=== PATIENT | female | born 1945 | race Caucasian/White ===

== ENCOUNTER 2017-06-17 10:07 | Observation (INO) | payer OTHER ==
--- OUTSIDE RECORDS SUMMARY | 2017-06-17 10:11 | XMS REPORT ---
:1945 [facility] [address] [place] [address] Care Team Providers Name Role Phone HIPOLITO ORR Unavailable Unavailable MITZI UGALDE Unavailable Unavailable DOROTHY MAGALLANES Unavailable Unavailable WILL TINAJERO Unavailable Unavailable Problems This patient has no known problems. Allergies, Adverse Reactions, Alerts This patient has no known allergies or adverse reactions. Medications This patient has no known medications. Results Test Description Test Time Test Comments Text Results Atomic Results Result Comments POCT-GLUCOSE METER 2016-12-16 08:26:00 Test Item Value Reference Range Comments POC-GLUCOSE METER (BEAKER) (test 175 mg/dL 70-110 TESTED AT [facility] [address] [facility] xkwr=1174) [facility] [address] [id number] 07:30:00 Test Item Value Reference Range Comments MAGNESIUM (BEAKER) (test 1.8 mg/dL 1.6-2.6 Specimen slightly hemolyzed aums=657) [id number] 07:30:00 Test Item Value Reference Range Comments PHOSPHORUS (BEAKER) (test 3.2 mg/dL 2.3-4.7 Specimen slightly hemolyzed fagm=240) BASIC METABOLIC [id number] 07:30:00 Test Item Value Reference Range Comments SODIUM (BEAKER) (test 138 meq/L 136-145 vjrh=829) POTASSIUM (BEAKER) (test 4.2 meq/L 3.5-5.1 Specimen slightly enoh=161) hemolyzed CHLORIDE (BEAKER) (test 108 meq/L 98-107 bqiu=415) CO2 (BEAKER) (test 23 meq/L 22-29 eeur=485) BLOOD UREA NITROGEN 6 mg/dL 7-21 (BEAKER) (test slfw=442) CREATININE (BEAKER) (test 0.83 mg/dL 0.57-1.25 Specimen slightly iqmq=845) hemolyzed GLUCOSE RANDOM (BEAKER) 145 mg/dL 70-105 (test lltc=746) CALCIUM (BEAKER) (test 9.4 mg/dL 8.4-10.2 wefy=024) EGFR (BEAKER) (test 68 mL/min/1.73 sq m ESTIMATED GFR IS NOT vlxy=6548) ACCURATE CREATININE CLEARANCE IN PREDICTING GLOMERULAR FILTRATION RATE. ESTIMATED GFR IS NOT APPLICABLE FOR DIALYSIS PATIENTS. CBC W/PLT COUNT & AUTO [id number] 06:50:00 Test Item Value Reference Range Comments WHITE BLOOD CELL COUNT (BEAKER) (test oncu=928) 5.5 K/ L 3.5-10.5 RED BLOOD CELL COUNT (BEAKER) (test ootl=120) 3.98 M/ L 3.93-5.22 HEMOGLOBIN (BEAKER) (test wpva=227) 10.3 GM/DL 11.2-15.7 HEMATOCRIT (BEAKER) (test pehy=168) 36.3 % 34.1-44.9 MEAN CORPUSCULAR VOLUME (BEAKER) (test kswy=105) 91.2 fL 79.4-94.8 MEAN CORPUSCULAR HEMOGLOBIN (BEAKER) (test 25.9 pg 25.6-32.2 umyt=789) MEAN CORPUSCULAR HEMOGLOBIN CONC (BEAKER) (test 28.4 GM/DL 32.2-35.5 dyfy=900) RED CELL DISTRIBUTION WIDTH (BEAKER) (test 16.4 % 11.7-14.4 cjxe=511) PLATELET COUNT (BEAKER) (test pojr=195) 354 K/CU MM 150-450 MEAN PLATELET VOLUME (BEAKER) (test bqoj=229) 9.9 fL 9.4-12.3 NUCLEATED RED BLOOD CELLS (BEAKER) (test 0 /100 WBC 0-0 cter=463) NEUTROPHILS RELATIVE PERCENT (BEAKER) (test 68 % mfvi=081) LYMPHOCYTES RELATIVE PERCENT (BEAKER) (test 14 % hgmg=433) MONOCYTES RELATIVE PERCENT (BEAKER) (test 11 % zlvq=267) EOSINOPHILS RELATIVE PERCENT (BEAKER) (test 6 % nhux=544) BASOPHILS RELATIVE PERCENT (BEAKER) (test 1 % gpff=558) NEUTROPHILS ABSOLUTE COUNT (BEAKER) (test 3.75 K/ L 1.56-6.13 ddwy=389) LYMPHOCYTES ABSOLUTE COUNT (BEAKER) (test 0.80 K/ L 1.18-3.74 yiqx=796) MONOCYTES ABSOLUTE COUNT (BEAKER) (test 0.60 K/ L 0.24-0.36 vwxg=887) EOSINOPHILS ABSOLUTE COUNT (BEAKER) (test 0.33 K/ L 0.04-0.36 mvou=383) BASOPHILS ABSOLUTE COUNT (BEAKER) (test 0.05 K/ L 0.01-0.08 vfcb=170) IMMATURE GRANULOCYTES-RELATIVE PERCENT (BEAKER) 0 % 0-1 (test jqcg=1740) POCT-GLUCOSE [id number] 21:15:00 Test Item Value Reference Range Comments POC-GLUCOSE METER (BEAKER) 246 mg/dL 70-110 TESTED AT [address] (test fece=2733) [place] [address] POCT-GLUCOSE [id number] 17:16:00 Test Item Value Reference Range Comments POC-GLUCOSE METER (BEAKER) 323 mg/dL 70-110 TESTED AT [address] (test ocud=1843) [place] [address] POCT-GLUCOSE [id number] 13:13:00 Test Item Value Reference Range Comments POC-GLUCOSE METER (BEAKER) 250 mg/dL 70-110 TESTED AT [address] (test pyyu=7830) [place] [address] POCT-GLUCOSE [id number] 08:26:00 Test Item Value Reference Range Comments POC-GLUCOSE METER (BEAKER) 261 mg/dL 70-110 TESTED AT [address] (test otgw=7812) [place] [id number] CALCIUM, [id number] 06:39:00 Test Item Value Reference Range Comments CALCIUM IONIZED (BEAKER) (test myar=791) 1.08 mmol/L 1.12-1.27 PH, BLOOD (BEAKER) (test ysiu=7150) 7.47 [id number] 05:53:00 Test Item Value Reference Range Comments PHOSPHORUS (BEAKER) (test isnp=888) 4.1 mg/dL 2.3-4.7 [id number] 05:53:00 Test Item Value Reference Range Comments MAGNESIUM (BEAKER) (test eyif=949) 1.7 mg/dL 1.6-2.6 BASIC METABOLIC [id number] 05:53:00 Test Item Value Reference Range Comments SODIUM (BEAKER) (test 138 meq/L 136-145 tuiu=403) POTASSIUM (BEAKER) (test 4.0 meq/L 3.5-5.1 udlv=327) CHLORIDE (BEAKER) (test 106 meq/L 98-107 snwh=263) CO2 (BEAKER) (test 25 meq/L 22-29 kknu=415) BLOOD UREA NITROGEN 7 mg/dL 7-21 (BEAKER) (test ogih=897) CREATININE (BEAKER) (test 0.92 mg/dL 0.57-1.25 xpga=670) GLUCOSE RANDOM (BEAKER) 213 mg/dL 70-105 (test fpyl=628) CALCIUM (BEAKER) (test 9.4 mg/dL 8.4-10.2 eojb=925) EGFR (BEAKER) (test 60 mL/min/1.73 sq m ESTIMATED GFR IS NOT owxs=6515) ACCURATE CREATININE CLEARANCE IN PREDICTING GLOMERULAR FILTRATION RATE. ESTIMATED GFR IS NOT APPLICABLE FOR DIALYSIS PATIENTS. CBC W/PLT COUNT & AUTO [id number] 05:32:00 Test Item Value Reference Range Comments WHITE BLOOD CELL COUNT (BEAKER) (test klzc=498) 6.9 K/ L 3.5-10.5 RED BLOOD CELL COUNT (BEAKER) (test vrxr=337) 3.90 M/ L 3.93-5.22 HEMOGLOBIN (BEAKER) (test zfgr=298) 10.2 GM/DL 11.2-15.7 HEMATOCRIT (BEAKER) (test hizh=987) 32.9 % 34.1-44.9 MEAN CORPUSCULAR VOLUME (BEAKER) (test ycfm=590) 84.4 fL 79.4-94.8 MEAN CORPUSCULAR HEMOGLOBIN (BEAKER) (test 26.2 pg 25.6-32.2 apmf=386) MEAN CORPUSCULAR HEMOGLOBIN CONC (BEAKER) (test 31.0 GM/DL 32.2-35.5 zqsd=226) RED CELL DISTRIBUTION WIDTH (BEAKER) (test 16.2 % 11.7-14.4 fgyi=806) PLATELET COUNT (BEAKER) (test iokr=561) 415 K/CU MM 150-450 MEAN PLATELET VOLUME (BEAKER) (test pvgc=160) 9.5 fL 9.4-12.3 NUCLEATED RED BLOOD CELLS (BEAKER) (test 0 /100 WBC 0-0 uoad=678) NEUTROPHILS RELATIVE PERCENT (BEAKER) (test 69 % xgnq=548) LYMPHOCYTES RELATIVE PERCENT (BEAKER) (test 14 % enwg=155) MONOCYTES RELATIVE PERCENT (BEAKER) (test 11 % rkph=000) EOSINOPHILS RELATIVE PERCENT (BEAKER) (test 5 % ukmj=929) BASOPHILS RELATIVE PERCENT (BEAKER) (test 1 % scre=510) NEUTROPHILS ABSOLUTE COUNT (BEAKER) (test 4.71 K/ L 1.56-6.13 qdka=507) LYMPHOCYTES ABSOLUTE COUNT (BEAKER) (test 0.98 K/ L 1.18-3.74 whnp=621) MONOCYTES ABSOLUTE COUNT (BEAKER) (test 0.74 K/ L 0.24-0.36 zfsv=605) EOSINOPHILS ABSOLUTE COUNT (BEAKER) (test 0.35 K/ L 0.04-0.36 cjrt=653) BASOPHILS ABSOLUTE COUNT (BEAKER) (test 0.07 K/ L 0.01-0.08 qppu=495) IMMATURE GRANULOCYTES-RELATIVE PERCENT (BEAKER) 0 % 0-1 (test xsvi=9317) POCT-GLUCOSE [id number] 22:58:00 Test Item Value Reference Range Comments POC-GLUCOSE METER (BEAKER) 390 mg/dL 70-110 Notified RN or MD Patient (test sqjc=9558) refused repeat test/TESTED AT [address] [address] POCT-GLUCOSE [id number] 21:18:00 Test Item Value Reference Range Comments POC-GLUCOSE METER (BEAKER) 404 mg/dL 70-110 Notified PITER FELIX/TESTED AT [facility] (test uxpi=9676) [address] [place] [address] POCT-GLUCOSE [id number] 17:45:00 Test Item Value Reference Range Comments POC-GLUCOSE METER (BEAKER) 217 mg/dL 70-110 TESTED AT [address] (test cfnu=1792) [facility] [address] POCT-GLUCOSE [id number] 12:07:00 Test Item Value Reference Range Comments POC-GLUCOSE METER (BEAKER) 209 mg/dL 70-110 TESTED AT [facility] [address] (test lgkz=4950) [facility] [address] HEMOGLOBIN [id number] 07:58:00 Test Item Value Reference Range Comments HEMOGLOBIN A1C (BEAKER) (test pjwb=679) 5.8 % 4.3-6.1 TSH/FREE T4 IF [id number] 05:30:00 Test Item Value Reference Range Comments THYROID STIMULATING HORMONE (BEAKER) (test 1.75 uIU/mL 0.35-4.94 yzbj=163) POCT-GLUCOSE [id number] 05:21:00 Test Item Value Reference Range Comments POC-GLUCOSE METER (BEAKER) 213 mg/dL 70-110 TESTED AT [facility] [address] (test fbpu=0866) [place] [id number] 05:11:00 Test Item Value Reference Range Comments PHOSPHORUS (BEAKER) (test kunf=198) 4.0 mg/dL 2.3-4.7 [id number] 05:11:00 Test Item Value Reference Range Comments MAGNESIUM (BEAKER) (test qdaw=720) 1.7 mg/dL 1.6-2.6 BASIC METABOLIC [id number] 05:11:00 Test Item Value Reference Range Comments SODIUM (BEAKER) (test 138 meq/L 136-145 hcso=127) POTASSIUM (BEAKER) (test 4.3 meq/L 3.5-5.1 vnuo=723) CHLORIDE (BEAKER) (test 104 meq/L 98-107 wdaq=903) CO2 (BEAKER) (test 26 meq/L 22-29 aiub=140) BLOOD UREA NITROGEN 7 mg/dL 7-21 (BEAKER) (test czlb=069) CREATININE (BEAKER) (test 0.93 mg/dL 0.57-1.25 kzny=790) GLUCOSE RANDOM (BEAKER) 173 mg/dL 70-105 (test kibp=535) CALCIUM (BEAKER) (test 9.6 mg/dL 8.4-10.2 xlbr=279) EGFR (BEAKER) (test 60 mL/min/1.73 sq m ESTIMATED GFR IS NOT fxwv=3885) ACCURATE CREATININE CLEARANCE IN PREDICTING GLOMERULAR FILTRATION RATE. ESTIMATED GFR IS NOT APPLICABLE FOR DIALYSIS PATIENTS. LIPID [id number] 05:11:00 Test Item Value Reference Range Comments TRIGLYCERIDES (BEAKER) (test ruzu=429) 197 mg/dL CHOLESTEROL (BEAKER) (test outg=737) 158 mg/dL HDL CHOLESTEROL (BEAKER) (test yshz=997) 29 mg/dL LDL CHOLESTEROL CALCULATED (BEAKER) (test 90 mg/dL iibz=628) Triglyceride Reference Range: Low Risk <150 Borderline 150- 199 High Risk 200-499 Very High Risk >=500Cholesterol Reference Range: Low Risk <200 Borderline 200-239 High Risk > 240HDL Cholesterol Reference Range: Low Risk >=60 High Risk <40LDL Cholesterol Reference Range: Optimal <100 Near Optimal 100-129 Borderline 130-159 High 160-189 Very High >=190CBC W/PLT COUNT & AUTO [id number] 04:48:00 Test Item Value Reference Range Comments WHITE BLOOD CELL COUNT (BEAKER) (test liej=995) 7.0 K/ L 3.5-10.5 RED BLOOD CELL COUNT (BEAKER) (test jbfz=493) 3.91 M/ L 3.93-5.22 HEMOGLOBIN (BEAKER) (test yrnh=343) 10.3 GM/DL 11.2-15.7 HEMATOCRIT (BEAKER) (test cuxu=009) 33.3 % 34.1-44.9 MEAN CORPUSCULAR VOLUME (BEAKER) (test iiag=372) 85.2 fL 79.4-94.8 MEAN CORPUSCULAR HEMOGLOBIN (BEAKER) (test 26.3 pg 25.6-32.2 gedd=963) MEAN CORPUSCULAR HEMOGLOBIN CONC (BEAKER) (test 30.9 GM/DL 32.2-35.5 vihp=642) RED CELL DISTRIBUTION WIDTH (BEAKER) (test 16.1 % 11.7-14.4 ujjj=165) PLATELET COUNT (BEAKER) (test nlrt=152) 473 K/CU MM 150-450 MEAN PLATELET VOLUME (BEAKER) (test efah=600) 9.7 fL 9.4-12.3 NUCLEATED RED BLOOD CELLS (BEAKER) (test 0 /100 WBC 0-0 wapq=222) NEUTROPHILS RELATIVE PERCENT (BEAKER) (test 64 % pczg=493) LYMPHOCYTES RELATIVE PERCENT (BEAKER) (test 18 % fqwp=469) MONOCYTES RELATIVE PERCENT (BEAKER) (test 11 % yjrh=119) EOSINOPHILS RELATIVE PERCENT (BEAKER) (test 5 % nafa=811) BASOPHILS RELATIVE PERCENT (BEAKER) (test 1 % fcdc=037) NEUTROPHILS ABSOLUTE COUNT (BEAKER) (test 4.50 K/ L 1.56-6.13 iodc=852) LYMPHOCYTES ABSOLUTE COUNT (BEAKER) (test 1.29 K/ L 1.18-3.74 zwdg=818) MONOCYTES ABSOLUTE COUNT (BEAKER) (test 0.77 K/ L 0.24-0.36 nbqi=244) EOSINOPHILS ABSOLUTE COUNT (BEAKER) (test 0.38 K/ L 0.04-0.36 sycl=242) BASOPHILS ABSOLUTE COUNT (BEAKER) (test 0.08 K/ L 0.01-0.08 cazz=730) IMMATURE GRANULOCYTES-RELATIVE PERCENT (BEAKER) 0 % 0-1 (test afmv=0239) CALCIUM, [id number] 04:13:00 Test Item Value Reference Range Comments CALCIUM IONIZED (BEAKER) (test bwol=832) 1.15 mmol/L 1.12-1.27 PH, BLOOD (BEAKER) (test ugwq=2110) 7.47 POCT-GLUCOSE [id number] 21:03:00 Test Item Value Reference Range Comments POC-GLUCOSE METER (BEAKER) 220 mg/dL 70-110 TESTED AT [address] (test uvuk=8952) [facility] [address] IRON, TIBC, % SAT. (WITHOUT FERRITIN)2016-12-13 19:01:00 Test Item Value Reference Range Comments IRON (BEAKER) (test epsh=835) 23 ug/dL 40-160 TOTAL IRON BINDING CAPACITY (BEAKER) (test 404 ug/dL 250-450 erih=872) IRON % SATURATION (2) (BEAKER) (test bbrx=0949) 6 % 20-55 POCT-GLUCOSE [id number] 17:23:00 Test Item Value Reference Range Comments POC-GLUCOSE METER (BEAKER) 371 mg/dL 70-110 TESTED AT [address] (test molp=3029) [facility] [address] POCT-GLUCOSE [id number] 05:33:00 Test Item Value Reference Range Comments POC-GLUCOSE METER (BEAKER) 227 mg/dL 70-110 TESTED AT [address] (test rwcg=8689) [facility] [address] POCT-GLUCOSE [id number] 20:59:00 Test Item Value Reference Range Comments POC-GLUCOSE METER (BEAKER) 266 mg/dL 70-110 TESTED AT [address] (test jrld=3907) [facility] [address] POCT-GLUCOSE [id number] 20:58:00 Test Item Value Reference Range Comments POC-GLUCOSE METER (BEAKER) 300 mg/dL 70-110 TESTED AT [address] (test ehka=0271) [facility] [address] POCT-GLUCOSE [id number] 20:58:00 Test Item Value Reference Range Comments POC-GLUCOSE METER (BEAKER) 177 mg/dL 70-110 TESTED AT [address] (test yujz=3085) [facility] [address] HEMORRHAGE IMAGING, [id number] 13:30:00FINAL REPORT PROCEDURE: HEMORRHAGE STUDY with RBCs CPT CODE: 20147 INDICATION: Gastrointestinal Bleeding PROTOCOL: 21.5 mCi of Tc-99m was injected intravenously as labeled autologous red blood cells. Flow images of the abdomen were obtained, followed by serial images for approximately 60 minutes. Additional images were obtained 6 hours after tracer injection. Additional images were obtained 24 hours after injection. FINDINGS: Early images showphysiological tracer distribution in the blood pool. Late images show mild tracer uptake in the right lower abdomen. IMPRESSION: Mild, interval hemorrhage. No specific bleeding site is identified, but the pattern suggests a source in the mid or distal small bowel. Signed: Sean Gayle MDReport Verified Date/Time: 12/12/2016 13:30:53 Reading Location: [address] Reading Room Electronically signed by: SEAN GAYLE MD on 01:30 PMPOCT-GLUCOSE [id number] 11:21:00 Test Item Value Reference Range Comments POC-GLUCOSE METER (BEAKER) 168 mg/dL 70-110 TESTED AT [address] (test ulle=7175) [facility] [address] POCT-GLUCOSE [id number] 11:21:00 Test Item Value Reference Range Comments POC-GLUCOSE METER (BEAKER) 184 mg/dL 70-110 TESTED AT [facility] [address] (test ydre=6424) [address] [facility] [address] BASIC METABOLIC [id number] 05:16:00 Test Item Value Reference Range Comments SODIUM (BEAKER) (test 141 meq/L 135-148 ofyd=571) POTASSIUM (BEAKER) (test 4.3 meq/L 3.6-5.5 kgsa=033) CHLORIDE (BEAKER) (test 105 meq/L 98-106 zbpk=551) CO2 (BEAKER) (test 25 meq/L 20-29 psww=283) BLOOD UREA NITROGEN 13 mg/dL 10-26 (BEAKER) (test scye=294) CREATININE (BEAKER) (test 0.90 mg/dL 0.50-1.20 ckrl=021) GLUCOSE RANDOM (BEAKER) 151 mg/dL 70-110 (test nwgc=513) CALCIUM (BEAKER) (test 9.4 mg/dL 8.5-10.5 zhot=586) EGFR (BEAKER) (test 62 mL/min/1.73 sq m ESTIMATED GFR IS NOT jofi=9167) ACCURATE CREATININE CLEARANCE IN PREDICTING GLOMERULAR FILTRATION RATE. ESTIMATED GFR IS NOT APPLICABLE FOR DIALYSIS PATIENTS. [id number] 05:10:00 Test Item Value Reference Range Comments MAGNESIUM (BEAKER) (test qdfb=841) 2.0 mg/dL 1.5-3.0 CBC W/PLT COUNT & AUTO [id number] 04:57:00 Test Item Value Reference Range Comments WHITE BLOOD CELL COUNT (BEAKER) (test hdlk=691) 8.4 K/ L 4.0-10.0 RED BLOOD CELL COUNT (BEAKER) (test oewf=575) 3.88 M/ L 4.00-5.00 HEMOGLOBIN (BEAKER) (test ejic=698) 10.5 GM/DL 12.0-15.0 HEMATOCRIT (BEAKER) (test yhvs=351) 32.1 % 36.0-45.0 MEAN CORPUSCULAR VOLUME (BEAKER) (test hgku=323) 82.7 fL 82.0-99.0 MEAN CORPUSCULAR HEMOGLOBIN (BEAKER) (test 27.1 pg 27.0-33.0 xbzt=121) MEAN CORPUSCULAR HEMOGLOBIN CONC (BEAKER) (test 32.7 GM/DL 32.0-36.0 uxgp=760) RED CELL DISTRIBUTION WIDTH (BEAKER) (test 18.1 % 10.3-14.2 olfa=343) PLATELET COUNT (BEAKER) (test uzea=850) 527 K/CU MM 150-430 MEAN PLATELET VOLUME (BEAKER) (test nwdj=916) 7.5 fL 6.5-10.5 NUCLEATED RED BLOOD CELLS (BEAKER) (test 0 /100 WBC 0-0 fkse=249) NEUTROPHILS RELATIVE PERCENT (BEAKER) (test 74 % bxhi=167) LYMPHOCYTES RELATIVE PERCENT (BEAKER) (test 13 % nivt=328) MONOCYTES RELATIVE PERCENT (BEAKER) (test 8 % zymc=740) EOSINOPHILS RELATIVE PERCENT (BEAKER) (test 5 % lish=699) BASOPHILS RELATIVE PERCENT (BEAKER) (test 1 % soxh=174) NEUTROPHILS ABSOLUTE COUNT (BEAKER) (test 6.20 K/ L 1.80-8.00 pevo=702) LYMPHOCYTES ABSOLUTE COUNT (BEAKER) (test 1.10 K/ L 1.48-4.50 civm=009) MONOCYTES ABSOLUTE COUNT (BEAKER) (test 0.60 K/ L 0.00-1.30 apbq=229) EOSINOPHILS ABSOLUTE COUNT (BEAKER) (test 0.40 K/ L 0.00-0.50 rljq=673) BASOPHILS ABSOLUTE COUNT (BEAKER) (test 0.10 K/ L 0.00-0.20 lrjj=553) POCT-GLUCOSE [id number] 17:02:00 Test Item Value Reference Range Comments POC-GLUCOSE METER (BEAKER) 177 mg/dL 70-110 TESTED AT [address] (test npmb=4559) [facility] [address] POCT-GLUCOSE [id number] 11:34:00 Test Item Value Reference Range Comments POC-GLUCOSE METER (BEAKER) 207 mg/dL 70-110 TESTED AT [address] (test vlpy=9658) [facility] [address] CBC W/PLT COUNT & AUTO [id number] 10:45:00 Test Item Value Reference Range Comments WHITE BLOOD CELL COUNT (BEAKER) (test nmhx=834) 7.3 K/ L 4.0-10.0 RED BLOOD CELL COUNT (BEAKER) (test djzi=457) 3.03 M/ L 4.00-5.00 HEMOGLOBIN (BEAKER) (test yyee=926) 7.8 GM/DL 12.0-15.0 HEMATOCRIT (BEAKER) (test xldz=832) 24.1 % 36.0-45.0 MEAN CORPUSCULAR VOLUME (BEAKER) (test rrdv=517) 79.6 fL 82.0-99.0 MEAN CORPUSCULAR HEMOGLOBIN (BEAKER) (test 25.7 pg 27.0-33.0 uvja=835) MEAN CORPUSCULAR HEMOGLOBIN CONC (BEAKER) (test 32.3 GM/DL 32.0-36.0 rack=423) RED CELL DISTRIBUTION WIDTH (BEAKER) (test 17.3 % 10.3-14.2 nbdi=367) PLATELET COUNT (BEAKER) (test lgxt=371) 581 K/CU MM 150-430 MEAN PLATELET VOLUME (BEAKER) (test gklx=925) 7.0 fL 6.5-10.5 NUCLEATED RED BLOOD CELLS (BEAKER) (test 0 /100 WBC 0-0 rixo=336) NEUTROPHILS RELATIVE PERCENT (BEAKER) (test 70 % qqjo=213) LYMPHOCYTES RELATIVE PERCENT (BEAKER) (test 17 % ofhc=886) MONOCYTES RELATIVE PERCENT (BEAKER) (test 8 % hhdj=809) EOSINOPHILS RELATIVE PERCENT (BEAKER) (test 5 % bpjs=197) BASOPHILS RELATIVE PERCENT (BEAKER) (test 1 % bwig=766) NEUTROPHILS ABSOLUTE COUNT (BEAKER) (test 5.10 K/ L 1.80-8.00 xaur=315) LYMPHOCYTES ABSOLUTE COUNT (BEAKER) (test 1.20 K/ L 1.48-4.50 rrrj=927) MONOCYTES ABSOLUTE COUNT (BEAKER) (test 0.60 K/ L 0.00-1.30 couc=857) EOSINOPHILS ABSOLUTE COUNT (BEAKER) (test 0.30 K/ L 0.00-0.50 dnyg=229) BASOPHILS ABSOLUTE COUNT (BEAKER) (test 0.10 K/ L 0.00-0.20 hvzo=702) (MANUAL DIFFERENTIAL)2016-12-11 10:45:00 Test Item Value Reference Range Comments TOTAL COUNTED (BEAKER) (test yufk=8183) WBC MORPHOLOGY (BEAKER) (test irxo=931) Normal PLT MORPHOLOGY (BEAKER) (test dacd=825) Normal ANISOCYTOSIS (BEAKER) (test gijs=076) 1+ few HYPOCHROMIA (BEAKER) (test vkow=919) 2+ moderate BASIC METABOLIC [id number] 09:40:00 Test Item Value Reference Range Comments SODIUM (BEAKER) (test 138 meq/L 135-148 uscw=092) POTASSIUM (BEAKER) (test 4.5 meq/L 3.6-5.5 vkxo=767) CHLORIDE (BEAKER) (test 105 meq/L 98-106 dxzn=512) CO2 (BEAKER) (test 25 meq/L 20-29 fepu=374) BLOOD UREA NITROGEN 16 mg/dL 10-26 (BEAKER) (test jiuk=498) CREATININE (BEAKER) (test 1.00 mg/dL 0.50-1.20 ywlw=888) GLUCOSE RANDOM (BEAKER) 168 mg/dL 70-110 (test uczx=951) CALCIUM (BEAKER) (test 9.1 mg/dL 8.5-10.5 imfk=243) EGFR (BEAKER) (test 55 mL/min/1.73 sq m ESTIMATED GFR IS NOT hgbi=8974) ACCURATE CREATININE CLEARANCE IN PREDICTING GLOMERULAR FILTRATION RATE. ESTIMATED GFR IS NOT APPLICABLE FOR DIALYSIS PATIENTS. [id number] 09:39:00 Test Item Value Reference Range Comments PHOSPHORUS (BEAKER) (test viym=994) 3.3 mg/dL 2.5-4.5 [id number] 09:34:00 Test Item Value Reference Range Comments MAGNESIUM (BEAKER) (test yxpt=070) 2.1 mg/dL 1.5-3.0 POCT-GLUCOSE [id number] 06:01:00 Test Item Value Reference Range Comments POC-GLUCOSE METER (BEAKER) 171 mg/dL 70-110 TESTED AT [address] (test rmtv=5445) [address] [facility] [id number] POCT-GLUCOSE [id number] 06:00:00 Test Item Value Reference Range Comments POC-GLUCOSE METER (BEAKER) 148 mg/dL 70-110 TESTED AT [address] (test fzbi=7933) [address] [facility] [id number] URINALYSIS W/ [id number] 05:01:00 Test Item Value Reference Range Comments COLOR (BEAKER) (test kcvy=436) Yellow CLARITY (BEAKER) (test ircv=454) Clear SPECIFIC GRAVITY UA (BEAKER) (test nexb=081) 1.020 1.001-1.035 PH UA (BEAKER) (test eksh=661) 5.5 5.0-8.0 PROTEIN UA (BEAKER) (test znjr=699) Negative Negative GLUCOSE UA (BEAKER) (test wccx=228) Negative Negative KETONES UA (BEAKER) (test caqz=646) Negative Negative BILIRUBIN UA (BEAKER) (test iuha=601) Negative Negative BLOOD UA (BEAKER) (test scuh=671) Negative Negative NITRITE UA (BEAKER) (test yfss=827) Negative Negative LEUKOCYTE ESTERASE UA (BEAKER) (test Negative Negative iddq=709) UROBILINOGEN UA (BEAKER) (test qluu=276) 0.2 mg/dL 0.2-1.0 BACTERIA (BEAKER) (test qlmu=537) Occasional RBC UA-MANUAL (BEAKER) (test ihek=3552) None Seen /HPF WBC UA-MANUAL (BEAKER) (test hblr=5080) <5 /HPF SQUAMOUS EPITHELIAL MANUAL (BEAKER) (test <5 /HPF jbjx=1405) SOURCE(BEAKER) (test ahbn=0097) RAD, CHEST, 1 VIEW, NON [id number] 21:04:00Reason for exam:->coughShould this be performed at the bedside?->YesFINAL REPORT AP view of the chest dated 12/10/2016 COMPARISON: November 25, 2016 CLINICAL INFORMATION: cough Comment: Heart is normal in size. Pulmonary vasculature is unremarkable. Lungs are clear. No pulmonary infiltrate or pleural effusion is present. Spinal stimulating deviceis seen overlying the mid thoracic spine. Impression: No active cardiopulmonary disease or intervalchange. Signed: Sam Sanchez Verified Date/Time: 12/10/2016 21:04:27 Reading Location: [address] Consult Reading Room OCCULT BLOOD, [id number] 20:24:00 Test Item Value Reference Range Comments FECAL OCCULT BLOOD (BEAKER) (test xdtm=960) Positive Negative CBC W/PLT COUNT & AUTO [id number] 20:10:00 Test Item Value Reference Range Comments WHITE BLOOD CELL COUNT (BEAKER) (test vqom=744) 14.8 K/ L 4.0-10.0 RED BLOOD CELL COUNT (BEAKER) (test xefk=843) 3.09 M/ L 4.00-5.00 HEMOGLOBIN (BEAKER) (test bxfs=316) 7.8 GM/DL 12.0-15.0 HEMATOCRIT (BEAKER) (test vaxd=120) 24.3 % 36.0-45.0 MEAN CORPUSCULAR VOLUME (BEAKER) (test jiit=441) 78.7 fL 82.0-99.0 MEAN CORPUSCULAR HEMOGLOBIN (BEAKER) (test 25.2 pg 27.0-33.0 rgql=914) MEAN CORPUSCULAR HEMOGLOBIN CONC (BEAKER) (test 32.1 GM/DL 32.0-36.0 sfno=110) RED CELL DISTRIBUTION WIDTH (BEAKER) (test 17.7 % 10.3-14.2 mfty=443) PLATELET COUNT (BEAKER) (test emvl=641) 784 K/CU MM 150-430 MEAN PLATELET VOLUME (BEAKER) (test lqkr=686) 7.7 fL 6.5-10.5 NUCLEATED RED BLOOD CELLS (BEAKER) (test 0 /100 WBC 0-0 abse=017) NEUTROPHILS RELATIVE PERCENT (BEAKER) (test 80 % vopk=139) LYMPHOCYTES RELATIVE PERCENT (BEAKER) (test 12 % ctlc=855) MONOCYTES RELATIVE PERCENT (BEAKER) (test 6 % xsjo=475) EOSINOPHILS RELATIVE PERCENT (BEAKER) (test 2 % himn=018) BASOPHILS RELATIVE PERCENT (BEAKER) (test 1 % bqxt=743) NEUTROPHILS ABSOLUTE COUNT (BEAKER) (test 11.80 K/ L 1.80-8.00 fext=927) LYMPHOCYTES ABSOLUTE COUNT (BEAKER) (test 1.70 K/ L 1.48-4.50 vjlf=992) MONOCYTES ABSOLUTE COUNT (BEAKER) (test 0.80 K/ L 0.00-1.30 qeml=482) EOSINOPHILS ABSOLUTE COUNT (BEAKER) (test 0.30 K/ L 0.00-0.50 zwux=158) BASOPHILS ABSOLUTE COUNT (BEAKER) (test 0.10 K/ L 0.00-0.20 aeiq=430) (MANUAL DIFFERENTIAL)2016-12-10 20:10:00 Test Item Value Reference Range Comments TOTAL COUNTED (BEAKER) (test ywef=1004) WBC MORPHOLOGY (BEAKER) (test dkvz=975) Normal LARGE PLT(BEAKER) (test vfmv=3344) Present GIANT PLATELETS (BEAKER) (test hcnr=346) Present ANISOCYTOSIS (BEAKER) (test fwak=122) 1+ few HYPOCHROMIA (BEAKER) (test huwy=700) 2+ moderate POLYCHROMATOPHILLIC RBCS(BEAKER) (test kcui=059) 1+ few [id number] 20:07:00 Test Item Value Reference Range Comments PROTIME (BEAKER) (test etkg=572) 9.8 seconds 9.3-12.0 INR (BEAKER) (test kzkj=365) 0.9 <=5.9 PARTIAL THROMBOPLASTIN TIME (BEAKER) (test 20.2 seconds 23.0-35.0 dopq=858) RECOMMENDED COUMADIN/WARFARIN INR THERAPY RANGESSTANDARD DOSE: 2.0 - 3.0 Includes: PROPHYLAXIS forvenous thrombosis, systemic embolization; TREATMENT for venous thrombosis and/or pulmonary embolus.HIGH RISK: Target INR is 2.5-3.5 for patients with mechanical heart valves.[id number] 20:07:00 Test Item Value Reference Range Comments LIPASE (BEAKER) (test mzqn=646) 37 U/L 6-51 COMPREHENSIVE METABOLIC [id number] 20:06:00 Test Item Value Reference Range Comments TOTAL PROTEIN (BEAKER) 7.2 gm/dL 6.0-8.5 (test tsds=347) ALBUMIN (BEAKER) (test 4.1 g/dL 3.5-5.0 tgnx=1039) ALKALINE PHOSPHATASE 78 U/L 30-115 (BEAKER) (test gyva=397) BILIRUBIN TOTAL (BEAKER) 0.4 mg/dL 0.1-1.2 (test xzvm=711) SODIUM (BEAKER) (test 136 meq/L 135-148 txcu=690) POTASSIUM (BEAKER) (test 4.5 meq/L 3.6-5.5 mnwa=132) CHLORIDE (BEAKER) (test 102 meq/L 98-106 zkvd=103) CO2 (BEAKER) (test 21 meq/L 20-29 zlkd=468) BLOOD UREA NITROGEN 20 mg/dL 10-26 (BEAKER) (test jsff=370) CREATININE (BEAKER) (test 1.20 mg/dL 0.50-1.20 gzbk=155) GLUCOSE RANDOM (BEAKER) 215 mg/dL 70-110 (test eqfv=177) CALCIUM (BEAKER) (test 9.7 mg/dL 8.5-10.5 jvnn=089) AST (SGOT) (BEAKER) (test 19 U/L 5-40 raia=339) ALT (SGPT) (BEAKER) (test 13 U/L 5-50 cmvg=275) EGFR (BEAKER) (test 44 mL/min/1.73 sq m ESTIMATED GFR IS NOT xaxb=3974) ACCURATE CREATININE CLEARANCE IN PREDICTING GLOMERULAR FILTRATION RATE. ESTIMATED GFR IS NOT APPLICABLE FOR DIALYSIS PATIENTS. BLOOD [id number] 06:00:00 Test Item Value Reference Range Comments CULTURE (BEAKER) (test cqea=7415) No growth in 5 days BLOOD [id number] 06:00:00 Test Item Value Reference Range Comments CULTURE (BEAKER) (test cbfo=0085) No growth in 5 days POCT-GLUCOSE [id number] 12:19:00 Test Item Value Reference Range Comments POC-GLUCOSE METER (BEAKER) 132 mg/dL 70-110 TESTED AT [address] (test mmij=3699) [place] [id number] POCT-GLUCOSE [id number] 11:19:00 Test Item Value Reference Range Comments POC-GLUCOSE METER (BEAKER) 222 mg/dL 70-110 TESTED AT [address] (test vhas=1127) [place] [id number] POCT-GLUCOSE [id number] 07:21:00 Test Item Value Reference Range Comments POC-GLUCOSE METER (BEAKER) 309 mg/dL 70-110 Notified PITER FELIX/TESTED AT [facility] (test coib=2463) [address] [place], [place] [id number] CBC W/PLT COUNT & AUTO [id number] 05:52:00 Test Item Value Reference Range Comments WHITE BLOOD CELL COUNT (BEAKER) (test csgf=013) 6.8 K/ L 3.5-10.5 RED BLOOD CELL COUNT (BEAKER) (test ltbx=973) 3.35 M/ L 3.93-5.22 HEMOGLOBIN (BEAKER) (test etwd=178) 8.8 GM/DL 11.2-15.7 HEMATOCRIT (BEAKER) (test wpwf=231) 29.2 % 34.1-44.9 MEAN CORPUSCULAR VOLUME (BEAKER) (test tfhr=507) 87.2 fL 79.4-94.8 MEAN CORPUSCULAR HEMOGLOBIN (BEAKER) (test 26.3 pg 25.6-32.2 eyny=586) MEAN CORPUSCULAR HEMOGLOBIN CONC (BEAKER) (test 30.1 GM/DL 32.2-35.5 jzbl=071) RED CELL DISTRIBUTION WIDTH (BEAKER) (test 14.8 % 11.7-14.4 zqlc=145) PLATELET COUNT (BEAKER) (test mueq=985) 285 K/CU MM 150-450 MEAN PLATELET VOLUME (BEAKER) (test iywa=440) 10.4 fL 9.4-12.3 NUCLEATED RED BLOOD CELLS (BEAKER) (test 0 /100 WBC 0-0 xesc=684) NEUTROPHILS RELATIVE PERCENT (BEAKER) (test 69 % xzsa=363) LYMPHOCYTES RELATIVE PERCENT (BEAKER) (test 15 % ztaj=061) MONOCYTES RELATIVE PERCENT (BEAKER) (test 9 % rnlz=651) EOSINOPHILS RELATIVE PERCENT (BEAKER) (test 6 % fgzc=856) BASOPHILS RELATIVE PERCENT (BEAKER) (test 1 % edbj=721) NEUTROPHILS ABSOLUTE COUNT (BEAKER) (test 4.66 K/ L 1.56-6.13 njnx=538) LYMPHOCYTES ABSOLUTE COUNT (BEAKER) (test 1.02 K/ L 1.18-3.74 rgqy=519) MONOCYTES ABSOLUTE COUNT (BEAKER) (test 0.61 K/ L 0.24-0.36 uglx=252) EOSINOPHILS ABSOLUTE COUNT (BEAKER) (test 0.39 K/ L 0.04-0.36 tzpe=189) BASOPHILS ABSOLUTE COUNT (BEAKER) (test 0.04 K/ L 0.01-0.08 mfjw=289) IMMATURE GRANULOCYTES-RELATIVE PERCENT (BEAKER) 0 % 0-1 (test oyor=6848) POCT-GLUCOSE [id number] 21:36:00 Test Item Value Reference Range Comments POC-GLUCOSE METER (BEAKER) 284 mg/dL 70-110 TESTED AT [address] (test isid=5910) [facility] [address] POCT-GLUCOSE [id number] 17:03:00 Test Item Value Reference Range Comments POC-GLUCOSE METER (BEAKER) 394 mg/dL 70-110 Notified PITER FELIX/TESTED AT [facility] (test faqu=4923) [address] [place] [address] POCT-GLUCOSE [id number] 11:47:00 Test Item Value Reference Range Comments POC-GLUCOSE METER (BEAKER) 332 mg/dL 70-110 Notified PITER FELIX/TESTED AT [facility] (test zpla=5792) [address] [place] [address] POCT-GLUCOSE [id number] 07:19:00 Test Item Value Reference Range Comments POC-GLUCOSE METER (BEAKER) 350 mg/dL 70-110 Notified PITER FELIX/TESTED AT [facility] (test onde=9794) [address] [place] [address] BASIC METABOLIC [id number] 05:27:00 Test Item Value Reference Range Comments SODIUM (BEAKER) (test 137 meq/L 136-145 feib=974) POTASSIUM (BEAKER) (test 4.1 meq/L 3.5-5.1 nzma=616) CHLORIDE (BEAKER) (test 106 meq/L 98-107 viva=721) CO2 (BEAKER) (test 23 meq/L 22-29 qaac=694) BLOOD UREA NITROGEN 9 mg/dL 7-21 (BEAKER) (test xeqx=565) CREATININE (BEAKER) (test 0.85 mg/dL 0.57-1.25 vkfu=510) GLUCOSE RANDOM (BEAKER) 284 mg/dL 70-105 (test tbuo=892) CALCIUM (BEAKER) (test 8.9 mg/dL 8.4-10.2 vykx=918) EGFR (BEAKER) (test 66 mL/min/1.73 sq m ESTIMATED GFR IS NOT vtmg=4019) ACCURATE CREATININE CLEARANCE IN PREDICTING GLOMERULAR FILTRATION RATE. ESTIMATED GFR IS NOT APPLICABLE FOR DIALYSIS PATIENTS. CBC W/PLT COUNT & AUTO [id number] 05:05:00 Test Item Value Reference Range Comments WHITE BLOOD CELL COUNT (BEAKER) (test dvsj=641) 5.7 K/ L 3.5-10.5 RED BLOOD CELL COUNT (BEAKER) (test chlw=711) 3.10 M/ L 3.93-5.22 HEMOGLOBIN (BEAKER) (test cbrh=550) 8.3 GM/DL 11.2-15.7 HEMATOCRIT (BEAKER) (test lpta=175) 26.9 % 34.1-44.9 MEAN CORPUSCULAR VOLUME (BEAKER) (test wamt=494) 86.8 fL 79.4-94.8 MEAN CORPUSCULAR HEMOGLOBIN (BEAKER) (test 26.8 pg 25.6-32.2 vmno=851) MEAN CORPUSCULAR HEMOGLOBIN CONC (BEAKER) (test 30.9 GM/DL 32.2-35.5 xufm=709) RED CELL DISTRIBUTION WIDTH (BEAKER) (test 14.8 % 11.7-14.4 afll=401) PLATELET COUNT (BEAKER) (test rmpp=902) 254 K/CU MM 150-450 MEAN PLATELET VOLUME (BEAKER) (test lcqg=649) 10.6 fL 9.4-12.3 NUCLEATED RED BLOOD CELLS (BEAKER) (test 0 /100 WBC 0-0 iioh=662) NEUTROPHILS RELATIVE PERCENT (BEAKER) (test 69 % wlfq=947) LYMPHOCYTES RELATIVE PERCENT (BEAKER) (test 16 % nzzu=041) MONOCYTES RELATIVE PERCENT (BEAKER) (test 8 % enew=330) EOSINOPHILS RELATIVE PERCENT (BEAKER) (test 5 % jpkz=843) BASOPHILS RELATIVE PERCENT (BEAKER) (test 1 % gfyt=726) NEUTROPHILS ABSOLUTE COUNT (BEAKER) (test 3.92 K/ L 1.56-6.13 nygf=623) LYMPHOCYTES ABSOLUTE COUNT (BEAKER) (test 0.92 K/ L 1.18-3.74 vjgk=003) MONOCYTES ABSOLUTE COUNT (BEAKER) (test 0.46 K/ L 0.24-0.36 pgua=675) EOSINOPHILS ABSOLUTE COUNT (BEAKER) (test 0.30 K/ L 0.04-0.36 qffj=763) BASOPHILS ABSOLUTE COUNT (BEAKER) (test 0.05 K/ L 0.01-0.08 frji=243) IMMATURE GRANULOCYTES-RELATIVE PERCENT (BEAKER) 0 % 0-1 (test hgzo=0442) POCT-GLUCOSE [id number] 22:29:00 Test Item Value Reference Range Comments POC-GLUCOSE METER (BEAKER) 256 mg/dL 70-110 TESTED AT [address] (test vztn=5791) [place] [address] POCT-GLUCOSE [id number] 18:52:00 Test Item Value Reference Range Comments POC-GLUCOSE METER (BEAKER) 366 mg/dL 70-110 Notified PITER FELIX/TESTED AT [facility] (test vjoj=3527) [address] [place] [address] POCT-GLUCOSE [id number] 12:02:00 Test Item Value Reference Range Comments POC-GLUCOSE METER (BEAKER) 399 mg/dL 70-110 Notified PITER FELIX/TESTED AT [facility] (test acym=6123) [address] [place] [address] POCT-GLUCOSE [id number] 09:06:00 Test Item Value Reference Range Comments POC-GLUCOSE METER (BEAKER) 236 mg/dL 70-110 TESTED AT [address] (test xssn=4370) [place] [id number] POCT-GLUCOSE [id number] 08:28:00 Test Item Value Reference Range Comments POC-GLUCOSE METER (BEAKER) 271 mg/dL 70-110 TESTED AT [address] (test zpch=3537) [place] [address] POCT-GLUCOSE [id number] 06:31:00 Test Item Value Reference Range Comments POC-GLUCOSE METER (BEAKER) 236 mg/dL 70-110 TESTED AT [address] (test zvco=0424) [place] [address] BASIC METABOLIC [id number] 05:14:00 Test Item Value Reference Range Comments SODIUM (BEAKER) (test 139 meq/L 136-145 bomc=436) POTASSIUM (BEAKER) (test 4.2 meq/L 3.5-5.1 ctcl=962) CHLORIDE (BEAKER) (test 106 meq/L 98-107 vxkc=654) CO2 (BEAKER) (test 27 meq/L 22-29 piyy=538) BLOOD UREA NITROGEN 9 mg/dL 7-21 (BEAKER) (test knjm=157) CREATININE (BEAKER) (test 0.93 mg/dL 0.57-1.25 fwmv=911) GLUCOSE RANDOM (BEAKER) 257 mg/dL 70-105 (test hgel=140) CALCIUM (BEAKER) (test 8.9 mg/dL 8.4-10.2 qhhf=386) EGFR (BEAKER) (test 60 mL/min/1.73 sq m ESTIMATED GFR IS NOT bkzz=2910) ACCURATE CREATININE CLEARANCE IN PREDICTING GLOMERULAR FILTRATION RATE. ESTIMATED GFR IS NOT APPLICABLE FOR DIALYSIS PATIENTS. HEMOGLOBIN AND [id number] 05:02:00 Test Item Value Reference Range Comments HEMOGLOBIN (BEAKER) (test mfzv=024) 7.9 GM/DL 11.2-15.7 HEMATOCRIT (BEAKER) (test ppsk=949) 25.5 % 34.1-44.9 POCT-GLUCOSE [id number] 22:05:00 Test Item Value Reference Range Comments POC-GLUCOSE METER (BEAKER) 235 mg/dL 70-110 TESTED AT [address] (test khes=6717) [place] [address] POCT-GLUCOSE [id number] 21:56:00 Test Item Value Reference Range Comments POC-GLUCOSE METER (BEAKER) 274 mg/dL 70-110 TESTED AT [address] (test ysdo=0984) [place] [address] HEMOGLOBIN AND [id number] 21:00:00 Test Item Value Reference Range Comments HEMOGLOBIN (BEAKER) (test rxov=712) 7.9 GM/DL 11.2-15.7 HEMATOCRIT (BEAKER) (test mcwv=009) 26.1 % 34.1-44.9 POCT-GLUCOSE [id number] 17:28:00 Test Item Value Reference Range Comments POC-GLUCOSE METER (BEAKER) 291 mg/dL 70-110 TESTED AT [address] (test uccn=4147) [place] [address] VANCOMYCIN LEVEL, [id number] 14:15:00 Test Item Value Reference Range Comments VANCOMYCIN TROUGH (BEAKER) (test vufi=448) 18.1 ug/mL 10.0-20.0 HEMOGLOBIN AND [id number] 13:53:00 Test Item Value Reference Range Comments HEMOGLOBIN (BEAKER) (test qgzc=757) 8.6 GM/DL 11.2-15.7 HEMATOCRIT (BEAKER) (test kpin=644) 28.0 % 34.1-44.9 POCT-GLUCOSE [id number] 06:09:00 Test Item Value Reference Range Comments POC-GLUCOSE METER (BEAKER) 205 mg/dL 70-110 TESTED AT [facility] [address] [facility] (test eihi=1525) [facility] [address] BASIC METABOLIC [id number] 03:51:00 Test Item Value Reference Range Comments SODIUM (BEAKER) (test 134 meq/L 136-145 uccd=366) POTASSIUM (BEAKER) (test 4.4 meq/L 3.5-5.1 Specimen slightly rvbl=144) hemolyzed CHLORIDE (BEAKER) (test 105 meq/L 98-107 tduh=075) CO2 (BEAKER) (test 22 meq/L 22-29 aiwu=814) BLOOD UREA NITROGEN 8 mg/dL 7-21 (BEAKER) (test sxcz=209) CREATININE (BEAKER) (test 0.96 mg/dL 0.57-1.25 Specimen slightly xfeu=228) hemolyzed GLUCOSE RANDOM (BEAKER) 196 mg/dL 70-105 (test ruty=258) CALCIUM (BEAKER) (test 8.4 mg/dL 8.4-10.2 wkyy=754) EGFR (BEAKER) (test 58 mL/min/1.73 sq m ESTIMATED GFR IS NOT escs=2995) ACCURATE CREATININE CLEARANCE IN PREDICTING GLOMERULAR FILTRATION RATE. ESTIMATED GFR IS NOT APPLICABLE FOR DIALYSIS PATIENTS. CBC W/PLT COUNT & AUTO [id number] 03:28:00 Test Item Value Reference Range Comments WHITE BLOOD CELL COUNT (BEAKER) (test spuh=229) 6.2 K/ L 3.5-10.5 RED BLOOD CELL COUNT (BEAKER) (test eitx=356) 2.95 M/ L 3.93-5.22 HEMOGLOBIN (BEAKER) (test liul=427) 7.9 GM/DL 11.2-15.7 HEMATOCRIT (BEAKER) (test ytsu=985) 25.4 % 34.1-44.9 MEAN CORPUSCULAR VOLUME (BEAKER) (test fhcl=969) 86.1 fL 79.4-94.8 MEAN CORPUSCULAR HEMOGLOBIN (BEAKER) (test 26.8 pg 25.6-32.2 yypc=079) MEAN CORPUSCULAR HEMOGLOBIN CONC (BEAKER) (test 31.1 GM/DL 32.2-35.5 hybd=952) RED CELL DISTRIBUTION WIDTH (BEAKER) (test 15.2 % 11.7-14.4 tbpe=340) PLATELET COUNT (BEAKER) (test tndl=914) 256 K/CU MM 150-450 MEAN PLATELET VOLUME (BEAKER) (test uxxq=128) 9.7 fL 9.4-12.3 NUCLEATED RED BLOOD CELLS (BEAKER) (test 0 /100 WBC 0-0 losq=002) NEUTROPHILS RELATIVE PERCENT (BEAKER) (test 71 % rvux=564) LYMPHOCYTES RELATIVE PERCENT (BEAKER) (test 12 % fjya=243) MONOCYTES RELATIVE PERCENT (BEAKER) (test 11 % ojyo=883) EOSINOPHILS RELATIVE PERCENT (BEAKER) (test 6 % hahw=172) BASOPHILS RELATIVE PERCENT (BEAKER) (test 1 % wykk=386) NEUTROPHILS ABSOLUTE COUNT (BEAKER) (test 4.40 K/ L 1.56-6.13 ghfm=461) LYMPHOCYTES ABSOLUTE COUNT (BEAKER) (test 0.72 K/ L 1.18-3.74 nlxb=265) MONOCYTES ABSOLUTE COUNT (BEAKER) (test 0.68 K/ L 0.24-0.36 jjgh=087) EOSINOPHILS ABSOLUTE COUNT (BEAKER) (test 0.38 K/ L 0.04-0.36 eihd=628) BASOPHILS ABSOLUTE COUNT (BEAKER) (test 0.04 K/ L 0.01-0.08 faiy=406) IMMATURE GRANULOCYTES-RELATIVE PERCENT (BEAKER) 0 % 0-1 (test aktz=5691) POCT-GLUCOSE [id number] 00:46:00 Test Item Value Reference Range Comments POC-GLUCOSE METER (BEAKER) 331 mg/dL 70-110 TESTED AT [facility] [address] [facility] (test vzhm=2365) [facility] [address] HEMOGLOBIN AND [id number] 23:35:00 Test Item Value Reference Range Comments HEMOGLOBIN (BEAKER) (test qlbj=255) 8.0 GM/DL 11.2-15.7 HEMATOCRIT (BEAKER) (test zgxr=528) 24.9 % 34.1-44.9 POCT-GLUCOSE [id number] 18:09:00 Test Item Value Reference Range Comments POC-GLUCOSE METER (BEAKER) 391 mg/dL 70-110 Notified PITER FELIX/TESTED AT [facility] (test bjel=2941) [facility] [address] HEMOGLOBIN AND [id number] 16:39:00 Test Item Value Reference Range Comments HEMOGLOBIN (BEAKER) (test bmkb=862) 6.7 GM/DL 11.2-15.7 HEMATOCRIT (BEAKER) (test pplr=010) 22.4 % 34.1-44.9 POCT-GLUCOSE [id number] 12:39:00 Test Item Value Reference Range Comments POC-GLUCOSE METER (BEAKER) 238 mg/dL 70-110 TESTED AT [place] [address] [facility] (test lccb=5003) [facility] [address] HEMOGLOBIN AND [id number] 11:15:00 Test Item Value Reference Range Comments HEMOGLOBIN (BEAKER) (test xqdg=940) 7.5 GM/DL 11.2-15.7 HEMATOCRIT (BEAKER) (test bdtm=383) 24.9 % 34.1-44.9 CBC W/PLT COUNT & AUTO [id number] 07:49:00 Test Item Value Reference Range Comments WHITE BLOOD CELL COUNT (BEAKER) (test elwi=555) 12.0 K/ L 3.5-10.5 RED BLOOD CELL COUNT (BEAKER) (test sgzg=420) 2.12 M/ L 3.93-5.22 HEMOGLOBIN (BEAKER) (test upwz=841) 5.5 GM/DL 11.2-15.7 HEMATOCRIT (BEAKER) (test xfku=360) 18.8 % 34.1-44.9 MEAN CORPUSCULAR VOLUME (BEAKER) (test hwqf=510) 88.7 fL 79.4-94.8 MEAN CORPUSCULAR HEMOGLOBIN (BEAKER) (test 25.9 pg 25.6-32.2 omlc=012) MEAN CORPUSCULAR HEMOGLOBIN CONC (BEAKER) (test 29.3 GM/DL 32.2-35.5 amzt=781) RED CELL DISTRIBUTION WIDTH (BEAKER) (test 16.0 % 11.7-14.4 hyzn=565) PLATELET COUNT (BEAKER) (test pkbe=146) 301 K/CU MM 150-450 MEAN PLATELET VOLUME (BEAKER) (test arkn=467) 10.3 fL 9.4-12.3 NUCLEATED RED BLOOD CELLS (BEAKER) (test 0 /100 WBC 0-0 wgqp=309) NEUTROPHILS RELATIVE PERCENT (BEAKER) (test 89 % bzzs=867) LYMPHOCYTES RELATIVE PERCENT (BEAKER) (test 4 % xvgd=585) MONOCYTES RELATIVE PERCENT (BEAKER) (test 5 % roin=686) EOSINOPHILS RELATIVE PERCENT (BEAKER) (test 1 % updt=827) BASOPHILS RELATIVE PERCENT (BEAKER) (test 0 % fuhm=137) NEUTROPHILS ABSOLUTE COUNT (BEAKER) (test 10.60 K/ L 1.56-6.13 zoed=600) LYMPHOCYTES ABSOLUTE COUNT (BEAKER) (test 0.50 K/ L 1.18-3.74 qodo=476) MONOCYTES ABSOLUTE COUNT (BEAKER) (test 0.64 K/ L 0.24-0.36 ptcl=256) EOSINOPHILS ABSOLUTE COUNT (BEAKER) (test 0.14 K/ L 0.04-0.36 ofck=872) BASOPHILS ABSOLUTE COUNT (BEAKER) (test 0.02 K/ L 0.01-0.08 dzqb=443) IMMATURE GRANULOCYTES-RELATIVE PERCENT (BEAKER) 0 % 0-1 (test vxay=5529) POCT-GLUCOSE [id number] 06:45:00 Test Item Value Reference Range Comments POC-GLUCOSE METER (BEAKER) 205 mg/dL 70-110 TESTED AT [facility] [address] [facility] (test iwef=1148) [facility] [address] LACTIC ACID, VENOUS, WHOLE [id number] 01:37:00 Test Item Value Reference Range Comments LACTATE BLOOD VENOUS (2) (BEAKER) (test 1.9 mmol/L 0.5-2.2 jhcz=5223) Effective 07/31/2015: Units/Reference Range ChangeNew: 0.5-2.2 mmol/L Previous: 5 -20 mg/dLCOMPREHENSIVE METABOLIC [id number] 00:19:00 Test Item Value Reference Range Comments TOTAL PROTEIN (BEAKER) 6.8 gm/dL 6.0-8.3 (test ccxi=353) ALBUMIN (BEAKER) (test 3.9 g/dL 3.5-5.0 zhij=0879) ALKALINE PHOSPHATASE 78 U/L 40-150 (BEAKER) (test koxb=522) BILIRUBIN TOTAL (BEAKER) 0.5 mg/dL 0.2-1.2 (test iesh=514) SODIUM (BEAKER) (test 140 meq/L 136-145 ichy=751) POTASSIUM (BEAKER) (test 4.3 meq/L 3.5-5.1 civa=220) CHLORIDE (BEAKER) (test 107 meq/L 98-107 jonv=194) CO2 (BEAKER) (test 21 meq/L 22-29 nruq=942) BLOOD UREA NITROGEN 12 mg/dL 7-21 (BEAKER) (test khzf=856) CREATININE (BEAKER) (test 1.18 mg/dL 0.57-1.25 mkos=663) GLUCOSE RANDOM (BEAKER) 178 mg/dL 70-105 (test ojbe=972) CALCIUM (BEAKER) (test 9.2 mg/dL 8.4-10.2 kjbm=051) AST (SGOT) (BEAKER) (test 15 U/L 5-34 pont=469) ALT (SGPT) (BEAKER) (test 14 U/L 6-55 djcj=676) EGFR (BEAKER) (test 45 mL/min/1.73 sq m ESTIMATED GFR IS NOT hyrs=6795) ACCURATE CREATININE CLEARANCE IN PREDICTING GLOMERULAR FILTRATION RATE. ESTIMATED GFR IS NOT APPLICABLE FOR DIALYSIS PATIENTS. [id number] 00:17:00 Test Item Value Reference Range Comments PHOSPHORUS (BEAKER) (test qqqb=674) 3.2 mg/dL 2.3-4.7 [id number] 00:17:00 Test Item Value Reference Range Comments MAGNESIUM (BEAKER) (test mddn=858) 2.1 mg/dL 1.6-2.6 POCT-GLUCOSE [id number] 00:17:00 Test Item Value Reference Range Comments POC-GLUCOSE METER (BEAKER) 200 mg/dL 70-110 TESTED AT [facility] [address] [facility] (test lexp=9708) [facility] [address] PROTHROMBIN [id number] 00:07:00 Test Item Value Reference Range Comments PROTIME (BEAKER) (test kavd=975) 16.1 seconds 11.7-14.7 INR (BEAKER) (test epeu=617) 1.3 <=5.9 RECOMMENDED COUMADIN/WARFARIN INR THERAPY RANGESSTANDARD DOSE: 2.0 - 3.0 Includes: PROPHYLAXIS forvenous thrombosis, systemic embolization; TREATMENT for venous thrombosis and/or pulmonary embolus.HIGH RISK: Target INR is 2.5-3.5 for patients with mechanical heart valves.CBC W/PLT COUNT & AUTO [id number] 00:03:00 Test Item Value Reference Range Comments WHITE BLOOD CELL COUNT (BEAKER) (test szwb=748) 14.3 K/ L 3.5-10.5 RED BLOOD CELL COUNT (BEAKER) (test zvnu=447) 2.61 M/ L 3.93-5.22 HEMOGLOBIN (BEAKER) (test zslf=788) 6.9 GM/DL 11.2-15.7 HEMATOCRIT (BEAKER) (test rmuo=582) 23.6 % 34.1-44.9 MEAN CORPUSCULAR VOLUME (BEAKER) (test pkvf=887) 90.4 fL 79.4-94.8 MEAN CORPUSCULAR HEMOGLOBIN (BEAKER) (test 26.4 pg 25.6-32.2 mdxm=586) MEAN CORPUSCULAR HEMOGLOBIN CONC (BEAKER) (test 29.2 GM/DL 32.2-35.5 grdg=206) RED CELL DISTRIBUTION WIDTH (BEAKER) (test 15.9 % 11.7-14.4 ivra=240) PLATELET COUNT (BEAKER) (test jiew=477) 392 K/CU MM 150-450 MEAN PLATELET VOLUME (BEAKER) (test qnyt=845) 10.0 fL 9.4-12.3 NUCLEATED RED BLOOD CELLS (BEAKER) (test 0 /100 WBC 0-0 bibg=779) NEUTROPHILS RELATIVE PERCENT (BEAKER) (test 87 % rbtw=295) LYMPHOCYTES RELATIVE PERCENT (BEAKER) (test 9 % jahv=334) MONOCYTES RELATIVE PERCENT (BEAKER) (test 2 % skzx=344) EOSINOPHILS RELATIVE PERCENT (BEAKER) (test 1 % puwu=089) BASOPHILS RELATIVE PERCENT (BEAKER) (test 0 % lmid=363) NEUTROPHILS ABSOLUTE COUNT (BEAKER) (test 12.44 K/ L 1.56-6.13 bvcz=354) LYMPHOCYTES ABSOLUTE COUNT (BEAKER) (test 1.24 K/ L 1.18-3.74 dtpr=423) MONOCYTES ABSOLUTE COUNT (BEAKER) (test 0.30 K/ L 0.24-0.36 rhdg=583) EOSINOPHILS ABSOLUTE COUNT (BEAKER) (test 0.18 K/ L 0.04-0.36 lntn=801) BASOPHILS ABSOLUTE COUNT (BEAKER) (test 0.05 K/ L 0.01-0.08 dydv=701) IMMATURE GRANULOCYTES-RELATIVE PERCENT (BEAKER) 1 % 0-1 (test cqeo=5067) POCT-GLUCOSE [id number] 11:41:00 Test Item Value Reference Range Comments POC-GLUCOSE METER (BEAKER) 259 mg/dL 70-110 TESTED AT [facility] [address] [facility] (test vfig=0642) [facility] [address] [id number] 07:35:00 Test Item Value Reference Range Comments PHOSPHORUS (BEAKER) (test plta=536) 3.5 mg/dL 2.3-4.7 [id number] 07:35:00 Test Item Value Reference Range Comments MAGNESIUM (BEAKER) (test fets=369) 1.6 mg/dL 1.6-2.6 BASIC METABOLIC [id number] 07:35:00 Test Item Value Reference Range Comments SODIUM (BEAKER) (test 134 meq/L 136-145 yuvv=324) POTASSIUM (BEAKER) (test 4.0 meq/L 3.5-5.1 sjqd=224) CHLORIDE (BEAKER) (test 103 meq/L 98-107 usam=952) CO2 (BEAKER) (test 23 meq/L 22-29 bjvz=091) BLOOD UREA NITROGEN 12 mg/dL 7-21 (BEAKER) (test ysle=804) CREATININE (BEAKER) (test 1.10 mg/dL 0.57-1.25 elvi=987) GLUCOSE RANDOM (BEAKER) 231 mg/dL 70-105 (test hgdc=904) CALCIUM (BEAKER) (test 8.5 mg/dL 8.4-10.2 tkcz=172) EGFR (BEAKER) (test 49 mL/min/1.73 sq m ESTIMATED GFR IS NOT txsp=1246) ACCURATE CREATININE CLEARANCE IN PREDICTING GLOMERULAR FILTRATION RATE. ESTIMATED GFR IS NOT APPLICABLE FOR DIALYSIS PATIENTS. POCT-GLUCOSE [id number] 07:33:00 Test Item Value Reference Range Comments POC-GLUCOSE METER (BEAKER) 247 mg/dL 70-110 TESTED AT [facility] [address] (test pxdx=0517) [place] [address] CBC W/PLT COUNT & AUTO [id number] 06:53:00 Test Item Value Reference Range Comments WHITE BLOOD CELL COUNT (BEAKER) (test juaw=182) 6.5 K/ L 3.5-10.5 RED BLOOD CELL COUNT (BEAKER) (test hehw=638) 3.46 M/ L 3.93-5.22 HEMOGLOBIN (BEAKER) (test kflr=136) 9.5 GM/DL 11.2-15.7 HEMATOCRIT (BEAKER) (test yntz=868) 30.5 % 34.1-44.9 MEAN CORPUSCULAR VOLUME (BEAKER) (test huvu=341) 88.2 fL 79.4-94.8 MEAN CORPUSCULAR HEMOGLOBIN (BEAKER) (test 27.5 pg 25.6-32.2 gfzm=242) MEAN CORPUSCULAR HEMOGLOBIN CONC (BEAKER) (test 31.1 GM/DL 32.2-35.5 itnw=839) RED CELL DISTRIBUTION WIDTH (BEAKER) (test 14.7 % 11.7-14.4 iwzy=022) PLATELET COUNT (BEAKER) (test pdfm=582) 268 K/CU MM 150-450 MEAN PLATELET VOLUME (BEAKER) (test skjp=915) 10.4 fL 9.4-12.3 NUCLEATED RED BLOOD CELLS (BEAKER) (test 0 /100 WBC 0-0 oqag=841) NEUTROPHILS RELATIVE PERCENT (BEAKER) (test 67 % iwdg=777) LYMPHOCYTES RELATIVE PERCENT (BEAKER) (test 17 % rxst=764) MONOCYTES RELATIVE PERCENT (BEAKER) (test 11 % zzzv=826) EOSINOPHILS RELATIVE PERCENT (BEAKER) (test 5 % xglz=484) BASOPHILS RELATIVE PERCENT (BEAKER) (test 1 % mlqr=035) NEUTROPHILS ABSOLUTE COUNT (BEAKER) (test 4.33 K/ L 1.56-6.13 aujg=692) LYMPHOCYTES ABSOLUTE COUNT (BEAKER) (test 1.12 K/ L 1.18-3.74 gtke=109) MONOCYTES ABSOLUTE COUNT (BEAKER) (test 0.68 K/ L 0.24-0.36 qryw=188) EOSINOPHILS ABSOLUTE COUNT (BEAKER) (test 0.29 K/ L 0.04-0.36 zipb=748) BASOPHILS ABSOLUTE COUNT (BEAKER) (test 0.06 K/ L 0.01-0.08 jpqt=361) IMMATURE GRANULOCYTES-RELATIVE PERCENT (BEAKER) 0 % 0-1 (test vqhp=5354) POCT-GLUCOSE [id number] 21:09:00 Test Item Value Reference Range Comments POC-GLUCOSE METER (BEAKER) 398 mg/dL 70-110 Patient on insulin Drip/TESTED (test xozp=1295) AT [place] [id number] POCT-GLUCOSE [id number] 17:42:00 Test Item Value Reference Range Comments POC-GLUCOSE METER (BEAKER) 341 mg/dL 70-110 TESTED AT [address] (test xmzn=9412) [place] [id number] POCT-GLUCOSE [id number] 12:03:00 Test Item Value Reference Range Comments POC-GLUCOSE METER (BEAKER) 285 mg/dL 70-110 TESTED AT [address] (test vqbc=3313) [place] [id number] POCT-GLUCOSE [id number] 06:11:00 Test Item Value Reference Range Comments POC-GLUCOSE METER (BEAKER) 335 mg/dL 70-110 TESTED AT [address] (test gefr=1353) [place] [address] [id number] 05:12:00 Test Item Value Reference Range Comments PHOSPHORUS (BEAKER) (test cuzp=724) 4.0 mg/dL 2.3-4.7 [id number] 05:12:00 Test Item Value Reference Range Comments MAGNESIUM (BEAKER) (test arnn=286) 1.5 mg/dL 1.6-2.6 BASIC METABOLIC [id number] 05:12:00 Test Item Value Reference Range Comments SODIUM (BEAKER) (test 135 meq/L 136-145 seiv=078) POTASSIUM (BEAKER) (test 4.0 meq/L 3.5-5.1 fois=749) CHLORIDE (BEAKER) (test 103 meq/L 98-107 nekg=198) CO2 (BEAKER) (test 24 meq/L 22-29 juex=907) BLOOD UREA NITROGEN 11 mg/dL 7-21 (BEAKER) (test qayb=982) CREATININE (BEAKER) (test 1.02 mg/dL 0.57-1.25 egji=348) GLUCOSE RANDOM (BEAKER) 253 mg/dL 70-105 (test uevw=962) CALCIUM (BEAKER) (test 9.1 mg/dL 8.4-10.2 fyiw=828) EGFR (BEAKER) (test 54 mL/min/1.73 sq m ESTIMATED GFR IS NOT bghd=0323) ACCURATE CREATININE CLEARANCE IN PREDICTING GLOMERULAR FILTRATION RATE. ESTIMATED GFR IS NOT APPLICABLE FOR DIALYSIS PATIENTS. CBC W/PLT COUNT & AUTO [id number] 04:40:00 Test Item Value Reference Range Comments WHITE BLOOD CELL COUNT (BEAKER) (test xqer=322) 6.2 K/ L 3.5-10.5 RED BLOOD CELL COUNT (BEAKER) (test evya=830) 3.64 M/ L 3.93-5.22 HEMOGLOBIN (BEAKER) (test mxqy=661) 9.9 GM/DL 11.2-15.7 HEMATOCRIT (BEAKER) (test heyz=726) 32.0 % 34.1-44.9 MEAN CORPUSCULAR VOLUME (BEAKER) (test fbjq=452) 87.9 fL 79.4-94.8 MEAN CORPUSCULAR HEMOGLOBIN (BEAKER) (test 27.2 pg 25.6-32.2 bqrd=030) MEAN CORPUSCULAR HEMOGLOBIN CONC (BEAKER) (test 30.9 GM/DL 32.2-35.5 kelb=717) RED CELL DISTRIBUTION WIDTH (BEAKER) (test 14.7 % 11.7-14.4 hoea=850) PLATELET COUNT (BEAKER) (test nhob=181) 286 K/CU MM 150-450 MEAN PLATELET VOLUME (BEAKER) (test fdaw=311) 10.0 fL 9.4-12.3 NUCLEATED RED BLOOD CELLS (BEAKER) (test 0 /100 WBC 0-0 pfif=298) NEUTROPHILS RELATIVE PERCENT (BEAKER) (test 67 % kokd=500) LYMPHOCYTES RELATIVE PERCENT (BEAKER) (test 17 % wlpr=579) MONOCYTES RELATIVE PERCENT (BEAKER) (test 10 % autn=396) EOSINOPHILS RELATIVE PERCENT (BEAKER) (test 5 % sqww=134) BASOPHILS RELATIVE PERCENT (BEAKER) (test 1 % dbts=424) NEUTROPHILS ABSOLUTE COUNT (BEAKER) (test 4.18 K/ L 1.56-6.13 vakc=296) LYMPHOCYTES ABSOLUTE COUNT (BEAKER) (test 1.06 K/ L 1.18-3.74 mutg=436) MONOCYTES ABSOLUTE COUNT (BEAKER) (test 0.61 K/ L 0.24-0.36 bcaz=643) EOSINOPHILS ABSOLUTE COUNT (BEAKER) (test 0.33 K/ L 0.04-0.36 nqpl=386) BASOPHILS ABSOLUTE COUNT (BEAKER) (test 0.04 K/ L 0.01-0.08 duew=054) IMMATURE GRANULOCYTES-RELATIVE PERCENT (BEAKER) 0 % 0-1 (test teft=3263) POCT-GLUCOSE [id number] 21:37:00 Test Item Value Reference Range Comments POC-GLUCOSE METER (BEAKER) 271 mg/dL 70-110 TESTED AT [address] (test oqxo=0109) [place] [address] POCT-GLUCOSE [id number] 17:40:00 Test Item Value Reference Range Comments POC-GLUCOSE METER (BEAKER) 273 mg/dL 70-110 TESTED AT [address] (test bedl=5575) [place] [address] POCT-GLUCOSE [id number] 12:52:00 Test Item Value Reference Range Comments POC-GLUCOSE METER (BEAKER) 303 mg/dL 70-110 TESTED AT [address] (test lyqa=7939) [place] [address] POCT-GLUCOSE [id number] 08:44:00 Test Item Value Reference Range Comments POC-GLUCOSE METER (BEAKER) 306 mg/dL 70-110 Notified PITER FELIX/TESTED AT [facility] (test jfll=9297) [address] [place] [address] [id number] 04:53:00 Test Item Value Reference Range Comments PHOSPHORUS (BEAKER) (test ylpx=191) 4.0 mg/dL 2.3-4.7 [id number] 04:53:00 Test Item Value Reference Range Comments MAGNESIUM (BEAKER) (test mfmz=210) 1.7 mg/dL 1.6-2.6 BASIC METABOLIC [id number] 04:53:00 Test Item Value Reference Range Comments SODIUM (BEAKER) (test 135 meq/L 136-145 oalt=383) POTASSIUM (BEAKER) (test 3.7 meq/L 3.5-5.1 vunf=448) CHLORIDE (BEAKER) (test 101 meq/L 98-107 hlmp=796) CO2 (BEAKER) (test 27 meq/L 22-29 wkzu=705) BLOOD UREA NITROGEN 10 mg/dL 7-21 (BEAKER) (test smdd=370) CREATININE (BEAKER) (test 1.02 mg/dL 0.57-1.25 wlov=099) GLUCOSE RANDOM (BEAKER) 239 mg/dL 70-105 (test csza=446) CALCIUM (BEAKER) (test 8.9 mg/dL 8.4-10.2 wzxt=450) EGFR (BEAKER) (test 54 mL/min/1.73 sq m ESTIMATED GFR IS NOT jbrf=0725) ACCURATE CREATININE CLEARANCE IN PREDICTING GLOMERULAR FILTRATION RATE. ESTIMATED GFR IS NOT APPLICABLE FOR DIALYSIS PATIENTS. CBC W/PLT COUNT & AUTO [id number] 04:38:00 Test Item Value Reference Range Comments WHITE BLOOD CELL COUNT (BEAKER) (test arik=717) 6.2 K/ L 3.5-10.5 RED BLOOD CELL COUNT (BEAKER) (test gzmk=325) 3.57 M/ L 3.93-5.22 HEMOGLOBIN (BEAKER) (test qhfx=985) 9.8 GM/DL 11.2-15.7 HEMATOCRIT (BEAKER) (test mrrw=719) 31.4 % 34.1-44.9 MEAN CORPUSCULAR VOLUME (BEAKER) (test qsdg=489) 88.0 fL 79.4-94.8 MEAN CORPUSCULAR HEMOGLOBIN (BEAKER) (test 27.5 pg 25.6-32.2 ksvp=829) MEAN CORPUSCULAR HEMOGLOBIN CONC (BEAKER) (test 31.2 GM/DL 32.2-35.5 ajsf=224) RED CELL DISTRIBUTION WIDTH (BEAKER) (test 15.0 % 11.7-14.4 nzkq=204) PLATELET COUNT (BEAKER) (test dlcm=659) 284 K/CU MM 150-450 MEAN PLATELET VOLUME (BEAKER) (test qgce=175) 10.1 fL 9.4-12.3 NUCLEATED RED BLOOD CELLS (BEAKER) (test 0 /100 WBC 0-0 frdm=585) NEUTROPHILS RELATIVE PERCENT (BEAKER) (test 69 % gijp=242) LYMPHOCYTES RELATIVE PERCENT (BEAKER) (test 15 % taui=522) MONOCYTES RELATIVE PERCENT (BEAKER) (test 9 % tqmf=154) EOSINOPHILS RELATIVE PERCENT (BEAKER) (test 6 % vhgq=601) BASOPHILS RELATIVE PERCENT (BEAKER) (test 1 % qchh=403) NEUTROPHILS ABSOLUTE COUNT (BEAKER) (test 4.29 K/ L 1.56-6.13 njvp=916) LYMPHOCYTES ABSOLUTE COUNT (BEAKER) (test 0.93 K/ L 1.18-3.74 lcei=486) MONOCYTES ABSOLUTE COUNT (BEAKER) (test 0.57 K/ L 0.24-0.36 khdj=413) EOSINOPHILS ABSOLUTE COUNT (BEAKER) (test 0.34 K/ L 0.04-0.36 sddd=682) BASOPHILS ABSOLUTE COUNT (BEAKER) (test 0.04 K/ L 0.01-0.08 mkmi=494) IMMATURE GRANULOCYTES-RELATIVE PERCENT (BEAKER) 0 % 0-1 (test hwod=6383) POCT-GLUCOSE [id number] 21:24:00 Test Item Value Reference Range Comments POC-GLUCOSE METER (BEAKER) 307 mg/dL 70-110 Notified PITER FELIX/TESTED AT [facility] (test ajcv=6130) [address] [place] [address] POCT-GLUCOSE [id number] 17:52:00 Test Item Value Reference Range Comments POC-GLUCOSE METER (BEAKER) 224 mg/dL 70-110 TESTED AT [address] (test wldw=8773) [place] [address] POCT-GLUCOSE [id number] 12:46:00 Test Item Value Reference Range Comments POC-GLUCOSE METER (BEAKER) 250 mg/dL 70-110 TESTED AT [address] (test sosv=6568) [place] [address] POCT-GLUCOSE [id number] 08:44:00 Test Item Value Reference Range Comments POC-GLUCOSE METER (BEAKER) 319 mg/dL 70-110 Notified PITER FELIX/TESTED AT [facility] (test qkck=2828) [address] [place] [address] [id number] 05:35:00 Test Item Value Reference Range Comments PHOSPHORUS (BEAKER) (test qhpj=038) 3.8 mg/dL 2.3-4.7 [id number] 05:35:00 Test Item Value Reference Range Comments MAGNESIUM (BEAKER) (test vwql=337) 1.8 mg/dL 1.6-2.6 BASIC METABOLIC [id number] 05:35:00 Test Item Value Reference Range Comments SODIUM (BEAKER) (test 137 meq/L 136-145 nhmr=407) POTASSIUM (BEAKER) (test 4.0 meq/L 3.5-5.1 zbjd=362) CHLORIDE (BEAKER) (test 103 meq/L 98-107 yedw=716) CO2 (BEAKER) (test 27 meq/L 22-29 ixut=903) BLOOD UREA NITROGEN 9 mg/dL 7-21 (BEAKER) (test coqb=622) CREATININE (BEAKER) (test 1.06 mg/dL 0.57-1.25 kgas=455) GLUCOSE RANDOM (BEAKER) 272 mg/dL 70-105 (test utkd=229) CALCIUM (BEAKER) (test 8.9 mg/dL 8.4-10.2 uwgw=943) EGFR (BEAKER) (test 51 mL/min/1.73 sq m ESTIMATED GFR IS NOT lxlx=6111) ACCURATE CREATININE CLEARANCE IN PREDICTING GLOMERULAR FILTRATION RATE. ESTIMATED GFR IS NOT APPLICABLE FOR DIALYSIS PATIENTS. CBC W/PLT COUNT & AUTO [id number] 04:52:00 Test Item Value Reference Range Comments WHITE BLOOD CELL COUNT (BEAKER) (test lndx=576) 5.8 K/ L 3.5-10.5 RED BLOOD CELL COUNT (BEAKER) (test gpwk=958) 3.53 M/ L 3.93-5.22 HEMOGLOBIN (BEAKER) (test ezub=748) 9.6 GM/DL 11.2-15.7 HEMATOCRIT (BEAKER) (test vmqq=698) 31.3 % 34.1-44.9 MEAN CORPUSCULAR VOLUME (BEAKER) (test szpi=390) 88.7 fL 79.4-94.8 MEAN CORPUSCULAR HEMOGLOBIN (BEAKER) (test 27.2 pg 25.6-32.2 dmpp=196) MEAN CORPUSCULAR HEMOGLOBIN CONC (BEAKER) (test 30.7 GM/DL 32.2-35.5 rtnf=666) RED CELL DISTRIBUTION WIDTH (BEAKER) (test 15.4 % 11.7-14.4 lprl=379) PLATELET COUNT (BEAKER) (test uhmr=588) 281 K/CU MM 150-450 MEAN PLATELET VOLUME (BEAKER) (test hatr=465) 9.8 fL 9.4-12.3 NUCLEATED RED BLOOD CELLS (BEAKER) (test 0 /100 WBC 0-0 jqbe=178) NEUTROPHILS RELATIVE PERCENT (BEAKER) (test 66 % mcoq=985) LYMPHOCYTES RELATIVE PERCENT (BEAKER) (test 16 % iree=551) MONOCYTES RELATIVE PERCENT (BEAKER) (test 11 % uqsy=137) EOSINOPHILS RELATIVE PERCENT (BEAKER) (test 5 % vegr=614) BASOPHILS RELATIVE PERCENT (BEAKER) (test 1 % ykwd=673) NEUTROPHILS ABSOLUTE COUNT (BEAKER) (test 3.82 K/ L 1.56-6.13 rqqy=455) LYMPHOCYTES ABSOLUTE COUNT (BEAKER) (test 0.95 K/ L 1.18-3.74 daod=935) MONOCYTES ABSOLUTE COUNT (BEAKER) (test 0.64 K/ L 0.24-0.36 jerc=328) EOSINOPHILS ABSOLUTE COUNT (BEAKER) (test 0.31 K/ L 0.04-0.36 yyel=836) BASOPHILS ABSOLUTE COUNT (BEAKER) (test 0.06 K/ L 0.01-0.08 ggte=612) IMMATURE GRANULOCYTES-RELATIVE PERCENT (BEAKER) 0 % 0-1 (test plkt=5959) POCT-GLUCOSE [id number] 21:33:00 Test Item Value Reference Range Comments POC-GLUCOSE METER (BEAKER) 195 mg/dL 70-110 TESTED AT [address] (test qtft=8377) [facility] [address] POCT-GLUCOSE [id number] 20:09:00 Test Item Value Reference Range Comments POC-GLUCOSE METER (BEAKER) 268 mg/dL 70-110 TESTED AT [address] (test ejnd=3153) [facility] [address] POCT-GLUCOSE [id number] 17:13:00 Test Item Value Reference Range Comments POC-GLUCOSE METER (BEAKER) 400 mg/dL 70-110 TESTED AT [address] (test tylc=5863) [facility] [address] POCT-GLUCOSE [id number] 10:55:00 Test Item Value Reference Range Comments POC-GLUCOSE METER (BEAKER) 216 mg/dL 70-110 TESTED AT [address] (test qzaq=7486) [facility] [address] POCT-GLUCOSE [id number] 07:07:00 Test Item Value Reference Range Comments POC-GLUCOSE METER (BEAKER) 240 mg/dL 70-110 TESTED AT [address] (test bdgv=0161) [facility] [address] POCT-GLUCOSE [id number] 06:13:00 Test Item Value Reference Range Comments POC-GLUCOSE METER (BEAKER) 249 mg/dL 70-110 TESTED AT [address] (test mwcr=8350) [facility] [address] [id number] 05:36:00 Test Item Value Reference Range Comments PHOSPHORUS (BEAKER) (test jejl=772) 3.5 mg/dL 2.3-4.7 [id number] 05:36:00 Test Item Value Reference Range Comments MAGNESIUM (BEAKER) (test rmec=203) 1.7 mg/dL 1.6-2.6 BASIC METABOLIC [id number] 05:36:00 Test Item Value Reference Range Comments SODIUM (BEAKER) (test 138 meq/L 136-145 sqmv=976) POTASSIUM (BEAKER) (test 3.8 meq/L 3.5-5.1 rwwe=010) CHLORIDE (BEAKER) (test 103 meq/L 98-107 moah=596) CO2 (BEAKER) (test 25 meq/L 22-29 xflh=847) BLOOD UREA NITROGEN 8 mg/dL 7-21 (BEAKER) (test phzn=993) CREATININE (BEAKER) (test 0.98 mg/dL 0.57-1.25 vgpl=384) GLUCOSE RANDOM (BEAKER) 218 mg/dL 70-105 (test abws=975) CALCIUM (BEAKER) (test 8.9 mg/dL 8.4-10.2 ahmy=460) EGFR (BEAKER) (test 56 mL/min/1.73 sq m ESTIMATED GFR IS NOT zfod=1693) ACCURATE CREATININE CLEARANCE IN PREDICTING GLOMERULAR FILTRATION RATE. ESTIMATED GFR IS NOT APPLICABLE FOR DIALYSIS PATIENTS. CBC W/PLT COUNT & AUTO [id number] 05:19:00 Test Item Value Reference Range Comments WHITE BLOOD CELL COUNT (BEAKER) (test vnuv=166) 6.7 K/ L 3.5-10.5 RED BLOOD CELL COUNT (BEAKER) (test lmxh=199) 3.66 M/ L 3.93-5.22 HEMOGLOBIN (BEAKER) (test zimu=137) 10.0 GM/DL 11.2-15.7 HEMATOCRIT (BEAKER) (test ashx=199) 32.3 % 34.1-44.9 MEAN CORPUSCULAR VOLUME (BEAKER) (test pxui=697) 88.3 fL 79.4-94.8 MEAN CORPUSCULAR HEMOGLOBIN (BEAKER) (test 27.3 pg 25.6-32.2 gjaw=158) MEAN CORPUSCULAR HEMOGLOBIN CONC (BEAKER) (test 31.0 GM/DL 32.2-35.5 yfgw=025) RED CELL DISTRIBUTION WIDTH (BEAKER) (test 15.9 % 11.7-14.4 soib=998) PLATELET COUNT (BEAKER) (test spkp=233) 329 K/CU MM 150-450 MEAN PLATELET VOLUME (BEAKER) (test zbac=418) 10.1 fL 9.4-12.3 NUCLEATED RED BLOOD CELLS (BEAKER) (test 0 /100 WBC 0-0 qvcz=916) NEUTROPHILS RELATIVE PERCENT (BEAKER) (test 68 % otxn=916) LYMPHOCYTES RELATIVE PERCENT (BEAKER) (test 17 % dqjg=191) MONOCYTES RELATIVE PERCENT (BEAKER) (test 10 % yacl=461) EOSINOPHILS RELATIVE PERCENT (BEAKER) (test 4 % clhl=256) BASOPHILS RELATIVE PERCENT (BEAKER) (test 1 % nrsw=166) NEUTROPHILS ABSOLUTE COUNT (BEAKER) (test 4.55 K/ L 1.56-6.13 kfyf=004) LYMPHOCYTES ABSOLUTE COUNT (BEAKER) (test 1.12 K/ L 1.18-3.74 mgwb=037) MONOCYTES ABSOLUTE COUNT (BEAKER) (test 0.67 K/ L 0.24-0.36 qhou=172) EOSINOPHILS ABSOLUTE COUNT (BEAKER) (test 0.29 K/ L 0.04-0.36 tlkx=468) BASOPHILS ABSOLUTE COUNT (BEAKER) (test 0.06 K/ L 0.01-0.08 pdpy=537) IMMATURE GRANULOCYTES-RELATIVE PERCENT (BEAKER) 0 % 0-1 (test kjii=1580) COMPREHENSIVE METABOLIC [id number] 23:04:00 Test Item Value Reference Range Comments TOTAL PROTEIN (BEAKER) 5.7 gm/dL 6.0-8.3 (test alsx=731) ALBUMIN (BEAKER) (test 3.4 g/dL 3.5-5.0 dnte=3438) ALKALINE PHOSPHATASE 76 U/L 40-150 (BEAKER) (test aypp=402) BILIRUBIN TOTAL (BEAKER) 0.7 mg/dL 0.2-1.2 (test djae=053) SODIUM (BEAKER) (test 136 meq/L 136-145 uxvv=271) POTASSIUM (BEAKER) (test 3.9 meq/L 3.5-5.1 kpco=260) CHLORIDE (BEAKER) (test 103 meq/L 98-107 jhok=533) CO2 (BEAKER) (test 25 meq/L 22-29 xeds=911) BLOOD UREA NITROGEN 9 mg/dL 7-21 (BEAKER) (test iuup=338) CREATININE (BEAKER) (test 0.91 mg/dL 0.57-1.25 hfhi=697) GLUCOSE RANDOM (BEAKER) 147 mg/dL 70-105 (test fzqo=875) CALCIUM (BEAKER) (test 8.8 mg/dL 8.4-10.2 uryh=632) AST (SGOT) (BEAKER) (test 24 U/L 5-34 upbl=413) ALT (SGPT) (BEAKER) (test 23 U/L 6-55 korq=260) EGFR (BEAKER) (test 61 mL/min/1.73 sq m ESTIMATED GFR IS NOT zxmh=3759) ACCURATE CREATININE CLEARANCE IN PREDICTING GLOMERULAR FILTRATION RATE. ESTIMATED GFR IS NOT APPLICABLE FOR DIALYSIS PATIENTS. PROTHROMBIN [id number] 22:57:00 Test Item Value Reference Range Comments PROTIME (BEAKER) (test wdai=631) 14.1 seconds 11.7-14.7 INR (BEAKER) (test esot=201) 1.1 <=5.9 RECOMMENDED COUMADIN/WARFARIN INR THERAPY RANGESSTANDARD DOSE: 2.0 - 3.0 Includes: PROPHYLAXIS forvenous thrombosis, systemic embolization; TREATMENT for venous thrombosis and/or pulmonary embolus.HIGH RISK: Target INR is 2.5-3.5 for patients with mechanical heart valves.CBC W/PLT COUNT & AUTO [id number] 22:51:00 Test Item Value Reference Range Comments WHITE BLOOD CELL COUNT (BEAKER) (test ndrl=164) 6.0 K/ L 3.5-10.5 RED BLOOD CELL COUNT (BEAKER) (test hjca=011) 3.42 M/ L 3.93-5.22 HEMOGLOBIN (BEAKER) (test irgk=978) 9.4 GM/DL 11.2-15.7 HEMATOCRIT (BEAKER) (test vkli=577) 30.0 % 34.1-44.9 MEAN CORPUSCULAR VOLUME (BEAKER) (test drkc=310) 87.7 fL 79.4-94.8 MEAN CORPUSCULAR HEMOGLOBIN (BEAKER) (test 27.5 pg 25.6-32.2 fdsc=167) MEAN CORPUSCULAR HEMOGLOBIN CONC (BEAKER) (test 31.3 GM/DL 32.2-35.5 hfcf=300) RED CELL DISTRIBUTION WIDTH (BEAKER) (test 15.9 % 11.7-14.4 qhor=584) PLATELET COUNT (BEAKER) (test iyzc=470) 297 K/CU MM 150-450 MEAN PLATELET VOLUME (BEAKER) (test hamh=146) 9.5 fL 9.4-12.3 NUCLEATED RED BLOOD CELLS (BEAKER) (test 0 /100 WBC 0-0 elya=756) NEUTROPHILS RELATIVE PERCENT (BEAKER) (test 65 % eanr=231) LYMPHOCYTES RELATIVE PERCENT (BEAKER) (test 19 % okfa=575) MONOCYTES RELATIVE PERCENT (BEAKER) (test 12 % xoxx=916) EOSINOPHILS RELATIVE PERCENT (BEAKER) (test 4 % exgh=847) BASOPHILS RELATIVE PERCENT (BEAKER) (test 1 % ijtp=156) NEUTROPHILS ABSOLUTE COUNT (BEAKER) (test 3.90 K/ L 1.56-6.13 jnsu=167) LYMPHOCYTES ABSOLUTE COUNT (BEAKER) (test 1.12 K/ L 1.18-3.74 ojly=564) MONOCYTES ABSOLUTE COUNT (BEAKER) (test 0.71 K/ L 0.24-0.36 vzps=211) EOSINOPHILS ABSOLUTE COUNT (BEAKER) (test 0.25 K/ L 0.04-0.36 fwky=741) BASOPHILS ABSOLUTE COUNT (BEAKER) (test 0.04 K/ L 0.01-0.08 wsdc=321) IMMATURE GRANULOCYTES-RELATIVE PERCENT (BEAKER) 0 % 0-1 (test mojr=6746)
--- NOTE | 2017-06-17 10:51 | RAD REPORT ---
EXAM DESCRIPTION: CT - [id number] - 06/17/2017 10:26 am CLINICAL HISTORY: Syncope, fall, head and neck injury, headache COMPARISON: None. TECHNIQUE: Axial 5 mm thick images of the head were obtained. Axial 2 mm thick images of the cervic al spine were obtained with sagittal and coronal reconstruction images generated and reviewed. All CT scans are performed using dose optimization technique as appropriate and may include automated exposure control or mA/KV adjustment according to patient size. FINDINGS: No intracranial hemorrhage, mass, edema or acute intracranial finding. No acute cortical based infarc tion. Ventricles are normal. No significant atrophy or chronic ischemic change. Prominent calcificati ons are present along the falx. No extra-axial fluid collections. Mastoid air cells are clear. There is mild mucosal thickening changes in the right side sphenoid sinus and right posterior ethmoid air c ells. No globe or orbit abnormality seen. No acute bone findings seen. There is a small metallic evgeny ce implanted along the right retroauricular skull. This is apparently part of a hearing aid device. Cervical bodies are normal in height. There is a very slight retrolisthesis of C3 on C4 were there is also significant C3-4 disc space narrowing. Advanced disc space narrowing at C5-6, C6-7 and C7-T1. A nterior and posterior endplate spurs are present at these levels. No fracture or acute bone process s een. Central canal detail is inherently limited. There is bilateral bony foraminal encroachment at C3 -4. Severe right-sided facet degenerative change at C4-5 with significant right foraminal encroachmen t. There is very pronounced C5-6 bony foraminal encroachment and borderline central spinal stenosis. Very slight anterior subluxation of C6 on C7 with moderate foraminal encroachment. No pathologic bone process. No paraspinal mass or hematoma. IMPRESSION: No hemorrhage, edema or acute intracranial finding. Prominent cervical spine degenerative change as detailed. No acute findings seen.
--- NOTE | 2017-06-17 11:18 | RAD REPORT ---
EXAM DESCRIPTION: RAD - Chest Single View - 06/17/2017 11:13 am CLINICAL HISTORY: Chest pain. COMPARISON: 06/01/2017 FINDINGS: Portable technique limits examination quality. The lungs are grossly clear. The heart is normal in size. No displaced fractures. IMPRESSION: No acute intrathoracic process suspected.
[2017-06-17 11:36] LABS: Absolute Lymphocytes (CBC) 0.9 K/uL (0.7-4.9); Absolute Neutrophil 10.4 K/uL (1.8-8.0); Basophils % 0.4 % (0-1.3); Eosinophils % 2.1 % (0-4.4); Hematocrit 29.8 % (36.0-45.0); Lymphocytes % 7.5 % (15.3-44.8); MCH 25.2 pg (27.0-35.0); MCV 77.9 fL (80-100); Monocytes % 7.6 % (3.3-12.3); RBC Red Blood Cell Count 3.82 M/uL (3.86-4.86)
[2017-06-17 11:50] LABS: Protime INR 1.03
[2017-06-17 11:56] LABS: Potassium 3.9 mEq/L (3.6-5.0)
[2017-06-17 12:02] LABS: Albumin 3.8 g/dL (3.2-5.5); Bilirubin Direct 0.1 mg/dL (0-0.2); Bilirubin Total 0.5 mg/dL (0.3-1.2); Protein, Total 6.8 g/dL (6.0-8.3)
--- NOTE | 2017-06-17 12:33 | ER ---
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 Care prior to arrival: None. Mechanism of Injury: Fall from standing position. Trauma event details: Injury occurred in the [facility], Injury occurred: at home. Injury occurred: June 17, 2017. 10:12 Acuity: GREGG 2 iw 10:12 Method Of Arrival: Wheelchair iw 10:23 Transition of care: patient was not received from another setting of care. Onset of iw symptoms was June 17, 2017. Trauma Activation: Alert Physician: ED Physician; Name: ; Notified At: ; Arrived At: Physician: General Surgeon; Name: ; Notified At: ; Arrived At: Physician: Radiology; Name: ; Notified At: ; Arrived At: Physician: Respiratory; Name: ; Notified At: ; Arrived At: Physician: Lab; Name: ; Notified At: ; Arrived At: Historical: - Allergies: 10:37 Actos; iw 10:37 Bactrim; iw 10:37 Clindamycin; iw 10:37 Codeine; iw 10:37 Crestor; iw 10:37 Darvocet-N 100; iw 10:37 Erythromycin; iw 10:37 Glimepiride; iw 10:37 Glipizide; iw 10:37 Iodinated Contrast Media - IV Dye; iw 10:37 Januvia; iw 10:37 Lipitor; iw 10:37 metformin; iw 10:37 Morphine; iw 10:37 PENICILLINS; iw 10:37 Sulfa (Sulfonamide Antibiotics); iw 10:37 Wellbutrin; iw - Home Meds: 14:38 Amitriptyline Oral [Active]; aspirin 81 mg Oral TbEC 1 tab once daily [Active]; ch Buspirone Oral [Active]; citalopram oral [Active]; clopidogrel Oral [Active]; Cyclobenzaprine Oral [Active]; octreotide acetate injection [Active]; Simvastatin Oral [Active]; - PMHx: 10:37 angiodysplasia; bronchospastic airway disease; celiac artery stenosis; Cerebrovascular iw disease; chronic mesenteric ischemia; chronic pulmonary embolism; COPD; Depression; Diabetes - IDDM; GERD; ischemic bowel disease; peripheral artery disease; ibs; SBO; - PSHx: 10:37 abdominal surgeries; Tonsillectomy; Cholecystectomy; iw - Immunization history:: Adult Immunizations up to date. - Immunization history: Last tetanus immunization: - up to date. - Social history:: Smoking status: Patient/guardian denies using tobacco. Screenin:39 Abuse screen: Denies threats or abuse. Denies injuries from another. Tuberculosis iw screening: No symptoms or risk factors identified. 10:54 Nutritional screening: No deficits noted. Fall Risk None identified. ch Primary Survey: 10:57 A: Airway: patent. Breathing/Chest: Respiratory pattern: regular, Respiratory effort: ch spontaneous, unlabored. Circulation: Cardiac rhythm: sinus rhythm. Disability Alert. 11:55 Reassessment Breathing/Chest Respiratory pattern Regular Respiratory effort Spontaneous.iw Secondary Survey: 10:57 Gastrointestinal: No deficits noted. : No signs and/or symptoms were reported ch regarding the genitourinary system. Musculoskeletal: Circulation, motion, and sensation intact. Capillary refill < 3 seconds, in bilateral fingers. toes. Range of motion: intact in all extremities, pt states her back hurts, it always hurts but more than usual. Assessment: 10:15 General: Appears uncomfortable, well developed, Behavior is cooperative, anxious. Pain: iw Complains of pain in head and neck. Neuro: Level of Consciousness is awake, alert, obeys commands, Oriented to person, place, time, Moves all extremities. Full function Reports dizziness, headache a syncopal episode. Respiratory: Respiratory effort is even, unlabored, Respiratory pattern is regular, symmetrical. Derm: Skin is pale. Musculoskeletal: Range of motion: intact in all extremities. 10:20 Reassessment: pt transported to CT via stretcher, C-collar in place, VSS. iw 10:54 Reassessment: Patient appears in no apparent distress at this time. Patient and/or ch family updated on plan of care and expected duration. Pain level reassessed. Patient is alert, oriented x 3, equal unlabored respirations, skin warm/dry/pink. 11:24 Reassessment: Patient appears in no apparent distress at this time. No changes from previously documented assessment. 14:01 Reassessment: Patient appears in no apparent distress at this time. attempting to call report now. 14:15 Reassessment: Patient appears in no apparent distress at this time. No changes from previously documented assessment. Patient and/or family updated on plan of care and expected duration. Pain level reassessed. pt eating lunch now. awaiting return call from floor RN. 14:27 Reassessment: Patient appears in no apparent distress at this time. Patient and/or family updated on plan of care and expected duration. Pain level reassessed. Patient is alert, oriented x 3, equal unlabored respirations, skin warm/dry/pink. attempting to call report now. 14:35 Reassessment: unable to get ahold of the nurse. I ask to give report to the charge nurse, on hold now. 14:40 Reassessment: Patient appears in no apparent distress at this time. report given to Rebekah, Rebekah will try to contact the floor. Vital Signs: 10:18 BP 153 / 60; Pulse 92; Resp 16; Temp 98.2; Pulse Ox 98% on R/A; iw 10:54 BP 125 / 54; Pulse 89; Resp 16; Pulse Ox 98% on R/A; Weight 74.84 kg; Height 5 ft. 3 in. (160.02 cm); Pain 6/10; 12:00 BP 130 / 62; Pulse 85; Resp 16; Pulse Ox 97% on R/A; Pain 6/10; ch 13:02 BP 125 / 56; Pulse 85; Resp 16; Temp 98.5; Pulse Ox 99% on R/A; Pain 6/10; ch 13:41 BP 125 / 60; Pulse 82; Resp 17; Pulse Ox 96% ; ag 14:38 BP 116 / 55; Pulse 88; Resp 16; Temp 98.2; Pulse Ox 99% on R/A; Pain 4/10; ch 10:54 Body Mass Index 29.23 (74.84 kg, 160.02 cm) [place] Coma Score: 10:18 Eye Response: spontaneous(4). Verbal Response: oriented(5). Motor Response: obeys iw commands(6). Total: 15. Trauma Score (Adult): 10:18 Eye Response: spontaneous(1); Verbal Response: oriented(1); Motor Response: obeys iw commands(2); Systolic BP: > 89 mm Hg(4); Respiratory Rate: 10 to 29 per min(4); [place] Score: 15; Trauma Score: 12 ED Course: 10:07 Patient arrived in ED. rg4 10:15 Patient maintains SpO2 saturation greater than 95% on room air. Thermoregulation: warm iw blanket given to patient. 10:17 Andrez Drew MD is Attending Physician. kdr 10:21 Rebekah Ramos, RN is Primary Nurse. iw 10:23 Triage completed. iw 10:30 CT completed. Patient tolerated procedure well. Patient moved to CT via stretcher. sj Patient moved to radiology Patient moved back from CT. 10:34 X-ray completed. Patient tolerated procedure well. Patient moved back from radiology. mh1 10:39 Arm band placed on. iw 10:45 Primary Nurse role handed off by Rebekah Ramos, RN ch 10:45 Pura Loving, PITER is Primary Nurse. ch 10:54 No provider procedures requiring assistance completed. ch 10:54 Placed in gown. Bed in low position. Call light in reach. Side rails up X2. Cardiac ch monitor on. Pulse ox on. NIBP on. Warm blanket given. 11:24 Inserted saline lock: 22 gauge in left hand, using aseptic technique. Blood collected. ch 11:57 EKG done, by automobile glass technician. reviewed by Andrez Drew MD. tc 12:31 Clyde Brower MD is Hospitalizing Provider. kdr 12:40 Straight cath inserted, using sterile technique, 16 Fr. Specimen obtained. per Dr. eboni Ruiz orders Returned urine is very bright, almost neon colored yellow. Patient tolerated well. 12:40 Patient admitted, IV remains in place. Administered Medications: No medications were administered Point of Care Testing: Blood Glucose: 14:02 Blood Glucose: 82 mg/dL; ch Ranges: Intake: 10:57 PO: 0ml; Total: 0ml. ch Outcome: 12:32 Decision to Hospitalize by Provider. kdr 14:46 Admitted to Med/surg accompanied by tech, room 202, Report called to [facility] iw 14:46 Condition: good 14:46 Discharge instructions given to patient, Instructed on the need for admit, Demonstrated understanding of instructions. 14:46 Patient's length of stay in the Emergency Department was greater than 2 hours. 15:17 Patient left the ED. Signatures: Pura Loving, RN RN Andrez Drew MD MD [facility] Yulia Walton 1 Kathia Bean Irene, RN RN Julissa Gonzales, operations manager station EKG Ttc Trisha Hilario, Hoda rg4 Corrections: (The following items were deleted from the chart) 10:39 10:39 Patient maintains SpO2 saturation greater than 95% on room air. iw iw 10:39 10:39 Thermoregulation: warm blanket given to patient. iw iw
--- NOTE | 2017-06-17 12:33 | EDPHYS ---
Physician Documentation [facility] Name: Sia Salazar Age: 71 yrs Sex: Female : 1945 Arrival Date: 06/17/2017 Time: 10:07 Bed 3 Private MD: ED Physician Andrez Drew HPI: 06/17 21:24 This 71 yrs old Female presents to ER via Wheelchair with complaints of kdr Passed Out Prior To Arrival, Fall Injury. 21:24 The patient has experienced syncope, collapsed, lost consciousness. Onset: The kdr symptoms/episode began/occurred acutely, suddenly, just prior to arrival. Duration: The patient has had multiple episodes, that last an unknown period of time. Context: the episode(s) was witnessed, by no one, occurred at home, occurred while the patient was In shower. Associated injury: The patient did not suffer any apparent associated injury. Associated signs and symptoms: The patient has no apparent associated signs or symptoms. Current symptoms: Generally weak. The patient has not experienced similar symptoms in the past. The patient has not recently seen a physician. Historical: - Allergies: 10:37 Actos; iw 10:37 Bactrim; iw 10:37 Clindamycin; iw 10:37 Codeine; iw 10:37 Crestor; iw 10:37 Darvocet-N 100; iw 10:37 Erythromycin; iw 10:37 Glimepiride; iw 10:37 Glipizide; iw 10:37 Iodinated Contrast Media - IV Dye; iw 10:37 Januvia; iw 10:37 Lipitor; iw 10:37 metformin; iw 10:37 Morphine; iw 10:37 PENICILLINS; iw 10:37 Sulfa (Sulfonamide Antibiotics); iw 10:37 Wellbutrin; iw - Home Meds: 14:38 Amitriptyline Oral [Active]; aspirin 81 mg Oral TbEC 1 tab once daily [Active]; ch Buspirone Oral [Active]; citalopram oral [Active]; clopidogrel Oral [Active]; Cyclobenzaprine Oral [Active]; octreotide acetate injection [Active]; Simvastatin Oral [Active]; - PMHx: 10:37 angiodysplasia; bronchospastic airway disease; celiac artery stenosis; Cerebrovascular iw disease; chronic mesenteric ischemia; chronic pulmonary embolism; COPD; Depression; Diabetes - IDDM; GERD; ischemic bowel disease; peripheral artery disease; ibs; SBO; - PSHx: 10:37 abdominal surgeries; Tonsillectomy; Cholecystectomy; iw - Immunization history:: Adult Immunizations up to date. - Immunization history: Last tetanus immunization: - up to date. - Social history:: Smoking status: Patient/guardian denies using tobacco. ROS: 21:24 Constitutional: Negative for fever, chills, and weight loss, Eyes: Negative for injury, kdr pain, redness, and discharge, Neck: Negative for injury, pain, and swelling, Cardiovascular: Negative for chest pain, palpitations, and edema, Respiratory: Negative for shortness of breath, cough, wheezing, and pleuritic chest pain, Abdomen/GI: Negative for abdominal pain, nausea, vomiting, diarrhea, and constipation, Back: Negative for injury and pain, : Negative for injury, bleeding, discharge, and swelling, MS/Extremity: Negative for injury and deformity, Skin: Negative for injury, rash, and discoloration, Psych: Negative for depression, anxiety, suicide ideation, homicidal ideation, and hallucinations, Allergy/Immunology: Negative for hives, rash, and allergies, Endocrine: Negative for neck swelling, polydipsia, polyuria, polyphagia, and marked weight changes, Hematologic/Lymphatic: Negative for swollen nodes, abnormal bleeding, and unusual bruising. 21:24 Neuro: Positive for altered mental status, dizziness, syncope, weakness. Exam: 21:24 Constitutional: This is a well developed, well nourished patient who is awake, alert, kdr and in no acute distress. Head/Face: Normocephalic, atraumatic. Eyes: Pupils equal round and reactive to light, extra-ocular motions intact. Lids and lashes normal. Conjunctiva and sclera are non-icteric and not injected. Cornea within normal limits. Periorbital areas with no swelling, redness, or edema. Neck: Trachea midline, no thyromegaly or masses palpated, and no cervical lymphadenopathy. Supple, full range of motion without nuchal rigidity, or vertebral point tenderness. No Meningismus. Chest/axilla: Normal chest wall appearance and motion. Nontender with no deformity. No lesions are appreciated. Cardiovascular: Regular rate and rhythm with a normal S1 and S2. No gallops, murmurs, or rubs. Normal PMI, no JVD. No pulse deficits. Respiratory: Lungs have equal breath sounds bilaterally, clear to auscultation and percussion. No rales, rhonchi or wheezes noted. No increased work of breathing, no retractions or nasal flaring. Abdomen/GI: Soft, non-tender, with normal bowel sounds. No distension or tympany. No guarding or rebound. No evidence of tenderness throughout. Back: No spinal tenderness. No costovertebral tenderness. Full range of motion. Skin: Warm, dry with normal turgor. Normal color with no rashes, no lesions, and no evidence of cellulitis. MS/ Extremity: Pulses equal, no cyanosis. Neurovascular intact. Full, normal range of motion. Neuro: Awake and alert, GCS 15, oriented to person, place, time, and situation. Cranial nerves II-XII grossly intact. Motor strength 5/5 in all extremities. Sensory grossly intact. Cerebellar exam normal. Normal gait. Psych: Awake, alert, with orientation to person, place and time. Behavior, mood, and affect are within normal limits. Vital Signs: 10:18 BP 153 / 60; Pulse 92; Resp 16; Temp 98.2; Pulse Ox 98% on R/A; iw 10:54 BP 125 / 54; Pulse 89; Resp 16; Pulse Ox 98% on R/A; Weight 74.84 kg; Height 5 ft. 3 ch in. (160.02 cm); Pain 6/10; 12:00 BP 130 / 62; Pulse 85; Resp 16; Pulse Ox 97% on R/A; Pain 6/10; ch 13:02 BP 125 / 56; Pulse 85; Resp 16; Temp 98.5; Pulse Ox 99% on R/A; Pain 6/10; ch 13:41 BP 125 / 60; Pulse 82; Resp 17; Pulse Ox 96% ; ag 14:38 BP 116 / 55; Pulse 88; Resp 16; Temp 98.2; Pulse Ox 99% on R/A; Pain 4/10; ch 10:54 Body Mass Index 29.23 (74.84 kg, 160.02 cm) [place] Coma Score: 10:18 Eye Response: spontaneous(4). Verbal Response: oriented(5). Motor Response: obeys iw commands(6). Total: 15. Trauma Score (Adult): 10:18 Eye Response: spontaneous(1); Verbal Response: oriented(1); Motor Response: obeys iw commands(2); Systolic BP: > 89 mm Hg(4); Respiratory Rate: 10 to 29 per min(4); [place] Score: 15; Trauma Score: 12 MDM: 12:32 Patient medically screened. [facility] 21:24 Data reviewed: vital signs, lab test result(s), EKG, radiologic studies. Counseling: I kdr had a detailed discussion with the patient and/or guardian regarding: the historical points, exam findings, and any diagnostic results supporting the discharge/admit diagnosis, lab results, radiology results, the need for further work-up and treatment in the hospital. Physician consultation: Clyde Brower MD. Admission orders: after a detailed discussion of the patient's condition and case, the admit orders are written by me. 06/17 10:18 Order name: Basic Metabolic Panel [facility] 06/17 10:18 Order name: BNP [facility] 06/17 10:18 Order name: CBC with Diff [facility] 06/17 10:18 Order name: LFT's [facility] 06/17 10:18 Order name: Magnesium [facility] 06/17 10:18 Order name: PT-INR [facility] 06/17 10:18 Order name: Ptt, Activated [facility] 06/17 10:18 Order name: Troponin (emerg Dept Use Only) [facility] 06/17 11:42 Order name: CBC with Automated Diff; Complete Time: 11:52 EDMS 06/17 11:53 Order name: Protime (+INR); Complete Time: 12:30 EDMS 06/17 11:53 Order name: PTT, Activated Partial Thromb; Complete Time: 12:30 EDMS 06/17 11:56 Order name: Basic Metabolic Panel; Complete Time: 12:30 EDMS 06/17 12:01 Order name: Troponin (Emerg Dept Use Only); Complete Time: 12:30 EDMS 06/17 12:03 Order name: Liver (Hepatic) Function; Complete Time: 12:30 EDMS 06/17 10:18 Order name: XRAY Chest (1 view) [facility] 06/17 10:18 Order name: EKG; Complete Time: 10:19 [facility] 06/17 10:18 Order name: Cardiac monitoring; Complete Time: 13:03 [facility] 06/17 10:18 Order name: EKG - Nurse/Tech; Complete Time: 13:03 kdr 06/17 10:18 Order name: IV Saline Lock; Complete Time: 13: kdr 06/17 10:18 Order name: Labs collected and sent; Complete Time: 13: kdr 06/17 10:18 Order name: O2 Per Protocol; Complete Time: 13: kdr 06/17 10:18 Order name: O2 Sat Monitoring; Complete Time: 13: kdr 06/17 10:18 Order name: Urine Dipstick-Ancillary (obtain specimen); Complete Time: 13: kdr 06/17 10:18 Order name: CT Head C Spine kdr 06/17 10:52 Order name: CT; Complete Time: 11:52 EDMS 06/17 11:19 Order name: RAD; Complete Time: 11:52 EDMS 06/17 12:03 Order name: Magnesium; Complete Time: 12:30 EDMS 06/17 12:04 Order name: BNP B-Type Natriuretic Peptide; Complete Time: 12:30 EDMS 06/17 13:04 Order name: Urine Dipstick--Ancillary (enter results) ms 06/17 14:10 Order name: Urine Dipstick-Ancillary EDMS Administered Medications: No medications were administered Point of Care Testing: Blood Glucose: 14:02 Blood Glucose: 82 mg/dL; Ranges: Critical Glucose Levels:Adult <50 mg/dl or >400 mg/dl <40 mg/dl or >180 mg/dl Disposition: 06/17/17 12:32 Hospitalization ordered by Clyde Brower for Observation. Preliminary diagnosis are Weakness, Syncope and collapse, Superficial injury of head. - Bed requested for Telemetry/MedSurg (observation). - Status is Observation. - Condition is Fair. - Problem is new. - Symptoms have improved. UTI on Admission? No Signatures: Dispatcher [employer] EDMS Pura Loving RN RN Andrez Drew MD MD kdr Rebekah Ramos RN RN Danielle Nowak ms
[2017-06-17] MEDS ORDERED: ACETAMINOPHEN 500 MG TAB PO PRN (13:06)
[2017-06-17] MEDS ORDERED: ONDANSETRON 4 MG/2 ML VIAL IV PRN (13:06)
[2017-06-17] MEDS: NA CHLORIDE 0.9% 1,000 ML IV SCH (14:00)
[2017-06-17 14:09] LABS: Urine Blood NEGATIVE (NEG); Urine Glucose 1+ (NEG); Urine Protein NEGATIVE (NEG); Urine pH 7.5 (5.0-7.0)
[2017-06-17 15:19] VITALS: BMI 29.1
--- NOTE | 2017-06-17 16:50 | EKG ---
Test Date: 2017-05-29 Test Time: 10:52:11 Scrub Technician: ALEXANDRA/T MEASUREMENT RESULTS: Intervals: Rate: 89 WI: 166 QRSD: 74 QT: 358 QTc: 435 [employer]: P: 16 WI: 166 QRS: 3 T: 58 INTERPRETIVE STATEMENTS: Normal sinus rhythm with sinus arrhythmia Low voltage QRS Cannot rule out Anteroseptal infarct, age undetermined Abnormal ECG Compared to ECG 11/24/2016 15:54:48 Low QRS voltage now present Myocardial infarct finding still present Electronically Signed On 06-17-17 16:50:02 CDT by Denton Isaacs
[2017-06-18] MEDS ORDERED: PANTOPRAZOLE 40MG TABLET PO SCH
[2017-06-18] MEDS: SIMVASTATIN 20 MG PO SCH (00:01)
[2017-06-18] MEDS ORDERED: GABAPENTIN 300 MG CAP PO SCH (00:03)
[2017-06-18 00:58] VITALS: O2SAT 93
[2017-06-18] MEDS ORDERED: METFORMIN HCL 500 MG TAB PO SCH (01:00)
[2017-06-18] MEDS ORDERED: AMITRIPTYLINE 10 MG TAB PO SCH (01:00)
[2017-06-18] MEDS: NA CHLORIDE 0.9% 1,000 ML IV SCH (04:28)
[2017-06-18 05:27] LABS: Absolute Lymphocytes (CBC) 1.2 K/uL (0.7-4.9); Absolute Monocytes 0.9 K/uL (0.1-1.3); Absolute Neutrophil 6.4 K/uL (1.8-8.0); Basophils % 1.4 % (0-1.3); Hematocrit 27.6 % (36.0-45.0); Lymphocytes % 13.4 % (15.3-44.8); MCH 25.5 pg (27.0-35.0); MCV 77.4 fL (80-100); MPV 7.7 fL (7.6-11.3); Monocytes % 10.2 % (3.3-12.3); RBC Red Blood Cell Count 3.56 M/uL (3.86-4.86)
[2017-06-18 05:53] LABS: Potassium 4.4 mEq/L (3.6-5.0)
--- NOTE | 2017-06-18 07:38 | HP ---
Date of Admission: 06/17/2017 Chief Complaint: Dizziness, syncope. History Of Present Illness: This patient was brought to the emergency room because of possible synco pe at home. The patient also complains of having had dizziness, however, there is no history of docu mented seizures. She complains of pain in the left knee. There is no history of chest pain or other systemic symptoms. The patient was evaluated in the emergency room and admitted for observation. Past Medical History: Positive for angiodysplasia with recurrent GI bleeding, needing iron replaceme nt, history of pulmonary embolism, COPD, depression, type 2 diabetes, ischemic bowel, peripheral vasc ular disease, small bowel obstruction. Past Surgical History: Positive for abdominal surgery, gallbladder surgery, and tonsillectomy. Allergies: MULTIPLE. PLEASE REFER TO THE CHART. Review of Systems: No chest pain or shortness of breath. Physical Examination: General: Revealed fully alert and oriented female. HEENT: No evidence of head injury. Neck: Supple. JVD negative. Chest: Clear. Heart: Regular. Abdomen: Soft. Extremities: There is mild tenderness of the left knee. Otherwise negative. Laboratory Data: White count normal, hemoglobin 9.5. Assessment: 1.Syncope. 2.Type 2 diabetes. 3.History of recurrent GI bleeding from angiodysplasia. 4.History of small bowel obstruction. 5.History of hyperlipidemia. Plan: The patient this morning is fully alert and oriented. She wants to go home. I would do an x- ray of the knee before she is discharged. The patient has no symptoms today. She will be followed u p in the office if she continues to have any further episodes of dizziness or syncope. She will be r e-evaluated. DIVYA/THERESA Voice ID: [id number]
--- NOTE | 2017-06-18 08:59 | RAD REPORT ---
EXAM DESCRIPTION: RAD - Knee Left 2 View - 06/18/2017 8:44 am CLINICAL HISTORY: Knee pain, possible fracture COMPARISON: None. FINDINGS: No fracture, dislocation or periosteal reaction.No joint effusion seen. Medial compartment narrowing is present with moderate marginal spurring. There are spurs along the intercondylar notch. Small intra-articular loose body may be present posteriorly. Spurring is present at the quadriceps a ttachment to the patella. Edema is seen in the soft tissues anterior and superior to the patella. IMPRESSION: Knee degenerative changes are present primarily in the medial compartment. No fracture o r acute bone or joint finding seen. Follow-up MR imaging could be performed if there is concern for occult bone process or internal deran gement.
[2017-06-18 10:49] VITALS: BP 117/57; TEMP 97.8
== END 2017-06-18 09:35 | disposition home or self-care (01) ==
LOC: ER 10:07 → ERHOLD 13:12 → 2ND 14:47
PROVIDERS: ADMIT Internal Medicine; ATTEND Internal Medicine
DX: R55 Syncope and collapse (principal); E11.9 Type 2 diabetes mellitus without complications; J44.9 Chronic obstructive pulmonary disease, unspecified; F32.9 Major depressive disorder, single episode, unspecified
CPT/HCPCS: 36415; 51702; 70450; 71045; 72125; 73560; 80048 ×2; 80076; 81003; 82962 ×3; 83735; 83880; 84484; 85025 ×2; 85610; 85730; 93005; 99285; G0378 ×2; J7030 ×2

== ENCOUNTER 2018-11-12 12:51 | Emergency (ER) | payer OTHER ==
--- OUTSIDE RECORDS SUMMARY | 2018-11-12 12:53 | XMS REPORT | Clinical Summary ---
:1945 Author Organization [facility] Address [address] [place] [address] Care Team Providers Name Role Phone [facility] Primary Care Provider Allergies Active Allergy Reactions Severity Noted Date Comments Atorvastatin Hives 10/22/2016 Clindamycin 10/22/2016 Codeine Itching 10/22/2016 Propoxyphene N-Acetaminophen Anaphylaxis High 10/22/2016 Erythromycin Hives 10/22/2016 Glimepiride Hives 10/22/2016 Glipizide 10/22/2016 Peg 3350-Electrolytes Anaphylaxis High 10/22/2016 Iodine And Iodide Containing Products Anaphylaxis High 10/22/2016 Morphine Itching 10/22/2016 Penicillins Hives 10/22/2016 Pioglitazone 10/22/2016 Rosuvastatin 10/22/2016 Sitagliptin 10/22/2016 Sulfa (Sulfonamide Antibiotics) Hives 10/22/2016 Sulfamethoxazole 10/22/2016 Trimethoprim 10/22/2016 Bupropion Hcl 10/22/2016 Medications Medication Sig Dispensed Refills Start Date End Date Status amitriptyline Take 5 mg by mouth 0 Active (ELAVIL) 10 MG tablet every night as needed . busPIRone (BUSPAR) 15 Take 15 mg by mouth 0 Active MG tablet 2 (two) times daily. citalopram (CELEXA) Take 40 mg by mouth 0 Active 40 MG tablet daily. cyclobenzaprine Take 5 mg by mouth 0 Active (FLEXERIL) 5 MG 3 (three) times tablet daily as needed for Muscle spasms. gabapentin Take 300 mg by 0 Active (NEURONTIN) 600 MG mouth 2 (two) times tablet daily . simvastatin (ZOCOR) Take 20 mg by mouth 0 Active 20 MG tablet nightly. insulin aspart Inject 35 Units 0 Active protamine-insulin subcutaneously 2 aspart (NOVOLOG MIX (two) times daily 70/30) 100 unit/mL with breakfast and (70-30) Soln dinner. injection metFORMIN Resume if you were 0 10/27/2016 Active (GLUCOPHAGE) 1000 MG taking prior to tablet admission. clopidogrel (PLAVIX) Take 1 tablet (75 0 11/28/2016 Active 75 mg tablet mg total) by mouth daily. pantoprazole Take 1 tablet (40 60 tablet 3 11/28/2016 Active (PROTONIX) 40 MG mg total) by mouth tablet 2 (two) times daily. insulin aspart Inject 0 Active (NOVOLOG) 100 unit/mL subcutaneously 3 InPn (three) times daily with meals. guaiFENesin Take 200 mg by 0 Active (ROBITUSSIN) 100 mg/5 mouth 3 (three) mL syrup times daily as needed for Cough. LORazepam (ATIVAN) Take 0.5 mg by 0 Active 0.5 MG mouth every 12 tabletIndications: (twelve) hours as anxiety needed for Anxiety. ferrous sulfate 325 Take 1 tablet (325 90 tablet 0 12/16/2016 (65 FE) MG tablet mg total) by mouth 8 3 (three) times daily with meals. albuterol HFA Inhale 1 puff by 1 Inhaler 0 12/16/2016 (VENTOLIN HFA) 90 mouth via inhaler 8 mcg/actuation inhaler every 6 (six) hours as needed for Wheezing or Shortness of Breath. ipratropium-albuterol Take 3 mLs by 90 vial 3 12/16/2016 (DUO-NEB) 0.5 mg-3 nebulization every 8 mg(2.5 mg base)/3 mL 6 (six) hours as nebulizer solution needed for Wheezing for up to 360 days. Active Problems Problem Noted Date Acute GI bleeding 12/13/2016 Arteriovenous malformation (AVM) 12/13/2016 Diabetes mellitus 12/13/2016 Overview: Type II Coronary artery disease involving [place] coronary artery 12/13/2016 Essential hypertension 12/13/2016 Microcytic anemia 12/13/2016 Gastrointestinal hemorrhage, unspecified gastrointestinal hemorrhage type Severe sepsis 11/25/2016 Anemia due to acute blood loss 11/24/2016 Upper GI bleed 10/27/2016 Angiodysplasia of intestine with hemorrhage 10/27/2016 Acute blood loss anemia 10/27/2016 GI bleed 10/23/2016 Immunizations Name Dates Previously Given Next Due Pneumococcal Polysaccharide (Pneumovax) 12/11/2016 Family History Medical History Relation Name Comments Depression Brother Depression Daughter Early Father No Known Problem Mother Depression Sister No Known Problem Son Relation Name Status Comments Brother Daughter Father Mother Sister Son Social History Tobacco Use Types Packs/Day Years Used Date Never Smoker Smokeless Tobacco: Never Used Tobacco Cessation: Counseling Given: No Alcohol Use Drinks/Week oz/Week Comments No Sex Assigned at Date Recorded Not on file Job Start Date Occupation Industry Not on file Not on file Not on file Travel History Travel Start Travel End No recent travel history available. Last Filed Vital Signs Not on file Plan of Treatment Not on file Results Not on fileafter 11/11/2017 Insurance Payer Benefit Plan / Group Subscriber ID Type Phone Address MEDICARE MEDICARE A B xxxxxxxxxx Medicare [facility] GENERIC MEDICARE xxxxxxxxxxx Medigap SUPPLEMENT/INDIVIDUAL SUPPLEMENT Advance Directives For more information, please contact:[address] [phone] Code Status Date Activated Date Inactivated Comments Full Code 12/13/2016 2:10 PM 12/16/2016 5:27 PM This code status was determined by: Patient Full Code 12/10/2016 10:30 PM 12/13/2016 1:21 PM This code status was determined by: Patient Full Code 11/24/2016 11:04 PM 11/29/2016 4:02 PM This code status was determined by: Patient Full Code 10/22/2016 7:53 PM 10/27/2016 7:52 PM This code status was determined by: Patient
--- OUTSIDE RECORDS SUMMARY | 2018-11-12 12:54 | XMS REPORT | Continuity of Care Document ---
:1945 Author Organization [employer] Information [employer] Care Team Providers Name Role Phone [facility] Information [employer] Unavailable Unavailable Problems Problem Status Onset Classification Date Comments Source Date Reported DSU- HEMATOCHEZIA Active 10/02/19 [facility] R19.5, FATIGUE Medical R53.83, Center F/U Active 07/03/[address] CONSULT Active 05/06/[address] Anemia Resolved Problem 10/04/2016 [facility] Anxiety Resolved Problem 10/04/2016 [facility] Arteriovenous Resolved Problem 10/04/2016 [facility] (Confirmed) [facility] Gallstones Resolved Problem 10/04/2016 [facility] Diabetes Resolved Problem 10/04/2016 [facility] GI bleeding Resolved Problem 10/04/2016 [facility] Acute gout Resolved Problem 10/04/2016 [facility] Hx-TIA Resolved Problem 10/04/2016 [facility] (Confirmed) [facility] Asthma Resolved Problem 10/04/2016 [facility] Arthritis Resolved Problem 10/04/2016 [facility] Depression Resolved Problem 10/04/2016 [facility] Peripheral Resolved Problem 10/04/2016 [facility] vascular disease [facility] Colon polyps Resolved Problem 10/04/2016 [facility] ENCNTR FOR Active [facility] GENERAL ADULT Medical MEDICAL EXAM W/ Center OTHER FECAL Active [facility] Medications Medication Details Route Status Patient Ordering Order Source Instructions Provider Date GoLYTELY oral 240 mL, PO, Active [facility] powder for Q10Min, Give 017 Medical reconstitution jug for [facility] Colonoscopy, # 1 ea, 0 Refill(s), Pharmacy: [id number] Octreotide 0.2 See Active [place] MG/ML Injectable Instructions 017 Medical Solution , 200 [place] [Sandostatin] microgram IM left gluteal muscle, # 1 box, 0 Refill(s), given to patient, Pt brought her own supply 200 ACTUAT 2 puff, Active [facility] Albuterol 0.09 INHALATION, 017 Medical MG/ACTUAT Dry Q4H, 0 [facility] Powder Inhaler Refill(s) ascorbic acid 500 500 mg=1 Active [facility] mg oral tablet tab, PO, 017 Medical Daily, 0 Center Refill(s) Lorazepam 0.5 MG 0.5 mg=1 Active [facility] Oral Tablet tab, PO, 017 Medical [Ativan] TID, 0 Center Refill(s) SandoSTATIN LAR IM, q4wk, 0 Active [facility] [place] Refill(s) 017 [facility] Docusate Sodium 100 mg=1 Active [facility] 100 MG Oral cap, PO, 017 Medical Capsule [Colace] BID, 0 [facility] Refill(s) NovoLIN 70/30 SUB-Q, 0 Active [facility] Refill(s) [address] [place] [address] Metformin 1,000 mg=1 Active [facility] hydrochloride 1000 tab, PO, 017 Medical MG Oral Tablet BID, 0 [place] Refill(s) gabapentin 300 MG 300 mg=1 Active [facility] Oral Capsule cap, PO, 017 Medical BID, # 90 Center cap, 1 Refill(s) Famotidine 20 MG 20 mg=1 tab, Active [facility] Oral Tablet PO, BID, # 6 017 Medical tab, 0 Center Refill(s) Ondansetron 4 MG 4 mg=1 tab, Active [facility] Oral Tablet PO, Q8H, 0 017 Medical [Zofran] Refill(s) [facility] clopidogrel 75 MG 75 mg=1 tab, Active [facility] Oral Tablet PO, Daily, 0 017 Medical [Plavix] Refill(s) [place] amitriptyline 10 10 mg=1 tab, Active [facility] mg oral tablet PO, Bedtime, 017 [facility] # [facility] tab, 1 Center Refill(s) Omeprazole 40 MG 40 mg=1 cap, Active [facility] Enteric Coated PO, Daily, 0 017 Medical Capsule [Prilosec] Refill(s) [place] Cyclobenzaprine 5 mg=1 tab, Active [facility] hydrochloride 5 MG PO, TID, 0 017 Medical Oral Tablet Refill(s) [facility] [Flexeril] Simvastatin 20 MG 20 mg=1 tab, Active [facility] Oral Tablet PO, Bedtime, 017 Medical [Zocor] 0 Refill(s) [place] cholecalciferol 1,000 Active [facility] 1000 intl units IntlUnit=1 017 Medical oral capsule cap, PO, Center Daily, 0 Refill(s) Furosemide 20 MG 20 mg=1 tab, Active [facility] Oral Tablet PO, Daily, 0 017 Medical [Lasix] Refill(s) [place] Insulin, Aspart, SUB-Q, Active [facility] Human 100 UNT/ML TID-Before 017 [facility] Injectable Meals, 0 [place] Solution [NovoLog] Refill(s) Buspar 15 mg, PO, Active [facility] BID, 0 017 Medical Refill(s) [place] Citalopram 40 MG 40 mg=1 tab, Active [facility] Oral Tablet PO, Daily, 0 017 Medical [Celexa] Refill(s) [place] aspirin 81 mg 81 mg=1 tab, Active [facility] tablet, enteric PO, Daily, # 017 Medical coated 90 tab, 3 Center Refill(s) Vitamin B Complex 1 tab, PO, Active [facility] oral tablet Daily, 0 017 Medical Refill(s) [place] Fluticasone INHALATION, Active [facility] propionate 0.05 BID, 0 017 Medical MG/ACTUAT Dry Refill(s) [place] Powder Inhaler Miralax 17 gm, PO, Active [facility] Daily, 0 017 Medical Refill(s) [place] magnesium oxide 500 mg=1 Active [facility] 500 mg oral tablet tab, PO, 017 Medical Daily, 0 [place] Refill(s) Tylenol 500 mg, PO, Active [facility] 0 Refill(s) [address] [place] [address] Allergies, Adverse Reactions, Alerts Substance Category Reaction Severity Reaction Status Date Comments Source type Reported Bactrim Assertion Drug Active [facility] Bandaids Assertion Drug Active [facility] clindamycin Assertion Drug Active [facility] codeine Assertion Drug Active [facility] Crestor Assertion Drug Active [facility] Darvocet-N 50 Assertion Drug Active [facility] erythromycin Assertion Drug Active [facility] glimepiride Assertion Drug Active [facility] glipiZIDE Assertion Drug Active [facility] iodine Assertion Drug Active [facility] Januvia Assertion Drug Active [facility] Lipitor Assertion Drug Active [facility] metFORMIN Assertion Drug Active [facility] morphine Assertion Drug Active [facility] penicillins Assertion Drug Active [facility] sulfa drugs Assertion Drug Active [facility] Wellbutrin Assertion Drug Active [facility] Immunizations No Data Provided for This Section Results No Data Provided for This Section Pathology Reports No Data Provided for This Section Diagnostic Reports No Data Provided for This Section Consultation Notes No Data Provided for This Section Discharge Summaries No Data Provided for This Section History and Physicals No Data Provided for This Section Vital Signs Vital Sign Value Date Comments Source Weight 75.909 10/01/2016 [facility] BMI Calculated 29.64 10/01/2016 [facility] Height 160.02 cm 10/01/2016 [facility] Respitory Rate 16 10/01/2016 [facility] Heart Rate 86 10/01/2016 [facility] Systolic (mm Hg) 120 10/01/2016 [facility] Diastolic (mm Hg) 62 10/01/2016 [facility] Height 160.02 cm 07/02/2016 [facility] Respitory Rate 18 07/02/2016 [facility] Heart Rate 90 07/02/2016 [facility] BMI Calculated 30.89 07/02/2016 [facility] Weight 79.091 07/02/2016 [facility] Systolic (mm Hg) 114 07/02/2016 [facility] Diastolic (mm Hg) 65 07/02/2016 [facility] Encounters Location Location Encounter Encounter Reason Attending ADM DC Status Source Details Type Number For Provider Date Date Visit [facility] Outpatient [id number] [place] 07/02 07/03 [facility] Outpatient [id number] [place] 10/01 10/02 [facility] Procedures Procedure Code Date Perfomer Comments Source Colonoscopy [id number] [facility] Endoscopy of GI [id number] [facility] Assessment and Plan No Data Provided for This Section Plan of Care No Data Provided for This Section Social History Social History Date Source Social History TypeResponse 07/02/2016 [facility] Alcohol Past Smoking Status Former smoker; Ready to change: No; Concerns about tobacco use in household: No ; Exposure to Tobacco Smoke None; Cigarette Smoking Last 365 Days No; Reg Smoking Cessation Counseling No Family History No Data Provided for This Section Advance Directives No Data Provided for This Section Functional Status No Data Provided for This Section
--- OUTSIDE RECORDS SUMMARY | 2018-11-12 12:56 | XMS REPORT ---
:1945 [facility] [address] [place] [address] Care Team Providers Name Role Phone MARIELAJose SHENA MCMILLAN Unavailable Unavailable ANGELES UGALDE Unavailable Unavailable ADRIANA MAGALLANES Unavailable Unavailable WILL TINAJERO Unavailable Unavailable [...] (BEAKER) (test 175 mg/dL 70-[address] [facility] [address] [facility] gzam=4902) [facility] [address] [id number] 07:30:00 Test Item Value Reference Range Comments MAGNESIUM (BEAKER) (test 1.8 mg/dL 1.6-2.6 Specimen slightly hemolyzed bmlf=709) [id number] 07:30:00 Test Item Value Reference Range Comments PHOSPHORUS (BEAKER) (test 3.2 mg/dL 2.3-4.7 Specimen slightly hemolyzed wqrh=339) BASIC METABOLIC [id number] 07:30:00 Test Item Value Reference Range Comments SODIUM (BEAKER) (test 138 meq/L 136-145 vlyi=323) POTASSIUM (BEAKER) (test 4.2 meq/L 3.5-5.1 Specimen slightly eluh=501) hemolyzed CHLORIDE (BEAKER) (test 108 meq/L 98-107 yikf=342) CO2 (BEAKER) (test 23 meq/L 22-29 hjfx=736) BLOOD UREA NITROGEN 6 mg/dL 7-21 (BEAKER) (test frof=546) CREATININE (BEAKER) (test 0.83 mg/dL 0.57-1.25 Specimen slightly epkw=976) hemolyzed GLUCOSE RANDOM (BEAKER) 145 mg/dL 70-105 (test rmte=622) CALCIUM (BEAKER) (test 9.4 mg/dL 8.4-10.2 uxqf=678) EGFR (BEAKER) (test 68 mL/min/1.73 sq m ESTIMATED GFR IS NOT fooy=8796) ACCURATE CREATININE CLEARANCE IN PREDICTING GLOMERULAR FILTRATION RATE. ESTIMATED GFR IS NOT APPLICABLE FOR DIALYSIS PATIENTS. CBC W/PLT COUNT & AUTO [id number] 06:50:00 Test Item Value Reference Range Comments WHITE BLOOD CELL COUNT (BEAKER) (test zdyc=514) 5.5 K/ L 3.5-10.5 RED BLOOD CELL COUNT (BEAKER) (test orex=958) 3.98 M/ L 3.93-5.22 HEMOGLOBIN (BEAKER) (test rupb=424) 10.3 GM/DL 11.2-15.7 HEMATOCRIT (BEAKER) (test zblq=730) 36.3 % 34.1-44.9 MEAN CORPUSCULAR VOLUME (BEAKER) (test siqe=973) 91.2 fL 79.4-94.8 MEAN CORPUSCULAR HEMOGLOBIN (BEAKER) (test 25.9 pg 25.6-32.2 swdz=485) MEAN CORPUSCULAR HEMOGLOBIN CONC (BEAKER) (test 28.4 GM/DL 32.2-35.5 ontm=743) RED CELL DISTRIBUTION WIDTH (BEAKER) (test 16.4 % 11.7-14.4 aidh=404) PLATELET COUNT (BEAKER) (test lprk=142) 354 K/CU MM 150-450 MEAN PLATELET VOLUME (BEAKER) (test wfya=195) 9.9 fL 9.4-12.3 NUCLEATED RED BLOOD CELLS (BEAKER) (test 0 /100 WBC 0-0 ukuz=191) NEUTROPHILS RELATIVE PERCENT (BEAKER) (test 68 % huth=762) LYMPHOCYTES RELATIVE PERCENT (BEAKER) (test 14 % oyyq=204) MONOCYTES RELATIVE PERCENT (BEAKER) (test 11 % jemt=276) EOSINOPHILS RELATIVE PERCENT (BEAKER) (test 6 % ktkj=570) BASOPHILS RELATIVE PERCENT (BEAKER) (test 1 % hrsy=604) NEUTROPHILS ABSOLUTE COUNT (BEAKER) (test 3.75 K/ L 1.56-6.13 qxgd=607) LYMPHOCYTES ABSOLUTE COUNT (BEAKER) (test 0.80 K/ L 1.18-3.74 sswx=247) MONOCYTES ABSOLUTE COUNT (BEAKER) (test 0.60 K/ L 0.24-0.36 hhox=944) EOSINOPHILS ABSOLUTE COUNT (BEAKER) (test 0.33 K/ L 0.04-0.36 mcix=993) BASOPHILS ABSOLUTE COUNT (BEAKER) (test 0.05 K/ L 0.01-0.08 nyku=197) IMMATURE GRANULOCYTES-RELATIVE PERCENT (BEAKER) 0 % 0-1 (test ilzo=0590) POCT-GLUCOSE [id number] 21:15:00 Test Item Value Reference Range Comments POC-GLUCOSE METER (BEAKER) 246 mg/dL 70-110 TESTED AT [address] (test wnze=4220) [place] [address] POCT-GLUCOSE [id number] 17:16:00 Test Item Value Reference Range Comments POC-GLUCOSE METER (BEAKER) 323 mg/dL 70-110 TESTED AT [address] (test oisr=5643) [place] [address] POCT-GLUCOSE [id number] 13:13:00 Test Item Value Reference Range Comments POC-GLUCOSE METER (BEAKER) 250 mg/dL 70-110 TESTED AT [address] (test ipgy=9713) [place] [address] POCT-GLUCOSE [id number] 08:26:00 Test Item Value Reference Range Comments POC-GLUCOSE METER (BEAKER) 261 mg/dL 70-110 TESTED AT [address] (test xasu=9908) [place] [id number] CALCIUM, [id number] 06:39:00 Test Item Value Reference Range Comments CALCIUM IONIZED (BEAKER) (test ghkp=399) 1.08 mmol/L 1.12-1.27 PH, BLOOD (BEAKER) (test xxuw=2863) 7.47 [id number] 05:53:00 Test Item Value Reference Range Comments PHOSPHORUS (BEAKER) (test csbp=084) 4.1 mg/dL 2.3-4.7 [id number] 05:53:00 Test Item Value Reference Range Comments MAGNESIUM (BEAKER) (test ymib=309) 1.7 mg/dL 1.6-2.6 BASIC METABOLIC [id number] 05:53:00 Test Item Value Reference Range Comments SODIUM (BEAKER) (test 138 meq/L 136-145 yndh=344) POTASSIUM (BEAKER) (test 4.0 meq/L 3.5-5.1 tbmf=301) CHLORIDE (BEAKER) (test 106 meq/L 98-107 fyzo=295) CO2 (BEAKER) (test 25 meq/L 22-29 fxzr=132) BLOOD UREA NITROGEN 7 mg/dL 7-21 (BEAKER) (test avtz=062) CREATININE (BEAKER) (test 0.92 mg/dL 0.57-1.25 cyxf=787) GLUCOSE RANDOM (BEAKER) 213 mg/dL 70-105 (test zkrb=261) CALCIUM (BEAKER) (test 9.4 mg/dL 8.4-10.2 hhsh=923) EGFR (BEAKER) (test 60 mL/min/1.73 sq m ESTIMATED GFR IS NOT zyti=5946) ACCURATE CREATININE CLEARANCE IN PREDICTING GLOMERULAR FILTRATION RATE. ESTIMATED GFR IS NOT APPLICABLE FOR DIALYSIS PATIENTS. CBC W/PLT COUNT & AUTO [id number] 05:32:00 Test Item Value Reference Range Comments WHITE BLOOD CELL COUNT (BEAKER) (test xfzq=331) 6.9 K/ L 3.5-10.5 RED BLOOD CELL COUNT (BEAKER) (test cewc=411) 3.90 M/ L 3.93-5.22 HEMOGLOBIN (BEAKER) (test xkpz=566) 10.2 GM/DL 11.2-15.7 HEMATOCRIT (BEAKER) (test edmq=889) 32.9 % 34.1-44.9 MEAN CORPUSCULAR VOLUME (BEAKER) (test gcvm=816) 84.4 fL 79.4-94.8 MEAN CORPUSCULAR HEMOGLOBIN (BEAKER) (test 26.2 pg 25.6-32.2 mkqz=230) MEAN CORPUSCULAR HEMOGLOBIN CONC (BEAKER) (test 31.0 GM/DL 32.2-35.5 ympd=419) RED CELL DISTRIBUTION WIDTH (BEAKER) (test 16.2 % 11.7-14.4 akaq=596) PLATELET COUNT (BEAKER) (test acmi=596) 415 K/CU MM 150-450 MEAN PLATELET VOLUME (BEAKER) (test qady=808) 9.5 fL 9.4-12.3 NUCLEATED RED BLOOD CELLS (BEAKER) (test 0 /100 WBC 0-0 iqds=589) NEUTROPHILS RELATIVE PERCENT (BEAKER) (test 69 % ydxy=361) LYMPHOCYTES RELATIVE PERCENT (BEAKER) (test 14 % ldux=030) MONOCYTES RELATIVE PERCENT (BEAKER) (test 11 % burz=763) EOSINOPHILS RELATIVE PERCENT (BEAKER) (test 5 % htgk=537) BASOPHILS RELATIVE PERCENT (BEAKER) (test 1 % pndx=573) NEUTROPHILS ABSOLUTE COUNT (BEAKER) (test 4.71 K/ L 1.56-6.13 gqni=769) LYMPHOCYTES ABSOLUTE COUNT (BEAKER) (test 0.98 K/ L 1.18-3.74 myuo=970) MONOCYTES ABSOLUTE COUNT (BEAKER) (test 0.74 K/ L 0.24-0.36 zcyb=333) EOSINOPHILS ABSOLUTE COUNT (BEAKER) (test 0.35 K/ L 0.04-0.36 hjzf=096) BASOPHILS ABSOLUTE COUNT (BEAKER) (test 0.07 K/ L 0.01-0.08 whvp=114) IMMATURE GRANULOCYTES-RELATIVE PERCENT (BEAKER) 0 % 0-1 (test vdct=6797) POCT-GLUCOSE [id number] 22:58:00 Test Item Value Reference Range Comments POC-GLUCOSE METER (BEAKER) 390 mg/dL 70-110 Notified RN or MD Patient (test vyia=5490) refused repeat test/TESTED AT [address] [address] POCT-GLUCOSE [id number] 21:18:00 Test Item Value Reference Range Comments POC-GLUCOSE METER (BEAKER) 404 mg/dL 70-110 Notified PITER FELIX/TESTED AT [facility] (test slxr=4650) [address] [place] [address] POCT-GLUCOSE [id number] 17:45:00 Test Item Value Reference Range Comments POC-GLUCOSE METER (BEAKER) 217 mg/dL 70-110 TESTED AT [address] (test bndl=9228) [facility] [address] POCT-GLUCOSE [id number] 12:07:00 Test Item Value Reference Range Comments POC-GLUCOSE METER (BEAKER) 209 mg/dL 70-[address] [facility] [address] [facility] (test gnzh=9401) [facility] [address] HEMOGLOBIN [id number] 07:58:00 Test Item Value Reference Range Comments HEMOGLOBIN A1C (BEAKER) (test frdt=490) 5.8 % 4.3-6.1 TSH/FREE T4 IF [id number] 05:30:00 Test Item Value Reference Range Comments THYROID STIMULATING HORMONE (BEAKER) (test 1.75 uIU/mL 0.35-4.94 mqsd=600) POCT-GLUCOSE [id number] 05:21:00 Test Item Value Reference Range Comments POC-GLUCOSE METER (BEAKER) 213 mg/dL 70-110 TESTED AT [place] [id number] [facility] (test fuvs=6367) [place] [address] [id number] 05:11:00 Test Item Value Reference Range Comments PHOSPHORUS (BEAKER) (test yuuw=355) 4.0 mg/dL 2.3-4.7 [id number] 05:11:00 Test Item Value Reference Range Comments MAGNESIUM (BEAKER) (test uisb=008) 1.7 mg/dL 1.6-2.6 BASIC METABOLIC [id number] 05:11:00 Test Item Value Reference Range Comments SODIUM (BEAKER) (test 138 meq/L 136-145 hkos=889) POTASSIUM (BEAKER) (test 4.3 meq/L 3.5-5.1 hpge=324) CHLORIDE (BEAKER) (test 104 meq/L 98-107 jodc=388) CO2 (BEAKER) (test 26 meq/L 22-29 kskx=296) BLOOD UREA NITROGEN 7 mg/dL 7-21 (BEAKER) (test mlgq=123) CREATININE (BEAKER) (test 0.93 mg/dL 0.57-1.25 wooc=483) GLUCOSE RANDOM (BEAKER) 173 mg/dL 70-105 (test hquv=739) CALCIUM (BEAKER) (test 9.6 mg/dL 8.4-10.2 tynw=193) EGFR (BEAKER) (test 60 mL/min/1.73 sq m ESTIMATED GFR IS NOT cxvz=5170) ACCURATE CREATININE CLEARANCE IN PREDICTING GLOMERULAR FILTRATION RATE. ESTIMATED GFR IS NOT APPLICABLE FOR DIALYSIS PATIENTS. LIPID [id number] 05:11:00 Test Item Value Reference Range Comments TRIGLYCERIDES (BEAKER) (test qosx=820) 197 mg/dL CHOLESTEROL (BEAKER) (test xsqh=027) 158 mg/dL HDL CHOLESTEROL (BEAKER) (test knzm=353) 29 mg/dL LDL CHOLESTEROL CALCULATED (BEAKER) (test 90 mg/dL bsac=394) Triglyceride Reference Range: Low Risk <150 Borderline 150- 199 High Risk 200-499 Very High Risk >=500Cholesterol Reference Range: Low Risk <200 Borderline 200-239 High Risk > 240HDL Cholesterol Reference Range: Low Risk >=60 High Risk <40LDL Cholesterol Reference Range: Optimal <100 Near Optimal 100-129 Borderline 130-159 High 160-189 Very High >=190CBC W/PLT COUNT & AUTO [id number] 04:48:00 Test Item Value Reference Range Comments WHITE BLOOD CELL COUNT (BEAKER) (test tvqa=315) 7.0 K/ L 3.5-10.5 RED BLOOD CELL COUNT (BEAKER) (test nrex=337) 3.91 M/ L 3.93-5.22 HEMOGLOBIN (BEAKER) (test xnoi=577) 10.3 GM/DL 11.2-15.7 HEMATOCRIT (BEAKER) (test vllo=338) 33.3 % 34.1-44.9 MEAN CORPUSCULAR VOLUME (BEAKER) (test lbif=560) 85.2 fL 79.4-94.8 MEAN CORPUSCULAR HEMOGLOBIN (BEAKER) (test 26.3 pg 25.6-32.2 dryb=941) MEAN CORPUSCULAR HEMOGLOBIN CONC (BEAKER) (test 30.9 GM/DL 32.2-35.5 vcrd=185) RED CELL DISTRIBUTION WIDTH (BEAKER) (test 16.1 % 11.7-14.4 bxdm=419) PLATELET COUNT (BEAKER) (test gkok=840) 473 K/CU MM 150-450 MEAN PLATELET VOLUME (BEAKER) (test sxmf=251) 9.7 fL 9.4-12.3 NUCLEATED RED BLOOD CELLS (BEAKER) (test 0 /100 WBC 0-0 dace=482) NEUTROPHILS RELATIVE PERCENT (BEAKER) (test 64 % iffx=411) LYMPHOCYTES RELATIVE PERCENT (BEAKER) (test 18 % nzjp=526) MONOCYTES RELATIVE PERCENT (BEAKER) (test 11 % byfu=247) EOSINOPHILS RELATIVE PERCENT (BEAKER) (test 5 % pjmu=275) BASOPHILS RELATIVE PERCENT (BEAKER) (test 1 % hyzh=510) NEUTROPHILS ABSOLUTE COUNT (BEAKER) (test 4.50 K/ L 1.56-6.13 ejly=191) LYMPHOCYTES ABSOLUTE COUNT (BEAKER) (test 1.29 K/ L 1.18-3.74 uobu=585) MONOCYTES ABSOLUTE COUNT (BEAKER) (test 0.77 K/ L 0.24-0.36 puml=723) EOSINOPHILS ABSOLUTE COUNT (BEAKER) (test 0.38 K/ L 0.04-0.36 vclf=540) BASOPHILS ABSOLUTE COUNT (BEAKER) (test 0.08 K/ L 0.01-0.08 ffeu=330) IMMATURE GRANULOCYTES-RELATIVE PERCENT (BEAKER) 0 % 0-1 (test qrrw=3730) CALCIUM, [id number] 04:13:00 Test Item Value Reference Range Comments CALCIUM IONIZED (BEAKER) (test dwvk=233) 1.15 mmol/L 1.12-1.27 PH, BLOOD (BEAKER) (test pcni=7736) 7.47 POCT-GLUCOSE [id number] 21:03:00 Test Item Value Reference Range Comments POC-GLUCOSE METER (BEAKER) 220 mg/dL 70-110 TESTED AT [address] (test giyg=5298) [facility] [address] IRON, TIBC, % SAT. (WITHOUT FERRITIN)2016-12-13 19:01:00 Test Item Value Reference Range Comments IRON (BEAKER) (test buxf=980) 23 ug/dL 40-160 TOTAL IRON BINDING CAPACITY (BEAKER) (test 404 ug/dL 250-450 zfpf=121) IRON % SATURATION (2) (BEAKER) (test elvq=8941) 6 % 20-55 POCT-GLUCOSE [id number] 17:23:00 Test Item Value Reference Range Comments POC-GLUCOSE METER (BEAKER) 371 mg/dL 70-110 TESTED AT [address] (test uaym=2094) [facility] [address] POCT-GLUCOSE [id number] 05:33:00 Test Item Value Reference Range Comments POC-GLUCOSE METER (BEAKER) 227 mg/dL 70-110 TESTED AT [address] (test hpho=2373) [facility] [address] POCT-GLUCOSE [id number] 20:59:00 Test Item Value Reference Range Comments POC-GLUCOSE METER (BEAKER) 266 mg/dL 70-110 TESTED AT [address] (test wepb=0793) [facility] [address] POCT-GLUCOSE [id number] 20:58:00 Test Item Value Reference Range Comments POC-GLUCOSE METER (BEAKER) 300 mg/dL 70-110 TESTED AT [address] (test ntxw=9426) [facility] [address] POCT-GLUCOSE [id number] 20:58:00 Test Item Value Reference Range Comments POC-GLUCOSE METER (BEAKER) 177 mg/dL 70-110 TESTED AT [address] (test qxyp=5956) [facility] [address] HEMORRHAGE IMAGING, [id number] 13:30:00FINAL REPORT PROCEDURE: HEMORRHAGE STUDY with RBCs CPT CODE: [id number] INDICATION: Gastrointestinal Bleeding PROTOCOL: 21.5 mCi of [...] MDReport Verified Date/Time: 12/12/2016 13:30:53 Reading Location: [address] Reading Room Electronically signed by: SEAN GAYLE MD on 01:30 PMPOCT-GLUCOSE [id number] 11:21:00 Test Item Value Reference Range Comments POC-GLUCOSE METER (BEAKER) 168 mg/dL 70-110 TESTED AT [address] (test wwvs=4110) [facility] [address] POCT-GLUCOSE [id number] 11:21:00 Test Item Value Reference Range Comments POC-GLUCOSE METER (BEAKER) 184 mg/dL 70-110 TESTED AT [facility] [address] (test ntni=7036) [address] [facility] [address] BASIC METABOLIC [id number] 05:16:00 Test Item Value Reference Range Comments SODIUM (BEAKER) (test 141 meq/L 135-148 cphj=606) POTASSIUM (BEAKER) (test 4.3 meq/L 3.6-5.5 edzk=934) CHLORIDE (BEAKER) (test 105 meq/L 98-106 yxba=456) CO2 (BEAKER) (test 25 meq/L 20-29 blpu=862) BLOOD UREA NITROGEN 13 mg/dL 10-26 (BEAKER) (test tdrr=363) CREATININE (BEAKER) (test 0.90 mg/dL 0.50-1.20 xjqk=867) GLUCOSE RANDOM (BEAKER) 151 mg/dL 70-110 (test fmgi=009) CALCIUM (BEAKER) (test 9.4 mg/dL 8.5-10.5 ijej=455) EGFR (BEAKER) (test 62 mL/min/1.73 sq m ESTIMATED GFR IS NOT cfwi=3773) ACCURATE CREATININE CLEARANCE IN PREDICTING GLOMERULAR FILTRATION RATE. ESTIMATED GFR IS NOT APPLICABLE FOR DIALYSIS PATIENTS. [id number] 05:10:00 Test Item Value Reference Range Comments MAGNESIUM (BEAKER) (test odnh=939) 2.0 mg/dL 1.5-3.0 CBC W/PLT COUNT & AUTO [id number] 04:57:00 Test Item Value Reference Range Comments WHITE BLOOD CELL COUNT (BEAKER) (test mxhx=373) 8.4 K/ L 4.0-10.0 RED BLOOD CELL COUNT (BEAKER) (test mwdd=998) 3.88 M/ L 4.00-5.00 HEMOGLOBIN (BEAKER) (test ndfi=014) 10.5 GM/DL 12.0-15.0 HEMATOCRIT (BEAKER) (test lzvc=759) 32.1 % 36.0-45.0 MEAN CORPUSCULAR VOLUME (BEAKER) (test glzh=235) 82.7 fL 82.0-99.0 MEAN CORPUSCULAR HEMOGLOBIN (BEAKER) (test 27.1 pg 27.0-33.0 yelh=653) MEAN CORPUSCULAR HEMOGLOBIN CONC (BEAKER) (test 32.7 GM/DL 32.0-36.0 hllp=925) RED CELL DISTRIBUTION WIDTH (BEAKER) (test 18.1 % 10.3-14.2 jdth=328) PLATELET COUNT (BEAKER) (test lyed=546) 527 K/CU MM 150-430 MEAN PLATELET VOLUME (BEAKER) (test wzqr=018) 7.5 fL 6.5-10.5 NUCLEATED RED BLOOD CELLS (BEAKER) (test 0 /100 WBC 0-0 txuz=022) NEUTROPHILS RELATIVE PERCENT (BEAKER) (test 74 % iewm=752) LYMPHOCYTES RELATIVE PERCENT (BEAKER) (test 13 % dnqt=598) MONOCYTES RELATIVE PERCENT (BEAKER) (test 8 % wyxp=876) EOSINOPHILS RELATIVE PERCENT (BEAKER) (test 5 % ljpg=294) BASOPHILS RELATIVE PERCENT (BEAKER) (test 1 % smnm=635) NEUTROPHILS ABSOLUTE COUNT (BEAKER) (test 6.20 K/ L 1.80-8.00 zjbv=117) LYMPHOCYTES ABSOLUTE COUNT (BEAKER) (test 1.10 K/ L 1.48-4.50 lait=788) MONOCYTES ABSOLUTE COUNT (BEAKER) (test 0.60 K/ L 0.00-1.30 syms=555) EOSINOPHILS ABSOLUTE COUNT (BEAKER) (test 0.40 K/ L 0.00-0.50 vmcn=938) BASOPHILS ABSOLUTE COUNT (BEAKER) (test 0.10 K/ L 0.00-0.20 qeci=407) POCT-GLUCOSE [id number] 17:02:00 Test Item Value Reference Range Comments POC-GLUCOSE METER (BEAKER) 177 mg/dL 70-110 TESTED AT [address] (test uixd=6665) [facility] [address] POCT-GLUCOSE [id number] 11:34:00 Test Item Value Reference Range Comments POC-GLUCOSE METER (BEAKER) 207 mg/dL 70-110 TESTED AT [address] (test orqa=3179) [facility] [address] CBC W/PLT COUNT & AUTO [id number] 10:45:00 Test Item Value Reference Range Comments WHITE BLOOD CELL COUNT (BEAKER) (test lsod=181) 7.3 K/ L 4.0-10.0 RED BLOOD CELL COUNT (BEAKER) (test ynkq=406) 3.03 M/ L 4.00-5.00 HEMOGLOBIN (BEAKER) (test lmaj=925) 7.8 GM/DL 12.0-15.0 HEMATOCRIT (BEAKER) (test xldg=800) 24.1 % 36.0-45.0 MEAN CORPUSCULAR VOLUME (BEAKER) (test mmxz=378) 79.6 fL 82.0-99.0 MEAN CORPUSCULAR HEMOGLOBIN (BEAKER) (test 25.7 pg 27.0-33.0 oivq=930) MEAN CORPUSCULAR HEMOGLOBIN CONC (BEAKER) (test 32.3 GM/DL 32.0-36.0 cwhm=431) RED CELL DISTRIBUTION WIDTH (BEAKER) (test 17.3 % 10.3-14.2 dsgh=175) PLATELET COUNT (BEAKER) (test uwik=324) 581 K/CU MM 150-430 MEAN PLATELET VOLUME (BEAKER) (test ljub=658) 7.0 fL 6.5-10.5 NUCLEATED RED BLOOD CELLS (BEAKER) (test 0 /100 WBC 0-0 rzhm=682) NEUTROPHILS RELATIVE PERCENT (BEAKER) (test 70 % yaom=586) LYMPHOCYTES RELATIVE PERCENT (BEAKER) (test 17 % dkwm=643) MONOCYTES RELATIVE PERCENT (BEAKER) (test 8 % wpjv=899) EOSINOPHILS RELATIVE PERCENT (BEAKER) (test 5 % kwey=554) BASOPHILS RELATIVE PERCENT (BEAKER) (test 1 % lxan=191) NEUTROPHILS ABSOLUTE COUNT (BEAKER) (test 5.10 K/ L 1.80-8.00 bfmy=460) LYMPHOCYTES ABSOLUTE COUNT (BEAKER) (test 1.20 K/ L 1.48-4.50 phlq=087) MONOCYTES ABSOLUTE COUNT (BEAKER) (test 0.60 K/ L 0.00-1.30 ukaz=437) EOSINOPHILS ABSOLUTE COUNT (BEAKER) (test 0.30 K/ L 0.00-0.50 mpvs=811) BASOPHILS ABSOLUTE COUNT (BEAKER) (test 0.10 K/ L 0.00-0.20 zqyh=252) (MANUAL DIFFERENTIAL)2016-12-11 10:45:00 Test Item Value Reference Range Comments TOTAL COUNTED (BEAKER) (test izwg=9538) WBC MORPHOLOGY (BEAKER) (test hppi=949) Normal PLT MORPHOLOGY (BEAKER) (test ruwl=912) Normal ANISOCYTOSIS (BEAKER) (test kvng=499) 1+ few HYPOCHROMIA (BEAKER) (test srlk=313) 2+ moderate BASIC METABOLIC [id number] 09:40:00 Test Item Value Reference Range Comments SODIUM (BEAKER) (test 138 meq/L 135-148 mfgj=550) POTASSIUM (BEAKER) (test 4.5 meq/L 3.6-5.5 lqbn=493) CHLORIDE (BEAKER) (test 105 meq/L 98-106 hkif=994) CO2 (BEAKER) (test 25 meq/L 20-29 wnld=649) BLOOD UREA NITROGEN 16 mg/dL 10-26 (BEAKER) (test tpwt=967) CREATININE (BEAKER) (test 1.00 mg/dL 0.50-1.20 disv=954) GLUCOSE RANDOM (BEAKER) 168 mg/dL 70-110 (test gzhc=920) CALCIUM (BEAKER) (test 9.1 mg/dL 8.5-10.5 fhvf=689) EGFR (BEAKER) (test 55 mL/min/1.73 sq m ESTIMATED GFR IS NOT aguc=3984) ACCURATE CREATININE CLEARANCE IN PREDICTING GLOMERULAR FILTRATION RATE. ESTIMATED GFR IS NOT APPLICABLE FOR DIALYSIS PATIENTS. [id number] 09:39:00 Test Item Value Reference Range Comments PHOSPHORUS (BEAKER) (test tywa=583) 3.3 mg/dL 2.5-4.5 [id number] 09:34:00 Test Item Value Reference Range Comments MAGNESIUM (BEAKER) (test iiwq=604) 2.1 mg/dL 1.5-3.0 POCT-GLUCOSE [id number] 06:01:00 Test Item Value Reference Range Comments POC-GLUCOSE METER (BEAKER) 171 mg/dL 70-110 TESTED AT [address] (test xgpq=9906) [address] [facility] [address] POCT-GLUCOSE [id number] 06:00:00 Test Item Value Reference Range Comments POC-GLUCOSE METER (BEAKER) 148 mg/dL 70-110 TESTED AT [address] (test tnpn=7021) [address] [facility] [id number] URINALYSIS W/ [id number] 05:01:00 Test Item Value Reference Range Comments COLOR (BEAKER) (test vveo=776) Yellow CLARITY (BEAKER) (test bugv=170) Clear SPECIFIC GRAVITY UA (BEAKER) (test eqfh=992) 1.020 1.001-1.035 PH UA (BEAKER) (test kbxh=255) 5.5 5.0-8.0 PROTEIN UA (BEAKER) (test gohe=780) Negative Negative GLUCOSE UA (BEAKER) (test twct=840) Negative Negative KETONES UA (BEAKER) (test wnox=965) Negative Negative BILIRUBIN UA (BEAKER) (test igyw=764) Negative Negative BLOOD UA (BEAKER) (test eehw=792) Negative Negative NITRITE UA (BEAKER) (test ucor=995) Negative Negative LEUKOCYTE ESTERASE UA (BEAKER) (test Negative Negative ldxl=224) UROBILINOGEN UA (BEAKER) (test uuts=845) 0.2 mg/dL 0.2-1.0 BACTERIA (BEAKER) (test xxqv=512) Occasional RBC UA-MANUAL (BEAKER) (test kond=0690) None Seen /HPF WBC UA-MANUAL (BEAKER) (test durj=1178) <5 /HPF SQUAMOUS EPITHELIAL MANUAL (BEAKER) (test <5 /HPF ydsh=7252) SOURCE(BEAKER) (test vxkn=0802) RAD, CHEST, 1 VIEW, NON [id number] 21:04:00Reason for exam:->coughShould this be performed at the bedside?->YesFINAL REPORT AP view of the chest dated 12/10/2016 COMPARISON: November 25, 2016 CLINICAL INFORMATION: cough Comment: Heart is normal in size. Pulmonary vasculature is unremarkable. Lungs are clear. No pulmonary infiltrate or pleural effusion is present. Spinal stimulating deviceis seen overlying the mid thoracic spine. Impression: No active cardiopulmonary disease or intervalchange. Signed: Sam Sanchezort Verified Date/Time: 12/10/2016 21:04:27 Reading Location: [address] Consult Reading Room OCCULT BLOOD, [id number] 20:24:00 Test Item Value Reference Range Comments FECAL OCCULT BLOOD (BEAKER) (test lrin=641) Positive Negative CBC W/PLT COUNT & AUTO [id number] 20:10:00 Test Item Value Reference Range Comments WHITE BLOOD CELL COUNT (BEAKER) (test ssvm=108) 14.8 K/ L 4.0-10.0 RED BLOOD CELL COUNT (BEAKER) (test hfig=902) 3.09 M/ L 4.00-5.00 HEMOGLOBIN (BEAKER) (test qyas=006) 7.8 GM/DL 12.0-15.0 HEMATOCRIT (BEAKER) (test mzka=188) 24.3 % 36.0-45.0 MEAN CORPUSCULAR VOLUME (BEAKER) (test ugdf=066) 78.7 fL 82.0-99.0 MEAN CORPUSCULAR HEMOGLOBIN (BEAKER) (test 25.2 pg 27.0-33.0 qfmm=306) MEAN CORPUSCULAR HEMOGLOBIN CONC (BEAKER) (test 32.1 GM/DL 32.0-36.0 tvtf=535) RED CELL DISTRIBUTION WIDTH (BEAKER) (test 17.7 % 10.3-14.2 slxo=574) PLATELET COUNT (BEAKER) (test pcwy=368) 784 K/CU MM 150-430 MEAN PLATELET VOLUME (BEAKER) (test tsqo=589) 7.7 fL 6.5-10.5 NUCLEATED RED BLOOD CELLS (BEAKER) (test 0 /100 WBC 0-0 vyid=630) NEUTROPHILS RELATIVE PERCENT (BEAKER) (test 80 % zsup=024) LYMPHOCYTES RELATIVE PERCENT (BEAKER) (test 12 % ofyw=483) MONOCYTES RELATIVE PERCENT (BEAKER) (test 6 % wztx=380) EOSINOPHILS RELATIVE PERCENT (BEAKER) (test 2 % hfvv=532) BASOPHILS RELATIVE PERCENT (BEAKER) (test 1 % xnhk=223) NEUTROPHILS ABSOLUTE COUNT (BEAKER) (test 11.80 K/ L 1.80-8.00 kydl=339) LYMPHOCYTES ABSOLUTE COUNT (BEAKER) (test 1.70 K/ L 1.48-4.50 zgbx=284) MONOCYTES ABSOLUTE COUNT (BEAKER) (test 0.80 K/ L 0.00-1.30 kkan=705) EOSINOPHILS ABSOLUTE COUNT (BEAKER) (test 0.30 K/ L 0.00-0.50 zwqg=843) BASOPHILS ABSOLUTE COUNT (BEAKER) (test 0.10 K/ L 0.00-0.20 hppw=850) (MANUAL DIFFERENTIAL)2016-12-10 20:10:00 Test Item Value Reference Range Comments TOTAL COUNTED (BEAKER) (test nffq=3727) WBC MORPHOLOGY (BEAKER) (test piwf=413) Normal LARGE PLT(BEAKER) (test hgcy=6133) Present GIANT PLATELETS (BEAKER) (test axhb=099) Present ANISOCYTOSIS (BEAKER) (test aptl=790) 1+ few HYPOCHROMIA (BEAKER) (test fqgh=222) 2+ moderate POLYCHROMATOPHILLIC RBCS(BEAKER) (test vnub=192) 1+ few [id number] 20:07:00 Test Item Value Reference Range Comments PROTIME (BEAKER) (test thaf=451) 9.8 seconds 9.3-12.0 INR (BEAKER) (test kanp=881) 0.9 <=5.9 PARTIAL THROMBOPLASTIN TIME (BEAKER) (test 20.2 seconds 23.0-35.0 jujr=152) RECOMMENDED COUMADIN/WARFARIN INR THERAPY RANGESSTANDARD DOSE: 2.0 - 3.0 Includes: PROPHYLAXIS forvenous thrombosis, systemic embolization; TREATMENT for venous thrombosis and/or pulmonary embolus.HIGH RISK: Target INR is 2.5-3.5 for patients with mechanical heart valves.[id number] 20:07:00 Test Item Value Reference Range Comments LIPASE (BEAKER) (test ehgg=481) 37 U/L 6-51 COMPREHENSIVE METABOLIC [id number] 20:06:00 Test Item Value Reference Range Comments TOTAL PROTEIN (BEAKER) 7.2 gm/dL 6.0-8.5 (test ecth=547) ALBUMIN (BEAKER) (test 4.1 g/dL 3.5-5.0 tzau=9603) ALKALINE PHOSPHATASE 78 U/L 30-115 (BEAKER) (test rphe=613) BILIRUBIN TOTAL (BEAKER) 0.4 mg/dL 0.1-1.2 (test glov=740) SODIUM (BEAKER) (test 136 meq/L 135-148 rlfm=680) POTASSIUM (BEAKER) (test 4.5 meq/L 3.6-5.5 kklp=635) CHLORIDE (BEAKER) (test 102 meq/L 98-106 szfo=090) CO2 (BEAKER) (test 21 meq/L 20-29 gjgr=530) BLOOD UREA NITROGEN 20 mg/dL 10-26 (BEAKER) (test uogs=140) CREATININE (BEAKER) (test 1.20 mg/dL 0.50-1.20 lnjh=932) GLUCOSE RANDOM (BEAKER) 215 mg/dL 70-110 (test bhyi=031) CALCIUM (BEAKER) (test 9.7 mg/dL 8.5-10.5 lbct=063) AST (SGOT) (BEAKER) (test 19 U/L 5-40 bzac=077) ALT (SGPT) (BEAKER) (test 13 U/L 5-50 wnke=949) EGFR (BEAKER) (test 44 mL/min/1.73 sq m ESTIMATED GFR IS NOT wsla=9234) ACCURATE CREATININE CLEARANCE IN PREDICTING GLOMERULAR FILTRATION RATE. ESTIMATED GFR IS NOT APPLICABLE FOR DIALYSIS PATIENTS. BLOOD [id number] 06:00:00 Test Item Value Reference Range Comments CULTURE (BEAKER) (test mdtu=7390) No growth in 5 days BLOOD [id number] 06:00:00 Test Item Value Reference Range Comments CULTURE (BEAKER) (test dedo=5240) No growth in 5 days POCT-GLUCOSE [id number] 12:19:00 Test Item Value Reference Range Comments POC-GLUCOSE METER (BEAKER) 132 mg/dL 70-110 TESTED AT [address] (test kkhg=4579) [place] [id number] POCT-GLUCOSE [id number] 11:19:00 Test Item Value Reference Range Comments POC-GLUCOSE METER (BEAKER) 222 mg/dL 70-110 TESTED AT [address] (test mxvf=0997) [place] [id number] POCT-GLUCOSE [id number] 07:21:00 Test Item Value Reference Range Comments POC-GLUCOSE METER (BEAKER) 309 mg/dL 70-110 Notified PITER FELIX/TESTED AT [facility] (test azet=2286) [address] [place] [address] CBC W/PLT COUNT & AUTO [id number] 05:52:00 Test Item Value Reference Range Comments WHITE BLOOD CELL COUNT (BEAKER) (test uzqw=225) 6.8 K/ L 3.5-10.5 RED BLOOD CELL COUNT (BEAKER) (test iutx=591) 3.35 M/ L 3.93-5.22 HEMOGLOBIN (BEAKER) (test vfjc=117) 8.8 GM/DL 11.2-15.7 HEMATOCRIT (BEAKER) (test wypr=256) 29.2 % 34.1-44.9 MEAN CORPUSCULAR VOLUME (BEAKER) (test qxqt=453) 87.2 fL 79.4-94.8 MEAN CORPUSCULAR HEMOGLOBIN (BEAKER) (test 26.3 pg 25.6-32.2 qyhu=712) MEAN CORPUSCULAR HEMOGLOBIN CONC (BEAKER) (test 30.1 GM/DL 32.2-35.5 yqbp=408) RED CELL DISTRIBUTION WIDTH (BEAKER) (test 14.8 % 11.7-14.4 rhve=013) PLATELET COUNT (BEAKER) (test rfrx=101) 285 K/CU MM 150-450 MEAN PLATELET VOLUME (BEAKER) (test apxe=538) 10.4 fL 9.4-12.3 NUCLEATED RED BLOOD CELLS (BEAKER) (test 0 /100 WBC 0-0 rvva=333) NEUTROPHILS RELATIVE PERCENT (BEAKER) (test 69 % usne=125) LYMPHOCYTES RELATIVE PERCENT (BEAKER) (test 15 % pxdv=422) MONOCYTES RELATIVE PERCENT (BEAKER) (test 9 % ktci=669) EOSINOPHILS RELATIVE PERCENT (BEAKER) (test 6 % ydjd=865) BASOPHILS RELATIVE PERCENT (BEAKER) (test 1 % ksqt=023) NEUTROPHILS ABSOLUTE COUNT (BEAKER) (test 4.66 K/ L 1.56-6.13 akav=523) LYMPHOCYTES ABSOLUTE COUNT (BEAKER) (test 1.02 K/ L 1.18-3.74 hqqt=822) MONOCYTES ABSOLUTE COUNT (BEAKER) (test 0.61 K/ L 0.24-0.36 mong=165) EOSINOPHILS ABSOLUTE COUNT (BEAKER) (test 0.39 K/ L 0.04-0.36 yxyw=243) BASOPHILS ABSOLUTE COUNT (BEAKER) (test 0.04 K/ L 0.01-0.08 aqjw=565) IMMATURE GRANULOCYTES-RELATIVE PERCENT (BEAKER) 0 % 0-1 (test klqc=7412) POCT-GLUCOSE [id number] 21:36:00 Test Item Value Reference Range Comments POC-GLUCOSE METER (BEAKER) 284 mg/dL 70-110 TESTED AT [address] (test ttqt=7642) [facility] [address] POCT-GLUCOSE [id number] 17:03:00 Test Item Value Reference Range Comments POC-GLUCOSE METER (BEAKER) 394 mg/dL 70-110 Notified PITER FELIX/TESTED AT [facility] (test izaf=8985) [address] [place] [address] POCT-GLUCOSE [id number] 11:47:00 Test Item Value Reference Range Comments POC-GLUCOSE METER (BEAKER) 332 mg/dL 70-110 Notified PITER FELIX/TESTED AT [facility] (test ardl=2804) [address] [place] [address] POCT-GLUCOSE [id number] 07:19:00 Test Item Value Reference Range Comments POC-GLUCOSE METER (BEAKER) 350 mg/dL 70-110 Notified PITER FELIX/TESTED AT [facility] (test ohwn=8708) [address] [place] [address] BASIC METABOLIC [id number] 05:27:00 Test Item Value Reference Range Comments SODIUM (BEAKER) (test 137 meq/L 136-145 bogb=281) POTASSIUM (BEAKER) (test 4.1 meq/L 3.5-5.1 orun=111) CHLORIDE (BEAKER) (test 106 meq/L 98-107 lumc=767) CO2 (BEAKER) (test 23 meq/L 22-29 fxjl=682) BLOOD UREA NITROGEN 9 mg/dL 7-21 (BEAKER) (test jpmd=770) CREATININE (BEAKER) (test 0.85 mg/dL 0.57-1.25 gsik=742) GLUCOSE RANDOM (BEAKER) 284 mg/dL 70-105 (test jqxq=572) CALCIUM (BEAKER) (test 8.9 mg/dL 8.4-10.2 uroe=285) EGFR (BEAKER) (test 66 mL/min/1.73 sq m ESTIMATED GFR IS NOT ngul=7174) ACCURATE CREATININE CLEARANCE IN PREDICTING GLOMERULAR FILTRATION RATE. ESTIMATED GFR IS NOT APPLICABLE FOR DIALYSIS PATIENTS. CBC W/PLT COUNT & AUTO [id number] 05:05:00 Test Item Value Reference Range Comments WHITE BLOOD CELL COUNT (BEAKER) (test shpb=143) 5.7 K/ L 3.5-10.5 RED BLOOD CELL COUNT (BEAKER) (test turv=223) 3.10 M/ L 3.93-5.22 HEMOGLOBIN (BEAKER) (test kppa=881) 8.3 GM/DL 11.2-15.7 HEMATOCRIT (BEAKER) (test juyf=967) 26.9 % 34.1-44.9 MEAN CORPUSCULAR VOLUME (BEAKER) (test pntq=087) 86.8 fL 79.4-94.8 MEAN CORPUSCULAR HEMOGLOBIN (BEAKER) (test 26.8 pg 25.6-32.2 tuvs=843) MEAN CORPUSCULAR HEMOGLOBIN CONC (BEAKER) (test 30.9 GM/DL 32.2-35.5 lkek=656) RED CELL DISTRIBUTION WIDTH (BEAKER) (test 14.8 % 11.7-14.4 rlzx=135) PLATELET COUNT (BEAKER) (test xtaa=246) 254 K/CU MM 150-450 MEAN PLATELET VOLUME (BEAKER) (test vsev=472) 10.6 fL 9.4-12.3 NUCLEATED RED BLOOD CELLS (BEAKER) (test 0 /100 WBC 0-0 grib=475) NEUTROPHILS RELATIVE PERCENT (BEAKER) (test 69 % rwlz=649) LYMPHOCYTES RELATIVE PERCENT (BEAKER) (test 16 % mxvg=146) MONOCYTES RELATIVE PERCENT (BEAKER) (test 8 % bios=346) EOSINOPHILS RELATIVE PERCENT (BEAKER) (test 5 % ajvf=106) BASOPHILS RELATIVE PERCENT (BEAKER) (test 1 % mlqh=920) NEUTROPHILS ABSOLUTE COUNT (BEAKER) (test 3.92 K/ L 1.56-6.13 iptl=524) LYMPHOCYTES ABSOLUTE COUNT (BEAKER) (test 0.92 K/ L 1.18-3.74 bnsy=183) MONOCYTES ABSOLUTE COUNT (BEAKER) (test 0.46 K/ L 0.24-0.36 thgj=364) EOSINOPHILS ABSOLUTE COUNT (BEAKER) (test 0.30 K/ L 0.04-0.36 yeve=546) BASOPHILS ABSOLUTE COUNT (BEAKER) (test 0.05 K/ L 0.01-0.08 eubx=306) IMMATURE GRANULOCYTES-RELATIVE PERCENT (BEAKER) 0 % 0-1 (test edwf=5643) POCT-GLUCOSE [id number] 22:29:00 Test Item Value Reference Range Comments POC-GLUCOSE METER (BEAKER) 256 mg/dL 70-110 TESTED AT [address] (test nuep=0823) [place] [id number] POCT-GLUCOSE [id number] 18:52:00 Test Item Value Reference Range Comments POC-GLUCOSE METER (BEAKER) 366 mg/dL 70-110 Notified PITER FELIX/TESTED AT [facility] (test ijdg=4391) [address] [place] [address] POCT-GLUCOSE [id number] 12:02:00 Test Item Value Reference Range Comments POC-GLUCOSE METER (BEAKER) 399 mg/dL 70-110 Notified PITER FELIX/TESTED AT [facility] (test xtst=2409) [address] [place] [address] POCT-GLUCOSE [id number] 09:06:00 Test Item Value Reference Range Comments POC-GLUCOSE METER (BEAKER) 236 mg/dL 70-110 TESTED AT [address] (test ukna=7789) [facility] [address] POCT-GLUCOSE [id number] 08:28:00 Test Item Value Reference Range Comments POC-GLUCOSE METER (BEAKER) 271 mg/dL 70-110 TESTED AT [address] (test rppa=5398) [facility] [address] POCT-GLUCOSE [id number] 06:31:00 Test Item Value Reference Range Comments POC-GLUCOSE METER (BEAKER) 236 mg/dL 70-110 TESTED AT [address] (test xxte=9165) [facility] [address] BASIC METABOLIC [id number] 05:14:00 Test Item Value Reference Range Comments SODIUM (BEAKER) (test 139 meq/L 136-145 kszk=557) POTASSIUM (BEAKER) (test 4.2 meq/L 3.5-5.1 zdkd=031) CHLORIDE (BEAKER) (test 106 meq/L 98-107 teue=471) CO2 (BEAKER) (test 27 meq/L 22-29 stqv=895) BLOOD UREA NITROGEN 9 mg/dL 7-21 (BEAKER) (test cwyw=510) CREATININE (BEAKER) (test 0.93 mg/dL 0.57-1.25 szhu=916) GLUCOSE RANDOM (BEAKER) 257 mg/dL 70-105 (test sgts=135) CALCIUM (BEAKER) (test 8.9 mg/dL 8.4-10.2 dumm=951) EGFR (BEAKER) (test 60 mL/min/1.73 sq m ESTIMATED GFR IS NOT gzxb=0518) ACCURATE CREATININE CLEARANCE IN PREDICTING GLOMERULAR FILTRATION RATE. ESTIMATED GFR IS NOT APPLICABLE FOR DIALYSIS PATIENTS. HEMOGLOBIN AND [id number] 05:02:00 Test Item Value Reference Range Comments HEMOGLOBIN (BEAKER) (test vuso=873) 7.9 GM/DL 11.2-15.7 HEMATOCRIT (BEAKER) (test uqby=866) 25.5 % 34.1-44.9 POCT-GLUCOSE [id number] 22:05:00 Test Item Value Reference Range Comments POC-GLUCOSE METER (BEAKER) 235 mg/dL 70-110 TESTED AT [address] (test aygx=1733) [place] [address] POCT-GLUCOSE [id number] 21:56:00 Test Item Value Reference Range Comments POC-GLUCOSE METER (BEAKER) 274 mg/dL 70-110 TESTED AT [address] (test ipwf=4031) [place] [address] HEMOGLOBIN AND [id number] 21:00:00 Test Item Value Reference Range Comments HEMOGLOBIN (BEAKER) (test ttcp=097) 7.9 GM/DL 11.2-15.7 HEMATOCRIT (BEAKER) (test uboh=804) 26.1 % 34.1-44.9 POCT-GLUCOSE [id number] 17:28:00 Test Item Value Reference Range Comments POC-GLUCOSE METER (BEAKER) 291 mg/dL 70-110 TESTED AT [address] (test ruhx=5839) [place] [address] VANCOMYCIN LEVEL, [id number] 14:15:00 Test Item Value Reference Range Comments VANCOMYCIN TROUGH (BEAKER) (test mlre=241) 18.1 ug/mL 10.0-20.0 HEMOGLOBIN AND [id number] 13:53:00 Test Item Value Reference Range Comments HEMOGLOBIN (BEAKER) (test rpho=266) 8.6 GM/DL 11.2-15.7 HEMATOCRIT (BEAKER) (test ditd=098) 28.0 % 34.1-44.9 POCT-GLUCOSE [id number] 06:09:00 Test Item Value Reference Range Comments POC-GLUCOSE METER (BEAKER) 205 mg/dL 70-[address] [facility] [address] [facility] (test rzlb=6885) [facility] [address] BASIC METABOLIC [id number] 03:51:00 Test Item Value Reference Range Comments SODIUM (BEAKER) (test 134 meq/L 136-145 dntc=202) POTASSIUM (BEAKER) (test 4.4 meq/L 3.5-5.1 Specimen slightly lutr=787) hemolyzed CHLORIDE (BEAKER) (test 105 meq/L 98-107 eybi=759) CO2 (BEAKER) (test 22 meq/L 22-29 rgcc=731) BLOOD UREA NITROGEN 8 mg/dL 7-21 (BEAKER) (test crrd=281) CREATININE (BEAKER) (test 0.96 mg/dL 0.57-1.25 Specimen slightly aknu=609) hemolyzed GLUCOSE RANDOM (BEAKER) 196 mg/dL 70-105 (test aspy=168) CALCIUM (BEAKER) (test 8.4 mg/dL 8.4-10.2 brvs=445) EGFR (BEAKER) (test 58 mL/min/1.73 sq m ESTIMATED GFR IS NOT fxmt=0179) ACCURATE CREATININE CLEARANCE IN PREDICTING GLOMERULAR FILTRATION RATE. ESTIMATED GFR IS NOT APPLICABLE FOR DIALYSIS PATIENTS. CBC W/PLT COUNT & AUTO [id number] 03:28:00 Test Item Value Reference Range Comments WHITE BLOOD CELL COUNT (BEAKER) (test mgyu=032) 6.2 K/ L 3.5-10.5 RED BLOOD CELL COUNT (BEAKER) (test pmnb=073) 2.95 M/ L 3.93-5.22 HEMOGLOBIN (BEAKER) (test efzk=939) 7.9 GM/DL 11.2-15.7 HEMATOCRIT (BEAKER) (test hirg=888) 25.4 % 34.1-44.9 MEAN CORPUSCULAR VOLUME (BEAKER) (test ykqo=709) 86.1 fL 79.4-94.8 MEAN CORPUSCULAR HEMOGLOBIN (BEAKER) (test 26.8 pg 25.6-32.2 nbpa=573) MEAN CORPUSCULAR HEMOGLOBIN CONC (BEAKER) (test 31.1 GM/DL 32.2-35.5 toal=471) RED CELL DISTRIBUTION WIDTH (BEAKER) (test 15.2 % 11.7-14.4 uyqa=168) PLATELET COUNT (BEAKER) (test jrof=407) 256 K/CU MM 150-450 MEAN PLATELET VOLUME (BEAKER) (test cflx=145) 9.7 fL 9.4-12.3 NUCLEATED RED BLOOD CELLS (BEAKER) (test 0 /100 WBC 0-0 ymkc=133) NEUTROPHILS RELATIVE PERCENT (BEAKER) (test 71 % andi=981) LYMPHOCYTES RELATIVE PERCENT (BEAKER) (test 12 % datl=234) MONOCYTES RELATIVE PERCENT (BEAKER) (test 11 % vymj=421) EOSINOPHILS RELATIVE PERCENT (BEAKER) (test 6 % xpfm=058) BASOPHILS RELATIVE PERCENT (BEAKER) (test 1 % dgux=001) NEUTROPHILS ABSOLUTE COUNT (BEAKER) (test 4.40 K/ L 1.56-6.13 rbzn=334) LYMPHOCYTES ABSOLUTE COUNT (BEAKER) (test 0.72 K/ L 1.18-3.74 uebu=577) MONOCYTES ABSOLUTE COUNT (BEAKER) (test 0.68 K/ L 0.24-0.36 zfot=636) EOSINOPHILS ABSOLUTE COUNT (BEAKER) (test 0.38 K/ L 0.04-0.36 gfir=767) BASOPHILS ABSOLUTE COUNT (BEAKER) (test 0.04 K/ L 0.01-0.08 ptbn=390) IMMATURE GRANULOCYTES-RELATIVE PERCENT (BEAKER) 0 % 0-1 (test wevq=1185) POCT-GLUCOSE [id number] 00:46:00 Test Item Value Reference Range Comments POC-GLUCOSE METER (BEAKER) 331 mg/dL 70-[address] [facility] [address] [facility] (test dxrb=5173) [facility] [address] HEMOGLOBIN AND [id number] 23:35:00 Test Item Value Reference Range Comments HEMOGLOBIN (BEAKER) (test iihb=515) 8.0 GM/DL 11.2-15.7 HEMATOCRIT (BEAKER) (test oxsv=156) 24.9 % 34.1-44.9 POCT-GLUCOSE [id number] 18:09:00 Test Item Value Reference Range Comments POC-GLUCOSE METER (BEAKER) 391 mg/dL 70-110 Notified PITER FELIX/TESTED AT [facility] (test vyox=0154) [facility] [address] HEMOGLOBIN AND [id number] 16:39:00 Test Item Value Reference Range Comments HEMOGLOBIN (BEAKER) (test tczc=164) 6.7 GM/DL 11.2-15.7 HEMATOCRIT (BEAKER) (test oubj=971) 22.4 % 34.1-44.9 POCT-GLUCOSE [id number] 12:39:00 Test Item Value Reference Range Comments POC-GLUCOSE METER (BEAKER) 238 mg/dL 70-110 TESTED AT [address] (test evmk=1784) [facility] [address] HEMOGLOBIN AND [id number] 11:15:00 Test Item Value Reference Range Comments HEMOGLOBIN (BEAKER) (test enzy=877) 7.5 GM/DL 11.2-15.7 HEMATOCRIT (BEAKER) (test krmd=109) 24.9 % 34.1-44.9 CBC W/PLT COUNT & AUTO [id number] 07:49:00 Test Item Value Reference Range Comments WHITE BLOOD CELL COUNT (BEAKER) (test dfze=493) 12.0 K/ L 3.5-10.5 RED BLOOD CELL COUNT (BEAKER) (test qgsf=833) 2.12 M/ L 3.93-5.22 HEMOGLOBIN (BEAKER) (test lyhi=428) 5.5 GM/DL 11.2-15.7 HEMATOCRIT (BEAKER) (test kzue=697) 18.8 % 34.1-44.9 MEAN CORPUSCULAR VOLUME (BEAKER) (test jbyy=089) 88.7 fL 79.4-94.8 MEAN CORPUSCULAR HEMOGLOBIN (BEAKER) (test 25.9 pg 25.6-32.2 suel=429) MEAN CORPUSCULAR HEMOGLOBIN CONC (BEAKER) (test 29.3 GM/DL 32.2-35.5 iktz=625) RED CELL DISTRIBUTION WIDTH (BEAKER) (test 16.0 % 11.7-14.4 ujcj=085) PLATELET COUNT (BEAKER) (test diwb=841) 301 K/CU MM 150-450 MEAN PLATELET VOLUME (BEAKER) (test ufnl=541) 10.3 fL 9.4-12.3 NUCLEATED RED BLOOD CELLS (BEAKER) (test 0 /100 WBC 0-0 wntp=022) NEUTROPHILS RELATIVE PERCENT (BEAKER) (test 89 % hjwi=284) LYMPHOCYTES RELATIVE PERCENT (BEAKER) (test 4 % sxzk=999) MONOCYTES RELATIVE PERCENT (BEAKER) (test 5 % vjyu=276) EOSINOPHILS RELATIVE PERCENT (BEAKER) (test 1 % wbkc=734) BASOPHILS RELATIVE PERCENT (BEAKER) (test 0 % acvw=302) NEUTROPHILS ABSOLUTE COUNT (BEAKER) (test 10.60 K/ L 1.56-6.13 ruex=309) LYMPHOCYTES ABSOLUTE COUNT (BEAKER) (test 0.50 K/ L 1.18-3.74 bdtr=946) MONOCYTES ABSOLUTE COUNT (BEAKER) (test 0.64 K/ L 0.24-0.36 fnzx=112) EOSINOPHILS ABSOLUTE COUNT (BEAKER) (test 0.14 K/ L 0.04-0.36 aljj=795) BASOPHILS ABSOLUTE COUNT (BEAKER) (test 0.02 K/ L 0.01-0.08 asus=069) IMMATURE GRANULOCYTES-RELATIVE PERCENT (BEAKER) 0 % 0-1 (test bztw=3315) POCT-GLUCOSE [id number] 06:45:00 Test Item Value Reference Range Comments POC-GLUCOSE METER (BEAKER) 205 mg/dL 70-[address] [facility] [address] [facility] (test ebtq=8846) [facility] [address] LACTIC ACID, VENOUS, WHOLE [id number] 01:37:00 Test Item Value Reference Range Comments LACTATE BLOOD VENOUS (2) (BEAKER) (test 1.9 mmol/L 0.5-2.2 cjyj=7861) Effective 07/31/2015: Units/Reference Range ChangeNew: 0.5-2.2 mmol/L Previous: 5 -20 mg/dLCOMPREHENSIVE METABOLIC [id number] 00:19:00 Test Item Value Reference Range Comments TOTAL PROTEIN (BEAKER) 6.8 gm/dL 6.0-8.3 (test saxf=332) ALBUMIN (BEAKER) (test 3.9 g/dL 3.5-5.0 atti=8355) ALKALINE PHOSPHATASE 78 U/L 40-150 (BEAKER) (test cazr=204) BILIRUBIN TOTAL (BEAKER) 0.5 mg/dL 0.2-1.2 (test efls=252) SODIUM (BEAKER) (test 140 meq/L 136-145 yahe=584) POTASSIUM (BEAKER) (test 4.3 meq/L 3.5-5.1 zlot=923) CHLORIDE (BEAKER) (test 107 meq/L 98-107 vhbl=549) CO2 (BEAKER) (test 21 meq/L 22-29 pnnl=218) BLOOD UREA NITROGEN 12 mg/dL 7-21 (BEAKER) (test ikjb=482) CREATININE (BEAKER) (test 1.18 mg/dL 0.57-1.25 qqte=874) GLUCOSE RANDOM (BEAKER) 178 mg/dL 70-105 (test iylt=126) CALCIUM (BEAKER) (test 9.2 mg/dL 8.4-10.2 rbzv=604) AST (SGOT) (BEAKER) (test 15 U/L 5-34 wpuo=341) ALT (SGPT) (BEAKER) (test 14 U/L 6-55 uutw=589) EGFR (BEAKER) (test 45 mL/min/1.73 sq m ESTIMATED GFR IS NOT esaq=4210) ACCURATE CREATININE CLEARANCE IN PREDICTING GLOMERULAR FILTRATION RATE. ESTIMATED GFR IS NOT APPLICABLE FOR DIALYSIS PATIENTS. [id number] 00:17:00 Test Item Value Reference Range Comments PHOSPHORUS (BEAKER) (test yedx=799) 3.2 mg/dL 2.3-4.7 [id number] 00:17:00 Test Item Value Reference Range Comments MAGNESIUM (BEAKER) (test fxsd=994) 2.1 mg/dL 1.6-2.6 POCT-GLUCOSE [id number] 00:17:00 Test Item Value Reference Range Comments POC-GLUCOSE METER (BEAKER) 200 mg/dL 70-[address] [facility] [address] [facility] (test blbr=7225) [facility] [address] PROTHROMBIN [id number] 00:07:00 Test Item Value Reference Range Comments PROTIME (BEAKER) (test fghl=770) 16.1 seconds 11.7-14.7 INR (BEAKER) (test ajwm=619) 1.3 <=5.9 RECOMMENDED COUMADIN/WARFARIN INR THERAPY RANGESSTANDARD DOSE: 2.0 - 3.0 Includes: PROPHYLAXIS forvenous thrombosis, systemic embolization; TREATMENT for venous thrombosis and/or pulmonary embolus.HIGH RISK: Target INR is 2.5-3.5 for patients with mechanical heart valves.CBC W/PLT COUNT & AUTO [id number] 00:03:00 Test Item Value Reference Range Comments WHITE BLOOD CELL COUNT (BEAKER) (test kfth=514) 14.3 K/ L 3.5-10.5 RED BLOOD CELL COUNT (BEAKER) (test ydmo=141) 2.61 M/ L 3.93-5.22 HEMOGLOBIN (BEAKER) (test ohul=420) 6.9 GM/DL 11.2-15.7 HEMATOCRIT (BEAKER) (test kjjm=004) 23.6 % 34.1-44.9 MEAN CORPUSCULAR VOLUME (BEAKER) (test areb=305) 90.4 fL 79.4-94.8 MEAN CORPUSCULAR HEMOGLOBIN (BEAKER) (test 26.4 pg 25.6-32.2 zpce=934) MEAN CORPUSCULAR HEMOGLOBIN CONC (BEAKER) (test 29.2 GM/DL 32.2-35.5 hmey=373) RED CELL DISTRIBUTION WIDTH (BEAKER) (test 15.9 % 11.7-14.4 pwsn=330) PLATELET COUNT (BEAKER) (test rmoa=294) 392 K/CU MM 150-450 MEAN PLATELET VOLUME (BEAKER) (test quco=062) 10.0 fL 9.4-12.3 NUCLEATED RED BLOOD CELLS (BEAKER) (test 0 /100 WBC 0-0 zrav=056) NEUTROPHILS RELATIVE PERCENT (BEAKER) (test 87 % rbqf=523) LYMPHOCYTES RELATIVE PERCENT (BEAKER) (test 9 % ritb=239) MONOCYTES RELATIVE PERCENT (BEAKER) (test 2 % nsgn=497) EOSINOPHILS RELATIVE PERCENT (BEAKER) (test 1 % mzji=382) BASOPHILS RELATIVE PERCENT (BEAKER) (test 0 % nhvy=650) NEUTROPHILS ABSOLUTE COUNT (BEAKER) (test 12.44 K/ L 1.56-6.13 oyzv=943) LYMPHOCYTES ABSOLUTE COUNT (BEAKER) (test 1.24 K/ L 1.18-3.74 asxt=788) MONOCYTES ABSOLUTE COUNT (BEAKER) (test 0.30 K/ L 0.24-0.36 vuar=017) EOSINOPHILS ABSOLUTE COUNT (BEAKER) (test 0.18 K/ L 0.04-0.36 cxoc=464) BASOPHILS ABSOLUTE COUNT (BEAKER) (test 0.05 K/ L 0.01-0.08 acag=436) IMMATURE GRANULOCYTES-RELATIVE PERCENT (BEAKER) 1 % 0-1 (test xxls=5104) POCT-GLUCOSE [id number] 11:41:00 Test Item Value Reference Range Comments POC-GLUCOSE METER (BEAKER) 259 mg/dL 70-[address] [facility] [address] [facility] (test qtml=7497) [facility] [address] [id number] 07:35:00 Test Item Value Reference Range Comments PHOSPHORUS (BEAKER) (test xncg=851) 3.5 mg/dL 2.3-4.7 [id number] 07:35:00 Test Item Value Reference Range Comments MAGNESIUM (BEAKER) (test ejjt=470) 1.6 mg/dL 1.6-2.6 BASIC METABOLIC [id number] 07:35:00 Test Item Value Reference Range Comments SODIUM (BEAKER) (test 134 meq/L 136-145 oekc=092) POTASSIUM (BEAKER) (test 4.0 meq/L 3.5-5.1 bzof=281) CHLORIDE (BEAKER) (test 103 meq/L 98-107 bnlx=605) CO2 (BEAKER) (test 23 meq/L 22-29 cbvs=092) BLOOD UREA NITROGEN 12 mg/dL 7-21 (BEAKER) (test ibrr=009) CREATININE (BEAKER) (test 1.10 mg/dL 0.57-1.25 rtzo=242) GLUCOSE RANDOM (BEAKER) 231 mg/dL 70-105 (test tsah=882) CALCIUM (BEAKER) (test 8.5 mg/dL 8.4-10.2 utmy=420) EGFR (BEAKER) (test 49 mL/min/1.73 sq m ESTIMATED GFR IS NOT axqc=0789) ACCURATE CREATININE CLEARANCE IN PREDICTING GLOMERULAR FILTRATION RATE. ESTIMATED GFR IS NOT APPLICABLE FOR DIALYSIS PATIENTS. POCT-GLUCOSE [id number] 07:33:00 Test Item Value Reference Range Comments POC-GLUCOSE METER (BEAKER) 247 mg/dL 70-[address] [facility] [address] (test lbuy=1158) [place] [address] CBC W/PLT COUNT & AUTO [id number] 06:53:00 Test Item Value Reference Range Comments WHITE BLOOD CELL COUNT (BEAKER) (test tctm=172) 6.5 K/ L 3.5-10.5 RED BLOOD CELL COUNT (BEAKER) (test ioww=255) 3.46 M/ L 3.93-5.22 HEMOGLOBIN (BEAKER) (test stgq=086) 9.5 GM/DL 11.2-15.7 HEMATOCRIT (BEAKER) (test ybof=642) 30.5 % 34.1-44.9 MEAN CORPUSCULAR VOLUME (BEAKER) (test wowm=487) 88.2 fL 79.4-94.8 MEAN CORPUSCULAR HEMOGLOBIN (BEAKER) (test 27.5 pg 25.6-32.2 cqqm=583) MEAN CORPUSCULAR HEMOGLOBIN CONC (BEAKER) (test 31.1 GM/DL 32.2-35.5 mqwi=486) RED CELL DISTRIBUTION WIDTH (BEAKER) (test 14.7 % 11.7-14.4 vmqs=550) PLATELET COUNT (BEAKER) (test bdjm=167) 268 K/CU MM 150-450 MEAN PLATELET VOLUME (BEAKER) (test vkas=008) 10.4 fL 9.4-12.3 NUCLEATED RED BLOOD CELLS (BEAKER) (test 0 /100 WBC 0-0 jbzg=478) NEUTROPHILS RELATIVE PERCENT (BEAKER) (test 67 % mmfj=980) LYMPHOCYTES RELATIVE PERCENT (BEAKER) (test 17 % kdnj=900) MONOCYTES RELATIVE PERCENT (BEAKER) (test 11 % xpyg=417) EOSINOPHILS RELATIVE PERCENT (BEAKER) (test 5 % vjtm=485) BASOPHILS RELATIVE PERCENT (BEAKER) (test 1 % egnu=928) NEUTROPHILS ABSOLUTE COUNT (BEAKER) (test 4.33 K/ L 1.56-6.13 pkqt=715) LYMPHOCYTES ABSOLUTE COUNT (BEAKER) (test 1.12 K/ L 1.18-3.74 itqg=010) MONOCYTES ABSOLUTE COUNT (BEAKER) (test 0.68 K/ L 0.24-0.36 wihm=306) EOSINOPHILS ABSOLUTE COUNT (BEAKER) (test 0.29 K/ L 0.04-0.36 cyhw=709) BASOPHILS ABSOLUTE COUNT (BEAKER) (test 0.06 K/ L 0.01-0.08 asrr=581) IMMATURE GRANULOCYTES-RELATIVE PERCENT (BEAKER) 0 % 0-1 (test jrys=1040) POCT-GLUCOSE [id number] 21:09:00 Test Item Value Reference Range Comments POC-GLUCOSE METER (BEAKER) 398 mg/dL 70-110 Patient on insulin Drip/TESTED (test chkb=7445) AT [place] [address] POCT-GLUCOSE [id number] 17:42:00 Test Item Value Reference Range Comments POC-GLUCOSE METER (BEAKER) 341 mg/dL 70-110 TESTED AT [address] (test bjhn=3209) [place] [address] POCT-GLUCOSE [id number] 12:03:00 Test Item Value Reference Range Comments POC-GLUCOSE METER (BEAKER) 285 mg/dL 70-110 TESTED AT [address] (test akid=6150) [place] [address] POCT-GLUCOSE [id number] 06:11:00 Test Item Value Reference Range Comments POC-GLUCOSE METER (BEAKER) 335 mg/dL 70-110 TESTED AT [address] (test bzrr=4815) [place] [address] [id number] 05:12:00 Test Item Value Reference Range Comments PHOSPHORUS (BEAKER) (test qdgf=054) 4.0 mg/dL 2.3-4.7 [id number] 05:12:00 Test Item Value Reference Range Comments MAGNESIUM (BEAKER) (test syso=653) 1.5 mg/dL 1.6-2.6 BASIC METABOLIC [id number] 05:12:00 Test Item Value Reference Range Comments SODIUM (BEAKER) (test 135 meq/L 136-145 axii=056) POTASSIUM (BEAKER) (test 4.0 meq/L 3.5-5.1 ozdc=485) CHLORIDE (BEAKER) (test 103 meq/L 98-107 kesg=471) CO2 (BEAKER) (test 24 meq/L 22-29 vbyt=476) BLOOD UREA NITROGEN 11 mg/dL 7-21 (BEAKER) (test rzuj=259) CREATININE (BEAKER) (test 1.02 mg/dL 0.57-1.25 egri=854) GLUCOSE RANDOM (BEAKER) 253 mg/dL 70-105 (test ukpd=207) CALCIUM (BEAKER) (test 9.1 mg/dL 8.4-10.2 rxqb=827) EGFR (BEAKER) (test 54 mL/min/1.73 sq m ESTIMATED GFR IS NOT dxbf=7455) ACCURATE CREATININE CLEARANCE IN PREDICTING GLOMERULAR FILTRATION RATE. ESTIMATED GFR IS NOT APPLICABLE FOR DIALYSIS PATIENTS. CBC W/PLT COUNT & AUTO [id number] 04:40:00 Test Item Value Reference Range Comments WHITE BLOOD CELL COUNT (BEAKER) (test yzwi=406) 6.2 K/ L 3.5-10.5 RED BLOOD CELL COUNT (BEAKER) (test tunn=666) 3.64 M/ L 3.93-5.22 HEMOGLOBIN (BEAKER) (test prxs=944) 9.9 GM/DL 11.2-15.7 HEMATOCRIT (BEAKER) (test hhtb=602) 32.0 % 34.1-44.9 MEAN CORPUSCULAR VOLUME (BEAKER) (test zsjj=638) 87.9 fL 79.4-94.8 MEAN CORPUSCULAR HEMOGLOBIN (BEAKER) (test 27.2 pg 25.6-32.2 jskf=231) MEAN CORPUSCULAR HEMOGLOBIN CONC (BEAKER) (test 30.9 GM/DL 32.2-35.5 hrjr=467) RED CELL DISTRIBUTION WIDTH (BEAKER) (test 14.7 % 11.7-14.4 gddb=329) PLATELET COUNT (BEAKER) (test ehmg=094) 286 K/CU MM 150-450 MEAN PLATELET VOLUME (BEAKER) (test zsqn=117) 10.0 fL 9.4-12.3 NUCLEATED RED BLOOD CELLS (BEAKER) (test 0 /100 WBC 0-0 vric=082) NEUTROPHILS RELATIVE PERCENT (BEAKER) (test 67 % kktu=791) LYMPHOCYTES RELATIVE PERCENT (BEAKER) (test 17 % sukw=801) MONOCYTES RELATIVE PERCENT (BEAKER) (test 10 % qeqg=336) EOSINOPHILS RELATIVE PERCENT (BEAKER) (test 5 % ibid=915) BASOPHILS RELATIVE PERCENT (BEAKER) (test 1 % frli=157) NEUTROPHILS ABSOLUTE COUNT (BEAKER) (test 4.18 K/ L 1.56-6.13 enql=082) LYMPHOCYTES ABSOLUTE COUNT (BEAKER) (test 1.06 K/ L 1.18-3.74 canv=588) MONOCYTES ABSOLUTE COUNT (BEAKER) (test 0.61 K/ L 0.24-0.36 nwuk=834) EOSINOPHILS ABSOLUTE COUNT (BEAKER) (test 0.33 K/ L 0.04-0.36 tmll=492) BASOPHILS ABSOLUTE COUNT (BEAKER) (test 0.04 K/ L 0.01-0.08 aywb=718) IMMATURE GRANULOCYTES-RELATIVE PERCENT (BEAKER) 0 % 0-1 (test zjhc=9907) POCT-GLUCOSE [id number] 21:37:00 Test Item Value Reference Range Comments POC-GLUCOSE METER (BEAKER) 271 mg/dL 70-110 TESTED AT [address] (test qmgu=3721) [place] [id number] POCT-GLUCOSE [id number] 17:40:00 Test Item Value Reference Range Comments POC-GLUCOSE METER (BEAKER) 273 mg/dL 70-110 TESTED AT [address] (test dsnq=3113) [facility] [address] POCT-GLUCOSE [id number] 12:52:00 Test Item Value Reference Range Comments POC-GLUCOSE METER (BEAKER) 303 mg/dL 70-110 TESTED AT [address] (test tneq=4073) [place] [id number] POCT-GLUCOSE [id number] 08:44:00 Test Item Value Reference Range Comments POC-GLUCOSE METER (BEAKER) 306 mg/dL 70-110 Notified PITER FELIX/TESTED AT [facility] (test hujp=6452) [address] [place] [address] [id number] 04:53:00 Test Item Value Reference Range Comments PHOSPHORUS (BEAKER) (test rjzm=202) 4.0 mg/dL 2.3-4.7 [id number] 04:53:00 Test Item Value Reference Range Comments MAGNESIUM (BEAKER) (test kfwh=677) 1.7 mg/dL 1.6-2.6 BASIC METABOLIC [id number] 04:53:00 Test Item Value Reference Range Comments SODIUM (BEAKER) (test 135 meq/L 136-145 ykkb=810) POTASSIUM (BEAKER) (test 3.7 meq/L 3.5-5.1 xgcx=449) CHLORIDE (BEAKER) (test 101 meq/L 98-107 msqm=593) CO2 (BEAKER) (test 27 meq/L 22-29 pgpa=395) BLOOD UREA NITROGEN 10 mg/dL 7-21 (BEAKER) (test ajww=605) CREATININE (BEAKER) (test 1.02 mg/dL 0.57-1.25 xeye=535) GLUCOSE RANDOM (BEAKER) 239 mg/dL 70-105 (test mdmx=183) CALCIUM (BEAKER) (test 8.9 mg/dL 8.4-10.2 thjh=849) EGFR (BEAKER) (test 54 mL/min/1.73 sq m ESTIMATED GFR IS NOT hcir=2385) ACCURATE CREATININE CLEARANCE IN PREDICTING GLOMERULAR FILTRATION RATE. ESTIMATED GFR IS NOT APPLICABLE FOR DIALYSIS PATIENTS. CBC W/PLT COUNT & AUTO [id number] 04:38:00 Test Item Value Reference Range Comments WHITE BLOOD CELL COUNT (BEAKER) (test gjtm=328) 6.2 K/ L 3.5-10.5 RED BLOOD CELL COUNT (BEAKER) (test ukda=687) 3.57 M/ L 3.93-5.22 HEMOGLOBIN (BEAKER) (test fwtr=455) 9.8 GM/DL 11.2-15.7 HEMATOCRIT (BEAKER) (test cjyi=898) 31.4 % 34.1-44.9 MEAN CORPUSCULAR VOLUME (BEAKER) (test oqzt=903) 88.0 fL 79.4-94.8 MEAN CORPUSCULAR HEMOGLOBIN (BEAKER) (test 27.5 pg 25.6-32.2 ljuz=819) MEAN CORPUSCULAR HEMOGLOBIN CONC (BEAKER) (test 31.2 GM/DL 32.2-35.5 ejeh=306) RED CELL DISTRIBUTION WIDTH (BEAKER) (test 15.0 % 11.7-14.4 zadf=254) PLATELET COUNT (BEAKER) (test rwql=893) 284 K/CU MM 150-450 MEAN PLATELET VOLUME (BEAKER) (test klzd=890) 10.1 fL 9.4-12.3 NUCLEATED RED BLOOD CELLS (BEAKER) (test 0 /100 WBC 0-0 hgkx=936) NEUTROPHILS RELATIVE PERCENT (BEAKER) (test 69 % igvq=819) LYMPHOCYTES RELATIVE PERCENT (BEAKER) (test 15 % pupj=326) MONOCYTES RELATIVE PERCENT (BEAKER) (test 9 % dllm=387) EOSINOPHILS RELATIVE PERCENT (BEAKER) (test 6 % favr=608) BASOPHILS RELATIVE PERCENT (BEAKER) (test 1 % expp=367) NEUTROPHILS ABSOLUTE COUNT (BEAKER) (test 4.29 K/ L 1.56-6.13 bkmq=305) LYMPHOCYTES ABSOLUTE COUNT (BEAKER) (test 0.93 K/ L 1.18-3.74 hrzl=369) MONOCYTES ABSOLUTE COUNT (BEAKER) (test 0.57 K/ L 0.24-0.36 wjmf=285) EOSINOPHILS ABSOLUTE COUNT (BEAKER) (test 0.34 K/ L 0.04-0.36 cajs=048) BASOPHILS ABSOLUTE COUNT (BEAKER) (test 0.04 K/ L 0.01-0.08 aonq=435) IMMATURE GRANULOCYTES-RELATIVE PERCENT (BEAKER) 0 % 0-1 (test lfha=9807) POCT-GLUCOSE [id number] 21:24:00 Test Item Value Reference Range Comments POC-GLUCOSE METER (BEAKER) 307 mg/dL 70-110 Notified PITER FELIX/TESTED AT [facility] (test lfsv=4652) [address] [place], [place] [id number] POCT-GLUCOSE [id number] 17:52:00 Test Item Value Reference Range Comments POC-GLUCOSE METER (BEAKER) 224 mg/dL 70-110 TESTED AT [address] (test nmnb=2723) [place] [id number] POCT-GLUCOSE [id number] 12:46:00 Test Item Value Reference Range Comments POC-GLUCOSE METER (BEAKER) 250 mg/dL 70-110 TESTED AT [address] (test hsxh=3566) [place] [id number] POCT-GLUCOSE [id number] 08:44:00 Test Item Value Reference Range Comments POC-GLUCOSE METER (BEAKER) 319 mg/dL 70-110 Notified PITER FELIX/TESTED AT [facility] (test mhuy=2587) [address] [place] [address] [id number] 05:35:00 Test Item Value Reference Range Comments PHOSPHORUS (BEAKER) (test uyyn=828) 3.8 mg/dL 2.3-4.7 [id number] 05:35:00 Test Item Value Reference Range Comments MAGNESIUM (BEAKER) (test nars=918) 1.8 mg/dL 1.6-2.6 BASIC METABOLIC [id number] 05:35:00 Test Item Value Reference Range Comments SODIUM (BEAKER) (test 137 meq/L 136-145 xpbd=389) POTASSIUM (BEAKER) (test 4.0 meq/L 3.5-5.1 djlo=253) CHLORIDE (BEAKER) (test 103 meq/L 98-107 rzcb=046) CO2 (BEAKER) (test 27 meq/L 22-29 xejd=219) BLOOD UREA NITROGEN 9 mg/dL 7-21 (BEAKER) (test yhjt=820) CREATININE (BEAKER) (test 1.06 mg/dL 0.57-1.25 nvuv=372) GLUCOSE RANDOM (BEAKER) 272 mg/dL 70-105 (test fztj=560) CALCIUM (BEAKER) (test 8.9 mg/dL 8.4-10.2 wbhr=588) EGFR (BEAKER) (test 51 mL/min/1.73 sq m ESTIMATED GFR IS NOT vbud=6654) ACCURATE CREATININE CLEARANCE IN PREDICTING GLOMERULAR FILTRATION RATE. ESTIMATED GFR IS NOT APPLICABLE FOR DIALYSIS PATIENTS. CBC W/PLT COUNT & AUTO [id number] 04:52:00 Test Item Value Reference Range Comments WHITE BLOOD CELL COUNT (BEAKER) (test szqm=229) 5.8 K/ L 3.5-10.5 RED BLOOD CELL COUNT (BEAKER) (test mlll=193) 3.53 M/ L 3.93-5.22 HEMOGLOBIN (BEAKER) (test zeof=539) 9.6 GM/DL 11.2-15.7 HEMATOCRIT (BEAKER) (test osdi=311) 31.3 % 34.1-44.9 MEAN CORPUSCULAR VOLUME (BEAKER) (test qkuh=214) 88.7 fL 79.4-94.8 MEAN CORPUSCULAR HEMOGLOBIN (BEAKER) (test 27.2 pg 25.6-32.2 bnli=368) MEAN CORPUSCULAR HEMOGLOBIN CONC (BEAKER) (test 30.7 GM/DL 32.2-35.5 rpqr=105) RED CELL DISTRIBUTION WIDTH (BEAKER) (test 15.4 % 11.7-14.4 tlei=527) PLATELET COUNT (BEAKER) (test qqip=029) 281 K/CU MM 150-450 MEAN PLATELET VOLUME (BEAKER) (test xltj=890) 9.8 fL 9.4-12.3 NUCLEATED RED BLOOD CELLS (BEAKER) (test 0 /100 WBC 0-0 wegn=659) NEUTROPHILS RELATIVE PERCENT (BEAKER) (test 66 % riad=639) LYMPHOCYTES RELATIVE PERCENT (BEAKER) (test 16 % fwiy=449) MONOCYTES RELATIVE PERCENT (BEAKER) (test 11 % nohc=738) EOSINOPHILS RELATIVE PERCENT (BEAKER) (test 5 % wndi=396) BASOPHILS RELATIVE PERCENT (BEAKER) (test 1 % ogpz=855) NEUTROPHILS ABSOLUTE COUNT (BEAKER) (test 3.82 K/ L 1.56-6.13 bxif=645) LYMPHOCYTES ABSOLUTE COUNT (BEAKER) (test 0.95 K/ L 1.18-3.74 ftgl=389) MONOCYTES ABSOLUTE COUNT (BEAKER) (test 0.64 K/ L 0.24-0.36 tsdc=077) EOSINOPHILS ABSOLUTE COUNT (BEAKER) (test 0.31 K/ L 0.04-0.36 ebxp=122) BASOPHILS ABSOLUTE COUNT (BEAKER) (test 0.06 K/ L 0.01-0.08 zhuz=350) IMMATURE GRANULOCYTES-RELATIVE PERCENT (BEAKER) 0 % 0-1 (test iggx=2077) POCT-GLUCOSE [id number] 21:33:00 Test Item Value Reference Range Comments POC-GLUCOSE METER (BEAKER) 195 mg/dL 70-110 TESTED AT [address] (test ivml=3808) [facility] [address] POCT-GLUCOSE [id number] 20:09:00 Test Item Value Reference Range Comments POC-GLUCOSE METER (BEAKER) 268 mg/dL 70-110 TESTED AT [address] (test fujg=2520) [facility] [address] POCT-GLUCOSE [id number] 17:13:00 Test Item Value Reference Range Comments POC-GLUCOSE METER (BEAKER) 400 mg/dL 70-110 TESTED AT [address] (test hkca=1385) [facility] [address] POCT-GLUCOSE [id number] 10:55:00 Test Item Value Reference Range Comments POC-GLUCOSE METER (BEAKER) 216 mg/dL 70-110 TESTED AT [place] [id number] [facility] (test trom=6728) [facility] [address] POCT-GLUCOSE [id number] 07:07:00 Test Item Value Reference Range Comments POC-GLUCOSE METER (BEAKER) 240 mg/dL 70-110 TESTED AT [address] (test vgzz=1426) [place] [id number] POCT-GLUCOSE [id number] 06:13:00 Test Item Value Reference Range Comments POC-GLUCOSE METER (BEAKER) 249 mg/dL 70-110 TESTED AT [address] (test ayfj=7965) [place] [id number] 05:36:00 Test Item Value Reference Range Comments PHOSPHORUS (BEAKER) (test lpvm=616) 3.5 mg/dL 2.3-4.7 [id number] 05:36:00 Test Item Value Reference Range Comments MAGNESIUM (BEAKER) (test wjqc=757) 1.7 mg/dL 1.6-2.6 BASIC METABOLIC [id number] 05:36:00 Test Item Value Reference Range Comments SODIUM (BEAKER) (test 138 meq/L 136-145 dswf=892) POTASSIUM (BEAKER) (test 3.8 meq/L 3.5-5.1 yprc=910) CHLORIDE (BEAKER) (test 103 meq/L 98-107 zlip=393) CO2 (BEAKER) (test 25 meq/L 22-29 gubx=304) BLOOD UREA NITROGEN 8 mg/dL 7-21 (BEAKER) (test piuy=933) CREATININE (BEAKER) (test 0.98 mg/dL 0.57-1.25 ekil=610) GLUCOSE RANDOM (BEAKER) 218 mg/dL 70-105 (test opcv=081) CALCIUM (BEAKER) (test 8.9 mg/dL 8.4-10.2 gicg=100) EGFR (BEAKER) (test 56 mL/min/1.73 sq m ESTIMATED GFR IS NOT kaoe=1813) ACCURATE CREATININE CLEARANCE IN PREDICTING GLOMERULAR FILTRATION RATE. ESTIMATED GFR IS NOT APPLICABLE FOR DIALYSIS PATIENTS. CBC W/PLT COUNT & AUTO [id number] 05:19:00 Test Item Value Reference Range Comments WHITE BLOOD CELL COUNT (BEAKER) (test cqso=420) 6.7 K/ L 3.5-10.5 RED BLOOD CELL COUNT (BEAKER) (test jmzq=237) 3.66 M/ L 3.93-5.22 HEMOGLOBIN (BEAKER) (test mwwq=778) 10.0 GM/DL 11.2-15.7 HEMATOCRIT (BEAKER) (test xtvy=190) 32.3 % 34.1-44.9 MEAN CORPUSCULAR VOLUME (BEAKER) (test usid=567) 88.3 fL 79.4-94.8 MEAN CORPUSCULAR HEMOGLOBIN (BEAKER) (test 27.3 pg 25.6-32.2 johe=556) MEAN CORPUSCULAR HEMOGLOBIN CONC (BEAKER) (test 31.0 GM/DL 32.2-35.5 gklj=491) RED CELL DISTRIBUTION WIDTH (BEAKER) (test 15.9 % 11.7-14.4 ocdc=905) PLATELET COUNT (BEAKER) (test onjr=609) 329 K/CU MM 150-450 MEAN PLATELET VOLUME (BEAKER) (test ddtc=364) 10.1 fL 9.4-12.3 NUCLEATED RED BLOOD CELLS (BEAKER) (test 0 /100 WBC 0-0 rllp=206) NEUTROPHILS RELATIVE PERCENT (BEAKER) (test 68 % kpzz=947) LYMPHOCYTES RELATIVE PERCENT (BEAKER) (test 17 % iswa=481) MONOCYTES RELATIVE PERCENT (BEAKER) (test 10 % zvlp=163) EOSINOPHILS RELATIVE PERCENT (BEAKER) (test 4 % guyd=912) BASOPHILS RELATIVE PERCENT (BEAKER) (test 1 % krpx=065) NEUTROPHILS ABSOLUTE COUNT (BEAKER) (test 4.55 K/ L 1.56-6.13 mxjj=717) LYMPHOCYTES ABSOLUTE COUNT (BEAKER) (test 1.12 K/ L 1.18-3.74 omic=828) MONOCYTES ABSOLUTE COUNT (BEAKER) (test 0.67 K/ L 0.24-0.36 iriz=912) EOSINOPHILS ABSOLUTE COUNT (BEAKER) (test 0.29 K/ L 0.04-0.36 nwso=424) BASOPHILS ABSOLUTE COUNT (BEAKER) (test 0.06 K/ L 0.01-0.08 cwum=719) IMMATURE GRANULOCYTES-RELATIVE PERCENT (BEAKER) 0 % 0-1 (test yqit=5599) COMPREHENSIVE METABOLIC [id number] 23:04:00 Test Item Value Reference Range Comments TOTAL PROTEIN (BEAKER) 5.7 gm/dL 6.0-8.3 (test fivi=290) ALBUMIN (BEAKER) (test 3.4 g/dL 3.5-5.0 wkrp=5036) ALKALINE PHOSPHATASE 76 U/L 40-150 (BEAKER) (test pger=728) BILIRUBIN TOTAL (BEAKER) 0.7 mg/dL 0.2-1.2 (test zpvq=017) SODIUM (BEAKER) (test 136 meq/L 136-145 mcmk=981) POTASSIUM (BEAKER) (test 3.9 meq/L 3.5-5.1 qpdr=152) CHLORIDE (BEAKER) (test 103 meq/L 98-107 hbsl=757) CO2 (BEAKER) (test 25 meq/L 22-29 wspg=395) BLOOD UREA NITROGEN 9 mg/dL 7-21 (BEAKER) (test jcio=201) CREATININE (BEAKER) (test 0.91 mg/dL 0.57-1.25 gwxr=625) GLUCOSE RANDOM (BEAKER) 147 mg/dL 70-105 (test ohto=324) CALCIUM (BEAKER) (test 8.8 mg/dL 8.4-10.2 cbtv=945) AST (SGOT) (BEAKER) (test 24 U/L 5-34 wjtb=859) ALT (SGPT) (BEAKER) (test 23 U/L 6-55 cfov=868) EGFR (BEAKER) (test 61 mL/min/1.73 sq m ESTIMATED GFR IS NOT lldu=1146) ACCURATE CREATININE CLEARANCE IN PREDICTING GLOMERULAR FILTRATION RATE. ESTIMATED GFR IS NOT APPLICABLE FOR DIALYSIS PATIENTS. PROTHROMBIN [id number] 22:57:00 Test Item Value Reference Range Comments PROTIME (BEAKER) (test ohmy=272) 14.1 seconds 11.7-14.7 INR (BEAKER) (test lsav=155) 1.1 <=5.9 RECOMMENDED COUMADIN/WARFARIN INR THERAPY RANGESSTANDARD DOSE: 2.0 - 3.0 Includes: PROPHYLAXIS forvenous thrombosis, systemic embolization; TREATMENT for venous thrombosis and/or pulmonary embolus.HIGH RISK: Target INR is 2.5-3.5 for patients with mechanical heart valves.CBC W/PLT COUNT & AUTO [id number] 22:51:00 Test Item Value Reference Range Comments WHITE BLOOD CELL COUNT (BEAKER) (test ifym=945) 6.0 K/ L 3.5-10.5 RED BLOOD CELL COUNT (BEAKER) (test acpz=099) 3.42 M/ L 3.93-5.22 HEMOGLOBIN (BEAKER) (test ucld=707) 9.4 GM/DL 11.2-15.7 HEMATOCRIT (BEAKER) (test mgme=748) 30.0 % 34.1-44.9 MEAN CORPUSCULAR VOLUME (BEAKER) (test eggi=677) 87.7 fL 79.4-94.8 MEAN CORPUSCULAR HEMOGLOBIN (BEAKER) (test 27.5 pg 25.6-32.2 zndy=000) MEAN CORPUSCULAR HEMOGLOBIN CONC (BEAKER) (test 31.3 GM/DL 32.2-35.5 xdcw=751) RED CELL DISTRIBUTION WIDTH (BEAKER) (test 15.9 % 11.7-14.4 dqao=186) PLATELET COUNT (BEAKER) (test rjap=907) 297 K/CU MM 150-450 MEAN PLATELET VOLUME (BEAKER) (test frid=990) 9.5 fL 9.4-12.3 NUCLEATED RED BLOOD CELLS (BEAKER) (test 0 /100 WBC 0-0 jfsk=746) NEUTROPHILS RELATIVE PERCENT (BEAKER) (test 65 % zvfp=279) LYMPHOCYTES RELATIVE PERCENT (BEAKER) (test 19 % tvtr=221) MONOCYTES RELATIVE PERCENT (BEAKER) (test 12 % cfgq=533) EOSINOPHILS RELATIVE PERCENT (BEAKER) (test 4 % mity=974) BASOPHILS RELATIVE PERCENT (BEAKER) (test 1 % pqyd=879) NEUTROPHILS ABSOLUTE COUNT (BEAKER) (test 3.90 K/ L 1.56-6.13 khfo=788) LYMPHOCYTES ABSOLUTE COUNT (BEAKER) (test 1.12 K/ L 1.18-3.74 inaz=406) MONOCYTES ABSOLUTE COUNT (BEAKER) (test 0.71 K/ L 0.24-0.36 eara=580) EOSINOPHILS ABSOLUTE COUNT (BEAKER) (test 0.25 K/ L 0.04-0.36 dcuv=966) BASOPHILS ABSOLUTE COUNT (BEAKER) (test 0.04 K/ L 0.01-0.08 gcex=510) IMMATURE GRANULOCYTES-RELATIVE PERCENT (BEAKER) 0 % 0-1 (test htbd=6967)
--- OUTSIDE RECORDS SUMMARY | 2018-11-12 12:57 | XMS REPORT ---
:1945 Author Organization [employer] Care Team Providers Name Role Phone Pricila Watson Provider Role Unavailable Allergies No Known Allergies Problems Problem Type Condition Code Onset Dates Condition Status Problem Circulation problem I99.9 Active Problem Tobacco use Z72.0 Active Problem Seasonal allergic reaction J30.2 Active Problem Anxiety F41.9 Active Problem Osteoporosis M81.0 Active Problem COPD (chronic obstructive pulmonary J44.9 Active disease) Problem Wheezing R06.2 Active Problem Ventral hernia without obstruction K43.9 Active or gangrene Problem Stroke I63.9 Active Problem Depression F32.9 Active Assessment COPD (chronic obstructive pulmonary J44.9 Active disease) Problem Decreased diastolic blood pressure R09.89 Active Problem Right-sided back pain, unspecified M54.9 Active back location, unspecified chronicity Problem Abdominal pain, unspecified R10.9 Active abdominal location Problem 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 Problem Encounter for tobacco use cessation Z71.6 Active counseling Medications Medication Code Code Instructions Start End Status Dosage System Date Date Ventolin HFA [facility] [place] 2[place] 43897939273 108 (90 Base) May Active 2 puffs as MCG/ACT 2018 needed for Inhalation SOB/wheezi every 4-6 hrs ng ProAir HFA [facility] [place] 2] 74435483575 108 (90 Base) May Inactive 2 puffs as MCG/ACT 2018 needed for Inhalation wheezing every 4-6 hrs Vitamin B [facility] [place]NOTE 2] [id number] - Orally Active as Complex directed Citalopram ND 43723150498 20 MG Orally Active 1 tablet Hydrobromide Once a day Vitamin D ND 26516067750 1000 UNIT Active 1 tablet Orally Once a day Vitamin C ND 13317932303 500 MG Orally Active as directed Chantix ND 80467977962 0.5 MG X & May Active as Starting Month MG X 42 Orally 2018 11, directed Rashawn as directed 2019 Aspirin Adult ND 30751836783 81 MG Orally Active 1 tablet Low Strength Once a day Results No Known Results Summary Purpose eClinicalWorks Submission
--- OUTSIDE RECORDS SUMMARY | 2018-11-12 12:57 | XMS REPORT ---
:1945 Author Organization [employer] Care Team Providers Name Role Phone Pricila Watson Provider Role Unavailable Allergies, Adverse Reactions, Alerts Substance Reaction Event Type N.K.D.A. Info Not Available Non Drug Allergy Problems Problem Type Condition Code Onset Dates Condition Status Problem Ventral hernia without obstruction K43.9 Active or gangrene Problem Abdominal pain, unspecified R10.9 Active abdominal location Problem Right-sided back pain, unspecified M54.9 Active back location, unspecified chronicity Problem Primary osteoarthritis involving M15.0 Active multiple joints Problem Circulation problem I99.9 Active Problem Hammer toe of right foot M20.41 Active Problem Encounter for tobacco use cessation Z71.6 Active counseling Problem Pneumonia due to infectious J18.9 Active organism, unspecified laterality, unspecified part of lung Problem Tremor R25.1 Active Problem Insomnia, unspecified type G47.00 Active Problem Uncontrolled type 2 diabetes E11.65 Active mellitus with hyperglycemia Problem Peripheral neuropathy G62.9 Active Problem Decreased diastolic blood pressure R09.89 Active Problem Wheezing R06.2 Active Problem Seasonal allergic reaction J30.2 Active Problem 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 Problem Osteoporosis M81.0 Active Problem Anxiety F41.9 Active Assessment Follow-up exam Z09 Active Problem Depression F32.9 Active Problem COPD (chronic obstructive pulmonary J44.9 Active disease) Assessment Pneumonia due to infectious J18.9 Active organism, unspecified laterality, unspecified part of lung Problem Stroke I63.9 Active Problem Tobacco use Z72.0 Active Medications Medication Code Code Instructions Start End Status Dosage System Date Date Vitamin C ND 62017068802 500 MG Orally Active as directed Vitamin D ND 49365880353 1000 UNIT Active 1 tablet Orally Once a day Belsomra ND 49685232263 10 MG Orally October 19, Active 1 tablet at Once a day 2019 bedtime as needed Citalopram ND 39730048354 20 MG Orally Active 1 tablet Hydrobromide Once a day Trazodone HCl ND 42222838470 50 MG Orally September 05, Active 1/2 to 1 Once a day 2018 tablet at bedtime as needed for sleep Gabapentin ND 30522891060 100 mg Orally September 05, Active 1 capsule Once a day for 2019 numbness Ventolin HFA [facility] [id number] 108 (90 Base) May Active 2 puffs as MCG/ACT 2018 needed for Inhalation SOB/wheezin every 4-6 hrs g Vitamin B [facility] 80975573070 - Orally Active as directed Complex Aspirin Adult [facility] 48359821097 81 MG Orally Active 1 tablet Low Strength Once a day Metformin HCl ND 46110520774 500 MG Orally September 05, Active 1 tablet Once a day 2018 with a meal BusPIRone HCl [facility] 12804029799 7.5 MG Orally September 05, Active 1 tablet as Twice a day 2018 needed for anxiety Results No Known Results Summary Purpose eClinicalWorks Submission
--- OUTSIDE RECORDS SUMMARY | 2018-11-12 12:57 | XMS REPORT ---
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 Problem COPD (chronic obstructive pulmonary J44.9 Active disease) Problem Wheezing R06.2 Active Problem Ventral hernia without obstruction K43.9 Active or gangrene Problem Stroke I63.9 Active Problem Depression F32.9 Active Assessment Tobacco use Z72.0 Active Assessment Decreased diastolic blood pressure R09.89 Active Assessment Wheezing R06.2 Active Assessment Encounter for tobacco use cessation Z71.6 Active counseling Problem Decreased diastolic blood pressure R09.89 Active Problem Right-sided back pain, unspecified M54.9 Active back location, unspecified chronicity Problem Abdominal pain, unspecified R10.9 Active abdominal location Assessment Right-sided back pain, unspecified M54.9 Active back location, unspecified chronicity Problem 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 Problem Encounter for tobacco use cessation Z71.6 Active counseling Medications Medication Code Code Instructions Start End Date Status Dosage System Date Vitamin B [facility] 79817054997 - Orally Active as directed Complex Citalopram [facility] 24378012226 20 MG Orally Active 1 tablet Hydrobromide Once a day ProAir HFA [facility] 78548686172 108 (90 Base) May Active 2 puffs as MCG/ACT 2018 needed for Inhalation wheezing every 4-6 hrs Vitamin D ND 22040320213 1000 UNIT Active 1 tablet Orally Once a day Vitamin C [facility] 97446315662 500 MG Orally Active as directed Aspirin Adult ND 75846009348 81 MG Orally Active 1 tablet Low Strength Once a day Chantix [facility] 09717399906 0.5 MG X & May Active as directed Starting Month MG X 42 Orally 2018 Rashawn as directed Results No Known Results Summary Purpose eClinicalWorks Submission
--- OUTSIDE RECORDS SUMMARY | 2018-11-12 12:57 | XMS REPORT ---
:1945 Author Organization eClinical[employer] Care Team Providers Name Role Phone Rell Osorio Provider Role Unavailable Allergies, Adverse Reactions, Alerts Substance Reaction Event Type N.K.D.A. Info Not Available Non Drug Allergy Problems Problem Type Condition Code Onset Dates Condition Status Assessment Primary osteoarthritis involving M15.0 Active multiple joints Problem Anxiety F41.9 Active Assessment Insomnia, unspecified type G47.00 Active Problem COPD (chronic obstructive pulmonary J44.9 Active disease) Assessment History of gout Z87.39 Active Problem Tobacco use Z72.0 Active Problem Right-sided back pain, unspecified M54.9 Active back location, unspecified chronicity Problem Ventral hernia without obstruction K43.9 Active or gangrene Problem Hammer toe of right foot M20.41 Active Problem Uncontrolled type 2 diabetes E11.65 Active mellitus with hyperglycemia Problem Encounter for tobacco use cessation Z71.6 Active counseling Problem Primary osteoarthritis involving M15.0 Active multiple joints Assessment Hammer toe of right foot M20.41 Active Problem Insomnia, unspecified type G47.00 Active Problem Abdominal pain, unspecified R10.9 Active abdominal location Problem Peripheral neuropathy G62.9 Active Problem Tremor R25.1 Active Problem 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 Problem Decreased diastolic blood pressure R09.89 Active Problem Circulation problem I99.9 Active Problem Seasonal allergic reaction J30.2 Active Problem Stroke I63.9 Active Problem Osteoporosis M81.0 Active Problem Wheezing R06.2 Active Problem Depression F32.9 Active Medications Medication Code Code Instructions Start End Status Dosage System Date Date Vitamin D [facility] 89640642092 1000 UNIT Active 1 tablet Orally Once a day Vitamin B [facility] 10233031347 - Orally Active as directed Complex Gabapentin ND 48336944951 100 mg Orally September 05, Active 1 capsule Once a day for 2019 numbness Metformin HCl ND 34595357268 500 MG Orally September 05, Active 1 tablet Once a day 2018 with a meal Citalopram ND 19051275645 20 MG Orally Active 1 tablet Hydrobromide Once a day Vitamin C [facility] 61966825641 500 MG Orally Active as directed Trazodone HCl [facility] 23424362585 50 MG Orally September 05, Active 1/2 to 1 Once a day 2018 tablet at bedtime as needed for sleep Belsomra [facility] 49401434618 10 MG Orally October 19, Active 1 tablet at Once a day 2018 bedtime as needed Ventolin HFA [facility] 66451414894 108 (90 Base) May Active 2 puffs as MCG/ACT 2018 needed for Inhalation SOB/wheezin every 4-6 hrs g BusPIRone HCl [facility] 10782890826 7.5 MG Orally September 05, Active 1 tablet as Twice a day 2018 needed for anxiety Aspirin Adult [facility] 46960813934 81 MG Orally Active 1 tablet Low Strength Once a day Results No Known Results Summary Purpose eClinicalWorks Submission
[2018-11-12] MEDS ORDERED: NA CHLORIDE 0.9% 1,000 ML ONE (14:17)
[2018-11-12 14:28] LABS: Basophils % 0.9 % (0-1.3); Hematocrit 34.5 % (36.0-45.0); Lymphocytes % 7.5 % (15.3-44.8); MPV 7.8 fL (7.6-11.3); RBC Red Blood Cell Count 3.97 M/uL (3.86-4.86)
[2018-11-12 14:29] LABS: Protime INR 1.04
[2018-11-12 14:44] LABS: Potassium 4.3 mmol/L (3.5-5.1)
--- NOTE | 2018-11-12 15:05 | EDPHYS ---
Physician Documentation [facility] Name: Sia Salazar Age: 72 yrs Sex: Female : 1945 Arrival Date: 11/12/2018 Time: 12:53 Bed 2 Private MD: Pricila Watson ED Physician Aramis Becker HPI: 11/12 15:02 This 72 yrs old Female presents to ER via Ambulatory with complaints of gs Bloody Stools. 15:02 The patient presents to the emergency department with rectal bleeding, melena. Onset: gs The symptoms/episode began/occurred 1 week(s) ago. Abdominal pain: none is appreciated. Modifying factors: The symptoms are alleviated by nothing, the symptoms are aggravated by nothing. Associated signs and symptoms: Pertinent negatives: chest pain. Severity of symptoms: At their worst the symptoms were moderate in the emergency department the symptoms are unchanged. The patient has experienced similar episodes in the past, multiple times. The patient has not recently seen a physician. Historical: - Allergies: 13:11 Actos; ss 13:11 Bactrim; ss 13:11 Clindamycin; ss 13:11 Codeine; ss 13:11 Crestor; ss 13:11 Darvocet-N 100; ss 13:11 Erythromycin; ss 13:11 Glimepiride; ss 13:11 Glipizide; ss 13:11 Iodinated Contrast Media - IV Dye; ss 13:11 Januvia; ss 13:11 Lipitor; ss 13:11 metformin; ss 13:11 Morphine; ss 13:11 PENICILLINS; ss 13:11 Sulfa (Sulfonamide Antibiotics); ss 13:11 Wellbutrin; ss - PMHx: 13:11 angiodysplasia; SBO; peripheral artery disease; ischemic bowel disease; ibs; GERD; ss Diabetes - IDDM; Depression; COPD; chronic pulmonary embolism; chronic mesenteric ischemia; bronchospastic airway disease; celiac artery stenosis; Cerebrovascular disease; bowel AVMs; - PSHx: 13:11 abdominal surgeries; Tonsillectomy; Cholecystectomy; ss - Immunization history:: Adult Immunizations up to date. - Social history:: Smoking status: Patient uses tobacco products, denies chronic smoking, but will smoke occasionally. - Ebola Screening: : Patient denies exposure to infectious person Patient denies travel to an Ebola-affected area in the 21 days before illness onset. ROS: 15:02 All other systems are negative. gs Exam: 15:02 Head/Face: Normocephalic, atraumatic. Eyes: Pupils equal round and reactive to light, gs extra-ocular motions intact. Lids and lashes normal. Conjunctiva and sclera are non-icteric and not injected. Cornea within normal limits. Periorbital areas with no swelling, redness, or edema. ENT: Nares patent. No nasal discharge, no septal abnormalities noted. Tympanic membranes are normal and external auditory canals are clear. Oropharynx with no redness, swelling, or masses, exudates, or evidence of obstruction, uvula midline. Mucous membranes moist. Neck: Trachea midline, no thyromegaly or masses palpated, and no cervical lymphadenopathy. Supple, full range of motion without nuchal rigidity, or vertebral point tenderness. No Meningismus. Chest/axilla: Normal chest wall appearance and motion. Nontender with no deformity. No lesions are appreciated. Cardiovascular: Regular rate and rhythm with a normal S1 and S2. No gallops, murmurs, or rubs. Normal PMI, no JVD. No pulse deficits. Respiratory: Lungs have equal breath sounds bilaterally, clear to auscultation and percussion. No rales, rhonchi or wheezes noted. No increased work of breathing, no retractions or nasal flaring. Abdomen/GI: Soft, non-tender, with normal bowel sounds. No distension or tympany. No guarding or rebound. No evidence of tenderness throughout. Back: No spinal tenderness. No costovertebral tenderness. Full range of motion. Skin: Warm, dry with normal turgor. Normal color with no rashes, no lesions, and no evidence of cellulitis. MS/ Extremity: Pulses equal, no cyanosis. Neurovascular intact. Full, normal range of motion. Neuro: Awake and alert, GCS 15, oriented to person, place, time, and situation. Cranial nerves II-XII grossly intact. Motor strength 5/5 in all extremities. Sensory grossly intact. Cerebellar exam normal. Normal gait. 15:02 Constitutional: The patient appears alert, awake. Vital Signs: 13:09 BP 119 / 40; Pulse 82; Resp 17; Temp 99.1(TE); Pulse Ox 94% on R/A; Weight 53.98 kg; ss Height 5 ft. 2 in. (157.48 cm); Pain 3/10; 14:35 BP 127 / 54; Pulse 73; Resp 16; Pulse Ox 95% on R/A; rv 15:24 BP 117 / 54; Pulse 72; Resp 15; Temp 98.5; Pulse Ox 96% on R/A; rv 13:09 Body Mass Index 21.77 (53.98 kg, 157.48 cm) MDM: 14:22 Patient medically screened. 15:02 Data reviewed: vital signs, nurses notes, lab test result(s). Counseling: I had a detailed discussion with the patient and/or guardian regarding: the historical points, exam findings, and any diagnostic results supporting the discharge/admit diagnosis, the need for outpatient follow up. Response to treatment: There is no appreciated change of the patient's symptoms at this time. 11/12 13:58 Order name: CBC with Diff 11/12 13:58 Order name: Basic Metabolic Panel; Complete Time: 15:01 11/12 13:58 Order name: Protime (+inr); Complete Time: 15:01 11/12 13:59 Order name: CBC with Automated Diff; Complete Time: 15:01 EDMS Administered Medications: 14:23 Drug: NS 0.9% 1000 ml Route: IV; Rate: 125 ml/hr; Site: left antecubital; rv 15:26 Follow up: IV Status: Order to discontinue infusion rv Disposition: 11/12/18 15:04 Discharged to Home. Impression: Gastrointestinal hemorrhage, unspecified. - Condition is Stable. - Discharge Instructions: Gastrointestinal Bleeding. - Medication Reconciliation Form, Thank You Letter, Antibiotic Education, Prescription Opioid Use form. - Follow up: Klever Yun MD; When: 2 - 3 days; Reason: Re-evaluation by your physician. Signatures: Dispatcher [employer] EDMS Marion Triana RN RN Aramis Becker MD MD Neto Wood RN RN rv Corrections: (The following items were deleted from the chart) 15:25 15:04 11/12/2018 15:04 Discharged to Home. Impression: Gastrointestinal hemorrhage, rv unspecified. Condition is Stable. Forms are Medication Reconciliation Form, Thank You Letter, Antibiotic Education, Prescription Opioid Use. Follow up: Klever Yun; When: 2 - 3 days; Reason: Re-evaluation by your physician. gs
--- NOTE | 2018-11-12 15:05 | ER ---
Nurse's Notes [facility] Name: Sia Salazar Age: 72 yrs Sex: Female : 1945 Arrival Date: 11/12/2018 Time: 12:53 Bed 2 Private MD: Pricila Watson Diagnosis: Gastrointestinal hemorrhage, unspecified Presentation: 11/12 13:11 Presenting complaint: Patient states: black stools x 3 days. Patient reports she has ss AVMs in her bowel that bleed sporadically and has had to have frequent blood transfusions. C/o fatigue x "a few days.". Transition of care: patient was not received from another setting of care. Onset of symptoms was November 06, 2018. Risk Assessment: Do you want to hurt yourself or someone else? Patient reports no desire to harm self or others. Initial Sepsis Screen: Does the patient meet any 2 criteria? No. Patient's initial sepsis screen is negative. Does the patient have a suspected source of infection? No. Patient's initial sepsis screen is negative. Care prior to arrival: None. 13:11 Method Of Arrival: Ambulatory ss 13:11 Acuity: GREGG 3 ss Historical: - Allergies: 13:11 Actos; ss 13:11 Bactrim; ss 13:11 Clindamycin; ss 13:11 Codeine; ss 13:11 Crestor; ss 13:11 Darvocet-N 100; ss 13:11 Erythromycin; ss 13:11 Glimepiride; ss 13:11 Glipizide; ss 13:11 Iodinated Contrast Media - IV Dye; ss 13:11 Januvia; ss 13:11 Lipitor; ss 13:11 metformin; ss 13:11 Morphine; ss 13:11 PENICILLINS; ss 13:11 Sulfa (Sulfonamide Antibiotics); ss 13:11 Wellbutrin; ss - PMHx: 13:11 angiodysplasia; SBO; peripheral artery disease; ischemic bowel disease; ibs; GERD; ss Diabetes - IDDM; Depression; COPD; chronic pulmonary embolism; chronic mesenteric ischemia; bronchospastic airway disease; celiac artery stenosis; Cerebrovascular disease; bowel AVMs; - PSHx: 13:11 abdominal surgeries; Tonsillectomy; Cholecystectomy; ss - Immunization history:: Adult Immunizations up to date. - Social history:: Smoking status: Patient uses tobacco products, denies chronic smoking, but will smoke occasionally. - Ebola Screening: : Patient denies exposure to infectious person Patient denies travel to an Ebola-affected area in the 21 days before illness onset. Screenin:24 Abuse screen: Denies threats or abuse. Denies injuries from another. Nutritional rv screening: No deficits noted. Tuberculosis screening: No symptoms or risk factors identified. Fall Risk None identified. Assessment: 14:23 General: Appears in no apparent distress. comfortable, Behavior is calm, cooperative. rv Pain: Denies pain. Neuro: Level of Consciousness is awake, alert, obeys commands, Oriented to person, place, time, situation. Cardiovascular: Patient's skin is warm and dry. Respiratory: Airway is patent. GI: Reports bloody stool. : No signs and/or symptoms were reported regarding the genitourinary system. EENT: No signs and/or symptoms were reported regarding the EENT system. Derm: Skin is intact. Musculoskeletal: No signs and/or symptoms reported regarding the musculoskeletal system. Vital Signs: 13:09 BP 119 / 40; Pulse 82; Resp 17; Temp 99.1(TE); Pulse Ox 94% on R/A; Weight 53.98 kg; ss Height 5 ft. 2 in. (157.48 cm); Pain 3/10; 14:35 BP 127 / 54; Pulse 73; Resp 16; Pulse Ox 95% on R/A; rv 15:24 BP 117 / 54; Pulse 72; Resp 15; Temp 98.5; Pulse Ox 96% on R/A; rv 13:09 Body Mass Index 21.77 (53.98 kg, 157.48 cm) ED Course: 12:53 Patient arrived in ED. mr 12:54 Pricila Watson MD is Private Physician. mr 13:09 Arm band placed on right wrist. ss 13:12 Triage completed. ss 13:53 Arely Figueroa, PITER is Primary Nurse. ph 13:56 Aramis Becker MD is Attending Physician. gs 14:05 Inserted saline lock: 20 gauge in left antecubital area, using aseptic technique. Blood rv collected. 14:15 Gricel Rueda RN is Primary Nurse. hb 14:24 Patient has correct armband on for positive identification. Placed in gown. Bed in low rv position. Call light in reach. Side rails up X2. Adult w/ patient. Pulse ox on. NIBP on. 15:04 Klever Yun MD is Referral Physician. gs 15:25 No provider procedures requiring assistance completed. IV discontinued, intact, rv bleeding controlled, No redness/swelling at site. Pressure dressing applied. Administered Medications: 14:23 Drug: NS 0.9% 1000 ml Route: IV; Rate: 125 ml/hr; Site: left antecubital; rv 15:26 Follow up: IV Status: Order to discontinue infusion rv Outcome: 15:04 Discharge ordered by . gs 15:25 Discharged to home ambulatory, with family. rv 15:25 Condition: good 15:25 Discharge instructions given to patient, family, Instructed on discharge instructions, follow up and referral plans. Demonstrated understanding of instructions, follow-up care. 15:25 Patient left the ED. rv Signatures: Reyna Leiva mr TrianaMarion, Arely Dougherty RN, RN RN ph Baxter, Heather, RN RN hb Starr, Gregory, MD MD gs Vicente, Ronaldo, RN RN rv
[2018-11-12 16:00] VITALS: BP 117/54; TEMP 98.5; O2SAT 96
== END 2018-11-12 15:25 | disposition home or self-care (01) ==
LOC: ER 12:51
DX: K92.2 Gastrointestinal hemorrhage, unspecified (principal); Z88.3 Allergy status to other anti-infective agents; Z88.0 Allergy status to penicillin; Z88.1 Allergy status to other antibiotic agents; Z91.09 Other allergy status, other than to drugs and biological substances; Z88.6 Allergy status to analgesic agent; Z88.2 Allergy status to sulfonamides; Z88.8 Allergy status to other drugs, medicaments and biological substances
CPT/HCPCS: 85025; 80048; 36415; 85610; 96360; 99284; J7030

== ENCOUNTER 2021-04-09 10:07 | Emergency (ER) | payer OTHER ==
--- OUTSIDE RECORDS SUMMARY | 2021-04-09 10:14 | XMS REPORT | Continuity of Care Document ---
:1945 Author Organization [facility] t Address [address] [place] [address] Care Team Providers Name Role Phone ANEKWAME Primary Care Physician Unavailable Aravind FELIX Attending Clinician JIMENEZ Attending Clinician Unavailable SD Attending Clinician Unavailable Sd GREGORY Attending Clinician Mliton Daniels MD Attending Clinician Doctor Unassigned, Name Attending Clinician Unavailable Provider, Urgent Care Attending Clinician Unavailable HIPOLITO ORR Attending Clinician Unavailable MITZI UGALDE Attending Clinician Unavailable DOROTHY MAGALLANES Attending Clinician Unavailable TANVI Attending Clinician Unavailable HIPOLITO ORR Admitting Clinician Unavailable LEVI LEGER Admitting Clinician Unavailable DOROTHY MAGALLANES Admitting Clinician Unavailable TANVI Admitting Clinician Unavailable Payers Payer Name Policy Type Policy Number Effective Date Expiration Date S ivy SNSplusCARLOS ARANGO PLUS [id number] 2020 2021 CLASSIC/VALUE 00:00:00 00:00:00 FOR[facility]LY [facility] [id number] 2021 (MEDICARE 00:00:00 REPLACEMENT HMO) Problems Condition Condition Condition Status Onset Resolution Last Treating Co mments Source Name Details Category Date Date Treatment Clinician Date Calcium Calcium Disease Active Univers oxalate oxalate 08 ity of crystals crystals 00:00: [place] in urine in urine 00 Medica l Branch Abdominal Abdominal Disease Active Uni vers wall wall 3-14 ity of hernia hernia 00:00: [place] [facility] Anxiety Anxiety Disease Active Univers disorder, disorder, 1-14 ity of unspecifie [place]specifie [place] d type 00 [facility] PAD PAD Disease Active Univers (periphera (periphera 7-21 it y of l artery l artery 00:00: [place] disease) disease) 00 Medica l Branch Stress-ind Stress-ind Disease Active U nivers uced uced 7-21 ity of cardiomyop cardiomyop [place] at[place]hy [facility] Venous Venous Disease Active Univers insufficie insufficie 7-21 it y of ncy ncy 00:00: [place] [facility] Chronic Chronic Disease Active 2018-03 Univers systolic 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 00:00: [place] failure failure 00 Medical Branch Chronic Chronic Disease Active 2018-03 Univers obstructiv obstructiv 2-12 it y of e e 00:00: [place] pulmonary pulmonary 00 Medi jorge l disease, disease, Branch unspecifie unspecifie d COPD d COPD type type Arterioven Arterioven Disease Active U nivers ous ous 917 ity of malformati malformati [place] (AVM) on (AVM) 00 Medica l Branch Coronary Coronary Disease Active Unive rs artery artery 917 ity of disease disease 00:00: [place] involving involving 00 Medi jorge l [place] Branch coronary coronary artery artery Diabetes Diabetes Disease Active Overview: Un soni mellitus mellitus 917 Formattin ity of 00:00: g of this 00 note Medical might be Branch different from the original. Overview: Type II Essential Essential Disease Active Uni vers hypertensi hypertensi 9-17 it y of on on 00:00: [place] [facility] Microcytic Microcytic Disease Active U nivers anemia anemia 9-17 ity of 00:00: [place] 00 Medical Branch Severe Severe Disease Active Univers sepsis sepsis 8-30 ity of 00:00: [place] [facility] Anemia due Anemia due Disease Active U nivers to acute to acute 8- ity of blood loss blood loss 00:[place] Upper GI Upper GI Disease Active Unive rs bleed bleed 10-23 ity of 00:00: [place] 00 Medical Branch DSU- Diagnosis Active 2017-02-10 Mem oria HEMATOCHEZ 10-01 16:16:00 l IA R19.5, DSU- 00:00: [place] FATIGUE HEMATOCHEZ 00 R53.83, [place] R19.5, FATIGUE R53.83, Active 10/01/2016 [facility] Obesity Obesity Disease Active Univers (BMI (BMI 09-02 ity of 30-39.9) 30-39.9) 00:00: [place] 00 Medical Branch SBO (small SBO (small Disease Active U nivers bowel bowel 09-01 ity of obstructio obstructio [place]) n) 00 Medical [place] F/U Diagnosis Active 2016-10-01 Mem oria 07-02 10:31:00 l F/U 00:00: [place] 00 Active 07/02/2016 [facility] CONSULT Diagnosis Active 2016-07-02 Me moria 2-08 11:37:00 l CONSULT 00:00: [place] 00 Active 05/06/2016 [facility] Depression Depression Disease Active U nivers ity of [facility] Anemia Problem Resolve 2016-10-04 Jim maya (disorder) d 00:05:00 l Anemia [place] (disorder) Resolved Problem 10/04/2016 [facility] Anxiety Problem Resolve 2016-10-04 Mem oria (finding) d 00:05:00 l Anxiety [place] (finding) Resolved Problem 10/04/2016 [facility] Congenital Problem Resolve 2016-10-04 Memoria arterioven d 00:05:00 l ous Nader malformati Congenital on arterioven (disorder) ous malformati on (disorder) Resolved Problem 10/04/2016 [facility] Gallbladde Problem Resolve 2016-10-04 Memoria r calculus d 00:05:00 l (disorder) [place] adams Galldennise r calculus (disorder) Resolved Problem 10/04/2016 [facility] Gastrointe Problem Resolve 2016-10-04 Memoria stinal d 00:05:00 l hemorrhage Gilbert n (disorder) Gastrointe stinal hemorrhage (disorder) Resolved Problem 10/04/2016 [facility] Gout Problem Resolve 2016-10-04 Jim maya (disorder) d 00:05:00 l Gout Nader (disorder) Resolved Problem 10/04/2016 [facility] History of Problem Resolve 2016-10-04 Memoria - TIA d 00:05:00 l (context-d History Her [place] ependent of - TIA category) (context-d ependent category) Resolved Problem 10/04/2016 [facility] Asthma Problem Resolve 2016-10-04 Jim maya (disorder) d 00:05:00 l Asthma [place] (disorder) Resolved Problem 10/04/2016 [facility] Arthritis Problem Resolve 2016-10-04 M emoria (disorder) d 00:05:00 l [place] Arthritis (disorder) Resolved Problem 10/04/2016 [facility] Peripheral Problem Resolve 2016-10-04 Memoria vascular d 00:05:00 l disease [place] (disorder) Peripheral vascular disease (disorder) Resolved Problem 10/04/2016 [facility] Polyp of Problem Resolve 2016-10-04 Me moria colon d 00:05:00 l (disorder) Polyp of He rmann colon (disorder) Resolved Problem 10/04/2016 [facility] ENCNTR FOR Diagnosis Active 2016-10-01 Memoria GENERAL 10:31:00 l ADULT ENCNTR [place] MEDICAL FOR EXAM W/ GENERAL ADULT MEDICAL EXAM W/ Active [facility] OTHER Diagnosis Active 2017-02-10 Mem oria FECAL 16:16:00 l ABNORMALIT OTHER Elisa nn IES FECAL ABNORMALIT IES Active [facility] Allergies, Adverse Reactions, Alerts Allergy Allergy Status Severity Reaction(s) Onset Inactive Treating Comm ents Source Name Type Date Date Clinician HYDROXYZ DRUG Active Hives 2019-03 Univers INE INGREDI 0-12 ity of 00:00: [place] 00 Medical Branch Hydroxyz Propensi Active Hives 2019-03 Univer s ine ty to 0-12 ity of adverse 00:00: [place] reaction 00 Medical s Branch METRONID DRUG Active High Hives 2018-03 Univers AZOLE INGREDI 0-15 ity of 00:00: [place] 00 Medical Branch Metronid Drug Active Hives 2018-03 Univers azole Allergy 0-15 ity of 00:00: [place] 00 Medical Branch PROPOXYP DRUG Active High Anaphylaxis 2017-0 Uni vers HENE 10-22 ity of N-ACETAM 00:00: [place] INOPHEN 00 Medical Branch BUPROPIO DRUG Active Other-Cmnt 2017- Univ ers N HCL INGREDI 10-22 ity of 00:00: [place] 00 Medical Branch PIOGLITA DRUG Active Unknown-Cmnt Un soni ZONE INGREDI 10-22 ity of 00:00: [place] 00 Medical Branch TRIMETHO DRUG Active Unknown-Cmnt 2017 Un soni PRIM INGREDI 10-22 ity of 00:00: [place] 00 Medical Branch Bupropio Propensi Active Other - See 2017 U nivers n Hcl ty to comments 10-22 ity of adverse 00:00: [place] reaction 00 Medical s Branch Pioglita Propensi Active Unknown - 2017 Uni vers zone ty to See comments 10-22 ity of adverse 00:00: [place] reaction 00 Medical s Branch Propoxyp Propensi Active Anaphylaxis 2017- U nivers hene ty to 10-22 ity of N-Acetam adverse 00:00: [place] inophen reaction 00 Medical s Branch Trimetho Propensi Active Unknown - 2017 Uni vers prim ty to See comments 10-22 ity of adverse 00:00: [place] reaction 00 Medical s Branch PIOGLITA DRUG Active Hives 2017- Univers ZONE HCL INGREDI 09-01 ity of 00:00: [place] 00 Medical Branch CLINDAMY DRUG Active ITCHING 2017 Univers FABIÁN INGREDI 09-01 ity of 00:00: [place] 00 Medical Branch ROSUVAST DRUG Active ITCHING 2017-0 Univers ATIN INGREDI 09-01 ity of CALCIUM 00:00: [place] 00 Medical Branch ERYTHROM DRUG Active Other-Cmnt 2017-0 Univ ers YCIN 09-01 ity of 00:00: [place] 00 Medical Branch GLIMEPIR DRUG Active Hives 2017-0 Univers ADRIAN INGREDI 09-01 ity of 00:00: [place] 00 Medical Branch IODINE DRUG Active Hives 2017-0 Univers INGREDI 09-01 ity of 00:00: [place] 00 Medical Branch SITAGLIP DRUG Active Other-Cmnt 2017-0 Univ ers TIN INGREDI 09-01 ity of 00:00: [place] 00 Medical Branch ATORVAST DRUG Active Other-Cmnt [id number] Univ ers ATIN INGREDI 09-01 ity of 00:00: [place] 00 Medical Branch PENICILL DRUG Active Swelling Univer s IN INGREDI 09-01 ity of 00:00: [place] 00 Medical Branch SULFA Drug Active Hives Univers (SULFONA Class 09-01 ity of MIDE 00:00: [place] ANTIBIOT 00 Medical ICS) Branch SULFAMET DRUG Active Hives Univers HOXAZOLE INGREDI 09-01 ity of 00:00: [place] 00 Medical Branch BUPROPIO DRUG Active Hives Univers N INGREDI 09-01 ity of 00:00: [place] 00 Medical Branch CODEINE DRUG Active Low ITCHING Univers INGREDI 09-01 ity of 00:00: [place] 00 Medical Branch MORPHINE DRUG Active Low ITCHING Univers INGREDI 09-01 ity of 00:00: [place] 00 Medical Branch Pioglita Propensi Active Hives Univer s zone Hcl ty to 09-01 ity of adverse 00:00: [place] reaction 00 Medical s Branch Clindamy Propensi Active Itching Unive rs fabián ty to 09-01 ity of adverse 00:00: [place] reaction 00 Medical s Branch Codeine Propensi Active Itching Univer s ty to 09-01 ity of adverse 00:00: [place] reaction 00 Medical s to Branch drug Rosuvast Propensi Active Itching Unive rs atin ty to 09-01 ity of Calcium adverse 00:00: [place] reaction 00 Medical s Branch Erythrom Propensi Active Other - See 2017 U nivers ycin ty to comments 09-01 ity of adverse 00:00: [place] reaction 00 Medical s Branch Glimepir Propensi Active Hives Univer s adrian ty to 09-01 ity of adverse 00:00: [place] reaction 00 Medical s Branch Iodine Propensi Active Hives IV Univers ty to 09-01 contrast ity of adverse 00:00: only. As [place] reaction 00 of Medical s 09/01/16, Branch has not previousl y used oral contrast. Sitaglip Propensi Active Other - See 2017 U nivers tin ty to comments 09-01 ity of adverse 00:00: [place] reaction 00 Medical s Branch Atorvast Propensi Active Other - See U nivers atin ty to comments 09-01 ity of adverse 00:00: [place] reaction 00 Medical s Branch Morphine Propensi Active Itching Unive rs ty to 09-01 ity of adverse 00:00: [place] reaction 00 Medical s to Branch drug Penicill Propensi Active Swelling Univ ers in ty to 09-01 ity of adverse 00:00: [place] reaction Medical s Branch Sulfa Propensi Active Hives Univers (Sulfona ty to 09-01 ity of mide adverse 00:00: [place] Antibiot reaction 00 Medica l ics) s Branch Sulfamet Propensi Active Hives Univer s hoxazole ty to 09-01 ity of adverse 00:00: [place] reaction 00 Medical s Branch Bupropio Propensi Active Hives Univer s n ty to 09-01 ity of adverse 00:00: [place] reaction 00 Medical s Branch morphine morphine Active Memori a l [place] penicill penicill Active Memori a ins ins l [place] sulfa sulfa Active Memoria drugs drugs l [place] Wellbutr Wellbutr Active Memori a in in l [place] Bactrim Bactrim Active Memoria l [place] Bandaids Bandaids Active Memori a l [place] clindamy clindamy Active Memori a fabián fabián l [place] codeine codeine Active Memoria l [place] Crestor Crestor Active Memoria l [place] Darvocet Darvocet Active Memori a -N 50 -N 50 l [place] erythrom erythrom Active Memori a ycin ycin l [place] glimepir glimepir Active Memori a adrian adrian l [place] glipiZID glipiZID Active Memori a E E l [place] iodine iodine Active Memoria l [place] Januvia Januvia Active Memoria l [place] Lipitor Lipitor Active Memoria l [place] penicill Adverse Active Info Not [facility] codeine Adverse Active Info Not [facility] Reaction Available [facility] Sulfa Adverse Active Info Not [facility] Reaction Available [facility] metFORMI metFORMI Active Memori a N N l [place] MORPHINE Adverse Active Info Not [facility] Reaction [facility] Social History Social Habit Start Date Stop Date Quantity Comments Source Exposure to Not sure University of SARS-CoV-2 (event) [place] [facility] [place] History SDWA University o f [facility] University o f Alcohol Std Drinks [place] [facility] [place] History [facility] University o f Alcohol Binge [facility] al [place] History of tobacco Cigarette Smoker University of use [facility] Alcohol intake 2021-02-07 2021-02-07 .14 /d University of 00:00:00 00:00:00 [facility] Alcohol Comment 2019-01-06 2019-01-06 1 glass of wine Univ ersity of 00:00:00 00:00:00 every few months [facility] dical [place] Cigarettes smoked 2019-01-06 2019-01-06 Univers ity of current (pack per 00:00:00 00:00:00 [facility] ) - Reported Branch Cigarette 2019-01-06 2019-01-06 University of pack-years 00:00:00 00:00:00 [facility] Tobacco use and 2019-01-06 2019-01-06 Never used Universit y of exposure 00:00:00 00:00:00 [facility] Tobacco Comment 2016-09-02 2016-09-02 quit in 2014 Univers ity of 00:00:00 00:00:00 [facility] Social History 2016-07-02 2016-07-02 [facility] ayaka 15:44:33 15:44:33 [birth year] Universit y of 00:00:00 00:00:00 [facility] Smoking Status Start Date Stop Date Source Current every day smoker 2019-01-06 00:00:00 Uni versity of [facility] Medications Ordered Filled Start Stop Current Ordering Indication Dosage Frequency Signature Comments Components Source Medication Medication Date Date Medication? Clinician (SIG) Name Name ascorbic 2020-03 Yes 500mg Take 500 Univ ers acid, 2-14 mg by ity of vitamin C, 16:37: mouth [place] 500 mg 13 daily. Medical tablet Branch aspirin 81 2020-03 Yes 81mg Take 81 mg U nivers mg EC 2-14 by mouth ity of tablet 16:37: daily. [place] [id number] Medical Branch Cholecalcif 2020-03 Yes Take by Un soni mechelle, 2-14 mouth ity of Vitamin D3, 16:37: [place]. [place] 1,000 unit 13 Medical capsule Branch Magnesium 2020-03 Yes Take by Univ ers Oxide 500 2-14 mouth ity of mg Tab 16:37: daily. [place] 13 Medical Branch insulin 2020-03 Yes Inject as Univ ers regular, 2-14 directed ity of human 16:37: as needed. [place] (NOVOLIN R 13 Medical INJECTION) Branch zinc 2020-03 Yes Take by Univers sulfate 2-14 mouth. ity of (ZINC-15 16:37: [place] ORAL) 13 Medical Branch citalopram 2020-03 Yes 20mg Take 20 mg U nivers 20 mg 2-14 by mouth ity of tablet 16:37: daily. [place] 13 Medical Branch metoprolol 2020-03 Yes [id number] 25mg Take 1 Univers succinate 1-12 tablet by ity o f XL 25 mg 24 00:00: mouth [place] hr tablet 00 daily. Medical Branch Ferrous Yes [id number] 1{tbl} Take 1 U nivers Fumarate 9-10 tablet by ity of 324 mg (106 00:00: mouth 2 Manuel as mg iron) 00 (two) Medical Tab times Branch daily. insulin NPH Yes [id number] 8U inject 8 Univers and regular 9-08 Units ity of human 70-30 00:00: [place] the [place] (NOVOLIN 00 skin 2 Medical 70/30 U-100 (two) Branch INSULIN) times 100 unit/mL daily (70-30) before injection breakfast and dinner. SERTraline Yes [id number] 100mg Take 1 Univers 100 mg 9-06 tablet by ity of tablet 00:00: mouth [place] 00 daily. Medical Branch albuterol Yes [id number] 2{puff} Inhale 2 Univers 90 9-02 Puffs ity of mcg/actuati 00:00: every 6 Manuel as on inhaler 00 (six) Medical hours as Branch needed for Wheezing or Shortness of Breath. gabapentin Yes [id number] 200mg Take 2 Univers 100 mg 7-20 capsules ity of capsule 00:00: by mouth [place] 00 every Medical evening. Branch Methylcellu Yes [id number] 17g Take 17 g Univers lose, with 1-27 by mouth ity o f Sugar, 00:00: daily. [place] (CITRUCEL, 00 Medical SUCROSE,) Branch powder Belsomra Belsomra Yes Pricila [address] [facility] 7-24 [place] at bedtime Luke s - 00:00: as needed Memoria 00 l Outpati ent Clinics BusPIRone BusPIRone Yes Pricila [address] [facility] HCl HCl 6-10 [place] as needed [facility] - 00:00: for Memoria 00 anxiety l Outpati ent Clinics Trazodone Trazodone Yes Pricila 1/[address] [facility] HCl HCl 6-10 [place] tablet at [facility] - 00:00: bedtime as Memoria 00 needed for l sleep Outpati ent Clinics Ventolin Ventolin Yes Pricila [address] [facility] HFA HFA 3-19 [place] needed for Luke s - 00:00: sob/wheezi Memoria 00 ng l Outpati ent Clinics GoLYTELY Yes 240 mL, Memori a oral powder -06 PO, l for 16:28: Q10Min, [place] reconstitut 00 Give jug ion for Colonoscop y, # 1 ea, 0 Refill(s), Pharmacy: [facility] 527 Octreotide Yes See Memoria 0.2 MG/ML 07-02 Instructio l Injectable 20:01: ns, 200 Herm kun Solution 00 microgram [Sandostati IM left n] gluteal muscle, # 1 box, 0 Refill(s), given to patient, Pt brought her own supply 200 ACTUAT Yes 2 puff, Jim maya Albuterol -06 INHALATION l 0.09 15:52: , Q4H, 0 Nader MG/ACTUAT 00 Refill(s) Dry Powder Inhaler ascorbic Yes 500 mg = 1 Mem oria acid 500 mg 4-06 tab, PO, l oral tablet 15:52: Daily, 0 He rmann 00 Refill(s) Lorazepam Yes 0.5 mg = 1 Me moria 0.5 MG Oral 4-06 tab, PO, l Tablet 15:52: TID, 0 Nader [Ativan] 00 Refill(s) SandoSTATIN Yes IM, q4wk, M emoria [place] 406 0 l 15:52: Refill(s) [place] 00 Docusate 2017 Yes 100 mg = 1 Mem oria Sodium 100 4-06 cap, PO, l MG Oral 15:52: BID, 0 [place] Capsule 00 Refill(s) [Colace] NovoLIN 2017 Yes SUB-Q, 0 Memori a 70/30 4-06 Refill(s) l 15:52: [place] 00 Metformin 2017 Yes 1,000 mg = Me moria hydrochlori 4-06 1 tab, PO, l de 1000 MG 15:52: BID, 0 Elisa nn Oral Tablet 00 Refill(s) gabapentin 2017 Yes 300 mg = 1 M emoria 300 MG Oral 4-06 cap, PO, l Capsule 15:52: BID, # 90 Elisa nn 00 cap, 1 Refill(s) Famotidine Yes 20 mg = 1 Me moria 20 MG Oral 4-06 tab, PO, l Tablet 15:52: BID, # 6 [place] 00 tab, 0 Refill(s) Ondansetron 2017 Yes 4 mg = 1 Me moria 4 MG Oral 4-06 tab, PO, l Tablet 15:52: Q8H, 0 [place] [Zofran] 00 Refill(s) clopidogrel 2017 Yes 75 mg = 1 M emoria 75 MG Oral 4-06 tab, PO, l Tablet 15:52: Daily, 0 [place] [Plavix] 00 Refill(s) amitriptyli 2017 Yes 10 mg = 1 M emoria ne 10 mg 4-06 tab, PO, l oral tablet 15:52: Bedtime, # Nader 00 30 tab, 1 Refill(s) Omeprazole 2017 Yes 40 mg = 1 Me moria 40 MG 4-06 cap, PO, l Enteric 15:52: Daily, 0 [place] n Coated 00 Refill(s) Capsule [Prilosec] Cyclobenzap 2017 Yes 5 mg = 1 Me moria rine 4-06 tab, PO, l hydrochlori 15:52: TID, 0 Herm kun de 5 MG 00 Refill(s) Oral Tablet [Flexeril] Simvastatin 2017 Yes 20 mg = 1 M emoria 20 MG Oral 4-06 tab, PO, l Tablet 15:52: Bedtime, 0 Elisa nn [Zocor] 00 Refill(s) cholecalcif Yes 1,000 Memor ia mechelle 1000 07-02 IntlUnit = l intl units 15:52: 1 cap, PO, H ermann oral 00 Daily, 0 capsule Refill(s) Furosemide Yes 20 mg = 1 Me moria 20 MG Oral -06 tab, PO, l Tablet 15:52: Daily, 0 [place] [Lasix] 00 Refill(s) Insulin, Yes SUB-Q, Memoria Aspart, 07-02 TID-Before l Human 100 15:52: Meals, 0 Herm kun UNT/ML 00 Refill(s) Injectable Solution [NovoLog] Buspar Yes 15 mg, PO, Memor ia 4 BID, 0 l 15:52: Refill(s) Nader 00 Citalopram Yes 40 mg = 1 Me moria 40 MG Oral -06 tab, PO, l Tablet 15:52: Daily, 0 Nader [Celexa] 00 Refill(s) aspirin 81 Yes 81 mg = 1 Me moria mg tablet, 4-06 tab, PO, l enteric 15:52: Daily, # Gilbert n coated 00 90 tab, 3 Refill(s) Vitamin B Yes 1 tab, PO, Me moria Complex - Daily, 0 l oral tablet 15:52: Refill(s) H ermann 00 Fluticasone Yes INHALATION Memoria propionate 07-02 , BID, 0 l 0.05 15:52: Refill(s) Nader MG/ACTUAT 00 Dry Powder Inhaler Miralax Yes 17 gm, PO, Jim maya - Daily, 0 l 15:52: Refill(s) [place] 00 magnesium Yes 500 mg = 1 Me moria oxide 500 -06 tab, PO, l mg oral 15:52: Daily, 0 Gilbert n tablet 00 Refill(s) Tylenol Yes 500 mg, Memoria 4-06 PO, 0 l 15:52: Refill(s) [place]ader 00 Citalopram Citalopram Yes Pricila [address] [facility] Hydrobromid Hydrobromid Millender [facility] Vitamin D Vitamin D Yes Pricila [address] [facility] Millender [facility] Metformin Metformin Yes Pricila [address] [facility] HCl HCl Mill[place] with a [facility] Vitamin C Vitamin C Yes Pricila as [facility] Millender directed [facility] Aspirin Aspirin Yes Pricila [address] [facility] Adult Low Adult Low Millender [facility] Gabapentin Gabapentin Yes Pricila [address] [facility] Millender [facility] Vitamin B Vitamin B Yes Pricila as [facility] Complex Complex [facility] directed [facility] Immunizations Ordered Filled Immunization Date Status Comments [facility] Immunization Name Name SARS-COV-2 COVID-19 2020-11-15 Completed Unive rsity of MODERNA VACCINE 00:00:00 [facility] [place] SARS-COV-2 COVID-19 2020-06-03 Completed Unive rsity of MODERNA VACCINE 00:00:00 [facility] [place] SARS-COV-2 COVID-19 2020-05-06 Completed Unive rsity of MODERNA VACCINE 00:00:00 [facility] [place] Influenza High Dose 2020-01-11 Completed Unive rsity of [place] 00:00:00 [facility] Influenza High Dose 2019-01-20 Completed Unive rsity of 00:00:00 [facility] Pneumococcal 2019-01-20 Completed University o f Polysaccharide, 00:00:00 [facility] PPSV23 (PNEUMOVAX) Branch Pneumococcal 2016-12-11 Completed University o f Polysaccharide, 00:00:00 [facility] PPSV23 (PNEUMOVAX) Branch Vital Signs Vital Name Observation Time Observation Value Comments Source Systolic blood 2021-03-11 22:37:00 113 mm[Hg] Univer sity of [facility] Diastolic blood 2021-03-11 22:37:00 47 mm[Hg] Unive rsity of [facility] Heart rate 2021-03-11 22:37:00 82 /min [facility] Body height 2021-03-11 22:37:00 160 cm [facility] Body weight 2021-03-11 22:37:00 65.772 kg [facility] BMI 2021-03-11 22:37:00 25.69 kg/m2 [facility] Weight 2016-10-01 15:38:00 [facility] [place] BMI Calculated 2016-10-01 15:38:00 Memori al Nader Height 2016-10-01 15:38:00 160.02 cm [facility] [place] Respitory Rate 2016-10-01 15:38:00 Memori al Nader Heart Rate 2016-10-01 15:38:00 [facility] [place] Systolic (mm Hg) 2016-10-01 15:38:00 Jim rial Nader Diastolic (mm Hg) 2016-10-01 15:38:00 Mem orial [place] Height 2016-07-02 15:24:00 160.02 cm Memorial Nader Respitory Rate 2016-07-02 15:24:00 Memori al [place] Heart Rate 2016-07-02 15:24:00 [facility] [place] BMI Calculated 2016-07-02 15:24:00 Memori al [place] Weight 2016-07-02 15:24:00 [facility] [place] Systolic (mm Hg) 2016-07-02 15:24:00 Jim rial Nader Diastolic (mm Hg) 2016-07-02 15:24:00 Mem orial Nader Procedures Procedure Date / Time Performed Performing Clinician [facility] Endoscopy of GI tract [facility] H ermann Colonoscopy [facility] [place] Encounters Start End Encounter Admission Attending Care Care Encounter Source Date/Time Date/Time Type Type Clinicians Facility Department ID 2021-04-07 2021-04-07 ambulatory [facility] [id number] [facility] 2021-03-14 2021-03-14 ambulatory [facility] [id number] [facility] 2021-03-14 2021-03-14 ambulatory [facility] [id number] [facility] 2021-03-11 2021-03-11 Office [facility] [id number] [facility] 15:15:00 17:38:47 Visit [facility] [id number] ity of CLINICS [id number] Zayda lopez [phone] [address] 2021-02-07 2021-02-07 [facility] [id number] Univers 09:20:00 09:31:58 HAMLET to o f [facility] 2021-02-01 2021-02-01 Outpatient DMG DMG [id number] [facility] 11:01:00 11:01:00 1106 [facility] l [facility] 2020-12-11 2020-12-11 Outpatient STLMLC STLMLC [id number] [facility] 2020-04-11 2020-04-11 Outpatient R SD [facility] [id number] Univers 13:30:00 16:02:08 [place] to [facility] 2020-03-27 2020-03-27 [facility] [id number] 00:00:00 00:00:00 [facility] [id number] [place] [id number] Professio [phone] [place] [address] Office [address] One 2020-03-26 2020-03-26 [facility]phone [facility] [id number] 00:00:00 00:00:00 [facility] [id number] [place] [id number] Professio [phone] [place] [address] Office Building One 2020-03-25 2020-03-25 Telephone [facility] [id number] 00:00:00 00:00:00 [facility] [id number] Edward [place] [id number] Professio [phone] [place] [address] Office Building One 2020-03-01 2020-03-01 Orders Doctor GUZMAN [id number] 00:00:00 00:00:00 Only Unassigned, JULIUS [id number] [place] [facility] [id number] [id number] [id number] 2020-02-29 2020-02-29 Patient Doctor [facility] [id number] 00:00:00 00:00:00 Secure Msg Unassigned, Health [id number] [place] [id number] Professio [phone] nal [facility] Office Building One 2020-02-26 2020-02-26 Telephone [facility] [id number] 00:00:00 00:00:00 [facility] [id number] [place] [id number] Professio [phone] nal [facility] Office Building One 2020-02-01 2020-02-01 [facility] 1.2.840.114 [id number] 00:00:00 00:00:00 [facility] [id number] Edward [place] [id number] Professio [phone] nal [facility] Office Building One 2020-01-31 2020-01-31 Orders Doctor THOMAS 1.2.840.114 [id number] 00:00:00 00:00:00 Only Unassigned, JULIUS [id number] [place] [facility] 4.2.7.2.686 [phone] [id number] 2020-01-23 2020-01-23 Orders Doctor THOMAS 1.2.840.114 [id number] 00:00:00 00:00:00 Only Unassigned, JULIUS [id number] [place] [facility] 4.2.7.2.686 [id number] [id number] 2020-01-09 2020-01-09 [facility]phone [facility] 1.2.840.114 [id number] 00:00:00 00:00:00 [facility] [id number] [place] [id number] Professio [phone] nal 044 Office Building One 2020-01-08 2020-01-08 Urgent Provider, [facility] [id number] 16:10:58 16:30:58 [facility] [id number] Care [place] [id number] Professio [phone] nal [facility] Office Building One 2019-11-29 2019-11-29 Orders Doctor THOMAS 1.2.840.114 [id number] 00:00:00 00:00:00 Only Unassigned, JULIUS [id number] [place] [facility] 4.2.7.2.686 [id number] 009 2019-11-17 2019-11-18 Office PEDRO Nazario 1.2.840.114 [id number] 08:28:10 17:49:23 Visit Lidia Juarez [id number] [place] 4.2.7.2.686 [place] [phone] [place] [address] Building 2018-12-07 2018-12-07 [facility] [id number] [address] 08:19:00 08:19:00 [facility] Medicine Outpati ent Clinics 2018-12-06 2018-12-06 [facility] [id number] 10:40:00 10:40:00 [facility] Medicine Outpati ent Clinics 2018-11-22 2018-11-22 [facility] [id number] 09:02:00 09:02:00 t [facility] Medicine Outpati ent Clinics 2018-11-18 2018-11-18 [facility] [id number] 09:05:00 09:05:00 t [facility] Medicine Medicine Outpati ent Clinics 2018-11-10 2018-11-10 [facility] [id number] 16:00:00 16:00:00 [facility] Medicine Medicine Outpati ent Clinics 2018-10-19 2018-10-19 [facility] [id number] 14:30:00 14:30:00 [facility] Medicine Outpati ent Clinics 2018-06-14 2018-06-14 [facility] [id number] 08:32:00 08:32:00 [facility] Medicine Outpati ent Clinics 2018-06-07 2018-06-07 [facility] [id number] 13:45:00 13:45:00 [facility] 2016-10-01 2016-10-02 Outpatient [facility] [id number] [facility] 15:22:00 04:59:00 r [place] 01 l EDDC [place] 2016-07-02 2016-07-03 Outpatient [place] [id number] [facility] 15:08:00 04:59:00 r [place] 00 l EDDC [place] Results Test Description Test Time Test Comments Results Result Comments Source POCT-GLUCOSE METER 2016-12-16 08:26:00 Test Item Value Reference Range Interpretation Comme nts POC-GLUCOSE METER (BEAKER) (test 175 mg/dL 70-110 H TESTED AT [facility] [address] code = 1538) [facility] 7[address] 0 [id number] 07:30:00 Test Item Value Reference Range Interpretation Comments MAGNESIUM (BEAKER) 1.8 mg/dL 1.6-2.6 Specimen slightly (test code = 627) hemolyzed [id number] 07:30:00 Test Item Value Reference Range Interpretation Comments PHOSPHORUS (BEAKER) 3.2 mg/dL 2.3-4.7 Specimen slightly (test code = 604) hemolyzed BASIC METABOLIC [id number] 07:30:00 Test Item Value Reference Range Interpretation Comments SODIUM (BEAKER) 138 meq/L 136-145 (test code = 381) POTASSIUM (BEAKER) 4.2 meq/L 3.5-5.1 Specimen slightly (test code = 379) hemolyzed CHLORIDE (BEAKER) 108 meq/L 98-107 H (test code = 382) CO2 (BEAKER) (test 23 meq/L 22-29 code = 355) BLOOD UREA NITROGEN 6 mg/dL 7-21 L (BEAKER) (test code = 354) CREATININE (BEAKER) 0.83 mg/dL 0.57-1.25 Specimen slightly (test code = 358) hemolyzed GLUCOSE RANDOM 145 mg/dL 70-105 H (BEAKER) (test code = 652) CALCIUM (BEAKER) 9.4 mg/dL 8.4-10.2 (test code = 697) EGFR (BEAKER) (test 68 mL/min/1.73 ESTIMA OLIVER GFR IS code = 1092) sq m NOT ACCURATE CREATININE CLEARANCE IN PREDICTING GLOMERULAR FILTRATION RATE . ESTIMATED GFR I S NOT APPLICABLE FOR DIALYSIS PATIEN TS. CBC W/PLT COUNT & AUTO [id number] 06:50:00 Test Item Value Reference Range Interpretation Comments WHITE BLOOD CELL COUNT (BEAKER) 5.5 K/ L 3.5-10.5 (test code = 775) RED BLOOD CELL COUNT (BEAKER) 3.98 M/ L 3.93-5.22 (test code = 761) HEMOGLOBIN (BEAKER) (test code = 10.3 GM/DL 11.2-15.7 L 410) HEMATOCRIT (BEAKER) (test code = 36.3 % 34.1-44.9 411) MEAN CORPUSCULAR VOLUME (BEAKER) 91.2 fL 79.4-94.8 (test code = 753) MEAN CORPUSCULAR HEMOGLOBIN 25.9 pg 25.6-32.2 (BEAKER) (test code = 751) MEAN CORPUSCULAR HEMOGLOBIN CONC 28.4 GM/DL 32.2-35.5 L (BEAKER) (test code = 752) RED CELL DISTRIBUTION WIDTH 16.4 % 11.7-14.4 H (BEAKER) (test code = 412) PLATELET COUNT (BEAKER) (test 354 K/CU MM 150-450 code = 756) MEAN PLATELET VOLUME (BEAKER) 9.9 fL 9.4-12.3 (test code = 754) NUCLEATED RED BLOOD CELLS 0 /100 WBC 0-0 (BEAKER) (test code = 413) NEUTROPHILS RELATIVE PERCENT 68 % (BEAKER) (test code = 429) LYMPHOCYTES RELATIVE PERCENT 14 % (BEAKER) (test code = 430) MONOCYTES RELATIVE PERCENT 11 % (BEAKER) (test code = 431) EOSINOPHILS RELATIVE PERCENT 6 % (BEAKER) (test code = 432) BASOPHILS RELATIVE PERCENT 1 % (BEAKER) (test code = 437) NEUTROPHILS ABSOLUTE COUNT 3.75 K/ L 1.56-6.13 (BEAKER) (test code = 670) LYMPHOCYTES ABSOLUTE COUNT 0.80 K/ L 1.18-3.74 L (BEAKER) (test code = 414) MONOCYTES ABSOLUTE COUNT (BEAKER) 0.60 K/ L 0.24-0.36 H (test code = 415) EOSINOPHILS ABSOLUTE COUNT 0.33 K/ L 0.04-0.36 (BEAKER) (test code = 416) BASOPHILS ABSOLUTE COUNT (BEAKER) 0.05 K/ L 0.01-0.08 (test code = 417) IMMATURE GRANULOCYTES-RELATIVE 0 % 0-1 PERCENT (BEAKER) (test code = 2801) POCT-GLUCOSE [id number] 21:15:00 Test Item Value Reference Range Interpretation Comments POC-GLUCOSE METER 246 mg/dL 70-110 H TESTED AT [facility] 67 [facility] (test [facility] = [facility] Celaya [facility] 1538) [address] POCT-GLUCOSE [id number] 17:16:00 Test Item Value Reference Range Interpretation Comments POC-GLUCOSE METER 323 mg/dL 70-110 H TESTED AT [place] [address] ([facility] (test code = [facility] Belia [facility] 1538) [address] POCT-GLUCOSE [id number] 13:13:00 Test Item Value Reference Range Interpretation Comments POC-GLUCOSE METER 250 mg/dL 70-110 H TESTED AT [facility] 67 [facility] (test code = [facility] 1538) [address] POCT-GLUCOSE [id number] 08:26:00 Test Item Value Reference Range Interpretation Comments POC-GLUCOSE METER 261 mg/dL 70-110 H TESTED AT [facility] 67 [facility] (test code = [facility] 1538) [address] CALCIUM, [id number] 06:39:00 Test Item Value Reference Range Interpretation Comments CALCIUM IONIZED (BEAKER) (test 1.08 mmol/L 1.12-1.27 L code = 698) PH, BLOOD (BEAKER) (test code = 7.47 1810) [id number] 05:53:00 Test Item Value Reference Range Interpretation Comments PHOSPHORUS (BEAKER) (test code = 4.1 mg/dL 2.3-4.7 604) [id number] 05:53:00 Test Item Value Reference Range Interpretation Comments MAGNESIUM (BEAKER) (test code = 1.7 mg/dL 1.6-2.6 627) BASIC METABOLIC [id number] 05:53:00 Test Item Value Reference Range Interpretation Comments SODIUM (BEAKER) 138 meq/L 136-145 (test code = 381) POTASSIUM (BEAKER) 4.0 meq/L 3.5-5.1 (test code = 379) CHLORIDE (BEAKER) 106 meq/L 98-107 (test code = 382) CO2 (BEAKER) (test 25 meq/L 22-29 code = 355) BLOOD UREA NITROGEN 7 mg/dL 7-21 (BEAKER) (test code = 354) CREATININE (BEAKER) 0.92 mg/dL 0.57-1.25 (test code = 358) GLUCOSE RANDOM 213 mg/dL 70-105 H (BEAKER) (test code = 652) CALCIUM (BEAKER) 9.4 mg/dL 8.4-10.2 (test code = 697) EGFR (BEAKER) (test 60 mL/min/1.73 ESTIMA OLIVER GFR IS code = 1092) sq m NOT ACCURATE CREATININE CLEARANCE IN PREDICTING GLOMERULAR FILTRATION RATE . ESTIMATED GFR I S NOT APPLICABLE FOR DIALYSIS PATIEN TS. CBC W/PLT COUNT & AUTO [id number] 05:32:00 Test Item Value Reference Range Interpretation Comments WHITE BLOOD CELL COUNT (BEAKER) 6.9 K/ L 3.5-10.5 (test code = 775) RED BLOOD CELL COUNT (BEAKER) 3.90 M/ L 3.93-5.22 L (test code = 761) HEMOGLOBIN (BEAKER) (test code = 10.2 GM/DL 11.2-15.7 L 410) HEMATOCRIT (BEAKER) (test code = 32.9 % 34.1-44.9 L 411) MEAN CORPUSCULAR VOLUME (BEAKER) 84.4 fL 79.4-94.8 (test code = 753) MEAN CORPUSCULAR HEMOGLOBIN 26.2 pg 25.6-32.2 (BEAKER) (test code = 751) MEAN CORPUSCULAR HEMOGLOBIN CONC 31.0 GM/DL 32.2-35.5 L (BEAKER) (test code = 752) RED CELL DISTRIBUTION WIDTH 16.2 % 11.7-14.4 H (BEAKER) (test code = 412) PLATELET COUNT (BEAKER) (test 415 K/CU MM 150-450 code = 756) MEAN PLATELET VOLUME (BEAKER) 9.5 fL 9.4-12.3 (test code = 754) NUCLEATED RED BLOOD CELLS 0 /100 WBC 0-0 (BEAKER) (test code = 413) NEUTROPHILS RELATIVE PERCENT 69 % (BEAKER) (test code = 429) LYMPHOCYTES RELATIVE PERCENT 14 % (BEAKER) (test code = 430) MONOCYTES RELATIVE PERCENT 11 % (BEAKER) (test code = 431) EOSINOPHILS RELATIVE PERCENT 5 % (BEAKER) (test code = 432) BASOPHILS RELATIVE PERCENT 1 % (BEAKER) (test code = 437) NEUTROPHILS ABSOLUTE COUNT 4.71 K/ L 1.56-6.13 (BEAKER) (test code = 670) LYMPHOCYTES ABSOLUTE COUNT 0.98 K/ L 1.18-3.74 L (BEAKER) (test code = 414) MONOCYTES ABSOLUTE COUNT (BEAKER) 0.74 K/ L 0.24-0.36 H (test code = 415) EOSINOPHILS ABSOLUTE COUNT 0.35 K/ L 0.04-0.36 (BEAKER) (test code = 416) BASOPHILS ABSOLUTE COUNT (BEAKER) 0.07 K/ L 0.01-0.08 (test code = 417) IMMATURE GRANULOCYTES-RELATIVE 0 % 0-1 PERCENT (BEAKER) (test code = 2801) POCT-GLUCOSE [id number] 22:58:00 Test Item Value Reference Range Interpretation Comments POC-GLUCOSE METER 390 mg/dL 70-110 H Notified R N or ([facility]) (test code = Chapo valenzuela refused repeat 1538) test/TESTED AT [address] [address] POCT-GLUCOSE [id number] 21:18:00 Test Item Value Reference Range Interpretation Comments POC-GLUCOSE METER 404 mg/dL 70-110 HH Notified R N MD/TESTED ([facility]) (test code = AT [facility] [address] [place] [address] 1538) [place] [address] POCT-GLUCOSE [id number] 17:45:00 Test Item Value Reference Range Interpretation Comments POC-GLUCOSE METER 217 mg/dL 70-110 H TESTED AT [place] [address] ([facility]) (test code = GIRISH Celaya [facility] 1538) [address] POCT-GLUCOSE [id number] 12:07:00 Test Item Value Reference Range Interpretation Comments POC-GLUCOSE METER 209 mg/dL 70-110 H TESTED AT [facility] 6720 ([facility] (test code = GIRISH Celaya [place] 1538) [address] HEMOGLOBIN [id number] 07:58:00 Test Item Value Reference Range Interpretation Comments HEMOGLOBIN A1C (BEAKER) (test code = 5.8 % 4.3-6.1 368) TSH/FREE T4 IF [id number] 05:30:00 Test Item Value Reference Range Interpretation Comments THYROID STIMULATING HORMONE 1.75 uIU/mL 0.35-4.94 (BEAKER) (test code = 772) POCT-GLUCOSE [id number] 05:21:00 Test Item Value Reference Range Interpretation Comments POC-GLUCOSE METER 213 mg/dL 70-110 H TESTED AT [facility] 6720 ([facility]) (test code = GIRISH Celaya [facility] 1538) [address] [id number] 05:11:00 Test Item Value Reference Range Interpretation Comments PHOSPHORUS (BEAKER) (test code = 4.0 mg/dL 2.3-4.7 604) [id number] 05:11:00 Test Item Value Reference Range Interpretation Comments MAGNESIUM (BEAKER) (test code = 1.7 mg/dL 1.6-2.6 627) BASIC METABOLIC [id number] 05:11:00 Test Item Value Reference Range Interpretation Comments SODIUM (BEAKER) 138 meq/L 136-145 (test code = 381) POTASSIUM (BEAKER) 4.3 meq/L 3.5-5.1 (test code = 379) CHLORIDE (BEAKER) 104 meq/L 98-107 (test code = 382) CO2 (BEAKER) (test 26 meq/L 22-29 code = 355) BLOOD UREA NITROGEN 7 mg/dL 7-21 (BEAKER) (test code = 354) CREATININE (BEAKER) 0.93 mg/dL 0.57-1.25 (test code = 358) GLUCOSE RANDOM 173 mg/dL 70-105 H (BEAKER) (test code = 652) CALCIUM (BEAKER) 9.6 mg/dL 8.4-10.2 (test code = 697) EGFR (BEAKER) (test 60 mL/min/1.73 ESTIMA OLIVER GFR IS code = 1092) sq m NOT ACCURATE CREATININE CLEARANCE IN PREDICTING GLOMERULAR FILTRATION RATE . ESTIMATED GFR I S NOT APPLICABLE FOR DIALYSIS PATIEN TS. LIPID [id number] 05:11:00 Test Item Value Reference Range Interpretation Comments TRIGLYCERIDES (BEAKER) (test code = 197 mg/dL 540) CHOLESTEROL (BEAKER) (test code = 158 mg/dL 631) HDL CHOLESTEROL (BEAKER) (test code 29 mg/dL = 976) LDL CHOLESTEROL CALCULATED (BEAKER) 90 mg/dL (test code = 633) Triglyceride Reference Range: Low Risk <150 Borderline 150-199 High Risk 200-499 Very High Risk >=500Cholesterol Reference Range: Low Risk <200 Borderline 200-239 High Risk >240HDL Cholesterol Reference Range: Low Risk >=60 High Risk <40LDL Cholesterol Reference Range: Optimal <100 Near Optimal 100-129 Borderline 130-159 High 160-189 Very High >=190CBC W/PLT COUNT & AUTO [id number] 04:48:00 Test Item Value Reference Range Interpretation Comments WHITE BLOOD CELL COUNT (BEAKER) 7.0 K/ L 3.5-10.5 (test code = 775) RED BLOOD CELL COUNT (BEAKER) 3.91 M/ L 3.93-5.22 L (test code = 761) HEMOGLOBIN (BEAKER) (test code = 10.3 GM/DL 11.2-15.7 L 410) HEMATOCRIT (BEAKER) (test code = 33.3 % 34.1-44.9 L 411) MEAN CORPUSCULAR VOLUME (BEAKER) 85.2 fL 79.4-94.8 (test code = 753) MEAN CORPUSCULAR HEMOGLOBIN 26.3 pg 25.6-32.2 (BEAKER) (test code = 751) MEAN CORPUSCULAR HEMOGLOBIN CONC 30.9 GM/DL 32.2-35.5 L (BEAKER) (test code = 752) RED CELL DISTRIBUTION WIDTH 16.1 % 11.7-14.4 H (BEAKER) (test code = 412) PLATELET COUNT (BEAKER) (test 473 K/CU MM 150-450 H code = 756) MEAN PLATELET VOLUME (BEAKER) 9.7 fL 9.4-12.3 (test code = 754) NUCLEATED RED BLOOD CELLS 0 /100 WBC 0-0 (BEAKER) (test code = 413) NEUTROPHILS RELATIVE PERCENT 64 % (BEAKER) (test code = 429) LYMPHOCYTES RELATIVE PERCENT 18 % (BEAKER) (test code = 430) MONOCYTES RELATIVE PERCENT 11 % (BEAKER) (test code = 431) EOSINOPHILS RELATIVE PERCENT 5 % (BEAKER) (test code = 432) BASOPHILS RELATIVE PERCENT 1 % (BEAKER) (test code = 437) NEUTROPHILS ABSOLUTE COUNT 4.50 K/ L 1.56-6.13 (BEAKER) (test code = 670) LYMPHOCYTES ABSOLUTE COUNT 1.29 K/ L 1.18-3.74 (BEAKER) (test code = 414) MONOCYTES ABSOLUTE COUNT (BEAKER) 0.77 K/ L 0.24-0.36 H (test code = 415) EOSINOPHILS ABSOLUTE COUNT 0.38 K/ L 0.04-0.36 H (BEAKER) (test code = 416) BASOPHILS ABSOLUTE COUNT (BEAKER) 0.08 K/ L 0.01-0.08 (test code = 417) IMMATURE GRANULOCYTES-RELATIVE 0 % 0-1 PERCENT (BEAKER) (test code = 2801) CALCIUM, [id number] 04:13:00 Test Item Value Reference Range Interpretation Comments CALCIUM IONIZED (BEAKER) (test 1.15 mmol/L 1.12-1.27 code = 698) PH, BLOOD (BEAKER) (test code = 7.47 1810) POCT-GLUCOSE [id number] 21:03:00 Test Item Value Reference Range Interpretation Comments POC-GLUCOSE METER 220 mg/dL 70-110 H TESTED AT [facility] 6720 (BEAKER) (test code = [place] 1538) [address] IRON, TIBC, % SAT. (WITHOUT FERRITIN)[id number] 19:01:00 Test Item Value Reference Range Interpretation Comments IRON (BEAKER) (test code = 547) 23 ug/dL 40-160 L TOTAL IRON BINDING CAPACITY 404 ug/dL 250-450 (BEAKER) (test code = 769) IRON % SATURATION (2) (BEAKER) 6 % 20-55 L (test code = 2590) POCT-GLUCOSE [id number] 17:23:00 Test Item Value Reference Range Interpretation Comments POC-GLUCOSE METER 371 mg/dL 70-110 H TESTED AT [facility] 6720 ([facility]) (test code = GIRISH Celaya [place] 1538) [address] POCT-GLUCOSE [id number] 05:33:00 Test Item Value Reference Range Interpretation Comments POC-GLUCOSE METER 227 mg/dL 70-110 H TESTED AT [address] ([facility]) (test code [address] [facility] [place] = 1538) [address] POCT-GLUCOSE [id number] 20:59:00 Test Item Value Reference Range Interpretation Comments POC-GLUCOSE METER 266 mg/dL 70-110 H TESTED AT [address] ([facility]) (test code [address] [facility] [place] = 1538) [address] POCT-GLUCOSE [id number] 20:58:00 Test Item Value Reference Range Interpretation Comments POC-GLUCOSE METER 300 mg/dL 70-110 H TESTED AT [address] ([facility]) (test code [address] [facility] [place] = 1538) [address] POCT-GLUCOSE [id number] 20:58:00 Test Item Value Reference Range Interpretation Comments POC-GLUCOSE METER 177 mg/dL 70-110 H TESTED AT [address] ([facility]) (test code [address] [facility] [place] = 1538) [address] HEMORRHAGE IMAGING, [id number] 13:30:00FINAL REPORT PROCEDURE: HEMORRHAGE STUDY with RBCs CPT CODE: 92171 INDICATION: Gastrointestinal Bleeding PROTOCOL: 21.5 mCi of [...] MDReport Verified Date/Time: 12/12/2016 13:30:53 Reading Location: [address] Reading Room POCT-GLUCOSE [id number] 11:21:00 Test Item Value Reference Range Interpretation Comments POC-GLUCOSE METER 168 mg/dL 70-110 H TESTED AT [facility] [address] [place] (BEAKER) (test code [address] [facility] [place] = 1538) [address] POCT-GLUCOSE [id number] 11:21:00 Test Item Value Reference Range Interpretation Comments POC-GLUCOSE METER 184 mg/dL 70-110 H TESTED AT [facility] [address] [place] (BEAKER) (test code [address] [facility] [place] = 1538) [address] BASIC METABOLIC [id number] 05:16:00 Test Item Value Reference Range Interpretation Comments SODIUM (BEAKER) 141 meq/L 135-148 (test code = 381) POTASSIUM (BEAKER) 4.3 meq/L 3.6-5.5 (test code = 379) CHLORIDE (BEAKER) 105 meq/L 98-106 (test code = 382) CO2 (BEAKER) (test 25 meq/L 20-29 code = 355) BLOOD UREA NITROGEN 13 mg/dL 10-26 (BEAKER) (test code = 354) CREATININE (BEAKER) 0.90 mg/dL 0.50-1.20 (test code = 358) GLUCOSE RANDOM 151 mg/dL 70-110 H (BEAKER) (test code = 652) CALCIUM (BEAKER) 9.4 mg/dL 8.5-10.5 (test code = 697) EGFR (BEAKER) (test 62 mL/min/1.73 ESTIMA OLIVER GFR IS code = 1092) sq m NOT ACCURATE CREATININE CLEARANCE IN PREDICTING GLOMERULAR FILTRATION RATE . ESTIMATED GFR I S NOT APPLICABLE FOR DIALYSIS PATIEN TS. [id number] 05:10:00 Test Item Value Reference Range Interpretation Comments MAGNESIUM (BEAKER) (test code = 2.0 mg/dL 1.5-3.0 627) CBC W/PLT COUNT & AUTO [id number] 04:57:00 Test Item Value Reference Range Interpretation Comments WHITE BLOOD CELL COUNT (BEAKER) 8.4 K/ L 4.0-10.0 (test code = 775) RED BLOOD CELL COUNT (BEAKER) 3.88 M/ L 4.00-5.00 L (test code = 761) HEMOGLOBIN (BEAKER) (test code = 10.5 GM/DL 12.0-15.0 L 410) HEMATOCRIT (BEAKER) (test code = 32.1 % 36.0-45.0 L 411) MEAN CORPUSCULAR VOLUME (BEAKER) 82.7 fL 82.0-99.0 (test code = 753) MEAN CORPUSCULAR HEMOGLOBIN 27.1 pg 27.0-33.0 (BEAKER) (test code = 751) MEAN CORPUSCULAR HEMOGLOBIN CONC 32.7 GM/DL 32.0-36.0 (BEAKER) (test code = 752) RED CELL DISTRIBUTION WIDTH 18.1 % 10.3-14.2 H (BEAKER) (test code = 412) PLATELET COUNT (BEAKER) (test 527 K/CU MM 150-430 H code = 756) MEAN PLATELET VOLUME (BEAKER) 7.5 fL 6.5-10.5 (test code = 754) NUCLEATED RED BLOOD CELLS 0 /100 WBC 0-0 (BEAKER) (test code = 413) NEUTROPHILS RELATIVE PERCENT 74 % (BEAKER) (test code = 429) LYMPHOCYTES RELATIVE PERCENT 13 % (BEAKER) (test code = 430) MONOCYTES RELATIVE PERCENT 8 % (BEAKER) (test code = 431) EOSINOPHILS RELATIVE PERCENT 5 % (BEAKER) (test code = 432) BASOPHILS RELATIVE PERCENT 1 % (BEAKER) (test code = 437) NEUTROPHILS ABSOLUTE COUNT 6.20 K/ L 1.80-8.00 (BEAKER) (test code = 670) LYMPHOCYTES ABSOLUTE COUNT 1.10 K/ L 1.48-4.50 L (BEAKER) (test code = 414) MONOCYTES ABSOLUTE COUNT (BEAKER) 0.60 K/ L 0.00-1.30 (test code = 415) EOSINOPHILS ABSOLUTE COUNT 0.40 K/ L 0.00-0.50 (BEAKER) (test code = 416) BASOPHILS ABSOLUTE COUNT (BEAKER) 0.10 K/ L 0.00-0.20 (test code = 417) POCT-GLUCOSE [id number] 17:02:00 Test Item Value Reference Range Interpretation Comments POC-GLUCOSE METER 177 mg/dL 70-110 H TESTED AT [address] (BEAKER) (test code [facility] [place] = 1538) [id number] POCT-GLUCOSE [id number] 11:34:00 Test Item Value Reference Range Interpretation Comments POC-GLUCOSE METER 207 mg/dL 70-110 H TESTED AT [facility] [address] (BEAKER) (test code [address] [facility] [place] = 1534) [address] CBC W/PLT COUNT & AUTO [id number] 10:45:00 Test Item Value Reference Range Interpretation Comments WHITE BLOOD CELL COUNT (BEAKER) 7.3 K/ L 4.0-10.0 (test code = 775) RED BLOOD CELL COUNT (BEAKER) 3.03 M/ L 4.00-5.00 L (test code = 761) HEMOGLOBIN (BEAKER) (test code = 7.8 GM/DL 12.0-15.0 L 410) HEMATOCRIT (BEAKER) (test code = 24.1 % 36.0-45.0 L 411) MEAN CORPUSCULAR VOLUME (BEAKER) 79.6 fL 82.0-99.0 L (test code = 753) MEAN CORPUSCULAR HEMOGLOBIN 25.7 pg 27.0-33.0 L (BEAKER) (test code = 751) MEAN CORPUSCULAR HEMOGLOBIN CONC 32.3 GM/DL 32.0-36.0 (BEAKER) (test code = 752) RED CELL DISTRIBUTION WIDTH 17.3 % 10.3-14.2 H (BEAKER) (test code = 412) PLATELET COUNT (BEAKER) (test 581 K/CU MM 150-430 H code = 756) MEAN PLATELET VOLUME (BEAKER) 7.0 fL 6.5-10.5 (test code = 754) NUCLEATED RED BLOOD CELLS 0 /100 WBC 0-0 (BEAKER) (test code = 413) NEUTROPHILS RELATIVE PERCENT 70 % (BEAKER) (test code = 429) LYMPHOCYTES RELATIVE PERCENT 17 % (BEAKER) (test code = 430) MONOCYTES RELATIVE PERCENT 8 % (BEAKER) (test code = 431) EOSINOPHILS RELATIVE PERCENT 5 % (BEAKER) (test code = 432) BASOPHILS RELATIVE PERCENT 1 % (BEAKER) (test code = 437) NEUTROPHILS ABSOLUTE COUNT 5.10 K/ L 1.80-8.00 (BEAKER) (test code = 670) LYMPHOCYTES ABSOLUTE COUNT 1.20 K/ L 1.48-4.50 L (BEAKER) (test code = 414) MONOCYTES ABSOLUTE COUNT (BEAKER) 0.60 K/ L 0.00-1.30 (test code = 415) EOSINOPHILS ABSOLUTE COUNT 0.30 K/ L 0.00-0.50 (BEAKER) (test code = 416) BASOPHILS ABSOLUTE COUNT (BEAKER) 0.10 K/ L 0.00-0.20 (test code = 417) (MANUAL DIFFERENTIAL)2016-12-11 10:45:00 Test Item Value Reference Range Interpretation Comments TOTAL COUNTED (BEAKER) (test code = 1351) WBC MORPHOLOGY (BEAKER) (test Normal code = 487) PLT MORPHOLOGY (BEAKER) (test Normal code = 486) ANISOCYTOSIS (BEAKER) (test code 1+ few = 961) HYPOCHROMIA (BEAKER) (test code = 2+ moderate 963) BASIC METABOLIC [id number] 09:40:00 Test Item Value Reference Range Interpretation Comments SODIUM (BEAKER) 138 meq/L 135-148 (test code = 381) POTASSIUM (BEAKER) 4.5 meq/L 3.6-5.5 (test code = 379) CHLORIDE (BEAKER) 105 meq/L 98-106 (test code = 382) CO2 (BEAKER) (test 25 meq/L 20-29 code = 355) BLOOD UREA NITROGEN 16 mg/dL 10-26 (BEAKER) (test code = 354) CREATININE (BEAKER) 1.00 mg/dL 0.50-1.20 (test code = 358) GLUCOSE RANDOM 168 mg/dL 70-110 H (BEAKER) (test code = 652) CALCIUM (BEAKER) 9.1 mg/dL 8.5-10.5 (test code = 697) EGFR (BEAKER) (test 55 mL/min/1.73 ESTIMA OLIVER GFR IS code = 1092) sq m NOT ACCURATE CREATININE CLEARANCE IN PREDICTING GLOMERULAR FILTRATION RATE . ESTIMATED GFR I S NOT APPLICABLE FOR DIALYSIS PATIEN TS. [id number] 09:39:00 Test Item Value Reference Range Interpretation Comments PHOSPHORUS (BEAKER) (test code = 3.3 mg/dL 2.5-4.5 604) [id number] 09:34:00 Test Item Value Reference Range Interpretation Comments MAGNESIUM (BEAKER) (test code = 2.1 mg/dL 1.5-3.0 627) POCT-GLUCOSE [id number] 06:01:00 Test Item Value Reference Range Interpretation Comments POC-GLUCOSE METER 171 mg/dL 70-110 H TESTED AT [facility] [address] (BEAKER) (test code [address] [facility] [place] = 1538) [address] POCT-GLUCOSE [id number] 06:00:00 Test Item Value Reference Range Interpretation Comments POC-GLUCOSE METER 148 mg/dL 70-110 H TESTED AT [facility] [address] (BEAKER) (test code [address] [facility] [place] = 1538) [address] URINALYSIS W/ [id number] 05:01:00 Test Item Value Reference Range Interpretation Comments COLOR (BEAKER) (test code = Yellow 470) CLARITY (BEAKER) (test code = Clear 469) SPECIFIC GRAVITY UA (BEAKER) 1.020 1.001-1.035 (test code = 468) PH UA (BEAKER) (test code = 5.5 5.0-8.0 467) PROTEIN UA (BEAKER) (test code Negative Negative = 464) GLUCOSE UA (BEAKER) (test code Negative Negative = 365) KETONES UA (BEAKER) (test code Negative Negative = 371) BILIRUBIN UA (BEAKER) (test Negative Negative code = 462) BLOOD UA (BEAKER) (test code = Negative Negative 461) NITRITE UA (BEAKER) (test code Negative Negative = 465) LEUKOCYTE ESTERASE UA (BEAKER) Negative Negative (test code = 466) UROBILINOGEN UA (BEAKER) (test 0.2 mg/dL 0.2-1.0 code = 463) BACTERIA (BEAKER) (test code = Occasional 517) RBC UA-MANUAL (BEAKER) (test None Seen /HPF code = 1659) WBC UA-MANUAL (BEAKER) (test <5 /HPF code = 1661) SQUAMOUS EPITHELIAL MANUAL <5 /HPF (BEAKER) (test code = 1663) SOURCE(BEAKER) (test code = 2795) RAD, CHEST, 1 VIEW, NON [id number] 21:04:00Reason for exam:->coughShould this be performed at [...] cardiopulmonary disease or intervalchange. Signed: Sam Sanchez MDReport Verified Date/Time: 12/10/2016 21:04:27 Reading Location: [facility] [id number] Consult Reading Room OCCULT BLOOD, [id number] 20:24:00 Test Item Value Reference Range Interpretation Comments FECAL OCCULT BLOOD (BEAKER) (test Positive Negative A code = 618) CBC W/PLT COUNT & AUTO [id number] 20:10:00 Test Item Value Reference Range Interpretation Comments WHITE BLOOD CELL COUNT (BEAKER) 14.8 K/ L 4.0-10.0 H (test code = 775) RED BLOOD CELL COUNT (BEAKER) 3.09 M/ L 4.00-5.00 L (test code = 761) HEMOGLOBIN (BEAKER) (test code = 7.8 GM/DL 12.0-15.0 L 410) HEMATOCRIT (BEAKER) (test code = 24.3 % 36.0-45.0 L 411) MEAN CORPUSCULAR VOLUME (BEAKER) 78.7 fL 82.0-99.0 L (test code = 753) MEAN CORPUSCULAR HEMOGLOBIN 25.2 pg 27.0-33.0 L (BEAKER) (test code = 751) MEAN CORPUSCULAR HEMOGLOBIN CONC 32.1 GM/DL 32.0-36.0 (BEAKER) (test code = 752) RED CELL DISTRIBUTION WIDTH 17.7 % 10.3-14.2 H (BEAKER) (test code = 412) PLATELET COUNT (BEAKER) (test 784 K/CU MM 150-430 H code = 756) MEAN PLATELET VOLUME (BEAKER) 7.7 fL 6.5-10.5 (test code = 754) NUCLEATED RED BLOOD CELLS 0 /100 WBC 0-0 (BEAKER) (test code = 413) NEUTROPHILS RELATIVE PERCENT 80 % (BEAKER) (test code = 429) LYMPHOCYTES RELATIVE PERCENT 12 % (BEAKER) (test code = 430) MONOCYTES RELATIVE PERCENT 6 % (BEAKER) (test code = 431) EOSINOPHILS RELATIVE PERCENT 2 % (BEAKER) (test code = 432) BASOPHILS RELATIVE PERCENT 1 % (BEAKER) (test code = 437) NEUTROPHILS ABSOLUTE COUNT 11.80 K/ L 1.80-8.00 H (BEAKER) (test code = 670) LYMPHOCYTES ABSOLUTE COUNT 1.70 K/ L 1.48-4.50 (BEAKER) (test code = 414) MONOCYTES ABSOLUTE COUNT (BEAKER) 0.80 K/ L 0.00-1.30 (test code = 415) EOSINOPHILS ABSOLUTE COUNT 0.30 K/ L 0.00-0.50 (BEAKER) (test code = 416) BASOPHILS ABSOLUTE COUNT (BEAKER) 0.10 K/ L 0.00-0.20 (test code = 417) (MANUAL DIFFERENTIAL)2016-12-10 20:10:00 Test Item Value Reference Range Interpretation Comments TOTAL COUNTED (BEAKER) (test code = 1351) WBC MORPHOLOGY (BEAKER) (test Normal code = 487) LARGE PLT(BEAKER) (test code = Present 2156) GIANT PLATELETS (BEAKER) (test Present code = 313) ANISOCYTOSIS (BEAKER) (test code 1+ few = 961) HYPOCHROMIA (BEAKER) (test code = 2+ moderate 963) POLYCHROMATOPHILLIC RBCS(BEAKER) 1+ few (test code = 478) [id number] 20:07:00 Test Item Value Reference Range Interpretation Comments PROTIME (BEAKER) (test code = 9.8 seconds 9.3-12.0 759) INR (BEAKER) (test code = 370) 0.9 <=5.9 PARTIAL THROMBOPLASTIN TIME 20.2 seconds 23.0-35.0 L (BEAKER) (test code = 760) RECOMMENDED COUMADIN/WARFARIN INR THERAPY RANGESSTANDARD DOSE: 2.0 - 3.0 Includes: PROPHYLAXIS forvenous thrombosis, systemic embolization; TREATMENT for venous thrombosis and/or pulmonary embolus.HIGH RISK: Target INR is 2.5-3.5 for patients with mechanical heart valves.[id number] 20:07:00 Test Item Value Reference Range Interpretation Comments LIPASE (BEAKER) (test code = 749) 37 U/L 6-51 COMPREHENSIVE METABOLIC [id number] 20:06:00 Test Item Value Reference Range Interpretation Comments TOTAL PROTEIN 7.2 gm/dL 6.0-8.5 (BEAKER) (test code = 770) ALBUMIN (BEAKER) 4.1 g/dL 3.5-5.0 (test code = 1145) ALKALINE PHOSPHATASE 78 U/L 30-115 (BEAKER) (test code = 346) BILIRUBIN TOTAL 0.4 mg/dL 0.1-1.2 (BEAKER) (test code = 377) SODIUM (BEAKER) (test 136 meq/L 135-148 code = 381) POTASSIUM (BEAKER) 4.5 meq/L 3.6-5.5 (test code = 379) CHLORIDE (BEAKER) 102 meq/L 98-106 (test code = 382) CO2 (BEAKER) (test 21 meq/L 20-29 code = 355) BLOOD UREA NITROGEN 20 mg/dL 10-26 (BEAKER) (test code = 354) CREATININE (BEAKER) 1.20 mg/dL 0.50-1.20 (test code = 358) GLUCOSE RANDOM 215 mg/dL 70-110 H (BEAKER) (test code = 652) CALCIUM (BEAKER) 9.7 mg/dL 8.5-10.5 (test code = 697) AST (SGOT) (BEAKER) 19 U/L 5-40 (test code = 353) ALT (SGPT) (BEAKER) 13 U/L 5-50 (test code = 347) EGFR (BEAKER) (test 44 mL/min/1.73 ESTIMA OLIVER GFR IS code = 1092) sq m NOT ACCURATE CREATININE CLEARANCE IN PREDICTING GLOMERULAR FILTRATION RATE . ESTIMATED GFR I S NOT APPLICABLE FOR DIALYSIS PATIEN TS. BLOOD [id number] 06:00:00 Test Item Value Reference Range Interpretation Comments CULTURE (BEAKER) (test No growth in 5 days code = 1095) BLOOD [id number] 06:00:00 Test Item Value Reference Range Interpretation Comments CULTURE (BEAKER) (test No growth in 5 days code = 1095) POCT-GLUCOSE [id number] 12:19:00 Test Item Value Reference Range Interpretation Comments POC-GLUCOSE METER 132 mg/dL 70-110 H TESTED AT [facility] [address] (BEAKER) (test code = [place] 1538) [address] POCT-GLUCOSE [id number] 11:19:00 Test Item Value Reference Range Interpretation Comments POC-GLUCOSE METER 222 mg/dL 70-110 H TESTED AT [facility] [address] (BEAKER) (test code = [place] [facility] 1538) [address] POCT-GLUCOSE [id number] 07:21:00 Test Item Value Reference Range Interpretation Comments POC-GLUCOSE METER 309 mg/dL 70-110 H Notified R Jose MD/TESTED (BEAKER) (test code = AT [facility] [address] [facility] 1538) [facility] 7[address] 0 CBC W/PLT COUNT & AUTO [id number] 05:52:00 Test Item Value Reference Range Interpretation Comments WHITE BLOOD CELL COUNT (BEAKER) 6.8 K/ L 3.5-10.5 (test code = 775) RED BLOOD CELL COUNT (BEAKER) 3.35 M/ L 3.93-5.22 L (test code = 761) HEMOGLOBIN (BEAKER) (test code = 8.8 GM/DL 11.2-15.7 L 410) HEMATOCRIT (BEAKER) (test code = 29.2 % 34.1-44.9 L 411) MEAN CORPUSCULAR VOLUME (BEAKER) 87.2 fL 79.4-94.8 (test code = 753) MEAN CORPUSCULAR HEMOGLOBIN 26.3 pg 25.6-32.2 (BEAKER) (test code = 751) MEAN CORPUSCULAR HEMOGLOBIN CONC 30.1 GM/DL 32.2-35.5 L (BEAKER) (test code = 752) RED CELL DISTRIBUTION WIDTH 14.8 % 11.7-14.4 H (BEAKER) (test code = 412) PLATELET COUNT (BEAKER) (test 285 K/CU MM 150-450 code = 756) MEAN PLATELET VOLUME (BEAKER) 10.4 fL 9.4-12.3 (test code = 754) NUCLEATED RED BLOOD CELLS 0 /100 WBC 0-0 (BEAKER) (test code = 413) NEUTROPHILS RELATIVE PERCENT 69 % (BEAKER) (test code = 429) LYMPHOCYTES RELATIVE PERCENT 15 % (BEAKER) (test code = 430) MONOCYTES RELATIVE PERCENT 9 % (BEAKER) (test code = 431) EOSINOPHILS RELATIVE PERCENT 6 % (BEAKER) (test code = 432) BASOPHILS RELATIVE PERCENT 1 % (BEAKER) (test code = 437) NEUTROPHILS ABSOLUTE COUNT 4.66 K/ L 1.56-6.13 (BEAKER) (test code = 670) LYMPHOCYTES ABSOLUTE COUNT 1.02 K/ L 1.18-3.74 L (BEAKER) (test code = 414) MONOCYTES ABSOLUTE COUNT (BEAKER) 0.61 K/ L 0.24-0.36 H (test code = 415) EOSINOPHILS ABSOLUTE COUNT 0.39 K/ L 0.04-0.36 H (BEAKER) (test code = 416) BASOPHILS ABSOLUTE COUNT (BEAKER) 0.04 K/ L 0.01-0.08 (test code = 417) IMMATURE GRANULOCYTES-RELATIVE 0 % 0-1 PERCENT (BEAKER) (test code = 2801) POCT-GLUCOSE [id number] 21:36:00 Test Item Value Reference Range Interpretation Comments POC-GLUCOSE METER 284 mg/dL 70-110 H TESTED AT [place] [address] ([facility]) (test code = [place] [address]) [address] POCT-GLUCOSE [id number] 17:03:00 Test Item Value Reference Range Interpretation Comments POC-GLUCOSE METER 394 mg/dL 70-110 H Notified R Jose FELIX/TESTED ([facility]) (test code = AT [place] [address]) [place] [address] 0 POCT-GLUCOSE [id number] 11:47:00 Test Item Value Reference Range Interpretation Comments POC-GLUCOSE METER 332 mg/dL 70-110 H Notified R Jose FELIX/TESTED ([facility]) (test code = AT [place] [address]) [place] [id number] 0 POCT-GLUCOSE [id number] 07:19:00 Test Item Value Reference Range Interpretation Comments POC-GLUCOSE METER 350 mg/dL 70-110 H Notified R Jose FELIX/TESTED (BEAKER) (test code = AT [place] [address]) [place] [address] 0 BASIC METABOLIC [id number] 05:27:00 Test Item Value Reference Range Interpretation Comments SODIUM (BEAKER) 137 meq/L 136-145 (test code = 381) POTASSIUM (BEAKER) 4.1 meq/L 3.5-5.1 (test code = 379) CHLORIDE (BEAKER) 106 meq/L 98-107 (test code = 382) CO2 (BEAKER) (test 23 meq/L 22-29 code = 355) BLOOD UREA NITROGEN 9 mg/dL 7-21 (BEAKER) (test code = 354) CREATININE (BEAKER) 0.85 mg/dL 0.57-1.25 (test code = 358) GLUCOSE RANDOM 284 mg/dL 70-105 H (BEAKER) (test code = 652) CALCIUM (BEAKER) 8.9 mg/dL 8.4-10.2 (test code = 697) EGFR (BEAKER) (test 66 mL/min/1.73 ESTIMA OLIVER GFR IS code = 1092) sq m NOT ACCURATE CREATININE CLEARANCE IN PREDICTING GLOMERULAR FILTRATION RATE . ESTIMATED GFR I S NOT APPLICABLE FOR DIALYSIS PATIEN TS. CBC W/PLT COUNT & AUTO [id number] 05:05:00 Test Item Value Reference Range Interpretation Comments WHITE BLOOD CELL COUNT (BEAKER) 5.7 K/ L 3.5-10.5 (test code = 775) RED BLOOD CELL COUNT (BEAKER) 3.10 M/ L 3.93-5.22 L (test code = 761) HEMOGLOBIN (BEAKER) (test code = 8.3 GM/DL 11.2-15.7 L 410) HEMATOCRIT (BEAKER) (test code = 26.9 % 34.1-44.9 L 411) MEAN CORPUSCULAR VOLUME (BEAKER) 86.8 fL 79.4-94.8 (test code = 753) MEAN CORPUSCULAR HEMOGLOBIN 26.8 pg 25.6-32.2 (BEAKER) (test code = 751) MEAN CORPUSCULAR HEMOGLOBIN CONC 30.9 GM/DL 32.2-35.5 L (BEAKER) (test code = 752) RED CELL DISTRIBUTION WIDTH 14.8 % 11.7-14.4 H (BEAKER) (test code = 412) PLATELET COUNT (BEAKER) (test 254 K/CU MM 150-450 code = 756) MEAN PLATELET VOLUME (BEAKER) 10.6 fL 9.4-12.3 (test code = 754) NUCLEATED RED BLOOD CELLS 0 /100 WBC 0-0 (BEAKER) (test code = 413) NEUTROPHILS RELATIVE PERCENT 69 % (BEAKER) (test code = 429) LYMPHOCYTES RELATIVE PERCENT 16 % (BEAKER) (test code = 430) MONOCYTES RELATIVE PERCENT 8 % (BEAKER) (test code = 431) EOSINOPHILS RELATIVE PERCENT 5 % (BEAKER) (test code = 432) BASOPHILS RELATIVE PERCENT 1 % (BEAKER) (test code = 437) NEUTROPHILS ABSOLUTE COUNT 3.92 K/ L 1.56-6.13 (BEAKER) (test code = 670) LYMPHOCYTES ABSOLUTE COUNT 0.92 K/ L 1.18-3.74 L (BEAKER) (test code = 414) MONOCYTES ABSOLUTE COUNT (BEAKER) 0.46 K/ L 0.24-0.36 H (test code = 415) EOSINOPHILS ABSOLUTE COUNT 0.30 K/ L 0.04-0.36 (BEAKER) (test code = 416) BASOPHILS ABSOLUTE COUNT (BEAKER) 0.05 K/ L 0.01-0.08 (test code = 417) IMMATURE GRANULOCYTES-RELATIVE 0 % 0-1 PERCENT (BEAKER) (test code = 2801) POCT-GLUCOSE [id number] 22:29:00 Test Item Value Reference Range Interpretation Comments POC-GLUCOSE METER 256 mg/dL 70-110 H TESTED AT [place] [address] ([facility]) (test code = [place] [address]) [address] POCT-GLUCOSE [id number] 18:52:00 Test Item Value Reference Range Interpretation Comments POC-GLUCOSE METER 366 mg/dL 70-110 H Notified Belia Adams MD/TESTED ([facility]) (test code = AT [place] [address]) [facility] [address] 0 POCT-GLUCOSE [id number] 12:02:00 Test Item Value Reference Range Interpretation Comments POC-GLUCOSE METER 399 mg/dL 70-110 H Notified Belia Adams MD/TESTED ([facility]) (test code = AT [place] [address]) [facility] 7[address] 0 POCT-GLUCOSE [id number] 09:06:00 Test Item Value Reference Range Interpretation Comments POC-GLUCOSE METER 236 mg/dL 70-110 H TESTED AT [place] [address] ([facility]) (test code = [place] [id number]) [address] POCT-GLUCOSE [id number] 08:28:00 Test Item Value Reference Range Interpretation Comments POC-GLUCOSE METER 271 mg/dL 70-110 H TESTED AT [place] [address] ([facility]) (test code = [facility] 1538) [address] POCT-GLUCOSE [id number] 06:31:00 Test Item Value Reference Range Interpretation Comments POC-GLUCOSE METER 236 mg/dL 70-110 H TEST[facility] AT [place] [address] ([facility] (test code = [facility] 1538) [address] BASIC METABOLIC [id number] 05:14:00 Test Item Value Reference Range Interpretation Comments SODIUM (BEAKER) 139 meq/L 136-145 (test code = 381) POTASSIUM (BEAKER) 4.2 meq/L 3.5-5.1 (test code = 379) CHLORIDE (BEAKER) 106 meq/L 98-107 (test code = 382) CO2 (BEAKER) (test 27 meq/L 22-29 code = 355) BLOOD UREA NITROGEN 9 mg/dL 7-21 (BEAKER) (test code = 354) CREATININE (BEAKER) 0.93 mg/dL 0.57-1.25 (test code = 358) GLUCOSE RANDOM 257 mg/dL 70-105 H (BEAKER) (test code = 652) CALCIUM (BEAKER) 8.9 mg/dL 8.4-10.2 (test code = 697) EGFR (BEAKER) (test 60 mL/min/1.73 ESTIMA OLIVER GFR IS code = 1092) sq m NOT ACCURATE CREATININE CLEARANCE IN PREDICTING GLOMERULAR FILTRATION RATE . ESTIMATED GFR I S NOT APPLICABLE FOR DIALYSIS PATIEN TS. HEMOGLOBIN AND [id number] 05:02:00 Test Item Value Reference Range Interpretation Comments HEMOGLOBIN (BEAKER) (test code = 7.9 GM/DL 11.2-15.7 L 410) HEMATOCRIT (BEAKER) (test code = 25.5 % 34.1-44.9 L 411) POCT-GLUCOSE [id number] 22:05:00 Test Item Value Reference Range Interpretation Comments POC-GLUCOSE METER 235 mg/dL 70-110 H TESTED AT [place] [address] ([facility] (test code = [facility] 1538) [address] POCT-GLUCOSE [id number] 21:56:00 Test Item Value Reference Range Interpretation Comments POC-GLUCOSE METER 274 mg/dL 70-110 H TESTED AT [place] [address] ([facility] (test code = [facility] 1538) [address] HEMOGLOBIN AND [id number] 21:00:00 Test Item Value Reference Range Interpretation Comments HEMOGLOBIN (BEAKER) (test code = 7.9 GM/DL 11.2-15.7 L 410) HEMATOCRIT (BEAKER) (test code = 26.1 % 34.1-44.9 L 411) POCT-GLUCOSE [id number] 17:28:00 Test Item Value Reference Range Interpretation Comments POC-GLUCOSE METER 291 mg/dL 70-110 H TESTED AT [place] [address] ([facility]) (test code = [facility] 1538) [address] VANCOMYCIN LEVEL, [id number] 14:15:00 Test Item Value Reference Range Interpretation Comments VANCOMYCIN TROUGH ([facility]) (test 18.1 ug/mL 10.0-20.0 code = 522) HEMOGLOBIN AND [id number] 13:53:00 Test Item Value Reference Range Interpretation Comments HEMOGLOBIN (BEAKER) (test code = 8.6 GM/DL 11.2-15.7 L 410) HEMATOCRIT (BEAKER) (test code = 28.0 % 34.1-44.9 L 411) POCT-GLUCOSE [id number] 06:09:00 Test Item Value Reference Range Interpretation Comments POC-GLUCOSE METER 205 mg/dL 70-110 H TESTED AT [place] [address] ([facility]) (test code = [facility] 1538) [address] BASIC METABOLIC [id number] 03:51:00 Test Item Value Reference Range Interpretation Comments SODIUM (BEAKER) 134 meq/L 136-145 L (test code = 381) POTASSIUM (BEAKER) 4.4 meq/L 3.5-5.1 Specimen slightly (test code = 379) hemolyzed CHLORIDE (BEAKER) 105 meq/L 98-107 (test code = 382) CO2 (BEAKER) (test 22 meq/L 22-29 code = 355) BLOOD UREA NITROGEN 8 mg/dL 7-21 (BEAKER) (test code = 354) CREATININE (BEAKER) 0.96 mg/dL 0.57-1.25 Specimen slightly (test code = 358) hemolyzed GLUCOSE RANDOM 196 mg/dL 70-105 H (BEAKER) (test code = 652) CALCIUM (BEAKER) 8.4 mg/dL 8.4-10.2 (test code = 697) EGFR (BEAKER) (test 58 mL/min/1.73 ESTIMA OLIVER GFR IS code = 1092) sq m NOT ACCURATE CREATININE CLEARANCE IN PREDICTING GLOMERULAR FILTRATION RATE . ESTIMATED GFR I S NOT APPLICABLE FOR DIALYSIS PATIEN TS. CBC W/PLT COUNT & AUTO [id number] 03:28:00 Test Item Value Reference Range Interpretation Comments WHITE BLOOD CELL COUNT (BEAKER) 6.2 K/ L 3.5-10.5 (test code = 775) RED BLOOD CELL COUNT (BEAKER) 2.95 M/ L 3.93-5.22 L (test code = 761) HEMOGLOBIN (BEAKER) (test code = 7.9 GM/DL 11.2-15.7 L 410) HEMATOCRIT (BEAKER) (test code = 25.4 % 34.1-44.9 L 411) MEAN CORPUSCULAR VOLUME (BEAKER) 86.1 fL 79.4-94.8 (test code = 753) MEAN CORPUSCULAR HEMOGLOBIN 26.8 pg 25.6-32.2 (BEAKER) (test code = 751) MEAN CORPUSCULAR HEMOGLOBIN CONC 31.1 GM/DL 32.2-35.5 L (BEAKER) (test code = 752) RED CELL DISTRIBUTION WIDTH 15.2 % 11.7-14.4 H (BEAKER) (test code = 412) PLATELET COUNT (BEAKER) (test 256 K/CU MM 150-450 code = 756) MEAN PLATELET VOLUME (BEAKER) 9.7 fL 9.4-12.3 (test code = 754) NUCLEATED RED BLOOD CELLS 0 /100 WBC 0-0 (BEAKER) (test code = 413) NEUTROPHILS RELATIVE PERCENT 71 % (BEAKER) (test code = 429) LYMPHOCYTES RELATIVE PERCENT 12 % (BEAKER) (test code = 430) MONOCYTES RELATIVE PERCENT 11 % (BEAKER) (test code = 431) EOSINOPHILS RELATIVE PERCENT 6 % (BEAKER) (test code = 432) BASOPHILS RELATIVE PERCENT 1 % (BEAKER) (test code = 437) NEUTROPHILS ABSOLUTE COUNT 4.40 K/ L 1.56-6.13 (BEAKER) (test code = 670) LYMPHOCYTES ABSOLUTE COUNT 0.72 K/ L 1.18-3.74 L (BEAKER) (test code = 414) MONOCYTES ABSOLUTE COUNT (BEAKER) 0.68 K/ L 0.24-0.36 H (test code = 415) EOSINOPHILS ABSOLUTE COUNT 0.38 K/ L 0.04-0.36 H (BEAKER) (test code = 416) BASOPHILS ABSOLUTE COUNT (BEAKER) 0.04 K/ L 0.01-0.08 (test code = 417) IMMATURE GRANULOCYTES-RELATIVE 0 % 0-1 PERCENT (BEAKER) (test code = 2801) POCT-GLUCOSE [id number] 00:46:00 Test Item Value Reference Range Interpretation Comments POC-GLUCOSE METER 331 mg/dL 70-110 H TESTED AT [place] [address] (BEAKER) (test code = [place] [facility] 1538) [address] HEMOGLOBIN AND [id number] 23:35:00 Test Item Value Reference Range Interpretation Comments HEMOGLOBIN (BEAKER) (test code = 8.0 GM/DL 11.2-15.7 L 410) HEMATOCRIT (BEAKER) (test code = 24.9 % 34.1-44.9 L 411) POCT-GLUCOSE [id number] 18:09:00 Test Item Value Reference Range Interpretation Comments POC-GLUCOSE METER 391 mg/dL 70-110 H Notified R Jose FELIX/TESTED (BEAKER) (test code = AT [facility] [address] [place] [address]) [facility] [id number] HEMOGLOBIN AND [id number] 16:39:00 Test Item Value Reference Range Interpretation Comments HEMOGLOBIN (BEAKER) (test code = 6.7 GM/DL 11.2-15.7 L 410) HEMATOCRIT (BEAKER) (test code = 22.4 % 34.1-44.9 L 411) POCT-GLUCOSE [id number] 12:39:00 Test Item Value Reference Range Interpretation Comments POC-GLUCOSE METER 238 mg/dL 70-110 H TESTED AT [place] [address] (BEAKER) (test code = [place] [facility] 1538) [address] HEMOGLOBIN AND [id number] 11:15:00 Test Item Value Reference Range Interpretation Comments HEMOGLOBIN (BEAKER) (test code = 7.5 GM/DL 11.2-15.7 L 410) HEMATOCRIT (BEAKER) (test code = 24.9 % 34.1-44.9 L 411) CBC W/PLT COUNT & AUTO [id number] 07:49:00 Test Item Value Reference Range Interpretation Comments WHITE BLOOD CELL COUNT (BEAKER) 12.0 K/ L 3.5-10.5 H (test code = 775) RED BLOOD CELL COUNT (BEAKER) 2.12 M/ L 3.93-5.22 L (test code = 761) HEMOGLOBIN (BEAKER) (test code = 5.5 GM/DL 11.2-15.7 LL 410) HEMATOCRIT (BEAKER) (test code = 18.8 % 34.1-44.9 L 411) MEAN CORPUSCULAR VOLUME (BEAKER) 88.7 fL 79.4-94.8 (test code = 753) MEAN CORPUSCULAR HEMOGLOBIN 25.9 pg 25.6-32.2 (BEAKER) (test code = 751) MEAN CORPUSCULAR HEMOGLOBIN CONC 29.3 GM/DL 32.2-35.5 L (BEAKER) (test code = 752) RED CELL DISTRIBUTION WIDTH 16.0 % 11.7-14.4 H (BEAKER) (test code = 412) PLATELET COUNT (BEAKER) (test 301 K/CU MM 150-450 code = 756) MEAN PLATELET VOLUME (BEAKER) 10.3 fL 9.4-12.3 (test code = 754) NUCLEATED RED BLOOD CELLS 0 /100 WBC 0-0 (BEAKER) (test code = 413) NEUTROPHILS RELATIVE PERCENT 89 % (BEAKER) (test code = 429) LYMPHOCYTES RELATIVE PERCENT 4 % (BEAKER) (test code = 430) MONOCYTES RELATIVE PERCENT 5 % (BEAKER) (test code = 431) EOSINOPHILS RELATIVE PERCENT 1 % (BEAKER) (test code = 432) BASOPHILS RELATIVE PERCENT 0 % (BEAKER) (test code = 437) NEUTROPHILS ABSOLUTE COUNT 10.60 K/ L 1.56-6.13 H (BEAKER) (test code = 670) LYMPHOCYTES ABSOLUTE COUNT 0.50 K/ L 1.18-3.74 L (BEAKER) (test code = 414) MONOCYTES ABSOLUTE COUNT (BEAKER) 0.64 K/ L 0.24-0.36 H (test code = 415) EOSINOPHILS ABSOLUTE COUNT 0.14 K/ L 0.04-0.36 (BEAKER) (test code = 416) BASOPHILS ABSOLUTE COUNT (BEAKER) 0.02 K/ L 0.01-0.08 (test code = 417) IMMATURE GRANULOCYTES-RELATIVE 0 % 0-1 PERCENT (BEAKER) (test code = 2801) POCT-GLUCOSE [id number] 06:45:00 Test Item Value Reference Range Interpretation Comments POC-GLUCOSE METER 205 mg/dL 70-110 H TESTED AT [facility] 6720 (BEAKER) (test code = [place] 1538) [address] LACTIC ACID, VENOUS, WHOLE [id number] 01:37:00 Test Item Value Reference Range Interpretation Comments LACTATE BLOOD VENOUS (2) (BEAKER) 1.9 mmol/L 0.5-2.2 (test code = 2872) Effective 07/31/2015: Units/Reference Range ChangeNew: 0.5-2.2 mmol/L Previous: 5-20 mg/dLCOMPREHENSIVE METABOLIC [id number] 00:19:00 Test Item Value Reference Range Interpretation Comments TOTAL PROTEIN 6.8 gm/dL 6.0-8.3 (BEAKER) (test code = 770) ALBUMIN (BEAKER) 3.9 g/dL 3.5-5.0 (test code = 1145) ALKALINE PHOSPHATASE 78 U/L 40-150 (BEAKER) (test code = 346) BILIRUBIN TOTAL 0.5 mg/dL 0.2-1.2 (BEAKER) (test code = 377) SODIUM (BEAKER) (test 140 meq/L 136-145 code = 381) POTASSIUM (BEAKER) 4.3 meq/L 3.5-5.1 (test code = 379) CHLORIDE (BEAKER) 107 meq/L 98-107 (test code = 382) CO2 (BEAKER) (test 21 meq/L 22-29 L code = 355) BLOOD UREA NITROGEN 12 mg/dL 7-21 (BEAKER) (test code = 354) CREATININE (BEAKER) 1.18 mg/dL 0.57-1.25 (test code = 358) GLUCOSE RANDOM 178 mg/dL 70-105 H (BEAKER) (test code = 652) CALCIUM (BEAKER) 9.2 mg/dL 8.4-10.2 (test code = 697) AST (SGOT) (BEAKER) 15 U/L 5-34 (test code = 353) ALT (SGPT) (BEAKER) 14 U/L 6-55 (test code = 347) EGFR (BEAKER) (test 45 mL/min/1.73 ESTIMA OLIVER GFR IS code = 1092) sq m NOT ACCURATE CREATININE CLEARANCE IN PREDICTING GLOMERULAR FILTRATION RATE . ESTIMATED GFR I S NOT APPLICABLE FOR DIALYSIS PATIEN TS. [id number] 00:17:00 Test Item Value Reference Range Interpretation Comments PHOSPHORUS (BEAKER) (test code = 3.2 mg/dL 2.3-4.7 604) [id number] 00:17:00 Test Item Value Reference Range Interpretation Comments MAGNESIUM (BEAKER) (test code = 2.1 mg/dL 1.6-2.6 627) POCT-GLUCOSE [id number] 00:17:00 Test Item Value Reference Range Interpretation Comments POC-GLUCOSE METER 200 mg/dL 70-110 H TESTED AT [facility] 6720 (BEAKER) (test code = [place] 1538) [address] PROTHROMBIN [id number] 00:07:00 Test Item Value Reference Range Interpretation Comments PROTIME (BEAKER) (test code = 16.1 seconds 11.7-14.7 H 759) INR (BEAKER) (test code = 370) 1.3 <=5.9 RECOMMENDED COUMADIN/WARFARIN INR THERAPY RANGESSTANDARD DOSE: 2.0 - 3.0 Includes: PROPHYLAXIS forvenous thrombosis, systemic embolization; TREATMENT for venous thrombosis and/or pulmonary embolus.HIGH RISK: Target INR is 2.5-3.5 for patients with mechanical heart valves.CBC W/PLT COUNT & AUTO DIFFERENTIAL 2016-11-25 00:03:00 Test Item Value Reference Range Interpretation Comments WHITE BLOOD CELL COUNT (BEAKER) 14.3 K/ L 3.5-10.5 H (test code = 775) RED BLOOD CELL COUNT (BEAKER) 2.61 M/ L 3.93-5.22 L (test code = 761) HEMOGLOBIN (BEAKER) (test code = 6.9 GM/DL 11.2-15.7 L 410) HEMATOCRIT (BEAKER) (test code = 23.6 % 34.1-44.9 L 411) MEAN CORPUSCULAR VOLUME (BEAKER) 90.4 fL 79.4-94.8 (test code = 753) MEAN CORPUSCULAR HEMOGLOBIN 26.4 pg 25.6-32.2 (BEAKER) (test code = 751) MEAN CORPUSCULAR HEMOGLOBIN CONC 29.2 GM/DL 32.2-35.5 L (BEAKER) (test code = 752) RED CELL DISTRIBUTION WIDTH 15.9 % 11.7-14.4 H (BEAKER) (test code = 412) PLATELET COUNT (BEAKER) (test 392 K/CU MM 150-450 code = 756) MEAN PLATELET VOLUME (BEAKER) 10.0 fL 9.4-12.3 (test code = 754) NUCLEATED RED BLOOD CELLS 0 /100 WBC 0-0 (BEAKER) (test code = 413) NEUTROPHILS RELATIVE PERCENT 87 % (BEAKER) (test code = 429) LYMPHOCYTES RELATIVE PERCENT 9 % (BEAKER) (test code = 430) MONOCYTES RELATIVE PERCENT 2 % (BEAKER) (test code = 431) EOSINOPHILS RELATIVE PERCENT 1 % (BEAKER) (test code = 432) BASOPHILS RELATIVE PERCENT 0 % (BEAKER) (test code = 437) NEUTROPHILS ABSOLUTE COUNT 12.44 K/ L 1.56-6.13 H (BEAKER) (test code = 670) LYMPHOCYTES ABSOLUTE COUNT 1.24 K/ L 1.18-3.74 (BEAKER) (test code = 414) MONOCYTES ABSOLUTE COUNT (BEAKER) 0.30 K/ L 0.24-0.36 (test code = 415) EOSINOPHILS ABSOLUTE COUNT 0.18 K/ L 0.04-0.36 (BEAKER) (test code = 416) BASOPHILS ABSOLUTE COUNT (BEAKER) 0.05 K/ L 0.01-0.08 (test code = 417) IMMATURE GRANULOCYTES-RELATIVE 1 % 0-1 PERCENT (BEAKER) (test code = 2801) POCT-GLUCOSE [id number] 11:41:00 Test Item Value Reference Range Interpretation Comments POC-GLUCOSE METER 259 mg/dL 70-110 H TESTED AT [facility] 6720 (BEAKER) (test code = [place] 1538) [id number] 07:35:00 Test Item Value Reference Range Interpretation Comments PHOSPHORUS (BEAKER) (test code = 3.5 mg/dL 2.3-4.7 604) [id number] 07:35:00 Test Item Value Reference Range Interpretation Comments MAGNESIUM (BEAKER) (test code = 1.6 mg/dL 1.6-2.6 627) BASIC METABOLIC [id number] 07:35:00 Test Item Value Reference Range Interpretation Comments SODIUM (BEAKER) 134 meq/L 136-145 L (test code = 381) POTASSIUM (BEAKER) 4.0 meq/L 3.5-5.1 (test code = 379) CHLORIDE (BEAKER) 103 meq/L 98-107 (test code = 382) CO2 (BEAKER) (test 23 meq/L 22-29 code = 355) BLOOD UREA NITROGEN 12 mg/dL 7-21 (BEAKER) (test code = 354) CREATININE (BEAKER) 1.10 mg/dL 0.57-1.25 (test code = 358) GLUCOSE RANDOM 231 mg/dL 70-105 H (BEAKER) (test code = 652) CALCIUM (BEAKER) 8.5 mg/dL 8.4-10.2 (test code = 697) EGFR (BEAKER) (test 49 mL/min/1.73 ESTIMA OLIVER GFR IS code = 1092) sq m NOT ACCURATE CREATININE CLEARANCE IN PREDICTING GLOMERULAR FILTRATION RATE . ESTIMATED GFR I S NOT APPLICABLE FOR DIALYSIS PATIEN TS. POCT-GLUCOSE [id number] 07:33:00 Test Item Value Reference Range Interpretation Comments POC-GLUCOSE METER 247 mg/dL 70-110 H TESTED AT [facility] 6720 (BEAKER) (test code = [place] 1538) [address] CBC W/PLT COUNT & AUTO [id number] 06:53:00 Test Item Value Reference Range Interpretation Comments WHITE BLOOD CELL COUNT (BEAKER) 6.5 K/ L 3.5-10.5 (test code = 775) RED BLOOD CELL COUNT (BEAKER) 3.46 M/ L 3.93-5.22 L (test code = 761) HEMOGLOBIN (BEAKER) (test code = 9.5 GM/DL 11.2-15.7 L 410) HEMATOCRIT (BEAKER) (test code = 30.5 % 34.1-44.9 L 411) MEAN CORPUSCULAR VOLUME (BEAKER) 88.2 fL 79.4-94.8 (test code = 753) MEAN CORPUSCULAR HEMOGLOBIN 27.5 pg 25.6-32.2 (BEAKER) (test code = 751) MEAN CORPUSCULAR HEMOGLOBIN CONC 31.1 GM/DL 32.2-35.5 L (BEAKER) (test code = 752) RED CELL DISTRIBUTION WIDTH 14.7 % 11.7-14.4 H (BEAKER) (test code = 412) PLATELET COUNT (BEAKER) (test 268 K/CU MM 150-450 code = 756) MEAN PLATELET VOLUME (BEAKER) 10.4 fL 9.4-12.3 (test code = 754) NUCLEATED RED BLOOD CELLS 0 /100 WBC 0-0 (BEAKER) (test code = 413) NEUTROPHILS RELATIVE PERCENT 67 % (BEAKER) (test code = 429) LYMPHOCYTES RELATIVE PERCENT 17 % (BEAKER) (test code = 430) MONOCYTES RELATIVE PERCENT 11 % (BEAKER) (test code = 431) EOSINOPHILS RELATIVE PERCENT 5 % (BEAKER) (test code = 432) BASOPHILS RELATIVE PERCENT 1 % (BEAKER) (test code = 437) NEUTROPHILS ABSOLUTE COUNT 4.33 K/ L 1.56-6.13 (BEAKER) (test code = 670) LYMPHOCYTES ABSOLUTE COUNT 1.12 K/ L 1.18-3.74 L (BEAKER) (test code = 414) MONOCYTES ABSOLUTE COUNT (BEAKER) 0.68 K/ L 0.24-0.36 H (test code = 415) EOSINOPHILS ABSOLUTE COUNT 0.29 K/ L 0.04-0.36 (BEAKER) (test code = 416) BASOPHILS ABSOLUTE COUNT (BEAKER) 0.06 K/ L 0.01-0.08 (test code = 417) IMMATURE GRANULOCYTES-RELATIVE 0 % 0-1 PERCENT (BEAKER) (test code = 2801) POCT-GLUCOSE [id number] 21:09:00 Test Item Value Reference Range Interpretation Comments POC-GLUCOSE METER 398 mg/dL 70-110 H Patient on insulin (BEAKER) (test code = Drip/T ESTED AT [facility] 1536) [address] [facility] [address] POCT-GLUCOSE [id number] 17:42:00 Test Item Value Reference Range Interpretation Comments POC-GLUCOSE METER 341 mg/dL 70-110 H TESTED AT [facility] 6720 [facility] (test code = [place] 1538) [address] POCT-GLUCOSE [id number] 12:03:00 Test Item Value Reference Range Interpretation Comments POC-GLUCOSE METER 285 mg/dL 70-110 H TESTED AT [facility] 6720 (BEAKER) (test code = [facility] Belia [facility] 1538) [address] POCT-GLUCOSE [id number] 06:11:00 Test Item Value Reference Range Interpretation Comments POC-GLUCOSE METER 335 mg/dL 70-110 H TESTED AT [facility] 6720 (BEAKER) (test code = [facility] Belia [facility] 1538) [address] [id number] 05:12:00 Test Item Value Reference Range Interpretation Comments PHOSPHORUS (BEAKER) (test code = 4.0 mg/dL 2.3-4.7 604) [id number] 05:12:00 Test Item Value Reference Range Interpretation Comments MAGNESIUM (BEAKER) (test code = 1.5 mg/dL 1.6-2.6 L 627) BASIC METABOLIC [id number] 05:12:00 Test Item Value Reference Range Interpretation Comments SODIUM (BEAKER) 135 meq/L 136-145 L (test code = 381) POTASSIUM (BEAKER) 4.0 meq/L 3.5-5.1 (test code = 379) CHLORIDE (BEAKER) 103 meq/L 98-107 (test code = 382) CO2 (BEAKER) (test 24 meq/L 22-29 code = 355) BLOOD UREA NITROGEN 11 mg/dL 7-21 (BEAKER) (test code = 354) CREATININE (BEAKER) 1.02 mg/dL 0.57-1.25 (test code = 358) GLUCOSE RANDOM 253 mg/dL 70-105 H (BEAKER) (test code = 652) CALCIUM (BEAKER) 9.1 mg/dL 8.4-10.2 (test code = 697) EGFR (BEAKER) (test 54 mL/min/1.73 ESTIMA OLIVER GFR IS code = 1092) sq m NOT ACCURATE CREATININE CLEARANCE IN PREDICTING GLOMERULAR FILTRATION RATE . ESTIMATED GFR I S NOT APPLICABLE FOR DIALYSIS PATIEN TS. CBC W/PLT COUNT & AUTO [id number] 04:40:00 Test Item Value Reference Range Interpretation Comments WHITE BLOOD CELL COUNT (BEAKER) 6.2 K/ L 3.5-10.5 (test code = 775) RED BLOOD CELL COUNT (BEAKER) 3.64 M/ L 3.93-5.22 L (test code = 761) HEMOGLOBIN (BEAKER) (test code = 9.9 GM/DL 11.2-15.7 L 410) HEMATOCRIT (BEAKER) (test code = 32.0 % 34.1-44.9 L 411) MEAN CORPUSCULAR VOLUME (BEAKER) 87.9 fL 79.4-94.8 (test code = 753) MEAN CORPUSCULAR HEMOGLOBIN 27.2 pg 25.6-32.2 (BEAKER) (test code = 751) MEAN CORPUSCULAR HEMOGLOBIN CONC 30.9 GM/DL 32.2-35.5 L (BEAKER) (test code = 752) RED CELL DISTRIBUTION WIDTH 14.7 % 11.7-14.4 H (BEAKER) (test code = 412) PLATELET COUNT (BEAKER) (test 286 K/CU MM 150-450 code = 756) MEAN PLATELET VOLUME (BEAKER) 10.0 fL 9.4-12.3 (test code = 754) NUCLEATED RED BLOOD CELLS 0 /100 WBC 0-0 (BEAKER) (test code = 413) NEUTROPHILS RELATIVE PERCENT 67 % (BEAKER) (test code = 429) LYMPHOCYTES RELATIVE PERCENT 17 % (BEAKER) (test code = 430) MONOCYTES RELATIVE PERCENT 10 % (BEAKER) (test code = 431) EOSINOPHILS RELATIVE PERCENT 5 % (BEAKER) (test code = 432) BASOPHILS RELATIVE PERCENT 1 % (BEAKER) (test code = 437) NEUTROPHILS ABSOLUTE COUNT 4.18 K/ L 1.56-6.13 (BEAKER) (test code = 670) LYMPHOCYTES ABSOLUTE COUNT 1.06 K/ L 1.18-3.74 L (BEAKER) (test code = 414) MONOCYTES ABSOLUTE COUNT (BEAKER) 0.61 K/ L 0.24-0.36 H (test code = 415) EOSINOPHILS ABSOLUTE COUNT 0.33 K/ L 0.04-0.36 (BEAKER) (test code = 416) BASOPHILS ABSOLUTE COUNT (BEAKER) 0.04 K/ L 0.01-0.08 (test code = 417) IMMATURE GRANULOCYTES-RELATIVE 0 % 0-1 PERCENT (BEAKER) (test code = 3191) POCT-GLUCOSE [id number] 21:37:00 Test Item Value Reference Range Interpretation Comments POC-GLUCOSE METER 271 mg/dL 70-110 H TESTED AT [facility] 67 [facility] (test code = [place] [facility] 1538) [address] POCT-GLUCOSE [id number] 17:40:00 Test Item Value Reference Range Interpretation Comments POC-GLUCOSE METER 273 mg/dL 70-110 H TESTED AT [place] [address] ([facility]) (test code = [place] [facility] 1538) [address] POCT-GLUCOSE [id number] 12:52:00 Test Item Value Reference Range Interpretation Comments POC-GLUCOSE METER 303 mg/dL 70-110 H TESTED AT [place] [address] ([facility]) (test code = [place] [facility] 1538) [address] POCT-GLUCOSE [id number] 08:44:00 Test Item Value Reference Range Interpretation Comments POC-GLUCOSE METER 306 mg/dL 70-110 H Notified R Jose FELIX[facility]TESTED [facility] (test code = AT [address] 1538) [facility] [address] [id number] 04:53:00 Test Item Value Reference Range Interpretation Comments PHOSPHORUS (BEAKER) (test code = 4.0 mg/dL 2.3-4.7 604) [id number] 04:53:00 Test Item Value Reference Range Interpretation Comments MAGNESIUM (BEAKER) (test code = 1.7 mg/dL 1.6-2.6 627) BASIC METABOLIC [id number] 04:53:00 Test Item Value Reference Range Interpretation Comments SODIUM (BEAKER) 135 meq/L 136-145 L (test code = 381) POTASSIUM (BEAKER) 3.7 meq/L 3.5-5.1 (test code = 379) CHLORIDE (BEAKER) 101 meq/L 98-107 (test code = 382) CO2 (BEAKER) (test 27 meq/L 22-29 code = 355) BLOOD UREA NITROGEN 10 mg/dL 7-21 (BEAKER) (test code = 354) CREATININE (BEAKER) 1.02 mg/dL 0.57-1.25 (test code = 358) GLUCOSE RANDOM 239 mg/dL 70-105 H (BEAKER) (test code = 652) CALCIUM (BEAKER) 8.9 mg/dL 8.4-10.2 (test code = 697) EGFR (BEAKER) (test 54 mL/min/1.73 ESTIMA OLIVER GFR IS code = 1092) sq m NOT ACCURATE CREATININE CLEARANCE IN PREDICTING GLOMERULAR FILTRATION RATE . ESTIMATED GFR I S NOT APPLICABLE FOR DIALYSIS PATIEN TS. CBC W/PLT COUNT & AUTO [id number] 04:38:00 Test Item Value Reference Range Interpretation Comments WHITE BLOOD CELL COUNT (BEAKER) 6.2 K/ L 3.5-10.5 (test code = 775) RED BLOOD CELL COUNT (BEAKER) 3.57 M/ L 3.93-5.22 L (test code = 761) HEMOGLOBIN (BEAKER) (test code = 9.8 GM/DL 11.2-15.7 L 410) HEMATOCRIT (BEAKER) (test code = 31.4 % 34.1-44.9 L 411) MEAN CORPUSCULAR VOLUME (BEAKER) 88.0 fL 79.4-94.8 (test code = 753) MEAN CORPUSCULAR HEMOGLOBIN 27.5 pg 25.6-32.2 (BEAKER) (test code = 751) MEAN CORPUSCULAR HEMOGLOBIN CONC 31.2 GM/DL 32.2-35.5 L (BEAKER) (test code = 752) RED CELL DISTRIBUTION WIDTH 15.0 % 11.7-14.4 H (BEAKER) (test code = 412) PLATELET COUNT (BEAKER) (test 284 K/CU MM 150-450 code = 756) MEAN PLATELET VOLUME (BEAKER) 10.1 fL 9.4-12.3 (test code = 754) NUCLEATED RED BLOOD CELLS 0 /100 WBC 0-0 (BEAKER) (test code = 413) NEUTROPHILS RELATIVE PERCENT 69 % (BEAKER) (test code = 429) LYMPHOCYTES RELATIVE PERCENT 15 % (BEAKER) (test code = 430) MONOCYTES RELATIVE PERCENT 9 % (BEAKER) (test code = 431) EOSINOPHILS RELATIVE PERCENT 6 % (BEAKER) (test code = 432) BASOPHILS RELATIVE PERCENT 1 % (BEAKER) (test code = 437) NEUTROPHILS ABSOLUTE COUNT 4.29 K/ L 1.56-6.13 (BEAKER) (test code = 670) LYMPHOCYTES ABSOLUTE COUNT 0.93 K/ L 1.18-3.74 L (BEAKER) (test code = 414) MONOCYTES ABSOLUTE COUNT (BEAKER) 0.57 K/ L 0.24-0.36 H (test code = 415) EOSINOPHILS ABSOLUTE COUNT 0.34 K/ L 0.04-0.36 (BEAKER) (test code = 416) BASOPHILS ABSOLUTE COUNT (BEAKER) 0.04 K/ L 0.01-0.08 (test code = 417) IMMATURE GRANULOCYTES-RELATIVE 0 % 0-1 PERCENT (BEAKER) (test code = 2801) POCT-GLUCOSE [id number] 21:24:00 Test Item Value Reference Range Interpretation Comments POC-GLUCOSE METER 307 mg/dL 70-110 H Notified Belia Adams MD/TESTED ([facility]) (test code = AT [place] [address]) [place] [address] POCT-GLUCOSE [id number] 17:52:00 Test Item Value Reference Range Interpretation Comments POC-GLUCOSE METER 224 mg/dL 70-110 H TESTED AT [place] [address] ([facility]) (test code = [place] [id number]) [address] POCT-GLUCOSE [id number] 12:46:00 Test Item Value Reference Range Interpretation Comments POC-GLUCOSE METER 250 mg/dL 70-110 H TESTED AT [place] [address] ([facility]) (test code = [place] [id number]) [address] POCT-GLUCOSE [id number] 08:44:00 Test Item Value Reference Range Interpretation Comments POC-GLUCOSE METER 319 mg/dL 70-110 H Notified Belia Adams MD/TESTED ([facility]) (test code = [place] [address]) [place] [address] [id number] 05:35:00 Test Item Value Reference Range Interpretation Comments PHOSPHORUS (BEAKER) (test code = 3.8 mg/dL 2.3-4.7 604) [id number] 05:35:00 Test Item Value Reference Range Interpretation Comments MAGNESIUM (BEAKER) (test code = 1.8 mg/dL 1.6-2.6 627) BASIC METABOLIC [id number] 05:35:00 Test Item Value Reference Range Interpretation Comments SODIUM (BEAKER) 137 meq/L 136-145 (test code = 381) POTASSIUM (BEAKER) 4.0 meq/L 3.5-5.1 (test code = 379) CHLORIDE (BEAKER) 103 meq/L 98-107 (test code = 382) CO2 (BEAKER) (test 27 meq/L 22-29 code = 355) BLOOD UREA NITROGEN 9 mg/dL 7-21 (BEAKER) (test code = 354) CREATININE (BEAKER) 1.06 mg/dL 0.57-1.25 (test code = 358) GLUCOSE RANDOM 272 mg/dL 70-105 H (BEAKER) (test code = 652) CALCIUM (BEAKER) 8.9 mg/dL 8.4-10.2 (test code = 697) EGFR (BEAKER) (test 51 mL/min/1.73 ESTIMA OLIVER GFR IS code = 1092) sq m NOT ACCURATE CREATININE CLEARANCE IN PREDICTING GLOMERULAR FILTRATION RATE . ESTIMATED GFR I S NOT APPLICABLE FOR DIALYSIS PATIEN TS. CBC W/PLT COUNT & AUTO [id number] 04:52:00 Test Item Value Reference Range Interpretation Comments WHITE BLOOD CELL COUNT (BEAKER) 5.8 K/ L 3.5-10.5 (test code = 775) RED BLOOD CELL COUNT (BEAKER) 3.53 M/ L 3.93-5.22 L (test code = 761) HEMOGLOBIN (BEAKER) (test code = 9.6 GM/DL 11.2-15.7 L 410) HEMATOCRIT (BEAKER) (test code = 31.3 % 34.1-44.9 L 411) MEAN CORPUSCULAR VOLUME (BEAKER) 88.7 fL 79.4-94.8 (test code = 753) MEAN CORPUSCULAR HEMOGLOBIN 27.2 pg 25.6-32.2 (BEAKER) (test code = 751) MEAN CORPUSCULAR HEMOGLOBIN CONC 30.7 GM/DL 32.2-35.5 L (BEAKER) (test code = 752) RED CELL DISTRIBUTION WIDTH 15.4 % 11.7-14.4 H (BEAKER) (test code = 412) PLATELET COUNT (BEAKER) (test 281 K/CU MM 150-450 code = 756) MEAN PLATELET VOLUME (BEAKER) 9.8 fL 9.4-12.3 (test code = 754) NUCLEATED RED BLOOD CELLS 0 /100 WBC 0-0 (BEAKER) (test code = 413) NEUTROPHILS RELATIVE PERCENT 66 % (BEAKER) (test code = 429) LYMPHOCYTES RELATIVE PERCENT 16 % (BEAKER) (test code = 430) MONOCYTES RELATIVE PERCENT 11 % (BEAKER) (test code = 431) EOSINOPHILS RELATIVE PERCENT 5 % (BEAKER) (test code = 432) BASOPHILS RELATIVE PERCENT 1 % (BEAKER) (test code = 437) NEUTROPHILS ABSOLUTE COUNT 3.82 K/ L 1.56-6.13 (BEAKER) (test code = 670) LYMPHOCYTES ABSOLUTE COUNT 0.95 K/ L 1.18-3.74 L (BEAKER) (test code = 414) MONOCYTES ABSOLUTE COUNT (BEAKER) 0.64 K/ L 0.24-0.36 H (test code = 415) EOSINOPHILS ABSOLUTE COUNT 0.31 K/ L 0.04-0.36 (BEAKER) (test code = 416) BASOPHILS ABSOLUTE COUNT (BEAKER) 0.06 K/ L 0.01-0.08 (test code = 417) IMMATURE GRANULOCYTES-RELATIVE 0 % 0-1 PERCENT (BEAKER) (test code = 2801) POCT-GLUCOSE [id number] 21:33:00 Test Item Value Reference Range Interpretation Comments POC-GLUCOSE METER 195 mg/dL 70-110 H TESTED AT [facility] 6720 [facility] (test code = [place] [facility] 1538) [address] POCT-GLUCOSE [id number] 20:09:00 Test Item Value Reference Range Interpretation Comments POC-GLUCOSE METER 268 mg/dL 70-110 H TESTED AT [place] [address] ([facility] (test code = [place] [facility] 1538) [address] POCT-GLUCOSE [id number] 17:13:00 Test Item Value Reference Range Interpretation Comments POC-GLUCOSE METER 400 mg/dL 70-110 HH TESTED AT [facility] 6720 ([facility] (test code = [place] [facility] 1538) [address] POCT-GLUCOSE [id number] 10:55:00 Test Item Value Reference Range Interpretation Comments POC-GLUCOSE METER 216 mg/dL 70-110 H TESTED AT [facility] 6720 ([facility] (test code = [place] [facility] 1538) [address] POCT-GLUCOSE [id number] 07:07:00 Test Item Value Reference Range Interpretation Comments POC-GLUCOSE METER 240 mg/dL 70-110 H TESTED AT [facility] 6720 (BEAKER) (test code = [place] 1538) [address] POCT-GLUCOSE [id number] 06:13:00 Test Item Value Reference Range Interpretation Comments POC-GLUCOSE METER 249 mg/dL 70-110 H TESTED AT [facility] 6720 (BEAKER) (test code = [place] 1538) [address] [id number] 05:36:00 Test Item Value Reference Range Interpretation Comments PHOSPHORUS (BEAKER) (test code = 3.5 mg/dL 2.3-4.7 604) [id number] 05:36:00 Test Item Value Reference Range Interpretation Comments MAGNESIUM (BEAKER) (test code = 1.7 mg/dL 1.6-2.6 627) BASIC METABOLIC [id number] 05:36:00 Test Item Value Reference Range Interpretation Comments SODIUM (BEAKER) 138 meq/L 136-145 (test code = 381) POTASSIUM (BEAKER) 3.8 meq/L 3.5-5.1 (test code = 379) CHLORIDE (BEAKER) 103 meq/L 98-107 (test code = 382) CO2 (BEAKER) (test 25 meq/L 22-29 code = 355) BLOOD UREA NITROGEN 8 mg/dL 7-21 (BEAKER) (test code = 354) CREATININE (BEAKER) 0.98 mg/dL 0.57-1.25 (test code = 358) GLUCOSE RANDOM 218 mg/dL 70-105 H (BEAKER) (test code = 652) CALCIUM (BEAKER) 8.9 mg/dL 8.4-10.2 (test code = 697) EGFR (BEAKER) (test 56 mL/min/1.73 ESTIMA OLIVER GFR IS code = 1092) sq m NOT ACCURATE CREATININE CLEARANCE IN PREDICTING GLOMERULAR FILTRATION RATE . ESTIMATED GFR I S NOT APPLICABLE FOR DIALYSIS PATIEN TS. CBC W/PLT COUNT & AUTO [id number] 05:19:00 Test Item Value Reference Range Interpretation Comments WHITE BLOOD CELL COUNT (BEAKER) 6.7 K/ L 3.5-10.5 (test code = 775) RED BLOOD CELL COUNT (BEAKER) 3.66 M/ L 3.93-5.22 L (test code = 761) HEMOGLOBIN (BEAKER) (test code = 10.0 GM/DL 11.2-15.7 L 410) HEMATOCRIT (BEAKER) (test code = 32.3 % 34.1-44.9 L 411) MEAN CORPUSCULAR VOLUME (BEAKER) 88.3 fL 79.4-94.8 (test code = 753) MEAN CORPUSCULAR HEMOGLOBIN 27.3 pg 25.6-32.2 (BEAKER) (test code = 751) MEAN CORPUSCULAR HEMOGLOBIN CONC 31.0 GM/DL 32.2-35.5 L (BEAKER) (test code = 752) RED CELL DISTRIBUTION WIDTH 15.9 % 11.7-14.4 H (BEAKER) (test code = 412) PLATELET COUNT (BEAKER) (test 329 K/CU MM 150-450 code = 756) MEAN PLATELET VOLUME (BEAKER) 10.1 fL 9.4-12.3 (test code = 754) NUCLEATED RED BLOOD CELLS 0 /100 WBC 0-0 (BEAKER) (test code = 413) NEUTROPHILS RELATIVE PERCENT 68 % (BEAKER) (test code = 429) LYMPHOCYTES RELATIVE PERCENT 17 % (BEAKER) (test code = 430) MONOCYTES RELATIVE PERCENT 10 % (BEAKER) (test code = 431) EOSINOPHILS RELATIVE PERCENT 4 % (BEAKER) (test code = 432) BASOPHILS RELATIVE PERCENT 1 % (BEAKER) (test code = 437) NEUTROPHILS ABSOLUTE COUNT 4.55 K/ L 1.56-6.13 (BEAKER) (test code = 670) LYMPHOCYTES ABSOLUTE COUNT 1.12 K/ L 1.18-3.74 L (BEAKER) (test code = 414) MONOCYTES ABSOLUTE COUNT (BEAKER) 0.67 K/ L 0.24-0.36 H (test code = 415) EOSINOPHILS ABSOLUTE COUNT 0.29 K/ L 0.04-0.36 (BEAKER) (test code = 416) BASOPHILS ABSOLUTE COUNT (BEAKER) 0.06 K/ L 0.01-0.08 (test code = 417) IMMATURE GRANULOCYTES-RELATIVE 0 % 0-1 PERCENT (BEAKER) (test code = 2801) COMPREHENSIVE METABOLIC [id number] 23:04:00 Test Item Value Reference Range Interpretation Comments TOTAL PROTEIN 5.7 gm/dL 6.0-8.3 L (BEAKER) (test code = 770) ALBUMIN (BEAKER) 3.4 g/dL 3.5-5.0 L (test code = 1145) ALKALINE PHOSPHATASE 76 U/L 40-150 (BEAKER) (test code = 346) BILIRUBIN TOTAL 0.7 mg/dL 0.2-1.2 (BEAKER) (test code = 377) SODIUM (BEAKER) (test 136 meq/L 136-145 code = 381) POTASSIUM (BEAKER) 3.9 meq/L 3.5-5.1 (test code = 379) CHLORIDE (BEAKER) 103 meq/L 98-107 (test code = 382) CO2 (BEAKER) (test 25 meq/L 22-29 code = 355) BLOOD UREA NITROGEN 9 mg/dL 7-21 (BEAKER) (test code = 354) CREATININE (BEAKER) 0.91 mg/dL 0.57-1.25 (test code = 358) GLUCOSE RANDOM 147 mg/dL 70-105 H (BEAKER) (test code = 652) CALCIUM (BEAKER) 8.8 mg/dL 8.4-10.2 (test code = 697) AST (SGOT) (BEAKER) 24 U/L 5-34 (test code = 353) ALT (SGPT) (BEAKER) 23 U/L 6-55 (test code = 347) EGFR (BEAKER) (test 61 mL/min/1.73 ESTIMA OLIVER GFR IS code = 1092) sq m NOT ACCURATE CREATININE CLEARANCE IN PREDICTING GLOMERULAR FILTRATION RATE . ESTIMATED GFR I S NOT APPLICABLE FOR DIALYSIS PATIEN TS. PROTHROMBIN [id number] 22:57:00 Test Item Value Reference Range Interpretation Comments PROTIME (BEAKER) (test code = 14.1 seconds 11.7-14.7 759) INR (BEAKER) (test code = 370) 1.1 <=5.9 RECOMMENDED COUMADIN/WARFARIN INR THERAPY RANGESSTANDARD DOSE: 2.0 - 3.0 Includes: PROPHYLAXIS forvenous thrombosis, systemic embolization; TREATMENT for venous thrombosis and/or pulmonary embolus.HIGH RISK: Target INR is 2.5-3.5 for patients with mechanical heart valves.CBC W/PLT COUNT & AUTO DIFFERENTIAL 2016-10-22 22:51:00 Test Item Value Reference Range Interpretation Comments WHITE BLOOD CELL COUNT (BEAKER) 6.0 K/ L 3.5-10.5 (test code = 775) RED BLOOD CELL COUNT (BEAKER) 3.42 M/ L 3.93-5.22 L (test code = 761) HEMOGLOBIN (BEAKER) (test code = 9.4 GM/DL 11.2-15.7 L 410) HEMATOCRIT (BEAKER) (test code = 30.0 % 34.1-44.9 L 411) MEAN CORPUSCULAR VOLUME (BEAKER) 87.7 fL 79.4-94.8 (test code = 753) MEAN CORPUSCULAR HEMOGLOBIN 27.5 pg 25.6-32.2 (BEAKER) (test code = 751) MEAN CORPUSCULAR HEMOGLOBIN CONC 31.3 GM/DL 32.2-35.5 L (BEAKER) (test code = 752) RED CELL DISTRIBUTION WIDTH 15.9 % 11.7-14.4 H (BEAKER) (test code = 412) PLATELET COUNT (BEAKER) (test 297 K/CU MM 150-450 code = 756) MEAN PLATELET VOLUME (BEAKER) 9.5 fL 9.4-12.3 (test code = 754) NUCLEATED RED BLOOD CELLS 0 /100 WBC 0-0 (BEAKER) (test code = 413) NEUTROPHILS RELATIVE PERCENT 65 % (BEAKER) (test code = 429) LYMPHOCYTES RELATIVE PERCENT 19 % (BEAKER) (test code = 430) MONOCYTES RELATIVE PERCENT 12 % (BEAKER) (test code = 431) EOSINOPHILS RELATIVE PERCENT 4 % (BEAKER) (test code = 432) BASOPHILS RELATIVE PERCENT 1 % (BEAKER) (test code = 437) NEUTROPHILS ABSOLUTE COUNT 3.90 K/ L 1.56-6.13 (BEAKER) (test code = 670) LYMPHOCYTES ABSOLUTE COUNT 1.12 K/ L 1.18-3.74 L (BEAKER) (test code = 414) MONOCYTES ABSOLUTE COUNT (BEAKER) 0.71 K/ L 0.24-0.36 H (test code = 415) EOSINOPHILS ABSOLUTE COUNT 0.25 K/ L 0.04-0.36 (BEAKER) (test code = 416) BASOPHILS ABSOLUTE COUNT (BEAKER) 0.04 K/ L 0.01-0.08 (test code = 417) IMMATURE GRANULOCYTES-RELATIVE 0 % 0-1 PERCENT (BIN) (test code = 2801)
--- NOTE | 2021-04-09 11:54 | RAD REPORT ---
EXAM DESCRIPTION: RAD - Chest Single View - 04/09/2021 11:26 am CLINICAL HISTORY: COUGH COMPARISON: Portable 06/17/2017 TECHNIQUE: AP portable chest image was obtained 04/09/2021 11:26 am . FINDINGS: Lungs are clear. Interstitial pattern matches comparison. Neurostimulator wires are seen i n the midthoracic spine level. Heart and vasculature are normal. No measurable pleural effusion and n o pneumothorax. No acute bony abnormality seen. No acute aortic findings suspected. IMPRESSION: No acute cardiopulmonary process. No significant change from comparison study.
[2021-04-09 12:34] LABS: SARS-COV-2 RT PCR POSITIVE (NEGATIVE)
--- NOTE | 2021-04-09 12:52 | EDPHYS ---
Physician Documentation [facility] Name: Sia Salazar Age: 75 yrs Sex: Female : 1945 Arrival Date: 04/09/2021 Time: 10:08 Bed 5 Private MD: Isra Rondon ED Physician Lai Dumont HPI: 04/09 11:00 This 75 yrs old Female presents to ER via Wheelchair with complaints of joint pain. rn 11:00 Patient reports feeling ill for 2 weeks. Reports started with cough and congestion but rn those symptoms have improved. States now feeling generalized weakness and fatigue with lightheadedness and myalgia and joint pain. Overall feels like is getting better just the joint and muscle aches are getting to her. Patient has continued to work this entire time and is not requiring any oxygen. Family member is also experiencing similar symptoms and they live together. Has not been able to get tested for COVID during this illness.. Onset: The symptoms/episode began/occurred 2 week(s) ago. Severity of symptoms: At their worst the symptoms were moderate in the emergency department the symptoms have improved. The patient has not experienced similar symptoms in the past. The patient has not recently seen a physician. Historical: - Allergies: 10:37 Actos; jl7 10:37 Bactrim; jl7 10:37 Clindamycin; jl7 10:37 Codeine; jl7 10:37 Crestor; jl7 10:37 Darvocet-N 100; jl7 10:37 Erythromycin; jl7 10:37 Glimepiride; jl7 10:37 Glipizide; jl7 10:37 Iodinated Contrast Media - IV Dye; jl7 10:37 Januvia; jl7 10:37 Lipitor; jl7 10:37 metformin; jl7 10:37 Morphine; jl7 10:37 PENICILLINS; jl7 10:37 Sulfa (Sulfonamide Antibiotics); jl7 10:37 Wellbutrin; jl7 - PMHx: 10:37 angiodysplasia; bowel AVMs; bronchospastic airway disease; celiac artery stenosis; jl7 Cerebrovascular disease; chronic mesenteric ischemia; chronic pulmonary embolism; COPD; Depression; Diabetes - IDDM; GERD; ibs; ischemic bowel disease; peripheral artery disease; SBO; - PSHx: 10:37 Cholecystectomy; Tonsillectomy; Coronary artery bypass graft; jl7 - Immunization history:: Client reports receiving the 2nd dose of the Covid vaccine, Moderna and the booster. - Social history:: Smoking status: Patient reports the use of cigarette tobacco products, smokes one-half pack cigarettes per day. - Family history:: not pertinent. - Hospitalizations: : No recent hospitalization is reported. ROS: 11:00 Constitutional: Negative for fever, chills, and weight loss, Eyes: Negative for injury, rn pain, redness, and discharge, Neck: Negative for injury, pain, and swelling, Cardiovascular: Negative for chest pain, palpitations, and edema, Respiratory: Positive for cough, negative for shortness of breath Abdomen/GI: Negative for abdominal pain, nausea, vomiting, diarrhea, and constipation, Back: Negative for injury and pain, : Negative for injury, bleeding, discharge, and swelling, MS/Extremity: Negative for injury and deformity, Skin: Negative for injury, rash, and discoloration, Neuro: Positive for headache and generalized weakness Exam: 11:00 Constitutional: This is a well developed, well nourished patient who is awake, alert, rn and in no acute distress. Head/Face: Normocephalic, atraumatic. Eyes: Periorbital areas with no swelling, redness, or edema. ENT: No stridor, moist mucous membranes Neck: Trachea midline, no masses palpated, and no cervical lymphadenopathy. Supple, full range of motion without nuchal rigidity, or vertebral point tenderness. No Meningismus. Cardiovascular: Regular rate and rhythm. No pulse deficits. Respiratory: No increased work of breathing, no retractions or nasal flaring. Abdomen/GI: Soft, non-tender Skin: Warm, dry with normal turgor. Normal color with no rashes, no lesions, and no evidence of cellulitis. MS/ Extremity: Pulses equal, no cyanosis. Neurovascular intact. Full, normal range of motion. Equal circumference. Neuro: Awake and alert, GCS 15, oriented to person, place, time, and situation. Cranial nerves II-XII grossly intact. Motor strength 5/5 in all extremities. Sensory grossly intact. Cerebellar exam normal. Vital Signs: 10:34 BP 136 / 62; Pulse 98; Resp 17; Temp 97.9; Pulse Ox 99% on R/A; Weight 64.41 kg; Height jl7 5 ft. 2 in. (157.48 cm); Pain 7/10; 13:05 BP 137 / 71; Pulse 85; Resp 17; Temp 97.9; Pulse Ox 99% ; bp 10:34 Body Mass Index 25.97 (64.41 kg, 157.48 cm) jl7 MDM: 10:46 Patient medically screened. rn 12:51 Differential Diagnosis COVID. Data reviewed: vital signs, nurses notes, lab test rn result(s), radiologic studies, plain films, and as a result, I will discharge patient. Data interpreted: Pulse oximetry: on room air is 99 %. Interpretation: normal. Counseling: I had a detailed discussion with the patient and/or guardian regarding: the historical points, exam findings, and any diagnostic results supporting the discharge/admit diagnosis, lab results, radiology results, the need for outpatient follow up, to return to the emergency department if symptoms worsen or persist or if there are any questions or concerns that arise at home. Special discussion: I discussed with the patient/guardian in detail that at this point there is no indication for admission to the hospital. It is understood, however, that if the symptoms persist or worsen the patient needs to return immediately for re-evaluation. 04/09 10:58 Order name: COVID-19/FLU A+B (Document "Date of Onset" if Symptomatic) rn 04/09 10:59 Order name: COVID-19/FLU A+B EDCT 04/09 10:58 Order name: XRAY Chest (1 view); Complete Time: 11:55 rn Administered Medications: No medications were administered Disposition Summary: 04/09/21 12:51 Discharge Ordered Location: Home rn Problem: an ongoing problem rn Symptoms: have improved rn Condition: Stable rn Diagnosis - SARS-associated coronavirus as the cause of diseases classified elsewhere rn - Myalgia rn Followup: rn - With: Private Physician - When: As needed - Reason: Recheck today's complaints, Re-evaluation by your physician Discharge Instructions: - Discharge Summary Sheet rn - COVID-19 rn - 10 Things You Can Do to Manage Your COVID-19 Symptoms at Home - [facility] rn - Viral Illness, Adult rn - Prevent the Spread of COVID-19 if You Are Sick - [facility] rn Forms: - Medication Reconciliation Form rn - Thank You Letter rn - Antibiotic cross tie turner - Prescription Opioid Use rn Signatures: Dispatcher [employer] Lai Barber MD MD rn Leal, Jahala, RN RN jl7
--- NOTE | 2021-04-09 12:52 | ER ---
Nurse's Notes [facility] Name: Sia Salazar Age: 75 yrs Sex: Female : 1945 Arrival Date: 04/09/2021 Time: 10:08 Bed 5 Private MD: Isra Rondon Diagnosis: SARS-associated coronavirus as the cause of diseases classified elsewhere;Myalgia Presentation: 04/09 10:34 Chief complaint: Patient states: Joint and muscle pain x 1 week, felt light headed in jl7 the shower this morning, unable to get a Covid test in the last 2 weeks. Intermittent generalized weakness all over. Coronavirus screen: muscle pain. Ebola Screen: No symptoms or risks identified at this time. Initial Sepsis Screen: Does the patient meet any 2 criteria? No. Patient's initial sepsis screen is negative. Does the patient have a suspected source of infection? No. Patient's initial sepsis screen is negative. Risk Assessment: Do you want to hurt yourself or someone else? Patient reports no desire to harm self or others. Onset of symptoms is unknown. 10:34 Method Of Arrival: Wheelchair jl7 10:34 Acuity: GREGG 3 jl7 Triage Assessment: 10:37 General: Appears in no apparent distress. uncomfortable, Behavior is calm, cooperative, jl7 appropriate for age. Pain: Complains of pain in all over Pain currently is 7 out of 10 on a pain scale. Historical: - Allergies: 10:37 Actos; jl7 10:37 Bactrim; jl7 10:37 Clindamycin; jl7 10:37 Codeine; jl7 10:37 Crestor; jl7 10:37 Darvocet-N 100; jl7 10:37 Erythromycin; jl7 10:37 Glimepiride; jl7 10:37 Glipizide; jl7 10:37 Iodinated Contrast Media - IV Dye; jl7 10:37 Januvia; jl7 10:37 Lipitor; jl7 10:37 metformin; jl7 10:37 Morphine; jl7 10:37 PENICILLINS; jl7 10:37 Sulfa (Sulfonamide Antibiotics); jl7 10:37 Wellbutrin; jl7 - PMHx: 10:37 angiodysplasia; bowel AVMs; bronchospastic airway disease; celiac artery stenosis; jl7 Cerebrovascular disease; chronic mesenteric ischemia; chronic pulmonary embolism; COPD; Depression; Diabetes - IDDM; GERD; ibs; ischemic bowel disease; peripheral artery disease; SBO; - PSHx: 10:37 Cholecystectomy; Tonsillectomy; Coronary artery bypass graft; jl7 - Immunization history:: Client reports receiving the 2nd dose of the Covid vaccine, Moderna and the booster. - Social history:: Smoking status: Patient reports the use of cigarette tobacco products, smokes one-half pack cigarettes per day. - Family history:: not pertinent. - Hospitalizations: : No recent hospitalization is reported. Screenin:45 Abuse screen: Denies threats or abuse. Denies injuries from another. Nutritional bp screening: No deficits noted. Tuberculosis screening: No symptoms or risk factors identified. Fall Risk None identified. Assessment: 10:45 General: SEE TRIAGE NOTE. bp 13:05 Reassessment: PT D/C HOME VIA W/C WITH FAMILY, DX WITH SARS-COVID. bp Vital Signs: 10:34 BP 136 / 62; Pulse 98; Resp 17; Temp 97.9; Pulse Ox 99% on R/A; Weight 64.41 kg; Height jl7 5 ft. 2 in. (157.48 cm); Pain 7/10; 13:05 BP 137 / 71; Pulse 85; Resp 17; Temp 97.9; Pulse Ox 99% ; bp 10:34 Body Mass Index 25.97 (64.41 kg, 157.48 cm) jl7 ED Course: 10:08 Patient arrived in ED. am2 10:08 Isra Rondon DO is Private Physician. am2 10:37 Triage completed. jl7 10:37 Arm band placed on right wrist. jl7 10:45 Patient has correct armband on for positive identification. Bed in low position. Call bp light in reach. Side rails up X2. Adult w/ patient. 10:46 Lai Dumont MD is Attending Physician. rn 11:01 Jean-Claude Red, PITER is Primary Nurse. bp 11:26 XRAY Chest (1 view) In Process Unspecified. EDMS 11:32 COVID-19/FLU A+B (Document "Date of Onset" if Symptomatic) Sent. bp 13:05 No provider procedures requiring assistance completed. Patient did not have IV access bp during this emergency room visit. Administered Medications: No medications were administered Outcome: 12:51 Discharge ordered by . rn 13:05 Discharged to home via wheelchair, with family. bp 13:05 Condition: stable 13:05 Discharge instructions given to patient, family, Instructed on discharge instructions, follow up and referral plans. Demonstrated understanding of instructions, follow-up care. 13:06 Patient left the ED. bp Signatures: Dispatcher [employer] EDMS Lai Dumont MD MD rn Leal, Jahala RN RN jl7 Morena Taylor Brian, RN RN bp
[2021-04-09 13:17] VITALS: TEMP 97.9; O2SAT 99
[2021-04-09 13:18] VITALS: BP 137/71
== END 2021-04-09 13:06 | disposition home or self-care (01) ==
LOC: ER 10:07
DX: U07.1 COVID-19 (principal); J44.9 Chronic obstructive pulmonary disease, unspecified; E11.9 Type 2 diabetes mellitus without complications; F17.210 Nicotine dependence, cigarettes, uncomplicated; Z95.1 Presence of aortocoronary bypass graft; Z88.0 Allergy status to penicillin; Z88.2 Allergy status to sulfonamides; Z88.5 Allergy status to narcotic agent; Z88.8 Allergy status to other drugs, medicaments and biological substances
CPT/HCPCS: 0240U; 71045; 99283

== ENCOUNTER 2021-08-03 19:59 | Emergency (ER) | payer MEDICARE ==
--- OUTSIDE RECORDS SUMMARY | 2021-08-03 20:05 | XMS REPORT | Continuity of Care Document ---
:1945 Author Organization [facility] t Address [address] [place] [address] [place] [address] Care Team Providers Name Role Phone ANENE Primary Care Physician Unavailable Gerald Rondon Attending Clinician Unavailable Aravind FELIX Attending Clinician JIMENEZ Attending Clinician Unavailable SD Attending Clinician Unavailable Sd GREGORY Attending Clinician Milton Daniels MD Attending Clinician Doctor Unassigned, Name [...] Type Policy Number Effective Date Expiration Date Figueroa MALCOLM [id number] 2020 2021 CLASSIC/VALUE 00:00:00 00:00:00 [facility] [employer] [id number] 2021 (MEDICARE 00:00:00 REPLACEMENT HMO) Problems Condition Condition Condition Status Onset Resolution Last Treating Co mments Source Name Details Category Date Date Treatment Clinician Date Calcium Calcium Disease Active NPI:183 oxalate oxalate 12-04 5271525 crystals crystals 00:00: in urine in urine 00 Abdominal Abdominal Disease Active NPI :183 wall wall 3-14 8835194 hernia hernia 00:00: 00 Anxiety Anxiety Disease Active NPI:183 disorder, disorder, 1-14 1318 781 unspecifie unspecifie 00:00: d type d type 00 PAD PAD Disease Active NPI:183 (periphera (periphera 10-16 13 62126 l artery l artery 00:00: disease) disease) 00 Stress-ind Stress-ind Disease Active N PI:183 uced uced 10-16 4886325 cardiomyop cardiomyop 00:00: athy athy 00 Venous Venous Disease Active NPI:183 insufficie insufficie 10-16 13 91615 ncy ncy 00:00: 00 Chronic Chronic Disease Active 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 NPI:183 systolic systolic 2 705653 1 heart heart 00:00: failure failure 00 Chronic Chronic Disease Active 2018-03 NPI:183 obstructiv obstructiv 2 13 79117 e e 00:00: pulmonary pulmonary 00 disease, disease, unspecifie unspecifie d COPD d COPD type type Arterioven Arterioven Disease Active N PI:183 ous ous 12-13 2322486 malformati malformati 00:00: on (AVM) on (AVM) 00 Coronary Coronary Disease Active NPI:1 83 artery artery 12-13 0348588 disease disease 00:00: involving involving [place] coronary coronary artery artery Diabetes Diabetes Disease Active Overview: TRANSPORTATION DEPARTMENT HEAD I:183 mellitus mellitus 12-13 Formattin 131 8781 00:00: g of this 00 note might be different from the original. Overview: Type II Essential Essential Disease Active NPI :183 hypertensi hypertensi 12-13 13 89468 on on 00:00: 00 Microcytic Microcytic Disease Active N PI:183 anemia anemia 12-13 7708583 00:00: 00 Severe Severe Disease Active NPI:183 sepsis sepsis 8-30 0878624 00:00: 00 Anemia due Anemia due Disease Active N PI:183 to acute to acute 10-27 729374 1 blood loss blood loss 00:00: 00 Upper GI Upper GI Disease Active NPI:1 83 bleed bleed 10-23 5854943 00:00: 00 DSU- Diagnosis Active 2017-02-10 Mem oria HEMATOCHEZ 10-01 16:16:00 l [place] R19.5, DSU- 00:00: [place] FATIGUE HEMATOCHEZ 00 R53.83, [place] R19.5, FATIGUE R53.83, Active 10/01/2016 [facility] Obesity Obesity Disease Active NPI:183 (BMI (BMI 09-02 6694777 30-39.9) 30-39.9) 00:00: 00 SBO (small SBO (small Disease Active N PI:183 bowel bowel 09-01 3241026 obstructio obstructio 00:00: n) n) 00 F/U Diagnosis Active 2016-10-01 Mem oria 07-02 10:31:00 l F/U 00:00: Nader 00 Active 07/02/2016 [facility] CONSULT Diagnosis Active 2016-07-02 Me moria 208 11:37:00 l CONSULT 00:00: [place] 00 Active 05/06/2016 [facility] Depression Depression Disease Active N PI:241 8496366 Anemia Problem Resolve 2016-10-04 Jim maya (disorder) d 00:05:00 l Anemia [place] (disorder) Resolved Problem 10/04/2016 [facility] Anxiety Problem Resolve 2016-10-04 Mem oria (finding) d 00:05:00 l Anxiety [place] (finding) Resolved Problem 10/04/2016 [facility] Congenital Problem Resolve 2016-10-04 Memoria arterioven d 00:05:00 l ous Nader malformati Congenital on arterioven (disorder) ous malformati on (disorder) Resolved Problem 10/04/2016 [facility] Gallbladde Problem Resolve 2016-10-04 Memoria r calculus d 00:05:00 l (disorder) Gilbert n Gallbladde r calculus (disorder) Resolved Problem 10/04/2016 [facility] Gastrointe Problem Resolve 2016-10-04 Memoria stinal d 00:05:00 l hemorrhage Gilbert n (disorder) Gastrointe stinal hemorrhage (disorder) Resolved Problem 10/04/2016 [facility] Gout Problem Resolve 2016-10-04 Jim maya (disorder) d 00:05:00 l Gout Nader (disorder) Resolved Problem 10/04/2016 [facility] History of Problem Resolve 2016-10-04 Memoria - TIA d 00:05:00 l (context-d History Her [place] ependent of - TIA category) (context-d ependent category) Resolved Problem 10/04/2016 [facility] Asthma Problem Resolve 2016-10-04 Jim maya (disorder) d 00:05:00 l Asthma [place] (disorder) Resolved Problem 10/04/2016 [facility] Arthritis Problem Resolve 2016-10-04 M emoria (disorder) d 00:05:00 l Nader Arthritis (disorder) Resolved Problem 10/04/2016 [facility] Peripheral Problem Resolve 2016-10-04 Memoria vascular d 00:05:00 l disease [place] (disorder) Peripheral vascular disease (disorder) Resolved Problem 10/04/2016 [facility] Polyp of Problem Resolve 2016-10-04 Me moria colon d 00:05:00 l (disorder) Polyp of He rmann colon (disorder) Resolved Problem 10/04/2016 [facility] ENCNTR FOR Diagnosis Active 2016-10-01 Memoria GENERAL 10:31:00 l ADULT ENCNTR [place] MEDICAL FOR EXAM W/ GENERAL ADULT MEDICAL EXAM W/ Active [facility] OTHER Diagnosis Active 2017-02-10 Mem oria FECAL 16:16:00 l ABNORMALIT OTHER Elisa nn IES FECAL ABNORMALIT IES Active [facility] Allergies, Adverse Reactions, Alerts Allergy Allergy Status Severity Reaction(s) Onset Inactive Treating Comm ents Source Name Type Date Date Clinician HYDROXYZ DRUG Active Hives 2019-03 NPI:183 INE INGREDI 0-12 4349180 00:00: 00 Hydroxyz Propensi Active Hives 2019-03 NPI:18 3 ine ty to 0-12 5767543 adverse 00:00: reaction 00 s METRONID DRUG Active High Hives 2018-03 NPI:183 AZOLE INGREDI 0-15 1304081 00:00: 00 Metronid Drug Active Hives 2018-03 NPI:183 azole Allergy 0-15 0122376 00:00: 00 PROPOXYP DRUG Active High Anaphylaxis NPI :183 HENE 10-22 8243086 N-ACETAM 00:00: INOPHEN 00 BUPROPIO DRUG Active Other-Cmnt NPI: 183 N HCL INGREDI 10-22 4765423 00:00: 00 PIOGLITA DRUG Active Unknown-Cmnt TRANSPORTATION DEPARTMENT HEAD I:183 ZONE INGREDI 10-22 6004931 00:00: 00 TRIMETHO DRUG Active Unknown-Cmnt TRANSPORTATION DEPARTMENT HEAD I:183 PRIM INGREDI 10-22 2623505 00:00: 00 Bupropio Propensi Active Other - See N PI:183 n Hcl ty to comments 10-22 1924844 adverse 00:00: reaction 00 s Pioglita Propensi Active Unknown - NPI :183 zone ty to See comments 10-22 4648 781 adverse 00:00: reaction 00 s Propoxyp Propensi Active Anaphylaxis N PI:183 hene ty to 10-22 6582530 N-Acetam adverse 00:00: inophen reaction 00 s Trimetho Propensi Active Unknown - NPI :183 prim ty to See comments 10-22 4913 781 adverse 00:00: reaction 00 s PIOGLITA DRUG Active Hives NPI:183 ZONE HCL INGREDI 09-01 1084585 00:00: 00 CLINDAMY DRUG Active ITCHING NPI:183 FABIÁN INGREDI - 9956776 00:00: 00 ROSUVAST DRUG Active ITCHING NPI:183 ATIN INGREDI - 0001455 CALCIUM 00:00: 00 ERYTHROM DRUG Active Other-Cmnt NPI: 183 YCIN 06 6299819 00:00: 00 GLIMEPIR DRUG Active Hives NPI:183 ADRIAN INGREDI 09-01 4426022 00:00: 00 IODINE DRUG Active Hives NPI:183 INGREDI 09-01 2335905 00:00: 00 SITAGLIP DRUG Active Other-Cmnt NPI: 183 TIN INGREDI 09-01 4424149 00:00: 00 ATORVAST DRUG Active Other-Cmnt NPI: 183 ATIN INGREDI 06 1297776 00:00: 00 PENICILL DRUG Active Swelling NPI:18 3 IN INGREDI 09-01 4043835 00:00: 00 SULFA Drug Active Hives NPI:183 (SULFONA Class 09-018781 MIDE 00:00: ANTIBIOT 00 ICS) SULFAMET DRUG Active Hives NPI:183 HOXAZOLE INGREDI 09-01 8857234 00:00: 00 BUPROPIO DRUG Active Hives NPI:183 N INGREDI 09-018781 00:00: 00 CODEINE DRUG Active Low ITCHING NPI:183 INGREDI 09-01 1382558 00:00: 00 MORPHINE DRUG Active Low ITCHING NPI:183 INGREDI 09-01 0996977 00:00: 00 Pioglita Propensi Active Hives NPI:18 3 zone Hcl ty to 09-01 0952288 adverse 00:00: reaction 00 s Clindamy Propensi Active Itching NPI:1 83 fabián ty to 09-018781 adverse 00:00: reaction 00 s Codeine Propensi Active Itching NPI:18 3 ty to 09-01 9113252 adverse 00:00: reaction 00 s to drug Rosuvast Propensi Active Itching NPI:1 83 atin ty to 09-018781 Calcium adverse 00:00: reaction 00 s Erythrom Propensi Active Other - See N PI:183 ycin ty to comments 09-018781 adverse 00:00: reaction 00 s Glimepir Propensi Active Hives NPI:18 3 adrian ty to 09-018781 adverse 00:00: reaction 00 s Iodine Propensi Active Hives IV NPI:183 ty to 09-01 contrast [id number] adverse 00:00: only. As reaction 00 of s 09/01/16, has not previousl y used oral contrast. Sitaglip Propensi Active Other - See N PI:183 tin ty to comments 09-018781 adverse 00:00: reaction 00 s Atorvast Propensi Active Other - See N PI:183 atin ty to comments 09-018781 adverse 00:00: reaction 00 s Morphine Propensi Active Itching NPI:1 83 ty to 09-018781 adverse 00:00: reaction 00 s to drug Penicill Propensi Active Swelling NPI: 183 in ty to 09-01 adverse 00:00: reaction 00 s Sulfa Propensi Active Hives NPI:183 (Sulfona ty to 09-01 mide adverse 00:00: Antibiot reaction 00 ics) s Sulfamet Propensi Active Hives NPI:18 3 hoxazole ty to 09-01 adverse 00:00: reaction 00 s Bupropio Propensi Active Hives NPI:18 3 n ty to 09-01 adverse 00:00: reaction 00 s Lipitor Lipitor Active Memoria l Nader metFORMI metFORMI Active Memori a N N l Nader morphine morphine Active Memori a l [place] penicill Adverse Active Info Not NPI:1 74 in Reaction Available 21609 79 codeine Adverse Active Info Not NPI:17 4 Reaction Available 53407 79 Sulfa Adverse Active Info Not NPI:174 Reaction Available 76872 79 MORPHINE Adverse Active Info Not NPI:1 74 Reaction Available 40818 79 penicill penicill Active Memori a ins ins l [place] sulfa sulfa Active Memoria drugs drugs l [place] Wellbutr Wellbutr Active Memori a in in l Nader Bactrim Bactrim Active Memoria l [place] Bandaids Bandaids Active Memori a l [place] clindamy clindamy Active Memori a fabián fabián l [place] codeine codeine Active Memoria l [place] Crestor Crestor Active Memoria l [place] Darvocet Darvocet Active Memori a -N 50 -N 50 l Nader erythrom erythrom Active Memori a ycin ycin l [place] glimepir glimepir Active Memori a adrian adrian l [place] glipiZID glipiZID Active Memori a E E l [place] iodine iodine Active Memoria l [place] Januvia Januvia Active Memoria l Nader Social History Social Habit Start Date Stop Date Quantity Comments Source Exposure to Not sure NPI:[id number] 1 SARS-CoV-2 (event) History SDOH NPI:[id number] 81 Alcohol Frequency History SDOH NPI:[id number] 81 Alcohol Std Drinks History SDOH NPI:[id number] 81 Alcohol Binge History of tobacco Cigarette Smoker use Alcohol intake 2021-02-07 2021-02-07 .14 /d NPI:[id number] 00:00:00 00:00:00 Alcohol Comment 2019-01-06 2019-01-06 1 glass of wine 00:00:00 00:00:00 every few months Cigarettes smoked 2019-01-06 2019-01-06 NPI:811 [id number] current (pack per 00:00:00 00:00:00 day) - Reported Cigarette 2019-01-06 2019-01-06 pack-years 00:00:00 00:00:00 Tobacco use and 2019-01-06 2019-01-06 Never used NPI:56871 04224 exposure 00:00:00 00:00:00 Tobacco Comment 2016-09-02 2016-09-02 quit in 2014 NPI:476 [id number] 00:00:00 00:00:00 Social History 2016-07-02 2016-07-02 [facility] 15:44:33 15:44:33 Sex [birth year] NPI:[id number] 00:00:00 00:00:00 Smoking Status Start Date Stop Date Source Current every day smoker 2019-01-06 00:00:00 NPI :[id number] Medications Ordered Filled Start Stop Current Ordering Indication Dosage Frequency Signature Comments Components Source Medication Medication Date Date Medication? Clinician (SIG) Name Name ascorbic 2020-03 Yes 500mg Take 500 NPI: 183 acid, 2-14 mg by [id number] vitamin C, 16:37: mouth 500 mg 13 daily. tablet aspirin 81 2020-03 Yes 81mg Take 81 mg N PI:183 mg EC 2-14 by mouth [id number] tablet 16:37: daily. 13 Cholecalcif 2020-03 Yes Take by TRANSPORTATION DEPARTMENT HEAD I:183 mechelle, 2-14 mouth [id number] Vitamin D3, 16:37: daily. 1,000 unit 13 capsule Magnesium 2020-03 Yes Take by NPI: 183 Oxide 500 2-14 mouth [id number] mg Tab 16:37: daily. 13 insulin 2020-03 Yes Inject as NPI: 183 regular, 2-14 directed [id number] human 16:37: as needed. (NOVOLIN R 13 INJECTION) zinc 2020-03 Yes Take by NPI:183 sulfate 2-14 mouth. [id number] (ZINC-15 16:37: ORAL) 13 citalopram 2020-03 Yes 20mg Take 20 mg N PI:183 20 mg 2-14 by mouth [id number] tablet 16:37: daily. 13 metoprolol 2020-03 Yes [id number] 25mg Take 1 NPI:183 succinate 1-[place] [id number] 81 XL 25 mg 24 00:00: mouth hr tablet 00 daily. Ferrous Yes [id number] 1{tbl} Take 1 N PI:183 Fumarate 9-10 tablet by [id number] 1 324 mg (106 00:00: mouth 2 mg iron) 00 (two) Tab times daily. insulin NPH Yes [id number] 8U inject 8 NPI:183 and regular 9-08 Units [id number] human 70-30 00:00: under the (NOVOLIN 00 skin 2 70/30 U-100 (two) INSULIN) times 100 unit/mL daily (70-30) before injection breakfast and dinner. SERTraline Yes [id number] 100mg Take 1 NPI:183 100 mg 9-06 tablet by [id number] tablet 00:00: mouth 00 daily. albuterol Yes [id number] 2{puff} Inhale 2 NPI:183 90 9-02 Puffs [id number] mcg/actuati 00:00: every 6 on inhaler 00 (six) hours as needed for Wheezing or Shortness of Breath. gabapentin Yes [id number] 200mg Take 2 NPI:183 100 mg 7-20 capsules [id number] capsule 00:00: by mouth 00 every evening. Methylcellu Yes [id number] 17g Take 17 g NPI:183 lose, with 1-27 by mouth 79399 81 Sugar, 00:00: daily. (CITRUCEL, 00 SUCROSE,) powder Belsomra Belsomra Yes Pricila 1 tablet NPI:174 7-24 Millender at bedtime 0485 879 00:00: as needed 00 BusPIRone BusPIRone Yes Pricila 1 tablet NPI:174 HCl HCl 6-10 Mill[place] as needed 81190 79 00:00: for 00 anxiety Trazodone Trazodone Yes Pricila 1/2 to 1 NPI:174 HCl HCl 6-10 [place] [address] 79 00:00: bedtime as 00 needed for sleep Ventolin Ventolin Yes Pricila 2 puffs as NPI:174 HFA HFA 3-19 Mill[place] needed for 0485 879 00:00: sob/wheezi 00 ng GoLYTELY Yes 240 mL, Memori a oral powder 7-06 PO, l for 16:28: Q10Min, [place] reconstitut 00 Give jug ion for Colonoscop y, # 1 ea, 0 Refill(s), Pharmacy: [facility] 527 Octreotide Yes See Memoria 0.2 MG/ML 07-02 Instructio l Injectable 20:01: ns, 200 Herm kun Solution 00 microgram [Sandostati IM left n] gluteal muscle, # 1 box, 0 Refill(s), given to patient, Pt brought her own supply 200 ACTUAT Yes 2 puff, Jim maya Albuterol 4-06 INHALATION l 0.09 15:52: , Q4H, 0 Nader MG/ACTUAT 00 Refill(s) Dry Powder Inhaler ascorbic Yes 500 mg = 1 Mem oria acid 500 mg 4-06 tab, PO, l oral tablet 15:52: Daily, 0 He rmann 00 Refill(s) Lorazepam Yes 0.5 mg = 1 Me moria 0.5 MG Oral 4-06 tab, PO, l Tablet 15:52: TID, 0 [place] [Ativan] 00 Refill(s) SandoSTATIN Yes IM, q4wk, M emoria [place] 406 0 l 15:52: Refill(s) [place] 00 Docusate Yes 100 mg = 1 Mem oria Sodium 100 4-06 cap, PO, l MG Oral 15:52: BID, 0 [place] Capsule 00 Refill(s) [Colace] NovoLIN Yes SUB-Q, 0 Memori a 70/30 4-06 Refill(s) l 15:52: [place] 00 Metformin 0 Yes 1,000 mg = Me moria hydrochlori 4-06 1 tab, PO, l de 1000 MG 15:52: BID, 0 Elisa nn Oral Tablet 00 Refill(s) gabapentin 2017 Yes 300 mg = 1 M emoria 300 MG Oral 4-06 cap, PO, l Capsule 15:52: BID, # 90 Elisa nn 00 cap, 1 Refill(s) Famotidine 2017 Yes 20 mg = 1 Me moria 20 MG Oral 4-06 tab, PO, l Tablet 15:52: BID, # 6 Nader 00 tab, 0 Refill(s) Ondansetron 2017 Yes 4 mg = 1 Me moria 4 MG Oral 4-06 tab, PO, l Tablet 15:52: Q8H, 0 [place] [Zofran] 00 Refill(s) clopidogrel 2017 Yes 75 mg = 1 M emoria 75 MG Oral 4-06 tab, PO, l Tablet 15:52: Daily, 0 Nader [Plavix] 00 Refill(s) amitriptyli 2017 Yes 10 [...] 0 Elisa nn [Zocor] 00 Refill(s) cholecalcif 2017 Yes 1,000 Memor ia mechelle 1000 4-06 IntlUnit = l intl units 15:52: 1 cap, PO, H ermann oral 00 Daily, 0 capsule Refill(s) Furosemide 2017 Yes 20 mg = 1 Me moria 20 MG Oral 4-06 tab, PO, l Tablet 15:52: Daily, 0 Nader [Lasix] 00 Refill(s) Insulin, 2017 Yes SUB-Q, Memoria Aspart, 4-06 TID-Before l Human 100 15:52: Meals, 0 Herm kun UNT/ML 00 Refill(s) Injectable Solution [NovoLog] Buspar Yes 15 mg, PO, Memor ia 4- BID, 0 l 15:52: Refill(s) Nader Citalopram Yes 40 mg = 1 Me moria 40 MG Oral 4-06 tab, PO, l Tablet 15:52: Daily, 0 [place] [Celexa] 00 Refill(s) aspirin 81 Yes 81 mg = 1 Me moria mg tablet, - tab, PO, l enteric 15:52: Daily, # Gilbert n coated 00 90 tab, 3 Refill(s) Vitamin B Yes 1 tab, PO, Me moria Complex 4- Daily, 0 l oral tablet 15:52: Refill(s) H ermann Fluticasone Yes INHALATION Memoria propionate 07-02 , BID, 0 l 0.05 15:52: Refill(s) Nader MG/ACTUAT 00 Dry Powder Inhaler Miralax Yes 17 gm, PO, Jim maya 07-02 Daily, 0 l 15:52: Refill(s) Nader 00 magnesium Yes 500 mg = 1 Me moria oxide 500 - tab, PO, l mg oral 15:52: Daily, 0 Gilbert n tablet 00 Refill(s) Tylenol Yes 500 mg, Memoria -06 PO, 0 l 15:52: Refill(s) [place] 00 Citalopram Citalopram Yes Pricila 1 tablet NPI:174 Hydrobromid Hydrobromid Millender 2735158 e e Vitamin D Vitamin D Yes Pricila 1 tablet NPI:174 Millender 4169929 Metformin Metformin Yes Pricila 1 tablet NPI:174 HCl HCl Millender with a 9443695 meal Vitamin C Vitamin C Yes Pricila as NPI: 174 [place] directed 787415 9 Aspirin Aspirin Yes Pricila 1 tablet NPI: 174 Adult Low Adult Low Millender [id number] Strength Strength Gabapentin Gabapentin Yes Pricila 2 capsules NPI:174 [place] 8040652 Vitamin B Vitamin B Yes Pricila as NPI: 174 Complex Complex Millender directed 0436351 Immunizations Ordered Immunization Filled Immunization Date Status Commen ts Source Name Name SARS-COV-2 COVID-19 2020-11-15 Completed NPI:1 [id number] MODERNA VACCINE 00:00:00 SARS-COV-2 COVID-19 2020-06-03 Completed NPI:1 [id number] MODERNA VACCINE 00:00:00 SARS-COV-2 COVID-19 2020-05-06 Completed NPI:1 [id number] MODERNA VACCINE 00:00:00 Influenza High Dose 2020-01-11 Completed NPI:1 [id number] Quad 00:00:00 Influenza High Dose 2019-01-20 Completed NPI:1 [id number] 00:00:00 Pneumococcal 2019-01-20 Completed NPI:[id number] Polysaccharide, 00:00:00 PPSV23 (PNEUMOVAX) Pneumococcal 2016-12-11 Completed NPI:[id number] 81 Polysaccharide, 00:00:00 PPSV23 (PNEUMOVAX) Vital Signs Vital Name Observation Time Observation Value Comments Source Systolic blood 2021-03-11 22:37:00 113 mm[Hg] NPI:18 [id number] pressure Diastolic blood 2021-03-11 22:37:00 47 mm[Hg] NPI:1 [id number] pressure Heart rate 2021-03-11 22:37:00 82 /min NPI:1831 [id number] Body height 2021-03-11 22:37:00 160 cm NPI:1831 [id number] Body weight 2021-03-11 22:37:00 65.772 kg NPI:183 [id number] BMI 2021-03-11 22:37:00 25.69 kg/m2 NPI:1831 [id number] Weight 2016-10-01 15:38:[address] [facility] Nader BMI Calculated 2016-10-01 15:38:00 Penny Garcia Height 2016-10-01 15:38:00 160.02 cm Liliya Doe Respitory Rate 2016-10-01 15:38:00 Penny Garcia Heart Rate 2016-10-01 15:38:00 Liliya Doe Systolic (mm Hg) 2016-10-01 15:38:00 Jim rial Nader Diastolic (mm Hg) 2016-10-01 15:38:00 Mem galilea [place] Height 2016-07-02 15:24:00 160.02 cm [facility] [place] Respitory Rate 2016-07-02 15:24:00 Penny Steeleann Heart Rate 2016-07-02 15:24:00 Liliya Doe BMI Calculated 2016-07-02 15:24:00 Penny peguero Nader Weight 2016-07-02 15:24:00 [facility] Nader Systolic (mm Hg) 2016-07-02 15:24:00 Jim sanchez [place] Diastolic (mm Hg) 2016-07-02 15:24:00 Rosa orial [place] Procedures Procedure Date / Time Performed Performing Clinician Sourc e Colonoscopy [facility] Endoscopy of GI tract [facility] Encounters Start End Encounter Admission Attending Care Care Encounter Source Date/Time Date/Time Type Type Clinicians Facility Department ID 2021-06-09 Outpatient Rondon, STLMLC STLC [id number] NPI:174 10:56:01 Isra [id number] 2021-05-28 Outpatient Rondon, STLMLC STLC [id number] NPI:174 08:20:00 Isra [id number] 2021-05-22 Outpatient Rondon, STLMLC STLC [id number] NPI:174 15:37:00 Isra [id number] 2021-04-23 Outpatient Rondon, STLMLC STLC [id number] NPI:174 14:32:51 Isra [id number] 2021-04-23 Outpatient Rondon, STLMLC STLC [id number] NPI:174 14:27:21 Isra [id number] 2021-04-23 Outpatient Rondon, STLMLC STLC [id number] NPI:174 14:26:14 Isra [id number] 2021-04-23 Outpatient Rondon, STLMLC STLC [id number] NPI:174 14:26:02 Isra [id number] 2021-04-23 Outpatient Rondon, STLMLC STLC [id number] NPI:174 14:25:31 Isra [id number] 2021-04-23 Outpatient Rondon, STLMLC STLMLC [id number] NPI:174 14:24:42 [facility] [id number] 2021-04-23 Outpatient Rondon, STLMLC STLMLC [id number] NPI:174 14:24:14 [facility] 74063 [id number] 2021-04-23 Outpatient Rondon, STLMLC STLMLC [id number] NPI:174 14:22:04 [facility] [id number] 2021-04-23 Outpatient STLMLC STLMLC [id number] NPI:174 14:04:07 [id number] 2021-04-23 Outpatient STLMLC STLMLC [id number] NPI:174 13:57:01 [id number] 2021-04-23 Outpatient STLMLC STLMLC [id number] NPI:174 13:54:56 [id number] 2021-04-23 Outpatient STLMLC STLMLC [id number] NPI:174 13:49:08 [id number] 2021-04-23 Outpatient STLMLC STLMLC [id number] NPI:174 12:36:47 [id number] 2021-04-23 Outpatient STLMLC STLMLC [id number] NPI:174 12:20:24 [id number] 2021-07-30 2021-07-30 ambulatory STLMLC STLMLC [id number] NPI:174 00:00:00 00:00:00 [id number] 2021-07-30 2021-07-30 ambulatory STLMLC STLMLC [id number] NPI:174 00:00:00 00:00:00 [id number] 2021-07-30 2021-07-30 ambulatory STLMLC STLMLC [id number] NPI:174 00:00:00 00:00:00 [id number] 2021-05-27 2021-05-27 ambulatory STLMLC STLMLC [id number] NPI:174 00:00:00 00:00:00 [id number] 2021-05-09 2021-05-09 ambulatory STLMLC STLMLC [id number] NPI:174 00:00:00 00:00:00 [id number] 2021-05-08 2021-05-08 ambulatory STLMLC STLMLC [id number] NPI:174 00:00:00 00:00:00 [id number] 2021-04-23 2021-04-23 ambulatory STLMLC STLMLC [id number] NPI:174 00:00:00 00:00:00 [id number] 2021-04-11 2021-04-11 ambulatory STLMLC STLMLC [id number] NPI:174 00:00:00 00:00:00 [id number] 2021-04-11 2021-04-11 ambulatory STLMLC STLMLC [id number] NPI:174 00:00:00 00:00:00 [id number] 2021-04-09 2021-04-09 ambulatory STLMLC STLMLC [id number] NPI:174 00:00:00 00:00:00 [id number] 2021-04-07 2021-04-07 ambulatory STLMLC STLMLC [id number] NPI:174 00:00:00 00:00:00 [id number] 2021-03-14 2021-03-14 ambulatory STLMLC STLMLC [id number] NPI:174 00:00:00 00:00:00 [id number] 2021-03-14 2021-03-14 ambulatory STLMLC STLMLC [id number] NPI:174 00:00:00 00:00:00 [id number] 2021-03-11 2021-03-11 [facility] [id number] NPI:183 15:15:00 17:38:47 Visit [facility] [id number] [facility] [id number] 2021-02-07 2021-02-07 Outpatient Belia GAONA [facility] [id number] NPI:183 09:20:00 09:31:58 HAMLET [id number] 2021-02-01 2021-02-01 Outpatient DMG DMG [id number] [facility] 11:01:00 11:01:00 1106 [facility] 2020-12-11 2020-12-11 Outpatient STLMLC STLMLC [id number] NPI:174 00:00:00 00:00:00 [id number] 2020-04-11 2020-04-11 [id number] NPI:183 13:30:00 16:02:08 [place] [id number] 2020-03-27 2020[facility]03-[id number] 00:00:00 00:00:00 [facility] [id number] [place] [id number] Professio [id number] nal [address] 2020-03-26 2020-03-26 [place] [facility] [id number] 00:00:00 00:00:00 [facility] [id number] [facility] [id number] Professio [phone] nal [facility] 2020-03-25 2020-03-25 [place] [facility] [id number] 00:00:00 00:00:00 [facility] [id number] [facility] [id number] Professio [phone] nal 044 Office [facility] 2020-03-01 2020-03-01 Orders Doctor THOMAS [id number] 00:00:00 00:00:00 Only Unassigned, JULIUS 350.1.13.10 [place] [facility] 4.2.7.2.686 [id number] [id number] 2020-02-29 2020-02-29 Patient Doctor [facility] [id number] 00:00:00 00:00:00 Secure Msg Unassigned, Health 350.1.13.10 [place] [facility] 4.2.7.2.686 Professio [phone] n[facility] Office Building One 2020-02-26 2020-02-26 [place] [facility] [id number] 00:00:00 00:00:00 [facility] 350.1.13.10 [place] 4.2.7.2.686 Professio [phone] nal 044 Office Building One 2020-02-01 2020-02-01 Telephone [facility] 1.2.840.114 [id number] 00:00:00 00:00:00 [facility] [id number] [facility] [place] 4.2.7.2.686 Professio [phone] [place] [address] Office [facility] One 2020-01-31 2020-01-31 Orders Doctor THOMAS 1.2.840.114 [id number] 00:00:00 00:00:00 Only Unassigned, JULIUS 350.1.13.10 [facility] 4.2.7.2.686 [id number] [id number] 2020-01-23 2020-01-23 Orders Doctor THOMAS 1.2.840.114 [id number] 00:00:00 00:00:00 Only Unassigned, JULIUS 350.1.13.10 [facility] [phone] 009 2020-01-09 2020-01-09 [facility] 1.2.840.114 [id number] 00:00:00 00:00:00 [facility] [id number] [place] [facility] [place] 4.2.7.2.686 Professio [phone] [address] One 2020-01-08 2020-01-08 Urgent [facility] [id number] 16:10:58 16:30:58 Care [facility] 350.1.13.10 [facility] [place] 4.2.7.2.686 Professio [phone] [place] [address] Office [facility] One 2019-11-29 2019-11-29 Orders Doctor GUZMAN 1.2.840.114 [id number] 00:00:00 00:00:00 Only Unassigned, JULIUS 350.1.13.10 [facility] 4.2.7.2.686 [phone] [id number] 2019-11-17 2019-11-18 Office [facility] 1.2.840.114 [id number] 08:28:10 17:49:23 Visit Lidia Juarez 350.1.13.10 [place] 4.2.7.2.686 Professio [phone] [address] 2018-12-07 2018-12-07 [facility] [id number] NPI:174 08:19:00 08:19:[address] Medicine 2018-12-06 2018-12-06 [facility] [id number] NPI:174 10:40:00 10:40:[address] Medicine 2018-11-22 2018-11-22 [facility] 27 [id number] NPI:174 09:02:00 09:02:[address] Medicine 2018-11-18 2018-11-18 [facility] 27 [id number] NPI:174 09:05:00 09:05:[address] 2018-11-10 2018-11-10 [facility]patient [facility] 26 [id number] NPI:174 16:00:00 16:00:[address] Medicine 2018-10-19 2018-10-19 [facility] 26 [id number] NPI:174 14:30:00 14:30:[address] 2018-06-14 2018-06-14 [facility] 24 [id number] NPI:174 08:32:00 08:32:[address] Medicine 2018-06-07 2018-06-07 Outpatient Madhavi [facility] [id number] NPI:174 13:45:00 13:45:[address] Medicine 2016-10-01 2016-10-02 [facility]patient [facility] [id number] Mem[place] 15:22:00 04:59:00 r Nader 01 l [place] [facility] 2016-07-02 2016-07-03 [facility] 4626 [id number] [facility] 15:08:00 04:59:00 r Nader 00 l [place] Results Test Description Test Time Test Comments Results Result Comments Source POCT-GLUCOSE METER 2016-12-16 08:26:00 Test Item Value Reference Range Interpretation Comme nts POC-GLUCOSE METER (BEAKER) (test 175 mg/dL 70-110 H TESTED AT [facility] [address] code = 1538) [place] [address] [id number] 07:30:00 Test Item Value Reference Range Interpretation Comments MAGNESIUM (BEAKER) 1.8 mg/dL 1.6-2.6 Specimen slightly (test code = 627) hemolyzed [id number] 07:30:00 Test Item Value Reference Range Interpretation Comments PHOSPHORUS (BEAKER) 3.2 mg/dL 2.3-4.7 Specimen slightly (test code = 604) hemolyzed BASIC METABOLIC [id number] 07:30:00 Test Item Value Reference Range Interpretation [...] PATIEN TS. CBC W/PLT COUNT & AUTO [id number] 06:50:00 Test Item Value Reference Range Interpretation [...] PERCENT (BEAKER) (test code = 2801) POCT-GLUCOSE [id number] 21:15:00 Test Item Value Reference Range Interpretation Comments POC-GLUCOSE METER 246 mg/dL 70-110 H TESTED AT [facility] 6720 (BEAKER) (test code = [place] 1538) [address] POCT-GLUCOSE [id number] 17:16:00 Test Item Value Reference Range Interpretation Comments POC-GLUCOSE METER 323 mg/dL 70-110 H TESTED AT [facility] 6720 (BEAKER) (test code = [place] 1538) [address] POCT-GLUCOSE [id number] 13:13:00 Test Item Value Reference Range Interpretation Comments POC-GLUCOSE METER 250 mg/dL 70-110 H TESTED AT [facility] 6720 (BEAKER) (test code = [place] 1538) [address] POCT-GLUCOSE [id number] 08:26:00 Test Item Value Reference Range Interpretation Comments POC-GLUCOSE METER 261 mg/dL 70-110 H TESTED AT [facility] 6720 (BEAKER) (test code = [facility] 1538) [address] CALCIUM, [id number] 06:39:00 Test Item Value Reference Range Interpretation Comments CALCIUM IONIZED (BEAKER) (test 1.08 mmol/L 1.12-1.27 L code = 698) PH, BLOOD (BEAKER) (test code = 7.47 1810) [id number] 05:53:00 Test Item Value Reference Range Interpretation Comments PHOSPHORUS (BEAKER) (test code = 4.1 mg/dL 2.3-4.7 604) [id number] 05:53:00 Test Item Value Reference Range Interpretation Comments MAGNESIUM (BEAKER) (test code = 1.7 mg/dL 1.6-2.6 627) BASIC METABOLIC [id number] 05:53:00 Test Item Value Reference Range Interpretation [...] PATIEN TS. CBC W/PLT COUNT & AUTO [id number] 05:32:00 Test Item Value Reference Range Interpretation [...] EOSINOPHILS ABSOLUTE COUNT 0.35 K/ L 0.04-0.36 ([facility]) (test code = 416) BASOPHILS ABSOLUTE COUNT ([facility]) 0.07 K/ L 0.01-0.08 (test code = 417) IMMATURE GRANULOCYTES-RELATIVE 0 % 0-1 PERCENT ([facility]) (test code = 2801) POCT-GLUCOSE [id number] 22:58:00 Test Item Value Reference Range Interpretation Comments POC-GLUCOSE METER 390 mg/dL 70-110 H Notified R N or MD ([facility]) (test code = [place]o val[place]uela [facility] 1538) test/TESTED AT [address] [address] POCT-GLUCOSE [id number] 21:18:00 Test Item Value Reference Range Interpretation Comments POC-GLUCOSE METER 404 mg/dL 70-110 HH Notified R N MD/TESTED ([facility]) (test code = AT [address] 1538) [facility] 7703 0 POCT-GLUCOSE [id number] 17:45:00 Test Item Value Reference Range Interpretation Comments POC-GLUCOSE METER 217 mg/dL 70-110 H TESTED AT [place] [address] ([facility]) (test code = GIRISH Celaya [facility] 1538) [address] POCT-GLUCOSE [id number] 12:07:00 Test Item Value Reference Range Interpretation Comments POC-GLUCOSE METER 209 mg/dL 70-110 H TESTED AT [place] [address] ([facility]) (test code = GIR[place]aya [facility] 1538) [address] HEMOGLOBIN [id number] 07:58:00 Test Item Value Reference Range Interpretation Comments HEMOGLOBIN A1C ([facility]) (test code = 5.8 % 4.3-6.1 368) TSH/FREE T4 IF [id number] 05:30:00 Test Item Value Reference Range Interpretation Comments THYROID STIMULATING HORMONE 1.75 uIU/mL 0.35-4.94 ([facility]) (test code = 772) POCT-GLUCOSE [id number] 05:21:00 Test Item Value Reference Range Interpretation Comments POC-GLUCOSE METER 213 mg/dL 70-110 H TESTED AT [place] [address] ([facility]) (test code = [place] 1538) [address] [id number] 05:11:00 Test Item Value Reference Range Interpretation Comments PHOSPHORUS (BEAKER) (test code = 4.0 mg/dL 2.3-4.7 604) [id number] 05:11:00 Test Item Value Reference Range Interpretation Comments MAGNESIUM (BEAKER) (test code = 1.7 mg/dL 1.6-2.6 627) BASIC METABOLIC [id number] 05:11:00 Test Item Value Reference Range Interpretation [...] NOT APPLICABLE FOR DIALYSIS PATIEN TS. LIPID [id number] 05:11:00 Test Item Value Reference Range Interpretation [...] Very High >=190CBC W/PLT COUNT & AUTO [id number] 04:48:00 Test Item Value Reference Range Interpretation [...] (test code = 416) BASOPHILS ABSOLUTE COUNT (AKER) 0.08 K/ L 0.01-0.08 (test code = 417) IMMATURE GRANULOCYTES-RELATIVE 0 % 0-1 PERCENT (BEAKER) (test code = 2801) CALCIUM, [id number] 04:13:00 Test Item Value Reference Range Interpretation Comments [facility] (test 1.15 mmol/L 1.12-1.27 code = 698) PH, BLOOD ([facility]) (test code = 7.47 1810) POCT-GLUCOSE [id number] 21:03:00 Test Item Value Reference Range Interpretation Comments POC-GLUCOSE METER 220 mg/dL 70-110 H TESTED AT [place] [address] ([facility]) (test code = [facility] 1538) [address] IRON, TIBC, % SAT. (WITHOUT FERRITIN)2016-12-13 19:01:00 Test Item Value Reference Range Interpretation Comments [facility]ON [facility] (test code = 547) 23 ug/dL 40-160 L TOTAL IRON BINDING CAPACITY 404 ug/dL 250-450 (BEAKER) (test code = 769) IRON % SATURATION (2) ([facility]) 6 % 20-55 L (test code = 2590) POCT-GLUCOSE [id number] 17:23:00 Test Item Value Reference Range Interpretation Comments POC-GLUCOSE METER 371 mg/dL 70-110 H TESTED AT [place] [address] ([facility]) (test code = [facility] 1538) [address] POCT-GLUCOSE [id number] 05:33:00 Test Item Value Reference Range Interpretation Comments POC-GLUCOSE METER 227 mg/dL 70-110 H TESTED AT [address] ([facility]) (test code [address] [facility] [place] = 1538) [address] POCT-GLUCOSE [id number] 20:59:00 Test Item Value Reference Range Interpretation Comments POC-GLUCOSE METER 266 mg/dL 70-110 H TESTED AT [address] ([facility]) (test code [address] [facility] [place] = 1538) [address] POCT-GLUCOSE [id number] 20:58:00 Test Item Value Reference Range Interpretation Comments POC-GLUCOSE METER 300 mg/dL 70-110 H TESTED AT [address] ([facility]) (test code [address] [facility] [place] = 1538) [address] POCT-GLUCOSE [id number] 20:58:00 Test Item Value Reference Range Interpretation Comments POC-GLUCOSE METER 177 mg/dL 70-110 H TESTED AT [address] ([facility]) (test code [address] [facility] [place] = 1538) [address] HEMORRHAGE IMAGING, [id number] 13:30:00FINAL REPORT PROCEDURE: HEMORRHAGE STUDY with RBCs CPT CODE: 63647 INDICATION: Gastrointestinal Bleeding PROTOCOL: 21.5 mCi of [...] MDReport Verified Date/Time: 12/12/2016 13:30:53 Reading Location: [address] Reading Room POCT-GLUCOSE [id number] 11:21:00 Test Item Value Reference Range Interpretation Comments POC-GLUCOSE METER 168 mg/dL 70-110 H TESTED AT [address] ([facility]) (test code [address] [facility] [place] = 1538) [address] POCT-GLUCOSE [id number] 11:21:00 Test Item Value Reference Range Interpretation Comments POC-GLUCOSE METER 184 mg/dL 70-110 H TESTED AT [address] ([facility]) (test code [address] [facility] [place] = 1538) [address] BASIC METABOLIC [id number] 05:16:00 Test Item Value Reference Range Interpretation [...] S NOT APPLICABLE FOR DIALYSIS PATIEN TS. [id number] 05:10:00 Test Item Value Reference Range Interpretation Comments MAGNESIUM (BEAKER) (test code = 2.0 mg/dL 1.5-3.0 627) CBC W/PLT COUNT & AUTO [id number] 04:57:00 Test Item Value Reference Range Interpretation [...] L 0.00-0.20 (test code = 417) POCT-GLUCOSE [id number] 17:02:00 Test Item Value Reference Range Interpretation Comments POC-GLUCOSE METER 177 mg/dL 70-110 H TESTED AT [address] ([facility]) (test code [address] [facility] [place] = 1538) [address] POCT-GLUCOSE [id number] 11:34:00 Test Item Value Reference Range Interpretation Comments POC-GLUCOSE METER 207 mg/dL 70-110 H TESTED AT [address] ([facility]) (test code [facility] [place] = 1538) [address] CBC W/PLT COUNT & AUTO [id number] 10:45:00 Test Item Value Reference Range Interpretation [...] code = 2+ moderate 963) BASIC METABOLIC [id number] 09:40:00 Test Item Value Reference Range Interpretation [...] S NOT APPLICABLE FOR DIALYSIS PATIEN TS. [id number] 09:39:00 Test Item Value Reference Range Interpretation Comments PHOSPHORUS (BEAKER) (test code = 3.3 mg/dL 2.5-4.5 604) [id number] 09:34:00 Test Item Value Reference Range Interpretation Comments MAGNESIUM (BEAKER) (test code = 2.1 mg/dL 1.5-3.0 627) POCT-GLUCOSE [id number] 06:01:00 Test Item Value Reference Range Interpretation Comments POC-GLUCOSE METER 171 mg/dL 70-110 H TESTED AT [address] (BEAKER) (test code [facility] [place] = 1538) [address] POCT-GLUCOSE [id number] 06:00:00 Test Item Value Reference Range Interpretation Comments POC-GLUCOSE METER 148 mg/dL 70-110 H TESTED AT [address] (BEAKER) (test code [address] [facility] [place] = 1538) [address] URINALYSIS W/ [id number] 05:01:00 Test Item Value Reference Range Interpretation [...] = 2795) RAD, CHEST, 1 VIEW, NON [id number] 21:04:00Reason for exam:->coughShould this be performed at [...] MDReport Verified Date/Time: 12/10/2016 21:04:27 Reading Location: [address] Consult Reading Room OCCULT BLOOD, [id number] 20:24:00 Test Item Value Reference Range Interpretation Comments FECAL OCCULT BLOOD (BEAKER) (test Positive Negative A code = 618) CBC W/PLT COUNT & AUTO [id number] 20:10:00 Test Item Value Reference Range Interpretation [...] RBCS(BEAKER) 1+ few (test code = 478) [id number] 20:07:00 Test Item Value Reference Range Interpretation [...] is 2.5-3.5 for patients with mechanical heart valves.[id number] 20:07:00 Test Item Value Reference Range Interpretation Comments LIPASE (BEAKER) (test code = 749) 37 U/L 6-51 COMPREHENSIVE METABOLIC [id number] 20:06:00 Test Item Value Reference Range Interpretation [...] NOT APPLICABLE FOR DIALYSIS PATIEN TS. BLOOD [id number] 06:00:00 Test Item Value Reference Range Interpretation Comments CULTURE (BEAKER) (test No growth in 5 days code = 1095) BLOOD [id number] 06:00:00 Test Item Value Reference Range Interpretation Comments CULTURE (BEAKER) (test No growth in 5 days code = 1095) POCT-GLUCOSE [id number] 12:19:00 Test Item Value Reference Range Interpretation Comments POC-GLUCOSE METER 132 mg/dL 70-110 H TESTED AT [place] [address] ([facility]) (test code = [place] [facility] 1538) [address] POCT-GLUCOSE [id number] 11:19:00 Test Item Value Reference Range Interpretation Comments POC-GLUCOSE METER 222 mg/dL 70-110 H TESTED AT [place] [address] ([facility]) (test code = [place] [facility] 1538) [address] POCT-GLUCOSE [id number] 07:21:00 Test Item Value Reference Range Interpretation Comments POC-GLUCOSE METER 309 mg/dL 70-110 H Notified R Jose FELIX/TESTED ([facility]) (test code = AT [place] [address]) [facility] 7703 0 CBC W/PLT COUNT & AUTO [id number] 05:52:00 Test Item Value Reference Range Interpretation [...] PERCENT (BEAKER) (test code = 2801) POCT-GLUCOSE [id number] 21:36:00 Test Item Value Reference Range Interpretation Comments POC-GLUCOSE METER 284 mg/dL 70-110 H TESTED AT [facility] 6720 (BEAKER) (test code = GIR[place] [facility] 1538) [address] POCT-GLUCOSE [id number] 17:03:00 Test Item Value Reference Range Interpretation Comments POC-GLUCOSE METER 394 mg/dL 70-110 H Notified R N MD/TESTED (BEAKER) (test code = AT [place] [address]8948) [facility] 770 0 POCT-GLUCOSE [id number] 11:47:00 Test Item Value Reference Range Interpretation Comments POC-GLUCOSE METER 332 mg/dL 70-110 H Notified R N MD/TESTED (BEAKER) (test code = AT [place] 808948) [facility] 770 0 POCT-GLUCOSE [id number] 07:19:00 Test Item Value Reference Range Interpretation Comments POC-GLUCOSE METER 350 mg/dL 70-110 H Notified R N MD/TESTED (BEAKER) (test code = AT [place] [address]) [facility] 770 0 BASIC METABOLIC [id number] 05:27:00 Test Item Value Reference Range Interpretation [...] PATIEN TS. CBC W/PLT COUNT & AUTO [id number] 05:05:00 Test Item Value Reference Range Interpretation [...] 417) IMMATURE GRANULOCYTES-RELATIVE 0 % 0-1 PERCENT ([facility]) (test code = 2801) POCT-GLUCOSE [id number] 22:29:00 Test Item Value Reference Range Interpretation Comments POC-GLUCOSE METER 256 mg/dL 70-110 H TESTED AT [place] [address] ([facility]) (test code = GIR[place]aya [facility] 1538) [address] POCT-GLUCOSE [id number] 18:52:00 Test Item Value Reference Range Interpretation Comments POC-GLUCOSE METER 366 mg/dL 70-110 H Notified R Jose FELIX/TESTED ([facility]) (test code = AT [place] [address]) [facility] 7703 0 POCT-GLUCOSE [id number] 12:02:00 Test Item Value Reference Range Interpretation Comments POC-GLUCOSE METER 399 mg/dL 70-110 H Notified Belia Garcia MD/TESTED ([facility]) (test code = AT [place] [address]) [facility] 7703 0 POCT-GLUCOSE [id number] 09:06:00 Test Item Value Reference Range Interpretation Comments POC-GLUCOSE METER 236 mg/dL 70-110 H TESTED AT [place] [address] ([facility]) (test code = [place] [address]) [address] POCT-GLUCOSE [id number] 08:28:00 Test Item Value Reference Range Interpretation Comments POC-GLUCOSE METER 271 mg/dL 70-110 H TESTED AT [place] [address] ([facility]) (test code = [place] [address]) [address] POCT-GLUCOSE [id number] 06:31:00 Test Item Value Reference Range Interpretation Comments POC-GLUCOSE METER 236 mg/dL 70-110 H TESTED AT [place] [address] ([facility]) (test code = [place]IR[place] [address]) [address] BASIC METABOLIC [id number] 05:14:00 Test Item Value Reference Range Interpretation Comments SODIUM (BEAKER) 139 meq/L 136-145 (test code = 381) POTASSIUM (BEAKER) 4.2 meq/L 3.5-5.1 (test code = 379) CHLORIDE (BEAKER) 106 meq/L 98-107 (test code = 382) CO2 (BEAKER) (test 27 meq/L 22-29 code = 355) BLOOD UREA NITROGEN 9 mg/dL 7-21 (BEAKER) (test code = 354) CREATININE ([facility]) 0.93 mg/dL 0.57-1.25 (test code = 358) GLUCOSE RANDOM 257 mg/dL 70-105 H ([facility]) (test code = 652) CALCIUM (AKER) 8.9 mg/dL 8.4-10.2 (test code = 697) EGFR ([facility]) (test 60 mL/min/1.73 ESTIMA OLIVER GFR IS code = 1092) sq m NOT ACCURATE CREATININE CLEARANCE IN PREDICTING GLOMERULAR FILTRATION RATE . ESTIMATED GFR I S NOT APPLICABLE FOR DIALYSIS PATIEN TS. HEMOGLOBIN AND [id number] 05:02:00 Test Item Value Reference Range Interpretation Comments HEMOGLOBIN (BEAKER) (test code = 7.9 GM/DL 11.2-15.7 L 410) HEMATOCRIT ([facility]) (test code = 25.5 % 34.1-44.9 L 411) POCT-GLUCOSE [id number] 22:05:00 Test Item Value Reference Range Interpretation Comments POC-GLUCOSE METER 235 mg/dL 70-110 H TESTED AT [place] [address] ([facility]) (test code = [facility] 1538) [address] POCT-GLUCOSE [id number] 21:56:00 Test Item Value Reference Range Interpretation Comments POC-GLUCOSE METER 274 mg/dL 70-110 H TESTED AT [place] [address] ([facility]) (test code = [facility] 1538) [address] HEMOGLOBIN AND [id number] 21:00:00 Test Item Value Reference Range Interpretation Comments HEMOGLOBIN (BEAKER) (test code = 7.9 GM/DL 11.2-15.7 L 410) HEMATOCRIT ([facility]) (test code = 26.1 % 34.1-44.9 L 411) POCT-GLUCOSE [id number] 17:28:00 Test Item Value Reference Range Interpretation Comments POC-GLUCOSE METER 291 mg/dL 70-110 H TESTED AT [place] [address] ([facility]) (test code = [facility] 1538) [address] VANCOMYCIN LEVEL, [id number] 14:15:00 Test Item Value Reference Range Interpretation Comments VANCOMYCIN TROUGH ([facility]) (test 18.1 ug/mL 10.0-20.0 code = 522) HEMOGLOBIN AND [id number] 13:53:00 Test Item Value Reference Range Interpretation Comments HEMOGLOBIN (BEAKER) (test code = 8.6 GM/DL 11.2-15.7 L 410) HEMATOCRIT (BEAKER) (test code = 28.0 % 34.1-44.9 L 411) POCT-GLUCOSE [id number] 06:09:00 Test Item Value Reference Range Interpretation Comments POC-GLUCOSE METER 205 mg/dL 70-110 H TESTED AT [facility] 6720 (BEAKER) (test code = [place] 1538) [address] BASIC METABOLIC [id number] 03:51:00 Test Item Value Reference Range Interpretation [...] PATIEN TS. CBC W/PLT COUNT & AUTO [id number] 03:28:00 Test Item Value Reference Range Interpretation [...] PERCENT (BEAKER) (test code = 2801) POCT-GLUCOSE [id number] 00:46:00 Test Item Value Reference Range Interpretation Comments POC-GLUCOSE METER 331 mg/dL 70-110 H TESTED AT [facility] 6720 (BEAKER) (test code = [place] 1538) [address] HEMOGLOBIN AND [id number] 23:35:00 Test Item Value Reference Range Interpretation Comments HEMOGLOBIN (BEAKER) (test code = 8.0 GM/DL 11.2-15.7 L 410) HEMATOCRIT (BEAKER) (test code = 24.9 % 34.1-44.9 L 411) POCT-GLUCOSE [id number] 18:09:00 Test Item Value Reference Range Interpretation Comments POC-GLUCOSE METER 391 mg/dL 70-110 H Notified R Jose MD/TESTED (BEAKER) (test code = AT [facility] [address] [place] [id number]) [facility] 7703 0 HEMOGLOBIN AND [id number] 16:39:00 Test Item Value Reference Range Interpretation Comments HEMOGLOBIN (BEAKER) (test code = 6.7 GM/DL 11.2-15.7 L 410) HEMATOCRIT (BEAKER) (test code = 22.4 % 34.1-44.9 L 411) POCT-GLUCOSE [id number] 12:39:00 Test Item Value Reference Range Interpretation Comments POC-GLUCOSE METER 238 mg/dL 70-110 H TESTED AT [facility] 6720 (BEAKER) (test code = [place] [facility] 1538) [address] HEMOGLOBIN AND [id number] 11:15:00 Test Item Value Reference Range Interpretation Comments HEMOGLOBIN (BEAKER) (test code = 7.5 GM/DL 11.2-15.7 L 410) HEMATOCRIT (BEAKER) (test code = 24.9 % 34.1-44.9 L 411) CBC W/PLT COUNT & AUTO [id number] 07:49:00 Test Item Value Reference Range Interpretation [...] PERCENT (BEAKER) (test code = 2801) POCT-GLUCOSE [id number] 06:45:00 Test Item Value Reference Range Interpretation Comments POC-GLUCOSE METER 205 mg/dL 70-110 H TESTED AT [facility] 6720 (BEAKER) (test code = [place] 1538) [address] LACTIC ACID, VENOUS, WHOLE [id number] 01:37:00 Test Item Value Reference Range Interpretation Comments LACTATE BLOOD VENOUS (2) (BEAKER) 1.9 mmol/L 0.5-2.2 (test code = 2872) Effective 07/31/2015: Units/Reference Range ChangeNew: 0.5-2.2 mmol/L Previous: 5-20 mg/dLCOMPREHENSIVE METABOLIC [id number] 00:19:00 Test Item Value Reference Range Interpretation [...] S NOT APPLICABLE FOR DIALYSIS PATIEN TS. [id number] 00:17:00 Test Item Value Reference Range Interpretation Comments PHOSPHORUS (BEAKER) (test code = 3.2 mg/dL 2.3-4.7 604) [id number] 00:17:00 Test Item Value Reference Range Interpretation Comments MAGNESIUM (BEAKER) (test code = 2.1 mg/dL 1.6-2.6 627) POCT-GLUCOSE [id number] 00:17:00 Test Item Value Reference Range Interpretation Comments POC-GLUCOSE METER 200 mg/dL 70-110 H TESTED AT [facility] 6720 (BEAKER) (test code = [place] 1538) [address] PROTHROMBIN [id number] 00:07:00 Test Item Value Reference Range Interpretation [...] PERCENT (BEAKER) (test code = 2801) POCT-GLUCOSE [id number] 11:41:00 Test Item Value Reference Range Interpretation Comments POC-GLUCOSE METER 259 mg/dL 70-110 H TESTED AT [facility] 6720 (BEAKER) (test code = [place] 1538) [address] [id number] 07:35:00 Test Item Value Reference Range Interpretation Comments PHOSPHORUS (BEAKER) (test code = 3.5 mg/dL 2.3-4.7 604) [id number] 07:35:00 Test Item Value Reference Range Interpretation Comments MAGNESIUM (BEAKER) (test code = 1.6 mg/dL 1.6-2.6 627) BASIC METABOLIC [id number] 07:35:00 Test Item Value Reference Range Interpretation [...] NOT APPLICABLE FOR DIALYSIS PATIEN TS. POCT-GLUCOSE [id number] 07:33:00 Test Item Value Reference Range Interpretation Comments POC-GLUCOSE METER 247 mg/dL 70-110 H TESTED AT [facility] 6720 (BEAKER) (test code = [place] 1538) [address] CBC W/PLT COUNT & AUTO [id number] 06:53:00 Test Item Value Reference Range Interpretation [...] PERCENT (BEAKER) (test code = 2801) POCT-GLUCOSE [id number] 21:09:00 Test Item Value Reference Range Interpretation Comments POC-GLUCOSE METER 398 mg/dL 70-110 H Patient on insulin ([facility]) (test code = Drip/T ESTED AT [place] [address]) [address] [facility] [address] POCT-GLUCOSE [id number] 17:42:00 Test Item Value Reference Range Interpretation Comments POC-GLUCOSE METER 341 mg/dL 70-110 H TESTED AT [place] [address] ([facility]) (test code = [place] [address]) [address] POCT-GLUCOSE [id number] 12:03:00 Test Item Value Reference Range Interpretation Comments POC-GLUCOSE METER 285 mg/dL 70-110 H TESTED AT [place] [address] ([facility]) (test code = [place] [address]) [address] POCT-GLUCOSE [id number] 06:11:00 Test Item Value Reference Range Interpretation Comments POC-GLUCOSE METER 335 mg/dL 70-110 H TESTED AT [place] [address] ([facility]) (test code = [place] [address]) [address] [id number] 05:12:00 Test Item Value Reference Range Interpretation Comments PHOSPHORUS ([facility]) (test code = 4.0 mg/dL 2.3-4.7 604) [id number] 05:12:00 Test Item Value Reference Range Interpretation Comments MAGNESIUM (BEAKER) (test code = 1.5 mg/dL 1.6-2.6 L 627) BASIC METABOLIC [id number] 05:12:00 Test Item Value Reference Range Interpretation [...] PATIEN TS. CBC W/PLT COUNT & AUTO [id number] 04:40:00 Test Item Value Reference Range Interpretation [...] PERCENT (BEAKER) (test code = 2801) POCT-GLUCOSE [id number] 21:37:00 Test Item Value Reference Range Interpretation Comments POC-GLUCOSE METER 271 mg/dL 70-110 H TESTED AT [place] [address] ([facility]) ([facility] = [facility] 1538) [address] POCT-GLUCOSE [id number] 17:40:00 Test Item Value Reference Range Interpretation Comments POC-GLUCOSE METER 273 mg/dL 70-110 H TESTED AT [place] [address] ([facility]) (test code = [facility] 1538) [address] POCT-GLUCOSE [id number] 12:52:00 Test Item Value Reference Range Interpretation Comments POC-GLUCOSE METER 303 mg/dL 70-110 H TESTED AT [place] [address] ([facility]) (test code = [facility] [facility] 1538) [address] POCT-GLUCOSE [id number] 08:44:00 Test Item Value Reference Range Interpretation Comments POC-GLUCOSE METER 306 mg/dL 70-110 H Notified R Jose FELIX/TESTED (BEAKER) (test code = AT [facility] 67[address] [facility] [place] [address] [id number] 04:53:00 Test Item Value Reference Range Interpretation Comments PHOSPHORUS (BEAKER) (test code = 4.0 mg/dL 2.3-4.7 604) [id number] 04:53:00 Test Item Value Reference Range Interpretation Comments MAGNESIUM (BEAKER) (test code = 1.7 mg/dL 1.6-2.6 627) BASIC METABOLIC [id number] 04:53:00 Test Item Value Reference Range Interpretation [...] PATIEN TS. CBC W/PLT COUNT & AUTO [id number] 04:38:00 Test Item Value Reference Range Interpretation [...] PERCENT (BEAKER) (test code = 2801) POCT-GLUCOSE [id number] 21:24:00 Test Item Value Reference Range Interpretation Comments POC-GLUCOSE METER 307 mg/dL 70-110 H Notified R N MD/TESTED (BEAKER) (test code = AT [facility] [address] [facility] 3109) [facility] [address] POCT-GLUCOSE [id number] 17:52:00 Test Item Value Reference Range Interpretation Comments POC-GLUCOSE METER 224 mg/dL 70-110 H TESTED AT [facility] 6720 (BEAKER) (test code = [place] [facility] 1538) [address] POCT-GLUCOSE [id number] 12:46:00 Test Item Value Reference Range Interpretation Comments POC-GLUCOSE METER 250 mg/dL 70-110 H TESTED AT [facility] 6720 (BEAKER) (test code = [place] [facility] 1538) [address] POCT-GLUCOSE [id number] 08:44:00 Test Item Value Reference Range Interpretation Comments POC-GLUCOSE METER 319 mg/dL 70-110 H Notified R Jose FELIX/TESTED (BEAKER) (test code = AT [facility] [address] [facility] 1538) [facility] [address] [id number] 05:35:00 Test Item Value Reference Range Interpretation Comments PHOSPHORUS (BEAKER) (test code = 3.8 mg/dL 2.3-4.7 604) [id number] 05:35:00 Test Item Value Reference Range Interpretation Comments MAGNESIUM (BEAKER) (test code = 1.8 mg/dL 1.6-2.6 627) BASIC METABOLIC [id number] 05:35:00 Test Item Value Reference Range Interpretation [...] PATIEN TS. CBC W/PLT COUNT & AUTO [id number] 04:52:00 Test Item Value Reference Range Interpretation [...] (test code = 416) BASOPHILS ABSOLUTE COUNT ([facility]) 0.06 K/ L 0.01-0.08 (test code = 417) IMMATURE GRANULOCYTES-RELATIVE 0 % 0-1 PERCENT ([facility]) (test code = 2801) POCT-GLUCOSE [id number] 21:33:00 Test Item Value Reference Range Interpretation Comments POC-GLUCOSE METER 195 mg/dL 70-110 H TESTED AT [place] [address] ([facility]) (test code = [place] 15[address]) [address] POCT-GLUCOSE [id number] 20:09:00 Test Item Value Reference Range Interpretation Comments POC-GLUCOSE METER 268 mg/dL 70-110 H TESTED AT [place] [address] ([facility]) (test code = [place] [employer] [facility] 1538) [address] POCT-GLUCOSE [id number] 17:13:00 Test Item Value Reference Range Interpretation Comments POC-GLUCOSE METER 400 mg/dL 70-110 HH TESTED AT [place] [address] ([facility]) (test code = [place] [employer] [facility] 1538) [address] POCT-GLUCOSE [id number] 10:55:00 Test Item Value Reference Range Interpretation Comments POC-GLUCOSE METER 216 mg/dL 70-110 H TESTED AT [place] [address] ([facility]) (test code = [place] [address]) [address] POCT-GLUCOSE [id number] 07:07:00 Test Item Value Reference Range Interpretation Comments POC-GLUCOSE METER 240 mg/dL 70-110 H TESTED AT [place] [address] ([facility]) (test code = [place] 1538) [address] POCT-GLUCOSE [id number] 06:13:00 Test Item Value Reference Range Interpretation Comments POC-GLUCOSE METER 249 mg/dL 70-110 H TESTED AT [place] [address] ([facility]) (test code = [place] 1538) [address] [id number] 05:36:00 Test Item Value Reference Range Interpretation Comments PHOSPHORUS (BEAKER) (test code = 3.5 mg/dL 2.3-4.7 604) [id number] 05:36:00 Test Item Value Reference Range Interpretation Comments [facility] (test code = 1.7 mg/dL 1.6-2.6 627) BASIC METABOLIC [id number] 05:36:00 Test Item Value Reference Range Interpretation [...] PATIEN TS. CBC W/PLT COUNT & AUTO [id number] 05:19:00 Test Item Value Reference Range Interpretation [...] (BEAKER) (test code = 2801) COMPREHENSIVE METABOLIC [id number] 23:04:00 Test Item Value Reference Range Interpretation [...] NOT APPLICABLE FOR DIALYSIS PATIEN TS. PROTHROMBIN [id number] 22:57:00 Test Item Value Reference Range Interpretation [...] % 0-1 PERCENT (BEAKER) (test code = 7766)
--- NOTE | 2021-08-03 20:53 | ER ---
Nurse's Notes [facility] Name: Sia Salazar Age: 75 yrs Sex: Female : 1945 Arrival Date: 08/03/2021 Time: 20:26 Bed Waiting Private MD: Diagnosis: ED Course: 08/03 20:26 Patient arrived in ED. kandrez 20:52 Patient's name was called from ER lobby. No response. Unable to locate patient. Will bb disposition as left without being seen by a provider. Administered Medications: No medications were administered Outcome: 20:52 Patient left the ED. bb Signatures: Greta Luu RN RN bb Tyra Cifuentes kz
== END 2021-08-03 20:52 | disposition left against medical advice (07) ==
LOC: ER 19:59
DX: Z02.9 Encounter for administrative examinations, unspecified (principal)

== ENCOUNTER 2021-12-12 07:28 | Day surgery (SDC) | payer MEDICARE ==
[2021-12-12] MEDS ORDERED: NA CHLORIDE 0.9% 250 ML ONE ×2 (08:32→12:23)
[2021-12-12 09:21] VITALS: BMI 24.5
[2021-12-12 15:52] VITALS: BP 132/40; TEMP 98.4; O2SAT 93
[2021-12-12 17:36] LABS: Hematocrit 31.7 % (36.0-45.0)
== END 2021-12-12 17:12 | disposition home or self-care (01) ==
LOC: DS 07:28
PROVIDERS: ATTEND Internal Medicine Hematology & Oncology
DX: D50.9 Iron deficiency anemia, unspecified (principal); K92.2 Gastrointestinal hemorrhage, unspecified; Q27.30 Arteriovenous malformation, site unspecified; R53.83 Other fatigue; E11.9 Type 2 diabetes mellitus without complications; E78.5 Hyperlipidemia, unspecified
CPT/HCPCS: 36415; 86900; 86850; 86870; 86901; 85018; 85014; 86922 ×2; 36430; P9016 ×2; J7050 ×2

== ENCOUNTER 2022-01-11 13:58 | Emergency (ER) | payer MEDICARE ==
--- OUTSIDE RECORDS SUMMARY | 2022-01-11 14:11 | XMS REPORT | Continuity of Care Document ---
:[address] [facility] t Address [address] [place] [address] Care Team Providers Name Role Phone Sharpless Primary Care Physician Isra Rondon Attending Clinician Unavailable LIDIA NAZARIO Attending Clinician Unavailable Iyanoye_S Attending Clinician Unavailable MORALES FITCH Attending Clinician Unavailable Morales Nicole Attending Clinician Lidia Nazario MD Attending Clinician Pob, [facility] Lab Main Attending Clinician Unavailable Chance Paul MD Attending Clinician CHANCE PAUL Attending Clinician Unavailable Doctor Unassigned, [place] Attending Clinician Unavailable LIBRADO ABRAMS Attending Clinician Unavailable Librado Abrams MD Attending Clinician Chela Knowles MD Attending Clinician Lab, Ang - Db Attending Clinician Unavailable CHELA KNOWLES Attending Clinician Unavailable ERNESTO CHURCHILL Attending Clinician Unavailable Sam Redding MD Attending Clinician JEN TALBERT Attending Clinician Unavailable Provider, [facility] Attending Clinician Unavailable Jen Talbert MD Attending Clinician Jose Nguyen MD Attending Clinician TANA VELEZ Attending Clinician Unavailable Dora FELIX, Tana Attending Clinician KEISHA APARICIO Attending Clinician Unavailable Keisha Aparicio MD Attending Clinician INDIGO JIMÉNEZ Attending Clinician Unavailable [facility], [facility] Pob I Attending Clinician Unavailable Sd ROLL COVERER, Simi Attending Clinician [facility] Attending Clinician Unavailable JOSE NGUYEN Attending Clinician Unavailable Isaac GREGORY, Morena Attending Clinician MORENA GRAY Attending Clinician Unavailable SIMI BEAVER Attending Clinician Unavailable OLI JEFFREY K.HTrina Attending Clinician Unavailable Rachele FELIX [facility] Attending Clinician SAM REDDING Attending Clinician Unavailable , [facility] Room 1 - Attending Clinician Unavailable JOSE DUNLAP Attending Clinician Unavailable Jose Dunlap DO Attending Clinician SHENA ORR Attending Clinician Unavailable ANGELES UGALDE Attending Clinician Unavailable ADRIANA MAGALLANES Attending Clinician Unavailable WILL TINAJERO Attending Clinician Unavailable Darwin Adrian Attending Clinician [phone] Iyanflavio_S Admitting Clinician Unavailable MORALES FITCH Admitting Clinician Unavailable JOSE DUNLAP Admitting Clinician Unavailable SIMI BEAVER Admitting Clinician Unavailable SHENA ORR Admitting Clinician Unavailable EDUARDO LEGER Admitting Clinician Unavailable ADRIANA MAGALLANES Admitting Clinician Unavailable WILL TINAJERO Admitting Clinician Unavailable Payers Payer Name Policy Type Policy Number Effective Date Expiration Date S ivy [facility] [id number] 2021 MEDICARE 00:00:00 ADVANTAGE PLAN [facility] [id number] 2021 (MEDICARE 00:00:00 REPLACEMENT HMO) WELLC[employer] VALUE [id number] 2020 00:00:00 Well[employer] C1 [id number] [facility] MEDICARE PART A [id number] 2011 2020 \\T\\ B 00:00:00 00:00:00 Problems Condition Condition Condition Status Onset Resolution Last Treating Co mments Source Name Details Category Date Date Treatment Clinician Date Calcium Calcium Disease Active Univers oxalate oxalate 9-08 ity of crystals crystals 00:00: [place] in [...] 00:[place]: [place] failure failure 00 Medical Branch Acute GI Acute GI Disease Active [facility] bleeding [facility] Arterioven Arterioven Disease Active [facility] ous ous 17 [facility] malformati malformati 00:00: Me dical on (AVM) on (AVM) 00 Center Diabetes Diabetes Disease Active Overview: CH I St mellitus mellitus 12-13 Formattin Luis es 00:00: g of this Medical 00 note Center might be different from the original. Type II Microcytic Microcytic Disease Active [facility] anemia anemia 17 [facility] Center Gastrointe Gastrointe Disease Active [facility] stinal stinal 9-14 [facility] hemorrhage hemorrhage 00:00: Me dical , , 00 Center unspecifie unspecifie d d gastrointe gastrointe stinal stinal hemorrhage hemorrhage type type Severe Severe Disease Active [facility] sepsis sepsis 8 [facility] 00:[facility] 00 Center Anemia due Anemia due Disease Active C [facility] to acute to acute 11-24 [facility] blood loss blood loss 00:00: Me dical 00 Center Upper GI Upper GI Disease Active [facility] t bleed bleed 10-27 [facility] 00:[facility]: Medical 00 Center Angiodyspl Angiodyspl Disease Active C [facility] darío of darío of 10-27 [facility] intestine intestine 00:00: Medi jorge l with with 00 Center hemorrhage hemorrhage Acute Acute Disease Active [facility] blood loss blood loss 10-27 Dora kes anemia anemia 00:00: Medical 00 Center Upper GI Upper GI Disease Active Unive rs bleed bleed 10-23 ity of 00:00: [address] Branch GI bleed GI bleed Disease Active [facility] t 10[facility]23 [facility] 00:00: Medical 00 Delmita DSU- DSU- Diagnosis Active 2017-02-10 [facility] oritesfaye HEMATOCHEZ HEMATOCHEZ 10-01 16:16:00 l IA R19.5, IA R19.5, 00:00: Herm kun FATIGUE FATIGUE 00 R53.83, R53.83, Active 10/01/2016 [facility] Obesity Obesity Disease Active Univers (BMI (BMI -07 ity of 30-39.9) 30-39.9) 00:00: [address] SBO (small SBO (small Disease Active U nivers bowel bowel 09-01 ity of obstructio [place] Branch F/U F/U Diagnosis Active 2016-10-01 Mem oria Active 07-02 10:31:00 l 07/02/2016 00:00: Gilbert adams [address] CONSULT CONSULT Diagnosis Active 2016-07-02 Memoria Active 05-06 11:37:00 l 05/06/2016 00:00: Gilbert adams [address] Depression Depression Disease Active U nivers ity of [facility] [id number] Right-side Problem Co mmon d back Spirit pain, - [facility]I unspecifie St d back [facility], Medical unspecifie Center d chronicity Anxiety Anxiety Problem [facility] Osteoporos Osteoporos Problem C ommon is is Spirit - [facility] Depression Depression Problem C ommon Spirit - [facility] COPD - COPD Problem Common Chronic (chronic Spirit obstructiv obstructiv - [facility] e e pulmonary pulmonary [place] s disease disease) Medical Center [id number] Ventral Problem Commo n hernia Spirit without - CHI obstructio [facility] gangrene [facility] Stroke Stroke Problem [facility] - [facility] White Other Problem Common blood cell specified Spi rit disorder disease of - CH I white blood [facility] Seasonal Seasonal Problem Commo n allergic allergic Spirit rhinitis reaction - [facility] [id number] Coronary Problem Comm on artery Spirit disease - CHI involving [facility] coronary Medical artery of Center ho-chunk heart with other form of angina pectoris Disorder Circulatio Problem Com mon of n problem Spirit cardiovasc - CHI ular [facility] [id number] Abdominal Problem Comm on pain, Spirit unspecifie - CHI d abdominal [facility] [id number] Depression Problem Co mmon screening Spirit [facility] [id number] Uncontroll Problem Co mmon ed type 2 Spirit diabetes - CH[facility] mellitus [facility] hyperglyce [facility] Peripheral Peripheral Problem C ommon neuropathy neuropathy Sp tarun - [facility] [id number] Insomnia, Problem Com mon unspecifie Spirit d type - [facility] [id number] Hammer toe Problem Co mmon of right Spirit foot - [facility] Iron Iron Problem Common deficiency deficiency Sp tarun anemia anemia - [facility] [id number] Primary Problem Commo n osteoarthr Spirit itis - CHI involving [facility] [id number] Cardiomyop Problem Com mon athy, Spirit unspecifie - CHI d [facility] [id number] Decreased Problem Comm on diastolic Spirit blood - CHI pressure [facility] [id number] Pneumonia Problem Com mon due to Spirit infectious - [facility] organism[facility] laterality [facility] , unspecifie d part of lung [id number] Arterioven Problem Co mmon ous Spirit malformati - CHI on small [facility] [id number] Tobacco Problem Commo n use Spirit - [facility] [id number] Essential Problem Comm on hypertensi Spirit on - [facility] [id number] Wheezing Problem Commo n Spirit - [facility] [id number] Tremor Problem [facility] Arterioven Arterioven Problem C ommon ous ous Spirit malformati malformati - CHI on on, other [facility] [id number] Depression Problem Com mon , major, Spirit single - CHI episode, [facility] [id number] Chronic Problem Commo n kidney Spirit disease, - [facility] stage [address] [facility] [id number] Type 2 Problem Commo n 05 diabetes Spirit mellitus - CHI with [facility] Center disease Anemia due Anemia due Problem C ommon to blood to blood Spirit loss loss - [facility] [id number] History of Problem C ommon 28642 allergic Spirit reaction - [facility] [id number] Chronic Problem Commo n pain Spirit syndrome - [facility] Hyperlipid Hyperlipem Problem C ommon aemia ia Spirit - [facility] Type 2 Type 2 Problem Common diabetes diabetes Spirit mellitus mellitus - CHI without without St complicati complicati Dora kes on on Medical Center Anemia Anemia Problem Resolve 2016-10-04 Mem oria (disorder) (disorder) d 00:05:00 l Resolved Nader Problem 10/04/2016 [facility] Congenital Congenita Problem Resolve 2016-10-04 Memoria arterioven l d 00:05:00 l ous arterioven Gilbert n malformati ous on malformati (disorder) on (disorder) Resolved Problem 10/04/2016 [facility] Gallbladde Gallbladd Problem Resolve 2016-10-04 Memoria r calculus er d 00:05:00 l (disorder) calculus Herm kun (disorder) Resolved Problem 10/04/2016 [facility] Gout Gout Problem Resolve 2016-10-04 Jim maya (disorder) (disorder) d 00:05:00 l Resolved [place] Problem 10/04/2016 [facility] History of History Problem Resolve 2016-10-04 Memoria - TIA of - TIA d 00:05:00 l (context-d (context-d He rmann ependent ependent category) category) Resolved Problem 10/04/2016 [facility] Asthma Asthma Problem Resolve 2016-10-04 Mem oria (disorder) (disorder) d 00:05:00 l Resolved [place] Problem 10/04/2016 [facility] Arthritis Arthritis Problem Resolve 2016-10-04 Memoria (disorder) (disorder) d 00:05:00 l Resolved [place]ader Problem 10/04/2016 [facility] Peripheral Periphera Problem Resolve 2016-10-04 Memoria vascular l vascular d 00:05:00 l disease disease Nader (disorder) (disorder) Resolved Problem 10/04/2016 [facility] Polyp of Polyp of Problem Resolve 2016-10-04 Memoria colon colon d 00:05:00 l (disorder) (disorder) He rmann Resolved Problem 10/04/2016 [facility] ENCNTR FOR ENCNTR Diagnosis Active 2016-10-01 Memoria GENERAL FOR 10:31:00 l ADULT GENERAL [place] MEDICAL ADULT EXAM W/ MEDICAL EXAM W/ Active [facility] OTHER OTHER Diagnosis Active 2017-02-10 Mem oria FECAL FECAL 16:16:00 l ABNORMALIT ABNORMALIT He rmann IES IES Active [facility] Allergies, Adverse Reactions, Alerts Allergy Allergy Status Severity Reaction(s) Onset Inactive Treating Comm ents Source Name Type Date Date Clinician HYDROXYZ DRUG Active Hives 2019- Univers INE INGREDI 0-12 ity of 00:00: [place] 00 Medical Branch Hydroxyz Propensi Active Hives 2019-03 Univer s ine ty to 0-12 ity of adverse 00:00: [place] reaction 00 Medical s Branch METRONID DRUG Active High Hives 2018- Univers AZOLE INGREDI 0-15 ity of 00:00: [place] 00 Medical Branch Atorvast Propensi Active Hives [facility] atin ty to 7-27 [facility] adverse 00:00: Medical reaction 00 Center s Penicill Propensi Active Hives [facility] ins ty to 7-27 [facility] adverse 00:00: Medical reaction 00 Center s Pioglita Propensi Active [facility] zone ty to 7-27 [facility] adverse 00:00: Medical reaction 00 Center s Rosuvast Propensi Active [facility] atin ty to 7-27 [facility] adverse 00:00: Medical reaction 00 Center s Sitaglip Propensi Active [facility] tin ty to 10-22 Lu adverse 00:00: Medical reaction 00 Center s Sulfa Propensi Active Hives [facility] (Sulfona ty to 10-22 [facility] mide adverse 00:00: Medical Antibiot reaction 00 Center ics) s Sulfamet Propensi Active [facility] hoxazole ty to 10-22 Lu adverse 00:00: Medical reaction 00 Center s Trimetho Propensi Active [facility] prim ty to 10-22 Lu adverse 00:00: Medical reaction 00 Center s Bupropio Propensi Active [facility] n Hcl ty to 10-22 Lu adverse 00:00: Medical reaction 00 Center s Clindamy Propensi Active [facility] fabián ty to 10-22 Lu adverse 00:00: Medical reaction 00 Center s Propoxyp Propensi Active Anaphylaxis C HI St hene ty to 10-22 Lu N-Acetam adverse 00:00: Medical inophen reaction 00 Center s Erythrom Propensi Active Hives [facility] ycin ty to 10-22 Lu adverse 00:00: Medical reaction 00 Center s Glimepir Propensi Active Hives [facility] diane ty to 10-22 Lu adverse 00:00: Medical reaction 00 Center s Glipizid Propensi Active [facility] e ty to 10-22 Lu adverse 00:00: Medical reaction 00 Center s Peg Propensi Active Anaphylaxis [facility] 3350-Carline ty to 10-22 Lu ctrolyte adverse 00:00: Medical s reaction 00 Center s Iodine Propensi Active Anaphylaxis [facility] And ty to 10-22 Lu Iodide adverse 00:00: Medical Containi reaction 00 Center ng s Products PROPOXYP DRUG Active High Anaphylaxis Uni vers HENE 10-22 ity of N-ACETAM 00:00: [place] INOPHEN 00 Medical Branch BUPROPIO DRUG Active Other-Cmnt Univ ers N HCL INGREDI 10-22 ity of 00:00: 00 Medical Branch PIOGLITA DRUG Active Unknown-Cmnt Un soni ZONE INGREDI 10-22 ity of 00:00: [place] 00 Medical Branch TRIMETHO DRUG Active Unknown-Cmnt 2017-0 Un soni PRIM INGREDI 7 ity of 00:00: [place] 00 Medical Branch PIOGLITA DRUG Active Hives 2017-0 Univers ZONE HCL INGREDI 09-01 ity of 00:00: [place] 00 Medical Branch CLINDAMY DRUG Active ITCHING 2017-0 Univers FABIÁN INGREDI 09-01 ity of 00:00: [place] 00 Medical Branch ROSUVAST DRUG Active ITCHING 2017-0 Univers ATIN INGREDI 09-01 ity of CALCIUM 00:00: [place] 00 Medical Branch ERYTHROM DRUG Active Other-Cmnt 2017-0 Univ ers YCIN 09-01 ity of 00:00: [place] 00 Medical Branch GLIMEPIR DRUG Active Hives 2017- Univers DIANE INGREDI 09-01 ity of 00:00: [place] 00 Medical Branch IODINE DRUG Active Hives 2017- Univers INGREDI 09-01 ity of 00:00: [place] 00 Medical Branch SITAGLIP DRUG Active Other-Cmnt 2017-0 Univ ers TIN INGREDI 09-01 ity of 00:00: [place] 00 Medical Branch ATORVAST DRUG Active Other-Cmnt 2017-0 Univ ers ATIN INGREDI 09-01 ity of 00:00: [place] 00 Medical Branch PENICILL DRUG Active Swelling 2017-0 Univer s IN INGREDI 09-01 ity of 00:00: [place] 00 Medical Branch SULFA Drug Active Hives 2017-0 Univers (SULFONA Class 09-01 ity of MIDE 00:00: [place] ANTIBIOT 00 Medical ICS) Branch SULFAMET DRUG Active Hives 2017 Univers HOXAZOLE INGREDI 09-01 ity of 00:00: [place] 00 Medical Branch BUPROPIO DRUG Active Hives 2017-0 Univers N INGREDI 09-01 ity of 00:00: [place] 00 Medical Branch CODEINE DRUG Active Low ITCHING 2017-0 Univers INGREDI 06 ity of 00:00: [place] 00 Medical Branch MORPHINE DRUG Active Low ITCHING 2017-0 Univers INGREDI 06 ity of 00:00: [place] 00 Medical Branch Sulfa Propensi Active Hives 2017-0 Univers (Sulfona ty to 6-06 ity of mide adverse 00:00: [place] Antibiot reaction 00 Medica l ics) s Branch Pioglita Propensi Active Hives 2017 Univer s zone Hcl ty to 6- ity of adverse 00:00: [place] reaction 00 Medical s Branch Clindamy Propensi Active Itching Unive rs fabián ty to 6- ity of adverse 00:00: [place] reaction Medical s Branch Codeine Propensi Active Itching Univer s ty to - ity of adverse 00:00: [place] reaction Medical s to Branch drug Rosuvast Propensi Active Itching Unive rs atin ty to 09-01 ity of Calcium adverse 00:00: [place] reaction Medical s Branch Erythrom Propensi Active Other - See U nivers ycin ty to comments 09-01 ity of adverse 00:00: [place] reaction Medical s Branch Glimepir Propensi Active Hives Univer s diane ty to 09-01 ity of adverse 00:00: [place] reaction Medical s Branch Iodine Propensi Active Hives IV Univers ty to 09-01 contrast ity of adverse 00:00: only. As [place] reaction 00 of Medical s 09/01/16, Branch has not previousl y used oral contrast. Sitaglip Propensi Active Other - See U nivers tin ty to comments 09-01 ity of adverse 00:00: [place] reaction Medical s Branch Atorvast Propensi Active Other - See U nivers atin ty to comments 09-01 ity of adverse 00:00: [place] reaction Medical s Branch Morphine Propensi Active Itching Unive rs ty to 6- ity of adverse 00:00: [place] reaction 00 Medical s to Branch drug Penicill Propensi Active Swelling Univ ers in ty to 09-01 ity of adverse 00:00: [place] reaction 00 Medical s Branch Sulfa Propensi Active Hives Univers (Sulfona ty to 09-01 ity of mide adverse 00:00: [place] Antibiot reaction 00 Medica l ics) s Branch Sulfamet Propensi Active Hives Univer s hoxazole ty to - ity of adverse 00:00: [place] reaction Medical s Branch Bupropio Propensi Active Hives Univer s n ty to 09-01 ity of adverse 00:00: [place] reaction 00 Medical s Branch erythrom erythrom Active Memori a ycin ycin l [place] glimepir glimepir Active Memori a diane diane l [place] glipiZID glipiZID Active Memori a E E l [place] iodine iodine Active Memoria l [place] Januvia Januvia Active Memoria l [place] Lipitor Lipitor Active Memoria l [place] metFORMI metFORMI Active Memori a N N l [place] morphine morphine Active Memori a l [place] penicill penicill Active Memori a ins ins l [place] sulfa sulfa Active Memoria drugs drugs l [place] Wellbutr Wellbutr Active Memori a in in l [place] Bactrim Bactrim Active Memoria l [place] Bandaids Bandaids Active Memori a l [place] clindamy clindamy Active Memori a fabián fabián l [place] codeine codeine Active Memoria l [place] Crestor Crestor Active Memoria l [place] Darvocet Darvocet Active Memori a -N 50 -N 50 l [place] clindamy clindamy Active Unknown Commo n fabián fabián [facility] hydroxyz hydroxyz Active Unknown Commo n ine ine [facility] atorvast atorvast Active Unknown Commo n atin atin [facility] metronid metronid Active Unknown Commo n azole azole [facility] erythrom erythrom Active Unknown Commo n ycin ycin [facility] propoxyp propoxyp Active Unknown Commo n hene hene [facility] [id number] Drug Active Unknown Common allergy [facility] glimepir glimepir Active Unknown Commo n diane diane [facility] trimetho trimetho Active Unknown Commo n prim prim [facility] 463 Drug Active Unknown Common allergy [facility] Codeine Codeine Active Unknown Common [facility] Morphine Morphine Active Unknown Commo n [facility] Penicill Penicill Active Unknown Commo n in in [facility] pioglita pioglita Active Unknown Commo n zone zone [facility] bupropio bupropio Active Unknown Commo n n n [facility] rosuvast rosuvast Active Unknown Commo n atin atin [facility] [id number] Drug Active Unknown Common 44 allergy [facility] Family History Family Member Diagnosis Comments Start Date Stop Date Source Natural brother Depression [facility] Natural daughter Depression [facility] St L ukes [facility] Natural father Early [facility] Natural mother No Known Problem [facility] Natural sister Depression [facility] Natural son No Known Problem [facility] Social History Social Habit Start Date Stop Date Quantity Comments Source History SDOH University o f Alcohol Frequency [facility] edical Branch History SDOH University o f Alcohol Std Drinks [facility] Branch History SDMA University o f Alcohol Binge [facility] al Branch History of Tobacco Current Smoker Co mmon Spirit - Use [facility] Sex Assigned At Common Sp tarun - [facility] Exposure to 2021-07-24 2021-08-03 Not sure University of SARS-CoV-2 (event) 00:00:00 22:08:00 [facility] Alcohol Comment 2019-01-06 2019-01-06 1 glass of wine Univ ersity of 00:00:00 00:00:00 every few months [facility] dical Branch Cigarettes smoked 2019-01-06 2019-01-06 Univers ity of current (pack per 00:00:00 00:00:00 [facility] ) - Reported Branch Cigarette 2019-01-06 2019-01-06 University of pack-years 00:00:00 00:00:00 [facility] Alcohol intake 2016-12-15 2016-12-15 Current [facility] St Luis es 00:00:00 00:00:00 non-drinker of Medical Ce nter alcohol (finding) Tobacco use and 2016-12-11 2016-12-11 Never used [facility] exposure 00:00:00 00:00:00 [facility] Tobacco Comment 2016-09-02 2016-09-02 quit in 2014 Univers ity of 00:00:00 00:00:00 [facility] Social History 2016-07-02 2016-07-02 [facility] Michaela marley 15:44:33 15:44:33 Smoking Status Start Date Stop Date Source Current Smoker 2021-12-30 00:00:00 Common Spiri t - [facility] Never smoker [facility] Medications Ordered Filled Start Stop Current Ordering Indication Dosage Frequency Signature Comments Components Source Medication Medication Date Date Medication? Clinician (SIG) Name Name Benzonatate Benzonatate 2021- No 1{capsu Benzonatat 200 MG 200 MG 12-17 le_as_n e 200 MG 00:00: 00:00 eeded} 00 :00 Benzonatate Benzonatate 0 2- No 1{capsu Benzonatat 200 MG 200 MG 12-17 le_as_n e 200 MG 00:00: 00:00 eeded} 00 :00 Benzonatate Benzonatate 0 2- No 1{capsu Benzonatat 200 MG 200 MG 12-17 le_as_n e 200 MG 00:00: 00:00 eeded} 00 :00 Benzonatate Benzonatate 2021-0 2- No 1{capsu Benzonatat 200 MG 200 MG 12-17 le_as_n e 200 MG 00:00: 00:00 eeded} 00 :00 Benzonatate Benzonatate 2021-0 2- No 1{capsu Benzonatat 200 MG 200 MG 12-17 le_as_n e 200 MG 00:00: 00:00 eeded} 00 :00 Benzonatate Benzonatate 2021-0 2- No 1{capsu Benzonatat 200 MG 200 MG 12-17 le_as_n e 200 MG 00:00: 00:00 eeded} 00 :00 Benzonatate Benzonatate 2021-0 2- No 1{capsu Benzonatat 200 MG 200 MG 11-10 le_as_n e 200 MG 00:00: 00:00 eeded} 00 :00 Benzonatate Benzonatate 2021-0 2- No 1{capsu Benzonatat 200 MG 200 MG 11-10 le_as_n e 200 MG 00:00: 00:00 eeded} 00 :00 Benzonatate Benzonatate 2021-0 2- No 1{capsu Benzonatat 200 MG 200 MG 11-10 le_as_n e 200 MG 00:00: 00:00 eeded} 00 :00 Benzonatate Benzonatate 2021-2021- No 1{capsu Benzonatat 200 MG 200 MG 11-10 le_as_n e 200 MG 00:00: 00:00 eeded} 00 :00 Cefdinir Cefdinir 2021-0 2021- No Cefdinir 300 MG 300 MG 11-10 300 MG 00:00: 00:00 00 :00 Cefdinir Cefdinir 2021-0 2021- No Cefdinir 300 MG 300 MG 11-10 300 MG 00:00: 00:00 00 :00 Cefdinir Cefdinir 2021-0 2021- No Cefdinir 300 MG 300 MG 11-10 300 MG 00:00: 00:00 00 :00 Cefdinir Cefdinir 2021-0 2021- No Cefdinir 300 MG 300 MG 10-08 300 MG 00:00: 00:00 00 :00 Cefdinir Cefdinir 2021-0 2021- No Cefdinir 300 MG 300 MG 10-08 300 MG 00:00: 00:00 00 :00 Cefdinir Cefdinir 2021-0 2021- No Cefdinir 300 MG 300 MG 10-08 300 MG 00:00: 00:00 00 :00 Cefdinir Cefdinir 2021-0 2021- No Cefdinir 300 MG 300 MG 10-08 300 MG 00:00: 00:00 00 :00 predniSONE predniSONE 2021-0 2021- No QD predniSONE 20 MG 20 MG 10-08 20 MG 00:00: 00:00 00 :00 predniSONE predniSONE 2021-0 2021- No QD predniSONE 20 MG 20 MG 10-08 20 MG 00:00: 00:00 00 :00 predniSONE predniSONE 2021-0 2021- No QD predniSONE 20 MG 20 MG 10-08 20 MG 00:00: 00:00 00 :00 predniSONE predniSONE 2021-0 2- No QD predniSONE 20 MG 20 MG 10-08 20 MG 00:00: 00:00 00 :00 Octreotide Octreotide 2021-0 2021- No 1{ml} Octreotide Acetate 20 Acetate 20 08-28 Acetate 20 MG MG 00:00: 00:00 MG 00 :00 Octreotide Octreotide 2021-0 2- No 1{ml} Octreotide Acetate 20 Acetate 20 08-28 Acetate 20 MG MG 00:00: 00:00 MG 00 :00 Octreotide Octreotide 2021-0 2- No 1{ml} Octreotide Acetate 20 Acetate 20 08-28 Acetate 20 MG MG 00:00: 00:00 MG 00 :00 Octreotide Octreotide 2021-0 2- No 1{ml} Octreotide Acetate 20 Acetate 20 08-28 Acetate 20 MG MG 00:00: 00:00 MG 00 :00 Octreotide Octreotide 2021-0 2021- No 1{ml} Octreotide Acetate 20 Acetate 20 08-28 Acetate 20 MG MG 00:00: 00:00 MG 00 :00 DULoxetine DULoxetine 2021-0 No 1{capsu QD DULoxetine HCl 60 MG HCl 60 MG 6- le} HCl 60 MG 00:00: 00 DULoxetine DULoxetine 2021-0 No 1{capsu QD DULoxetine HCl 60 MG HCl 60 MG 6- le} HCl 60 MG 00:00: 00 DULoxetine DULoxetine 2021-0 No 1{capsu QD DULoxetine HCl 60 MG HCl 60 MG 6- le} HCl 60 MG 00:00: 00 DULoxetine DULoxetine 2021-0 No 1{capsu QD DULoxetine HCl 60 MG HCl 60 MG 6- le} HCl 60 MG 00:00: 00 DULoxetine DULoxetine 2021-0 No 1{capsu QD DULoxetine HCl 60 MG HCl 60 MG 6- le} HCl 60 MG 00:00: 00 DULoxetine DULoxetine 2021-0 No 1{capsu QD DULoxetine HCl 60 MG HCl 60 MG 6- le} HCl 60 MG 00:00: 00 DULoxetine DULoxetine 2021-0 No 1{capsu QD DULoxetine HCl 60 MG HCl 60 MG 6- le} HCl 60 MG 00:00: 00 DULoxetine DULoxetine 2021-0 No 1{capsu QD DULoxetine HCl 60 MG HCl 60 MG 6- le} HCl 60 MG 00:00: 00 DULoxetine DULoxetine 2021-0 No 1{capsu QD DULoxetine HCl 60 MG HCl 60 MG 6-01 le} HCl 60 MG 00:00: 00 DULoxetine DULoxetine 2-0 No 1{capsu QD DULoxetine HCl 60 MG HCl 60 MG 6- le} HCl 60 MG 00:00: 00 DULoxetine DULoxetine 2-0 No 1{capsu QD DULoxetine HCl 60 MG HCl 60 MG 6- le} HCl 60 MG 00:00: 00 DULoxetine DULoxetine 2-0 No 1{capsu QD DULoxetine HCl 60 MG HCl 60 MG 6- le} HCl 60 MG 00:00: 00 DULoxetine DULoxetine 2-0 No 1{capsu QD DULoxetine HCl 60 MG HCl 60 MG 6- le} HCl 60 MG 00:00: 00 DULoxetine DULoxetine 2-0 No 1{capsu QD DULoxetine HCl 60 MG HCl 60 MG 6- le} HCl 60 MG 00:00: 00 DULoxetine DULoxetine 2-0 No 1{capsu QD DULoxetine HCl 60 MG HCl 60 MG 6- le} HCl 60 MG 00:00: 00 DULoxetine DULoxetine 2-0 No 1{capsu QD DULoxetine HCl 60 MG HCl 60 MG 6- le} HCl 60 MG 00:00: 00 DULoxetine DULoxetine 2-0 No 1{capsu QD DULoxetine HCl 60 MG HCl 60 MG 6- le} HCl 60 MG 00:00: 00 DULoxetine DULoxetine 2-0 No 1{capsu QD DULoxetine HCl 60 MG HCl 60 MG 6- le} HCl 60 MG 00:00: 00 DULoxetine DULoxetine 2-0 No 1{capsu QD DULoxetine HCl 60 MG HCl 60 MG 6- le} HCl 60 MG 00:00: 00 DULoxetine DULoxetine 2-0 No 1{capsu QD DULoxetine HCl 60 MG HCl 60 MG 6- le} HCl 60 MG 00:00: 00 DULoxetine DULoxetine 2-0 No 1{capsu QD DULoxetine HCl 60 MG HCl 60 MG 6- le} HCl 60 MG 00:00: 00 DULoxetine DULoxetine 2-0 No 1{capsu QD DULoxetine HCl 30 MG HCl 30 MG 5-25 le} HCl 30 MG 00:00: 00 DULoxetine DULoxetine 2-0 No 1{capsu QD DULoxetine HCl 30 MG HCl 30 MG 5-25 le} HCl 30 MG 00:00: 00 DULoxetine DULoxetine 0 No 1{capsu QD DULoxetine HCl 30 MG HCl 30 MG 5-25 le} HCl 30 MG 00:00: 00 DULoxetine DULoxetine 2021-0 No 1{capsu QD DULoxetine HCl 30 MG HCl 30 MG 5-25 le} HCl 30 MG 00:00: 00 DULoxetine DULoxetine 2021-0 No 1{capsu QD DULoxetine HCl 30 MG HCl 30 MG 5-25 le} HCl 30 MG 00:00: 00 traMADoL 50 2021-0 Yes 4647 50mg Take 1 Univ ers mg tablet 5-09 tablet by ity o f 00:00: mouth [place] 00 every 6 Medical (six) Branch hours as needed for Pain (scale 7-10). Indication s: acute pain methylPREDN methylPREDN 2021-2021- No QD methylPRED ISolone 4 ISolone 4 -05 03-10 NISolone 4 MG MG 00:00: 00:00 MG 00 :00 methylPREDN methylPREDN 2021-0 2021- No QD methylPRED ISolone 4 ISolone 4 -05 03- NISolone 4 MG MG 00:00: 00:00 MG 00 :00 methylPREDN methylPREDN 2021-0 2021- No QD methylPRED ISolone 4 ISolone 4 -05 03-10 NISolone 4 MG MG 00:00: 00:00 MG 00 :00 Benzonatate Benzonatate 2021-0 2021- No 1{capsu Benzonatat 100 MG 100 MG 05-28 le_as_n e 100 MG 00:00: 00:00 eeded} 00 :00 Cefdinir Cefdinir 2021-0 2021- No Cefdinir 300 MG 300 MG 05-28 300 MG 00:00: 00:00 00 :00 methylPREDN methylPREDN 2021-0 2021- No QD methylPRED ISolone 4 ISolone 4 05-28 NISolone 4 MG MG 00:00: 00:00 MG 00 :00 EPINEPHrine EPINEPHrine 2021-0 No EPINEPHrin 0.3 0.3 1-14 e 0.3 MG/0.3ML MG/0.3ML 00:00: MG/0.3ML 00 Ipratropium Ipratropium 2021-0 No 3{ml_as QID Ipratropiu -Albuterol -Albuterol 1-14 _needed m-Albutero 0.5-2.5 (3) 0.5-2.5 (3) 00:00: } l 0.5-2.5 MG/3ML MG/3ML 00 (3) MG/3ML EPINEPHrine EPINEPHrine 2022-0 No EPINEPHrin 0.3 0.3 1-14 e 0.3 MG/0.3ML MG/0.3ML 00:00: MG/0.3ML 00 Ipratropium Ipratropium 2022-0 No 3{ml_as QID Ipratropiu -Albuterol -Albuterol 1-14 _needed m-Albutero 0.5-2.5 (3) 0.5-2.5 (3) 00:00: } l 0.5-2.5 MG/3ML MG/3ML 00 (3) MG/3ML EPINEPHrine EPINEPHrine 2021-0 No EPINEPHrin 0.3 0.3 1-14 e 0.3 MG/0.3ML MG/0.3ML 00:00: MG/0.3ML 00 Ipratropium Ipratropium 2022-0 No 3{ml_as QID Ipratropiu -Albuterol -Albuterol 1-14 _needed m-Albutero 0.5-2.5 (3) 0.5-2.5 (3) 00:00: } l 0.5-2.5 MG/3ML MG/3ML 00 (3) MG/3ML Ipratropium Ipratropium 2022-0 No 3{ml_as QID Ipratropiu -Albuterol -Albuterol 1-14 _needed m-Albutero 0.5-2.5 (3) 0.5-2.5 (3) 00:00: } l 0.5-2.5 MG/3ML MG/3ML 00 (3) MG/3ML EPINEPHrine EPINEPHrine 2022-0 No EPINEPHrin 0.3 0.3 1-14 e 0.3 MG/0.3ML MG/0.3ML 00:00: MG/0.3ML 00 Ipratropium Ipratropium 2022-0 No 3{ml_as QID Ipratropiu -Albuterol -Albuterol 1-14 _needed m-Albutero 0.5-2.5 (3) 0.5-2.5 (3) 00:00: } l 0.5-2.5 MG/3ML MG/3ML 00 (3) MG/3ML EPINEPHrine EPINEPHrine 2021-0 No EPINEPHrin 0.3 0.3 1-14 e 0.3 MG/0.3ML MG/0.3ML 00:00: MG/0.3ML 00 Ipratropium Ipratropium 2021-0 No 3{ml_as QID Ipratropiu -Albuterol -Albuterol 1-14 _needed m-Albutero 0.5-2.5 (3) 0.5-2.5 (3) 00:00: } l 0.5-2.5 MG/3ML MG/3ML 00 (3) MG/3ML EPINEPHrine EPINEPHrine 0 No EPINEPHrin 0.3 0.3 1-14 e 0.3 MG/0.3ML MG/0.3ML 00:00: MG/0.3ML 00 Ipratropium Ipratropium 2021-0 No 3{ml_as QID Ipratropiu -Albuterol -Albuterol 1-14 _needed m-Albutero 0.5-2.5 (3) 0.5-2.5 (3) 00:00: } l 0.5-2.5 MG/3ML MG/3ML 00 (3) MG/3ML EPINEPHrine EPINEPHrine 2021-0 No EPINEPHrin 0.3 0.3 1-14 e 0.3 MG/0.3ML MG/0.3ML 00:00: MG/0.3ML 00 Ipratropium Ipratropium 2021-0 No 3{ml_as QID Ipratropiu -Albuterol -Albuterol 1-14 _needed m-Albutero 0.5-2.5 (3) 0.5-2.5 (3) 00:00: } l 0.5-2.5 MG/3ML MG/3ML 00 (3) MG/3ML EPINEPHrine EPINEPHrine 2022-0 No EPINEPHrin 0.3 0.3 1-14 e 0.3 MG/0.3ML MG/0.3ML 00:00: MG/0.3ML 00 Ipratropium Ipratropium 2021-0 No 3{ml_as QID Ipratropiu -Albuterol -Albuterol 1-14 _needed m-Albutero 0.5-2.5 (3) 0.5-2.5 (3) 00:00: } l 0.5-2.5 MG/3ML MG/3ML 00 (3) MG/3ML EPINEPHrine EPINEPHrine 0 No EPINEPHrin 0.3 0.3 1-14 e 0.3 MG/0.3ML MG/0.3ML 00:00: MG/0.3ML 00 Ipratropium Ipratropium 2021-0 No 3{ml_as QID Ipratropiu -Albuterol -Albuterol 1-14 _needed m-Albutero 0.5-2.5 (3) 0.5-2.5 (3) 00:00: } l 0.5-2.5 MG/3ML MG/3ML 00 (3) MG/3ML EPINEPHrine EPINEPHrine 0 No EPINEPHrin 0.3 0.3 1-14 e 0.3 MG/0.3ML MG/0.3ML 00:00: MG/0.3ML 00 Ipratropium Ipratropium 2021-0 No 3{ml_as QID Ipratropiu -Albuterol -Albuterol 1-14 _needed m-Albutero 0.5-2.5 (3) 0.5-2.5 (3) 00:00: } l 0.5-2.5 MG/3ML MG/3ML 00 (3) MG/3ML EPINEPHrine EPINEPHrine 0 No EPINEPHrin 0.3 0.3 1-14 e 0.3 MG/0.3ML MG/0.3ML 00:00: MG/0.3ML 00 Ipratropium Ipratropium 2021-0 No 3{ml_as QID Ipratropiu -Albuterol -Albuterol 1-14 _needed m-Albutero 0.5-2.5 (3) 0.5-2.5 (3) 00:00: } l 0.5-2.5 MG/3ML MG/3ML 00 (3) MG/3ML EPINEPHrine EPINEPHrine 2021-0 No EPINEPHrin 0.3 0.3 1-14 e 0.3 MG/0.3ML MG/0.3ML 00:00: MG/0.3ML 00 Ipratropium Ipratropium 2021-0 No 3{ml_as QID Ipratropiu -Albuterol -Albuterol 1-14 _needed m-[place]butero 0.5-2.5 (3) 0.5-2.5 (3) 00:00: } l 0.5-2.5 MG/3ML MG/3ML 00 (3) MG/3ML EPINEPHrine EPINEPHrine 2021-0 No EPINEPHrin 0.3 0.3 1-14 e 0.3 MG/0.3ML MG/0.3ML 00:00: MG/0.3ML 00 Ipratropium Ipratropium 2021-0 No 3{ml_as QID Ipratropiu -Albuterol -Albuterol 1-14 _needed m-Albutero 0.5-2.5 (3) 0.5-2.5 (3) 00:00: } l 0.5-2.5 MG/3ML MG/3ML 00 (3) MG/3ML EPINEPHrine EPINEPHrine 2021-0 No EPINEPHrin 0.3 0.3 1-14 e 0.3 MG/0.3ML MG/0.3ML 00:00: MG/0.3ML 00 Ipratropium Ipratropium 2021-0 No 3{ml_as QID Ipratropiu -Albuterol -Albuterol 1-14 _needed m-Albutero 0.5-2.5 (3) 0.5-2.5 (3) 00:00: } l 0.5-2.5 MG/3ML MG/3ML 00 (3) MG/3ML EPINEPHrine EPINEPHrine 2021-0 No EPINEPHrin 0.3 0.3 1-14 e 0.3 MG/0.3ML MG/0.3ML 00:00: MG/0.3ML 00 EPINEPHrine EPINEPHrine 2021-0 No EPINEPHrin 0.3 0.3 1-14 e 0.3 MG/0.3ML MG/0.3ML 00:00: MG/0.3ML 00 Ipratropium Ipratropium 2021-0 No 3{ml_as QID Ipratropiu -Albuterol -Albuterol 1-14 _needed m-Albutero 0.5-2.5 (3) 0.5-2.5 (3) 00:00: } l 0.5-2.5 MG/3ML MG/3ML 00 (3) MG/3ML EPINEPHrine EPINEPHrine 2021-0 No EPINEPHrin 0.3 0.3 1-14 e 0.3 MG/0.3ML MG/0.3ML 00:00: MG/0.3ML 00 Ipratropium Ipratropium 2021-0 No 3{ml_as QID Ipratropiu -Albuterol -Albuterol 1-14 _needed m-Albutero 0.5-2.5 (3) 0.5-2.5 (3) 00:00: } l 0.5-2.5 MG/3ML MG/3ML 00 (3) MG/3ML EPINEPHrine EPINEPHrine 2021-0 No EPINEPHrin 0.3 0.3 1-14 e 0.3 MG/0.3ML MG/0.3ML 00:00: MG/0.3ML 00 Ipratropium Ipratropium 2021-0 No 3{ml_as QID Ipratropiu -Albuterol -Albuterol 1-14 _needed m-Albutero 0.5-2.5 (3) 0.5-2.5 (3) 00:00: } l 0.5-2.5 MG/3ML MG/3ML 00 (3) MG/3ML EPINEPHrine EPINEPHrine 2021-0 No EPINEPHrin 0.3 0.3 1-14 e 0.3 MG/0.3ML MG/0.3ML 00:00: MG/0.3ML 00 Ipratropium Ipratropium 2021-0 No 3{ml_as QID Ipratropiu -Albuterol -Albuterol 1-14 _needed m-Albutero 0.5-2.5 (3) 0.5-2.5 (3) 00:00: } l 0.5-2.5 MG/3ML MG/3ML 00 (3) MG/3ML EPINEPHrine EPINEPHrine 2021-0 No EPINEPHrin 0.3 0.3 1-14 e 0.3 MG/0.3ML MG/0.3ML 00:00: MG/0.3ML 00 Ipratropium Ipratropium 2-0 No 3{ml_as QID Ipratropiu -Albuterol -Albuterol 1-14 _needed m-Albutero 0.5-2.5 (3) 0.5-2.5 (3) 00:00: } l 0.5-2.5 MG/3ML MG/3ML 00 (3) MG/3ML Ipratropium Ipratropium 2-0 No 3{ml_as QID Ipratropiu -Albuterol -Albuterol 1-14 _needed m-Albutero 0.5-2.5 (3) 0.5-2.5 (3) 00:00: } l 0.5-2.5 MG/3ML MG/3ML 00 (3) MG/3ML EPINEPHrine EPINEPHrine 2021-0 No EPINEPHrin 0.3 0.3 1-14 e 0.3 MG/0.3ML MG/0.3ML 00:00: MG/0.3ML 00 Ipratropium Ipratropium 2-0 No 3{ml_as QID Ipratropiu -Albuterol -Albuterol 1-14 _needed m-Albutero 0.5-2.5 (3) 0.5-2.5 (3) 00:00: } l 0.5-2.5 MG/3ML MG/3ML 00 (3) MG/3ML EPINEPHrine EPINEPHrine 2021-0 No EPINEPHrin 0.3 0.3 1-14 e 0.3 MG/0.3ML MG/0.3ML 00:00: MG/0.3ML 00 Ipratropium Ipratropium 2-0 No 3{ml_as QID Ipratropiu -Albuterol -Albuterol 1-14 _needed m-Albutero 0.5-2.5 (3) 0.5-2.5 (3) 00:00: } l 0.5-2.5 MG/3ML MG/3ML 00 (3) MG/3ML EPINEPHrine EPINEPHrine 2021-0 No EPINEPHrin 0.3 0.3 1-14 e 0.3 MG/0.3ML MG/0.3ML 00:00: MG/0.3ML 00 Ipratropium Ipratropium 2-0 No 3{ml_as QID Ipratropiu -Albuterol -Albuterol 1-14 _needed m-Albutero 0.5-2.5 (3) 0.5-2.5 (3) 00:00: } l 0.5-2.5 MG/3ML MG/3ML 00 (3) MG/3ML EPINEPHrine EPINEPHrine 2021-0 No EPINEPHrin 0.3 0.3 1-14 e 0.3 MG/0.3ML MG/0.3ML 00:00: MG/0.3ML 00 EPINEPHrine EPINEPHrine 2021-0 No EPINEPHrin 0.3 0.3 1-14 e 0.3 MG/0.3ML MG/0.3ML 00:00: MG/0.3ML 00 Ipratropium Ipratropium 2-0 No 3{ml_as QID Ipratropiu -Albuterol -Albuterol 1-14 _needed m-Albutero 0.5-2.5 (3) 0.5-2.5 (3) 00:00: } l 0.5-2.5 MG/3ML MG/3ML 00 (3) MG/3ML EPINEPHrine EPINEPHrine 2-0 No EPINEPHrin 0.3 0.3 1-14 e 0.3 MG/0.3ML MG/0.3ML 00:00: MG/0.3ML 00 Ipratropium Ipratropium 2022-0 No 3{ml_as QID Ipratropiu -Albuterol -Albuterol 1-14 _needed m-Albutero 0.5-2.5 (3) 0.5-2.5 (3) 00:00: } l 0.5-2.5 MG/3ML MG/3ML 00 (3) MG/3ML Ipratropium Ipratropium 2022-0 No 3{ml_as QID Ipratropiu -Albuterol -Albuterol 1-14 _needed m-Albutero 0.5-2.5 (3) 0.5-2.5 (3) 00:00: } l 0.5-2.5 MG/3ML MG/3ML 00 (3) MG/3ML EPINEPHrine EPINEPHrine 2-0 No EPINEPHrin 0.3 0.3 1-14 e 0.3 MG/0.3ML MG/0.3ML 00:00: MG/0.3ML 00 Ipratropium Ipratropium 2-0 No 3{ml_as QID Ipratropiu -Albuterol -Albuterol 1-14 _needed m-Albutero 0.5-2.5 (3) 0.5-2.5 (3) 00:00: } l 0.5-2.5 MG/3ML MG/3ML 00 (3) MG/3ML EPINEPHrine EPINEPHrine 2-0 No EPINEPHrin 0.3 0.3 1-14 e 0.3 MG/0.3ML MG/0.3ML 00:00: MG/0.3ML 00 Ipratropium Ipratropium 2022-0 No 3{ml_as QID Ipratropiu -Albuterol -Albuterol 1-14 _needed m-Albutero 0.5-2.5 (3) 0.5-2.5 (3) 00:00: } l 0.5-2.5 MG/3ML MG/3ML 00 (3) MG/3ML EPINEPHrine EPINEPHrine 2-0 No EPINEPHrin 0.3 0.3 1-14 e 0.3 MG/0.3ML MG/0.3ML 00:00: MG/0.3ML 00 Ipratropium Ipratropium 2022-0 No 3{ml_as QID Ipratropiu -Albuterol -Albuterol 1-14 _needed m-Albutero 0.5-2.5 (3) 0.5-2.5 (3) 00:00: } l 0.5-2.5 MG/3ML MG/3ML 00 (3) MG/3ML EPINEPHrine EPINEPHrine 0 No EPINEPHrin 0.3 0.3 1-14 e 0.3 MG/0.3ML MG/0.3ML 00:00: MG/0.3ML 00 EPINEPHrine EPINEPHrine 2021-0 No EPINEPHrin 0.3 0.3 1-14 e 0.3 MG/0.3ML MG/0.3ML 00:00: MG/0.3ML 00 Ipratropium Ipratropium 2021-0 No 3{ml_as QID Ipratropiu -Albuterol -Albuterol 1-14 _needed m-Albutero 0.5-2.5 (3) 0.5-2.5 (3) 00:00: } l 0.5-2.5 MG/3ML MG/3ML 00 (3) MG/3ML EPINEPHrine EPINEPHrine 0 No EPINEPHrin 0.3 0.3 1-14 e 0.3 MG/0.3ML MG/0.3ML 00:00: MG/0.3ML 00 Ipratropium Ipratropium 2021-0 No 3{ml_as QID Ipratropiu -Albuterol -Albuterol 1-14 _needed m-Albutero 0.5-2.5 (3) 0.5-2.5 (3) 00:00: } l 0.5-2.5 MG/3ML MG/3ML 00 (3) MG/3ML EPINEPHrine EPINEPHrine 0 No EPINEPHrin 0.3 0.3 1-14 e 0.3 MG/0.3ML MG/0.3ML 00:00: MG/0.3ML 00 Ipratropium Ipratropium 2021-0 No 3{ml_as QID Ipratropiu -Albuterol -Albuterol 1-14 _needed m-Albutero 0.5-2.5 (3) 0.5-2.5 (3) 00:00: } l 0.5-2.5 MG/3ML MG/3ML 00 (3) MG/3ML EPINEPHrine EPINEPHrine 2022-0 No EPINEPHrin 0.3 0.3 1-14 e 0.3 MG/0.3ML MG/0.3ML 00:00: MG/0.3ML 00 Ipratropium Ipratropium 2021-0 No 3{ml_as QID Ipratropiu -Albuterol -Albuterol 1-14 _needed m-Albutero 0.5-2.5 (3) 0.5-2.5 (3) 00:00: } l 0.5-2.5 MG/3ML MG/3ML 00 (3) MG/3ML EPINEPHrine EPINEPHrine 2021-0 No EPINEPHrin 0.3 0.3 1-14 e 0.3 MG/0.3ML MG/0.3ML 00:00: MG/0.3ML 00 Ipratropium Ipratropium 2021-0 No 3{ml_as QID Ipratropiu -Albuterol -Albuterol 1-14 _needed m-Albutero 0.5-2.5 (3) 0.5-2.5 (3) 00:00: } l 0.5-2.5 MG/3ML MG/3ML 00 (3) MG/3ML EPINEPHrine EPINEPHrine 2021-0 No EPINEPHrin 0.3 0.3 1-14 e 0.3 MG/0.3ML MG/0.3ML 00:00: MG/0.3ML 00 Ipratropium Ipratropium 2-0 No 3{ml_as QID Ipratropiu -Albuterol -Albuterol 1-14 _needed m-Albutero 0.5-2.5 (3) 0.5-2.5 (3) 00:00: } l 0.5-2.5 MG/3ML MG/3ML 00 (3) MG/3ML Ipratropium Ipratropium 2-0 No 3{ml_as QID Ipratropiu -Albuterol -Albuterol 1-14 _needed m-Albutero 0.5-2.5 (3) 0.5-2.5 (3) 00:00: } l 0.5-2.5 MG/3ML MG/3ML 00 (3) MG/3ML EPINEPHrine EPINEPHrine 2022-0 No EPINEPHrin 0.3 0.3 1-14 e 0.3 MG/0.3ML MG/0.3ML 00:00: MG/0.3ML 00 Ipratropium Ipratropium 2021-0 No 3{ml_as QID Ipratropiu -Albuterol -Albuterol 1-14 _needed m-Albutero 0.5-2.5 (3) 0.5-2.5 (3) 00:00: } l 0.5-2.5 MG/3ML MG/3ML 00 (3) MG/3ML EPINEPHrine EPINEPHrine 2021-0 No EPINEPHrin 0.3 0.3 1-14 e 0.3 MG/0.3ML MG/0.3ML 00:00: MG/0.3ML 00 Ipratropium Ipratropium 2021-0 No 3{ml_as QID Ipratropiu -Albuterol -Albuterol 1-14 _needed m-Albutero 0.5-2.5 (3) 0.5-2.5 (3) 00:00: } l 0.5-2.5 MG/3ML MG/3ML 00 (3) MG/3ML EPINEPHrine EPINEPHrine 2021-0 No EPINEPHrin 0.3 0.3 1-14 e 0.3 MG/0.3ML MG/0.3ML 00:00: MG/0.3ML 00 Ipratropium Ipratropium 2021-0 No 3{ml_as QID Ipratropiu -Albuterol -Albuterol 1-14 _needed m-Albutero 0.5-2.5 (3) 0.5-2.5 (3) 00:00: } l 0.5-2.5 MG/3ML MG/3ML 00 (3) MG/3ML EPINEPHrine EPINEPHrine 2021-0 No EPINEPHrin 0.3 0.3 1-14 e 0.3 MG/0.3ML MG/0.3ML 00:00: MG/0.3ML 00 EPINEPHrine EPINEPHrine 2021-0 No EPINEPHrin 0.3 0.3 1-14 e 0.3 MG/0.3ML MG/0.3ML 00:00: MG/0.3ML 00 Ipratropium Ipratropium No 3{ml_as QID Ipratropiu -Albuterol -Albuterol 1-14 _needed m-Albutero 0.5-2.5 (3) 0.5-2.5 (3) 00:00: } l 0.5-2.5 MG/3ML MG/3ML 00 (3) MG/3ML EPINEPHrine EPINEPHrine No EPINEPHrin 0.3 0.3 1-14 e 0.3 MG/0.3ML MG/0.3ML 00:00: MG/0.3ML 00 Ipratropium Ipratropium No 3{ml_as QID Ipratropiu -Albuterol -Albuterol 1-14 _needed m-Albutero 0.5-2.5 (3) 0.5-2.5 (3) 00:00: } l 0.5-2.5 MG/3ML MG/3ML 00 (3) MG/3ML ascorbic 2020-03 Yes 500mg Take 500 Univ ers acid, 2-14 mg by ity of vitamin C, 16:37: mouth [place] 500 mg 13 daily. Medical tablet Branch aspirin 81 2020-03 Yes 81mg Take 81 mg U nivers mg EC 2-14 by mouth ity of tablet 16:37: daily. [place] [id number] Medical Branch Cholecalcif 2020-03 Yes Take by Uni vers mechelle, 2-14 mouth ity of Vitamin D3, 16:37: daily. [place] s 1,000 unit Medical capsule Branch Magnesium 2020-03 Yes Take by Unive rs Oxide 500 2-14 mouth ity of mg Tab 16:37: daily. [place] [id number] Medical Branch insulin 2020-03 Yes Inject as Unive rs regular, 2-14 directed ity of human 16:37: as needed. [place] (NOVOLIN R 13 Medical INJECTION) Branch zinc 2020-03 Yes Take by Univers sulfate 2-14 mouth. ity of (ZINC-15 16:37: [place] ORAL) Medical Branch citalopram 2020-03 Yes 20mg Take 20 mg U nivers 20 mg 2-14 by mouth ity of tablet 16:37: daily. [place] [address] Medical Branch ascorbic 2020-03 Yes 500mg Take 500 Univ ers acid, 2-14 mg by ity of vitamin C, 16:37: mouth [place] 500 mg 13 daily. Medical tablet Branch aspirin 81 2020-03 Yes 81mg Take 81 mg U nivers mg EC 2-14 by mouth ity of tablet 16:37: daily. [place] [address] Medical Branch Cholecalcif 2020-03 Yes Take by Uni vers mechelle, 2-14 mouth ity of Vitamin D3, 16:37: [place]. [place] 1[place]000 [place] 13 Medical capsule Branch Magnesium 2020-03 Yes Take by Unive rs Oxide 500 2-14 mouth ity of mg Tab 16:37: daily. [place] [address] Medical Branch insulin 2020-03 Yes Inject as Unive rs regular, 2-14 directed ity of human 16:37: as needed. [place] (NOVOLIN R 13 Medical INJECTION) Branch zinc 2020-03 Yes Take by Univers sulfate 2-14 mouth. ity of (ZINC-15 16:37: [place] ORAL) Medical Branch citalopram 2020-03 Yes 20mg Take 20 mg U nivers 20 mg 2-14 by mouth ity of tablet 16:37: daily. [place] [address] Medical Branch metoprolol 2020-03 Yes [id number] 25mg Take 1 Univers succinate 1-12 tablet by ity o f XL 25 mg 24 00:00: mouth [place] hr tablet 00 daily. Medical Branch metoprolol 2020-03 Yes [id number] 25mg Take 1 Univers succinate 1-12 tablet by ity o f XL 25 mg 24 00:00: mouth [place] hr tablet 00 daily. Medical Branch Citalopram Citalopram No 1{table QD Citalopram Hydrobromid Hydrobromid 9-15 t} Hydrobromi e 20 MG e 20 MG 00:00: de 20 MG 00 Metoprolol Metoprolol No 1{capsu QD Metoprolol Succinate Succinate 9-15 le} Succinate 25 MG 25 MG 00:00: 25 MG 00 Ferrous Yes [id number] 1{tbl} Take 1 U nivers Fumarate 9-10 tablet by ity of 324 mg (106 00:00: mouth 2 Manuel as mg iron) 00 (two) Medical Tab times Branch daily. Ferrous Yes [id number] 1{tbl} Take 1 U nivers Fumarate 9-10 tablet by ity of 324 mg (106 00:00: mouth 2 [place] as mg iron) 00 (two) Medical Tab times Branch daily. insulin NPH Yes [id number] 8U inject 8 Univers and regular 9-08 Units ity of human 70-30 00:00: under the [place] (NOVOLIN 00 skin 2 Medical 70/30 U-100 (two) Branch INSULIN) times 100 unit/mL daily (70-30) before injection breakfast and dinner. insulin NPH Yes [id number] 8U inject 8 Univers and regular 9-08 Units ity of human 70-30 00:00: [place] the [place] (NOVOLIN 00 skin 2 Medical 70/30 U-100 (two) Branch INSULIN) times 100 unit/mL daily (70-30) before injection breakfast and dinner. SERTraline Yes [id number] 100mg Take 1 [facility] 100 mg 9-06 tablet by ity of tablet 00:00: mouth daily. Medical Branch SERTraline Yes [id number] 100mg Take 1 [facility] 100 mg 9-06 tablet by ity of tablet 00:00: mouth daily. Medical Branch albuterol Yes [id number] 2{puff} Inhale 2 Univers 90 9-02 Puffs ity of mcg/actuati 00:00: every 6 [place] as on inhaler 00 (six) Medical hours as Branch needed for Wheezing or Shortness of Breath. albuterol Yes [id number] 2{puff} Inhale 2 Univers 90 9-02 Puffs ity of mcg/actuati 00:00: every 6 [place] as on inhaler 00 (six) Medical hours as Branch needed for Wheezing or Shortness of Breath. gabapentin Yes [id number] 200mg Take 2 Univers 100 mg 7-20 capsules ity of capsule 00:00: by mouth [place] 00 every Medical evening. Branch gabapentin Yes [id number] 200mg Take 2 Univers 100 mg 7-20 capsules ity of capsule 00:00: by mouth 00 every Medical evening. Branch Methylcellu Yes [id number] 17g Take 17 g Univers lose, with 1-27 by mouth ity o f Sugar, 00:00: daily. [place] (CITRUCEL, 00 Medical SUCROSE,) Branch powder Methylcellu Yes [id number] 17g Take 17 g Univers lose, with 1-27 by mouth ity o f Sugar, 00:00: daily. [place] (CITRUCEL, 00 Medical SUCROSE,) Branch powder Belsomra Belsomra Yes Pricila 1 tablet Common 7-24 [place] at bedtime Spir it 00:00: as needed - [facility] 00 [facility] BusPIRone BusPIRone Yes Pricila 1 tablet Common HCl HCl 6-10 [place] as needed Spiri t 00:00: for - [facility] 00 anxiety [facility] Trazodone Trazodone Yes Pricila 1/2 to 1 Common HCl HCl 6-10 [place] tablet at Spiri t 00:00: bedtime as - [facility] 00 needed for [facility] Ventolin Ventolin Yes Pricila 2 puffs as Common HFA HFA 3-19 [place] needed for Spir it 00:00: sob/wheezi - [facility] 00 ng [facility] amitriptyli 2016- Yes 5mg Take [address] [facility] (ELAVIL) 9-20 by mouth Luke s 10 MG 15:27: every Medical tablet 03 night as Center needed . busPIRone 0 Yes 15mg Q.5D Take [address] [facility] [address] [facility] (BUSPAR) 15 9-20 by mouth 2 Dora kes MG tablet 15:27: (two) Medical 03 times Center daily. citalopram 2017 Yes 40mg QD Take [address] (CELEXA) 40 9-20 by mouth Luke s MG tablet 15:27: daily. Medica l 03 Center cyclobenzap 2017 Yes 5mg Take [address] rine 9-20 by mouth 3 [facility] (FLEXERIL) 15:27: (three) Medi jorge l 5 MG tablet 03 times Center daily as needed for Muscle spasms. gabapentin 2017-0 Yes 300mg Q.5D Take [address] (NEURONTIN) 9-20 mg by [facility] 600 MG 15:27: mouth 2 Medical tablet 03 (two) Center times daily . simvastatin 2017-0 Yes 20mg QD Take [address] [facility] (ZOCOR) 20 9-20 by mouth [facility] MG tablet 15:27: nightly. Medi jorge l 03 Center insulin Yes 35U Inject 35 [facility] aspart 9-20 Units [facility] protamine-i 15:27: subcutaneo Medical nsulin 03 usly 2 Center aspart (two) (NOVOLOG times MIX 70/30) daily with 100 unit/mL breakfast (70-30) and Soln dinner. injection insulin Yes Inject [facility] aspart 9-20 subcutaneo [facility] (NOVOLOG) 15:27: usly 3 Medica l 100 unit/mL 03 (three) Cente r InPn times daily with meals. guaiFENesin Yes 200mg Take [address] (ROBITUSSIN 9-20 mg by [facility] ) 100 mg/5 15:27: mouth 3 Medi jorge l mL syrup 03 (three) Center times daily as needed for Cough. LORazepam Yes anxiety .5mg Take 0.[address] (ATIVAN) 9-20 mg by [facility] 0.5 MG 15:27: mouth Medical tablet 03 every 12 Center (twelve) hours as needed for Anxiety. clopidogrel Yes 75mg QD Take [address] [facility] (PLAVIX) 75 9-02 tablet (75 Dora kes mg tablet 00:00: mg total) Med ical 00 by mouth Center daily. pantoprazol Yes 40mg Q.5D Take [address] [facility] [facility] e 9-02 tablet (40 [facility] (PROTONIX) 00:00: mg total) Me dical 40 MG 00 by mouth 2 Center tablet (two) times daily. metFORMIN Yes Resume if [facility] (GLUCOPHAGE 801 you were Luke s ) 1000 MG 00:00: taking Medica l tablet 00 prior to Center admission. GoLYTELY Yes 240 mL, Memori a oral powder 7-06 PO, l for 16:28: Q10Min, [place] [facility] 00 Give jug ion for Colonoscop y, # 1 ea, 0 Refill(s), Pharmacy: [id number] GoLYTELY Yes 240 mL, Memori a oral powder 7-06 PO, l for 16:28: Q10Min, [place] [facility] 00 Give jug ion for Colonoscop y, # 1 ea, 0 Refill(s), Pharmacy: [facility] [id number] Octreotide Yes See Memoria 0.2 MG/ML 07-02 Instructio l Injectable 20:01: ns, 200 Herm kun Solution 00 microgram [Sandostati IM left n] gluteal muscle, # 1 box, 0 Refill(s), given to patient, Pt brought her own supply Octreotide Yes See Memoria 0.2 MG/ML 07-02 [...] Yes IM, q4wk, M emoria [place] 06 0 l 15:52: Refill(s) [place] 00 Docusate Yes 100 mg = 1 Mem oria Sodium 100 4-06 cap, PO, l MG Oral 15:52: BID, 0 [place] Capsule 00 Refill(s) [Colace] NovoLIN Yes SUB-Q, 0 Memori a 70/30 -06 Refill(s) l 15:52: [place] 00 Metformin Yes 1,000 mg = Me moria hydrochlori -06 1 tab, PO, l de 1000 MG 15:52: BID, 0 Elisa nn Oral Tablet 00 Refill(s) gabapentin Yes 300 mg = 1 M emoria 300 MG Oral 4-06 cap, PO, l Capsule 15:52: BID, # 90 Elisa nn 00 cap, 1 Refill(s) Famotidine Yes 20 mg = 1 Me moria 20 MG Oral 4-06 tab, PO, l Tablet 15:52: BID, # 6 [place] 00 tab, 0 Refill(s) Ondansetron 2017 Yes 4 mg = 1 Me moria 4 MG Oral 4-06 tab, PO, l Tablet 15:52: Q8H, 0 [place] [Zofran] 00 Refill(s) clopidogrel 2017 Yes 75 mg = 1 M emoria 75 MG Oral 4-06 tab, PO, l Tablet 15:52: Daily, 0 [place] [Plavix] 00 Refill(s) amitriptyli 2017 Yes 10 mg = 1 M emoria ne 10 mg 4-06 tab, PO, l oral tablet 15:52: Bedtime, # [place] 00 30 tab, 1 Refill(s) Omeprazole Yes 40 mg = 1 Me moria 40 MG 4-06 cap, PO, l Enteric 15:52: Daily, 0 [place] n Coated 00 Refill(s) Capsule [Prilosec] Cyclobenzap 2017 Yes 5 mg = 1 Me moria rine 4-06 tab, PO, l hydrochlori 15:52: TID, 0 Herm kun de 5 MG 00 Refill(s) Oral Tablet [Flexeril] Simvastatin Yes 20 mg = 1 M emoria 20 MG Oral 4-06 tab, PO, l Tablet 15:52: Bedtime, 0 Elisa nn [Zocor] 00 Refill(s) cholecalcif Yes 1,000 Memor ia mechelle 1000 4-06 IntlUnit = l intl units 15:52: 1 cap, PO, H ermann oral 00 Daily, 0 capsule Refill(s) Furosemide Yes 20 mg = 1 Me moria 20 MG Oral 4-06 tab, PO, l Tablet 15:52: Daily, 0 [place] [Lasix] 00 Refill(s) Insulin, 2017 Yes SUB-Q, Memoria Aspart, 4-06 TID-Before l Human 100 15:52: Meals, 0 Herm kun UNT/ML 00 Refill(s) Injectable Solution [NovoLog] Buspar Yes 15 mg, PO, Memor ia 4-06 BID, 0 l 15:52: Refill(s) [place] 00 Citalopram Yes 40 mg = 1 Me moria 40 MG Oral 4-06 tab, PO, l Tablet 15:52: Daily, 0 [place] [Celexa] 00 Refill(s) aspirin 81 Yes 81 mg = 1 Me moria mg tablet, 4-06 tab, PO, l enteric 15:52: Daily, # [place] n coated 00 90 tab, 3 Refill(s) Vitamin B Yes 1 tab, PO, Me moria Complex 4-06 Daily, 0 l oral tablet 15:52: Refill(s) H ermann 00 Fluticasone Yes INHALATION Memoria propionate 07-02 , BID, 0 l 0.05 15:52: Refill(s) [place] MG/ACTUAT 00 Dry Powder Inhaler Miralax Yes 17 gm, PO, Jim maya 07-02 Daily, 0 l 15:52: Refill(s) [place] 00 magnesium Yes 500 mg = 1 Me moria oxide 500 - tab, PO, l mg oral 15:52: Daily, 0 [place] n tablet 00 Refill(s) Tylenol Yes 500 mg, Memoria -06 PO, 0 l 15:52: Refill(s) [place] 00 200 ACTUAT Yes 2 puff, Jim maya Albuterol 07-02 INHALATION l 0.09 15:52: , Q4H, 0 [place] MG/ACTUAT 00 Refill(s) Dry Powder Inhaler ascorbic Yes 500 mg = 1 Mem oria acid 500 mg -06 tab, PO, l oral tablet 15:52: Daily, 0 [place] r[place] 00 Refill(s) Lorazepam Yes 0.5 mg = 1 Me moria 0.5 MG Oral -06 tab, PO, l Tablet 15:52: TID, 0 [place] [Ativan] 00 Refill(s) SandoSTATIN Yes IM, q4wk, M emoria LAR [place] 07-02 0 l 15:52: Refill(s) [place] 00 Docusate Yes 100 mg = 1 Mem oria Sodium 100 -06 cap, PO, l MG Oral 15:52: BID, 0 [place] Capsule 00 Refill(s) [Colace] NovoLIN Yes SUB-Q, 0 Memori a 70/30 4-06 Refill(s) l 15:52: [place] 00 Metformin 2017- Yes 1,000 mg = Me moria hydrochlori [...] tab, PO, l Tablet 15:52: Q8H, 0 [place] [Zofran] 00 Refill(s) clopidogrel Yes 75 mg = 1 M emoria 75 MG Oral 4-06 tab, PO, l Tablet 15:52: Daily, 0 [place] [Plavix] 00 Refill(s) amitriptyli 2017 Yes 10 [...] oral 00 Daily, 0 capsule Refill(s) Furosemide 2017-0 Yes 20 mg = 1 Me moria 20 MG Oral 4-06 tab, PO, l Tablet 15:52: Daily, 0 [place] [Lasix] 00 Refill(s) Insulin, Yes SUB-Q, Memoria Aspart, 4-06 TID-Before l Human 100 15:52: Meals, 0 Herm kun UNT/ML 00 Refill(s) Injectable Solution [NovoLog] Buspar Yes 15 mg, PO, Memor ia 4-06 BID, 0 l 15:52: Refill(s) [place] 00 Citalopram Yes 40 mg = 1 Me moria 40 MG Oral 4-06 tab, PO, l Tablet 15:52: Daily, 0 [place] [Celexa] 00 Refill(s) aspirin 81 Yes 81 mg = 1 Me moria mg tablet, 4-06 tab, PO, l enteric 15:52: Daily, # [place] n coated 00 90 tab, 3 Refill(s) Vitamin B Yes 1 tab, PO, Me moria Complex 4-06 Daily, 0 l oral tablet 15:52: Refill(s) H [place] 00 Fluticasone Yes INHALATION Memoria propionate 4-06 , BID, 0 l 0.05 15:52: Refill(s) [place] MG/ACTUAT 00 Dry Powder Inhaler Miralax Yes 17 gm, PO, Jim maya 4-06 Daily, 0 l 15:52: Refill(s) [place] magnesium Yes 500 mg = 1 Me moria oxide 500 -06 tab, PO, l mg oral 15:52: Daily, 0 [place] n tablet 00 Refill(s) Tylenol Yes 500 mg, Memoria 4-06 PO, 0 l 15:52: Refill(s) [place] 00 Vitamin B Vitamin B No Vitamin B Complex - Complex - Complex - Citalopram Citalopram No Citalopram Hydrobromid Hydrobromid Hydrobromi e 20 MG e 20 MG de 20 MG NovoLIN NovoLIN No NovoLIN 70/30 70/30 70/30 FlexPen FlexPen FlexPen (70-30) 100 (70-30) 100 (70-30) UNIT/ML UNIT/ML 100 UNIT/ML Citalopram Citalopram No Citalopram Hydrobromid Hydrobromid Hydrobromi e 40 MG e 40 MG de 40 MG Metoprolol Metoprolol No 1{capsu QD Metoprolol Succinate Succinate le} Succinate 25 MG 25 MG 25 MG Gabapentin Gabapentin No TID Gabapentin 300 MG 300 MG 300 MG Aspirin Aspirin No 1{table QD Aspirin Adult Low Adult Low t} Adult Low Strength 81 Strength 81 Strength MG MG 81 MG Gabapentin Gabapentin No Gabapentin 100 MG 100 MG 100 MG DULoxetine DULoxetine No 1{capsu QD DULoxetine HCl 60 MG HCl 60 MG le} HCl 60 MG Magnesium Magnesium No 1{table QD Magnesium 500 MG 500 MG t_with_ 500 MG a_meal} Ventolin Ventolin No Ventolin HFA 108 (90 HFA 108 (90 HFA 108 Base) Base) (90 Base) MCG/ACT MCG/ACT MCG/ACT Vitamin C Vitamin C No Vitamin C 500 MG 500 MG 500 MG Vitamin B Vitamin B No Vitamin B Complex - Complex - Complex - Citalopram Citalopram No Citalopram Hydrobromid Hydrobromid Hydrobromi e 20 MG e 20 MG de 20 MG NovoLIN NovoLIN No NovoLIN 70/30 70/30 70/30 FlexPen FlexPen FlexPen (70-30) 100 (70-30) 100 (70-30) UNIT/ML UNIT/ML 100 UNIT/ML Citalopram Citalopram No Citalopram Hydrobromid Hydrobromid Hydrobromi e 40 MG e 40 MG de 40 MG Metoprolol Metoprolol No 1{capsu QD Metoprolol Succinate Succinate le} Succinate 25 MG 25 MG 25 MG Gabapentin Gabapentin No TID Gabapentin 300 MG 300 MG 300 MG Aspirin Aspirin No 1{table QD Aspirin Adult Low Adult Low t} Adult Low Strength 81 Strength 81 Strength MG MG 81 MG Gabapentin Gabapentin No Gabapentin 100 MG 100 MG 100 MG DULoxetine DULoxetine No 1{capsu QD DULoxetine HCl 60 MG HCl 60 MG le} HCl 60 MG Citalopram Citalopram No Citalopram Hydrobromid Hydrobromid Hydrobromi e 20 MG e 20 MG de 20 MG Vitamin B Vitamin B No Vitamin B Complex - Complex - Complex - Gabapentin Gabapentin No TID Gabapentin 300 MG 300 MG 300 MG DULoxetine DULoxetine No 1{capsu QD DULoxetine HCl 60 MG HCl 60 MG le} HCl 60 MG Magnesium Magnesium No 1{table QD Magnesium 500 MG 500 MG t_with_ 500 MG a_meal} Ventolin Ventolin No Ventolin HFA 108 (90 HFA 108 (90 HFA 108 Base) Base) (90 Base) MCG/ACT MCG/ACT MCG/ACT Metoprolol Metoprolol No 1{capsu QD Metoprolol Succinate Succinate le} Succinate 25 MG 25 MG 25 MG Vitamin C Vitamin C No Vitamin C 500 MG 500 MG 500 MG Citalopram Citalopram No Citalopram Hydrobromid Hydrobromid Hydrobromi e 40 MG e 40 MG de 40 MG NovoLIN NovoLIN No NovoLIN 70/30 70/30 70/30 FlexPen FlexPen FlexPen (70-30) 100 (70-30) 100 (70-30) UNIT/ML UNIT/ML 100 UNIT/ML Aspirin Aspirin No 1{table QD Aspirin Adult Low Adult Low t} Adult Low Strength 81 Strength 81 Strength MG MG 81 MG Gabapentin Gabapentin No Gabapentin 100 MG 100 MG 100 MG Citalopram Citalopram No Citalopram Hydrobromid Hydrobromid Hydrobromi e 20 MG e 20 MG de 20 MG Vitamin B Vitamin B No Vitamin B Complex - Complex - Complex - Gabapentin Gabapentin No TID Gabapentin 300 MG 300 MG 300 MG DULoxetine DULoxetine No 1{capsu QD DULoxetine HCl 60 MG HCl 60 MG le} HCl 60 MG Magnesium Magnesium No 1{table QD Magnesium 500 MG 500 MG t_with_ 500 MG a_meal} Ventolin Ventolin No Ventolin HFA 108 (90 HFA 108 (90 HFA 108 Base) Base) (90 Base) MCG/ACT MCG/ACT MCG/ACT Metoprolol Metoprolol No 1{capsu QD Metoprolol Succinate Succinate le} Succinate 25 MG 25 MG 25 MG Vitamin C Vitamin C No Vitamin C 500 MG 500 MG 500 MG Citalopram Citalopram No Citalopram Hydrobromid Hydrobromid Hydrobromi e 40 MG e 40 MG de 40 MG NovoLIN NovoLIN No NovoLIN 70/30 70/30 70/30 FlexPen FlexPen FlexPen (70-30) 100 (70-30) 100 (70-30) UNIT/ML UNIT/ML 100 UNIT/ML Aspirin Aspirin No 1{table QD Aspirin Adult Low Adult Low t} Adult Low Strength 81 Strength 81 Strength MG MG 81 MG Gabapentin Gabapentin No Gabapentin 100 MG 100 MG 100 MG Vitamin C Vitamin C No Vitamin C 500 MG 500 MG 500 MG Vitamin B Vitamin B No Vitamin B Complex - Complex - Complex - Pregabalin Pregabalin No 1{capsu Pregabalin 75 MG 75 MG le} 75 MG Buprenorphi Buprenorphi No 1{patch Buprenorph ne 5 MCG/HR ne 5 MCG/HR _to_ski ine 5 n} MCG/HR DULoxetine DULoxetine No 1{capsu QD DULoxetine HCl 60 MG HCl 60 MG le} HCl 60 MG Gabapentin Gabapentin No TID Gabapentin 300 MG 300 MG 300 MG Metoprolol Metoprolol No 1{capsu QD Metoprolol Succinate Succinate le} Succinate 25 MG 25 MG 25 MG Ventolin Ventolin No Ventolin HFA 108 (90 HFA 108 (90 HFA 108 Base) Base) (90 Base) MCG/ACT MCG/ACT MCG/ACT Zinc 50 MG Zinc 50 MG No 1{table QD Zinc 50 MG t} Fish Oil Fish Oil No Fish Oil Citalopram Citalopram No Citalopram Hydrobromid Hydrobromid Hydrobromi e 40 MG e 40 MG de 40 MG Aspirin Aspirin No 1{table QD Aspirin Adult Low Adult Low t} Adult Low Strength 81 Strength 81 Strength MG MG 81 MG Magnesium Magnesium No 1{table QD Magnesium 500 MG 500 MG t_with_ 500 MG a_meal} DULoxetine DULoxetine No 1{capsu QD DULoxetine HCl 60 MG HCl 60 MG le} HCl 60 MG NovoLIN NovoLIN No BID NovoLIN 70/30 70/30 70/30 FlexPen FlexPen FlexPen (70-30) 100 (70-30) 100 (70-30) UNIT/ML UNIT/ML 100 UNIT/ML Citalopram Citalopram No Citalopram Hydrobromid Hydrobromid Hydrobromi e 20 MG e 20 MG de 20 MG Gabapentin Gabapentin No Gabapentin 100 MG 100 MG 100 MG Vitamin C Vitamin C No Vitamin C 500 MG 500 MG 500 MG Vitamin B Vitamin B No Vitamin B Complex - Complex - Complex - Pregabalin Pregabalin No 1{capsu Pregabalin 75 MG 75 MG le} 75 MG Buprenorphi Buprenorphi No 1{patch Buprenorph ne 5 MCG/HR ne 5 MCG/HR _to_ski ine 5 n} MCG/HR DULoxetine DULoxetine No 1{capsu QD DULoxetine HCl 60 MG HCl 60 MG le} HCl 60 MG DULoxetine DULoxetine No 1{capsu QD DULoxetine HCl 60 MG HCl 60 MG le} HCl 60 MG Gabapentin Gabapentin No TID Gabapentin 300 MG 300 MG 300 MG Metoprolol Metoprolol No 1{capsu QD Metoprolol Succinate Succinate le} Succinate 25 MG 25 MG 25 MG Ventolin Ventolin No Ventolin HFA 108 (90 HFA 108 (90 HFA 108 Base) Base) (90 Base) MCG/ACT MCG/ACT MCG/ACT Zinc 50 MG Zinc 50 MG No 1{table QD Zinc 50 MG t} Fish Oil Fish Oil No Fish Oil Citalopram Citalopram No Citalopram Hydrobromid Hydrobromid Hydrobromi e 40 MG e 40 MG de 40 MG Aspirin Aspirin No 1{table QD Aspirin Adult Low Adult Low t} Adult Low Strength 81 Strength 81 Strength MG MG 81 MG Magnesium Magnesium No 1{table QD Magnesium 500 MG 500 MG t_with_ 500 MG a_meal} NovoLIN NovoLIN No BID NovoLIN 70/30 70/30 70/30 FlexPen FlexPen FlexPen (70-30) 100 (70-30) 100 (70-30) UNIT/ML UNIT/ML 100 UNIT/ML Citalopram Citalopram No Citalopram Hydrobromid Hydrobromid Hydrobromi e 20 MG e 20 MG de 20 MG Gabapentin Gabapentin No Gabapentin 100 MG 100 MG 100 MG Vitamin C Vitamin C No Vitamin C 500 MG 500 MG 500 MG Vitamin B Vitamin B No Vitamin B Complex - Complex - Complex - Pregabalin Pregabalin No 1{capsu Pregabalin 75 MG 75 MG le} 75 MG Buprenorphi Buprenorphi No 1{patch Buprenorph ne 5 MCG/HR ne 5 MCG/HR _to_ski ine 5 n} MCG/HR DULoxetine DULoxetine No 1{capsu QD DULoxetine HCl 60 MG HCl 60 MG le} HCl 60 MG DULoxetine DULoxetine No 1{capsu QD DULoxetine HCl 60 MG HCl 60 MG le} HCl 60 MG Gabapentin Gabapentin No TID Gabapentin 300 MG 300 MG 300 MG Metoprolol Metoprolol No 1{capsu QD Metoprolol Succinate Succinate le} Succinate 25 MG 25 MG 25 MG Ventolin Ventolin No Ventolin HFA 108 (90 HFA 108 (90 HFA 108 Base) Base) (90 Base) MCG/ACT MCG/ACT MCG/ACT Zinc 50 MG Zinc 50 MG No 1{table QD Zinc 50 MG t} Fish Oil Fish Oil No Fish Oil Citalopram Citalopram No Citalopram Hydrobromid Hydrobromid Hydrobromi e 40 MG e 40 MG de 40 MG Aspirin Aspirin No 1{table QD Aspirin Adult Low Adult Low t} Adult Low Strength 81 Strength 81 Strength MG MG 81 MG Magnesium Magnesium No 1{table QD Magnesium 500 MG 500 MG t_with_ 500 MG a_meal} NovoLIN NovoLIN No BID NovoLIN 70/30 70/30 70/30 FlexPen FlexPen FlexPen (70-30) 100 (70-30) 100 (70-30) UNIT/ML UNIT/ML 100 UNIT/ML Citalopram Citalopram No Citalopram Hydrobromid Hydrobromid Hydrobromi e 20 MG e 20 MG de 20 MG Gabapentin Gabapentin No Gabapentin 100 MG 100 MG 100 MG Citalopram Citalopram No Citalopram Hydrobromid Hydrobromid Hydrobromi e 20 MG e 20 MG de 20 MG Vitamin B Vitamin B No Vitamin B Complex - Complex - Complex - Gabapentin Gabapentin No TID Gabapentin 300 MG 300 MG 300 MG DULoxetine DULoxetine No 1{capsu QD DULoxetine HCl 60 MG HCl 60 MG le} HCl 60 MG Magnesium Magnesium No 1{table QD Magnesium 500 MG 500 MG t_with_ 500 MG a_meal} Ventolin Ventolin No Ventolin HFA 108 (90 HFA 108 (90 HFA 108 Base) Base) (90 Base) MCG/ACT MCG/ACT MCG/ACT Metoprolol Metoprolol No 1{capsu QD Metoprolol Succinate Succinate le} Succinate 25 MG 25 MG 25 MG Vitamin C Vitamin C No Vitamin C 500 MG 500 MG 500 MG Citalopram Citalopram No Citalopram Hydrobromid Hydrobromid Hydrobromi e 40 MG e 40 MG de 40 MG NovoLIN NovoLIN No NovoLIN 70/30 70/30 70/30 FlexPen FlexPen FlexPen (70-30) 100 (70-30) 100 (70-30) UNIT/ML UNIT/ML 100 UNIT/ML Aspirin Aspirin No 1{table QD Aspirin Adult Low Adult Low t} Adult Low Strength 81 Strength 81 Strength MG MG 81 MG Gabapentin Gabapentin No Gabapentin 100 MG 100 MG 100 MG Citalopram Citalopram No Citalopram Hydrobromid Hydrobromid Hydrobromi e 20 MG e 20 MG de 20 MG Vitamin B Vitamin B No Vitamin B Complex - Complex - Complex - Gabapentin Gabapentin No TID Gabapentin 300 MG 300 MG 300 MG DULoxetine DULoxetine No 1{capsu QD DULoxetine HCl 60 MG HCl 60 MG le} HCl 60 MG Magnesium Magnesium No 1{table QD Magnesium 500 MG 500 MG t_with_ 500 MG a_meal} Ventolin Ventolin No Ventolin HFA 108 (90 HFA 108 (90 HFA 108 Base) Base) (90 Base) MCG/ACT MCG/ACT MCG/ACT Metoprolol Metoprolol No 1{capsu QD Metoprolol Succinate Succinate le} Succinate 25 MG 25 MG 25 MG Vitamin C Vitamin C No Vitamin C 500 MG 500 MG 500 MG Citalopram Citalopram No Citalopram Hydrobromid Hydrobromid Hydrobromi e 40 MG e 40 MG de 40 MG NovoLIN NovoLIN No NovoLIN 70/30 70/30 70/30 FlexPen FlexPen FlexPen (70-30) 100 (70-30) 100 (70-30) UNIT/ML UNIT/ML 100 UNIT/ML Aspirin Aspirin No 1{table QD Aspirin Adult Low Adult Low t} Adult Low Strength 81 Strength 81 Strength MG MG 81 MG Gabapentin Gabapentin No Gabapentin 100 MG 100 MG 100 MG Vitamin C Vitamin C No Vitamin C 500 MG 500 MG 500 MG Vitamin B Vitamin B No Vitamin B Complex - Complex - Complex - Pregabalin Pregabalin No 1{capsu Pregabalin 75 MG 75 MG le} 75 MG Buprenorphi Buprenorphi No 1{patch Buprenorph ne 5 MCG/HR ne 5 MCG/HR _to_ski ine 5 n} MCG/HR DULoxetine DULoxetine No 1{capsu QD DULoxetine HCl 60 MG HCl 60 MG le} HCl 60 MG Gabapentin Gabapentin No TID Gabapentin 300 MG 300 MG 300 MG Metoprolol Metoprolol No 1{capsu QD Metoprolol Succinate Succinate le} Succinate 25 MG 25 MG 25 MG Ventolin Ventolin No Ventolin HFA 108 (90 HFA 108 (90 HFA 108 Base) Base) (90 Base) MCG/ACT MCG/ACT MCG/ACT Zinc 50 MG Zinc 50 MG No 1{table QD Zinc 50 MG t} Fish Oil Fish Oil No Fish Oil Citalopram Citalopram No Citalopram Hydrobromid Hydrobromid Hydrobromi e 40 MG e 40 MG de 40 MG Aspirin Aspirin No 1{table QD Aspirin Adult Low Adult Low t} Adult Low Strength 81 Strength 81 Strength MG MG 81 MG Magnesium Magnesium No 1{table QD Magnesium 500 MG 500 MG t_with_ 500 MG a_meal} DULoxetine DULoxetine No 1{capsu QD DULoxetine HCl 60 MG HCl 60 MG le} HCl 60 MG NovoLIN NovoLIN No BID NovoLIN 70/30 70/30 70/30 FlexPen FlexPen FlexPen (70-30) 100 (70-30) 100 (70-30) UNIT/ML UNIT/ML 100 UNIT/ML Citalopram Citalopram No Citalopram Hydrobromid Hydrobromid Hydrobromi e 20 MG e 20 MG de 20 MG Gabapentin Gabapentin No Gabapentin 100 MG 100 MG 100 MG Vitamin C Vitamin C No Vitamin C 500 MG 500 MG 500 MG Vitamin B Vitamin B No Vitamin B Complex - Complex - Complex - Pregabalin Pregabalin No 1{capsu Pregabalin 75 MG 75 MG le} 75 MG Buprenorphi Buprenorphi No 1{patch Buprenorph ne 5 MCG/HR ne 5 MCG/HR _to_ski ine 5 n} MCG/HR DULoxetine DULoxetine No 1{capsu QD DULoxetine HCl 60 MG HCl 60 MG le} HCl 60 MG DULoxetine DULoxetine No 1{capsu QD DULoxetine HCl 60 MG HCl 60 MG le} HCl 60 MG Gabapentin Gabapentin No TID Gabapentin 300 MG 300 MG 300 MG Metoprolol Metoprolol No 1{capsu QD Metoprolol Succinate Succinate le} Succinate 25 MG 25 MG 25 MG Ventolin Ventolin No Ventolin HFA 108 (90 HFA 108 (90 HFA 108 Base) Base) (90 Base) MCG/ACT MCG/ACT MCG/ACT Zinc 50 MG Zinc 50 MG No 1{table QD Zinc 50 MG t} Fish Oil Fish Oil No Fish Oil Citalopram Citalopram No Citalopram Hydrobromid Hydrobromid Hydrobromi e 40 MG e 40 MG de 40 MG Aspirin Aspirin No 1{table QD Aspirin Adult Low Adult Low t} Adult Low Strength 81 Strength 81 Strength MG MG 81 MG Magnesium Magnesium No 1{table QD Magnesium 500 MG 500 MG t_with_ 500 MG a_meal} NovoLIN NovoLIN No BID NovoLIN 70/30 70/30 70/30 FlexPen FlexPen FlexPen (70-30) 100 (70-30) 100 (70-30) UNIT/ML UNIT/ML 100 UNIT/ML Citalopram Citalopram No Citalopram Hydrobromid Hydrobromid Hydrobromi e 20 MG e 20 MG de 20 MG Gabapentin Gabapentin No Gabapentin 100 MG 100 MG 100 MG Vitamin C Vitamin C No Vitamin C 500 MG 500 MG 500 MG Vitamin B Vitamin B No Vitamin B Complex - Complex - Complex - Pregabalin Pregabalin No 1{capsu Pregabalin 75 MG 75 MG le} 75 MG Buprenorphi Buprenorphi No 1{patch Buprenorph ne 5 MCG/HR ne 5 MCG/HR _to_ski ine 5 n} MCG/HR DULoxetine DULoxetine No 1{capsu QD DULoxetine HCl 60 MG HCl 60 MG le} HCl 60 MG DULoxetine DULoxetine No 1{capsu QD DULoxetine HCl 60 MG HCl 60 MG le} HCl 60 MG Gabapentin Gabapentin No TID Gabapentin 300 MG 300 MG 300 MG Metoprolol Metoprolol No 1{capsu QD Metoprolol Succinate Succinate le} Succinate 25 MG 25 MG 25 MG Ventolin Ventolin No Ventolin HFA 108 (90 HFA 108 (90 HFA 108 Base) Base) (90 Base) MCG/ACT MCG/ACT MCG/ACT Zinc 50 MG Zinc 50 MG No 1{table QD Zinc 50 MG t} Fish Oil Fish Oil No Fish Oil Citalopram Citalopram No Citalopram Hydrobromid Hydrobromid Hydrobromi e 40 MG e 40 MG de 40 MG Aspirin Aspirin No 1{table QD Aspirin Adult Low Adult Low t} Adult Low Strength 81 Strength 81 Strength MG MG 81 MG Magnesium Magnesium No 1{table QD Magnesium 500 MG 500 MG t_with_ 500 MG a_meal} NovoLIN NovoLIN No BID NovoLIN 70/30 70/30 70/30 FlexPen FlexPen FlexPen (70-30) 100 (70-30) 100 (70-30) UNIT/ML UNIT/ML 100 UNIT/ML Citalopram Citalopram No Citalopram Hydrobromid Hydrobromid Hydrobromi e 20 MG e 20 MG de 20 MG Gabapentin Gabapentin No Gabapentin 100 MG 100 MG 100 MG NovoLIN NovoLIN No NovoLIN 70/30 70/30 70/30 FlexPen FlexPen FlexPen (70-30) 100 (70-30) 100 (70-30) UNIT/ML UNIT/ML 100 UNIT/ML Magnesium Magnesium No 1{table QD Magnesium 500 MG 500 MG t_with_ 500 MG a_meal} Vitamin B Vitamin B No Vitamin B Complex - Complex - Complex - Aspirin Aspirin No 1{table QD Aspirin Adult Low Adult Low t} Adult Low Strength 81 Strength 81 Strength MG MG 81 MG Ventolin Ventolin No Ventolin HFA 108 (90 HFA 108 (90 HFA 108 Base) Base) (90 Base) MCG/ACT MCG/ACT MCG/ACT Vitamin C Vitamin C No Vitamin C 500 MG 500 MG 500 MG Gabapentin Gabapentin No 2{capsu Gabapentin 100 mg 100 mg les} 100 mg Magnesium Magnesium No 1{table QD Magnesium 500 MG 500 MG t_with_ 500 MG a_meal} Citalopram Citalopram No Citalopram Hydrobromid Hydrobromid Hydrobromi e 20 MG e 20 MG de 20 MG Vitamin C Vitamin C No Vitamin C 500 MG 500 MG 500 MG Metoprolol Metoprolol No 1{capsu QD Metoprolol Succinate Succinate le} Succinate 25 MG 25 MG 25 MG NovoLIN NovoLIN No NovoLIN 70/30 70/30 70/30 FlexPen FlexPen FlexPen (70-30) 100 (70-30) 100 (70-30) UNIT/ML UNIT/ML 100 UNIT/ML Vitamin B Vitamin B No Vitamin B Complex - Complex - Complex - Citalopram Citalopram No 1{table QD Citalopram Hydrobromid Hydrobromid t} Hydrobromi e 40 MG e 40 MG de 40 MG Ventolin Ventolin No Ventolin HFA 108 (90 HFA 108 (90 HFA 108 Base) Base) (90 Base) MCG/ACT MCG/ACT MCG/ACT Aspirin Aspirin No 1{table QD Aspirin Adult Low Adult Low t} Adult Low Strength 81 Strength 81 Strength MG MG 81 MG Gabapentin Gabapentin No 2{capsu Gabapentin 100 mg 100 mg les} 100 mg Magnesium Magnesium No 1{table QD Magnesium 500 MG 500 MG t_with_ 500 MG a_meal} Citalopram Citalopram No Citalopram Hydrobromid Hydrobromid Hydrobromi e 20 MG e 20 MG de 20 MG Vitamin C Vitamin C No Vitamin C 500 MG 500 MG 500 MG Metoprolol Metoprolol No 1{capsu QD Metoprolol Succinate Succinate le} Succinate 25 MG 25 MG 25 MG NovoLIN NovoLIN No NovoLIN 70/30 70/30 70/30 FlexPen FlexPen FlexPen (70-30) 100 (70-30) 100 (70-30) UNIT/ML UNIT/ML 100 UNIT/ML Vitamin B Vitamin B No Vitamin B Complex - Complex - Complex - Citalopram Citalopram No 1{table QD Citalopram Hydrobromid Hydrobromid t} Hydrobromi e 40 MG e 40 MG de 40 MG Ventolin Ventolin No Ventolin HFA 108 (90 HFA 108 (90 HFA 108 Base) Base) (90 Base) MCG/ACT MCG/ACT MCG/ACT Aspirin Aspirin No 1{table QD Aspirin Adult Low Adult Low t} Adult Low Strength 81 Strength 81 Strength MG MG 81 MG Gabapentin Gabapentin No 2{capsu Gabapentin 100 mg 100 mg les} 100 mg Magnesium Magnesium No 1{table QD Magnesium 500 MG 500 MG t_with_ 500 MG a_meal} Citalopram Citalopram No Citalopram Hydrobromid Hydrobromid Hydrobromi e 20 MG e 20 MG de 20 MG Vitamin C Vitamin C No Vitamin C 500 MG 500 MG 500 MG Metoprolol Metoprolol No 1{capsu QD Metoprolol Succinate Succinate le} Succinate 25 MG 25 MG 25 MG NovoLIN NovoLIN No NovoLIN 70/30 70/30 70/30 FlexPen FlexPen FlexPen (70-30) 100 (70-30) 100 (70-30) UNIT/ML UNIT/ML 100 UNIT/ML Vitamin B Vitamin B No Vitamin B Complex - Complex - Complex - Citalopram Citalopram No 1{table QD Citalopram Hydrobromid Hydrobromid t} Hydrobromi e 40 MG e 40 MG de 40 MG Ventolin Ventolin No Ventolin HFA 108 (90 HFA 108 (90 HFA 108 Base) Base) (90 Base) MCG/ACT MCG/ACT MCG/ACT Aspirin Aspirin No 1{table QD Aspirin Adult Low Adult Low t} Adult Low Strength 81 Strength 81 Strength MG MG 81 MG Gabapentin Gabapentin No 2{capsu Gabapentin 100 mg 100 mg les} 100 mg Magnesium Magnesium No 1{table QD Magnesium 500 MG 500 MG t_with_ 500 MG a_meal} Citalopram Citalopram No Citalopram Hydrobromid Hydrobromid Hydrobromi e 20 MG e 20 MG de 20 MG Vitamin C Vitamin C No Vitamin C 500 MG 500 MG 500 MG Metoprolol Metoprolol No 1{capsu QD Metoprolol Succinate Succinate le} Succinate 25 MG 25 MG 25 MG NovoLIN NovoLIN No NovoLIN 70/30 70/30 70/30 FlexPen FlexPen FlexPen (70-30) 100 (70-30) 100 (70-30) UNIT/ML UNIT/ML 100 UNIT/ML Vitamin B Vitamin B No Vitamin B Complex - Complex - Complex - Citalopram Citalopram No 1{table QD Citalopram Hydrobromid Hydrobromid t} Hydrobromi e 40 MG e 40 MG de 40 MG Ventolin Ventolin No Ventolin HFA 108 (90 HFA 108 (90 HFA 108 Base) Base) (90 Base) MCG/ACT MCG/ACT MCG/ACT Aspirin Aspirin No 1{table QD Aspirin Adult Low Adult Low t} Adult Low Strength 81 Strength 81 Strength MG MG 81 MG Gabapentin Gabapentin No 2{capsu Gabapentin 100 mg 100 mg les} 100 mg Citalopram Citalopram No Citalopram Hydrobromid Hydrobromid Hydrobromi e 20 MG e 20 MG de 20 MG Vitamin B Vitamin B No Vitamin B Complex - Complex - Complex - NovoLIN NovoLIN No NovoLIN 70/30 70/30 70/30 FlexPen FlexPen FlexPen (70-30) 100 (70-30) 100 (70-30) UNIT/ML UNIT/ML 100 UNIT/ML Gabapentin Gabapentin No 2{capsu Gabapentin 100 mg 100 mg les} 100 mg Ventolin Ventolin No Ventolin HFA 108 (90 HFA 108 (90 HFA 108 Base) Base) (90 Base) MCG/ACT MCG/ACT MCG/ACT Aspirin Aspirin No 1{table QD Aspirin Adult Low Adult Low t} Adult Low Strength 81 Strength 81 Strength MG MG 81 MG Magnesium Magnesium No 1{table QD Magnesium 500 MG 500 MG t_with_ 500 MG a_meal} Citalopram Citalopram No 1{table QD Citalopram Hydrobromid Hydrobromid t} Hydrobromi e 40 MG e 40 MG de 40 MG Metoprolol Metoprolol No 1{capsu QD Metoprolol Succinate Succinate le} Succinate 25 MG 25 MG 25 MG Vitamin C Vitamin C No Vitamin C 500 MG 500 MG 500 MG Citalopram Citalopram No Citalopram Hydrobromid Hydrobromid Hydrobromi e 20 MG e 20 MG de 20 MG Vitamin B Vitamin B No Vitamin B Complex - Complex - Complex - NovoLIN NovoLIN No NovoLIN 70/30 70/30 70/30 FlexPen FlexPen FlexPen (70-30) 100 (70-30) 100 (70-30) UNIT/ML UNIT/ML 100 UNIT/ML Gabapentin Gabapentin No 2{capsu Gabapentin 100 mg 100 mg les} 100 mg Ventolin Ventolin No Ventolin HFA 108 (90 HFA 108 (90 HFA 108 Base) Base) (90 Base) MCG/ACT MCG/ACT MCG/ACT Aspirin Aspirin No 1{table QD Aspirin Adult Low Adult Low t} Adult Low Strength 81 Strength 81 Strength MG MG 81 MG Magnesium Magnesium No 1{table QD Magnesium 500 MG 500 MG t_with_ 500 MG a_meal} Citalopram Citalopram No 1{table QD Citalopram Hydrobromid Hydrobromid t} Hydrobromi e 40 MG e 40 MG de 40 MG Metoprolol Metoprolol No 1{capsu QD Metoprolol Succinate Succinate le} Succinate 25 MG 25 MG 25 MG Vitamin C Vitamin C No Vitamin C 500 MG 500 MG 500 MG Citalopram Citalopram No Citalopram Hydrobromid Hydrobromid Hydrobromi e 20 MG e 20 MG de 20 MG Vitamin B Vitamin B No Vitamin B Complex - Complex - Complex - NovoLIN NovoLIN No NovoLIN 70/30 70/30 70/30 FlexPen FlexPen FlexPen (70-30) 100 (70-30) 100 (70-30) UNIT/ML UNIT/ML 100 UNIT/ML Gabapentin Gabapentin No 2{capsu Gabapentin 100 mg 100 mg les} 100 mg Ventolin Ventolin No Ventolin HFA 108 (90 HFA 108 (90 HFA 108 Base) Base) (90 Base) MCG/ACT MCG/ACT MCG/ACT Aspirin Aspirin No 1{table QD Aspirin Adult Low Adult Low t} Adult Low Strength 81 Strength 81 Strength MG MG 81 MG Magnesium Magnesium No 1{table QD Magnesium 500 MG 500 MG t_with_ 500 MG a_meal} Citalopram Citalopram No 1{table QD Citalopram Hydrobromid Hydrobromid t} Hydrobromi e 40 MG e 40 MG de 40 MG Metoprolol Metoprolol No 1{capsu QD Metoprolol Succinate Succinate le} Succinate 25 MG 25 MG 25 MG Vitamin C Vitamin C No Vitamin C 500 MG 500 MG 500 MG Citalopram Citalopram No Citalopram Hydrobromid Hydrobromid Hydrobromi e 20 MG e 20 MG de 20 MG Vitamin B Vitamin B No Vitamin B Complex - Complex - Complex - NovoLIN NovoLIN No NovoLIN 70/30 70/30 70/30 FlexPen FlexPen FlexPen (70-30) 100 (70-30) 100 (70-30) UNIT/ML UNIT/ML 100 UNIT/ML Gabapentin Gabapentin No 2{capsu Gabapentin 100 mg 100 mg les} 100 mg Ventolin Ventolin No Ventolin HFA 108 (90 HFA 108 (90 HFA 108 Base) Base) (90 Base) MCG/ACT MCG/ACT MCG/ACT Aspirin Aspirin No 1{table QD Aspirin Adult Low Adult Low t} Adult Low Strength 81 Strength 81 Strength MG MG 81 MG Magnesium Magnesium No 1{table QD Magnesium 500 MG 500 MG t_with_ 500 MG a_meal} Citalopram Citalopram No 1{table QD Citalopram Hydrobromid Hydrobromid t} Hydrobromi e 40 MG e 40 MG de 40 MG Metoprolol Metoprolol No 1{capsu QD Metoprolol Succinate Succinate le} Succinate 25 MG 25 MG 25 MG Vitamin C Vitamin C No Vitamin C 500 MG 500 MG 500 MG Citalopram Citalopram No Citalopram Hydrobromid Hydrobromid Hydrobromi e 20 MG e 20 MG de 20 MG Vitamin B Vitamin B No Vitamin B Complex - Complex - Complex - NovoLIN NovoLIN No NovoLIN 70/30 70/30 70/30 FlexPen FlexPen FlexPen (70-30) 100 (70-30) 100 (70-30) UNIT/ML UNIT/ML 100 UNIT/ML Gabapentin Gabapentin No 2{capsu Gabapentin 100 mg 100 mg les} 100 mg Ventolin Ventolin No Ventolin HFA 108 (90 HFA 108 (90 HFA 108 Base) Base) (90 Base) MCG/ACT MCG/ACT MCG/ACT Aspirin Aspirin No 1{table QD Aspirin Adult Low Adult Low t} Adult Low Strength 81 Strength 81 Strength MG MG 81 MG Magnesium Magnesium No 1{table QD Magnesium 500 MG 500 MG t_with_ 500 MG a_meal} Citalopram Citalopram No 1{table QD Citalopram Hydrobromid Hydrobromid t} Hydrobromi e 40 MG e 40 MG de 40 MG Metoprolol Metoprolol No 1{capsu QD Metoprolol Succinate Succinate le} Succinate 25 MG 25 MG 25 MG Vitamin C Vitamin C No Vitamin C 500 MG 500 MG 500 MG Aspirin Aspirin No 1{table QD Aspirin Adult Low Adult Low t} Adult Low Strength 81 Strength 81 Strength MG MG 81 MG Metoprolol Metoprolol No 1{capsu QD Metoprolol Succinate Succinate le} Succinate 25 MG 25 MG 25 MG Magnesium Magnesium No 1{table QD Magnesium 500 MG 500 MG t_with_ 500 MG a_meal} Vitamin C Vitamin C No Vitamin C 500 MG 500 MG 500 MG Gabapentin Gabapentin No 2{capsu Gabapentin 100 mg 100 mg les} 100 mg NovoLIN NovoLIN No NovoLIN 70/30 70/30 70/30 FlexPen FlexPen FlexPen (70-30) 100 (70-30) 100 (70-30) UNIT/ML UNIT/ML 100 UNIT/ML Citalopram Citalopram No Citalopram Hydrobromid Hydrobromid Hydrobromi e 20 MG e 20 MG de 20 MG Ventolin Ventolin No Ventolin HFA 108 (90 HFA 108 (90 HFA 108 Base) Base) (90 Base) MCG/ACT MCG/ACT MCG/ACT Vitamin B Vitamin B No Vitamin B Complex - Complex - Complex - Citalopram Citalopram No 1{table QD Citalopram Hydrobromid Hydrobromid t} Hydrobromi e 40 MG e 40 MG de 40 MG NovoLIN NovoLIN No NovoLIN 70/30 70/30 70/30 FlexPen FlexPen FlexPen (70-30) 100 (70-30) 100 (70-30) UNIT/ML UNIT/ML 100 UNIT/ML Gabapentin Gabapentin No Gabapentin 100 MG 100 MG 100 MG Citalopram Citalopram No Citalopram Hydrobromid Hydrobromid Hydrobromi e 40 MG e 40 MG de 40 MG Magnesium Magnesium No 1{table QD Magnesium 500 MG 500 MG t_with_ 500 MG a_meal} Vitamin B Vitamin B No Vitamin B Complex - Complex - Complex - Metoprolol Metoprolol No 1{capsu QD Metoprolol Succinate Succinate le} Succinate 25 MG 25 MG 25 MG Citalopram Citalopram No Citalopram Hydrobromid Hydrobromid Hydrobromi e 20 MG e 20 MG de 20 MG Aspirin Aspirin No 1{table QD Aspirin Adult Low Adult Low t} Adult Low Strength 81 Strength 81 Strength MG MG 81 MG Vitamin C Vitamin C No Vitamin C 500 MG 500 MG 500 MG Ventolin Ventolin No Ventolin HFA 108 (90 HFA 108 (90 HFA 108 Base) Base) (90 Base) MCG/ACT MCG/ACT MCG/ACT NovoLIN NovoLIN No NovoLIN 70/30 70/30 70/30 FlexPen FlexPen FlexPen (70-30) 100 (70-30) 100 (70-30) UNIT/ML UNIT/ML 100 UNIT/ML Gabapentin Gabapentin No Gabapentin 100 MG 100 MG 100 MG Citalopram Citalopram No Citalopram Hydrobromid Hydrobromid Hydrobromi e 40 MG e 40 MG de 40 MG Magnesium Magnesium No 1{table QD Magnesium 500 MG 500 MG t_with_ 500 MG a_meal} Vitamin B Vitamin B No Vitamin B Complex - Complex - Complex - Metoprolol Metoprolol No 1{capsu QD Metoprolol Succinate Succinate le} Succinate 25 MG 25 MG 25 MG Citalopram Citalopram No Citalopram Hydrobromid Hydrobromid Hydrobromi e 20 MG e 20 MG de 20 MG Aspirin Aspirin No 1{table QD Aspirin Adult Low Adult Low t} Adult Low Strength 81 Strength 81 Strength MG MG 81 MG Vitamin C Vitamin C No Vitamin C 500 MG 500 MG 500 MG Ventolin Ventolin No Ventolin HFA 108 (90 HFA 108 (90 HFA 108 Base) Base) (90 Base) MCG/ACT MCG/ACT MCG/ACT NovoLIN NovoLIN No NovoLIN 70/30 70/30 70/30 FlexPen FlexPen FlexPen (70-30) 100 (70-30) 100 (70-30) UNIT/ML UNIT/ML 100 UNIT/ML Gabapentin Gabapentin No Gabapentin 100 MG 100 MG 100 MG Citalopram Citalopram No Citalopram Hydrobromid Hydrobromid Hydrobromi e 40 MG e 40 MG de 40 MG Magnesium Magnesium No 1{table QD Magnesium 500 MG 500 MG t_with_ 500 MG a_meal} Vitamin B Vitamin B No Vitamin B Complex - Complex - Complex - Metoprolol Metoprolol No 1{capsu QD Metoprolol Succinate Succinate le} Succinate 25 MG 25 MG 25 MG Citalopram Citalopram No Citalopram Hydrobromid Hydrobromid Hydrobromi e 20 MG e 20 MG de 20 MG Aspirin Aspirin No 1{table QD Aspirin Adult Low Adult Low t} Adult Low Strength 81 Strength 81 Strength MG MG 81 MG Vitamin C Vitamin C No Vitamin C 500 MG 500 MG 500 MG Ventolin Ventolin No Ventolin HFA 108 (90 HFA 108 (90 HFA 108 Base) Base) (90 Base) MCG/ACT MCG/ACT MCG/ACT Vitamin B Vitamin B No Vitamin B Complex - Complex - Complex - Aspirin Aspirin No 1{table QD Aspirin Adult Low Adult Low t} Adult Low Strength 81 Strength 81 Strength MG MG 81 MG Gabapentin Gabapentin No Gabapentin 100 MG 100 MG 100 MG Metoprolol Metoprolol No 1{capsu QD Metoprolol Succinate Succinate le} Succinate 25 MG 25 MG 25 MG NovoLIN NovoLIN No NovoLIN 70/30 70/30 70/30 FlexPen FlexPen FlexPen (70-30) 100 (70-30) 100 (70-30) UNIT/ML UNIT/ML 100 UNIT/ML Citalopram Citalopram No Citalopram Hydrobromid Hydrobromid Hydrobromi e 40 MG e 40 MG de 40 MG Citalopram Citalopram No Citalopram Hydrobromid Hydrobromid Hydrobromi e 20 MG e 20 MG de 20 MG Vitamin C Vitamin C No Vitamin C 500 MG 500 MG 500 MG Magnesium Magnesium No 1{table QD Magnesium 500 MG 500 MG t_with_ 500 MG a_meal} Ventolin Ventolin No Ventolin HFA 108 (90 HFA 108 (90 HFA 108 Base) Base) (90 Base) MCG/ACT MCG/ACT MCG/ACT Gabapentin Gabapentin No Gabapentin 100 MG 100 MG 100 MG Vitamin C Vitamin C No Vitamin C 500 MG 500 MG 500 MG Ventolin Ventolin No Ventolin HFA 108 (90 HFA 108 (90 HFA 108 Base) Base) (90 Base) MCG/ACT MCG/ACT MCG/ACT Citalopram Citalopram No Citalopram Hydrobromid Hydrobromid Hydrobromi e 40 MG e 40 MG de 40 MG Gabapentin Gabapentin No 2{capsu Gabapentin 100 mg 100 mg les} 100 mg Magnesium Magnesium No 1{table QD Magnesium 500 MG 500 MG t_with_ 500 MG a_meal} Citalopram Citalopram No Citalopram Hydrobromid Hydrobromid Hydrobromi e 20 MG e 20 MG de 20 MG Vitamin B Vitamin B No Vitamin B Complex - Complex - Complex - Metoprolol Metoprolol No 1{capsu QD Metoprolol Succinate Succinate le} Succinate 25 MG 25 MG 25 MG Citalopram Citalopram No 1{table QD Citalopram Hydrobromid Hydrobromid t} Hydrobromi e 40 MG e 40 MG de 40 MG Aspirin Aspirin No 1{table QD Aspirin Adult Low Adult Low t} Adult Low Strength 81 Strength 81 Strength MG MG 81 MG NovoLIN NovoLIN No NovoLIN 70/30 70/30 70/30 FlexPen FlexPen FlexPen (70-30) 100 (70-30) 100 (70-30) UNIT/ML UNIT/ML 100 UNIT/ML Gabapentin Gabapentin No Gabapentin 100 MG 100 MG 100 MG Metoprolol Metoprolol No 1{capsu QD Metoprolol Succinate Succinate le} Succinate 25 MG 25 MG 25 MG Vitamin C Vitamin C No Vitamin C 500 MG 500 MG 500 MG Ventolin Ventolin No Ventolin HFA 108 (90 HFA 108 (90 HFA 108 Base) Base) (90 Base) MCG/ACT MCG/ACT MCG/ACT Citalopram Citalopram No Citalopram Hydrobromid Hydrobromid Hydrobromi e 20 MG e 20 MG de 20 MG Citalopram Citalopram No 1{table QD Citalopram Hydrobromid Hydrobromid t} Hydrobromi e 40 MG e 40 MG de 40 MG Vitamin B Vitamin B No Vitamin B Complex - Complex - Complex - Gabapentin Gabapentin No 2{capsu Gabapentin 100 mg 100 mg les} 100 mg NovoLIN NovoLIN No NovoLIN 70/30 70/30 70/30 FlexPen FlexPen FlexPen (70-30) 100 (70-30) 100 (70-30) UNIT/ML UNIT/ML 100 UNIT/ML Citalopram Citalopram No Citalopram Hydrobromid Hydrobromid Hydrobromi e 40 MG e 40 MG de 40 MG Aspirin Aspirin No 1{table QD Aspirin Adult Low Adult Low t} Adult Low Strength 81 Strength 81 Strength MG MG 81 MG Magnesium Magnesium No 1{table QD Magnesium 500 MG 500 MG t_with_ 500 MG a_meal} Metoprolol Metoprolol No 1{capsu QD Metoprolol Succinate Succinate le} Succinate 25 MG 25 MG 25 MG Gabapentin Gabapentin No Gabapentin 100 MG 100 MG 100 MG Ventolin Ventolin No Ventolin HFA 108 (90 HFA 108 (90 HFA 108 Base) Base) (90 Base) MCG/ACT MCG/ACT MCG/ACT Citalopram Citalopram No Citalopram Hydrobromid Hydrobromid Hydrobromi e 20 MG e 20 MG de 20 MG Vitamin B Vitamin B No Vitamin B Complex - Complex - Complex - Vitamin C Vitamin C No Vitamin C 500 MG 500 MG 500 MG Gabapentin Gabapentin No 2{capsu Gabapentin 100 mg 100 mg les} 100 mg Citalopram Citalopram No Citalopram Hydrobromid Hydrobromid Hydrobromi e 40 MG e 40 MG de 40 MG Citalopram Citalopram No 1{table QD Citalopram Hydrobromid Hydrobromid t} Hydrobromi e 40 MG e 40 MG de 40 MG Aspirin Aspirin No 1{table QD Aspirin Adult Low Adult Low t} Adult Low Strength 81 Strength 81 Strength MG MG 81 MG Magnesium Magnesium No 1{table QD Magnesium 500 MG 500 MG t_with_ 500 MG a_meal} NovoLIN NovoLIN No NovoLIN 70/30 70/30 70/30 FlexPen FlexPen FlexPen (70-30) 100 (70-30) 100 (70-30) UNIT/ML UNIT/ML 100 UNIT/ML Metoprolol Metoprolol No 1{capsu QD Metoprolol Succinate Succinate le} Succinate 25 MG 25 MG 25 MG Gabapentin Gabapentin No Gabapentin 100 MG 100 MG 100 MG Ventolin Ventolin No Ventolin HFA 108 (90 HFA 108 (90 HFA 108 Base) Base) (90 Base) MCG/ACT MCG/ACT MCG/ACT Citalopram Citalopram No Citalopram Hydrobromid Hydrobromid Hydrobromi e 20 MG e 20 MG de 20 MG Vitamin B Vitamin B No Vitamin B Complex - Complex - Complex - Vitamin C Vitamin C No Vitamin C 500 MG 500 MG 500 MG Gabapentin Gabapentin No 2{capsu Gabapentin 100 mg 100 mg les} 100 mg Citalopram Citalopram No Citalopram Hydrobromid Hydrobromid Hydrobromi e 40 MG e 40 MG de 40 MG Citalopram Citalopram No 1{table QD Citalopram Hydrobromid Hydrobromid t} Hydrobromi e 40 MG e 40 MG de 40 MG Aspirin Aspirin No 1{table QD Aspirin Adult Low Adult Low t} Adult Low Strength 81 Strength 81 Strength MG MG 81 MG Magnesium Magnesium No 1{table QD Magnesium 500 MG 500 MG t_with_ 500 MG a_meal} NovoLIN NovoLIN No NovoLIN 70/30 70/30 70/30 FlexPen FlexPen FlexPen (70-30) 100 (70-30) 100 (70-30) UNIT/ML UNIT/ML 100 UNIT/ML Gabapentin Gabapentin No Gabapentin 100 MG 100 MG 100 MG Metoprolol Metoprolol No 1{capsu QD Metoprolol Succinate Succinate le} Succinate 25 MG 25 MG 25 MG Vitamin C Vitamin C No Vitamin C 500 MG 500 MG 500 MG Gabapentin Gabapentin No 2{capsu Gabapentin 100 mg 100 mg les} 100 mg Ventolin Ventolin No Ventolin HFA 108 (90 HFA 108 (90 HFA 108 Base) Base) (90 Base) MCG/ACT MCG/ACT MCG/ACT Citalopram Citalopram No Citalopram Hydrobromid Hydrobromid Hydrobromi e 20 MG e 20 MG de 20 MG Citalopram Citalopram No 1{table QD Citalopram Hydrobromid Hydrobromid t} Hydrobromi e 40 MG e 40 MG de 40 MG Vitamin B Vitamin B No Vitamin B Complex - Complex - Complex - Magnesium Magnesium No 1{table QD Magnesium 500 MG 500 MG t_with_ 500 MG a_meal} NovoLIN NovoLIN No NovoLIN 70/30 70/30 70/30 FlexPen FlexPen FlexPen (70-30) 100 (70-30) 100 (70-30) UNIT/ML UNIT/ML 100 UNIT/ML Citalopram Citalopram No Citalopram Hydrobromid Hydrobromid Hydrobromi e 40 MG e 40 MG de 40 MG Aspirin Aspirin No 1{table QD Aspirin Adult Low Adult Low t} Adult Low Strength 81 Strength 81 Strength MG MG 81 MG Citalopram Citalopram No Citalopram Hydrobromid Hydrobromid Hydrobromi e 40 MG e 40 MG de 40 MG NovoLIN NovoLIN No NovoLIN 70/30 70/30 70/30 FlexPen FlexPen FlexPen (70-30) 100 (70-30) 100 (70-30) UNIT/ML UNIT/ML 100 UNIT/ML Aspirin Aspirin No 1{table QD Aspirin Adult Low Adult Low t} Adult Low Strength 81 Strength 81 Strength MG MG 81 MG Citalopram Citalopram No Citalopram Hydrobromid Hydrobromid Hydrobromi e 20 MG e 20 MG de 20 MG Magnesium Magnesium No 1{table QD Magnesium 500 MG 500 MG t_with_ 500 MG a_meal} Gabapentin Gabapentin No Gabapentin 100 MG 100 MG 100 MG Metoprolol Metoprolol No 1{capsu QD Metoprolol Succinate Succinate le} Succinate 25 MG 25 MG 25 MG Vitamin B Vitamin B No Vitamin B Complex - Complex - Complex - Gabapentin Gabapentin No TID Gabapentin 300 MG 300 MG 300 MG Vitamin C Vitamin C No Vitamin C 500 MG 500 MG 500 MG Ventolin Ventolin No Ventolin HFA 108 (90 HFA 108 (90 HFA 108 Base) Base) (90 Base) MCG/ACT MCG/ACT MCG/ACT DULoxetine DULoxetine No 1{capsu QD DULoxetine HCl 60 MG HCl 60 MG le} HCl 60 MG Citalopram Citalopram No Citalopram Hydrobromid Hydrobromid Hydrobromi e 40 MG e 40 MG de 40 MG NovoLIN NovoLIN No NovoLIN 70/30 70/30 70/30 FlexPen FlexPen FlexPen (70-30) 100 (70-30) 100 (70-30) UNIT/ML UNIT/ML 100 UNIT/ML Aspirin Aspirin No 1{table QD Aspirin Adult Low Adult Low t} Adult Low Strength 81 Strength 81 Strength MG MG 81 MG Citalopram Citalopram No Citalopram Hydrobromid Hydrobromid Hydrobromi e 20 MG e 20 MG de 20 MG Magnesium Magnesium No 1{table QD Magnesium 500 MG 500 MG t_with_ 500 MG a_meal} Gabapentin Gabapentin No Gabapentin 100 MG 100 MG 100 MG Metoprolol Metoprolol No 1{capsu QD Metoprolol Succinate Succinate le} Succinate 25 MG 25 MG 25 MG Vitamin B Vitamin B No Vitamin B Complex - Complex - Complex - Gabapentin Gabapentin No TID Gabapentin 300 MG 300 MG 300 MG Vitamin C Vitamin C No Vitamin C 500 MG 500 MG 500 MG Ventolin Ventolin No Ventolin HFA 108 (90 HFA 108 (90 HFA 108 Base) Base) (90 Base) MCG/ACT MCG/ACT MCG/ACT DULoxetine DULoxetine No 1{capsu QD DULoxetine HCl 60 MG HCl 60 MG le} HCl 60 MG Citalopram Citalopram No Citalopram Hydrobromid Hydrobromid Hydrobromi e 40 MG e 40 MG de 40 MG NovoLIN NovoLIN No NovoLIN 70/30 70/30 70/30 FlexPen FlexPen FlexPen (70-30) 100 (70-30) 100 (70-30) UNIT/ML UNIT/ML 100 UNIT/ML Aspirin Aspirin No 1{table QD Aspirin Adult Low Adult Low t} Adult Low Strength 81 Strength 81 Strength MG MG 81 MG Citalopram Citalopram No Citalopram Hydrobromid Hydrobromid Hydrobromi e 20 MG e 20 MG de 20 MG Magnesium Magnesium No 1{table QD Magnesium 500 MG 500 MG t_with_ 500 MG a_meal} Gabapentin Gabapentin No Gabapentin 100 MG 100 MG 100 MG Metoprolol Metoprolol No 1{capsu QD Metoprolol Succinate Succinate le} Succinate 25 MG 25 MG 25 MG Vitamin B Vitamin B No Vitamin B Complex - Complex - Complex - Gabapentin Gabapentin No TID Gabapentin 300 MG 300 MG 300 MG Vitamin C Vitamin C No Vitamin C 500 MG 500 MG 500 MG Ventolin Ventolin No Ventolin HFA 108 (90 HFA 108 (90 HFA 108 Base) Base) (90 Base) MCG/ACT MCG/ACT MCG/ACT DULoxetine DULoxetine No 1{capsu QD DULoxetine HCl 60 MG HCl 60 MG le} HCl 60 MG Citalopram Citalopram No Citalopram Hydrobromid Hydrobromid Hydrobromi e 40 MG e 40 MG de 40 MG NovoLIN NovoLIN No NovoLIN 70/30 70/30 70/30 FlexPen FlexPen FlexPen (70-30) 100 (70-30) 100 (70-30) UNIT/ML UNIT/ML 100 UNIT/ML Aspirin Aspirin No 1{table QD Aspirin Adult Low Adult Low t} Adult Low Strength 81 Strength 81 Strength MG MG 81 MG Citalopram Citalopram No Citalopram Hydrobromid Hydrobromid Hydrobromi e 20 MG e 20 MG de 20 MG Magnesium Magnesium No 1{table QD Magnesium 500 MG 500 MG t_with_ 500 MG a_meal} Gabapentin Gabapentin No Gabapentin 100 MG 100 MG 100 MG Metoprolol Metoprolol No 1{capsu QD Metoprolol Succinate Succinate le} Succinate 25 MG 25 MG 25 MG Vitamin B Vitamin B No Vitamin B Complex - Complex - Complex - Gabapentin Gabapentin No TID Gabapentin 300 MG 300 MG 300 MG Vitamin C Vitamin C No Vitamin C 500 MG 500 MG 500 MG Ventolin Ventolin No Ventolin HFA 108 (90 HFA 108 (90 HFA 108 Base) Base) (90 Base) MCG/ACT MCG/ACT MCG/ACT DULoxetine DULoxetine No 1{capsu QD DULoxetine HCl 60 MG HCl 60 MG le} HCl 60 MG Citalopram Citalopram No Citalopram Hydrobromid Hydrobromid Hydrobromi e 40 MG e 40 MG de 40 MG NovoLIN NovoLIN No NovoLIN 70/30 70/30 70/30 FlexPen FlexPen FlexPen (70-30) 100 (70-30) 100 (70-30) UNIT/ML UNIT/ML 100 UNIT/ML Aspirin Aspirin No 1{table QD Aspirin Adult Low Adult Low t} Adult Low Strength 81 Strength 81 Strength MG MG 81 MG Citalopram Citalopram No Citalopram Hydrobromid Hydrobromid Hydrobromi e 20 MG e 20 MG de 20 MG Magnesium Magnesium No 1{table QD Magnesium 500 MG 500 MG t_with_ 500 MG a_meal} Gabapentin Gabapentin No Gabapentin 100 MG 100 MG 100 MG Metoprolol Metoprolol No 1{capsu QD Metoprolol Succinate Succinate le} Succinate 25 MG 25 MG 25 MG Vitamin B Vitamin B No Vitamin B Complex - Complex - Complex - Gabapentin Gabapentin No TID Gabapentin 300 MG 300 MG 300 MG Vitamin C Vitamin C No Vitamin C 500 MG 500 MG 500 MG Ventolin Ventolin No Ventolin HFA 108 (90 HFA 108 (90 HFA 108 Base) Base) (90 Base) MCG/ACT MCG/ACT MCG/ACT DULoxetine DULoxetine No 1{capsu QD DULoxetine HCl 60 MG HCl 60 MG le} HCl 60 MG Citalopram Citalopram No Citalopram Hydrobromid Hydrobromid Hydrobromi e 40 MG e 40 MG de 40 MG NovoLIN NovoLIN No NovoLIN 70/30 70/30 70/30 FlexPen FlexPen FlexPen (70-30) 100 (70-30) 100 (70-30) UNIT/ML UNIT/ML 100 UNIT/ML Aspirin Aspirin No 1{table QD Aspirin Adult Low Adult Low t} Adult Low Strength 81 Strength 81 Strength MG MG 81 MG Citalopram Citalopram No Citalopram Hydrobromid Hydrobromid Hydrobromi e 20 MG e 20 MG de 20 MG Magnesium Magnesium No 1{table QD Magnesium 500 MG 500 MG t_with_ 500 MG a_meal} Gabapentin Gabapentin No Gabapentin 100 MG 100 MG 100 MG Metoprolol Metoprolol No 1{capsu QD Metoprolol Succinate Succinate le} Succinate 25 MG 25 MG 25 MG Vitamin B Vitamin B No Vitamin B Complex - Complex - Complex - Gabapentin Gabapentin No TID Gabapentin 300 MG 300 MG 300 MG Vitamin C Vitamin C No Vitamin C 500 MG 500 MG 500 MG Ventolin Ventolin No Ventolin HFA 108 (90 HFA 108 (90 HFA 108 Base) Base) (90 Base) MCG/ACT MCG/ACT MCG/ACT DULoxetine DULoxetine No 1{capsu QD DULoxetine HCl 60 MG HCl 60 MG le} HCl 60 MG Ventolin Ventolin No Ventolin HFA 108 (90 HFA 108 (90 HFA 108 Base) Base) (90 Base) MCG/ACT MCG/ACT MCG/ACT Metoprolol Metoprolol No 1{capsu QD Metoprolol Succinate Succinate le} Succinate 25 MG 25 MG 25 MG Magnesium Magnesium No 1{table QD Magnesium 500 MG 500 MG t_with_ 500 MG a_meal} Citalopram Citalopram No Citalopram Hydrobromid Hydrobromid Hydrobromi e 40 MG e 40 MG de 40 MG Vitamin C Vitamin C No Vitamin C 500 MG 500 MG 500 MG Gabapentin Gabapentin No TID Gabapentin 300 MG 300 MG 300 MG Citalopram Citalopram No Citalopram Hydrobromid Hydrobromid Hydrobromi e 20 MG e 20 MG de 20 MG Aspirin Aspirin No 1{table QD Aspirin Adult Low Adult Low t} Adult Low Strength 81 Strength 81 Strength MG MG 81 MG NovoLIN NovoLIN No NovoLIN 70/30 70/30 70/30 FlexPen FlexPen FlexPen (70-30) 100 (70-30) 100 (70-30) UNIT/ML UNIT/ML 100 UNIT/ML DULoxetine DULoxetine No 1{capsu QD DULoxetine HCl 60 MG HCl 60 MG le} HCl 60 MG Vitamin B Vitamin B No Vitamin B Complex - Complex - Complex - Gabapentin Gabapentin No Gabapentin 100 MG 100 MG 100 MG Ventolin Ventolin No Ventolin HFA 108 (90 HFA 108 (90 HFA 108 Base) Base) (90 Base) MCG/ACT MCG/ACT MCG/ACT Metoprolol Metoprolol No 1{capsu QD Metoprolol Succinate Succinate le} Succinate 25 MG 25 MG 25 MG Magnesium Magnesium No 1{table QD Magnesium 500 MG 500 MG t_with_ 500 MG a_meal} Citalopram Citalopram No Citalopram Hydrobromid Hydrobromid Hydrobromi e 40 MG e 40 MG de 40 MG Vitamin C Vitamin C No Vitamin C 500 MG 500 MG 500 MG Gabapentin Gabapentin No TID Gabapentin 300 MG 300 MG 300 MG Citalopram Citalopram No Citalopram Hydrobromid Hydrobromid Hydrobromi e 20 MG e 20 MG de 20 MG Aspirin Aspirin No 1{table QD Aspirin Adult Low Adult Low t} Adult Low Strength 81 Strength 81 Strength MG MG 81 MG NovoLIN NovoLIN No NovoLIN 70/30 70/30 70/30 FlexPen FlexPen FlexPen (70-30) 100 (70-30) 100 (70-30) UNIT/ML UNIT/ML 100 UNIT/ML DULoxetine DULoxetine No 1{capsu QD DULoxetine HCl 60 MG HCl 60 MG le} HCl 60 MG Vitamin B Vitamin B No Vitamin B Complex - Complex - Complex - Gabapentin Gabapentin No Gabapentin 100 MG 100 MG 100 MG Ventolin Ventolin No Ventolin HFA 108 (90 HFA 108 (90 HFA 108 Base) Base) (90 Base) MCG/ACT MCG/ACT MCG/ACT Metoprolol Metoprolol No 1{capsu QD Metoprolol Succinate Succinate le} Succinate 25 MG 25 MG 25 MG Magnesium Magnesium No 1{table QD Magnesium 500 MG 500 MG t_with_ 500 MG a_meal} Citalopram Citalopram No Citalopram Hydrobromid Hydrobromid Hydrobromi e 40 MG e 40 MG de 40 MG Vitamin C Vitamin C No Vitamin C 500 MG 500 MG 500 MG Gabapentin Gabapentin No TID Gabapentin 300 MG 300 MG 300 MG Citalopram Citalopram No Citalopram Hydrobromid Hydrobromid Hydrobromi e 20 MG e 20 MG de 20 MG Aspirin Aspirin No 1{table QD Aspirin Adult Low Adult Low t} Adult Low Strength 81 Strength 81 Strength MG MG 81 MG NovoLIN NovoLIN No NovoLIN 70/30 70/30 70/30 FlexPen FlexPen FlexPen (70-30) 100 (70-30) 100 (70-30) UNIT/ML UNIT/ML 100 UNIT/ML DULoxetine DULoxetine No 1{capsu QD DULoxetine HCl 60 MG HCl 60 MG le} HCl 60 MG Vitamin B Vitamin B No Vitamin B Complex - Complex - Complex - Gabapentin Gabapentin No Gabapentin 100 MG 100 MG 100 MG Ventolin Ventolin No Ventolin HFA 108 (90 HFA 108 (90 HFA 108 Base) Base) (90 Base) MCG/ACT MCG/ACT MCG/ACT Metoprolol Metoprolol No 1{capsu QD Metoprolol Succinate Succinate le} Succinate 25 MG 25 MG 25 MG Magnesium Magnesium No 1{table QD Magnesium 500 MG 500 MG t_with_ 500 MG a_meal} Citalopram Citalopram No Citalopram Hydrobromid Hydrobromid Hydrobromi e 40 MG e 40 MG de 40 MG Vitamin C Vitamin C No Vitamin C 500 MG 500 MG 500 MG Gabapentin Gabapentin No TID Gabapentin 300 MG 300 MG 300 MG Citalopram Citalopram No Citalopram Hydrobromid Hydrobromid Hydrobromi e 20 MG e 20 MG de 20 MG Aspirin Aspirin No 1{table QD Aspirin Adult Low Adult Low t} Adult Low Strength 81 Strength 81 Strength MG MG 81 MG NovoLIN NovoLIN No NovoLIN 70/30 70/30 70/30 FlexPen FlexPen FlexPen (70-30) 100 (70-30) 100 (70-30) UNIT/ML UNIT/ML 100 UNIT/ML DULoxetine DULoxetine No 1{capsu QD DULoxetine HCl 60 MG HCl 60 MG le} HCl 60 MG Vitamin B Vitamin B No Vitamin B Complex - Complex - Complex - Gabapentin Gabapentin No Gabapentin 100 MG 100 MG 100 MG Metoprolol Metoprolol No 1{capsu QD Metoprolol Succinate Succinate le} Succinate 25 MG 25 MG 25 MG Citalopram Citalopram No Citalopram Hydrobromid Hydrobromid Hydrobromi e 20 MG e 20 MG de 20 MG Magnesium Magnesium No 1{table QD Magnesium 500 MG 500 MG t_with_ 500 MG a_meal} Citalopram Citalopram No Citalopram Hydrobromid Hydrobromid Hydrobromi e 40 MG e 40 MG de 40 MG Vitamin C Vitamin C No Vitamin C 500 MG 500 MG 500 MG Gabapentin Gabapentin No TID Gabapentin 300 MG 300 MG 300 MG NovoLIN NovoLIN No NovoLIN 70/30 70/30 70/30 FlexPen FlexPen FlexPen (70-30) 100 (70-30) 100 (70-30) UNIT/ML UNIT/ML 100 UNIT/ML Aspirin Aspirin No 1{table QD Aspirin Adult Low Adult Low t} Adult Low Strength 81 Strength 81 Strength MG MG 81 MG Ventolin Ventolin No Ventolin HFA 108 (90 HFA 108 (90 HFA 108 Base) Base) (90 Base) MCG/ACT MCG/ACT MCG/ACT Gabapentin Gabapentin No Gabapentin 100 MG 100 MG 100 MG DULoxetine DULoxetine No 1{capsu QD DULoxetine HCl 60 MG HCl 60 MG le} HCl 60 MG Vitamin B Vitamin B No Vitamin B Complex - Complex - Complex - DULoxetine DULoxetine No 1{capsu QD DULoxetine HCl 60 MG HCl 60 MG le} HCl 60 MG Magnesium Magnesium No 1{table QD Magnesium 500 MG 500 MG t_with_ 500 MG a_meal} Vitamin B Vitamin B No Vitamin B Complex - Complex - Complex - Citalopram Citalopram No Citalopram Hydrobromid Hydrobromid Hydrobromi e 20 MG e 20 MG de 20 MG Vitamin C Vitamin C No Vitamin C 500 MG 500 MG 500 MG Ventolin Ventolin No Ventolin HFA 108 (90 HFA 108 (90 HFA 108 Base) Base) (90 Base) MCG/ACT MCG/ACT MCG/ACT NovoLIN NovoLIN No NovoLIN 70/30 70/30 70/30 FlexPen FlexPen FlexPen (70-30) 100 (70-30) 100 (70-30) UNIT/ML UNIT/ML 100 UNIT/ML Gabapentin Gabapentin No TID Gabapentin 300 MG 300 MG 300 MG Metoprolol Metoprolol No 1{capsu QD Metoprolol Succinate Succinate le} Succinate 25 MG 25 MG 25 MG Citalopram Citalopram Yes Pricila 1 tablet Common Hydrobromid Hydrobromid [facility] - [facility] Vitamin D Vitamin D Yes Pricila 1 tablet Common [facility] Metformin Metformin Yes Pricila 1 tablet Common HCl HCl [facility] with a Spirit meal [facility] Vitamin C Vitamin C Yes Pricila as Comm on [facility] directed Spirit [facility] Aspirin Aspirin Yes Pricila 1 tablet Comm on Adult Low Adult Low [facility] Strength Strength - [facility] Gabapentin Gabapentin Yes Pricila 2 capsules Common [facility] Vitamin B Vitamin B Yes Pricila as Comm on Complex Complex [facility] directed Spirit [facility] Aspirin Aspirin No 1{table QD Aspirin Adult Low Adult Low t} Adult Low Strength 81 Strength 81 Strength MG MG 81 MG Gabapentin Gabapentin No Gabapentin 100 MG 100 MG 100 MG Citalopram Citalopram No Citalopram Hydrobromid Hydrobromid Hydrobromi e 40 MG e 40 MG de 40 MG DULoxetine DULoxetine No 1{capsu QD DULoxetine HCl 60 MG HCl 60 MG le} HCl 60 MG Magnesium Magnesium No 1{table QD Magnesium 500 MG 500 MG t_with_ 500 MG a_meal} Vitamin B Vitamin B No Vitamin B Complex - Complex - Complex - Citalopram Citalopram No Citalopram Hydrobromid Hydrobromid Hydrobromi e 20 MG e 20 MG de 20 MG Vitamin C Vitamin C No Vitamin C 500 MG 500 MG 500 MG Ventolin Ventolin No Ventolin HFA 108 (90 HFA 108 (90 HFA 108 Base) Base) (90 Base) MCG/ACT MCG/ACT MCG/ACT NovoLIN NovoLIN No NovoLIN 70/30 70/30 70/30 FlexPen FlexPen FlexPen (70-30) 100 (70-30) 100 (70-30) UNIT/ML UNIT/ML 100 UNIT/ML Gabapentin Gabapentin No TID Gabapentin 300 MG 300 MG 300 MG Metoprolol Metoprolol No 1{capsu QD Metoprolol Succinate Succinate le} Succinate 25 MG 25 MG 25 MG Aspirin Aspirin No 1{table QD Aspirin Adult Low Adult Low t} Adult Low Strength 81 Strength 81 Strength MG MG 81 MG Gabapentin Gabapentin No Gabapentin 100 MG 100 MG 100 MG Citalopram Citalopram No Citalopram Hydrobromid Hydrobromid Hydrobromi e 40 MG e 40 MG de 40 MG DULoxetine DULoxetine No 1{capsu QD DULoxetine HCl 60 MG HCl 60 MG le} HCl 60 MG Magnesium Magnesium No 1{table QD Magnesium 500 MG 500 MG t_with_ 500 MG a_meal} Vitamin B Vitamin B No Vitamin B Complex - Complex - Complex - Citalopram Citalopram No Citalopram Hydrobromid Hydrobromid Hydrobromi e 20 MG e 20 MG de 20 MG Vitamin C Vitamin C No Vitamin C 500 MG 500 MG 500 MG Ventolin Ventolin No Ventolin HFA 108 (90 HFA 108 (90 HFA 108 Base) Base) (90 Base) MCG/ACT MCG/ACT MCG/ACT NovoLIN NovoLIN No NovoLIN 70/30 70/30 70/30 FlexPen FlexPen FlexPen (70-30) 100 (70-30) 100 (70-30) UNIT/ML UNIT/ML 100 UNIT/ML Gabapentin Gabapentin No TID Gabapentin 300 MG 300 MG 300 MG Metoprolol Metoprolol No 1{capsu QD Metoprolol Succinate Succinate le} Succinate 25 MG 25 MG 25 MG Aspirin Aspirin No 1{table QD Aspirin Adult Low Adult Low t} Adult Low Strength 81 Strength 81 Strength MG MG 81 MG Gabapentin Gabapentin No Gabapentin 100 MG 100 MG 100 MG Citalopram Citalopram No Citalopram Hydrobromid Hydrobromid Hydrobromi e 40 MG e 40 MG de 40 MG Magnesium Magnesium No 1{table QD Magnesium 500 MG 500 MG t_with_ 500 MG a_meal} DULoxetine DULoxetine No 1{capsu QD DULoxetine HCl 60 MG HCl 60 MG le} HCl 60 MG Vitamin B Vitamin B No Vitamin B Complex - Complex - Complex - Citalopram Citalopram No Citalopram Hydrobromid Hydrobromid Hydrobromi e 20 MG e 20 MG de 20 MG Vitamin C Vitamin C No Vitamin C 500 MG 500 MG 500 MG Ventolin Ventolin No Ventolin HFA 108 (90 HFA 108 (90 HFA 108 Base) Base) (90 Base) MCG/ACT MCG/ACT MCG/ACT NovoLIN NovoLIN No NovoLIN 70/30 70/30 70/30 FlexPen FlexPen FlexPen (70-30) 100 (70-30) 100 (70-30) UNIT/ML UNIT/ML 100 UNIT/ML Gabapentin Gabapentin No TID Gabapentin 300 MG 300 MG 300 MG Metoprolol Metoprolol No 1{capsu QD Metoprolol Succinate Succinate le} Succinate 25 MG 25 MG 25 MG Aspirin Aspirin No 1{table QD Aspirin Adult Low Adult Low t} Adult Low Strength 81 Strength 81 Strength MG MG 81 MG Gabapentin Gabapentin No Gabapentin 100 MG 100 MG 100 MG Citalopram Citalopram No Citalopram Hydrobromid Hydrobromid Hydrobromi e 40 MG e 40 MG de 40 MG Magnesium Magnesium No 1{table QD Magnesium 500 MG 500 MG t_with_ 500 MG a_meal} Ventolin Ventolin No Ventolin HFA 108 (90 HFA 108 (90 HFA 108 Base) Base) (90 Base) MCG/ACT MCG/ACT MCG/ACT Vitamin C Vitamin C No Vitamin C 500 MG 500 MG 500 MG Immunizations Ordered Immunization Filled Immunization Date Status Commen ts Source Name Name FLUZONE HIGH DOSE FLUZONE HIGH DOSE 2021-12-30 [facility] OVER [facility] 14:13:00 [facility] FLUZONE HIGH DOSE FLUZONE HIGH DOSE 2021-12-30 [facility] OVER [facility] OVER 65 14:13:00 [facility] FLUZONE HIGH DOSE FLUZONE HIGH DOSE 2021-12-30 [facility] - OVER 65 OVER 65 14:13:00 [facility] FLUZONE HIGH DOSE FLUZONE HIGH DOSE 2021-12-30 [facility] - OVER 65 OVER 65 14:13:00 [facility] FLUZONE HIGH DOSE FLUZONE HIGH DOSE 2021-12-30 [facility]pleted [facility] - OVER 65 OVER 65 14:13:00 [facility] FLUZONE HIGH DOSE FLUZONE HIGH DOSE 2021-12-30 [facility]pleted [facility] - OVER 65 OVER 65 14:13:00 [facility] Shingrix Shingrix 2021-01-26 Completed [facility] - 09:39:00 [facility] Shingrix Shingrix 2021-01-26 [facility] 09:39:00 [facility] Shingrix Shingrix 2021-01-26 [facility] 09:39:00 [facility] Shingrix Shingrix 2021-01-26 [facility] 09:39:00 [facility] Shingrix Shingrix 2021-01-26 [facility] 09:39:00 [facility] Shingrix Shingrix 2021-01-26 [facility] 09:39:00 [facility] Shingrix Shingrix 2021-01-26 [facility] 09:39:00 [facility] Shingrix Shingrix 2021-01-26 [facility] 09:39:00 [facility] Shingrix Shingrix 2021-01-26 [facility] 09:39:00 [facility] Shingrix Shingrix 2021-01-26 [facility] 09:39:00 [facility] Shingrix Shingrix 2021-01-26 [facility] 09:39:00 [facility] Shingrix Shingrix 2021-01-26 [facility] 09:39:00 [facility] Shingrix Shingrix 2021-01-26 [facility] 09:39:00 [facility] Shingrix Shingrix 2021-01-26 [facility] 09:39:00 [facility] Shingrix Shingrix 2021-01-26 [facility] 09:39:00 [facility] Shingrix Shingrix 2021-01-26 [facility] 09:39:00 [facility] Shingrix Shingrix 2021-01-26 [facility] 09:39:00 [facility] Shingrix Shingrix 2021-01-26 [facility] 09:39:00 [facility] Shingrix Shingrix 2021-01-26 [facility] 09:39:00 [facility] Shingrix Shingrix 2021-01-26 [facility] 09:39:00 [facility] Shingrix Shingrix 2021-01-26 [facility] 09:39:00 [facility] Shingrix Shingrix 2021-01-26 [facility] 09:39:00 [facility] Shingrix Shingrix 2021-01-26 [facility] 09:39:00 [facility] Shingrix Shingrix 2021-01-26 [facility] 09:39:00 [facility] Shingrix Shingrix 2021-01-26 [facility] 09:39:00 [facility] Shingrix Shingrix 2021-01-26 [facility] 09:39:00 [facility] Shingrix Shingrix 2021-01-26 [facility] 09:39:00 [facility] Shingrix Shingrix 2021-01-26 [facility] 09:39:00 [facility] Shingrix Shingrix 2021-01-26 [facility] 09:39:00 [facility] Shingrix Shingrix 2021-01-26 [facility]pleted [facility] 09:39:00 [facility] Shingrix Shingrix 2021-01-26 Completed [facility] 09:39:00 [facility] Shingrix Shingrix 2021-01-26 [facility] 09:39:00 [facility] Shingrix Shingrix 2021-01-26 [facility] 09:39:00 [facility] Shingrix Shingrix 2021-01-26 [facility] 09:39:00 [facility] Shingrix Shingrix 2021-01-26 [facility] 09:39:00 [facility] Shingrix Shingrix 2021-01-26 [facility] 09:39:00 [facility] Shingrix Shingrix 2021-01-26 [facility] 09:39:00 [facility] Shingrix Shingrix 2021-01-26 [facility] 09:39:00 [facility] Shingrix Shingrix 2021-01-26 [facility] 09:39:00 [facility] Shingrix Shingrix 2021-01-26 [facility] 09:39:00 [facility] Shingrix Shingrix 2021-01-26 [facility] 09:39:00 [facility] Shingrix Shingrix 2021-01-26 [facility] 09:39:00 [facility] Shingrix Shingrix 2021-01-26 [facility] 09:39:00 [facility] Shingrix Shingrix 2021-01-26 Completed [facility] 09:39:00 [facility] Shingrix Shingrix 2021-01-26 Completed [facility] 09:39:00 [facility] Shingrix Shingrix 2021-01-26 [facility] 09:39:00 [facility] Fluzone Fluzone 2020-12-26 Completed [facility] 09:38:00 [facility] Fluzone Fluzone 2020-12-26 [facility]pleted [facility] 09:38:00 [facility] Fluzone Fluzone 2020-12-26 [facility] 09:38:00 [facility] Fluzone Fluzone 2020-12-26 [facility]pleted [facility] 09:38:00 [facility] Fluzone Fluzone 2020-12-26 [facility] 09:38:00 [facility] Fluzone Fluzone 2020-12-26 [facility] 09:38:00 [facility] Fluzone Fluzone 2020-12-26 [facility] 09:38:00 [facility] Fluzone Fluzone 2020-12-26 [facility]pleted [facility] 09:38:00 [facility] Fluzone Fluzone 2020-12-26 [facility] 09:38:00 [facility] Fluzone Fluzone 2020-12-26 [facility] 09:38:00 [facility] Fluzone Fluzone 2020-12-26 [facility]pleted [facility] 09:38:00 [facility] Fluzone Fluzone 2020-12-26 Completed [facility] 09:38:00 [facility] Fluzone Fluzone 2020-12-26 Completed [facility] 09:38:00 [facility] Fluzone Fluzone 2020-12-26 Completed [facility] 09:38:00 [facility] Fluzone Fluzone 2020-12-26 Completed [facility] 09:38:00 [facility] Fluzone Fluzone 2020-12-26 Completed [facility] 09:38:00 [facility] Fluzone Fluzone 2020-12-26 Completed [facility] 09:38:00 [facility] Fluzone Fluzone 2020-12-26 Completed [facility] - 09:38:00 [facility] Fluzone Fluzone 2020-12-26 Completed [facility] - 09:38:00 [facility] Fluzone Fluzone 2020-12-26 Completed [facility] - 09:38:00 [facility] Fluzone Fluzone 2020-12-26 Completed [facility] 09:38:00 [facility] Fluzone Fluzone 2020-12-26 Completed [facility] 09:38:00 [facility] Fluzone Fluzone 2020-12-26 Completed [facility] 09:38:00 [facility] Fluzone Fluzone 2020-12-26 Completed [facility] - 09:38:00 [facility] Fluzone Fluzone 2020-12-26 Completed [facility] - 09:38:00 [facility] Fluzone Fluzone 2020-12-26 Completed [facility] 09:38:00 [facility] Fluzone Fluzone 2020-12-26 Completed [facility] - 09:38:00 [facility] Fluzone Fluzone 2020-12-26 Completed [facility] - 09:38:00 [facility] Fluzone Fluzone 2020-12-26 Completed [facility] - 09:38:00 [facility] Fluzone Fluzone 2020-12-26 Completed [facility] - 09:38:00 [facility] Fluzone Fluzone 2020-12-26 Com[facility] 09:38:00 [facility] Fluzone Fluzone 2020-12-26 Completed [facility] - 09:38:00 [facility] Fluzone Fluzone 2020-12-26 Completed [facility] - 09:38:00 [facility] Fluzone Fluzone 2020-12-26 Completed [facility] 09:38:00 [facility] Fluzone Fluzone 2020-12-26 Completed [facility] 09:38:00 [facility] Fluzone Fluzone 2020-12-26 Completed [facility] 09:38:00 [facility] Fluzone Fluzone 2020-12-26 Completed [facility] 09:38:00 [facility] Fluzone Fluzone 2020-12-26 Completed [facility] 09:38:00 [facility] Fluzone Fluzone 2020-12-26 Completed [facility] 09:38:00 [facility] Fluzone Fluzone 2020-12-26 Completed [facility] 09:38:00 [facility] Fluzone Fluzone 2020-12-26 Completed [facility] 09:38:00 [facility] Fluzone Fluzone 2020-12-26 Completed [facility] 09:38:00 [facility] Fluzone Fluzone 2020-12-26 Completed [facility] 09:38:00 [facility] Fluzone Fluzone 2020-12-26 Completed [facility] - 09:38:00 [facility] Fluzone Fluzone 2020-12-26 Completed [facility] 09:38:00 [facility] Fluzone Fluzone 2020-12-26 Completed [facility] - 09:38:00 [facility] SARS-COV-2 COVID-19 2020-11-15 Completed [facility] of MODERNA VACCINE 00:00:00 [facility] SARS-COV-2 COVID-19 2020-11-15 Completed [facility] of MODERNA VACCINE 00:00:00 [facility] SARS-COV-2 COVID-19 2020-06-03 Completed [facility] of MODERNA VACCINE 00:00:00 [facility] SARS-COV-2 COVID-19 2020-06-03 Completed [facility] of MODERNA VACCINE 00:00:00 [facility] SARS-COV-2 COVID-19 2020-05-06 Completed [facility] MODERNA VACCINE 00:00:00 [facility] SARS-COV-2 COVID-19 2020-05-06 Completed [facility] of MODERNA VACCINE 00:00:00 [facility] Prevnar 13 (PCV13) Prevnar 13 (PCV13) 2020-03-28 [facility]pleted [facility] 15:01:00 [facility] Prevnar 13 (PCV13) Prevnar 13 (PCV13) 2020-03-28 [facility]pleted [facility] - 15:01:00 [facility] Prevnar 13 (PCV13) Prevnar 13 (PCV13) 2020-03-28 [facility]pleted [facility] - 15:01:00 [facility] Prevnar 13 (PCV13) Prevnar 13 (PCV13) 2020-03-28 [facility]pleted [facility] 15:01:00 [facility] Prevnar 13 (PCV13) Prevnar 13 (PCV13) 2020-03-28 [facility]pleted [facility] 15:01:00 [facility] Prevnar 13 (PCV13) Prevnar 13 (PCV13) 2020-03-28 [facility]pleted [facility] 15:01:00 [facility] Prevnar 13 (PCV13) Prevnar 13 (PCV13) 2020-03-28 [facility]pleted [facility] 15:01:00 [facility] Prevnar 13 (PCV13) Prevnar 13 (PCV13) 2020-03-28 [facility]pleted [facility] 15:01:00 [facility] Prevnar 13 (PCV13) Prevnar 13 (PCV13) 2020-03-28 [facility]pleted [facility] 15:01:00 [facility] Prevnar 13 (PCV13) Prevnar 13 (PCV13) 2020-03-28 [facility]pleted [facility] 15:01:00 [facility] Prevnar 13 (PCV13) Prevnar 13 (PCV13) 2020-03-28 [facility]pleted [facility] 15:01:00 [facility] Prevnar 13 (PCV13) Prevnar 13 (PCV13) 2020-03-28 [facility]pleted [facility] 15:01:00 [facility] Prevnar 13 (PCV13) Prevnar 13 (PCV13) 2020-03-28 [facility]pleted [facility] 15:01:00 [facility] Prevnar 13 (PCV13) Prevnar 13 (PCV13) 2020-03-28 [facility]pleted [facility] 15:01:00 [facility] Prevnar 13 (PCV13) Prevnar 13 (PCV13) 2020-03-28 [facility]pleted [facility] 15:01:00 [facility] Prevnar 13 (PCV13) Prevnar 13 (PCV13) 2020-03-28 [facility]pleted [facility] - 15:01:00 [facility] Prevnar 13 (PCV13) Prevnar 13 (PCV13) 2020-03-28 Completed [facility] - 15:01:00 [facility] Prevnar 13 (PCV13) Prevnar 13 (PCV13) 2020-03-28 Completed [facility] 15:01:00 [facility] Prevnar 13 (PCV13) Prevnar 13 (PCV13) 2020-03-28 Completed [facility] - 15:01:00 [facility] Prevnar 13 (PCV13) Prevnar 13 (PCV13) 2020-03-28 Completed [facility] - 15:01:00 [facility] Prevnar 13 (PCV13) Prevnar 13 (PCV13) 2020-03-28 Completed [facility] - 15:01:00 [facility] Prevnar 13 (PCV13) Prevnar 13 (PCV13) 2020-03-28 Completed [facility] - 15:01:00 [facility] Prevnar 13 (PCV13) Prevnar 13 (PCV13) 2020-03-28 Completed [facility] - 15:01:00 [facility] Prevnar 13 (PCV13) Prevnar 13 (PCV13) 2020-03-28 Completed [facility] - 15:01:00 [facility] Prevnar 13 (PCV13) Prevnar 13 (PCV13) 2020-03-28 Completed [facility] - 15:01:00 [facility] Prevnar 13 (PCV13) Prevnar 13 (PCV13) 2020-03-28 Completed [facility] 15:01:00 [facility] Prevnar 13 (PCV13) Prevnar 13 (PCV13) 2020-03-28 Completed [facility] 15:01:00 [facility] Prevnar 13 (PCV13) Prevnar 13 (PCV13) 2020-03-28 Completed [facility] 15:01:00 [facility] Prevnar 13 (PCV13) Prevnar 13 (PCV13) 2020-03-28 Completed [facility] 15:01:00 [facility] Prevnar 13 (PCV13) Prevnar 13 (PCV13) 2020-03-28 Completed [facility] 15:01:00 [facility] Prevnar 13 (PCV13) Prevnar 13 (PCV13) 2020-03-28 Completed [facility] 15:01:00 [facility] Prevnar 13 (PCV13) Prevnar 13 (PCV13) 2020-03-28 Completed [facility] 15:01:00 [facility] Prevnar 13 (PCV13) Prevnar 13 (PCV13) 2020-03-28 Completed [facility] 15:01:00 [facility] Prevnar 13 (PCV13) Prevnar 13 (PCV13) 2020-03-28 Completed [facility] - 15:01:00 [facility] Prevnar 13 (PCV13) Prevnar 13 (PCV13) 2020-03-28 Completed [facility] - 15:01:00 [facility] Prevnar 13 (PCV13) Prevnar 13 (PCV13) 2020-03-28 Completed [facility] - 15:01:00 [facility] Prevnar 13 (PCV13) Prevnar 13 (PCV13) 2020-03-28 Completed [facility] 15:01:00 [facility] Prevnar 13 (PCV13) Prevnar 13 (PCV13) 2020-03-28 Completed [facility] 15:01:00 [facility] Prevnar 13 (PCV13) Prevnar 13 (PCV13) 2020-03-28 Completed [facility] 15:01:00 [facility] Prevnar 13 (PCV13) Prevnar 13 (PCV13) 2020-03-28 Completed [facility] 15:01:00 [facility] Prevnar 13 (PCV13) Prevnar 13 (PCV13) 2020-03-28 Completed [facility] 15:01:00 [facility] Prevnar 13 (PCV13) Prevnar 13 (PCV13) 2020-03-28 Completed [facility] 15:01:00 [facility] Prevnar 13 (PCV13) Prevnar 13 (PCV13) 2020-03-28 Completed [facility] 15:01:00 [facility] Prevnar 13 (PCV13) Prevnar 13 (PCV13) 2020-03-28 Completed [facility] 15:01:00 [facility] Prevnar 13 (PCV13) Prevnar 13 (PCV13) 2020-03-28 Completed [facility] 15:01:00 [facility] Prevnar 13 (PCV13) Prevnar 13 (PCV13) 2020-03-28 Completed [facility] 15:01:00 [facility] Prevnar 13 (PCV13) Prevnar 13 (PCV13) 2020-03-28 Completed [facility] 15:01:00 [facility] Influenza High Dose 2020-01-11 Completed [facility] [place] 00:00:00 [facility] Influenza High Dose 2020-01-11 Completed [facility] [place] 00:00:00 [facility] Influenza High Dose 2019-01-20 Completed [facility] 00:00:00 [facility] Pneumococcal 2019-01-20 Completed [facility] Polysaccharide, 00:[facility]00 [place] [facility] PPSV[facility] (PNEUMOVAX[facility] Influenza High Dose 2019-01-20 Completed [facility] 00:00:00 [facility] Pneumococcal 2019-01-20 Completed [facility] Polysaccharide, 00:00:00 [place] [facility] PPSV23 (PNEUMOVAX) [facility] Pneumococcal 2016-12-11 Completed [facility] Polysaccharide, 00:00:00 [place] [facility] PPSV23 (PNEUMOVAX) [facility] Pneumococcal 2016-12-11 Completed [facility] Polysaccharide, 00:00:00 [place] [facility] PPSV23 (PNEUMOVAX) [facility] Pneumococcal 2016-12-[address] [facility] Polysaccharide 00:00:00 [facility] (Pneumovax) Vital Signs Vital Name Observation Time Observation Value Comments Source height 2021-12-30 13:50:00 63.00 [in_i] [facility] weight 2021-12-30 13:50:00 135 [lb_av] [facility] temperature 2021-12-30 13:50:00 98.4 [degF] [facility] bmi 2021-12-30 13:50:00 23.91 kg/m2 [facility] oximetry 2021-12-30 13:50:00 93 % [facility] respiratory rate 2021-12-30 13:50:00 16 /min Comm on [facility] blood pressure 2021-12-30 13:50:00 136 mm[Hg] [facility] - systolic [facility] blood pressure 2021-12-30 13:50:00 60 mm[Hg] [facility] - diastolic [facility] height 2021-12-17 15:20:00 63.00 [in_i] [facility] weight 2021-12-17 15:20:00 137.6 [lb_av] [facility] bmi 2021-12-17 15:20:00 24.37 kg/m2 [facility] height 2021-11-10 16:20:00 63.00 [in_i] [facility] weight 2021-11-10 16:20:00 137.6 [lb_av] [facility] bmi 2021-11-10 16:20:00 24.37 kg/m2 [facility] height 2021-10-08 09:30:00 63.00 [in_i] [facility] weight 2021-10-08 09:30:00 137.6 [lb_av] [facility] bmi 2021-10-08 09:30:00 24.37 kg/m2 [facility] height 2021-09-24 10:20:00 63.00 [in_i] [facility] weight 2021-09-24 10:20:00 137.6 [lb_av] [facility] temperature 2021-09-24 10:20:00 97.4 [degF] [facility] bmi 2021-09-24 10:20:00 24.37 kg/m2 [facility] oximetry 2021-09-24 10:20:00 97 % [facility] respiratory rate 2021-09-24 10:20:00 17 /min Comm on [facility] blood pressure 2021-09-24 10:20:00 132 mm[Hg] [facility] systolic [facility] blood pressure 2021-09-24 10:20:00 70 mm[Hg] [facility] - diastolic [facility] height 2021-08-20 13:50:00 63.00 [in_i] Common [facility] weight 2021-08-20 13:50:00 143.3 [lb_av] Common [facility] temperature 2021-08-20 13:50:00 98.1 [degF] Common [facility] bmi 2021-08-20 13:50:00 25.38 kg/m2 Common [facility] oximetry 2021-08-20 13:50:00 97 % Common [facility] respiratory rate 2021-08-20 13:50:00 17 /min Comm on [facility] blood pressure 2021-08-20 13:50:00 138 mm[Hg] Common [facility] - systolic [facility] blood pressure 2021-08-20 13:50:00 61 mm[Hg] Common [facility] - diastolic [facility] height 2021-08-20 14:00:00 63.00 [in_i] Common [facility] weight 2021-08-20 14:00:00 143.3 [lb_av] [facility] temperature 2021-08-20 14:00:00 98.1 [degF] Common [facility] bmi 2021-08-20 14:00:00 25.38 kg/m2 Common [facility] oximetry 2021-08-20 14:00:00 97 % Common [facility] respiratory rate 2021-08-20 14:00:00 17 /min Comm on [facility] blood pressure 2021-08-20 14:00:00 138 mm[Hg] Common [facility] - systolic [facility] blood pressure 2021-08-20 14:00:00 61 mm[Hg] Common [facility] - diastolic [facility] Systolic blood 2021-08-04 05:00:00 140 mm[Hg] Univer sity of pressure [facility] Diastolic blood 2021-08-04 05:00:00 47 mm[Hg] Unive rsity of [facility] Heart rate 2021-08-04 05:00:00 72 /min [facility] Respiratory rate 2021-08-04 05:00:00 15 /min [facility] Oxygen saturation in 2021-08-04 05:00:00 97 /min [facility] Arterial blood by [facility] Pulse oximetry [place] Body temperature 2021-08-04 03:12:00 37 Tamara [facility] Body height 2021-08-04 03:12:[address] [facility] Body weight 2021-08-04 03:12:00 64.411 kg [facility] BMI 2021-08-04 03:12:00 25.97 kg/m2 [facility] height 2021-07-30 08:40:00 63.00 [in_i] [facility] weight 2021-07-30 08:40:00 145 [lb_av] [facility] temperature 2021-07-30 08:40:00 97.5 [degF] [facility] bmi 2021-07-30 08:40:00 25.68 kg/m2 [facility] blood pressure 2021-07-30 08:40:00 132 mm[Hg] [facility] - systolic [facility] blood pressure 2021-07-30 08:40:00 76 mm[Hg] [facility] - diastolic [facility] height 2021-04-11 11:00:00 63.00 [in_i] [facility] weight 2021-04-11 11:00:00 148 [lb_av] [facility] temperature 2021-04-11 11:00:00 98 [degF] [facility] bmi 2021-04-11 11:00:00 26.21 kg/m2 [facility] height 2021-03-14 10:00:00 63.00 [in_i] [facility] weight 2021-03-14 10:00:00 148.1 [lb_av] Common [facility] temperature 2021-03-14 10:00:00 97.3 [degF] [facility] bmi 2021-03-14 10:00:00 26.23 kg/m2 [facility] oximetry 2021-03-14 10:00:00 97 % [facility] respiratory rate 2021-03-14 10:00:00 16 /min Comm on [facility] blood pressure 2021-03-14 10:00:00 135 mm[Hg] [facility] systolic [facility] blood pressure 2021-03-14 10:00:00 62 mm[Hg] [facility] diastolic [facility] Systolic blood 2021-03-11 22:37:00 113 mm[Hg] Univer sity of pressure [facility] Diastolic blood 2021-03-11 22:37:00 47 mm[Hg] Unive rsity of pressure [facility] Heart rate 2021-03-11 22:37:00 82 /min [facility] Body height 2021-03-11 22:37:00 160 cm [facility] Body weight 2021-03-11 22:37:00 65.772 kg [facility] BMI 2021-03-11 22:37:00 25.69 kg/m2 [facility] height 2020-12-11 14:40:00 63.00 [in_i] [facility] weight 2020-12-11 14:40:00 141.2 [lb_av] [facility] temperature 2020-12-11 14:40:00 97.4 [degF] [facility] bmi 2020-12-11 14:40:00 25.01 kg/m2 [facility] oximetry 2020-12-11 14:40:00 96 % [facility] respiratory rate 2020-12-11 14:40:00 16 /min Comm on [facility] blood pressure 2020-12-11 14:40:00 132 mm[Hg] [facility] - systolic [facility] blood pressure 2020-12-11 14:40:00 61 mm[Hg] [facility] - diastolic [facility] Weight 2016-10-01 15:38:00 [facility] BMI Calculated 2016-10-01 15:38:00 [facility] Height 2016-10-01 15:38:00 160.02 cm [facility] Respitory Rate 2016-10-01 15:38:00 [facility] Heart Rate 2016-10-01 15:38:00 [facility] Systolic (mm Hg) 2016-10-01 15:38:00 [facility] [place] Diastolic (mm Hg) 2016-10-01 15:38:00 [facility] Height 2016-07-02 15:24:00 160.02 cm [facility] Respitory Rate 2016-07-02 15:24:00 [facility] Heart Rate 2016-07-02 15:24:00 [facility] BMI Calculated 2016-07-02 15:24:00 [facility] Weight 2016-07-02 15:24:00 [facility] Systolic (mm Hg) 2016-07-02 15:24:00 [facility] Diastolic (mm Hg) 2016-07-02 15:24:00 [facility] [place] Procedures Procedure Date / Time Performing Clinician Source Performed CT ABDOMEN PELVIS WO 2021-08-04 03:59:53 [facility] LIPASE 2021-08-04 03:39:00 Morales Fitch [facility] COMP. METABOLIC PANEL 2021-08-04 03:39:00 [id number] CBC WITH DIFF 2021-08-04 03:39:00 Morales Fitch [facility] URINALYSIS 2021-08-04 03:39:00 Morales Fitch [facility] NOTICE OF PRIVACY 2021-08-04 02:24:14 Doctor Unassigned, No Univ [facility] PRACTICES Name Medical Branch CONSENT/REFUSAL FOR 2021-08-04 02:22:02 Doctor Unassigned, No Un iversity [facility] DIAGNOSIS AND TREATMENT Name Medical Branch Colonoscopy [facility] Endoscopy of GI tract [facility] Encounters Start End Encounter Admission Attending Care Care Encounter Source Date/Time Date/Time Type Type Clinicians Facility Department ID 2021-10-06 Outpatient Rondon, STLMLC STLC [id number] Common 16:18:00 Isra [facility] 2021-08-18 Outpatient Rondon, STLMLC STLMLC [id number] Common 09:23:08 Isra [facility] 2021-06-09 Outpatient Rondon, STLMLC STLMLC [id number] Common 10:56:01 Isra [facility] 2021-05-28 Outpatient Rondon, STLMLC STLMLC [id number] Common 08:20:00 Isra [facility] 2021-05-22 Outpatient Rondon, STLMLC STLMLC [id number] Common 15:37:00 Isra [facility] 2021-04-23 Outpatient Rondon, STLMLC STLMLC [id number] Common 14:32:51 Isra [facility] 2021-04-23 Outpatient Rondon, STLMLC STLMLC [id number] Common 14:27:21 Isra [facility] 2021-04-23 Outpatient Rondon, STLMLC STLMLC [id number] Common 14:26:14 Isra [facility] 2021-04-23 Outpatient Rondon, STLMLC STLMLC [id number] Common 14:26:02 Isra [facility] 2021-04-23 Outpatient Rondon, STLMLC STLMLC [id number] Common 14:25:31 Isra 47328 [facility] 2021-04-23 Outpatient Rondon, STLMLC STLMLC [id number] Common 14:24:42 Isra 71405 [facility] 2021-04-23 Outpatient Rondon, STLMLC STLMLC [id number] Common 14:24:14 Isra [id number] [facility] 2021-04-23 Outpatient Rondon, STLMLC STLMLC [id number] Common 14:22:04 Isra 54747 [facility] 2021-04-23 Outpatient STLMLC STLMLC [id number] Common 14:04:07 [id number] [facility] 2021-04-23 Outpatient STLMLC STLMLC [id number] Common 13:57:01 [id number] [facility] 2021-04-23 Outpatient STLMLC STLMLC [id number] Common 13:54:56 23811 [facility] 2021-04-23 Outpatient STLMLC STLMLC [id number] Common 13:49:08 [id number] [facility] 2021-04-23 Outpatient STLMLC STLMLC [id number] Common 12:36:47 [id number] [facility] 2021-04-23 Outpatient STLMLC STLMLC [id number] Common 12:20:24 [id number] [facility] 2022-03-10 2022-03-10 Outpatient Belia NAZARIO [facility] [id number] Univers 11:00:00 11:00:00 LIDIA alegria [facility] 2022-01-06 2022-01-06 (TEL) STLMLC STLMLC [id number] Co mmon 00:00:00 00:00:00 [facility] 2021-12-30 2021-12-30 OFFICE STLMLC STLMLC [id number] Co mmon 00:00:00 00:00:00 VISIT [facility] ESTAB PT - [facility] LEVEL 4 [facility] 2021-12-17 2021-12-17 OFFICE STLMLC STLMLC [id number] Co mmon 00:00:00 00:00:00 VISIT EST Spir it PT LEVEL 3 - [facility] 2021-12-17 2021-12-17 (TEL) STLMLC STLMLC [id number] Co mmon 00:00:00 00:00:00 [facility] 2021-12-12 2021-12-12 (TEL) STLMLC STLMLC [id number] Co mmon 00:00:00 00:00:00 [facility] 2021 2021 Outpatient Iyanoye_S [facility] [id number] Devoted 00:00:00 00:00:00 0901 [facility] 2021 2021 (TEL) STLMLC STLMLC [id number] Co mmon 00:00:00 00:00:00 [facility] 2021-11-25 2021-11-25 (TEL) STLMLC STLMLC [id number] Co mmon 00:00:00 00:00:00 [facility] 2021-11-18 2021-11-18 (TEL) STLMLC STLMLC [id number] Co mmon 00:00:00 00:00:00 [facility] 2021-11-12 2021-11-12 (TEL) STLMLC STLMLC [id number] Co mmon 00:00:00 00:00:00 [facility] 2021-11-10 2021-11-10 OFFICE STLMLC STLMLC [id number] Co mmon 00:00:00 00:00:00 VISIT EST Spir it PT LEVEL 3 [facility] 2021-11-10 2021-11-10 (TEL) STLMLC STLMLC [id number] Co mmon 00:00:00 00:00:00 [facility] 2021-10-28 2021-10-28 (TEL) STLMLC STLMLC [id number] Co mmon 00:00:00 00:00:00 [facility] 2021-10-10 2021-10-10 Outpatient [facility] [id number] Devoted 03:13:00 03:13:00 0715 Medica l Group 2021-10-09 2021-10-09 (WEB) STLMLC STLMLC [id number] Co mmon 00:00:00 00:00:00 [facility] 2021-10-08 2021-10-08 OL DIG E/M STLMLC STLMLC [id number] Common 00:00:00 00:00:00 [facility] 11-20 Spir it [facility] 2021-10-08 2021-10-08 (TEL) STLMLC STLMLC [id number] Co mmon 00:00:00 00:00:00 [facility] 2021-10-08 2021-10-08 (WEB) STLMLC STLMLC [id number] Co mmon 00:00:00 00:00:00 [facility] 2021-10-07 2021-10-07 (TEL) STLMLC STLMLC [id number] Co mmon 00:00:00 00:00:00 [facility] 2021-10-02 2021-10-02 (WEB) STLMLC STLMLC [id number] Co mmon 00:00:00 00:00:00 [facility] 2021-10-02 2021-10-02 (WEB) STLMLC STLMLC [id number] Co mmon 00:00:00 00:00:00 [facility] 2021-09-30 2021-09-30 (WEB) STLMLC STLMLC [id number] Co mmon 00:00:00 00:00:00 [facility] 2021-09-26 2021-09-26 (WEB) STLMLC STLMLC [id number] Co mmon 00:00:00 00:00:00 [facility] 2021-09-24 2021-09-24 OFFICE STLMLC STLMLC [id number] Co mmon 00:00:00 00:00:00 VISIT [facility] 4 [facility] 2021-09-17 2021-09-17 (TEL) STLMLC STLMLC [id number] Co mmon 00:00:00 00:00:00 [facility] 2021-08-27 2021-08-27 (TEL) STLMLC STLMLC [id number] Co mmon 00:00:00 00:00:00 [facility] 2021-08-21 2021-08-21 (TEL) STLMLC STLMLC [id number] Co mmon 00:00:00 00:00:00 [facility] 2021-08-20 2021-08-20 OFFICE STLMLC STLMLC [id number] Co mmon 00:00:00 00:00:00 VISIT [facility] ESTAB PT - CH[facility] LEVEL 4 [facility] 2021-08-20 2021-08-20 SUB ANNUAL STLMLC STLMLC [id number] Common 00:00:00 00:00:00 MCR [facility] WELLNESS - CHI VISIT [facility] 2021-08-11 2021-08-11 (TEL) STLMLC STLMLC [id number] Co mmon 00:00:00 00:00:00 [facility] 2021-08-03 2021-08-04 Emergency X [facility] ERT [id number] Univers 21:58:00 01:05:00 MORALES to [facility] 2021-08-03 2021-08-04 Emergency [facility] 1.2.840.114 [id number] Univers 21:58:00 01:05:00 Morales Alegria LEHIGH [id number] ity [facility] [id number] [facility] [phone] [address] 2021-07-30 2021-07-30 (TEL) STLMLC STLMLC [id number] Co mmon 00:00:00 00:00:00 [facility] 2021-07-30 2021-07-30 OFFICE STLMLC STLMLC [id number] Co mmon 00:00:00 00:00:00 VISIT EST Spir it PT LEVEL 3 - [facility] 2021-07-30 2021-07-30 (TEL) STLMLC STLMLC [id number] Co mmon 00:00:00 00:00:00 [facility] 2021-05-27 2021-05-27 (TEL) STLMLC STLMLC [id number] Co mmon 00:00:00 00:00:00 [facility] 2021-05-09 2021-05-09 (TEL) STLMLC STLMLC [id number] Co mmon 00:00:00 00:00:00 [facility] 2021-05-08 2021-05-08 (TEL) STLMLC STLMLC [id number] Co mmon 00:00:00 00:00:00 [facility] 2021-04-23 2021-04-23 (TEL) STLMLC STLMLC [id number] Co mmon 00:00:00 00:00:00 [facility] 2021-04-11 2021-04-11 OFFICE STLMLC STLMLC [id number] Co mmon 00:00:00 00:00:00 VISIT EST Spir it PT LEVEL 3 - [facility] 2021-04-11 2021-04-11 (TEL) STLMLC STLMLC [id number] Co mmon 00:00:00 00:00:00 [facility] 2021-04-09 2021-04-09 (TEL) STLMLC STLMLC [id number] Co mmon 00:00:00 00:00:00 [facility] 2021-04-07 2021-04-07 (TEL) STLMLC STLMLC [id number] Co mmon 00:00:00 00:00:00 [facility] 2021-03-14 2021-03-14 OFFICE STLMLC STLMLC [id number] Co mmon 00:00:00 00:00:00 VISIT [facility] ESTAB PT - [facility] LEVEL 4 [facility] 2021-03-14 2021-03-14 (TEL) STLMLC STLMLC [id number] Co mmon 00:00:00 00:00:00 [facility] 2021-03-11 2021-03-11 Outpatient Belia NAZARIO [facility] [id number] Univers 15:15:00 17:38:47 LIDIA alegria [facility] 2021-03-11 2021-03-11 Office GOLDIE Nazario 1.2.840.114 [id number] Univers 15:15:00 17:38:47 Visit Lidia Zhu KANDI [id number] ity of [facility] [id number] [phone] [facility] [address] 2021-03-11 2021-03-11 [facility] [id number] Univers 15:15:00 17:38:47 LIDIAMICKEY chacon f [facility] 2021-03-08 2021-03-08 [place] Department Worker Leola, Adc Lab Main [facility] 1.2.8 40.114 [id number] Univers 07:57:26 08:12:26 Visit Chance Paul [id number] ity of [id number] [place] [address] [facility] [phone] [address] 2021-03-08 2021-03-08 Outpatient R [facility] [id number] Univers 08:00:00 08:00:00 CHANCE to [facility] 2021-03-08 2021-03-08 Outpatient R [facility] [id number] Univers 08:00:00 08:00:00 CHANCE to [facility] 2021-03-08 2021-03-08 Orders Doctor THOMAS 1.2.840.114 [id number] Univers 00:00:00 00:00:00 Only Unassigned, JULIUS [id number] ity of [place] [facility] [id number] Manuel as [phone] [facility] [address] 2021-02-28 2021-02-28 Outpatient R JOSE [facility] [id number] Univers 07:55:14 23:59:00 LIBRADO chacon f [facility] 2021-02-28 2021-02-28 [facility] 1.2.840.114 [id number] Univers 07:55:14 23:59:00 Encounter Librado MILLER [id number] it[id number] [facility] [id number] [facility] [address] 2021-02-28 2021-02-28 Outpatient R JOSE ALBERTO, [facility] [id number] Univers 07:55:14 23:59:00 LIBRADO revelesy o f [facility] 2021-02-28 2021-02-28 [facility] 1.2.840.114 [id number] Univers 07:54:41 07:54:41 Encounter Librado MILLER [id number] ity of [place] [id number] [facility] [id number] [address] 2021-02-28 2021-02-28 [facility] 1.2.840.114 [id number] Univers 07:54:07 07:54:07 Encounter Librado [place] [id number] ity of [place] [id number] [facility] [id number] [address] 2021-02-07 2021-02-07 Outpatient R JOSE ALBERTO, [facility] [id number] Univers 09:20:00 09:31:58 LIBRADO revelesy o [facility] 2021-02-07 2021-02-07 Outpatient R JOSE ALBERTO, [facility] [id number] Univers 09:20:00 09:31:58 LIBRADO revelesy o [facility] 2021-02-07 2021-02-07 Outpatient R JOSE ALBERTO, [facility] [id number] Univers 09:20:00 09:31:58 LIBRADO revelesy o [facility] 2021-02-07 2021-02-07 Outpatient R JOSE ALBERTO, [facility] [id number] Univers 09:20:00 09:31:58 LIBRADO revelesy o [facility] 2021-02-07 2021-02-07 Office Jose Alberto, [facility] 1.2.840.114 [id number] Univers 09:01:02 09:31:58 Visit Librado MILLER [id number] ity of [place] [id number] [facility] [phone] Pa dical NAL 059 [facility] 2021-02-01 2021-02-01 [facility] [id number] Devoted 11:01:00 11:01:00 1106 Medica l Group 2021-01-16 2021-01-16 Outpatient R [facility] [id number] Univers 14:30:00 14:30:00 ity of [facility] 2020-12-12 2020-12-12 Orders Doctor THOMAS 1.2.840.114 [id number] Univers 00:00:00 00:00:00 Only Unassigned, JULIUS [id number] ity of [place] [facility] [id number] Manuel as [id number] [address] 2020-12-11 2020-12-11 [facility] [id number] Co mmon 00:00:00 00:00:00 VISIT Isidoro BUSTILLOS PT - [facility] LEVEL 4 [facility] 2020-12-06 2020-12-[address] [facility] 1.2.840.114 [id number] Univers 00:00:00 00:00:00 Secure Msg Wondiful [facility] [id number] ity of [employer] [id number] Manuel as Luis Enrique?Blea [phone] [address] Medical Office [facility] 2020-12-06 2020-12-[address] [facility] 1.2.840.114 [id number] Univers 00:00:00 00:00:00 Wondiful [facility] [id number] ity of [employer] [id number] Manuel as Luis Enrique?Blea [phone] [address] Office [facility] 2020-12-04 2020-12-[address] [facility] 1.2.840.114 [id number] Univers 00:00:00 00:00:00 Management Wondiful [facility] [id number] ity of [employer] [id number] Manuel as Luis Enrique?Blea [phone] [address] Office [facility] 2020-11-28 2020-11-28 [place] Department Worker Lab, Ang - Db [facility] 1.2.840.1 [id number] Univers 16:02:35 16:17:35 Visit Chela Knowles [facility] [id number] 0 ity of [employer] [id number] Manuel as Lius Enrique?Blea [phone] Pa haliemarielena rahman [address] [place] [facility] 2020-11-28 2020-11-28 Outpatient R ELENI [facility] [id number] Univers 15:15:00 16:02:20 WONDIFUL ity o f [facility] 2020-11-28 2020-11-28 Outpatient R ELENI [facility] [id number] Univers 15:15:00 16:02:20 WONDIFUL ity o f [facility] 2020-11-28 2020-11-28 [facility] 1.2.840.114 [id number] Univers 14:51:53 16:02:20 [facility] [id number] ity of [employer] [id number] Manuel as Luis Enrique?Blea [phone] Pa haliemarielena miguelcata [address] [place] [facility] 2020-11-28 2020-11-28 Outpatient R ELENI [facility] [id number] Univers 15:15:00 15:15:00 WONDIFUL ity o [facility] 2020-11-15 2020-11-15 Outpatient Belia CHURCHILL [facility] [id number] Univers 14:00:00 14:00:00 [facility] 2020-11-15 2020-11-15 Outpatient Belia CHURCHILL [facility] [id number] Univers 14:00:00 13:37:47 [facility] 2020-11-15 2020-11-15 Outpatient Belia CHURCHILL [facility] [id number] Univers 14:00:00 13:37:47 [facility] 2020-10-14 2020-10-[address] [facility] 1.2.840.114 [id number] Univers 00:00:00 00:00:00 Sam Duroline [id number] it y of [employer] [id number] Manuel as Professio [phone] Pa haliemarielena champ [address] [place] [address] Office Building One 2020-10-08 2020-10-08 Outpatient R KAVON [facility] [id number] Univers 14:20:00 15:23:11 JEN to [facility] 2020-10-08 2020-10-08 Outpatient R KAVON [facility] [id number] Univers 14:20:00 15:23:11 JEN to [facility] 2020-10-08 2020-10-08 Outpatient R KAVON, [facility] [id number] Univers 14:20:00 14:20:00 JEN lorraine [facility] 2020-10-08 2020-10-08 Urgent Provider, [facility] 1.2.840.114 [id number] Univers 13:57:06 14:17:06 Care Jen Talbert [facility] [id number] ity of [employer] [id number] Manuel as Professio [phone] [address] Office [facility] 2020-09-12 2020-09-12 Orders Doctor THOMAS 1.2.840.114 [id number] Univers 00:00:00 00:00:00 Only Unassigned, JULIUS [id number] ity of [place] [facility] [id number] Manuel as [phone] [address] 2020-09-04 2020-09-[address] [facility] 1.2.840.114 [id number] Univers 00:00:00 00:00:00 Wondiful [facility] [id number] ity of [employer] [id number] Manuel as Professio [phone] [address] Office [facility] 2020-08-05 2020-08-05 Outpatient R JOSE ALBERTO [facility] [id number] Univers 09:40:00 09:40:00 LIBRADO to o f [facility] 2020-08-05 2020-08-05 Office [facility] 1.2.840.114 [id number] Univers 09:15:43 09:35:40 Visit Librado Miller [id number] it[place] of [id number] Profess[place] [phone] [facility] 059 [facility] 2020-07-25 2020-07-25 Outpatient R JOSE ALBERTO, [facility] [facility] [id number] Univers 08:31:20 23:59:00 LIBRADO revelesy o f [facility] 2020-07-25 2020-07-25 Outpatient R JOSE ALBERTO, [facility] [id number] Univers 08:31:20 23:59:00 LIBRADO ity o f [facility] 2020-07-25 2020-07-25 Outpatient R JOSE ALBERTO, [facility] [id number] Univers 09:00:00 09:00:00 LIBRADO revelesy o [facility] 2020-07-10 2020-07-10 Telephone GOLDIE Nguyen 1.2.840.114 [id number] Univers 00:00:00 00:00:00 Y HEALTH 350.1.13.10 i ty of [place] [phone] [facility] 0[address] Branch 2020-06-28 2020-06-28 Orders Doctor THOMAS 1.2.840.114 [id number] Univers 00:00:00 00:00:00 Only Unassigned, JULIUS 350.1.13.10 ity of [place] [facility] 4.2.7.2.686 Manuel as [phone] [facility] 009 Branch 2020-06-25 2020-06-25 Outpatient R TANA VELEZ [facility] [id number] Univers 09:45:00 09:45:00 ity [facility] 2020-06-25 2020-06-25 Outpatient R TANA VELEZ [facility] [id number] Univers 09:45:00 09:45:00 ity [facility] 2020-06-25 2020-06-25 Outpatient R TANA VELEZ [facility] [id number] Univers 09:45:00 09:45:00 ity [facility] 2020-06-25 2020-06-25 Office Tana Velez [facility] 1.2.840.114 [id number] Univers 09:18:55 09:33:55 Visit Health 350.1.13.10 it [place] [phone] [place] [address] Branch Office Building 2020-06-11 2020-06-11 Outpatient R MARKUS [facility] [id number] Univers 13:30:00 14:34:44 KEISHA to [facility] 2020-06-11 2020-06-11 Outpatient Belia APARICIO [facility] [id number] Univers 13:30:00 14:34:44 KEISHA to [facility] 2020-06-11 2020-06-11 [facility] 1.2.225.251 [id number] Univers 12:55:34 14:34:44 Visit Keisha Miller 350.1.13.10 i [facility] [place] 4.2.7.2.686 Zayda Saleh [phone] [place] [address] Branch Building 2020-06-11 2020-06-11 Outpatient R MARKUS [facility] [id number] Univers 13:30:00 13:30:00 KEISHA to [facility] 2020-06-03 2020-06-03 Outpatient R JESSY [facility] [id number] Univers 08:50:00 08:50:00 INDIGO [facility] 2020-06-03 2020-06-03 Outpatient R JESSY, [facility] [id number] Univers 08:50:00 08:31:51 INDIGO lorraine [facility] 2020-06-03 2020-06-03 Outpatient R JESSY, [facility] [id number] Univers 08:50:00 08:31:51 INDIGO [facility] 2020-05-31 2020-05-31 Outpatient R JAN [facility] [id number] Univers 09:00:00 09:00:00 LIDIA alegria [facility] 2020-05-31 2020-05-31 Outpatient Belia NAZARIO [facility] [id number] Univers 09:00:00 09:00:00 LIDIA alegria [facility] 2020-05-31 2020-05-31 Outpatient Belia NAZARIO [facility] [id number] Univers 09:00:00 09:00:00 LIDIA alegria [facility] 2020-05-30 2020-05-30 [place] Department Worker Lab, Adc Fam Pob I [facility] 1.2. 840.114 [id number] Univers 10:38:21 10:58:21 Visit Chela Knowles [facility] 350.1.13.1 0 ity of [employer] 4.2.7.2.686 Manuel as Professio [phone] [address] One 2020-05-30 2020-05-30 [facility] [id number] Univers 10:00:00 10:36:57 WONDIFUL ity o f [facility] 2020-05-30 2020-05-30 Outpatient R ELENI [facility] [id number] Univers 10:00:00 10:36:57 WONDIFUL ity o f [facility] 2020-05-30 2020-05-30 Office [facility] 1.2.840.114 [id number] Univers 09:28:48 10:36:57 Visit Wonjosé luisful A Health 350.1.13.10 ity of [employer] 4.2.7.2.686 Manuel as Professio [phone] [address] One 2020-05-30 2020-05-30 Outpatient R ELENI [facility] [id number] Univers 10:00:00 10:00:00 WONDIFUL ity o f [facility] 2020-05-06 2020-05-06 Outpatient R JOSE ALBERTO [facility] [id number] Univers 09:00:00 09:00:00 QIAVIVIANJUN ity o f [facility] 2020-05-01 2020-05-[address] [facility] 1.2.955.682 [id number] Univers 00:00:00 00:00:00 Simi Health 350.1.13.10 it y of [employer] 4.2.7.2.686 Manuel as Professio [phone] [facility] nal [address] [place] [address] One 2020-04-24 2020-04-24 Viscose Department Worker [facility] UNIVERSIT 1..840.114 [id number] Univers 11:05:23 11:20:23 Visit Nguyen, Y HEALTH 350.1.13.10 ity of [place] [phone] [facility] [address] 2020-04-24 2020-04-24 Outpatient R WENDY [facility] [id number] Univers 09:30:00 10:57:46 JOSE to [facility] 2020-04-24 2020-04-24 Outpatient R WENDY [facility] [id number] Univers 09:30:00 10:57:46 JOSE to [facility] 2020-04-24 2020-04-24 Office HILTON Nguyen 1.2.840.114 [id number] Univers 09:17:48 10:57:46 Visit Jose MALONE 350.1.13.10 i ty of CL[place] [phone] [facility] [address] [place] 2020-04-24 2020-04-24 Outpatient R WENDY [facility] [id number] Univers 09:30:00 09:30:00 lorraine [facility] 2020-04-24 2020-04-24 Telephone Sd [facility] 1.2.399.596 [id number] Univers 00:00:00 00:00:00 Simi Health 350.1.13.10 it y of [employer] 4.2.7.2.686 Manuel as Professio [phone] [address] One 2020-04-24 2020-04-24 Telephone Sd [facility] 1.2.017.732 [id number] Univers 00:00:00 00:00:00 Simi Health 350.1.13.10 it y of [employer] 4.2.7.2.686 Manuel as Professio [phone] [address] One 2020-04-22 2020-04-22 Orders Doctor THOMAS 1.2.840.114 [id number] Univers 00:00:00 00:00:00 Only Unassigned, JULIUS 350.1.13.10 ity of [place] [facility] 4.2.7.2.686 Manuel as [phone] [facility] [address] 2020-04-18 2020-04-18 Viscose Department Worker [facility] UNIVERSIT 1.2.840.114 [id number] Univers 09:49:19 09:58:35 Visit Morena Gray HEALTH 350.1.13.10 ity of [place] [phone] [facility] [address] 2020-04-18 2020-04-18 Outpatient R ISAAC [facility] [id number] Univers 09:45:00 09:58:35 MORENA itlorraine [facility] 2020-04-18 2020-04-18 Outpatient R ISAAC [facility] [id number] Univers 09:45:00 09:58:35 MORENA to [facility] 2020-04-18 2020-04-[address] [facility] 1.2.813.134 [id number] Univers 08:45:47 09:38:59 Visit Morena HEALTH 350.1.13.10 i ty of [place] [phone] [facility] [address] 2020-04-18 2020-04-18 Outpatient R ISAAC [facility] [id number] Univers 09:00:00 09:00:00 MORENA itlorraine [facility] 2020-04-11 2020-04-11 Outpatient R SD [facility] [id number] Univers 13:30:00 16:02:08 SIMI yousuf [facility] 2020-04-11 2020-04-11 Outpatient R SD [facility] [id number] Univers 13:30:00 16:02:08 SIMI itlorraine [facility] 2020-04-11 2020-04-11 Outpatient R SD [facility] [id number] Univers 13:30:00 16:02:08 SIMIMOIZ to [facility] 2020-04-11 2020-04-11 [facility] 1.2.840.114 [id number] Univers 12:57:38 16:02:08 Visit [facility] Health 350.1.13.10 it y of [employer] 4.2.7.2.686 Manuel as Professio [phone] [facility] [address] [place] [address] Office Building One 2020-04-11 2020-04-11 Outpatient R SD [facility] [id number] Univers 13:30:00 13:30:00 SIMI ity of [facility] 2020-04-03 2020-04-03 Telephone [facility] 1.2.141.182 [id number] Univers 00:00:00 00:00:00 Simi Health 350.1.13.10 it y of [employer] 4.2.7.2.686 Manuel as Professio [phone] Pa dicky nal [address] [place] [address] Office Building One 2020-03-27 2020-03-27 Edwards [facility] 1.2.562.118 [id number] Univers 00:00:00 00:00:00 Simi Health 350.1.13.10 it y of [employer] 4.2.7.2.686 Manuel as Professio [phone] [facility] nal [address] [place] [address] Office Building One 2020-03-27 2020-03-27 Edwards [facility] 1.2.614.061 [id number] 00:00:00 00:00:00 Simi Health 350.1.13.10 [employer] 4.2.7.2.686 Professio [phone] [place] [address] Office Building One 2020-03-26 2020-03-26 Edwards [facility] 1.2.915.927 [id number] Univers 00:00:00 00:00:00 Simi Health 350.1.13.10 it y of [employer] 4.2.7.2.686 Manuel as Professio [phone] [facility] nal [address] [place] [address] Office Building One 2020-03-26 2020-03-26 Edwards [facility] 1.2.064.429 [id number] 00:00:00 00:00:00 Simi Health 350.1.13.10 [employer] 4.2.7.2.686 Professio [phone] [place] [address] Office Building One 2020-03-25 2020-03-[address] [facility] 1.2.840.114 [id number] Univers 00:00:00 00:00:00 Sam Health 350.1.13.10 it y of [employer] 4.2.7.2.686 Manuel as Professio [phone] [address] Office [facility] 2020-03-25 2020-03-[address] [facility] 1.2.840.114 [id number] 00:00:00 00:00:00 Sam Health 350.1.13.10 [employer] 4.2.7.2.686 Professio [phone] [place] [address] Office Building [facility] 2020-03-01 2020-03-01 Orders Doctor THOMAS 1.2.840.114 [id number] Univers 00:00:00 00:00:00 Only Unassigned, JULIUS 350.1.13.10 ity of [place] [facility] 4.2.7.2.686 Manuel as [phone] [address] 2020-03-01 2020-03-01 Orders Doctor THOMAS 1.2.840.114 [id number] 00:00:00 00:00:00 Only Unassigned, JULIUS 350.1.13.10 [place] [facility] 4.2.7.2.[phone] [facility] 2020-02-29 2020-02-[address] [facility] 1.2.840.114 [id number] Univers 00:00:00 00:00:00 Secure Msg Unassigned, Health 350.1.13.10 ity of [place] [employer] 4.2.7.2.686 Manuel as Professio [phone] [address] Office [facility] 2020-02-29 2020-02-[address] [facility] 1.2.840.114 [id number] 00:00:00 00:00:00 Secure Msg Unassigned, Health 350.1.13.10 [place] [employer] 4.2.7.2.686 Professio [phone] [place] [address] Office Building [facility] 2020-02-26 2020-02-[address] [facility] 1.2.127.710 [id number] Univers 00:00:00 00:00:00 Simi Health 350.1.13.10 it y of [employer] 4.2.7.2.686 Manuel as Professio [phone] [address] Office [facility] One 2020-02-26 2020-02-26 [facility]phone [facility] 1.2.782.458 [id number] 00:00:00 00:00:00 Simi Health 350.1.13.10 [employer] 4.2.7.2.686 Professio [phone] [place] [address] Office [facility] One 2020-02-01 2020-02-01 [facility] 1.2.840.114 [id number] [facility] 00:00:00 00:00:00 Sam Health 350.1.13.10 it y of [employer] 4.2.7.2.686 Manuel as Professio [phone] [address] Office [facility] 2020-02-01 2020-02-01 [facility] 1.2.840.114 [id number] 00:00:00 00:00:00 Sam Health 350.1.13.10 [employer] 4.2.7.2.686 Professio [phone] [place] [address] Office [facility] 2020-01-31 2020-01-31 Orders Doctor GUZMAN 1.2.840.114 [id number] [facility] 00:00:00 00:00:00 Only Unassigned, JULIUS 350.1.13.10 ity of [place] [facility] 4.2.7.2.686 Manuel as [phone] [address] 2020-01-31 2020-01-31 Orders Doctor GUZMAN 1.2.840.114 [id number] 00:00:00 00:00:00 Only Unassigned, JULIUS 350.1.13.10 [place] [facility] 4.2.7.2.686 [phone] 009 2020-01-23 2020-01-23 Orders Doctor THOMAS Contreras.2.840.114 [id number] Univers 00:00:00 00:00:00 Only Unassigned, JULIUS 350.1.13.10 ity of [place] [facility]OSPITAL 4.2.7.2.686 Manuel as [phone] [address] 2020-01-23 2020-01-23 Orders Doctor GUZMAN 1.2.840.114 [id number] 00:00:00 00:00:00 Only Unassigned, JULIUS 350.1.13.10 [place] [facility] 4.2.7.2.686 [id number] 009 2020-01-09 2020-01-09 Telephone [facility] 1.2.840.114 [id number] [facility] 00:00:00 00:00:00 Sam Health 350.1.13.10 it y of [employer] 4.2.7.2.686 Manuel as Professio [phone] [address] Office Building One 2020-01-09 2020-01-09 Telephone [facility] 1.2.840.114 [id number] 00:00:00 00:00:00 Sam Health 350.1.13.10 [employer] 4.2.7.2.686 Professio [phone] [place] [address] Office Building One 2020-01-08 2020-01-08 Outpatient R [facility] [id number] Univers 16:40:00 16:40:00 ity of [facility] 2020-01-08 2020-01-08 Urgent Provider, [facility] 1.2.339.739 [id number] 16:10:58 16:30:58 Care [facility] 350.1.13.10 Care [employer] 4.2.7.2.686 Professio [phone] [place] [address] Office Building One 2020-01-08 2020-01-08 Urgent Provider, [facility] 1.2.840.114 [id number] [facility] 16:10:58 16:30:58 Care Anene, Simi Health 350.1.13.10 ity of [employer] 4.2.7.2.686 Manuel as Professio [phone] [address] Office Building One 2019-11-29 2019-11-29 Orders Doctor GUZMAN 1.2.840.114 [id number] 00:00:00 00:00:00 Only Unassigned, JULIUS 350.1.13.10 [place] [facility] 4.2.7.2.686 [id number] 009 2019-11-29 2019-11-29 Orders Doctor GUZMAN 1.2.840.114 [id number] Univers 00:00:00 00:00:00 Only Unassigned, JULIUS 350.1.13.10 ity of [place] [facility]OS[facility] 4.2.7.2.686 Manuel as [phone] [address] 2019-11-17 2019-11-18 Office [facility] 1.2.840.114 [id number] 08:28:10 17:49:23 Visit Lidia Miller 350.1.13.10 [place] 4.2.7.2.686 Professio [phone] [address] 2019-11-17 2019-11-18 Office [facility] 1.2.840.114 [id number] Univers 08:28:10 17:49:23 Visit Lidia Miller 350.1.13.10 ity of [place] Profess[place] [phone] Pa dical [address] 2019-11-17 2019-11-17 Outpatient R [facility] [id number] Univers 08:45:00 08:45:00 LIDIA to o f [facility] 2019-11-13 2019-11-13 Outpatient R [facility] [id number] Univers 09:00:00 09:00:00 SENDIL itlorraine of [facility] 2019-11-13 2019-11-13 Orders Doctor THOMAS 1.2.840.114 [id number] Univers 00:00:00 00:00:00 Only Unassigned, JULIUS 350.1.13.10 ity of [place] [facility] 4.2.7.2.686 Manuel as [phone] [address] 2019-11-01 2019-11-01 Telephone [facility] 1.2.840.114 [id number] Univers 00:00:00 00:00:00 Sam Miller 350.1.13.10 i ty of [place]2.[place].2.[place] Profess[place] [phone] Pa dical [address] 2019-10-27 2019-10-27 Office [facility] 1.2.840.114 [id number] Univers 09:30:53 10:29:54 Visit Lidia Miller 350.1.13.10 ity of [place].7.2.[place] Profess[place] [phone] Pa dical nal 205 [facility] 2019-10-27 2019-10-27 Out[facility] [id number] [facility] 10:00:00 10:00:00 LIDIA to o f [facility] 2019-10-27 2019-10-27 Telephone [facility] 1.2.830.035 [id number] [facility] 00:00:00 00:00:00 Librado Miller 350.1.13.10 ity of [place].2.[place] [phone] Pa dical nal 059 [facility] 2019-10-27 2019-10-27 Telephone [facility] 1.2.126.257 [id number] [facility] 00:00:00 00:00:00 Librado Miller 350.1.13.10 ity of [place].2.[place] [phone] Pa dical nal 059 [facility] 2019-10-21 2019-10-21 Case [facility] 1.2.840.114 [id number] Univers 00:00:00 00:00:00 Management Chela Miller 350.1.13.10 ity of [place].7.2.[place] [phone] Pa dical nal 044 [facility] 2019-10-20 2019-10-20 [facility] 1.2.840.114 [id number] [facility] 00:00:00 00:00:00 Sam Miller 350.1.13.10 i ty of [place] 4[place]2.7.2.[place] Profess[place] [phone] Pa dical nal 044 [facility] 2019-10-17 2019-10-17 Office [facility] 1.2.840.114 [id number] Univers 11:20:37 12:12:34 Visit Librado Miller 350.1.13.10 ity of [place]2.7.2.[place] Profess[place] [phone] [facility] nal 9 [facility] 2019-10-17 2019-10-17 Outpatient R JOSE ALBERTO [facility] [id number] Univers 11:40:00 11:40:00 CHIQUISGUMARO yousuf o f [facility] 2019-10-16 2019-10-16 Telephone [facility] 1.2.574.979 [id number] Univers 00:00:00 00:00:00 Simi [employer] 350.1.13.10 i ty of [place].2.[place] Profess[place] [phone] [facility] nal [address] [place] [address] 2019-10-10 2019-10-10 Refill [facility] 1.2.840.114 [id number] Univers 00:00:00 00:00:00 Simi Health 350.1.13.10 it y of [employer] 4.2.7.2.686 Manuel as Professio [phone] [facility] [address] [place] Office [facility] One 2019-09-07 2019-09-07 Telephone [facility] 1.2.152.977 [id number] Univers 00:00:00 00:00:00 Sendil [facility] 350.1.13.10 ity of [place] [phone] [address] Office [facility] 2019-09-01 2019-09-01 Office [facility] 1.2.840.114 [id number] Univers 11:04:23 11:45:55 Visit Sendday Beth.HTrina Miller 350.1.13.10 ity of [place].2.[place] [phone] [address] 2019-09-01 2019-09-01 Outpatient R RACHELE [facility] [id number] Univers 11:00:00 11:00:00 OLI to [facility] 2019-07-21 2019-07-21 Outpatient R VAHID [facility] [id number] Univers 10:30:00 10:30:00 SAM to [facility] 2019-07-21 2019-07-21 Outpatient R ELENI, [facility] [id number] [facility] 09:15:00 09:15:00 WONDIFUL ity o f [facility] 2019-07-21 2019-07-21 Telemedici [facility] 1.2.840.114 [id number] Univers 07:53:52 08:08:52 ne Visit Sam Miller 350.1.13.10 ity of [place].2.[place] Profess[place] [phone] Pa dical nal 044 [facility] 2019-07-10 2019-07-10 [facility] 1.2.840.114 [id number] Univers 00:00:00 00:00:00 Simi Health 350.1.13.10 it y of [employer] 4.2.7.2.686 [place] as Professio [phone] Pa dical nal [address] [place] Office [facility] 2019-06-09 2019-06-09 [facility] 1.2.840.114 [id number] Univers 00:00:00 00:00:00 Simi Health 350.1.13.10 it y of [employer] 4.2.7.2.686 Manuel as Professio [phone] Pa dicky nal 044 [facility] 2019-05-12 2019-05-12 [place] Department Worker Pc, [facility] Vascular Room 1 [facility] 1.2.840.114 [id number] [facility] 08:03:52 12:08:17 Visit Oli Jeffrey 350.1.13. 10 ity of [place] [phone] Pa dical nal 059 [facility] 2019-05-12 2019-05-12 [place] Department Worker Pc, [facility] Vascular Room 1 - [facility] 1.2.840.114 [id number] [facility] 08:03:22 12:07:58 Visit Oli Jeffrey 350.1.13. 10 ity of [place] [phone] Pa dical nal 059 [facility] 2019-05-01 2019-05-02 Office [facility] 1.2.840.114 [id number] Univers 16:37:44 13:25:33 Visit Simi Malone 350.1.13.10 it y of [employer] 4.2.7.2.686 Manuel as Professio [phone] [address] 2019-05-02 2019-05-02 Office [facility] 1.2.840.114 [id number] Univers 09:14:48 10:02:07 Visit Librado Miller 350.1.13.10 ity of [place].2.[place] [phone] [facility] 059 [facility] 2019-05-02 2019-05-02 Telephone [facility] 1.2.923.420 [id number] Univers 00:00:00 00:00:00 Simi Health 350.1.13.10 it y of [employer] 4.2.7.2.686 [place] as Professio [phone] [address] 2019-04-30 2019-05-01 Emergency X SINGER [facility] ERT [id number] Univers 23:28:52 01:43:00 JOSE to [facility] 2019-04-30 2019-05-01 Emergency [facility] 1.2.821.098 [id number] Univers 23:28:52 01:43:00 Jose Miller 350.1.13.10 i ty [place].2.[place] [phone] [facility] [address] [place] 2019-04-18 2019-04-18 Telephone [facility] 1.2.546.602 [id number] Univers 00:00:00 00:00:00 Simi Health 350.1.13.10 it y of [employer] 4.2.7.2.686 Manuel as Professio [phone] [address] 2019-03-09 2019-03-09 Out[facility] [id number] Univers 17:12:34 23:59:00 SIMI to [facility] 2018-12-07 2018-12-07 Outpatient [facility] [id number] Common 08:19:00 08:19:[address] [facility] 2018-12-06 2018-12-06 Outpatient [facility] [id number] Common 10:40:00 10:40:[address] [facility] 2018-11-22 2018-11-22 Outpatient [facility] [id number] Common 09:02:00 09:02:[address] [facility] 2018-11-18 2018-11-18 Outpatient [facility] [id number] Common 09:05:00 09:05:[address] [facility] 2018-11-10 2018-11-10 Outpatient [facility] [id number] Common 16:00:00 16:00:[address] [facility] 2018-10-19 2018-10-19 Outpatient [facility] [id number] Common 14:30:00 14:30:[address] [facility] 2018-06-14 2018-06-14 [facility] [id number] Common 08:32:00 08:32:[address] [facility] 2018-06-07 2018-06-07 [facility] [id number] Common 13:45:00 13:45:[address] [facility] 2016-10-01 2016-10-02 [facility]26 [id number] Memoria 15:22:00 04:59:00 belia Doe 2016-10-01 2016-10-02 [facility] [id number] Memoria 15:22:00 04:59:00 belia Doe 2016-10-01 2016-10-01 Outpatient Nguyễn [facility] [id number] 10:22:00 23:59:00 [facility] 2016-07-02 2016-07-03 Outpatient [facility] [id number] [id number] Memoria 15:08:00 04:59:00 [place] 00 [place] [facility] [place] 2016-07-02 2016-07-03 [id number] Memoria 15:08:00 04:59:00 r [place] 00 [place] [facility] [place] 2016-07-02 2016-07-02 Outpatient Nguyễn, [facility] [id number] 10:08:00 23:59:00 Darwin 00 Darrell [facility] 2010-10-24 2010-10-24 Orders Doctor THOMAS [id number] 00:00:00 00:00:00 Only Unassigned, JULIUS [id number] ity of [place] [facility] [id number] Manuel as [phone] Medi jorge l 009 Branch Results Test Description Test Time Test Comments Results Result Comments Source Zoila 2021-10-29 result [facility] - 00:00:00 [facility] COMP. METABOLIC PANEL (44792) 2021-08-04 04:03:33 Test Item Value Reference Range Interpretation Comme nts NA (test code = 7480911799) 131 mmol/L 135-145 L K (test code = 1222788056) 5.3 mmol/L 3.5-5.0 H CL (test code = 1758339246) 97 mmol/L 98-108 L CO2 TOTAL (test code = 0273879735) 23 mmol/L 23-31 AGAP (test code = 7704169196) 2-16 BUN (test code = 9029094542) 23 mg/dL 7-23 GLUCOSE (test code = 3254128592) 418 mg/dL 70-110 H CREATININE (test code = 1.05 mg/dL 0.50-1.04 H 0414642515) TOTAL BILI (test code = 0.4 mg/dL 0.1-1.5 1742983726) CALCIUM (test code = 5591215797) 9.8 mg/dL 8.6-10.6 T PROTEIN (test code = 3207813907) 6.5 g/dL 6.3-8.2 ALBUMIN (test code = 8938969670) 4.1 g/dL 3.5-5.0 ALK PHOS (test code = 6650250897) 82 U/L 34-122 ALTv (test code = 1742-6) 14 U/L 5-35 AST(SGOT) (test code = 4745610081) 17 U/L 13-40 eGFR (test code = 5282718558) mL/min/1.73m2 ELLIOT (test code = ELLIOT) Association of Glomerular Filtration Rate (GFR) and Staging of Kidney Disease* + +-------- + ------+| GFR (mL/min/1.73 m2) ?| With Kidney Damage ?| ?Without Kidney Damage+ +-- + +| ?>90 ?| ?Stage one ?| ? Normal ?+ +------- + -------+| ?60-89 ?| ?Stage two ?| ? Decreased GFR ? + +-------- + ------+| ?30-59 ?| ?Stage three ?| ? Stage three ? + +-------- + ------+| ?15-29 ?| ?Stage four ? | ? Stage four ?+ +------- + -------+| ?<15 (or dialysis) ? ?| ?Stage five ? | ? Stage five ?+ +------- + -------+ *Each stage assumes the associated GFR level has been in effect for at least three months. ?Stages 1 to 5, with or without kidney disease, indicate chronic kidney disease. Notes: Determination of stages one and two (with eGFR >59mL/min/1.73 m2) requires estimation of kidney damage for at least three months as defined by structural or functional abnormalities of the kidney, manifested by either:Pathological abnormalities or Markers of kidney damage (including abnormalities in the composition of the blood or urine or abnormalities in imaging tests). Lab Interpretation (test code = Abnormal 59589-1) [facility]53 Test Item Value Reference Range Interpretation Comments LIPASE (test code = 8379408853) 396 U/L 0-220 H Lab Interpretation (test code = Abnormal 91062-7) [facility] WITH [id number] 03:45:51 Test Item Value Reference Range Interpretation Comments WBC (test code = See_Comment H [Automated 6690-2) message] The system which generated this result transmit bruna reference range : 4.30 - 11.10 10*3/?L. The reference range was not used to interpret this result as normal/abnormal . RBC (test code = See_Comment L [Automated 789-8) message] The system which generated this result transmit bruna reference range : 3.93 - 5.25 10*6/?L. The reference range was not used to interpret this result as normal/abnormal . HGB (test code = 8.2 g/dL 11.6-15.0 L 718-7) HCT (test code = 26.4 % 35.7-45.2 L 4544-3) MCV (test code = 88.0 fL 80.6-95.5 787-2) MCH (test code = 27.3 pg 25.9-32.8 785-6) MCHC (test code = 31.1 g/dL 31.6-35.1 L 786-4) RDW-SD (test code = 50.9 fL 39.0-49.9 H 87115-3) RDW-CV (test code = 15.7 % 12.0-15.5 H 788-0) PLT (test code = See_Comment H [Automated 777-3) message] The system which generated this result transmit bruna reference range : 166 - 358 10*3/ ?L. The reference range was not u sed to interpret th is result as normal/abnormal . MPV (test code = 10.4 fL 9.5-12.9 06336-7) NRBC/100 WBC (test See_Comment [Automat ed code = 1124199266) message] The system which generated this result transmit bruna reference range : 0.0 - 10.0 /100 WBCs. The reference range was not used to interpret this result as normal/abnormal . NRBC x10^3 (test code See_Comment [Auto mated = 4155307434) message] The system which generated this result transmit bruna reference range : 10*3/?L. The reference range was not used to interpret this result as normal/abnormal . GRAN MAT (NEUT) % 80.7 % (test code = 770-8) IMM GRAN % (test code 0.60 % = 9709739087) LYMPH % (test code = 9.4 % 736-9) MONO % (test code = 6.6 % 5905-5) EOS % (test code = 1.8 % 713-8) BASO % (test code = 0.9 % 706-2) GRAN MAT x10^3(ANC) 13.34 10*3/uL 1.88-7.09 H (test code = 6723932186) IMM GRAN x10^3 (test 0.10 10*3/uL 0.00-0.06 H code = 0358198335) LYMPH x10^3 (test code 1.55 10*3/uL 1.32-3.29 = 731-0) MONO x10^3 (test code 1.09 10*3/uL 0.33-0.92 H = 742-7) EOS x10^3 (test code = 0.29 10*3/uL 0.03-0.39 711-2) BASO x10^3 (test code 0.15 10*3/uL 0.01-0.07 H = 704-7) Lab Interpretation Abnormal (test code = 10184-3) [facility] [id number] 08:26:00 Test Item Value Reference Range Interpretation Comments POC-GLUCOSE METER 175 mg/dL 70-110 H TESTED AT [facility] 6720 (BEAKER) (test code = [place] 1538) [address] [id number] 07:30:00 Test Item Value Reference Range Interpretation Comments MAGNESIUM (BEAKER) 1.8 mg/dL 1.6-2.6 Specimen slightly (test code = 627) hemolyzed [id number] 07:30:00 Test Item Value Reference Range Interpretation Comments PHOSPHORUS (BEAKER) 3.2 mg/dL 2.3-4.7 Specimen slightly (test code = 604) hemolyzed BASIC METABOLIC [id number] 07:30:00 Test Item Value Reference Range Interpretation [...] 697) EGFR (BEAKER) (test 68 mL/min/1.73 ESTIMA BRUNA GFR IS code = 1092) sq m NOT ACCURATE CREATININE CLEARANCE IN PREDICTING GLOMERULAR FILTRATION RATE . ESTIMATED GFR I S NOT APPLICABLE FOR DIALYSIS PATIEN TS. CBC W/PLT COUNT & AUTO [id number] 06:50:00 Test Item Value Reference Range Interpretation [...] PERCENT (BEAKER) (test code = 2801) POCT-GLUCOSE [id number] 21:15:00 Test Item Value Reference Range Interpretation Comments POC-GLUCOSE METER 246 mg/dL 70-110 H TESTED AT [place] [address] ([facility]) (test code = [facility] 1538) [address] POCT-GLUCOSE [id number] 17:16:00 Test Item Value Reference Range Interpretation Comments POC-GLUCOSE METER 323 mg/dL 70-110 H TESTED AT [place] [address] ([facility]) (test code = [facility] 1538) [address] POCT-GLUCOSE [id number] 13:13:00 Test Item Value Reference Range Interpretation Comments POC-GLUCOSE METER 250 mg/dL 70-110 H TESTED AT [place] [address] (BEAKER) (test code = [facility] 1538) [address] POCT-GLUCOSE [id number] 08:26:00 Test Item Value Reference Range Interpretation Comments POC-GLUCOSE METER 261 mg/dL 70-110 H TESTED AT [place] [id number] ([facility]) (test code = [facility] 1538) [address] CALCIUM, [id number] 06:39:00 Test Item Value Reference Range Interpretation Comments CALCIUM IONIZED (BEAKER) (test 1.08 mmol/L 1.12-1.27 L code = 698) PH, BLOOD (BEAKER) (test code = 7.47 1810) [id number] 05:53:00 Test Item Value Reference Range Interpretation Comments PHOSPHORUS (BEAKER) (test code = 4.1 mg/dL 2.3-4.7 604) [id number] 05:53:00 Test Item Value Reference Range Interpretation Comments MAGNESIUM (BEAKER) (test code = 1.7 mg/dL 1.6-2.6 627) BASIC METABOLIC [id number] 05:53:00 Test Item Value Reference Range Interpretation [...] 697) EGFR (BEAKER) (test 60 mL/min/1.73 ESTIMA BRUNA GFR IS code = 1092) sq m NOT ACCURATE CREATININE CLEARANCE IN PREDICTING GLOMERULAR FILTRATION RATE . ESTIMATED GFR I S NOT APPLICABLE FOR DIALYSIS PATIEN TS. CBC W/PLT COUNT & AUTO [id number] 05:32:00 Test Item Value Reference Range Interpretation [...] PERCENT (BEAKER) (test code = 2801) POCT-GLUCOSE [id number] 22:58:00 Test Item Value Reference Range Interpretation Comments POC-GLUCOSE METER 390 mg/dL 70-110 H Notified R Jose or ([facility]) (test code = Chapo t refused repeat 1536) test/TESTED AT [facility] [address] [place] [address] POCT-GLUCOSE [id number] 21:18:00 Test Item Value Reference Range Interpretation Comments POC-GLUCOSE METER 404 mg/dL 70-110 HH Notified R Jose FELIX/TESTED (BEAKER) (test code = AT [facility] [address] 1538) [place] [address] POCT-GLUCOSE [id number] 17:45:00 Test Item Value Reference Range Interpretation Comments POC-GLUCOSE METER 217 mg/dL 70-110 H TESTED AT [place] [address] ([facility]) (test code = [place] [facility] 1538) [address] POCT-GLUCOSE [id number] 12:07:00 Test Item Value Reference Range Interpretation Comments POC-GLUCOSE METER 209 mg/dL 70-110 H TESTED AT [place] [address] ([facility]) (test code = [place] [facility] 1538) [address] HEMOGLOBIN [id number] 07:58:00 Test Item Value Reference Range Interpretation Comments HEMOGLOBIN A1C (BEAKER) (test code = 5.8 % 4.3-6.1 368) TSH/FREE T4 IF [id number] 05:30:00 Test Item Value Reference Range Interpretation Comments THYROID STIMULATING HORMONE 1.75 uIU/mL 0.35-4.94 (BEAKER) (test code = 772) POCT-GLUCOSE [id number] 05:21:00 Test Item Value Reference Range Interpretation Comments POC-GLUCOSE METER 213 mg/dL 70-110 H TESTED AT [place] [address] ([facility]) (test code = [place] [facility] 1538) [address] [id number] 05:11:00 Test Item Value Reference Range Interpretation Comments PHOSPHORUS (BEAKER) (test code = 4.0 mg/dL 2.3-4.7 604) [id number] 05:11:00 Test Item Value Reference Range Interpretation Comments MAGNESIUM (BEAKER) (test code = 1.7 mg/dL 1.6-2.6 627) BASIC METABOLIC [id number] 05:11:00 Test Item Value Reference Range Interpretation [...] 697) EGFR (BEAKER) (test 60 mL/min/1.73 ESTIMA BRUNA GFR IS code = 1092) sq m NOT ACCURATE CREATININE CLEARANCE IN PREDICTING GLOMERULAR FILTRATION RATE . ESTIMATED GFR I S NOT APPLICABLE FOR DIALYSIS PATIEN TS. LIPID [id number] 05:11:00 Test Item Value Reference Range Interpretation Comments TRIGLYCERIDES (BEAKER) (test code = 197 mg/dL 540) CHOLESTEROL (BEAKER) (test code = 158 mg/dL 631) HDL CHOLESTEROL (BEAKER) (test code 29 mg/dL = 976) LDL CHOLESTEROL CALCULATED (BEAKER) 90 mg/dL (test code = 633) Triglyceride Reference Range: Low Risk <150 Borderline 150-199 High Risk 200- 499 Very High Risk >=500Cholesterol Reference Range: Low Risk <200 Borderline 200-239 High Risk >240HDL Cholesterol Reference Range: Low Risk >=60 High Risk <40LDL Cholesterol Reference Range: Optimal <100 Near Optimal 100-129 Borderline 130-159 High 160-189 Very High >=190CBC W/PLT COUNT & AUTO [id number] 04:48:00 Test Item Value Reference Range Interpretation [...] PERCENT (BEAKER) (test code = 2801) CALCIUM, [id number] 04:13:00 Test Item Value Reference Range Interpretation Comments CALCIUM IONIZED (BEAKER) (test 1.15 mmol/L 1.12-1.27 code = 698) PH, BLOOD (BEAKER) (test code = 7.47 1810) POCT-GLUCOSE [id number] 21:03:00 Test Item Value Reference Range Interpretation Comments POC-GLUCOSE METER 220 mg/dL 70-110 H TESTED AT [facility] 6720 (BEAKER) (test code = [place] 1538) [address] IRON, TIBC, % SAT. (WITHOUT FERRITIN)2016-12-13 19:01:00 Test Item Value Reference Range Interpretation Comments IRON (BEAKER) (test code = 547) 23 ug/dL 40-160 L TOTAL IRON BINDING CAPACITY 404 ug/dL 250-450 (AKER) (test code = 769) IRON % SATURATION (2) ([facility]) 6 % 20-55 L (test code = 2590) POCT-GLUCOSE [id number] 17:23:00 Test Item Value Reference Range Interpretation Comments POC-GLUCOSE METER 371 mg/dL 70-110 H TESTED AT [facility] 6720 ([facility]) (test code = [place] 1538) [address] POCT-GLUCOSE [id number] 05:33:00 Test Item Value Reference Range Interpretation Comments POC-GLUCOSE METER 227 mg/dL 70-110 H TESTED AT [address] ([facility]) (test code [facility] [place] = 1538) [address] POCT-GLUCOSE [id number] 20:59:00 Test Item Value Reference Range Interpretation Comments POC-GLUCOSE METER 266 mg/dL 70-110 H TESTED AT [address] ([facility]) (test code [facility] [place] = 1538) [address] POCT-GLUCOSE [id number] 20:58:00 Test Item Value Reference Range Interpretation Comments POC-GLUCOSE METER 300 mg/dL 70-110 H TESTED AT [address] ([facility]) (test code [facility] [place] = 1538) [address] POCT-GLUCOSE [id number] 20:58:00 Test Item Value Reference Range Interpretation Comments POC-GLUCOSE METER 177 mg/dL 70-110 H TESTED AT [address] ([facility]) (test code [facility] [place] = 1538) [address] HEMORRHAGE IMAGING, [id number] 13:30:00FINAL REPORT PROCEDURE: HEMORRHAGE STUDY with RBCs CPT CODE: 07934 INDICATION: G astrointestinal Bleeding PROTOCOL: 21.5 mCi of Tc-99m was injected intravenously as labeled autologous red blood cells. Flow images of the abdomen were obtained, followed by serial images for approximately 60 minutes. Additional images were obtained 6 hours after tracer injection. Additional images were obtained 24 hours after injection. FINDINGS: Early images show physiological tracer distribution in the blood pool. Late images show mild tracer uptake in the right lower abdomen. IMPRESSION: Mild, interval hemorrhage. No specific bleeding site is identified, but the pattern suggests a source in themid or distal small bowel. Signed: Yoni Ly MDReport Verified Date/Time: 12/12/2016 13:30:53 Reading Location: [address] Reading Room POCT-GLUCOSE [id number] 11:21:00 Test Item Value Reference Range Interpretation Comments POC-GLUCOSE METER 168 mg/dL 70-110 H TESTED AT [facility] 131[facility] (BEAKER) (test code [facility] [place] = 1538) [address] POCT-GLUCOSE [id number] 11:21:00 Test Item Value Reference Range Interpretation Comments POC-GLUCOSE METER 184 mg/dL 70-110 H TESTED AT [facility] 131[facility] ([facility]) (test code [facility] [place] = 1538) [address] BASIC METABOLIC [id number] 05:16:00 Test Item Value Reference Range Interpretation [...] 697) EGFR (BEAKER) (test 62 mL/min/1.73 ESTIMA BRUNA GFR IS code = 1092) sq m NOT ACCURATE CREATININE CLEARANCE IN PREDICTING GLOMERULAR FILTRATION RATE . ESTIMATED GFR I S NOT APPLICABLE FOR DIALYSIS PATIPAULA TS. [id number] 05:10:00 Test Item Value Reference Range Interpretation Comments MAGNESIUM (BEAKER) (test code = 2.0 mg/dL 1.5-3.0 627) CBC W/PLT COUNT & AUTO [id number] 04:57:00 Test Item Value Reference Range Interpretation [...] L 0.00-0.20 (test code = 417) POCT-GLUCOSE [id number] 17:02:00 Test Item Value Reference Range Interpretation Comments POC-GLUCOSE METER 177 mg/dL 70-110 H TESTED AT [address] ([facility]) (test code [facility] [place] = 1538) [address] POCT-GLUCOSE [id number] 11:34:00 Test Item Value Reference Range Interpretation Comments POC-GLUCOSE METER 207 mg/dL 70-110 H TESTED AT [facility] 131[facility] (BEAKER) (test code [facility] [place] = 1538) [address] CBC W/PLT COUNT & AUTO [id number] 10:45:00 Test Item Value Reference Range Interpretation [...] code = 2+ moderate 963) BASIC METABOLIC [id number] 09:40:00 Test Item Value Reference Range Interpretation [...] 697) EGFR (BEAKER) (test 55 mL/min/1.73 ESTIMA BRUNA GFR IS code = 1092) sq m NOT ACCURATE CREATININE CLEARANCE IN PREDICTING GLOMERULAR FILTRATION RATE . ESTIMATED GFR I S NOT APPLICABLE FOR DIALYSIS PATIEN TS. [id number] 09:39:00 Test Item Value Reference Range Interpretation Comments PHOSPHORUS (BEAKER) (test code = 3.3 mg/dL 2.5-4.5 604) [id number] 09:34:00 Test Item Value Reference Range Interpretation Comments MAGNESIUM (BEAKER) (test code = 2.1 mg/dL 1.5-3.0 627) POCT-GLUCOSE [id number] 06:01:00 Test Item Value Reference Range Interpretation Comments POC-GLUCOSE METER 171 mg/dL 70-110 H TESTED AT [facility] [address] (BEAKER) (test code [facility] [place] = 1538) [address] POCT-GLUCOSE [id number] 06:00:00 Test Item Value Reference Range Interpretation Comments POC-GLUCOSE METER 148 mg/dL 70-110 H TESTED AT [facility] [address] (BEAKER) (test code [facility] [address] [facility] [place] = 1538) [address] URINALYSIS W/ [id number] 05:01:00 Test Item Value Reference Range Interpretation [...] = 2795) RAD, CHEST, 1 VIEW, NON [id number] 21:04:00Reason for exam:->coughShould this be performed at the bedside?->YesFINAL REPORT AP view of the chest dated 12/10/2016 COMPARISON: November 25, 2016 CLINICAL INFORMATION: cough Comment: Heart is normal in size. Pulmonary vasculature is unremarkable. Lungs are clear. No pulmonary infiltrate or pleural effusion is present. Spinal stimulating device is seen overlying the mid thoracic spine. Impression: No active cardiopulmonary disease or interval change. Signed: Sam Sanchezeport Verified Date/Time: 12/10/2016 21:04:27 Reading Location: [address] Consult Reading Room OCCULT BLOOD, [id number] 20:24:00 Test Item Value Reference Range Interpretation Comments FECAL OCCULT BLOOD (BEAKER) (test Positive Negative A code = 618) CBC W/PLT COUNT & AUTO [id number] 20:10:00 Test Item Value Reference Range Interpretation [...] RBCS(BEAKER) 1+ few (test code = 478) [id number] 20:07:00 Test Item Value Reference Range Interpretation Comments PROTIME (BEAKER) (test code = 9.8 seconds 9.3-12.0 759) INR (BEAKER) (test code = 370) 0.9 <=5.9 PARTIAL THROMBOPLASTIN TIME 20.2 seconds 23.0-35.0 L (BEAKER) (test code = 760) RECOMMENDED COUMADIN/WARFARIN INR THERAPY RANGESSTANDARD DOSE: 2.0 - 3.0 Includes: PROPHYLAXIS for venous thrombosis, systemic embolization; TREATMENT for venous thrombosis and/or pulmonary embolus.HIGH RISK: Target INR is 2.5-3.5 for patients with mechanical heart valves.[id number] 20:07:00 Test Item Value Reference Range Interpretation Comments LIPASE (BEAKER) (test code = 749) 37 U/L 6-51 COMPREHENSIVE METABOLIC [id number] 20:06:00 Test Item Value Reference Range Interpretation [...] 347) EGFR (BEAKER) (test 44 mL/min/1.73 ESTIMA BRUNA GFR IS code = 1092) sq m NOT ACCURATE CREATININE CLEARANCE IN PREDICTING GLOMERULAR FILTRATION RATE . ESTIMATED GFR I S NOT APPLICABLE FOR DIALYSIS PATIEN TS. BLOOD [id number] 06:00:00 Test Item Value Reference Range Interpretation Comments CULTURE (BEAKER) (test No growth in 5 days code = 1095) BLOOD [id number] 06:00:00 Test Item Value Reference Range Interpretation Comments CULTURE (BEAKER) (test No growth in 5 days code = 1095) POCT-GLUCOSE [id number] 12:19:00 Test Item Value Reference Range Interpretation Comments POC-GLUCOSE METER 132 mg/dL 70-110 H TESTED AT [place] [address] ([facility]) (test code = [place] [facility] 1538) [address] POCT-GLUCOSE [id number] 11:19:00 Test Item Value Reference Range Interpretation Comments POC-GLUCOSE METER 222 mg/dL 70-110 H TESTED AT [place] [address] ([facility]) (test code = [place] [facility] 1538) [address] POCT-GLUCOSE [id number] 07:21:00 Test Item Value Reference Range Interpretation Comments POC-GLUCOSE METER 309 mg/dL 70-110 H Notified R Jose FELIX/TESTED ([facility]) (test code = AT [place] [address]) [facility] 7703 0 CBC W/PLT COUNT & AUTO [id number] 05:52:00 Test Item Value Reference Range Interpretation [...] PERCENT (BEAKER) (test code = 2801) POCT-GLUCOSE [id number] 21:36:00 Test Item Value Reference Range Interpretation Comments POC-GLUCOSE METER 284 mg/dL 70-110 H TESTED AT [facility] 6720 ([facility]) (test code = [place] [address]) [address] POCT-GLUCOSE [id number] 17:03:00 Test Item Value Reference Range Interpretation Comments POC-GLUCOSE METER 394 mg/dL 70-110 H Notified R Jose FELIX/TESTED ([facility]) (test code = AT [place] [id number] [facility]8) [facility] 7703 0 POCT-GLUCOSE [id number] 11:47:00 Test Item Value Reference Range Interpretation Comments POC-GLUCOSE METER 332 mg/dL 70-110 H Notified R Jose FELIX/TESTED ([facility]) (test code = AT [place] [id number] [place] [address]) [facility] 7703 0 POCT-GLUCOSE [id number] 07:19:00 Test Item Value Reference Range Interpretation Comments POC-GLUCOSE METER 350 mg/dL 70-110 H Notified R N MD/TESTED (BEAKER) (test code = AT [facility] [address] [address]) [facility] 7[address] 0 BASIC METABOLIC [id number] 05:27:00 Test Item Value Reference Range Interpretation [...] 697) EGFR (BEAKER) (test 66 mL/min/1.73 ESTIMA BRUNA GFR IS code = 1092) sq m NOT ACCURATE CREATININE CLEARANCE IN PREDICTING GLOMERULAR FILTRATION RATE . ESTIMATED GFR I S NOT APPLICABLE FOR DIALYSIS PATIEN TS. CBC W/PLT COUNT & AUTO [id number] 05:05:00 Test Item Value Reference Range Interpretation [...] PERCENT (BEAKER) (test code = 2801) POCT-GLUCOSE [id number] 22:29:00 Test Item Value Reference Range Interpretation Comments POC-GLUCOSE METER 256 mg/dL 70-110 H TESTED AT [place] [address] ([facility]) (test code = [place] [address]) [address] POCT-GLUCOSE [id number] 18:52:00 Test Item Value Reference Range Interpretation Comments POC-GLUCOSE METER 366 mg/dL 70-110 H Notified Belia Adams MD/TESTED ([facility]) (test code = AT [place] [address] [address] [facility]) [facility] 7703 0 POCT-GLUCOSE [id number] 12:02:00 Test Item Value Reference Range Interpretation Comments POC-GLUCOSE METER 399 mg/dL 70-110 H Notified Belia Adams MD/TESTED ([facility]) (test code = AT [place] [address] [facility] 1538) [place] [address] POCT-GLUCOSE [id number] 09:06:00 Test Item Value Reference Range Interpretation Comments POC-GLUCOSE METER 236 mg/dL 70-110 H TESTED AT [place] [address] (BEAKER) (test code = LIL[place] Belia [facility] 1538) [address] POCT-GLUCOSE [id number] 08:28:00 Test Item Value Reference Range Interpretation Comments POC-GLUCOSE METER 271 mg/dL 70-110 H TESTED AT [place] [address] (BEAKER) (test code = [facility] 1538) [address] POCT-GLUCOSE [id number] 06:31:00 Test Item Value Reference Range Interpretation Comments POC-GLUCOSE METER 236 mg/dL 70-110 H TESTED AT [place] [address] (BEAKER) (test code = [facility] 1538) [address] BASIC METABOLIC [id number] 05:14:00 Test Item Value Reference Range Interpretation [...] 697) EGFR (BEAKER) (test 60 mL/min/1.73 ESTIMA BRUNA GFR IS code = 1092) sq m NOT ACCURATE CREATININE CLEARANCE IN PREDICTING GLOMERULAR FILTRATION RATE . ESTIMATED GFR I S NOT APPLICABLE FOR DIALYSIS PATIEN TS. HEMOGLOBIN AND [id number] 05:02:00 Test Item Value Reference Range Interpretation Comments HEMOGLOBIN (BEAKER) (test code = 7.9 GM/DL 11.2-15.7 L 410) HEMATOCRIT (BEAKER) (test code = 25.5 % 34.1-44.9 L 411) POCT-GLUCOSE [id number] 22:05:00 Test Item Value Reference Range Interpretation Comments POC-GLUCOSE METER 235 mg/dL 70-110 H TESTED AT [place] [address] ([facility]) (test code = [facility] 1538) [address] POCT-GLUCOSE [id number] 21:56:00 Test Item Value Reference Range Interpretation Comments POC-GLUCOSE METER 274 mg/dL 70-110 H TESTED AT [place] [address] ([facility]) (test code = [facility] 1538) [address] HEMOGLOBIN AND [id number] 21:00:00 Test Item Value Reference Range Interpretation Comments HEMOGLOBIN (BEAKER) (test code = 7.9 GM/DL 11.2-15.7 L 410) HEMATOCRIT (BEAKER) (test code = 26.1 % 34.1-44.9 L 411) POCT-GLUCOSE [id number] 17:28:00 Test Item Value Reference Range Interpretation Comments POC-GLUCOSE METER 291 mg/dL 70-110 H TESTED AT [place] [address] ([facility]) (test code = [facility] 1538) [address] VANCOMYCIN LEVEL, [id number] 14:15:00 Test Item Value Reference Range Interpretation Comments VANCOMYCIN TROUGH (AKER) (test 18.1 ug/mL 10.0-20.0 code = 522) HEMOGLOBIN AND [id number] 13:53:00 Test Item Value Reference Range Interpretation Comments HEMOGLOBIN (BEAKER) (test code = 8.6 GM/DL 11.2-15.7 L 410) HEMATOCRIT (BEAKER) (test code = 28.0 % 34.1-44.9 L 411) POCT-GLUCOSE [id number] 06:09:00 Test Item Value Reference Range Interpretation Comments POC-GLUCOSE METER 205 mg/dL 70-110 H TESTED AT [place] [address] ([facility]) (test code = [facility] 1538) [address] BASIC METABOLIC [id number] 03:51:00 Test Item Value Reference Range Interpretation [...] 697) EGFR (BEAKER) (test 58 mL/min/1.73 ESTIMA BRUNA GFR IS code = 1092) sq m NOT ACCURATE CREATININE CLEARANCE IN PREDICTING GLOMERULAR FILTRATION RATE . ESTIMATED GFR I S NOT APPLICABLE FOR DIALYSIS PATIEN TS. CBC W/PLT COUNT & AUTO [id number] 03:28:00 Test Item Value Reference Range Interpretation [...] PERCENT (BEAKER) (test code = 2801) POCT-GLUCOSE [id number] 00:46:00 Test Item Value Reference Range Interpretation Comments POC-GLUCOSE METER 331 mg/dL 70-110 H TESTED AT [facility] 67 (BEAKER) (test code = [place] 1538) [address] HEMOGLOBIN AND [id number] 23:35:00 Test Item Value Reference Range Interpretation Comments HEMOGLOBIN (BEAKER) (test code = 8.0 GM/DL 11.2-15.7 L 410) HEMATOCRIT (BEAKER) (test code = 24.9 % 34.1-44.9 L 411) POCT-GLUCOSE [id number] 18:09:00 Test Item Value Reference Range Interpretation Comments POC-GLUCOSE METER 391 mg/dL 70-110 H Notified R Jose FELIX/TESTED (BEAKER) (test code = AT [facility] [address]) [place] [address] HEMOGLOBIN AND [id number] 16:39:00 Test Item Value Reference Range Interpretation Comments HEMOGLOBIN (BEAKER) (test code = 6.7 GM/DL 11.2-15.7 L 410) HEMATOCRIT (BEAKER) (test code = 22.4 % 34.1-44.9 L 411) POCT-GLUCOSE [id number] 12:39:00 Test Item Value Reference Range Interpretation Comments POC-GLUCOSE METER 238 mg/dL 70-110 H TESTED AT [facility] 6720 (BEAKER) (test code = [place] 1538) [address] HEMOGLOBIN AND [id number] 11:15:00 Test Item Value Reference Range Interpretation Comments HEMOGLOBIN (BEAKER) (test code = 7.5 GM/DL 11.2-15.7 L 410) HEMATOCRIT (BEAKER) (test code = 24.9 % 34.1-44.9 L 411) CBC W/PLT COUNT & AUTO [id number] 07:49:00 Test Item Value Reference Range Interpretation [...] PERCENT (BEAKER) (test code = 2801) POCT-GLUCOSE [id number] 06:45:00 Test Item Value Reference Range Interpretation Comments POC-GLUCOSE METER 205 mg/dL 70-110 H TESTED AT [facility] 6720 (BEAKER) (test code = [place] 1538) [address] LACTIC ACID, VENOUS, WHOLE [id number] 01:37:00 Test Item Value Reference Range Interpretation Comments LACTATE BLOOD VENOUS (2) (BEAKER) 1.9 mmol/L 0.5-2.2 (test code = 2872) Effective 07/31/2015: Units/Reference Range ChangeNew: 0.5-2.2 mmol/L Previous: 5- 20 mg/dLCOMPREHENSIVE METABOLIC [id number] 00:19:00 Test Item Value Reference Range Interpretation [...] 347) EGFR (BEAKER) (test 45 mL/min/1.73 ESTIMA BRUNA GFR IS code = 1092) sq m NOT ACCURATE CREATININE CLEARANCE IN PREDICTING GLOMERULAR FILTRATION RATE . ESTIMATED GFR I S NOT APPLICABLE FOR DIALYSIS PATIEN TS. [id number] 00:17:00 Test Item Value Reference Range Interpretation Comments PHOSPHORUS (BEAKER) (test code = 3.2 mg/dL 2.3-4.7 604) [id number] 00:17:00 Test Item Value Reference Range Interpretation Comments MAGNESIUM (BEAKER) (test code = 2.1 mg/dL 1.6-2.6 627) POCT-GLUCOSE [id number] 00:17:00 Test Item Value Reference Range Interpretation Comments POC-GLUCOSE METER 200 mg/dL 70-110 H TESTED AT [facility] 6720 (BEAKER) (test code = [place] 1538) [address] PROTHROMBIN [id number] 00:07:00 Test Item Value Reference Range Interpretation Comments PROTIME (BEAKER) (test code = 16.1 seconds 11.7-14.7 H 759) INR (BEAKER) (test code = 370) 1.3 <=5.9 RECOMMENDED COUMADIN/WARFARIN INR THERAPY RANGESSTANDARD DOSE: 2.0 - 3.0 Includes: PROPHYLAXIS for venous thrombosis, systemic embolization; TREATMENT for venous thrombosis and/or pulmonary embolus.HIGH RISK: Target INR is 2.5-3.5 for patients with mechanical heart valves.CBC W/PLT COUNT & AUTO [id number] 00:03:00 Test Item Value Reference Range Interpretation [...] PERCENT (BEAKER) (test code = 2801) POCT-GLUCOSE [id number] 11:41:00 Test Item Value Reference Range Interpretation Comments POC-GLUCOSE METER 259 mg/dL 70-110 H TESTED AT [facility] 6720 (BEAKER) (test code = [place] 1538) [address] [id number] 07:35:00 Test Item Value Reference Range Interpretation Comments PHOSPHORUS (BEAKER) (test code = 3.5 mg/dL 2.3-4.7 604) [id number] 07:35:00 Test Item Value Reference Range Interpretation Comments MAGNESIUM (BEAKER) (test code = 1.6 mg/dL 1.6-2.6 627) BASIC METABOLIC [id number] 07:35:00 Test Item Value Reference Range Interpretation [...] 697) EGFR (BEAKER) (test 49 mL/min/1.73 ESTIMA BRUNA GFR IS code = 1092) sq m NOT ACCURATE CREATININE CLEARANCE IN PREDICTING GLOMERULAR FILTRATION RATE . ESTIMATED GFR I S NOT APPLICABLE FOR DIALYSIS PATIEN TS. POCT-GLUCOSE [id number] 07:33:00 Test Item Value Reference Range Interpretation Comments POC-GLUCOSE METER 247 mg/dL 70-110 H TESTED AT [facility] 6720 (BEAKER) (test code = [place] [facility] 1538) [address] CBC W/PLT COUNT & AUTO [id number] 06:53:00 Test Item Value Reference Range Interpretation [...] PERCENT (BEAKER) (test code = 2801) POCT-GLUCOSE [id number] 21:09:00 Test Item Value Reference Range Interpretation Comments POC-GLUCOSE METER 398 mg/dL 70-110 H Patient on insulin (BEAKER) (test code = Drip/T ESTED AT [facility] 1538) [address] [place] [address] POCT-GLUCOSE [id number] 17:42:00 Test Item Value Reference Range Interpretation Comments POC-GLUCOSE METER 341 mg/dL 70-110 H TESTED AT [place] [address] ([facility]) (test code = [facility] 1538) [address] POCT-GLUCOSE [id number] 12:03:00 Test Item Value Reference Range Interpretation Comments POC-GLUCOSE METER 285 mg/dL 70-110 H TESTED AT [place] [address] ([facility]) (test code = [facility] 1538) [address] POCT-GLUCOSE [id number] 06:11:00 Test Item Value Reference Range Interpretation Comments POC-GLUCOSE METER 335 mg/dL 70-110 H TESTED AT [place] [address] ([facility]) (test code = [facility] 1538) [address] [id number] 05:12:00 Test Item Value Reference Range Interpretation Comments PHOSPHORUS (BEAKER) (test code = 4.0 mg/dL 2.3-4.7 604) [id number] 05:12:00 Test Item Value Reference Range Interpretation Comments MAGNESIUM (BEAKER) (test code = 1.5 mg/dL 1.6-2.6 L 627) BASIC METABOLIC [id number] 05:12:00 Test Item Value Reference Range Interpretation [...] 697) EGFR (BEAKER) (test 54 mL/min/1.73 ESTIMA BRUNA GFR IS code = 1092) sq m NOT ACCURATE CREATININE CLEARANCE IN PREDICTING GLOMERULAR FILTRATION RATE . ESTIMATED GFR I S NOT APPLICABLE FOR DIALYSIS PATIEN TS. CBC W/PLT COUNT & AUTO [id number] 04:40:00 Test Item Value Reference Range Interpretation [...] PERCENT (BEAKER) (test code = 2801) POCT-GLUCOSE [id number] 21:37:00 Test Item Value Reference Range Interpretation Comments POC-GLUCOSE METER 271 mg/dL 70-110 H TESTED AT [place] [address] ([facility]) (test code = [place] [facility] 1538) [address] POCT-GLUCOSE [id number] 17:40:00 Test Item Value Reference Range Interpretation Comments POC-GLUCOSE METER 273 mg/dL 70-110 H TESTED AT [place] [address] ([facility]) (test code = [place] [facility] 1538) [address] POCT-GLUCOSE [id number] 12:52:00 Test Item Value Reference Range Interpretation Comments POC-GLUCOSE METER 303 mg/dL 70-110 H TESTED AT [place] [address] ([facility]) (test code = [place] [facility] 1538) [address] POCT-GLUCOSE [id number] 08:44:00 Test Item Value Reference Range Interpretation Comments POC-GLUCOSE METER 306 mg/dL 70-110 H Notified R Jose FELIX/TESTED ([facility]) (test code = AT [place] [address]) [facility] [address] [id number] 04:53:00 Test Item Value Reference Range Interpretation Comments PHOSPHORUS (BEAKER) (test code = 4.0 mg/dL 2.3-4.7 604) [id number] 04:53:00 Test Item Value Reference Range Interpretation Comments MAGNESIUM (BEAKER) (test code = 1.7 mg/dL 1.6-2.6 627) BASIC METABOLIC [id number] 04:53:00 Test Item Value Reference Range Interpretation [...] 697) EGFR (BEAKER) (test 54 mL/min/1.73 ESTIMA BRUNA GFR IS code = 1092) sq m NOT ACCURATE CREATININE CLEARANCE IN PREDICTING GLOMERULAR FILTRATION RATE . ESTIMATED GFR I S NOT APPLICABLE FOR DIALYSIS PATIEN TS. CBC W/PLT COUNT & AUTO [id number] 04:38:00 Test Item Value Reference Range Interpretation [...] PERCENT (BEAKER) (test code = 2801) POCT-GLUCOSE [id number] 21:24:00 Test Item Value Reference Range Interpretation Comments POC-GLUCOSE METER 307 mg/dL 70-110 H Notified R Jose FELIX/TESTED ([facility]) (test code = AT [place] [address]) [place] [address] POCT-GLUCOSE [id number] 17:52:00 Test Item Value Reference Range Interpretation Comments POC-GLUCOSE METER 224 mg/dL 70-110 H TESTED AT [place] [address] ([facility]) (test code = [place] [address]) [address] POCT-GLUCOSE [id number] 12:46:00 Test Item Value Reference Range Interpretation Comments POC-GLUCOSE METER 250 mg/dL 70-110 H TESTED AT [place] [address] ([facility]) (test code = [place] [address]) [address] POCT-GLUCOSE [id number] 08:44:00 Test Item Value Reference Range Interpretation Comments POC-GLUCOSE METER 319 mg/dL 70-110 H Notified R Jose FELIX/TESTED ([facility]) (test code = AT [place] [address]) [place] [address] 0 [id number] 05:35:00 Test Item Value Reference Range Interpretation Comments PHOSPHORUS (BEAKER) (test code = 3.8 mg/dL 2.3-4.7 604) [id number] 05:35:00 Test Item Value Reference Range Interpretation Comments MAGNESIUM (BEAKER) (test code = 1.8 mg/dL 1.6-2.6 627) BASIC METABOLIC [id number] 05:35:00 Test Item Value Reference Range Interpretation [...] 697) EGFR (BEAKER) (test 51 mL/min/1.73 ESTIMA BRUNA GFR IS code = 1092) sq m NOT ACCURATE CREATININE CLEARANCE IN PREDICTING GLOMERULAR FILTRATION RATE . ESTIMATED GFR I S NOT APPLICABLE FOR DIALYSIS PATIEN TS. CBC W/PLT COUNT & AUTO [id number] 04:52:00 Test Item Value Reference Range Interpretation [...] PERCENT (BEAKER) (test code = 2801) POCT-GLUCOSE [id number] 21:33:00 Test Item Value Reference Range Interpretation Comments POC-GLUCOSE METER 195 mg/dL 70-110 H TESTED AT [facility] 6720 ([facility]) (test code = [place] 1538) [address] POCT-GLUCOSE [id number] 20:09:00 Test Item Value Reference Range Interpretation Comments POC-GLUCOSE METER 268 mg/dL 70-110 H TESTED AT [facility] 6720 (BEAKER) (test code = [place] 1538) [address] POCT-GLUCOSE [id number] 17:13:00 Test Item Value Reference Range Interpretation Comments POC-GLUCOSE METER 400 mg/dL 70-110 HH TESTED AT [facility] 6720 (BEAKER) (test code = [place] 1538) [address] POCT-GLUCOSE [id number] 10:55:00 Test Item Value Reference Range Interpretation Comments POC-GLUCOSE METER 216 mg/dL 70-110 H TESTED AT [facility] 6720 (BEAKER) (test code = [place] 1538) [address] POCT-GLUCOSE [id number] 07:07:00 Test Item Value Reference Range Interpretation Comments POC-GLUCOSE METER 240 mg/dL 70-110 H TESTED AT [facility] 6720 (BEAKER) (test code = [place] 1538) [address] POCT-GLUCOSE [id number] 06:13:00 Test Item Value Reference Range Interpretation Comments POC-GLUCOSE METER 249 mg/dL 70-110 H TESTED AT [place] [id number] (BEAKER) (test code = [place] [facility] 1538) [address] [id number] 05:36:00 Test Item Value Reference Range Interpretation Comments PHOSPHORUS (BEAKER) (test code = 3.5 mg/dL 2.3-4.7 604) [id number] 05:36:00 Test Item Value Reference Range Interpretation Comments MAGNESIUM (BEAKER) (test code = 1.7 mg/dL 1.6-2.6 627) BASIC METABOLIC [id number] 05:36:00 Test Item Value Reference Range Interpretation [...] 697) EGFR (BEAKER) (test 56 mL/min/1.73 ESTIMA BRUNA GFR IS code = 1092) sq m NOT ACCURATE CREATININE CLEARANCE IN PREDICTING GLOMERULAR FILTRATION RATE . ESTIMATED GFR I S NOT APPLICABLE FOR DIALYSIS PATIEN TS. CBC W/PLT COUNT & AUTO [id number] 05:19:00 Test Item Value Reference Range Interpretation [...] (BEAKER) (test code = 2801) COMPREHENSIVE METABOLIC [id number] 23:04:00 Test Item Value Reference Range Interpretation [...] 347) EGFR (BEAKER) (test 61 mL/min/1.73 ESTIMA BRUNA GFR IS code = 1092) sq m NOT ACCURATE CREATININE CLEARANCE IN PREDICTING GLOMERULAR FILTRATION RATE . ESTIMATED GFR I S NOT APPLICABLE FOR DIALYSIS PATIEN TS. PROTHROMBIN [id number] 22:57:00 Test Item Value Reference Range Interpretation Comments PROTIME (BEAKER) (test code = 14.1 seconds 11.7-14.7 759) INR (BEAKER) (test code = 370) 1.1 <=5.9 RECOMMENDED COUMADIN/WARFARIN INR THERAPY RANGESSTANDARD DOSE: 2.0 - 3.0 Includes: PROPHYLAXIS for venous thrombosis, systemic embolization; TREATMENT for venous thrombosis and/or pulmonary embolus.HIGH RISK: Target INR is 2.5-3.5 for patients with mechanical heart valves.CBC W/PLT COUNT & AUTO [id number] 22:51:00 Test Item Value Reference Range Interpretation [...] 0-1 PERCENT (BEAKER) (test code = 2801) POC, COVID 19 Antigen + Flu by [facility], [facility]"
[2022-01-11] MEDS ORDERED: NA CHLORIDE 0.9% 1,000 ML ONE ×2 (15:22→20:41)
[2022-01-11] MEDS ORDERED: PANTOPRAZOLE 40 MG INJ ONE ×2 (15:22→17:42)
--- NOTE | 2022-01-11 15:28 | RAD REPORT ---
EXAM DESCRIPTION: RAD - Chest Single View - 01/11/2022 3:17 pm CLINICAL HISTORY: COUGH COMPARISON: Chest Single View dated 04/09/2021; Chest Single View dated 06/17/2017; Chest Single View dated 06/01/2017; Chest Single View dated 11/24/2016 FINDINGS: Lines: None. Lungs: No evidence of edema or pneumonia. Pleural: No significant pleural effusions or pneumothorax. Cardiac: The heart size is within normal limits. Mediastinum: Within normal limits. Bones: No acute fractures. Spinal stimulator. Other: None IMPRESSION: No acute cardiopulmonary disease.
[2022-01-11 15:31] LABS: Absolute Lymphocytes (CBC) 1.1 K/uL (0.7-4.9); Hematocrit 27.3 % (36.0-45.0); Lymphocytes % 9.4 % (15.3-44.8); MCV 84.3 fL (80-100); MPV 8.7 fL (7.6-11.3); RBC Red Blood Cell Count 3.24 M/uL (3.86-4.86)
[2022-01-11 15:44] LABS: Protime INR 1.03
[2022-01-11 15:50] LABS: SARS-CoV-2 Antigen Rapid Res Negative (Negative)
[2022-01-11 16:03] LABS: ALT/SGPT 17 U/L (12-78); AST/SGOT 11 U/L (15-37); Albumin 2.8 g/dL (3.4-5.0); Alkaline Phosphatase 77 U/L (45-117); BUN Blood Urea Nitrogen 25 mg/dL (7-18); Bicarbonate 29 mmol/L (21-32); Bilirubin Total 0.2 mg/dL (0.2-1.0); Glomerular Filtration Rate 59 ml/min (=/>90); Glucose Level 172 mg/dL (74-106); Magnesium 2.4 mg/dL (1.8-2.4); NT PRO-BNP 932 pg/mL (<450); Potassium 3.8 mmol/L (3.5-5.1); Protein, Total 6.3 g/dL (6.4-8.2); Sodium Level 137 mmol/L (136-145); Troponin High Sensitivity 10.5 pg/mL (<58.9)
[2022-01-11 16:04] LABS: Bilirubin Direct < 0.1 mg/dL (0-0.2)
--- NOTE | 2022-01-11 17:35 | ER ---
Nurse's Notes [facility] Name: Sia Salazar Age: 76 yrs Sex: Female : 1945 Arrival Date: 01/11/2022 Time: 14:01 Bed 20 Private MD: Diagnosis: Weakness;Anemia, unspecified;GI Bleed/ Gastrointestinal hemorrhage, unspecified-UPPER Presentation: 01/11 14:03 Chief complaint: Seen in ED last week for GI bleed, received blood transfusion, reports hb black tarry stools continue, worse over this weekend. Coronavirus screen: At this time, the client does not indicate any symptoms associated with coronavirus-19. Ebola Screen: No symptoms or risks identified at this time. Initial Sepsis Screen: Does the patient meet any 2 criteria? No. Patient's initial sepsis screen is negative. Does the patient have a suspected source of infection? No. Patient's initial sepsis screen is negative. Risk Assessment: Do you want to hurt yourself or someone else? Patient reports no desire to harm self or others. Onset of symptoms was January 11, 2022. 14:03 Method Of Arrival: Wheelchair hb 14:03 Acuity: GREGG 3 hb Triage Assessment: 14:59 General: Appears in no apparent distress. obese, Behavior is cooperative, appropriate bp for age, anxious. Pain: Denies pain. EENT: No deficits noted. Neuro: No deficits noted. Cardiovascular: Rhythm is sinus tachycardia. Respiratory: No deficits noted. GI: Reports bloody stool. : No signs and/or symptoms were reported regarding the genitourinary system. Derm: No deficits noted. Musculoskeletal: No deficits noted. Historical: - Allergies: 14:04 Actos; hb 14:04 Bactrim; hb 14:04 Clindamycin; hb 14:04 Codeine; hb 14:04 Crestor; hb 14:04 Darvocet-N 100; hb 14:04 Erythromycin; hb 14:04 Glimepiride; hb 14:04 Glipizide; hb 14:04 Iodinated Contrast Media - IV Dye; hb 14:04 Januvia; hb 14:04 Lipitor; hb 14:04 metformin; hb 14:04 Morphine; hb 14:04 PENICILLINS; hb 14:04 Sulfa (Sulfonamide Antibiotics); hb 14:04 Wellbutrin; hb - Home Meds: 14:10 Amitriptyline Oral [Active]; aspirin 81 mg Oral TbEC 1 tab once daily [Active]; bp Buspirone Oral [Active]; citalopram oral [Active]; clopidogrel Oral [Active]; Simvastatin Oral [Active]; Cyclobenzaprine Oral [Active]; duloxetine oral [Active]; - PMHx: 14:10 angiodysplasia; bowel AVMs; bronchospastic airway disease; celiac artery stenosis; bp Cerebrovascular disease; chronic mesenteric ischemia; chronic pulmonary embolism; COPD; Depression; Diabetes - IDDM; GERD; ibs; ischemic bowel disease; peripheral artery disease; SBO; - PSHx: 14:10 Coronary artery bypass graft; Tonsillectomy; Cholecystectomy; bp - Immunization history:: Adult Immunizations up to date. - Social history:: Smoking status: unknown. - Family history:: not pertinent. Screenin:59 Abuse screen: Denies threats or abuse. Denies injuries from another. Nutritional bp screening: No deficits noted. Tuberculosis screening: No symptoms or risk factors identified. Fall Risk None identified. Assessment: 14:59 General: SEE TRIAGE NOTE. bp 17:06 Reassessment: No changes from previously documented assessment. Patient and/or family bp updated on plan of care and expected duration. Pain level reassessed. 18:34 Reassessment: REPORT TO JILL DUMAS FOR [facility]. bp Vital Signs: 14:03 BP 140 / 49; Pulse 103; Resp 16; Temp 98.2; Pulse Ox 100% on R/A; Weight 58.51 kg; hb Height 5 ft. 2 in. (157.48 cm); Pain 6/10; 17:05 BP 135 / 52; Pulse 100; Resp 16; Pulse Ox 95% ; bp 18:00 BP 126 / 41; Pulse 98; Resp 16; Pulse Ox 97% ; bp 19:10 BP 134 / 52; Pulse 103; Resp 16; Pulse Ox 94% ; ll3 21:04 BP 132 / 50; Pulse 102; Resp 18; Pulse Ox 96% on R/A; ll3 14:03 Body Mass Index 23.59 (58.51 kg, 157.48 cm) hb ED Course: 14:01 Patient arrived in ED. ja2 14:04 Triage completed. hb 14:05 Arm band placed on. hb 14:38 Roderick Luna MD is Attending Physician. nelly 14:58 Jean-Claude Red, PITER is Primary Nurse. bp 14:59 Patient has correct armband on for positive identification. Bed in low position. Call bp light in reach. Side rails up X2. Adult w/ patient. 15:15 Inserted saline lock: 22 gauge in right forearm, using aseptic technique. Blood bp collected. 15:19 XRAY Chest (1 view) In Process Unspecified. EDVA 17:[address] Luna with Catherine Reece Rn from the [facility]. 17:56 administrative approval given by Catherine Reece/ patient has been accepted to [facility] eb roon 1623/ Dr. Maryuri Garay has accepted the patient in transport/ report to be called to [phone]. 18:35 No provider procedures requiring assistance completed. Patient transferred, IV remains bp in place. Administered Medications: 15:20 Drug: ProTONIX (pantoprazole) 40 mg Route: IVP; Site: right forearm; bp 19:02 Follow up: Response: No adverse reaction bp 15:20 Drug: NS 0.9% 1000 ml Route: IV; Rate: 125 ml/hr; Site: right forearm; bp 19:02 Follow up: IV Status: Infusion continued upon transfer bp 17:30 Drug: ProTONIX (pantoprazole) 40 mg Route: IVP; Site: right forearm; bp 19:02 Follow up: Response: No adverse reaction bp 17:30 Drug: ProTONIX (pantoprazole) 8 mg/hr Route: IV; Rate: 25 ml/hr; Site: right forearm; bp 19:03 Follow up: IV Status: Infusion continued upon transfer bp 19:02 Drug: Nicoderm CQ Patch 21 mg/24 hr 1 patches Route: Transdermal; Site: affected area; bp Medication: 14:59 VIS not applicable for this client. bp Outcome: 17:35 ER care complete, transfer ordered by . nelly 18:34 Transferred by ground EMS to [facility], Transfer form completed. bp 18:34 Condition: stable 18:34 Instructed on the need for transfer. 21:04 Patient left the ED. ll3 Signatures: Dispatcher [employer] EDVA Rodercik Luna MD MD cha Baxter, Heather, RN RN hb Jean-Claude Red, RN RN bp Elsa Guerrero Jessica ja2 Loubet, Lynsea RN RN ll3
--- NOTE | 2022-01-11 17:35 | EDPHYS ---
Physician Documentation [facility] Name: Sia Salazar Age: 76 yrs Sex: Female : 1945 Arrival Date: 01/11/2022 Time: 14:01 Bed 20 Private MD: ARVIN Physician Roderick Luna HPI: 01/11 17:25 This 76 yrs old Female presents to ER via Wheelchair with complaints of nelly INTERNAL BLEEDING. 17:25 This 76 yrs old Female presents to ER via Wheelchair with complaints of nelly INTERNAL BLEEDING. 17:25 The patient presents with abdominal pain in the epigastric area, in the upper abdomen. nelly Onset: The symptoms/episode began/occurred 3 day(s) ago. The patient presents to the emergency department BLACK STOOLS. Onset: The symptoms/episode began/occurred 6 day(s) ago. Abdominal pain: described as crampy. Modifying factors: The symptoms are alleviated by nothing, the symptoms are aggravated by nothing. WEAK, INCREASING BLACK TARRY STOOLS. Associated signs and symptoms: Pertinent positives: dizziness when standing. Associated signs and symptoms: none. Historical: - Allergies: 14:04 Actos; hb 14:04 Bactrim; hb 14:04 Clindamycin; hb 14:04 Codeine; hb 14:04 Crestor; hb 14:04 Darvocet-N 100; hb 14:04 Erythromycin; hb 14:04 Glimepiride; hb 14:04 Glipizide; hb 14:04 Iodinated Contrast Media - IV Dye; hb 14:04 Januvia; hb 14:04 Lipitor; hb 14:04 metformin; hb 14:04 Morphine; hb 14:04 PENICILLINS; hb 14:04 Sulfa (Sulfonamide Antibiotics); hb 14:04 Wellbutrin; hb - Home Meds: 14:10 Amitriptyline Oral [Active]; aspirin 81 mg Oral TbEC 1 tab once daily [Active]; bp Buspirone Oral [Active]; citalopram oral [Active]; clopidogrel Oral [Active]; Simvastatin Oral [Active]; Cyclobenzaprine Oral [Active]; duloxetine oral [Active]; - PMHx: 14:10 angiodysplasia; bowel AVMs; bronchospastic airway disease; celiac artery stenosis; bp Cerebrovascular disease; chronic mesenteric ischemia; chronic pulmonary embolism; COPD; Depression; Diabetes - IDDM; GERD; ibs; ischemic bowel disease; peripheral artery disease; SBO; - PSHx: 14:10 Coronary artery bypass graft; Tonsillectomy; Cholecystectomy; bp - Immunization history:: Adult Immunizations up to date. - Social history:: Smoking status: unknown. - Family history:: not pertinent. ROS: 17:25 Constitutional: Negative for fever, chills, and weight loss, Eyes: Negative for injury, nelly pain, redness, and discharge, ENT: Negative for injury, pain, and discharge, Neck: Negative for injury, pain, and swelling, Cardiovascular: Negative for chest pain, palpitations, and edema, Respiratory: Negative for shortness of breath, cough, wheezing, and pleuritic chest pain, Back: Negative for injury and pain, : Negative for injury, bleeding, discharge, and swelling, MS/Extremity: Negative for injury and deformity, Neuro: Negative for headache, weakness, numbness, tingling, and seizure, Psych: Negative for depression, anxiety, suicide ideation, homicidal ideation, and hallucinations, Allergy/Immunology: Negative for hives, rash, and allergies, Endocrine: Negative for neck swelling, polydipsia, polyuria, polyphagia, and marked weight changes, Hematologic/Lymphatic: Negative for swollen nodes, abnormal bleeding, and unusual bruising. 17:25 Abdomen/GI: Positive for black/tarry stool. 17:25 Neuro: Positive for dizziness, weakness. Exam: 17:25 Constitutional: This is a well developed, well nourished patient who is awake, alert, nelly and in no acute distress. Head/Face: Normocephalic, atraumatic. Eyes: Pupils equal round and reactive to light, extra-ocular motions intact. Lids and lashes normal. Conjunctiva and sclera are non-icteric and not injected. Cornea within normal limits. Periorbital areas with no swelling, redness, or edema. ENT: Nares patent. No nasal discharge, no septal abnormalities noted. Tympanic membranes are normal and external auditory canals are clear. Oropharynx with no redness, swelling, or masses, exudates, or evidence of obstruction, uvula midline. Mucous membranes moist. Neck: Trachea midline, no thyromegaly or masses palpated, and no cervical lymphadenopathy. Supple, full range of motion without nuchal rigidity, or vertebral point tenderness. No Meningismus. Chest/axilla: Normal chest wall appearance and motion. Nontender with no deformity. No lesions are appreciated. Cardiovascular: Regular rate and rhythm with a normal S1 and S2. No gallops, murmurs, or rubs. Normal PMI, no JVD. No pulse deficits. Respiratory: Lungs have equal breath sounds bilaterally, clear to auscultation and percussion. No rales, rhonchi or wheezes noted. No increased work of breathing, no retractions or nasal flaring. Back: No spinal tenderness. No costovertebral tenderness. Full range of motion. Female : Normal external genitalia. MS/ Extremity: Pulses equal, no cyanosis. Neurovascular intact. Full, normal range of motion. Psych: Awake, alert, with orientation to person, place and time. Behavior, mood, and affect are within normal limits. 17:25 ECG was reviewed by the Attending Physician. 17:25 Abdomen/GI: Inspection: abdomen appears normal, Bowel sounds: normal, Palpation: abdomen is soft and non-tender, Rectal exam: Stool: guaiac positive, black, hemorrhoid(s), are not appreciated, mass, is not appreciated, swelling, is not appreciated, tenderness, is not appreciated, Liver: no appreciated palpable abnormalities, Hernia: not appreciated. Vital Signs: 14:03 BP 140 / 49; Pulse 103; Resp 16; Temp 98.2; Pulse Ox 100% on R/A; Weight 58.51 kg; hb Height 5 ft. 2 in. (157.48 cm); Pain 6/10; 17:05 BP 135 / 52; Pulse 100; Resp 16; Pulse Ox 95% ; bp 18:00 BP 126 / 41; Pulse 98; Resp 16; Pulse Ox 97% ; bp 19:10 BP 134 / 52; Pulse 103; Resp 16; Pulse Ox 94% ; ll3 21:04 BP 132 / 50; Pulse 102; Resp 18; Pulse Ox 96% on R/A; ll3 14:03 Body Mass Index 23.59 (58.51 kg, 157.48 cm) hb MDM: 14:38 Patient medically screened. nelly 17:37 Differential diagnosis: diverticulitis, gastritis, non-specific abd pain, pancreatitis, nelly Peptic Ulcer Disease, Pyelonephritis, urinary tract infection. Data reviewed: vital signs, nurses notes, lab test result(s), EKG, radiologic studies, CT scan, plain films. Data interpreted: phototypesetting equipment monitor: rate is 100 beats/min, rhythm is normal sinus rhythm, regular, Pulse oximetry: on room air is 98 %. Test interpretation: by ED physician or midlevel provider: ECG, plain radiologic studies. Counseling: I had a detailed discussion with the patient and/or guardian regarding: the historical points, exam findings, and any diagnostic results supporting the discharge/admit diagnosis, lab results, radiology results, the need to transfer to another facility, for higher level of care, [facility] does not immediately have the required specialist. 01/11 14:41 Order name: Basic Metabolic Panel; Complete Time: 17:21 [facility] 01/11 14:41 Order name: CBC with Diff; Complete Time: 17:21 [facility] 01/11 14:41 Order name: LFT's; Complete Time: 17:21 nelly 01/11 14:41 Order name: Magnesium; Complete Time: 17:21 01/11 14:41 Order name: NT PRO-BNP; Complete Time: 17:21 [facility] 01/11 14:41 Order name: PT-INR; Complete Time: 17:21 [facility] 01/11 14:41 Order name: Troponin HS; Complete Time: 17:21 [facility] 01/11 14:41 Order name: XRAY Chest (1 view); Complete Time: 17:21 [facility] 01/11 14:41 Order name: Type And Screen [facility] 01/11 14:41 Order name: SARS RAPID; Complete Time: 17:21 01/11 16:52 Order name: Antibody Identification [facility] 01/11 14:41 Order name: EKG; Complete Time: 14:42 01/11 14:41 Order name: Cardiac monitoring; Complete Time: 15:40 [facility] 01/11 14:41 Order name: EKG - Nurse/Tech; Complete Time: 15:40 nelly 01/11 14:41 Order name: IV Saline Lock; Complete Time: 15:18 [facility] 01/11 14:41 Order name: Labs collected and sent; Complete Time: 15:18 01/11 14:41 Order name: O2 Per Protocol; Complete Time: 15:18 01/11 14:41 Order name: O2 Sat Monitoring; Complete Time: 15:18 01/11 14:41 Order name: IV Saline Lock - Large Bore; Complete Time: 15:18 nelly EC:25 Rate is 94 beats/min. Rhythm is regular. QRS [place] is Normal. MS interval is normal. QRS nelly interval is normal. QT interval is normal. No Q waves. T waves are Normal. No ST changes noted. Clinical impression: NSR w/ Non-specific ST/T Changes and No evidence of ischemia. Interpreted by me. Reviewed by me. Administered Medications: 15:20 Drug: ProTONIX (pantoprazole) 40 mg Route: IVP; Site: right forearm; bp 19:02 Follow up: Response: No adverse reaction bp 15:20 Drug: NS 0.9% 1000 ml Route: IV; Rate: 125 ml/hr; Site: right forearm; bp 19:02 Follow up: IV Status: Infusion continued upon transfer bp 17:30 Drug: ProTONIX (pantoprazole) 40 mg Route: IVP; Site: right forearm; bp 19:02 Follow up: Response: No adverse reaction bp 17:30 Drug: ProTONIX (pantoprazole) 8 mg/hr Route: IV; Rate: 25 ml/hr; Site: right forearm; bp 19:03 Follow up: IV Status: Infusion continued upon transfer bp 19:02 Drug: Nicoderm CQ Patch 21 mg/24 hr 1 patches Route: Transdermal; Site: affected area; bp Disposition Summary: 01/11/22 17:35 Transfer Ordered Transfer Location: [facility] nelly Reason: Higher level of care nelly Condition: Fair nelly Problem: new nelly Symptoms: are unchanged nelly Accepting Physician: TO TELE(01/11/22 21:04) ll3 Diagnosis - Weakness nelly - Anemia, unspecified nelly - GI Bleed/ Gastrointestinal hemorrhage, unspecified - UPPER nelly Forms: - Medication Reconciliation Form nelly - SBAR form nelly Signatures: Dispatcher [employer] Roderick Ferreira MD MD cha Baxter, Heather, RN RN hb Peltier, Brian, RN RN Kwesi Joy RN RN ll3 Corrections: (The following items were deleted from the chart) 21:04 17:35 TO TELE nelly ll3
[2022-01-11] MEDS ORDERED: NA CHLORIDE 0.9% 250 ML ONE (17:42)
[2022-01-11] MEDS ORDERED: LORazepam 2 MG/ML VIAL ONE (18:49)
[2022-01-11] MEDS ORDERED: NICOTINE 21 MG/PAT TD ONE (18:57)
[2022-01-11 21:45] VITALS: TEMP 98.2
[2022-01-11 21:50] VITALS: BP 132/50; O2SAT 96
--- NOTE | 2022-01-12 16:10 | EKG ---
Test Date: 2022-01-11 Test Time: 15:34:01 Open Cut Examiner: KV MEASUREMENT RESULTS: Intervals: Rate: 94 [place]: 182 QRSD: 74 QT: 352 QTc: 440 [place]: P: -12 [place]: 182 QRS: -18 T: 58 INTERPRETIVE STATEMENTS: Sinus rhythm with marked sinus arrhythmia Anteroseptal infarct, age undetermined Abnormal ECG Compared to ECG 06/01/2017 09:07:36 No significant changes Electronically Signed On 01-12-22 16:07:56 CDT by Beltran Patel
== END 2022-01-11 21:04 | disposition short-term general hospital (02) ==
LOC: ER 13:58
DX: R53.1 Weakness (principal); D64.9 Anemia, unspecified; K92.2 Gastrointestinal hemorrhage, unspecified; Z20.822 Contact with and (suspected) exposure to COVID-19; Z95.1 Presence of aortocoronary bypass graft; E11.9 Type 2 diabetes mellitus without complications; J44.9 Chronic obstructive pulmonary disease, unspecified; Z88.0 Allergy status to penicillin; Z88.1 Allergy status to other antibiotic agents; Z88.2 Allergy status to sulfonamides; Z88.5 Allergy status to narcotic agent; Z88.8 Allergy status to other drugs, medicaments and biological substances; Z88.3 Allergy status to other anti-infective agents; Z91.041 Radiographic dye allergy status
CPT/HCPCS: 96365; 96361; 93005; 85025; 80048; 36415; 86900 ×2; 83735; 86880; 86850; 85610; 86870 ×2; 86901; 80076; 84484; 83880; 71045; 99285; 96366; 87811; 86860; C9113 ×2; J7050; J7030 ×2

== ENCOUNTER 2022-01-24 19:41 | Emergency (ER) | payer MEDICARE ==
--- OUTSIDE RECORDS SUMMARY | 2022-01-24 19:59 | XMS REPORT | Continuity of Care Document ---
:[address] [facility] t Address [address] [place] [address] Care Team Providers Name Role Phone SHARPLESS Primary Care Physician Unavailable PEARL BROOKS Attending Clinician Unavailable Isra Rondon Attending Clinician Unavailable LIDIA NAZARIO Attending Clinician Unavailable Pearl Brooks MD Attending Clinician Unavailable Iyanoye_S Attending Clinician Unavailable MORALES FITCH Attending Clinician Unavailable Morales Nicole Attending Clinician Lidia Nazario MD Attending Clinician Pob, [facility] Main Attending Clinician Unavailable Chance Paul MD Attending Clinician CHANCE PAUL Attending Clinician Unavailable Doctor Unassigned, [place] Attending Clinician Unavailable LIBRADO ABRAMS Attending Clinician Unavailable Librado Abrams MD Attending Clinician Chela Knowles MD Attending Clinician Lab, Ang - Db Attending Clinician Unavailable CHELA KNOWLES Attending Clinician Unavailable ERNESTO CHURCHILL Attending Clinician Unavailable Sam Redding MD Attending Clinician JEN TALBERT Attending Clinician Unavailable Provider, [facility] Attending Clinician Unavailable Jen Talbert MD Attending Clinician Jose Nguyen MD Attending Clinician TANA VELEZ Attending Clinician Unavailable Tana Velez MD Attending Clinician KEISHA APARICIO Attending Clinician Unavailable Keisha Aparicio MD Attending Clinician INDIGO JIMÉNEZ Attending Clinician Unavailable [facility] Pob I Attending Clinician Unavailable Simi Lopez Attending Clinician [facility] Attending Clinician Unavailable JOSE NGUYEN Attending Clinician Unavailable Morena Jules Attending Clinician MORENA GRAY Attending Clinician Unavailable SIMI BEAVER Attending Clinician Unavailable RACHELE, SENDIL K.HTrina Attending Clinician Unavailable Rachele FELIX [facility] Attending Clinician SAM REDDING Attending Clinician Unavailable , [facility] Room 1 - Attending Clinician Unavailable JOSE DUNLAP Attending Clinician Unavailable Jose Dunlap DO Attending Clinician SHENA ORR Attending Clinician Unavailable ANGELES UGALDE Attending Clinician Unavailable ADRIANA MAGALLANES Attending Clinician Unavailable WILL TINAJERO Attending Clinician Unavailable Darwin Adrian Attending Clinician [phone] PEARL BROOKS Admitting Clinician Unavailable Iyanoye_S Admitting Clinician Unavailable MORALES FITCH Admitting Clinician Unavailable JOSE DUNLAP Admitting Clinician Unavailable SIMI BEAVER Admitting Clinician Unavailable SHENA ORR Admitting Clinician Unavailable EDUARDO LEGER Admitting Clinician Unavailable ADRIANA MAGALLANES Admitting Clinician Unavailable WILL TINAJERO Admitting Clinician Unavailable Payers Payer Name Policy Type Policy Number Effective Date Expiration Date S [facility] 2021 MGD MCR 00:00:00 DEVOTED HEALTH [id number] 2021 MEDICARE 00:00:00 ADVANTAGE PLAN DEVOTED HEALTH [id number] 2021 (MEDICARE 00:00:00 REPLACEMENT HMO) WELLCARE VALUE [id number] 2020 00:00:00 Wellcare C1 [id number] [facility] MEDICARE PART A [id number] 2011 2020 \\T\\ B 00:00:00 00:00:00 Problems Condition Condition Condition Status Onset Resolution Last Treating Co mments Source Name Details Category Date Date Treatment Clinician Date Calcium Calcium Disease Active Univers oxalate oxalate 9-08 ity of crystals crystals 00:00: [place] in urine in urine 00 Medica l Branch Abdominal Abdominal Disease Active Uni vers wall wall 3-14 ity of hernia hernia 00:00: [place] 00 Medical Branch Anxiety Anxiety Disease Active Univers [...] cardiomyop cardiomyop [place] Venous Venous Disease Active Univers insufficie insufficie 7-21 it y of ncy ncy 00:00: [place] 00 Medical Branch Chronic Chronic Disease Active 2018-03 Univers 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 Type II Coronary Coronary Disease Active [facility] t artery artery 9-17 [facility] disease disease 00:00: Medical involving involving 00 Cent er [place] coronary coronary artery artery Essential Essential Disease Active [facility] hypertensi hypertensi 9-17 Dora kes on on 00:00: Medical 00 Center Microcytic Microcytic Disease Active [facility] anemia anemia 9-17 [facility] 00:[facility]: Medical 00 Center Gastrointe Gastrointe Disease Active [facility] stinal stinal 9-14 [facility] hemorrhage hemorrhage 00:00: Sd dical , , 00 Center unspecifie unspecifie d d gastrointe gastrointe stinal stinal hemorrhage hemorrhage type type Severe Severe Disease Active [facility] sepsis sepsis 8-30 [facility] 00:[facility]: Medical 00 Center Anemia due Anemia due Disease Active [facility] to acute to acute 829 [facility] blood loss blood loss 00:00: Me dical 00 Center Upper GI Upper GI Disease Active [facility] S t bleed bleed 8 [facility] 00:00: Medical 00 Center Angiodyspl Angiodyspl Disease Active [facility] darío of darío of 8- [facility] intestine intestine 00:00: [facility] jorge l with with 00 Center hemorrhage hemorrhage Acute Acute Disease Active [facility] blood loss blood loss 8- Dora kes anemia anemia 00:00: Medical 00 Center Upper GI Upper GI Disease Active Unive rs bleed bleed 10-23 ity of 00:00: [address] Branch GI bleed GI bleed Disease Active [facility] t 7 [facility] 00:[facility]: Medical 00 Center DSU- DSU- Diagnosis Active 2017-02-10 Mem oria HEMATOCHEZ HEMATOCHEZ 10-01 16:16:00 l [place] R19.5, IA R19.5, 00:00: Herm kun FATIGUE FATIGUE 00 R53.83, R53.83, Active 10/01/2016 [facility] Obesity Obesity Disease Active Univers (BMI (BMI 6-07 ity of 30-39.9) 30-39.9) 00:00: [address] Branch SBO (small SBO (small Disease Active U nivers bowel bowel 6-06 ity of obstructio obstructio 00:00: [place]) n) Medical Branch F/U F/U Diagnosis Active 2016-10-01 Mem oria Active 07-02 10:31:00 l 07/02/2016 00:00: Gilbert BOSTON [address] CONSULT CONSULT Diagnosis Active 2016-07-02 Memoria Active 05-06 11:37:00 l 05/06/2016 00:00: Gilbert adams [address] Depression Depression Disease Active U nivers ity of [facility] [id number] Right-side Problem Co mmon d back Spirit pain, - CHI unspecifie d back [facility], Medical unspecifie Center d chronicity Anxiety Anxiety Problem Common [facility] Osteoporos Osteoporos Problem C ommon is is Spirit [facility] Depression Depression Problem C ommon Spirit [facility] COPD - COPD Problem Common Chronic (chronic Spirit obstructiv obstructiv - [facility] e e pulmonary pulmonary [place] s disease disease) [facility] [id number] Ventral Problem Commo n hernia Spirit without - CHI obstructio [facility] Stroke Stroke Problem Common [facility] [id number] Chronic Problem Commo n blood loss Spirit anemia [facility] White Other Problem Common blood cell specified Spi rit disorder disease of - CH I white [facility] Seasonal Seasonal Problem Commo n allergic allergic [facility] rhinitis reaction - [facility] Disorder Circulatio Problem Com mon of n problem Spirit cardiovasc - [facility] ular [facility] [id number] Abdominal Problem Comm on pain, Spirit unspecifie - CHI d abdominal [facility] [id number] Depression Problem Co mmon screening [facility] [id number] Uncontroll Problem Co mmon ed type 2 Spirit diabetes - CHI mellitus with [facility] hyperglyce [facility] Peripheral Peripheral Problem C ommon neuropathy neuropathy Sp tarun - [facility] [id number] Insomnia, Problem Com mon unspecifie Spirit d type [facility] [id number] Hammer toe Problem Co mmon of right [facility] foot [facility] Iron Iron Problem Common deficiency deficiency Sp tarun anemia anemia - [facility] [id number] Primary Problem Commo n osteoarthr Spirit itis - CHI involving [facility] [id number] Cardiomyop Problem Com mon athy, Spirit unspecifie - CHI d type [facility] [id number] Decreased Problem Comm on diastolic Spirit blood - CHI pressure [facility] [id number] Pneumonia Problem Com mon due to Spirit infectious - CHI organism, [facility] Medical laterality Center , unspecifie d part of lung [id number] Arterioven Problem Co mmon ous Spirit malformati - CHI on small [facility] [id number] Tobacco Problem Commo n use Spirit disorder - [facility] [id number] Wheezing Problem Commo n Spirit - [facility] [id number] Tremor Problem [facility] Arterioven Arterioven Problem C ommon ous ous Spirit malformati malformati - CHI on on, other [facility] [id number] Depression Problem Com mon , major, Spirit single - CHI episode, [facility] [id number] Chronic Problem Commo n kidney Spirit disease, - CHI stage 3 [facility] [id number] Type 2 Problem Commo n 05 diabetes Spirit mellitus - CHI with [facility] kidney Center disease [id number] History of Problem C ommon [address] allergic Spirit reaction - [facility] [id number] Chronic Problem Commo n pain Spirit syndrome - [facility] Hyperlipid Hyperlipem Problem C ommon aemia ia Spirit - [facility] Type 2 Type 2 Problem Common diabetes diabetes Spirit mellitus mellitus - CHI without without St complicati complicati [facility]ora kes on on Medical Center Anemia Anemia Problem Resolve 2016-10-04 Mem oria (disorder) (disorder) d 00:05:00 l Resolved [place] Problem 10/04/2016 [facility] Congenital Congenita Problem Resolve 2016-10-04 Memoria arterioven l d 00:05:00 l ous arterioven Gilbert n malformati ous on malformati (disorder) on (disorder) Resolved Problem 10/04/2016 [facility] Gallbladde Gallbladd Problem Resolve 2016-10-04 Memoria r calculus er d 00:05:00 l (disorder) calculus Herm kun (disorder) Resolved Problem 10/04/2016 [facility] Gout Gout Problem Resolve 2016-10-04 Jim maya (disorder) (disorder) d 00:05:00 l Resolved [place] Problem 10/04/2016 [facility] History of History Problem Resolve 2016-10-04 Memoria - TIA of - TIA d 00:05:00 l (context-d (context-d He rmann ependent ependent category) category) Resolved Problem 10/04/2016 [facility] Asthma Asthma Problem Resolve 2016-10-04 Mem oria (disorder) (disorder) d 00:05:00 l Resolved [place] Problem 10/04/2016 [facility] Arthritis Arthritis Problem Resolve 2016-10-04 Memoria (disorder) (disorder) d 00:05:00 l Resolved [place] Problem 10/04/2016 [facility] Peripheral Periphera Problem Resolve 2016-10-04 Memoria vascular l vascular d 00:05:00 l disease disease Nader (disorder) (disorder) Resolved Problem 10/04/2016 [facility] Polyp of Polyp of Problem Resolve 2016-10-04 Memoria colon colon d 00:05:00 l (disorder) (disorder) He rmann Resolved Problem 10/04/2016 [facility] ENCNTR FOR ENCNTR Diagnosis Active 2016-10-01 Memoria GENERAL FOR 10:31:00 l ADULT GENERAL [place] MEDICAL ADULT EXAM W/ MEDICAL EXAM W/ Active [facility] OTHER OTHER Diagnosis Active 2017-02-10 Mem oria FECAL FECAL 16:16:00 l ABNORMALIT ABNORMALIT He chani IES IES Active [facility] Allergies, Adverse Reactions, Alerts Allergy Allergy Status Severity Reaction(s) Onset Inactive Treating Comm ents Source Name Type Date Date Clinician Codeine Propensi Active 2021-03 [facility] ty to 0-27 College adverse 00:00: of reaction 00 Medicin s to e drug Glimepir Propensi Active 2021-03 [facility] diane ty to 0-27 College adverse 00:00: of reaction 00 Medicin s to e drug Iodine Propensi Active 2021-03 Jeremías ty to 0-27 College adverse 00:00: of reaction 00 Medicin s to e drug Opioid Propensi Active 2021-03 [facility] Analgesi ty to 0-27 College cs adverse 00:00: of reaction 00 Medicin s to e drug Sulfa Propensi Active 2021-03 [facility] Antibiot ty to 0-27 College ics adverse 00:00: of reaction 00 Medicin s to e drug Atorvast Propensi Active 2021-03 [facility] atin ty to 0-27 College adverse 00:00: of reaction 00 Medicin s to e drug Clindamy Propensi Active 2021-03 [facility] fabián ty to 0-27 College adverse 00:00: of reaction 00 Medicin s to e drug HYDROXYZ DRUG Active Hives 2019-03 Univers INE INGREDI 0-12 ity of 00:00: [place] 00 Medical Branch Hydroxyz Propensi Active Hives 2019-03 Univer s ine ty to 0-12 ity of adverse 00:00: [place] reaction Medical s Branch METRONID DRUG Active High Hives 2018-03 Univers AZOLE INGREDI 0-15 ity of 00:00: [place] 00 Medical Branch SITAGLIP Allergy Active [facility] TIN 10-22 00:00: 00 SULFA Allergy Active Hives [facility] (SULFONA 10-22 MIDE 00:00: ANTIBIOT 00 ICS) SULFAMET Allergy Active [facility] HOXAZOLE 10-22 00:00: 00 TRIMETHO Allergy Active [facility] PRIM 10-22 00:00: 00 BUPROPIO Allergy Active [facility] N HCL 10-22 00:00: 00 PROPOXYP Allergy Active High Anaphylaxis SL EH HENE 10-22 N-ACETAM 00:00: INOPHEN 00 PEG Allergy Active High Anaphylaxis [facility] 3350-RADHA 10-22 CTROLYTE 00:00: S 00 IODINE Allergy Active High Anaphylaxis [facility] AND 10-22 IODIDE 00:00: CONTAINI 00 NG PRODUCTS ATORVAST Allergy Active Hives [facility] ATIN 10-22 00:00: 00 CLINDAMY Allergy Active [facility] FABIÁN 10-22 00:00: 00 CODEINE Allergy Active Itching [facility] 10-22 00:00: 00 ERYTHROM Allergy Active Hives [facility] YCIN 10-22 00:00: 00 Peg Propensi Active Anaphylaxis [facility] 3350-Radha ty to 10-22 [facility] ctrolyte adverse 00:00: Medical s reaction 00 Center s Iodine Propensi Active Anaphylaxis [facility] And ty to 10-22 [facility] Iodide adverse 00:00: Medical Containi reaction 00 Center ng s Products Morphine Propensi Active Itching CHI S t ty to 10-22 [facility] adverse 00:00: Medical reaction 00 Center s Penicill Propensi Active Hives [facility] ins ty to 10-22 [facility] adverse 00:00: Medical reaction 00 Center s Pioglita Propensi Active [facility] zone ty to 10-22 [facility] adverse 00:00: Medical reaction 00 Center s Rosuvast Propensi Active [facility] atin ty to 10-22 [facility] adverse 00:00: Medical reaction 00 Center s Sitaglip Propensi Active [facility] tin ty to 10-22 [facility] adverse 00:00: Medical reaction 00 Center s Sulfa Propensi Active Hives [facility] (Sulfona ty to 10-22 [facility] mide adverse 00:00: Medical Antibiot reaction 00 Center ics) s Sulfamet Propensi Active [facility] hoxazole ty to 10-22 [facility] adverse 00:00: Medical reaction 00 Center s Trimetho Propensi Active [facility] prim ty to 10-22 [facility] adverse 00:00: Medical reaction 00 Center s Bupropio Propensi Active [facility] n Hcl ty to 10-22 [facility] adverse 00:00: Medical reaction 00 Center s Atorvast Propensi Active Hives [facility] atin ty to 10-22 [facility] adverse 00:00: Medical reaction 00 Center s Clindamy Propensi Active [facility] fabián ty to 10-22 [facility] adverse 00:00: Medical reaction 00 Center s Codeine Propensi Active Itching [facility] ty to 10-22 [facility] adverse 00:00: Medical reaction 00 Center s Propoxyp Propensi Active Anaphylaxis [facility] hene ty to 10-22 [facility] N-Acetam adverse 00:00: Medical inophen reaction 00 Center s Erythrom Propensi Active Hives [facility] ycin ty to 10-22 [facility] adverse 00:00: Medical reaction 00 Center s Glimepir Propensi Active Hives [facility] diane ty to 10-22 [facility] adverse 00:00: Medical reaction 00 Center s Glipizid Propensi Active [facility] e ty to 10-22 [facility] adverse 00:00: Medical reaction 00 Center s GLIMEPIR Allergy Active Hives [facility] DIANE 10-22 00:00: 00 GLIPIZID Allergy Active [facility] E 10-22 00:00: 00 MORPHINE Allergy Active Itching [facility] 10-22 00:00: 00 PENICILL Allergy Active Hives [facility] INS 10-22 00:00: 00 PIOGLITA Allergy Active [facility] ZONE 10-22 00:00: 00 ROSUVAST Allergy Active [facility] ATIN 10-22 00:00: 00 PROPOXYP DRUG Active High Anaphylaxis Uni vers HENE 10-22 ity of N-ACETAM 00:00: [place] INOPHEN 00 Medical Branch BUPROPIO DRUG Active Other-Cmnt Univ ers N HCL INGREDI 10-22 ity of 00:00: [place] 00 Medical Branch PIOGLITA DRUG Active Unknown-Cmnt Un soni ZONE INGREDI 10-22 ity of 00:00: [place] 00 Medical Branch TRIMETHO DRUG Active Unknown-Cmnt Un soni PRIM INGREDI 10-22 ity of 00:00: [place] 00 Medical Branch ATORVAST DRUG Active Other-Cmnt Univ ers ATIN INGREDI 09-01 ity of 00:00: [place] 00 Medical Branch PENICILL DRUG Active Swelling Univer s IN INGREDI 09-01 ity of 00:00: [place] 00 Medical Branch SULFA Drug Active Hives 2017 Univers (SULFONA Class 09-01 ity of MIDE 00:00: [place] ANTIBIOT 00 Medical ICS) Branch SULFAMET DRUG Active Hives Univers HOXAZOLE INGREDI 09-01 ity of 00:00: [place] 00 Medical Branch BUPROPIO DRUG Active Hives 2017- Univers N INGREDI 09-01 ity of 00:00: [place] 00 Medical Branch CODEINE DRUG Active Low ITCHING 2017- Univers INGREDI 09-01 ity of 00:00: [place] 00 Medical Branch MORPHINE DRUG Active Low ITCHING 2017 Univers INGREDI 09-01 ity of 00:00: [place] 00 Medical Branch Sulfa Propensi Active Hives Univers (Sulfona ty to 09-01 ity of mide adverse 00:00: [place] Antibiot reaction 00 Medica l ics) s Branch Pioglita Propensi Active Hives Univer s [...] of adverse 00:00: only. As [place] reaction of Medical s 09/01/16, Branch has not [...] [place] reaction Medical s to Branch drug Penicill Propensi [...] Medical s Branch PIOGLITA DRUG Active Hives Univers ZONE HCL INGREDI 09-01 ity of 00:00: [place] 00 Medical Branch CLINDAMY DRUG Active ITCHING Univers FABIÁN INGREDI 09-01 ity of 00:00: [place] 00 Medical Branch ROSUVAST DRUG Active ITCHING Univers ATIN INGREDI 09-01 ity of CALCIUM 00:00: [place] 00 Medical Branch ERYTHROM DRUG Active Other-Cmnt Univ ers YCIN 09-01 ity of 00:00: [place] 00 Medical Branch GLIMEPIR DRUG Active Hives Univers DIANE INGREDI 09-01 ity of 00:00: [place] 00 Medical Branch IODINE DRUG Active Hives Univers INGREDI 09-01 ity of 00:00: [place] 00 Medical Branch SITAGLIP DRUG Active Other-Cmnt Univ ers TIN INGREDI 09-01 ity of 00:00: [place] 00 Medical Branch erythrom erythrom Active Memori a ycin ycin l [place] glimepir glimepir Active Memori a diane diane l Warriormine glipiZID glipiZID Active Memori a E E l [place] iodine iodine Active Memoria l [place]riorm[place] Januvia Januvia Active Memoria l [place] Lipitor Lipitor Active Memoria l [place] metFORMI metFORMI Active Memori a N N l [place] morphine morphine Active Memori a l [place] penicill penicill Active Memori a ins ins l [place] sulfa sulfa Active Memoria drugs drugs l [place] Wellbutr Wellbutr Active Memori a in in l [place] Bactrim Bactrim Active Memoria l [place] Bandaids Bandaids Active Memori a l [place] clindamy clindamy Active Memori a fabián fabián l Warriorm[place] codeine codeine Active Memoria l [place] Crestor Crestor Active Memoria l [place] Darvocet Darvocet Active Memori a -N 50 -N 50 l [place]riormine clindamy clindamy Active Unknown Commo n fabián fabián [facility] hydroxyz hydroxyz Active Unknown Commo n ine ine [facility] atorvast atorvast Active Unknown Commo n atin atin [facility] metronid metronid Active Unknown Commo n azole azole [facility] erythrom erythrom Active Unknown Commo n ycin ycin [facility] propoxyp propoxyp Active Unknown Commo n hene hene [facility] [id number] Drug Active Unknown Common allergy [facility] glimepir glimepir Active Unknown Commo n diane diane [facility] trimetho trimetho Active Unknown Commo n prim prim [facility] 463 Drug Active Unknown Common allergy [facility] Penicill Penicill Active Unknown Commo n in in [facility] pioglita pioglita Active Unknown Commo n zone zone [facility] bupropio bupropio Active Unknown Commo n n n [facility] rosuvast rosuvast Active Unknown Commo n atin atin [facility] [id number] Drug Active Unknown Common 43 allergy [facility] Family History Family Member Diagnosis Comments Start Date Stop Date Source Natural brother Depression [facility] Natural daughter Depression [facility] Natural father Early [facility] Natural mother No Known Problem [facility] Natural sister Depression [facility] Natural son No Known Problem [facility] Social History Social Habit Start Date Stop Date Quantity Comments Source History [facility] University o f Alcohol Frequency [place] M edical Branch History [facility] o f Alcohol Std Drinks [place] [facility] History [facility] o f Alcohol Binge [place] Medic al Branch History of tobacco Cigarette Smoker [facility] of use Medicine Cigarettes smoked 2022-01-22 2022-01-22 [facility] of current (pack per 00:00:00 00:00:00 Medicin e day) - Reported Cigarette 2022-01-22 2022-01-22 [facility] of pack-years 00:00:00 00:00:00 Medicine Exposure to 2021-07-24 2021-08-03 Not sure University of SARS-CoV-2 (event) 00:00:00 22:08:00 [facility] Alcohol Comment 2019-01-06 2019-01-06 1 glass of wine Univ ersity of 00:00:00 00:00:00 every few months [facility] Alcohol intake 2016-12-15 2016-12-[address] [facility] es 00:00:00 00:00:00 non-drinker of Medical Ce nter alcohol (finding) Tobacco use and 2016-12-11 2016-12-[address] Dora kes exposure 00:00:00 00:00:00 [facility] Tobacco Comment 2016-09-02 2016-09-02 quit in 2014 Univers ity of 00:00:00 00:00:00 [facility] Social History 2016-07-02 2016-07-02 [facility] karinkun 15:44:33 15:44:33 Sex [birth year] VANITA Sandhu kes 00:00:00 00:00:00 [facility] Smoking Status Start Date Stop Date Source Smokes tobacco daily 2022-01-22 00:00:00 [facility] Never smoker [facility] Center Medications Ordered Filled Start Stop Current Ordering Indication Dosage Frequency Signature Comments Components Source Medication Medication Date Date Medication? Clinician (SIG) Name Name INSULIN ASP 2021-03 Yes 35U Inject 35 B aylor PROT & ASP, 0-27 Units into Co llege HUM, 11:18: the skin. of (70-30) 100 30 Medicin UNIT/ML e SUSP metoprolol 2021-03 Yes TAKE 1 [facility] (TOPROL-XL) 0-27 TABLET BY Col lege 25 MG XL 11:18: MOUTH ONCE of tablet 30 DAILY Medicin e duloxetine 2021-03 Yes 1{capsu 1 capsule. [facility] (CYMBALTA) 0-27 le} College 60 MG 11:18: of capsule 30 Medicin e octreotide 2021-03- No [id number] 10mg Inject 10 Jeremías ACETATE 0-27 10-27 mg into College (SANDOSTATI 00:00: 00:00 the muscle of N LAR) 10 00 :00 every 30 Medici n MG days for e injection 12 doses. amitriptyli 2021-03 Yes 5mg Take [address] (ELAVIL) 0-21 by mouth Luke s 10 MG 13:08: every Medical tablet 52 night as Center needed . busPIRone 2021-03 Yes 15mg Q.5D Take [address] (BUSPAR) 15 0-21 by mouth 2 Dora kes MG tablet 13:08: (two) Medical 52 times Center daily. citalopram 2021-03 Yes 40mg QD Take [address] [facility] (CELEXA) 40 0-21 by mouth [facility] MG tablet 13:08: daily. Medica l 52 Center cyclobenzap 2021-03 Yes 5mg Take [address] [facility] rine 0-21 by mouth 3 [facility] (FLEXERIL) 13:08: (three) Medi jorge l 5 MG tablet 52 times Center daily as needed for Muscle spasms. gabapentin 2021-03 Yes 300mg Q.5D Take [address] [facility] (NEURONTIN) 0-21 mg by [facility] 600 MG 13:08: mouth 2 Medical tablet 52 (two) Center times daily . simvastatin 2021-03 Yes 20mg QD Take [address] [facility] (ZOCOR) 20 0-21 by mouth [facility] MG tablet 13:08: nightly. Medi jorge l 52 Center insulin 2021-03 Yes 35U Inject 35 [facility] protamine-i 13:08: subcutaneo Medical nsulin 52 usly 2 Center aspart (two) (NOVOLOG times MIX 70/30) daily with 100 unit/mL breakfast (70-30) and Soln dinner. injection insulin 2021-[address] [facility] aspart 0-21 [facility]cutaneo [facility] (NOVOLOG) 13:08: usly 3 Medica l 100 unit/mL 52 (three) Cente r InPn times daily with meals. guaiFENesin 2021-03 Yes 200mg Take [address] (ROBITUSSIN 0-21 mg by [facility] ) 100 mg/5 13:08: mouth 3 Medi jorge l mL syrup 52 (three) Center times daily as needed for Cough. LORazepam 2021-03 Yes anxiety .5mg Take 0.[address] [facility] (ATIVAN) 0-21 mg by [facility] 0.5 MG 13:08: mouth Medical tablet 52 every 12 Center (twelve) hours as needed for Anxiety. amitriptyli 2021-03 Yes 5mg Take [address] [facility] ne (ELAVIL) 0-21 by mouth [facility] 10 MG 13:08: every Medical tablet 52 night as Center needed . busPIRone 2021-03 Yes 15mg Q.5D Take [address] [facility] [address] [facility] (BUSPAR) 15 0-21 by mouth 2 [facility]ora kes MG tablet 13:08: (two) Medical 52 times Center daily. citalopram 2021-03 Yes 40mg QD Take [address] (CELEXA) 40 0-21 by mouth [facility] MG tablet 13:08: daily. Medica l 52 Center cyclobenzap 2021-03 Yes 5mg Take [address] [facility] rine 0-21 by mouth 3 [facility] (FLEXERIL) 13:08: (three) Medi jorge l 5 MG tablet 52 times Center daily as needed for Muscle spasms. gabapentin 2021-03 Yes 300mg Q.5D Take [address] (NEURONTIN) 0-21 mg by [facility] 600 MG 13:08: mouth 2 Medical tablet 52 (two) Center times daily . simvastatin 2021-03 Yes 20mg QD Take [address] [facility] (ZOCOR) 20 0-21 by mouth [facility] MG tablet 13:08: nightly. Medi jorge l 52 Center insulin 2021-03 Yes 35U Inject 35 [facility] protamine-i 13:08: subcutaneo Medical nsulin 52 usly 2 Center aspart (two) (NOVOLOG times MIX 70/30) daily with 100 unit/mL breakfast (70-30) and Soln dinner. injection insulin 2021-[address] [facility] aspart 0-21 [facility]cutaneo [facility] (NOVOLOG) 13:08: usly 3 Medica l 100 unit/mL 52 (three) Cente r InPn times daily with meals. guaiFENesin 2021-03 Yes 200mg Take [address] (ROBITUSSIN 0-21 mg by [facility] ) 100 mg/5 13:08: mouth 3 Medi jorge l mL syrup 52 (three) Center times daily as needed for Cough. LORazepam 2021-03 Yes anxiety .5mg Take 0.[address] (ATIVAN) 0-21 mg by [facility] 0.5 MG 13:08: mouth Medical tablet 52 every 12 Center (twelve) hours as needed for Anxiety. amitriptyli 2021-03 Yes 5mg Take [address] [facility] ne (ELAVIL) 0-21 by mouth [facility] 10 MG 13:08: every Medical tablet 52 night as Center needed . busPIRone 2021-03 Yes 15mg Q.5D Take [address] [facility] [address] [facility] (BUSPAR) 15 0-21 by mouth 2 Dora kes MG tablet 13:08: (two) Medical 52 times Center daily. citalopram 2021-03 Yes 40mg QD Take [address] (CELEXA) 40 0-21 by mouth [facility] MG tablet 13:08: daily. Medica l 52 Center cyclobenzap 2021-03 Yes 5mg Take [address] [facility] [address] [facility] rine 0-21 by mouth 3 [facility] (FLEXERIL) 13:08: (three) Medi jorge l 5 MG tablet 52 times Center daily as needed for Muscle spasms. gabapentin 2021-03 Yes 300mg Q.5D Take [address] (NEURONTIN) 0-21 mg by [facility] 600 MG 13:08: mouth 2 Medical tablet 52 (two) Center times daily . simvastatin 2021-03 Yes 20mg QD Take [address] [facility] (ZOCOR) 20 0-21 by mouth [facility] MG tablet 13:08: nightly. Medi jorge l 52 Center insulin 2021-03 Yes 35U Inject 35 [facility] 0-[facility] Units [facility] protamine-i 13:08: subcutaneo Medical nsulin 52 usly 2 Center aspart (two) (NOVOLOG times MIX 70/30) daily with 100 unit/mL breakfast (70-30) and Soln dinner. injection insulin 2021-[address] [facility] aspart 0-21 [facility]cutaneo [facility] (NOVOLOG) 13:08: usly 3 Medica l 100 unit/mL 52 (three) Cente r InPn times daily with meals. guaiFENesin 2021-03 Yes 200mg Take [address] (ROBITUSSIN 0-21 mg by [facility] ) 100 mg/5 13:08: mouth 3 Medi jorge l mL syrup 52 (three) Center times daily as needed for Cough. LORazepam 2021-03 Yes anxiety .5mg Take 0.[address] (ATIVAN) 0-21 mg by [facility] 0.5 MG 13:08: mouth Medical tablet 52 every 12 Center (twelve) hours as needed for Anxiety. amitriptyli 2021-03 Yes 5mg Take [address] [facility] ne (ELAVIL) 0-21 by mouth [facility] 10 MG 13:08: every Medical tablet 52 night as Center needed . busPIRone 2021-03 Yes 15mg Q.5D Take [address] [facility] [address] [facility] (BUSPAR) 15 0-21 by mouth 2 Dora kes MG tablet 13:08: (two) Medical 52 times Center daily. citalopram 2021-03 Yes 40mg QD Take [address] (CELEXA) 40 0-21 by mouth [facility] MG tablet 13:08: daily. Medica l 52 Center cyclobenzap 2021-03 Yes 5mg Take [address] [facility] rine 0-21 by mouth 3 [facility] (FLEXERIL) 13:08: (three) Medi jorge l 5 MG tablet 52 times Center daily as needed for Muscle spasms. gabapentin 2021-03 Yes 300mg Q.5D Take [address] (NEURONTIN) 0-21 mg by [facility] 600 MG 13:08: mouth 2 Medical tablet 52 (two) Center times daily . simvastatin 2021-03 Yes 20mg QD Take [address] [facility] (ZOCOR) 20 0-21 by mouth [facility] MG tablet 13:08: nightly. Medi jorge l 52 Center insulin 2021-03 Yes 35U Inject 35 [facility] 0-21 Units [facility] protamine-i 13:08: subcutaneo Medical nsulin 52 usly 2 Center aspart (two) (NOVOLOG times MIX 70/30) daily with 100 unit/mL breakfast (70-30) and Soln dinner. injection insulin 2021-[address] [facility] aspart 0-21 subcutaneo [facility] (NOVOLOG) 13:08: usly 3 Medica l 100 unit/mL 52 (three) Cente r InPn times daily with meals. guaiFENesin 2021-03 Yes 200mg Take [address] (ROBITUSSIN 0-21 mg by [facility] ) 100 mg/5 13:08: mouth 3 Medi jorge l mL syrup 52 (three) Center times daily as needed for Cough. LORazepam 2021-03 Yes anxiety .5mg Take 0.[address] (ATIVAN) 0-21 mg by [facility] 0.5 MG 13:08: mouth Medical tablet 52 every 12 Center (twelve) hours as needed for Anxiety. pregabalin 2021-03 Yes TAKE 1 [facility] (LYRICA) 50 0-14 CAPSULE BY [facility] MG capsule 00:00: MOUTH of 00 EVERY 8 Medicin HOURS e Benzonatate Benzonatate 2021- No 1{capsu Benzonatat 200 [...] 00:00 eeded} 00 :00 Cefdinir Cefdinir 2021-0 2- No Cefdinir 300 MG 300 MG 11-10 300 MG 00:00: 00:00 00 :00 Cefdinir Cefdinir 2021-0 2- No Cefdinir 300 MG 300 MG 11-10 300 MG 00:00: 00:00 00 :00 Cefdinir Cefdinir 2021-0 2- No Cefdinir 300 MG 300 MG 11-10 300 MG 00:00: 00:00 00 :00 Cefdinir Cefdinir 2021-0 2- No Cefdinir 300 MG 300 MG 10-08 300 MG 00:00: 00:00 00 :00 Cefdinir Cefdinir 2021-0 2- No Cefdinir 300 MG 300 MG 10-08 300 MG 00:00: 00:00 00 :00 Cefdinir Cefdinir 2-0 2- No Cefdinir 300 MG 300 MG 10-08 300 MG 00:00: 00:00 00 :00 Cefdinir Cefdinir 2-0 2- No Cefdinir 300 MG 300 MG 10-08 300 MG 00:00: 00:00 00 :00 predniSONE predniSONE 2-0 2- No QD predniSONE 20 MG 20 MG 10-08 20 MG 00:00: 00:00 00 :00 predniSONE predniSONE 2-0 2- No QD predniSONE 20 MG 20 MG 10-08 20 MG 00:00: 00:00 00 :00 predniSONE predniSONE 2-0 2- No QD predniSONE 20 MG 20 MG 10-08 20 MG 00:00: 00:00 00 :00 predniSONE predniSONE 2-0 2- No QD predniSONE 20 MG 20 [...] HCl 60 MG 00:00: 00 DULoxetine DULoxetine 2022-0 No 1{capsu QD DULoxetine HCl 60 MG [...] 7-10). Indication s: acute pain methylPREDN methylPREDN 2021-0 2021- No QD methylPRED ISolone 4 ISolone 4 -08-05 NISolone 4 MG MG 00:00: 00:00 MG 00 :00 methylPREDN methylPREDN 2021-0 2021- No QD methylPRED ISolone 4 ISolone 4 -08-05 NISolone 4 MG MG 00:00: 00:00 MG [...] 2021-0 No 3{ml_as QID Ipratropiu -Albuterol -Albuterol -14 _needed m-Albutero 0.5-2.5 (3) 0.5-2.5 (3) 00:00: } l 0.5-2.5 MG/3ML MG/3ML 00 (3) MG/3ML EPINEPHrine EPINEPHrine 0 No EPINEPHrin 0.3 0.3 1-14 e 0.3 MG/0.3ML MG/0.3ML 00:00: MG/0.3ML 00 Ipratropium Ipratropium 2021-0 No 3{ml_as QID Ipratropiu -Albuterol -Albuterol 14 _needed m-Albutero 0.5-2.5 (3) 0.5-2.5 (3) 00:00: [...] MG/3ML MG/3ML 00 (3) MG/3ML Ipratropium Ipratropium 2021-0 No 3{ml_as QID Ipratropiu [...] by ity of vitamin C, 16:37: mouth [place] 500 mg 13 daily. Medical tablet Branch aspirin 81 2020-03 Yes 81mg Take 81 mg U nivers mg EC 2-14 by mouth ity of tablet 16:37: daily. [place] [address] Medical Branch Cholecalcif 2020-03 Yes Take by Uni vers mechelle, 2-14 mouth ity of Vitamin D3, 16:37: [place]. [place]000 unit 13 Medical capsule Branch Magnesium 2020-03 Yes Take by Unive rs Oxide 500 2-14 mouth ity of mg Tab 16:37: daily. [place] [address] Medical Branch insulin 2020-03 Yes Inject as Unive rs regular, 2-14 directed ity of human 16:37: as needed. [place] (NOVOLIN R 13 Medical INJECTION) Branch zinc 2020-03 Yes Take by [facility] sulfate 2-14 mouth. ity of (ZINC-15 16:37: [place] ORAL) 13 Medical Branch citalopram 2020-03 Yes 20mg Take 20 mg U nivers 20 mg 2-14 by mouth ity of tablet 16:37: daily. [place] [address] Medical Branch ascorbic 2020-03 Yes 500mg Take 500 Univ ers acid, 2-14 mg by ity of vitamin C, 16:37: mouth [place] 500 mg 13 daily. Medical tablet Branch aspirin 81 2020-03 Yes 81mg Take 81 mg U nivers mg EC 2-14 by mouth ity of tablet 16:37: daily. [place] [address] Medical Branch Cholecalcif 2020-03 Yes Take by Uni vers mechelle, 2-14 mouth ity of Vitamin D3, 16:37: [facility]. [facility] Medical capsule Branch Magnesium 2020-03 Yes Take by Unive rs Oxide 500 2-14 mouth ity of mg Tab 16:37: daily. [place] [address] Medical Branch insulin 2020-03 Yes Inject as Unive rs regular, 2-14 directed ity of human 16:37: as needed. [place] (NOVOLIN R 13 Medical INJECTION) Branch zinc 2020-03 Yes Take by [facility] sulfate 2-14 mouth. ity of (ZINC-15 16:37: [place] ORAL) Medical Branch citalopram 2020-03 Yes 20mg Take 20 mg U nivers 20 mg 2-14 by mouth ity of tablet 16:37: daily. [place] [address] Medical Branch Magnesium 2020-03 Yes Take by [facility] Oxide 500 2-14 mouth [facility] MG TABS 00:00: daily. of 00 Medicin e metoprolol 2020-03 Yes [id number] 25mg Take 1 Univers succinate 1-12 tablet by ity o f XL 25 mg 24 00:00: mouth [place] hr tablet 00 daily. Medical Branch metoprolol 2020-03 Yes [id number] 25mg Take 1 [facility] succinate 1-12 tablet [...] MG 00:00: 25 MG 00 Ferrous Yes [id number] 1{tbl} Take 1 U nivers Fumarate 9-10 tablet by ity of 324 mg (106 00:00: mouth 2 [place] as mg iron) 00 (two) Medical Tab times Branch daily. Ferrous Yes [id number] 1{tbl} Take 1 U nivers Fumarate 9-10 tablet by ity of 324 mg (106 00:00: mouth 2 [place] as mg iron) 00 (two) Medical Tab times Branch daily. insulin NPH Yes [id number] 8U inject 8 [facility] and regular 9-08 Units ity of human 70-30 00:00: [place] the [place] (NOVOLIN 00 skin 2 Medical 70/30 U-100 (two) Branch INSULIN) times 100 unit/mL daily (70-30) before injection breakfast and dinner. insulin NPH Yes [id number] 8U inject 8 [facility] and regular 9-08 Units ity of human 70-30 00:00: [place] (NOVOLIN 00 skin 2 Medical 70/30 U-100 (two) Branch INSULIN) times 100 unit/mL daily (70-30) before injection breakfast and dinner. SERTraline Yes [id number] 100mg Take 1 [facility] 100 mg 9-06 tablet by ity of tablet 00:00: mouth [place] 00 daily. Medical Branch SERTraline Yes [id number] 100mg Take 1 [facility] 100 mg 9-06 tablet by ity of tablet 00:00: mouth [place] 00 daily. Medical Branch albuterol Yes [id number] 2{puff} Inhale 2 Univers 90 9-02 Puffs ity of mcg/actuati 00:00: every 6 [place] as on inhaler 00 (six) Medical hours as Branch needed for Wheezing or Shortness of Breath. albuterol Yes [id number] 2{puff} Inhale 2 Univers 90 9-02 Puffs ity of mcg/actuati 00:00: every 6 [place] as on inhaler 00 (six) Medical hours as Branch needed for Wheezing or Shortness of Breath. gabapentin Yes [id number] 200mg Take 2 [facility] 100 mg 7-20 capsules ity of capsule 00:00: by mouth every Medical evening. Branch gabapentin Yes [id number] 200mg Take 2 [facility] 100 mg 7-20 capsules ity of capsule 00:00: by mouth every Medical evening. Branch Methylcellu 0 Yes [id number] 17g Take 17 g Univers lose, with 1-27 by mouth ity o f Sugar, 00:00: daily. [place] (CITRUCEL, 00 Medical SUCROSE,) Branch powder Methylcellu Yes [id number] 17g Take 17 g Univers lose, with 1-27 by mouth ity o f Sugar, 00:00: daily. [place] (CITRUCEL, 00 Medical SUCROSE,) Branch powder Belsomra Belsomra Yes Pricila 1 tablet Common 7-24 [place] at bedtime Spir it 00:00: as needed - [facility] 00 [facility] BusPIRone BusPIRone Yes Pricila 1 tablet Common HCl HCl 6-10 [place] as needed Spiri t 00:00: for - [facility] 00 anxiety [facility] Trazodone Trazodone Yes Pricila 1/2 to 1 Common HCl HCl 6-10 [place] tablet at Spiri t 00:00: bedtime as - [facility] 00 needed for [facility] Ventolin Ventolin Yes Pricila 2 puffs as Common HFA HFA 3-19 [place] needed for Spir it 00:00: sob/wheezi - [facility]I 00 ng [facility] amitriptyli 2016- Yes 5mg Take [address] ne (ELAVIL) 9-20 by mouth Luke s 10 MG 15:27: every Medical tablet 03 night as Center needed . busPIRone Yes 15mg Q.5D Take [address] [facility] (BUSPAR) 15 9-20 by mouth 2 Dora kes MG tablet 15:27: (two) Medical 03 times Center daily. citalopram 2017-0 Yes 40mg QD Take [address] (CELEXA) 40 9-20 by mouth Luke [facility] MG tablet 15:27: daily. Medica l 03 Center cyclobenzap Yes 5mg Take 5 mg [facility] [...] nightly. Medi jorge l 03 Center insulin 2017-0 Yes 35U Inject 35 [facility] aspart 9-20 Units [facility] protamine-i 15:27: subcutaneo Medical nsulin 03 usly 2 Center aspart (two) (NOVOLOG times MIX 70/30) daily with 100 unit/mL breakfast (70-30) and Soln dinner. injection insulin 2017-[address] [facility] aspart 9-20 [facility]cut[facility]o [facility] (NOVOLOG) 15:27: usly 3 Medica l 100 unit/mL 03 (three) Cente r InPn times daily with meals. guaiFENesin 2017-0 Yes 200mg Take [address] (ROBITUSSIN 9-20 mg by [facility] ) 100 mg/5 15:27: mouth 3 Medi jorge l mL syrup 03 (three) Center times daily as needed for Cough. LORazepam 2017-0 Yes anxiety .5mg Take 0.[address] (ATIVAN) 9-20 mg by [facility] 0.5 MG 15:27: mouth Medical tablet 03 every 12 Center (twelve) hours as needed for Anxiety. amitriptyli 2017-0 Yes 5mg Take [address] ne (ELAVIL) 9-20 by mouth Luke s 10 MG 15:27: every Medical tablet 03 night as Center needed . busPIRone 2017-0 Yes 15mg Q.5D Take [address] [facility] [address] [facility] (BUSPAR) 15 9-20 by mouth 2 Dora kes MG tablet 15:27: (two) Medical 03 times Center daily. citalopram 2017-0 Yes 40mg QD Take [address] (CELEXA) 40 9-20 by mouth Luke s MG tablet 15:27: daily. Medica l 03 Center cyclobenzap 2017-0 Yes 5mg Take 5 mg [facility] [...] nightly. Medi jorge l 03 Center insulin 2017-0 Yes 35U Inject 35 [facility] aspart 9-20 Units [facility] protamine-i 15:27: subcutaneo Medical nsulin 03 usly 2 Center aspart (two) (NOVOLOG times MIX 70/30) daily with 100 unit/mL breakfast (70-30) and Soln dinner. injection insulin 2017-[address] [facility] aspart 9-20 [facility]cut[facility]o [facility] (NOVOLOG) 15:27: usly 3 Medica l 100 unit/mL 03 (three) Cente r InPn times daily with meals. guaiFENesin 2017-0 Yes 200mg Take [address] (ROBITUSSIN 9-20 mg by [facility] ) 100 mg/5 15:27: mouth 3 Medi jorge l mL syrup 03 (three) Center times daily as needed for Cough. LORazepam 2017-0 Yes anxiety .5mg Take 0.[address] (ATIVAN) 9-20 mg by [facility] 0.5 MG 15:27: mouth Medical tablet 03 every 12 Center (twelve) hours as needed for Anxiety. clopidogrel 2017-0 Yes 75mg QD Take [address] [facility] (PLAVIX) 75 9-02 tablet (75 Dora kes mg tablet 00:00: mg total) Med ical 00 by mouth Center daily. pantoprazol 2017-0 Yes 40mg Q.5D Take [address] [facility] e 9-02 tablet (40 [facility] (PROTONIX) 00:00: mg total) Me dical 40 MG 00 by mouth 2 Center tablet (two) times daily. clopidogrel 2017-0 Yes 75mg QD Take [address] [facility] (PLAVIX) 75 9-02 tablet (75 Dora kes mg tablet 00:00: mg total) Med ical 00 by mouth Center daily. pantoprazol 2017-0 Yes 40mg Q.5D Take [address] [facility] e 9-02 tablet (40 [facility] (PROTONIX) 00:00: mg total) Me dical 40 MG 00 by mouth 2 Center tablet (two) times daily. clopidogrel 2017-0 Yes 75mg QD Take [address] [facility] (PLAVIX) 75 9-02 tablet (75 Dora kes mg tablet 00:00: mg total) Med ical 00 by mouth Center daily. pantoprazol 2017-0 Yes 40mg Q.5D Take [address] [facility] e 9-02 tablet (40 [facility] (PROTONIX) 00:00: mg total) Me dical 40 MG 00 by mouth 2 Center tablet (two) times daily. clopidogrel 2017-0 Yes 75mg QD Take [address] [facility] (PLAVIX) 75 9-02 tablet (75 Dora kes mg tablet 00:00: mg total) Med ical 00 by mouth Center daily. pantoprazol 2017-0 Yes 40mg Q.5D Take [address] [facility] e 9-02 tablet (40 [facility] (PROTONIX) 00:00: mg total) Me dical 40 MG 00 by mouth 2 Center tablet (two) times daily. clopidogrel 2017-0 Yes 75mg QD Take [address] [facility] (PLAVIX) 75 9-02 tablet (75 Dora kes mg tablet 00:00: mg total) Med ical 00 by mouth Center daily. pantoprazol 2017-0 Yes 40mg Q.5D Take [address] [facility] e 9-02 tablet (40 [facility] (PROTONIX) 00:00: mg total) Me dical 40 MG 00 by mouth 2 Center tablet (two) times daily. clopidogrel 2017-0 Yes 75mg QD Take [address] [facility] (PLAVIX) 75 9-02 tablet (75 Dora kes mg tablet 00:00: mg total) Med ical 00 by mouth Center daily. pantoprazol 2017-0 Yes 40mg Q.5D Take [address] [facility] e 9-02 tablet (40 [facility] (PROTONIX) 00:00: mg total) Me dical 40 MG 00 by mouth 2 Center tablet (two) times daily. metFORMIN 2017-0 Yes Resume if [facility] (GLUCOPHAGE 8-01 you were Luke s ) 1000 MG 00:00: taking Medica l tablet 00 prior to Center admission. metFORMIN 2017-0 Yes Resume if [facility] (GLUCOPHAGE 8-01 you were Luke s ) 1000 MG 00:00: taking Medica l tablet 00 prior to Center admission. metFORMIN 2017-0 Yes Resume if [facility] (GLUCOPHAGE 8-01 you were Luke s ) 1000 MG 00:00: taking Medica l tablet 00 prior to Center admission. metFORMIN Yes Resume if [facility] (GLUCOPHAGE 8-01 you were Luke s ) 1000 MG 00:00: taking Medica l tablet 00 prior to Center admission. metFORMIN 2016- Yes Resume if [facility] (GLUCOPHAGE 8-01 you were Luke s ) 1000 MG 00:00: taking Medica l tablet 00 prior to Center admission. metFORMIN 2016- Yes Resume if [facility] (GLUCOPHAGE 8-01 you were Luke s ) 1000 MG 00:00: taking Medica l tablet 00 [facility], Memori a oral powder 7-06 PO, l for 16:28: Q10Min, Nader reconstitut 00 Give jug ion for Colonoscop y, # 1 ea, 0 Refill(s), Pharmacy: [facility] [address] [place] [address] Yes 240 mL, Memori a oral powder 7-06 PO, l for 16:28: Q10Min, Nader reconstitut 00 Give jug ion for Colonoscop y, # 1 ea, 0 Refill(s), Pharmacy: [facility] [address] [place] [address] Yes 240 mL, Memori a oral powder 7-06 PO, l for 16:28: Q10Min, Warriormine reconstitut 00 Give jug ion for Colonoscop y, # 1 ea, 0 Refill(s), Pharmacy: [facility] [address] [place] [address] Yes 240 mL, Memori a oral powder 7-06 PO, l for 16:28: Q10Min, Nader reconstitut 00 Give jug ion for Colonoscop y, # 1 ea, 0 Refill(s), Pharmacy: [facility] [address] [place] [address] Yes 240 mL, Memori a oral powder 7-06 PO, l for 16:28: Q10Min, Nader reconstitut 00 Give jug ion for Colonoscop y, # 1 ea, 0 Refill(s), Pharmacy: [facility] Octreotide Yes See Memoria 0.2 MG/ML 4-06 Instructio l Injectable 20:01: ns, 200 Herm [...] = 1 Mem oria acid 500 mg 07-02 tab, PO, l oral tablet 15:52: Daily, 0 He rmann 00 Refill(s) Lorazepam Yes 0.5 mg = 1 Me moria 0.5 MG Oral 07-02 tab, PO, l Tablet 15:52: TID, 0 [place] [Ativan] 00 Refill(s) SandoSTATIN Yes IM, q4wk, M emoria [place] 07-02 0 l 15:52: Refill(s) Nader 00 Docusate Yes 100 mg = 1 Mem oria Sodium 100 07-02 cap, PO, l MG Oral 15:52: BID, 0 Nader Capsule 00 Refill(s) [Colace] NovoLIN 2017 Yes SUB-Q, 0 Memori a 70/30 4-06 Refill(s) l 15:52: Warri[place]ine 00 Metformin Yes 1,000 mg = Me [...] PO, l Tablet 15:52: BID, # 6 [place] 00 tab, 0 Refill(s) Ondansetron Yes 4 mg = 1 Me moria 4 MG Oral 4-06 tab, PO, l Tablet 15:52: Q8H, 0 Nader [Zofran] 00 Refill(s) clopidogrel Yes 75 mg = 1 M emoria 75 MG Oral 4-06 tab, PO, l Tablet 15:52: Daily, 0 Nader [Plavix] 00 Refill(s) amitriptyli Yes 10 mg = 1 M emoria [...] tab, PO, l Tablet 15:52: Daily, 0 [place] [Lasix] 00 Refill(s) Insulin, 2017 Yes SUB-Q, Memoria Aspart, 07-02 TID-Before l Human 100 15:52: Meals, 0 Herm kun UNT/ML 00 Refill(s) Injectable Solution [NovoLog] Buspar Yes 15 mg, PO, Memor ia 4- BID, 0 l 15:52: Refill(s) Nader 00 Citalopram Yes 40 mg = 1 Me moria 40 MG Oral 4- tab, PO, l Tablet 15:52: Daily, 0 [...] , BID, 0 l 0.05 15:52: Refill(s) [place]ine MG/ACTUAT 00 Dry Powder Inhaler Miralax Yes 17 gm, PO, Jim maya 07-02 Daily, 0 l 15:52: Refill(s) Nader 00 magnesium Yes 500 mg = 1 Me moria oxide 500 - tab, PO, l mg oral 15:52: Daily, 0 Gilbert n tablet 00 Refill(s) Tylenol Yes 500 mg, Memoria -06 PO, 0 l 15:52: Refill(s) Warriormine 00 200 ACTUAT Yes 2 puff, Jim maya Albuterol 06 INHALATION l 0.09 15:52: , Q4H, 0 [place] MG/ACTUAT 00 Refill(s) Dry Powder Inhaler ascorbic Yes 500 mg = 1 Mem oria acid 500 mg 4-06 tab, PO, l oral tablet 15:52: Daily, 0 He rmann 00 Refill(s) Lorazepam 2017 Yes 0.5 mg = 1 Me moria 0.5 MG Oral 4-06 tab, PO, l Tablet 15:52: TID, 0 [place] [Ativan] 00 Refill(s) SandoSTATIN 2017 Yes IM, q4wk, M emoria [place] 4-06 0 l 15:52: Refill(s) Nader 00 Docusate Yes 100 mg = 1 Mem oria Sodium 100 4-06 cap, PO, l MG Oral 15:52: BID, 0 Nader Capsule 00 Refill(s) [Colace] NovoLIN Yes SUB-Q, 0 Memori a 70/30 4-06 Refill(s) l 15:52: Warriormine 00 Metformin Yes 1,000 mg = Me [...] PO, l Tablet 15:52: BID, # 6 [place] 00 tab, 0 Refill(s) Ondansetron Yes 4 mg = 1 Me moria 4 MG Oral 4-06 tab, PO, l Tablet 15:52: Q8H, 0 [place] [Zofran] 00 Refill(s) clopidogrel 2017 Yes 75 mg = 1 M emoria 75 MG Oral 4-06 tab, PO, l Tablet 15:52: Daily, 0 [place] [Plavix] 00 Refill(s) amitriptyli Yes 10 mg = 1 M emoria ne 10 mg 4-06 tab, PO, l oral tablet 15:52: Bedtime, # Nader 00 30 tab, 1 Refill(s) Omeprazole 2017 Yes 40 mg = 1 Me moria 40 MG 4-06 cap, PO, l Enteric 15:52: Daily, 0 Gilbert n Coated 00 Refill(s) Capsule [Prilosec] Cyclobenzap Yes 5 mg = 1 Me moria rine 4-06 tab, PO, l hydrochlori 15:52: TID, 0 Herm kun de 5 MG 00 Refill(s) Oral Tablet [Flexeril] Simvastatin Yes 20 mg = 1 M emoria 20 MG Oral 4-06 tab, PO, l Tablet 15:52: Bedtime, 0 Elisa nn [Zocor] 00 Refill(s) cholecalcif Yes 1,000 Memor ia mechelle 1000 - IntlUnit = l intl units 15:52: 1 cap, PO, H ermann oral 00 Daily, 0 capsule Refill(s) Furosemide Yes 20 mg = 1 Me moria 20 MG Oral 4-06 tab, PO, l Tablet 15:52: Daily, 0 Nader [Lasix] 00 Refill(s) Insulin, Yes SUB-Q, Memoria Aspart, 06 TID-Before l Human 100 15:52: Meals, 0 Herm kun UNT/ML 00 Refill(s) Injectable Solution [NovoLog] Buspar Yes 15 mg, PO, Memor ia 4-06 BID, 0 l 15:52: Refill(s) Warriormine 00 Citalopram Yes 40 mg = 1 Me moria 40 MG Oral 4-06 tab, PO, l Tablet 15:52: Daily, 0 [place] [Celexa] 00 Refill(s) aspirin 81 Yes 81 [...] maya 4-06 Daily, 0 l 15:52: Refill(s) Warriormine 00 magnesium Yes 500 mg = 1 Me moria oxide 500 4-06 tab, PO, l mg oral 15:52: Daily, 0 Gilbert n tablet 00 Refill(s) Tylenol 2017 Yes 500 mg, Memoria 4-06 PO, 0 l 15:52: Refill(s) Warriormine 00 200 ACTUAT 2017 Yes 2 puff, Jim maya Albuterol 4-06 INHALATION l 0.09 15:52: , Q4H, 0 Warriormine MG/ACTUAT 00 Refill(s) Dry Powder Inhaler ascorbic Yes 500 mg = 1 Mem oria acid 500 mg 4-06 tab, PO, l oral tablet 15:52: Daily, 0 He rmann 00 Refill(s) Lorazepam Yes 0.5 mg = 1 Me moria 0.5 MG Oral 4-06 tab, PO, l Tablet 15:52: TID, 0 Warriormine [Ativan] 00 Refill(s) SandoSTATIN Yes IM, q4wk, M emoria LAR [place] 06 0 l 15:52: Refill(s) Warriormine 00 Docusate Yes 100 mg = 1 Mem oria Sodium 100 4-06 cap, PO, l MG Oral 15:52: BID, 0 Warriormine Capsule 00 Refill(s) [Colace] NovoLIN Yes SUB-Q, 0 Memori a 70/30 4-06 Refill(s) l 15:52: Nader 00 Metformin Yes [...] 6 Nader 00 tab, 0 Refill(s) Ondansetron Yes 4 mg = 1 Me moria 4 MG Oral 4-06 tab, PO, l Tablet 15:52: Q8H, 0 Nader [Zofran] 00 Refill(s) clopidogrel 2017-0 Yes 75 mg = 1 M emoria 75 MG Oral 4-06 tab, PO, l Tablet 15:52: Daily, 0 Warriormine [Plavix] 00 Refill(s) amitriptyli 2017 Yes 10 mg = 1 M emoria ne 10 mg 4-06 tab, PO, l oral tablet 15:52: Bedtime, # Nader 00 30 tab, 1 Refill(s) Omeprazole 2017 Yes 40 mg = 1 Me moria 40 MG 4-06 cap, PO, l Enteric 15:52: Daily, 0 Gilbert n Coated 00 Refill(s) Capsule [Prilosec] Cyclobenzap Yes 5 mg = 1 Me moria [...] ia 4-06 BID, 0 l 15:52: Refill(s) Warriormine 00 Citalopram Yes 40 mg = 1 Me moria 40 MG Oral 4-06 tab, PO, l Tablet 15:52: Daily, 0 Nader [Celexa] 00 Refill(s) aspirin 81 2017 Yes 81 mg = 1 Me moria mg tablet, 4-06 tab, PO, l enteric 15:52: Daily, # Gilbert n coated 00 90 tab, 3 Refill(s) Vitamin B Yes 1 tab, PO, Me moria Complex 4-06 Daily, 0 l oral tablet 15:52: Refill(s) H ermann 00 Fluticasone Yes INHALATION Memoria propionate 06 , BID, 0 l 0.05 15:52: Refill(s) Nader MG/ACTUAT 00 Dry Powder Inhaler Miralax Yes 17 gm, PO, Jim maya 4 Daily, 0 l 15:52: Refill(s) Warriormine 00 magnesium Yes 500 mg = 1 Me moria oxide 500 07-02 tab, PO, l mg oral 15:52: Daily, 0 Gilbert n tablet 00 Refill(s) Tylenol Yes 500 mg, Memoria 07-02 PO, 0 l 15:52: Refill(s) Warriormine 00 200 ACTUAT Yes 2 puff, Jim maya Albuterol 07-02 INHALATION l 0.09 15:52: , Q4H, 0 Warriormine MG/ACTUAT 00 Refill(s) Dry Powder Inhaler ascorbic Yes 500 mg = 1 Mem oria acid 500 mg 07-02 tab, PO, l oral tablet 15:52: Daily, 0 He rmann 00 Refill(s) Lorazepam Yes 0.5 mg = 1 Me moria 0.5 MG Oral 07-02 tab, PO, l Tablet 15:52: TID, 0 Warriormine [Ativan] 00 Refill(s) SandoSTATIN Yes IM, q4wk, M emoria LAR [place] 07-02 0 l 15:52: Refill(s) Nader 00 Docusate Yes 100 mg = 1 Mem oria Sodium 100 07-02 cap, PO, l MG Oral 15:52: BID, 0 Warriormine Capsule 00 Refill(s) [Colace] NovoLIN Yes SUB-Q, 0 Memori a 70/30 06 Refill(s) l 15:52: Nader 00 Metformin Yes 1,000 mg = Me moria hydrochlori 06 1 tab, PO, l de 1000 MG [...] PO, l oral tablet 15:52: Bedtime, # Warriormine 00 30 tab, 1 Refill(s) Omeprazole 2017 Yes 40 mg = 1 Me moria 40 MG 4-06 cap, PO, l Enteric 15:52: Daily, 0 Gilbert n Coated 00 Refill(s) Capsule [Prilosec] Cyclobenzap Yes 5 mg = 1 Me moria [...] Daily, 0 Nader [Lasix] 00 Refill(s) Insulin, [address]70 Yes SUB-Q, Memoria Aspart, 4-06 TID-Before l Human 100 15:52: Meals, 0 Herm kun UNT/ML 00 Refill(s) Injectable Solution [NovoLog] Buspar Yes 15 mg, PO, Memor ia 4-06 BID, 0 l 15:52: Refill(s) Warriormine 00 Citalopram Yes 40 mg = 1 Me moria 40 MG Oral 4-06 tab, PO, l Tablet 15:52: Daily, 0 Warriormine [Celexa] 00 Refill(s) aspirin 81 Yes 81 mg = 1 Me moria mg tablet, 4-06 tab, PO, l enteric 15:52: Daily, # Gilbert n coated 00 90 tab, 3 Refill(s) Vitamin B Yes 1 tab, PO, Me moria Complex 4-06 Daily, 0 l oral tablet 15:52: Refill(s) H erm Fluticasone Yes INHALATION Memoria propionate 07-02 , BID, 0 l 0.05 15:52: Refill(s) Warriormine MG/ACTUAT Dry Powder Inhaler Miralax Yes 17 gm, PO, Jim maya - Daily, 0 l 15:52: Refill(s) magnesium Yes 500 mg = 1 Me moria oxide 500 - tab, PO, l mg oral 15:52: Daily, 0 Gilbert n tablet 00 Refill(s) Tylenol Yes 500 mg, Memoria 4-06 PO, 0 l 15:52: Refill(s) 200 ACTUAT Yes 2 puff, Jim maya Albuterol - INHALATION l 0.09 15:52: , Q4H, 0 Nader MG/ACTUAT 00 Refill(s) Dry Powder Inhaler ascorbic Yes 500 mg = 1 Mem oria acid 500 mg 4-06 tab, PO, l oral tablet 15:52: Daily, 0 He rmann 00 Refill(s) Lorazepam Yes 0.5 mg = 1 Me moria 0.5 MG Oral 4-06 tab, PO, l Tablet 15:52: TID, 0 Warriormine [Ativan] 00 Refill(s) SandoSTATIN Yes IM, q4wk, M emoria LAR [place] 07-02 0 l 15:52: Refill(s) Warriormine 00 Docusate 2017 Yes 100 mg = 1 Mem oria Sodium 100 4-06 cap, PO, l MG Oral 15:52: BID, 0 Nader Capsule 00 Refill(s) [Colace] NovoLIN 2017 Yes SUB-Q, 0 Memori a 70/30 4-06 Refill(s) l 15:52: Nader 00 Metformin 2017 Yes 1,000 mg = [...] PO, l Tablet 15:52: BID, # 6 Warriormine 00 tab, 0 Refill(s) Ondansetron 2017 Yes 4 mg = 1 Me moria 4 MG Oral 4-06 tab, PO, l Tablet 15:52: Q8H, 0 Warriormine [Zofran] 00 Refill(s) clopidogrel 2017 Yes 75 [...] Daily, 0 Nader [Lasix] 00 Refill(s) Insulin, Yes SUB-Q, Memoria Aspart, 07-02 TID-Before l Human 100 15:52: Meals, 0 Herm kun UNT/ML 00 Refill(s) Injectable Solution [NovoLog] Buspar Yes 15 mg, PO, Memor ia 4- BID, 0 l 15:52: Refill(s) Naedr 00 Citalopram Yes 40 mg = 1 Me moria 40 MG Oral -06 tab, PO, l Tablet 15:52: Daily, 0 Warriormine [Celexa] 00 Refill(s) aspirin 81 Yes 81 mg = 1 Me moria mg tablet, - tab, PO, l enteric 15:52: Daily, # Gilbert n coated 00 90 tab, 3 Refill(s) Vitamin B Yes 1 tab, PO, Me moria Complex 4-06 Daily, 0 l oral tablet 15:52: Refill(s) H ermann 00 Fluticasone Yes INHALATION Memoria propionate 07-02 , BID, 0 l 0.05 15:52: Refill(s) Warriormine MG/ACTUAT 00 Dry Powder Inhaler Miralax Yes 17 gm, PO, Jim maya 07-02 Daily, 0 l 15:52: Refill(s) Nader 00 magnesium Yes 500 mg = 1 Me moria oxide 500 -06 tab, PO, l mg oral 15:52: Daily, 0 Gilbert n tablet 00 Refill(s) Tylenol Yes 500 mg, Memoria 4-06 PO, 0 l 15:52: Refill(s) Warriormine 00 Citalopram Citalopram Yes Pricila 1 tablet [facility] Hydrobromid Hydrobromid [facility] Vitamin D Vitamin D Yes Pricila 1 tablet [facility] Metformin Metformin Yes Pricila 1 tablet [facility] HCl HCl [facility] with a [facility] meal [facility] Vitamin C Vitamin C Yes Pricila as Comm on [facility] Aspirin Aspirin Yes Pricila 1 tablet Comm on Adult Low Adult Low [facility] Strength Strength - [facility] Gabapentin Gabapentin Yes Pricila 2 capsules [facility] Vitamin B Vitamin B Yes Pricila as Comm on Complex Complex [facility] directed [facility] Aspirin Aspirin No 1{table QD Aspirin Adult [...] MG e 40 MG de 40 MG Zinc 50 MG Zinc 50 MG No 1{table QD Zinc 50 MG t} Buprenorphi Buprenorphi No 1{patch Buprenorph ne 5 MCG/HR ne 5 MCG/HR _to_ski ine 5 n} MCG/HR Metoprolol Metoprolol No 1{capsu QD Metoprolol Succinate Succinate le} Succinate 25 MG 25 MG 25 MG Pregabalin Pregabalin No 1{capsu Pregabalin 75 MG 75 MG le} 75 MG Citalopram Citalopram No Citalopram Hydrobromid Hydrobromid Hydrobromi e 20 MG e 20 MG de 20 MG Fish Oil Fish Oil No Fish Oil NovoLIN NovoLIN No BID NovoLIN 70/30 70/30 70/30 FlexPen FlexPen FlexPen (70-30) 100 (70-30) 100 (70-30) UNIT/ML UNIT/ML 100 UNIT/ML Magnesium Magnesium No 1{table QD Magnesium 500 MG 500 MG t_with_ 500 MG a_meal} Vitamin C Vitamin C No Vitamin C 500 MG 500 MG 500 MG Gabapentin Gabapentin No TID Gabapentin 300 MG 300 MG 300 MG Ventolin Ventolin No Ventolin HFA 108 (90 HFA 108 (90 HFA 108 Base) Base) (90 Base) MCG/ACT MCG/ACT MCG/ACT DULoxetine DULoxetine No 1{capsu QD DULoxetine HCl 60 MG HCl 60 MG le} HCl 60 MG Aspirin Aspirin No 1{table QD Aspirin Adult Low Adult Low t} Adult Low Strength 81 Strength 81 Strength MG MG 81 MG Vitamin B Vitamin B No Vitamin B Complex - Complex - Complex - Gabapentin Gabapentin No Gabapentin 100 MG 100 MG 100 MG Citalopram Citalopram No Citalopram Hydrobromid Hydrobromid Hydrobromi e 40 MG e 40 MG de 40 MG Zinc 50 MG Zinc 50 MG No 1{table QD Zinc 50 MG t} Buprenorphi Buprenorphi No 1{patch Buprenorph ne 5 MCG/HR ne 5 MCG/HR _to_ski ine 5 n} MCG/HR Metoprolol Metoprolol No 1{capsu QD Metoprolol Succinate Succinate le} Succinate 25 MG 25 MG 25 MG Pregabalin Pregabalin No 1{capsu Pregabalin 75 MG 75 MG le} 75 MG Citalopram Citalopram No Citalopram Hydrobromid Hydrobromid Hydrobromi e 20 MG e 20 MG de 20 MG Fish Oil Fish Oil No Fish Oil NovoLIN NovoLIN No BID NovoLIN 70/30 70/30 70/30 FlexPen FlexPen FlexPen (70-30) 100 (70-30) 100 (70-30) UNIT/ML UNIT/ML 100 UNIT/ML Magnesium Magnesium No 1{table QD Magnesium 500 MG 500 MG t_with_ 500 MG a_meal} Vitamin C Vitamin C No Vitamin C 500 MG 500 MG 500 MG Gabapentin Gabapentin No TID Gabapentin 300 MG 300 MG 300 MG Ventolin Ventolin No Ventolin HFA 108 (90 HFA 108 (90 HFA 108 Base) Base) (90 Base) MCG/ACT MCG/ACT MCG/ACT DULoxetine DULoxetine No 1{capsu QD DULoxetine HCl 60 MG HCl 60 MG le} HCl 60 MG Aspirin Aspirin No 1{table QD Aspirin Adult Low Adult Low t} Adult Low Strength 81 Strength 81 Strength MG MG 81 MG Vitamin B Vitamin B No Vitamin B Complex - Complex - Complex - Gabapentin Gabapentin No Gabapentin 100 MG 100 MG 100 MG Citalopram Citalopram No Citalopram Hydrobromid Hydrobromid Hydrobromi e 40 MG e 40 MG de 40 MG Zinc 50 MG Zinc 50 MG No 1{table QD Zinc 50 MG t} Buprenorphi Buprenorphi No 1{patch Buprenorph ne 5 MCG/HR ne 5 MCG/HR _to_ski ine 5 n} MCG/HR Metoprolol Metoprolol No 1{capsu QD Metoprolol Succinate Succinate le} Succinate 25 MG 25 MG 25 MG Pregabalin Pregabalin No 1{capsu Pregabalin 75 MG 75 MG le} 75 MG Citalopram Citalopram No Citalopram Hydrobromid Hydrobromid Hydrobromi e 20 MG e 20 MG de 20 MG Fish Oil Fish Oil No Fish Oil NovoLIN NovoLIN No BID NovoLIN 70/30 70/30 70/30 FlexPen FlexPen FlexPen (70-30) 100 (70-30) 100 (70-30) UNIT/ML UNIT/ML 100 UNIT/ML Magnesium Magnesium No 1{table QD Magnesium 500 MG 500 MG t_with_ 500 MG a_meal} Vitamin C Vitamin C No Vitamin C 500 MG 500 MG 500 MG Gabapentin Gabapentin No TID Gabapentin 300 MG 300 MG 300 MG Ventolin Ventolin No Ventolin HFA 108 (90 HFA 108 (90 HFA 108 Base) Base) (90 Base) MCG/ACT MCG/ACT MCG/ACT DULoxetine DULoxetine No 1{capsu QD DULoxetine HCl 60 MG HCl 60 MG le} HCl 60 MG Aspirin Aspirin No 1{table QD Aspirin Adult Low Adult Low t} Adult Low Strength 81 Strength 81 Strength MG MG 81 MG Vitamin B Vitamin B No Vitamin B Complex - Complex - Complex - Gabapentin Gabapentin No Gabapentin 100 MG 100 MG 100 MG Citalopram Citalopram No Citalopram Hydrobromid Hydrobromid Hydrobromi e 40 MG e 40 MG de 40 MG Zinc 50 MG Zinc 50 MG No 1{table QD Zinc 50 MG t} Buprenorphi Buprenorphi No 1{patch Buprenorph ne 5 MCG/HR ne 5 MCG/HR _to_ski ine 5 n} MCG/HR Metoprolol Metoprolol No 1{capsu QD Metoprolol Succinate Succinate le} Succinate 25 MG 25 MG 25 MG Pregabalin Pregabalin No 1{capsu Pregabalin 75 MG 75 MG le} 75 MG Citalopram Citalopram No Citalopram Hydrobromid Hydrobromid Hydrobromi e 20 MG e 20 MG de 20 MG Fish Oil Fish Oil No Fish Oil NovoLIN NovoLIN No BID NovoLIN 70/30 70/30 70/30 FlexPen FlexPen FlexPen (70-30) 100 (70-30) 100 (70-30) UNIT/ML UNIT/ML 100 UNIT/ML Magnesium Magnesium No 1{table QD Magnesium 500 MG 500 MG t_with_ 500 MG a_meal} Vitamin C Vitamin C No Vitamin C 500 MG 500 MG 500 MG Gabapentin Gabapentin No TID Gabapentin 300 MG 300 MG 300 MG Ventolin Ventolin No Ventolin HFA 108 (90 HFA 108 (90 HFA 108 Base) Base) (90 Base) MCG/ACT MCG/ACT MCG/ACT DULoxetine DULoxetine No 1{capsu QD DULoxetine HCl 60 MG HCl 60 MG le} HCl 60 MG Aspirin Aspirin No 1{table QD Aspirin Adult Low Adult Low t} Adult Low Strength 81 Strength 81 Strength MG MG 81 MG Vitamin B Vitamin B No Vitamin [...] Succinate 25 MG 25 MG 25 MG Immunizations Ordered Immunization Filled Immunization Date Status Commen ts Source Name Name FLUZONE HIGH DOSE FLUZONE HIGH DOSE 2021-12-30 Completed [facility] - OVER 65 OVER 65 14:13:00 [facility] FLUZONE HIGH DOSE FLUZONE HIGH DOSE 2021-12-30 Completed [facility] - OVER 65 OVER 65 14:13:00 [facility] FLUZONE HIGH DOSE FLUZONE HIGH DOSE 2021-12-30 Completed [facility] - OVER 65 OVER 65 14:13:00 [facility] FLUZONE HIGH DOSE FLUZONE HIGH DOSE 2021-12-30 Completed [facility] - OVER 65 OVER 65 14:13:00 [facility] FLUZONE HIGH DOSE FLUZONE HIGH DOSE 2021-12-30 Completed [facility] - OVER 65 OVER 65 14:13:00 [facility] FLUZONE HIGH DOSE FLUZONE HIGH DOSE 2021-12-30 Completed [facility] - OVER 65 OVER 65 14:13:00 [facility] FLUZONE HIGH DOSE FLUZONE HIGH DOSE 2021-12-30 Completed [facility] - OVER 65 OVER 65 14:13:00 [facility] FLUZONE HIGH DOSE FLUZONE HIGH DOSE 2021-12-30 Completed [facility] - OVER 65 OVER 65 14:13:00 [facility] FLUZONE HIGH DOSE FLUZONE HIGH DOSE 2021-12-30 Completed [facility] - OVER 65 OVER 65 14:13:00 [facility] FLUZONE HIGH DOSE FLUZONE HIGH DOSE 2021-12-30 Completed [facility] - OVER 65 OVER 65 14:13:00 [facility] Shingrix Shingrix 2021-01-26 Completed [facility] - 09:39:00 [facility] Shingrix Shingrix 2021-01-26 Completed [facility] - 09:39:00 [facility] Shingrix Shingrix 2021-01-26 Completed [facility] - 09:39:00 [facility] Shingrix Shingrix 2021-01-26 Completed [facility] - 09:39:00 [facility] Shingrix Shingrix 2021-01-26 [facility]pleted [facility] - 09:39:00 [facility] Shingrix Shingrix 2021-01-26 Completed [facility] - 09:39:00 [facility] Shingrix Shingrix 2021-01-26 Completed [facility] - 09:39:00 [facility] Shingrix Shingrix 2021-01-26 Completed [facility] - 09:39:00 [facility] Shingrix Shingrix 2021-01-26 [facility]pleted [facility] - 09:39:00 [facility] Shingrix Shingrix 2021-01-26 Completed [facility] - 09:39:00 [facility] Shingrix Shingrix 2021-01-26 Completed [facility] - 09:39:00 [facility] Shingrix Shingrix 2021-01-26 [facility]pleted [facility] - 09:39:00 [facility] Shingrix Shingrix 2021-01-26 Completed [facility] - 09:39:00 [facility] Shingrix Shingrix 2021-01-26 Completed [facility] - 09:39:00 [facility] Shingrix Shingrix 2021-01-26 Completed [facility] - 09:39:00 [facility] Shingrix Shingrix 2021-01-26 Completed [facility] - 09:39:00 [facility] Shingrix Shingrix 2021-01-26 Completed [facility] - 09:39:00 [facility] Shingrix Shingrix 2021-01-26 Completed [facility] - 09:39:00 [facility] Shingrix Shingrix 2021-01-26 Completed [facility] - 09:39:00 [facility] Shingrix Shingrix 2021-01-26 Completed [facility] - 09:39:00 [facility] Shingrix Shingrix 2021-01-26 Completed [facility] - 09:39:00 [facility] Shingrix Shingrix 2021-01-26 Completed [facility] - 09:39:00 [facility] Shingrix Shingrix 2021-01-26 Completed [facility] - 09:39:00 [facility] Shingrix Shingrix 2021-01-26 Completed [facility] - 09:39:00 [facility] Shingrix Shingrix 2021-01-26 Completed [facility] - 09:39:00 [facility] Shingrix Shingrix 2021-01-26 Completed [facility] - 09:39:00 [facility] Shingrix Shingrix 2021-01-26 Completed [facility] - 09:39:00 [facility] Shingrix Shingrix 2021-01-26 Completed [facility] - 09:39:00 [facility] Shingrix Shingrix 2021-01-26 Completed [facility] - 09:39:00 [facility] Shingrix Shingrix 2021-01-26 Completed [facility] - 09:39:00 [facility] Shingrix Shingrix 2021-01-26 Completed [facility] - 09:39:00 [facility] Shingrix Shingrix 2021-01-26 Completed [facility] - 09:39:00 [facility] Shingrix Shingrix 2021-01-26 Completed [facility] - 09:39:00 [facility] Shingrix Shingrix 2021-01-26 Completed [facility] - 09:39:00 [facility] Shingrix Shingrix 2021-01-26 Completed [facility] - 09:39:00 [facility] Shingrix Shingrix 2021-01-26 Completed [facility] - 09:39:00 [facility] Shingrix Shingrix 2021-01-26 Completed [facility] - 09:39:00 [facility] Shingrix Shingrix 2021-01-26 Completed [facility] - 09:39:00 [facility] Shingrix Shingrix 2021-01-26 Completed [facility] - 09:39:00 [facility] Shingrix Shingrix 2021-01-26 Completed [facility] - 09:39:00 [facility] Shingrix Shingrix 2021-01-26 Completed [facility] - 09:39:00 [facility] Shingrix Shingrix 2021-01-26 Completed [facility] - 09:39:00 [facility] Shingrix Shingrix 2021-01-26 Completed [facility] - 09:39:00 [facility] Shingrix Shingrix 2021-01-26 Completed [facility] - 09:39:00 [facility] Shingrix Shingrix 2021-01-26 Completed [facility] - 09:39:00 [facility] Shingrix Shingrix 2021-01-26 Completed [facility] - 09:39:00 [facility] Shingrix Shingrix 2021-01-26 Completed [facility] - 09:39:00 [facility] Shingrix Shingrix 2021-01-26 Completed [facility] - 09:39:00 [facility] Shingrix Shingrix 2021-01-26 Completed [facility] - 09:39:00 [facility] Shingrix Shingrix 2021-01-26 Completed [facility] - 09:39:00 [facility] Fluzone Fluzone 2020-12-26 Completed [facility] - 09:38:00 [facility] Fluzone Fluzone 2020-12-26 Completed [facility] - 09:38:00 [facility] Fluzone Fluzone 2020-12-26 Completed [facility] - 09:38:00 [facility] Fluzone Fluzone 2020-12-26 Completed [facility] - 09:38:00 [facility] Fluzone Fluzone 2020-12-26 Completed [facility] - 09:38:00 [facility] Fluzone Fluzone 2020-12-26 Completed [facility] - 09:38:00 [facility] Fluzone Fluzone 2020-12-26 Completed [facility] - 09:38:00 [facility] Fluzone Fluzone 2020-12-26 Completed [facility] - 09:38:00 [facility] Fluzone Fluzone 2020-12-26 Completed [facility] - 09:38:00 [facility] Fluzone Fluzone 2020-12-26 Completed [facility] - 09:38:00 [facility] Fluzone Fluzone 2020-12-26 Completed [facility] - 09:38:00 [facility] Fluzone Fluzone 2020-12-26 Completed [facility] - 09:38:00 [facility] Fluzone Fluzone 2020-12-26 Completed [facility] - 09:38:00 [facility] Fluzone Fluzone 2020-12-26 Completed [facility] - 09:38:00 [facility] Fluzone Fluzone 2020-12-26 Completed [facility] - 09:38:00 [facility] Fluzone Fluzone 2020-12-26 Completed [facility] - 09:38:00 [facility] Fluzone Fluzone 2020-12-26 Completed [facility] - 09:38:00 [facility] Fluzone Fluzone 2020-12-26 Completed [facility] - 09:38:00 [facility] Fluzone Fluzone 2020-12-26 Completed [facility] - 09:38:00 [facility] Fluzone Fluzone 2020-12-26 Completed [facility] - 09:38:00 [facility] Fluzone Fluzone 2020-12-26 Completed [facility] - 09:38:00 [facility] Fluzone Fluzone 2020-12-26 Completed [facility] - 09:38:00 [facility] Fluzone Fluzone 2020-12-26 Completed [facility] - 09:38:00 [facility] Fluzone Fluzone 2020-12-26 Completed [facility] - 09:38:00 [facility] Fluzone Fluzone 2020-12-26 Completed [facility] - 09:38:00 [facility] Fluzone Fluzone 2020-12-26 Completed [facility] - 09:38:00 [facility] Fluzone Fluzone 2020-12-26 Completed [facility] - 09:38:00 [facility] Fluzone Fluzone 2020-12-26 Completed [facility] - 09:38:00 [facility] Fluzone Fluzone 2020-12-26 Completed [facility] - 09:38:00 [facility] Fluzone Fluzone 2020-12-26 Completed [facility] - 09:38:00 [facility] Fluzone Fluzone 2020-12-26 Completed [facility] - 09:38:00 [facility] Fluzone Fluzone 2020-12-26 Completed [facility] - 09:38:00 [facility] Fluzone Fluzone 2020-12-26 Completed [facility] - 09:38:00 [facility] Fluzone Fluzone 2020-12-26 Completed [facility] - 09:38:00 [facility] Fluzone Fluzone 2020-12-26 Completed [facility] - 09:38:00 [facility] Fluzone Fluzone 2020-12-26 Completed [facility] - 09:38:00 [facility] Fluzone Fluzone 2020-12-26 Completed [facility] - 09:38:00 [facility] Fluzone Fluzone 2020-12-26 Completed [facility] - 09:38:00 [facility] Fluzone Fluzone 2020-12-26 Completed [facility] - 09:38:00 [facility] Fluzone Fluzone 2020-12-26 Completed [facility] - 09:38:00 [facility] Fluzone Fluzone 2020-12-26 Completed [facility] - 09:38:00 [facility] Fluzone Fluzone 2020-12-26 Completed [facility] - 09:38:00 [facility] Fluzone Fluzone 2020-12-26 Completed [facility] - 09:38:00 [facility] Fluzone Fluzone 2020-12-26 Completed [facility] - 09:38:00 [facility] Fluzone Fluzone 2020-12-26 Completed [facility] - 09:38:00 [facility] Fluzone Fluzone 2020-12-26 Completed [facility] - 09:38:00 [facility] Fluzone Fluzone 2020-12-26 Completed [facility] - 09:38:00 [facility] Fluzone Fluzone 2020-12-26 Completed [facility] - 09:38:00 [facility] Fluzone Fluzone 2020-12-26 Completed [facility] - 09:38:00 [facility] Fluzone Fluzone 2020-12-26 Completed [facility] - 09:38:00 [facility] SARS-COV-2 COVID-19 2020-11-15 Completed [facility] MODERNA VACCINE 00:00:00 [facility] SARS-COV-2 COVID-19 2020-11-15 Completed [facility] of MODERNA VACCINE 00:00:00 [facility] SARS-COV-2 COVID-19 2020-06-03 Completed [facility] of MODERNA VACCINE 00:00:00 [facility] SARS-COV-2 COVID-19 2020-06-03 Completed [facility] of MODERNA VACCINE 00:00:00 [facility] SARS-COV-2 COVID-19 2020-05-06 Completed [facility] rs[facility] of MODERNA VACCINE 00:00:00 [facility] SARS-COV-2 COVID-19 2020-05-06 Completed [facility] rs[facility] of MODERNA VACCINE 00:00:00 [facility] Prevnar 13 (PCV13) Prevnar 13 (PCV13) 2020-03-28 Completed [facility] - 15:01:00 [facility] Prevnar 13 (PCV13) Prevnar 13 (PCV13) 2020-03-28 Completed [facility] - 15:01:00 [facility] Prevnar 13 (PCV13) Prevnar 13 (PCV13) 2020-03-28 [facility]pleted [facility] - 15:01:00 [facility] Prevnar 13 (PCV13) Prevnar 13 (PCV13) 2020-03-28 [facility]pleted [facility] 15:01:00 [facility] Prevnar 13 (PCV13) Prevnar 13 (PCV13) 2020-03-28 Completed [facility] - 15:01:00 [facility] Prevnar 13 (PCV13) Prevnar 13 (PCV13) 2020-03-28 Completed [facility] - 15:01:00 [facility] Prevnar 13 (PCV13) Prevnar 13 (PCV13) 2020-03-28 Completed [facility] - 15:01:00 [facility] Prevnar 13 (PCV13) Prevnar 13 (PCV13) 2020-03-28 Completed [facility] - 15:01:00 [facility] Prevnar 13 (PCV13) Prevnar 13 (PCV13) 2020-03-28 Completed [facility] - 15:01:00 [facility] Prevnar 13 (PCV13) Prevnar 13 (PCV13) 2020-03-28 Completed [facility] - 15:01:00 [facility] Prevnar 13 (PCV13) Prevnar 13 (PCV13) 2020-03-28 Completed [facility] - 15:01:00 [facility] Prevnar 13 (PCV13) Prevnar 13 (PCV13) 2020-03-28 Completed [facility] - 15:01:00 [facility] Prevnar 13 (PCV13) Prevnar 13 (PCV13) 2020-03-28 Completed [facility] - 15:01:00 [facility] Prevnar 13 (PCV13) Prevnar 13 (PCV13) 2020-03-28 Completed [facility] - 15:01:00 [facility] Prevnar 13 (PCV13) Prevnar 13 (PCV13) 2020-03-28 Completed [facility] - 15:01:00 [facility] Prevnar 13 (PCV13) Prevnar 13 (PCV13) 2020-03-28 [facility]pleted [facility]:00 [facility] Prevnar 13 (PCV13) Prevnar 13 (PCV13) 2020-03-28 Completed [facility]:01:00 [facility] Prevnar 13 (PCV13) Prevnar 13 (PCV13) 2020-03-28 Completed [facility] 15:01:00 [facility] Prevnar 13 (PCV13) Prevnar 13 (PCV13) 2020-03-28 Completed [facility] 15:01:00 [facility] Prevnar 13 (PCV13) Prevnar 13 (PCV13) 2020-03-28 Completed [facility] 15:01:00 [facility] Prevnar 13 (PCV13) Prevnar 13 (PCV13) 2020-03-28 Completed [facility] 15:01:00 [facility] Prevnar 13 (PCV13) Prevnar 13 (PCV13) 2020-03-28 Completed [facility] 15:01:00 [facility] Prevnar 13 (PCV13) Prevnar 13 (PCV13) 2020-03-28 Completed [facility] 15:01:00 [facility] Prevnar 13 (PCV13) Prevnar 13 (PCV13) 2020-03-28 Completed [facility] 15:01:00 [facility] Prevnar 13 (PCV13) Prevnar 13 (PCV13) 2020-03-28 Completed [facility] 15:01:00 [facility] Prevnar 13 (PCV13) Prevnar 13 (PCV13) 2020-03-28 Completed [facility] 15:01:00 [facility] Prevnar 13 (PCV13) Prevnar 13 (PCV13) 2020-03-28 Completed [facility] 15:01:00 [facility] Prevnar 13 (PCV13) Prevnar 13 (PCV13) 2020-03-28 Completed [facility] 15:01:00 [facility] Prevnar 13 (PCV13) Prevnar 13 (PCV13) 2020-03-28 Completed [facility] 15:01:00 [facility] Prevnar 13 (PCV13) Prevnar 13 (PCV13) 2020-03-28 Completed [facility] 15:01:00 [facility] Prevnar 13 (PCV13) Prevnar 13 (PCV13) 2020-03-28 Completed [facility] 15:01:00 [facility] Prevnar 13 (PCV13) Prevnar 13 (PCV13) 2020-03-28 Completed [facility] 15:01:00 [facility] Prevnar 13 (PCV13) Prevnar 13 (PCV13) 2020-03-28 Completed [facility] 15:01:00 [facility] Prevnar 13 (PCV13) Prevnar 13 (PCV13) 2020-03-28 [facility]pleted [facility] 15:01:00 [facility] Prevnar 13 (PCV13) Prevnar 13 (PCV13) 2020-03-28 Completed [facility] 15:01:00 [facility] Prevnar 13 (PCV13) Prevnar 13 (PCV13) 2020-03-28 Completed [facility] 15:01:00 [facility] Prevnar 13 (PCV13) Prevnar 13 (PCV13) 2020-03-28 Completed [facility] 15:01:00 [facility] Prevnar 13 (PCV13) Prevnar 13 (PCV13) 2020-03-28 Completed [facility] 15:01:00 [facility] Prevnar 13 (PCV13) Prevnar 13 (PCV13) 2020-03-28 Completed [facility] 15:01:00 [facility] Prevnar 13 (PCV13) Prevnar 13 (PCV13) 2020-03-28 Completed [facility] 15:01:00 [facility] Prevnar 13 (PCV13) Prevnar 13 (PCV13) 2020-03-28 Completed [facility] 15:01:00 [facility] Prevnar 13 (PCV13) Prevnar 13 (PCV13) 2020-03-28 Completed [facility] 15:01:00 [facility] Prevnar 13 (PCV13) Prevnar 13 (PCV13) 2020-03-28 Completed [facility] 15:01:00 [facility] Prevnar 13 (PCV13) Prevnar 13 (PCV13) 2020-03-28 Completed [facility] 15:01:00 [facility] Prevnar 13 (PCV13) Prevnar 13 (PCV13) 2020-03-28 Completed [facility] 15:01:00 [facility] Prevnar 13 (PCV13) Prevnar 13 (PCV13) 2020-03-28 Completed [facility] 15:01:00 [facility] Prevnar 13 (PCV13) Prevnar 13 (PCV13) 2020-03-28 Completed [facility] 15:01:00 [facility] Prevnar 13 (PCV13) Prevnar 13 (PCV13) 2020-03-28 Completed [facility] 15:01:00 [facility] Prevnar 13 (PCV13) Prevnar 13 (PCV13) 2020-03-28 Completed [facility] 15:01:00 [facility] Prevnar 13 (PCV13) Prevnar 13 (PCV13) 2020-03-28 Completed [facility] 15:01:00 [facility] Prevnar 13 (PCV13) Prevnar 13 (PCV13) 2020-03-28 Completed [facility] 15:01:00 [facility] Influenza High Dose 2020-01-11 Completed [facility] 00:00:00 [facility] Influenza High Dose 2020-01-11 Completed [facility] 00:00:00 [facility] Influenza High Dose 2019-01-20 Completed Unive rsity of 00:00:00 [facility] Pneumococcal 2019-01-20 Completed University o f Polysaccharide, 00:00:00 [place] [facility] PPSV23 (PNEUMOVAX) Branch Influenza High Dose 2019-01-20 Completed Unive rsity of 00:00:00 [facility] Pneumococcal 2019-01-20 Completed University o f Polysaccharide, 00:00:00 [place] [facility] PPSV23 (PNEUMOVAX) Branch Pneumococcal 2016-12-[address] [facility] Polysaccharide 00:00:00 Medical Ce [facility]ter (Pneumovax) Pneumococcal 2016-12-[address] [facility] Polysaccharide 00:00:00 Medical Ce [facility]ter (Pneumovax) Pneumococcal 2016-12-[address] [facility] Polysaccharide 00:00:00 Medical Ce [facility]ter (Pneumovax) Pneumococcal 2016-12-[address] [facility] Polysaccharide 00:00:00 Medical Ce nter (Pneumovax) Pneumococcal 2016-12-[address] [facility] Polysaccharide 00:00:00 [facility] Ce [facility]ter (Pneumovax) Pneumococcal 2016-12-11 Completed [facility] Polysaccharide, 00:00:00 [place] [facility] PPSV23 (PNEUMOVAX) Branch Pneumococcal 2016-12-11 Completed [facility] Polysaccharide, 00:00:00 [place] [facility] PPSV23 (PNEUMOVAX) Branch Pneumococcal 2016-12-[address] [facility] Polysaccharide 00:00:00 Medical Ce nter (Pneumovax) Vital Signs Vital Name Observation Time Observation Value Comments Source Systolic blood 2022-01-22 16:12:00 140 mm[Hg] [facility] pressure Medicine Diastolic blood 2022-01-22 16:12:00 60 mm[Hg] [facility] pressure Medicine Heart rate 2022-01-22 16:12:00 80 /min [facility] Body temperature 2022-01-22 16:12:00 37 Tamara [facility] Body height 2022-01-22 16:12:00 157.5 cm [facility] Body weight 2022-01-22 16:12:00 63.413 kg [facility] BMI 2022-01-22 16:12:00 25.57 kg/m2 [facility] height 2022-01-16 11:30:00 63.00 [in_i] [facility] weight 2022-01-16 11:30:00 134 [lb_av] [facility] bmi 2022-01-16 11:30:00 23.73 kg/m2 [facility] blood pressure 2022-01-16 11:30:00 115 mm[Hg] [facility] systolic [facility] blood pressure 2022-01-16 11:30:00 65 mm[Hg] [facility] - diastolic [facility] height 2021-12-30 13:50:00 63.00 [in_i] [facility] weight 2021-12-30 13:50:00 135 [lb_av] [facility] temperature 2021-12-30 13:50:00 98.4 [degF] [facility] bmi 2021-12-30 13:50:00 23.91 kg/m2 [facility] oximetry 2021-12-30 13:50:00 93 % [facility] respiratory rate 2021-12-30 13:50:00 16 /min Comm on [facility] blood pressure 2021-12-30 13:50:00 136 mm[Hg] [facility] - systolic [facility] blood pressure 2021-12-30 13:50:00 60 mm[Hg] [facility] - diastolic [facility] height 2021-12-17 15:20:00 63.00 [in_i] [facility] weight 2021-12-17 15:20:00 137.6 [lb_av] [facility] bmi 2021-12-17 15:20:00 24.37 kg/m2 [facility] height 2021-11-10 16:20:00 63.00 [in_i] [facility] weight 2021-11-10 16:20:00 137.6 [lb_av] [facility] bmi 2021-11-10 16:20:00 24.37 kg/m2 [facility] height 2021-10-08 09:30:00 63.00 [in_i] [facility] weight 2021-10-08 09:30:00 137.6 [lb_av] [facility] bmi 2021-10-08 09:30:00 24.37 kg/m2 [facility] height 2021-09-24 10:20:00 63.00 [in_i] [facility] weight 2021-09-24 10:20:00 137.6 [lb_av] [facility] temperature 2021-09-24 10:20:00 97.4 [degF] [facility] bmi 2021-09-24 10:20:00 24.37 kg/m2 [facility] oximetry 2021-09-24 10:20:00 97 % [facility] respiratory rate 2021-09-24 10:20:00 17 /min Comm on [facility] blood pressure 2021-09-24 10:20:00 132 mm[Hg] [facility] systolic [facility] blood pressure 2021-09-24 10:20:00 70 mm[Hg] [facility] diastolic [facility] height 2021-08-20 13:50:00 63.00 [in_i] [facility] weight 2021-08-20 13:50:00 143.3 [lb_av] [facility] temperature 2021-08-20 13:50:00 98.1 [degF] [facility] bmi 2021-08-20 13:50:00 25.38 kg/m2 [facility] oximetry 2021-08-20 13:50:00 97 % [facility] respiratory rate 2021-08-20 13:50:00 17 /min Comm on [facility] blood pressure 2021-08-20 13:50:00 138 mm[Hg] Common [facility] - systolic [facility] blood pressure 2021-08-20 13:50:00 61 mm[Hg] Common [facility] - diastolic [facility] height 2021-08-20 14:00:00 63.00 [in_i] [facility] weight 2021-08-20 14:00:00 143.3 [lb_av] Common [facility] temperature 2021-08-20 14:00:00 98.1 [degF] [facility] bmi 2021-08-20 14:00:00 25.38 kg/m2 [facility] oximetry 2021-08-20 14:00:00 97 % [facility] respiratory rate 2021-08-20 14:00:00 17 /min Comm on [facility] blood pressure 2021-08-20 14:00:00 138 mm[Hg] Common [facility] - systolic [facility] blood pressure 2021-08-20 14:00:00 61 mm[Hg] Common [facility] - diastolic [facility] Systolic blood 2021-08-04 05:00:00 140 mm[Hg] [facility] of [facility] Diastolic blood 2021-08-04 05:00:00 47 mm[Hg] Unive rsity of pressure [facility] Heart rate 2021-08-04 05:00:00 72 /min [facility] Respiratory rate 2021-08-04 05:00:00 15 /min [facility] Oxygen saturation in 2021-08-04 05:00:00 97 /min [facility] Arterial blood by [facility] Pulse oximetry Branch Body temperature 2021-08-04 03:12:00 37 Tamara [facility] Body height 2021-08-04 03:12:00 157.5 cm [facility] Body weight 2021-08-04 03:12:00 64.411 kg [facility] BMI 2021-08-04 03:12:00 25.97 kg/m2 [facility] height 2021-07-30 08:40:00 63.00 [in_i] [facility] weight 2021-07-30 08:40:00 145 [lb_av] [facility] temperature 2021-07-30 08:40:00 97.5 [degF] [facility] bmi 2021-07-30 08:40:00 25.68 kg/m2 [facility] blood pressure 2021-07-30 08:40:00 132 mm[Hg] [facility] - systolic [facility] blood pressure 2021-07-30 08:40:00 76 mm[Hg] [facility] - diastolic [facility] height 2021-04-11 11:00:00 63.00 [in_i] [facility] weight 2021-04-11 11:00:00 148 [lb_av] [facility] temperature 2021-04-11 11:00:00 98 [degF] [facility] bmi 2021-04-11 11:00:00 26.21 kg/m2 [facility] height 2021-03-14 10:00:00 63.00 [in_i] [facility] weight 2021-03-14 10:00:00 148.1 [lb_av] Common [facility] temperature 2021-03-14 10:00:00 97.3 [degF] [facility] bmi 2021-03-14 10:00:00 26.23 kg/m2 [facility] oximetry 2021-03-14 10:00:00 97 % [facility] respiratory rate 2021-03-14 10:00:00 16 /min Comm on [facility] blood pressure 2021-03-14 10:00:00 135 mm[Hg] Common [facility] systolic [facility] blood pressure 2021-03-14 10:00:00 62 mm[Hg] [facility] diastolic [facility] Systolic blood 2021-03-11 22:37:00 113 mm[Hg] Univer sity of pressure [facility] Diastolic blood 2021-03-11 22:37:00 47 mm[Hg] Unive rsity of [facility] Heart rate 2021-03-11 22:37:00 82 /min [facility] Body height 2021-03-11 22:37:00 160 cm [facility] Body weight 2021-03-11 22:37:00 65.772 kg [facility] BMI 2021-03-11 22:37:00 25.69 kg/m2 [facility] height 2020-12-11 14:40:00 63.00 [in_i] [facility] weight 2020-12-11 14:40:00 141.2 [lb_av] Common [facility] temperature 2020-12-11 14:40:00 97.4 [degF] [facility] bmi 2020-12-11 14:40:00 25.01 kg/m2 [facility] oximetry 2020-12-11 14:40:00 96 % [facility] respiratory rate 2020-12-11 14:40:00 16 /min Comm on [facility] blood pressure 2020-12-11 14:40:00 132 mm[Hg] [facility] systolic [facility] blood pressure 2020-12-11 14:40:00 61 mm[Hg] [facility] - diastolic [facility] Weight 2016-10-01 15:38:00 [facility] BMI Calculated 2016-10-01 15:38:00 [facility] Height 2016-10-01 15:38:00 160.02 cm [facility] Respitory Rate 2016-10-01 15:38:00 [facility] Heart Rate 2016-10-01 15:38:00 [facility] Systolic (mm Hg) 2016-10-01 15:38:00 [facility] Diastolic (mm Hg) 2016-10-01 15:38:00 [facility] Height 2016-07-02 15:24:00 160.02 cm [facility] Respitory Rate 2016-07-02 15:24:00 [facility] Heart Rate 2016-07-02 15:24:00 [facility] BMI Calculated 2016-07-02 15:24:00 [facility] Weight 2016-07-02 15:24:00 [facility] Systolic (mm Hg) 2016-07-02 15:24:00 [facility] Diastolic (mm Hg) 2016-07-02 15:24:00 [facility] Procedures Procedure Date / Time Performing Clinician Source Performed AMB REF TO HEMATOLOGY 2022-01-22 12:00:06 [facility] CBC W/AUTO DIFF WITH 2022-01-22 12:00:05 [facility] IRON+TIBC+%SAT 2022-01-22 12:00:05 [facility] FERRITIN 2022-01-22 12:00:05 [facility] VITAMIN B12 \\T\\ FOLIC 2022-01-22 12:00:05 [facility] POCT-GLUCOSE METER 2022-01-13 09:58:00 [facility] POCT-GLUCOSE METER 2022-01-13 06:34:00 [facility] POCT-GLUCOSE METER 2022-01-12 21:20:00 [facility] POCT-GLUCOSE METER 2022-01-12 15:24:00 [facility] POCT-GLUCOSE METER 2022-01-12 11:28:00 [facility] POCT-GLUCOSE METER 2022-01-12 06:34:00 [facility] CT ABDOMEN PELVIS WO 2021-08-04 03:59:53 [facility] LIPASE 2021-08-04 03:39:00 Morales Fitch [facility] COMP. METABOLIC PANEL 2021-08-04 03:39:00 [id number] CBC WITH DIFF 2021-08-04 03:39:00 [facility] 2021-08-04 03:39:00 Morales Fitch [facility] NOTICE OF PRIVACY 2021-08-04 02:24:14 [facility] Unassigned, [facility] Name [facility] CONSENT/REFUSAL FOR 2021-08-04 02:22:02 [facility] Colonoscopy [facility] Endoscopy of GI tract [facility] Plan of Care Planned Activity Planned Date Details Comments Source Future Scheduled 2022-01-22 Screening for [facility] [employer]ge Test 20:43:40 malignant neoplasm of Medici ne of colon (procedure) [code = 862902186] Future Scheduled 2022-01-22 Pneumococcal 65+ (1 [employer] Test 20:43:40 - PCV) [code = of Medicine Pneumococcal 65+ (1 - PCV)] Future Scheduled 2022-01-22 BMI FOLLOW UP PLAN [employer] Test 20:43:40 [code = BMI FOLLOW of Medici ne UP PLAN] Future Scheduled 2022-01-22 Hepatitis C [facility] Seb ege Test 20:43:40 screening of Medicine (procedure) [code = 722895377] Future Scheduled 2022-01-22 Screening for [facility] Test 20:43:40 malignant neoplasm of Medici ne of lung (procedure) [code = 885970000] Future Scheduled 2022-01-22 ZOSTER VACCINE (1 of [place] [employer] Test 20:43:40 2) [code = ZOSTER of Medicin e VACCINE (1 of 2)] Future Scheduled 2022-01-22 FALL SCREEN [code = [employer] Test 20:43:40 FALL SCREEN] of Medicine Future Scheduled 2022-01-22 Screening for [facility] Col [facility]ge Test 20:43:40 osteoporosis of Medicine (procedure) [code = 046605827] Future Scheduled 2022-01-22 Screening for [facility] [employer] [facility] Test 20:43:40 malignant neoplasm of Medici ne of breast (procedure) [code = 453357526] Future Scheduled 2022-01-22 MEDICARE AWV [facility] [employer] Test 20:43:40 (Initial) [code = of Medicin e MEDICARE AWV (Initial)] Future Scheduled 2022-01-22 COVID-19 Vaccine (4 [employer] Test 20:43:40 - Booster for of Medicine Moderna series) [code = COVID-19 Vaccine (4 - Booster for Moderna series)] Future Scheduled 2022-01-22 TETANUS SHOT (ADULT) [employer] Test 20:43:40 [code = TETANUS SHOT of Medi cine (ADULT)] Future Scheduled 2022-01-22 FLU VACCINE > 6 [facility] C [employer]lege Test 20:43:40 MONTHS [code = FLU of Medici ne VACCINE > 6 MONTHS] Future Scheduled 2022-01-22 COLONOSCOPY W MAC GI 1 Occurrences [employer] Test 12:00:06 DEPT [code = starting of Medicine [id number]] 01/22/2022 until 07/23/2022 Future Scheduled 2022-01-22 CBC W/AUTO DIFF WITH Ordered: [place] [employer] Test 12:00:05 PLATELETS [code = 01/22/2022 of Medicin e 92247-8] Future Scheduled 2022-01-22 IRON+TIBC+%SAT [code Ordered: [facility] College Test 12:00:05 = NOCPT] 01/22/2022 of Medicine Future Scheduled 2022-01-22 FERRITIN [code = Ordered: [facility] College Test 12:00:05 66552-8] 01/22/2022 of Medicine Future Scheduled 2022-01-22 VITAMIN B12 & FOLIC Ordered: [employer] Test 12:00:05 ACID [code = NOCPT] 01/22/2022 of Medic ine Future Scheduled [address] [facility] Test 00:00:00 (#1) [code = Medical Center INFLUENZA VACCINE (#1)] Future Scheduled [address] [facility] Test 00:00:00 (#1) [code = Medical Center INFLUENZA VACCINE (#1)] Future Scheduled [address] [facility] Test 00:00:00 (#1) [code = Medical Center INFLUENZA VACCINE (#1)] Future Scheduled [address] [facility] Test 00:00:00 (#1) [code = Medical Center INFLUENZA VACCINE (#1)] Future Scheduled 2021-03-29 FALLS RISK SCREENING [facility] Test 00:00:00 [code = FALLS RISK Medical C enter SCREENING] Future Scheduled 2021-03-29 FALLS RISK SCREENING [facility] Test 00:00:00 [code = FALLS RISK Medical C enter SCREENING] Future Scheduled 2021-03-29 FALLS RISK SCREENING [facility] Test 00:00:00 [code = FALLS RISK Medical C enter SCREENING] Future Scheduled 2021-03-29 FALLS RISK SCREENING [facility] Test 00:00:00 [code = FALLS RISK Medical C enter SCREENING] Future Scheduled 2021-03-17 COVID-19 VACCINE ([address] [facility] Test 00:00:00 - Booster for Medical Center Moderna series) [code = COVID-19 VACCINE (4 - Booster for Moderna series)] Future Scheduled 2021-03-17 COVID-19 VACCINE ([address] [facility] Test 00:00:00 - Booster for Medical Center Moderna series) [code = COVID-19 VACCINE (4 - Booster for Moderna series)] Future Scheduled 2021-03-17 COVID-19 VACCINE ([address] [facility] Test 00:00:00 - Booster for Medical Center Moderna series) [code = COVID-19 VACCINE (4 - Booster for Moderna series)] Future Scheduled 2021-03-17 COVID-19 VACCINE ([address] [facility] Test 00:00:00 - Booster for Medical Center Moderna series) [code = COVID-19 VACCINE (4 - Booster for Moderna series)] Future Scheduled 2020-01-21 PNEUMOCOCCAL 65+ YRS [facility] Test 00:00:00 (2 - PCV) [code = Medical Ce nter PNEUMOCOCCAL 65+ YRS (2 - PCV)] Future Scheduled 2020-01-21 PNEUMOCOCCAL 65+ YRS [facility] Test 00:00:00 (2 - PCV) [code = Medical Ce nter PNEUMOCOCCAL 65+ YRS (2 - PCV)] Future Scheduled 2020-01-21 PNEUMOCOCCAL 65+ YRS [facility] Test 00:00:00 (2 - PCV) [code = Medical Ce nter PNEUMOCOCCAL 65+ YRS (2 - PCV)] Future Scheduled 2020-01-21 PNEUMOCOCCAL 65+ YRS [facility] Test 00:00:00 (2 - PCV) [code = Medical Ce nter PNEUMOCOCCAL 65+ YRS (2 - PCV)] Future Scheduled 2017-12-[address] [facility] Test 00:[facility]:00 malignant neoplasm Medical C enter of colon (procedure) [code = 786871450] Future Scheduled 2017-12-[address] [facility] Test 00:00:00 malignant neoplasm Medical C enter of colon (procedure) [code = 040463248] Future Scheduled 2017-12-[address] [facility] Test 00:00:00 malignant neoplasm Medical C enter of colon (procedure) [code = 005037022] Future Scheduled 2017-12-[address] [facility] Test 00:00:00 malignant neoplasm Medical C enter of colon (procedure) [code = 042151891] Future Scheduled 2017-12-[address] [facility] Test 00:00:00 malignant neoplasm Medical C enter of colon (procedure) [code = 288979959] Future Scheduled 2017-12-[address] [facility] Test 00:00:00 malignant neoplasm Medical C enter of colon (procedure) [code = 501228366] Future Scheduled 2017-12-[address] [facility] Test 00:00:00 malignant neoplasm Medical C enter of colon (procedure) [code = 348844581] Future Scheduled 2017-12-[address] [facility] Test 00:00:00 malignant neoplasm Medical C enter of colon (procedure) [code = 873541371] Future Scheduled 2017-06-[address] [facility] Test 00:[facility]00 [facility] (procedure) [code = 27650438] Future Scheduled 2017-06-[address] [facility] Test 00:[facility]:00 measurement [facility] (procedure) [code = 74102551] Future Scheduled 2017-06-[address] [facility] 00[facility]00 [facility] (procedure) [code = 26008241] Future Scheduled 2017-06-[address] [facility] Test 00:[facility]:00 measurement [facility] Center (procedure) [code = 63446829] Future Scheduled 1996 SHINGLES VACCINES ([address] [facility] Test 00:00:00 of 2) [code = Medical Center SHINGLES VACCINES (1 of 2)] Future Scheduled 1996 SHINGLES VACCINES ([address] [facility] Test 00:00:00 of 2) [code = Medical Center SHINGLES VACCINES (1 of 2)] Future Scheduled 1996 SHINGLES VACCINES ([address] [facility] Test 00:00:00 of 2) [code = Medical Center SHINGLES VACCINES (1 of 2)] Future Scheduled 1996 SHINGLES VACCINES ([address] [facility] Test 00:00:00 of 2) [code = Medical Center SHINGLES VACCINES (1 of 2)] Future Scheduled 1965 DTAP/TDAP/TD [facility] Test 00:[facility]:00 VACCINES (1 - Tdap) Medical Center [code = DTAP/TDAP/TD VACCINES (1 - Tdap)] Future Scheduled 1965 DTAP/TDAP/TD [facility] Test 00:00:00 VACCINES (1 - Tdap) Medical Center [code = DTAP/TDAP/TD VACCINES (1 - Tdap)] Future Scheduled 1965 DTAP/TDAP/TD [facility] Test 00:[facility]:00 VACCINES (1 - Tdap) Medical Center [code = DTAP/TDAP/TD VACCINES (1 - Tdap)] Future Scheduled 1965 DTAP/TDAP/TD [facility] Test 00:00:00 VACCINES (1 - Tdap) Medical Center [code = DTAP/TDAP/TD VACCINES (1 - Tdap)] Future Scheduled [address] [facility] Test 00:00:00 SCREENING [code = Medical nt HEPATITIS C SCREENING] Future Scheduled [address] [facility] Test 00:00:00 SCREENING [code = Medical Ce nter HEPATITIS C SCREENING] Future Scheduled [address] [facility] 00:[facility]00 SCREENING [code = Medical Ce nter HEPATITIS C SCREENING] Future Scheduled [address] [facility] 00:00:00 SCREENING [code = Medical Ce nter HEPATITIS C SCREENING] Future Scheduled [address] EXAM [facility] 00:00:00 [code = DIABETIC EYE Medical Center EXAM] Future Scheduled [address] [facility] examination Medical Center (regime/therapy) [code = 691107766] Future Scheduled 1956 Urine screening for [facility] 00:00:00 protein (procedure) Medical Center [code = 593523861] Future Scheduled [address] EXAM [facility] 00:00:00 [code = DIABETIC EYE Medical Center EXAM] Future Scheduled [address] [facility] 00[facility]00 examination Medical Center (regime/therapy) [code = 766853584] Future Scheduled 1956 Urine screening for [facility] 00:00:00 protein (procedure) Medical Center [code = 239092761] Future Scheduled [address]YE EXAM [facility] 00:00:00 [code = DIABETIC EYE Medical Center EXAM] Future Scheduled [address] [facility] 00:[facility]00 examination Medical Center (regime/therapy) [code = 056153314] Future Scheduled 1956 Urine screening for [facility] 00:00:00 protein (procedure) Medical Center [code = 428366827] Future Scheduled [address]YE EXAM [facility] 00:00:00 [code = DIABETIC EYE Medical Center EXAM] Future Scheduled [address] [facility] 00:[facility]:00 examination Medical Center (regime/therapy) [code = 071125034] Future Scheduled 1956 Urine screening [facility] 00:00:00 protein (procedure) Medical Center [code = 285203955] Future Scheduled [address] [facility] 00:00:00 (combo) [code = CT Medical C enter Colonography (combo)] Future Scheduled [address] [facility] 00:00:00 malignant neoplasm Medical C enter of colon (procedure) [code = 151610167] Future Scheduled 1946 DXA SCAN [code = DXA [facility] 00:00:00 SCAN] [facility] Future Scheduled [address] [facility] 00:00:00 malignant neoplasm Medical C enter of colon (procedure) [code = 866968306] Future Scheduled 1946 Sigmoidoscopy [code [facility] 00:00:00 = Sigmoidoscopy] [facility] Future Scheduled [address] [facility] 00:00:00 (combo) [code = CT Medical C enter Colonography (combo)] Future Scheduled [address] [facility] 00:00:00 malignant neoplasm Medical C enter of colon (procedure) [code = 482066205] Future Scheduled 1946 DXA SCAN [code = DXA [facility] 00:00:00 SCAN] [facility] Future Scheduled [address] [facility] 00:00:00 malignant neoplasm Medical C enter of colon (procedure) [code = 241814008] Future Scheduled 1946 Sigmoidoscopy [code [facility] 00:00:00 = Sigmoidoscopy] [facility] Future Scheduled [address] [facility] 00:00:00 (combo) [code = CT Medical C enter Colonography (combo)] Future Scheduled [address] [facility] 00:00:00 malignant neoplasm Medical C enter of colon (procedure) [code = 049692688] Future Scheduled 1946 DXA SCAN [code = DXA [facility] 00:00:00 SCAN] [facility] Future Scheduled [address] [facility] 00:00:00 malignant neoplasm Medical C enter of colon (procedure) [code = 473715761] Future Scheduled 1946 Sigmoidoscopy [code [facility] 00:00:00 = Sigmoidoscopy] Medical [facility] ter Future Scheduled [address] [facility] 00:00:00 (combo) [code = CT Medical C enter Colonography (combo)] Future Scheduled [address] [facility] 00:00:00 malignant neoplasm Medical C enter of colon (procedure) [code = 697730202] Future Scheduled 1946 DXA SCAN [code = DXA [facility] 00:00:00 SCAN] [facility] Future Scheduled [address] [facility] 00:00:00 malignant neoplasm Medical C enter of colon (procedure) [code = 204540182] Future Scheduled 1946 Sigmoidoscopy [code [facility] 00:00:00 = Sigmoidoscopy] [facility] Future Appointment 2022-02-16 Pearl Brooks, [address] [facility] 09:30:00 [place]; Harsha 8B, [place] [address] Future Appointment 2022-02-16 Pearl Brooks, [address] [facility] 09:30:00 [place]; Harsha 8B, [place] [address] Procedure 2022-02-[address] [facility] 09:30:00 [facility] Encounters Start End Encounter Admission Attending Care Care Encounter Source Date/Time Date/Time Type Type Clinicians Facility Department ID 2022-01-22 [facility]patient [facility] [id number] 12:55:06 PEARL 2022-01-16 [facility] [id number] Common 13:25:00 [facility] 2022-01-16 [facility] [id number] 13:08:[address] [place] [address] 2022-01-16 [facility] [id number] SLE 13:08:00 5 2021-10-06 Outpatient RondonNIKKI hernandez [facility] [id number] Common 16:18:00 [facility] 2021-08-18 Outpatient RondonNIKKI hernandez [facility] [id number] Common 09:23:08 [facility] 2021-06-09 Outpatient Rondon, STLMLC STLMLC [id number] Common 10:56:01 Isra [facility] 2021-05-28 Outpatient Rondon, STLMLC STLMLC [id number] Common 08:20:00 Isra [facility] 2021-05-22 Outpatient Rondon, STLMLC STLMLC [id number] Common 15:37:00 Isra [facility] 2021-04-23 Outpatient Rondon, STLMLC STLMLC [id number] Common 14:32:51 Isra [facility] 2021-04-23 Outpatient Rondon, STLMLC STLMLC [id number] Common 14:27:21 Isra [facility] 2021-04-23 Outpatient Rondon, STLMLC STLMLC [id number] Common 14:26:14 Isra 90977 [facility] 2021-04-23 Outpatient Rondon, STLMLC STLMLC [id number] Common 14:26:02 Isra 51480 [facility] 2021-04-23 Outpatient Rondon, STLMLC STLMLC [id number] Common 14:25:31 Isra 01253 [facility] 2021-04-23 Outpatient Rondon, STLMLC STLMLC [id number] Common 14:24:42 Isra 97053 [facility] 2021-04-23 Outpatient Rondon, STLMLC STLMLC [id number] Common 14:24:14 Isra 39066 [facility] 2021-04-23 Outpatient Rondon, STLMLC STLMLC [id number] Common 14:22:04 Isra 86205 [facility] 2021-04-23 Outpatient STLMLC STLMLC [id number] Common 14:04:07 [facility] 2021-04-23 Outpatient STLMLC STLMLC [id number] Common 13:57:01 [facility] 2021-04-23 Outpatient STLMLC STLMLC [id number] Common 13:54:56 79598 [facility] 2021-04-23 Outpatient STLMLC STLMLC [id number] Common 13:49:08 96016 [facility] 2021-04-23 Outpatient STLMLC STLMLC [id number] Common 12:36:47 86506 [facility] 2021-04-23 Outpatient STLMLC STLMLC [id number] Common 12:20:24 27812 [facility] 2022-03-10 2022-03-10 Outpatient Belia NAZARIO [facility] [id number] [facility] 11:00:00 11:00:00 LIDIA farley [facility] 2022-01-22 2022-01-22 Office TAMAR Brooks 1.2.840.114 [id number] [facility] 11:00:00 14:32:59 Visit Eparl AMBULATOR 350.1.13.21 College Y 0.2.7.2.686 of [id number] Medi fabián 325 e 2022-01-20 2022-01-20 (TEL) STLMLC STLMLC [id number] Co mmon 00:00:00 00:00:00 [facility] 2022-01-19 2022-01-19 (TEL) STLMLC STLMLC [id number] Co mmon 00:00:00 00:00:00 [facility] 2022-01-16 2022-01-16 [facility] [id number] 13:08:00 13:08:[address] 2022-01-16 2022-01-16 (EST. STLMLC STLMLC [id number] Co mmon 00:00:00 00:00:00 VIDEO) EST Spi rit [facility] - [facility] VIDEO [facility] 2022-01-14 2022-01-14 (WEB) STLMLC STLMLC [id number] Co mmon 00:00:00 00:00:00 [facility] 2022-01-06 2022-01-06 (TEL) STLMLC STLMLC [id number] Co mmon 00:00:00 00:00:00 [facility] 2021-12-30 2021-12-30 OFFICE STLMLC STLMLC [id number] Co mmon 00:00:00 00:00:00 VISIT Spirit ESTAB PT - [facility] LEVEL 4 [facility] 2021-12-17 2021-12-17 OFFICE STLMLC STLMLC [id number] Co mmon 00:00:00 00:00:00 VISIT EST Spir it PT LEVEL 3 [facility] 2021-12-17 2021-12-17 (TEL) STLMLC STLMLC [id number] Co mmon 00:00:00 00:00:00 [facility] 2021-12-12 2021-12-12 (TEL) STLMLC STLMLC [id number] Co mmon 00:00:00 00:00:00 [facility] 2021 2021 Outpatient Iyanoye_S DMG DMG [id number] [facility] 00:00:00 00:00:00 0901 [facility]ica l Group 2021 2021 (TEL) STLMLC STLMLC [id number] Co mmon 00:00:00 00:00:00 [facility] 2021-11-25 2021-11-25 (TEL) STLMLC STLMLC [id number] Co mmon 00:00:00 00:00:00 [facility] 2021-11-18 2021-11-18 (TEL) STLMLC STLMLC [id number] Co mmon 00:00:00 00:00:00 [facility] 2021-11-12 2021-11-12 (TEL) STLMLC STLMLC [id number] Co mmon 00:00:00 00:00:00 [facility] 2021-11-10 2021-11-10 OFFICE STLMLC STLMLC [id number] Co mmon 00:00:00 00:00:00 VISIT EST Spir it PT LEVEL 3 - [facility] 2021-11-10 2021-11-10 (TEL) STLMLC STLMLC [id number] Co mmon 00:00:00 00:00:00 [facility] 2021-10-28 2021-10-28 (TEL) STLMLC STLMLC [id number] Co mmon 00:00:00 00:00:00 [facility] 2021-10-10 2021-10-10 [place] DM [id number] [facility] 03:13:00 03:13:00 0715 Medica l Group 2021-10-09 2021-10-09 (WEB) STLMLC STLMLC [id number] Co mmon 00:00:00 00:00:00 [facility] 2021-10-08 2021-10-08 OL DIG E/M STLMLC STLMLC [id number] Common 00:00:00 00:00:00 [facility] 11-20 Spir it MIN [facility] 2021-10-08 2021-10-08 (TEL) STLMLC STLMLC [id number] Co mmon 00:00:00 00:00:00 [facility] 2021-10-08 2021-10-08 (WEB) STLMLC STLMLC [id number] Co mmon 00:00:00 00:00:00 [facility] 2021-10-07 2021-10-07 (TEL) STLMLC STLMLC [id number] Co mmon 00:00:00 00:00:00 [facility] 2021-10-02 2021-10-02 (WEB) STLMLC STLMLC [id number] Co mmon 00:00:00 00:00:00 [facility] 2021-10-02 2021-10-02 (WEB) STLMLC STLMLC [id number] Co mmon 00:00:00 00:00:00 [facility] 2021-09-30 2021-09-30 (WEB) STLMLC STLMLC [id number] Co mmon 00:00:00 00:00:00 [facility] 2021-09-26 2021-09-26 (WEB) STLMLC STLMLC [id number] Co mmon 00:00:00 00:00:00 [facility] 2021-09-24 2021-09-24 OFFICE STLMLC STLMLC [id number] Co mmon 00:00:00 00:00:00 VISIT [facility] ESTAB PT - CHI LEVEL 4 [facility] 2021-09-17 2021-09-17 (TEL) STLMLC STLMLC [id number] Co mmon 00:00:00 00:00:00 [facility] 2021-08-27 2021-08-27 (TEL) STLMLC STLMLC [id number] Co mmon 00:00:00 00:00:00 [facility] 2021-08-21 2021-08-21 (TEL) STLMLC STLMLC [id number] Co mmon 00:00:00 00:00:00 [facility] 2021-08-20 2021-08-20 OFFICE STLMLC STLMLC [id number] Co mmon 00:00:00 00:00:00 VISIT [facility] PT - CHI LEVEL 4 [facility] 2021-08-20 2021-08-20 SUB ANNUAL STLMLC STLMLC [id number] Common 00:00:00 00:00:00 MCR [facility] WELLNESS - CHI VISIT [facility] 2021-08-11 2021-08-11 (TEL) STLMLC STLMLC [id number] Co mmon 00:00:00 00:00:00 [facility] 2021-08-03 2021-08-04 Emergency [facility] [id number] Univers 21:58:00 01:05:00 MORALES to [facility] 2021-08-03 2021-08-04 Emergency [facility] 1.2.840.114 [id number] Univers 21:58:00 01:05:00 [facility] 350.1.13.10 yousuf [facility] 4.2.7.2.686 [facility] [id number] [address] 2021-07-30 2021-07-30 (TEL) STLMLC STLMLC [id number] Co mmon 00:00:00 00:00:00 [facility] 2021-07-30 2021-07-30 OFFICE STLMLC STLMLC [id number] Co mmon 00:00:00 00:00:00 VISIT EST Spir it PT LEVEL 3 - [facility] 2021-07-30 2021-07-30 (TEL) STLMLC STLMLC [id number] Co mmon 00:00:00 00:00:00 [facility] 2021-05-27 2021-05-27 (TEL) STLMLC STLMLC [id number] Co mmon 00:00:00 00:00:00 [facility] 2021-05-09 2021-05-09 (TEL) STLMLC STLMLC [id number] Co mmon 00:00:00 00:00:00 [facility] 2021-05-08 2021-05-08 (TEL) STLMLC STLMLC [id number] Co mmon 00:00:00 00:00:00 [facility] 2021-04-23 2021-04-23 (TEL) STLMLC STLMLC [id number] Co mmon 00:00:00 00:00:00 [facility] 2021-04-11 2021-04-11 OFFICE STLMLC STLMLC [id number] Co mmon 00:00:00 00:00:00 VISIT EST Spir it PT LEVEL 3 - [facility] 2021-04-11 2021-04-11 (TEL) STLMLC STLMLC [id number] Co mmon 00:00:00 00:00:00 [facility] 2021-04-09 2021-04-09 (TEL) STLMLC STLMLC [id number] Co mmon 00:00:00 00:00:00 [facility] 2021-04-07 2021-04-07 (TEL) STLMLC STLMLC [id number] Co mmon 00:00:00 00:00:00 [facility] 2021-03-14 2021-03-14 OFFICE STLMLC STLMLC [id number] Co mmon 00:00:00 00:00:00 VISIT Spirit ESTAB PT - CHI LEVEL 4 [facility] 2021-03-14 2021-03-14 (TEL) STLMLC STLMLC [id number] Co mmon 00:00:00 00:00:00 Spirit - [facility]I [facility] 2021-03-11 2021-03-11 [address] 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 [facility] 1.2.8 40.114 [id number] Univers 07:57:26 08:12:26 Visit Chance Paul 350.1.13.10 ity [facility] [place] [id number] [address] 2021-03-08 2021-03-08 Outpatient R ROSSI [facility] [id number] Univers 08:00:00 08:00:00 CHANCE to [facility] 2021-03-08 2021-03-08 Outpatient R ROSSI [facility] [id number] Univers 08:00:00 08:00:00 CHANCE to [facility] 2021-03-08 2021-03-08 Orders Doctor GUZMAN 1.2.840.114 [id number] Univers 00:00:00 00:00:00 Only Unassigned, JULIUS 350.1.13.10 [facility] 4.2.7.2.686 Manuel as [id number] [facility] [address] 2021-02-28 2021-02-28 Outpatient R [facility] [id number] Univers 07:55:14 23:59:00 QIAAMELIA ity o f [facility] 2021-02-28 2021-02-28 [facility] 1.2.840.114 [id number] Univers 07:55:14 23:59:00 Encounter Librado [place] 350.1.13.10 ity of [place] [facility] [place] [id number] [address] 2021-02-28 2021-02-28 Outpatient R [facility] [id number] Univers 07:55:14 23:59:00 LIBRADO ity o [facility] 2021-02-28 2021-02-28 [facility] 1.2.840.114 [id number] Univers 07:54:41 07:54:41 Encounter Librado [place] 350.1.13.10 ity of [place] [facility] [place] [id number] [facility] 850 Call 2021-02-28 2021-02-28 [facility] 1.2.840.114 [id number] Univers 07:54:07 07:54:07 Encounter Librado [place] 350.1.13.10 ity of [place] [facility] [place] [id number] [address] 2021-02-07 2021-02-07 Outpatient R [facility] [id number] Univers 09:20:00 09:31:58 QIANGJUN ity o f [facility] 2021-02-07 2021-02-07 Outpatient R [facility] [id number] Univers 09:20:00 09:31:58 QIANGJUN ity o f [facility] 2021-02-07 2021-02-07 Outpatient R [facility] [id number] Univers 09:20:00 09:31:58 QIANGJUN ity o f [facility] 2021-02-07 2021-02-07 Outpatient R [facility] [id number] Univers 09:20:00 09:31:58 LIBRADO to o f [facility] 2021-02-07 2021-02-07 Office [facility] 1.2.840.114 [id number] Univers 09:01:02 09:31:58 Visit Geovanydian ANGELA 350.1.13.10 ity of [place] PROFESS[place] [id number] Sd dical NAL 059 [facility] 2021-02-01 2021-02-01 Outpatient DMG DMG [id number] [facility] 11:01:00 11:01:00 1106 Medica l Group 2021-01-16 2021-01-16 Outpatient R [facility] [id number] Univers 14:30:00 14:30:00 ity of [facility] 2020-12-12 2020-12-12 Orders Doctor THOMAS 1.2.840.114 [id number] Univers 00:00:00 00:00:00 Only Unassigned, JULIUS 350.1.13.10 ity of [place] [facility] 4.2.7.2.686 Manuel as [id number] [address] 2020-12-11 2020-12-11 OFFICE [facility] [id number] Co mmon 00:00:00 00:00:00 VISIT Spirit ESTAB PT - CHI LEVEL 4 [facility] 2020-12-06 2020-12-06 Patient [facility] 1.2.840.114 [id number] Univers 00:00:00 00:00:00 Secure Msg W[facility]iful [facility] 350.1.13.10 ity of [place] 4.2.7.2.686 Manuel as Luis Enrique?Blea [id number] Sd dical kney 044 Call Medical Office Building 2020-12-06 2020-12-06 Telephone Eleni [facility] 1.2.840.114 [id number] Univers 00:00:00 00:00:00 [facility] 350.1.13.10 ity of [place] 4.2.7.2.686 Manuel as Luis Enrique?Blea [id number] Sd nat rivera 044 Call Medical Office [facility] 2020-12-04 2020-12-04 Case [facility] 1.2.840.114 [id number] Univers 00:00:00 00:00:00 Management Wonjosé luisful [facility] 350.1.13.10 ity of [place] 4.2.7.2.686 Manuel as Luis Enrique?Blea [id number] [facility] Medical Office [facility] 2020-11-28 2020-11-28 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 Lab, [facility] 1.2.840.1 14 [id number] Univers 16:02:35 16:17:35 Visit Chela [facility] 350.1.13.1 0 ity of [place] 4.2.7.2.686 Manuel as Luis Enrique?Blea [id number] Sd nat rivera [facility] 2020-11-28 2020-11-28 Outpatient R ELENI [facility] [id number] Univers 15:15:00 16:02:20 WONDIFUL ity o martine [facility] 2020-11-28 2020-11-28 Outpatient Belia KNOWLES [facility] [id number] Univers 15:15:00 16:02:20 WONDIFUL ity o martine [facility] 2020-11-28 2020-11-28 Office [facility] 1.2.840.114 [id number] Univers 14:51:53 16:02:20 Visit Brittful [facility] 350.1.13.10 ity of [place] 4.2.7.2.686 Manuel as Luis Enrique?Blea [id number] Sd nat [address] Office [facility] 2020-11-28 2020-11-28 Outpatient Belia KNOWLES [facility] [id number] Univers 15:15:00 15:15:00 WONDIFUL ity o f [facility] 2020-11-15 2020-11-15 Outpatient Belia CHURCHILL [facility] [id number] Univers 14:00:00 14:00:00 ERNESTO to of [facility] 2020-11-15 2020-11-15 Outpatient R ZHAO [facility] [id number] Univers 14:00:00 13:37:47 ERNESTO lorraine [facility] 2020-11-15 2020-11-15 Outpatient R ZHAO [facility] [id number] Univers 14:00:00 13:37:47 ERNESTO [facility] 2020-10-14 2020-10-14 Damion Redding [facility] 1.2.840.114 [id number] Univers 00:00:00 00:00:00 [facility] 350.1.13.10 it y of [place] 4.2.7.2.686 Manuel as Professio [id number] [address] One 2020-10-08 2020-10-08 Outpatient R KAVON [facility] [id number] Univers 14:20:00 15:23:11 JEN [facility] 2020-10-08 2020-10-08 Outpatient R KAVON [facility] [id number] Univers 14:20:00 15:23:11 [facility] 2020-10-08 2020-10-08 Outpatient R KAVON [facility] [id number] Univers 14:20:00 14:20:00 [facility] 2020-10-08 2020-10-08 Urgent Provider, [facility] 1.2.840.114 [id number] Univers 13:57:06 14:17:06 Care Jen Talbert 350.1.13.10 ity of [place] 4.2.7.2.686 Manuel as Professio [id number] [address] Office [facility] One 2020-09-12 2020-09-12 Orders Doctor THOMAS 1.2.840.114 [id number] Univers 00:00:00 00:00:00 Only Unassigned, JULIUS 350.1.13.10 ity of [place] [facility] 4.2.7.2.686 Manuel as [id number] [address] 2020-09-04 2020-09-04 Telephone Eleni [facility] 1.2.840.114 [id number] Univers 00:00:00 00:00:00 Wonjuanita [facility] 350.1.13.10 ity of [place] 4.2.7.2.686 Manuel as Professio [id number] Sd dical nal [address] Office Building One 2020-08-05 2020-08-05 Outpatient R JOSE ALBERTO, [facility] [id number] Univers 09:40:00 09:40:00 LIBRADO to o [facility] 2020-08-05 2020-08-05 Office [facility] 1.2.840.114 [id number] Univers 09:15:43 09:35:40 [facility] [place] 350.1.13.10 it[place] of [place]2.[place] essio [id number] Sd nat nal 059 [facility] 2020-07-25 2020-07-25 Outpatient R JOSE ALBERTO, [facility] [id number] Univers 08:31:20 23:59:00 [facility] 2020-07-25 2020-07-25 Outpatient R JOSE ALBERTO, [facility] [id number] Univers 08:31:20 23:59:00 [facility] revelesy o [facility] 2020-07-25 2020-07-25 Outpatient R JOSE ALBERTO, [facility] [id number] Univers 09:00:00 09:00:00 LIBRADO to o [facility] 2020-07-10 2020-07-10 Telephone GOLDIE Nguyen 1.2.840.114 [id number] Univers 00:00:00 00:00:00 Y HEALTH 350.1.13.10 i ty of [place] [phone] [facility] [address] 2020-06-28 2020-06-28 Orders Doctor THOMAS [id number] Univers 00:00:00 00:00:00 Only Unassigned, JULIUS 350.1.13.10 ity of [place] [facility] 4.2.7.2.686 Manuel as [phone] [facility] [address] 2020-06-25 2020-06-25 Outpatient R TANA VELEZ [facility] [id number] Univers 09:45:00 09:45:00 ity of [facility] 2020-06-25 2020-06-25 Outpatient TANA ISAACS [facility] [id number] Univers 09:45:00 09:45:00 ity of [facility] 2020-06-25 2020-06-25 Outpatient TANA ISAACS [facility] [id number] Univers 09:45:00 09:45:00 ity Formerly [facility] 2020-06-25 2020-06-25 Office Tana Velez [facility] 1.2.840.114 [id number] Univers 09:18:55 09:33:55 Visit [facility] 350.1.13.10 it y of [place] [phone] [address] Office Building 2020-06-11 2020-06-11 Outpatient R MARKUS [facility] [id number] Univers 13:30:00 14:34:44 KEISHA to Formerly [facility] 2020-06-11 2020-06-11 Outpatient Belia APARICIO [facility] [id number] Univers 13:30:00 14:34:44 KEISHA to Formerly [facility] 2020-06-11 2020-06-11 Office [facility] 1.2.545.744 [id number] Univers 12:55:34 14:34:44 Visit Keisha Juarez 350.1.13.10 i ty of [place].2.7.2.686 [place] [facility] [phone] [place] [address] Branch Building 2020-06-11 2020-06-11 Outpatient R APARICIO [facility] [id number] Univers 13:30:00 13:30:00 KEISHA to Formerly [facility] 2020-06-03 2020-06-03 Outpatient Belia JIMÉNEZ [facility] [id number] Univers 08:50:00 08:50:00 INDIGO to Formerly [facility] 2020-06-03 2020-06-03 Outpatient Belia JIMÉNEZ [facility] [id number] Univers 08:50:00 08:31:51 INDIGO itlorraine Formerly [facility] 2020-06-03 2020-06-03 Outpatient R JESSY [facility] [id number] Univers 08:50:00 08:31:51 INDIGO yousuf dodd [facility] 2020-05-31 2020-05-31 Outpatient Belia NAZARIO [facility] [id number] Univers 09:00:00 09:00:00 LIDIA farley [facility] 2020-05-31 2020-05-31 Outpatient Belia NAZARIO [facility] [id number] Univers 09:00:00 09:00:00 LIDIA farley [facility] 2020-05-31 2020-05-31 Outpatient R JAN [facility] [id number] Univers 09:00:00 09:00:00 LIDIA farley [facility] 2020-05-30 2020-05-30 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 840.114 [id number] Univers 10:38:21 10:58:21 Visit Chela [facility] 350.1.13.1 0 ity of [place] 4.2.7.2.686 Manuel as Professio [phone] Sd dical nal 044 Call Office [facility] One 2020-05-30 2020-05-30 Outpatient R ELENI, [facility] [id number] Univers 10:00:00 10:36:57 WONDIFUL ity o [facility] 2020-05-30 2020-05-30 Outpatient R ELENI, [facility] [id number] Univers 10:00:00 10:36:57 WONDIFUL ity o [facility] 2020-05-30 2020-05-30 Office [facility] 1.2.840.114 [id number] Univers 09:28:48 10:36:57 Visit Wondiful A Health 350.1.13.10 ity of [place] 4.2.7.2.686 Manuel as Professio [phone] Sd dical nal 044 [facility] One 2020-05-30 2020-05-30 Outpatient R ELENI, [facility] [id number] Univers 10:00:00 10:00:00 WONDIFUL ity o [facility] 2020-05-06 2020-05-06 Outpatient R JOSE ALBERTO [facility] [id number] Univers 09:00:00 09:00:00 LIBRADO farley [facility] 2020-05-01 2020-05-01 Telephone [facility] 1.2.435.803 [id number] Univers 00:00:00 00:00:00 Simi Health 350.1.13.10 it y of [place] 4.2.7.2.686 Manuel as Professio [phone] [address] Office Building One 2020-04-24 2020-04-24 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 [facility] UNIVERSIT 1.2.840.114 [id number] Univers 11:05:23 11:20:23 Visit NguyenJose ingram HEALTH 350.1.13.10 ity of CLIN[place] 4[place].2.[place] [phone] [facility] 316 Call 2020-04-24 2020-04-24 Outpatient R WENDY [facility] [id number] Univers 09:30:00 10:57:46 JOSE to Formerly [facility] 2020-04-24 2020-04-24 Outpatient R NGUYEN, [facility] [id number] Univers 09:30:00 10:57:46 JOSE to Formerly [facility] 2020-04-24 2020-04-24 Office Wendy HILTON 1.2.840.114 [id number] Univers 09:17:48 10:57:46 Visit Jose CHAU 350.1.13.10 i ty of [place].2.[place] [phone] [facility] 071 Call 2020-04-24 2020-04-24 Outpatient R WENDY [facility] [id number] Univers 09:30:00 09:30:00 JOSE to Formerly [facility] 2020-04-24 2020-04-24 Telephone [facility] 1.2.778.134 [id number] Univers 00:00:00 00:00:00 Simi Health 350.1.13.10 it y of [place] 4.2.7.2.686 Manuel as Professio [phone] Sd dical nal 044 Call Office Building One 2020-04-24 2020-04-24 Telephone Sd [facility] 1.2.429.465 [id number] Univers 00:00:00 00:00:00 Simi Health 350.1.13.10 it y of [place] 4.2.7.2.686 Manuel as Professio [phone] [facility] 044 Call Office Building One 2020-04-22 2020-04-22 Orders Doctor THOMAS 1.2.840.114 [id number] Univers 00:00:00 00:00:00 Only Unassigned, JULIUS 350.1.13.10 ity of [facility] 4.2.7.2.686 Manuel as [phone] [facility] 009 Call 2020-04-18 2020-04-18 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 [facility] 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 1.2.840.114 [id number] Univers 09:49:19 09:58:35 Visit Isaac Morena Y HEALTH 350.1.13.10 ity of [place] 4[place].2.[place] [phone] [facility] 316 Call 2020-04-18 2020-04-18 Outpatient Belia GRAY [facility] [id number] Univers 09:45:00 09:58:35 [facility] 2020-04-18 2020-04-18 Outpatient Belia GRAY [facility] [id number] Univers 09:45:00 09:58:35 [facility] 2020-04-18 2020-04-18 Office HILTON Gray 1.2.031.979 [id number] Univers 08:45:47 09:38:59 Visit Morena Y HEALTH 350.1.13.10 i ty of [place] 4[place]2.[place].2.[place] [phone] [facility] 071 Call 2020-04-18 2020-04-18 Outpatient Belia GRAY [facility] [id number] Univers 09:00:00 09:00:00 [facility] 2020-04-11 2020-04-11 Outpatient Belia BEAVER [facility] [id number] Univers 13:30:00 16:02:08 SIMI itlorraine Formerly [facility] 2020-04-11 2020-04-11 Outpatient R SD [facility] [id number] Univers 13:30:00 16:02:08 SIMIMOIZ to Formerly [facility] 2020-04-11 2020-04-11 [address] [facility] [address] [id number] Univers 13:30:00 16:02:08 SIMI to Formerly [facility] 2020-04-11 2020-04-11 Office [facility] 1.2.840.114 [id number] Univers 12:57:38 16:02:08 Visit Simi [facility] 350.1.13.10 it y of [place] 4.2.7.2.686 Manuel as Professio [phone] [address] Office [facility] One 2020-04-11 2020-04-11 Outpatient [facility] [id number] Univers 13:30:00 13:30:00 SIMI to Formerly [facility] 2020-04-03 2020-04-03 Telephone [facility] 1.2.778.832 [id number] [facility] 00:00:00 00:00:00 Simi [facility] 350.1.13.10 it y of [place] 4.2.7.2.686 Manuel as Professio [phone] [address] Office [facility] One 2020-03-27 2020-03-27 Coward [facility] 1.2.468.262 [id number] 00:00:00 00:00:00 [facility]i [facility] 350.1.13.10 [place] 4.2.7.2.686 Professio [phone] [place] [address] Office Building One 2020-03-27 2020-03-27 Coward [facility] 1.2.839.315 [id number] Univers 00:00:00 00:00:00 Simi [facility] 350.1.13.10 it y of [place] 4.2.7.2.686 Manuel as Professio [phone] [address] Office Building One 2020-03-26 2020-03-26 Telephone [facility] 1.2.845.700 [id number] 00:00:00 00:00:00 [facility]i [facility] 350.1.13.10 [place] 4.2.7.2.686 Professio [phone] [place] [address] Office [facility] 2020-03-26 2020-03-26 Telephone Sd [facility] 1.2.207.866 [id number] Univers 00:00:00 00:00:00 [facility]i [facility] 350.1.13.10 it y of [place] 4.2.7.2.686 Manuel as Professio [phone] [address] Office [facility] 2020-03-25 2020-03-25 Telephone [facility] 1.2.840.114 [id number] 00:00:00 00:00:00 Sam [facility] 350.1.13.10 [place] 4.2.7.2.686 Professio [phone] [place] [address] Office [facility] 2020-03-25 2020-03-25 Coward [facility] 1.2.840.114 [id number] [facility] 00:00:00 00:00:00 Sam Health 350.1.13.10 it y of [place] 4.2.7.2.686 Manuel as Professio [phone] [address] 2020-03-01 2020-03-01 Orders Doctor THOMAS 1.2.840.114 [id number] 00:00:00 00:00:00 Only Unassigned, JULIUS 350.1.13.10 [place] [facility] 4.2.7.2.686 [id number] 009 2020-03-01 2020-03-01 Orders Doctor THOMAS 1.2.840.114 [id number] Univers 00:00:00 00:00:00 Only Unassigned, JULIUS 350.1.13.10 ity of [place] [facility] 4.2.7.2.686 Manuel as [phone] [address] 2020-02-29 2020-02-29 Patient Doctor [facility] 1.2.840.114 [id number] 00:00:00 00:00:00 Secure Msg Unassigned, Health 350.1.13.10 [place] 4.2.7.2.686 Professio [phone] [place] [address] Office Building One 2020-02-29 2020-02-29 Patient Doctor [facility] 1.2.840.114 [id number] Univers 00:00:00 00:00:00 Secure Msg Unassigned, Health 350.1.13.10 ity of [place] 4.2.7.2.686 Manuel as Professio [phone] [address] Office Building One 2020-02-26 2020-02-26 Telephone [facility] 1.2.575.822 [id number] 00:00:00 00:00:00 Simi [facility] 350.1.13.10 [place] 4.2.7.2.686 Professio [phone] [place] [address] Office Building One 2020-02-26 2020-02-26 Telephone [facility] 1.2.856.757 [id number] Univers 00:00:00 00:00:00 [facility] Health 350.1.13.10 it y of [place] 4.2.7.2.686 Manuel as Professio [phone] [address] Office Building One 2020-02-01 2020-02-01 [facility] 1.2.840.114 [id number] 00:00:00 00:00:00 [facility] 350.1.13.10 [place] 4.2.7.2.686 Professio [phone] [place] [address] Office Building One 2020-02-01 2020-02-01 [facility] 1.2.840.114 [id number] [facility] 00:00:00 00:00:00 [facility] 350.1.13.10 it y of [place] 4.2.7.2.686 Manuel as Professio [phone] [address] Office Building One 2020-01-31 2020-01-31 Orders Doctor THOMAS 1.2.840.114 [id number] 00:00:00 00:00:00 Only Unassigned, JULIUS 350.1.13.10 [facility] 4.2.7.2.686 [phone] 2020-01-31 2020-01-31 Orders Doctor THOMAS 1.2.840.114 [id number] Univers 00:00:00 00:00:00 Only Unassigned, JULIUS 350.1.13.10 ity of [place] [facility] 4.2.7.2.686 Manuel as [phone] [address] 2020-01-23 2020-01-23 Orders Doctor THOMAS 1.2.840.114 [id number] 00:00:00 00:00:00 Only Unassigned, JULIUS 350.1.13.10 [place] [facility] 4.2.7.2.686 [id number] 2020-01-23 2020-01-23 Orders Doctor THOMAS 1.2.840.114 [id number] Univers 00:00:00 00:00:00 Only Unassigned, JULIUS 350.1.13.10 ity of [place] [facility] 4.2.7.2.686 Manuel as [phone] [address] 2020-01-09 2020-01-09 Telephone [facility] 1.2.840.114 [id number] 00:00:00 00:00:00 [facility] 350.1.13.10 [place] 4.2.7.2.686 Professio [phone] [place] [address] Office [facility] 2020-01-09 2020-01-09 Telephone [facility] 1.2.840.114 [id number] [facility] 00:00:00 00:00:00 Sam Health 350.1.13.10 it y of [place] 4.2.7.2.686 Manuel as Professio [phone] Sd dical [address] Office Building [facility] 2020-01-08 2020-01-08 Outpatient R [facility] [id number] Univers 16:40:00 16:40:00 ity of [facility] 2020-01-08 2020-01-08 Urgent Provider, [facility] 1.2.398.465 [id number] 16:10:58 16:30:58 Care [facility] 350.1.13.10 Care [place] 4.2.7.2.686 Professio [phone] [address] 2020-01-08 2020-01-08 Urgent Provider, [facility] 1.2.840.114 [id number] Univers 16:10:58 16:30:58 Care Simi Beaver [facility] 350.1.13.10 ity of [place] 4.2.7.2.686 Manuel as Professio [phone] [address] 2019-11-29 2019-11-29 Orders Doctor GUZMAN 1.2.840.114 [id number] 00:00:00 00:00:00 Only Unassigned, JULIUS 350.1.13.10 [place] [facility] 4.2.7.2.686 [phone] [facility] 2019-11-29 2019-11-29 Orders Doctor GUZMAN 1.2.840.114 [id number] Univers 00:00:00 00:00:00 Only Unassigned, JULIUS 350.1.13.10 ity of [place] [facility] 4.2.7.2.686 Manuel as [phone] [address] 2019-11-17 2019-11-18 Office [facility] 1.2.840.114 [id number] 08:28:10 17:49:23 Visit Lidia Juarez 350.1.13.10 [place] 4.2.7.2.686 Professio [phone] [address] 2019-11-17 2019-11-18 Office [facility] 1.2.840.114 [id number] [facility] 08:28:10 17:49:23 Visit Lidia Juarez 350.1.13.10 ity of [place] 4.2.7.2.[place] Profess[place] [phone] [address] 2019-11-17 2019-11-17 Outpatient R JAN [facility] [id number] [facility] 08:45:00 08:45:00 LIDIA farley [facility] 2019-11-13 2019-11-13 Outpatient R RACHELE [facility] [id number] Univers 09:00:00 09:00:00 SENDIL yousuf of [facility] 2019-11-13 2019-11-13 Orders Doctor GUZMAN 1.2.840.114 [id number] Univers 00:00:00 00:00:00 Only Unassigned, JULIUS 350.1.13.10 ity of [place] [facility] 4.2.7.2.686 Manuel as [phone] [address] 2019-11-01 2019-11-01 Telephone [facility] 1.2.840.114 [id number] Univers 00:00:00 00:00:00 Sam Juarez 350.1.13.10 i ty of [place].2.7.2.686 [place] Profess[place] [phone] Sd dical nal 044 [facility] 2019-10-27 2019-10-27 Office [facility] 1.2.840.114 [id number] Univers 09:30:53 10:29:54 Visit Lidia Juarez 350.1.13.10 ity of [place] 4.2.7.2.[place] Profess[place] [phone] Sd dical nal 205 [facility] 2019-10-27 2019-10-27 Outpatient R [facility] [id number] [facility] 10:00:00 10:00:00 LIDIA to o f [facility] 2019-10-27 2019-10-27 [facility] 1.2.023.324 [id number] Univers 00:00:00 00:00:00 Librado Juarez 350.1.13.10 ity of [place] 4.2.7.2.686 [place] Profess[place] [phone] Sd dical nal 059 [facility] 2019-10-27 2019-10-27 [facility] 1.2.465.848 [id number] Univers 00:00:00 00:00:00 Librado Juarez 350.1.13.10 ity of [place] 4.2.7.2.686 [place] Profess[place] [phone] Sd dical nal 059 [facility] 2019-10-21 2019-10-21 [facility] 1.2.840.114 [id number] Univers 00:00:00 00:00:00 Management Chela Juarez 350.1.13.10 ity of [place] 4.2.7.2.686 [place] Profess[place] [phone] Sd dicak nal 044 [facility] 2019-10-20 2019-10-20 Telephone [facility] 1.2.840.114 [id number] Univers 00:00:00 00:00:00 Sam Angela 350.1.13.10 i ty of [place] 4.2.7.2.686 [place] Profess[place] [phone] Sd dicak nal [address] [place] [address] 2019-10-17 2019-10-17 Office [employer] 1.2.840.114 [id number] Univers 11:20:37 12:12:34 Visit Librado Juarez 350.1.13.10 ity of [place] 4.2.7.2.686 [place] Profess[place] [phone] [address] 2019-10-17 2019-10-17 Outpatient R [facility] [id number] Univers 11:40:00 11:40:00 LIBRADO revelesy o f [facility] 2019-10-16 2019-10-16 Telephone [facility] 1.2.698.720 [id number] Univers 00:00:00 00:00:00 Simi Juarez 350.1.13.10 i ty of [place] 4.2.7.2.[place] Profess[place] [phone] Sd dic[address] 2019-10-10 2019-10-10 Refill [facility] 1.2.840.114 [id number] Univers 00:00:00 00:00:00 [facility] 350.1.13.10 it y of [place] 4.2.7.2.686 Manuel as Professio [phone] Sd dic[address] Office Building One 2019-09-07 2019-09-07 Telephone [facility] 1.2.743.177 [id number] Univers 00:00:00 00:00:00 [facility] 350.1.13.10 ity of [place]2.7.2.686 [place] [phone] [place] [address] Branch Office Building 2019-09-01 2019-09-01 Office [facility] 1.2.840.114 [id number] Univers 11:04:23 11:45:55 Visit Oli [place] 350.1.13.10 ity of [place] 4.2.7.2.686 [place] Profess[place] [phone] Sd dical nal 059 [facility] 2019-09-01 2019-09-01 Outpatient R [facility] [id number] Univers 11:00:00 11:00:00 SENDDAY ity Formerly [facility] 2019-07-21 2019-07-21 Outpatient R VAHID [facility] [id number] Univers 10:30:00 10:30:00 SAM to [facility]ly [facility] 2019-07-21 2019-07-21 Out[address] [facility] [id number] Univers 09:15:00 09:15:00 WONDIFUL ity o f [facility] 2019-07-21 2019-07-21 Telemedici [facility] 1.2.840.114 [id number] Univers 07:53:52 08:08:52 ne Visit Sam Angela 350.1.13.10 ity of [place] 4.2.7.2.[place] Profess[place] [phone] Sd dical nal 044 [facility] 2019-07-10 2019-07-10 [facility] 1.2.840.114 [id number] Univers 00:00:00 00:00:00 Simi Health 350.1.13.10 it y of [place] 4.2.7.2.686 Manuel as Professio [phone] Sd dical nal 044 [facility] 2019-06-09 2019-06-09 [facility] 1.2.840.114 [id number] Univers 00:00:00 00:00:00 Simi Health 350.1.13.10 it y of [place] 4.2.7.2.686 Manuel as Professio [phone] Sd dical nal 044 [facility] 2019-05-12 2019-05-12 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 Vascular Room 1 - [facility] 1.2.840.114 [id number] Univers 08:03:52 12:08:17 Visit Andrey Spencerday KiritTrinaMichaelaTrina Angela 350.1.13. 10 ity of [place].2.[place].2.[place] Profess[place] [phone] [address] 2019-05-12 2019-05-12 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 [facility], [facility] Vascular Room 1 - [facility] 1.2.840.114 [id number] [facility] 08:03:22 12:07:58 Visit Oli Spencer 350.1.13. 10 ity of [place] 4.2.7.2.[place] [phone] [address] 2019-05-01 2019-05-02 Office [facility] 1.2.840.114 [id number] Univers 16:37:44 13:25:33 Visit BBE 350.1.13.10 it y of [place] 4.2.7.2.686 Manuel as Professio [phone] [address] 2019-05-02 2019-05-02 Office [employer] 1.2.840.114 [id number] Univers 09:14:48 10:02:07 Visit Librado Angela 350.1.13.10 ity of [place] 4.2.7.2.[place] [phone] [address] 2019-05-02 2019-05-02 Telephone [facility] 1.2.874.154 [id number] Univers 00:00:00 00:00:00 Simi Health 350.1.13.10 it y of [place] 4.2.7.2.686 Manuel as Professio [phone] [address] 2019-04-30 2019-05-01 Emergency X SINGER [facility] ERT [id number] Univers 23:28:52 01:43:00 JOSE to of [facility] 2019-04-30 2019-05-01 Emergency Singer [facility] 1.2.215.039 [id number] Univers 23:28:52 01:43:00 Jose Juarez 350.1.13.10 i ty of [place] 4.2.7.2.686 [place] [phone] [place] 572514 Call 2019-04-18 2019-04-18 Telephone Sd [facility] 1.2.299.805 [id number] Univers 00:00:00 00:00:00 Simi [facility] 350.1.13.10 it y of [place] 4.2.7.2.686 Manuel as [place] [phone] [facility] [address] Office Building One 2019-03-09 2019-03-09 Outpatient R SD [facility] [id number] Univers 17:12:34 23:59:00 SIMI to Formerly [facility] 2018-12-07 2018-12-07 Outpatient Madhavi [place] [id number] Common 08:19:00 08:19:[address] [facility] [address] [facility] ED 2018-12-06 2018-12-06 Outpatient [facility] [id number] Common 10:40:00 10:40:[address] [place] [address] [facility] ED 2018-11-22 2018-11-22 Outpatient [facility] [id number] Common 09:02:00 09:02:[address] [place] [address] [facility] ED 2018-11-18 2018-11-18 Outpatient [facility] [id number] Common 09:05:00 09:05:[address] [facility] ED 2018-11-10 2018-11-10 Outpatient [facility] [id number] Common 16:00:00 16:00:[address] [facility] ED 2018-10-19 2018-10-19 Outpatient [facility] [id number] Common 14:30:00 14:30:[address] [facility] ED 2018-06-14 2018-06-14 Outpatient [facility] [id number] Common 08:32:00 08:32:[address] [facility] ED 2018-06-07 2018-06-07 Outpatient [facility] [id number] Common 13:45:00 13:45:00 t [facility] [address] [facility] ED 2016-10-01 2016-10-02 Outpatient Formerly [facility] [id number] Memoria 15:22:00 04:59:00 r Warriormine 01 l EDDC Nader 2016-10-01 2016-10-02 Outpatient [place] [id number] Memoria 15:22:00 04:59:00 r Warriormine 01 l EDDC Nader 2016-10-01 2016-10-01 Outpatient [facility], [facility] [id number] 10:22:00 23:59:00 Darwin 01 Darrell [facility] 2016-07-02 2016-07-03 Outpatient Formerly [facility] [id number] Memoria 15:08:00 04:59:00 r Nader 00 l EDDC Nader 2016-07-02 2016-07-03 Outpatient [facility] [id number] Memoria 15:08:00 04:59:00 r Nader 00 l EDDC Nader 2016-07-02 2016-07-02 Outpatient claudiai, [facility] [id number] 10:08:00 23:59:00 Darwin 00 Darrell [employer] 2010-10-24 2010-10-24 Orders Doctor THOMAS [id number] 00:00:00 00:00:00 Only Unassigned, JULIUS [id number] ity of [facility] [id number] Manuel as [phone] [place] [id number] Branch Results Test Description Test Time Test Comments Results Result Comments Source POC-Glucose meter 2022-01-22 08:45:21 Test Item Value Reference Range Interpretation Comme [facility] POC-Glucose Meter (test code = 193 mg/dL 70-110 H : TESTED AT [facility] [address] [facility] 1538) [facility], [facility] 30: [employer]Techni lyndsay ID = [id number] for SONU QUICK Lab Interpretation (test code = Abnormal 23082-7) [facility] [id number] 08:45:21 Test Item Value Reference Range Interpretation Comments POC-Glucose Meter (test 193 mg/dL 70-110 H : TE STED AT [facility] code = 1538) [address] [place] [address], 770 30: Automotive Window Tinter/Techni lyndsay ID = [id number] for DEOCOS, SONU NE SATNAM Lab Interpretation (test Abnormal code = 93347-4) [facility] [id number] 08:45:21 Test Item Value Reference Range Interpretation Comments POC-Glucose Meter (test 193 mg/dL 70-110 H : TE STED AT [facility] code = 1538) [address] [place] [address], 770 30: Automotive Window Tinter/Techni lyndsay ID = [id number] for DEOCOS, SONU NE SATNAM Lab Interpretation (test Abnormal code = 55767-8) [facility] [id number] 08:45:21 Test Item Value Reference Range Interpretation Comments POC-Glucose Meter (test 193 mg/dL 70-110 H : TE STED AT [facility] code = 1538) [address] [place] [address], 770 30: Automotive Window Tinter/Techni lyndsay ID = [id number] for DEOCOS, SONU NE SATNAM Lab Interpretation (test Abnormal code = 70668-5) [facility] [id number] 08:45:21 Test Item Value Reference Range Interpretation Comments POC-GLUCOSE METER 193 mg/dL 70-110 H : TESTED A T [facility] 6720 (BEAKER) (test code [facility], = 1538) 28885: Automotive Window Tinter/Techni lyndsay ID = [id number] for DEOC OS, NICOLA SATNAM POCT-GLUCOSE [id number] 08:45:15 Test Item Value Reference Range Interpretation Comments POC-GLUCOSE METER 165 mg/dL 70-110 H : TESTED A T [facility] 6720 (BEAKER) (test [facility] = [facility] 1538[facility] [address]26: Automotive Window Tinter/Techni lyndsay ID = [id number] for PE PATRICIA, WALTER POCT-GLUCOSE [id number] 08:45:15 Test Item Value Reference Range Interpretation Comments POC-GLUCOSE METER 142 mg/dL 70-110 H : TESTED A T [facility] 6720 (BEAKER) (test code = [facility], 153) 63561: Automotive Window Tinter/Techni lyndsay ID = [id number] for WALTER PETERSEN POCT-GLUCOSE [id number] 08:45:15 Test Item Value Reference Range Interpretation Comments POC-GLUCOSE METER 136 mg/dL 70-110 H : TESTED A T [facility] 6720 ([facility]) (test code = [facility], 153) 66208: Automotive Window Tinter/Techni lyndsay ID = [id number] for TH OMPSON, FLORENCE POCT-GLUCOSE [id number] 08:45:14 Test Item Value Reference Range Interpretation Comments POC-GLUCOSE METER 250 mg/dL 70-110 H : TESTED A T [facility] 6720 ([facility]) (test code = [facility], 153) 44571: Automotive Window Tinter/Techni lyndsay ID = [id number] for TH OMPSON, FLORENCE POCT-GLUCOSE [id number] 08:45:14 Test Item Value Reference Range Interpretation Comments POC-GLUCOSE METER 139 mg/dL 70-110 H : TESTED A T [facility] 6720 ([facility]) (test code = [facility], 153) 45559: Automotive Window Tinter/Techni lyndsay ID = [id number] for Zully Spear2022-08-03 00:00:00resultCOMP. METABOLIC PANEL (67274)2021-08-04 04:03:33 Test Item Value Reference Range Interpretation Comments NA (test code = 131 mmol/L 135-145 L 8688379782) K (test code = 5.3 mmol/L 3.5-5.0 H 7796917614) CL (test code = 97 mmol/L 98-108 L 0486193456) CO2 TOTAL (test code = 23 mmol/L 23-31 3107184813) AGAP (test code = 2-16 4167831438) BUN (test code = 23 mg/dL 7-23 9479846180) GLUCOSE (test code = 418 mg/dL 70-110 H 6603049120) CREATININE (test code = 1.05 mg/dL 0.50-1.04 H 0528827026) TOTAL BILI (test code = 0.4 mg/dL 0.1-1.1 3206430833) CALCIUM (test code = 9.8 mg/dL 8.6-10.6 7723324651) T PROTEIN (test code = 6.5 g/dL 6.3-8.2 3725281242) ALBUMIN (test code = 4.1 g/dL 3.5-5.0 0569385081) ALK PHOS (test code = 82 U/L 34-122 9659610478) ALTv (test code = 14 U/L 5-35 1742-6) AST(SGOT) (test code = 17 U/L 13-40 6649272530) eGFR (test code = mL/min/1.73m2 3634449492) ELLIOT (test code = ELLIOT) Association of Glomerular Filtration Rate (GFR) and Staging of Kidney Disease* + --+ --+ ------+| GFR (mL/min/1.73 m2) ?| With Kidney Damage ?| ?Without Kidney Damage+ --------+ --------+ +| ?>90 ?| ?Stage one ?| ? Normal ?+ ---+ ---+ -------+| ?60-89 ?| ?Stage two ?| ? Decreased GFR ? + --+ --+ ------+| ?30-59 ?| ?Stage three ?| ? Stage three ? + --+ --+ ------+| ?15-29 ?| ?Stage four ? | ? Stage four ?+ ---+ ---+ -------+| ?<15 (or dialysis) ? ?| ?Stage five ? | ? Stage five ?+ ---+ ---+ -------+ *Each stage assumes the associated GFR [...] or abnormalities in imaging tests). Lab Interpretation Abnormal (test code = 98485-3) [facility]IP[facility]2022-05-09 04:02:53 Test Item Value Reference Range Interpretation Comments LIPASE (test code = 5565646535) 396 U/L 0-220 H Lab Interpretation (test code = Abnormal 34444-8) [facility] WITH [id number] 03:45:51 Test Item Value Reference Range Interpretation [...] (test code = 50.9 fL 39.0-49.9 H 08371-2) RDW-CV (test code = 15.7 % 12.0-15.5 H 788-0) PLT (test code = See_Comment H [Automated 777-3) message] The system which generated this result transmit bruna reference range : 166 - 358 10*3/ ?L. The reference range was not u sed to interpret th is result as normal/abnormal . MPV (test code = 10.4 fL 9.5-12.9 47059-0) NRBC/100 WBC (test See_Comment [Automat ed code = 6738643691) message] The system which generated this result transmit bruna reference range : 0.0 - 10.0 /100 WBCs. The reference range was not used to interpret this result as normal/abnormal . NRBC x10^3 (test code See_Comment [Auto mated = 2376152287) message] The system which generated this result transmit bruna reference range : 10*3/?L. The reference range was not used to interpret this result as normal/abnormal . GRAN MAT (NEUT) % 80.7 % (test code = 770-8) IMM GRAN % (test code 0.60 % = 9396978899) LYMPH % (test code = 9.4 % 736-9) MONO % (test code = 6.6 % 5905-5) EOS % (test code = 1.8 % 713-8) BASO % (test code = 0.9 % 706-2) GRAN MAT x10^3(ANC) 13.34 10*3/uL 1.88-7.09 H (test code = 8389471081) IMM GRAN x10^3 (test 0.10 10*3/uL 0.00-0.06 H code = 4157115212) LYMPH x10^3 (test code 1.55 10*3/uL 1.32-3.29 = 731-0) MONO x10^3 (test code 1.09 10*3/uL 0.33-0.92 H = 742-7) EOS x10^3 (test code = 0.29 10*3/uL 0.03-0.39 711-2) BASO x10^3 (test code 0.15 10*3/uL 0.01-0.07 H = 704-7) Lab Interpretation Abnormal (test code = 47708-7) [facility] [id number] 08:26:00 Test Item Value Reference Range Interpretation Comments POC-GLUCOSE METER 175 mg/dL 70-110 H TESTED AT [facility] 6720 (BEAKER) (test code = GIRISH Celaya [place] 1538) [address] [id number] 07:30:00 Test Item Value Reference Range Interpretation Comments MAGNESIUM (BEAKER) 1.8 mg/dL 1.6-2.6 Specimen slightly (test code = 627) hemolyzed [id number] 07:30:00 Test Item Value Reference Range Interpretation Comments PHOSPHORUS (BEAKER) 3.2 mg/dL 2.3-4.7 Specimen slightly (test code = 604) hemolyzed BASIC METABOLIC [id number] 07:30:00 Test Item Value Reference Range Interpretation [...] PATIEN TS. CBC W/PLT COUNT & AUTO [id number] 06:50:00 Test Item Value Reference Range Interpretation [...] PERCENT (BEAKER) (test code = 2801) POCT-GLUCOSE [id number] 21:15:00 Test Item Value Reference Range Interpretation Comments POC-GLUCOSE METER 246 mg/dL 70-110 H TESTED AT [place] [address] ([facility]) (test code = [facility] 1538) [address] POCT-GLUCOSE [id number] 17:16:00 Test Item Value Reference Range Interpretation Comments POC-GLUCOSE METER 323 mg/dL 70-110 H TESTED AT [place] [address] ([facility]) (test code = [facility] 1538) [address] POCT-GLUCOSE [id number] 13:13:00 Test Item Value Reference Range Interpretation Comments POC-GLUCOSE METER 250 mg/dL 70-110 H TESTED AT [place] [address] ([facility]) (test code = [facility] 1538) [address] POCT-GLUCOSE [id number] 08:26:00 Test Item Value Reference Range Interpretation Comments POC-GLUCOSE METER 261 mg/dL 70-110 H TESTED AT [place] [address] ([facility]) (test code = [facility] 1538) [address] CALCIUM, [id number] 06:39:00 Test Item Value Reference Range Interpretation Comments CALCIUM IONIZED (BEAKER) (test 1.08 mmol/L 1.12-1.27 L code = 698) PH, BLOOD (BEAKER) (test code = 7.47 1810) [id number] 05:53:00 Test Item Value Reference Range Interpretation Comments PHOSPHORUS (BEAKER) (test code = 4.1 mg/dL 2.3-4.7 604) [id number] 05:53:00 Test Item Value Reference Range Interpretation Comments MAGNESIUM (BEAKER) (test code = 1.7 mg/dL 1.6-2.6 627) BASIC METABOLIC [id number] 05:53:00 Test Item Value Reference Range Interpretation [...] PATIEN TS. CBC W/PLT COUNT & AUTO [id number] 05:32:00 Test Item Value Reference Range Interpretation [...] PERCENT (BEAKER) (test code = 2801) POCT-GLUCOSE [id number] 22:58:00 Test Item Value Reference Range Interpretation Comments POC-GLUCOSE METER 390 mg/dL 70-110 H Notified R N or ([facility]) (test code = Patien t refused repeat 3680) test/TESTED AT [place] [address] [place] [address] POCT-GLUCOSE [id number] 21:18:00 Test Item Value Reference Range Interpretation Comments POC-GLUCOSE METER 404 mg/dL 70-110 HH Notified Belia Adams MD/TESTED ([facility]) (test code = AT [address] 1538) [facility] 7703 0 POCT-GLUCOSE [id number] 17:45:00 Test Item Value Reference Range Interpretation Comments POC-GLUCOSE METER 217 mg/dL 70-110 H TESTED AT [place] [address] ([facility]) (test code = GIRISH Celaya [facility] 1538) [address] POCT-GLUCOSE [id number] 12:07:00 Test Item Value Reference Range Interpretation Comments POC-GLUCOSE METER 209 mg/dL 70-110 H TESTED AT [place] [address] ([facility]) (test code = GIRISH Celaya [facility] 1538) [address] HEMOGLOBIN [id number] 07:58:00 Test Item Value Reference Range Interpretation Comments HEMOGLOBIN A1C ([facility]) (test code = 5.8 % 4.3-6.1 368) TSH/FREE T4 IF [id number] 05:30:00 Test Item Value Reference Range Interpretation Comments THYROID STIMULATING HORMONE 1.75 uIU/mL 0.35-4.94 ([facility]) (test code = 772) POCT-GLUCOSE [id number] 05:21:00 Test Item Value Reference Range Interpretation Comments POC-GLUCOSE METER 213 mg/dL 70-110 H TESTED AT [place] [address] ([facility]) (test code = GIRISH Celaya [facility] 1538) [address] [id number] 05:11:00 Test Item Value Reference Range Interpretation Comments PHOSPHORUS (BEAKER) (test code = 4.0 mg/dL 2.3-4.7 604) [id number] 05:11:00 Test Item Value Reference Range Interpretation Comments MAGNESIUM (BEAKER) (test code = 1.7 mg/dL 1.6-2.6 627) BASIC METABOLIC [id number] 05:11:00 Test Item Value Reference Range Interpretation [...] NOT APPLICABLE FOR DIALYSIS PATIEN TS. LIPID [id number] 05:11:00 Test Item Value Reference Range Interpretation [...] Very High >=190CBC W/PLT COUNT & AUTO [id number] 04:48:00 Test Item Value Reference Range Interpretation [...] PERCENT (BEAKER) (test code = 2801) CALCIUM, [id number] 04:13:00 Test Item Value Reference Range Interpretation Comments CALCIUM IONIZED (BEAKER) (test 1.15 mmol/L 1.12-1.27 code = 698) PH, BLOOD (BEAKER) (test code = 7.47 1810) POCT-GLUCOSE [id number] 21:03:00 Test Item Value Reference Range Interpretation Comments POC-GLUCOSE METER 220 mg/dL 70-110 H TESTED AT [place] [address] ([facility]) (test code = [facility] 1538) [address] IRON, TIBC, % SAT. (WITHOUT FERRITIN)2016-12-13 19:01:00 Test Item Value Reference Range Interpretation Comments IRON ([facility]) (test code = 547) 23 ug/dL 40-160 L TOTAL IRON BINDING CAPACITY 404 ug/dL 250-450 ([facility]) (test code = 769) IRON % SATURATION (2) ([facility]) 6 % 20-55 L (test code = 2590) POCT-GLUCOSE [id number] 17:23:00 Test Item Value Reference Range Interpretation Comments POC-GLUCOSE METER 371 mg/dL 70-110 H TESTED AT [place] [address] ([facility]) (test code = [facility] 1538) [address] POCT-GLUCOSE [id number] 05:33:00 Test Item Value Reference Range Interpretation Comments POC-GLUCOSE METER 227 mg/dL 70-110 H TESTED AT [address] ([facility]) (test code [facility] [place] = 1538) [address] POCT-GLUCOSE [id number] 20:59:00 Test Item Value Reference Range Interpretation Comments POC-GLUCOSE METER 266 mg/dL 70-110 H TESTED AT [address] ([facility]) (test code [facility] [place] = 1538) [address] POCT-GLUCOSE [id number] 20:58:00 Test Item Value Reference Range Interpretation Comments POC-GLUCOSE METER 300 mg/dL 70-110 H TESTED AT [address] ([facility]) (test code [facility] [place] = 1538) [address] POCT-GLUCOSE [id number] 20:58:00 Test Item Value Reference Range Interpretation Comments POC-GLUCOSE METER 177 mg/dL 70-110 H TESTED AT [address] ([facility]) (test code [facility] [place] = 1538) [address] HEMORRHAGE IMAGING, [id number] 13:30:00FINAL REPORT PROCEDURE: HEMORRHAGE STUDY with RBCs CPT CODE: 72773 INDICATION: Gastrointestinal Bleeding PROTOCOL: 21.5 mCi of [...] uptake in the right lower abdomen. IMPRESSION: Mild,interval hemorrhage. No specific bleeding site is identified, but the pattern suggests a source in th e mid or distal small bowel. Signed: Yoni Ly MDReport Verified Date/Time: 12/12/2016 13:30:53 Reading Location: [address] [address] Reading Room POCT- GLUCOSE [id number] 11:21:00 Test Item Value Reference Range Interpretation Comments POC-GLUCOSE METER 168 mg/dL 70-110 H TESTED AT [address] [facility] (test code [facility] [place] = 1538) [address] POCT-GLUCOSE [id number] 11:21:00 Test Item Value Reference Range Interpretation Comments POC-GLUCOSE METER 184 mg/dL 70-110 H TESTED AT [address] [facility] (test code [facility] [place] = 1538) [address] BASIC METABOLIC [id number] 05:16:00 Test Item Value Reference Range Interpretation [...] S NOT APPLICABLE FOR DIALYSIS PATIEN TS. [id number] 05:10:00 Test Item Value Reference Range Interpretation Comments MAGNESIUM (BEAKER) (test code = 2.0 mg/dL 1.5-3.0 627) CBC W/PLT COUNT & AUTO [id number] 04:57:00 Test Item Value Reference Range Interpretation [...] L 0.00-0.20 (test code = 417) POCT-GLUCOSE [id number] 17:02:00 Test Item Value Reference Range Interpretation Comments POC-GLUCOSE METER 177 mg/dL 70-110 H TESTED AT [address] ([facility]) (test code [facility] [place] = 1538) [address] POCT-GLUCOSE [id number] 11:34:00 Test Item Value Reference Range Interpretation Comments POC-GLUCOSE METER 207 mg/dL 70-110 H TESTED AT [address] ([facility]) (test code [facility] [place] = 1538) [address] CBC W/PLT COUNT & AUTO [id number] 10:45:00 Test Item Value Reference Range Interpretation [...] code = 2+ moderate 963) BASIC METABOLIC [id number] 09:40:00 Test Item Value Reference Range Interpretation [...] S NOT APPLICABLE FOR DIALYSIS PATIEN TS. [id number] 09:39:00 Test Item Value Reference Range Interpretation Comments PHOSPHORUS (BEAKER) (test code = 3.3 mg/dL 2.5-4.5 604) [id number] 09:34:00 Test Item Value Reference Range Interpretation Comments MAGNESIUM (BEAKER) (test code = 2.1 mg/dL 1.5-3.0 627) POCT-GLUCOSE [id number] 06:01:00 Test Item Value Reference Range Interpretation Comments POC-GLUCOSE METER 171 mg/dL 70-110 H TESTED AT [address] ([facility]) (test code [facility] [place] = 1538) [address] POCT-GLUCOSE [id number] 06:00:00 Test Item Value Reference Range Interpretation Comments POC-GLUCOSE METER 148 mg/dL 70-110 H TESTED AT [address] ([facility]) (test code [facility] [place] = 1538) [address] URINALYSIS W/ [id number] 05:01:00 Test Item Value Reference Range Interpretation [...] = 2795) RAD, CHEST, 1 VIEW, NON [id number] 21:04:00Reason for exam:->coughShould this be performed at [...] [place] Verified Date/Time: 12/10/2016 21:04:27 Reading Location: [address] Consult Reading Room OCCULT BLOOD, [id number] 20:24:00 Test Item Value Reference Range Interpretation Comments FECAL OCCULT BLOOD (BEAKER) (test Positive Negative A code = 618) CBC W/PLT COUNT & AUTO [id number] 20:10:00 Test Item Value Reference Range Interpretation [...] RBCS(BEAKER) 1+ few (test code = 478) [id number] 20:07:00 Test Item Value Reference Range Interpretation [...] is 2.5-3.5 for patients with mechanical heart valves.[id number] 20:07:00 Test Item Value Reference Range Interpretation Comments LIPASE (BEAKER) (test code = 749) 37 U/L 6-51 COMPREHENSIVE METABOLIC [id number] 20:06:00 Test Item Value Reference Range Interpretation [...] NOT APPLICABLE FOR DIALYSIS PATIEN TS. BLOOD [id number] 06:00:00 Test Item Value Reference Range Interpretation Comments CULTURE (BEAKER) (test No growth in 5 days code = 1095) BLOOD [id number] 06:00:00 Test Item Value Reference Range Interpretation Comments CULTURE (BEAKER) (test No growth in 5 days code = 1095) POCT-GLUCOSE [id number] 12:19:00 Test Item Value Reference Range Interpretation Comments POC-GLUCOSE METER 132 mg/dL 70-110 H TESTED AT [facility] 6720 (BEAKER) (test code = LILAKWAME Celaya [facility] 1538) [address] POCT-GLUCOSE [id number] 11:19:00 Test Item Value Reference Range Interpretation Comments POC-GLUCOSE METER 222 mg/dL 70-110 H TESTED AT [place] [address] [facility] (test code = GIRISH Belia [facility] 1538) [address] POCT-GLUCOSE [id number] 07:21:00 Test Item Value Reference Range Interpretation Comments POC-GLUCOSE METER 309 mg/dL 70-110 H Notified R Jose FELIX/TESTED (BEAKER) (test code = AT [facility] 6720 [facility] 1538) [facility] 7703 0 CBC W/PLT COUNT & AUTO [id number] 05:52:00 Test Item Value Reference Range Interpretation [...] PERCENT (BEAKER) (test code = 2801) POCT-GLUCOSE [id number] 21:36:00 Test Item Value Reference Range Interpretation Comments POC-GLUCOSE METER 284 mg/dL 70-110 H TESTED AT [facility] 6720 ([facility]) (test code = GIRISH Celaya [facility] 1538) [address] POCT-GLUCOSE [id number] 17:03:00 Test Item Value Reference Range Interpretation Comments POC-GLUCOSE METER 394 mg/dL 70-110 H Notified Belia Adams MD/TESTED ([facility]) (test code = AT [facility] [address] [place] [address] 1538) [facility] 7703 0 POCT-GLUCOSE [id number] 11:47:00 Test Item Value Reference Range Interpretation Comments POC-GLUCOSE METER 332 mg/dL 70-110 H Notified Belia Adams MD/TESTED (BEAKER) (test code = AT [facility] [address] 1538) [facility] 7703 0 POCT-GLUCOSE [id number] 07:19:00 Test Item Value Reference Range Interpretation Comments POC-GLUCOSE METER 350 mg/dL 70-110 H Notified Belia Adams MD/TESTED (BEAKER) (test code = AT [facility] [address] 1538) [facility] 7703 0 BASIC METABOLIC [id number] 05:27:00 Test Item Value Reference Range Interpretation [...] PATIEN TS. CBC W/PLT COUNT & AUTO [id number] 05:05:00 Test Item Value Reference Range Interpretation [...] PERCENT (BEAKER) (test code = 2801) POCT-GLUCOSE [id number] 22:29:00 Test Item Value Reference Range Interpretation Comments POC-GLUCOSE METER 256 mg/dL 70-110 H TESTED AT [facility] 6720 ([facility]) (test code = GIRISH Celaya [facility] 1538) [address] POCT-GLUCOSE [id number] 18:52:00 Test Item Value Reference Range Interpretation Comments POC-GLUCOSE METER 366 mg/dL 70-110 H Notified R Jose FELIX/TESTED ([facility]) (test code = AT [facility] [address] [facility]8) [facility] 7703 0 POCT-GLUCOSE [id number] 12:02:00 Test Item Value Reference Range Interpretation Comments POC-GLUCOSE METER 399 mg/dL 70-110 H Notified Belia Adams MD/TESTED (BEAKER) (test code = AT [facility] [address] [place] [address] 1538) [facility] 7703 0 POCT-GLUCOSE [id number] 09:06:00 Test Item Value Reference Range Interpretation Comments POC-GLUCOSE METER 236 mg/dL 70-110 H TESTED AT [place] [address] ([facility]) (test code = [facility] 1538) [address] POCT-GLUCOSE [id number] 08:28:00 Test Item Value Reference Range Interpretation Comments POC-GLUCOSE METER 271 mg/dL 70-110 H TESTED AT [place] [address] ([facility]) (test code = [facility] 1538) [address] POCT-GLUCOSE [id number] 06:31:00 Test Item Value Reference Range Interpretation Comments POC-GLUCOSE METER 236 mg/dL 70-110 H TESTED AT [place] [address] ([facility]) (test code = [facility] 1538) [address] BASIC METABOLIC [id number] 05:14:00 Test Item Value Reference Range Interpretation [...] APPLICABLE FOR DIALYSIS PATIEN TS. HEMOGLOBIN AND [id number] 05:02:00 Test Item Value Reference Range Interpretation Comments HEMOGLOBIN (BEAKER) (test code = 7.9 GM/DL 11.2-15.7 L 410) HEMATOCRIT (BEAKER) (test code = 25.5 % 34.1-44.9 L 411) POCT-GLUCOSE [id number] 22:05:00 Test Item Value Reference Range Interpretation Comments POC-GLUCOSE METER 235 mg/dL 70-110 H TESTED AT [place] [address] ([facility]) (test code = GIRISH Celaya [place] 1538) [address] POCT-GLUCOSE [id number] 21:56:00 Test Item Value Reference Range Interpretation Comments POC-GLUCOSE METER 274 mg/dL 70-110 H TESTED AT [place] [address] ([facility]) (test code = [facility] [place] [address]) [id number] HEMOGLOBIN AND [id number] 21:00:00 Test Item Value Reference Range Interpretation Comments HEMOGLOBIN (BEAKER) (test code = 7.9 GM/DL 11.2-15.7 L 410) HEMATOCRIT (BEAKER) (test code = 26.1 % 34.1-44.9 L 411) POCT-GLUCOSE [id number] 17:28:00 Test Item Value Reference Range Interpretation Comments POC-GLUCOSE METER 291 mg/dL 70-110 H TESTED AT [place] [id number] ([facility]) (test code = [facility] [place] [address]) [address] VANCOMYCIN LEVEL, [id number] 14:15:00 Test Item Value Reference Range Interpretation Comments VANCOMYCIN TROUGH (BEAKER) (test 18.1 ug/mL 10.0-20.0 code = 522) HEMOGLOBIN AND [id number] 13:53:00 Test Item Value Reference Range Interpretation Comments HEMOGLOBIN (BEAKER) (test code = 8.6 GM/DL 11.2-15.7 L 410) HEMATOCRIT (BEAKER) (test code = 28.0 % 34.1-44.9 L 411) POCT-GLUCOSE [id number] 06:09:00 Test Item Value Reference Range Interpretation Comments POC-GLUCOSE METER 205 mg/dL 70-110 H TESTED AT [place] [address] ([facility] (test code = GIRISH Celaya [place] [address]) [address] BASIC METABOLIC [id number] 03:51:00 Test Item Value Reference Range Interpretation [...] PATIEN TS. CBC W/PLT COUNT & AUTO [id number] 03:28:00 Test Item Value Reference Range Interpretation [...] PERCENT (BEAKER) (test code = 2801) POCT-GLUCOSE [id number] 00:46:00 Test Item Value Reference Range Interpretation Comments POC-GLUCOSE METER 331 mg/dL 70-110 H TESTED AT [facility] 6720 (BEAKER) (test code = GIR[place] Celaya [facility] 1538) [address] HEMOGLOBIN AND [id number] 23:35:00 Test Item Value Reference Range Interpretation Comments HEMOGLOBIN (BEAKER) (test code = 8.0 GM/DL 11.2-15.7 L 410) HEMATOCRIT (BEAKER) (test code = 24.9 % 34.1-44.9 L 411) POCT-GLUCOSE [id number] 18:09:00 Test Item Value Reference Range Interpretation Comments POC-GLUCOSE METER 391 mg/dL 70-110 H Notified Belia Adams MD/TESTED (BEAKER) (test code = AT [facility] 6720 [facility] 1538) [facility] 7703 0 HEMOGLOBIN AND [id number] 16:39:00 Test Item Value Reference Range Interpretation Comments HEMOGLOBIN (BEAKER) (test code = 6.7 GM/DL 11.2-15.7 L 410) HEMATOCRIT (BEAKER) (test code = 22.4 % 34.1-44.9 L 411) POCT-GLUCOSE [id number] 12:39:00 Test Item Value Reference Range Interpretation Comments POC-GLUCOSE METER 238 mg/dL 70-110 H TESTED AT [facility] 6720 (BEAKER) (test code = [place] 1538) [address] HEMOGLOBIN AND [id number] 11:15:00 Test Item Value Reference Range Interpretation Comments HEMOGLOBIN (BEAKER) (test code = 7.5 GM/DL 11.2-15.7 L 410) HEMATOCRIT (BEAKER) (test code = 24.9 % 34.1-44.9 L 411) CBC W/PLT COUNT & AUTO [id number] 07:49:00 Test Item Value Reference Range Interpretation [...] PERCENT (BEAKER) (test code = 2801) POCT-GLUCOSE [id number] 06:45:00 Test Item Value Reference Range Interpretation Comments POC-GLUCOSE METER 205 mg/dL 70-110 H TESTED AT [facility] 6720 (BEAKER) (test code = [place] 1538) [address] LACTIC ACID, VENOUS, WHOLE [id number] 01:37:00 Test Item Value Reference Range Interpretation Comments LACTATE BLOOD VENOUS (2) (BEAKER) 1.9 mmol/L 0.5-2.2 (test code = 2872) Effective 07/31/2015: Units/Reference Range ChangeNew: 0.5-2.2 mmol/L Previous: 5- 20 mg/dLCOMPREHENSIVE METABOLIC [id number] 00:19:00 Test Item Value Reference Range Interpretation [...] S NOT APPLICABLE FOR DIALYSIS PATIEN TS. [id number] 00:17:00 Test Item Value Reference Range Interpretation Comments PHOSPHORUS (BEAKER) (test code = 3.2 mg/dL 2.3-4.7 604) [id number] 00:17:00 Test Item Value Reference Range Interpretation Comments MAGNESIUM (BEAKER) (test code = 2.1 mg/dL 1.6-2.6 627) POCT-GLUCOSE [id number] 00:17:00 Test Item Value Reference Range Interpretation Comments POC-GLUCOSE METER 200 mg/dL 70-110 H TESTED AT [facility] 6720 (BEAKER) (test code = [place] 1538) [address] PROTHROMBIN [id number] 00:07:00 Test Item Value Reference Range Interpretation [...] mechanical heart valves.CBC W/PLT COUNT & AUTO [id number] 00:03:00 Test Item Value Reference Range Interpretation [...] PERCENT (BEAKER) (test code = 2801) POCT-GLUCOSE [id number] 11:41:00 Test Item Value Reference Range Interpretation Comments POC-GLUCOSE METER 259 mg/dL 70-110 H TESTED AT [facility] 6720 [facility] ([facility] = [facility]38[facility] [address] [id number] 07:35:00 Test Item Value Reference Range Interpretation Comments PHOSPHORUS (BEAKER) (test code = 3.5 mg/dL 2.3-4.7 604) [id number] 07:35:00 Test Item Value Reference Range Interpretation Comments MAGNESIUM (BEAKER) (test code = 1.6 mg/dL 1.6-2.6 627) BASIC METABOLIC [id number] 07:35:00 Test Item Value Reference Range Interpretation [...] NOT APPLICABLE FOR DIALYSIS PATIEN TS. POCT-GLUCOSE [id number] 07:33:00 Test Item Value Reference Range Interpretation Comments POC-GLUCOSE METER 247 mg/dL 70-110 H TESTED AT [facility] 6720 [facility] (test code = [facility] 1538) [address] CBC W/PLT COUNT & AUTO [id number] 06:53:00 Test Item Value Reference Range Interpretation [...] PERCENT (BEAKER) (test code = 2801) POCT-GLUCOSE [id number] 21:09:00 Test Item Value Reference Range Interpretation Comments POC-GLUCOSE METER 398 mg/dL 70-110 H Patient on insulin (BEAKER) (test code = Drip/T ESTED AT [facility] 1538) 6720 [facility] [address] POCT-GLUCOSE [id number] 17:42:00 Test Item Value Reference Range Interpretation Comments POC-GLUCOSE METER 341 mg/dL 70-110 H TESTED AT [facility] 67 ([facility]) (test code = [facility] 1538) [address] POCT-GLUCOSE [id number] 12:03:00 Test Item Value Reference Range Interpretation Comments POC-GLUCOSE METER 285 mg/dL 70-110 H TESTED AT [place] [address] ([facility]) (test code = [facility] 1538) [address] POCT-GLUCOSE [id number] 06:11:00 Test Item Value Reference Range Interpretation Comments POC-GLUCOSE METER 335 mg/dL 70-110 H TESTED AT [facility] 67 ([facility]) (test code = [facility] 1538) [address] [id number] 05:12:00 Test Item Value Reference Range Interpretation Comments PHOSPHORUS (BEAKER) (test code = 4.0 mg/dL 2.3-4.7 604) [id number] 05:12:00 Test Item Value Reference Range Interpretation Comments MAGNESIUM (BEAKER) (test code = 1.5 mg/dL 1.6-2.6 L 627) BASIC METABOLIC [id number] 05:12:00 Test Item Value Reference Range Interpretation [...] PATIEN TS. CBC W/PLT COUNT & AUTO [id number] 04:40:00 Test Item Value Reference Range Interpretation [...] PERCENT (BEAKER) (test code = 2801) POCT-GLUCOSE [id number] 21:37:00 Test Item Value Reference Range Interpretation Comments POC-GLUCOSE METER 271 mg/dL 70-110 H TESTED AT [place] [address] ([facility]) (test code = [place] [facility] 1538) [address] POCT-GLUCOSE [id number] 17:40:00 Test Item Value Reference Range Interpretation Comments POC-GLUCOSE METER 273 mg/dL 70-110 H TESTED AT [place] [address] ([facility]) (test code = [place] [facility] 1538) [address] POCT-GLUCOSE [id number] 12:52:00 Test Item Value Reference Range Interpretation Comments POC-GLUCOSE METER 303 mg/dL 70-110 H TESTED AT [place] [address] ([facility]) (test code = [place] [facility] 1538) [address] POCT-GLUCOSE [id number] 08:44:00 Test Item Value Reference Range Interpretation Comments POC-GLUCOSE METER 306 mg/dL 70-110 H Notified R Jose FELIX/TESTED ([facility]) (test code = AT [address] 1538) [facility] 7703 0 [id number] 04:53:00 Test Item Value Reference Range Interpretation Comments PHOSPHORUS (BEAKER) (test code = 4.0 mg/dL 2.3-4.7 604) [id number] 04:53:00 Test Item Value Reference Range Interpretation Comments MAGNESIUM (BEAKER) (test code = 1.7 mg/dL 1.6-2.6 627) BASIC METABOLIC [id number] 04:53:00 Test Item Value Reference Range Interpretation [...] PATIEN TS. CBC W/PLT COUNT & AUTO [id number] 04:38:00 Test Item Value Reference Range Interpretation [...] PERCENT (BEAKER) (test code = 2801) POCT-GLUCOSE [id number] 21:24:00 Test Item Value Reference Range Interpretation Comments POC-GLUCOSE METER 307 mg/dL 70-110 H Notified R Jose MD/TESTED ([facility]) (test code = AT [place] [address] [address] [facility]8) [facility] 7703 0 POCT-GLUCOSE [id number] 17:52:00 Test Item Value Reference Range Interpretation Comments POC-GLUCOSE METER 224 mg/dL 70-110 H TESTED AT [place] [address] ([facility]) (test code = GIR[place] Celaya [facility] 1538) [address] POCT-GLUCOSE [id number] 12:46:00 Test Item Value Reference Range Interpretation Comments POC-GLUCOSE METER 250 mg/dL 70-110 H TESTED AT [place] [address] ([facility]) (test code = [place]aya [facility] 1538) [address] POCT-GLUCOSE [id number] 08:44:00 Test Item Value Reference Range Interpretation Comments POC-GLUCOSE METER 319 mg/dL 70-110 H Notified R N MD/TESTED (BEAKER) (test code = AT [facility] [address] [place] 1538) [place] [address] [id number] 05:35:00 Test Item Value Reference Range Interpretation Comments PHOSPHORUS (BEAKER) (test code = 3.8 mg/dL 2.3-4.7 604) [id number] 05:35:00 Test Item Value Reference Range Interpretation Comments MAGNESIUM (BEAKER) (test code = 1.8 mg/dL 1.6-2.6 627) BASIC METABOLIC [id number] 05:35:00 Test Item Value Reference Range Interpretation [...] PATIEN TS. CBC W/PLT COUNT & AUTO [id number] 04:52:00 Test Item Value Reference Range Interpretation [...] PERCENT (BEAKER) (test code = 2801) POCT-GLUCOSE [id number] 21:33:00 Test Item Value Reference Range Interpretation Comments POC-GLUCOSE METER 195 mg/dL 70-110 H TESTED AT [facility] 67 (BEAKER) (test code = [place] 1538) [address] POCT-GLUCOSE [id number] 20:09:00 Test Item Value Reference Range Interpretation Comments POC-GLUCOSE METER 268 mg/dL 70-110 H TESTED AT [place] [address] (BEAKER) (test code = [place] 1538) [address] POCT-GLUCOSE [id number] 17:13:00 Test Item Value Reference Range Interpretation Comments POC-GLUCOSE METER 400 mg/dL 70-110 HH TESTED AT [place] [address] (BEAKER) (test code = [place] 1538) [address] POCT-GLUCOSE [id number] 10:55:00 Test Item Value Reference Range Interpretation Comments POC-GLUCOSE METER 216 mg/dL 70-110 H TESTED AT [place] [address] (BEAKER) (test code = [place] [facility] 1538) [address] POCT-GLUCOSE [id number] 07:07:00 Test Item Value Reference Range Interpretation Comments POC-GLUCOSE METER 240 mg/dL 70-110 H [facility] [place] [address] [facility] (test code = [place] [facility] 1538) [address] POCT-GLUCOSE [id number] 06:13:00 Test Item Value Reference Range Interpretation Comments POC-GLUCOSE METER 249 mg/dL 70-110 H TESTED AT [place] [address] [facility] (test code = [place]IR[place] Celaya [facility] 1538) [address] [id number] 05:36:00 Test Item Value Reference Range Interpretation Comments PHOSPHORUS (BEAKER) (test code = 3.5 mg/dL 2.3-4.7 604) [id number] 05:36:00 Test Item Value Reference Range Interpretation Comments MAGNESIUM (BEAKER) (test code = 1.7 mg/dL 1.6-2.6 627) BASIC METABOLIC [id number] 05:36:00 Test Item Value Reference Range Interpretation [...] PATIEN TS. CBC W/PLT COUNT & AUTO [id number] 05:19:00 Test Item Value Reference Range Interpretation [...] (BEAKER) (test code = 2801) COMPREHENSIVE METABOLIC [id number] 23:04:00 Test Item Value Reference Range Interpretation [...] NOT APPLICABLE FOR DIALYSIS PATIEN TS. PROTHROMBIN [id number] 22:57:00 Test Item Value Reference Range Interpretation Comments PROTIME (BEAKER) (test code = 14.1 seconds 11.7-14.7 759) INR (BEAKER) (test code = 370) 1.1 <=5.9 RECOMMENDED COUMADIN/WARFARIN INR THERAPY RANGESSTANDARD DOSE: 2.0 - 3.0 Includes: PROPHYLAXIS for venous thrombosis, systemic embolization; TREATMENT for venous thrombosis and/or pulmonary embolus.HIGH RISK: Target INR is 2.5-3.5 for patients with mechanical heart valves.CBC W/PLT COUNT & AUTO [id number] 22:51:00 Test Item Value Reference Range Interpretation [...] POC, COVID 19 Antigen + Flu by SofiaPOC, COVID 19 Antigen + Flu by Pam"
[2022-01-24 21:11] LABS: Hematocrit 22.1 % (36.0-45.0); Lymphocytes % 12.4 % (15.3-44.8); MPV 8.2 fL (7.6-11.3)
--- NOTE | 2022-01-24 21:12 | RAD REPORT ---
EXAM DESCRIPTION: RAD - Chest Single View - 01/24/2022 8:33 pm CLINICAL HISTORY: blood in stool, abdominal pain COMPARISON: Portable 01/11/2022 TECHNIQUE: AP portable chest image was obtained 01/24/2022 8:33 pm . FINDINGS: Lungs are clear. Lung markings are similar to comparison. Heart and vasculature are normal . No measurable pleural effusion and no pneumothorax. No acute bony abnormality seen. No acute aortic findings suspected. IMPRESSION: No acute cardiopulmonary process.
[2022-01-24 21:24] LABS: Protime INR 0.93
[2022-01-24 21:31] LABS: ALT/SGPT 21 U/L (12-78); Albumin 2.9 g/dL (3.4-5.0); Alkaline Phosphatase 80 U/L (45-117); BUN Blood Urea Nitrogen 19 mg/dL (7-18); Bicarbonate 27 mmol/L (21-32); Bilirubin Total 0.3 mg/dL (0.2-1.0); Glomerular Filtration Rate 46 ml/min (=/>90); Glucose Level 347 mg/dL (74-106); NT PRO-BNP 666 pg/mL (<450); Protein, Total 6.2 g/dL (6.4-8.2); Sodium Level 134 mmol/L (136-145); Troponin High Sensitivity 11.7 pg/mL (<58.9)
[2022-01-24 21:32] LABS: AST/SGOT 29 U/L (15-37); Bilirubin Direct < 0.1 mg/dL (0-0.2); Magnesium 1.9 mg/dL (1.8-2.4); Potassium 4.4 mmol/L (3.5-5.1)
--- NOTE | 2022-01-24 22:38 | EDPHYS ---
Physician Documentation [facility] Name: Sia Salazar Age: 76 yrs Sex: Female : 1945 Arrival Date: 01/24/2022 Time: 19:55 Bed 16 Private MD: ED Physician Celsa Gamble HPI: 01/24 20:25 This 76 yrs old Female presents to ER via Wheelchair with complaints of Black/Tarry cp Stools. 20:25 The patient presents to the emergency department with rectal bleeding, melena, in a cp single episode. Onset: The symptoms/episode began/occurred today. Abdominal pain: none is appreciated. 20:25 Associated signs and symptoms: Pertinent negatives: chest pain, diarrhea, dizziness cp when standing, fever, shortness of breath, syncope, near-syncope, vomiting. Severity of symptoms: in the emergency department the symptoms are unchanged. The patient has experienced similar episodes in the past, a few times. Patient reports recent hospitalization for GI bleed in which she received 3 units of blood. Historical: - Allergies: 19:57 Actos; hb 19:57 Bactrim; hb 19:57 Clindamycin; hb 19:57 Codeine; hb 19:57 Crestor; hb 19:57 Darvocet-N 100; hb 19:57 Erythromycin; hb 19:57 Glimepiride; hb 19:57 Glipizide; hb 19:57 Iodinated Contrast Media - IV Dye; hb 19:57 Januvia; hb 19:57 Lipitor; hb 19:57 metformin; hb 19:57 Morphine; hb 19:57 PENICILLINS; hb 19:57 Sulfa (Sulfonamide Antibiotics); hb 19:57 Wellbutrin; hb - Immunization history:: Adult Immunizations up to date. - Social history:: Smoking status: Patient reports the use of cigarette tobacco products, smokes one-half pack cigarettes per day. ROS: 20:30 Constitutional: Negative for body aches, chills, fever, poor PO intake. cp 20:30 Eyes: Negative for injury, pain, redness, and discharge. cp 20:30 ENT: Negative for drainage from ear(s), ear pain, sore throat, difficulty swallowing, difficulty handling secretions. 20:30 Cardiovascular: Negative for chest pain. 20:30 Respiratory: Negative for cough, shortness of breath, wheezing. 20:30 Abdomen/GI: Positive for black/tarry stool, Negative for abdominal pain, vomiting, diarrhea, constipation. 20:30 Back: Negative for pain at rest, pain with movement. 20:30 : Negative for urinary symptoms. 20:30 Neuro: Negative for altered mental status, dizziness, headache, syncope, near syncope, weakness. 20:30 All other systems are negative. Exam: 20:35 Constitutional: The patient appears in no acute distress, alert, awake, cp non-diaphoretic, non-toxic, well developed, well nourished. 20:35 Head/Face: Normocephalic, atraumatic. cp 20:35 Eyes: Periorbital structures: appear normal, Conjunctiva: normal, no exudate, no injection, Sclera: no appreciated abnormality, Lids and lashes: appear normal, bilaterally. 20:35 ENT: External ear(s): are unremarkable, Nose: is normal, Mouth: Lips: moist, Oral mucosa: pink and intact, moist, Posterior pharynx: Airway: no evidence of obstruction, patent. 20:35 Chest/axilla: Inspection: normal. 20:35 Cardiovascular: Rate: normal, Rhythm: regular, Edema: is not appreciated, JVD: is not appreciated. 20:35 Respiratory: the patient does not display signs of respiratory distress, Respirations: normal, no use of accessory muscles, no retractions, labored breathing, is not present, Breath sounds: are clear throughout, no decreased breath sounds, no stridor, no wheezing. 20:35 Abdomen/GI: Inspection: obese Bowel sounds: active, all quadrants, Palpation: soft, in all quadrants, nontender, in all quadrants. 20:35 Back: pain, is absent, ROM is normal. 20:35 Neuro: Orientation: to person, place \T\ time. Mentation: is normal, Motor: moves all fours, strength is normal, Gait: is steady. 22:15 : Rectal exam: Stool: black, Guaiac testing: results were positive for occult blood. cp 22:55 ECG was reviewed by the Attending Physician. cp Vital Signs: 19:56 BP 143 / 57; Pulse 88; Resp 16; Temp 97.4; Pulse Ox 99% on R/A; Weight 61.23 kg; Height hb 5 ft. 2 in. (157.48 cm); Pain 5/10; 21:30 BP 142 / 45; Pulse 84; Resp 15; Pulse Ox 98% on R/A; hb 22:00 BP 144 / 49; Pulse 88; Resp 17; Pulse Ox 99% ; hb 22:00 BP 156 / 51; Pulse 82; Resp 18; Pulse Ox 99% on R/A; hb 19:56 Body Mass Index 24.69 (61.23 kg, 157.48 cm) hb MDM: 20:00 Patient medically screened. cp 01/24 20:20 Order name: Basic Metabolic Panel; Complete Time: 21:42 cp 01/24 20:20 Order name: CBC with Diff; Complete Time: 21:42 cp 01/24 21:42 Interpretation: Normal except: RBC 2.80; HGB 7.3; HCT 22.1; MCV 79.0; MCH 26.0; RDW cp 20.0; LYM% 12.4. 01/24 20:20 Order name: LFT's; Complete Time: 21:42 cp 01/24 20:20 Order name: Magnesium; Complete Time: 21:42 cp 01/24 20:20 Order name: NT PRO-BNP; Complete Time: 21:42 cp 01/24 20:20 Order name: PT-INR; Complete Time: 21:42 cp 01/24 20:20 Order name: Troponin HS; Complete Time: 21:42 cp 01/24 20:20 Order name: Ptt, Activated; Complete Time: 21:42 cp 01/24 21:43 Order name: Type And Screen cp 01/24 21:43 Order name: Lactate; Complete Time: 23:24 cp 01/24 21:43 Order name: Procalcitonin cp 01/24 21:43 Order name: Blood Culture Adult (2) cp 01/24 21:44 Order name: Urine Microscopic Only cp 01/24 22:18 Order name: SARS RAPID; Complete Time: 23:24 mw2 01/24 20:20 Order name: XRAY Chest (1 view); Complete Time: 21:42 cp 01/24 20:20 Order name: EKG; Complete Time: 20:21 cp 01/24 20:20 Order name: Cardiac monitoring; Complete Time: 22:54 cp 01/24 20:20 Order name: EKG - Nurse/Tech; Complete Time: 22:54 cp 01/24 22:39 Order name: Abdomen ; Complete Time: 23:24 EDMS 01/24 23:13 Order name: Urine Dipstick-Ancillary; Complete Time: 23:24 EDMS 01/24 20:20 Order name: IV Saline Lock; Complete Time: 21:05 cp 01/24 20:20 Order name: Labs collected and sent; Complete Time: 21:05 cp 01/24 20:20 Order name: O2 Per Protocol; Complete Time: 23:35 cp 01/24 20:20 Order name: O2 Sat Monitoring; Complete Time: 23:35 cp 01/24 21:44 Order name: Urine Dipstick-Ancillary (obtain specimen); Complete Time: 23:15 cp EC:55 Rate is 81 beats/min. Rhythm is regular. AR interval is prolonged at 226 msec. QRS cp interval is normal. QT interval is normal. T waves are Inverted in lead aVR. Interpreted by me. Reviewed by me. Administered Medications: 22:00 Drug: Insulin Regular Human 10 units {Co-Signature: hb (Gricel Rueda RN).} Route: ke1 IVP; Site: right upper arm; 23:00 Drug: Ativan (LORazepam) 0.5 mg Route: IVP; Site: right hand; ke1 23:24 Drug: NS 0.9% 500 ml Route: IV; Rate: 75 ml/hr; Site: right hand; hb 23:25 Drug: ProTONIX (pantoprazole) 40 mg Route: IVP; Site: right hand; hb 23:25 Drug: ProTONIX (pantoprazole) 8 mg/hr Route: IV; Rate: 25 ml/hr; Site: right hand; hb 23:25 Drug: NS 0.9% 250 ml Route: IV; Rate: bolus; Site: right hand; hb 23:30 Drug: Nicoderm CQ Patch 21 mg/24 hr 21 mg Route: Transdermal; Site: anterior chest wall;ke1 Disposition Summary: 01/24/22 22:37 Transfer Ordered Transfer Location: [facility] cp Reason: Higher level of care cp Condition: Stable cp Problem: new cp Symptoms: have improved cp Accepting Physician: Doctor(01/25/22 01:21) mw2 Diagnosis - GI Bleed/ Gastrointestinal hemorrhage, unspecified cp - Iron deficiency anemia secondary to blood loss (chronic) cp Forms: - Medication Reconciliation Form cp - SBAR form cp Signatures: Dispatcher [employer] EDMS Roderick Boswell PA PA cp Baxter, Heather, PITER DUMAS Marito Rivas 2 Alyssa Esposito RN RN ke1 Gricel Rueda RN Corrections: (The following items were deleted from the chart) 22:39 22:00 Abdomen Pelvis W Con+CT.RAD.BRZ ordered. EDNC EDMS 01/25 01:21 01/24 22:37 Doctor lori knight2
--- NOTE | 2022-01-24 22:38 | ER ---
Nurse's Notes [facility] Name: Sai Salazar Age: 76 yrs Sex: Female : 1945 Arrival Date: 01/24/2022 Time: 19:55 Bed 16 Private MD: Diagnosis: GI Bleed/ Gastrointestinal hemorrhage, unspecified;Iron deficiency anemia secondary to blood loss (chronic) Presentation: 01/24 19:56 Chief complaint: LLQ pain and dark stool since this morning. Coronavirus screen: At this time, the client does not indicate any symptoms associated with coronavirus-19. Ebola Screen: No symptoms or risks identified at this time. Onset of symptoms was January 24, 2022. 19:56 Method Of Arrival: Wheelchair hb 19:56 Acuity: GREGG 3 hb 20:18 Risk Assessment: Do you want to hurt yourself or someone else? Patient reports no ke1 desire to harm self or others. 20:18 Initial Sepsis Screen: Does the patient meet any 2 criteria? No. Patient's initial ke1 sepsis screen is negative. Does the patient have a suspected source of infection? No. Patient's initial sepsis screen is negative. Triage Assessment: 20:17 General: Appears in no apparent distress. Behavior is appropriate for age. ke1 Historical: - Allergies: 19:57 Actos; hb 19:57 Bactrim; hb 19:57 Clindamycin; hb 19:57 Codeine; hb 19:57 Crestor; hb 19:57 Darvocet-N 100; hb 19:57 Erythromycin; hb 19:57 Glimepiride; hb 19:57 Glipizide; hb 19:57 Iodinated Contrast Media - IV Dye; hb 19:57 Januvia; hb 19:57 Lipitor; hb 19:57 metformin; hb 19:57 Morphine; hb 19:57 PENICILLINS; hb 19:57 Sulfa (Sulfonamide Antibiotics); hb 19:57 Wellbutrin; hb - Immunization history:: Adult Immunizations up to date. - Social history:: Smoking status: Patient reports the use of cigarette tobacco products, smokes one-half pack cigarettes per day. Screenin:17 Abuse screen: Denies threats or abuse. Nutritional screening: No deficits noted. ke1 Tuberculosis screening: No symptoms or risk factors identified. Fall Risk None identified. Assessment: 23:35 Reassessment: Patient appears in no apparent distress at this time. Patient and/or hb family updated on plan of care and expected duration. Pain level reassessed. Patient is alert, oriented x 3, equal unlabored respirations, skin warm/dry/pink. 01/25 00:20 Reassessment: report called to [facility] DAQUAN DUMAS. ke1 Vital Signs: 01/24 19:56 BP 143 / 57; Pulse 88; Resp 16; Temp 97.4; Pulse Ox 99% on R/A; Weight 61.23 kg; Height hb 5 ft. 2 in. (157.48 cm); Pain 5/10; 21:30 BP 142 / 45; Pulse 84; Resp 15; Pulse Ox 98% on R/A; hb 22:00 BP 144 / 49; Pulse 88; Resp 17; Pulse Ox 99% ; hb 22:00 BP 156 / 51; Pulse 82; Resp 18; Pulse Ox 99% on R/A; hb 19:56 Body Mass Index 24.69 (61.23 kg, 157.48 cm) hb ED Course: 19:55 Patient arrived in ED. am2 19:57 Triage completed. hb 19:58 Roderick Boswell PA is PHCP. cp 19:58 Celsa Gamble MD is Attending Physician. cp 19:58 Arm band placed on. hb 20:17 Alyssa Esposito, RN is Primary Nurse. ke1 20:35 XRAY Chest (1 view) In Process Unspecified. EDMS 21:04 Inserted saline lock: 22 gauge in right hand, using aseptic technique. ke1 21:05 Ptt, Activated Sent. ke1 21:05 Basic Metabolic Panel Sent. ke1 21:05 CBC with Diff Sent. ke1 21:05 LFT's Sent. ke1 21:05 Magnesium Sent. ke1 21:05 NT PRO-BNP Sent. ke1 21:05 PT-INR Sent. ke1 21:05 Troponin HS Sent. ke1 22:24 intiated a transfer with Kirk from [facility]. mw2 22:41 connected Roderick KU with the Doctor from [facility]. mw2 22:45 Abdomen In Process Unspecified. EDMS 22:54 SARS RAPID Sent. zm 23:15 Urine Microscopic Only Sent. ke1 23:32 adminstrative approval given by Too Mukherjee/ patient has been accepted to [address] to [address]/ Dr. Heredia accepted the patient in transfer/ report to be called to [phone]. 23:36 Patient has correct armband on for positive identification. hb Administered Medications: 22:00 Drug: Insulin Regular Human 10 units {Co-Signature: hb (Gricel Rueda RN).} Route: ke1 IVP; Site: right upper arm; 23:00 Drug: Ativan (LORazepam) 0.5 mg Route: IVP; Site: right hand; ke1 23:24 Drug: NS 0.9% 500 ml Route: IV; Rate: 75 ml/hr; Site: right hand; hb 23:25 Drug: ProTONIX (pantoprazole) 40 mg Route: IVP; Site: right hand; hb 23:25 Drug: ProTONIX (pantoprazole) 8 mg/hr Route: IV; Rate: 25 ml/hr; Site: right hand; hb 23:25 Drug: NS 0.9% 250 ml Route: IV; Rate: bolus; Site: right hand; hb 23:30 Drug: Nicoderm CQ Patch 21 mg/24 hr 21 mg Route: Transdermal; Site: anterior chest wall;ke1 Medication: 23:36 VIS not applicable for this client. Outcome: 22:37 ER care complete, transfer ordered by MD. sandoval 01/25 01:21 Patient left the ED. mw2 Signatures: Dispatcher [employer] EDMS Roderick Boswell PA PA cp Baxter, Heather, PITER DUMAS Morena Taylor am2 Marito Rivas mw2 Alyssa Esposito RN RN ke1 Zelda Moya RN
[2022-01-24] MEDS ORDERED: PANTOPRAZOLE 40 MG INJ ONE (22:46)
[2022-01-24] MEDS ORDERED: NA CHLORIDE 0.9% 250 ML ONE (22:46)
[2022-01-24] MEDS ORDERED: NA CHLORIDE 0.9% 500 ML ONE (22:47)
[2022-01-24] MEDS ORDERED: NICOTINE 21 MG/PAT TD ONE (22:48)
[2022-01-24] MEDS ORDERED: LORazepam 2 MG/ML VIAL ONE (22:49)
[2022-01-24] MEDS ORDERED: INSULIN -REGULAR HUMAN 50 UNIT/0.5 ML ML ONE (22:50)
--- NOTE | 2022-01-24 22:57 | RAD REPORT ---
EXAM DESCRIPTION: CT - Abdomen Pelvis Wo Contrast - 01/24/2022 10:43 pm CLINICAL HISTORY: upper GI bleed COMPARISON: Abdomen Pelvis Wo Contrast dated 03/15/2020; Abdomen Pelvis Wo Contrast dated 020 TECHNIQUE: Axial [address] imaging of the abdomen and pelvis was performed without IV contrast. No IV contrast was given because of allergy, abnormal renal function, patient refusal or physician re quest. No oral contrast given. All CT scans are performed using dose optimization technique as appropriate and may include automated exposure control or mA/KV adjustment according to patient size. FINDINGS: No suspicious findings in the lung bases. Liver size is normal. Approximately 2 centimeter rounded low-density area in the inferior right lobe of the liver is nonspecific. This is not clearly different from the prior examinations. No new liver finding. No pancreatic or peripancreatic abnormality. Spleen is unremarkable. Gallbladder is absent. No biliary tree dilatation. No hydronephrosis or suspicious renal finding. Left kidney is atrophic relative to the left. Left alma delia al fullness is present similar to prior imaging. No obstructing calculi on the left. No significant adrenal finding. Isodense renal masses and pyelonephritis cannot be excluded in the absence of IV con trast. The urinary bladder is without significant finding. Uterus and ovaries show no suspicious find ings. No dilated bowel loops or bowel wall thickening. Distal colon anastomotic site shows no acute finding . No free air, free fluid or inflammatory stranding. No mass or bulky lymphadenopathy. Patient has a pronounced laxity and thinning of the anterior abdominal wall with a low lying bowel filled pannus. T hin fascia linear surrounds the bowel. Appearance is similar to the prior imaging. Advanced disc and bone degenerative changes are present. No pathologic bone process. Prominent athero sclerotic calcifications are present. 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 Full assessment is montano ited in and there is no IV contrast administered. IMPRESSION: Non-contrast enhanced CT abdomen and pelvis imaging show no acute or emergent finding. Above detailed findings are not significantly different from February 2020 imaging. Full assessment is limited is the absence of IV contrast.
[2022-01-24 23:13] LABS: Urine Blood Negative (Negative); Urine Glucose 3+ (Negative); Urine Protein Negative (Negative); Urine Specific Gravity >=1.030 (1.005-1.030); Urine pH 6.5 (5.0-7.0)
[2022-01-24 23:17] LABS: SARS-CoV-2 Antigen Rapid Res Negative (Negative)
[2022-01-24 23:26] LABS: Urine Bacteria <20 /HPF (<20); Urine RBC <5 /HPF (None Seen)
[2022-01-25 01:42] VITALS: TEMP 97.4
[2022-01-25 01:50] VITALS: BP 156/51; O2SAT 99
--- NOTE | 2022-01-26 16:00 | EKG ---
Test Date: 2022-01-24 Test Time: 22:51:00 Drapery Sewer Hand: HARRISON MEASUREMENT RESULTS: Intervals: Rate: 81 LA: 226 QRSD: 80 QT: 372 QTc: 432 [place]: P: 70 LA: 226 QRS: 26 T: 65 INTERPRETIVE STATEMENTS: Sinus rhythm with 1st degree AV block Anteroseptal infarct, age undetermined Abnormal ECG Compared to ECG 01/11/2022 15:34:01 First degree AV block now present Sinus arrhythmia no longer present Myocardial infarct finding still present Electronically Signed On 01-26-22 15:57:56 CDT by Beltran Patel
== END 2022-01-25 01:21 | disposition short-term general hospital (02) ==
LOC: ER 19:41
DX: D50.0 Iron deficiency anemia secondary to blood loss (chronic) (principal); Z20.822 Contact with and (suspected) exposure to COVID-19; F17.210 Nicotine dependence, cigarettes, uncomplicated
CPT/HCPCS: 93005; 87040 ×2; 85025; 80048; 36415; 86900; 83735; 86850; 85610; 86901; 80076; 83605; 85730; 84484; 84145; 83880; 74176; 71045; 99284; 87811; J1815; C9113; J7050; J7040; 81003; 81015; 86870

== ENCOUNTER 2022-06-03 11:48 | Observation (INO) | payer MEDICARE ==
--- OUTSIDE RECORDS SUMMARY | 2022-06-03 12:10 | XMS REPORT | Continuity of Care Document ---
:1945 Author Organization [facility] t Address [address] [place] [address] Care Team Providers Name Role Phone SUSANA THOMSON Primary Care Physician Unavailable Susana Thomson Attending Clinician Unavailable PEARL GOEL Attending Clinician Unavailable Chinmay Cohn MD Attending Clinician LIDIA NAZARIO Attending Clinician Unavailable Darling Moran MD Attending Clinician DARLING MORAN Attending Clinician Unavailable Gricel Little MD Attending Clinician Suki FELIX, Chinmay Betancourt Attending Clinician Carol Heredia Attending Clinician Ayaan Christian MD Attending Clinician Ariel Roland MD Attending Clinician ARIEL ROLAND Attending Clinician Unavailable PEARL GOEL Attending Clinician Unavailable Litzy Gerardo MD Attending Clinician Lisa Attending Clinician Unavailable MORALES FITCH Attending Clinician Unavailable Morales Nicole Attending Clinician Lidia Nazario MD Attending Clinician Pob, [facility] Lab Main Attending Clinician Unavailable Chance Paul MD Attending Clinician CHANCE PAUL Attending Clinician Unavailable Doctor Unassigned, [place] Attending Clinician Unavailable LIBRADO ABRAMS Attending Clinician Unavailable Librado Abrams MD Attending Clinician Chela Knowles MD Attending Clinician Lab, Ang - Db Attending Clinician Unavailable CHELA KNOWLES Attending Clinician Unavailable ERNESTO CHURCHILL Attending Clinician Unavailable Sam Redding MD Attending Clinician JEN TALBERT Attending Clinician Unavailable Provider, [facility] Attending Clinician Unavailable Jen Talbert MD Attending Clinician Jose Nguyen MD Attending Clinician TANA VELEZ Attending Clinician Unavailable Tana Velez MD Attending Clinician KEISHA APARICIO Attending Clinician Unavailable Keisha Aparicio MD Attending Clinician INDIGO JIMÉNZE Attending Clinician Unavailable Lab, Adc Fam Pob I Attending Clinician Unavailable Simi Lopez Attending Clinician [facility] Attending Clinician Unavailable JOSE NGUYEN Attending Clinician Unavailable Morena Jules Attending Clinician MORENA GRAY Attending Clinician Unavailable SIMI BEAVER Attending Clinician Unavailable OLI JEFFREY K.HTirna Attending Clinician Unavailable Oli Jeffrey MD KTrinaHTrina Attending Clinician SAM REDDING Attending Clinician Unavailable , [facility] Room 1 - Attending Clinician Unavailable JOSE DUNLAP Attending Clinician Unavailable Jose Dunlap DO Attending Clinician SHENA ORR Attending Clinician Unavailable ANGELES UGALDE Attending Clinician Unavailable ADRIANA MAGALLANES Attending Clinician Unavailable WILL TINAJERO Attending Clinician Unavailable Darwin Adrian Attending Clinician PEARL GOEL Admitting Clinician Unavailable DARLING MORAN Admitting Clinician Unavailable AYAAN CHRISTIAN Admitting Clinician Unavailable Lisa Admitting Clinician Unavailable MORALES FITCH Admitting Clinician Unavailable JOSE DUNLAP Admitting Clinician Unavailable SIMI BEAVER Admitting Clinician Unavailable SHENA ORR Admitting Clinician Unavailable EDUARDO LEGER Admitting Clinician Unavailable ADRIANA MAGALLANES Admitting Clinician Unavailable WILL TINAJERO Admitting Clinician Unavailable Payers Payer Name Policy Type Policy Number Effective Date Expiration Date S ivy [facility] 2021 MGD MCR 00:00:00 [facility] 2021 MEDICARE 00:00:00 ADVANTAGE PLAN MEDICARE PART A [id number] \\T\\ B - MEDICARE MEDIGAP-GENERIC - [id number] 2016 GENERIC PAYOR 00:00:00 [facility] 2021 (MEDICARE 00:00:00 REPLACEMENT HMO) WELLCARE VALUE [id number] 2020 00:00:00 Wellcare C1 [id number] [facility] MEDICARE PART A [id number] 2011 2020 \\T\\ B 00:00:00 00:00:00 Problems [...] PAD PAD Disease Active Univers (periphera (periphera 10-16 it y of l artery l artery 00:00: [place] disease) disease) 00 Medica l Branch Stress-ind Stress-ind Disease Active U nivers uced uced 7- [place] of cardiomyop cardiomyop [place] Venous Venous Disease Active Univers insufficie insufficie 10-16 it y of ncy ncy 00:00: [place] [...] Disease Active [facility] artery artery 12[facility] disease disease 00:[facility]: Medical involving involving [facility] [place] coronary coronary artery artery Essential Essential Disease Active [facility] hypertensi hypertensi 17 Dora kes on on 00:00: Medical 00 Center Microcytic Microcytic Disease Active [facility] anemia anemia 17 [facility] 00[facility] Medical [facility] Center Gastrointe Gastrointe Disease Active [facility] stinal stinal 9-14 [facility] hemorrhage hemorrhage 00:00: Me dical , , 00 Center unspecifie unspecifie d d gastrointe gastrointe stinal stinal hemorrhage hemorrhage type type Severe Severe Disease Active [facility] sepsis sepsis 11-25 [facility] 00:00: Medical 00 Center Anemia due Anemia due Disease Active C [facility] to acute to acute 829 [facility] blood loss blood loss 00:00: Me dical 00 Center Upper GI Upper GI Disease Active [facility] t bleed bleed 8 [facility] 00:00: Medical 00 Center Angiodyspl Angiodyspl Disease Active [facility] darío of darío of 10-27 [facility] intestine intestine 00:00: [facility] jorge l with with 00 Center hemorrhage hemorrhage Acute Acute Disease Active [facility] blood loss blood loss 10-27 Dora kes anemia anemia 00:00: Medical [address] [place] [address] Upper GI Upper GI Disease Active Unive rs bleed bleed 10-23 ity of 00:00: [address] GI bleed GI bleed Disease Active [facility] t 10-23 [facility] 00:00: Medical [address] [place] [address] DSU- DSU- Diagnosis Active 2017-02-[address] [facility] oriwendy HEMATOCHEZ HEMATOCHEZ 10-01 16:16:00 l [place] R19.5, [place] R19.5, 00:00: Blaire tristan FATIGUE FATIGUE 00 R53.83, R53.83, Active 10/01/[address] [facility] Obesity Obesity Disease Active Univers (BMI (BMI 09-02 ity of 30-39.9) 30-39.9) 00:00: [address] SBO (small SBO (small Disease Active U nivers bowel bowel 09-01 ity of obstructio obstructio 00:00: Evan adams) n) [address] [place] [address] F/U F/U Diagnosis Active 2016-10-01 Mem oria Active 07-02 10:31:00 l 07/02/2016 00:00: Gilbert adams [address] CONSULT CONSULT Diagnosis Active 2016-07-02 Memoria Active 05-06 11:37:00 l 05/06/2016 00:00: Gilbert adams [address] Depression Depression Disease Active U nivers ity of [facility] [id number] Right-side Problem Co mmon d back Spirit pain, - CHI unspecifie St d back [facility] location, Medical unspecifie Center d chronicity Anxiety Anxiety Problem [facility] Osteoporos Osteoporos Problem C ommon is is [facility] Depression Depression Problem C ommon Spirit [facility] COPD - COPD Problem Common Chronic (chronic Spirit obstructiv obstructiv - CHI e e St pulmonary pulmonary Luke s disease disease) [facility] [id number] Ventral Problem Commo n hernia Spirit without - [facility] Stroke Stroke Problem [facility] [id number] Chronic Problem Commo n blood loss Spirit anemia - [facility] White Other Problem Common blood cell specified Spi rit disorder disease of - CH I white [facility] Seasonal Seasonal Problem Commo n allergic allergic Spirit rhinitis reaction - [facility] Disorder Circulatio Problem Com mon of n problem Spirit cardiovasc - CHI ular [facility] [id number] Abdominal Problem Comm on pain, Spirit unspecifie - CHI d [facility] [id number] Encounter Problem Com mon for Spirit tobacco - CHI use [facility] [id number] Uncontroll Problem Co mmon ed type 2 Spirit diabetes - CHI mellitus [facility] hyperglyce Medica [facility] Peripheral Peripheral Problem C ommon neuropathy neuropathy Sp tarun - [facility] [id number] Insomnia, Problem Com mon unspecifie Spirit d type - [facility] [id number] Hammer toe Problem Co mmon of right Spirit foot - [facility] Iron Fe Problem Common deficiency deficiency Sp tarun anemia anemia - [facility] [id number] Primary Problem Commo n osteoarthr Spirit itis - CHI involving [facility] [id number] Cardiomyop Problem Com mon athy, Spirit unspecifie - CHI d type [facility] [id number] Decreased Problem Comm on diastolic Spirit blood - [facility] pressure [facility] [id number] Pneumonia Problem Com mon due to Spirit infectious - [facility] organism[facility] , unspecifie d part of lung [id number] Arterioven Problem Co mmon ous Spirit malformati - CHI on small bowel [facility] [id number] Tobacco Problem Commo n use Spirit disorder - [facility] [id number] Wheezing Problem Commo n [facility] [id number] Tremor Problem [facility] Anemia due Anemia due Problem C ommon to blood to blood Spirit loss loss - [facility] Arterioven Arterioven Problem C ommon ous ous Spirit malformati malformati - CHI on on, other [facility] [id number] Depression Problem Com mon , major, Spirit single - CHI episode, [facility] [id number] Constipati Problem Com mon on, Spirit unspecifie - [facility] [id number] Mixed Problem Common hyperlipid Spirit emia - [facility] [id number] Chronic Problem Commo n kidney Spirit disease, - CHI stage 3 [facility] [id number] Type 2 Problem Commo n 05 diabetes Spirit mellitus - CHI with [facility] kidney Center disease [id number] History of Problem C ommon [address] allergic Spirit reaction - [facility] [id number] Chronic Problem Commo n pain Spirit syndrome - [facility] Hyperlipid Hyperlipid Problem C ommon emia emia [facility] Type 2 Type 2 Problem Common diabetes diabetes Spirit mellitus mellitus - CHI without without St complicati complicati Dora kes on [facility] Anemia Anemia Problem Resolve 2016-10-04 Mem oria (disorder) (disorder) d 00:05:00 l Resolved Nader Problem 10/04/[address] [facility] Congenital Congenita Problem Resolve 2016-10-04 Memoria arterioven l d 00:05:00 l ous arterioven Gilbert n malformati ous on malformati (disorder) on (disorder) Resolved Problem 10/04/[address] [facility] Gallbladde Gallbladd Problem Resolve 2016-10-04 Memoria r calculus er d 00:05:00 l (disorder) calculus Herm kun (disorder) Resolved Problem 10/04/[address] [facility] Gout Gout Problem Resolve 2016-10-04 Jim maya (disorder) (disorder) d 00:05:00 l Resolved [place]aton Problem 10/04/[address] [facility] History of History Problem Resolve 2016-10-04 Memoria - TIA of - TIA d 00:05:00 l (context-d (context-d Bill wilde ependent ependent category) category) Resolved Problem 10/04/[address] [facility] Asthma Asthma Problem Resolve 2016-10-04 Mem oria (disorder) (disorder) d 00:05:00 l Resolved [place] Problem 10/04/[address] [facility] Arthritis Arthritis Problem Resolve 2016-10-04 Memoria (disorder) (disorder) d 00:05:00 l Resolved [place] Problem 10/04/[address] [facility] Peripheral Periphera Problem Resolve 2016-10-04 Memoria vascular l vascular d 00:05:00 l disease disease [place] (disorder) (disorder) Resolved Problem 10/04/[address] [facility] Polyp of Polyp of Problem Resolve 2016-10-04 Memoria colon colon d 00:05:00 l (disorder) (disorder) He rmann Resolved Problem 10/04/[address] [facility] ENCNTR FOR ENCNTR Diagnosis Active 2016-10-01 Memoria GENERAL FOR 10:31:00 l ADULT GENERAL [place] MEDICAL ADULT EXAM W/ MEDICAL EXAM W/ Active [facility] OTHER OTHER Diagnosis Active 2017-02-10 Mem oria FECAL FECAL 16:16:00 l ABNORMALIT ABNORMALIT He rmann IES IES Active [facility] Allergies, Adverse Reactions, Alerts Allergy Allergy Status Severity Reaction(s) Onset Inactive Treating Comm ents Source Name Type Date Date Clinician Codeine Propensi Active 2021-03 [facility] ty to 0-27 College adverse 00:00: of reaction 00 Medicin s to e drug Glimepir Propensi Active 2021-03 [facility] diane ty to 0-27 College adverse 00:00: of reaction 00 Medicin s to e drug Iodine Propensi Active 2021-03 [facility] ty to 0-27 College adverse 00:00: of reaction 00 Medicin s to e drug Opioid Propensi Active 2021-03 [facility] Analgesi ty to 0-27 College cs adverse 00:00: of reaction 00 Medicin s to e drug Sulfa Propensi Active 2021-03 [facility] Antibiot ty to 0-27 College ics adverse 00:00: of reaction 00 Medicin s to e drug Opioid Propensi Active 2021-03 [facility] Analgesi ty to 0-27 College cs adverse 00:00: of reaction 00 Medicin s to e drug Atorvast Propensi Active 2021-03 [facility] atin ty to 0-27 College adverse 00:00: of reaction 00 Medicin s to e drug Clindamy Propensi Active 2021-03 [facility] fabián ty to 0-27 College adverse 00:00: of reaction 00 Medicin s to e drug HYDROXYZ DRUG Active Hives 2019-03 Univers INE INGREDI 0-12 ity of 00:00: [place] 00 Medical Branch Hydroxyz Propensi Active Hives 2019- Univer s ine ty to 0-12 ity of adverse 00:00: [place] reaction 00 Medical s Branch METRONID DRUG Active High Hives 2018- Univers AZOLE INGREDI 0-15 ity of 00:00: [place] 00 Medical Branch Atorvast Propensi Active Hives [facility] at[facility] ty to 27 [facility] adverse 00:00: Medical reaction 00 Center s Clindamy Propensi Active [facility] fabián ty to 10-22 [facility] adverse 00:00: Medical reaction 00 Center s Codeine Propensi Active Itching [facility] ty to 727 [facility] adverse 00:00: Medical reaction 00 Center [...] s Peg Propensi Active Anaphylaxis [facility] 3350-[id number] ty to 10-22 [facility] ctrolyte adverse 00:00: Medical s reaction 00 Center s Iodine Propensi Active Anaphylaxis [facility] And ty to 10-22 [facility] Iodide adverse 00:00: Medical Containi reaction 00 Center ng s Products Morphine Propensi Active Itching [facility] t ty to 7 [facility] adverse 00:00: Medical reaction 00 Center s Penicill Propensi Active Hives [facility] ins ty to 7 [facility] adverse 00:00: Medical reaction 00 Center s Pioglita Propensi Active [facility] zone ty to 727 [facility] adverse 00:00: Medical reaction 00 Center s Rosuvast Propensi Active [facility] atin ty to 727 [facility] adverse 00:00: Medical reaction 00 Center s Sitaglip Propensi Active [facility] tin ty to 7 [facility] adverse 00:00: Medical reaction 00 Center [...] Allergy Active [facility] ATIN 10-22 00:00: 00 SITAGLIP Allergy Active [facility] TIN 10-22 00:00: [...] 10-22 00:00: 00 CODEINE Allergy Active Itching 2017-0 [facility] 10-22 00:00: 00 ERYTHROM Allergy Active Hives 2017-0 [facility] YCIN 10-22 00:00: 00 Penicill Propensi Active Hives 2017-[address] ins ty to 10-22 [facility] adverse 00:00: Medical reaction 00 Center s Sulfa Propensi Active Hives 2017-[address] (Sulfona ty to 10-22 [facility] mide adverse 00:00: Medical Antibiot reaction 00 Center ics) s PROPOXYP DRUG Active High Anaphylaxis 2017- Uni vers HENE 10-22 ity of N-ACETAM 00:00: [place] INOPHEN 00 Medical Branch BUPROPIO DRUG Active Other-Cmnt 2017-0 Univ ers N HCL INGREDI 10-22 ity of 00:00: [place] 00 Medical Branch PIOGLITA DRUG Active Unknown-Cmnt 2017-0 Un soni ZONE INGREDI 10-22 ity of 00:00: [place] 00 Medical Branch TRIMETHO DRUG Active Unknown-Cmnt 2017-0 Un soni PRIM INGREDI 10-22 ity of 00:00: [place] 00 Medical Branch PIOGLITA DRUG Active Hives 20170 Univers ZONE HCL INGREDI 09-01 ity of [...] Branch GLIMEPIR DRUG Active Hives 2017-0 Univers DIANE INGREDI 09-01 ity of 00:00: [...] 00 Medical Branch PENICILL DRUG Active Swelling 2017- Univer s IN INGREDI 09-01 ity of 00:00: [place] 00 Medical Branch SULFA Drug Active Hives 2017-0 Univers (SULFONA Class 09-01 ity of MIDE 00:00: [place] ANTIBIOT 00 Medical ICS) Branch SULFAMET DRUG Active Hives 20170 Univers HOXAZOLE INGREDI 09-01 ity of 00:00: [place] 00 Medical Branch BUPROPIO DRUG Active Hives 2017-0 Univers N INGREDI 09-01 ity of 00:00: [place] 00 Medical Branch CODEINE DRUG Active Low ITCHING 2017-0 Univers INGREDI 09-01 ity of 00:00: [place] 00 Medical Branch MORPHINE DRUG Active Low ITCHING 2017-0 Univers INGREDI 09-01 ity of 00:00: [place] 00 Medical Branch Sulfa Propensi Active Hives 20170 Univers (Sulfona ty to 09-01 ity of mide adverse 00:00: [place] Antibiot reaction 00 Medica l ics) s Branch Pioglita Propensi Active Hives 2017 Univer s zone Hcl ty to 09-01 ity of adverse 00:00: [place] reaction 00 Medical s Branch Clindamy Propensi Active Itching 20170 Unive rs fabián ty to 09-01 ity of adverse 00:00: [place] reaction 00 Medical s Branch Codeine Propensi Active Itching 20170 Univer s ty to 09-01 ity of adverse 00:00: [place] reaction 00 Medical s to Branch drug Rosuvast Propensi Active Itching 2017-0 Unive rs atin ty to 09-01 ity of Calcium adverse 00:00: [place] reaction 00 Medical s Branch Erythrom Propensi Active Other - See 2017 U nivers ycin ty to comments 09-01 ity of adverse 00:00: [place] reaction 00 Medical s Branch Glimepir Propensi Active Hives 20170 Univer s diane ty to 09-01 ity of adverse 00:00: [place] reaction 00 Medical s Branch Iodine Propensi Active Hives 2017-0 IV Univers ty to 09-01 contrast ity of adverse 00:00: only. As [place] reaction 00 of Medical s 09/01/16, Branch has not previousl y used oral contrast. Sitaglip Propensi Active Other - See 2017-0 U nivers tin ty to comments 09-01 ity of adverse 00:00: [place] reaction 00 Medical s Branch Atorvast Propensi Active Other - See [address] U nivers atin ty to comments 09-01 [...] glipiZID Active Memori a E E l [place] iodine iodine Active Memoria l [place] Januvia Januvia Active Memoria l [place] Lipitor Lipitor Active Memoria l [place] metFORMI metFORMI Active Memori a N N l [place] morphine morphine Active Memori a l [place] penicill penicill Active Memori a ins ins l [place] sulfa sulfa Active Memoria drugs drugs l [place] Wellbutr Wellbutr Active Memori a in in l [place] Bactrim Bactrim Active Memoria l [place] Bandaids Bandaids Active Memori a l [place] clindamy clindamy Active Memori a fabián fabián l [place] codeine codeine Active Memoria l [place] Crestor Crestor Active Memoria l [place] Darvocet Darvocet Active Memori a -N 50 -N 50 l [place] clindamy clindamy Active Unknown Commo n fabián fabián [facility] hydroxyz hydroxyz Active Unknown Commo n ine ine [facility] atorvast atorvast Active Unknown Commo n atin atin [facility] metronid metronid Active Unknown Commo n azole azole [facility] erythrom erythrom Active Unknown Commo n ycin ycin [facility] propoxyp propoxyp Active Unknown Commo n gillian henblair [facility] 5337 Drug Active Unknown Common allergy [facility] glimepir glimepir Active Unknown Commo n diane diane [facility] trimetho trimetho Active Unknown Commo n prim prim [facility] 463 Drug Active Unknown Common allergy [facility] sitaglip sitaglip Active Unknown Commo n tin tin [facility] Penicill Penicill Active Unknown Commo n in in [facility] pioglita pioglita Active Unknown Commo n zone zone [facility] bupropio bupropio Active Unknown Commo n n n [facility] rosuvast rosuvast Active Unknown Commo n atin atin [facility] Family History Family Member Diagnosis Comments Start Date Stop Date Source Natural brother Depression [facility] Natural daughter Depression [facility] Natural father Early [facility] Natural sister Depression [facility] Natural mother No Known Problem [facility] Natural son No Known Problem [facility] Social History Social Habit Start Date Stop Date Quantity Comments Source History of tobacco Cigarette Smoker [facility] Medicine History [facility] University o f Alcohol Frequency [place] M edical Branch History [facility] o f Alcohol Std Drinks [place] [facility] History [facility] o f Alcohol Binge [place] Medic al Branch History [facility] Alcohol intake 2022-02-21 2022-02-21 Current [facility] 00:00:00 00:00:00 non-drinker of Medical Ce nter alcohol (finding) History [facility] 2022-01-25 2022-01-25 2 [facility] Med 00:00:00 00:00:[address] History [facility] 2022-01-25 2022-01-25 2 [facility] Housing Unable to 00:00:00 00:00:00 Medical Center Pay History [facility] 2022-01-25 2022-01-[address] [facility] Housing Places 00:00:00 00:00:00 Medical Ce nter Lived History SDOH 2022-01-25 2022-01-25 2 [facility] Homeless 00:00:00 00:00:00 [facility] Last Year Cigarettes smoked 2022-01-22 2022-01-22 [facility] (pack per 00:00:00 00:00:00 Medicin e day) - Reported Cigarette 2022-01-22 2022-01-22 [facility] of pack-years 00:00:00 00:00:00 Medicine Exposure to 2021-07-24 2021-08-03 Not sure University SARS-CoV-2 (event) 00:00:00 22:08:00 [facility] Alcohol Comment 2019-01-06 2019-01-06 1 glass of wine Univ ersity of 00:00:00 00:00:00 every few months [facility] Tobacco use and 2016-12-11 2016-12-11 Never used [facility] exposure 00:00:00 00:00:00 [facility] Tobacco Comment 2016-09-02 2016-09-02 quit in 2014 Univers ity of 00:00:00 00:00:00 [facility] Social History 2016-07-02 2016-07-02 [facility] ayaka 15:44:33 15:44:33 Sex Ass[birth year] F [facility] 00:00:00 00:00:00 [facility] Smoking Status Start Date Stop Date Source Smokes tobacco daily 2022-01-22 00:00:00 [facility] Never smoker [facility] Medications Ordered Filled Start Stop Current Ordering Indication Dosage Frequency Signature Comments Components Source Medication Medication Date Date Medication? Clinician (SIG) Name Name B Complex 2021-03 Yes as [facility] Vitamins 2-20 directed College (VITAMIN B 14:55: Orally of COMPLEX) 58 Medicin TABS e Probiotic 2021-03 Yes 1{capsu Take 1 [place] atul Product 2-20 le} capsule by Kristyn pinto (ACIDOPHILU 14:55: mouth. of S/GOAT 58 Medicin MILK) CAPS e Zinc 2021-03 Yes 1 tablet Jeremías Gluconate 2-20 Orally College 50 MG TABS 14:55: Once a day o f 58 Medicin e INSULIN ASP 2021-03 Yes 35U Inject 35 B aylor PROT & ASP, 2-20 Units into Co llege HUM, 14:51: the skin. of (70-30) 100 06 Medicin UNIT/ML e SUSP metoprolol 2021-03 Yes TAKE 1 [facility] (TOPROL-XL) 2-20 TABLET BY Col lege 25 MG XL 14:51: MOUTH ONCE of tablet 06 DAILY Medicin e duloxetine 2021-03 Yes 1{capsu 1 capsule. Jeremías (CYMBALTA) 2-20 le} [place] 60 MG 14:51: of capsule 06 Medicin e polyethylen 2021-03 Yes 1{packe Take 1 B aylor e glycol 2-20 t} Packet by Kristyn pinto (MIRALAX) 14:51: mouth of 17 g packet 06 daily. Medici n e linaCLOtide 2021-03 Yes [id number] 145ug Take 145 [facility] (LINZESS) 2-20 mcg by [place] 145 MCG 00:00: mouth of CAPS 00 daily. Medicin e magnesium 2021-03 Yes [id number] 400mg Take 1 [facility] oxide 2-20 Tablet by [place] (MAG-OX) 00:00: mouth two of 400 MG 00 times Medicin tablet daily. e omeprazole 2021-03 Yes 40mg Take 1 [facility] (PRILOSEC) 2-20 capsule by Col lege 40 MG 00:00: mouth of capsule 00 daily. Medicin e ferrous 2021-03- Yes 325mg Take 1 Jeremías sulfate 325 2-20 12-21 Tablet by Co llege (65 Fe) MG 00:00: 05:59 mouth of tablet 00 :00 daily. Medicin e Metoprolol Metoprolol 2021-03 No 1{table QD Metoprolol Succinate Succinate 2-19 t} Succinate ER 25 MG ER 25 MG 00:00: ER 25 MG 00 Metoprolol Metoprolol 2021-03 No 1{table QD Metoprolol Succinate Succinate 2-19 t} Succinate ER 25 MG ER 25 MG 00:00: ER 25 MG 00 Metoprolol Metoprolol 2021-03 No 1{table QD Metoprolol Succinate Succinate 2-19 t} Succinate ER 25 MG ER 25 MG 00:00: ER 25 MG 00 simvastatin 2021-03 Yes 20mg QD Take [address] [facility] (ZOCOR) 20 2-08 by mouth [facility] tablet 18:09: nightly. [address] insulin 2021-03 Yes 35U Inject 35 [facility] aspart [facility]-08 Units [facility] protamine-i 18:09: [facility] Medical nsulin 49 us 2 Center aspart (two) (NOVOLOG times MIX 70/30) daily with 100 unit/mL breakfast (70-30) and Soln dinner. injection insulin 2021-[address] [facility] aspart 2-08 subcutaneo [facility] (NOVOLOG) 18:09: usly 3 Medica l 100 unit/mL 49 (three) Cente r InPn times daily with meals. LORazepam 2021-03 Yes anxiety .5mg Take 0.[address] (ATIVAN) 2-08 mg by [facility] 0.5 MG 18:09: mouth Medical tablet 49 every 12 Center (twelve) hours as needed for Anxiety. simvastatin 2021-03 Yes 20mg QD Take [address] [facility] (ZOCOR) 20 2-08 by mouth [facility] MG tablet 18:09: nightly. [address] insulin 2021-03 Yes 35U Inject [facility] 2 [place] aspart (two) (NOVOLOG times MIX 70/30) daily with 100 unit/mL breakfast (70-30) and Soln dinner. injection insulin 2021-[address] [facility] aspart 2-08 subcutaneo [facility] (NOVOLOG) 18:09: usly 3 Medica l 100 unit/mL 49 (three) Cente r InPn times daily with meals. LORazepam 2021-03 Yes anxiety .5mg Take 0.[address] (ATIVAN) 2-08 mg by [facility] 0.5 MG 18:09: mouth Medical tablet 49 every 12 Center (twelve) hours as needed for Anxiety. One Touch One Touch 2021-03- No QD One Touch Ultra Mini Ultra Mini 05-05 Ultra Mini test strips test strips 00:00: 00:00 test 00 :00 strips One Touch One Touch 2021-03- No QD One Touch Ultra Mini Ultra Mini 05-05 Ultra Mini test strips test strips 00:00: 00:00 test 00 :00 strips One Touch One Touch 2021-03- No QD One Touch Ultra Mini Ultra Mini 05-05 Ultra Mini test strips test strips 00:00: 00:00 test 00 :00 strips One Touch One Touch 2021-03- No QD One Touch Ultra Mini Ultra Mini 05-05 Ultra Mini test strips test strips 00:00: 00:00 test 00 :00 strips One Touch One Touch 2021-03- No QD One Touch Ultra Mini Ultra Mini 05-05 Ultra Mini test strips test strips 00:00: 00:00 test 00 :00 strips One Touch One Touch 2021-03- No QD One Touch Ultra Mini Ultra Mini 05-05 Ultra Mini test strips test strips 00:00: 00:00 test 00 :00 strips alprazolam 2021-03 Yes nightly as [facility] (XANAX) 0.5 1-20 needed. Colle ge MG tablet 00:00: of 00 Medicin e pantoprazol 2021-03 Yes 40mg Q.5D Take [address] [facility] e 0-31 tablet (40 [facility] (PROTONIX) 00:00: mg total) Me dical 40 MG 00 by mouth 2 Center tablet (two) times daily. pantoprazol 2021-03 Yes 40mg Q.5D Take [address] [facility] e 0-31 tablet (40 [facility] (PROTONIX) 00:00: mg total) Me dical 40 MG 00 by mouth 2 Center tablet (two) times daily. ferrous 2021-03- No 325mg Take [address] [facility] sulfate 325 0-31 10-31 tablet [facility] (65 FE) MG 00:00: 23:59 (325 mg Med ical tablet 00 :00 total) by Center mouth daily with breakfast. ferrous 2021-03- No 325mg Take [address] [facility] sulfate 325 0-31 10-31 tablet [facility] (65 FE) MG 00:00: 23:59 (325 mg Med ical tablet 00 :00 total) by Center mouth daily with breakfast. ferrous 2021-03- No 325mg Take 325 [facility] sulfate 325 0-31 12-20 mg by Colleg e (65 Fe) MG 00:00: 00:00 mouth of tablet 00 :00 daily. Medicin e pantoprazol 2021-03 No 1{tbl} 1 Tablet Jeremías e 0-31 12-20 daily. College (PROTONIX) 00:00: 00:00 of 40 MG 00 :00 Medicin tablet e amitriptyli 2021-03- No 5mg Take [address] [facility] ne (ELAVIL) 0-30 10-30 by mouth Luis es 10 MG 03:29: 00:00 every Medical tablet 33 :00 night as Center needed . busPIRone 2021-03 No 15mg Q.5D Take [address] (BUSPAR) 15 0-30 10-30 by mouth 2 L ukes MG tablet 03:29: 00:00 (two) Medica l 33 :00 times Center daily. citalopram 2021-03 No 40mg QD Take [address] [facility] (CELEXA) 40 0-30 10-30 by mouth Luis es MG tablet 03:29: 00:00 daily. Medic al 33 :00 Center cyclobenzap 2021-03 No 5mg Take [address] [facility] rine 0-30 10-30 by mouth 3 [facility] (FLEXERIL) 03:29: 00:00 (three) Med ical 5 MG tablet 33 :00 times Center daily as needed for Muscle spasms. gabapentin 2021-03 No 300mg Q.5D Take [address] (NEURONTIN) 0-30 10-30 mg by [facility] 600 MG 03:29: 00:00 mouth 2 Medical tablet 33 :00 (two) Center times daily . guaiFENesin 2021-03 No 200mg Take [address] [facility] (ROBITUSSIN 0-30 10-30 mg by [facility] ) 100 mg/5 03:29: 00:00 mouth 3 Med ical mL syrup 33 :00 (three) Center times daily as needed for Cough. amitriptyli 2021-03- No 5mg Take [address] [facility] ne (ELAVIL) 0-30 10-30 by mouth Luis es 10 MG 03:29: 00:00 every Medical tablet 33 :00 night as Center needed . busPIRone 2021-03 No 15mg Q.5D Take [address] (BUSPAR) 15 0-30 10-30 by mouth 2 L ukes MG tablet 03:29: 00:00 (two) Medica l 33 :00 times Center daily. citalopram 2021-03 No 40mg QD Take [address] [facility] (CELEXA) 40 0-30 10-30 by mouth Luis es MG tablet 03:29: 00:00 daily. Medic al 33 :00 Center cyclobenzap 2021-03 No 5mg Take [address] [facility] rine 0-30 10-30 by mouth 3 [facility] (FLEXERIL) 03:29: 00:00 (three) Med ical 5 MG tablet 33 :00 times Center daily as needed for Muscle spasms. gabapentin 2021-03 No 300mg Q.5D Take [address] (NEURONTIN) 0-30 10-30 mg by [facility] 600 MG 03:29: 00:00 mouth 2 Medical tablet 33 :00 (two) Center times daily . guaiFENesin 2021-03 No 200mg Take [address] [facility] [facility] (ROBITUSSIN 0-30 10-30 mg by [facility] ) 100 mg/5 03:29: 00:00 mouth 3 Med ical mL syrup 33 :00 (three) Center times daily as needed for Cough. INSULIN ASP 2021-03 Yes 35U Inject 35 [facility] PROT & ASP, 0-27 Units into [facility] HUM, 11:18: the skin. of (70-30) 100 30 Medicin UNIT/ML e SUSP metoprolol 2021-03 Yes TAKE 1 [facility] (TOPROL-XL) 0-27 TABLET BY Col lege 25 MG XL 11:18: MOUTH ONCE of tablet 30 DAILY Medicin e duloxetine 2021-03 Yes 1{capsu 1 capsule. Jeremías (CYMBALTA) 0-27 le} College 60 MG 11:18: of capsule 30 Medicin e octreotide 2021-03- No [id number] 10mg Inject 10 [facility] ACETATE 0-27 10-27 mg into College (SANDOSTATI [...] of 00 EVERY 8 Medicin HOURS e pregabalin 2021-03 Yes TAKE 1 [facility] (LYRICA) 50 0-14 CAPSULE BY Co llege MG capsule 00:00: MOUTH of 00 EVERY 8 Medicin HOURS e Benzonatate Benzonatate 2021- No 1{capsu Benzonatat 200 MG 200 MG 12-17-05 le_as_n e 200 MG 00:00: 00:00 eeded} 00 :00 Benzonatate Benzonatate 0 2021- No 1{capsu Benzonatat 200 MG 200 MG 12-17-05 le_as_n e 200 MG 00:00: 00:00 eeded} 00 :00 Benzonatate Benzonatate 2021-0 2- No 1{capsu Benzonatat 200 MG 200 MG 12-17-05 le_as_n e 200 MG 00:00: 00:00 eeded} 00 :00 Benzonatate Benzonatate 0 2- No 1{capsu Benzonatat 200 MG 200 MG 12-17-05 le_as_n e 200 MG 00:00: 00:00 eeded} 00 :00 Benzonatate Benzonatate 2021-0 2- No 1{capsu Benzonatat 200 MG 200 MG 12-17-05 le_as_n e 200 MG 00:00: 00:00 eeded} 00 :00 Benzonatate Benzonatate 0 2- No 1{capsu Benzonatat 200 MG 200 MG 12-17-05 le_as_n e 200 MG 00:00: 00:00 eeded} 00 :00 Benzonatate Benzonatate 0 2- No 1{capsu Benzonatat 200 MG 200 MG 11-10 le_as_n e 200 MG 00:00: 00:00 eeded} 00 :00 Benzonatate Benzonatate 2021-0 2022- No 1{capsu Benzonatat 200 MG 200 MG [...] 00:00: 00:00 00 :00 predniSONE predniSONE 2-0 2022- No QD predniSONE 20 MG 20 MG 10-08 20 MG 00:00: 00:00 00 :00 predniSONE predniSONE 2-0 2- No QD predniSONE 20 MG 20 MG 7 07-18 20 MG 00:00: 00:00 00 :00 Octreotide Octreotide 2021-0 2- No 1{ml} Octreotide Acetate 20 Acetate 20 08-28 Acetate 20 MG MG 00:00: 00:00 MG 00 :00 Octreotide Octreotide 2021-0 2- No 1{ml} Octreotide Acetate 20 Acetate 20 08-28- Acetate 20 MG MG 00:00: 00:00 MG [...] 7-10). Indication s: acute pain methylPREDN methylPREDN 2021- No QD methylPRED ISolone 4 ISolone [...] 00:00: 00:00 MG 00 :00 Benzonatate Benzonatate 2021-2021- No 1{capsu Benzonatat 100 MG 100 MG 05-28 le_as_n e 100 MG 00:00: 00:00 eeded} 00 :00 Cefdinir Cefdinir 2021-0 2021- No Cefdinir 300 MG 300 MG 05-28 300 MG 00:00: 00:00 00 :00 methylPREDN methylPREDN 2021-0 2021- No QD methylPRED ISolone 4 ISolone 4 05-28 NISolone 4 MG MG 00:00: 00:00 MG 00 :00 EPINEPHrine EPINEPHrine No EPINEPHrin 0.3 0.3 1-14 [...] MG/0.3ML MG/0.3ML 00:00: MG/0.3ML 00 EPINEPHrine EPINEPHrine 0 No EPINEPHrin 0.3 0.3 [...] 2-0 No 3{ml_as QID Ipratropiu -Albuterol -Albuterol 14 [...] MG/0.3ML MG/0.3ML 00:00: MG/0.3ML 00 EPINEPHrine EPINEPHrine No EPINEPHrin 0.3 0.3 1-14 e 0.3 MG/0.3ML MG/0.3ML 00:00: MG/0.3ML 00 Ipratropium Ipratropium No 3{ml_as QID Ipratropiu -Albuterol -Albuterol 1-14 _needed m-Albutero 0.5-2.5 (3) 0.5-2.5 (3) 00:00: } l 0.5-2.5 MG/3ML MG/3ML 00 (3) MG/3ML EPINEPHrine EPINEPHrine No EPINEPHrin 0.3 0.3 1-14 e 0.3 MG/0.3ML MG/0.3ML 00:00: MG/0.3ML 00 Ipratropium Ipratropium No 3{ml_as QID Ipratropiu -Albuterol -Albuterol -14 _needed m-Albutero 0.5-2.5 (3) 0.5-2.5 (3) 00:00: } l 0.5-2.5 MG/3ML MG/3ML 00 (3) MG/3ML EPINEPHrine Yes as [facility] 0.3 1-14 directed College MG/0.3ML 00:00: Injection of injection 00 Medicin e ascorbic 2020-03 Yes 500mg Take 500 Univ ers acid, 2-14 mg by ity of vitamin C, 16:37: mouth [place] 500 mg 13 daily. Medical tablet Branch aspirin 81 2020-03 Yes 81mg Take 81 mg U nivers mg EC 2-14 by mouth ity of tablet 16:37: daily. [place] 13 Medical Branch Cholecalcif 2020-03 Yes Take by Uni vers mechelle, 2-14 mouth ity of Vitamin D3, 16:37[place]. [place] 1[place]000 [place] 13 Medical capsule Branch Magnesium 2020-03 Yes Take by Unive rs Oxide 500 2-14 mouth ity of mg Tab 16:37: daily. [place] [address] Medical Branch insulin 2020-03 Yes Inject as Unive rs regular, 2-14 directed ity of human 16:37: as needed. [place] (NOVOLIN R 13 Medical INJECTION) Branch zinc 2020-03 Yes Take by Univers sulfate 2-14 mouth. ity of (ZINC-15 16:37: [place] ORAL) Medical Branch citalopram 2020-03 Yes 20mg Take 20 mg U nivers 20 mg 2-14 by mouth ity of tablet 16:37: daily. [place] [address] Medical Branch ascorbic 2020-03 Yes 500mg Take 500 Univ ers acid, 2-14 mg by ity of vitamin C, 16:37: mouth [place] 500 mg 13 daily. Medical tablet Branch aspirin 81 2020-03 Yes 81mg Take 81 mg U nivers mg EC 2-14 by mouth ity of tablet 16:37: daily. [place] [address] Medical Branch Cholecalcif 2020-03 Yes Take by Uni vers mechelle, 2-14 mouth ity of Vitamin D3, 16:37: [place]. [place] 1[place]000 unit 13 Medical capsule Branch Magnesium 2020-03 Yes Take by Unive rs Oxide 500 2-14 mouth ity of mg Tab 16:37: daily. [place] [address] Medical Branch insulin 2020-03 Yes Inject as Unive rs regular, 2-14 directed ity of human 16:37: as needed. [place] (NOVOLIN R 13 Medical INJECTION) Branch zinc 2020-03 Yes Take by Univers sulfate 2-14 mouth. ity of (ZINC-15 16:37: [place] ORAL) Medical Branch citalopram 2020-03 Yes 20mg Take 20 mg U nivers 20 mg 2-14 by mouth ity of tablet 16:37: daily. [place] [address] Medical Branch Magnesium 2020-03 Yes Take by [facility] Oxide 500 2-14 mouth College MG TABS 00:00: daily. of Medicin e Magnesium 2020-03 Yes Take by [facility] Oxide 500 2-14 mouth College MG TABS 00:00: daily. of 00 Medicin e ascorbic 2020-03 Yes 500mg Take 500 [facility] acid 500 MG 2-14 mg by College tablet 00:00: mouth of 00 daily. Medicin e Cholecalcif 2020-03 Yes Take by [place] atul mechelle 25 MCG 2-14 mouth College (1000 UT) 00:00: daily. of CAPS Medicin e metoprolol 2020-03 Yes [id number] 25mg Take 1 Univers succinate 1-12 tablet by ity o f XL 25 mg 24 00:00: mouth [place] hr tablet 00 daily. Medical Branch metoprolol 2020-03 Yes [id number] 25mg Take 1 Univers succinate 1-12 tablet [...] MG 00:00: 25 MG 00 Ferrous Yes [id number] 1{tbl} Take 1 U nivers Fumarate 9-10 tablet by ity of 324 mg (106 00:00: mouth 2 Manuel as mg iron) 00 (two) Medical Tab times Branch daily. Ferrous Yes [id number] 1{tbl} Take 1 U nivers Fumarate 9-10 tablet by ity of 324 mg (106 00:00: mouth 2 Manuel as mg iron) 00 (two) Medical Tab times Branch daily. insulin NPH Yes [id number] 8U inject 8 Univers and regular 9-08 Units ity of human 70-30 00:00: under the [place] (NOVOLIN 00 skin 2 Medical 70/30 U-100 (two) Branch INSULIN) times 100 unit/mL daily (70-30) before injection breakfast and dinner. insulin NPH Yes [id number] 8U inject 8 Univers and regular 9-08 Units ity of human 70-30 00:00: [place] (NOVOLIN 00 skin 2 Medical 70/30 U-100 (two) Branch INSULIN) times 100 unit/mL daily (70-30) before injection breakfast and dinner. insulin Yes 12U Inject 12 [facility] 70-30 9-08 Units into [place] (NOVOLIN 00:00: the skin of 70/30) 00 two times Medicin (70-30) 100 daily. e UNIT/ML injection SERTraline Yes [id number] 100mg Take 1 Univers 100 mg 9-06 tablet by ity of tablet 00:00: mouth 00 daily. Medical Branch SERTraline Yes [id number] 100mg Take 1 Univers 100 mg 9-06 tablet by ity of tablet 00:00: mouth 00 daily. Medical Branch albuterol Yes [id number] 2{puff} Inhale 2 Univers 90 9-02 Puffs ity of mcg/actuati 00:00: every 6 Manuel as on inhaler 00 (six) Medical hours as Branch needed for Wheezing or Shortness of Breath. albuterol Yes [id number] 2{puff} Inhale 2 Univers 90 9-02 Puffs ity of mcg/actuati 00:00: every 6 Manuel as on inhaler 00 (six) Medical hours as Branch needed for Wheezing or Shortness of Breath. Albuterol Yes Every 4 [facility] Sulfate 9-02 hours. [place] (VENTOLIN 00:00: of HFA) 108 00 Medicin (90 Base) e MCG/ACT AERS gabapentin Yes [id number] 200mg Take 2 Univers 100 mg 7-20 capsules ity of capsule 00:00: by mouth 00 every Medical evening. Branch gabapentin Yes [id number] 200mg Take 2 Univers 100 mg 7-20 capsules ity of capsule 00:00: by mouth 00 every Medical evening. Branch Methylcellu Yes [id number] 17g Take 17 g Univers lose, with 1-27 by mouth ity o f Sugar, 00:00: daily. [place] (CITRUCEL, 00 Medical SUCROSE,) Branch powder Methylcellu Yes [id number] 17g Take 17 g Univers lose, with 1-27 by mouth ity o f Sugar, 00:00: daily. [place] (CITRUCEL, 00 Medical SUCROSE,) Branch powder Belsomra Belsomra 2019-0 Yes Pricila 1 tablet Common 7-24 [place] at bedtime Spir it 00:00: as needed - [facility] BusPIRone BusPIRone Yes Pricila 1 tablet Common HCl HCl 6-10 [place] as needed Spiri t 00:00: for - [facility] 00 anxiety [facility] Trazodone Trazodone Yes Priclia 1/2 to 1 Common HCl HCl 6-10 [place] tablet at Spiri t 00:00: bedtime as - [facility] 00 needed for [facility] Ventolin Ventolin Yes Pricila 2 puffs as Common HFA HFA 3-19 [place] needed for Spir it 00:00: sob/wheezi - [facility] 00 ng [facility] amitriptyli Yes 5mg Take [address] [facility] ne (ELAVIL) 9-20 by mouth Luke s 10 MG 15:27: every Medical tablet 03 night as Center needed . busPIRone Yes 15mg Q.5D Take [address] (BUSPAR) 15 9-20 by mouth 2 Dora kes MG tablet 15:27: (two) Medical 03 times Center daily. citalopram Yes 40mg QD Take [address] (CELEXA) 40 9-20 by mouth Luke s MG tablet 15:27: daily. Medica l 03 Center cyclobenzap Yes 5mg Take [address] rine 9-20 by mouth 3 [facility] (FLEXERIL) 15:27: (three) Medi jorge l 5 MG tablet 03 times Center daily as needed for Muscle spasms. gabapentin 2017 Yes 300mg Q.5D Take [address] (NEURONTIN) 9-20 mg by [facility] 600 MG 15:27: mouth 2 Medical tablet 03 (two) Center times daily . simvastatin 2017- Yes 20mg QD Take [address] [facility] (ZOCOR) 20 9-20 by mouth [facility] MG tablet 15:27: nightly. Medi jorge l 03 Center insulin 0 Yes 35U Inject 35 [facility] [...] mouth 2 Center tablet (two) times daily. pantoprazol 2017-0 2021- No 40mg Q.5D Take [address] [facility] e 9-02 10-31 tablet (40 [facility] (PROTONIX) 00:00: 00:00 mg total) M edical 40 MG 00 :00 by mouth 2 Center tablet (two) times daily. pantoprazol 2017-0 2021- No 40mg Q.5D Take [address] [facility] e 9-02 10-31 tablet (40 [facility] (PROTONIX) 00:00: 00:00 mg total) M edical 40 MG 00 :00 by mouth 2 Center tablet (two) times daily. clopidogrel 2017-0 2- No 75mg QD Take [address] [facility] (PLAVIX) 75 9-02 10-30 tablet (75 L ukes mg tablet 00:00: 00:00 mg total) Me dical 00 :00 by mouth Center daily. clopidogrel 2017-0 2022- No 75mg QD Take [address] [facility] (PLAVIX) 75 9-02 10-30 tablet (75 L ukes mg tablet 00:00: 00:00 mg total) Me dical 00 :00 by mouth Center daily. metFORMIN 2017-0 Yes Resume if [facility] [...] 2017-0 Yes Resume if [facility] (GLUCOPHAGE 8- you were Luke s ) 1000 MG 00:00: taking Medica l tablet 00 prior to Center admission. metFORMIN 2017-0 Yes Resume if [facility] (GLUCOPHAGE 8- you were Luke s ) 1000 MG 00:00: taking Medica l tablet 00 prior to Center admission. metFORMIN 2017-0 Yes Resume if [facility] (GLUCOPHAGE 8- you were Luke s ) 1000 MG 00:00: taking Medica l tablet 00 prior to Center admission. metFORMIN 2017-0 Yes Resume if [facility] (GLUCOPHAGE 8- you were Luke s ) 1000 MG 00:00: taking Medica l tablet 00 prior to Center admission. [facility] Yes 240 mL, Memori a oral powder 7-06 PO, l for 16:28: Q10Min, [place] [facility] 00 Give jug ion for Colonoscop y, # 1 ea, 0 Refill(s), Pharmacy: [facility] [address] [place] [address] Yes 240 mL, Memori a oral powder 7-06 PO, l for 16:28: Q10Min, [place] [facility]ut 00 Give jug ion for Colonoscop y, # 1 ea, 0 Refill(s), Pharmacy: [facility] [address] [place] [address] Yes 240 mL, Memori a oral powder 7-06 PO, l for 16:28: Q10Min, [place] [facility] 00 Give jug ion for Colonoscop y, # 1 ea, 0 Refill(s), Pharmacy: [facility] [address] [place] [address] Yes 240 mL, Memori a oral powder 7-06 PO, l for 16:28: Q10Min, [place] [facility] 00 Give jug ion for Colonoscop y, # 1 ea, 0 Refill(s), Pharmacy: [facility] [address] [place] [address] Yes 240 mL, Memori a oral powder 7-06 PO, l for 16:28: Q10Min, [place] [facility] 00 Give jug ion for Colonoscop y, # 1 ea, 0 Refill(s), Pharmacy: [facility] [address] [place] [address] Yes 240 mL, Memori a oral powder 7-06 PO, l for 16:28: Q10Min, [place] [facility] 00 Give jug ion for Colonoscop y, # 1 ea, 0 Refill(s), Pharmacy: [facility] [address] [place] [address] Yes 240 mL, Memori a oral powder 7-06 PO, l for 16:28: Q10Min, [place] [facility] 00 Give jug ion for Colonoscop y, # 1 ea, 0 Refill(s), Pharmacy: [address] Yes 240 mL, Memori a oral powder 7-06 PO, l for 16:28: Q10Min, [place] [facility] 00 Give jug ion for Colonoscop y, # 1 ea, 0 Refill(s), Pharmacy: [address] Yes 240 mL, Memori a oral powder 7-06 PO, l for 16:28: Q10Min, [place] [facility] 00 Give jug ion for Colonoscop y, # 1 ea, 0 Refill(s), Pharmacy: [facility] [address] [place] [address] Yes 240 mL, Memori a oral powder 7-06 PO, l for 16:28: Q10Min, [place] [facility] 00 Give jug ion for Colonoscop y, # 1 ea, 0 Refill(s), Pharmacy: [facility] Octreotide Yes See Memoria 0.2 MG/ML 4-06 Instructio l Injectable 20:01: ns, 200 Herm kun Solution 00 microgram [Sandostati IM left n] gluteal muscle, # 1 box, 0 Refill(s), given to patient, Pt brought her own supply Octreotide Yes See Memoria 0.2 MG/ML 4-06 Instructio l Injectable 20:01: ns, 200 Herm kun Solution 00 microgram [Sandostati IM left n] gluteal muscle, # 1 box, 0 Refill(s), given to patient, Pt brought her own supply Octreotide 2016- Yes See Memoria 0.2 MG/ML 07-02 Instructio [...] patient, Pt brought her own supply Octreotide 2016- Yes See Memoria 0.2 MG/ML 07-02 Instructio [...] patient, Pt brought her own supply Octreotide 2016- Yes See Memoria 0.2 MG/ML 07-02 Instructio [...] tab, PO, l Tablet 15:52: TID, 0 [place] [Ativan] 00 Refill(s) SandoSTATIN Yes IM, q4wk, M emoria [place] 07-02 0 l 15:52: Refill(s) [place] 00 Docusate Yes 100 mg = 1 Mem oria Sodium 100 4-06 cap, PO, l MG Oral 15:52: BID, 0 [place] Capsule 00 Refill(s) [Colace] NovoLIN Yes SUB-Q, 0 Memori a 70/30 -06 Refill(s) l 15:52: [place] 00 Metformin Yes 1,000 mg = Me [...] PO, l Tablet 15:52: BID, # 6 [place] 00 tab, 0 Refill(s) Ondansetron Yes 4 mg = 1 Me moria 4 MG Oral 4-06 tab, PO, l Tablet 15:52: Q8H, 0 [place] [Zofran] 00 Refill(s) clopidogrel Yes 75 mg = 1 M emoria 75 MG Oral 4-06 tab, PO, l Tablet 15:52: Daily, 0 Nader [Plavix] 00 Refill(s) amitriptyli Yes 10 mg = 1 M emoria ne 10 mg 4-06 tab, PO, l oral tablet 15:52: Bedtime, # Nader 00 30 tab, 1 Refill(s) Omeprazole Yes [...] cholecalcif Yes 1,000 Memor ia mechelle 1000 06 IntlUnit = l intl units 15:52: 1 [...] ia 4-06 BID, 0 l 15:52: Refill(s) [place] 00 Citalopram Yes 40 mg = 1 [...] H ermann Fluticasone Yes INHALATION Memoria propionate 06 , BID, 0 l 0.05 15:52: Refill(s) [place] MG/ACTUAT 00 Dry Powder Inhaler Miralax Yes 17 gm, PO, Jim maya 07-02 Daily, 0 l 15:52: Refill(s) Nader 00 magnesium Yes 500 mg = 1 Me moria oxide 500 07-02 tab, PO, l mg oral 15:52: Daily, 0 Gilbert n tablet 00 Refill(s) Tylenol Yes 500 mg, Memoria 06 PO, 0 l 15:52: Refill(s) Nader 00 200 ACTUAT Yes 2 puff, Jim maya Albuterol 07-02 INHALATION l 0.09 15:52: , Q4H, 0 [place] MG/ACTUAT 00 Refill(s) Dry Powder Inhaler ascorbic [...] Yes 1,000 mg = Me moria hydrochlori 07-02 1 tab, PO, l de 1000 MG 15:52: BID, 0 Elisa nn Oral Tablet 00 Refill(s) gabapentin 2016 Yes 300 mg = 1 M emoria [...] tab, PO, l Tablet 15:52: Q8H, 0 [place] [Zofran] 00 Refill(s) clopidogrel 2017 Yes 75 mg = 1 M emoria 75 MG Oral 4-06 tab, PO, l Tablet 15:52: Daily, 0 [place] [Plavix] 00 Refill(s) amitriptyli Yes 10 mg = 1 M emoria ne 10 mg 4-06 tab, PO, l oral tablet 15:52: Bedtime, # [place] 00 30 tab, 1 Refill(s) Omeprazole 2017 [...] ia 4-06 BID, 0 l 15:52: Refill(s) Nader 00 [...] , BID, 0 l 0.05 15:52: Refill(s) [place] MG/ACTUAT 00 Dry Powder Inhaler Miralax Yes 17 gm, PO, Jim maya 4-06 Daily, 0 l 15:52: Refill(s) Nader 00 magnesium Yes 500 mg = 1 Me moria oxide 500 - tab, PO, l mg oral 15:52: Daily, 0 Gilbert n tablet 00 Refill(s) Tylenol Yes 500 mg, Memoria 4-06 PO, 0 l 15:52: Refill(s) Nader 00 200 ACTUAT Yes 2 puff, Jim [...] [place] 4-06 0 l 15:52: Refill(s) [place] 00 Docusate 2017 Yes 100 mg = [...] 00 Refill(s) Insulin, Yes SUB-Q, Memoria Aspart, 4 TID-Before l Human 100 15:52: Meals, 0 Herm kun UNT/ML 00 Refill(s) Injectable Solution [NovoLog] Buspar Yes 15 mg, PO, Memor ia 4-06 BID, 0 l 15:52: Refill(s) [place] 00 Citalopram Yes 40 mg = 1 Me moria 40 MG Oral 4-06 tab, PO, l Tablet 15:52: Daily, 0 [place] [Celexa] 00 Refill(s) aspirin 81 Yes 81 mg = 1 Me moria mg tablet, 4-06 tab, PO, l enteric 15:52: Daily, # Gilbert n coated 00 90 tab, 3 Refill(s) Vitamin B Yes 1 tab, PO, Me moria Complex 4-06 Daily, 0 l oral tablet 15:52: Refill(s) H ermann 00 Fluticasone Yes INHALATION Memoria propionate 4-06 , BID, 0 l 0.05 15:52: Refill(s) [place] MG/ACTUAT 00 Dry Powder Inhaler Miralax Yes 17 gm, PO, Jim maya 4-06 Daily, 0 l 15:52: Refill(s) Nader 00 magnesium Yes 500 mg = 1 Me moria oxide 500 4-06 tab, PO, l mg oral 15:52: Daily, 0 Gilbert n tablet 00 Refill(s) Tylenol Yes 500 mg, Memoria 4-06 PO, 0 l 15:52: Refill(s) [place] 00 200 ACTUAT Yes 2 puff, Jim [...] [place] 4-06 0 l 15:52: Refill(s) [place] 00 Docusate Yes 100 mg = 1 Mem oria Sodium 100 4-06 cap, PO, l MG Oral 15:52: BID, 0 [place] Capsule 00 Refill(s) [Colace] NovoLIN Yes SUB-Q, 0 Memori a 70/30 4-06 Refill(s) l 15:52: [place] 00 Metformin Yes 1,000 mg = Me [...] tab, PO, l Tablet 15:52: Q8H, 0 [place] [Zofran] 00 Refill(s) clopidogrel Yes 75 mg = 1 M emoria 75 MG Oral 4-06 tab, PO, l Tablet 15:52: Daily, 0 [place] [Plavix] 00 Refill(s) amitriptyli Yes 10 mg [...] tab, PO, l Tablet 15:52: Daily, 0 [place] [Lasix] 00 Refill(s) Insulin, Yes SUB-Q, Memoria Aspart, 406 TID-Before l Human 100 15:52: Meals, 0 Herm kun UNT/ML 00 Refill(s) Injectable Solution [NovoLog] Buspar Yes 15 mg, PO, Memor ia 4-06 BID, 0 l 15:52: Refill(s) [place] 00 Citalopram Yes 40 mg = 1 Me moria 40 MG Oral 4-06 tab, PO, l Tablet 15:52: Daily, 0 [place] [Celexa] 00 Refill(s) aspirin 81 Yes 81 [...] maya 4-06 Daily, 0 l 15:52: Refill(s) [place] 00 magnesium Yes 500 mg = 1 Me moria oxide 500 4-06 tab, PO, l mg oral 15:52: Daily, 0 Gilbert n tablet 00 Refill(s) Tylenol Yes 500 mg, Memoria 4-06 PO, 0 l 15:52: Refill(s) [place] 00 200 ACTUAT Yes 2 puff, Jim maya Albuterol 4-06 INHALATION l 0.09 15:52: , Q4H, 0 [place] MG/ACTUAT 00 Refill(s) Dry Powder Inhaler ascorbic Yes 500 mg = 1 Mem oria acid 500 mg 4-06 tab, PO, l oral tablet 15:52: Daily, 0 He rmann 00 Refill(s) Lorazepam Yes 0.5 mg = 1 Me moria 0.5 MG Oral 4-06 tab, PO, l Tablet 15:52: TID, 0 Eaton [Ativan] 00 Refill(s) SandoSTATIN Yes IM, q4wk, M emoria [place] 406 0 l 15:52: Refill(s) Eaton 00 Docusate Yes 100 mg = 1 Mem oria Sodium 100 4-06 cap, PO, l MG Oral 15:52: BID, 0 Nader Capsule 00 Refill(s) [Colace] NovoLIN Yes SUB-Q, 0 Memori a 70/30 4-06 Refill(s) l 15:52: Eaton 00 Metformin Yes 1,000 mg = Me [...] tab, PO, l Tablet 15:52: Daily, 0 Eaton [Lasix] 00 Refill(s) Insulin, 2017 Yes SUB-Q, Memoria Aspart, 4-06 TID-Before l Human 100 15:52: Meals, 0 Herm kun UNT/ML 00 Refill(s) Injectable Solution [NovoLog] Buspar Yes 15 mg, PO, Memor ia 4-06 BID, 0 l 15:52: Refill(s) Nader 00 Citalopram Yes 40 mg = 1 Me moria 40 MG Oral 4-06 tab, PO, l Tablet 15:52: Daily, 0 Eaton [Celexa] 00 Refill(s) aspirin 81 Yes 81 [...] Miralax Yes 17 gm, PO, Jim maya 4- Daily, 0 l 15:52: Refill(s) Nader magnesium Yes 500 mg = 1 Me moria oxide 500 - tab, PO, l mg oral 15:52: Daily, 0 Gilbert n tablet 00 Refill(s) Tylenol Yes 500 mg, Memoria -06 PO, 0 l 15:52: Refill(s) Eaton 00 200 ACTUAT Yes 2 puff, Jim maya Albuterol - INHALATION l 0.09 15:52: , Q4H, 0 Eaton MG/ACTUAT 00 Refill(s) Dry Powder Inhaler ascorbic Yes 500 mg = 1 Mem oria acid 500 mg -06 tab, PO, l oral tablet 15:52: Daily, 0 He rmann 00 Refill(s) Lorazepam Yes 0.5 mg = 1 Me moria 0.5 MG Oral -06 tab, PO, l Tablet 15:52: TID, 0 Eaton [Ativan] 00 Refill(s) SandoSTATIN Yes IM, q4wk, M emoria [place] 06 0 l 15:52: Refill(s) Eaton 00 Docusate Yes 100 mg = 1 Mem oria Sodium 100 - cap, PO, l MG Oral 15:52: BID, 0 Nader Capsule 00 Refill(s) [Colace] NovoLIN Yes SUB-Q, 0 Memori a 70/30 -06 Refill(s) l 15:52: Eaton 00 Metformin Yes 1,000 mg = Me [...] PO, l Tablet 15:52: BID, # 6 Eaton 00 tab, 0 Refill(s) Ondansetron 2017 Yes 4 mg = 1 Me moria 4 MG Oral 4-06 tab, PO, l Tablet 15:52: Q8H, 0 Eaton [Zofran] 00 Refill(s) clopidogrel Yes 75 mg = 1 M emoria 75 MG Oral 4-06 tab, PO, l Tablet 15:52: Daily, 0 Nader [Plavix] 00 Refill(s) amitriptyli Yes 10 mg = 1 M emoria ne 10 mg 4-06 tab, PO, l oral tablet 15:52: Bedtime, # Eaton 00 30 tab, 1 Refill(s) Omeprazole Yes 40 mg = 1 Me moria 40 MG 4-06 cap, PO, l Enteric 15:52: Daily, 0 Gilbert n Coated 00 Refill(s) Capsule [Prilosec] 200 ACTUAT Yes 2 puff, Jim maya Albuterol 4-06 INHALATION l 0.09 15:52: , Q4H, 0 Eaton MG/ACTUAT 00 Refill(s) Dry Powder Inhaler ascorbic Yes 500 mg = 1 Mem oria acid 500 mg 4-06 tab, PO, l oral tablet 15:52: Daily, 0 He rmann 00 Refill(s) Lorazepam 2017 Yes 0.5 mg = 1 Me moria 0.5 MG Oral 4-06 tab, PO, l Tablet 15:52: TID, 0 Eaton [Ativan] 00 Refill(s) SandoSTATIN 2017 Yes IM, q4wk, M emoria [place] 4-06 0 l 15:52: Refill(s) Nader 00 Docusate Yes 100 mg = 1 Mem oria Sodium 100 4-06 cap, PO, l MG Oral 15:52: BID, 0 Eaton Capsule 00 Refill(s) [Colace] NovoLIN 2017 Yes [...] tab, PO, l Tablet 15:52: Daily, 0 Eaton [Plavix] 00 Refill(s) amitriptyli 2017 Yes 10 mg = 1 M emoria ne 10 mg 4-06 tab, PO, l oral tablet 15:52: Bedtime, # Eaton 00 30 tab, 1 Refill(s) Omeprazole 2017 [...] tab, PO, l Tablet 15:52: Daily, 0 Eaton [Lasix] 00 Refill(s) Insulin, Yes SUB-Q, Memoria Aspart, 07-02 TID-Before l Human 100 15:52: Meals, 0 Herm kun UNT/ML 00 Refill(s) Injectable Solution [NovoLog] Buspar Yes 15 mg, PO, Memor ia 4 BID, 0 l 15:52: Refill(s) Eaton 00 Cyclobenzap Yes 5 mg = 1 Me moria rine -06 tab, PO, l hydrochlori 15:52: TID, 0 Herm kun de 5 MG 00 Refill(s) Oral Tablet [Flexeril] Citalopram Yes 40 mg = 1 Me moria 40 MG Oral -06 tab, PO, l Tablet 15:52: Daily, 0 Eaton [Celexa] 00 Refill(s) aspirin 81 Yes 81 mg = 1 Me moria mg tablet, - tab, PO, l enteric 15:52: Daily, # Gilbert n coated 00 90 tab, 3 Refill(s) Vitamin B Yes 1 tab, PO, Me moria Complex - Daily, 0 l oral tablet 15:52: Refill(s) H ermann 00 Fluticasone Yes INHALATION Memoria propionate 07-02 , BID, 0 l 0.05 15:52: Refill(s) Eaton MG/ACTUAT 00 Dry Powder Inhaler Miralax Yes 17 gm, PO, Jim maya -06 Daily, 0 l 15:52: Refill(s) Eaton 00 magnesium Yes 500 mg = 1 Me moria oxide 500 -06 tab, PO, l mg oral 15:52: Daily, 0 Gilbert n tablet 00 Refill(s) Tylenol Yes 500 mg, Memoria 4-06 PO, 0 l 15:52: Refill(s) Nader 00 Simvastatin Yes 20 mg = 1 M [...] tab, PO, l Tablet 15:52: Daily, 0 Eaton [Lasix] 00 Refill(s) Insulin, 2017 Yes SUB-Q, Memoria Aspart, 07-02 TID-Before l Human 100 15:52: Meals, 0 Herm kun UNT/ML 00 Refill(s) Injectable Solution [NovoLog] Buspar Yes 15 mg, PO, Memor ia 4-06 BID, 0 l 15:52: Refill(s) Nader Citalopram [...] ermann 00 Fluticasone Yes INHALATION Memoria propionate -06 , BID, 0 l 0.05 15:52: Refill(s) [...] PO, 0 l 15:52: Refill(s) Nader 00 200 ACTUAT Yes 2 puff, Jim [...] [place] 406 0 l 15:52: Refill(s) Eaton 00 Docusate Yes 100 mg = 1 Mem oria Sodium 100 4-06 cap, PO, l MG Oral 15:52: BID, 0 Eaton Capsule 00 Refill(s) [Colace] NovoLIN Yes SUB-Q, [...] tab, PO, l Tablet 15:52: Q8H, 0 Eaton [Zofran] 00 Refill(s) clopidogrel Yes 75 mg = 1 M emoria 75 MG Oral 4-06 tab, PO, l Tablet 15:52: Daily, 0 Eaton [Plavix] 00 Refill(s) amitriptyli Yes 10 mg = 1 M emoria ne 10 mg 4-06 tab, PO, l oral tablet 15:52: Bedtime, # Eaton 00 30 tab, 1 Refill(s) Omeprazole 2017 [...] tab, PO, l Tablet 15:52: Daily, 0 Eaton [Lasix] 00 Refill(s) Insulin, Yes SUB-Q, Memoria Aspart, 4-06 TID-Before l Human 100 15:52: Meals, 0 Herm kun UNT/ML 00 Refill(s) Injectable Solution [NovoLog] Buspar Yes 15 mg, PO, Memor ia 4-06 BID, 0 l 15:52: Refill(s) Eaton 00 Citalopram Yes 40 mg = 1 Me moria 40 MG Oral 4-06 tab, PO, l Tablet 15:52: Daily, 0 Eaton [Celexa] 00 Refill(s) aspirin 81 2017 Yes 81 mg = 1 Me moria mg tablet, 4-06 tab, PO, l enteric 15:52: Daily, # Gilbert n coated 00 90 tab, 3 Refill(s) Vitamin B 2017 Yes 1 tab, PO, Me moria Complex 4-06 Daily, 0 l oral tablet 15:52: Refill(s) H ermann 00 Fluticasone Yes INHALATION Memoria propionate 4-06 , BID, 0 l 0.05 15:52: Refill(s) Nader MG/ACTUAT 00 Dry Powder Inhaler Miralax Yes 17 gm, PO, Jim maya 4-06 Daily, 0 l 15:52: Refill(s) Nader 00 magnesium Yes 500 mg = 1 Me moria oxide 500 4-06 tab, PO, l mg oral 15:52: Daily, 0 Gilbert n tablet 00 Refill(s) Tylenol Yes 500 mg, Memoria 4-06 PO, 0 l 15:52: Refill(s) Eaton 00 200 ACTUAT Yes 2 puff, Jim maya Albuterol 06 INHALATION l 0.09 15:52: , Q4H, 0 Eaton MG/ACTUAT 00 Refill(s) Dry Powder Inhaler ascorbic Yes 500 mg = 1 Mem oria acid 500 mg 4-06 tab, PO, l oral tablet 15:52: Daily, 0 He rmann 00 Refill(s) Lorazepam Yes 0.5 mg = 1 Me moria 0.5 MG Oral 4-06 tab, PO, l Tablet 15:52: TID, 0 Nadre [Ativan] 00 Refill(s) SandoSTATIN Yes IM, q4wk, M emoria [place] 06 0 l 15:52: Refill(s) Eaton 00 Docusate Yes 100 mg = 1 Mem oria Sodium 100 4-06 cap, PO, l MG Oral 15:52: BID, 0 Eaton Capsule 00 Refill(s) [Colace] NovoLIN Yes SUB-Q, 0 Memori a 70/30 06 Refill(s) l 15:52: Eaton 00 Metformin Yes 1,000 mg = Me moria hydrochlori -06 1 tab, PO, l de 1000 MG 15:52: BID, 0 Elisa nn Oral Tablet 00 Refill(s) gabapentin Yes 300 mg = 1 M emoria 300 MG Oral 4-06 cap, PO, l Capsule 15:52: BID, # 90 Leisa nn 00 cap, 1 Refill(s) Famotidine Yes 20 mg = 1 Me moria 20 MG Oral 4-06 tab, PO, l Tablet 15:52: BID, # 6 Eaton 00 tab, 0 Refill(s) Ondansetron 2017 Yes 4 mg = 1 Me moria 4 MG Oral 4-06 tab, PO, l Tablet 15:52: Q8H, 0 Nader [Zofran] 00 Refill(s) clopidogrel 2017 Yes 75 mg = 1 M emoria 75 MG Oral 4-06 tab, PO, l Tablet 15:52: Daily, 0 Eaton [Plavix] 00 Refill(s) amitriptyli 2017 Yes 10 [...] cholecalcif Yes 1,000 Memor ia mechelle 1000 406 IntlUnit = l intl units 15:52: 1 cap, PO, H ermann oral 00 Daily, 0 capsule Refill(s) Furosemide Yes 20 mg = 1 Me moria 20 MG Oral 4-06 tab, PO, l Tablet 15:52: Daily, 0 Nader [Lasix] 00 Refill(s) Insulin, 2017 Yes SUB-Q, Memoria Aspart, 4-06 TID-Before l Human 100 15:52: Meals, 0 Herm kun UNT/ML 00 Refill(s) Injectable Solution [NovoLog] Buspar 2017 Yes 15 mg, PO, Memor ia 4-06 BID, 0 l 15:52: Refill(s) Eaton 00 Citalopram Yes 40 mg = 1 [...] , BID, 0 l 0.05 15:52: Refill(s) Eaton MG/ACTUAT 00 Dry Powder Inhaler Miralax Yes 17 gm, PO, Jim maya 4-06 Daily, 0 l 15:52: Refill(s) Eaton 00 magnesium Yes 500 mg = 1 Me moria oxide 500 - tab, PO, l mg oral 15:52: Daily, 0 Gilbert n tablet 00 Refill(s) Tylenol Yes 500 mg, Memoria 4-06 PO, 0 l 15:52: Refill(s) Nader 00 200 ACTUAT Yes 2 puff, Jim maya Albuterol - INHALATION l 0.09 15:52: , Q4H, 0 Eaton MG/ACTUAT 00 Refill(s) Dry Powder Inhaler ascorbic [...] [place] 06 0 l 15:52: Refill(s) Nader 00 Docusate Yes 100 mg = 1 Mem oria Sodium 100 -06 cap, PO, l MG Oral 15:52: BID, 0 Eaton Capsule 00 Refill(s) [Colace] NovoLIN Yes SUB-Q, 0 Memori a 70/30 4-06 Refill(s) l 15:52: Eaton 00 Metformin 2017 Yes 1,000 mg = [...] tab, PO, l Tablet 15:52: Q8H, 0 Eaton [Zofran] 00 Refill(s) clopidogrel 2017 Yes 75 mg = 1 M emoria 75 MG Oral 4-06 tab, PO, l Tablet 15:52: Daily, 0 Nader [Plavix] 00 Refill(s) amitriptyli 2017 Yes 10 mg = 1 M emoria ne 10 mg 4-06 tab, PO, l oral tablet 15:52: Bedtime, # Eaton 00 30 tab, 1 Refill(s) Omeprazole 2017 [...] tab, PO, l Tablet 15:52: Daily, 0 Eaton [Lasix] 00 Refill(s) Insulin, Yes SUB-Q, Memoria Aspart, 07-02 TID-Before l Human 100 15:52: Meals, 0 Herm kun UNT/ML 00 Refill(s) Injectable Solution [NovoLog] Buspar Yes 15 mg, PO, Memor ia 07-02 BID, 0 l 15:52: Refill(s) Nader Citalopram Yes 40 mg = 1 Me moria 40 MG Oral -06 tab, PO, l Tablet 15:52: Daily, 0 Eaton [Celexa] 00 Refill(s) aspirin 81 Yes 81 mg = 1 Me moria mg tablet, -06 tab, PO, l enteric 15:52: Daily, # Gilbert n coated 00 90 tab, 3 Refill(s) Vitamin B Yes 1 tab, PO, Me moria Complex - Daily, 0 l oral tablet 15:52: Refill(s) H ermann 00 Fluticasone Yes INHALATION Memoria propionate 07-02 , BID, 0 l 0.05 15:52: Refill(s) Eaton MG/ACTUAT 00 Dry Powder Inhaler Miralax Yes 17 gm, PO, Jim maya 07-02 Daily, 0 l 15:52: Refill(s) Eaton 00 magnesium Yes 500 mg = 1 Me moria oxide 500 -06 tab, PO, l mg oral 15:52: Daily, 0 Gilbert n tablet 00 Refill(s) Tylenol Yes 500 mg, Memoria -06 PO, 0 l 15:52: Refill(s) Nader 00 Citalopram Citalopram Yes Pricila 1 tablet Common Hydrobromid Hydrobromid [facility] Vitamin D Vitamin D Yes Pricila 1 tablet Common [facility] Metformin Metformin Yes Pricila 1 tablet Common HCl HCl [facility] meal [facility] Vitamin C Vitamin C Yes Pricila as Comm on [facility] directed [facility] Aspirin Aspirin Yes Pricila 1 tablet Comm on Adult Low Adult Low [facility] Strength Strength [facility] Gabapentin Gabapentin Yes Pricila 2 capsules Common [facility] Vitamin B Vitamin B Yes P[facility] Aspirin Aspirin No 1{table QD Aspirin [...] MG de 20 MG Citalopram Citalopram No Citalopram Hydrobromid Hydrobromid [...] Complex - Complex - Complex - Vitamin B Vitamin B No Vitamin B [...] 5 MCG/HR _to_ski ine 5 n} MCG/HR Gabapentin Gabapentin No TID Gabapentin 300 MG [...] Gabapentin 100 MG 100 MG 100 MG Magnesium Magnesium No 1{table QD Magnesium 500 MG 500 MG t_with_ 500 MG a_meal} Zinc 50 MG Zinc 50 MG No 1{table QD Zinc 50 MG t} Fish Oil Fish Oil No Fish Oil Buprenorphi Buprenorphi No 1{patch Buprenorph ne 5 MCG/HR ne 5 MCG/HR _to_ski ine 5 n} MCG/HR Vitamin C Vitamin C No Vitamin C 500 MG 500 MG 500 MG Pregabalin Pregabalin No 1{capsu Pregabalin 75 MG 75 MG le} 75 MG DULoxetine DULoxetine No 1{capsu QD DULoxetine [...] MG de 20 MG NovoLIN NovoLIN No BID NovoLIN 70/30 [...] MG de 40 MG Gabapentin Gabapentin No Gabapentin 100 MG 100 MG 100 MG Aspirin Aspirin No 1{table QD Aspirin Adult Low Adult Low t} Adult Low Strength 81 Strength 81 Strength MG MG 81 MG Metoprolol Metoprolol No 1{capsu QD Metoprolol Succinate Succinate le} Succinate 25 MG 25 MG 25 MG Zinc 50 MG Zinc 50 MG No 1{table QD Zinc 50 MG t} Fish Oil Fish Oil No Fish Oil Buprenorphi Buprenorphi No 1{patch Buprenorph ne 5 MCG/HR ne 5 MCG/HR _to_ski ine 5 n} MCG/HR Vitamin C Vitamin C No Vitamin C 500 MG 500 MG 500 MG Vitamin C Vitamin C No Vitamin C 500 MG 500 MG 500 MG Pregabalin Pregabalin No 1{capsu Pregabalin 75 MG 75 MG le} 75 MG DULoxetine DULoxetine No 1{capsu QD DULoxetine [...] MG de 20 MG NovoLIN NovoLIN No BID NovoLIN 70/30 [...] MG de 40 MG Gabapentin Gabapentin No Gabapentin 100 MG 100 MG 100 MG Aspirin Aspirin No 1{table QD Aspirin Adult Low Adult Low t} Adult Low Strength 81 Strength 81 Strength MG MG 81 MG Zinc 50 MG Zinc 50 MG No 1{table QD Zinc 50 MG t} Fish Oil Fish Oil No Fish Oil Pregabalin Pregabalin No 1{capsu Pregabalin 75 MG 75 MG le} 75 MG Vitamin C Vitamin C No Vitamin C 500 MG 500 MG 500 MG DULoxetine DULoxetine No 1{capsu QD DULoxetine HCl 60 MG HCl 60 MG le} HCl 60 MG Buprenorphi Buprenorphi No 1{patch Buprenorph ne 5 MCG/HR ne 5 MCG/HR _to_ski ine 5 n} MCG/HR NovoLIN NovoLIN No NovoLIN 70/30 70/30 70/30 [...] MG de 20 MG NovoLIN NovoLIN No BID NovoLIN 70/30 [...] MG de 40 MG Gabapentin Gabapentin No Gabapentin 100 MG 100 MG 100 MG Aspirin Aspirin No 1{table QD Aspirin Adult Low Adult Low t} Adult Low Strength 81 Strength 81 Strength MG MG 81 MG Aspirin Aspirin No 1{table QD Aspirin Adult Low Adult Low t} Adult Low Strength 81 Strength 81 Strength MG MG 81 MG Fish Oil Fish Oil No Fish Oil Aspirin Aspirin No 1{table QD Aspirin Adult Low Adult Low t} Adult Low Strength 81 Strength 81 Strength MG MG 81 MG DULoxetine DULoxetine No 1{capsu QD DULoxetine HCl 60 MG HCl 60 MG le} HCl 60 MG Gabapentin Gabapentin No Gabapentin 100 MG 100 MG 100 MG Magnesium Magnesium No 1{table QD Magnesium 500 MG 500 MG t_with_ 500 MG a_meal} Zinc 50 MG Zinc 50 MG No 1{table QD Zinc 50 MG t} Gabapentin Gabapentin No TID Gabapentin 300 MG 300 MG 300 MG Pregabalin Pregabalin No 1{capsu Pregabalin 75 MG 75 MG le} 75 MG Metoprolol Metoprolol No 1{capsu QD Metoprolol [...] Base) Base) (90 Base) MCG/ACT MCG/ACT MCG/ACT Buprenorphi Buprenorphi No 1{patch Buprenorph ne 5 MCG/HR ne 5 MCG/HR _to_ski ine 5 n} MCG/HR Citalopram Citalopram No Citalopram Hydrobromid Hydrobromid Hydrobromi e 40 MG e 40 MG de 40 MG Citalopram Citalopram No Citalopram Hydrobromid Hydrobromid Hydrobromi e 20 MG e 20 MG de 20 MG NovoLIN NovoLIN No BID NovoLIN 70/30 70/30 70/30 FlexPen FlexPen FlexPen (70-30) 100 (70-30) 100 (70-30) UNIT/ML UNIT/ML 100 UNIT/ML Aspirin Aspirin No 1{table QD Aspirin Adult Low Adult Low t} Adult Low Strength 81 Strength 81 Strength MG MG 81 MG NovoLIN NovoLIN No BID NovoLIN 70/30 70/30 70/30 FlexPen FlexPen FlexPen (70-30) 100 (70-30) 100 (70-30) UNIT/ML UNIT/ML 100 UNIT/ML Zinc 50 MG Zinc 50 MG No 1{table QD Zinc 50 MG t} Gabapentin Gabapentin No Gabapentin 100 MG 100 MG 100 MG Fish Oil Fish Oil No Fish Oil DULoxetine DULoxetine No 1{capsu QD DULoxetine HCl 60 MG HCl 60 MG le} HCl 60 MG Pregabalin Pregabalin No 1{capsu Pregabalin 75 MG 75 MG le} 75 MG Metoprolol Metoprolol No 1{capsu QD Metoprolol Succinate Succinate le} Succinate 25 MG 25 MG 25 MG Vitamin C Vitamin C No Vitamin C 500 MG 500 MG 500 MG Magnesium Magnesium No 1{table QD Magnesium 500 MG 500 MG t_with_ 500 MG a_meal} Gabapentin Gabapentin No TID Gabapentin 300 MG 300 MG 300 MG Ventolin Ventolin No Ventolin HFA 108 (90 HFA 108 (90 HFA 108 Base) Base) (90 Base) MCG/ACT MCG/ACT MCG/ACT Citalopram Citalopram No Citalopram Hydrobromid Hydrobromid Hydrobromi e 20 MG e 20 MG de 20 MG Buprenorphi Buprenorphi No 1{patch Buprenorph ne 5 MCG/HR ne 5 MCG/HR _to_ski ine 5 n} MCG/HR Citalopram Citalopram No Citalopram Hydrobromid Hydrobromid Hydrobromi e 40 MG e 40 MG de 40 MG Vitamin B Vitamin B No Vitamin B Complex - Complex - Complex - Citalopram Citalopram No Citalopram Hydrobromid Hydrobromid Hydrobromi e 20 MG e 20 MG de 20 MG Zinc 50 MG Zinc 50 MG No 1{table QD Zinc 50 MG t} Pregabalin Pregabalin No 1{capsu Pregabalin 50 MG 50 MG le} 50 MG Fish Oil Fish Oil No Fish Oil NovoLIN NovoLIN No NovoLIN 70/30 70/30 70/30 FlexPen FlexPen FlexPen (70-30) 100 (70-30) 100 (70-30) UNIT/ML UNIT/ML 100 UNIT/ML DULoxetine DULoxetine No 1{capsu QD DULoxetine HCl 60 MG HCl 60 MG le} HCl 60 MG Vitamin C Vitamin C No Vitamin C 500 MG 500 MG 500 MG Omeprazole Omeprazole No QD Omeprazole 40 MG 40 MG 40 MG Ferrous Ferrous No 1{table QD Ferrous Sulfate 325 Sulfate 325 t} Sulfate (65 Fe) MG (65 Fe) MG 325 (65 Fe) MG Ventolin Ventolin No Ventolin HFA 108 (90 HFA 108 (90 HFA 108 Base) Base) (90 Base) MCG/ACT MCG/ACT MCG/ACT Linzess 145 Linzess 145 No QD Linzess mcg mcg 145 mcg Buprenorphi Buprenorphi No 1{patch Buprenorph ne 5 MCG/HR ne 5 MCG/HR _to_ski ine 5 n} MCG/HR Citalopram Citalopram No Citalopram Hydrobromid Hydrobromid Hydrobromi e 20 MG e 20 MG de 20 MG NovoLIN NovoLIN No BID NovoLIN 70/30 70/30 70/30 FlexPen FlexPen FlexPen (70-30) 100 (70-30) 100 (70-30) UNIT/ML UNIT/ML 100 UNIT/ML Gabapentin Gabapentin No Gabapentin 100 MG 100 MG 100 MG Vitamin B Vitamin B No Vitamin B Complex - Complex - Complex - Magnesium Magnesium No 1{table QD Magnesium 500 MG 500 MG t_with_ 500 MG a_meal} Aspirin Aspirin No 1{table QD Aspirin Adult Low Adult Low t} Adult Low Strength 81 Strength 81 Strength MG MG 81 MG Citalopram Citalopram No Citalopram Hydrobromid Hydrobromid Hydrobromi e 40 MG e 40 MG de 40 MG Magnesium Magnesium No 1{table BID Magnesium Oxide 400 Oxide 400 t_as_ne Oxide 400 MG MG eded} MG Gabapentin Gabapentin No TID Gabapentin 300 [...] Date Status Commen ts Source Name Name Pneumovax (PPSV23) Pneumovax (PPSV23) 2022-04-30 Completed [facility] - 14:13:00 [facility] FLUZONE HIGH DOSE FLUZONE HIGH DOSE 2021-12-30 Completed [facility] - OVER 65 OVER 65 14:13:00 [facility] FLUZONE HIGH DOSE FLUZONE HIGH DOSE 2021-12-30 Completed [facility] - OVER 65 OVER 65 14:13:00 [facility] FLUZONE HIGH DOSE FLUZONE HIGH DOSE 2021-12-30 Completed [facility] - OVER 65 OVER 65 14:13:00 [facility] FLUZONE HIGH DOSE FLUZONE HIGH DOSE 2021-12-30 Completed [facility] - OVER 65 OVER 65 14:13:00 [facility] FLUZONE HIGH DOSE FLUZONE HIGH DOSE 2021-12-30 Completed [facility] - OVER 65 OVER 65 14:13:00 [facility] FLUZONE HIGH DOSE FLUZONE HIGH DOSE 2021-12-30 Completed [facility] - OVER 65 OVER 65 14:13:00 [facility] FLUZONE HIGH DOSE FLUZONE HIGH DOSE 2021-12-30 Completed [facility] - OVER 65 OVER 65 14:13:00 [facility] FLUZONE HIGH DOSE FLUZONE HIGH DOSE 2021-12-30 Completed [facility] - OVER 65 OVER 65 14:13:00 [facility] FLUZONE HIGH DOSE FLUZONE HIGH DOSE 2021-12-30 Completed [facility] - OVER 65 OVER 65 14:13:00 [facility] FLUZONE HIGH DOSE FLUZONE HIGH DOSE 2021-12-30 Completed [facility] - OVER 65 OVER 65 14:13:00 [facility] FLUZONE HIGH DOSE FLUZONE HIGH DOSE 2021-12-30 Completed [facility] - OVER 65 OVER 65 14:13:00 [facility] FLUZONE HIGH DOSE FLUZONE HIGH DOSE 2021-12-30 Completed [facility] - OVER 65 OVER 65 14:13:00 [facility] FLUZONE HIGH DOSE FLUZONE HIGH DOSE 2021-12-30 Completed [facility] - OVER 65 OVER 65 14:13:00 [facility] FLUZONE HIGH DOSE FLUZONE HIGH DOSE 2021-12-30 Completed [facility] - OVER 65 OVER 65 14:13:00 [facility] FLUZONE HIGH DOSE FLUZONE HIGH DOSE 2021-12-30 Completed [facility] - OVER 65 OVER 65 14:13:00 [facility] FLUZONE HIGH DOSE FLUZONE HIGH DOSE 2021-12-30 Completed [facility] - OVER 65 OVER 65 14:13:00 [facility] FLUZONE HIGH DOSE FLUZONE HIGH DOSE 2021-12-30 Completed [facility] - OVER 65 OVER 65 14:13:00 [facility] FLUZONE HIGH DOSE FLUZONE HIGH DOSE 2021-12-30 Completed [facility] - OVER 65 OVER 65 14:13:00 [facility] FLUZONE HIGH DOSE FLUZONE HIGH DOSE 2021-12-30 Completed [facility] - OVER 65 OVER 65 14:13:00 [facility] FLUZONE HIGH DOSE FLUZONE HIGH DOSE 2021-12-30 Completed [facility] - OVER 65 OVER 65 14:13:00 [facility] FLUZONE HIGH DOSE FLUZONE HIGH DOSE 2021-12-30 Completed [facility] - OVER 65 OVER 65 14:13:00 [facility] FLUZONE HIGH DOSE FLUZONE HIGH DOSE 2021-12-30 Completed [facility] - OVER 65 OVER 65 14:13:00 [facility] FLUZONE HIGH DOSE FLUZONE HIGH DOSE 2021-12-30 Completed [facility] - OVER 65 OVER 65 14:13:00 [facility] FLUZONE HIGH DOSE FLUZONE HIGH DOSE 2021-12-30 Completed [facility] - OVER 65 OVER 65 14:13:00 [facility] FLUZONE HIGH DOSE FLUZONE HIGH DOSE 2021-12-30 Completed [facility] - OVER 65 OVER 65 14:13:00 [facility] Shingrix Shingrix 2021-01-26 Completed [facility] - 09:39:00 [facility] Shingrix Shingrix 2021-01-26 Completed [facility] - 09:39:00 [facility] Shingrix Shingrix 2021-01-26 Completed [facility] - 09:39:00 [facility] Shingrix Shingrix 2021-01-26 Completed [facility] - 09:39:00 [facility] Shingrix Shingrix 2021-01-26 Completed [facility] - 09:39:00 [facility] Shingrix Shingrix 2021-01-26 Completed [facility] - 09:39:00 [facility] Shingrix Shingrix 2021-01-26 Completed [facility] - 09:39:00 [facility] Shingrix Shingrix 2021-01-26 Completed [facility] - 09:39:00 [facility] Shingrix Shingrix 2021-01-26 Completed [facility] - 09:39:00 [facility] Shingrix Shingrix 2021-01-26 Completed [facility] - 09:39:00 [facility] Shingrix Shingrix 2021-01-26 Completed [facility] - 09:39:00 [facility] Shingrix Shingrix 2021-01-26 Completed [facility] - 09:39:00 [facility] Shingrix Shingrix 2021-01-26 Completed [facility] - 09:39:00 [facility] Shingrix Shingrix 2021-01-26 Completed [facility] - 09:39:00 [facility] Shingrix Shingrix 2021-01-26 Completed [facility] - 09:39:00 [facility] Shingrix Shingrix 2021-01-26 Completed [facility] - 09:39:00 [facility] Shingrix Shingrix 2021-01-26 Completed [facility] - 09:39:00 [facility] Shingrix Shingrix 2021-01-26 Completed [facility] - 09:39:00 [facility] Shingrix Shingrix 2021-01-26 Completed [facility] - 09:39:00 [facility] Shingrix Shingrix 2021-01-26 Completed [facility] - 09:39:00 [facility] Shingrix Shingrix 2021-01-26 Completed [facility] - 09:39:00 [facility] Shingrix Shingrix 2021-01-26 Completed [facility] - 09:39:00 [facility] Shingrix Shingrix 2021-01-26 Completed [facility] - 09:39:00 [facility] Shingrix Shingrix 2021-01-26 Completed [facility] - 09:39:00 [facility] Shingrix Shingrix 2021-01-26 Completed [facility] - 09:39:00 [facility] Shingrix Shingrix 2021-01-26 Completed [facility] - 09:39:00 [facility] Shingrix Shingrix 2021-01-26 Completed [facility] - 09:39:00 [facility] Sh[facility] 2021-01-26 Completed [facility] - 09[facility]39:00 [facility] Sh[facility] 2021-01-26 Completed [facility] - 09:39:00 [facility] Sh[facility] 2021-01-26 Completed [facility] - 09[facility]39:00 [facility] Sh[facility] 2021-01-26 Completed [facility] - 09[facility]39:00 [facility] Sh[facility] 2021-01-26 Completed [facility] - 09:39:00 [facility] Sh[facility] 2021-01-26 Completed [facility] - 09[facility]39:00 [facility] Sh[facility] 2021-01-26 Completed [facility] - 09[facility]39:00 [facility] Sh[facility] 2021-01-26 Completed [facility] - 09:39:00 [facility] Sh[facility] 2021-01-26 Completed [facility] - 09[facility]39:00 [facility] 2021-01-26 Completed [facility] - 09:39:00 [facility] 2021-01-26 Completed [facility] - 09[facility]39:00 [facility] 2021-01-26 Completed [facility] - 09:39:00 [facility] 2021-01-26 Completed [facility] - 09:39:00 [facility] 2021-01-26 Completed [facility] - 09[facility]39:00 [facility] Shingrix Shingrix 2021-01-26 [facility] 09:39:00 [facility] Shingrix Shingrix 2021-01-26 Com[facility] - 09:39:00 [facility] Shingrix Shingrix 2021-01-26 Completed [facility] - 09:39:00 [facility] Shingrix Shingrix 2021-01-26 Completed [facility] - 09:39:00 [facility] Shingrix Shingrix 2021-01-26 Completed [facility] - 09:39:00 [facility] Shingrix Shingrix 2021-01-26 Completed [facility] - 09:39:00 [facility] Shingrix Shingrix 2021-01-26 Completed [facility] - 09:39:00 [facility] Shingrix Shingrix 2021-01-26 Completed [facility] - 09:39:00 [facility] Shingrix Shingrix 2021-01-26 Completed [facility] - 09:39:00 [facility] Shingrix Shingrix 2021-01-26 Completed [facility] - 09:39:00 [facility] Shingrix Shingrix 2021-01-26 Completed [facility] - 09:39:00 [facility] Shingrix Shingrix 2021-01-26 Completed [facility] 09:39:00 [facility] Shingrix Shingrix 2021-01-26 Completed [facility] 09:39:00 [facility] Shingrix Shingrix 2021-01-26 Completed [facility] - 09:39:00 [facility] Shingrix Shingrix 2021-01-26 Completed [facility] - 09:39:00 [facility] Shingrix Shingrix 2021-01-26 Completed [facility] - 09:39:00 [facility] Shingrix Shingrix 2021-01-26 Completed [facility] - 09:39:00 [facility] Shingrix Shingrix 2021-01-26 Completed [facility] - 09:39:00 [facility] Shingrix Shingrix 2021-01-26 Completed [facility] - 09:39:00 [facility] Shingrix Shingrix 2021-01-26 Completed [facility] - 09:39:00 [facility] Shingrix Shingrix 2021-01-26 Completed [facility] - 09:39:00 [facility] Shingrix Shingrix 2021-01-26 Completed [facility] - 09:39:00 [facility] Shingrix Shingrix 2021-01-26 Completed [facility] - 09:39:00 [facility] Shingrix Shingrix 2021-01-26 Completed [facility] - 09:39:00 [facility] Fluzone Fluzone 2020-12-26 Completed [facility] - 09:38:00 [facility] Fluzone Fluzone 2020-12-26 Completed [facility] - 09:38:00 [facility] Fluzone Fluzone 2020-12-26 Completed [facility] 09:38:00 [facility] Fluzone Fluzone 2020-12-26 Completed [facility] 09:38:00 [facility] Fluzone Fluzone 2020-12-26 Completed [facility] 09:38:00 [facility] Fluzone Fluzone 2020-12-26 Completed [facility] 09:38:00 [facility] Fluzone Fluzone 2020-12-26 Completed [facility] 09:38:00 [facility] Fluzone Fluzone 2020-12-26 Completed [facility] 09:38:00 [facility] Fluzone Fluzone 2020-12-26 Completed [facility] 09:38:00 [facility] Fluzone Fluzone 2020-12-26 Completed [facility] 09:38:00 [facility] Fluzone Fluzone 2020-12-26 Completed [facility] 09:38:00 [facility] Fluzone Fluzone 2020-12-26 Completed [facility] 09:38:00 [facility] Fluzone Fluzone 2020-12-26 Completed [facility] 09:38:00 [facility] Fluzone Fluzone 2020-12-26 Completed [facility] 09:38:00 [facility] Fluzone Fluzone 2020-12-26 Completed [facility] 09:38:00 [facility] Fluzone Fluzone 2020-12-26 Completed [facility] 09:38:00 [facility] Fluzone Fluzone 2020-12-26 Completed [facility] 09:38:00 [facility] Fluzone Fluzone 2020-12-26 Completed [facility] 09:38:00 [facility] Fluzone Fluzone 2020-12-26 Completed [facility] 09:38:00 [facility] Fluzone Fluzone 2020-12-26 Completed [facility] 09:38:00 [facility] Fluzone Fluzone 2020-12-26 Completed [facility] 09:38:00 [facility] Fluzone Fluzone 2020-12-26 Completed [facility] 09:38:00 [facility] Fluzone Fluzone 2020-12-26 Completed [facility] 09:38:00 [facility] Fluzone Fluzone 2020-12-26 Completed [facility] 09:38:00 [facility] Fluzone Fluzone 2020-12-26 Completed [facility] 09:38:00 [facility] Fluzone Fluzone 2020-12-26 Completed [facility] 09:38:00 [facility] Fluzone Fluzone 2020-12-26 Completed [facility] 09:38:00 [facility] Fluzone Fluzone 2020-12-26 Completed [facility] 09:38:00 [facility] Fluzone Fluzone 2020-12-26 Completed [facility] - 09:38:00 [facility] Fluzone Fluzone 2020-12-26 Completed [facility] - 09:38:00 [facility] Fluzone Fluzone 2020-12-26 Completed [facility] 09:38:00 [facility] Fluzone Fluzone 2020-12-26 Completed [facility] - 09:38:00 [facility] Fluzone Fluzone 2020-12-26 Completed [facility] - 09:38:00 [facility] Fluzone Fluzone 2020-12-26 Completed [facility] - 09:38:00 [facility] Fluzone Fluzone 2020-12-26 Completed [facility] - 09:38:00 [facility] Fluzone Fluzone 2020-12-26 Completed [facility] - 09:38:00 [facility] Fluzone Fluzone 2020-12-26 Completed [facility] - 09:38:00 [facility] Fluzone Fluzone 2020-12-26 Completed [facility] - 09:38:00 [facility] Fluzone Fluzone 2020-12-26 Completed [facility] - 09:38:00 [facility] Fluzone Fluzone 2020-12-26 Completed [facility] - 09:38:00 [facility] Fluzone Fluzone 2020-12-26 Completed [facility] - 09:38:00 [facility] Fluzone Fluzone 2020-12-26 Completed [facility] - 09:38:00 [facility] Fluzone Fluzone 2020-12-26 Completed [facility] - 09:38:00 [facility] Fluzone Fluzone 2020-12-26 Completed [facility] - 09:38:00 [facility] Fluzone Fluzone 2020-12-26 Completed [facility] - 09:38:00 [facility] Fluzone Fluzone 2020-12-26 Completed [facility] - 09:38:00 [facility] Fluzone Fluzone 2020-12-26 Completed [facility] - 09:38:00 [facility] Fluzone Fluzone 2020-12-26 Completed [facility] - 09:38:00 [facility] Fluzone Fluzone 2020-12-26 Completed [facility] - 09:38:00 [facility] Fluzone Fluzone 2020-12-26 Completed [facility] - 09:38:00 [facility] Fluzone Fluzone 2020-12-26 Completed [facility] - 09:38:00 [facility] Fluzone Fluzone 2020-12-26 Completed [facility] - 09:38:00 [facility] Fluzone Fluzone 2020-12-26 Completed [facility] - 09:38:00 [facility] Fluzone Fluzone 2020-12-26 Completed [facility] - 09:38:00 [facility] Fluzone Fluzone 2020-12-26 Completed [facility] - 09:38:00 [facility] Fluzone Fluzone 2020-12-26 Completed [facility] - 09:38:00 [facility] Fluzone Fluzone 2020-12-26 Completed [facility] - 09:38:00 [facility] Fluzone Fluzone 2020-12-26 Completed [facility] - 09:38:00 [facility] Fluzone Fluzone 2020-12-26 Completed [facility] - 09:38:00 [facility] Fluzone Fluzone 2020-12-26 Completed [facility] - 09:38:00 [facility] Fluzone Fluzone 2020-12-26 Completed [facility] - 09:38:00 [facility] Fluzone Fluzone 2020-12-26 Completed [facility] - 09:38:00 [facility] Fluzone Fluzone 2020-12-26 Completed [facility] - 09:38:00 [facility] Fluzone Fluzone 2020-12-26 Completed [facility] - 09:38:00 [facility] Fluzone Fluzone 2020-12-26 Completed [facility] - 09:38:00 [facility] SARS-COV-2 COVID-19 2020-11-15 Completed [facility]ERNA VACCINE 00:00:00 [facility] SARS-COV-2 COVID-19 2020-11-15 Completed [facility] MODERNA VACCINE 00:00:00 [facility] SARS-COV-2 COVID-19 2020-06-03 Completed [facility] MODERNA VACCINE 00:00:00 [facility] SARS-COV-2 COVID-19 2020-06-03 Completed [facility] MODERNA VACCINE 00:00:00 [facility] SARS-COV-2 COVID-19 2020-05-06 Completed [facility] MODERNA VACCINE 00:00:00 [facility] SARS-COV-2 COVID-19 2020-05-06 Completed [facility] MODERNA VACCINE 00:00:00 [facility] Prevnar 13 (PCV13) Prevnar 13 (PCV13) 2020-03-28 Completed [facility] - 15:01:00 [facility] Prevnar 13 (PCV13) Prevnar 13 (PCV13) 2020-03-28 Completed [facility] - 15:01:00 [facility] Prevnar 13 (PCV13) Prevnar 13 (PCV13) 2020-03-28 Completed [facility] - 15:01:00 [facility] Prevnar 13 (PCV13) Prevnar 13 (PCV13) 2020-03-28 Completed [facility] - 15:01:00 [facility] Prevnar 13 (PCV13) Prevnar 13 (PCV13) 2020-03-28 Completed [facility] - 15:01:00 [facility] Prevnar 13 (PCV13) Prevnar 13 (PCV13) 2020-03-28 Completed [facility] - 15:01:00 [facility] Prevnar 13 (PCV13) Prevnar 13 (PCV13) 2020-03-28 Completed [facility] - 15:01:00 [facility] Prevnar 13 (PCV13) Prevnar 13 (PCV13) 2020-03-28 Completed [facility] - 15:01:00 [facility] Prevnar 13 (PCV13) Prevnar 13 (PCV13) 2020-03-28 Completed [facility] - 15:01:00 [facility] Prevnar 13 (PCV13) Prevnar 13 (PCV13) 2020-03-28 Completed [facility] - 15:01:00 [facility] Prevnar 13 (PCV13) Prevnar 13 (PCV13) 2020-03-28 Completed [facility] - 15:01:00 [facility] Prevnar 13 (PCV13) Prevnar 13 (PCV13) 2020-03-28 Completed [facility] - 15:01:00 [facility] Prevnar 13 (PCV13) Prevnar 13 (PCV13) 2020-03-28 Completed [facility] - 15:01:00 [facility] Prevnar 13 (PCV13) Prevnar 13 (PCV13) 2020-03-28 Completed [facility] - 15:01:00 [facility] Prevnar 13 (PCV13) Prevnar 13 (PCV13) 2020-03-28 Completed [facility] - 15:01:00 [facility] Prevnar 13 (PCV13) Prevnar 13 (PCV13) 2020-03-28 Completed [facility] - 15:01:00 [facility] Prevnar 13 (PCV13) Prevnar 13 (PCV13) 2020-03-28 Completed [facility] - 15:01:00 [facility] Prevnar 13 (PCV13) Prevnar 13 (PCV13) 2020-03-28 Completed [facility] - 15:01:00 [facility] Prevnar 13 (PCV13) Prevnar 13 (PCV13) 2020-03-28 Completed [facility] - 15:01:00 [facility] Prevnar 13 (PCV13) Prevnar 13 (PCV13) 2020-03-28 Completed [facility] - 15:01:00 [facility] Prevnar 13 (PCV13) Prevnar 13 (PCV13) 2020-03-28 Completed [facility] - 15:01:00 [facility] Prevnar 13 (PCV13) Prevnar 13 (PCV13) 2020-03-28 Completed [facility] - 15:01:00 [facility] Prevnar 13 (PCV13) Prevnar 13 (PCV13) 2020-03-28 Completed [facility] - 15:01:00 [facility] Prevnar 13 (PCV13) Prevnar 13 (PCV13) 2020-03-28 Completed [facility] - 15:01:00 [facility] Prevnar 13 (PCV13) Prevnar 13 (PCV13) 2020-03-28 Completed [facility] - 15:01:00 [facility] Prevnar 13 (PCV13) Prevnar 13 (PCV13) 2020-03-28 Completed [facility] - 15:01:00 [facility] Prevnar 13 (PCV13) Prevnar 13 (PCV13) 2020-03-28 Completed [facility] - 15:01:00 [facility] Prevnar 13 (PCV13) Prevnar 13 (PCV13) 2020-03-28 Completed [facility] - 15:01:00 [facility] Prevnar 13 (PCV13) Prevnar 13 (PCV13) 2020-03-28 Completed [facility] - 15:01:00 [facility] Prevnar 13 (PCV13) Prevnar 13 (PCV13) 2020-03-28 Completed [facility] - 15:01:00 [facility] Prevnar 13 (PCV13) Prevnar 13 (PCV13) 2020-03-28 Completed [facility] - 15:01:00 [facility] Prevnar 13 (PCV13) Prevnar 13 (PCV13) 2020-03-28 Completed [facility] - 15:01:00 [facility] Prevnar 13 (PCV13) Prevnar 13 (PCV13) 2020-03-28 Completed [facility] - 15:01:00 [facility] Prevnar 13 (PCV13) Prevnar 13 (PCV13) 2020-03-28 Completed [facility] - 15:01:00 [facility] Prevnar 13 (PCV13) Prevnar 13 (PCV13) 2020-03-28 Completed [facility] - 15:01:00 [facility] Prevnar 13 (PCV13) Prevnar 13 (PCV13) 2020-03-28 Completed [facility] - 15:01:00 [facility] Prevnar 13 (PCV13) Prevnar 13 (PCV13) 2020-03-28 Completed [facility] - 15:01:00 [facility] Prevnar 13 (PCV13) Prevnar 13 (PCV13) 2020-03-28 Completed [facility] - 15:01:00 [facility] Prevnar 13 (PCV13) Prevnar 13 (PCV13) 2020-03-28 Completed [facility] - 15:01:00 [facility] Prevnar 13 (PCV13) Prevnar 13 (PCV13) 2020-03-28 Completed [facility] - 15:01:00 [facility] Prevnar 13 (PCV13) Prevnar 13 (PCV13) 2020-03-28 Completed [facility] - 15:01:00 [facility] Prevnar 13 (PCV13) Prevnar 13 (PCV13) 2020-03-28 Completed [facility] - 15:01:00 [facility] Prevnar 13 (PCV13) Prevnar 13 (PCV13) 2020-03-28 Completed [facility] - 15:01:00 [facility] Prevnar 13 (PCV13) Prevnar 13 (PCV13) 2020-03-28 Completed [facility] - 15:01:00 [facility] Prevnar 13 (PCV13) Prevnar 13 (PCV13) 2020-03-28 Completed [facility] - 15:01:00 [facility] Prevnar 13 (PCV13) Prevnar 13 (PCV13) 2020-03-28 Completed [facility] - 15:01:00 [facility] Prevnar 13 (PCV13) Prevnar 13 (PCV13) 2020-03-28 Completed [facility] - 15:01:00 [facility] Prevnar 13 (PCV13) Prevnar 13 (PCV13) 2020-03-28 Completed [facility] - 15:01:00 [facility] Prevnar 13 (PCV13) Prevnar 13 (PCV13) 2020-03-28 Completed [facility] - 15:01:00 [facility] Prevnar 13 (PCV13) Prevnar 13 (PCV13) 2020-03-28 Completed [facility] - 15:01:00 [facility] Prevnar 13 (PCV13) Prevnar 13 (PCV13) 2020-03-28 Completed [facility] - 15:01:00 [facility] Prevnar 13 (PCV13) Prevnar 13 (PCV13) 2020-03-28 Completed [facility] - 15:01:00 [facility] Prevnar 13 (PCV13) Prevnar 13 (PCV13) 2020-03-28 Completed [facility] - 15:01:00 [facility] Prevnar 13 (PCV13) Prevnar 13 (PCV13) 2020-03-28 Completed [facility] - 15:01:00 [facility] Prevnar 13 (PCV13) Prevnar 13 (PCV13) 2020-03-28 Completed [facility] - 15:01:00 [facility] Prevnar 13 (PCV13) Prevnar 13 (PCV13) 2020-03-28 Completed [facility] - 15:01:00 [facility] Prevnar 13 (PCV13) Prevnar 13 (PCV13) 2020-03-28 Completed [facility] - 15:01:00 [facility] Prevnar 13 (PCV13) Prevnar 13 (PCV13) 2020-03-28 Completed [facility] - 15:01:00 [facility] Prevnar 13 (PCV13) Prevnar 13 (PCV13) 2020-03-28 Completed [facility] - 15:01:00 [facility] Prevnar 13 (PCV13) Prevnar 13 (PCV13) 2020-03-28 Completed [facility] - 15:01:00 [facility] Prevnar 13 (PCV13) Prevnar 13 (PCV13) 2020-03-28 Completed [facility] - 15:01:00 [facility] Prevnar 13 (PCV13) Prevnar 13 (PCV13) 2020-03-28 Completed [facility] - 15:01:00 [facility] Prevnar 13 (PCV13) Prevnar 13 (PCV13) 2020-03-28 Completed [facility] - 15:01:00 [facility] Prevnar 13 (PCV13) Prevnar 13 (PCV13) 2020-03-28 Completed [facility] - 15:01:00 [facility] Prevnar 13 (PCV13) Prevnar 13 (PCV13) 2020-03-28 Completed [facility] - 15:01:00 [facility] Prevnar 13 (PCV13) Prevnar 13 (PCV13) 2020-03-28 Completed [facility] 15:01:00 [facility] Influenza High Dose 2020-01-11 Completed [facility] 00:00:00 [facility] Influenza High Dose 2020-01-11 Completed [facility] 00:00:00 [facility] Influenza High Dose 2019-01-20 Completed [facility] 00:00:00 [facility] Pneumococcal 2019-01-20 Completed [facility] Polysaccharide, 00:[facility]:00 [place] [facility]PNEUMOVAX[facility] Influenza High Dose 2019-01-20 Completed [facility] 00:00:00 [facility] Pneumococcal 2019-01-20 Completed [facility] Polysaccharide, 00:00:00 [place] [facility] PPSV23 (PNEUMOVAX) [facility] Pneumococcal 2016-12-11 Completed [facility] Polysaccharide, 00:00:00 [place] [facility] PPSV23 (PNEUMOVAX) [facility] Pneumococcal 2016-12-11 Completed [facility] Polysaccharide, 00:00:00 [place] [facility] PPSV23 (PNEUMOVAX) [facility] Pneumococcal 2016-12-11 [...] [facility]ter (Pneumovax) Pneumococcal 2016-12-[address] [facility] Polysaccharide 00:00:00 [facility] (Pneumovax) Pneumococcal 2016-12-11 Completed [facility] Polysaccharide 00:00:00 [facility] (Pneumovax) Vital Signs Vital Name Observation Time Observation Value Comments Source height 2022-04-30 14:00:00 63.00 [in_i] [facility] weight 2022-04-30 14:00:00 139 [lb_av] [facility] temperature 2022-04-30 14:00:00 97.3 [degF] [facility] bmi 2022-04-30 14:00:00 24.62 kg/m2 [facility] oximetry 2022-04-30 14:00:00 95 % [facility] respiratory rate 2022-04-30 14:00:00 16 /min Comm on [facility] blood pressure 2022-04-30 14:00:00 132 mm[Hg] [facility] systolic [facility] blood pressure 2022-04-30 14:00:00 76 mm[Hg] [facility] diastolic [facility] Systolic blood 2022-03-17 20:44:00 143 mm[Hg] [facility] pressure Medicine Diastolic blood 2022-03-17 20:44:00 73 mm[Hg] [facility] Medicine Heart rate 2022-03-17 20:44:00 92 /min [facility] Body height 2022-03-17 20:44:00 157.5 cm [facility] Body weight 2022-03-17 20:44:00 62.596 kg [facility] BMI 2022-03-17 20:44:00 25.24 kg/m2 [facility] Systolic blood 2022-01-22 16:12:00 140 mm[Hg] [facility] pressure Medicine Diastolic blood 2022-01-22 16:12:00 60 mm[Hg] [facility] Medicine Heart rate 2022-01-22 16:12:00 80 /min [facility] Body temperature 2022-01-22 16:12:00 37 [facility] Body height 2022-01-22 16:12:00 157.5 cm [facility] Body weight 2022-01-22 16:12:00 63.413 kg [facility] BMI 2022-01-22 16:12:00 25.57 kg/m2 [facility] height 2022-01-16 11:30:00 63.00 [in_i] [facility] weight 2022-01-16 11:30:00 134 [lb_av] [facility] bmi 2022-01-16 11:30:00 23.73 kg/m2 [facility] blood pressure 2022-01-16 11:30:00 115 mm[Hg] [facility] - systolic [facility] blood pressure 2022-01-16 11:30:00 65 mm[Hg] [facility] height 2021-12-30 13:50:00 63.00 [in_i] [facility] weight 2021-12-30 13:50:00 135 [lb_av] [facility] temperature 2021-12-30 13:50:00 98.4 [degF] [facility] bmi 2021-12-30 13:50:00 23.91 kg/m2 [facility] oximetry 2021-12-30 13:50:00 93 % [facility] respiratory rate 2021-12-30 13:50:00 16 /min [facility] on [facility] blood pressure 2021-12-30 13:50:00 136 mm[Hg] [facility] - systolic [facility] blood pressure 2021-12-30 13:50:00 60 mm[Hg] [facility] height 2021-12-17 15:20:00 63.00 [in_i] [facility] weight 2021-12-17 15:20:00 137.6 [lb_av] [facility] bmi 2021-12-17 15:20:00 24.37 kg/m2 [facility] height 2021-11-10 16:20:00 63.00 [in_i] [facility] weight 2021-11-10 16:20:00 137.6 [lb_av] [facility] bmi 2021-11-10 16:20:00 24.37 kg/m2 [facility] height 2021-10-08 09:30:00 63.00 [in_i] [facility] weight 2021-10-08 09:30:00 137.6 [lb_av] [facility] bmi 2021-10-08 09:30:00 24.37 kg/m2 [facility] height 2021-09-24 10:20:00 63.00 [in_i] [facility] weight 2021-09-24 10:20:00 137.6 [lb_av] [facility] temperature 2021-09-24 10:20:00 97.4 [degF] [facility] bmi 2021-09-24 10:20:00 24.37 kg/m2 [facility] oximetry 2021-09-24 10:20:00 97 % [facility] respiratory rate 2021-09-24 10:20:00 17 /min Comm on [facility] blood pressure 2021-09-24 10:20:00 132 mm[Hg] [facility] - systolic [facility] blood pressure 2021-09-24 10:20:00 70 mm[Hg] [facility] - diastolic [facility] height 2021-08-20 13:50:00 63.00 [in_i] [facility] weight 2021-08-20 13:50:00 143.3 [lb_av] [facility] temperature 2021-08-20 13:50:00 98.1 [degF] [facility] bmi 2021-08-20 13:50:00 25.38 kg/m2 [facility] oximetry 2021-08-20 13:50:00 97 % [facility] respiratory rate 2021-08-20 13:50:00 17 /min [facility] on [facility] blood pressure 2021-08-20 13:50:00 138 mm[Hg] [facility] - systolic [facility] blood pressure 2021-08-20 13:50:00 61 mm[Hg] [facility] - diastolic [facility] height 2021-08-20 14:00:00 63.00 [in_i] [facility] weight 2021-08-20 14:00:00 143.3 [lb_av] [facility] temperature 2021-08-20 14:00:00 98.1 [degF] [facility] bmi 2021-08-20 14:00:00 25.38 kg/m2 [facility] oximetry 2021-08-20 14:00:00 97 % [facility] respiratory rate 2021-08-20 14:00:00 17 /min [facility] blood pressure 2021-08-20 14:00:00 138 mm[Hg] [facility] - systolic [facility] blood pressure 2021-08-20 14:00:00 61 mm[Hg] [facility] diastolic [facility] Systolic blood 2021-08-04 05:00:00 140 mm[Hg] [facility] pressure [facility] Diastolic blood 2021-08-04 05:00:00 47 mm[Hg] Unive [facility]ity of pressure [facility] Heart rate 2021-08-04 05:00:00 72 /min [facility] Respiratory rate 2021-08-04 05:00:00 15 /min [facility] Oxygen saturation in 2021-08-04 05:00:00 97 /min [facility] Arterial blood by [facility] Pulse oximetry [place] [facility] temperature 2021-08-04 03:12:00 37 [facility] 2021-08-04 03:12:00 [facility] Body weight 2021-08-04 03:12:00 64.411 kg [facility] BMI 2021-08-04 03:12:00 25.97 kg/m2 [facility] height 2021-07-30 08:40:00 63.00 [in_i] [facility] weight 2021-07-30 08:40:00 145 [lb_av] [facility] temperature 2021-07-30 08:40:00 97.5 [degF] [facility] bmi 2021-07-30 08:40:00 25.68 kg/m2 [facility] blood pressure 2021-07-30 08:40:00 132 mm[Hg] [facility] blood pressure 2021-07-30 08:40:00 76 mm[Hg] [facility] - diastolic [facility] height 2021-04-11 11:00:00 63.00 [in_i] [facility] weight 2021-04-11 11:00:00 148 [lb_av] [facility] temperature 2021-04-11 11:00:00 98 [degF] [facility] bmi 2021-04-11 11:00:00 26.21 kg/m2 [facility] height 2021-03-14 10:00:00 63.00 [in_i] [facility] weight 2021-03-14 10:00:00 148.1 [lb_av] [facility] temperature 2021-03-14 10:00:00 97.3 [degF] [facility] bmi 2021-03-14 10:00:00 26.23 kg/m2 [facility] oximetry 2021-03-14 10:00:00 97 % [facility] respiratory rate 2021-03-14 10:00:00 16 /min Comm [facility] blood pressure 2021-03-14 10:00:00 135 mm[Hg] [facility] systolic [facility] blood pressure 2021-03-14 10:00:00 62 mm[Hg] [facility] diastolic [facility] Systolic blood 2021-03-11 22:37:00 113 mm[Hg] Univer sity of pressure [facility] Diastolic blood 2021-03-11 22:37:00 47 mm[Hg] Unive rsity of pressure [facility] Heart rate 2021-03-11 22:37:00 82 /min [facility] Body height 2021-03-11 22:37:00 160 cm [facility] Body weight 2021-03-11 22:37:00 65.772 kg [facility] BMI 2021-03-11 22:37:00 25.69 kg/m2 [facility] height 2020-12-11 14:40:00 63.00 [in_i] [facility] weight 2020-12-11 14:40:00 141.2 [lb_av] [facility] temperature 2020-12-11 14:40:00 97.4 [degF] [facility] bmi 2020-12-11 14:40:00 25.01 kg/m2 [facility] oximetry 2020-12-11 14:40:00 96 % [facility] respiratory rate 2020-12-11 14:40:00 16 /min [facility] blood pressure 2020-12-11 14:40:00 132 mm[Hg] [facility] blood pressure 2020-12-11 14:40:00 61 mm[Hg] [facility] Systolic blood 2022-01-26 11:00:00 90 mm[Hg] [facility] Diastolic blood 2022-01-26 11:00:00 50 mm[Hg] [facility] Heart rate 2022-01-26 11:00:00 82 /min [facility] Body temperature 2022-01-26 11:00:00 36.44 Tamara [facility] Respiratory rate 2022-01-26 11:00:00 18 /min [facility] Oxygen saturation in 2022-01-26 11:00:00 94 /min [facility] Arterial blood by Medical Ce nter Pulse oximetry Weight 2016-10-01 15:38:00 [facility] BMI Calculated 2016-10-01 15:38:00 [facility] Height 2016-10-01 15:38:00 160.02 cm [facility] Respitory Rate 2016-10-01 15:38:00 [facility] Heart Rate 2016-10-01 15:38:00 [facility] Systolic (mm Hg) 2016-10-01 15:38:00 Jim [facility] Diastolic (mm Hg) 2016-10-01 15:38:00 [facility] Height 2016-07-02 15:24:00 160.02 cm [facility] Respitory Rate 2016-07-02 15:24:00 [facility] Heart Rate 2016-07-02 15:24:00 [facility] BMI Calculated 2016-07-02 15:24:00 [facility] Weight 2016-07-02 15:24:00 [facility] Systolic (mm Hg) 2016-07-02 15:24:00 Jim [facility] Diastolic (mm Hg) 2016-07-02 15:24:00 [facility] Procedures Procedure Date / Time Performing Clinician Source Performed CBC W/AUTO DIFF WITH 2022-03-17 15:15:34 [facility] COMPREHENSIVE METABOLIC 2022-03-17 15:15:34 [facility] Medicine FERRITIN 2022-03-17 15:15:34 [facility] IRON+TIBC+%SAT 2022-03-17 15:15:34 [facility] COLONOSCOPY 2022-02-16 09:30:00 Cecilia Pearl [facility] PREPARE RBC 2022-01-26 23:54:00 Deny [facility] ANTIBODY IDENTIFICATION 2022-01-26 16:44:00 Deny [facility] POCT-GLUCOSE METER 2022-01-26 10:35:00 Lars [facility] POCT-GLUCOSE METER 2022-01-26 09:28:00 Lars [facility] REPORT OF PROCEDURE - 2022-01-26 09:13:05 [facility] ENDOSCOPY URL [facility] ENTEROSCOPY, WITH 2022-01-26 08:15:00 [facility] HEMORRHAGE CONTROL [facility] CBC (HEMOGRAM ONLY) 2022-01-26 04:29:00 Lars, [facility] BASIC METABOLIC PANEL 2022-01-26 04:29:00 Lars, [facility] MAGNESIUM 2022-01-26 04:29:00 Lars, [facility] POCT-GLUCOSE METER 2022-01-26 04:17:00 Lars, [facility] POCT-GLUCOSE METER 2022-01-25 22:12:00 Lars, [facility] ECG 12-LEAD 2022-01-25 21:31:02 Unknown, Hl7 [facility] ECG 12-LEAD 2022-01-25 21:31:02 Unknown, Hl7 [facility] ECG 12-LEAD 2022-01-25 21:30:43 Gricel Little [facility] ECG 12-LEAD 2022-01-25 21:30:43 Unknown, Hl7 [facility] ECG 12-LEAD 2022-01-25 21:30:43 Unknown, Hl7 [facility] ECG 12-LEAD 2022-01-25 21:30:14 Unknown, 7 [facility] ECG 12-LEAD 2022-01-25 21:30:14 Unknown, 7 [facility] XR CHEST 1 VIEW PORTABLE 2022-01-25 17:37:00 Lars, [facility] / BEDSIDE Center POCT-GLUCOSE METER 2022-01-25 16:39:00 Lars, [facility] SARS-COV2/RT-PCR ([facility] & 2022-01-25 12:33:00 [facility] POCT-GLUCOSE METER 2022-01-25 12:00:00 Lars, [facility] TRANSFUSE LEUKO-REDUCED 2022-01-25 11:00:00 [facility] RED BLOOD CELLS Center HEMOGLOBIN A1C 2022-01-25 09:26:00 Lars, [facility] POCT-GLUCOSE METER 2022-01-25 05:42:00 Ayaan Christian [facility] BLOOD BANK EXTRA PINK 2022-01-25 05:41:00 Jo Romero [facility] Center CBC W/PLT COUNT & AUTO 2022-01-25 03:17:00 [facility] DIFFERENTIAL Center COMPREHENSIVE METABOLIC 2022-01-25 03:17:00 [facility] PANEL Center IRON, TIBC, % SAT. 2022-01-25 03:17:00 [facility] (WITHOUT FERRITIN) Center FERRITIN 2022-01-25 03:17:00 [facility] PT/APTT 2022-01-25 03:17:00 [facility] TYPE AND SCREEN, 2022-01-25 03:17:00 DenySuyapa [facility] AUTOMATED Center CBC W/PLT COUNT & AUTO 2022-01-25 03:17:00 DenySuyapa [facility] DIFFERENTIAL Center EKG-SCANNED 2022-01-25 00:00:00 Provider, Default [facility] Scanning [place] CBC W/AUTO DIFF WITH 2022-01-22 12:40:00 [facility] IRON+TIBC+%SAT 2022-01-22 12:40:00 [facility] FERRITIN 2022-01-22 12:40:00 [facility] VITAMIN B12 \\T\\ FOLIC 2022-01-22 12:40:00 [facility] ACID [facility] AMB REF TO HEMATOLOGY 2022-01-22 12:00:06 [facility] CBC W/AUTO DIFF WITH 2022-01-22 12:00:05 [facility] IRON+TIBC+%SAT 2022-01-22 12:00:05 [facility] FERRITIN 2022-01-22 12:00:05 [facility] VITAMIN B12 \\T\\ FOLIC 2022-01-22 12:00:05 [facility] PERMANENT LAB REPORT - 2022-01-16 00:00:00 Provider, Default [facility] SCAN Scanning Center EKG-SCANNED 2022-01-16 00:00:00 Provider, Default [facility] [place] ENTEROSCOPY 2022-01-13 11:01:00 Darling Moran [facility] POCT-GLUCOSE METER 2022-01-13 09:58:00 [facility] POCT-GLUCOSE METER 2022-01-13 06:34:00 [facility] POCT-GLUCOSE METER 2022-01-12 21:20:00 [facility] POCT-GLUCOSE METER 2022-01-12 15:24:00 [facility] ABORH, MANUAL 2022-01-12 12:05:00 Jo Romero [facility] POCT-GLUCOSE METER 2022-01-12 11:28:00 [facility] TYPE AND SCREEN, 2022-01-12 11:00:00 Maryuri Garay [facility] AUTOMATED Center POCT-GLUCOSE METER 2022-01-12 06:34:00 [facility] CT ABDOMEN PELVIS WO 2021-08-04 03:59:53 [facility] LIPASE 2021-08-04 03:39:00 [facility] COMP. METABOLIC PANEL 2021-08-04 03:39:00 [id number] CBC WITH DIFF 2021-08-04 03:39:00 [facility] URINALYSIS 2021-08-04 03:39:00 [facility] NOTICE OF PRIVACY 2021-08-04 02:24:14 Doctor Unassigned, [facility] PRACTICES [place] [facility] CONSENT/REFUSAL FOR 2021-08-04 02:22:02 Doctor Unassigned, [facility] DIAGNOSIS AND TREATMENT [place] [facility] [place] Colonoscopy [facility] Endoscopy of GI tract [facility] Plan of Care Planned Activity Planned Date Details Comments Source Future Scheduled 2023-01-[address] [facility] Test 00:00:00 [facility] r Screening (12+) [code = Tobacco Cessation Counseling and Screening (12+)] Future Scheduled 2023-01-[address] [facility] Test 00:00:00 [facility] Medical Cent[facility] r Screening (12+) [code = Tobacco Cessation Counseling and Screening (12+)] Future Scheduled 2022-03-[address] [facility] 00:00:00 WELLNESS (YEAR 2 or Medical Center FIRST YEAR if no IPPE) [code = MEDICARE ANNUAL WELLNESS (YEAR 2 or FIRST YEAR if no IPPE)] Future Scheduled 2022-03-29 FALLS RISK SCREENING [facility] Test 00:00:00 [code = FALLS RISK Medical C enter SCREENING] Future Scheduled 2022-03-17 IRON+TIBC+%SAT [code Ordered: [facility] Test 15:15:34 = NOCPT] 03/17/2022 of Medicine Future Scheduled 2022-03-17 CBC W/AUTO DIFF WITH Ordered: [employer] Test 15:15:34 PLATELETS [code = 03/17/2022 of Medicin e 97874-5] Future Scheduled 2022-03-17 COMPREHENSIVE Ordered: [facility] Test 15:15:34 METABOLIC PANEL 03/17/2022 of Medicine [code = 50344-6] Future Scheduled 2022-03-17 FERRITIN [code = Ordered: [employer] Test 15:15:34 36049-9] 03/17/2022 of Medicine Future Scheduled 2022-03-17 Screening for [facility] Test 14:44:47 malignant neoplasm of Medici ne of colon (procedure) [code = 205727654] Future Scheduled 2022-03-17 Pneumococcal 65+ (1 [employer] Test 14:44:47 - PCV) [code = of Medicine Pneumococcal 65+ (1 - PCV)] Future Scheduled 2022-03-17 BMI FOLLOW UP PLAN [employer] Test 14:44:47 [code = BMI FOLLOW of Medici ne UP PLAN] Future Scheduled 2022-03-17 Hepatitis C [facility] [employer] 14:44:47 screening of Medicine (procedure) [code = 408255795] Future Scheduled 2022-03-17 Screening for [facility] Test 14:44:47 malignant neoplasm of Medici ne of lung (procedure) [code = 294677424] Future Scheduled 2022-03-17 ZOSTER VACCINE (1 of [employer] [employer] Test 14:44:47 2) [code = ZOSTER of Medicin e VACCINE (1 of 2)] Future Scheduled 2022-03-17 FALL SCREEN [code = [employer] Test 14:44:47 FALL SCREEN] of Medicine Future Scheduled 2022-03-17 Screening for [facility] Test 14:44:47 osteoporosis of Medicine (procedure) [code = 181453141] Future Scheduled 2022-03-17 Screening for [facility] Test 14:44:47 malignant neoplasm of Medici ne of breast (procedure) [code = 355402205] Future Scheduled 2022-03-17 COVID-19 Vaccine (4 [employer] Test 14:44:47 - Booster for of Medicine Moderna series) [code = COVID-19 Vaccine (4 - Booster for Moderna series)] Future Scheduled 2022-03-17 TETANUS SHOT (ADULT) [employer] Test 14:44:47 [code = TETANUS SHOT of Medi cine (ADULT)] Future Scheduled 2022-03-17 FLU VACCINE > 6 [facility] Test 14:44:47 MONTHS [code = FLU of Medici ne VACCINE > 6 MONTHS] Future Scheduled 2022-01-22 Hepatitis C [facility] [employer] 20:43:40 screening of Medicine (procedure) [code = 943961333] Future Scheduled 2022-01-22 Screening for [facility] 20:43:40 malignant neoplasm of Medici ne of lung (procedure) [code = 087543292] Future Scheduled 2022-01-22 ZOSTER VACCINE (1 of [employer] Test 20:43:40 2) [code = ZOSTER of Medicin e VACCINE (1 of 2)] Future Scheduled 2022-01-22 FALL SCREEN [code = [employer] Test 20:43:40 FALL SCREEN] of Medicine Future Scheduled 2022-01-22 Screening for [facility] Test 20:43:40 osteoporosis of Medicine (procedure) [code = 518875709] Future Scheduled 2022-01-22 Screening for [facility] Test 20:43:40 malignant neoplasm of Medici ne of breast (procedure) [code = 477348038] Future Scheduled 2022-01-22 MEDICARE AWV [facility] 20:43:40 (Initial) [code = of Medicin e MEDICARE AWV (Initial)] Future Scheduled 2022-01-22 COVID-19 Vaccine (4 [employer] Test 20:43:40 - Booster for of Medicine Moderna series) [code = COVID-19 Vaccine (4 - Booster for Moderna series)] Future Scheduled 2022-01-22 TETANUS SHOT (ADULT) [employer] Test 20:43:40 [code = TETANUS SHOT of Medi cine (ADULT)] Future Scheduled 2022-01-22 FLU VACCINE > 6 [facility] Test 20:43:40 MONTHS [code = FLU of Medici ne VACCINE > 6 MONTHS] Future Scheduled 2022-01-22 Screening for [facility] Test 20:43:40 malignant neoplasm of Medici ne of colon (procedure) [code = 701687519] Future Scheduled 2022-01-22 Pneumococcal 65+ (1 [employer] Test 20:43:40 - PCV) [code = of Medicine Pneumococcal 65+ (1 - PCV)] Future Scheduled 2022-01-22 BMI FOLLOW UP PLAN [employer] Test 20:43:40 [code = BMI FOLLOW of Medici ne UP PLAN] Future Scheduled 2022-01-22 COLONOSCOPY W MAC GI 1 Occurrences [employer] Test 12:00:06 DEPT [code = starting of Medicine 98605438] 01/22/2022 until 07/23/2022 Future Scheduled 2022-01-22 CBC W/AUTO DIFF WITH Ordered: [employer] Test 12:00:05 PLATELETS [code = 01/22/2022 of Medicin e 94814-4] Future Scheduled 2022-01-22 IRON+TIBC+%SAT [code Ordered: [facility] Test 12:00:05 = NOCPT] 01/22/2022 of Medicine Future Scheduled 2022-01-22 FERRITIN [code = Ordered: [facility] Test 12:00:05 12839-0] 01/22/2022 of Medicine Future Scheduled 2022-01-22 VITAMIN B12 & FOLIC Ordered: [employer] [facility] 12:00:05 ACID [code = [...] - Booster for Moderna series)] Future Scheduled 2021-01-24 DTAP/TDAP/TD [facility] VACCINES (2 - Td or Medical Center Tdap) [code = DTAP/TDAP/TD VACCINES (2 - Td or Tdap)] Future Scheduled 2021-01-24 DTAP/TDAP/TD [facility] 00:00:00 VACCINES (2 - Td or Medical Center Tdap) [code = DTAP/TDAP/TD VACCINES (2 - Td or Tdap)] Future Scheduled 2020-01-21 PNEUMOCOCCAL 65+ YRS CHI [...] C enter of colon (procedure) [code = 425751755] Future Scheduled 2017-12-[address] [facility] 00:00:00 malignant neoplasm Medical C enter of colon (procedure) [code = 266755705] Future Scheduled 2017-12-[address] [facility] Test 00:00:00 malignant neoplasm Medical C enter of colon (procedure) [code = 781808225] Future Scheduled 2017-12-[address] [facility] Test 00:00:00 malignant neoplasm Medical C enter of colon (procedure) [code = 136249714] Future Scheduled 2017-12-[address] [facility] Test 00:00:00 malignant neoplasm Medical C enter of colon (procedure) [code = 108338358] Future Scheduled 2017-12-[address] [facility] Test 00:00:00 malignant neoplasm Medical C enter of colon (procedure) [code = 390226554] Future Scheduled 2017-12-[address] [facility] Test 00:00:00 malignant neoplasm Medical C enter of colon (procedure) [code = 207968931] Future Scheduled 2017-12-[address] [facility] 00:00:00 malignant neoplasm Medical C enter of colon (procedure) [code = 714946611] Future Scheduled 2017-12-[address] [facility] Test 00:00:00 malignant neoplasm Medical C enter of colon (procedure) [code = 670823256] Future Scheduled 2017-12-[address] [facility] Test 00:00:00 malignant neoplasm Medical C enter of colon (procedure) [code = 101890682] Future Scheduled 2017-12-[address] [facility] Test 00:00:00 malignant neoplasm Medical C enter of colon (procedure) [code = 829866016] Future Scheduled 2017-12-[address] [facility] Test 00:00:00 malignant neoplasm Medical C enter of colon (procedure) [code = 057095496] Future Scheduled 2017-06-[address] [facility]00 measurement Medical Center (procedure) [code = 78800334] Future Scheduled 2017-06-[address] [facility] 00:[facility]:00 measurement Medical Center (procedure) [code = 14809228] Future Scheduled 2017-06-[address] [facility] 00:[facility]:00 measurement Medical Center (procedure) [code = 41960795] Future Scheduled 2017-06-[address] [facility] 00:00:00 measurement Medical Center (procedure) [code = 42680192] Future Scheduled 2017-06-[address] [facility] 00:00:00 measurement Medical Center (procedure) [code = 27270685] Future Scheduled 2017-06-[address] [facility] 00:00:00 measurement Medical Center (procedure) [code = 34490093] Future Scheduled 1996 SHINGLES VACCINES (1 [facility] [...] 00:00:00 examination Medical Center (regime/therapy) [code = 959181904] Future Scheduled 1956 Urine screening for [facility] 00:00:00 protein (procedure) Medical Center [code = 827685841] Future Scheduled [address]YE EXAM [facility] 00:00:00 [code = DIABETIC EYE Medical Center EXAM] Future Scheduled [address] [facility] 00:00:00 examination Medical Center (regime/therapy) [code = 980282660] Future Scheduled 1956 Urine screening for [facility] Test 00:00:00 protein (procedure) Medical Center [code = 598178003] Future Scheduled [address]YE EXAM [facility] 00:00:00 [code = DIABETIC EYE Medical Center EXAM] Future Scheduled [address] [facility] 00:00:00 examination Medical Center (regime/therapy) [code = 602667135] Future Scheduled 1956 Urine screening for [facility] Test 00:00:00 protein (procedure) Medical Center [code = 402544236] Future Scheduled [address]YE EXAM [facility] 00:00:00 [code = DIABETIC EYE Medical Center EXAM] Future Scheduled [address] [facility] 00:00:00 examination Medical Center (regime/therapy) [code = 621349510] Future Scheduled 1956 Urine screening for [facility] Test 00:00:00 protein (procedure) Medical Center [code = 106084312] Future Scheduled [address]YE EXAM [facility] 00:00:00 [code = DIABETIC EYE Medical Center EXAM] Future Scheduled [address] [facility] 00:00:00 examination Medical Center (regime/therapy) [code = 640069523] Future Scheduled 1956 Urine screening for [facility] Test 00:00:00 protein (procedure) Medical Center [code = 719099994] Future Scheduled [address] EYE EXAM [facility] 00:00:00 [code = DIABETIC EYE Medical Center EXAM] Future Scheduled [address] [facility] 00:00:00 examination Medical Center (regime/therapy) [code = 661654430] Future Scheduled 1956 Urine screening for [facility] Test 00:00:00 protein (procedure) Medical Center [code = 943531574] Future Scheduled [address] [facility] 00:00:00 (combo) [code = CT Medical C enter Colonography (combo)] Future Scheduled [address] [facility] 00:00:00 malignant neoplasm Medical C enter of colon (procedure) [code = 426607892] Future Scheduled 1946 DXA SCAN [code = DXA [facility] Test 00:00:00 SCAN] [facility] Future Scheduled [address] [facility] Test 00:00:00 malignant neoplasm Medical C enter of colon (procedure) [code = 129503010] Future Scheduled 1946 Sigmoidoscopy [code [facility] 00:00:00 = Sigmoidoscopy] Medical [facility] ter Future Scheduled [address] [facility] 00:00:00 (combo) [code = CT Medical C enter Colonography (combo)] Future Scheduled [address] [facility] 00:00:00 malignant neoplasm Medical C enter of colon (procedure) [code = 610433038] Future Scheduled 1946 DXA SCAN [code = DXA [facility] Test 00:00:00 SCAN] [facility] Future Scheduled [address] [facility] 00:00:00 malignant neoplasm Medical C enter of colon (procedure) [code = 906200391] Future Scheduled 1946 Sigmoidoscopy [code [facility] 00:00:00 = Sigmoidoscopy] Medical [facility] ter Future Scheduled [address] [facility] 00:00:00 (combo) [code = CT Medical C enter Colonography (combo)] Future Scheduled [address] [facility] 00:00:00 malignant neoplasm Medical C enter of colon (procedure) [code = 578282672] Future Scheduled 1946 DXA SCAN [code = DXA [facility] Test 00:00:00 SCAN] [facility] Future Scheduled [address] [facility] 00:00:00 malignant neoplasm Medical C enter of colon (procedure) [code = 689791446] Future Scheduled 1946 Sigmoidoscopy [code [facility] 00:00:00 = Sigmoidoscopy] [facility] Future Scheduled [address] [facility] 00:00:00 (combo) [code = CT Medical C enter Colonography (combo)] Future Scheduled [address] [facility] 00:00:00 malignant neoplasm Medical C enter of colon (procedure) [code = 427195167] Future Scheduled 1946 DXA SCAN [code = DXA [facility] Test 00:00:00 SCAN] [facility] Future Scheduled [address] [facility] 00:00:00 malignant neoplasm Medical C enter of colon (procedure) [code = 991702735] Future Scheduled 1946 Sigmoidoscopy [code [facility] 00:00:00 = Sigmoidoscopy] [facility] Future Scheduled [address] [facility] 00:00:00 (combo) [code = CT Medical C enter Colonography (combo)] Future Scheduled [address] [facility] 00:00:00 malignant neoplasm Medical C enter of colon (procedure) [code = 578506121] Future Scheduled 1946 DXA SCAN [code = DXA [facility] Test 00:00:00 SCAN] [facility] Future Scheduled [address] [facility] 00:00:00 malignant neoplasm Medical C enter of colon (procedure) [code = 856729794] Future Scheduled 1946 Sigmoidoscopy [code [facility] 00:00:00 = Sigmoidoscopy] [facility] Future Scheduled [address] [facility] 00:00:00 (combo) [code = CT Medical C enter Colonography (combo)] Future Scheduled [address] [facility] 00:00:00 malignant neoplasm Medical C enter of colon (procedure) [code = 875725417] Future Scheduled 1946 DXA SCAN [code = DXA [facility] Test 00:00:00 SCAN] Medical Center Future Scheduled [address] [facility] 00:00:00 malignant neoplasm Medical C enter of colon (procedure) [code = 278665642] Future Scheduled 1946 Sigmoidoscopy [code [facility] Test 00:00:00 = Sigmoidoscopy] Medical Natalie ter Encounters Start End Encounter Admission Attending Care Care Encounter Source Date/Time Date/Time Type Type Clinicians Facility Department ID 2022-04-29 Outpatient Thomson, STLMLC STLMLC [id number] Common 13:24:00 Susana [id number] [facility] 2022-02-04 Outpatient Thomson, STLMLC STLMLC [id number] Common 10:17:01 Susana [facility] 2022-01-22 Outpatient CHRISTOS GOEL, [facility] Surgery [id number] [facility] 12:55:06 PEARL 2022-01-16 Outpatient Thomson, STLMLC STLMLC [id number] Common 13:25:00 Susana [facility] 2021-10-06 Outpatient Thomson, STLMLC STLMLC [id number] Common 16:18:00 [facility] 2021-08-18 Outpatient Thomson, STLMLC STLMLC [id number] Common 09:23:08 [facility] 2021-06-09 Outpatient Thomson, STLMLC STLMLC [id number] Common 10:56:01 [facility] 2021-05-28 Outpatient Thomson, STLMLC STLMLC [id number] Common 08:20:00 [facility] 2021-05-22 Outpatient Thomson, STLMLC STLMLC [id number] Common 15:37:00 [facility] 2021-04-23 Outpatient Thomson, STLMLC STLMLC [id number] Common 14:32:51 [facility] 2021-04-23 Outpatient Thomson, STLMLC STLMLC [id number] Common 14:27:21 Susana 66548 [facility] 2021-04-23 Outpatient Tohmson, STLMLC STLMLC [id number] Common 14:26:14 Susana 67957 [facility] 2021-04-23 Outpatient Thomson, STLMLC STLMLC [id number] Common 14:26:02 Susana 05585 [facility] 2021-04-23 Outpatient Thomson, STLMLC STLMLC [id number] Common 14:25:31 Susana 13449 [facility] 2021-04-23 Outpatient Thomson, STLMLC STLMLC [id number] Common 14:24:42 Susana 95205 [facility] 2021-04-23 Outpatient Thomson, STLMLC STLMLC [id number] Common 14:24:14 [place] [id number] [facility] 2021-04-23 Outpatient Thomson, STLMLC STLMLC [id number] Common 14:22:04 [place] [id number] [facility] 2021-04-23 Outpatient STLMLC STLMLC [id number] Common 14:04:07 49800 [facility] 2021-04-23 Outpatient STLMLC STLMLC [id number] Common 13:57:01 04391 [facility] 2021-04-23 Outpatient STLMLC STLMLC [id number] Common 13:54:56 32459 [facility] 2021-04-23 Outpatient STLMLC STLMLC [id number] Common 13:49:08 34479 [facility] 2021-04-23 Outpatient STLMLC STLMLC [id number] Common 12:36:47 48934 [facility] 2021-04-23 Outpatient STLMLC STLMLC [id number] Common 12:20:24 87984 [facility] 2022-04-30 2022-04-30 OFFICE STLMLC STLMLC [id number] Co mmon 00:00:00 00:00:00 VISIT [facility] LEVEL 4 [facility] 2022-04-14 2022-04-14 (TEL) STLMLC STLMLC [id number] Co mmon 00:00:00 00:00:00 [facility] 2022-03-17 2022-03-17 Office TAMAR Cohn 1.2.840.114 [id number] [facility] 14:40:00 15:00:00 Visit Suneal K AMBULATOR 350.1.13.21 College Y 0.2.7.2.686 [id number] Medi fabián 325 e 2022-03-16 2022-03-16 (WEB) STLMLC STLMLC [id number] Co mmon 00:00:00 00:00:00 [facility] 2022-03-12 2022-03-12 (TEL) STLMLC STLMLC [id number] Co mmon 00:00:00 00:00:00 [facility] 2022-03-10 2022-03-10 Outpatient Belia NAZARIO [facility] [id number] [facility] 11:00:00 11:00:00 LIDIA alegria [facility] 2022-03-04 2022-03-04 (TEL) STLMLC STLMLC [id number] Co mmon 00:00:00 00:00:00 [facility] 2022-03-04 2022-03-04 (TEL) STLMLC STLMLC [id number] Co mmon 00:00:00 00:00:00 [facility] 2022-02-23 2022-02-23 (TEL) STLMLC STLMLC [id number] Co mmon 00:00:00 00:00:00 [facility] 2022-02-21 2022-02-21 [facility] [id number] 07:00:00 11:00:00 Encounter [facility] 2022-02-21 2022-02-21 Inpatient [facility] Surgery [id number] SLE 07:00:00 11:00:00 DARLING 2022-02-21 2022-02-21 [facility] Dean, [facility] [id number] 07:00:00 11:00:00 Encounter [facility] 2022-02-12 2022-02-12 (TEL) STLMLC STLMLC [id number] Co mmon 00:00:00 00:00:00 [facility] 2022-02-11 2022-02-11 (TEL) STLMLC STLMLC [id number] Co mmon 00:00:00 00:00:00 [facility] 2022-02-04 2022-02-04 (TEL) STLMLC STLMLC [id number] Co mmon 00:00:00 00:00:00 [facility] 2022-02-03 2022-02-03 (TEL) STLMLC STLMLC [id number] Co mmon 00:00:00 00:00:00 [facility] 2022-02-02 2022-02-02 (TEL) STLMLC STLMLC [id number] Co mmon 00:00:00 00:00:00 [facility] 2022-01-29 2022-01-29 (TEL) STLMLC STLMLC [id number] Co mmon 00:00:00 00:00:00 [facility] 2022-01-29 2022-01-29 (TEL) STLMLC STLMLC [id number] Co mmon 00:00:00 00:00:00 [facility] 2022-01-26 2022-01-26 Anesthesia Anabel [facility] [id number] 08:25:00 09:27:00 [facility] 2022-01-26 2022-01-26 Anesthesia Anabel [facility] [id number] 08:25:00 09:27:00 Event [facility] 2022-01-26 2022-01-26 Surgery Suki, [facility] [id number] [facility] 07:50:00 08:50:00 [facility] 2022-01-26 2022-01-26 Surgery Suki, [facility] [id number] 07:50:00 08:50:00 [facility] 2022-01-25 2022-01-26 [facility] [id number] 02:05:00 02:40:00 Encounter [facility] 2022-01-25 2022-01-26 Inpatient ER [facility] Gastro [id number] SLE 02:05:00 02:40:00 [facility] 2022-01-25 2022-01-26 [facility] [id number] 02:05:00 02:40:00 Encounter [facility] 2022-01-26 2022-01-26 ([facility] [id number] Co mmon 00:00:00 00:00:00 [facility] 2022-01-25 2022-01-25 Outpatient [facility] [id number] [facility] 00:00:00 23:59:00 Bright 2022-01-16 2022-01-25 Inpatient [facility] Medicine [id number] SLE 13:08:00 01:30:00 5 2022-01-25 2022-01-25 Orders [facility] [id number] 00:00:00 00:00:00 Only [facility] 2022-01-25 2022-01-25 Travel [facility] [id number] [facility] 00:00:00 00:00:00 [facility] 2022-01-25 2022-01-25 Orders [facility] [id number] 00:00:00 00:00:00 Only [facility] 2022-01-25 2022-01-25 Travel [facility] [id number] [facility] 00:00:00 00:00:00 [facility] 2022-01-22 2022-01-22 Office TAMAR GOEL 1.2.840.114 [id number] [facility] 09:54:57 14:32:59 Visit PEARL AMBULATOR 350.1.13.21 College Y 0.2.7.2.686 of [id number] Medi fabián 325 e 2022-01-20 2022-01-20 (TEL) STLMLC STLMLC [id number] Co mmon 00:00:00 00:00:00 [facility] 2022-01-19 2022-01-19 (TEL) STLMLC STLC [id number] Co mmon 00:00:00 00:00:00 [facility] 2022-01-16 2022-01-16 (EST. STLMLC STLC [id number] Co mmon 00:00:00 00:00:00 VIDEO) EST Spi rit [facility] - VIDEO [facility] 2022-01-14 2022-01-14 (WEB) STLMLC STLC [id number] Co mmon 00:00:00 00:00:00 [facility] 2022-01-11 2022-01-13 [facility], [facility] [id number] 21:56:00 15:30:00 Encounter Litzy [address] [place] [address] 2022-01-11 2022-01-13 Hospital [facility] [id number] 21:56:00 15:30:[address] [place] [address] 2022-01-13 2022-01-13 Surgery [facility], [facility] [id number] 10:00:00 10:46:00 [facility] 2022-01-13 2022-01-13 Surgery [facility], [facility] [id number] 10:00:00 10:46:00 [facility] 2022-01-11 2022-01-11 Emergency [facility] [id number] 21:50:00 21:55:00 [facility] 2022-01-11 2022-01-11 Emergency ER SLE Emergency [id number] [facility] 21:50:00 21:55:00 2022-01-11 2022-01-11 Emergency [facility] [id number] 21:50:00 21:55:00 [facility] 2022-01-06 2022-01-06 (TEL) STLMLC STLMLC [id number] Co mmon 00:00:00 00:00:00 [facility] 2021-12-30 2021-12-30 OFFICE STLMLC STLMLC [id number] Co mmon 00:00:00 00:00:00 VISIT [facility] ESTAB PT - CHI LEVEL 4 [facility] 2021-12-17 2021-12-17 OFFICE STLMLC STLMLC [id number] Co mmon 00:00:00 00:00:00 VISIT EST Spir it PT LEVEL 3 - [facility] 2021-12-17 2021-12-17 (TEL) STLMLC STLMLC [id number] Co mmon 00:00:00 00:00:00 [facility] 2021-12-12 2021-12-12 (TEL) STLMLC STLMLC [id number] Co mmon 00:00:00 00:00:00 [facility] 2021 2021 Outpatient Iyanoye_S DMG DMG [id number] [facility] 00:00:00 00:00:00 0901 [facility] 2021 2021 Outpatient Iyanoye_S DMG DMG [id number] -[id number] [facility] 00:00:00 00:00:00 1223 [facility] 2021 2021 Outpatient Iyanoye_S DMG DMG [id number] [facility] 00:00:00 00:00:00 0105 [facility] 2021 2021 (TEL) STLMLC STLMLC [id number] Co mmon 00:00:00 00:00:00 [facility] 2021-11-25 2021-11-25 (TEL) STLMLC STLMLC [id number] Co mmon 00:00:00 00:00:00 [facility] 2021-11-18 2021-11-18 (TEL) STLMLC STLMLC [id number] Co mmon 00:00:00 00:00:00 [facility] 2021-11-12 2021-11-12 (TEL) STLMLC STLMLC [id number] Co mmon 00:00:00 00:00:00 [facility] 2021-11-10 2021-11-10 OFFICE STLMLC STLMLC [id number] Co mmon 00:00:00 00:00:00 VISIT EST Spir it PT LEVEL 3 [facility] 2021-11-10 2021-11-10 (TEL) STLMLC STLMLC [id number] Co mmon 00:00:00 00:00:00 [facility] 2021-10-28 2021-10-28 (TEL) STLMLC STLMLC [id number] Co mmon 00:00:00 00:00:00 [facility] 2021-10-10 2021-10-10 Outpatient DMG DMG [id number] [facility] 03:13:00 03:13:00 0715 [facility] l [facility] 2021-10-09 2021-10-09 (WEB) STLMLC STLMLC [id number] Co mmon 00:00:00 00:00:00 [facility] 2021-10-08 2021-10-08 OL DIG E/M STLMLC STLMLC [id number] Common 00:00:00 00:00:00 C 11-20 Spir it MIN [facility] 2021-10-08 2021-10-08 (TEL) STLMLC STLMLC [id number] Co mmon 00:00:00 00:00:00 [facility] 2021-10-08 2021-10-08 (WEB) STLMLC STLMLC [id number] Co mmon 00:00:00 00:00:00 [facility] 2021-10-07 2021-10-07 (TEL) STLMLC STLMLC [id number] Co mmon 00:00:00 00:00:00 [facility] 2021-10-02 2021-10-02 (WEB) STLMLC STLMLC [id number] Co mmon 00:00:00 00:00:00 [facility] 2021-10-02 2021-10-02 (WEB) STLMLC STLMLC [id number] Co mmon 00:00:00 00:00:00 [facility] 2021-09-30 2021-09-30 (WEB) STLMLC STLMLC [id number] Co mmon 00:00:00 00:00:00 [facility] 2021-09-26 2021-09-26 (WEB) STLMLC STLMLC [id number] Co mmon 00:00:00 00:00:00 [facility] 2021-09-24 2021-09-24 OFFICE STLMLC STLMLC [id number] Co mmon 00:00:00 00:00:00 VISIT [facility] PT - CHI LEVEL 4 [facility] 2021-09-17 2021-09-17 (TEL) STLMLC STLMLC [id number] Co mmon 00:00:00 00:00:00 [facility] 2021-08-27 2021-08-27 (TEL) STLMLC STLMLC [id number] Co mmon 00:00:00 00:00:00 [facility] 2021-08-21 2021-08-21 (TEL) STLMLC STLMLC [id number] Co mmon 00:00:00 00:00:00 [facility] 2021-08-20 2021-08-20 OFFICE STLMLC STLMLC [id number] Co mmon 00:00:00 00:00:00 VISIT [facility] ESTAB PT - CHI LEVEL 4 [facility] 2021-08-20 2021-08-20 SUB ANNUAL STLMLC STLMLC [id number] Common 00:00:00 00:00:00 MCR [facility] WELLNESS - CHI VISIT [facility] 2021-08-11 2021-08-11 (TEL) STLMLC STLMLC [id number] Co mmon 00:00:00 00:00:00 [facility] 2021-08-03 2021-08-04 Emergency X [facility] ERT [id number] Univers 21:58:00 01:05:00 FOLTALAO ity of [facility] 2021-08-03 2021-08-04 Emergency [facility] 1.2.840.114 [id number] Univers 21:58:00 01:05:00 Morales Alegria CHELSEA [id number] ity [facility] [id number] [facility] [id number] [place] [address] [address] 2021-07-30 2021-07-30 (TEL) STLMLC STLMLC [id number] Co mmon 00:00:00 00:00:00 Spirit [facility] 2021-07-30 2021-07-30 OFFICE STLMLC STLMLC [id number] Co mmon 00:00:00 00:00:00 VISIT EST Spir it PT LEVEL 3 - [facility] 2021-07-30 2021-07-30 (TEL) STLMLC STLMLC [id number] Co mmon 00:00:00 00:00:00 [facility] 2021-05-27 2021-05-27 (TEL) STLMLC STLMLC [id number] Co mmon 00:00:00 00:00:00 [facility] 2021-05-09 2021-05-09 (TEL) STLMLC STLMLC [id number] Co mmon 00:00:00 00:00:00 [facility] 2021-05-08 2021-05-08 (TEL) STLMLC STLMLC [id number] Co mmon 00:00:00 00:00:00 [facility] 2021-04-23 2021-04-23 (TEL) STLMLC STLMLC [id number] Co mmon 00:00:00 00:00:00 [facility] 2021-04-11 2021-04-11 OFFICE STLMLC STLMLC [id number] Co mmon 00:00:00 00:00:00 VISIT EST Spir it PT LEVEL 3 - [facility] 2021-04-11 2021-04-11 (TEL) STLMLC STLMLC [id number] Co mmon 00:00:00 00:00:00 [facility] 2021-04-09 2021-04-09 (TEL) STLMLC STLMLC [id number] Co mmon 00:00:00 00:00:00 [facility] 2021-04-07 2021-04-07 (TEL) STLMLC STLMLC [id number] Co mmon 00:00:00 00:00:00 [facility] 2021-03-14 2021-03-14 OFFICE STLMLC STLMLC [id number] Co mmon 00:00:00 00:00:00 VISIT [facility] ESTAB PT - CHI LEVEL 4 [facility] 2021-03-14 2021-03-14 (TEL) STLMLC STLMLC [id number] Co mmon 00:00:00 00:00:00 [facility] 2021-03-11 2021-03-11 Outpatient [facility] [id number] Univers 15:15:00 17:38:47 LIDIA chacon [facility] 2021-03-11 2021-03-11 Office Aravind [facility] 1.2.840.114 [id number] Univers 15:15:00 17:38:47 Visit Lidia [id number] [facility] 4.2.7.2.686 Zayda lopez [phone] [address] 2021-03-11 2021-03-11 Outpatient Belia NAZARIO [facility] [id number] Univers 15:15:00 17:38:47 LIDIA chacon [facility] 2021-03-08 2021-03-08 Vegetable Trimmer Leola, Adc Lab Main [facility] 1.2.8 40.114 [id number] Univers 07:57:26 08:12:26 Visit Beverly Chance MILLER 350.1.13.10 ity of [place] 4.2.7.2.686 [facility] [phone] Tn dical [facility] 2021-03-08 2021-03-08 Outpatient R [facility] [id number] Univers 08:00:00 08:00:00 CHANCE to [facility] 2021-03-08 2021-03-08 Outpatient R BEVERLY [facility] [id number] Univers 08:00:00 08:00:00 CHANCE lorraine [facility] 2021-03-08 2021-03-08 Orders Doctor THOMAS 1.2.840.114 [id number] Univers 00:00:00 00:00:00 Only Unassigned, JULIUS 350.1.13.10 ity of [place] [facility] 4.2.7.2.686 Manuel as [phone] [facility] [address] 2021-02-28 2021-02-28 Outpatient R [facility] [id number] Univers 07:55:14 23:59:00 LIBRADO to o f [facility] 2021-02-28 2021-02-28 [facility] 1.2.840.114 [id number] Univers 07:55:14 23:59:00 Encounter Librado MILLER 350.1.13.10 ity of [place] 4.2.7.2.686 [facility] [id number] [facility] [address] 2021-02-28 2021-02-28 Outpatient R [facility] [id number] Univers 07:55:14 23:59:00 LIBRADO to o f [facility] 2021-02-28 2021-02-28 [facility] 1.2.840.114 [id number] Univers 07:54:41 07:54:41 Encounter Librado MILLER 350.1.13.10 [facility] 4.2.7.2.686 [facility] [id number] [address] 2021-02-28 2021-02-28 Hospital [facility], [facility] 1.2.840.114 [id number] Univers 07:54:07 07:54:07 Encounter Librado MILLER [id number] ity of [place] 4.2.7.2.686 [facility] [id number] [address] 2021-02-07 2021-02-07 Outpatient R JOSE ALBERTO, [facility] [id number] Univers 09:20:00 09:31:58 LIBRADO revelesy o [facility] 2021-02-07 2021-02-07 Outpatient R JOSE ALBERTO, [facility] [id number] Univers 09:20:00 09:31:58 LIBRADO to o [facility] 2021-02-07 2021-02-07 Outpatient R JOSE ALBERTO, [facility] [id number] Univers 09:20:00 09:31:58 LIBRADO to o [facility] 2021-02-07 2021-02-07 Outpatient R JOSE ALBERTO, [facility] [id number] Univers 09:20:00 09:31:58 LIBRADO chacon [facility] 2021-02-07 2021-02-07 Office [facility] 1.2.840.114 [id number] Univers 09:01:02 09:31:58 Visit Librado WATERSLEXX 350.1.13.10 [facility] 4.2.7.2.686 [facility] [phone] Tn dical NAL 059 [facility] 2021-02-01 2021-02-01 [place] [id number] [facility] 11:01:00 11:01:00 1106 Medica l Group 2021-01-16 2021-01-16 Outpatient R [facility] [id number] Univers 14:30:00 14:30:00 ity of [facility] 2020-12-12 2020-12-12 Orders Doctor GUZMAN 1.2.840.114 [id number] Univers 00:00:00 00:00:00 Only Unassigned, JULIUS 350.1.13.10 ity [place] [facility] 4.2.7.2.686 Manuel as [phone] [address] 2020-12-11 2020-12-[address] [facility] [id number] Co mmon 00:00:00 00:00:00 VISIT Isidoro BUSTILLOS PT - CHI LEVEL 4 [facility] 2020-12-06 2020-12-06 Patient Eleni [facility] 1.2.840.114 [id number] Univers 00:00:00 00:00:00 Secure Msg W[facility]iful [facility] [id number] ity of [place] 4.2.7.2.686 Manuel as Luis Enrique?Blea [id number] [address] Medical Office Building 2020-12-06 2020-12-06 Telephone Eleni [facility] 1.2.840.114 [id number] Univers 00:00:00 00:00:00 [facility] [id number] ity of [place] 4.2.7.2.686 Manuel as Luis Enrique?Blea [phone] [address] Medical Office [facility] 2020-12-04 2020-12-04 Case [facility] 1.2.840.114 [id number] Univers 00:00:00 00:00:00 Management [facility] 350.1.13.10 ity of [place] 4.2.7.2.686 Manuel as Luis Enrique?Blea [phone] [address] Medical Office [facility] 2020-11-28 2020-11-28 Vegetable Trimmer Lab, Ang - Price [facility] 1.2.840.1 14 [id number] Univers 16:02:35 16:17:35 Visit Chela [facility] 350.1.13.1 0 ity of [place] 4.2.7.2.686 Manuel as Luis Enrique?Blea [phone] [facility] [address] Medical Office [facility] 2020-11-28 2020-11-28 Outpatient Belia KNOWLES [facility] [id number] Univers 15:15:00 16:02:20 WONDIFUL ity o f [facility] 2020-11-28 2020-11-28 Outpatient R ELENI [facility] [id number] Univers 15:15:00 16:02:20 WONDIFUL ity o f [facility] 2020-11-28 2020-11-28 Office [facility] 1.2.840.114 [id number] Univers 14:51:53 16:02:20 Visit W[facility]iful [facility] 350.1.13.10 ity of [place] 4.2.7.2.686 Manuel as Luis Enrique?Blea [phone] Tn dical kney [address] Medical Office Building 2020-11-28 2020-11-28 Outpatient R ELENI [facility] [id number] Univers 15:15:00 15:15:00 WONDIFUL ity o f [facility] 2020-11-15 2020-11-15 Outpatient Belia CHURCHILL [facility] [id number] Univers 14:00:00 14:00:00 [facility] 2020-11-15 2020-11-15 Outpatient Belia CHURCHILL [facility] [id number] Univers 14:00:00 13:37:47 [facility] 2020-11-15 2020-11-15 Outpatient Belia CHURCHILL [facility] [id number] Univers 14:00:00 13:37:47 [facility] 2020-10-14 2020-10-14 Damion [facility] 1.2.840.114 [id number] Univers 00:00:00 00:00:00 [facility] [id number] it y of [place] 4.2.7.2.686 Manuel as Professio [phone] Tn halieva champ [address] [place] [address] Office Building One 2020-10-08 2020-10-08 Outpatient Belia TALBERT [facility] [id number] Univers 14:20:00 15:23:11 [facility] 2020-10-08 2020-10-08 Outpatient R KAVON [facility] [id number] Univers 14:20:00 15:23:11 [facility] 2020-10-08 2020-10-08 Outpatient Belia TALBERT [facility] [id number] Univers 14:20:00 14:20:00 JEN ity of [facility] 2020-10-08 2020-10-08 Urgent Provider, [facility] 1.2.840.114 [id number] Univers 13:57:06 14:17:06 Care Jen [facility] 350.1.13.10 ity of [place] 4.2.7.2.686 Manuel as Professio [phone] [facility] [address] Office [facility] One 2020-09-12 2020-09-12 Orders Doctor THOMAS 1.2.840.114 [id number] Univers 00:00:00 00:00:00 Only Unassigned, JULIUS 350.1.13.10 ity [place] [facility] 4.2.7.2.686 Manuel as [phone] [address] 2020-09-04 2020-09-04 Telephone Eleni [facility] 1.2.840.114 [id number] Univers 00:00:00 00:00:00 [facility] 350.1.13.10 ity of [place] 4.2.7.2.686 Manuel as Professio [phone] [address] Office [facility] 2020-08-05 2020-08-05 Outpatient R JOSE ALBERTO [facility] [id number] Univers 09:40:00 09:40:00 GEOVANYDIAN etienney o f [facility] 2020-08-05 2020-08-05 Office Jose Alberto, [facility] 1.2.840.114 [id number] Univers 09:15:43 09:35:40 Visit Geovanydian [place] 350.1.13.10 [place].2.[place] Profess[place] [phone] [facility] 059 [facility] 2020-07-25 2020-07-25 Outpatient R JOSE ALBERTO [facility] [id number] Univers 08:31:20 23:59:00 LIBRADO revelesy o f [facility] 2020-07-25 2020-07-25 Outpatient R JOSE ALBERTO, [facility] [id number] Univers 08:31:20 23:59:00 LIBRADO ity o f [facility] 2020-07-25 2020-07-25 Outpatient R JOSE ALBERTO [facility] [id number] Univers 09:00:00 09:00:00 LIBRADO ity o f [facility] 2020-07-10 2020-07-10 Telephone HILTON NguyenETIENNE 1.2.840.114 [id number] Univers 00:00:00 00:00:00 Y HEALTH 350.1.13.10 i ty [place] [phone] [facility] [address] 2020-06-28 2020-06-28 Orders Doctor THOMAS 1.2.840.114 [id number] Univers 00:00:00 00:00:00 Only Unassigned, JULIUS 350.1.13.10 ity [place] [facility] 4.2.7.2.686 Manuel as [phone] [facility] [address] 2020-06-25 2020-06-25 Outpatient TANA ISAACS [facility] [id number] Univers 09:45:00 09:45:00 ity of [facility] 2020-06-25 2020-06-25 Outpatient TANA ISAACS [facility] [id number] Univers 09:45:00 09:45:00 ity of [facility] 2020-06-25 2020-06-25 Outpatient TANA ISAACS [facility] [id number] Univers 09:45:00 09:45:00 ity of [facility] 2020-06-25 2020-06-25 Office Tana Velez [facility] 1.2.840.114 [id number] Univers 09:18:55 09:33:55 Visit Health 350.1.13.10 it y of [place] [phone] [facility] [address] 2020-06-11 2020-06-11 Outpatient R MARKUS [facility] [id number] Univers 13:30:00 14:34:44 KEISHA to [facility] 2020-06-11 2020-06-11 Outpatient R MARKUS [facility] [id number] Univers 13:30:00 14:34:44 KEISHA to [facility] 2020-06-11 2020-06-11 Office Markus [facility] 1.2.664.112 [id number] Univers 12:55:34 14:34:44 Visit Keisha Miller 350.1.13.10 i ty yousif [place] [phone] Tn dical nal [address] 2020-06-11 2020-06-11 Outpatient R APARICIO [facility] [id number] Univers 13:30:00 13:30:00 KEISHA lorraine [facility] 2020-06-03 2020-06-03 Outpatient R JESSY [facility] [id number] Univers 08:50:00 08:50:00 INDIGO [facility] 2020-06-03 2020-06-03 Outpatient R JESSY [facility] [id number] Univers 08:50:00 08:31:51 INDIGO [facility] 2020-06-03 2020-06-03 Outpatient R JESSY [facility] [id number] Univers 08:50:00 08:31:51 [facility] 2020-05-31 2020-05-31 Outpatient R ARAVIND [facility] [id number] Univers 09:00:00 09:00:00 LIDIA etiennelorraine alegria [facility] 2020-05-31 2020-05-31 Outpatient R ARAVIND [facility] [id number] Univers 09:00:00 09:00:00 LIDIA alegria [facility] 2020-05-31 2020-05-31 Outpatient R ARAVIND [facility] [id number] Univers 09:00:00 09:00:00 LIDIA etiennelorraine ines martine [facility] 2020-05-30 2020-05-30 [facility], Ad[facility] Pob I [facility] 1.2. 840.114 [id number] Univers 10:38:21 10:58:21 Visit Jeremiah Knowlesjuanita Wendy Malone 350.1.13.1 0 itTaylor 4.2.7.2.686 [place] Professio [phone] Tn dical [address] 2020-05-30 2020-05-30 Outpatient R ELENI [facility] [id number] Univers 10:00:00 10:36:57 WONDIFUL ity o f [facility] 2020-05-30 2020-05-30 Outpatient R ELENI [facility] [id number] Univers 10:00:00 10:36:57 WONDIFUL ity o f [facility] 2020-05-30 2020-05-30 Office [facility] 1.2.840.114 [id number] Univers 09:28:48 10:36:57 Visit Wondiful A Health 350.1.13.10 ity of [place] 4.2.7.2.686 [place] as Professio [phone] [address] 2020-05-30 2020-05-30 Outpatient R ELENI [facility] [id number] Univers 10:00:00 10:00:00 WONDIFUL ity o f [facility] 2020-05-06 2020-05-06 Outpatient R JOSE ALBERTO [facility] [id number] Univers 09:00:00 09:00:00 LIBRADO ity o [facility] [place] 2020-05-01 2020-05-01 Telephone Sd [facility] 1.2.926.945 [id number] Univers 00:00:00 00:00:00 Simi Health 350.1.13.10 it y of [place] 4.2.7.2.686 [place] as Professio [phone] [address] 2020-04-24 2020-04-24 Vegetable Trimmer [facility] 1.2.840.114 [id number] Univers 11:05:23 11:20:23 Visit Jose Nguyen HEALTH 350.1.13.10 ity [facility] [place].2.7.2.[place] [phone] [address] 2020-04-24 2020-04-24 Outpatient R WENDY [facility] [id number] Univers 09:30:00 10:57:46 JOSE to [facility] 2020-04-24 2020-04-24 Outpatient R NGUYEN [facility] [id number] Univers 09:30:00 10:57:46 JOSE to [facility] 2020-04-24 2020-04-24 Office HILTON NguyenETIENNE 1.2.840.114 [id number] [facility] 09:17:48 10:57:46 Visit Jose Zhu HEALTH 350.1.13.10 i ty of [place] [phone] [facility] [address] 2020-04-24 2020-04-24 Outpatient [facility] [id number] Univers 09:30:00 09:30:00 JOSE to [facility] 2020-04-24 2020-04-24 Telephone [facility] 1.2.412.496 [id number] [facility] 00:00:00 00:00:00 Simi Health 350.1.13.10 it y of [place] 4.2.7.2.686 [place] as Professio [phone] [address] 2020-04-24 2020-04-24 Telephone [facility] 1.2.775.393 [id number] Univers 00:00:00 00:00:00 Simi Health 350.1.13.10 it y of [place] 4.2.7.2.686 [place] as Professio [phone] [address] 2020-04-22 2020-04-22 Orders Doctor THOMAS 1.2.840.114 [id number] Univers 00:00:00 00:00:00 Only Unassigned, JULIUS 350.1.13.10 ity of [place] [facility] 4.2.7.2.686 Manuel as [phone] [facility] [address] 2020-04-18 2020-04-18 Vegetable Trimmer [facility] 1.2.840.114 [id number] Univers 09:49:19 09:58:35 Visit Morena Gray Lorraine HEALTH 350.1.13.10 ity of [place] [phone] [facility] [address] 2020-04-18 2020-04-18 Outpatient R SHABANA [facility] [id number] Univers 09:45:00 09:58:35 MORENAJOSE to [facility] 2020-04-18 2020-04-18 Outpatient R SHABANA [facility] [id number] Univers 09:45:00 09:58:35 MORENA to [facility] 2020-04-18 2020-04-18 Office HILTON Gray 1..080.665 [id number] Univers 08:45:47 09:38:59 Visit Morena Y HEALTH 350.1.13.10 i ty of [facility] [place].2.7.2.[place] [phone] [address] 2020-04-18 2020-04-18 Outpatient R SHABANA [facility] [id number] Univers 09:00:00 09:00:00 MORENA to [facility] 2020-04-11 2020-04-11 Outpatient R SD [facility] [id number] Univers 13:30:00 16:02:08 SIMI itlorraine [facility] 2020-04-11 2020-04-11 Outpatient R SD [facility] [id number] Univers 13:30:00 16:02:08 SIMI to [facility] 2020-04-11 2020-04-11 Outpatient R SD [facility] [id number] Univers 13:30:00 16:02:08 SIMI lorraine [facility] 2020-04-11 2020-04-11 Office Sd [facility] 1.2.840.114 [id number] Univers 12:57:38 16:02:08 Visit Simi Health 350.1.13.10 it y of [place] 4.2.7.2.686 Manuel as Professio [phone] [address] Office Building One 2020-04-11 2020-04-11 Outpatient [facility] [id number] Univers 13:30:00 13:30:00 SIMI itlorraine [facility] 2020-04-03 2020-04-03 Telephone Sd [facility] 1.2.361.604 [id number] Univers 00:00:00 00:00:00 Simi Health 350.1.13.10 it y of [place] 4.2.7.2.686 Manuel as Professio [phone] [address] Office Building One 2020-03-27 2020-03-27 [facility] 1.2.632.627 [id number] 00:00:00 00:00:00 Simi Health 350.1.13.10 [place] 4.2.7.2.686 Professio [phone] [place] [address] Office Building One 2020-03-27 2020-03-27 [facility] 1.2.197.833 [id number] Univers 00:00:00 00:00:00 Simi Health 350.1.13.10 it y of [place] 4.2.7.2.686 Manuel as Professio [phone] [address] Office [facility] One 2020-03-26 2020-03-26 [facility] 1.2.511.571 [id number] 00:00:00 00:00:00 [facility]i [facility] 350.1.13.10 [place] 4.2.7.2.686 Professio [phone] [place] [address] Office Building One 2020-03-26 2020-03-26 [facility] 1.2.288.516 [id number] Univers 00:00:00 00:00:00 [facility]i [facility] 350.1.13.10 it y of [place] 4.2.7.2.686 Manuel as Professio [phone] [address] Office [facility] One 2020-03-25 2020-03-25 Telephone [facility] 1.2.840.114 [id number] 00:00:00 00:00:00 Sam Health 350.1.13.10 [place] 4.2.7.2.686 Professio [phone] [place] [address] Office Building One 2020-03-25 2020-03-25 Telephone [facility] 1.2.840.114 [id number] Univers 00:00:00 00:00:00 Sam Health 350.1.13.10 it y of [place] 4.2.7.2.686 Manuel as Professio [phone] Tn dical nal [address] [place] [address] Office Building One 2020-03-01 2020-03-01 Orders Doctor THOMAS 1.2.840.114 [id number] 00:00:00 00:00:00 Only Unassigned, JULIUS 350.1.13.10 [place] [facility] 4.2.7.2.686 [id number] [facility] 2020-03-01 2020-03-01 Orders Doctor THOMAS 1.2.840.114 [id number] Univers 00:00:00 00:00:00 Only Unassigned, JULIUS 350.1.13.10 ity of [place] [facility] 4.2.7.2.686 Manuel as [phone] [address] 2020-02-29 2020-02-29 Patient Doctor [facility] 1.2.840.114 [id number] 00:00:00 00:00:00 Secure Msg Unassigned, Health 350.1.13.10 [place] 4.2.7.2.686 Professio [phone] nal [facility] Office Building One 2020-02-29 2020-02-29 Patient Doctor [facility] 1.2.840.114 [id number] [facility] 00:00:00 00:00:00 Secure Msg Unassigned, Health 350.1.13.10 ity of [place] 4.2.7.2.686 Manuel as Professio [phone] Tn dical nal [address] [place] [address] Office Building One 2020-02-26 2020-02-26 Telephone [facility] 1.2.643.170 [id number] 00:00:00 00:00:00 Simi Health 350.1.13.10 [place] 4.2.7.2.686 Professio [phone] [place] [address] Office Building One 2020-02-26 2020-02-26 [facility]phone [facility] 1.2.917.254 [id number] Univers 00:00:00 00:00:00 Simi [facility] 350.1.13.10 it y of [place] 4.2.7.2.686 Manuel as Professio [phone] Tn dic[address] 2020-02-01 2020-02-01 Telephone [facility] 1.2.840.114 [id number] 00:00:00 00:00:00 [facility] 350.1.13.10 [place] 4.2.7.2.686 Professio [phone] [address] 2020-02-01 2020-02-01 Telephone [facility] 1.2.840.114 [id number] [facility] 00:00:00 00:00:00 Sam Health 350.1.13.10 it y of [place] 4.2.7.2.686 Manuel as Professio [phone] Tn dical [address] 2020-01-31 2020-01-31 Orders Doctor THOMAS 1.2.840.114 [id number] 00:00:00 00:00:00 Only Unassigned, JULIUS 350.1.13.10 [place] [facility] 4.2.7.2.686 [id number] [facility] 2020-01-31 2020-01-31 Orders Doctor THOMAS 1.2.840.114 [id number] Univers 00:00:00 00:00:00 Only Unassigned, JULIUS 350.1.13.10 ity of [place] [facility] 4.2.7.2.686 Manuel as [phone] [address] 2020-01-23 2020-01-23 Orders Doctor GUZMAN 1.2.840.114 [id number] 00:00:00 00:00:00 Only Unassigned, JULIUS 350.1.13.10 [place] [facility] 4.2.7.2.686 [id number] [facility] 2020-01-23 2020-01-23 Orders Doctor GUZMAN 1.2.840.114 [id number] Univers 00:00:00 00:00:00 Only Unassigned, JULIUS 350.1.13.10 ity of [place] [facility] 4.2.7.2.686 Manuel as [phone] [address] 2020-01-09 2020-01-09 Telephone [facility] 1.2.840.114 [id number] 00:00:00 00:00:00 Sam [facility] 350.1.13.10 [place] 4.2.7.2.686 Professio [phone] [place] [address] Office Building [facility] 2020-01-09 2020-01-09 Telephone Vahid [facility] 1.2.840.114 [id number] Univers 00:00:00 00:00:00 [facility] 350.1.13.10 it y of [place] 4.2.7.2.686 Manuel as Professio [phone] [address] Office [facility] 2020-01-08 2020-01-08 Outpatient R [facility] [id number] Univers 16:40:00 16:40:00 ity of [facility] 2020-01-08 2020-01-08 Urgent Provider, [facility] 1.2.907.411 [id number] 16:10:58 16:30:58 Care [facility] 350.1.13.10 Care [place] 4.2.7.2.686 Professio [phone] [place] [address] Office [facility] 2020-01-08 2020-01-08 Urgent Provider, [facility] 1.2.840.114 [id number] [facility] 16:10:58 16:30:58 Care Greg [facility] 350.1.13.10 ity of [place] 4.2.7.2.686 Manuel as Professio [phone] [address] Office [facility] 2019-11-29 2019-11-29 Orders Doctor GUZMAN 1.2.840.114 [id number] 00:00:00 00:00:00 Only Unassigned, JULIUS 350.1.13.10 [place] [facility] 4.2.7.2.686 [phone] 009 2019-11-29 2019-11-29 Orders Doctor GUZMAN 1.2.840.114 [id number] Univers 00:00:00 00:00:00 Only Unassigned, JULIUS 350.1.13.10 ity of [place] [facility] 4.2.7.2.686 Manuel as [phone] [address] 2019-11-17 2019-11-18 Office Aravind [facility] 1.2.840.114 [id number] 08:28:10 17:49:23 Visit Lidia Miller 350.1.13.10 [place] 4.2.7.2.686 Professio [phone] [address] 2019-11-17 2019-11-18 Office [facility] 1.2.840.114 [id number] Univers 08:28:10 17:49:23 Visit Lidia [place] 350.1.13.10 ity of [place]2.[place].2.[place] [phone] Tn dic[address] 2019-11-17 2019-11-17 Outpatient R [facility] [id number] Univers 08:45:00 08:45:00 LIDIA alegria [facility] 2019-11-13 2019-11-13 Outpatient [facility] [id number] Univers 09:00:00 09:00:00 SENDIL ity of [facility] 2019-11-13 2019-11-13 Orders Doctor THOMAS 1.2.840.114 [id number] Univers 00:00:00 00:00:00 Only Unassigned, JULIUS 350.1.13.10 ity of [place] [facility] 4.2.7.2.686 Manuel as [phone] [address] 2019-11-01 2019-11-01 Telephone [facility] 1.2.840.114 [id number] [facility] 00:00:00 00:00:00 Sam Miller 350.1.13.10 i ty of [place].2.7.2.[place] [phone] Tn dical [facility] 044 [facility] 2019-10-27 2019-10-27 Office [facility] 1.2.840.114 [id number] Univers 09:30:53 10:29:54 Visit Lidia Miller 350.1.13.10 ity of [place]2.7.2.[place] [phone] Tn dical [facility] 205 [facility] 2019-10-27 2019-10-27 Outpatient R [facility] [id number] Univers 10:00:00 10:00:00 LIDIA alegria [facility] 2019-10-27 2019-10-27 Telephone [facility] 1.2.603.662 [id number] Univers 00:00:00 00:00:00 Librado Miller 350.1.13.10 ity of [place]2.7.2.[place] [phone] Tn dical nal 9 [facility] 2019-10-27 2019-10-27 Telephone [facility] 1.2.928.931 [id number] Univers 00:00:00 00:00:00 Librado Miller 350.1.13.10 ity of [place]2.[place].2.[place] [phone] Tn dical nal 9 [facility] 2019-10-21 2019-10-21 Case [facility] 1.2.840.114 [id number] Univers 00:00:00 00:00:00 Management Chela Miller 350.1.13.10 ity of [place].2.7.2.686 [place] [phone] Tn dical nal 044 [facility] 2019-10-20 2019-10-20 [place] [facility] 1.2.840.114 [id number] Univers 00:00:00 00:00:00 Sam Miller 350.1.13.10 i ty of [place] 4.2.7.2.[place] [phone] [facility] 044 [facility] 2019-10-17 2019-10-17 Office Jose [facility] 1.2.840.114 [id number] Univers 11:20:37 12:12:34 Visit Librado Miller 350.1.13.10 ity of [place] 4.2.7.2.686 [place] [phone] Tn dic[address] 2019-10-17 2019-10-17 Outpatient R [facility] [id number] Univers 11:40:00 11:40:00 LIBRADO to o f [facility] 2019-10-16 2019-10-16 Telephone [facility] 1.2.262.644 [id number] Univers 00:00:00 00:00:00 Simi Miller 350.1.13.10 i ty of [place] 4.2.7.2.686 [place] [phone] Tn dicva nal 059 [facility] 2019-10-10 2019-10-10 Refill Sd [facility] 1.2.840.114 [id number] Univers 00:00:00 00:00:00 [facility] 350.1.13.10 it y of [place] 4.2.7.2.686 Manuel as Professio [phone] [facility] [address] Office [facility] One 2019-09-07 2019-09-07 Telephone [facility] 1.2.214.128 [id number] Univers 00:00:00 00:00:00 Sendday [facility] 350.1.13.10 ity of [place]2.7.2.686 [place] [phone] [address] Office [facility] 2019-09-01 2019-09-01 [facility] 1.2.840.114 [id number] Univers 11:04:23 11:45:55 Visit Oli Miller 350.1.13.10 ity of [place] 4.2.7.2.686 [place] [phone] [address] 2019-09-01 2019-09-01 Outpatient R RACHELE [facility] [id number] Univers 11:00:00 11:00:00 SENDDAY to [facility] 2019-07-21 2019-07-21 Outpatient R VAHID [facility] [id number] Univers 10:30:00 10:30:00 SAM to [facility] 2019-07-21 2019-07-21 Outpatient R ELENI [facility] [id number] Univers 09:15:00 09:15:00 WONDIFUL ity o f [facility] 2019-07-21 2019-07-21 Telemedici Vahid [facility] 1.2.840.114 [id number] Univers 07:53:52 08:08:52 ne Visit Sam Millre 350.1.13.10 ity of [place] 4.2.7.2.686 [place] [phone] Tn dical nal 044 [facility] 2019-07-10 2019-07-10 [facility] 1.2.840.114 [id number] Univers 00:00:00 00:00:00 [facility] 350.1.13.10 it y of [place] 4.2.7.2.686 Manuel as Professio [phone] Tn dical nal [address] Office [facility] 2019-06-09 2019-06-09 [facility] 1.2.840.114 [id number] Univers 00:00:00 00:00:00 [facility]i [facility] 350.1.13.10 it y of [place] 4.2.7.2.686 Manuel as Professio [phone] Tn dical nal 044 [facility] 2019-05-12 2019-05-12 [facility] Vascular Room 1 - [facility] 1.2.840.114 [id number] [facility] 08:03:52 12:08:17 Visit Oli Jeffrey 350.1.13. 10 ity of [place]2.[place].2.[place] [phone] Tn dicva nal 059 [facility] 2019-05-12 2019-05-12 [facility] [facility], [facility] Vascular Room 1 - [facility] 1.2.840.114 [id number] [facility] 08:03:22 12:07:58 Visit Oli Jeffrey 350.1.13. 10 ity of [place] 4.2.7.2.[place] [phone] Tn dical nal 059 [facility] 2019-05-01 2019-05-02 Office [facility] 1.2.840.114 [id number] Univers 16:37:44 13:25:33 Visit [facility]i Health 350.1.13.10 it y of [place] 4.2.7.2.686 Manuel as Professio [phone] Tn dical nal 044 [facility] One 2019-05-02 2019-05-02 Office [facility] 1.2.840.114 [id number] Univers 09:14:48 10:02:07 Visit Librado Miller 350.1.13.10 ity of [place] 4.2.7.2.[place] [phone] Tn nat nal 059 [facility] 2019-05-02 2019-05-02 Telephone [facility] 1.2.602.059 [id number] Univers 00:00:00 00:00:00 [facility] 350.1.13.10 it y of [place] 4.2.7.2.686 Manuel as Professio [phone] Tn [facility] [address] Office [facility] 2019-04-30 2019-05-01 Emergency X SINGER [facility] ERT [id number] Univers 23:28:52 01:43:00 JOSE to [facility] 2019-04-30 2019-05-01 Emergency Singer [facility] 1.2.433.750 [id number] Univers 23:28:52 01:43:00 Jose Miller 350.1.13.10 i ty of [place].2.[place] [phone] [address] 2019-04-18 2019-04-18 Telephone [facility] 1.2.162.471 [id number] Univers 00:00:00 00:00:00 [facility] 350.1.13.10 it y of [place] 4.2.7.2.686 Manuel as Professio [phone] [facility] [address] Office [facility] 2019-03-09 2019-03-09 Outpatient R SD [facility] [id number] Univers 17:12:34 23:59:00 SIMI to [facility] 2018-12-07 2018-12-07 Outpatient Madhavi [place] [id number] Common 08:19:00 08:19:00 [facility] it [facility] 2018-12-06 2018-12-06 Outpatient Madhavi [place] [id number] Common 10:40:00 10:40:00 [facility] it [facility] 2018-11-22 2018-11-22 Outpatient [facility] [id number] Common 09:02:00 09:02:[address] [facility] 2018-11-18 2018-11-18 Outpatient [facility] [id number] Common 09:05:00 09:05:[address] [facility] 2018-11-10 2018-11-10 Outpatient [facility] [id number] Common 16:00:00 16:00:[address] [facility] 2018-10-19 2018-10-19 Outpatient [facility] [id number] Common 14:30:00 14:30:[address] [facility] 2018-06-14 2018-06-14 Outpatient [facility] [id number] Common 08:32:00 08:32:[address] [facility] 2018-06-07 2018-06-07 Outpatient [facility] [id number] Common 13:45:00 13:45:[address] [facility] [address] [facility] 2016-10-01 2016-10-02 [facility] 4626 [id number] Memoria 15:22:00 04:59:00 r Nader 01 l RAVEN Doe 2016-10-01 2016-10-02 [facility] 4626 [id number] Memoria 15:22:00 04:59:00 r Nader 01 l RAVEN Doe 2016-10-01 2016-10-01 Outpatient danyel [facility] [id number] 10:22:00 23:59:00 Darwin Zay Ramírez [facility] 2016-07-02 2016-07-03 [facility] 4626 [id number] Memoria 15:08:00 04:59:00 belia Doe 00 l RAVEN Doe 2016-07-02 2016-07-03 [facility] 4626 [id number] Memoria 15:08:00 04:59:00 r Nader 00 l RAVEN Doe 2016-07-02 2016-07-02 Outpatient [facility], [facility] [id number] 10:08:00 23:59:00 Darwin [address] [facility] 2010-10-24 2010-10-24 Orders Doctor THOMAS [id number] 00:00:00 00:00:00 Only Unassigned, JULIUS [id number] ity of [facility] [id number] Manuel as [phone] [place] [address] Branch Results Test Description Test Time Test Comments Results Result Comments Source Prepare RBC 2022-01-26 23:54:00 Test Item Value Reference Range Interpretation Comme nts Unit ABO (test code = 9942202) O Pos UNIT NUMBER (test code = 934-0) [id number] Status (test code = 9606554) WORK IN PROGRESS Blood Bank Product (test code = 2263) RED BLOOD CELLS PRODUCT CODE (test code = 933-2) [id number] CROSSMATCH (test code = 2264) [id number] 23:54:00 Test Item Value Reference Range Interpretation Comments Unit ABO (test code = O Pos 8382145) UNIT NUMBER (test code = [id number] 934-0) Status (test code = 9420943) WORK IN PROGRESS Blood Bank Product (test RED BLOOD CELLS code = 2263) PRODUCT CODE (test code = A9371Y97 933-2) CROSSMATCH (test code = COMPATIBLE 2264) [facility] [id number] 16:44:00 Test Item Value Reference Range Interpretation Comments ANTIBODY ID Ifbu-TaQnfi-YtnU anti-c, ant i-Jkb, (BEAKER) (test nti-c anti-Bg code = 2253) Antibody Consult SIGNED OUT Anti Jkb ca uses RBC (test code = 2479) injury, t ransfuse Jkb negative RBCs.Anti c cau ses RBC injury, transfuse c neg ative RBCs. Anti Bga detected - but this antibody is clinicallty insignificant.E lectr onic Signature: Giorgi Ugarte M.D. [facility] HospitalAntibody [id number] 16:44:00 Test Item Value Reference Range Interpretation Comments ANTIBODY ID Bedc-RiCdwf-MhzD anti-c, ant i-Jkb, (LiqueoAKER) (test nti-c anti-Bg code = 2253) Antibody Consult SIGNED OUT Anti Jkb ca uses RBC (test code = 2479) injury, t ransfuse Jkb negative RBCs.Anti c cau ses RBC injury, transfuse c neg ative RBCs. Anti Bga detected - but this antibody is clinicallty insignificant.E lectr onic Signature: Giorgi Ugarte M.D. [facility] HospitalHEMOGLOBIN [id number] 12:19:10 Test Item Value Reference Range Interpretation Comments HEMOGLOBIN A1C 6.1 % See_Comment H [Automated m essage] ELECTROPHORESIS ([employer]) The system which (test code = 3811) generated this result transmitted ref erence range: <=5.6%. The reference range was not used to int erpret this result as normal/abnormal . "The A1c is measured using a NGSP-certified method. HbA1c value equal to or greater than 6.5% as thediagnosis cutoff for diabetes. An HbA1c value of 5.7- 6.4% indicates increased risk for diabetes (prediabetes)."Senior It Assistant ID - ADMOperator ID - ADMPOC-Glucose [id number] 10:47:05 Test Item Value Reference Range Interpretation Comments POC-Glucose Meter (test 231 mg/dL 70-110 H : TE STED AT [facility] code = 1538) [address] [facility], 770 30: Senior It Assistant/Techni lyndsay ID = [id number] for Arielle Herzog on Lab Interpretation (test Abnormal code = 91355-6) [facility]OC-[facility]ucose [id number] 10:47:05 Test Item Value Reference Range Interpretation Comments POC-Glucose Meter (test 231 mg/dL 70-110 H : TE STED AT [facility] code = 1538) [address] [facility], 770 30: Senior It Assistant/Techni lyndsay ID = [id number] for Arielle Herzog on Lab Interpretation (test Abnormal code = 53434-5) [facility] HospitalPOCT-GLUCOSE [id number] 10:47:05 Test Item Value Reference Range Interpretation Comments POC-GLUCOSE METER 231 mg/dL 70-110 H : TESTED A T [facility] 6720 (BEAKER) (test code = GIRISH Celaya [facility], 1538) [address]: Senior It Assistant/Techni lyndsay ID = [id number] for Yvan Kirk POCT-GLUCOSE [id number] 09:39:47 Test Item Value Reference Range Interpretation Comments POC-GLUCOSE METER 211 mg/dL 70-110 H : TESTED A T [facility] 6720 (BEAKER) (test code [facility], = 1538) [address]: Senior It Assistant/Techni lyndsay ID = [id number] for Soraya Tamayo [id number] 06:47:20 Test Item Value Reference Range Interpretation Comments MAGNESIUM (BEAKER) (test code = 1.8 mg/dL 1.6-2.6 627) Senior It Assistant ID - BARBARA MBASIC METABOLIC [id number] 06:47:19 Test Item Value Reference Range Interpretation Comments SODIUM (BEAKER) 138 meq/L 136-145 (test code = 381) POTASSIUM 4.0 meq/L 3.5-5.1 (BEAKER) (test code = 379) CHLORIDE (BEAKER) 103 meq/L 98-107 (test code = 382) CO2 (BEAKER) 24 meq/L 22-29 (test code = 355) BLOOD UREA 12 mg/dL 7-21 NITROGEN (BEAKER) (test code = 354) CREATININE 1.04 mg/dL 0.57-1.25 (BEAKER) (test code = 358) GLUCOSE RANDOM 231 mg/dL 70-105 H (BEAKER) (test code = 652) CALCIUM (BEAKER) 9.2 mg/dL 8.4-10.2 (test code = 697) EGFR (BEAKER) 56 Interpretatio n of eGFR (test code = mL/min/1.73 values Stage De scription 1092) sq m Result G1 Valeria l or high >=90 G2 Mildly decreased 60-89 G3a Mildl y to moderately 45-5 9 G3b Moderately to s everely 30-44 G4 Severl y decreased 15-29 G5 Kidney failure <15Reported eGF R is based on the CKD-EPI 2020 equation that d oes not use a race coefficientEsti mated GFR is not as accur ate as Creatinine Denisse huertas in predicting glom erular filtration rate . Estimated GFR is not appl icable for dialysis patien ts Senior It Assistant ID - BARBARA [facility] (HEMOGRAM ONLY)2022-01-26 05:00:02 Test Item Value Reference Range Interpretation Comments WHITE BLOOD CELL COUNT (BEAKER) 9.4 K/ L 3.5-10.5 (test code = 775) RED BLOOD CELL COUNT (BEAKER) 3.21 M/ L 3.93-5.22 L (test code = 761) HEMOGLOBIN (BEAKER) (test code = 8.1 GM/DL 11.2-15.7 L 410) HEMATOCRIT (BEAKER) (test code = 26.7 % 34.1-44.9 L 411) MEAN CORPUSCULAR VOLUME (BEAKER) 83 fL 79-95 (test code = 753) MEAN CORPUSCULAR HEMOGLOBIN 25.2 pg 25.6-32.2 L (BEAKER) (test code = 751) MEAN CORPUSCULAR HEMOGLOBIN CONC 30.3 GM/DL 32.2-35.5 L (BEAKER) (test code = 752) RED CELL DISTRIBUTION WIDTH 16.9 % 11.7-14.4 H (BEAKER) (test code = 412) PLATELET COUNT (BEAKER) (test 337 K/CU MM 150-450 code = 756) MEAN PLATELET VOLUME (BEAKER) 10.2 fL 9.4-12.3 (test code = 754) NUCLEATED RED BLOOD CELLS 0 /100 WBC 0-0 (BEAKER) (test code = 413) POCT-GLUCOSE [id number] 04:30:25 Test Item Value Reference Range Interpretation Comments POC-GLUCOSE METER 230 mg/dL 70-110 H : TESTED A T [facility] 6720 (BEAKER) (test code = [facility], 1538) [address]: Senior It Assistant/Techni lyndsay ID = [id number] for TIMOTHY CURRANDIONY, MIS POCT-GLUCOSE [id number] 22:24:40 Test Item Value Reference Range Interpretation Comments POC-GLUCOSE METER 286 mg/dL 70-110 H : TESTED A T [facility] 6720 (BEAKER) (test code = [facility], 1538) [address]: Senior It Assistant/Techni lyndsay ID = [id number] for WI LLIAMS, MIS RAD, CHEST, 1 VIEW, NON [id number] 18:09:00Reason for exam:->PICC PlacementShould this be performed at the bedside?->Yes [facility] 1945 Sex: FFINAL REPORT HISTORY: Status post PICC line placement COMPARISON: 12/10/2016 FINDINGS: A left PICC line is present, with its tip in the region of the distal superior vena cava. The lungsare clear. No pleural effusions or pneumothorax. The heart shadow is normal in size. The thoracic aorta is mildly tortuous. Spinal stimulation hardware is present, with the leads projecting at the level of the mid thoracic spine. Signed: Bhanu Donovaneport Verified Date/Time: 01/25/2022 18:09:25 POCT-GLUCOSE [id number] 16:50:37 Test Item Value Reference Range Interpretation Comments POC-GLUCOSE METER 151 mg/dL 70-110 H : TESTED A T [facility] 6720 (BEAKER) (test code = GIRISH Celaya [facility], 1538) [address]: Senior It Assistant/Techni lyndsay ID = [id number] for RIAN LAKHANI SARS-CoV2/RT-PCR ([facility])2022-01-25 15:12:09 Test Item Value Reference Interpretation Comments Range SARS-COV2/RT-PCR Negative Negative The SARS-Co V-2 (test code = target nucleic 90067-1) acids are not detected in thi s specimen. Negat abrahan results do not preclude SARS-C oV-2 infection and should not be u sed as the sole bas is for patient management decisions. Nega tive results must be combined with clinical observations, patient history , and epidemiolog ical information. A false negative result may occu r if a specimen is improperly collected, transported or handled. This S ARS CoV-2 test is a rapid, real-peggy e RT-PCR test intended for th e qualitative detection of nucleic acid fr om SARS-CoV-2 in a nasopharyngeal swab specimen collec bruna from individual s suspected of COVID-19 by the ir healthcare provider. ELLIOT (test code = This test has been ELLIOT) authorized by FDA under an EUA for use by authorized laboratories. This test is only authorized for the duration of the declaration that circumstances exist justifying the authorization of emergency use of in vitro diagnostic tests for detection and/or diagnosis of COVID-19 under Section 564(b)(1) of the Federal Food, Drug and Cosmetic Act, 21 U.S.C. 360bbb-3(b)(1), unless the authorization is terminated or revoked sooner. Fact Sheet for Healthcare Providers: https://www.[employer]!/Documents/Xp ert%20Xpress%20SAR S%20CoV-2/Fact%20S heets/302-3802%20S ARS-COV-2%20HEALTH CARE%20PROVIDERS%2 0FACT%20SHEET.pdf Fact Sheet for Healthcare Patients: https://www.[employer]!/Documents/Xp ert%20Xpress%20SAR S%20CoV-2/Fact%20S heets/302-3801%20S ARS-COV-2%20PATIEN T%20FACT%20SHEET.p df Lab Interpretation Normal (test code = 90379-9) [facility])2022-01-25 15:12:09 Test Item Value Reference Interpretation Comments Range SARS-COV2/RT-PCR Negative Negative The SARS-Co V-2 (test code = target nucleic 27489-2) acids are not detected in thi s specimen. Negat abrahan results do not preclude SARS-C oV-2 infection and should not be u sed as the sole bas is for patient management decisions. Nega tive results must be combined with clinical observations, patient history , and epidemiolog ical information. A false negative result may occu r if a specimen is improperly collected, transported or handled. This S ARS CoV-2 test is a rapid, real-peggy e RT-PCR test intended for th e qualitative detection of nucleic acid fr om SARS-CoV-2 in a nasopharyngeal swab specimen [facility] from individual s suspected of COVID-19 by the ir healthcare provider. ELLIOT (test code = This test has been ELLIOT) authorized by FDA under an EUA for use by authorized laboratories. This test is only authorized for the duration of the declaration that circumstances exist justifying the authorization of emergency use of in vitro diagnostic tests for detection and/or diagnosis of COVID-19 under Section 564(b)(1) of the Federal Food, Drug and Cosmetic Act, 21 U.S.C. 360bbb-3(b)(1), unless the authorization is terminated or revoked sooner. Fact Sheet for Healthcare Providers: https://www.[employer]!/Documents/Xp ert%20Xpress%20SAR S%20CoV-2/Fact%20S heets/302-3802%20S ARS-COV-2%20HEALTH CARE%20PROVIDERS%2 0FACT%20SHEET.pdf Fact Sheet for Healthcare Patients: https://www.[employer]!/Documents/Xp ert%20Xpress%20SAR S%20CoV-2/Fact%20S heets/302-3801%20S ARS-COV-2%20PATIEN T%20FACT%20SHEET.p df Lab Interpretation Normal (test code = 63480-5) [facility])2022-01-25 15:12:09 Test Item Value Reference Range Interpretation Comments SARS-COV2/RT-PCR Negative Negative The SARS-Co V-2 target (test code = nucleic acids a re not 6233222) detected in thi s specimen. Negative result s do not preclude SARS-C oV-2 infection and s hould not be used as the rashaun e basis for patient managem ent decisions. Nega tive results must be combine d with clinical observ ations, patient history , and epidemiological information. A false negativ e result may occur if a spec imen is improperly seb ected, transported or handled. This SARS CoV-2 test is a rapid, real-time RT-PC R test intended for th e qualitative detection of nu cleic acid from SARS-CoV-2 in a nasopharyngeal swab specimen collected from individuals suspected of CO VID-19 by their healthcar e provider. This test has been authorized by FDA under an EUA for use by authorized laboratories. This test is only authorized for the duration of the declaration that circumstances exist justifying the authorization of emergency use of in vitro diagnostic tests for detection and/or diagnosis of COVID-19 under Section 564(b)(1) of the Federal Food, Drug and Cosmetic Act, 21 U.S.C. 360bbb-3(b)(1), unless the authorization is terminated or revoked sooner. Fact Sheet for Healthcare Providers: https://www.[employer] m/Documents/Xpert%20Xpress%20SARS%20CoV-2/Fact%20Sheets/302-3802%41LFSQ-WZX-8%20 HEALTHCARE%20PROVIDERS%20FACT%20SHEET.pdf Fact Sheet for Healthcare Patients: https://www.[employer]/Documents/Xpert%20Xp ress%20SARS%20CoV-2/Fact%20Sheets/302-3801%39JZZO-YCA-2%20PATIENT%20FACT%20SHEET .pdfPOCT-GLUCOSE [id number] 12:11:38 Test Item Value Reference Range Interpretation Comments POC-GLUCOSE METER 270 mg/dL 70-110 H : TESTED A T [facility] 6720 ([employer]) (test code = [facility], 153) [address]: Senior It Assistant/Techni lyndsay ID = [id number] for RIAN LAKHANI POCT-GLUCOSE [id number] 05:54:12 Test Item Value Reference Range Interpretation Comments POC-GLUCOSE METER 73 mg/dL 70-110 : TESTED A T [facility] 6720 ([employer]) (test code = [facility], 153) [address]: Senior It Assistant/Techni lyndsay ID = [id number] for Kehinde Lisa COMPREHENSIVE METABOLIC [id number] 05:29:07 Test Item Value Reference Range Interpretation Comments TOTAL PROTEIN 5.5 gm/dL 6.0-8.3 L (BEAKER) (test code = 770) ALBUMIN (BEAKER) 3.2 g/dL 3.5-5.0 L (test code = 1145) ALKALINE 76 U/L 40-150 PHOSPHATASE (BEAKER) (test code = 346) BILIRUBIN TOTAL 0.2 mg/dL 0.2-1.2 (BEAKER) (test code = 377) SODIUM (BEAKER) 139 meq/L 136-145 (test code = 381) POTASSIUM (BEAKER) 3.6 meq/L 3.5-5.1 (test code = 379) CHLORIDE (BEAKER) 106 meq/L 98-107 (test code = 382) CO2 (BEAKER) (test 25 meq/L 22-29 code = 355) BLOOD UREA 16 mg/dL 7-21 NITROGEN (BEAKER) (test code = 354) CREATININE 0.94 mg/dL 0.57-1.25 (BEAKER) (test code = 358) GLUCOSE RANDOM 97 mg/dL 70-105 (BEAKER) (test code = 652) CALCIUM (BEAKER) 9.4 mg/dL 8.4-10.2 (test code = 697) AST (SGOT) 12 U/L 5-34 (BEAKER) (test code = 353) ALT (SGPT) 11 U/L 6-55 (BEAKER) (test code = 347) EGFR (BEAKER) 63 Interpretatio n of eGFR (test code = 1092) mL/min/1.[address] age Description sq m Result G1 Valeria l or high >=90 G2 Mildly decreased 60-89 G3a Mildl y to moderately 45-5 9 G3b Moderately to s everely 30-44 G4 Severl y decreased 15-29 G5 Kidney failure <15Reported eGF R is based on the CKD-EPI 2021 equation that d oes not use a race coefficientEsti mated GFR is not as accur ate as Creatinine Denisse huertas in predicting glom erular filtration rate . Estimated GFR is not appl icable for dialysis patien ts Senior It Assistant MOLINA - TAWANNA LOperator MOLINA STACY [id number] 04:42:32 Test Item Value Reference Range Interpretation Comments FERRITIN (BEAKER) (test code = 23.21 ng/mL 5.00-275.00 361) Senior It Assistant ID - TAWANNA PACE, TIBC, % SAT. (WITHOUT FERRITIN)2022-01-25 04:32:43 Test Item Value Reference Range Interpretation Comments IRON (BEAKER) (test code = 547) 19.0 ug/dL 40.0-160.0 L TOTAL IRON BINDING CAPACITY 320 ug/dL 250-450 (BEAKER) (test code = 769) IRON % SATURATION (2) (BEAKER) 6 % 20-55 L (test code = 2590) Senior It Assistant ID Shayan STACY LPT/[id number] 03:53:35 Test Item Value Reference Range Interpretation Comments PROTIME (BEAKER) (test 13.0 seconds 11.9-14.2 code = 759) INR (BEAKER) (test 1.00 See_Comment [Automat ed code = 370) message] The sy stem which generated this result transmitted reference range : <=5.90. The reference range was not used to interpret this result as normal/abnormal . PARTIAL THROMBOPLASTIN 25.1 seconds 22.5-36.0 TIME (BEAKER) (test code = 760) RECOMMENDED COUMADIN/WARFARIN INR THERAPY RANGESSTANDARD DOSE: 2.0 - 3.0 Includes: PROPHYLAXIS for venous thrombosis, systemic embolization; TREATMENT for venous thrombosis and/or pulmonary embolus.HIGH RISK: Target INR is 2.5-3.5 for patients with mechanical heart valves.CBC W/PLT COUNT & AUTO [id number] 03:50:34 Test Item Value Reference Range Interpretation Comments WHITE BLOOD CELL COUNT (BEAKER) 7.5 K/ L 3.5-10.5 (test code = 775) RED BLOOD CELL COUNT (BEAKER) 2.64 M/ L 3.93-5.22 L (test code = 761) HEMOGLOBIN (BEAKER) (test code = 6.5 GM/DL 11.2-15.7 L 410) HEMATOCRIT (BEAKER) (test code = 21.9 % 34.1-44.9 L 411) MEAN CORPUSCULAR VOLUME (BEAKER) 83 fL 79-95 (test code = 753) MEAN CORPUSCULAR HEMOGLOBIN 24.6 pg 25.6-32.2 L (BEAKER) (test code = 751) MEAN CORPUSCULAR HEMOGLOBIN CONC 29.7 GM/DL 32.2-35.5 L (BEAKER) (test code = 752) RED CELL DISTRIBUTION WIDTH 17.3 % 11.7-14.4 H (BEAKER) (test code = 412) PLATELET COUNT (BEAKER) (test 368 K/CU MM 150-450 code = 756) MEAN PLATELET VOLUME (BEAKER) 10.2 fL 9.4-12.3 (test code = 754) NUCLEATED RED BLOOD CELLS 0 /100 WBC 0-0 (BEAKER) (test code = 413) NEUTROPHILS RELATIVE PERCENT 66 % (BEAKER) (test code = 429) LYMPHOCYTES RELATIVE PERCENT 15 % (BEAKER) (test code = 430) MONOCYTES RELATIVE PERCENT 10 % (BEAKER) (test code = 431) EOSINOPHILS RELATIVE PERCENT 7 % (BEAKER) (test code = 432) BASOPHILS RELATIVE PERCENT 1 % (BEAKER) (test code = 437) NEUTROPHILS ABSOLUTE COUNT 4.94 K/ L 1.56-6.13 (BEAKER) (test code = 670) LYMPHOCYTES ABSOLUTE COUNT 1.13 K/ L 1.18-3.74 L (BEAKER) (test code = 414) MONOCYTES ABSOLUTE COUNT (BEAKER) 0.76 K/ L 0.24-0.36 H (test code = 415) EOSINOPHILS ABSOLUTE COUNT 0.51 K/ L 0.04-0.36 H (BEAKER) (test code = 416) BASOPHILS ABSOLUTE COUNT (BEAKER) 0.09 K/ L 0.01-0.08 H (test code = 417) IMMATURE GRANULOCYTES-RELATIVE 0.40 % 0.00-1.00 PERCENT (BEAKER) (test code = 2801) POC-Glucose [id number] 08:45:21 Test Item Value Reference Range Interpretation Comments POC-Glucose Meter (test 193 mg/dL 70-110 H : TE STED AT [facility] code = 1538) [address] [place] [address], [facility] 30: Senior It Assistant/Techni lyndsay ID = [id number] for SONU QUICK Lab Interpretation (test Abnormal code = 35761-7) [facility] [id number] 08:45:21 Test Item Value Reference Range Interpretation Comments POC-Glucose Meter (test 193 mg/dL 70-110 H : TE STED AT [facility] code = 1538) [address] [place] [address], 770 30: Senior It Assistant/Techni lyndsay ID = [id number] for DEOCOS, SONU NE SATNAM Lab Interpretation (test Abnormal code = 73969-1) [facility] [id number] 08:45:21 Test Item Value Reference Range Interpretation Comments POC-Glucose Meter (test 193 mg/dL 70-110 H : TE STED AT [facility] code = 1538) [address] [facility], 770 30: Senior It Assistant/Techni lyndsay ID = [id number] for DEOCOS, SONU NE SATNAM Lab Interpretation (test Abnormal code = 70705-5) [facility] [id number] 08:45:21 Test Item Value Reference Range Interpretation Comments POC-Glucose Meter (test 193 mg/dL 70-110 H : TE STED AT [facility] code = 1538) [address] [facility], 770 30: Senior It Assistant/Techni lyndsay ID = [id number] for DEOCOS, SONU NE SATNAM Lab Interpretation (test Abnormal code = 41495-3) [facility] [id number] 08:45:21 Test Item Value Reference Range Interpretation Comments POC-GLUCOSE METER 193 mg/dL 70-110 H : TESTED A T [facility] 6720 (BEAKER) (test code [facility], = 1538) [address]: Senior It Assistant/Techni lyndsay ID = [id number] for DEOC OS, NICOLA SATNAM POCT-GLUCOSE [id number] 08:45:15 Test Item Value Reference Range Interpretation Comments POC-GLUCOSE METER 165 mg/dL 70-110 H : TESTED A T [facility] 6720 (BEAKER) (test code = [facility], 1538) [address]: Senior It Assistant/Techni lyndsay ID = [id number] for PE PATRICIA, WALTER POCT-GLUCOSE [id number] 08:45:15 Test Item Value Reference Range Interpretation Comments POC-GLUCOSE METER 142 mg/dL 70-110 H : TESTED A T [facility] 6720 (BEAKER) (test code = [facility], 1538) [address]: Senior It Assistant/Techni lyndsay ID = [id number] for PE PATRICIA, WALTER POCT-GLUCOSE [id number] 08:45:15 Test Item Value Reference Range Interpretation Comments POC-GLUCOSE METER 136 mg/dL 70-110 H : TESTED A T [facility] 6720 (BEAKER) (test code = [facility], 153) [address]: Senior It Assistant/Techni lyndsay ID = [id number] for MARCELA FRANKS FLORENCE POCT-GLUCOSE [id number] 08:45:14 Test Item Value Reference Range Interpretation Comments POC-GLUCOSE METER 250 mg/dL 70-110 H : TESTED A T [facility] 6720 (BEAKER) (test code = [facility], 153) [address]: Senior It Assistant/Techni lyndsay ID = [id number] for MARCELA FRANKS [place] POCT-GLUCOSE [id number] 08:45:14 Test Item Value Reference Range Interpretation Comments POC-GLUCOSE METER 139 mg/dL 70-110 H : TESTED A T [facility] 6720 (BEAKER) (test code = [facility], 153) [address]: Senior It Assistant/Techni lyndsay ID = [id number] for Zully Spear [id number] 00:00:00resultCOMP. METABOLIC PANEL (98718)2021-08-04 04:03:33 Test Item Value Reference Range Interpretation Comments NA (test code = 131 mmol/L 135-145 L 6012602708) K (test code = 5.3 mmol/L 3.5-5.0 H 7160895113) CL (test code = 97 mmol/L 98-108 L 4119709768) CO2 TOTAL (test code = 23 mmol/L 23-31 1278807516) AGAP (test code = 2-16 1894294533) BUN (test code = 23 mg/dL 7-23 9588626034) GLUCOSE (test code = 418 mg/dL 70-110 H 7869614864) CREATININE (test code = 1.05 mg/dL 0.50-1.04 H 2004169195) TOTAL BILI (test code = 0.4 mg/dL 0.1-1.3 4895263059) CALCIUM (test code = 9.8 mg/dL 8.6-10.6 8420590651) T PROTEIN (test code = 6.5 g/dL 6.3-8.2 8678603270) ALBUMIN (test code = 4.1 g/dL 3.5-5.0 6479500558) ALK PHOS (test code = 82 U/L 34-122 4851117932) ALTv (test code = 14 U/L 5-35 2-6) AST(SGOT) (test code = 17 U/L 13-40 4743413042) eGFR (test code = mL/min/1.73m2 3223732814) ELLIOT (test code = ELLIOT) Association of [...] tests). Lab Interpretation Abnormal (test code = 22370-5) [facility]53 Test Item Value Reference Range Interpretation Comments LIPASE (test code = 8176521415) 396 U/L 0-220 H Lab Interpretation (test code = Abnormal 25392-1) [facility]CB WITH [id number] 03:45:51 Test Item Value Reference Range Interpretation [...] (test code = 50.9 fL 39.0-49.9 H 30334-6) RDW-CV (test code = 15.7 % 12.0-15.5 H 788-0) PLT (test code = See_Comment H [Automated 777-3) message] The system which generated this result transmit bruna reference range : 166 - 358 10*3/ ?L. The reference range was not u sed to interpret th is result as normal/abnormal . MPV (test code = 10.4 fL 9.5-12.9 81287-8) NRBC/100 WBC (test See_Comment [Automat ed code = 4418646213) message] The system which generated this result transmit bruna reference range : 0.0 - 10.0 /100 WBCs. The reference range was not used to interpret this result as normal/abnormal . NRBC x10^3 (test code See_Comment [Auto mated = 1573838705) message] The system which generated this result transmit bruna reference range : 10*3/?L. The reference range was not used to interpret this result as normal/abnormal . GRAN MAT (NEUT) % 80.7 % (test code = 770-8) IMM GRAN % (test code 0.60 % = 1556347375) LYMPH % (test code = 9.4 % 736-9) MONO % (test code = 6.6 % 5905-5) EOS % (test code = 1.8 % 713-8) BASO % (test code = 0.9 % 706-2) GRAN MAT x10^3(ANC) 13.34 10*3/uL 1.88-7.09 H (test code = 6837092244) IMM GRAN x10^3 (test 0.10 10*3/uL 0.00-0.06 H code = 1157090115) LYMPH x10^3 (test code 1.55 10*3/uL 1.32-3.29 = 731-0) MONO x10^3 (test code 1.09 10*3/uL 0.33-0.92 H = 742-7) EOS x10^3 (test code = 0.29 10*3/uL 0.03-0.39 711-2) BASO x10^3 (test code 0.15 10*3/uL 0.01-0.07 H = 704-7) Lab Interpretation Abnormal (test code = 85597-4) [facility] [id number] 08:26:00 Test Item Value Reference Range Interpretation Comments POC-GLUCOSE METER 175 mg/dL 70-110 H TESTED AT [facility] 6720 (BEAKER) (test code = GIRISH Celaya [facility] 1538) [address] [id number] 07:30:00 Test Item Value Reference Range Interpretation Comments MAGNESIUM (BEAKER) 1.8 mg/dL 1.6-2.6 Specimen slightly (test code = 627) hemolyzed [id number] 07:30:00 Test Item Value Reference Range Interpretation Comments PHOSPHORUS (BEAKER) 3.2 mg/dL 2.3-4.7 Specimen slightly (test code = 604) hemolyzed BASIC METABOLIC [id number] 07:30:00 Test Item Value Reference Range Interpretation [...] PATIEN TS. CBC W/PLT COUNT & AUTO [id number] 06:50:00 Test Item Value Reference Range Interpretation [...] PERCENT (BEAKER) (test code = 2801) POCT-GLUCOSE [id number] 21:15:00 Test Item Value Reference Range Interpretation Comments POC-GLUCOSE METER 246 mg/dL 70-110 H TESTED AT [place] [address] ([facility]) (test code = [facility] 1538) [address] POCT-GLUCOSE [id number] 17:16:00 Test Item Value Reference Range Interpretation Comments POC-GLUCOSE METER 323 mg/dL 70-110 H TESTED AT [place] [place] [address] ([facility]) (test code = [facility] 1538) [address] POCT-GLUCOSE [id number] 13:13:00 Test Item Value Reference Range Interpretation Comments POC-GLUCOSE METER 250 mg/dL 70-110 H TESTED AT [place] [address] ([facility]) (test code = [facility] 1538) [address] POCT-GLUCOSE [id number] 08:26:00 Test Item Value Reference Range Interpretation Comments POC-GLUCOSE METER 261 mg/dL 70-110 H TESTED AT [place] [address] ([facility]) (test code = [facility] 1538) [address] CALCIUM, [id number] 06:39:00 Test Item Value Reference Range Interpretation Comments CALCIUM IONIZED (BEAKER) (test 1.08 mmol/L 1.12-1.27 L code = 698) PH, BLOOD (BEAKER) (test code = 7.47 1810) [id number] 05:53:00 Test Item Value Reference Range Interpretation Comments PHOSPHORUS (BEAKER) (test code = 4.1 mg/dL 2.3-4.7 604) [id number] 05:53:00 Test Item Value Reference Range Interpretation Comments MAGNESIUM (BEAKER) (test code = 1.7 mg/dL 1.6-2.6 627) BASIC METABOLIC [id number] 05:53:00 Test Item Value Reference Range Interpretation [...] PATIEN TS. CBC W/PLT COUNT & AUTO [id number] 05:32:00 Test Item Value Reference Range Interpretation [...] PERCENT (BEAKER) (test code = 2801) POCT-GLUCOSE [id number] 22:58:00 Test Item Value Reference Range Interpretation Comments POC-GLUCOSE METER 390 mg/dL 70-110 H Notified R Jose or (BIN) (test code = Chapo t refused repeat 9335) test/TESTED AT [facility] [address] [place] [address] POCT-GLUCOSE [id number] 21:18:00 Test Item Value Reference Range Interpretation Comments POC-GLUCOSE METER 404 mg/dL 70-110 HH Notified R Jose FELIX/TESTED (BEAKER) (test code = AT [facility] [address] 1538) [place] [address] POCT-GLUCOSE [id number] 17:45:00 Test Item Value Reference Range Interpretation Comments POC-GLUCOSE METER 217 mg/dL 70-110 H TESTED AT [place] [address] ([facility]) (test code = [place] [facility] 1538) [address] POCT-GLUCOSE [id number] 12:07:00 Test Item Value Reference Range Interpretation Comments POC-GLUCOSE METER 209 mg/dL 70-110 H TESTED AT [place] [address] ([facility]) (test code = [place] [facility] 1538) [address] HEMOGLOBIN [id number] 07:58:00 Test Item Value Reference Range Interpretation Comments HEMOGLOBIN A1C (BEAKER) (test code = 5.8 % 4.3-6.1 368) TSH/FREE T4 IF [id number] 05:30:00 Test Item Value Reference Range Interpretation Comments THYROID STIMULATING HORMONE 1.75 uIU/mL 0.35-4.94 (BEAKER) (test code = 772) POCT-GLUCOSE [id number] 05:21:00 Test Item Value Reference Range Interpretation Comments POC-GLUCOSE METER 213 mg/dL 70-110 H TESTED AT [place] [address] ([facility]) (test code = [place] [facility] 1538) [address] [id number] 05:11:00 Test Item Value Reference Range Interpretation Comments PHOSPHORUS (BEAKER) (test code = 4.0 mg/dL 2.3-4.7 604) [id number] 05:11:00 Test Item Value Reference Range Interpretation Comments MAGNESIUM (BEAKER) (test code = 1.7 mg/dL 1.6-2.6 627) BASIC METABOLIC [id number] 05:11:00 Test Item Value Reference Range Interpretation [...] NOT APPLICABLE FOR DIALYSIS PATIEN TS. LIPID [id number] 05:11:00 Test Item Value Reference Range Interpretation [...] Very High >=190CBC W/PLT COUNT & AUTO [id number] 04:48:00 Test Item Value Reference Range Interpretation [...] PERCENT (BEAKER) (test code = 2801) CALCIUM, [id number] 04:13:00 Test Item Value Reference Range Interpretation Comments CALCIUM IONIZED (BEAKER) (test 1.15 mmol/L 1.12-1.27 code = 698) PH, BLOOD (BEAKER) (test code = 7.47 1810) POCT-GLUCOSE [id number] 21:03:00 Test Item Value Reference Range Interpretation Comments POC-GLUCOSE METER 220 mg/dL 70-110 H TESTED AT [facility] 6720 (BEAKER) (test code = [place] 1538) [address] IRON, TIBC, % SAT. (WITHOUT FERRITIN)2016-12-13 19:01:00 Test Item Value Reference Range Interpretation Comments IRON ([facility]) (test code = 547) 23 ug/dL 40-160 L TOTAL IRON BINDING CAPACITY 404 ug/dL 250-450 ([facility]) (test code = 769) IRON % SATURATION (2) ([facility]) 6 % 20-55 L (test code = 2590) POCT-GLUCOSE [id number] 17:23:00 Test Item Value Reference Range Interpretation Comments POC-GLUCOSE METER 371 mg/dL 70-110 H TESTED AT [facility] 6720 ([facility]) (test code = [facility] 1538) [address] POCT-GLUCOSE [id number] 05:33:00 Test Item Value Reference Range Interpretation Comments POC-GLUCOSE METER 227 mg/dL 70-110 H TESTED AT [address] ([facility]) (test code [facility] = 1538) [address] POCT-GLUCOSE [id number] 20:59:00 Test Item Value Reference Range Interpretation Comments POC-GLUCOSE METER 266 mg/dL 70-110 H TESTED AT [address] ([facility]) (test code [facility] = 1538) [address] POCT-GLUCOSE [id number] 20:58:00 Test Item Value Reference Range Interpretation Comments POC-GLUCOSE METER 300 mg/dL 70-110 H TESTED AT [address] ([facility]) (test code [facility] = 1538) [address] POCT-GLUCOSE [id number] 20:58:00 Test Item Value Reference Range Interpretation Comments POC-GLUCOSE METER 177 mg/dL 70-110 H TESTED AT [address] ([facility]) (test code [facility] = 1538) [address] HEMORRHAGE IMAGING, [id number] 13:30:00FINAL REPORT PROCEDURE: HEMORRHAGE STUDY with RBCs CPT CODE: 00829 INDICATION: G astrointestinal Bleeding PROTOCOL: 21.5 mCi [...] MDReport Verified Date/Time: 12/12/2016 13:30:53 Reading Location: [address] [address] Reading Room POCT-GLUCOSE [id number] 11:21:00 Test Item Value Reference Range Interpretation Comments POC-GLUCOSE METER 168 mg/dL 70-110 H TESTED AT [facility] [address] ([facility]) (test code [facility] [place] = 1538) [address] POCT-GLUCOSE [id number] 11:21:00 Test Item Value Reference Range Interpretation Comments POC-GLUCOSE METER 184 mg/dL 70-110 H TESTED AT [facility] [address] ([facility]) (test code [facility] [place] = 1538) [address] BASIC METABOLIC [id number] 05:16:00 Test Item Value Reference Range Interpretation [...] S NOT APPLICABLE FOR DIALYSIS PATIEN TS. [id number] 05:10:00 Test Item Value Reference Range Interpretation Comments MAGNESIUM (BEAKER) (test code = 2.0 mg/dL 1.5-3.0 627) CBC W/PLT COUNT & AUTO [id number] 04:57:00 Test Item Value Reference Range Interpretation [...] L 0.00-0.20 (test code = 417) POCT-GLUCOSE [id number] 17:02:00 Test Item Value Reference Range Interpretation Comments POC-GLUCOSE METER 177 mg/dL 70-110 H TESTED AT [address] (BEAKER) (test code [facility] [place] = 1538) [address] POCT-GLUCOSE [id number] 11:34:00 Test Item Value Reference Range Interpretation Comments POC-GLUCOSE METER 207 mg/dL 70-110 H TESTED AT [facility] [address] (BEAKER) (test code [facility] [place] = 1538) [address] CBC W/PLT COUNT & AUTO [id number] 10:45:00 Test Item Value Reference Range Interpretation [...] code = 2+ moderate 963) BASIC METABOLIC [id number] 09:40:00 Test Item Value Reference Range Interpretation [...] S NOT APPLICABLE FOR DIALYSIS PATIEN TS. [id number] 09:39:00 Test Item Value Reference Range Interpretation Comments PHOSPHORUS (BEAKER) (test code = 3.3 mg/dL 2.5-4.5 604) [id number] 09:34:00 Test Item Value Reference Range Interpretation Comments MAGNESIUM (BEAKER) (test code = 2.1 mg/dL 1.5-3.0 627) POCT-GLUCOSE [id number] 06:01:00 Test Item Value Reference Range Interpretation Comments POC-GLUCOSE METER 171 mg/dL 70-110 H TESTED AT [facility] [address] (BEAKER) (test code [facility] [place] = 1538) [address] POCT-GLUCOSE [id number] 06:00:00 Test Item Value Reference Range Interpretation Comments POC-GLUCOSE METER 148 mg/dL 70-110 H TESTED AT [facility] [address] (BEAKER) (test code [facility] [place] = 1538) [address] URINALYSIS W/ [id number] 05:01:00 Test Item Value Reference Range Interpretation [...] = 2795) RAD, CHEST, 1 VIEW, NON [id number] 21:04:00Reason for exam:->coughShould this be performed at [...] cardiopulmonary disease or interval change. Signed: Sam Sanchez MDReport Verified Date/Time: 12/10/2016 21:04:27 Reading Location: [address] Consult Reading Room OCCULT BLOOD, [id number] 20:24:00 Test Item Value Reference Range Interpretation Comments FECAL OCCULT BLOOD (BEAKER) (test Positive Negative A code = 618) CBC W/PLT COUNT & AUTO [id number] 20:10:00 Test Item Value Reference Range Interpretation [...] RBCS(BEAKER) 1+ few (test code = 478) [id number] 20:07:00 Test Item Value Reference Range Interpretation [...] is 2.5-3.5 for patients with mechanical heart valves.[id number] 20:07:00 Test Item Value Reference Range Interpretation Comments LIPASE (BEAKER) (test code = 749) 37 U/L 6-51 COMPREHENSIVE METABOLIC [id number] 20:06:00 Test Item Value Reference Range Interpretation [...] NOT APPLICABLE FOR DIALYSIS PATIEN TS. BLOOD [id number] 06:00:00 Test Item Value Reference Range Interpretation Comments CULTURE (BEAKER) (test No growth in 5 days code = 1095) BLOOD [id number] 06:00:00 Test Item Value Reference Range Interpretation Comments CULTURE (BEAKER) (test No growth in 5 days code = 1095) POCT-GLUCOSE [id number] 12:19:00 Test Item Value Reference Range Interpretation Comments POC-GLUCOSE METER 132 mg/dL 70-110 H TESTED AT [place] [address] (BEAKER) (test code = [place] [facility] 1538) [address]661 POCT-GLUCOSE [id number] 11:19:00 Test Item Value Reference Range Interpretation Comments POC-GLUCOSE METER 222 mg/dL 70-110 H TESTED AT [place] [address] ([facility]) (test code = [place] [facility] 1538) [address]58 POCT-GLUCOSE [id number] 07:21:00 Test Item Value Reference Range Interpretation Comments POC-GLUCOSE METER 309 mg/dL 70-110 H Notified R Jose FELIX/TESTED (BEAKER) (test code = AT [facility] [address] [facility] 1538) [facility] 7[address] 0 CBC W/PLT COUNT & AUTO [id number] 05:52:00 Test Item Value Reference Range Interpretation [...] PERCENT (BEAKER) (test code = 2801) POCT-GLUCOSE [id number] 21:36:00 Test Item Value Reference Range Interpretation Comments POC-GLUCOSE METER 284 mg/dL 70-110 H TESTED AT [place] [address] ([facility]) (test code = [place] [address]) [address] POCT-GLUCOSE [id number] 17:03:00 Test Item Value Reference Range Interpretation Comments POC-GLUCOSE METER 394 mg/dL 70-110 H Notified Belia Adams MD/TESTED ([facility]) (test code = AT [place] [address]) [facility] 7703 0 POCT-GLUCOSE [id number] 11:47:00 Test Item Value Reference Range Interpretation Comments POC-GLUCOSE METER 332 mg/dL 70-110 H Notified Belia Adams MD/TESTED ([facility]) (test code = AT [place] [address]) [facility] 7703 0 POCT-GLUCOSE [id number] 07:19:00 Test Item Value Reference Range Interpretation Comments POC-GLUCOSE METER 350 mg/dL 70-110 H Notified Belia Jose FELIX/TESTED (BEAKER) (test code = AT [facility] [address] [address]) [facility] 7703 0 BASIC METABOLIC [id number] 05:27:00 Test Item Value Reference Range Interpretation [...] PATIEN TS. CBC W/PLT COUNT & AUTO [id number] 05:05:00 Test Item Value Reference Range Interpretation [...] PERCENT (BEAKER) (test code = 2801) POCT-GLUCOSE [id number] 22:29:00 Test Item Value Reference Range Interpretation Comments POC-GLUCOSE METER 256 mg/dL 70-110 H TESTED AT [place] [address] ([facility]) (test code = [place] [address]) [address] POCT-GLUCOSE [id number] 18:52:00 Test Item Value Reference Range Interpretation Comments POC-GLUCOSE METER 366 mg/dL 70-110 H Notified Belia Adams MD/TESTED ([facility]) (test code = AT [place] [address]) [facility] 7703 0 POCT-GLUCOSE [id number] 12:02:00 Test Item Value Reference Range Interpretation Comments POC-GLUCOSE METER 399 mg/dL 70-110 H Notified Belia Adams MD/TESTED ([facility]) (test code = AT [place] [address]) [facility] 7703 0 POCT-GLUCOSE [id number] 09:06:00 Test Item Value Reference Range Interpretation Comments POC-GLUCOSE METER 236 mg/dL 70-110 H TESTED AT [facility] 6720 (BEAKER) (test code = [place] [facility] 1538) [address] POCT-GLUCOSE [id number] 08:28:00 Test Item Value Reference Range Interpretation Comments POC-GLUCOSE METER 271 mg/dL 70-110 H TESTED AT [facility] 6720 (BEAKER) (test code = [place] [facility] 1538) [address] POCT-GLUCOSE [id number] 06:31:00 Test Item Value Reference Range Interpretation Comments POC-GLUCOSE METER 236 mg/dL 70-110 H TESTED AT [place] [address] (BEAKER) (test code = [place] [facility] 1538) [address] BASIC METABOLIC [id number] 05:14:00 Test Item Value Reference Range Interpretation [...] APPLICABLE FOR DIALYSIS PATIEN TS. HEMOGLOBIN AND [id number] 05:02:00 Test Item Value Reference Range Interpretation Comments HEMOGLOBIN (BEAKER) (test code = 7.9 GM/DL 11.2-15.7 L 410) HEMATOCRIT (BEAKER) (test code = 25.5 % 34.1-44.9 L 411) POCT-GLUCOSE [id number] 22:05:00 Test Item Value Reference Range Interpretation Comments POC-GLUCOSE METER 235 mg/dL 70-110 H TESTED AT [place] [address] ([facility]) (test code = [place] [facility] 1538) [address] POCT-GLUCOSE [id number] 21:56:00 Test Item Value Reference Range Interpretation Comments POC-GLUCOSE METER 274 mg/dL 70-110 H TESTED AT [place] [address] ([facility]) (test code = [facility] Belia [facility] 1538) [address] HEMOGLOBIN AND [id number] 21:00:00 Test Item Value Reference Range Interpretation Comments HEMOGLOBIN (BEAKER) (test code = 7.9 GM/DL 11.2-15.7 L 410) HEMATOCRIT (BEAKER) (test code = 26.1 % 34.1-44.9 L 411) POCT-GLUCOSE [id number] 17:28:00 Test Item Value Reference Range Interpretation Comments POC-GLUCOSE METER 291 mg/dL 70-110 H TESTED AT [place] [address] ([facility]) (test code = [facility] Belia [facility] 1538) [address] VANCOMYCIN LEVEL, [id number] 14:15:00 Test Item Value Reference Range Interpretation Comments VANCOMYCIN TROUGH (BEAKER) (test 18.1 ug/mL 10.0-20.0 code = 522) HEMOGLOBIN AND [id number] 13:53:00 Test Item Value Reference Range Interpretation Comments HEMOGLOBIN (BEAKER) (test code = 8.6 GM/DL 11.2-15.7 L 410) HEMATOCRIT (BEAKER) (test code = 28.0 % 34.1-44.9 L 411) POCT-GLUCOSE [id number] 06:09:00 Test Item Value Reference Range Interpretation Comments POC-GLUCOSE METER 205 mg/dL 70-110 H TESTED AT [place] [address] ([facility]) (test code = [facility] 1538) [address] BASIC METABOLIC [id number] 03:51:00 Test Item Value Reference Range Interpretation [...] PATIEN TS. CBC W/PLT COUNT & AUTO [id number] 03:28:00 Test Item Value Reference Range Interpretation [...] PERCENT (BEAKER) (test code = 2801) POCT-GLUCOSE [id number] 00:46:00 Test Item Value Reference Range Interpretation Comments POC-GLUCOSE METER 331 mg/dL 70-110 H TESTED AT [facility] 67 (BEAKER) (test code = [place] [facility] 1538) [address] HEMOGLOBIN AND [id number] 23:35:00 Test Item Value Reference Range Interpretation Comments HEMOGLOBIN (BEAKER) (test code = 8.0 GM/DL 11.2-15.7 L 410) HEMATOCRIT (BEAKER) (test code = 24.9 % 34.1-44.9 L 411) POCT-GLUCOSE [id number] 18:09:00 Test Item Value Reference Range Interpretation Comments POC-GLUCOSE METER 391 mg/dL 70-110 H Notified R Jose FELIX/TESTED (BEAKER) (test code = AT [facility] [address] [facility] [place] [address] HEMOGLOBIN AND [id number] 16:39:00 Test Item Value Reference Range Interpretation Comments HEMOGLOBIN (BEAKER) (test code = 6.7 GM/DL 11.2-15.7 L 410) HEMATOCRIT (BEAKER) (test code = 22.4 % 34.1-44.9 L 411) POCT-GLUCOSE [id number] 12:39:00 Test Item Value Reference Range Interpretation Comments POC-GLUCOSE METER 238 mg/dL 70-110 H TESTED AT [facility] 6720 (BEAKER) (test code = [place] 1538) [address] HEMOGLOBIN AND [id number] 11:15:00 Test Item Value Reference Range Interpretation Comments HEMOGLOBIN (BEAKER) (test code = 7.5 GM/DL 11.2-15.7 L 410) HEMATOCRIT (BEAKER) (test code = 24.9 % 34.1-44.9 L 411) CBC W/PLT COUNT & AUTO [id number] 07:49:00 Test Item Value Reference Range Interpretation [...] PERCENT (BEAKER) (test code = 2801) POCT-GLUCOSE [id number] 06:45:00 Test Item Value Reference Range Interpretation Comments POC-GLUCOSE METER 205 mg/dL 70-110 H TESTED AT [facility] 6720 (BEAKER) (test code = [place] 1538) [address] LACTIC ACID, VENOUS, WHOLE [id number] 01:37:00 Test Item Value Reference Range Interpretation Comments LACTATE BLOOD VENOUS (2) (BEAKER) 1.9 mmol/L 0.5-2.2 (test code = 2872) Effective 07/31/2015: Units/Reference Range ChangeNew: 0.5-2.2 mmol/L Previous: 5- 20 mg/dLCOMPREHENSIVE METABOLIC [id number] 00:19:00 Test Item Value Reference Range Interpretation [...] S NOT APPLICABLE FOR DIALYSIS PATIEN TS. [id number] 00:17:00 Test Item Value Reference Range Interpretation Comments PHOSPHORUS (BEAKER) (test code = 3.2 mg/dL 2.3-4.7 604) [id number] 00:17:00 Test Item Value Reference Range Interpretation Comments MAGNESIUM (BEAKER) (test code = 2.1 mg/dL 1.6-2.6 627) POCT-GLUCOSE [id number] 00:17:00 Test Item Value Reference Range Interpretation Comments POC-GLUCOSE METER 200 mg/dL 70-110 H TESTED AT [facility] 6720 (BEAKER) (test code = [place] 1538) [address] PROTHROMBIN [id number] 00:07:00 Test Item Value Reference Range Interpretation [...] mechanical heart valves.CBC W/PLT COUNT & AUTO [id number] 00:03:00 Test Item Value Reference Range Interpretation [...] % 0-1 PERCENT (BEAKER) (test code = 4191) POCT-GLUCOSE [id number] 11:41:00 Test Item Value Reference Range Interpretation Comments POC-GLUCOSE METER 259 mg/dL 70-110 H TESTED AT [facility] 6720 (BEAKER) (test code = [place] 1538) [address] [id number] 07:35:00 Test Item Value Reference Range Interpretation Comments PHOSPHORUS (BEAKER) (test code = 3.5 mg/dL 2.3-4.7 604) [id number] 07:35:00 Test Item Value Reference Range Interpretation Comments MAGNESIUM (BEAKER) (test code = 1.6 mg/dL 1.6-2.6 627) BASIC METABOLIC [id number] 07:35:00 Test Item Value Reference Range Interpretation [...] NOT APPLICABLE FOR DIALYSIS PATIEN TS. POCT-GLUCOSE [id number] 07:33:00 Test Item Value Reference Range Interpretation Comments POC-GLUCOSE METER 247 mg/dL 70-110 H TESTED AT [facility] 6720 (BEAKER) (test code = [place] 1538) [address] CBC W/PLT COUNT & AUTO [id number] 06:53:00 Test Item Value Reference Range Interpretation [...] PERCENT (BEAKER) (test code = 2801) POCT-GLUCOSE [id number] 21:09:00 Test Item Value Reference Range Interpretation Comments POC-GLUCOSE METER 398 mg/dL 70-110 H Patient on insulin (BEAKER) (test code = Drip/T ESTED AT [facility] 1538) [address] [place] [address] POCT-GLUCOSE [id number] 17:42:00 Test Item Value Reference Range Interpretation Comments POC-GLUCOSE METER 341 mg/dL 70-110 H TESTED AT [facility] 67 ([facility]) (test code = [facility] 1538) [address] POCT-GLUCOSE [id number] 12:03:00 Test Item Value Reference Range Interpretation Comments POC-GLUCOSE METER 285 mg/dL 70-110 H TESTED AT [facility] 67 ([facility]) (test code = [facility] 1538) [address] POCT-GLUCOSE [id number] 06:11:00 Test Item Value Reference Range Interpretation Comments POC-GLUCOSE METER 335 mg/dL 70-110 H TESTED AT [facility] 6720 ([facility]) (test code = [facility] 1538) [address] [id number] 05:12:00 Test Item Value Reference Range Interpretation Comments PHOSPHORUS (BEAKER) (test code = 4.0 mg/dL 2.3-4.7 604) [id number] 05:12:00 Test Item Value Reference Range Interpretation Comments MAGNESIUM (BEAKER) (test code = 1.5 mg/dL 1.6-2.6 L 627) BASIC METABOLIC [id number] 05:12:00 Test Item Value Reference Range Interpretation [...] PATIEN TS. CBC W/PLT COUNT & AUTO [id number] 04:40:00 Test Item Value Reference Range Interpretation [...] PERCENT (BEAKER) (test code = 2801) POCT-GLUCOSE [id number] 21:37:00 Test Item Value Reference Range Interpretation Comments POC-GLUCOSE METER 271 mg/dL 70-110 H TESTED AT [place] [address] ([facility]) (test code = G[facility] Celaya [facility] 1538) [address] POCT-GLUCOSE [id number] 17:40:00 Test Item Value Reference Range Interpretation Comments POC-GLUCOSE METER 273 mg/dL 70-110 H TESTED AT [place] [address] ([facility]) (test code = [place] Cel[place] [facility] 1538) [address] POCT-GLUCOSE [id number] 12:52:00 Test Item Value Reference Range Interpretation Comments POC-GLUCOSE METER 303 mg/dL 70-110 H TESTED AT [place] [address] ([facility] [place]) (test code = GIRISH Celaya [facility] 1538) [address]27 POCT-GLUCOSE [id number] 08:44:00 Test Item Value Reference Range Interpretation Comments POC-GLUCOSE METER 306 mg/dL 70-110 H Notified R Jose FELIX/TESTED (BEAKER) (test code = AT [address] 1538) [facility] [address] 0 [id number] 04:53:00 Test Item Value Reference Range Interpretation Comments PHOSPHORUS (BEAKER) (test code = 4.0 mg/dL 2.3-4.7 604) [id number] 04:53:00 Test Item Value Reference Range Interpretation Comments MAGNESIUM (BEAKER) (test code = 1.7 mg/dL 1.6-2.6 627) BASIC METABOLIC [id number] 04:53:00 Test Item Value Reference Range Interpretation [...] PATIEN TS. CBC W/PLT COUNT & AUTO [id number] 04:38:00 Test Item Value Reference Range Interpretation [...] PERCENT (BEAKER) (test code = 2801) POCT-GLUCOSE [id number] 21:24:00 Test Item Value Reference Range Interpretation Comments POC-GLUCOSE METER 307 mg/dL 70-110 H Notified R Jose FELIX/TESTED ([facility]) (test code = AT [place] [address]) [facility] 770 0 POCT-GLUCOSE [id number] 17:52:00 Test Item Value Reference Range Interpretation Comments POC-GLUCOSE METER 224 mg/dL 70-110 H TESTED AT [place] [address] ([facility]) (test code = GIRISH Celaya [place] [address]) [id number] POCT-GLUCOSE [id number] 12:46:00 Test Item Value Reference Range Interpretation Comments POC-GLUCOSE METER 250 mg/dL 70-110 H TESTED AT [place] [address] ([facility]) (test code = GIRISH Celaya [place] [address]) [address] POCT-GLUCOSE [id number] 08:44:00 Test Item Value Reference Range Interpretation Comments POC-GLUCOSE METER 319 mg/dL 70-110 H Notified R Jose MD/TESTED ([facility]) (test code = AT [place] [address]) [place] [address] 0 [id number] 05:35:00 Test Item Value Reference Range Interpretation Comments PHOSPHORUS (BEAKER) (test code = 3.8 mg/dL 2.3-4.7 604) [id number] 05:35:00 Test Item Value Reference Range Interpretation Comments MAGNESIUM (BEAKER) (test code = 1.8 mg/dL 1.6-2.6 627) BASIC METABOLIC [id number] 05:35:00 Test Item Value Reference Range Interpretation [...] PATIEN TS. CBC W/PLT COUNT & AUTO [id number] 04:52:00 Test Item Value Reference Range Interpretation [...] PERCENT (BEAKER) (test code = 2801) POCT-GLUCOSE [id number] 21:33:00 Test Item Value Reference Range Interpretation Comments POC-GLUCOSE METER 195 mg/dL 70-110 H TESTED AT [facility] [address] ([facility] [place]) (test code = [address] [place] 15[address]) [id number] POCT-GLUCOSE [id number] 20:09:00 Test Item Value Reference Range Interpretation Comments POC-GLUCOSE METER 268 mg/dL 70-110 H TESTED AT [facility] [address] (BEAKER) (test code = [address] 1538) [id number] POCT-GLUCOSE [id number] 17:13:00 Test Item Value Reference Range Interpretation Comments POC-GLUCOSE METER 400 mg/dL 70-110 HH TESTED AT [place] [address] (BEAKER) (test code = [place] [facility] 1538) [id number] POCT-GLUCOSE [id number] 10:55:00 Test Item Value Reference Range Interpretation Comments POC-GLUCOSE METER 216 mg/dL 70-110 H TESTED AT [place] [address] (BEAKER) (test code = [place] [facility] 1538) [id number] POCT-GLUCOSE [id number] 07:07:00 Test Item Value Reference Range Interpretation Comments POC-GLUCOSE METER 240 mg/dL 70-110 H TESTED AT [place] [address] (BEAKER) (test code = [place] [facility] 1538) [id number] POCT-GLUCOSE [id number] 06:13:00 Test Item Value Reference Range Interpretation Comments POC-GLUCOSE METER 249 mg/dL 70-110 H TESTED AT [place] [address] (BEAKER) (test code = [place] [facility] 1538) [address] [id number] 05:36:00 Test Item Value Reference Range Interpretation Comments PHOSPHORUS (BEAKER) (test code = 3.5 mg/dL 2.3-4.7 604) [id number] 05:36:00 Test Item Value Reference Range Interpretation Comments MAGNESIUM (BEAKER) (test code = 1.7 mg/dL 1.6-2.6 627) BASIC METABOLIC [id number] 05:36:00 Test Item Value Reference Range Interpretation [...] PATIEN TS. CBC W/PLT COUNT & AUTO [id number] 05:19:00 Test Item Value Reference Range Interpretation [...] (BEAKER) (test code = 2801) COMPREHENSIVE METABOLIC [id number] 23:04:00 Test Item Value Reference Range Interpretation [...] NOT APPLICABLE FOR DIALYSIS PATIEN TS. PROTHROMBIN [id number] 22:57:00 Test Item Value Reference Range Interpretation Comments PROTIME (BEAKER) (test code = 14.1 seconds 11.7-14.7 759) INR (BEAKER) (test code = 370) 1.1 <=5.9 RECOMMENDED COUMADIN/WARFARIN INR THERAPY RANGESSTANDARD DOSE: 2.0 - 3.0 Includes: PROPHYLAXIS for venous thrombosis, systemic embolization; TREATMENT for venous thrombosis and/or pulmonary embolus.HIGH RISK: Target INR is 2.5-3.5 for patients with mechanical heart valves.CBC W/PLT COUNT & AUTO [id number] 22:51:00 Test Item Value Reference Range Interpretation [...] SofiaPOC, COVID 19 Antigen + Flu by Pam
--- NOTE | 2022-06-03 12:48 | RAD REPORT ---
EXAM DESCRIPTION: RADChest Single View06/03/2022 12:42 pm CLINICAL HISTORY: dizzines COMPARISON: Chest Single View dated 01/24/2022; Chest Single View dated 01/11/2022; Chest Single Vie w dated 04/09/2021; Chest Single View dated 06/17/2017 TECHNIQUE: Portable AP view of the chest. FINDINGS: The lungs are clear. Mild hyperinflation. No pneumothorax or effusion. The cardiomediastin al contours are unremarkable. Spinal stimulator electrodes in place. IMPRESSION: No acute cardiopulmonary process.
--- NOTE | 2022-06-03 12:48 | RAD REPORT ---
EXAM DESCRIPTION: RAD - Hip Left 2 View - 06/03/2022 12:42 pm CLINICAL HISTORY: Pain COMPARISON: None. FINDINGS: Two views of the left hip. AP and frogleg views of the left hip were obtained. There is no fracture or dislocation. Mild degener ative changes of the left hip. No acute or destructive bony process seen. IMPRESSION: Negative left hip examination for acute findings.
[2022-06-03] MEDS ORDERED: MECLIZINE HCL 12.5 MG TAB ONE (12:52)
[2022-06-03] MEDS ORDERED: PROMETHAZINE INJ 25 MG/ML AMP ONE (12:52)
--- NOTE | 2022-06-03 12:53 | RAD REPORT ---
EXAM DESCRIPTION: CT - Head Brain Wo Cont - 06/03/2022 12:28 pm CLINICAL HISTORY: DIZZINESS COMPARISON: No comparisons TECHNIQUE: Noncontrast head CT images ad were obtained without IV contrast. Multiplanar reformats we re generated and reviewed. All CT scans are performed using dose optimization technique as appropriate and may include automated exposure control or mA/KV adjustment according to patient size. FINDINGS: No intracranial hemorrhage, mass, or edema. Midline structures are unremarkable. Normal ventricular caliber for age. Reece-white matter differentiation is preserved, without evidence of acute infarct. No abnormal extra- axial fluid collections. Mastoid air cells and visualized portions of the paranasal sinuses are clear. No acute bony findings. IMPRESSION: No evidence of an acute intracranial process.
[2022-06-03 13:14] LABS: Absolute Lymphocytes (CBC) 1.2 K/uL (0.7-4.9); Hematocrit 41.5 % (36.0-45.0); Lymphocytes % 14.4 % (15.3-44.8); MCV 88.5 fL (80-100); MPV 8.8 fL (7.6-11.3); RBC Red Blood Cell Count 4.69 M/uL (3.86-4.86)
[2022-06-03 13:32] LABS: Potassium 4.1 mmol/L (3.5-5.1)
[2022-06-03] MEDS ORDERED: ASPIRIN 81 MG CHEWABLE TABLET ONE (14:44)
[2022-06-03] MEDS ORDERED: Ringers Lactate 1,000 ML IV ONE (14:44)
[2022-06-03 14:59] LABS: Anisocytosis 1+; Blood Morphology Comment NOTED (NOT SEEN); Platelet Estimate ADEQ; White Blood Cell Scan OK (OK)
[2022-06-03] MEDS ORDERED: ACETAMINOPHEN 325 MG TABLET PO PRN (15:20)
[2022-06-03] MEDS ORDERED: ONDANSETRON 4 MG/2 ML VIAL IV PRN (15:23)
--- NOTE | 2022-06-03 15:45 | P.HP ---
Certification for Inpatient Patient admitted to: Observation With expected LOS: <2 Midnights Patient will require the following post-hospital care: None Practitioner: I am a practitioner with admitting privileges, knowledge of patient current condition, hospital course, and medical plan of care. Services: Services provided to patient in accordance with Admission requirements found in Title 42 Section 412.3 of the Code of Federal Regulations Patient History Date of Service: 06/03/22 Reason for admission: Dizziness and vertigo History of Present Illness: Patient is a 76-year-old female with a past medical history significant for DM 2, GERD, PAD, COPD, nicotine dependence who presents with complaint of dizziness and vertigo onset yesterday. Patient reported associated signs and symptoms of difficulty walking. Loss of balance and chills. Patient denies any other signs and symptoms. Symptoms are aggravated or relieved by nothing. Patient decided to present to the hospital due to worsening symptoms. Allergies atorvastatin [From Lipitor] Allergy (Verified 01/04/22 23:16) Unknown codeine Allergy (Verified 01/04/22 23:16) Unknown glimepiride Allergy (Verified 01/04/22 23:16) Unknown glipizide Allergy (Verified 01/04/22 23:16) Unknown Iodinated Contrast Media [Iodinated Contrast Media - Oral and] Allergy (Verified 01/04/22 23:16) Unknown Penicillins Allergy (Verified 01/04/22 23:16) Unknown pioglitazone [From Actos] Allergy (Verified 01/04/22 23:16) Unknown rosuvastatin [From Crestor] Allergy (Verified 01/04/22 23:16) Unknown sitagliptin [From Januvia] Allergy (Verified 01/04/22 23:16) Unknown Sulfa (Sulfonamide Antibiotics) Allergy (Verified 01/04/22 23:16) Unknown sulfamethoxazole [From Bactrim] Allergy (Verified 01/04/22 23:16) Unknown trimethoprim [From Bactrim] Allergy (Verified 01/04/22 23:16) Unknown Clindamycin Allergy (Uncoded 12/12/21 08:04) Unknown Darvocet-N Allergy (Uncoded 12/12/21 08:04) Unknown eryt Allergy (Uncoded 12/12/21 08:04) Unknown metformin Allergy (Uncoded 12/12/21 08:04) Unknown morphine Allergy (Uncoded 12/12/21 08:04) Unknown Wellbutr Allergy (Uncoded 12/12/21 08:04) Unknown Home Medications: Duloxetine [Cymbalta *] 60 mg PO DAILY 01/05/22 Insulin 70/30 NPH/Reg Human [Novolin 70/30*] 15 unit SQ BID 01/05/22 Metoprolol Succinate [Toprol Xl*] 25 mg PO DAILY 01/05/22 Pregabalin [Lyrica*] 50 mg PO BID 01/05/22 Pantoprazole [Protonix Tab*] 40 mg PO BID 6AM 6PM #60 tab 01/06/22 - Past Medical/Surgical History Diabetic: Yes -: SBO -: AVM -: angiodysplasia -: ischemic bowel disease -: celiac artherial stenosis -: IBS -: IDDM -: COPD -: PAD -: Chronic mesenteric ischemia -: GERD -: Esophageal pulmonary emboli -: Abdominal/Stomach surgery -: tonsillectomy -: cholecystectomy - Social History Smoking Status: Current every day smoker Counseled patient to stop smoking for: less than 10 minutes Smoking therapy provided: Yes Patient receptive to therapy: Yes Alcohol use: No CD- Drugs: No Caffeine use: No Place of Residence: Home Review of Systems General: Chills Eyes: Unremarkable ENT: Unremarkable Respiratory: Unremarkable Cardiovascular: Unremarkable Gastrointestinal: Unremarkable Genitourinary: Unremarkable Musculoskeletal: Other (Difficulty walking, loss of balance ) Integumentary: Unremarkable Neurological: Other (Dizziness, vertigo, difficulty walking, loss of balance) Physical Examination - Physical Exam General: Alert, In no apparent distress, Oriented x3, Cooperative HEENT: Atraumatic, PERRLA, Mucous membr. moist/pink, EOMI, Sclerae nonicteric Neck: Supple, 2+ carotid pulse no bruit, No LAD, Without JVD or thyroid abnormality Respiratory: Clear to auscultation bilaterally, Normal air movement Cardiovascular: No edema, Regular rate/rhythm, Normal S1 S2 Gastrointestinal: Normal bowel sounds, Non-distended, No tenderness Musculoskeletal: No clubbing, No swelling, No tenderness Integumentary: No rashes, No breakdown, No significant lesion Neurological: Normal speech, Normal tone, Normal affect, Abnormal gait Lymphatics: No axilla or inguinal lymphadenopathy - Studies Laboratory Data (last 24 hrs) 06/03/22 13:00: WBC 8.40, Hgb 13.8, Hct 41.5, Plt Count 270 06/03/22 13:00: Sodium 137, Potassium 4.1, BUN 15, Creatinine 1.16 H, Glucose 173 H Assessment and Plan - Plan --Dizziness\vertigo. CT head unremarkable for any acute intracranial abnormality. Neurology consulted. Neurologist recommended a CT brain scan in 24 hours. Echocardiogram and carotid Doppler pending. We will get orthostatic vital signs. Fall precautions. We will await further recommendation from neurologist. --Difficulty walking. CT head unremarkable for any acute intracranial abnormality. PT eval and treat. --DM2. BS monitoring with sliding scale insulin. --GERD. Continue Protonix. --History of PAD. Continue aspirin. --COPD. Stable. Continue supportive care. --Nicotine dependence. Patient counseled on tobacco cessation. Patient placed on nicotine patch. --DVT prophylaxis with Lovenox subQ. Discharge Plan: Home Plan to discharge in: 48 Hours - Advance Directives Does patient have a Living Will: No Does patient have a Durable POA for Healthcare: No - Code Status/Comfort Care Code Status Assessed: Yes Physician Review: Patient Assessed, Agree with Above Assessment and Plan Critical Care: No
[2022-06-03] MEDS: ENOXAPARIN 40 MG/0.4 ML SQ SCH (16:00)
[2022-06-03 16:04] LABS: Magnesium 2.1 mg/dL (1.6-2.4); Phosphorus 3.2 mg/dL (2.5-4.9); Thyroid Stimulating Hormone 1.86 uIU/mL (0.358-3.740)
[2022-06-03] MEDS: INSULIN -REGULAR HUMAN 50 UNIT/0.5 ML ML SQ SCH ×2 (16:30→20:10)
[2022-06-03] MEDS ORDERED: ENOXAPARIN 40 MG/0.4 ML SQ ONE (16:42)
[2022-06-03] MEDS: NICOTINE 21 MG/PAT TD SCH (16:44)
[2022-06-03 17:42] LABS: SARS-CoV-2 Antigen Rapid Res Negative (Negative)
--- NOTE | 2022-06-03 20:57 | RAD REPORT ---
EXAM DESCRIPTION: US - CP - 06/03/2022 7:52 pm CLINICAL HISTORY: Persistent dizziness COMPARISON: Head C Spine Mpr Wo Con dated 06/17/2017 TECHNIQUE: Real-time sonographic grayscale, color duplex, and spectral wave Doppler evaluation of [facility] carotid systems was performed. FINDINGS: Normal high resistance waveforms are noted in both external carotid arteries. The common c arotid arteries and internal carotid arteries show normal low resistance waveforms. [id number] smooth calcified echogenic plaque on the right, and moderate calcified irregular corrina que along the left carotid bulb. Peak systolic velocity less than 125 cm/ sec bilaterally. ICA/CCA p eak systolic ratios less than 2.0 bilaterally. Antegrade flow seen in both vertebral arteries. IMPRESSION: Up to moderate calcified atherosclerotic changes noted at the carotid bulbs bilaterally, denser on the left. Less than 50% stenosis of the ICAs bilaterally. Preserved antegrade vertebral artery flow bilaterally .
[2022-06-04 02:24] LABS: Absolute Lymphocytes (CBC) 1.3 K/uL (0.7-4.9); Hematocrit 36.5 % (36.0-45.0); Lymphocytes % 16.3 % (15.3-44.8); MCV 88.4 fL (80-100); MPV 8.5 fL (7.6-11.3); RBC Red Blood Cell Count 4.13 M/uL (3.86-4.86)
[2022-06-04 02:34] LABS: Potassium 4.2 mmol/L (3.5-5.1)
[2022-06-04] MEDS ORDERED: NICOTINE 21 MG/PAT TD ONE (08:12)
[2022-06-04] MEDS ORDERED: ASPIRIN EC 81 MG TAB PO ONE (08:12)
[2022-06-04] MEDS ORDERED: ENOXAPARIN 40 MG/0.4 ML SQ ONE (08:13)
[2022-06-04] MEDS ORDERED: INSULIN -REGULAR HUMAN 50 UNIT/0.5 ML ML ONE ×2 (08:28→12:44)
[2022-06-04] MEDS: INSULIN -REGULAR HUMAN 50 UNIT/0.5 ML ML SQ SCH ×3 (08:30→16:30)
[2022-06-04] MEDS: ENOXAPARIN 40 MG/0.4 ML SQ SCH (08:40)
[2022-06-04] MEDS: NICOTINE 21 MG/PAT TD SCH (08:40)
[2022-06-04] MEDS ORDERED: ASPIRIN 81 MG CHEWABLE TABLET PO SCH (09:00)
[2022-06-04] MEDS ORDERED: GLUCAGON 1 MG/VIAL IM PRN (11:40)
[2022-06-04] MEDS ORDERED: D50W 25 GM/50 ML SYRINGE IV PRN (11:40)
[2022-06-04] MEDS ORDERED: METOPROLOL XL 50 MG TAB PO SCH (11:42)
[2022-06-04] MEDS ORDERED: D10W 125 ML IV PRN (11:45)
[2022-06-04] MEDS ORDERED: METOPROLOL XL 50 MG TAB PO ONE (11:56)
--- NOTE | 2022-06-04 12:44 | RAD REPORT ---
EXAM DESCRIPTION: CT - Head Brain Wo Cont - 06/04/2022 12:27 pm CLINICAL HISTORY: Dizziness Vertigo COMPARISON: Head Brain Wo Cont dated 06/03/2022 TECHNIQUE: Noncontrast head CT images ad were obtained without IV contrast. Multiplanar reformats we re generated and reviewed. All CT scans are performed using dose optimization technique as appropriate and may include automated exposure control or mA/KV adjustment according to patient size. FINDINGS: No intracranial hemorrhage, mass, or edema. Midline structures are unremarkable. Normal ventricular caliber for age. Reece-white matter differentiation is preserved, without evidence of acute infarct. No abnormal extra- axial fluid collections. Mastoid air cells and visualized portions of the paranasal sinuses are clear. No acute bony findings. IMPRESSION: No evidence of an acute intracranial process.
[2022-06-04 15:01] VITALS: BMI 25.7
[2022-06-04 15:13] LABS: Urine Blood Negative (Negative); Urine Glucose Trace (Negative); Urine Protein Negative (Negative); Urine pH 7.5 (5.0-7.0)
--- NOTE | 2022-06-04 16:23 | EKG ---
Test Date: 2022-06-03 Test Time: 13:26:33 Card Reader: ISAIAH MEASUREMENT RESULTS: Intervals: Rate: 84 IL: 204 QRSD: 86 QT: 380 QTc: 449 [place]: P: -4 IL: 204 QRS: -57 T: 42 INTERPRETIVE STATEMENTS: Normal sinus rhythm Left axis deviation Cannot rule out Inferior infarct, age undetermined Anteroseptal infarct, age undetermined Abnormal ECG Compared to ECG 01/24/2022 22:51:00 Left-axis deviation now present First degree AV block no longer present Myocardial infarct finding still present Electronically Signed On 06-04-22 16:20:10 PRODUCT SAFETY ADMINISTRATOR by Beltran Patel
[2022-06-04 17:06] VITALS: BP 158/61; TEMP 97.8
--- NOTE | 2022-06-04 17:29 | P.DS ---
Admission Date: 06/03/22 Discharge Date: 06/04/22 Disposition: ROUTINE DISCHARGE Discharge Condition: FAIR Reason for Admission: Dizziness and vertigo - Problems (1) Dizziness Status: Acute (2) Orthostasis Status: Acute (3) History of arteriovenous malformation (AVM) Status: Acute Brief History of Present Illness: Patient is a 76-year-old female with a past medical history significant for DM 2, GERD, PAD, COPD, nicotine dependence who presented to the ED with complaint of dizziness and vertigo.. Patient reported associated signs and symptoms of difficulty walking. Loss of balance and chills. Head CT done in the emergency department was negative. Her blood pressure elevated. Patient was hospitalized for further evaluation and management. Hospital Course: Patient placed under observation on the medical floor. Echocardiogram and carotid Doppler done. Carotid Doppler was unremarkable. Echocardiogram is pending. Patient was ambulatory during the hospital stay. She was seen and evaluated by neurology-Dr. Aparicio. MRI of the brain was recommended but patient has a spinal stimulator and the MRI could not be performed. Neurology recommended repeat CT head which is negative. Patient's symptoms consistent with TIA. Neurology. She is therefore started on aspirin and Plavix and Lipitor. Patient also noted to be orthostatic but hypertensive. Patient need good systolic blood pressure control given possible TIA. She reports persistently elevated blood pressure at home with systolic blood pressure in the 170s. Her Toprol-XL dose is increased from 25 mg daily to 50 mg daily. Orthostatic precautions taught. Also recommended compression stockings and abdominal binder to help reduce orthostatic hypotension. She was seen by PT and noted to have mild gait disturbance. Patient deemed clinically stable for discharge. She is discharged with home health for PT. Vital Signs/Physical Exam: Temp Pulse Resp BP Pulse Ox 97.8 F 78 16 158/61 H 95 06/04/22 17:05 06/04/22 17:05 06/04/22 17:05 06/04/22 17:05 06/04/22 17:05 General: Alert, Oriented x3 HEENT: Mucous membr. moist/pink Neck: Supple, JVD not distended Respiratory: Clear to auscultation bilaterally, Normal air movement Cardiovascular: No edema, Regular rate/rhythm, Normal S1 S2 Gastrointestinal: Normal bowel sounds, Soft and benign, Non-distended, No tenderness Musculoskeletal: No swelling Integumentary: No rashes Neurological: Normal speech, Normal strength at 5/5 x4 extr, Cranial nerves 3-12 intact Laboratory Data at Discharge: WBC 8.20 K/uL (4.3-10.9) 06/04/22 02:02 Hgb 12.2 g/dL (12.0-15.0) D 06/04/22 02:02 Hct 36.5 % (36.0-45.0) 06/04/22 02:02 Plt Count 260 K/uL (152-406) 06/04/22 02:02 Sodium 142 mmol/L (136-145) D 06/04/22 02:02 Potassium 4.2 mmol/L (3.5-5.1) 06/04/22 02:02 BUN 23 mg/dL (7-18) H 06/04/22 02:02 Creatinine 1.35 mg/dL (0.55-1.02) H 06/04/22 02:02 Glucose 193 mg/dL (74-106) H 06/04/22 02:02 Phosphorus 3.2 mg/dL (2.5-4.9) 06/03/22 13:00 Magnesium 2.1 mg/dL (1.6-2.4) 06/03/22 13:00 Home Medications: Duloxetine [Cymbalta *] 60 mg PO DAILY 01/05/22 Insulin 70/30 NPH/Reg Human [Novolin 70/30*] 12 unit SQ BID 01/05/22 Ferrous Sulfate 325 mg PO DAILY 06/03/22 Magnesium Oxide 400 mg PO DAILY 06/03/22 Omeprazole [Prilosec] 40 mg PO DAILY 06/03/22 Metoprolol Succinate [Toprol Xl*] 50 mg PO [id number] #30 tab 06/04/22 Pantoprazole [Protonix Tab*] 40 mg PO DAILY #30 tab 06/04/22 New Medications: Pantoprazole [Protonix Tab*] 40 mg PO DAILY #30 tab Metoprolol Succinate [Toprol Xl*] 50 mg PO [id number] #30 tab Physician Discharge Instructions: Your blood pressure drops when you change position from lying to standing. You may have to sit for 2 minutes before standing if you are changing position from lying to standing. Please wear compression stockings and abdominal binder to help reduce the drop in your blood pressure with change in position. Return to the ED or see your PCP if you continue to experience dizziness. Monitor your blood pressure before you take your blood pressure medications. Do not take your blood pressure medications if your systolic blood pressure is 100. Diet: AHA Activity: Ad darrel Followup: Isra Rondon, [Primary Care Provider] - 1-2 Weeks
[2022-06-04 17:34] VITALS: O2SAT 100
--- NOTE | 2022-06-04 20:05 | CON ---
Reason For Consultation: Dizziness, vertigo, possible stroke. History Of Present Illness: Ms. Salazar is a 76-year-old patient with past medical history of insuli n-dependent diabetes mellitus and multiple other medical problems who came to [facility] wit h sudden onset of vertiginous type symptoms with nausea. Denied any chip vomiting and was unable to ambulate steadily and had lost balance with some chills. She came to [facility] not within the window for TNKs. She had waited the night to see if symptoms improved and then eventually came to [facility]. Her head CT scan was negative for any acute ischemic hemorrhagic change. [place] was out of the window for TNKs. She was admitted for stroke workup. 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 She is unable to get an MRI. The patie nt said that her symptoms really already resolved back to normal when she was at [facility]. She did receive aspirin 81 mg daily and Lovenox for DVT prophylaxis. Interval CT scan 24 hours lat er was also unremarkable for any acute ischemic or hemorrhagic findings. At that point, the patient' s symptoms, per her, had resolved back to normal. Laboratory Studies: She had a normal complete blood count with differential. Chemistries showed sli ghtly elevated chloride 109, was otherwise unremarkable. She has renal insufficiency with creatinine 1.35. Blood glucose ranged from 136 to 284, calcium 9.2, TSH 1.86. Her cholesterol panel is pendin g. Urinalysis showed trace esterase and COVID testing is negative. Chest x-ray showed no acute card iopulmonary process and carotid artery ultrasound showed moderate calcified arthrosclerotic changes i n the carotid bulbs bilaterally, more on the left with less than 50% stenosis in the internal carotid arteries bilaterally. There is preserved anterograde vertebral artery flow bilaterally. Past Medical History: Small bowel obstruction and arteriovenous malformation, where she says she has had the GI bleed. She has angiodysplasia, ischemic bowel disease, celiac arterial stenosis, insulin -dependent diabetes mellitus, COPD, peripheral artery disease, chronic mesenteric ischemia, and gastr oesophageal reflux. Past Surgical History: Abdominal and stomach surgery, tonsillectomy, cholecystectomy. Medications: At home are Cymbalta 60 mg daily, insulin NPH 70/30 at 15 units twice daily, Toprol 25 mg daily, Lyrica 50 mg twice daily, Protonix 40 mg twice daily. Allergies: ATORVASTATIN, CODEINE, GLIMEPIRIDE, GLIPIZIDE, IODINE, PENICILLIN, ROSUVASTATIN, __, ACTOS, SULFA TRIMETHOPRIM, CLINDAMYCIN, DARVOCET, METFORMIN, MORPHINE, AND WELLBUTRIN. Social History: The patient smokes cigarettes daily. Occasional alcohol use. No IV drug use. Review of Systems: As noted, she did have some chills and vertigo with nausea. No myalgias or arthralgias. No rash, he adache, or weight change. No psychiatric issues. No gastrointestinal issues. Physical Examination: Vital Signs: Blood pressure 158/61, pulse 78, respiratory rate 16, temperature 97.8, and oxygen satu ration 95%. Weight 185 pounds. BMI 25.1. General: Ms. Salazar is lying in bed. She is in no significant distress. HEENT: She is normocephalic, atraumatic. Sclerae anicteric. Oropharynx is pink and moist. Neck: Supple. Chest: Clear. Heart: Regular. Extremities: No edema or cyanosis. Neurologic: She is alert and oriented to situation, place, and person. She has no cranial nerve def icits. She has no focal motor, sensory, or coordination deficits. Reflexes are symmetric. Assessment: Ms. Salazar is a 76-year-old patient with possible transient ischemic attack. She does have risk factors of smoking, insulin-dependent diabetes mellitus, hypertension, and lipid panel is p ending and likely as well dyslipidemia. Plan: 1.If the patient is able to withstand, an aspirin 81 mg daily. 2.Likely it would be helpful for statin, either low or high dose depending on the LDL. 3.Folic acid 1 mg daily and continue management of her comorbid issues as listed. 4.After discharge, she may follow up in Dr. Aparicio's clinic 1 month later. SEAN/THERESA Voice ID: [id number] Report ID: [id number]
[2022-06-04] MEDS ORDERED: INSULIN 70/30 100 UNITS/ML SQ SCH (21:00)
[2022-06-05] MEDS ORDERED: PANTOPRAZOLE 40MG TABLET PO SCH (09:00)
[2022-06-05] MEDS ORDERED: MAGNESIUM OXIDE 400 MG TAB PO SCH (09:00)
[2022-06-05] MEDS ORDERED: HOME MED 1 EA UNK (Omeprazole [Prilosec] 40 MG Capsule.Dr) PO SCH (09:00)
[2022-06-05] MEDS ORDERED: FERROUS SULFATE 325 MG TAB PO SCH (09:00)
== END 2022-06-04 18:57 | disposition home or self-care (01) ==
LOC: ER 11:48 → ERHOLD 15:18 → 4TH 06-04 15:31
PROVIDERS: ADMIT Internal Medicine; ATTEND Internal Medicine
DX: R42 Dizziness and giddiness (principal); I95.1 Orthostatic hypotension; E11.9 Type 2 diabetes mellitus without complications; K21.9 Gastro-esophageal reflux disease without esophagitis; J44.9 Chronic obstructive pulmonary disease, unspecified; F17.200 Nicotine dependence, unspecified, uncomplicated; I73.9 Peripheral vascular disease, unspecified; E11.8 Type 2 diabetes mellitus with unspecified complications; I10 Essential (primary) hypertension; Q27.30 Arteriovenous malformation, site unspecified; Z79.4 Long term (current) use of insulin; R26.2 Difficulty in walking, not elsewhere classified
CPT/HCPCS: 93005; 85025 ×2; 80048 ×2; 36415; 83735; 84100; 80061; 82947 ×5; 84443; 81003; 84484; 84439; 70450 ×2; 71045; 73502; 93880; 97116; 97161; 97530; 96374; 99285; 87811; J2550; J1815 ×2; J8597; J1650 ×2; J7120

== ENCOUNTER 2022-07-27 15:26 | Emergency (ER) | payer MEDICARE ==
--- OUTSIDE RECORDS SUMMARY | 2022-07-27 15:49 | XMS REPORT | Continuity of Care Document ---
:1945 Author Organization [facility] t Address [address] [place] [place] [address] Care Team Providers Name Role Phone SHARPLESS Primary Care Physician Unavailable Isra Rondon Attending Clinician Unavailable PEARL BROOKS Attending Clinician Unavailable uSki FELIX, Chinmay Beth Attending Clinician LIDIA NAZARIO Attending Clinician Unavailable Darling Moran MD Attending Clinician DARLING MORAN Attending Clinician Unavailable Gricel Little MD Attending Clinician Chinmay Cohn MD Attending Clinician Carol Heredia Attending Clinician Ayaan Christian MD Attending Clinician Ariel Roland MD Attending Clinician ARIEL ROLAND Attending Clinician Unavailable PEARL BROOKS Attending Clinician Unavailable Litzy Gerardo MD Attending Clinician Itremainee_S Attending Clinician Unavailable MORALES FITCH Attending Clinician Unavailable Little GREGORY, Morales F Attending Clinician Lidia Nazario MD Attending Clinician Po, [facility] Attending Clinician Unavailable Chance Paul MD Attending Clinician CHANCE PAUL Attending Clinician Unavailable Doctor Unassigned, [place] Attending Clinician Unavailable LIBRADO ABRAMS Attending Clinician [...] Attending Clinician INDIGO JIMÉNEZ Attending Clinician Unavailable [facility], [facility] Pob I Attending Clinician Unavailable Simi Lopez Attending Clinician [facility] Attending Clinician Unavailable JOSE NGUYEN Attending Clinician Unavailable Morena Jules Attending Clinician MORENA GRAY Attending Clinician Unavailable SIMI BEAVER Attending Clinician Unavailable OLI JEFFREY K.HTrina Attending Clinician Unavailable Oli Jeffrey MD K.H. Attending Clinician SAM REDDING Attending Clinician Unavailable , [facility] Room 1 - Attending Clinician Unavailable JOSE DUNLAP Attending Clinician Unavailable Jose Dunlap DO Attending Clinician SHENA ORR Attending Clinician Unavailable ANGELES UGALDE Attending Clinician Unavailable ADRIANA MAGALLANES Attending Clinician Unavailable WILL TINAJERO Attending Clinician Unavailable Darwin Adrian Attending Clinician PEARL BROOKS Admitting Clinician Unavailable DARLING MORAN Admitting Clinician Unavailable AYAAN CHRISTIAN Admitting Clinician Unavailable IcarleneS Admitting Clinician Unavailable MORALES FITCH Admitting Clinician Unavailable JOSE DUNLAP Admitting Clinician Unavailable SIMI BEAVER Admitting Clinician Unavailable SHENA ORR Admitting Clinician Unavailable EDUARDO LEGER Admitting Clinician Unavailable ADRIANA MAGALLANES Admitting Clinician Unavailable WILL TINAJERO Admitting Clinician Unavailable Payers Payer Name Policy Type Policy Number Effective Date Expiration Date S ivy [employer] [facility] MGD MCR 00:00:00 [employer] 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:00:00 [employer] [facility] 2021 (MEDICARE 00:00:00 REPLACEMENT HMO) WELLCARE VALUE [id number] 2020 00:00:00 [employer] C1 [id number] [facility] MEDICARE PART A [id number] 2011 2020 \\T\\ B 00:00:00 00:00:00 Problems [...] PAD PAD Disease Active Univers (periphera (periphera 7- it y of l artery l artery 00:00: [place] disease) disease) 00 Medica l Branch Stress-ind Stress-ind Disease Active U nivers uced uced 7-21 ity of cardiomyop cardiomyop [place] 00 Medical [place] Venous Venous Disease Active Univers insufficie insufficie 7- it y of ncy ncy 00:00: [place] 00 Medical Branch Chronic Chronic Disease Active 2018-03 Univers systolic 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 00:00: [place] failure failure 00 Medical Branch Diabetes Diabetes Disease Recurre Overview: C [facility] mellitus mellitus nce 12-13 Formattin Luis es 00:00: g of this Medical 00 note Center might be different from the original. Type II Acute GI Acute GI Disease Active [facility] bleeding bleeding 12-13 [facility] 00[facility] Medical 00 Center Arterioven Arterioven Disease Active C [facility] ous ous 12-13 [facility] malformati malformati 00:00: Me dical on (AVM) on (AVM) 00 Center Coronary Coronary Disease Active [facility] t artery artery 12-13 [facility] disease disease 00:00: Medical involving involving 00 Cent [place] coronary coronary artery artery Essential Essential Disease Active [facility] hypertensi hypertensi 17 Dora kes on on 00:00: Medical 00 Center Microcytic Microcytic Disease Active [facility] anemia anemia 12-13 [facility] 00:[facility] Medical 00 Center Gastrointe Gastrointe Disease Active C [facility] stinal stinal 9-14 [facility] hemorrhage hemorrhage 00:00: Me dical , , 00 Center unspecifie unspecifie d d gastrointe gastrointe stinal stinal hemorrhage hemorrhage type type Severe Severe Disease Recurre [facility] sepsis sepsis nce 11-25 [facility] 00:00: Medical 00 Center Anemia due Anemia due Disease Active C [facility] to acute to acute 29 [facility] blood loss blood loss 00:00: Me [...] loss 10-27 Dora kes anemia anemia 00:00: [address] Upper GI Upper GI Disease Active Unive rs bleed bleed 10-23 ity of 00:00: [address] GI bleed GI bleed Disease Active [facility] t 10-23 [facility] 00:00: [address] DSU- DSU- Diagnosis Active 2017-02-10 [facility] oritesfaye HEMATOCHEZ HEMATOCHEZ 10-01 16:16:00 l [place] R19.5, [place] R19.5, 00:00: Blaire tristan FATIGUE FATIGUE 00 R53.83, R53.83, Active 10/01/2016 [facility] Obesity Obesity Disease Active Univers (BMI (BMI 09-02 ity of 30-39.9) 30-39.9) 00:00: [address] SBO (small SBO (small Disease Active [facility] bowel bowel 09-01 ity of obstructio obstructio 00:00: Evan adams) n) [address] [place] [address] F/U F/U Diagnosis Active 2016-10-01 Mem oria Active 07-02 10:31:00 l 07/02/2016 00:00: Gilbert adams [address] CONSULT CONSULT Diagnosis Active 2016-07-02 Memoria Active 05-06 11:37:00 l 05/06/2016 00:00: Gilbert adams [address] Depression Depression Disease Active U nivers ity of [facility] [id number] Right-side Problem Co mmon d back Spirit pain, - CHI unspecifie St d back [facility] location, Medical unspecifie Center d chronicity Anxiety Anxiety Problem Common [facility] Osteoporos Osteoporos Problem C ommon is is Spirit [facility] Depression Depression Problem C ommon [facility] COPD - COPD Problem Common Chronic (chronic Spirit obstructiv obstructiv - CHI e e St pulmonary pulmonary Luke s disease disease) [facility] [id number] Ventral Problem Commo n hernia Spirit without - CHI obstructio [facility] Stroke Stroke Problem [facility] [id number] Chronic Problem Commo n blood loss Spirit anemia - [facility] White Other Problem Common blood cell specified Spi rit disorder disease of - CH I white blood [facility] Seasonal Seasonal Problem Commo n allergic allergic Spirit rhinitis reaction - [facility] [id number] Coronary Problem Comm on artery Spirit disease - CHI involving [facility] coronary Medical artery of Center [place] heart with other form of angina pectoris Disorder Circulatio Problem Com mon of n problem Spirit cardiovasc - CHI ular [facility] [id number] Abdominal Problem Comm on pain, Spirit unspecifie - CHI d [facility] [id number] Encounter Problem Com mon for Spirit tobacco - CHI use [facility] [id number] Uncontroll Problem Co mmon ed type 2 Spirit diabetes - CHI mellitus [facility] hyperglyce Medica [facility] Peripheral Peripheral Problem C ommon neuropathy neuropathy Sp tarun - [facility] [id number] Insomnia, Problem Com mon unspecifie Spirit d type - [facility] [id number] Hammer toe Problem Co mmon of right Spirit foot - [facility] Iron Fe Problem Common deficiency deficiency Sp tarun anemia anemia - [facility] [id number] Primary Problem Commo n osteoarthr Spirit itis - CHI involving [facility] [id number] Cardiomyop Problem Com mon athy, Spirit unspecifie - CHI d type [facility] [id number] Decreased Problem Comm on diastolic Spirit blood - CHI pressure [facility] [id number] Pneumonia Problem Com mon due to Spirit infectious - [facility] organism[facility] , unspecifie d part of lung [id number] Arterioven Problem Co mmon ous Spirit malformati - CHI on small [facility] [id number] Tobacco Problem Commo n use Spirit disorder - [facility] [id number] Wheezing Problem Commo n Spirit - [facility] [id number] Tremor Problem [facility] Anemia due Anemia due Problem C ommon to blood to blood Spirit loss loss - [facility] Arterioven Arterioven Problem C ommon ous ous Spirit malformati malformati - CHI on on, other [facility] [id number] Depression Problem Com mon , major, Spirit single - CHI episode, [facility] [id number] Constipati Problem Com mon on, Spirit unspecifie - [facility] [id number] Mixed Problem Common hyperlipid Spirit emia - [facility] [id number] Chronic Problem Commo n kidney Spirit disease, - [facility] stage [facility] [id number] Type 2 Problem Commo n 05 diabetes Spirit mellitus - CHI with [facility] kidney Center disease [id number] History of Problem C ommon [id number] allergic Spirit reaction - [facility] [id number] Chronic Problem Commo n pain Spirit syndrome - [facility] Hyperlipid Hyperlipid Problem C ommon emia emia Spirit - [facility] Type 2 Type 2 Problem Common diabetes diabetes Spirit mellitus mellitus - CHI without without complicati complicati Dora kes on [facility] Anemia Anemia Problem Resolve 2016-10-04 Me moria (disorder) (disorder) d 00:05:00 l Resolved Nader Problem 10/04/2016 [facility] Congenital Congenita Problem Resolve 2016-10-04 Memoria arterioven l d 00:05:00 l ous arterioven Gilbert n malformati ous on malformati (disorder) on (disorder) Resolved Problem 10/04/2016 [facility] Gallbladde Gallbladd Problem Resolve 2016-10-04 Memoria r calculus er d 00:05:00 l (disorder) calculus Herm kun (disorder) Resolved Problem 10/04/2016 [facility] Gout Gout Problem Resolve 2016-10-04 Jim maya (disorder) (disorder) d 00:05:00 l Resolved Nader Problem 10/04/2016 [facility] History of History Problem Resolve 2016-10-04 Memoria - TIA of - TIA d 00:05:00 l (context-d (context-d He rmann ependent ependent category) category) Resolved Problem 10/04/2016 [facility] Asthma Asthma Problem Resolve 2016-10-04 Me moria (disorder) (disorder) d 00:05:00 l Resolved Nader Problem 10/04/2016 [facility] Arthritis Arthritis Problem Resolve 2016-10-04 Memoria (disorder) (disorder) d 00:05:00 l Resolved Nader Problem 10/04/2016 [facility] Peripheral Periphera Problem Resolve 2016-10-04 Memoria vascular l vascular d 00:05:00 l disease disease Nader (disorder) (disorder) Resolved Problem 10/04/2016 [facility] Polyp of Polyp of Problem Resolve 2016-10-04 Memoria colon colon d 00:05:00 l (disorder) (disorder) He rmann Resolved Problem 10/04/2016 [facility] ENCNTR FOR ENCNTR Diagnosis Active 2016-10-01 Memoria GENERAL FOR 10:31:00 l ADULT GENERAL Nader MEDICAL ADULT EXAM W/ MEDICAL EXAM W/ Active [facility] OTHER OTHER Diagnosis Active 2017-02-10 Me moria FECAL FECAL 16:16:00 l ABNORMALIT ABNORMALIT He rmann IES IES Active [facility] Allergies, Adverse Reactions, Alerts Allergy Allergy Status Severity Reaction(s) Onset Inactive Treating Comm ents Source Name Type Date Date Clinician Sulfa Propensi Active 2021-03 [facility] Antibiot ty to 0-27 College ics adverse 00:00: of reaction 00 Medicin s to e drug Opioid Propensi Active 2021-03 [facility] Analgesi ty to 0-27 College cs adverse 00:00: of reaction 00 Medicin s to e drug Atorvast Propensi Active 2021-03 [facility] atin ty to 0-27 College adverse 00:00: of reaction 00 Medicin s to e drug Clindamy Propensi Active 2021-03 [facility] fabián ty to 0-27 College adverse 00:00: of reaction 00 Medicin s to e drug Codeine Propensi Active 2021-03 [facility] ty to 0-27 College adverse 00:00: of reaction 00 Medicin s to e drug Glimepir Propensi Active 2021-03 [facility] diane ty to 0-27 College adverse 00:00: of reaction 00 Medicin s to e drug Iodine Propensi Active 2021-03 [facility] ty to 0-27 College adverse 00:00: of reaction 00 Medicin s to e drug Opioid Propensi Active 2021-03 [facility] Analgesi ty to 0-27 College cs adverse 00:00: of reaction 00 Medicin s to e drug HYDROXYZ DRUG Active Hives 2020- Univers INE INGREDI 0-12 ity of 00:00: [place] 00 Medical Branch Hydroxyz Propensi Active Hives 2020- Univer s ine ty to 0-12 ity [...] Anaphylaxis [facility] hene ty to 27 [facility] N-Acetam adverse 00:00: Medical inophen reaction 00 Center s Erythrom Propensi Active Hives [facility] ycin ty to 10-22 [facility] adverse 00:00: Medical reaction 00 Center s Glimepir Propensi Active Hives [facility] diane ty to 10-22 [facility] adverse 00:00: Medical reaction 00 Center s Glipizid Propensi Active [facility] e ty to 727 [facility] adverse 00:00: Medical reaction 00 Center s Peg Propensi Active Anaphylaxis [facility] 3350[facility]Radha ty to 10-22 [facility] ctrolyte adverse 00:00: Medical s reaction 00 Center s Iodine Propensi Active Anaphylaxis [facility] And ty to 727 [facility] Iodide adverse 00:00: Medical Containi reaction [...] Propensi Active [facility] atin ty to 7 [facility] adverse 00:00: Medical [...] Allergy Active [facility] FABIÁN 10-22 00:00: 00 Penicill Propensi Active Hives [address] ins ty to 10-22 [facility] adverse 00:00: Medical reaction 00 Center s CODEINE Allergy Active Itching [facility] 10-22 00:00: 00 Sulfa Propensi Active Hives [facility] (Sulfona ty to 10-22 [facility] mide adverse 00:00: Medical Antibiot reaction 00 Center ics) s ERYTHROM Allergy Active Hives [facility] YCIN 10-22 00:00: 00 PROPOXYP DRUG Active High Anaphylaxis Uni vers HENE 10-22 ity of N-ACETAM 00:00: [place] INOPHEN 00 Medical Branch BUPROPIO DRUG Active Other-Cmnt 2017 Univ ers N HCL INGREDI 10-22 ity of 00:00: [place] 00 Medical Branch PIOGLITA DRUG Active Unknown-Cmnt Un soni ZONE INGREDI 10-22 ity of 00:00: [place] 00 Medical Branch TRIMETHO DRUG Active Unknown-Cmnt Un soni PRIM INGREDI 10-22 ity of 00:00: [place] 00 Medical Branch PIOGLITA DRUG Active Hives 2017 Univers ZONE HCL INGREDI 09-01 ity of 00:00: [place] 00 Medical Branch CLINDAMY DRUG Active ITCHING 2017 Univers FABIÁN INGREDI 09-01 ity of 00:00: [place] 00 Medical Branch ROSUVAST DRUG Active ITCHING 2017 Univers ATIN INGREDI 09-01 ity of CALCIUM 00:00: [place] 00 Medical Branch ERYTHROM DRUG Active Other-Cmnt 2017 Univ ers YCIN 09-01 ity of 00:00: [place] 00 Medical Branch GLIMEPIR DRUG Active Hives 2017 Univers DIANE INGREDI 09-01 ity of 00:00: [place] 00 Medical Branch IODINE DRUG Active Hives 2017- Univers INGREDI 09-01 ity of 00:00: [place] 00 Medical Branch SITAGLIP DRUG Active Other-Cmnt 2017 Univ ers TIN INGREDI 09-01 ity of 00:00: [place] 00 Medical Branch ATORVAST DRUG Active Other-Cmnt 2017 Univ ers ATIN INGREDI 09-01 ity of 00:00: [place] 00 Medical Branch PENICILL DRUG Active Swelling 2017 Univer s IN INGREDI 09-01 ity of 00:00: [place] 00 Medical Branch SULFA Drug Active Hives 2017-0 Univers (SULFONA Class 09-01 ity of MIDE 00:00: [place] ANTIBIOT 00 Medical ICS) Branch SULFAMET DRUG Active Hives 2017-0 Univers HOXAZOLE INGREDI 09-01 ity of 00:00: [...] Medical s Branch Clindamy Propensi Active Itching 2017 Unive rs fabián ty to 09-01 ity of adverse 00:00: [place] reaction 00 Medical s Branch Codeine Propensi Active Itching 2016-0 Univer s ty to 09-01 ity of adverse 00:00: [place] reaction 00 Medical s to Branch drug Rosuvast Propensi Active Itching 0 Unive rs atin ty to 09-01 ity [...] Medical s Branch Iodine Propensi Active Hives 2017 IV Univers ty to 09-01 contrast ity [...] of mide adverse 00:00: [place] Antibiot reaction Medica l ics) s Branch Sulfamet Propensi Active Hives Univer s hoxazole ty to 09-01 ity of adverse 00:00: [place] reaction 00 Medical s Branch Bupropio Propensi Active Hives Univer s n ty to 09-01 ity of adverse 00:00: [place] reaction Medical s Branch clindamy clindamy Active Unknown Commo n fabián fabián [facility] hydroxyz hydroxyz Active Unknown Commo n ine ine [facility] atorvast atorvast Active Unknown Commo n atin atin [facility] metronid metronid Active Unknown Commo n azole azole [facility] erythrom erythrom Active Unknown Commo n ycin ycin [facility] propoxyp propoxyp Active Unknown Commo n hene hene [facility] 5337 Drug Active Unknown Common allergy [facility] glimepir glimepir Active Unknown Commo n diane diane [facility] trimetho trimetho Active Unknown Commo n prim prim [facility] 463 Drug Active Unknown Common allergy [facility] sitaglip sitaglip Active Unknown Commo n tin tin [facility] Penicill Penicill Active Unknown Commo n in in [facility] pioglita pioglita Active Unknown Commo n zone zone [facility] bupropio bupropio Active Unknown Commo n n n [facility] rosuvast rosuvast Active Unknown Commo n atin atin [facility] erythrom erythrom Active Memori a ycin ycin l [place] glimepir glimepir Active Memori a diane diane l [place] glipiZID glipiZID Active Memori a E E l [place] iodine iodine Active Memoria l [place] Januvia Januvia Active Memoria l [place] Lipitor Lipitor Active Memoria l [place] metFORMI metFORMI Active Memori a N N l [place] morphine morphine Active Memori a l [place] penicill penicill Active Memori a ins ins l [place] sulfa sulfa Active Memoria drugs drugs l [place] Wellbutr Wellbutr Active Memori a in in l [place] Bactrim Bactrim Active Memoria l [place] Bandaids Bandaids Active Memori a l [place] clindamy clindamy Active Memori a fabián fabián l [place] codeine codeine Active Memoria l [place] Crestor Crestor Active Memoria l [place] Darvocet Darvocet Active Memori a -N 50 -N 50 l [place] Family History Family Member Diagnosis Comments Start Date Stop Date Source Natural brother Depression [facility] Natural daughter Depression [facility] Natural father Early [facility] Natural sister Depression [facility] Natural mother No Known Problem [facility] Natural son No Known Problem [facility] Social History Social Habit Start Date Stop Date Quantity Comments Source History [facility] o f Alcohol Frequency [place] M edical Branch History [facility] o f Alcohol Std Drinks [place] [facility] History [facility] o f Alcohol Binge [place] Medic al Branch History of tobacco Cigarette Smoker [facility] of use Medicine History [facility]-Med Medical Center Alcohol intake 2022-02-21 2022-02-21 Current [facility] 00:00:00 00:00:00 non-drinker of Medical Ce nter alcohol (finding) History [facility] 2022-01-25 2022-01-25 2 [facility] Transport Med 00:00:00 00:00:[address] [facility] 2022-01-25 2022-01-25 2 [facility] Housing Unable to 00:00:00 00:00:00 Medical Center Pay History SDIL 2022-01-25 2022-01-25 1 [facility] Housing Places 00:00:00 00:00:00 Medical Ce nter Lived History [facility] 2022-01-25 2022-01-25 2 [facility] Housing Homeless 00:00:00 00:00:00 Medical Center Last Year Cigarettes smoked 2022-01-22 2022-01-22 [facility] (pack per 00:00:00 00:00:00 Medicin e day) - Reported Cigarette 2022-01-22 2022-01-22 [facility] of pack-years 00:00:00 00:00:00 Medicine Tobacco use and 2022-01-22 2022-01-22 Smokeless [facility] llege of exposure 00:00:00 00:00:00 tobacco non-user Medicine Exposure to 2021-07-24 2021-08-03 Not sure University of SARS-CoV-2 (event) 00:00:00 22:08:00 [facility] Alcohol Comment 2019-01-06 2019-01-06 1 glass of wine Univ ersity of 00:00:00 00:00:00 every few months [facility] Tobacco Comment 2016-09-02 2016-09-02 quit in 2015 Univers ity of 00:00:00 00:00:00 [facility] Social History 2016-07-02 2016-07-02 [facility] 15:44:33 15:44:33 Sex Ass[birth year] At [birth year] [address] [facility] [address] Dora walkers 00:00:00 00:00:00 Medical Center Smoking Status Start Date Stop Date Source Smokes tobacco daily 2022-01-22 00:00:00 [facility] Never smoker [facility] Center Medications Ordered Filled Start Stop Current Ordering Indication Dosage Frequency Signature Comments Components Source Medication Medication Date Date Medication? Clinician (SIG) Name Name B Complex 2021-03 Yes as [facility] Vitamins 2-20 directed College (VITAMIN B 14:55: Orally of COMPLEX) 58 Medicin TABS e Probiotic 2021-03 Yes 1{capsu Take 1 [place] [facility] Product 2-20 le} capsule by Kristyn pinto (ACIDOPHILU 14:55: mouth. of S/GOAT 58 Medicin MILK) CAPS e Zinc 2021-03 Yes 1 tablet [facility] Gluconate 2-20 Orally [place] 50 MG TABS 14:55: Once a day [...] e duloxetine 2021-03 Yes 1{capsu 1 capsule. [facility] (CYMBALTA) 2-20 le} [facility] 60 MG 14:51: of capsule 06 Medicin e polyethylen 2021-03 Yes 1{packe Take 1 B aylor e glycol 2-20 t} Packet by Kristyn (MIRALAX) 14:51: mouth of 17 g packet 06 daily. Medici n e linaCLOtide 2021-03 Yes [id number] 145ug Take 145 Jeremías (LINZESS) 2-20 mcg by [place] 145 MCG 00:00: mouth of CAPS 00 daily. Medicin e magnesium 2021-03 Yes [id number] 400mg Take 1 [facility] oxide 2-20 Tablet by [place] (MAG-OX) 00:00: mouth two of 400 MG 00 times Medicin tablet daily. e omeprazole 2021-03 Yes 40mg Take 1 [facility] (PRILOSEC) 2-20 capsule by Col lege 40 MG 00:00: mouth of capsule 00 daily. Medicin e ferrous 2021-03- No 325mg Take 1 Jeremías sulfate 325 2-20 12-21 Tablet by Id llege (65 Fe) MG 00:00: 05:59 mouth [...] by mouth [facility] MG tablet 18:09: nightly. [address] insulin 2021-03 Yes 35U Inject 35 [facility] S t aspart 2-08 Units [facility]ukes protamine-i 18:09: [facility] nsulin [facility] 2 Center aspart (two) (NOVOLOG times MIX [...] by mouth [facility] MG tablet 18:09: nightly. [address] insulin 2021-03 Yes 35U Inject 35 [facility] S t aspart 2-08 Units [facility]ukes protamine-i 18:09: [facility] nsulin [facility] 2 Center aspart (two) (NOVOLOG times MIX [...] by mouth [facility] MG tablet 18:09: nightly. [address] insulin 2021-03 Yes 35U Inject 35 CHI S t aspart 2-08 Units [facility]ukes protamine-i 18:09: subcutaneo Medical nsulin 49 usly 2 Center aspart (two) (NOVOLOG times [...] tablet 00 :00 daily. Medicin e pantoprazol 2021-03- No 1{tbl} 1 Tablet Jeremías e 0-31 12-20 daily. College (PROTONIX) 00:00: 00:00 of 40 MG 00 :00 Medicin tablet e amitriptyli 2021-03- No 5mg Take [address] ne (ELAVIL) 0-30 10-30 by mouth Luis es 10 MG 03:29: 00:00 every Medical tablet 33 :00 night as Center needed . busPIRone 2021-03- No 15mg Q.5D Take [address] [facility] (BUSPAR) 15 0-30 10-30 by mouth 2 L u[facility] MG tablet 03:29: 00:00 (two) Medica l 33 :00 times Center daily. citalopram 2021-03- No 40mg QD Take [address] [facility] (CELEXA) 40 0-30 10-30 by mouth Luis es MG tablet 03:29: 00:00 daily. Medic al 33 :00 Center cyclobenzap 2021-03- No 5mg Take 5 mg [facility] [...] daily. Medic al 33 :00 Center cyclobenzap 2021-03- No 5mg Take [address] [facility] rine 0-30 10-30 by mouth 3 [facility] (FLEXERIL) 03:29: 00:00 (three) Med ical 5 MG tablet 33 :00 times Center daily as needed for Muscle spasms. gabapentin 2021-03- No 300mg Q.5D Take [address] [facility] (NEURONTIN) 0-30 10-30 mg by [facility] 600 MG 03:29: 00:00 mouth 2 Medical tablet 33 :00 (two) Center times daily . guaiFENesin 2021-03- No 200mg Take [address] [facility] (ROBITUSSIN [...] :00 night as Center needed . busPIRone 2021-03- No 15mg Q.5D Take [address] [facility] (BUSPAR) 15 0-30 10-30 by mouth 2 L [facility] MG tablet 03:29: 00:00 (two) Medica l 33 :00 times Center daily. citalopram 2021-03- No 40mg QD Take [address] [facility] (CELEXA) 40 0-30 10-30 by mouth Luis es MG tablet 03:29: 00:00 daily. Medic al 33 :00 Center cyclobenzap 2021-03- No 5mg Take [address] [facility] rine 0-30 10-30 by mouth 3 [facility] (FLEXERIL) 03:29: 00:00 (three) Med ical 5 MG tablet 33 :00 times Center daily as needed for Muscle spasms. gabapentin 2021-03- No 300mg Q.5D Take [address] (NEURONTIN) 0-30 10-30 mg by [facility] 600 MG 03:29: 00:00 mouth 2 Medical tablet 33 :00 (two) Center times daily . guaiFENesin 2021-03- No 200mg Take [address] [facility] (ROBITUSSIN [...] capsule 30 Medicin e octreotide 2021-03- No [id number] 10mg Inject 10 [facility] ACETATE 0-27 10-27 mg into College (SANDOSTATI [...] 00:00: 00:00 eeded} 00 :00 Benzonatate Benzonatate 2021- No 1{capsu Benzonatat 200 MG 200 MG 12-17 le_as_n e 200 MG 00:00: 00:00 eeded} 00 :00 Benzonatate Benzonatate 2021- No 1{capsu Benzonatat 200 MG 200 MG 12-17 le_as_n e 200 MG 00:00: 00:00 eeded} 00 :00 Benzonatate Benzonatate 2021- No 1{capsu Benzonatat 200 MG 200 MG 12-17 le_as_n e 200 MG 00:00: 00:00 eeded} 00 :00 Benzonatate Benzonatate 2-0 2022- No 1{capsu Benzonatat 200 MG 200 MG 12-17 le_as_n e 200 MG 00:00: 00:00 eeded} 00 :00 Benzonatate Benzonatate 2-0 2022- No 1{capsu Benzonatat 200 MG 200 MG 12-17 le_as_n e 200 MG 00:00: 00:00 eeded} 00 :00 Benzonatate Benzonatate 2-0 2022- No 1{capsu Benzonatat 200 MG 200 MG 11-10 le_as_n e 200 MG 00:00: 00:00 eeded} 00 :00 Benzonatate Benzonatate 2-0 2022- No 1{capsu Benzonatat 200 MG 200 MG 11-10 le_as_n e 200 MG 00:00: 00:00 eeded} 00 :00 Benzonatate Benzonatate 2-0 2022- No 1{capsu Benzonatat 200 MG 200 MG 11-10 le_as_n e 200 MG 00:00: 00:00 eeded} 00 :00 Benzonatate Benzonatate 2-0 2022- No 1{capsu Benzonatat 200 MG 200 MG 11-10 le_as_n e 200 MG 00:00: 00:00 eeded} 00 :00 Cefdinir Cefdinir 2-0 2022- No Cefdinir 300 MG 300 MG 11-10- 300 MG 00:00: 00:00 00 :00 Cefdinir Cefdinir 2022-0 2022- No Cefdinir 300 MG 300 MG 8-10 11- 300 MG 00:00: 00:00 00 :00 Cefdinir Cefdinir 2022-0 2022- No Cefdinir 300 MG 300 MG 8-10 11- 300 MG 00:00: 00:00 00 :00 Cefdinir Cefdinir 2022-0 2022- No Cefdinir 300 MG 300 MG 10-08 300 MG 00:00: 00:00 00 :00 Cefdinir Cefdinir 2022-0 2022- No Cefdinir 300 MG 300 MG 10-08-20 300 MG 00:00: 00:00 00 :00 Cefdinir Cefdinir 0 2021- No Cefdinir 300 MG 300 MG 10-0820 300 MG 00:00: 00:00 00 :00 Cefdinir Cefdinir 0 2021- No Cefdinir 300 MG 300 MG 10-0820 300 MG 00:00: 00:00 00 :00 predniSONE predniSONE 2021- No QD predniSONE 20 MG 20 [...] MG 00:00: 00:00 00 :00 Octreotide Octreotide 2021- No 1{ml} Octreotide Acetate 20 Acetate 20 08-28 Acetate 20 MG MG 00:00: 00:00 MG 00 :00 Octreotide Octreotide 2021- No 1{ml} Octreotide Acetate 20 Acetate 20 08-28 Acetate 20 MG MG 00:00: 00:00 MG 00 :00 Octreotide Octreotide 2021- No 1{ml} Octreotide Acetate 20 Acetate 20 08-28 Acetate 20 MG MG 00:00: 00:00 MG 00 :00 Octreotide Octreotide 2021- No 1{ml} Octreotide Acetate 20 Acetate 20 08-28 Acetate 20 MG MG 00:00: 00:00 MG 00 :00 Octreotide Octreotide 2021- No 1{ml} Octreotide Acetate 20 Acetate 20 08-28 Acetate 20 MG MG 00:00: 00:00 MG 00 :00 DULoxetine DULoxetine 0 No 1{capsu QD DULoxetine HCl 60 MG HCl 60 MG 08-27 le} HCl 60 MG 00:00: 00 DULoxetine [...] No QD methylPRED ISolone 4 ISolone 4 05-28- NISolone 4 MG MG 00:00: 00:00 MG 00 :00 methylPREDN methylPREDN 2021- No QD methylPRED ISolone 4 ISolone 4 05-28 NISolone 4 MG MG 00:00: 00:00 MG 00 :00 methylPREDN methylPREDN 2021- No QD methylPRED ISolone 4 ISolone 4 05-28 NISolone 4 MG MG 00:00: 00:00 MG 00 :00 Benzonatate Benzonatate 2021- No 1{capsu Benzonatat 100 MG 100 MG 05-28 le_as_n e 100 MG 00:00: 00:00 eeded} 00 :00 Cefdinir Cefdinir 2021- No Cefdinir 300 MG 300 MG 05-28 300 MG 00:00: 00:00 00 :00 methylPREDN methylPREDN 2021- No QD methylPRED ISolone 4 ISolone 4 05-28 NISolone 4 MG MG 00:00: 00:00 MG 00 :00 EPINEPHrine Yes as Jeremías 0.3 1-14 directed College MG/0.3ML 00:00: Injection of injection 00 Medicin e EPINEPHrine EPINEPHrine No EPINEPHrin 0.3 0.3 1-14 e 0.3 MG/0.3ML MG/0.3ML 00:00: MG/0.3ML 00 Ipratropium Ipratropium 0 No 3{ml_as QID Ipratropiu -Albuterol -Albuterol -14 _needed m-Albutero 0.5-2.5 (3) 0.5-2.5 (3) 00:00: } l 0.5-2.5 MG/3ML MG/3ML 00 (3) MG/3ML EPINEPHrine EPINEPHrine 0 No EPINEPHrin 0.3 0.3 1-14 e 0.3 MG/0.3ML MG/0.3ML 00:00: MG/0.3ML 00 Ipratropium Ipratropium 0 No 3{ml_as QID Ipratropiu -Albuterol -Albuterol 1-14 [...] by mouth ity of tablet 16:37: daily. [place] [address] Medical Branch Cholecalcif 2020-03 Yes Take by Uni vers mechelle, 2-14 mouth ity of Vitamin D3, 16:37: [place]000 [place] 13 Medical capsule Branch Magnesium 2020-03 Yes Take by Unive rs Oxide 500 2-14 mouth ity of mg Tab 16:37: daily. [place] [address] Medical Branch insulin 2020-03 Yes Inject as Unive rs regular, 2-14 directed ity of human 16:37: as needed. [place] (NOVOLIN R 13 Medical INJECTION) Branch zinc 2020-03 Yes Take by Univers sulfate 2-14 mouth. ity of (ZINC-15 16:37: [place] ORAL) 13 Medical Branch citalopram 2020-03 Yes 20mg Take 20 mg U nivers 20 mg 2-14 by mouth ity of tablet 16:37: daily. [place] [address] Medical Branch ascorbic 2020-03 Yes 500mg Take 500 Univ ers acid, 2-14 mg by ity of vitamin C, 16:37: mouth [place] 500 mg 13 daily. Medical tablet Branch aspirin 81 2020-03 Yes 81mg Take 81 mg U nivers mg EC 2-14 by mouth ity of tablet 16:37: daily. [place] [address] Medical Branch Cholecalcif 2020-03 Yes Take by Uni vers mechelle, 2-14 mouth ity of Vitamin D3, 16:37: daily. [place] 1,000 unit 13 Medical capsule Branch Magnesium 2020-03 Yes Take by Unive rs Oxide 500 2-14 mouth ity of mg Tab 16:37: daily. [place] 13 Medical Branch insulin 2020-03 Yes Inject as Unive rs regular, 2-14 directed ity of human 16:37: as needed. [place] (NOVOLIN R 13 Medical INJECTION) Branch zinc 2020-03 Yes Take by Univers sulfate 2-14 mouth. ity of (ZINC-15 16:37: [place] ORAL) 13 Medical Branch citalopram 2020-03 Yes 20mg Take 20 mg U nivers 20 mg 2-14 by mouth ity of tablet 16:37: daily. [place] 13 Medical Branch Magnesium 2020-03 Yes Take by [facility] Oxide 500 2-14 mouth College MG TABS 00:00: daily. of 00 Medicin e Magnesium 2020-03 Yes Take by [facility] Oxide 500 2-14 mouth College MG TABS 00:00: daily. of 00 Medicin e ascorbic 2020-03 Yes 500mg Take 500 [facility] acid 500 MG 2-14 mg by College tablet 00:00: mouth of 00 daily. Medicin e Cholecalcif 2020-03 Yes Take by [place] atul mechelle 25 MCG 2-14 mouth College (1000 UT) 00:00: daily. of CAPS 00 Medicin e metoprolol 2020-03 Yes [id number] 25mg Take 1 Univers succinate 1-12 tablet by ity o f XL 25 mg 24 00:00: mouth [place] hr tablet 00 daily. Medical Branch metoprolol 2020-03 Yes [id number] 25mg Take 1 Univers succinate 1-12 tablet [...] MG 00:00: 25 MG 00 Ferrous Yes [id number] 1{tbl} Take 1 U nivers Fumarate 9-10 tablet by ity of 324 mg (106 00:00: mouth 2 Manuel as mg iron) 00 (two) Medical Tab times Branch daily. Ferrous Yes [id number] 1{tbl} Take 1 U nivers Fumarate 9-10 tablet by ity of 324 mg (106 00:00: mouth 2 Manuel as mg iron) 00 (two) Medical Tab times Branch daily. insulin Yes 12U Inject 12 [facility] 70-30 9-08 Units into [place] (NOVOLIN 00:00: the skin of 70/30) 00 two times Medicin (70-30) 100 daily. e UNIT/ML injection insulin NPH Yes [id number] 8U inject 8 Univers and regular 9-08 Units ity of human 70-30 00:00: under the [place] (NOVOLIN 00 skin 2 Medical 70/30 U-100 (two) Branch INSULIN) times 100 unit/mL daily (70-30) before injection breakfast and dinner. insulin NPH Yes [id number] 8U inject 8 Univers and regular 9-08 Units ity of human 70-30 00:00: under the [place] (NOVOLIN 00 skin 2 Medical 70/30 U-100 (two) Branch INSULIN) times 100 unit/mL daily (70-30) before injection breakfast and dinner. SERTraline Yes [id number] 100mg Take 1 [facility] 100 mg 9-06 tablet by ity of tablet 00:00: mouth [place] 00 daily. Medical Branch SERTraline Yes [id number] 100mg Take 1 [facility] 100 mg 9-06 tablet by ity of tablet 00:00: mouth [place] 00 daily. Medical Branch Albuterol Yes Every 4 [facility] Sulfate 9-02 hours. [place] (VENTOLIN 00:00: of HFA) 108 00 Medicin (90 Base) e MCG/ACT AERS albuterol Yes [id number] 2{puff} Inhale 2 Univers 90 9-02 Puffs ity of mcg/actuati 00:00: every 6 Manuel as on inhaler 00 (six) Medical hours as Branch needed for Wheezing or Shortness of Breath. albuterol Yes [id number] 2{puff} Inhale 2 Univers 90 9-02 Puffs ity of mcg/actuati 00:00: every 6 Manuel as on inhaler 00 (six) Medical hours as Branch needed for Wheezing or Shortness of Breath. gabapentin Yes [id number] 200mg Take 2 Univers 100 mg 7-20 capsules ity of capsule 00:00: by mouth [place] every Medical evening. Branch gabapentin 0 Yes [id number] 200mg Take 2 Univers 100 mg 7-20 capsules ity of capsule 00:00: by mouth every Medical evening. Branch Methylcellu 0 Yes [id number] 17g Take 17 g Univers lose, with 1-27 by mouth ity o f Sugar, 00:00: daily. [place] (CITRUCEL, 00 Medical SUCROSE,) Branch powder Methylcellu Yes [id number] 17g Take 17 g Univers lose, with 1-27 by mouth ity o f Sugar, 00:00: daily. [place] (CITRUCEL, 00 Medical SUCROSE,) Branch powder Belsomra Belsomra Yes Pricila 1 tablet Common 7-24 [place] at bedtime Spir it 00:00: as needed - [facility] 00 [facility] BusPIRone BusPIRone Yes Pricila 1 tablet Common HCl HCl 6-10 [place] as needed Spiri t 00:00: for - [facility] 00 anxiety [facility] Trazodone Trazodone Yes Pricila 1/2 to 1 Common HCl HCl 6-10 [place] tablet at Spiri t 00:00: bedtime as - [facility] 00 needed for [facility] Ventolin Ventolin Yes Pricila 2 puffs as Common HFA HFA 3-19 [place] needed for Spir it 00:00: sob/wheezi - [facility] 00 ng [facility] amitriptyli Yes 5mg Take 5 mg C [...] 2 Center tablet (two) times daily. pantoprazol 2021- No 40mg Q.5D Take [address] [facility] e 11-28-31 tablet (40 [facility] (PROTONIX) 00:00: 00:00 mg total) M edical 40 MG 00 :00 by mouth 2 Center tablet (two) times daily. pantoprazol 2021- No 40mg Q.5D Take [address] [facility] e 11-28 tablet (40 [facility] (PROTONIX) 00:00: 00:00 mg total) M edical 40 MG 00 :00 by mouth 2 Center tablet (two) times daily. clopidogrel 2021- No 75mg QD Take [address] [facility] (PLAVIX) 75 9- 10-30 tablet (75 L ukes mg tablet 00:00: 00:00 mg total) Me dical 00 :00 by mouth Center daily. clopidogrel 2021- No 75mg QD Take [address] [facility] (PLAVIX) 75 9- 10-30 tablet (75 L ukes mg tablet 00:00: 00:00 mg total) Me dical 00 :00 by mouth Center daily. clopidogrel 2021- No 75mg QD Take [address] [facility] (PLAVIX) 75 9- 10-30 tablet (75 L ukes mg tablet 00:00: 00:00 mg total) Me dical 00 :00 by mouth Center daily. metFORMIN Yes Resume if [facility] (GLUCOPHAGE 8-01 you were Luke s ) 1000 MG 00:00: taking Medica l tablet 00 prior to Center admission. metFORMIN 2016- Yes Resume if [facility] (GLUCOPHAGE 8-01 you were Luke s ) 1000 MG 00:00: taking Medica l tablet 00 prior to Center admission. metFORMIN 2016-0 Yes Resume if [facility] (GLUCOPHAGE 8-01 you were Luke s ) 1000 MG 00:00: taking Medica l tablet 00 prior to Center admission. metFORMIN 2016-0 Yes Resume if [facility] (GLUCOPHAGE 8-01 you were Luke s ) 1000 MG 00:00: taking Medica l tablet 00 prior to Center admission. metFORMIN 2016-0 Yes Resume if [facility] (GLUCOPHAGE 8-01 you were Luke s ) 1000 MG 00:00: taking Medica l tablet 00 prior to Center admission. metFORMIN 2017- Yes Resume if [facility] (GLUCOPHAGE 8- you were Luke s ) 1000 MG 00:00: taking Medica l tablet 00 prior to Center admission. metFORMIN 2016- Yes Resume if [facility] (GLUCOPHAGE 8- you were Luke s ) 1000 MG 00:00: taking Medica l tablet 00 prior to Center admission. metFORMIN 2016- Yes Resume if [facility] (GLUCOPHAGE 8- you were Luke s ) 1000 MG 00:00: taking Medica l tablet 00 prior to Center admission. metFORMIN 2017- Yes Resume if [facility] (GLUCOPHAGE 8- you were Luke s ) 1000 MG 00:00: taking Medica l tablet 00 prior to Center admission. [facility] Yes 240 mL, Memori a oral powder 7-06 PO, l for 16:28: Q10Min, [place] recon[facility]ut 00 Give jug ion for Colonoscop y, # 1 ea, 0 Refill(s), Pharmacy: [facility] [address] [place] [address] Yes 240 mL, Memori a oral powder 7-06 PO, l for 16:28: Q10Min, [place] recon[facility]ut 00 Give jug ion for Colonoscop y, # 1 ea, 0 Refill(s), Pharmacy: [facility] [address] [place] [address] Yes 240 mL, Memori a oral powder 7-06 PO, l for 16:28: Q10Min, [place] reconstitut 00 Give jug ion for Colonoscop y, # 1 ea, 0 Refill(s), Pharmacy: [facility] [address] [place] [address] Yes 240 mL, Memori a oral powder 7-06 PO, l for 16:28: Q10Min, [place] [facility] 00 Give jug ion for Colonoscop y, # 1 ea, 0 Refill(s), Pharmacy: [facility] [address] [place] [address] Yes 240 mL, Memori a oral powder 7-06 PO, l for 16:28: Q10Min, [place] [facility] 00 Give jug ion for Colonoscop y, # 1 ea, 0 Refill(s), Pharmacy: [facility] [address] [place] [address] Yes 240 mL, Memori a oral powder 7-06 PO, l for 16:28: Q10Min, [place] reconstitut 00 Give jug ion for Colonoscop y, # 1 ea, 0 Refill(s), Pharmacy: [facility] [address] [place] [address] Yes 240 mL, Memori a oral powder 7-06 PO, l for 16:28: Q10Min, [place] [facility] 00 Give jug ion for Colonoscop y, # 1 ea, 0 Refill(s), Pharmacy: [facility] [address] [place] [address] Yes 240 mL, Memori a oral powder 7-06 PO, l for 16:28: Q10Min, [place] [facility] 00 Give jug ion for Colonoscop y, # 1 ea, 0 Refill(s), Pharmacy: [facility] [address] [place] [address] Yes 240 mL, Memori a oral powder 7-06 PO, l for 16:28: Q10Min, [place] [facility] 00 Give jug ion for Colonoscop y, # 1 ea, 0 Refill(s), Pharmacy: [facility] [address] [place] [address] Yes 240 mL, Memori a oral powder 7-06 PO, l for 16:28: Q10Min, [place] [facility] 00 Give jug ion for Colonoscop y, # 1 ea, 0 Refill(s), Pharmacy: [facility] [address] [place] [address] Yes 240 mL, Memori a oral powder 7-06 PO, l for 16:28: Q10Min, [place] [facility] 00 Give jug ion for Colonoscop y, # 1 ea, 0 Refill(s), Pharmacy: [facility] Octreotide Yes See Memoria 0.2 MG/ML [...] Pt brought her own supply 200 ACTUAT 2017 Yes 2 puff, Jim maya Albuterol 4-06 INHALATION l 0.09 15:52: , Q4H, 0 [place] MG/ACTUAT 00 Refill(s) Dry Powder Inhaler ascorbic Yes 500 mg = 1 Mem oria acid 500 mg 4-06 tab, PO, l oral tablet 15:52: Daily, 0 He r[place] 00 Refill(s) Lorazepam Yes 0.5 mg = 1 Me moria 0.5 MG Oral 4-06 tab, PO, l Tablet 15:52: TID, 0 [place] [Ativan] 00 Refill(s) SandoSTATIN Yes IM, q4wk, M emoria [place] 07-02 0 l 15:52: Refill(s) [place] 00 Docusate Yes 100 mg = 1 Mem oria Sodium 100 4-06 cap, PO, l MG Oral 15:52: BID, 0 [place] Capsule 00 Refill(s) [Colace] NovoLIN Yes SUB-Q, [...] PO, l Tablet 15:52: BID, # 6 [place] 00 tab, 0 Refill(s) Ondansetron Yes 4 mg = 1 Me moria 4 MG Oral 4-06 tab, PO, l Tablet 15:52: Q8H, 0 [place] [Zofran] 00 Refill(s) clopidogrel 2017 Yes 75 mg = 1 M emoria 75 MG Oral 4-06 tab, PO, l Tablet 15:52: Daily, 0 [place] [Plavix] 00 Refill(s) amitriptyli 2017 Yes 10 mg = 1 M emoria ne 10 mg 4-06 tab, PO, l oral tablet 15:52: Bedtime, # [place] 00 30 tab, 1 Refill(s) Omeprazole 2017 [...] maya - Daily, 0 l 15:52: Refill(s) [place] magnesium Yes 500 mg = 1 Me moria oxide 500 07-02 tab, PO, l mg oral 15:52: Daily, 0 [place] n tablet 00 Refill(s) Tylenol Yes 500 mg, Memoria 07-02 PO, 0 l 15:52: Refill(s) [place] 00 200 ACTUAT Yes 2 puff, Jim maya Albuterol 07-02 INHALATION l 0.09 15:52: , Q4H, 0 [place] MG/ACTUAT 00 Refill(s) Dry Powder Inhaler ascorbic Yes 500 mg = 1 Mem oria acid 500 mg 07-02 tab, PO, l oral tablet 15:52: Daily, 0 [place] Refill(s) Lorazepam Yes 0.5 mg = 1 Me moria 0.5 MG Oral 07-02 tab, PO, l Tablet 15:52: TID, 0 [place] [Ativan] 00 Refill(s) SandoSTATIN Yes IM, q4wk, M emoria [place] 07-02 0 l 15:52: Refill(s) [place] 00 Docusate Yes 100 mg = 1 Mem oria Sodium 100 07-02 cap, PO, l MG Oral 15:52: BID, 0 [place] Capsule 00 Refill(s) [Colace] NovoLIN Yes SUB-Q, 0 Memori a 70/30 06 Refill(s) l 15:52: [place] 00 Metformin Yes 1,000 mg = Me [...] tab, PO, l Tablet 15:52: Q8H, 0 [place] [Zofran] 00 Refill(s) clopidogrel 2017 Yes 75 mg = 1 M emoria 75 MG Oral 4-06 tab, PO, l Tablet 15:52: Daily, 0 [place] [Plavix] 00 Refill(s) amitriptyli 2017 Yes 10 mg = 1 M emoria ne 10 mg 4-06 tab, PO, l oral tablet 15:52: Bedtime, # [place] 00 30 tab, 1 Refill(s) Omeprazole 2017 [...] tab, PO, l Tablet 15:52: Daily, 0 [place] [Lasix] 00 Refill(s) Insulin, 2017 Yes SUB-Q, Memoria Aspart, 4-06 TID-Before l Human 100 15:52: Meals, 0 Herm kun UNT/ML 00 Refill(s) Injectable Solution [NovoLog] Buspar Yes 15 mg, PO, Memor ia 4-06 BID, 0 l 15:52: Refill(s) [place] 00 Citalopram Yes 40 mg = 1 Me moria 40 MG Oral 4-06 tab, PO, l Tablet 15:52: Daily, 0 [place] [Celexa] 00 Refill(s) aspirin 81 Yes 81 [...] maya 4- Daily, 0 l 15:52: Refill(s) [place] 00 magnesium Yes 500 mg = 1 Me moria oxide 500 - tab, PO, l mg oral 15:52: Daily, 0 [place] n tablet 00 Refill(s) Tylenol Yes 500 mg, Memoria 4-06 PO, 0 l 15:52: Refill(s) [place] 00 200 ACTUAT Yes 2 puff, Jim maya Albuterol - INHALATION l 0.09 15:52: , Q4H, 0 [place] MG/ACTUAT 00 Refill(s) Dry Powder Inhaler ascorbic [...] Memori a 70/30 4-06 Refill(s) l 15:52: [place] 00 Metformin Yes 1,000 mg = Me [...] PO, l Tablet 15:52: BID, # 6 [place] 00 tab, 0 Refill(s) Ondansetron Yes 4 mg = 1 Me moria 4 MG Oral 4-06 tab, PO, l Tablet 15:52: Q8H, 0 [place] [Zofran] 00 Refill(s) clopidogrel Yes 75 mg [...] tab, PO, l Tablet 15:52: TID, 0 [place] [Ativan] 00 Refill(s) SandoSTATIN 2017 Yes IM, q4wk, M emoria [place] 4-06 0 l 15:52: Refill(s) [place] 00 Docusate Yes 100 mg = 1 Mem oria Sodium 100 4-06 cap, PO, l MG Oral 15:52: BID, 0 [place] Capsule 00 Refill(s) [Colace] Cyclobenzap Yes 5 mg = 1 Me moria rine 4-06 tab, PO, l hydrochlori 15:52: TID, 0 Herm kun de 5 MG 00 Refill(s) Oral Tablet [Flexeril] NovoLIN Yes SUB-Q, 0 Memori a 70/30 4-06 Refill(s) l 15:52: [place] 00 Metformin Yes 1,000 mg = Me [...] Bedtime, 0 Elisa nn [Zocor] 00 Refill(s) Simvastatin Yes 20 mg = 1 M [...] tab, PO, l Tablet 15:52: Daily, 0 [place] [Lasix] 00 Refill(s) Insulin, Yes SUB-Q, Memoria Aspart, 406 TID-Before l Human 100 15:52: Meals, 0 Herm kun UNT/ML 00 Refill(s) Injectable Solution [NovoLog] Buspar Yes 15 mg, PO, Memor ia 4-06 BID, 0 l 15:52: Refill(s) [place] 00 Citalopram Yes 40 mg = 1 [...] , BID, 0 l 0.05 15:52: Refill(s) [place] MG/ACTUAT 00 Dry Powder Inhaler Miralax Yes 17 gm, PO, Jim maya 4-06 Daily, 0 l 15:52: Refill(s) [place] 00 magnesium Yes 500 mg = 1 Me moria oxide 500 4-06 tab, PO, l mg oral 15:52: Daily, 0 [place] n tablet 00 Refill(s) cholecalcif Yes 1,000 Memor ia mechelle 1000 07-02 IntlUnit = l intl units 15:52: 1 cap, PO, H ermann oral 00 Daily, 0 capsule Refill(s) Tylenol Yes 500 mg, Memoria 4-06 PO, 0 l 15:52: Refill(s) [place] 00 Furosemide Yes 20 mg = 1 Me moria 20 MG Oral -06 tab, PO, l Tablet 15:52: Daily, 0 [place] [Lasix] 00 Refill(s) Insulin, Yes SUB-Q, Memoria Aspart, - TID-Before l Human 100 15:52: Meals, 0 Herm kun UNT/ML 00 Refill(s) Injectable Solution [NovoLog] Buspar Yes 15 mg, PO, Memor ia 4-06 BID, 0 l 15:52: Refill(s) [place] 00 Citalopram Yes 40 mg = 1 Me moria 40 MG Oral 4-06 tab, PO, l Tablet 15:52: Daily, 0 [place] [Celexa] 00 Refill(s) aspirin 81 Yes 81 mg = 1 Me moria mg tablet, 4-06 tab, PO, l enteric 15:52: Daily, # [place] n coated 00 90 tab, 3 Refill(s) Vitamin B Yes 1 tab, PO, Me moria Complex 4-06 Daily, 0 l oral tablet 15:52: Refill(s) H [place] 00 Fluticasone Yes INHALATION Memoria propionate 4-06 , BID, 0 l 0.05 15:52: Refill(s) [place] MG/ACTUAT 00 Dry Powder Inhaler Miralax Yes 17 gm, PO, Jim maya 4-06 Daily, 0 l 15:52: Refill(s) [place] 00 magnesium Yes 500 mg = 1 Me moria oxide 500 4-06 tab, PO, l mg oral 15:52: Daily, 0 [place] n tablet 00 Refill(s) Tylenol Yes 500 mg, Memoria 4-06 PO, 0 l 15:52: Refill(s) [place] 00 200 ACTUAT Yes 2 puff, Jim maya Albuterol 4-06 INHALATION l 0.09 15:52: , Q4H, 0 [place] MG/ACTUAT 00 Refill(s) Dry Powder Inhaler ascorbic [...] [place] 06 0 l 15:52: Refill(s) [place] 00 Docusate Yes 100 mg = 1 Mem oria Sodium 100 4-06 cap, PO, l MG Oral 15:52: BID, 0 [place] Capsule 00 Refill(s) [Colace] NovoLIN Yes SUB-Q, 0 Memori a 70/30 4-06 Refill(s) l 15:52: [place] 00 Metformin Yes 1,000 mg = Me [...] tab, PO, l Tablet 15:52: Q8H, 0 [place] [Zofran] 00 Refill(s) clopidogrel 2017 Yes 75 mg = 1 M emoria 75 MG Oral 4-06 tab, PO, l Tablet 15:52: Daily, 0 [place] [Plavix] 00 Refill(s) amitriptyli 2017 Yes 10 mg = 1 M emoria ne 10 mg 4-06 tab, PO, l oral tablet 15:52: Bedtime, # [place] 00 30 tab, 1 Refill(s) Omeprazole Yes [...] 0 l 15:52: Refill(s) [place] 00 Citalopram 2017 Yes 40 mg = 1 Me [...] , BID, 0 l 0.05 15:52: Refill(s) [place] MG/ACTUAT 00 Dry Powder Inhaler Miralax Yes 17 gm, PO, Jim maya 4-06 Daily, 0 l 15:52: Refill(s) [place] 00 magnesium Yes 500 mg = 1 Me moria oxide 500 - tab, PO, l mg oral 15:52: Daily, 0 [place] n tablet 00 Refill(s) Tylenol Yes 500 mg, Memoria 07-02 PO, 0 l 15:52: Refill(s) [place] 00 200 ACTUAT Yes 2 puff, Jim maya Albuterol 07-02 INHALATION l 0.09 15:52: , Q4H, 0 [place] MG/ACTUAT 00 Refill(s) Dry Powder Inhaler ascorbic Yes 500 mg = 1 Mem oria acid 500 mg -06 tab, PO, l oral tablet 15:52: Daily, 0 [place] 00 Refill(s) Lorazepam Yes 0.5 mg = 1 Me moria 0.5 MG Oral 07-02 tab, PO, l Tablet 15:52: TID, 0 [place] [Ativan] 00 Refill(s) SandoSTATIN Yes IM, q4wk, M emoria LAR [place] 07-02 0 l 15:52: Refill(s) [place] 00 Docusate Yes 100 mg = 1 Mem oria Sodium 100 -06 cap, PO, l MG Oral 15:52: BID, 0 [place] Capsule 00 Refill(s) [Colace] NovoLIN Yes SUB-Q, 0 Memori a 70/30 07-02 Refill(s) l 15:52: N[place] 00 Metformin Yes [...] PO, l Tablet 15:52: BID, # 6 [place] 00 tab, 0 Refill(s) Ondansetron 2017 Yes [...] PO, l oral tablet 15:52: Bedtime, # [place] 00 30 tab, 1 Refill(s) Omeprazole 2017 [...] tab, PO, l Tablet 15:52: Daily, 0 [place] [Celexa] 00 Refill(s) aspirin 81 Yes 81 mg = 1 Me moria mg tablet, 4-06 tab, PO, l enteric 15:52: Daily, # [place] n coated 00 90 tab, 3 Refill(s) Vitamin B Yes 1 tab, PO, Me moria Complex 4-06 Daily, 0 l oral tablet 15:52: Refill(s) [place] 00 Fluticasone Yes INHALATION Memoria propionate 07-02 , BID, 0 l 0.05 15:52: Refill(s) [place] MG/ACTUAT 00 Dry Powder Inhaler Miralax Yes 17 gm, PO, Jim maya 4- Daily, 0 l 15:52: Refill(s) [place] 00 magnesium Yes 500 mg = 1 Me moria oxide 500 - tab, PO, l mg oral 15:52: Daily, 0 [place] n tablet 00 Refill(s) Tylenol Yes 500 mg, Memoria -06 PO, 0 l 15:52: Refill(s) Nader 00 200 ACTUAT Yes 2 puff, Jim maya Albuterol - INHALATION l 0.09 15:52: , Q4H, 0 [place] MG/ACTUAT 00 Refill(s) Dry Powder Inhaler ascorbic Yes 500 mg = 1 Mem oria acid 500 mg 4-06 tab, PO, l oral tablet 15:52: Daily, 0 [place] 00 Refill(s) Lorazepam Yes 0.5 mg = 1 Me moria 0.5 MG Oral 4-06 tab, PO, l Tablet 15:52: TID, 0 [place] [Ativan] 00 Refill(s) SandoSTATIN 2017 Yes IM, [...] PO, l Tablet 15:52: BID, # 6 [place] 00 tab, 0 Refill(s) Ondansetron Yes 4 mg = 1 Me moria 4 MG Oral 4-06 tab, PO, l Tablet 15:52: Q8H, 0 [place] [Zofran] 00 Refill(s) clopidogrel Yes 75 mg = 1 M emoria 75 MG Oral 4-06 tab, PO, l Tablet 15:52: Daily, 0 [place] [Plavix] 00 Refill(s) amitriptyli Yes 10 mg = 1 M emoria ne 10 mg 4-06 tab, PO, l oral tablet 15:52: Bedtime, # [place] 00 30 tab, 1 Refill(s) Omeprazole 2017 [...] ia 4-06 BID, 0 l 15:52: Refill(s) [place] 00 Citalopram Yes 40 mg = 1 Me moria 40 MG Oral 4-06 tab, PO, l Tablet 15:52: Daily, 0 [place] [Celexa] 00 Refill(s) aspirin 81 Yes 81 [...] maya 4-06 Daily, 0 l 15:52: Refill(s) [place] 00 magnesium Yes 500 mg = 1 Me moria oxide 500 4-06 tab, PO, l mg oral 15:52: Daily, 0 [place] n tablet 00 Refill(s) Tylenol Yes 500 mg, Memoria 4-06 PO, 0 l 15:52: Refill(s) [place] 00 200 ACTUAT Yes 2 puff, Jim maya Albuterol 4-06 INHALATION l 0.09 15:52: , Q4H, 0 [place] MG/ACTUAT 00 Refill(s) Dry Powder Inhaler ascorbic Yes 500 mg = 1 Mem oria acid 500 mg 4-06 tab, PO, l oral tablet 15:52: Daily, 0 [place] 00 Refill(s) Lorazepam Yes 0.5 mg = 1 Me moria 0.5 MG Oral 4-06 tab, PO, l Tablet 15:52: TID, 0 [place] [Ativan] 00 Refill(s) SandoSTATIN Yes IM, q4wk, M emoria [place] 406 0 l 15:52: Refill(s) [place] 00 Docusate Yes 100 mg = 1 Mem oria Sodium 100 4-06 cap, PO, l MG Oral 15:52: BID, 0 [place] Capsule 00 Refill(s) [Colace] NovoLIN Yes SUB-Q, [...] tab, PO, l Tablet 15:52: Q8H, 0 [place] [Zofran] 00 Refill(s) clopidogrel Yes 75 mg = 1 M emoria 75 MG Oral 4-06 tab, PO, l Tablet 15:52: Daily, 0 [place] [Plavix] 00 Refill(s) amitriptyli Yes 10 mg = 1 M emoria ne 10 mg 4-06 tab, PO, l oral tablet 15:52: Bedtime, # [place] 00 30 tab, 1 Refill(s) Omeprazole 2017 [...] tab, PO, l Tablet 15:52: Daily, 0 [place] [Lasix] 00 Refill(s) Insulin, Yes SUB-Q, Memoria Aspart, 4-06 TID-Before l Human 100 15:52: Meals, 0 Herm kun UNT/ML 00 Refill(s) Injectable Solution [NovoLog] Buspar Yes 15 mg, PO, Memor ia 4-06 BID, 0 l 15:52: Refill(s) [place] 00 Citalopram Yes 40 mg = 1 Me moria 40 MG Oral 4-06 tab, PO, l Tablet 15:52: Daily, 0 [place] [Celexa] 00 Refill(s) aspirin 81 Yes 81 [...] , BID, 0 l 0.05 15:52: Refill(s) [place] MG/ACTUAT 00 Dry Powder Inhaler Miralax Yes 17 gm, PO, Jim maya 4-06 Daily, 0 l 15:52: Refill(s) [place] 00 magnesium Yes 500 mg = 1 Me moria oxide 500 4- tab, PO, l mg oral 15:52: Daily, 0 [place] n tablet 00 Refill(s) Tylenol Yes 500 mg, Memoria 4-06 PO, 0 l 15:52: Refill(s) [place] 00 200 ACTUAT Yes 2 puff, Jim maya Albuterol 07-02 INHALATION l 0.09 15:52: , Q4H, 0 [place] MG/ACTUAT 00 Refill(s) Dry Powder Inhaler ascorbic Yes 500 mg = 1 Mem oria acid 500 mg -06 tab, PO, l oral tablet 15:52: Daily, 0 [place] 00 Refill(s) Lorazepam Yes 0.5 mg = 1 Me moria 0.5 MG Oral 406 tab, PO, l Tablet 15:52: TID, 0 [place] [Ativan] 00 Refill(s) SandoSTATIN Yes IM, q4wk, M emoria [place] 07-02 0 l 15:52: Refill(s) [place] 00 Docusate Yes 100 mg = 1 Mem oria Sodium 100 4-06 cap, PO, l MG Oral 15:52: BID, 0 [place] Capsule 00 Refill(s) [Colace] NovoLIN Yes SUB-Q, 0 Memori a 70/30 06 Refill(s) l 15:52: [place] 00 Metformin Yes 1,000 mg = Me [...] PO, l Tablet 15:52: BID, # 6 [place] 00 tab, 0 Refill(s) Ondansetron 2017 Yes [...] PO, l oral tablet 15:52: Bedtime, # [place] 00 30 tab, 1 Refill(s) Omeprazole Yes [...] tab, PO, l Tablet 15:52: Daily, 0 [place] [Lasix] 00 Refill(s) Insulin, 2017 Yes SUB-Q, [...] maya - Daily, 0 l 15:52: Refill(s) [place] 00 [...] = 1 Mem oria acid 500 mg - tab, PO, l oral tablet 15:52: Daily, 0 [place] 00 Refill(s) Lorazepam Yes 0.5 mg = 1 Me moria 0.5 MG Oral -06 tab, PO, l Tablet 15:52: TID, 0 [place] [Ativan] 00 Refill(s) SandoSTATIN Yes IM, q4wk, M emoria [place] 07-02 0 l 15:52: Refill(s) [place] 00 Docusate Yes 100 mg = 1 [...] tab, PO, l Tablet 15:52: Daily, 0 [place] [Plavix] 00 Refill(s) amitriptyli Yes 10 mg = 1 M emoria ne 10 mg 4-06 tab, PO, l oral tablet 15:52: Bedtime, # [place] 00 30 tab, 1 Refill(s) Omeprazole Yes [...] tab, PO, l Tablet 15:52: Daily, 0 [place] [Lasix] 00 Refill(s) Insulin, 2017 Yes SUB-Q, [...] maya - Daily, 0 l 15:52: Refill(s) [place] 00 magnesium Yes 500 mg = 1 Me moria oxide 500 - tab, PO, l mg oral 15:52: Daily, 0 [place] n tablet 00 Refill(s) Tylenol Yes 500 mg, Memoria -06 PO, 0 l 15:52: Refill(s) [place] 00 200 ACTUAT Yes 2 puff, Jim maya Albuterol 07-02 INHALATION l 0.09 15:52: , Q4H, 0 [place] MG/ACTUAT 00 Refill(s) Dry Powder Inhaler ascorbic Yes 500 mg = 1 Mem oria acid 500 mg 4-06 tab, PO, l oral tablet 15:52: Daily, 0 [place] 00 Refill(s) Lorazepam 2017 Yes 0.5 mg = 1 Me moria 0.5 MG Oral 4-06 tab, PO, l Tablet 15:52: TID, 0 [place] [Ativan] 00 Refill(s) SandoSTATIN 2017 Yes IM, q4wk, M emoria [place] 4-06 0 l 15:52: Refill(s) [place] 00 Docusate Yes 100 mg = 1 [...] tab, PO, l Tablet 15:52: Daily, 0 [place] [Plavix] 00 Refill(s) amitriptyli Yes 10 mg = 1 M emoria ne 10 mg 4-06 tab, PO, l oral tablet 15:52: Bedtime, # [place] 00 30 tab, 1 Refill(s) Omeprazole Yes [...] tab, PO, l Tablet 15:52: Daily, 0 [place] [Celexa] 00 Refill(s) aspirin 81 Yes 81 mg = 1 Me moria mg tablet, 4-06 tab, PO, l enteric 15:52: Daily, # [place] n coated 00 90 tab, 3 Refill(s) Vitamin B Yes 1 tab, PO, Me moria Complex 4-06 Daily, 0 l oral tablet 15:52: Refill(s) [place] 00 Fluticasone Yes INHALATION Memoria propionate 4-06 , BID, 0 l 0.05 15:52: Refill(s) [place] MG/ACTUAT 00 Dry Powder Inhaler Miralax Yes 17 gm, PO, Jim maya 4-06 Daily, 0 l 15:52: Refill(s) [place] 00 magnesium Yes 500 mg = 1 Me moria oxide 500 4-06 tab, PO, l mg oral 15:52: Daily, 0 [place] n tablet 00 Refill(s) Tylenol 2017- Yes 500 mg, Memoria 4-06 PO, 0 l 15:52: Refill(s) [place] 00 Citalopram Citalopram Yes Pricila 1 tablet [facility] Hydrobromid Hydrobromid [facility] Vitamin D Vitamin D Yes Pricila 1 tablet [facility] Metformin Metformin Yes Pricila 1 tablet [facility] HCl HCl [facility] Vitamin C Vitamin C Yes Pricila as Comm on [facility] Aspirin Aspirin Yes Pricila 1 tablet Comm on Adult Low Adult Low [facility] Gabapentin Gabapentin Yes Pricila 2 capsules [facility] Vitamin B Vitamin B Yes Pricila as Comm [facility] Aspirin Aspirin No 1{table QD Aspirin Adult [...] (PPSV23) 2022-04-30 Completed [facility] - 14:13:00 [facility] FLUZONE HIGH DOSE FLUZONE HIGH DOSE 2021-12-30 Completed [facility] - OVER 65 OVER 65 14:13:00 [facility] FLUZONE HIGH DOSE FLUZONE HIGH DOSE 2021-12-30 Completed [facility] - OVER 65 OVER 65 14:13:00 [facility] FLUZONE HIGH DOSE FLUZONE HIGH DOSE 2021-12-30 Completed [facility] - OVER 65 OVER 65 14:13:00 [facility] FLUZONE HIGH DOSE FLUZONE HIGH DOSE 2021-12-30 Completed [facility] - OVER 65 OVER 65 14:13:00 [facility] FLUZONE HIGH DOSE FLUZONE HIGH DOSE 2021-12-30 Completed [facility] - OVER 65 OVER 65 14:13:00 [facility] FLUZONE HIGH DOSE FLUZONE HIGH DOSE 2021-12-30 Completed [facility] - OVER 65 OVER 65 14:13:00 [facility] FLUZONE HIGH DOSE FLUZONE HIGH DOSE 2021-12-30 Completed [facility] - OVER 65 OVER 65 14:13:00 [facility] FLUZONE HIGH DOSE FLUZONE HIGH DOSE 2021-12-30 Completed [facility] - OVER 65 OVER 65 14:13:00 [facility] FLUZONE HIGH DOSE FLUZONE HIGH DOSE 2021-12-30 Completed [facility] - OVER 65 OVER 65 14:13:00 [facility] FLUZONE HIGH DOSE FLUZONE HIGH DOSE 2021-12-30 Completed [facility] - OVER 65 OVER 65 14:13:00 [facility] FLUZONE HIGH DOSE FLUZONE HIGH DOSE 2021-12-30 Completed [facility] - OVER 65 OVER 65 14:13:00 [facility] FLUZONE HIGH DOSE FLUZONE HIGH DOSE 2021-12-30 Completed [facility] - OVER 65 OVER 65 14:13:00 [facility] FLUZONE HIGH DOSE FLUZONE HIGH DOSE 2021-12-30 Completed [facility] - OVER 65 OVER 65 14:13:00 [facility] FLUZONE HIGH DOSE FLUZONE HIGH DOSE 2021-12-30 Completed [facility] - OVER 65 OVER 65 14:13:00 [facility] FLUZONE HIGH DOSE FLUZONE HIGH DOSE 2021-12-30 Completed [facility] - OVER 65 OVER 65 14:13:00 [facility] FLUZONE HIGH DOSE FLUZONE HIGH DOSE 2021-12-30 Completed [facility] - OVER 65 OVER 65 14:13:00 [facility] FLUZONE HIGH DOSE FLUZONE HIGH DOSE 2021-12-30 Completed [facility] - OVER 65 OVER 65 14:13:00 [facility] FLUZONE HIGH DOSE FLUZONE HIGH DOSE 2021-12-30 Completed [facility] - OVER 65 OVER 65 14:13:00 [facility] FLUZONE HIGH DOSE FLUZONE HIGH DOSE 2021-12-30 Completed [facility] - OVER 65 OVER 65 14:13:00 [facility] FLUZONE HIGH DOSE FLUZONE HIGH DOSE 2021-12-30 Completed [facility] - OVER 65 OVER 65 14:13:00 [facility] FLUZONE HIGH DOSE FLUZONE HIGH DOSE 2021-12-30 Completed [facility] - OVER 65 OVER 65 14:13:00 [facility] FLUZONE HIGH DOSE FLUZONE HIGH DOSE 2021-12-30 Completed [facility] - OVER 65 OVER 65 14:13:00 [facility] FLUZONE HIGH DOSE FLUZONE HIGH DOSE 2021-12-30 Completed [facility] - OVER 65 OVER 65 14:13:00 [facility] FLUZONE HIGH DOSE FLUZONE HIGH DOSE 2021-12-30 Completed [facility] - OVER 65 OVER 65 14:13:00 [facility] FLUZONE HIGH DOSE FLUZONE HIGH DOSE 2021-12-30 Completed [facility] - OVER 65 OVER 65 14:13:00 [facility] Shingrix Shingrix 2021-01-26 Completed [facility] - 09:39:00 [facility] Shingrix Shingrix 2021-01-26 Completed [facility] - 09:39:00 [facility] Shingrix Shingrix 2021-01-26 Completed [facility] - 09:39:00 [facility] Shingrix Shingrix 2021-01-26 Completed [facility] - 09:39:00 [facility] Shingrix Shingrix 2021-01-26 Completed [facility] - 09:39:00 [facility] Shingrix Shingrix 2021-01-26 Completed [facility] - 09:39:00 [facility] Shingrix Shingrix 2021-01-26 Completed [facility] - 09:39:00 [facility] Shingrix Shingrix 2021-01-26 Completed [facility] - 09:39:00 [facility] Shingrix Shingrix 2021-01-26 Completed [facility] - 09:39:00 [facility] Shingrix Shingrix 2021-01-26 Completed [facility] - 09:39:00 [facility] Shingrix Shingrix 2021-01-26 Completed [facility] - 09:39:00 [facility] Shingrix Shingrix 2021-01-26 Completed [facility] - 09:39:00 [facility] Shingrix Shingrix 2021-01-26 Completed [facility] - 09:39:00 [facility] Shingrix Shingrix 2021-01-26 Completed [facility] - 09:39:00 [facility] Shingrix Shingrix 2021-01-26 Completed [facility] - 09:39:00 [facility] Shingrix Shingrix 2021-01-26 Completed [facility] - 09:39:00 [facility] Shingrix Shingrix 2021-01-26 Completed [facility] - 09:39:00 [facility] Shingrix Shingrix 2021-01-26 Completed [facility] - 09:39:00 [facility] Shingrix Shingrix 2021-01-26 Completed [facility] - 09:39:00 [facility] Shingrix Shingrix 2021-01-26 Completed [facility] - 09:39:00 [facility] Shingrix Shingrix 2021-01-26 Completed [facility] - 09:39:00 [facility] Shingrix Shingrix 2021-01-26 Completed [facility] - 09:39:00 [facility] Shingrix Shingrix 2021-01-26 Completed [facility] - 09:39:00 [facility] Shingrix Shingrix 2021-01-26 Completed [facility] - 09:39:00 [facility] Shingrix Shingrix 2021-01-26 Completed [facility] - 09:39:00 [facility] Shingrix Shingrix 2021-01-26 Completed [facility] - 09:39:00 [facility] Shingrix Shingrix 2021-01-26 Completed [facility] - 09:39:00 [facility] Shingrix Shingrix 2021-01-26 Completed [facility] - 09:39:00 [facility] Shingrix Shingrix 2021-01-26 Completed [facility] - 09:39:00 [facility] Shingrix Shingrix 2021-01-26 Completed [facility] - 09:39:00 [facility] Shingrix Shingrix 2021-01-26 Completed [facility] - 09:39:00 [facility] Shingrix Shingrix 2021-01-26 Completed [facility] - 09:39:00 [facility] Shingrix Shingrix 2021-01-26 Completed [facility] - 09:39:00 [facility] Shingrix Shingrix 2021-01-26 Completed [facility] - 09:39:00 [facility] Shingrix Shingrix 2021-01-26 Completed [facility] - 09:39:00 [facility] Shingrix Shingrix 2021-01-26 Completed [facility] - 09:39:00 [facility] Shingrix Shingrix 2021-01-26 Completed [facility] - 09:39:00 [facility] Shingrix Shingrix 2021-01-26 Completed [facility] - 09:39:00 [facility] Shingrix Shingrix 2021-01-26 Completed [facility] - 09:39:00 [facility] Shingrix Shingrix 2021-01-26 Completed [facility] - 09:39:00 [facility] Shingrix Shingrix 2021-01-26 Completed [facility] - 09:39:00 [facility] Shingrix Shingrix 2021-01-26 Completed [facility] - 09:39:00 [facility] Shingrix Shingrix 2021-01-26 Completed [facility] - 09:39:00 [facility] Shingrix Shingrix 2021-01-26 Completed [facility] - 09:39:00 [facility] Shingrix Shingrix 2021-01-26 Completed [facility] - 09:39:00 [facility] Shingrix Shingrix 2021-01-26 Completed [facility] - 09:39:00 [facility] Shingrix Shingrix 2021-01-26 Completed [facility] - 09:39:00 [facility] Shingrix Shingrix 2021-01-26 Completed [facility] - 09:39:00 [facility] Shingrix Shingrix 2021-01-26 Completed [facility] - 09:39:00 [facility] Shingrix Shingrix 2021-01-26 Completed [facility] - 09:39:00 [facility] Shingrix Shingrix 2021-01-26 Completed [facility] - 09:39:00 [facility] Shingrix Shingrix 2021-01-26 Completed [facility] - 09:39:00 [facility] Shingrix Shingrix 2021-01-26 Completed [facility] - 09:39:00 [facility] Shingrix Shingrix 2021-01-26 Completed [facility] - 09:39:00 [facility] Shingrix Shingrix 2021-01-26 Completed [facility] - 09:39:00 [facility] Shingrix Shingrix 2021-01-26 Completed [facility] - 09:39:00 [facility] Shingrix Shingrix 2021-01-26 Completed [facility] - 09:39:00 [facility] Shingrix Shingrix 2021-01-26 Completed [facility] - 09:39:00 [facility] Shingrix Shingrix 2021-01-26 Completed [facility] - 09:39:00 [facility] Shingrix Shingrix 2021-01-26 Completed [facility] - 09:39:00 [facility] Shingrix Shingrix 2021-01-26 Completed [facility] - 09:39:00 [facility] Shingrix Shingrix 2021-01-26 Completed [facility] - 09:39:00 [facility] Shingrix Shingrix 2021-01-26 Completed [facility] - 09:39:00 [facility] Shingrix Shingrix 2021-01-26 Completed [facility] - 09:39:00 [facility] Shingrix Shingrix 2021-01-26 Completed [facility] - 09:39:00 [facility] Fluzone Fluzone 2020-12-26 Completed [facility] - 09:38:00 [facility] Fluzone Fluzone 2020-12-26 Completed [facility] - 09:38:00 [facility] Fluzone Fluzone 2020-12-26 Completed [facility] - 09:38:00 [facility] Fluzone Fluzone 2020-12-26 Completed [facility] - 09:38:00 [facility] Fluzone Fluzone 2020-12-26 Completed [facility] - 09:38:00 [facility] Fluzone Fluzone 2020-12-26 Completed [facility] - 09:38:00 [facility] Fluzone Fluzone 2020-12-26 Completed [facility] - 09:38:00 [facility] Fluzone Fluzone 2020-12-26 Completed [facility] - 09:38:00 [facility] Fluzone Fluzone 2020-12-26 Completed [facility] - 09:38:00 [facility] Fluzone Fluzone 2020-12-26 Completed [facility] - 09:38:00 [facility] Fluzone Fluzone 2020-12-26 Completed [facility] - 09:38:00 [facility] Fluzone Fluzone 2020-12-26 Completed [facility] - 09:38:00 [facility] Fluzone Fluzone 2020-12-26 Completed [facility] - 09:38:00 [facility] Fluzone Fluzone 2020-12-26 Completed [facility] - 09:38:00 [facility] Fluzone Fluzone 2020-12-26 Completed [facility] - 09:38:00 [facility] Fluzone Fluzone 2020-12-26 Completed [facility] - 09:38:00 [facility] Fluzone Fluzone 2020-12-26 Completed [facility] - 09:38:00 [facility] Fluzone Fluzone 2020-12-26 Completed [facility] - 09:38:00 [facility] Fluzone Fluzone 2020-12-26 Completed [facility] - 09:38:00 [facility] Fluzone Fluzone 2020-12-26 Completed [facility] - 09:38:00 [facility] Fluzone Fluzone 2020-12-26 Completed [facility] - 09:38:00 [facility] Fluzone Fluzone 2020-12-26 Completed [facility] - 09:38:00 [facility] Fluzone Fluzone 2020-12-26 Completed [facility] - 09:38:00 [facility] Fluzone Fluzone 2020-12-26 Completed [facility] - 09:38:00 [facility] Fluzone Fluzone 2020-12-26 Completed [facility] - 09:38:00 [facility] Fluzone Fluzone 2020-12-26 Completed [facility] - 09:38:00 [facility] Fluzone Fluzone 2020-12-26 Completed [facility] - 09:38:00 [facility] Fluzone Fluzone 2020-12-26 Completed [facility] - 09:38:00 [facility] Fluzone Fluzone 2020-12-26 Completed [facility] - 09:38:00 [facility] Fluzone Fluzone 2020-12-26 Completed [facility] - 09:38:00 [facility] Fluzone Fluzone 2020-12-26 Completed [facility] - 09:38:00 [facility] Fluzone Fluzone 2020-12-26 Completed [facility] - 09:38:00 [facility] Fluzone Fluzone 2020-12-26 Completed [facility] - 09:38:00 [facility] Fluzone Fluzone 2020-12-26 Completed [facility] - 09:38:00 [facility] Fluzone Fluzone 2020-12-26 Completed [facility] - 09:38:00 [facility] Fluzone Fluzone 2020-12-26 Completed [facility] - 09:38:00 [facility] Fluzone Fluzone 2020-12-26 Completed [facility] - 09:38:00 [facility] Fluzone Fluzone 2020-12-26 Completed [facility] - 09:38:00 [facility] Fluzone Fluzone 2020-12-26 Completed [facility] - 09:38:00 [facility] Fluzone Fluzone 2020-12-26 Completed [facility] - 09:38:00 [facility] Fluzone Fluzone 2020-12-26 Completed [facility] - 09:38:00 [facility] Fluzone Fluzone 2020-12-26 Completed [facility] - 09:38:00 [facility] Fluzone Fluzone 2020-12-26 Completed [facility] - 09:38:00 [facility] Fluzone Fluzone 2020-12-26 Completed [facility] - 09:38:00 [facility] Fluzone Fluzone 2020-12-26 Completed [facility] - 09:38:00 [facility] Fluzone Fluzone 2020-12-26 Completed [facility] - 09:38:00 [facility] Fluzone Fluzone 2020-12-26 Completed [facility] - 09:38:00 [facility] Fluzone Fluzone 2020-12-26 Completed [facility] - 09:38:00 [facility] Fluzone Fluzone 2020-12-26 Completed [facility] - 09:38:00 [facility] Fluzone Fluzone 2020-12-26 Completed [facility] - 09:38:00 [facility] Fluzone Fluzone 2020-12-26 Completed [facility] - 09:38:00 [facility] Fluzone Fluzone 2020-12-26 Completed [facility] - 09:38:00 [facility] Fluzone Fluzone 2020-12-26 Completed [facility] - 09:38:00 [facility] Fluzone Fluzone 2020-12-26 Completed [facility] - 09:38:00 [facility] Fluzone Fluzone 2020-12-26 Completed [facility] - 09:38:00 [facility] Fluzone Fluzone 2020-12-26 Completed [facility] - 09:38:00 [facility] Fluzone Fluzone 2020-12-26 Completed [facility] - 09:38:00 [facility] Fluzone Fluzone 2020-12-26 Completed [facility] - 09:38:00 [facility] Fluzone Fluzone 2020-12-26 Completed [facility] - 09:38:00 [facility] Fluzone Fluzone 2020-12-26 Completed [facility] - 09:38:00 [facility] Fluzone Fluzone 2020-12-26 Completed [facility] - 09:38:00 [facility] Fluzone Fluzone 2020-12-26 Completed [facility] - 09:38:00 [facility] Fluzone Fluzone 2020-12-26 Completed [facility] - 09:38:00 [facility] Fluzone Fluzone 2020-12-26 Completed [facility] - 09:38:00 [facility] Fluzone Fluzone 2020-12-26 Completed [facility] - 09:38:00 [facility] SARS-COV-2 COVID-19 2020-11-15 Completed [facility] MODERNA VACCINE 00:00:00 [facility] SARS-COV-2 COVID-19 2020-11-15 Completed [facility] of MODERNA VACCINE 00:00:00 [facility] SARS-COV-2 COVID-19 2020-06-03 Completed [facility] of MODERNA VACCINE 00:00:00 [facility] SARS-COV-2 COVID-19 2020-06-03 Completed [facility] of MODERNA VACCINE 00:00:00 [facility] SARS-COV-2 COVID-19 2020-05-06 Completed [facility] of MODERNA VACCINE 00:00:00 [facility] SARS-COV-2 COVID-19 2020-05-06 Completed [facility] of MODERNA VACCINE 00:00:00 [facility] Prevnar 13 (PCV13) Prevnar 13 (PCV13) 2020-03-28 [facility]00 [facility] Prevnar 13 (PCV13) Prevnar 13 (PCV13) 2020-03-28 [facility]pleted [facility] 15:01:00 [facility] Prevnar 13 (PCV13) Prevnar 13 (PCV13) 2020-03-28 [facility]pleted [facility] 15:01:00 [facility] Prevnar 13 (PCV13) Prevnar 13 (PCV13) 2020-03-28 Completed [facility] 15:01:00 [facility] Prevnar 13 (PCV13) Prevnar 13 (PCV13) 2020-03-28 Completed [facility] 15:01:00 [facility] Prevnar 13 (PCV13) Prevnar 13 (PCV13) 2020-03-28 [facility]pleted [facility] 15:01:00 [facility] Prevnar 13 (PCV13) Prevnar 13 (PCV13) 2020-03-28 [facility]pleted [facility] 15:01:00 [facility] Prevnar 13 (PCV13) Prevnar 13 (PCV13) 2020-03-28 [facility]pleted [facility] 15:01:00 [facility] Prevnar 13 (PCV13) Prevnar 13 (PCV13) 2020-03-28 Completed [facility] 15:01:00 [facility] Prevnar 13 (PCV13) Prevnar 13 (PCV13) 2020-03-28 Completed [facility] 15:01:00 [facility] Prevnar 13 (PCV13) Prevnar 13 (PCV13) 2020-03-28 Completed [facility] 15:01:00 [facility] Prevnar 13 (PCV13) Prevnar 13 (PCV13) 2020-03-28 Completed [facility] 15:01:00 [facility] Prevnar 13 (PCV13) Prevnar 13 (PCV13) 2020-03-28 Completed [facility] 15:01:00 [facility] Prevnar 13 (PCV13) Prevnar 13 (PCV13) 2020-03-28 Completed [facility] 15:01:00 [facility] Prevnar 13 (PCV13) Prevnar 13 (PCV13) 2020-03-28 [facility]pleted [facility] 15:01:00 [facility] Prevnar 13 (PCV13) Prevnar 13 (PCV13) 2020-03-28 [facility]pleted [facility] 15:01:00 [facility] Prevnar 13 (PCV13) Prevnar 13 (PCV13) 2020-03-28 [facility]pleted [facility] 15:01:00 [facility] Prevnar 13 (PCV13) Prevnar 13 (PCV13) 2020-03-28 Completed [facility] 15:01:00 [facility] Prevnar 13 (PCV13) Prevnar 13 (PCV13) 2020-03-28 Completed [facility] 15:01:00 [facility] Prevnar 13 (PCV13) Prevnar 13 (PCV13) 2020-03-28 Completed [facility] 15:01:00 [facility] Prevnar 13 (PCV13) Prevnar 13 (PCV13) 2020-03-28 [facility]pleted [facility] 15:01:00 [facility] Prevnar 13 (PCV13) Prevnar 13 (PCV13) 2020-03-28 Completed [facility] 15:01:00 [facility] Prevnar 13 (PCV13) Prevnar 13 (PCV13) 2020-03-28 Completed [facility] 15:01:00 [facility] Prevnar 13 (PCV13) Prevnar 13 (PCV13) 2020-03-28 Completed [facility] 15:01:00 [facility] Prevnar 13 (PCV13) Prevnar 13 (PCV13) 2020-03-28 Completed [facility] 15:01:00 [facility] Prevnar 13 (PCV13) Prevnar 13 (PCV13) 2020-03-28 Completed [facility] 15:01:00 [facility] Prevnar 13 (PCV13) Prevnar 13 (PCV13) 2020-03-28 Completed [facility] 15:01:00 [facility] Prevnar 13 (PCV13) Prevnar 13 (PCV13) 2020-03-28 Completed [facility] 15:01:00 [facility] Prevnar 13 (PCV13) Prevnar 13 (PCV13) 2020-03-28 Completed [facility] 15:01:00 [facility] Prevnar 13 (PCV13) Prevnar 13 (PCV13) 2020-03-28 Completed [facility] 15:01:00 [facility] Prevnar 13 (PCV13) Prevnar 13 (PCV13) 2020-03-28 Completed [facility] 15:01:00 [facility] Prevnar 13 (PCV13) Prevnar 13 (PCV13) 2020-03-28 Completed [facility] 15:01:00 [facility] Prevnar 13 (PCV13) Prevnar 13 (PCV13) 2020-03-28 Completed [facility] 15:01:00 [facility] Prevnar 13 (PCV13) Prevnar 13 (PCV13) 2020-03-28 Completed [facility] 15:01:00 [facility] Prevnar 13 (PCV13) Prevnar 13 (PCV13) 2020-03-28 [facility]pleted [facility] 15:01:00 [facility] Prevnar 13 (PCV13) Prevnar 13 (PCV13) 2020-03-28 [facility]pleted [facility] 15:01:00 [facility] Prevnar 13 (PCV13) Prevnar 13 (PCV13) 2020-03-28 Completed [facility] 15:01:00 [facility] Prevnar 13 (PCV13) Prevnar 13 (PCV13) 2020-03-28 Completed [facility] 15:01:00 [facility] Prevnar 13 (PCV13) Prevnar 13 (PCV13) 2020-03-28 Completed [facility] 15:01:00 [facility] Prevnar 13 (PCV13) Prevnar 13 (PCV13) 2020-03-28 Completed [facility] 15:01:00 [facility] Prevnar 13 (PCV13) Prevnar 13 (PCV13) 2020-03-28 Completed [facility] 15:01:00 [facility] Prevnar 13 (PCV13) Prevnar 13 (PCV13) 2020-03-28 Completed [facility] 15:01:00 [facility] Prevnar 13 (PCV13) Prevnar 13 (PCV13) 2020-03-28 Completed [facility] 15:01:00 [facility] Prevnar 13 (PCV13) Prevnar 13 (PCV13) 2020-03-28 Completed [facility] 15:01:00 [facility] Prevnar 13 (PCV13) Prevnar 13 (PCV13) 2020-03-28 Completed [facility] 15:01:00 [facility] Prevnar 13 (PCV13) Prevnar 13 (PCV13) 2020-03-28 Completed [facility] 15:01:00 [facility] Prevnar 13 (PCV13) Prevnar 13 (PCV13) 2020-03-28 Completed [facility] 15:01:00 [facility] Prevnar 13 (PCV13) Prevnar 13 (PCV13) 2020-03-28 Completed [facility] 15:01:00 [facility] Prevnar 13 (PCV13) Prevnar 13 (PCV13) 2020-03-28 Completed [facility] 15:01:00 [facility] Prevnar 13 (PCV13) Prevnar 13 (PCV13) 2020-03-28 Completed [facility] 15:01:00 [facility] Prevnar 13 (PCV13) Prevnar 13 (PCV13) 2020-03-28 Completed [facility] 15:01:00 [facility] Prevnar 13 (PCV13) Prevnar 13 (PCV13) 2020-03-28 Completed [facility] 15:01:00 [facility] Prevnar 13 (PCV13) Prevnar 13 (PCV13) 2020-03-28 Completed [facility] 15:01:00 [facility] Prevnar 13 (PCV13) Prevnar 13 (PCV13) 2020-03-28 Completed [facility] 15:01:00 [facility] Prevnar 13 (PCV13) Prevnar 13 (PCV13) 2020-03-28 Completed [facility] 15:01:00 [facility] Prevnar 13 (PCV13) Prevnar 13 (PCV13) 2020-03-28 Completed [facility] 15:01:00 [facility] Prevnar 13 (PCV13) Prevnar 13 (PCV13) 2020-03-28 Completed [facility] 15:01:00 [facility] Prevnar 13 (PCV13) Prevnar 13 (PCV13) 2020-03-28 Completed [facility] 15:01:00 [facility] Prevnar 13 (PCV13) Prevnar 13 (PCV13) 2020-03-28 Completed [facility] 15:01:00 [facility] Prevnar 13 (PCV13) Prevnar 13 (PCV13) 2020-03-28 Completed [facility] - 15:01:00 [facility] Prevnar 13 (PCV13) Prevnar 13 (PCV13) 2020-03-28 Completed [facility] - 15:01:00 [facility] Prevnar 13 (PCV13) Prevnar 13 (PCV13) 2020-03-28 Completed [facility] 15:01:00 [facility] Prevnar 13 (PCV13) Prevnar 13 (PCV13) 2020-03-28 Completed [facility] - 15:01:00 [facility] Prevnar 13 (PCV13) Prevnar 13 (PCV13) 2020-03-28 Completed [facility] - 15:01:00 [facility] Prevnar 13 (PCV13) Prevnar 13 (PCV13) 2020-03-28 Completed [facility] - 15:01:00 [facility] Prevnar 13 (PCV13) Prevnar 13 (PCV13) 2020-03-28 Completed [facility] 15:01:00 [facility] Influenza High Dose 2020-01-11 Completed [facility] [place] 00:00:00 [facility] Influenza High Dose 2020-01-11 Completed [facility] 00:00:00 [facility] Influenza High Dose 2019-01-20 Completed [facility] of 00:00:00 [facility] Pneumococcal 2019-01-20 Completed University o f Polysaccharide, 00:00:00 [place] [facility] PPSV23 (PNEUMOVAX) Branch Influenza High Dose 2019-01-20 Completed Unive rsity of 00:00:00 [facility] Pneumococcal 2019-01-20 Completed [facility] f Polysaccharide, [...] Comments Source height 2022-04-30 14:00:00 63.00 [in_i] [facility] weight 2022-04-30 14:00:00 139 [lb_av] [facility] temperature 2022-04-30 14:00:00 97.3 [degF] [facility] bmi 2022-04-30 14:00:00 24.62 kg/m2 [facility] oximetry 2022-04-30 14:00:00 95 % [facility] respiratory rate 2022-04-30 14:00:00 16 /min [facility] on [facility] blood pressure 2022-04-30 14:00:00 132 mm[Hg] [facility] - systolic [facility] blood pressure 2022-04-30 14:00:00 76 mm[Hg] [facility] - diastolic [facility] Systolic blood 2022-03-17 20:44:00 143 mm[Hg] [facility] Diastolic blood 2022-03-17 20:44:00 73 mm[Hg] [facility] pressure Medicine Heart rate 2022-03-17 20:44:00 92 /min [facility] height 2022-03-17 20:44:00 157[facility]5 [facility] Body weight 2022-03-17 20:44:00 62.596 [facility] BMI 2022-03-17 20:44:00 25.24 kg/m2 [facility] Systolic blood 2022-01-22 16:12:00 140 mm[Hg] [facility] pressure Medicine Diastolic blood 2022-01-22 16:12:00 60 mm[Hg] [facility] Medicine Heart rate 2022-01-22 16:12:00 80 /min [facility] Body temperature 2022-01-22 16:12:00 37 Tamara [facility] Body height 2022-01-22 16:12:00 157.5 cm [facility] weight 2022-01-22 16:12:[address] [facility] BMI 2022-01-22 16:12:00 25.57 kg/m2 [facility] height 2022-01-16 11:30:00 63.00 [in_i] [facility] weight 2022-01-16 11:30:00 134 [lb_av] [facility] bmi 2022-01-16 11:30:00 23.73 kg/m2 [facility] blood pressure 2022-01-16 11:30:00 115 mm[Hg] [facility] - systolic [facility] blood pressure 2022-01-16 11:30:00 65 mm[Hg] [facility] - diastolic [facility] height 2021-12-30 13:50:00 63.00 [in_i] [facility] weight 2021-12-30 13:50:00 135 [lb_av] [facility] temperature 2021-12-30 13:50:00 98.4 [degF] [facility] bmi 2021-12-30 13:50:00 23.91 kg/m2 [facility] oximetry 2021-12-30 13:50:00 93 % [facility] respiratory rate 2021-12-30 13:50:00 16 /min [facility] blood pressure 2021-12-30 13:50:00 136 mm[Hg] [facility] - systolic [facility] blood pressure 2021-12-30 13:50:00 60 mm[Hg] [facility] - diastolic [facility] height 2021-12-17 15:20:00 63.00 [in_i] [facility] weight 2021-12-17 15:20:00 137.6 [lb_av] [facility] bmi 2021-12-17 15:20:00 24.37 kg/m2 [facility] height 2021-11-10 16:20:00 63.00 [in_i] [facility] weight 2021-11-10 16:20:00 137.6 [lb_av] [facility] bmi 2021-11-10 16:20:00 24.37 kg/m2 [facility] height 2021-10-08 09:30:00 63.00 [in_i] [facility] weight 2021-10-08 09:30:00 137.6 [lb_av] [facility] bmi 2021-10-08 09:30:00 24.37 kg/m2 [facility] height 2021-09-24 10:20:00 63.00 [in_i] [facility] weight 2021-09-24 10:20:00 137.6 [lb_av] [facility] temperature 2021-09-24 10:20:00 97.4 [degF] [facility] bmi 2021-09-24 10:20:00 24.37 kg/m2 [facility] o[facility] 2021-09-24 10:20:00 97 % [facility] respiratory rate 2021-09-24 10:20:00 17 /min [facility] blood pressure 2021-09-24 10:20:00 132 mm[Hg] [facility] - systolic [facility] blood pressure 2021-09-24 10:20:00 70 mm[Hg] [facility] - diastolic [facility] height 2021-08-20 13:50:00 63.00 [in_i] [facility] weight 2021-08-20 13:50:00 143.3 [lb_av] [facility] temperature 2021-08-20 13:50:00 98.1 [degF] [facility] bmi 2021-08-20 13:50:00 25.38 kg/m2 [facility] oximetry 2021-08-20 13:50:00 97 % [facility] respiratory rate 2021-08-20 13:50:00 17 /min [facility] blood pressure 2021-08-20 13:50:00 138 mm[Hg] [facility] - systolic [facility] blood pressure 2021-08-20 13:50:00 61 mm[Hg] [facility] - diastolic [facility] height 2021-08-20 14:00:00 63.00 [in_i] [facility] weight 2021-08-20 14:00:00 143.3 [lb_av] [facility] temperature 2021-08-20 14:00:00 98.1 [degF] [facility] bmi 2021-08-20 14:00:00 25.38 kg/m2 [facility] oximetry 2021-08-20 14:00:00 97 % [facility] respiratory rate 2021-08-20 14:00:00 17 /min [facility] blood pressure 2021-08-20 14:00:00 138 mm[Hg] [facility] - systolic [facility] blood pressure 2021-08-20 14:00:00 61 mm[Hg] [facility] - diastolic [facility] Systolic blood 2021-08-04 05:00:00 140 mm[Hg] [facility] Diastolic blood 2021-08-04 05:00:00 47 mm[Hg] Unive rsity [facility] Heart rate 2021-08-04 05:00:00 72 /min [facility] Respiratory rate 2021-08-04 05:00:00 15 /min Univ [facility] Oxygen saturation in 2021-08-04 05:00:00 97 /min [facility] Arterial blood by [facility] Pulse oximetry Branch Body temperature 2021-08-04 03:12:[address] [facility] Body height 2021-08-04 03:12:00 157.5 cm [facility] Body weight 2021-08-04 03:12:00 64.411 kg [facility] BMI 2021-08-04 03:12:00 25.97 kg/m2 [facility] height 2021-07-30 08:40:00 63.00 [in_i] [facility] weight 2021-07-30 08:40:00 145 [lb_av] [facility] temperature 2021-07-30 08:40:00 97.5 [degF] [facility] bmi 2021-07-30 08:40:00 25.68 kg/m2 [facility] blood pressure 2021-07-30 08:40:00 132 mm[Hg] [facility] - systolic [facility] blood pressure 2021-07-30 08:40:00 76 mm[Hg] [facility] - diastolic [facility] height 2021-04-11 11:00:00 63.00 [in_i] [facility] weight 2021-04-11 11:00:00 148 [lb_av] [facility] temperature 2021-04-11 11:00:00 98 [degF] [facility] bmi 2021-04-11 11:00:00 26.21 kg/m2 [facility] height 2021-03-14 10:00:00 63.00 [in_i] [facility] weight 2021-03-14 10:00:00 148.1 [lb_av] [facility] temperature 2021-03-14 10:00:00 97.3 [degF] [facility] bmi 2021-03-14 10:00:00 26.23 kg/m2 [facility] oximetry 2021-03-14 10:00:00 97 % [facility] respiratory rate 2021-03-14 10:00:00 16 /min [facility] blood pressure 2021-03-14 10:00:00 135 mm[Hg] [facility] - systolic [facility] blood pressure 2021-03-14 10:00:00 62 mm[Hg] [facility] - diastolic [facility] Systolic blood 2021-03-11 22:37:00 113 mm[Hg] Univer sity of pressure [facility] Diastolic blood 2021-03-11 22:37:00 47 mm[Hg] Unive rsity of pressure [facility] Heart rate 2021-03-11 22:37:00 82 /min [facility] Body height 2021-03-11 22:37:00 160 cm [facility] Body weight 2021-03-11 22:37:00 65.772 kg [facility] BMI 2021-03-11 22:37:00 25.69 kg/m2 [facility] height 2020-12-11 14:40:00 63.00 [in_i] [facility] weight 2020-12-11 14:40:00 141.2 [lb_av] [facility] temperature 2020-12-11 14:40:00 97.4 [degF] [facility] bmi 2020-12-11 14:40:00 25.01 kg/m2 [facility] oximetry 2020-12-11 14:40:00 96 % [facility] respiratory rate 2020-12-11 14:40:00 16 /min [facility] blood pressure 2020-12-11 14:40:00 132 mm[Hg] [facility] - systolic [facility] blood pressure 2020-12-11 14:40:00 61 mm[Hg] [facility] - diastolic [facility] Systolic blood 2022-01-26 11:00:00 90 mm[Hg] [facility] Diastolic blood 2022-01-26 11:00:00 50 mm[Hg] [facility] Heart rate 2022-01-26 11:00:00 82 /min [facility] Body temperature 2022-01-26 11:00:00 36.44 Tamara [facility] Respiratory rate 2022-01-26 11:00:00 18 /min [facility] Oxygen saturation in 2022-01-26 11:00:00 94 /min [facility] Arterial blood by Medical Ce nter Pulse oximetry Weight 2016-10-01 15:38:00 Liliya Doe BMI Calculated 2016-10-01 15:38:00 Penny Garcia Height 2016-10-01 15:38:00 160.02 cm Liliya Doe Respitory Rate 2016-10-01 15:38:00 Penny Garcia Heart Rate 2016-10-01 15:38:00 Liliya Doe Systolic (mm Hg) 2016-10-01 15:38:00 Jim Doe Diastolic (mm Hg) 2016-10-01 15:38:00 Mem orimarielena Doe Height 2016-07-02 15:24:00 160.02 cm Liliya Doe Respitory Rate 2016-07-02 15:24:00 Penny Garcia Heart Rate 2016-07-02 15:24:00 Liliya Doe BMI Calculated 2016-07-02 15:24:00 Penny Garcia Weight 2016-07-02 15:24:00 Liliya Doe Systolic (mm Hg) 2016-07-02 15:24:00 Jim Doe Diastolic (mm Hg) 2016-07-02 15:24:00 [facility] Procedure Date / Time Performing Clinician Source Performed CBC W/AUTO DIFF WITH 2022-03-17 15:15:34 [facility] COMPREHENSIVE METABOLIC 2022-03-17 15:15:34 [facility] FERRITIN 2022-03-17 15:15:34 [facility] IRON+TIBC+%SAT 2022-03-17 15:15:34 [facility] COLONOSCOPY 2022-02-16 09:30:00 [facility] 2022-01-26 23:54:00 [facility] ANTIBODY IDENTIFICATION 2022-01-26 16:44:00 [facility] POCT-GLUCOSE METER 2022-01-26 10:35:00 Asuncion, [facility] POCT-GLUCOSE METER 2022-01-26 09:28:00 Asuncion [facility] REPORT OF PROCEDURE - 2022-01-26 09:[facility] ENTEROSCOPY, WITH 2022-01-26 08:[facility] CBC (HEMOGRAM ONLY) 2022-01-26 04:29:00 Asuncion lita [facility] BASIC METABOLIC PANEL 2022-01-26 04:29:00 Asuncion, lita [facility]rier [facility] MAGNESIUM 2022-01-26 04:29:00 Asuncion, [facility] POCT-GLUCOSE METER 2022-01-26 04:17:00 Asuncion, [facility] POCT-GLUCOSE METER 2022-01-25 22:12:00 Asuncion, [facility] ECG 12-LEAD 2022-01-25 21:31:02 Unknown, [facility] ECG 12-LEAD 2022-01-25 21:31:02 Unknown, [facility] ECG 12-LEAD 2022-01-25 21:30:43 Gricel Little [facility] ECG 12-LEAD 2022-01-25 21:30:43 Unknown, 7 [facility] ECG 12-LEAD 2022-01-25 21:30:43 Unknown, 7 [facility] ECG 12-LEAD 2022-01-25 21:30:14 Unknown, 7 [facility] ECG 12-LEAD 2022-01-25 21:30:14 Unknown, 7 [facility] XR CHEST 1 VIEW PORTABLE 2022-01-25 17:37:00 Asuncion, [facility] BEDSIDE Center POCT-GLUCOSE METER 2022-01-25 16:39:00 Asuncion, [facility] SARS-COV2/RT-PCR ([facility] & 2022-01-25 12:33:00 OnAlfonso mckenna [facility] REF LABS) [facility] POCT-GLUCOSE METER 2022-01-25 12:00:00 Asuncion, [facility] TRANSFUSE LEUKO-REDUCED 2022-01-25 11:00:00 Suyapa Barclay [facility] RED BLOOD CELLS Center HEMOGLOBIN A1C 2022-01-25 09:26:00 Asuncion, [facility] POCT-GLUCOSE METER 2022-01-25 05:42:00 Ayaan Christian [facility] BLOOD BANK EXTRA PINK 2022-01-25 05:41:00 Jo Romero [facility] CBC W/PLT COUNT & AUTO 2022-01-25 03:17:00 [facility] DIFFERENTIAL Center COMPREHENSIVE METABOLIC 2022-01-25 03:17:00 [facility] PANEL Center IRON, TIBC, % SAT. 2022-01-25 03:17:00 [facility] (WITHOUT FERRITIN) Center FERRITIN 2022-01-25 03:17:00 [facility] PT/APTT 2022-01-25 03:17:00 [facility] TYPE AND SCREEN, 2022-01-25 03:17:00 [facility] AUTOMATED Center CBC W/PLT COUNT & AUTO 2022-01-25 03:17:00 [facility] DIFFERENTIAL Mar[place] EKG-SCANNED 2022-01-25 00:00:00 Provider, [facility] CBC W/AUTO DIFF WITH 2022-01-22 12:40:00 [facility] IRON+TIBC+%SAT 2022-01-22 12:40:00 [facility] FERRITIN 2022-01-22 12:40:00 [facility] VITAMIN B12 \\T\\ FOLIC 2022-01-22 12:40:00 [facility] ACID [facility] AMB REF TO HEMATOLOGY 2022-01-22 12:00:06 [facility] CBC W/AUTO DIFF WITH 2022-01-22 12:00:05 [facility] PLATELETS [facility] IRON+TIBC+%SAT 2022-01-22 12:00:05 [facility] FERRITIN 2022-01-22 12:00:05 [facility] VITAMIN B12 \\T\\ FOLIC 2022-01-22 12:00:05 Count includes the [facility] PERMANENT LAB REPORT - 2022-01-16 00:00:00 Provider, Default [facility] Medical [facility] EKG-SCANNED 2022-01-16 00:00:00 Provider, [facility] ENTEROSCOPY 2022-01-13 11:01:00 DeanSushilajoe Muniz [facility] POCT-GLUCOSE METER 2022-01-13 09:58:00 [facility] POCT-GLUCOSE METER 2022-01-13 06:34:00 [facility] POCT-GLUCOSE METER 2022-01-12 21:20:00 [facility] POCT-GLUCOSE METER 2022-01-12 15:24:00 [facility] ABORH, MANUAL 2022-01-12 12:05:00 Jo Romero [facility] POCT-GLUCOSE METER 2022-01-12 11:28:00 [facility] TYPE AND SCREEN, 2022-01-12 11:00:00 Maryuri Garay [facility] POCT-GLUCOSE METER 2022-01-12 06:34:00 [facility] CT ABDOMEN PELVIS WO 2021-08-04 03:59:53 Morales Fitch [facility] CONTRAST Medical Branch LIPASE 2021-08-04 03:39:00 Morales Fitch [facility] COMP. METABOLIC PANEL 2021-08-04 03:39:00 Moarles Fitch [facility] ([id number]) [facility] CBC WITH DIFF 2021-08-04 03:39:00 Morales Fitch [facility] URINALYSIS 2021-08-04 03:39:00 Morales Fitch [facility] NOTICE OF PRIVACY 2021-08-04 02:24:14 Doctor Unassigned, [facility] PRACTICES [place] [facility] CONSENT/REFUSAL FOR 2021-08-04 02:22:02 Doctor Unassherminia, [facility] DIAGNOSIS AND TREATMENT [place] [facility] Colonoscopy [facility] Endoscopy of GI tract [facility] Plan of Care Planned Activity Planned Date Details Comments Source Future Scheduled 2023-01-26 Tobacco Cessation [facility] Test 00:00:00 [facility] [...] RISK Medical C enter SCREENING] Future Scheduled 2022-03-29 FALLS RISK SCREENING [facility] Test 00:00:00 [code = FALLS RISK Medical C enter SCREENING] Future Scheduled 2022-03-17 IRON+TIBC+%SAT [code Ordered: [facility] Test 15:15:34 = NOCPT] 03/17/2022 of Medicine Future Scheduled 2022-03-17 CBC W/AUTO DIFF WITH Ordered: [facility] Test 15:15:34 PLATELETS [code = 03/17/2022 of Medicin e 70660-5] Future Scheduled 2022-03-17 COMPREHENSIVE Ordered: [facility] Test 15:15:34 METABOLIC PANEL 03/17/2022 of Medicine [code = 13652-9] Future Scheduled 2022-03-17 FERRITIN [code = Ordered: [facility] Test 15:15:34 87706-3] 03/17/2022 of Medicine Future Scheduled 2022-03-17 Screening for [facility] Test 14:44:47 malignant neoplasm of Medici ne of colon (procedure) [code = 795209380] Future Scheduled 2022-03-17 Pneumococcal 65+ (1 [employer] Test 14:44:47 - PCV) [code = of Medicine Pneumococcal 65+ (1 - PCV)] Future Scheduled 2022-03-17 BMI FOLLOW UP PLAN [employer] Test 14:44:47 [code = BMI FOLLOW of Medici ne UP PLAN] Future Scheduled 2022-03-17 Hepatitis C [facility] Se[facility] Test 14:44:47 screening of Medicine (procedure) [code = 061737363] Future Scheduled 2022-03-17 Screening for [facility] Test 14:44:47 malignant neoplasm of Medici ne of lung (procedure) [code = 515932228] Future Scheduled 2022-03-17 ZOSTER VACCINE (1 of [place] [facility] [employer] Test 14:44:47 2) [code = ZOSTER of Medicin e VACCINE (1 of 2)] Future Scheduled 2022-03-17 FALL SCREEN [code = [employer] Test 14:44:47 FALL SCREEN] of Medicine Future Scheduled 2022-03-17 Screening for [facility] Test 14:44:47 osteoporosis of Medicine (procedure) [code = 905393674] Future Scheduled 2022-03-17 Screening for [facility] Test 14:44:47 malignant neoplasm of Medici ne of breast (procedure) [code = 748767128] Future Scheduled 2022-03-17 COVID-19 Vaccine (4 [employer] Test 14:44:47 - Booster for of Medicine Moderna series) [code = COVID-19 Vaccine (4 - Booster for Moderna series)] Future Scheduled 2022-03-17 TETANUS SHOT (ADULT) [employer] Test 14:44:47 [code = TETANUS SHOT of Medi cine (ADULT)] Future Scheduled 2022-03-17 FLU VACCINE > 6 [facility] Test 14:44:47 MONTHS [code = FLU of Medici ne VACCINE > 6 MONTHS] Future Scheduled 2022-01-22 Screening for [facility] Test 20:43:40 malignant neoplasm of Medici ne of colon (procedure) [code = 031012641] Future Scheduled 2022-01-22 Pneumococcal 65+ (1 [employer] Test 20:43:40 - PCV) [code = of Medicine Pneumococcal 65+ (1 - PCV)] Future Scheduled 2022-01-22 BMI FOLLOW UP PLAN [employer] Test 20:43:40 [code = BMI FOLLOW of Medici ne UP PLAN] Future Scheduled 2022-01-22 Hepatitis C [facility] Test 20:43:40 screening of Medicine (procedure) [code = 096715853] Future Scheduled 2022-01-22 Screening for [facility] Test 20:43:40 malignant neoplasm of Medici ne of lung (procedure) [code = 595664787] Future Scheduled 2022-01-22 ZOSTER VACCINE (1 of [place] [employer] Test 20:43:40 2) [code = ZOSTER of Medicin e VACCINE (1 of 2)] Future Scheduled 2022-01-22 FALL SCREEN [code = [employer] Test 20:43:40 FALL SCREEN] of Medicine Future Scheduled 2022-01-22 Screening for [facility] Test 20:43:40 osteoporosis of Medicine (procedure) [code = 018950990] Future Scheduled 2022-01-22 Screening for [facility] Test 20:43:40 malignant neoplasm of Medici ne of breast (procedure) [code = 356660756] Future Scheduled 2022-01-22 MEDICARE AWV [facility] Test 20:43:40 (Initial) [code = of Medicin e MEDICARE AWV (Initial)] Future Scheduled 2022-01-22 COVID-19 Vaccine (4 [employer] Test 20:43:40 - Booster for of Medicine Moderna series) [code = COVID-19 Vaccine (4 - Booster for Moderna series)] Future Scheduled 2022-01-22 TETANUS SHOT (ADULT) [employer] Test 20:43:40 [code = TETANUS SHOT of Medi cine (ADULT)] Future Scheduled 2022-01-22 FLU VACCINE > 6 [facility] Test 20:43:40 MONTHS [code = FLU of Medici ne VACCINE > 6 MONTHS] Future Scheduled 2022-01-22 COLONOSCOPY W MAC GI 1 Occurrences [employer] Test 12:00:06 DEPT [code = starting of Medicine 90583863] 01/22/2022 until 07/23/2022 Future Scheduled 2022-01-22 CBC W/AUTO DIFF WITH Ordered: [place] [employer] Test 12:00:05 PLATELETS [code = 01/22/2022 of Medicin e 80185-2] Future Scheduled 2022-01-22 IRON+TIBC+%SAT [code Ordered: [facility] Test 12:00:05 = NOCPT] 01/22/2022 of Medicine Future Scheduled 2022-01-22 FERRITIN [code = Ordered: [facility] Test 12:00:05 48484-9] 01/22/2022 of Medicine Future Scheduled 2022-01-22 VITAMIN [...] (2 - Td or Tdap)] Future Scheduled 2021-01-10 COVID-19 VACCINE ([address] [facility] Test [...] C enter of colon (procedure) [code = 412053475] Future Scheduled 2017-12-[address] [facility] Test 00:00:00 malignant neoplasm Medical C enter of colon (procedure) [code = 915750967] Future Scheduled 2017-12-[address] [facility] Test 00:00:00 malignant neoplasm Medical C enter of colon (procedure) [code = 908080289] Future Scheduled 2017-12-[address] [facility] Test 00:00:00 malignant neoplasm Medical C enter of colon (procedure) [code = 136178370] Future Scheduled 2017-12-[address] [facility] Test 00:00:00 malignant neoplasm Medical C enter of colon (procedure) [code = 807147897] Future Scheduled 2017-12-[address] [facility] Test 00:00:00 malignant neoplasm Medical C enter of colon (procedure) [code = 513401107] Future Scheduled 2017-12-[address] [facility] Test 00:00:00 malignant neoplasm Medical C enter of colon (procedure) [code = 463962405] Future Scheduled 2017-12-[address] [facility] Test 00:00:00 malignant neoplasm Medical C enter of colon (procedure) [code = 238649700] Future Scheduled 2017-12-[address] [facility] Test 00:00:00 malignant neoplasm Medical C enter of colon (procedure) [code = 926440720] Future Scheduled 2017-12-[address] [facility] Test 00:00:00 malignant neoplasm Medical C enter of colon (procedure) [code = 952474665] Future Scheduled 2017-12-[address] [facility] Test 00:00:00 malignant neoplasm Medical C enter of colon (procedure) [code = 750032051] Future Scheduled 2017-12-[address] [facility] Test 00:00:00 malignant neoplasm Medical C enter of colon (procedure) [code = 786382296] Future Scheduled 2017-12-[address] [facility] Test 00:00:00 malignant neoplasm Medical C enter of colon (procedure) [code = 810646070] Future Scheduled 2017-12-[address] [facility] Test 00:00:00 malignant neoplasm Medical C enter of colon (procedure) [code = 057682231] Future Scheduled 2017-06-[address] [facility] [facility] Test 00:[facility]00 measurement Medical Center (procedure) [code = 47570061] Future Scheduled 2017-06-[address] [facility] Test 00:00:00 measurement Medical Center (procedure) [code = 29797572] Future Scheduled 2017-06-[address] [facility] Test 00:00:00 measurement Medical Center (procedure) [code = 32786931] Future Scheduled 2017-06-[address] [facility] Test 00:00:00 measurement Medical Center (procedure) [code = 94679092] Future Scheduled 2017-06-[address] [facility] [facility] Test 00:00:00 measurement Medical Center (procedure) [code = 35601558] Future Scheduled 2017-06-[address] [facility] Test 00:00:00 measurement Medical Center (procedure) [code = 98596925] Future Scheduled 2017-06-[address] [facility] Test 00:00:00 measurement Medical Center (procedure) [code = 03612407] Future Scheduled 2012-10-[address] [facility] [facility] Test 00:00:00 WELLNESS (YEAR 2 or Medical Center FIRST YEAR if no IPPE) [code = MEDICARE ANNUAL WELLNESS (YEAR 2 or FIRST YEAR if no IPPE)] Future Scheduled 1996 SHINGLES VACCINES (1 [facility] [...] 00:00:00 examination Medical Center (regime/therapy) [code = 278813437] Future Scheduled 1956 Urine screening [facility] Test 00:00:00 protein (procedure) Medical Center [code = 226202424] Future Scheduled [address] DI[address]YE EXAM [facility] Test 00:00:00 [code = DIABETIC EYE Medical Center EXAM] Future Scheduled [address] [facility] Test 00:00:00 examination Medical Center (regime/therapy) [code = 905908616] Future Scheduled 1956 Urine screening for [facility] Test 00:00:00 protein (procedure) Medical Center [code = 360138917] Future Scheduled [address]YE EXAM [facility] Test 00:00:00 [code = DIABETIC EYE Medical Center EXAM] Future Scheduled [address] [facility] Test 00:00:00 examination Medical Center (regime/therapy) [code = 974894821] Future Scheduled 1956 Urine screening for [facility] Test 00:00:00 protein (procedure) Medical Center [code = 880934196] Future Scheduled [address]YE EXAM [facility] Test 00:00:00 [code = DIABETIC EYE Medical Center EXAM] Future Scheduled [address] [facility] Test 00:00:00 examination Medical Center (regime/therapy) [code = 341875869] Future Scheduled 1956 Urine screening for [facility] Test 00:00:00 protein (procedure) Medical Center [code = 573820565] Future Scheduled [address]YE EXAM [facility] Test 00:00:00 [code = DIABETIC EYE Medical Center EXAM] Future Scheduled [address] [facility] Test 00:00:00 examination Medical Center (regime/therapy) [code = 391745754] Future Scheduled 1956 Urine screening for [facility] Test 00:00:00 protein (procedure) Medical Center [code = 655523053] Future Scheduled [address]YE EXAM [facility] Test 00:00:00 [code = DIABETIC EYE Medical Center EXAM] Future Scheduled [address] [facility] Test 00:00:00 examination Medical Center (regime/therapy) [code = 053263835] Future Scheduled 1956 Urine screening for [facility] Test 00:00:00 protein (procedure) Medical Center [code = 667531033] Future Scheduled [address] EYE EXAM [facility] Test 00:00:00 [code = DIABETIC EYE Medical Center EXAM] Future Scheduled [address] [facility] Test 00:00:00 examination Medical Center (regime/therapy) [code = 779265843] Future Scheduled 1956 Urine screening for [facility] Test 00:00:00 protein (procedure) Medical Center [code = 302682115] Future Scheduled [address] [facility] Test 00:00:00 (combo) [code = CT Medical C enter Colonography (combo)] Future Scheduled [address] [facility] Test 00:00:00 malignant neoplasm Medical C enter of colon (procedure) [code = 509727553] Future Scheduled 1946 DXA SCAN [code = DXA [facility] Test 00:00:00 SCAN] Medical Center Future Scheduled [address] [facility] Test 00:00:00 malignant neoplasm Medical C enter of colon (procedure) [code = 028620584] Future Scheduled 1946 Sigmoidoscopy [code [facility] Test 00:00:00 = Sigmoidoscopy] Medical [facility] Future Scheduled [address] [facility] Test 00:00:00 (combo) [code = CT Medical C enter Colonography (combo)] Future Scheduled [address] [facility] Test 00:00:00 malignant neoplasm Medical C enter of colon (procedure) [code = 885873856] Future Scheduled 1946 DXA SCAN [code = DXA [facility] Test 00:00:00 SCAN] [facility] Future Scheduled [address] [facility] Test 00:00:00 malignant neoplasm Medical C enter of colon (procedure) [code = 880741772] Future Scheduled 1946 Sigmoidoscopy [code [facility] Test 00:00:00 = Sigmoidoscopy] [facility] Future Scheduled [address] [facility] Test 00:00:00 (combo) [code = CT Medical C enter Colonography (combo)] Future Scheduled [address] [facility] Test 00:00:00 malignant neoplasm Medical C enter of colon (procedure) [code = 746210846] Future Scheduled 1946 DXA SCAN [code = DXA [facility] Test 00:00:00 SCAN] [facility] Future Scheduled [address] [facility] Test 00:00:00 malignant neoplasm Medical C enter of colon (procedure) [code = 862500877] Future Scheduled 1946 Sigmoidoscopy [code [facility] Test 00:00:00 = Sigmoidoscopy] [facility] Future Scheduled [address] [facility] Test 00:00:00 (combo) [code = CT Medical C enter Colonography (combo)] Future Scheduled [address] [facility] Test 00:00:00 malignant neoplasm Medical C enter of colon (procedure) [code = 798827553] Future Scheduled 1946 DXA SCAN [code = DXA [facility] Test 00:00:00 SCAN] [facility] Future Scheduled [address] [facility] Test 00:00:00 malignant neoplasm Medical C enter of colon (procedure) [code = 198196090] Future Scheduled 1946 Sigmoidoscopy [code [facility] Test 00:00:00 = Sigmoidoscopy] [facility] Future Scheduled [address] [facility] Test 00:00:00 (combo) [code = CT Medical C enter Colonography (combo)] Future Scheduled [address] [facility] Test 00:00:00 malignant neoplasm Medical C enter of colon (procedure) [code = 442087029] Future Scheduled 1946 DXA SCAN [code = DXA [facility] Test 00:00:00 SCAN] [facility] Future Scheduled [address] [facility] Test 00:00:00 malignant neoplasm Medical C enter of colon (procedure) [code = 578990133] Future Scheduled 1946 Sigmoidoscopy [code [facility] Test 00:00:00 = Sigmoidoscopy] [facility] Future Scheduled [address] [facility] Test 00:00:00 (combo) [code = CT Medical C enter Colonography (combo)] Future Scheduled [address] [facility] Test 00:00:00 malignant neoplasm Medical C enter of colon (procedure) [code = 706121341] Future Scheduled 1946 DXA SCAN [code = DXA [facility] Test 00:00:00 SCAN] [facility] Future Scheduled [address] [facility] Test 00:00:00 malignant neoplasm Medical C enter of colon (procedure) [code = 097964658] Future Scheduled 1946 Sigmoidoscopy [code [facility] Test 00:00:00 = Sigmoidoscopy] [facility] Future Scheduled [address] [facility] Test 00:00:00 (combo) [code = CT Medical C enter Colonography (combo)] Future Scheduled [address] [facility] Test 00:00:00 malignant neoplasm Medical C enter of colon (procedure) [code = 044807490] Future Scheduled 1946 DXA SCAN [code = DXA [facility] Test 00:00:00 SCAN] [facility] Future Scheduled [address] [facility] Test 00:00:00 malignant neoplasm Medical C enter of colon (procedure) [code = 867236622] Future Scheduled 1946 Sigmoidoscopy [code [facility] Test 00:00:00 = Sigmoidoscopy] [facility] Encounters Start End Encounter Admission Attending Care Care Encounter Source Date/Time Date/Time Type Type Clinicians Facility Department ID 2022-04-29 Outpatient Rondon, STLMLC STLMLC [id number] Common 13:24:00 Isra [id number] [facility] 2022-02-04 Outpatient Rondon, STLMLC STLC [id number] Common 10:17:01 Isra [id number] [facility] 2022-01-22 Outpatient CHRISTOS BROOKS, [facility] Surgery [id number] SLEH 12:55:06 PEARL 2022-01-16 Outpatient Rondon, STLMLC STLC [id number] Common 13:25:00 Isra [facility] 2021-10-06 Outpatient Rondon, STLMLC STLC [id number] Common 16:18:00 Isra [facility] 2021-08-18 Outpatient Rondon, STLMLC STLC [id number] Common 09:23:08 Isra [facility] 2021-06-09 Outpatient Rondon, STLMLC STLC [id number] Common 10:56:01 Isra [facility] 2021-05-28 Outpatient Rondon, STLMLC STLC [id number] Common 08:20:00 Isra [facility] 2021-05-22 Outpatient Rondon, STLMLC STLC [id number] Common 15:37:00 Isra [facility] 2021-04-23 Outpatient Rondon, STLMLC STLC [id number] Common 14:32:51 Isra [facility] 2021-04-23 Outpatient Rondon, STLMLC STLMLC [id number] Common 14:27:21 Isra [facility] 2021-04-23 Outpatient Rondon, STLMLC STLC [id number] Common 14:26:14 Isra [facility] 2021-04-23 Outpatient Rondon, STLMLC STLC [id number] Common 14:26:02 Isra [facility] 2021-04-23 Outpatient Rondon, STLMLC STLMLC [id number] Common 14:25:31 Isra [id number] [facility] 2021-04-23 Outpatient Rondon, STLMLC STLMLC [id number] Common 14:24:42 Isra [id number] [facility] 2021-04-23 Outpatient Rondon, STLMLC STLMLC [id number] Common 14:24:14 Isra [id number] [facility] 2021-04-23 Outpatient Rondon, STLMLC STLMLC [id number] Common 14:22:04 Isra [id number] [facility] 2021-04-23 Outpatient STLMLC STLMLC [id number] Common 14:04:07 [id number] [facility] 2021-04-23 Outpatient STLMLC STLMLC [id number] Common 13:57:01 [id number] [facility] 2021-04-23 Outpatient STLMLC STLMLC [id number] Common 13:54:56 [id number] [facility] 2021-04-23 Outpatient STLMLC STLMLC [id number] Common 13:49:08 [id number] [facility] 2021-04-23 Outpatient STLMLC STLMLC [id number] Common 12:36:47 [id number] [facility] 2021-04-23 Outpatient STLMLC STLMLC [id number] Common 12:20:24 [id number] [facility] 2022-04-30 2022-04-30 OFFICE STLMLC STLMLC [id number] Co mmon 00:00:00 00:00:00 VISIT [facility] 4 [facility] 2022-04-14 2022-04-14 (TEL) STLMLC STLMLC [id number] Co mmon 00:00:00 00:00:00 [facility] 2022-03-17 2022-03-17 Office TAMAR Cohn [id number] [facility] 14:40:00 15:00:00 Visit [facility] K AMBULATOR 350.1.13.21 College Y [id number] Medi fabián 325 e 2022-03-16 2022-03-16 (WEB) STLMLC STLMLC [id number] Co mmon 00:00:00 00:00:00 [facility] 2022-03-12 2022-03-12 (TEL) STLMLC STLMLC [id number] Co mmon 00:00:00 00:00:00 [facility] 2022-03-10 2022-03-10 Outpatient R ARAVIND, [facility] [id number] [facility] 11:00:00 11:00:00 LIDIA farley [facility] 2022-03-04 2022-03-04 (TEL) STLMLC STLMLC [id number] Co mmon 00:00:00 00:00:00 [facility] 2022-03-04 2022-03-04 (TEL) STLMLC STLMLC [id number] Co mmon 00:00:00 00:00:00 [facility] 2022-02-23 2022-02-23 (TEL) STLMLC STLMLC [id number] Co mmon 00:00:00 00:00:00 [facility] 2022-02-21 2022-02-21 [facility] [id number] 07:00:00 11:00:00 Encounter [facility] 2022-02-21 2022-02-21 Inpatient [facility] Surgery [id number] SLE 07:00:00 11:00:[address] [facility] 2022-02-21 2022-02-21 [facility] [id number] 07:00:00 11:00:00 Encounter [facility] 2022-02-12 2022-02-12 (TEL) STLMLC STLMLC [id number] Co mmon 00:00:00 00:00:00 [facility] 2022-02-11 2022-02-11 (TEL) STLMLC STLMLC [id number] Co mmon 00:00:00 00:00:00 [facility] 2022-02-04 2022-02-04 (TEL) STLMLC STLMLC [id number] Co mmon 00:00:00 00:00:00 [facility] 2022-02-03 2022-02-03 (TEL) STLMLC STLMLC [id number] Co mmon 00:00:00 00:00:00 [facility] 2022-02-02 2022-02-02 (TEL) STLMLC STLMLC [id number] Co mmon 00:00:00 00:00:00 [facility] 2022-01-29 2022-01-29 (TEL) STLMLC STLMLC [id number] Co mmon 00:00:00 00:00:00 [facility] 2022-01-29 2022-01-29 (TEL) STLMLC STLMLC [id number] Co mmon 00:00:00 00:00:00 [facility] 2022-01-26 2022-01-26 Anesthesia Anabel, [facility] [id number] 08:25:00 09:27:00 Event [facility] 2022-01-26 2022-01-26 Anesthesia Anabel, [facility] [id number] 08:25:00 09:27:00 Event [facility] 2022-01-26 2022-01-26 Surgery Cohn, [facility] [id number] 07:50:00 08:50:00 [facility] 2022-01-26 2022-01-26 Surgery Cohn, [facility] [id number] 07:50:00 08:50:00 [facility] 2022-01-25 2022-01-26 [facility] Carol Heredia [facility] [id number] 02:05:00 02:40:00 Encounter [facility] 2022-01-25 2022-01-26 Inpatient ER ASUNCION, [facility] Gastro [id number] SLEH 02:05:00 02:40:00 [facility] 2022-01-25 2022-01-26 Hospital ER Carol Heredia [facility] [id number] 02:05:00 02:40:00 [facility] 2022-01-26 2022-01-26 [facility]WEB[facility] [id number] Co mmon 00:00:00 00:00:00 Spirit - [facility] 2022-01-25 2022-01-25 Outpatient [facility] [id number] [facility] 00:00:00 23:59:00 Car Medicin e 2022-01-16 2022-01-25 Inpatient UR SLE Medicine [id number] [facility] 13:08:00 01:30:00 5 2022-01-25 2022-01-25 Orders [facility] [id number] 00:00:00 00:00:00 Only [facility] 2022-01-25 2022-01-[address] [facility] [id number] [facility] 00:[facility]00 00:00:00 [facility] 2022-01-25 2022-01-25 Orders [facility] [id number] 00:00:00 00:00:00 [facility] 2022-01-25 2022-01-[address] [facility] [id number] [facility] 00:00:00 00:00:00 [facility] 2022-01-22 2022-01-22 Office TAMAR BROOKS [id number] [facility] 09:54:57 14:32:59 Visit PEARL AMBULATOR 350.1.13.21 College Y 0.2.7.2.686 [facility] [id number] Medi fabián 325 e 2022-01-20 2022-01-20 (TEL) STLMLC STLMLC [id number] Co mmon 00:00:00 00:00:00 [facility] 2022-01-19 2022-01-19 (TEL) STLMLC STLMLC [id number] Co mmon 00:00:00 00:00:00 [facility] 2022-01-16 2022-01-16 (EST. STLMLC STLMLC [id number] Co mmon 00:00:00 00:00:00 VIDEO) EST Spi rit [facility] VIDEO [facility] 2022-01-14 2022-01-14 (WEB) STLMLC STLMLC [id number] Co mmon 00:00:00 00:00:00 [facility] 2022-01-11 2022-01-13 [facility], [facility] [id number] 21:56:00 15:30:[address] 2022-01-11 2022-01-13 [facility], [facility] [id number] [id number] 21:56:00 15:30:[address] 2022-01-13 2022-01-13 Surgery Dean, [facility] [id number] 10:00:00 10:46:00 [facility] 2022-01-13 2022-01-13 Surgery Dean, [facility] [id number] 10:00:00 10:46:00 [facility] 2022-01-11 2022-01-11 [facility] [id number] 21:50:00 21:55:00 [facility] 2022-01-11 2022-01-11 Emergency ER SLE Emergency [id number] SLE 21:50:00 21:55:00 2022-01-11 2022-01-11 [facility] [id number] 21:50:00 21:55:00 [facility] 2022-01-06 2022-01-06 (TEL) STLMLC STLMLC [id number] Co mmon 00:00:00 00:00:00 [facility] 2021-12-30 2021-12-30 OFFICE STLMLC STLMLC [id number] Co mmon 00:00:00 00:00:00 VISIT Spirit ESTAB PT - CHI LEVEL 4 [facility] 2021-12-17 2021-12-17 OFFICE STLMLC STLMLC [id number] Co mmon 00:00:00 00:00:00 VISIT EST Spir it PT LEVEL 3 - CHI [facility] 2021-12-17 2021-12-17 (TEL) STLMLC STLMLC [id number] Co mmon 00:00:00 00:00:00 [facility] 2021-12-12 2021-12-12 (TEL) STLMLC STLMLC [id number] Co mmon 00:00:00 00:00:00 [facility] 2021 2021 Outpatient Iyanoye_S DMG G [id number] -2021 [facility] 00:00:00 00:00:00 [facility]23 [facility] 2021 2021 Outpatient Iyanoye_S DMG G [id number] -2022 [facility] 00:00:00 00:00:00 0105 [facility] 2021 2021 Outpatient Iyanoye_S DMG G [id number] -2021 [facility] 00:00:00 00:00:00 0901 [facility] 2021 2021 (TEL) STLMLC STLMLC [id number] Co mmon 00:00:00 00:00:00 [facility] 2021-11-25 2021-11-25 (TEL) STLMLC STLMLC [id number] Co mmon 00:00:00 00:00:00 [facility] 2021-11-18 2021-11-18 (TEL) STLMLC STLMLC [id number] Co mmon 00:00:00 00:00:00 [facility] 2021-11-12 2021-11-12 (TEL) STLMLC STLMLC [id number] Co mmon 00:00:00 00:00:00 [facility] 2021-11-10 2021-11-10 OFFICE STLMLC STLMLC [id number] Co mmon 00:00:00 00:00:00 VISIT EST Spir it PT LEVEL 3 [facility] 2021-11-10 2021-11-10 (TEL) STLMLC STLMLC [id number] Co mmon 00:00:00 00:00:00 [facility] 2021-10-28 2021-10-28 (TEL) STLMLC STLMLC [id number] Co mmon 00:00:00 00:00:00 [facility] 2021-10-10 2021-10-10 Outpatient DMG DMG [id number] [facility] 03:13:00 03:13:00 0715 [facility] 2021-10-09 2021-10-09 (WEB) STLMLC STLMLC [id number] Co mmon 00:00:00 00:00:00 [facility] 2021-10-08 2021-10-08 OL DIG E/M STLMLC STLMLC [id number] Common 00:00:00 00:00:00 C 11-20 Spir it MIN [facility] 2021-10-08 2021-10-08 (TEL) STLMLC STLMLC [id number] Co mmon 00:00:00 00:00:00 [facility] 2021-10-08 2021-10-08 (WEB) STLMLC STLMLC [id number] Co mmon 00:00:00 00:00:00 [facility] 2021-10-07 2021-10-07 (TEL) STLMLC STLMLC [id number] Co mmon 00:00:00 00:00:00 [facility] 2021-10-02 2021-10-02 (WEB) STLMLC STLMLC [id number] Co mmon 00:00:00 00:00:00 [facility] 2021-10-02 2021-10-02 (WEB) STLMLC STLMLC [id number] Co mmon 00:00:00 00:00:00 [facility] 2021-09-30 2021-09-30 (WEB) STLMLC STLMLC [id number] Co mmon 00:00:00 00:00:00 [facility] 2021-09-26 2021-09-26 (WEB) STLMLC STLMLC [id number] Co mmon 00:00:00 00:00:00 [facility] 2021-09-24 2021-09-24 OFFICE STLMLC STLMLC [id number] Co mmon 00:00:00 00:00:00 VISIT [facility] PT - CHI [address] 2021-09-17 2021-09-17 (TEL) STLMLC STLMLC [id number] Co mmon 00:00:00 00:00:00 [facility] 2021-08-27 2021-08-27 (TEL) STLMLC STLMLC [id number] Co mmon 00:00:00 00:00:00 [facility] 2021-08-21 2021-08-21 (TEL) STLMLC STLMLC [id number] Co mmon 00:00:00 00:00:00 [facility] 2021-08-20 2021-08-20 OFFICE STLMLC STLMLC [id number] Co mmon 00:00:00 00:00:00 VISIT [facility] PT - CHI [address] 2021-08-20 2021-08-20 SUB ANNUAL STLMLC STLMLC [id number] Common 00:00:00 00:00:00 MCR [facility] VISIT [facility] 2021-08-11 2021-08-11 (TEL) STLMLC STLMLC [id number] Co mmon 00:00:00 00:00:00 [facility] 2021-08-03 2021-08-04 Emergency X LITTLE, [facility] ERT [id number] Univers 21:58:00 01:05:00 MORALES ity [facility] 2021-08-03 2021-08-04 Emergency Little, [facility] 1.2.840.114 [id number] [facility] [place] 21:58:00 01:05:00 Morales Airam MILLER 350.1.13.10 ity [facility] 4.2.7.2.686 [facility] [phone] [place] [address] [place] 2021-07-30 2021-07-30 (TEL) STLMLC STLMLC [id number] Co mmon 00:00:00 00:00:00 [facility] 2021-07-30 2021-07-30 OFFICE STLMLC STLMLC [id number] Co mmon 00:00:00 00:00:00 VISIT EST Spir it PT LEVEL 3 - [facility] 2021-07-30 2021-07-30 (TEL) STLMLC STLMLC [id number] Co mmon 00:00:00 00:00:00 [facility] 2021-05-27 2021-05-27 (TEL) STLMLC STLMLC [id number] Co mmon 00:00:00 00:00:00 [facility] 2021-05-09 2021-05-09 (TEL) STLMLC STLMLC [id number] Co mmon 00:00:00 00:00:00 [facility] 2021-05-08 2021-05-08 (TEL) STLMLC STLMLC [id number] Co mmon 00:00:00 00:00:00 [facility] 2021-04-23 2021-04-23 (TEL) STLMLC STLMLC [id number] Co mmon 00:00:00 00:00:00 [facility] 2021-04-11 2021-04-11 OFFICE STLMLC STLMLC [id number] Co mmon 00:00:00 00:00:00 VISIT EST Spir it PT LEVEL 3 - [facility] 2021-04-11 2021-04-11 (TEL) STLMLC STLMLC [id number] Co mmon 00:00:00 00:00:00 [facility] 2021-04-09 2021-04-09 (TEL) STLMLC STLMLC [id number] Co mmon 00:00:00 00:00:00 Spirit - CHI [facility] 2021-04-07 2021-04-07 (TEL) STLMLC STLMLC [id number] Co mmon 00:00:00 00:00:00 Spirit - CHI [facility] 2021-03-14 2021-03-14 OFFICE STLMLC STLMLC [id number] Co mmon 00:00:00 00:00:00 VISIT [facility] PT - CHI LEVEL 4 [facility] 2021-03-14 2021-03-14 (TEL) STLMLC STLMLC [id number] Co mmon 00:00:00 00:00:00 [facility] CHI [facility] 2021-03-11 2021-03-11 [facility] [id number] Univers 15:15:00 17:38:47 LIDIA farley [facility] 2021-03-11 2021-03-11 Office GOLDIE Nazario 1.2.840.114 [id number] Univers 15:15:00 17:38:47 Visit Lidia MALONE 350.1.13.10 ity [facility] [address] [place] [phone] [address] 2021-03-11 2021-03-[address] [facility] [id number] Univers 15:15:00 17:38:47 LIDIA farley [facility] 2021-03-08 2021-03-08 Front Desk Coordinator Leola, Adc Lab Main [facility] 1.2.8 40.114 [id number] Univers 07:57:26 08:12:26 Visit Chance Paul 350.1.13.10 [facility] [place] [phone] [address] 2021-03-08 2021-03-[address] [facility] [id number] Univers 08:00:00 08:00:00 CHANCE to [facility] 2021-03-08 2021-03-08 [facility] [id number] Univers 08:00:00 08:00:00 CHANCE to [facility] 2021-03-08 2021-03-08 Orders Doctor THOMAS 1.2.840.114 [id number] Univers 00:00:00 00:00:00 Only Unassigned, JULIUS 350.1.13.10 ity of [place] [facility] 4.2.7.2.686 Manuel [phone] [address] 2021-02-28 2021-02-28 Outpatient R FORMERLY [facility] [id number] Univers 07:55:14 23:59:00 LIBRADO to o f [facility] 2021-02-28 2021-02-28 [facility] 1.2.840.114 [id number] Univers 07:55:14 23:59:00 Encounter Librado MILLER 350.1.13.10 ity [facility] 4.2.7.2.686 [facility] [phone] [address] 2021-02-28 2021-02-28 Outpatient R FOR[facility]LY [facility] [id number] Univers 07:55:14 23:59:00 LIBRADO revelesy o f [facility] 2021-02-28 2021-02-28 [facility] 1.2.840.114 [id number] Univers 07:54:41 07:54:41 Encounter Librado [place] 350.1.13.10 ity of [place] 4.2.7.2.686 [facility] [id number] [facility] [address] 2021-02-28 2021-02-28 [facility] 1.2.840.114 [id number] Univers 07:54:07 07:54:07 Encounter Librado [place] 350.1.13.10 ity of [facility] 4.2.7.2.686 [facility] [phone] [address] 2021-02-07 2021-02-07 Outpatient R FOR[facility] [id number] Univers 09:20:00 09:31:58 LIBRADO to o airam [facility] 2021-02-07 2021-02-07 Outpatient R JOSE ALBERTO, [facility] [id number] Univers 09:20:00 09:31:58 LIBRADO revelesy o airam [facility] 2021-02-07 2021-02-07 Outpatient R JOSE ALBERTO, [facility] [id number] Univers 09:20:00 09:31:58 LIBRADO to o [facility] 2021-02-07 2021-02-07 Outpatient R JOSE ALBERTO, [facility] [id number] Univers 09:20:00 09:31:58 LIBRADO revelesy o [facility] 2021-02-07 2021-02-07 Office [facility] 1.2.840.114 [id number] Univers 09:01:02 09:31:58 Visit Librado MILLER 350.1.13.10 ity [facility] [place] [phone] Co dical [facility] 2021-02-01 2021-02-01 [place] [id number] [facility] 11:01:00 11:01:00 1106 [facility] 2021-01-16 2021-01-[address] [facility] [id number] Univers 14:30:00 14:30:00 ity of [facility] 2020-12-12 2020-12-12 Orders Doctor THOMAS 1.2.840.114 [id number] Univers 00:00:00 00:00:00 Only Unassigned, JULISU 350.1.13.10 ity of [place] [facility] 4.2.7.2.686 Manuel as [phone] [address] 2020-12-11 2020-12-11 [facility] [id number] Co mmon 00:00:00 00:00:00 VISIT Spirit ESTAB PT - CHI LEVEL 4 [facility] 2020-12-06 2020-12-06 Patient Eleni [facility] 1.2.840.114 [id number] Univers 00:00:00 00:00:00 Secure Msg [facility] Health 350.1.13.10 ity of [place] 4.2.7.2.686 Manuel as Luis Enrique?Blea [phone] Co nat rahman [address] [place] [address] Office [facility] 2020-12-06 2020-12-06 [facility] 1.2.840.114 [id number] Univers 00:00:00 00:00:00 Wondiful A Health 350.1.13.10 ity of [place] 4.2.7.2.686 Manuel as Luis Enrique?Blea [phone] [facility] rivera[address] Office [facility] 2020-12-04 2020-12-04 [facility] 1.2.840.114 [id number] Univers 00:00:00 00:00:00 Management Wondiful A Health 350.1.13.10 ity of [place] 4.2.7.2.686 Manuel as Luis Enrique?Blea [phone] [address] 2020-11-28 2020-11-28 Front Desk Coordinator Lab, [facility] 1.2.840.1 [id number] Univers 16:02:35 16:17:35 Visit Alexandrea Knowlesjosé luisjudith A Health 350.1.13.1 0 ity of [place] 4.2.7.2.686 Manuel as Luis Enrique?Blea [phone] Co nat rahman [facility] Office [facility] 2020-11-28 2020-11-[address] [facility] [id number] Univers 15:15:00 16:02:20 WONDIFUL ity o f [facility] 2020-11-28 2020-11-[address] [facility] [id number] Univers 15:15:00 16:02:20 WONDIFUL ity o [facility] 2020-11-28 2020-11-28 [facility] 1.2.840.114 [id number] Univers 14:51:53 16:02:20 Visit Wondiful [facility] Health 350.1.13.10 ity of [place] 4.2.7.2.686 Manuel as Luis Enrique?Blea [phone] Co nat rivera[address] Office [facility] 2020-11-28 2020-11-[address] [facility] [id number] Univers 15:15:00 15:15:00 WONDIFUL ity o f [facility] 2020-11-15 2020-11-[address] [facility] [id number] Univers 14:00:00 14:00:00 ERNESTO to [facility] 2020-11-15 2020-11-[address] [facility] [id number] Univers 14:00:00 13:37:47 ERNESTO to [facility] 2020-11-15 2020-11-[address] [facility] [id number] Univers 14:00:00 13:37:47 [facility] 2020-10-14 2020-10-14 Damion Redding [facility] 1.2.840.114 [id number] Univers 00:00:00 00:00:00 [facility] 350.1.13.10 it y of [place] 4.2.7.2.686 Manuel as Professio [phone] Co dicor nal [address] [place] [address] Office Building One 2020-10-08 2020-10-[address] [facility] [id number] Univers 14:20:00 15:23:11 JEN [facility] 2020-10-08 2020-10-[address] [facility] [id number] Univers 14:20:00 15:23:11 JEN [facility] 2020-10-08 2020-10-08 Outpatient R KAVON, [facility] [id number] Univers 14:20:00 14:20:00 JEN [facility] 2020-10-08 2020-10-08 Urgent Provider, [facility] 1..840.114 [id number] Univers 13:57:06 14:17:06 Care Jen Talbert 350.1.13.10 ity [place] 4.2.7.2.686 Manuel as Professio [phone] Co dicor nal [address] One 2020-09-12 2020-09-12 Orders Doctor GUZMAN 1.2.840.114 [id number] Univers 00:00:00 00:00:00 Only Unassigned, JULIUS 350.1.13.10 [facility] 4.2.7.2.686 Manuel as [phone] [facility] [address] 2020-09-04 2020-09-04 Telephone Eleni [facility] 1.2.840.114 [id number] Univers 00:00:00 00:00:00 Wondiful A Health 350.1.13.10 ity of [place] 4.2.7.2.686 Manuel as Professio [phone] Co dical nal [address] Office Building One 2020-08-05 2020-08-05 Outpatient R JOSE ALBERTO, [facility] [id number] Univers 09:40:00 09:40:00 LIBRADO to o [facility]ly [facility] 2020-08-05 2020-08-05 Office [facility], [facility] 1.2.840.114 [id number] Univers 09:15:43 09:35:40 Visit Geovanydian [place] 350.1.13.10 ity of [place] [phone] Co dical nal 059 [facility] 2020-07-25 2020-07-25 Outpatient R JOSE ALBERTO, [facility] [id number] Univers 08:31:20 23:59:00 LIBRADO chacon [facility] 2020-07-25 2020-07-25 Outpatient R JOSE ALBERTO, [facility] [id number] Univers 08:31:20 23:59:00 LIBRADO revelesy o [facility] 2020-07-25 2020-07-25 Outpatient R JOSE ALBERTO, [facility] [id number] Univers 09:00:00 09:00:00 LIBRADO revelesy o [facility] 2020-07-10 2020-07-10 Telephone GOLDIE Nguyen 1.2.840.114 [id number] Univers 00:00:00 00:00:00 Y HEALTH 350.1.13.10 i ty of [facility] [place]2.7.2.[place] [phone] [facility] [address] 2020-06-28 2020-06-28 Orders Doctor THOMAS 1.2.840.114 [id number] Univers 00:00:00 00:00:00 Only Unassigned, JULIUS 350.1.13.10 ity of [place] [facility] 4.2.7.2.686 Manuel as [phone] [place] [address] [address] 2020-06-25 2020-06-[address] [facility] [id number] Univers 09:45:00 09:45:00 ity [facility] 2020-06-25 2020-06-[address] [facility] [id number] Univers 09:45:00 09:45:00 ity [facility] 2020-06-25 2020-06-25 [address] [facility] [id number] Univers 09:45:00 09:45:00 ity [facility] 2020-06-25 2020-06-25 Office Tana Velez [facility] 1.2.840.114 [id number] Univers 09:18:55 09:33:[address] [facility] 350.1.13.10 it y of [place]2.7.2.[place] [phone] [place] [address] [address] Office Building 2020-06-11 2020-06-[address] [facility] [id number] Univers 13:30:00 14:34:44 KEISHA abdirizaklorraine [facility] 2020-06-11 2020-06-[address] [facility] [id number] Univers 13:30:00 14:34:44 KEISHA to [facility] 2020-06-11 2020-06-11 Office Markus [facility] 1.2.665.614 [id number] Univers 12:55:34 14:34:44 Visit Keisha Larry 350.1.13.10 i ty of [place]2.[place] [phone] [place] [address] Branch Building 2020-06-11 2020-06-[address] [facility] [id number] Univers 13:30:00 13:30:00 KEISHA abdirizaklorraine [facility] 2020-06-03 2020-06-[address] [facility] [id number] Univers 08:50:00 08:50:00 INDIGO lorraine [facility] 2020-06-03 2020-06-[address] [facility] [id number] Univers 08:50:00 08:31:51 INDIGO lorraine [facility] 2020-06-03 2020-06-03 Outpatient Belia JIMÉNEZ [facility] [id number] Univers 08:50:00 08:31:51 INDIGO lorraine [facility] 2020-05-31 2020-05-[address] [facility] [id number] Univers 09:00:00 09:00:00 LIDIA farley [facility] 2020-05-31 2020-05-[address] [facility] [id number] Univers 09:00:00 09:00:00 LIDIA farley [facility] 2020-05-31 2020-05-[address] [facility] [id number] Univers 09:00:00 09:00:00 LIDIA chacon [facility] 2020-05-30 2020-05-30 Front Desk Coordinator Lab, [facility] Uzair I [facility] 1.2. 840.114 [id number] Univers 10:38:21 10:58:21 Visit Chela Knowles [facility] 350.1.13.1 [facility] 4.2.7.2.686 Manuel as Professio [phone] Co dical [address] Office Building One 2020-05-30 2020-05-[address] [facility] [id number] Univers 10:00:00 10:36:57 WONDIJUDITH reveleslorraine chacon [facility] 2020-05-30 2020-05-[address] [facility] [id number] Univers 10:00:00 10:36:57 ALEXANDREADIJUDITH to ines [facility] 2020-05-30 2020-05-30 [facility] 1.2.840.114 [id number] Univers 09:28:48 10:36:57 Visit Brittful [facility] Health 350.1.13.10 ity of [place] 4.2.7.2.686 Manuel as Professio [phone] Co [facility] [address] Office [facility] One 2020-05-30 2020-05-30 Outpatient R ELENI, [facility] [id number] Univers 10:00:00 10:00:00 BRITTFUL ity o f [facility] 2020-05-06 2020-05-06 Outpatient R JOSE ALBERTO, [facility] [id number] Univers 09:00:00 09:00:00 LIBRADO ity o f [facility] 2020-05-01 2020-05-01 Telephone [facility] 1.2.693.445 [id number] Univers 00:00:00 00:00:00 Simi Health 350.1.13.10 it y of [place] 4.2.7.2.686 Manuel as Professio [phone] [address] One 2020-04-24 2020-04-24 Front Desk Coordinator [facility] UNIVERSIT 1.2.840.114 [id number] Univers 11:05:23 11:20:23 Visit WendyJose 350.1.13.10 ity of [place] [phone] [facility] [address] 2020-04-24 2020-04-[address] [facility] [id number] Univers 09:30:00 10:57:46 JOSE reveleslorraine [facility] 2020-04-24 2020-04-24 Outpatient R NGUYEN, [facility] [id number] Univers 09:30:00 10:57:46 JOSE to [facility] 2020-04-24 2020-04-24 Office Wendy [facility] 1.2.840.114 [id number] Univers 09:17:48 10:57:46 Visit Jose Zhu HEALTH 350.1.13.10 i ty of [place]2.[place] [phone] [facility] [address] 2020-04-24 2020-04-[address] [facility] [id number] Univers 09:30:00 09:30:00 itlorraine of [facility] 2020-04-24 2020-04-24 Telephone [facility] 1.2.455.771 [id number] Univers 00:00:00 00:00:00 Simi Health 350.1.13.10 it y of [place] 4.2.7.2.686 Manuel as Professio [phone] [facility] [address] Office [facility] One 2020-04-24 2020-04-24 Telephone [facility] 1.2.538.074 [id number] Univers 00:00:00 00:00:00 [facility] 350.1.13.10 it y of [place] 4.2.7.2.686 Manuel as Professio [phone] [address] One 2020-04-22 2020-04-22 Orders Doctor THOMAS 1.2.840.114 [id number] Univers 00:00:00 00:00:00 Only Unassigned, JULIUS 350.1.13.10 ity [place] [facility] 4.2.7.2.686 Manuel as [phone] [facility] [address] 2020-04-18 2020-04-18 Front Desk Coordinator [facility] 1.2.840.114 [id number] Univers 09:49:19 09:58:35 Visit Morena Gray HEALTH 350.1.13.10 ity of [facility] 4.2.7.2.[place] [phone] [facility] [address] 2020-04-18 2020-04-[address] [facility] [id number] Univers 09:45:00 09:58:35 MORENA ity [facility] 2020-04-18 2020-04-[address] [facility] [id number] Univers 09:45:00 09:58:35 MORENA ity [facility] 2020-04-18 2020-04-18 Office Isaac, [facility] 1.2.584.661 [id number] Univers 08:45:47 09:38:59 Visit Morena Y HEALTH 350.1.13.10 i ty of [facility] 4.2.7.2.[place] [phone] [address] 2020-04-18 2020-04-[address] [facility] [id number] Univers 09:00:00 09:00:00 MORENA to [facility] 2020-04-11 2020-04-[address] [facility] [id number] Univers 13:30:00 16:02:08 SIMI to [facility] 2020-04-11 2020-04-[address] [facility] [id number] Univers 13:30:00 16:02:08 SIMI to [facility] 2020-04-11 2020-04-[address] [facility] [id number] Univers 13:30:00 16:02:08 SIMI to [facility] 2020-04-11 2020-04-11 Office [facility] 1.2.840.114 [id number] Univers 12:57:38 16:02:08 Visit Simi Health 350.1.13.10 it y of [place] 4.2.7.2.686 Manuel as Professio [phone] [address] Office [facility] One 2020-04-11 2020-04-[address] [facility] [id number] Univers 13:30:00 13:30:00 SIMI to [facility] 2020-04-03 2020-04-03 Telephone [facility] 1.2.477.769 [id number] Univers 00:00:00 00:00:00 [facility] 350.1.13.10 it y of [place] 4.2.7.2.686 Manuel as Professio [phone] [address] Office [facility] One 2020-03-27 2020-03-27 [facility]phone [facility] 1.2.314.502 [id number] 00:00:00 00:00:00 [facility] 350.1.13.10 [place] 4.2.7.2.686 Professio [phone] [place] [address] Office Building One 2020-03-27 2020-03-27 Telephone [facility] [id number] Univers 00:00:00 00:00:00 [facility] 350.1.13.10 [facility] [place] 4.2.7.2.686 Manuel as Professio [phone] Co dic[address] Office Building One 2020-03-26 2020-03-26 [facility] [id number] [id number] 00:00:00 00:00:00 [facility] 350.1.13.10 [place] 4.2.7.2.686 Professio [phone] [place] [address] Office Building One 2020-03-26 2020-03-26 [facility] 1.2.483.280 [id number] Univers 00:00:00 00:00:00 [facility] 350.1.13.10 [facility] [place] 4.2.7.2.686 Manuel as Professio [phone] [address] Office Building One 2020-03-25 2020-03-25 Telephone [facility] 1.2.840.114 [id number] 00:00:00 00:00:00 [facility] 350.1.13.10 [place] 4.2.7.2.686 Professio [phone] [place] [address] [facility] [address] One 2020-03-25 2020-03-25 [facility] 1.2.840.114 [id number] Univers 00:00:00 00:00:00 [facility] 350.1.13.10 [facility] [place] 4.2.7.2.686 Manuel as Professio [phone] Co dicor nal [address] [place] [address] Office Building One 2020-03-01 2020-03-01 Orders Doctor GUZMAN 1.2.840.114 [id number] 00:00:00 00:00:00 Only Unassigned, JULIUS 350.1.13.10 [place] [facility] 4.2.7.2.686 [phone] 009 2020-03-01 2020-03-01 Orders Doctor GUZMAN 1.2.840.114 [id number] Univers 00:00:00 00:00:00 Only Unassigned, JULIUS 350.1.13.10 [place] [facility] 4.2.7.2.686 Manuel as [phone] [address] 2020-02-29 2020-02-29 Patient Doctor [place] 1.2.840.114 [id number] 00:00:00 00:00:00 Secure Msg Unassigned, Health 350.1.13.10 [place] 4.2.7.2.686 Professio [phone] [place] [address] Office [address] One 2020-02-29 2020-02-29 Patient Doctor [place] 1.2.840.114 [id number] Univers 00:00:00 00:00:00 Secure Msg Unassigned, Health 350.1.13.10 [place] [place] 4.2.7.2.686 Manuel as Professio [phone] [address] Office [facility] 2020-02-26 2020-02-26 Telephone [facility] 1.2.902.791 [id number] 1947 00:00:00 00:00:00 [facility] 350.1.13.10 [place] 4.2.7.2.686 Professio [phone] [place] [address] Office [facility] 2020-02-26 2020-02-26 Telephone [facility] 1.2.492.620 [id number] Univers 00:00:00 00:00:00 [facility] 350.1.13.10 it y of [place] 4.2.7.2.686 Manuel as Professio [phone] [address] Office [facility] 2020-02-01 2020-02-01 Telephone [facility] 1.2.840.114 [id number] 00:00:00 00:00:00 [facility] 350.1.13.10 [place] 4.2.7.2.686 Professio [phone] [place] [address] Office Building [facility] 2020-02-01 2020-02-01 Telephone [facility] 1.2.840.114 [id number] Univers 00:00:00 00:00:00 [facility] 350.1.13.10 it y of [place] 4.2.7.2.686 Manuel as Professio [phone] Co dical nal [address] [place] Office [facility] 2020-01-31 2020-01-31 Orders Doctor THOMAS 1.2.840.114 [id number] 00:00:00 00:00:00 Only Unassigned, JULIUS 350.1.13.10 [place] [facility] 4.2.7.2.686 [phone] 009 2020-01-31 2020-01-31 Orders Doctor THOMAS 1.2.840.114 [id number] Univers 00:00:00 00:00:00 Only Unassigned, JULIUS 350.1.13.10 ity of [place] [facility] 4.2.7.2.686 Man[place] as [phone] [address] 2020-01-23 2020-01-23 Orders Doctor THOMAS 1.2.840.114 [id number] 00:00:00 00:00:00 Only Unassigned, JULIUS 350.1.13.10 [place] [facility] 4.2.7.2.686 [phone] 2020-01-23 2020-01-23 Orders Doctor THOMAS 1.2.840.114 [id number] Univers 00:00:00 00:00:00 Only Unassigned, JULIUS 350.1.13.10 ity of [place] [facility] 4.2.7.2.686 Manuel as [phone] [address] 2020-01-09 2020-01-09 Telephone [facility] 1.2.840.114 [id number] 00:00:00 00:00:00 [facility] 350.1.13.10 [place] 4.2.7.2.686 Professio [phone] nal [facility] Office [facility] 2020-01-09 2020-01-09 Telephone [facility] 1.2.840.114 [id number] [facility] 00:00:00 00:00:00 [facility] 350.1.13.10 it y of [place] 4.2.7.2.686 Manuel as Professio [phone] Co dic[address] Office [facility] 2020-01-08 2020-01-[address] [facility] [id number] [facility] 16:40:00 16:40:00 ity of [facility] 2020-01-08 2020-01-08 Urgent Provider, [facility] 1.2.946.954 [id number] 16:10:58 16:30:58 [facility] 350.1.13.10 [place] 4.2.7.2.686 Professio [phone] [address] 2020-01-08 2020-01-08 Urgent Provider, [facility] 1.2.840.114 [id number] [facility] 16:10:58 16:30:58 Care Anene, [facility] 350.1.13.10 ity of [place] 4.2.7.2.686 Manuel as Professio [phone] Co dical [address] 2019-11-29 2019-11-29 Orders Doctor GUZMAN 1.2.840.114 [id number] 00:00:00 00:00:00 Only Unassigned, JULIUS 350.1.13.10 [place] [facility] 4.2.7.2.686 [phone] [facility] 2019-11-29 2019-11-29 Orders Doctor THOMAS 1.2.840.114 [id number] [facility] 00:00:00 00:00:00 Only Unassigned, JULIUS 350.1.13.10 ity of [place] [facility] 4.2.7.2.686 Manuel as [phone] [address] 2019-11-17 2019-11-18 [facility] 1.2.840.114 [id number] 08:28:10 17:49:23 Visit Lidia Miller 350.1.13.10 [place] 4.2.7.2.686 Professio [phone] [address] 2019-11-17 2019-11-18 [facility] 1.2.840.114 [id number] [facility] 08:28:10 17:49:23 Visit Lidia Miller 350.1.13.10 ity of [place]2.[place].2.[place] [phone] Co dic[address] 2019-11-17 2019-11-17 [facility] [id number] Univers 08:45:00 08:45:00 LIDIA farley [facility] 2019-11-13 2019-11-13 [facility] [id number] Univers 09:00:00 09:00:00 SENDIL ity of [facility] 2019-11-13 2019-11-13 Orders Doctor THOMAS 1.2.840.114 [id number] Univers 00:00:00 00:00:00 Only Unassigned, JULIUS 350.1.13.10 ity of [place] [facility] 4.2.7.2.686 Manuel as [phone] [address] 2019-11-01 2019-11-01 Telephone [facility] 1.2.840.114 [id number] Univers 00:00:00 00:00:00 Sam Miller 350.1.13.10 i ty of [place]2.7.2.[place] Profess[place] [phone] Co dical nal 044 [facility] 2019-10-27 2019-10-27 Office [facility] 1.2.840.114 [id number] Univers 09:30:53 10:29:54 Visit Lidia Miller 350.1.13.10 ity of [place]2.[place].2.[place] [phone] Co dical nal 205 [facility] 2019-10-27 2019-10-27 Outpatient R [facility] [id number] Univers 10:00:00 10:00:00 LIDIA farley [facility] 2019-10-27 2019-10-27 Telephone [facility] 1.2.656.325 [id number] Univers 00:00:00 00:00:00 Librado Miller 350.1.13.10 ity of [place]2.7.2.[place] [phone] Co dical nal 059 [facility] 2019-10-27 2019-10-27 Telephone [facility] 1.2.044.703 [id number] Univers 00:00:00 00:00:00 Librado Miller 350.1.13.10 ity of [place]2.[place].2.[place] [phone] Co dical nal 059 [facility] 2019-10-21 2019-10-21 [facility] 1.2.840.114 [id number] Univers 00:00:00 00:00:00 Management Chela [place] 350.1.13.10 ity of [place]2.[place].2.[place] Profess[place] [phone] [facility] nal [address] [place] [address] 2019-10-20 2019-10-20 Telephone [facility] 1.2.840.114 [id number] Univers 00:00:00 00:00:00 Sam Miller 350.1.13.10 i ty of [place].2.7.2.[place] [phone] [address] 2019-10-17 2019-10-17 Office [facility] 1.2.840.114 [id number] Univers 11:20:37 12:12:34 Visit Librado Miller 350.1.13.10 ity of [place]2.7.2.[place] [phone] [address] 2019-10-17 2019-10-17 Outpatient R JOSE ALB[facility]O [facility] [id number] Univers 11:40:00 11:40:00 LIBRADO to o f [facility] 2019-10-16 2019-10-16 Telephone [facility] 1.2.885.402 [id number] Univers 00:00:00 00:00:00 Simi Miller 350.1.13.10 i ty of [place].2.[place] [phone] [facility] nal 059 [facility] 2019-10-10 2019-10-10 Refill [facility] 1.2.840.114 [id number] Univers 00:00:00 00:00:00 Simi Malone 350.1.13.10 it y of [place] 4.2.7.2.686 Manuel as Professio [phone] [address] 2019-09-07 2019-09-07 Telephone [facility] 1.2.115.895 [id number] Univers 00:00:00 00:00:00 [facility]il [facility] 350.1.13.10 ity of [place]2.7.2.686 [place] [phone] [address] 2019-09-01 2019-09-01 [facility] 1.2.840.114 [id number] Univers 11:04:23 11:45:55 Visit Oli Kirit.MichaelaTrina [place] 350.1.13.10 ity of [place]2.7.2.[place] [phone] [address] 2019-09-01 2019-09-01 [facility] [id number] Univers 11:00:00 11:00:00 SENDIL ity [facility] 2019-07-21 2019-07-[address] [facility] [id number] Univers 10:30:00 10:30:00 SAM ity [facility] 2019-07-21 2019-07-[address] [facility] [id number] Univers 09:15:00 09:15:00 WONDIFUL ity o f [facility] 2019-07-21 2019-07-21 Telemedici [facility] 1.2.840.114 [id number] Univers 07:53:52 08:08:52 ne Visit Sam Miller 350.1.13.10 ity of [place]2.7.2.686 [place] [phone] [address] 2019-07-10 2019-07-10 Refliborio [facility] 1.2.840.114 [id number] Univers 00:00:00 00:00:00 [facility] 350.1.13.10 it y of [place] 4.2.7.2.686 Manuel as Professio [phone] [address] 2019-06-09 2019-06-09 Refliborio [facility] 1.2.840.114 [id number] Univers 00:00:00 00:00:00 [facility] 350.1.13.10 it y of [place] 4.2.7.2.686 Manuel as Professio [phone] [address] 2019-05-12 2019-05-12 Front Desk Coordinator Pc, [facility] Room 1 - [facility] 1.2.840.114 [id number] Univers 08:03:52 12:08:17 Visit Oli Jeffrey 350.1.13. 10 ity of [place].2.[place] Profess[place] [phone] [facility] nal [address] [place] [address] 2019-05-12 2019-05-12 Front Desk Coordinator Pc, [facility] Room 1 - [facility] 1.2.840.114 [id number] [facility] 08:03:22 12:07:58 Visit Oli Jeffrey 350.1.13. 10 ity of [place]2.7.2.[place] Professio [phone] [facility] nal [address] [place] [address] 2019-05-01 2019-05-02 Office [facility] 1.2.840.114 [id number] Univers 16:37:44 13:25:33 Visit [facility] 350.1.13.10 it y of [place] 4.2.7.2.686 Manuel as Professio [phone] [address] 2019-05-02 2019-05-02 Office [facility] 1.2.840.114 [id number] Univers 09:14:48 10:02:07 Visit Jamesjermaine Miller 350.1.13.10 ity of [place]2.7.2.[place] [phone] Co dicor nal [address] [place] [address] 2019-05-02 2019-05-02 Telephone [facility] 1.2.097.115 [id number] Univers 00:00:00 00:00:00 [facility] 350.1.13.10 it y of [place] 4.2.7.2.686 Manuel as Professio [phone] Co dical nal [address] [place] Office Building One 2019-04-30 2019-05-01 Emergency X SINGER [facility] ERT [id number] Univers 23:28:52 01:43:00 JOSE to [facility] 2019-04-30 2019-05-01 Emergency [facility] 1.2.175.056 [id number] Univers 23:28:52 01:43:00 Jose Miller 350.1.13.10 i ty of [place] 4.2.7.2.686 [place] [facility] [phone] [address] 2019-04-18 2019-04-18 Telephone Sd [facility] 1.2.173.529 [id number] Univers 00:00:00 00:00:[address] [facility] 350.1.13.10 it y of [place] 4.2.7.2.686 Manuel as Professio [phone] [facility] 0[address] [place] Office Building One 2019-03-09 2019-03-[address] [facility] [id number] Univers 17:12:34 23:59:00 SIMI to [facility] 2018-12-07 2018-12-07 Outpatient [facility] [id number] Common 08:19:00 08:19:[address] [facility] [address] [facility] 2018-12-06 2018-12-06 Outpatient [facility] [id number] Common 10:40:00 10:40:[address] [facility] [address] [facility] 2018-11-22 2018-11-22 Outpatient [facility] [id number] Common 09:02:00 09:02:[address] [facility] [address] [facility] 2018-11-18 2018-11-18 Outpatient [facility] [id number] Common 09:05:00 09:05:[address] [facility] [address] [facility] 2018-11-10 2018-11-10 Outpatient [facility] [id number] Common 16:00:00 16:00:[address] [facility] [address] [facility] 2018-10-19 2018-10-19 Outpatient [facility] [id number] Common 14:30:00 14:30:[address] [facility] [address] [facility] 2018-06-14 2018-06-14 Outpatient [facility] [id number] Common 08:32:00 08:32:[address] [facility] [address] [facility] 2018-06-07 2018-06-07 Outpatient [facility] [id number] Common 13:45:00 13:45:[address] [facility] [address] [facility] 2016-10-01 2016-10-02 [facility] 4626 [id number] Memoria 15:22:00 04:59:00 r Nader 01 l RAVEN Doe 2016-10-01 2016-10-02 Outpatient nullFlavo [facility] 4626 [id number] Memoria 15:22:00 04:59:00 r Nader 01 l RAVEN Doe 2016-10-01 2016-10-01 Outpatient Thosani, [facility] [id number] 10:22:00 23:59:00 Darwin 01 [facility] 2016-07-02 2016-07-03 [facility] 4626 [id number] Memoria 15:08:00 04:59:00 r Nader 00 l RAVEN Doe 2016-07-02 2016-07-03 [facility] 4626 [id number] Memoria 15:08:00 04:59:00 r Nader 00 l EDDC Nader 2016-07-02 2016-07-02 Outpatient Thosani, [facility] [id number] 10:08:00 23:59:00 Darwin 00 Darrell [facility] 2010-10-24 2010-10-24 Orders Doctor THOMAS 1.2.840.114 [id number] 00:00:00 00:00:00 Only Unassigned, JULIUS 350.1.13.10 ity [place] [facility] 4.2.7.2.686 Manuel as [phone] Medi jorge l 009 Branch Results Test Description Test Time Test Comments Results Result Comments Source Prepare [facility] 2022-01-26 23:54:00 Test Item Value Reference Range Interpretation Comme nts Unit ABO (test code = 0132576) O Pos UNIT NUMBER (test code = 934-0) [id number] Status (test code = 4702568) WORK IN PROGRESS Blood Bank Product (test code = 2263) RED BLOOD CELLS PRODUCT CODE (test code = 933-2) [id number] CROSSMATCH (test code = 2264) COMPATIBLE [facility] [id number] 23:54:00 Test Item Value Reference Range Interpretation Comments Unit ABO (test code = O Pos 6446901) UNIT NUMBER (test code = [id number] 934-0) Status (test code = 8602937) WORK IN PROGRESS Blood Bank Product (test RED BLOOD CELLS code = 2263) PRODUCT CODE (test code = Y7728T71 933-2) CROSSMATCH (test code = COMPATIBLE 2264) [facility] [id number] 23:54:00 Test Item Value Reference Range Interpretation Comments Unit ABO (test code = O Pos 1598533) UNIT NUMBER (test code = [id number] 934-0) Status (test code = 4514263) WORK IN PROGRESS Blood Bank Product (test RED BLOOD CELLS code = 2263) PRODUCT CODE (test code = J9667M97 933-2) CROSSMATCH (test code = COMPATIBLE 2264) [facility] CenterAntibody [id number] 16:44:00 Test Item Value Reference Range Interpretation Comments ANTIBODY ID [id number]-OzLfuv-GlvG anti-c, ant i-Jkb, (BEAKER) (test nti-c anti-Bg code = 2253) Antibody Consult SIGNED OUT Anti Jkb ca uses RBC (test code = 2479) injury, t ransfuse Jkb negative RBCs.Anti c cau ses RBC injury, transfuse c neg ative RBCs. Anti Bga detected - but this antibody is clinicallty insignificant.E lectr onic Signature: Giorgi Ugarte M.D. [facility] CenterAntibody [id number] 16:44:00 Test Item Value Reference Range Interpretation Comments ANTIBODY ID [id number]-AiJjsi-EthJ anti-c, ant i-Jkb, (BEAKER) (test nti-c anti-Bg code = 2253) Antibody Consult SIGNED OUT Anti Jkb ca uses RBC (test code = 2479) injury, t ransfuse Jkb negative RBCs.Anti c cau ses RBC injury, transfuse c neg ative RBCs. Anti Bga detected - but this antibody is clinicallty insignificant.E lectr onic Signature: Giorgi Ugarte M.D. [facility] CenterAntibody [id number] 16:44:00 Test Item Value Reference Range Interpretation Comments ANTIBODY ID Koww-HwYjmu-JocY anti-c, ant i-Jkb, (BEAKER) (test nti-c anti-Bg code = 2253) Antibody Consult SIGNED OUT Anti Jkb ca uses RBC (test code = 2479) injury, t ransfuse Jkb negative RBCs.Anti c cau ses RBC injury, transfuse c neg ative RBCs. Anti Bga detected - but this antibody is clinicallty insignificant.E lectr onic Signature: Giorgi Ugarte M.D. [facility] CenterHEMOGLOBIN [id number] 12:19:10 Test Item Value Reference Range Interpretation Comments HEMOGLOBIN A1C 6.1 % See_Comment H [Automated m essage] ELECTROPHORESIS ([facility]) The system which (test code = 3811) generated this result transmitted ref erence range: <=5.6%. The reference range was not used to int erpret this result as normal/abnormal . "The A1c is measured using a NGSP-certified method. HbA1c value equal to or greater than 6.5% as thediagnosis cutoff for diabetes. An HbA1c value of 5.7- 6.4% indicates increased risk for diabetes (prediabetes)."Waste Removalist ID - ADMOperator ID - ADMPOC-Glucose [id number] 10:47:05 Test Item Value Reference Range Interpretation Comments POC-Glucose Meter (test 231 mg/dL 70-110 H : TE STED AT [facility] code = 1538) 0967 [facility], 770 30: Waste Removalist/Techni lyndsay ID = [id number] for Arielle Herzog on Lab Interpretation (test Abnormal code = 44643-9) [facility] CenterPOC-Glucose [id number] 10:47:05 Test Item Value Reference Range Interpretation Comments POC-Glucose Meter (test 231 mg/dL 70-110 H : TE STED AT [facility] code = 1538) 6720 [facility], 770 30: Waste Removalist/Techni lyndsay ID = [id number] for Arielle Herzog on Lab Interpretation (test Abnormal code = 11050-6) [facility] CenterPOC-Glucose [id number] 10:47:05 Test Item Value Reference Range Interpretation Comments POC-Glucose Meter (test 231 mg/dL 70-110 H : TE STED AT [facility] code = 1538) 6720 [facility], 770 30: Waste Removalist/Techni lyndsay ID = [id number] for Arielle Herzog on Lab Interpretation (test Abnormal code = 87688-1) [facility] CenterPOCT-GLUCOSE [id number] 10:47:05 Test Item Value Reference Range Interpretation Comments POC-GLUCOSE METER 231 mg/dL 70-110 H : TESTED A T [facility] 6720 (BEAKER) (test code = [facility] Belia [facility], 1538) 35164: Waste Removalist/Techni lyndsay ID = [id number] for Do clarke Yvan POCT-GLUCOSE [id number] 09:39:47 Test Item Value Reference Range Interpretation Comments POC-GLUCOSE METER 211 mg/dL 70-110 H : TESTED A T [facility] 6720 (BEAKER) (test code [facility], = 1538) 24377: Waste Removalist/Techni lyndsay ID = [id number] for Soraya Tamayo [id number] 06:47:20 Test Item Value Reference Range Interpretation Comments MAGNESIUM (BEAKER) (test code = 1.8 mg/dL 1.6-2.6 627) Waste Removalist ID - BARBARA MBASIC METABOLIC [id number] 06:47:19 Test Item Value Reference Range Interpretation [...] not as accur ate as Creatinine Denisse aleksandar in predicting glom erular filtration rate . Estimated GFR is not appl icable for dialysis patien ts Waste Removalist ID - BARBARA [facility] (HEMOGRAM ONLY)2022-01-26 05:00:02 Test Item Value Reference [...] RED BLOOD CELLS 0 /100 WBC 0-0 (AKER) (test code = 413) POCT-GLUCOSE [id number] 04:30:25 Test Item Value Reference Range Interpretation Comments POC-GLUCOSE METER 230 mg/dL 70-110 H : TESTED A T [facility] 6720 ([facility]) (test code = GIRISH [place], 1538) 74522: Waste Removalist/Techni lyndsay ID = [id number] for MIS DONALDSON POCT-GLUCOSE [id number] 22:24:40 Test Item Value Reference Range Interpretation Comments POC-GLUCOSE METER 286 mg/dL 70-110 H : TESTED A T [facility] 6720 (BEAKER) (test code = [facility] Belia [facility], 1538) 18639: Waste Removalist/Techni lyndsay ID = [id number] for MIS DONALDSON RAD, CHEST, 1 VIEW, NON [id number] 18:09:00Reason for exam:->PICC PlacementShould this be performed at the bedside?->Yes [facility] : 1945 Sex: FFINAL [...] level of the mid thoracic spine. Signed: Wells, Bhanu MDReport Verified Date/Time: 01/25/2022 18:09:25 POCT-GLUCOSE [id number] 16:50:37 Test Item Value Reference Range Interpretation Comments POC-GLUCOSE METER 151 mg/dL 70-110 H : TESTED A T [facility] 6720 (BEAKER) (test code = [place], 1538) 51647: Waste Removalist/Techni lyndsay ID = [id number] for RIAN LAKHANI SARS-CoV2/RT-PCR ([facility])2022-01-25 15:12:09 Test Item Value Reference Interpretation Comments Range SARS-COV2/RT-PCR Negative Negative The SARS-Co V-2 (test code = target nucleic 55571-7) acids are not detected in thi s [...] om SARS-CoV-2 in a nasopharyngeal swab specimen colle bruna from individual s suspected of COVID-19 [...] revoked sooner. Fact Sheet for Healthcare Providers: https://www.[employer].com/Documents/Xp ert%20Xpress%20SAR S%20CoV-2/Fact%20S heets/302-3802%20S ARS-COV-2%20HEALTH CARE%20PROVIDERS%2 0FACT%20SHEET.pdf Fact Sheet for Healthcare Patients: https://www.[employer]/Documents/Xp ert%20Xpress%20SAR S%20CoV-2/Fact%20S heets/302-3801%20S ARS-COV-2%20PATIEN T%20FACT%20SHEET.p df Lab Interpretation Normal (test code = 80982-5) [facility])2022-01-25 15:12:09 Test Item Value Reference Interpretation Comments Range SARS-COV2/RT-PCR Negative Negative The SARS-Co V-2 (test code = target nucleic 69496-4) acids are not detected in thi s [...] revoked sooner. Fact Sheet for Healthcare Providers: https://www.[employer]/Documents/Xp ert%20Xpress%20SAR S%20CoV-2/Fact%20S heets/3023802%20S ARS-COV-2%20HEALTH CARE%20PROVIDERS%2 0FACT%20SHEET.pdf Fact Sheet for Healthcare Patients: https://www.[employer]/Documents/Xp ert%20Xpress%20SAR S%20CoV-2/Fact%20S heets/302-3801%20S ARS-COV-2%20PATIEN T%20FACT%20SHEET.p df Lab Interpretation Normal (test code = 22635-1) [facility]2022-01-25 15:12:09 Test Item Value Reference Interpretation Comments Range SARS-COV2/RT-PCR Negative Negative The SARS-Co V-2 (test code = target nucleic 99050-3) acids are not detected in thi s [...] revoked sooner. Fact Sheet for Healthcare Providers: https://www.[employer]/Documents/Xp ert%20Xpress%20SAR S%20CoV-2/Fact%20S heets/302-3802%20S ARS-COV-2%20HEALTH CARE%20PROVIDERS%2 0FACT%20SHEET.pdf Fact Sheet for Healthcare Patients: https://www.[employer]/Documents/Xp ert%20Xpress%20SAR S%20CoV-2/Fact%20S heets/302-3801%20S ARS-COV-2%20PATIEN T%20FACT%20SHEET.p df Lab Interpretation Normal (test code = 75069-4) [facility])2022-01-25 15:12:09 Test Item Value Reference Range Interpretation Comments SARS-COV2/RT-PCR Negative Negative The SARS-Co V-2 target (test code = nucleic acids a re not 2046605) detected in thi s specimen. Negative result [...] revoked sooner. Fact Sheet for Healthcare Providers: https://www.[employer].co m/Documents/Xpert%20Xpress%20SARS%20CoV-2/Fact%20Sheets/302-3802%17NMEB-IHI-3%20 HEALTHCARE%20PROVIDERS%20FACT%20SHEET.pdf Fact Sheet for Healthcare Patients: https://www.[employer]/Documents/Xpert%20Xp ress%20SARS%20CoV-2/Fact%20Sheets/302-3801%20YOLU-ROV-3%20PATIENT%20FACT%20SHEET .pdfPOCT-GLUCOSE [id number] 12:11:38 Test Item Value Reference Range Interpretation Comments POC-GLUCOSE METER 270 mg/dL 70-110 H : TESTED A T [facility] 6720 (BEAKER) (test code = GIRISH Celaya [facility], 1538) 84003: Waste Removalist/Techni lyndsay ID = [id number] for RIAN LAKHANI POCT-GLUCOSE [id number] 05:54:12 Test Item Value Reference Range Interpretation Comments POC-GLUCOSE METER 73 mg/dL 70-110 : TESTED A T [facility] 6720 (BEAKER) (test code = GIRISH Celaya [facility], 1538) 12533: Waste Removalist/Techni lyndsay ID = [id number] for Kehinde Lisa COMPREHENSIVE METABOLIC [id number] 05:29:07 Test Item Value Reference Range Interpretation [...] not as accur ate as Creatinine Denisse aleksandar in predicting glom erular filtration rate . Estimated GFR is not appl icable for dialysis patien ts Waste Removalist ID - TAWANNA Letor ID - TAWANNA [id number] 04:42:32 Test Item Value Reference Range Interpretation Comments FERRITIN (BEAKER) (test code = 23.21 ng/mL 5.00-275.00 361) Waste Removalist ID - TAW[place]NA PACE, TIBC, % SAT. (WITHOUT FERRITIN)2022-01-25 04:32:43 Test Item Value Reference Range Interpretation Comments IRON (BEAKER) (test code = 547) 19.0 ug/dL 40.0-160.0 L TOTAL IRON BINDING CAPACITY 320 ug/dL 250-450 (BEAKER) (test code = 769) IRON % SATURATION (2) (BEAKER) 6 % 20-55 L (test code = 2590) Waste Removalist ID Shayan STACY LPT/[id number] 03:53:35 Test Item Value Reference Range Interpretation Comments PROTIME (BEAKER) (test 13.0 seconds 11.9-14.2 code = 759) INR (CleartripAKER) (test 1.00 See_Comment [Automat ed code = [...] mechanical heart valves.CBC W/PLT COUNT & AUTO [id number] 03:50:34 Test Item Value Reference Range Interpretation [...] PERCENT (BEAKER) (test code = 2801) POC-Glucose [id number] 08:45:21 Test Item Value Reference Range Interpretation Comments POC-Glucose Meter (test 193 mg/dL 70-110 H : TE STED AT [facility] code = 1538) [address] [place] [address], [facility] 30: Waste Removalist/Techni lyndsay ID = [id number] for DEOCOS, SONU NE SATNAM Lab Interpretation (test Abnormal code = 06531-5) [facility]-Glucose [id number] 08:45:21 Test Item Value Reference Range Interpretation Comments POC-Glucose Meter (test 193 mg/dL 70-110 H : TE STED AT [facility] code = 1538) [address] [place] [address], 770 30: Waste Removalist/Techni lyndsay ID = [id number] for DEOCOS, SONU NE SATNAM Lab Interpretation (test Abnormal code = 85796-4) [facility]-Glucose [id number] 08:45:21 Test Item Value Reference Range Interpretation Comments POC-Glucose Meter (test 193 mg/dL 70-110 H : TE STED AT [facility] code = 1538) [address] [place] [address], 770 30: Waste Removalist/Techni lyndsay ID = [id number] for DEOCOS, SONU NE SATNAM Lab Interpretation (test Abnormal code = 22366-6) [facility]-Glucose [id number] 08:45:21 Test Item Value Reference Range Interpretation Comments POC-Glucose Meter (test 193 mg/dL 70-110 H : TE STED AT [facility] code = 1538) [address] [place] [address], 770 30: Waste Removalist/Techni lyndsay ID = [id number] for DEOCOS, SONU NE SATNAM Lab Interpretation (test Abnormal code = 56361-8) [facility]-GLUCOSE [id number] 08:45:21 Test Item Value Reference Range Interpretation Comments POC-GLUCOSE METER 193 mg/dL 70-110 H : TESTED A T [facility] 6720 (BEAKER) (test code [facility], = 1538) [address]: Waste Removalist/Techni lyndsay ID = [id number] for NICOLA LONGO POCT-GLUCOSE [id number] 08:45:15 Test Item Value Reference Range Interpretation Comments POC-GLUCOSE METER 165 mg/dL 70-110 H : TESTED A T [facility] 6720 (BEAKER) (test code = [facility], [facility]) 134[address]: Waste Removalist/Techni lyndsay ID = [id number] for PE PATRICIA, WALTER POCT-GLUCOSE [id number] 08:45:15 Test Item Value Reference Range Interpretation Comments POC-GLUCOSE METER 142 mg/dL 70-110 H : TESTED A T [facility] 6720 (BEAKER) (test code = [facility], [facility]) 00063: Waste Removalist/Techni lyndsay ID = [id number] for PE PATRICIA, WALTER POCT-GLUCOSE [id number] 08:45:15 Test Item Value Reference Range Interpretation Comments POC-GLUCOSE METER 136 mg/dL 70-110 H : TESTED A T [facility] 6720 (BEAKER) (test code = [facility], [facility]) 55868: Waste Removalist/Techni lyndsay ID = [id number] for TH OMPSON, FLORENCE POCT-GLUCOSE [id number] 08:45:14 Test Item Value Reference Range Interpretation Comments POC-GLUCOSE METER 250 mg/dL 70-110 H : TESTED A T [facility] 6720 (BEAKER) (test code = [facility], [facility]) 92873: Waste Removalist/Techni lyndsay ID = [id number] for TH OMPSON, FLORENCE POCT-GLUCOSE [id number] 08:45:14 Test Item Value Reference Range Interpretation Comments POC-GLUCOSE METER 139 mg/dL 70-110 H : TESTED A T [facility] 6720 (BEAKER) (test code = [facility], 153) 68629: Waste Removalist/Techni lyndsay ID = [id number] for Zully Spear [id number] 00:00:00resultCOMP. METABOLIC PANEL (87647)2021-08-04 04:03:33 Test Item Value Reference Range Interpretation Comments NA (test code = 131 mmol/L 135-145 L 9877152609) K (test code = 5.3 mmol/L 3.5-5.0 H 5496953572) CL (test code = 97 mmol/L 98-108 L 0671814403) CO2 TOTAL (test code = 23 mmol/L 23-31 2383464166) AGAP (test code = 2-16 4957177446) BUN (test code = 23 mg/dL 7-23 3496080631) GLUCOSE (test code = 418 mg/dL 70-110 H 5888952335) CREATININE (test code = 1.05 mg/dL 0.50-1.04 H 7436777778) TOTAL BILI (test code = 0.4 mg/dL 0.1-1.9 7728830750) CALCIUM (test code = 9.8 mg/dL 8.6-10.6 6576572709) T PROTEIN (test code = 6.5 g/dL 6.3-8.2 9310673503) ALBUMIN (test code = 4.1 g/dL 3.5-5.0 9891903321) ALK PHOS (test code = 82 U/L 34-122 6888829959) ALTv (test code = 14 U/L 5-35 1742-6) AST(SGOT) (test code = 17 U/L 13-40 2083433001) eGFR (test code = mL/min/1.73m2 8907711210) ELLIOT (test code = ELLIOT) Association of [...] tests). Lab Interpretation Abnormal (test code = 37384-2) [facility] Test Item Value Reference Range Interpretation Comments LIPASE (test code = 7092110010) 396 U/L 0-220 H Lab Interpretation (test code = Abnormal 67314-1) [facility] WITH [id number] 03:45:51 Test Item Value Reference Range Interpretation [...] (test code = 50.9 fL 39.0-49.9 H 28134-1) RDW-CV (test code = 15.7 % 12.0-15.5 H 788-0) PLT (test code = See_Comment H [Automated 777-3) message] The system which generated this result transmit bruna reference range : 166 - 358 10*3/ ?L. The reference range was not u sed to interpret th is result as normal/abnormal . MPV (test code = 10.4 fL 9.5-12.9 81271-5) NRBC/100 WBC (test See_Comment [Automat ed code = 4220973298) message] The system which generated this result transmit bruna reference range : 0.0 - 10.0 /100 WBCs. The reference range was not used to interpret this result as normal/abnormal . NRBC x10^3 (test code See_Comment [Auto mated = 3510245778) message] The system which generated this result transmit bruna reference range : 10*3/?L. The reference range was not used to interpret this result as normal/abnormal . GRAN MAT (NEUT) % 80.7 % (test code = 770-8) IMM GRAN % (test code 0.60 % = 4737211665) LYMPH % (test code = 9.4 % 736-9) MONO % (test code = 6.6 % 5905-5) EOS % (test code = 1.8 % 713-8) BASO % (test code = 0.9 % 706-2) GRAN MAT x10^3(ANC) 13.34 10*3/uL 1.88-7.09 H (test code = 2875921155) IMM GRAN x10^3 (test 0.10 10*3/uL 0.00-0.06 H code = 2146413353) LYMPH x10^3 (test code 1.55 10*3/uL 1.32-3.29 = 731-0) MONO x10^3 (test code 1.09 10*3/uL 0.33-0.92 H = 742-7) EOS x10^3 (test code = 0.29 10*3/uL 0.03-0.39 711-2) BASO x10^3 (test code 0.15 10*3/uL 0.01-0.07 H = 704-7) Lab Interpretation Abnormal (test code = 62546-5) [facility] [id number] 08:26:00 Test Item Value Reference Range Interpretation Comments POC-GLUCOSE METER 175 mg/dL 70-110 H TESTED AT [place] [address] (BEAKER) (test code = [place] 1538) [address] [id number] 07:30:00 Test Item Value Reference Range Interpretation Comments MAGNESIUM (BEAKER) 1.8 mg/dL 1.6-2.6 Specimen slightly (test code = 627) hemolyzed [id number] 07:30:00 Test Item Value Reference Range Interpretation Comments PHOSPHORUS (BEAKER) 3.2 mg/dL 2.3-4.7 Specimen slightly (test code = 604) hemolyzed BASIC METABOLIC [id number] 07:30:00 Test Item Value Reference Range Interpretation [...] PATIEN TS. CBC W/PLT COUNT & AUTO [id number] 06:50:00 Test Item Value Reference Range Interpretation [...] PERCENT (BEAKER) (test code = 2801) POCT-GLUCOSE [id number] 21:15:00 Test Item Value Reference Range Interpretation Comments POC-GLUCOSE METER 246 mg/dL 70-110 H TESTED AT [facility] 6720 (BEAKER) (test code = [place] 1538) [address] POCT-GLUCOSE [id number] 17:16:00 Test Item Value Reference Range Interpretation Comments POC-GLUCOSE METER 323 mg/dL 70-110 H TESTED AT [place] [address] (BEAKER) (test code = [place] 1538) [address] POCT-GLUCOSE [id number] 13:13:00 Test Item Value Reference Range Interpretation Comments POC-GLUCOSE METER 250 mg/dL 70-110 H TESTED AT [place] [address] (BEAKER) (test code = [place] 1538) [address] POCT-GLUCOSE [id number] 08:26:00 Test Item Value Reference Range Interpretation Comments POC-GLUCOSE METER 261 mg/dL 70-110 H TESTED AT [place] [address] (BEAKER) (test code = [place] 1538) [address] CALCIUM, [id number] 06:39:00 Test Item Value Reference Range Interpretation Comments CALCIUM IONIZED (BEAKER) (test 1.08 mmol/L 1.12-1.27 L code = 698) PH, BLOOD (BEAKER) (test code = 7.47 1810) [id number] 05:53:00 Test Item Value Reference Range Interpretation Comments PHOSPHORUS (BEAKER) (test code = 4.1 mg/dL 2.3-4.7 604) [id number] 05:53:00 Test Item Value Reference Range Interpretation Comments MAGNESIUM (BEAKER) (test code = 1.7 mg/dL 1.6-2.6 627) BASIC METABOLIC [id number] 05:53:00 Test Item Value Reference Range Interpretation [...] PATIEN TS. CBC W/PLT COUNT & AUTO [id number] 05:32:00 Test Item Value Reference Range Interpretation [...] EOSINOPHILS ABSOLUTE COUNT 0.35 K/ L 0.04-0.36 ([facility]) (test code = 416) BASOPHILS ABSOLUTE COUNT ([facility]) 0.07 K/ L 0.01-0.08 (test code = 417) IMMATURE GRANULOCYTES-RELATIVE 0 % 0-1 PERCENT ([facility]) (test code = 2801) POCT-GLUCOSE [id number] 22:58:00 Test Item Value Reference Range Interpretation Comments POC-GLUCOSE METER 390 mg/dL 70-110 H Notified R N or ([facility]) (test code = Chapo nicolas refused repeat 1538) test/TESTED AT [address] [address] POCT-GLUCOSE [id number] 21:18:00 Test Item Value Reference Range Interpretation Comments POC-GLUCOSE METER 404 mg/dL 70-110 HH Notified R Jose MD/TESTED ([facility]) (test code = AT [address] 1538) [facility] 7[address] 0 POCT-GLUCOSE [id number] 17:45:00 Test Item Value Reference Range Interpretation Comments POC-GLUCOSE METER 217 mg/dL 70-110 H TESTED AT [place] [address] ([facility]) (test code = [place] [facility] 1538) [address] POCT-GLUCOSE [id number] 12:07:00 Test Item Value Reference Range Interpretation Comments POC-GLUCOSE METER 209 mg/dL 70-110 H TESTED AT [place] [address] ([facility]) (test code = [place] [facility] 1538) [address] HEMOGLOBIN [id number] 07:58:00 Test Item Value Reference Range Interpretation Comments HEMOGLOBIN A1C ([facility]) (test code = 5.8 % 4.3-6.1 368) TSH/FREE T4 IF [id number] 05:30:00 Test Item Value Reference Range Interpretation Comments THYROID STIMULATING HORMONE 1.75 uIU/mL 0.35-4.94 ([facility]) (test code = 772) POCT-GLUCOSE [id number] 05:21:00 Test Item Value Reference Range Interpretation Comments POC-GLUCOSE METER 213 mg/dL 70-110 H TESTED AT [place] [address] ([facility]) (test code = [place] [facility] 1538) [address] [id number] 05:11:00 Test Item Value Reference Range Interpretation Comments PHOSPHORUS (BEAKER) (test code = 4.0 mg/dL 2.3-4.7 604) [id number] 05:11:00 Test Item Value Reference Range Interpretation Comments MAGNESIUM (BEAKER) (test code = 1.7 mg/dL 1.6-2.6 627) BASIC METABOLIC [id number] 05:11:00 Test Item Value Reference Range Interpretation [...] NOT APPLICABLE FOR DIALYSIS PATIEN TS. LIPID [id number] 05:11:00 Test Item Value Reference Range Interpretation [...] Very High >=190CBC W/PLT COUNT & AUTO [id number] 04:48:00 Test Item Value Reference Range Interpretation [...] PERCENT (BEAKER) (test code = 2801) CALCIUM, [id number] 04:13:00 Test Item Value Reference Range Interpretation Comments [facility]IZ[facility] (test 1.15 mmol/L 1.12-1.27 code = 698) PH, BLOOD ([facility]) (test code = 7.47 1810) POCT-GLUCOSE [id number] 21:03:00 Test Item Value Reference Range Interpretation Comments POC-GLUCOSE METER 220 mg/dL 70-110 H TESTED AT [place] [address] ([facility]) (test code = [facility] 1538) [address] IRON, TIBC, % SAT. (WITHOUT FERRITIN)2016-12-13 19:01:00 Test Item Value Reference Range Interpretation Comments IRON (BEAKER) (test code = 547) 23 ug/dL 40-160 L TOTAL IRON BINDING CAPACITY 404 ug/dL 250-450 (BEAKER) (test code = 769) IRON % SATURATION (2) ([facility]) 6 % 20-55 L (test code = 2590) POCT-GLUCOSE [id number] 17:23:00 Test Item Value Reference Range Interpretation Comments POC-GLUCOSE METER 371 mg/dL 70-110 H TESTED AT [place] [address] ([facility]) (test code = [facility] 1538) [address] POCT-GLUCOSE [id number] 05:33:00 Test Item Value Reference Range Interpretation Comments POC-GLUCOSE METER 227 mg/dL 70-110 H TESTED AT [address] ([facility]) (test code [address] [facility] [place] = 1538) [address] POCT-GLUCOSE [id number] 20:59:00 Test Item Value Reference Range Interpretation Comments POC-GLUCOSE METER 266 mg/dL 70-110 H TESTED AT [address] ([facility]) (test code [facility] [address] [facility] [place] = 1538) [address] POCT-GLUCOSE [id number] 20:58:00 Test Item Value Reference Range Interpretation Comments POC-GLUCOSE METER 300 mg/dL 70-110 H TESTED AT [address] ([facility]) (test code [facility] [place] = 1538) [address] POCT-GLUCOSE [id number] 20:58:00 Test Item Value Reference Range Interpretation Comments POC-GLUCOSE METER 177 mg/dL 70-110 H TESTED AT [address] ([facility]) (test code [facility] [place] = 1538) [address] HEMORRHAGE IMAGING, [id number] 13:30:00FINAL REPORT PROCEDURE: HEMORRHAGE STUDY with RBCs CPT CODE: 54520 INDICATION: G astrointestinal Bleeding PROTOCOL: 21.5 mCi [...] MDReport Verified Date/Time: 12/12/2016 13:30:53 Reading Location: [address] Reading Room POCT-GLUCOSE [id number] 11:21:00 Test Item Value Reference Range Interpretation Comments POC-GLUCOSE METER 168 mg/dL 70-110 H TESTED AT [address] ([facility]) (test code [facility] [facility] [place] = 1538) [address] POCT-GLUCOSE [id number] 11:21:00 Test Item Value Reference Range Interpretation Comments POC-GLUCOSE METER 184 mg/dL 70-110 H TESTED AT [address] ([facility]) (test code [facility] [place] = 1538) [address] BASIC METABOLIC [id number] 05:16:00 Test Item Value Reference Range Interpretation [...] S NOT APPLICABLE FOR DIALYSIS PATIEN TS. [id number] 05:10:00 Test Item Value Reference Range Interpretation Comments MAGNESIUM (BEAKER) (test code = 2.0 mg/dL 1.5-3.0 627) CBC W/PLT COUNT & AUTO [id number] 04:57:00 Test Item Value Reference Range Interpretation [...] L 0.00-0.20 (test code = 417) POCT-GLUCOSE [id number] 17:02:00 Test Item Value Reference Range Interpretation Comments POC-GLUCOSE METER 177 mg/dL 70-110 H TESTED AT [address] ([facility]) (test code [facility] [place] = 1538) [address] POCT-GLUCOSE [id number] 11:34:00 Test Item Value Reference Range Interpretation Comments POC-GLUCOSE METER 207 mg/dL 70-110 H TESTED AT [address] ([facility]) (test code [facility] [place] = 1538) [address] CBC W/PLT COUNT & AUTO [id number] 10:45:00 Test Item Value Reference Range Interpretation [...] code = 2+ moderate 963) BASIC METABOLIC [id number] 09:40:00 Test Item Value Reference Range Interpretation [...] S NOT APPLICABLE FOR DIALYSIS PATIEN TS. [id number] 09:39:00 Test Item Value Reference Range Interpretation Comments PHOSPHORUS (BEAKER) (test code = 3.3 mg/dL 2.5-4.5 604) [id number] 09:34:00 Test Item Value Reference Range Interpretation Comments MAGNESIUM (BEAKER) (test code = 2.1 mg/dL 1.5-3.0 627) POCT-GLUCOSE [id number] 06:01:00 Test Item Value Reference Range Interpretation Comments POC-GLUCOSE METER 171 mg/dL 70-110 H TESTED AT [address] (BEAKER) (test code [facility] [facility] [place] = 1538) [address] POCT-GLUCOSE [id number] 06:00:00 Test Item Value Reference Range Interpretation Comments POC-GLUCOSE METER 148 mg/dL 70-110 H TESTED AT [address] (BEAKER) (test code [facility] [facility] [place] = 1538) [address] URINALYSIS W/ [id number] 05:01:00 Test Item Value Reference Range Interpretation [...] = 2795) RAD, CHEST, 1 VIEW, NON [id number] 21:04:00Reason for exam:->coughShould this be performed at [...] disease or interval change. Signed: Sam Sanchez [facility] Verified Date/Time: 12/10/2016 21:04:27 Reading Location: [facility] B1 C013W Consult Reading Room OCCULT BLOOD, [id number] 20:24:00 Test Item Value Reference Range Interpretation Comments FECAL OCCULT BLOOD (BEAKER) (test Positive Negative A code = 618) CBC W/PLT COUNT & AUTO [id number] 20:10:00 Test Item Value Reference Range Interpretation [...] RBCS(BEAKER) 1+ few (test code = 478) [id number] 20:07:00 Test Item Value Reference Range Interpretation [...] is 2.5-3.5 for patients with mechanical heart valves.[id number] 20:07:00 Test Item Value Reference Range Interpretation Comments LIPASE (BEAKER) (test code = 749) 37 U/L 6-51 COMPREHENSIVE METABOLIC [id number] 20:06:00 Test Item Value Reference Range Interpretation [...] GFR I S NOT APPLICABLE FOR DIALYSIS [place] TS. BLOOD [id number] 06:00:00 Test Item Value Reference Range Interpretation Comments CULTURE (BEAKER) (test No growth in 5 days code = 1095) BLOOD [id number] 06:00:00 Test Item Value Reference Range Interpretation Comments CULTURE (BEAKER) (test No growth in 5 days code = 1095) POCT-GLUCOSE [id number] 12:19:00 Test Item Value Reference Range Interpretation Comments POC-GLUCOSE METER 132 mg/dL 70-110 H TESTED AT [place] [address] ([facility]) (test code = [place] [facility] 1538) [address] POCT-GLUCOSE [id number] 11:19:00 Test Item Value Reference Range Interpretation Comments POC-GLUCOSE METER 222 mg/dL 70-110 H TESTED AT [place] [address] ([facility]) (test [facility] = [facility] 1538) [address] POCT-GLUCOSE [id number] 07:21:00 Test Item Value Reference Range Interpretation Comments POC-GLUCOSE METER 309 mg/dL 70-110 H Notified R Jose FELIX/TESTED ([facility]) (test code = AT [address] 1538) [facility] 7703 0 CBC W/PLT COUNT & AUTO [id number] 05:52:00 Test Item Value Reference Range Interpretation Comments WHITE BLOOD CELL COUNT ([facility]) 6.8 K/ L 3.5-10.5 (test code = 775) RED BLOOD CELL COUNT ([facility]) 3.35 M/ L 3.93-5.22 L (test code [...] PERCENT (BEAKER) (test code = 2801) POCT-GLUCOSE [id number] 21:36:00 Test Item Value Reference Range Interpretation Comments POC-GLUCOSE METER 284 mg/dL 70-110 H TESTED AT [facility] 6720 (BEAKER) (test code = [place] [facility] 1538) [address] POCT-GLUCOSE [id number] 17:03:00 Test Item Value Reference Range Interpretation Comments POC-GLUCOSE METER 394 mg/dL 70-110 H Notified R N MD/TESTED (BEAKER) (test code = AT [facility] 6720 [facility] 1538) [facility] 7703 0 POCT-GLUCOSE [id number] 11:47:00 Test Item Value Reference Range Interpretation Comments POC-GLUCOSE METER 332 mg/dL 70-110 H Notified R N MD/TESTED (BEAKER) (test code = AT [place] [id number] [facility] 1538) [facility] 7703 0 POCT-GLUCOSE [id number] 07:19:00 Test Item Value Reference Range Interpretation Comments POC-GLUCOSE METER 350 mg/dL 70-110 H Notified R N MD/TESTED (BEAKER) (test code = AT [place] [address]) [facility] 7703 0 BASIC METABOLIC [id number] 05:27:00 Test Item Value Reference Range Interpretation [...] PATIEN TS. CBC W/PLT COUNT & AUTO [id number] 05:05:00 Test Item Value Reference Range Interpretation [...] PERCENT (BEAKER) (test code = 2801) POCT-GLUCOSE [id number] 22:29:00 Test Item Value Reference Range Interpretation Comments POC-GLUCOSE METER 256 mg/dL 70-110 H TESTED AT [place] [address] ([facility]) (test code = [place] [facility] 1538) [address] POCT-GLUCOSE [id number] 18:52:00 Test Item Value Reference Range Interpretation Comments POC-GLUCOSE METER 366 mg/dL 70-110 H Notified R Jose FELIX/TESTED ([facility]) (test code = AT [place] [address]) [facility] 7703 0 POCT-GLUCOSE [id number] 12:02:00 Test Item Value Reference Range Interpretation Comments POC-GLUCOSE METER 399 mg/dL 70-110 H Notified R Jose FELIX/TESTED ([facility]) (test code = AT [place] [address]) [facility] 7703 0 POCT-GLUCOSE [id number] 09:06:00 Test Item Value Reference Range Interpretation Comments POC-GLUCOSE METER 236 mg/dL 70-110 H TESTED AT [place] [address] ([facility]) (test code = [place] [id number]) [address] POCT-GLUCOSE [id number] 08:28:00 Test Item Value Reference Range Interpretation Comments POC-GLUCOSE METER 271 mg/dL 70-110 H TESTED AT [place] [address] ([facility]) (test code = [place] [address]88) [address] POCT-GLUCOSE [id number] 06:31:00 Test Item Value Reference Range Interpretation Comments POC-GLUCOSE METER 236 mg/dL 70-110 H TESTED AT [place] [address] ([facility]) (test code = GIRISH Celaya [place] [address]) [id number] BASIC METABOLIC [id number] 05:14:00 Test Item Value Reference Range Interpretation [...] 358) GLUCOSE RANDOM 257 mg/dL 70-105 H ([facility]) (test code = 652) CALCIUM (BEAKER) 8.9 mg/dL 8.4-10.2 (test code = 697) EGFR ([facility]) (test 60 mL/min/1.73 ESTIMA BRUNA GFR IS code = 1092) sq m NOT ACCURATE CREATININE CLEARANCE IN PREDICTING GLOMERULAR FILTRATION RATE . ESTIMATED GFR I S NOT APPLICABLE FOR DIALYSIS PATIEN TS. HEMOGLOBIN AND [id number] 05:02:00 Test Item Value Reference Range Interpretation Comments HEMOGLOBIN (BEAKER) (test code = 7.9 GM/DL 11.2-15.7 L 410) HEMATOCRIT (BEAKER) (test code = 25.5 % 34.1-44.9 L 411) POCT-GLUCOSE [id number] 22:05:00 Test Item Value Reference Range Interpretation Comments POC-GLUCOSE METER 235 mg/dL 70-110 H TESTED AT [place] [address] ([facility]) (test code = [facility] 1538) [id number] POCT-GLUCOSE [id number] 21:56:00 Test Item Value Reference Range Interpretation Comments POC-GLUCOSE METER 274 mg/dL 70-110 H TESTED AT [place] [address] ([facility]) (test code = [facility] 1538) [id number] HEMOGLOBIN AND [id number] 21:00:00 Test Item Value Reference Range Interpretation Comments HEMOGLOBIN (BEAKER) (test code = 7.9 GM/DL 11.2-15.7 L 410) [facility] (test code = 26.1 % 34.1-44.9 L 411) POCT-GLUCOSE [id number] 17:28:00 Test Item Value Reference Range Interpretation Comments POC-GLUCOSE METER 291 mg/dL 70-110 H TESTED AT [place] [address] ([facility]) (test code = [facility] 1538) [address] VANCOMYCIN LEVEL, [id number] 14:15:00 Test Item Value Reference Range Interpretation Comments VANCOMYCIN TROUGH ([facility]) (test 18.1 ug/mL 10.0-20.0 code = 522) HEMOGLOBIN AND [id number] 13:53:00 Test Item Value Reference Range Interpretation Comments HEMOGLOBIN (BEAKER) (test code = 8.6 GM/DL 11.2-15.7 L 410) HEMATOCRIT (BEAKER) (test code = 28.0 % 34.1-44.9 L 411) POCT-GLUCOSE [id number] 06:09:00 Test Item Value Reference Range Interpretation Comments POC-GLUCOSE METER 205 mg/dL 70-110 H TESTED AT [facility] 6720 (BEAKER) (test code = [place] 1538) [address] BASIC METABOLIC [id number] 03:51:00 Test Item Value Reference Range Interpretation [...] PATIEN TS. CBC W/PLT COUNT & AUTO [id number] 03:28:00 Test Item Value Reference Range Interpretation [...] PERCENT (BEAKER) (test code = 2801) POCT-GLUCOSE [id number] 00:46:00 Test Item Value Reference Range Interpretation Comments POC-GLUCOSE METER 331 mg/dL 70-110 H TESTED AT [facility] 6720 (BEAKER) (test code = [place] 1538) [address] HEMOGLOBIN AND [id number] 23:35:00 Test Item Value Reference Range Interpretation Comments HEMOGLOBIN (BEAKER) (test code = 8.0 GM/DL 11.2-15.7 L 410) HEMATOCRIT (BEAKER) (test code = 24.9 % 34.1-44.9 L 411) POCT-GLUCOSE [id number] 18:09:00 Test Item Value Reference Range Interpretation Comments POC-GLUCOSE METER 391 mg/dL 70-110 H Notified R Jose FELIX/TESTED (BEAKER) (test code = AT [facility] 6720 [facility] 1538) [facility] [address] HEMOGLOBIN AND [id number] 16:39:00 Test Item Value Reference Range Interpretation Comments HEMOGLOBIN (BEAKER) (test code = 6.7 GM/DL 11.2-15.7 L 410) HEMATOCRIT (BEAKER) (test code = 22.4 % 34.1-44.9 L 411) POCT-GLUCOSE [id number] 12:39:00 Test Item Value Reference Range Interpretation Comments POC-GLUCOSE METER 238 mg/dL 70-110 H TESTED AT [facility] 6720 (BEAKER) (test code = [place] [facility] 1538) [address] HEMOGLOBIN AND [id number] 11:15:00 Test Item Value Reference Range Interpretation Comments HEMOGLOBIN (BEAKER) (test code = 7.5 GM/DL 11.2-15.7 L 410) HEMATOCRIT (BEAKER) (test code = 24.9 % 34.1-44.9 L 411) CBC W/PLT COUNT & AUTO [id number] 07:49:00 Test Item Value Reference Range Interpretation [...] PERCENT (BEAKER) (test code = 2801) POCT-GLUCOSE [id number] 06:45:00 Test Item Value Reference Range Interpretation Comments POC-GLUCOSE METER 205 mg/dL 70-110 H TESTED AT [facility] 6720 (BEAKER) (test code = [place] 1538) [address] LACTIC ACID, VENOUS, WHOLE [id number] 01:37:00 Test Item Value Reference Range Interpretation Comments LACTATE BLOOD VENOUS (2) (BEAKER) 1.9 mmol/L 0.5-2.2 (test code = 2872) Effective 07/31/2015: Units/Reference Range ChangeNew: 0.5-2.2 mmol/L Previous: 5- 20 mg/dLCOMPREHENSIVE METABOLIC [id number] 00:19:00 Test Item Value Reference Range Interpretation [...] S NOT APPLICABLE FOR DIALYSIS PATIEN TS. [id number] 00:17:00 Test Item Value Reference Range Interpretation Comments PHOSPHORUS (BEAKER) (test code = 3.2 mg/dL 2.3-4.7 604) [id number] 00:17:00 Test Item Value Reference Range Interpretation Comments MAGNESIUM (BEAKER) (test code = 2.1 mg/dL 1.6-2.6 627) POCT-GLUCOSE [id number] 00:17:00 Test Item Value Reference Range Interpretation Comments POC-GLUCOSE METER 200 mg/dL 70-110 H TESTED AT [facility] 6720 (BEAKER) (test code = [place] 1538) [address] PROTHROMBIN [id number] 00:07:00 Test Item Value Reference Range Interpretation [...] mechanical heart valves.CBC W/PLT COUNT & AUTO [id number] 00:03:00 Test Item Value Reference Range Interpretation [...] PERCENT (BEAKER) (test code = 2801) POCT-GLUCOSE [id number] 11:41:00 Test Item Value Reference Range Interpretation Comments POC-GLUCOSE METER 259 mg/dL 70-110 H TESTED AT [facility] 6720 (BEAKER) (test code = [place] [facility] 1538) [address] [id number] 07:35:00 Test Item Value Reference Range Interpretation Comments PHOSPHORUS (BEAKER) (test code = 3.5 mg/dL 2.3-4.7 604) [id number] 07:35:00 Test Item Value Reference Range Interpretation Comments MAGNESIUM (BEAKER) (test code = 1.6 mg/dL 1.6-2.6 627) BASIC METABOLIC [id number] 07:35:00 Test Item Value Reference Range Interpretation [...] NOT APPLICABLE FOR DIALYSIS PATIEN TS. POCT-GLUCOSE [id number] 07:33:00 Test Item Value Reference Range Interpretation Comments POC-GLUCOSE METER 247 mg/dL 70-110 H TESTED AT [facility] 6720 (BEAKER) (test code = [place] 1538) [address] CBC W/PLT COUNT & AUTO [id number] 06:53:00 Test Item Value Reference Range Interpretation [...] PERCENT (BEAKER) (test code = 2801) POCT-GLUCOSE [id number] 21:09:00 Test Item Value Reference Range Interpretation Comments POC-GLUCOSE METER 398 mg/dL 70-110 H Patient on insulin ([facility]) (test code = Drip/T ESTED AT [place] [address]) 6720 [facility] [address] POCT-GLUCOSE [id number] 17:42:00 Test Item Value Reference Range Interpretation Comments POC-GLUCOSE METER 341 mg/dL 70-110 H TESTED AT [place] [address] ([facility]) (test code = [place] [address]) [address] POCT-GLUCOSE [id number] 12:03:00 Test Item Value Reference Range Interpretation Comments POC-GLUCOSE METER 285 mg/dL 70-110 H TESTED AT [place] [address] ([facility]) (test code = [place] [address]) [address] POCT-GLUCOSE [id number] 06:11:00 Test Item Value Reference Range Interpretation Comments POC-GLUCOSE METER 335 mg/dL 70-110 H TESTED AT [place] [address] ([facility]) (test code = [place] [address]) [address] [id number] 05:12:00 Test Item Value Reference Range Interpretation Comments PHOSPHORUS (BEAKER) (test code = 4.0 mg/dL 2.3-4.7 604) [id number] 05:12:00 Test Item Value Reference Range Interpretation Comments MAGNESIUM (BEAKER) (test code = 1.5 mg/dL 1.6-2.6 L 627) BASIC METABOLIC [id number] 05:12:00 Test Item Value Reference Range Interpretation [...] PATIEN TS. CBC W/PLT COUNT & AUTO [id number] 04:40:00 Test Item Value Reference Range Interpretation [...] PERCENT (BEAKER) (test code = 2801) POCT-GLUCOSE [id number] 21:37:00 Test Item Value Reference Range Interpretation Comments POC-GLUCOSE METER 271 mg/dL 70-110 H TESTED AT [place] [address] [facility] (test code = [place] 1538) [address] POCT-GLUCOSE [id number] 17:40:00 Test Item Value Reference Range Interpretation Comments POC-GLUCOSE METER 273 mg/dL 70-110 H TESTED AT [place] [address] ([facility] (test code = [place] 1538) [address] POCT-GLUCOSE [id number] 12:52:00 Test Item Value Reference Range Interpretation Comments POC-GLUCOSE METER 303 mg/dL 70-110 H TESTED AT [place] [address] ([facility] (test code = [place] 1538) [address] POCT-GLUCOSE [id number] 08:44:00 Test Item Value Reference Range Interpretation Comments POC-GLUCOSE METER 306 mg/dL 70-110 H Notified R N MD/TESTED (BEAKER) (test code = AT [facility] 6720 [facility] 1123) [facility] [address] [id number] 04:53:00 Test Item Value Reference Range Interpretation Comments PHOSPHORUS (BEAKER) (test code = 4.0 mg/dL 2.3-4.7 604) [id number] 04:53:00 Test Item Value Reference Range Interpretation Comments MAGNESIUM (BEAKER) (test code = 1.7 mg/dL 1.6-2.6 627) BASIC METABOLIC [id number] 04:53:00 Test Item Value Reference Range Interpretation [...] PATIEN TS. CBC W/PLT COUNT & AUTO [id number] 04:38:00 Test Item Value Reference Range Interpretation [...] PERCENT (BEAKER) (test code = 2801) POCT-GLUCOSE [id number] 21:24:00 Test Item Value Reference Range Interpretation Comments POC-GLUCOSE METER 307 mg/dL 70-110 H Notified R Jose FELIX/TESTED (BEAKER) (test code = AT [facility] 6787 [facility] 7703 0 POCT-GLUCOSE [id number] 17:52:00 Test Item Value Reference Range Interpretation Comments POC-GLUCOSE METER 224 mg/dL 70-110 H TESTED AT [facility] 6720 (BEAKER) (test code = [place] [facility] 1538) [address] POCT-GLUCOSE [id number] 12:46:00 Test Item Value Reference Range Interpretation Comments POC-GLUCOSE METER 250 mg/dL 70-110 H TESTED AT [facility] 6720 (BEAKER) (test code = [place] [facility] 1538) [address] POCT-GLUCOSE [id number] 08:44:00 Test Item Value Reference Range Interpretation Comments POC-GLUCOSE METER 319 mg/dL 70-110 H Notified R Jose FELIX/TESTED (BEAKER) (test code = AT [facility] 6720 [facility] 1538) [facility] [address] 0 [id number] 05:35:00 Test Item Value Reference Range Interpretation Comments PHOSPHORUS (BEAKER) (test code = 3.8 mg/dL 2.3-4.7 604) [id number] 05:35:00 Test Item Value Reference Range Interpretation Comments MAGNESIUM (BEAKER) (test code = 1.8 mg/dL 1.6-2.6 627) BASIC METABOLIC [id number] 05:35:00 Test Item Value Reference Range Interpretation [...] PATIEN TS. CBC W/PLT COUNT & AUTO [id number] 04:52:00 Test Item Value Reference Range Interpretation [...] 417) IMMATURE GRANULOCYTES-RELATIVE 0 % 0-1 PERCENT ([facility]) (test code = 2801) POCT-GLUCOSE [id number] 21:33:00 Test Item Value Reference Range Interpretation Comments POC-GLUCOSE METER 195 mg/dL 70-110 H TESTED AT [facility] 67 ([facility]) (test code = [place] 1538) [address] POCT-GLUCOSE [id number] 20:09:00 Test Item Value Reference Range Interpretation Comments POC-GLUCOSE METER 268 mg/dL 70-110 H TESTED AT [place] [address] ([facility]) (test code = [place] 1538) [address] POCT-GLUCOSE [id number] 17:13:00 Test Item Value Reference Range Interpretation Comments POC-GLUCOSE METER 400 mg/dL 70-110 HH TESTED AT [place] [address] ([facility]) (test code = [place] 1538) [address] POCT-GLUCOSE [id number] 10:55:00 Test Item Value Reference Range Interpretation Comments POC-GLUCOSE METER 216 mg/dL 70-110 H TESTED AT [place] [address] ([facility]) (test code = [place] 1538) [address] POCT-GLUCOSE [id number] 07:07:00 Test Item Value Reference Range Interpretation Comments POC-GLUCOSE METER 240 mg/dL 70-110 H TESTED AT [place] [address] ([facility]) (test code = [place] 1538) [address] POCT-GLUCOSE [id number] 06:13:00 Test Item Value Reference Range Interpretation Comments POC-GLUCOSE METER 249 mg/dL 70-110 H TESTED AT [place] [address] ([facility]) (test code = [place] 1538) [address] [id number] 05:36:00 Test Item Value Reference Range Interpretation Comments PHOSPHORUS (BEAKER) (test code = 3.5 mg/dL 2.3-4.7 604) [id number] 05:36:00 Test Item Value Reference Range Interpretation Comments MAGNESIUM (BEAKER) (test code = 1.7 mg/dL 1.6-2.6 627) BASIC METABOLIC [id number] 05:36:00 Test Item Value Reference Range Interpretation [...] PATIEN TS. CBC W/PLT COUNT & AUTO [id number] 05:19:00 Test Item Value Reference Range Interpretation [...] (BEAKER) (test code = 2801) COMPREHENSIVE METABOLIC [id number] 23:04:00 Test Item Value Reference Range Interpretation [...] NOT APPLICABLE FOR DIALYSIS PATIEN TS. PROTHROMBIN [id number] 22:57:00 Test Item Value Reference Range Interpretation Comments PROTIME (BEAKER) (test code = 14.1 seconds 11.7-14.7 759) INR (BEAKER) (test code = 370) 1.1 <=5.9 RECOMMENDED COUMADIN/WARFARIN INR THERAPY RANGESSTANDARD DOSE: 2.0 - 3.0 Includes: PROPHYLAXIS for venous thrombosis, systemic embolization; TREATMENT for venous thrombosis and/or pulmonary embolus.HIGH RISK: Target INR is 2.5-3.5 for patients with mechanical heart valves.CBC W/PLT COUNT & AUTO [id number] 22:51:00 Test Item Value Reference Range Interpretation [...] % 0-1 PERCENT (BEAKER) (test code = 2804) POC, COVID 19 Antigen + Flu by SofiaPOC, COVID 19 Antigen + Flu by Pam
[2022-07-27 16:41] LABS: Absolute Lymphocytes (CBC) 1.1 K/uL (0.7-4.9); Hematocrit 40.7 % (36.0-45.0); Lymphocytes % 10.2 % (15.3-44.8); MCV 87.6 fL (80-100); MPV 8.4 fL (7.6-11.3); RBC Red Blood Cell Count 4.64 M/uL (3.86-4.86)
[2022-07-27 17:01] LABS: ALT/SGPT 20 U/L (13-56); AST/SGOT 12 U/L (15-37); Albumin 3.4 g/dL (3.4-5.0); Alkaline Phosphatase 90 U/L (45-117); BUN Blood Urea Nitrogen 21 mg/dL (7-18); Bicarbonate 28 mEq/L (21-32); Bilirubin Total 0.3 mg/dL (0.2-1.0); Glomerular Filtration Rate 51 ml/min (=/>90); Glucose Level 114 mg/dL (74-106); NT PRO-BNP 808 pg/mL (<450); Potassium 3.8 mEq/L (3.5-5.1); Sodium Level 138 mEq/L (136-145); Troponin High Sensitivity 9.8 pg/mL (<58.9)
[2022-07-27 17:06] LABS: Bilirubin Direct < 0.1 mg/dL (0-0.2)
--- NOTE | 2022-07-27 17:21 | RAD REPORT ---
EXAM DESCRIPTION: CT - Head Brain Wo Cont - 07/27/2022 4:30 pm CLINICAL HISTORY: HTN, dizzy COMPARISON: Head Brain Wo Cont dated 06/04/2022; Head Brain Wo Cont dated 06/03/2022; Chest Single View dated 07/27/2022 TECHNIQUE: Noncontrast head CT images ad were obtained without IV contrast. Multiplanar reformats we re generated and reviewed. All CT scans are performed using dose optimization technique as appropriate and may include automated exposure control or mA/KV adjustment according to patient size. FINDINGS: No intracranial hemorrhage, mass, or edema. Midline structures are unremarkable. Normal ventricular caliber for age. Reece-white matter differentiation is preserved, without evidence of acute infarct. No abnormal extra- axial fluid collections. Streak artifact within the posterior fossa somewhat limits evaluation. Mastoid air cells and visualized portions of the paranasal sinuses are clear. No acute bony findings. Right retromastoid BAHA in place. IMPRESSION: No evidence of an acute intracranial process.
--- NOTE | 2022-07-27 17:33 | EDPHYS ---
Physician Documentation [facility] Name: Sia Salazar Age: 76 yrs Sex: Female : 1945 Arrival Date: 07/27/2022 Time: 15:26 Bed 8 Private MD: ED Physician Lai Dumont HPI: 07/27 16:14 This 76 yrs old Female presents to ER via Wheelchair with complaints of High Blood rn Pressure. 16:14 The patient has elevated blood pressure and discovered this at home. Onset: The rn symptoms/episode began/occurred 2 week(s) ago. Modifying factors: The symptoms are aggravated by discontinuation of meds. Associated signs and symptoms: Pertinent positives: headache, lightheadedness, Pertinent negatives: chest pain, weakness. Severity of symptoms: At its worst the blood pressure was moderate, in the emergency department the blood pressure is improved. The patient has experienced similar episodes in the past. The patient has not recently seen a physician. Pt reports high blood pressure for 2 weeks. Stopped/weaned her pain medications and others because wasn't helping anyway. No focal weakness/numbness. No fall or trauma. No chest pain/sob/abd pain/back pain. Reports has been watching her blood pressure for the last 2 weeks, made appointment, but called pcp to update and directed here. . Historical: - Allergies: 15:35 Darvocet-N 100; ll1 15:35 Erythromycin; ll1 15:35 Glimepiride; ll1 15:35 Codeine; ll1 15:35 Crestor; ll1 15:35 Clindamycin; ll1 15:35 Glipizide; ll1 15:35 Bactrim; ll1 15:35 Iodinated Contrast Media - IV Dye; ll1 15:35 Januvia; ll1 15:35 Lipitor; ll1 15:35 metformin; ll1 15:35 Morphine; ll1 15:35 PENICILLINS; ll1 15:35 Sulfa (Sulfonamide Antibiotics); ll1 15:35 Wellbutrin; ll1 15:35 Actos; ll1 - PMHx: 15:35 Diabetes - IDDM; ibs; SBO; ischemic bowel disease; GERD; COPD; Depression; chronic ll1 pulmonary embolism; chronic mesenteric ischemia; Cerebrovascular disease; peripheral artery disease; celiac artery stenosis; bronchospastic airway disease; bowel AVMs; angiodysplasia; - PSHx: 15:35 Coronary artery bypass graft; Cholecystectomy; Tonsillectomy; ll1 - Immunization history:: Client reports receiving the 2nd dose of the Covid vaccine. - Social history:: Smoking status: Patient reports the use of cigarette tobacco products, smokes one pack cigarettes per day. - Family history:: not pertinent. - Hospitalizations: : No recent hospitalization is reported. ROS: 16:14 Constitutional: Negative for fever, chills, and weight loss, Eyes: Negative for injury, rn pain, redness, and discharge, Neck: Negative for injury, pain, and swelling, Cardiovascular: Negative for chest pain, palpitations, and edema, Respiratory: Negative for shortness of breath, cough, wheezing, and pleuritic chest pain, Abdomen/GI: Negative for abdominal pain, nausea, vomiting, diarrhea, and constipation, Back: Negative for injury and pain, MS/Extremity: Negative for injury and deformity, Skin: Negative for injury, rash, and discoloration, Neuro: Negative for weakness, numbness, tingling, and seizure. Exam: 16:14 Constitutional: This is a well developed, well nourished patient who is awake, alert, rn and in no acute distress. Head/Face: Normocephalic, atraumatic. Neck: No Meningismus. Cardiovascular: Regular rate and rhythm. No pulse deficits. Respiratory: No increased work of breathing, no retractions or nasal flaring. MS/ Extremity: Pulses equal, no cyanosis. Neurovascular intact. Full, normal range of motion. Equal circumference. Neuro: Awake and alert, GCS 15, oriented to person, place, time, and situation. Cranial nerves II-XII grossly intact. Motor strength 5/5 in all extremities. Sensory grossly intact. Cerebellar exam normal. 17:29 ECG was reviewed by the Attending Physician. rn Vital Signs: 15:33 BP 180 / 71; Pulse 88; Resp 17; Temp 97.1; Pulse Ox 96% on R/A; Weight 62.6 kg; Height ll1 5 ft. 2 in. ; Pain 8/10; 16:20 BP 169 / 63; Pulse 83; Resp 18; Pulse Ox 97% on R/A; nj1 16:46 BP 175 / 61; Pulse 81; Resp 18; Pulse Ox 96% on R/A; ld1 17:30 BP 179 / 64; Pulse 80; Resp 15; Pulse Ox 96% ; jl7 15:33 Body Mass Index 25.24 (62.60 kg, 157.48 cm) ll1 15:33 Pain Scale: Adult ll1 MDM: 15:33 Patient medically screened. rn 17:29 Differential diagnosis: hypertensive crisis, Malignant HTN, intracerebral hemorrhage, rn hypertension, kidney failure, anxiety. Data reviewed: vital signs, nurses notes, lab test result(s), EKG, radiologic studies, CT scan, plain films, and as a result, I will discharge patient. Care significantly affected by the following chronic conditions: Diabetes, Hypertension. Counseling: I had a detailed discussion with the patient and/or guardian regarding: the historical points, exam findings, and any diagnostic results supporting the discharge/admit diagnosis, lab results, radiology results, the need for outpatient follow up, to return to the emergency department if symptoms worsen or persist or if there are any questions or concerns that arise at home. Response to treatment: the patient's symptoms have mildly improved after treatment, and as a result, I will discharge patient. Special discussion: I discussed with the patient/guardian in detail that at this point there is no indication for admission to the hospital. It is understood, however, that if the symptoms persist or worsen the patient needs to return immediately for re-evaluation. Based on the history and exam findings, there is no indication for further emergent testing or inpatient evaluation. I discussed with the patient/guardian the need to see the primary care provider for further evaluation of the symptoms. ED course: BP improved without intervention, ct head neg, labs unremarkable, trop neg, ecg without ischemia. Will dc home with return precautions. She spoke with her pcp and he recommended increasing her metoprolol from 50mg to 100mg, to take BP diary, and f/u with him for further management. Patient likes the plan and feels much better after evaluation. . 07/27 15:46 Order name: Basic Metabolic Panel; Complete Time: 17:13 rn 07/27 15:46 Order name: CBC with Diff; Complete Time: 17:03 rn 07/27 15:46 Order name: LFT's; Complete Time: 17:13 rn 07/27 15:46 Order name: NT PRO-BNP; Complete Time: 17: rn 07/27 15:46 Order name: Troponin HS; Complete Time: 17:13 rn 07/27 15:46 Order name: XRAY Chest (1 view) rn 07/27 15:46 Order name: CT Head Brain wo Cont; Complete Time: 17:28 rn 07/27 15:46 Order name: EKG; Complete Time: 15:46 rn 07/27 15:46 Order name: Cardiac monitoring; Complete Time: 16:49 rn 07/27 15:46 Order name: EKG - Nurse/Tech; Complete Time: 16:49 rn 07/27 15:46 Order name: IV Saline Lock; Complete Time: 16:49 rn 07/27 15:46 Order name: Labs collected and sent; Complete Time: 16:49 rn 07/27 15:46 Order name: O2 Per Protocol; Complete Time: 16:44 rn 07/27 15:46 Order name: O2 Sat Monitoring; Complete Time: 16:44 rn EC:29 Rate is 83 beats/min. Rhythm is regular. Left axis deviation noted. QRS is positive in rn lead I and negative in lead aVF. [place] interval is normal. QRS interval is normal. QT interval is normal. No Q waves. T waves are Normal. No ST changes noted. Clinical impression: NSR w/ Non-specific ST/T Changes. Interpreted by me. Reviewed by me. Administered Medications: No medications were administered Disposition Summary: 07/27/22 17:32 Discharge Ordered Location: Home rn Problem: an ongoing problem rn Symptoms: have improved rn Condition: Stable rn Diagnosis - Essential (primary) hypertension rn Followup: rn - With: Private Physician - When: As needed - Reason: Recheck today's complaints, Re-evaluation by your physician Discharge Instructions: - Discharge Summary Sheet rn - Hypertension, Adult rn - Heart Disease kiln burner - How to Take Your Blood Pressure, Kekf-yo-Oujm rn - Managing Your Hypertension rn Forms: - Medication Reconciliation Form rn - Thank You Letter rn - 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
--- NOTE | 2022-07-27 17:33 | ER ---
Nurse's Notes [facility] Name: Sia Salazar Age: 76 yrs Sex: Female : 1945 Arrival Date: 07/27/2022 Time: 15:26 Bed 8 Private MD: Diagnosis: Essential (primary) hypertension Presentation: 07/27 15:33 Chief complaint: Patient states: HTN for 2 weeks, up to 199/102 at home. Blood sugar is ll1 higher than normal. Coronavirus screen: Vaccine status: Patient reports receiving the 2nd dose of the covid vaccine. Client denies travel out of the [place] in the last 14 days. At this time, the client does not indicate any symptoms associated with coronavirus-19. Ebola Screen: Patient denies travel to an Ebola-affected area in the 21 days before illness onset. Initial Sepsis Screen: Does the patient meet any 2 criteria? No. Patient's initial sepsis screen is negative. Does the patient have a suspected source of infection? No. Patient's initial sepsis screen is negative. Risk Assessment: Do you want to hurt yourself or someone else? Patient reports no desire to harm self or others. Onset of symptoms was July 11, 2022. 15:33 Method Of Arrival: Wheelchair ll1 15:33 Acuity: GREGG 2 ll1 Triage Assessment: 15:42 General: Appears uncomfortable, Behavior is calm, cooperative, appropriate for age. ll1 General: Reports fatigue for. Pain: Complains of pain in body Quality of pain is described as aching. Neuro: Reports dizziness, high BP. Historical: - Allergies: 15:35 Darvocet-N 100; ll1 15:35 Erythromycin; ll1 15:35 Glimepiride; ll1 15:35 Codeine; ll1 15:35 Crestor; ll1 15:35 Clindamycin; ll1 15:35 Glipizide; ll1 15:35 Bactrim; ll1 15:35 Iodinated Contrast Media - IV Dye; ll1 15:35 Januvia; ll1 15:35 Lipitor; ll1 15:35 metformin; ll1 15:35 Morphine; ll1 15:35 PENICILLINS; ll1 15:35 Sulfa (Sulfonamide Antibiotics); ll1 15:35 Wellbutrin; ll1 15:35 Actos; ll1 - PMHx: 15:35 Diabetes - IDDM; ibs; SBO; ischemic bowel disease; GERD; COPD; Depression; chronic ll1 pulmonary embolism; chronic mesenteric ischemia; Cerebrovascular disease; peripheral artery disease; celiac artery stenosis; bronchospastic airway disease; bowel AVMs; angiodysplasia; - PSHx: 15:35 Coronary artery bypass graft; Cholecystectomy; Tonsillectomy; ll1 - Immunization history:: Client reports receiving the 2nd dose of the Covid vaccine. - Social history:: Smoking status: Patient reports the use of cigarette tobacco products, smokes one pack cigarettes per day. - Family history:: not pertinent. - Hospitalizations: : No recent hospitalization is reported. Screenin:00 [facility] ED Fall Risk Assessment (Adult) History of falling in the last 3 months, nj1 including since admission No falls in past 3 months (0 pts) Confusion or Disorientation No (0 pts) Intoxicated or Sedated No (0 pts) Impaired Gait No (0 pts) Mobility Assist Device Used No (0 pt) Altered Elimination No (0 pt) Score/Fall Risk Level 0 - 2 = Low Risk Oriented to surroundings, Maintained a safe environment, Hourly rounding (assess needs \T\ fall precautionary measures) done. Abuse screen: Denies threats or abuse. Denies injuries from another. Nutritional screening: No deficits noted. Tuberculosis screening: No symptoms or risk factors identified. Assessment: 16:00 Reassessment: Patient appears in no apparent distress at this time. Patient and/or nj1 family updated on plan of care and expected duration. Pain level reassessed. Patient is alert, oriented x 3, equal unlabored respirations, skin warm/dry/pink. General: Appears in no apparent distress. comfortable, Behavior is calm, cooperative, appropriate for age. Vital Signs: 15:33 BP 180 / 71; Pulse 88; Resp 17; Temp 97.1; Pulse Ox 96% on R/A; Weight 62.6 kg; Height ll1 5 ft. 2 in. ; Pain 8/10; 16:20 BP 169 / 63; Pulse 83; Resp 18; Pulse Ox 97% on R/A; nj1 16:46 BP 175 / 61; Pulse 81; Resp 18; Pulse Ox 96% on R/A; ld1 17:30 BP 179 / 64; Pulse 80; Resp 15; Pulse Ox 96% ; jl7 15:33 Body Mass Index 25.24 (62.60 kg, 157.48 cm) ll1 15:33 Pain Scale: Adult ll1 ED Course: 15:29 Patient arrived in ED. rg4 15:33 Lai Dumont MD is Attending Physician. rn 15:35 Triage completed. ll1 15:36 Arm band placed on Patient placed in an exam room, on a stretcher. ll1 15:55 Valeria Pascual, RN is Primary Nurse. nj1 16:00 Patient has correct armband on for positive identification. Bed in low position. Call nj light in reach. Adult w/ patient. 16:20 Inserted saline lock: 20 gauge in right upper arm, using aseptic technique. ,using [facility] aseptic technique. Ultrasound guided. Blood collected. 16:32 CT Head Brain wo Cont In Process Unspecified. EDMS 16:57 XRAY Chest (1 view) In Process Unspecified. EDMS 18:10 No provider procedures requiring assistance completed. IV discontinued, intact, jl7 bleeding controlled, No redness/swelling at site. Pressure dressing applied. Administered Medications: No medications were administered Medication: 18:10 VIS not applicable for this client. jl7 Outcome: 17:32 Discharge ordered by . rn 18:12 Discharged to home ambulatory, with family. jl7 18:12 Condition: stable 18:12 Discharge instructions given to patient, family, Instructed on discharge instructions, follow up and referral plans. Demonstrated understanding of instructions, follow-up care. 18:12 Patient left the ED. jl7 Signatures: Dispatcher [employer] EDMS Lai Dumont MD MD rn Garcia, Rubi rg4 Brent Zambrano RN RN jl7 Juliana Prakash RN RN ll1 Allegra Neal RN RN ld1 Valeria Pascual, RN RN nj1
--- NOTE | 2022-07-27 18:09 | RAD REPORT ---
EXAM DESCRIPTION: RADChest Single View07/27/2022 4:56 pm CLINICAL HISTORY: HTN COMPARISON: Chest Single View dated 06/03/2022; Chest Single View dated 01/24/2022; Chest Single View dated 01/11/2022; Chest Single View dated 04/09/2021 TECHNIQUE: Portable AP view of the chest. FINDINGS: The lungs are clear. No pneumothorax or effusion. The cardiomediastinal contours are unrem arkable. Spinal stimulator electrodes in place. IMPRESSION: No acute cardiopulmonary process.
[2022-07-27 18:57] VITALS: TEMP 97.1
[2022-07-27 19:00] VITALS: O2SAT 96
[2022-07-27 19:01] VITALS: BP 179/64
--- NOTE | 2022-07-28 08:11 | EKG ---
Test Date: 2022-07-27 Test Time: 16:45:14 Designer: CHELSEA MEASUREMENT RESULTS: Intervals: Rate: 83 ID: [id number] QRSD: 88 QT: 394 QTc: 462 Christoval: P: -7 ID: [id number] QRS: -48 T: 66 INTERPRETIVE STATEMENTS: Normal sinus rhythm Left axis deviation Anteroseptal infarct, age undetermined Abnormal ECG Compared to ECG 06/03/2022 13:26:33 No significant changes Electronically Signed On 07-28-22 08:10:49 CDT by Kvng White
== END 2022-07-27 18:12 | disposition home or self-care (01) ==
LOC: ER 15:26
DX: I10 Essential (primary) hypertension (principal); E11.9 Type 2 diabetes mellitus without complications; Z95.1 Presence of aortocoronary bypass graft; Z88.0 Allergy status to penicillin; Z88.1 Allergy status to other antibiotic agents; Z88.2 Allergy status to sulfonamides; Z88.3 Allergy status to other anti-infective agents; Z88.5 Allergy status to narcotic agent; Z88.8 Allergy status to other drugs, medicaments and biological substances; Z91.041 Radiographic dye allergy status; Z91.048 Other nonmedicinal substance allergy status
CPT/HCPCS: 36415; 70450; 71045; 80048; 80076; 83880; 84484; 85025; 93005; 99284

== ENCOUNTER 2022-10-29 21:04 | Emergency (ER) | payer MEDICARE ==
--- OUTSIDE RECORDS SUMMARY | 2022-10-29 21:24 | XMS REPORT | Continuity of Care Document ---
:1945 Author Organization [facility] t Address [address] [place] [address] Care Team Providers Name Role Phone SUSANA THOMSON Primary Care Physician Unavailable Susana Thomson Attending Clinician Unavailable PEARL BROOKS Attending Clinician Unavailable ABIOLA PEREZ Attending Clinician Unavailable Ana Wells Attending Clinician Kirit CONTRERAS Attending Clinician Unavailable Kirit Tsang Attending Clinician Doctor Unassigned, [place] Attending Clinician Unavailable Andrez Lam Attending Clinician Jose Alberto FELIX, Librado Attending Clinician DAWSON BECKFORD Attending Clinician Unavailable DAWSON BECKFORD Attending Clinician Unavailable LIDIA NAZARIO Attending Clinician Unavailable DARLING MORAN Attending Clinician Unavailable Darling Moran MD Attending Clinician Gricel Little MD Attending Clinician Suki FELIX, Chinmay Betancourt Attending Clinician ARIEL ROLAND Attending Clinician Unavailable Carol Heredia Attending Clinician Ayaan Christian MD Attending Clinician Asuncion FELIX, Ariel Grier Attending Clinician Litzy Gerardo MD Attending Clinician IcarleneS Attending Clinician Unavailable MORALES FITCH Attending Clinician Unavailable Little ORTHOPEDIC PHYSICAL THERAPISTMorales Parker Attending Clinician Lidia Nazario MD Attending Clinician Pob, [facility] Lab Main Attending Clinician Unavailable Chance Paul MD Attending Clinician CHANCE PAUL Attending Clinician Unavailable LIBRADO GAONA Attending Clinician Unavailable Chela Knowles MD Attending Clinician Lab, Ang [...] Attending Clinician INDIGO JIMÉNEZ Attending Clinician Unavailable Lab, Adc Fam Pob I Attending Clinician Unavailable Simi Lopez Attending Clinician [facility] Attending Clinician Unavailable JOSE NGUYEN Attending Clinician Unavailable Morena Jules Attending Clinician MORENA GRAY Attending Clinician Unavailable SIMI BEAVER Attending Clinician Unavailable OLI JEFFREY Attending Clinician Unavailable Oli Jeffrey MD Attending Clinician SAM REDDING Attending Clinician Unavailable Pc, Adc Vascular Room 1 - Attending Clinician Unavailable JOSE DUNLAP Attending Clinician Unavailable Jose Dunlap DO Attending Clinician SHENA ORR Attending Clinician Unavailable ANGELES UGALDE Attending Clinician Unavailable ADRIANA MAGALLANES Attending Clinician Unavailable WILL TINAJERO Attending Clinician Unavailable Darwin Adrian Attending Clinician PEARL BROOKS Admitting Clinician Unavailable DAWSON BECKFORD Admitting Clinician Unavailable DARLING MORAN Admitting Clinician Unavailable AYAAN CHRISTIAN Admitting Clinician Unavailable Lisa Admitting Clinician Unavailable MORALES FITCH Admitting Clinician Unavailable JOSE DUNLAP Admitting Clinician Unavailable SIMI BEAVER Admitting Clinician Unavailable SHENA ORR Admitting Clinician Unavailable LATONIA LEGER Admitting Clinician Unavailable ADRIANA MAGALLANES Admitting Clinician Unavailable WILL TINAJERO Admitting Clinician Unavailable Payers Payer Name Policy Type Policy Number Effective Date Expiration Date S ivy [place] [id number] 2021 MGD MCR 00:00:00 [place] [id number] 2021 MEDICARE 00:00:00 ADVANTAGE PLAN [facility] DJGU 2021 (MEDICARE 00:00:00 REPLACEMENT HMO) WELLC[employer] VALUE [id number] 2020 00:00:00 Wellcare C1 [id number] Common Spirit - [facility] Problems Condition Condition Condition Status Onset Resolution [...] 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 00:00: [place] failure failure 00 Medical Branch Coronary Coronary Disease Active Unive rs artery artery 917 ity of disease disease 00:00: [place] involving involving 00 [facility] [place] coronary coronary artery artery Acute GI Acute GI Disease Active [facility] bleeding bleeding 12-13 [facility] 00[facility] Medical [facility] Center Arterioven Arterioven Disease Active C [facility] ous ous 12-13 [facility] malformati malformati 00:00: Me dical on (AVM) on (AVM) 00 Center Diabetes Diabetes Disease Recurre Overview: C HI St mellitus mellitus nce 17 Formattin [place] 00:00: g of this [...] Disease Recurre [facility] sepsis sepsis nce 8 [facility] 00:[facility] Medical 00 Center Anemia [...] Active [facility] blood loss blood loss 8 Dora kes anemia anemia 00:00: Medical [address] [place] [address] Upper GI Upper GI Disease Active Unive rs bleed bleed 10-23 ity of 00:00: [place] [address] Medical Branch GI bleed GI bleed Disease Active [facility] t 10-23 [facility] 00:00: [address] DSU- DSU- Diagnosis Active 2017-02-10 [facility] HEMATOCHEZ HEMATOCHEZ 10-01 16:16:00 l [place] R19.5, [place] R19.5, 00:00: Blaire tristan FATIGUE FATIGUE 00 R53.83, R53.83, Active 10/01/2016 [facility] Obesity Obesity Disease Active Univers (BMI (BMI 09-02 ity of 30-39.9) 30-39.9) 00:00: [address] SBO (small SBO (small Disease Active U nivers bowel bowel 09-01 ity of obstructio obstructio 00:00: Evan adams) n) [address] [place] [address] F/U F/U Diagnosis Active 2016-10-01 Mem oria Active 07-02 10:31:00 l 07/02/2016 00:00: Gilbert adams [address] CONSULT CONSULT Diagnosis Active 2016-07-02 Memoria Active 05-06 11:37:00 l 05/06/2016 00:00: Gilbert adams [address] Depression Depression Disease Active U nivers ity of [facility] [id number] Right-side Problem Co mmon d back Spirit pain, - CHI unspecifie St d back [facility] location, Medical unspecifie Center d chronicity Anxiety Anxiety Problem Common [facility] Osteoporos Osteoporos Problem C ommon is is Spirit [facility] Depression Depression Problem C ommon [facility] COPD - COPD Problem Common Chronic (chronic Spirit obstructiv obstructiv - CHI e e St pulmonary pulmonary Luke s disease disease) [facility] [id number] Ventral Problem Commo n hernia Spirit without - CHI obstructio [facility] or [facility] gangrene [facility] Stroke Stroke Problem Common Spirit [facility] [id number] Chronic Problem Commo n blood loss Spirit anemia - [facility] 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 Seasonal Seasonal Problem Commo n allergic allergic Spirit rhinitis reaction - [facility] [id number] Coronary Problem Comm on artery Spirit disease - CHI involving [facility] coronary Medical artery of Center [place] heart with other form of angina pectoris Disorder Circulatio Problem Com mon of n problem Spirit cardiovasc - CHI ular [facility] [id number] Abdominal Problem Comm on pain, Spirit unspecifie - [facility]I d [facility] [id number] Depression Problem Co mmon screening Spirit - [facility] [id number] Uncontroll Problem Co mmon ed type 2 Spirit diabetes - CHI mellitus [facility] hyperglyce [facility] Peripheral Peripheral Problem C ommon neuropathy neuropathy Sp tarun - [facility] [id number] Insomnia, Problem Com mon unspecifie Spirit d type - [facility] [id number] Hammer toe Problem Co mmon of right Spirit foot - [facility] Iron Anemia, Problem Common deficiency iron Spirit anemia deficiency - [facility] [id number] Primary Problem Commo n osteoarthr Spirit itis - CHI involving [facility] [id number] Cardiomyop Problem Com mon athy, Spirit unspecifie - CHI d [facility] [id number] Decreased Problem Comm on diastolic Spirit blood - CHI pressure [facility] [id number] Pneumonia Problem Com mon due to Spirit infectious - CHI organism, [facility] , unspecifie d part of lung [id number] Arterioven Problem Co mmon ous Spirit malformati - CHI on small bowel [facility] [id number] Tobacco Problem Commo n use Spirit disorder - [facility] [id number] Essential Problem Comm on hypertensi Spirit on [facility] [id number] Wheezing Problem Commo n Spirit - [facility] [id number] Tremor Problem Common Spirit [facility] Anemia due Anemia due Problem C ommon to blood to blood Spirit loss loss - [facility] Arterioven Arterioven Problem C ommon ous ous Spirit malformati malformati - CHI on on, other [facility] [id number] Depression Problem Com mon , major, Spirit single - CHI episode, [facility] Constipati Constipati Problem C ommon on on, Spirit unspecifie - [facility] [id number] Mixed Problem Common hyperlipid Spirit emia - [facility] Dizzy Dizzy Problem Common spells spells Spirit - [facility] Abnormal Gait Problem Common gait disturbanc Spirit e - [facility] Transient TIA Problem Common ischemic (transient Spir it attack ischemic - CHI attack) [facility] [id number] Chronic Problem Commo n kidney Spirit disease, - [facility] stage 3 [facility] [id number] Type 2 Problem Commo n 05 diabetes Spirit mellitus - [facility] with [facility] Center disease [id number] History of Problem C ommon [address] allergic Spirit reaction - [facility] [id number] Chronic Problem Commo n pain Spirit syndrome - [facility] Hyperlipid Hyperlipem Problem C ommon aemia ia Spirit - [facility] Type II Diabetes Problem Common diabetes mellitus Spirit mellitus with no - [facility] Anemia Anemia Problem Resolve 2016-10-04 Mem oria (disorder) (disorder) d 00:05:00 l Resolved [employer] Problem 10/04/2016 [facility] Congenital Congenita Problem Resolve 2016-10-04 Memoria arterioven l d 00:05:00 l ous arterioven Gilbert n malformati ous on malformati (disorder) on (disorder) Resolved Problem 10/04/2016 [facility] Gallbladde Gallbladd Problem Resolve 2016-10-04 Memoria r calculus er d 00:05:00 l (disorder) calculus Herm kun (disorder) Resolved Problem 10/04/2016 [facility] Gout Gout Problem Resolve 2016-10-04 Jim maya (disorder) (disorder) d 00:05:00 l Resolved Nader Problem 10/04/2016 [facility] History of History Problem Resolve 2016-10-04 Memoria - TIA of - TIA d 00:05:00 l (context-d (context-d He rmann ependent ependent category) category) Resolved Problem 10/04/2016 [facility] Asthma Asthma Problem Resolve 2016-10-04 Mem oria (disorder) (disorder) d 00:05:00 l Resolved [employer] Problem 10/04/2016 [facility] Arthritis Arthritis Problem Resolve 2016-10-04 Memoria (disorder) (disorder) d 00:05:00 l Resolved Nader Problem 10/04/2016 [facility] Peripheral Periphera Problem Resolve 2016-10-04 Memoria vascular l vascular d 00:05:00 l disease disease [employer] (disorder) (disorder) Resolved Problem 10/04/2016 [facility] Polyp of Polyp of Problem Resolve 2016-10-04 Memoria colon colon d 00:05:00 l (disorder) (disorder) He rmann Resolved Problem 10/04/2016 [facility] ENCNTR FOR ENCNTR Diagnosis Active 2016-10-01 Memoria GENERAL FOR 10:31:00 l ADULT GENERAL Nader MEDICAL ADULT EXAM W/ MEDICAL EXAM W/ Active [facility] OTHER OTHER Diagnosis Active 2017-02-10 Mem oria FECAL FECAL 16:16:00 l ABNORMALIT ABNORMALIT He rmann IES IES Active [facility] Allergies, Adverse Reactions, Alerts Allergy Allergy Status [...] of 00:00: [place] 00 Medical Branch GLIMEPIR Allergy Active Hives [facility] DIANE 10-22 00:00: 00 GLIPIZID Allergy Active [facility] E 10-22 00:00: 00 MORPHINE Allergy Active Itching [facility] 7 00:00: 00 PENICILL Allergy Active Hives [facility] INS 10-22 00:00: 00 PIOGLITA Allergy Active [facility] ZONE 7 00:00: 00 ROSUVAST Allergy Active [facility] ATIN 10-22 00:00: 00 SITAGLIP Allergy Active [facility] TIN 10-22 00:00: 00 Atorvast Propensi Active Hives [facility] atin ty to 10-22 [facility] adverse 00:00: Medical reaction 00 Center s Penicill Propensi Active Hives [facility] ins ty to 10-22 [facility] adverse 00:00: Medical reaction 00 Center s SULFA Allergy Active Hives [facility] (SULFONA 10-22 MIDE 00:00: ANTIBIOT 00 ICS) Pioglita Propensi Active [facility] zone ty [...] adverse 00:00: Medical reaction 00 Center s SULFAMET Allergy Active [facility] HOXAZOLE 10-22 00:00: 00 [address]ropio [address] [facility] n Hcl [...] Medical Antibiot reaction 00 Center ics) s Propoxyp Propensi Active Anaphylaxis C HI St hene ty to 10-22 [facility] N-Acetam adverse 00:00: Medical inophen reaction 00 Center s Erythrom Propensi Active Hives [facility] ycin ty to 10-22 [facility] adverse 00:00: Medical reaction 00 Center s TRIMETHO Allergy Active [facility] PRIM 10-22 00:00: 00 Glimepir Propensi Active Hives [facility] diane [...] Containi reaction 00 Center ng s Products BUPROPIO Allergy Active [facility] N HCL 10-22 00:00: 00 PROPOXYP Allergy Active High Anaphylaxis 2016- SL EH HENE 10-22 N-ACETAM 00:00: INOPHEN [...] 00 Medical Branch PIOGLITA DRUG Active Hives Univers ZONE HCL INGREDI 6-06 ity of 00:00: [place] 00 Medical Branch CLINDAMY DRUG Active ITCHING Univers FABIÁN INGREDI -06 ity of 00:00: [place] 00 Medical Branch ROSUVAST DRUG Active ITCHING 2017-0 Univers ATIN INGREDI - ity of CALCIUM 00:00: [place] 00 Medical Branch ERYTHROM DRUG Active Other-Cmnt 2017-0 Univ ers YCIN 09-01 ity of 00:00: [place] 00 Medical Branch GLIMEPIR DRUG Active Hives 2017-0 Univers DIANE INGREDI 09-01 ity of 00:00: [place] 00 Medical Branch IODINE DRUG Active Hives 2017- Univers INGREDI 09-01 ity of 00:00: [place] 00 Medical Branch SITAGLIP DRUG Active Other-Cmnt 20170 Univ ers TIN INGREDI 09-01 ity of [...] Active Hives 2017-0 Univers (Sulfona ty to 09-01 ity of mide adverse 00:00: [place] Antibiot reaction 00 Medica l ics) s Branch Pioglita Propensi Active Hives 20170 Univer s zone Hcl ty to 09-01 ity of adverse 00:00: [place] reaction 00 Medical s Branch Clindamy Propensi Active Itching 2017 Unive rs fabián ty to 09-01 ity of adverse 00:00: [place] reaction 00 Medical s Branch Codeine Propensi Active Itching 20170 Univer s ty to 6-06 ity of adverse 00:00: [place] reaction 00 Medical s to Branch drug Rosuvast Propensi Active Itching Unive rs atin ty to 6- ity of Calcium adverse 00:00: [place] reaction 00 Medical s Branch Erythrom Propensi Active Other - See U nivers ycin ty to comments - ity of adverse 00:00: [place] reaction Medical s Branch Glimepir Propensi Active Hives Univer s diane ty to - ity of adverse 00:00: [...] Active Hives Univer s n ty to 06 ity of adverse 00:00: [place] reaction 00 Medical s Branch hydroxyz hydroxyz Active Unknown Commo n ine ine [facility] atorvast atorvast Active Unknown Commo n atin atin [facility] metronid metronid Active Unknown Commo n azole azole [facility] erythrom erythrom Active Unknown Commo n ycin ycin [facility] propoxyp propoxyp Active Unknown Commo n gillian french [facility] 5337 Drug Active Unknown Common allergy [facility] glimepir glimepir Active Unknown Commo n diane diane [facility] trimetho trimetho Active Unknown Commo n prim prim [facility] 463 Drug Active Unknown Common allergy [facility] sitaglip sitaglip Active Unknown Commo n tin tin [facility] Codeine Codeine Active Unknown Common [facility] Morphine Morphine Active Unknown Commo n [facility] Penicill Penicill Active Unknown Commo n in in [facility] pioglita pioglita Active Unknown Commo n zone zone [facility] bupropio bupropio Active Unknown Commo n n n [facility] rosuvast rosuvast Active Unknown Commo n atin atin [facility] erythrom erythrom Active Memori a ycin ycin l [place] glimepir glimepir Active Memori a diane diane l [place] glipiZID glipiZID Active Memori a E E l [employer] iodine iodine Active Memoria l [place] Januvia Januvia Active Memoria l [employer] Lipitor Lipitor Active Memoria l [employer] metFORMI metFORMI Active Memori a N N l [employer] morphine morphine Active Memori a l [place] penicill penicill Active Memori a ins ins l [employer] sulfa sulfa Active Memoria drugs drugs l [place] Wellbutr Wellbutr Active Memori a in in l [place] Bactrim Bactrim Active Memoria l [place] Bandaids Bandaids Active Memori a l [place] clindamy clindamy Active Memori a fabián fabián l [place] codeine codeine Active Memoria l [place] Crestor Crestor Active Memoria l [employer] Darvocet Darvocet Active Memori a -N 50 -N 50 l [employer] clindamy clindamy Active Unknown Commo n fabián fabián [facility] Family History Family Member Diagnosis Comments Start Date Stop Date Source Natural brother Depression [facility] Natural daughter Depression [facility] Natural father Early [facility] Natural mother No Known Problem [facility] Natural sister Depression [facility] Natural son No Known Problem [facility] Social History Social Habit Start Date Stop Date Quantity Comments Source History SDOH University o f Alcohol Frequency [place] M edical Branch History [facility] o f Alcohol Std Drinks [place] Medical [facility] History [facility] University o f Alcohol Binge [place] Medic al Branch History SDOH [facility] History of Tobacco Current Smoker Co mmon Spirit - Use [facility] Sex Assigned At Common Sp tarun - [facility] Alcohol intake 2022-02-21 2022-02-21 Current [facility] St Luis es 00:00:00 00:00:00 non-drinker of Medical Ce nter alcohol (finding) History [facility] 2022-01-25 2022-01-[address] [facility] Transport Med 00:00:00 00:00:[address] [facility] 2022-01-25 2022-01-[address] [facility] Housing Unable to 00:00:00 00:00:00 Medical Center Pay History [facility] 2022-01-25 2022-01-[address] [facility] Housing Places 00:00:00 00:00:00 Medical Ce nter Lived History [facility] 2022-01-25 2022-01-[address] [facility] Housing Homeless 00:00:00 00:00:00 Medical Center Last Year Exposure to 2021-07-24 2021-08-03 Not sure [facility] SARS-CoV-2 (event) 00:00:00 22:08:00 [facility] Alcohol Comment 2019-01-06 2019-01-06 1 glass of wine Univ ersity of 00:00:00 00:00:[address] [facility] dical Branch Cigarettes smoked 2019-01-06 2019-01-06 Univers ity of current (pack per 00:00:00 00:00:00 [facility] ) - Reported Branch Cigarette 2019-01-06 2019-01-06 University of pack-years 00:00:00 00:00:00 [facility] Tobacco use and 2016-12-11 2016-12-11 Smokeless [facility] exposure 00:00:00 00:00:00 tobacco non-user [facility] Tobacco Comment 2016-09-02 2016-09-02 quit in 2015 Univers ity of 00:00:00 00:00:00 [facility] Social History 2016-07-02 2016-07-02 Liliya marley 15:44:33 15:44:33 Smoking Status Start Date Stop Date Source Current Smoker 2022-08-19 00:00:00 Common Spiri t - [facility] Never smoked tobacco [facility] Medications Ordered Filled Start Stop Current Ordering Indication Dosage Frequency Signature Comments Components Source Medication Medication Date Date Medication? Clinician (SIG) Name Name NaCl 0.9% 2022- No 500mL at 999 Univ ers (NS) bolus 10-04 mL/hr, 500 it y of infusion 00:45: 01:55 mL, IV [place] 500 mL 00 :00 Infusion, Medical ONCE, 1 Branch dose, On 10/03/22 at 1945, STAT magnesium 2022- No 2g 2 g, IV Univ ers sulfate in 07-31 Piggyback, it y of water 2 02:30: 02:20 Administer Manuel as gram/50 mL 00 :00 over 60 Medica l (4 %) Minutes, Branch infusion 2 ONCE, 1 g dose, On [facility] 07/30/22 at 2130, Routine metoclopram 2022- No 10mg 10 mg, Uni vers diane HCl 07-31 Slow IV ity of (REGLAN) 01:45: 01:55 Push, [place] injection 00 :00 ONCE, 1 Medical 10 mg dose, On Branch [facility] 07/30/22 at 204, EBENEZER diphenhydrA 2022- No 25mg 25 mg, Uni vers MINE 07-31 Slow IV ity of (BENADRYL) 01:45: 01:55 Push, [place] injection 00 :00 ONCE, 1 Medical 25 mg dose, On Branch [facility] 07/30/22 at 204, STAT ketorolac 2022- No 15mg 15 mg, Unive rs (TORADOL) 07-31 Slow IV ity of injection 01:09: 01:09 Push, ONCE [place] 15 mg 00 :00 NOW, 1 Medical dose, On Branch Yojana 07/30/22 at 2015, Routine NaCl 0.9% No 1000mL at 999 Uni vers (NS) bolus 5-05 05-05 mL/hr, ity of infusion 00:30: 01:07 1,000 mL, Manuel as 1,000 mL 00 :00 IV Medical Infusion, Branch ONCE, 1 dose, On Yojana 07/30/22 at 1930, EBENEZER Lactulose Lactulose No 15{ml} BID Lactulose 10 GM/15ML 10 GM/15ML 3-21 10 GM/15ML 00:00: 00 Metoprolol Metoprolol 2021-03 No 1{table QD [...] by mouth [facility] MG tablet 18:09: nightly. Medi jorge l 49 Center insulin 2021-03 Yes 35U Inject 35 [...] by mouth [facility] MG tablet 18:09: nightly. [address] insulin 2021-03 Yes 35U Inject 35 [facility]I S t aspart 2-08 Units [facility] protamine-i 18:09: [facility] Medical nsulin 49 us 2 Center aspart [...] by mouth [facility] MG tablet 18:09: nightly. [address] insulin 2021-03 Yes 35U Inject 35 CHI S t aspart 2-08 Units [facility]ukes protamine-i 18:09: [facility] nsulin 49 [facility] 2 Center aspart (two) (NOVOLOG times MIX [...] strips 00:00: 00:00 test 00 :00 strips pantoprazol 2021-03 Yes 40mg Q.5D Take 1 [...] total) by Center mouth daily with breakfast. amitriptyli 2021-03- No 5mg Take 5 mg [...] times daily as needed for Cough. amitriptyli 2021-03 Yes 5mg Take 5 mg [...] Center (twelve) hours as needed for Anxiety. Benzonatate Benzonatate 2021- No 1{capsu Benzonatat 200 [...] No 1{capsu Benzonatat 200 MG 200 MG 12-1705 le_as_n e 200 MG 00:00: 00:00 eeded} 00 :00 Benzonatate Benzonatate 2021- No 1{capsu Benzonatat 200 MG 200 MG 12-1705 le_as_n e 200 MG 00:00: 00:00 eeded} [...] 00:00 eeded} 00 :00 Benzonatate Benzonatate 2-0 2- No 1{capsu Benzonatat 200 MG 200 MG 11-10 le_as_n e 200 MG 00:00: 00:00 eeded} 00 :00 Cefdinir Cefdinir 2-0 2022- No Cefdinir 300 MG 300 MG 11-10 300 MG 00:00: 00:00 00 :00 Cefdinir Cefdinir 2-0 2022- No Cefdinir 300 MG 300 MG 11-10 300 MG 00:00: 00:00 00 :00 Cefdinir Cefdinir 2-0 2022- No Cefdinir 300 MG 300 MG 11-10 300 MG 00:00: 00:00 00 :00 Cefdinir Cefdinir 2022-0 2022- No Cefdinir 300 MG 300 MG 10-08 300 MG 00:00: 00:00 00 :00 Cefdinir Cefdinir 2-0 2022- No Cefdinir 300 MG 300 MG 10-08 300 MG 00:00: 00:00 00 :00 Cefdinir Cefdinir 2-0 2022- No Cefdinir 300 MG 300 MG 10-08 300 MG 00:00: 00:00 00 :00 Cefdinir Cefdinir 2-0 2022- No Cefdinir 300 MG 300 MG 10-08 300 MG 00:00: 00:00 00 :00 predniSONE predniSONE 2-0 2022- No QD predniSONE 20 MG 20 MG 10-08 20 MG 00:00: 00:00 00 :00 predniSONE predniSONE 2022-0 2022- No QD predniSONE 20 MG 20 [...] DULoxetine HCl 60 MG HCl 60 MG 6 le} HCl 60 MG 00:00: 00 DULoxetine [...] Pain (scale 7-10). Indication s: acute pain traMADoL 50 2021-0 Yes 4647 50mg Take 1 Univ ers mg tablet 5-09 tablet by ity o f 00:00: mouth [place] 00 every 6 Medical (six) Branch hours as needed for Pain (scale 7-10). Indication s: acute pain traMADoL 50 2021-0 Yes 4647 50mg Take 1 Univ ers mg tablet 5-09 tablet by ity o f 00:00: mouth [place] 00 every 6 Medical (six) Branch hours as needed for Pain (scale 7-10). Indication s: acute pain traMADoL 50 2-0 Yes 4647 50mg Take 1 Univ ers mg tablet 5-09 tablet by ity o f 00:00: mouth [place] 00 every 6 Medical (six) Branch hours as needed for Pain (scale 7-10). Indication s: acute pain traMADoL 50 2-0 Yes 4647 50mg Take 1 Univ ers mg tablet 5-09 tablet by ity o f 00:00: mouth [place] 00 every 6 Medical (six) Branch hours as needed for Pain (scale 7-10). Indication s: acute pain traMADoL 50 2021-0 Yes 4647 50mg Take 1 Univ ers mg tablet 5-09 tablet by ity o f 00:00: mouth [place] 00 every 6 Medical (six) Branch hours as needed for Pain (scale 7-10). Indication s: acute pain methylPREDN methylPREDN 0 2021- No QD methylPRED ISolone 4 ISolone 4 05-28- NISolone 4 MG MG 00:00: 00:00 MG 00 :00 methylPREDN methylPREDN 2021-0 2021- No QD methylPRED ISolone 4 ISolone 4 05-28-10 NISolone 4 MG MG 00:00: 00:00 MG 00 :00 methylPREDN methylPREDN 0 2021- No QD methylPRED ISolone 4 ISolone 4 05-2810 NISolone 4 MG MG 00:00: 00:00 MG 00 :00 Benzonatate Benzonatate 2021-2021- No 1{capsu Benzonatat 100 MG 100 MG 05-2816 le_as_n e 100 MG 00:00: 00:00 eeded} 00 :00 Cefdinir Cefdinir 2021- No Cefdinir 300 MG 300 MG 05-28 300 MG 00:00: 00:00 00 :00 methylPREDN methylPREDN 0 2021- No QD methylPRED ISolone 4 ISolone 4 05-28 NISolone 4 MG MG 00:00: 00:00 MG 00 :00 EPINEPHrine EPINEPHrine No EPINEPHrin 0.3 0.3 -14 e 0.3 MG/0.3ML MG/0.3ML 00:00: MG/0.3ML 00 [...] by mouth ity of tablet 16:37: daily. [place] 13 Medical Branch Cholecalcif 2020-03 Yes Take by Uni vers mechelle, 2-14 mouth ity of Vitamin D3, 16:37: [place]. [place] 1[place]000 [place] 13 [facility] capsule Branch Magnesium 2020-03 Yes Take by Unive rs Oxide 500 2-14 mouth ity of mg Tab 16:37: daily. [place] [address] Medical Branch insulin 2020-03 Yes Inject as Unive rs regular, 2-14 directed ity of human 16:37: as needed. [place] (NOVOLIN R 13 Medical INJECTION) Branch zinc 2020-03 Yes Take by [facility] sulfate 2-14 mouth. ity of (ZINC-15 16:37: [place] ORAL) 13 Medical Branch citalopram 2020-03 Yes 20mg Take 20 mg U nivers 20 mg 2-14 by mouth ity of tablet 16:37: daily. [place] [address] Medical Branch ascorbic 2020-03 Yes 500mg Take 500 Univ ers acid, 2-14 mg by ity of vitamin C, 16:37: mouth [place] 500 mg 13 daily. Medical tablet Branch aspirin 81 2020-03 Yes 81mg Take 81 mg U nivers mg EC 2-14 by mouth ity of tablet 16:37: daily. [place] [address] Medical Branch Cholecalcif 2020-03 Yes Take by Uni vers mechelle, 2-14 mouth ity of Vitamin D3, 16:37: [place]. [place] 1[place]000 [place] 13 [facility] capsule Branch Magnesium 2020-03 Yes Take by Unive rs Oxide 500 2-14 mouth ity of mg Tab 16:37: daily. [place] [address] Medical Branch insulin 2020-03 Yes Inject as Unive rs regular, 2-14 directed ity of human 16:37: as needed. [place] (NOVOLIN R 13 Medical INJECTION) Branch zinc 2020-03 Yes Take by [facility] sulfate 2-14 mouth. ity of (ZINC-15 16:37: [place] ORAL) Medical Branch citalopram 2020-03 Yes 20mg Take 20 mg U nivers 20 mg 2-14 by mouth ity of tablet 16:37: daily. [place] [address] Medical Branch ascorbic 2020-03 Yes 500mg Take 500 Univ ers acid, 2-14 mg by ity of vitamin C, 16:37: mouth [place] 500 mg 13 daily. Medical tablet Branch aspirin 81 2020-03 Yes 81mg Take 81 mg U nivers mg EC 2-14 by mouth ity of tablet 16:37: daily. [place] [address] Medical Branch Cholecalcif 2020-03 Yes Take by Uni vers mechelle, 2-14 mouth ity of Vitamin D3, 16:37: daily. [place] 1[place]000 unit 13 Medical capsule Branch Magnesium 2020-03 Yes Take by Unive rs Oxide 500 2-14 mouth ity of mg Tab 16:37: daily. [place] [address] Medical Branch insulin 2020-03 Yes Inject as Unive rs regular, 2-14 directed ity of human 16:37: as needed. [place] (NOVOLIN R 13 Medical INJECTION) Branch zinc 2020-03 Yes Take by [facility] sulfate 2-14 mouth. ity of (ZINC-15 16:37: [place] ORAL) Medical Branch citalopram 2020-03 Yes 20mg Take 20 mg U nivers 20 mg 2-14 by mouth ity of tablet 16:37: daily. [place] [address] Medical Branch ascorbic 2020-03 Yes 500mg Take 500 Univ ers acid, 2-14 mg by ity of vitamin C, 16:37: mouth [place] 500 mg 13 daily. Medical tablet Branch aspirin 81 2020-03 Yes 81mg Take 81 mg U nivers mg EC 2-14 by mouth ity of tablet 16:37: daily. [place] [address] Medical Branch Cholecalcif 2020-03 Yes Take by Uni vers mechelle, 2-14 mouth ity of Vitamin D3, 16:37: daily. [place] 1[place]000 unit 13 Medical capsule Branch Magnesium 2020-03 Yes Take by Unive rs Oxide 500 2-14 mouth ity of mg Tab 16:37: daily. [place] [address] Medical [place] insulin 2020-03 Yes Inject as Unive rs regular, 2-14 directed ity of human 16:37: as needed. [place] (NOVOLIN R 13 Medical INJECTION) Branch zinc 2020-03 Yes Take by [facility] sulfate 2-14 mouth. ity of (ZINC-15 16:37: [place] ORAL) Medical Branch citalopram 2020-03 Yes 20mg Take 20 mg U nivers 20 mg 2-14 by mouth ity of tablet 16:37: daily. [place] [address] Medical Branch ascorbic 2020-03 Yes 500mg Take 500 [facility] ers acid, 2-14 mg by ity of vitamin C, 16:37: mouth [place] 500 mg 13 daily. Medical tablet Branch aspirin 81 2020-03 Yes 81mg Take 81 mg U nivers mg EC 2-14 by mouth ity of tablet 16:37: daily. [place] [address] Medical Branch Cholecalcif 2020-03 Yes Take by Uni vers mechelle, 2-14 mouth ity of Vitamin D3, 16:37: daily. [place] 1[place]000 unit 13 Medical capsule Branch Magnesium 2020-03 Yes Take by Unive rs Oxide 500 2-14 mouth ity of mg Tab 16:37: daily. [place] [address] Medical Branch insulin 2020-03 Yes Inject as Unive rs regular, 2-14 directed ity of human 16:37: as needed. [place] (NOVOLIN R 13 Medical INJECTION) Branch zinc 2020-03 Yes Take by [facility] sulfate 2-14 mouth. ity of (ZINC-15 16:37: [place] ORAL) Medical Branch citalopram 2020-03 Yes 20mg Take 20 mg U nivers 20 mg 2-14 by mouth ity of tablet 16:37: daily. [place] [address] Medical Branch ascorbic 2020-03 Yes 500mg Take 500 [facility] ers acid, 2-14 mg by ity of vitamin C, 16:37: mouth [place] 500 mg 13 daily. Medical tablet Branch aspirin 81 2020-03 Yes 81mg Take 81 mg U nivers mg EC 2-14 by mouth ity of tablet 16:37: daily. [place] [address] Medical Branch Cholecalcif 2020-03 Yes Take by Uni vers mechelle, 2-14 mouth ity of Vitamin D3, 16:37: daily. [place] 1[place]000 unit 13 Medical capsule Branch Magnesium 2020-03 Yes Take by Unive rs Oxide 500 2-14 mouth ity of mg Tab 16:37: daily. [place] [address] Medical Branch insulin 2020-03 Yes Inject as Unive rs regular, 2-14 directed ity of human 16:37: as needed. [place] (NOVOLIN R 13 Medical INJECTION) Branch zinc 2020-03 Yes Take by [facility] sulfate 2-14 mouth. ity of (ZINC-15 16:37: [place] ORAL) Medical Branch citalopram 2020-03 Yes 20mg Take 20 mg U nivers 20 mg 2-14 by mouth ity of tablet 16:37: daily. [place] [address] Medical Branch ascorbic 2020-03 Yes 500mg Take 500 Univ ers acid, 2-14 mg by ity of vitamin C, 16:37: mouth [place] 500 mg 13 daily. Medical tablet Branch aspirin 81 2020-03 Yes 81mg Take 81 mg U nivers mg EC 2-14 by mouth ity of tablet 16:37: daily. [place] 13 Medical Branch Cholecalcif 2020-03 Yes Take by Uni vers mechelle, 2-14 mouth ity of Vitamin D3, 16:37: daily. [facility] 1,000 unit 13 Medical capsule Branch Magnesium 2020-03 Yes Take by Unive rs Oxide 500 2-14 mouth ity of mg Tab 16:37: daily. [place] 13 Medical Branch insulin 2020-03 Yes Inject as Unive rs regular, 2-14 directed ity of human 16:37: as needed. [place] (NOVOLIN R 13 Medical INJECTION) Branch zinc 2020-03 Yes Take by Univers sulfate 2-14 mouth. ity of (ZINC-15 16:37: [place] ORAL) 13 Medical Branch citalopram 2020-03 Yes 20mg Take 20 mg U nivers 20 mg 2-14 by mouth ity of tablet 16:37: daily. [place] [address] Medical Branch metoprolol 2020-03 Yes [id number] 25mg Take 1 Univers succinate 1-12 tablet by ity o f XL 25 mg 24 00:00: mouth [place] hr tablet 00 daily. Medical Branch metoprolol 2020-03 Yes [id number] 25mg Take 1 [facility] succinate 1-12 tablet by ity o f XL 25 mg 24 00:00: mouth [place] hr tablet 00 daily. Medical Branch metoprolol 2020-03 Yes [id number] 25mg Take 1 U nivers succinate 1-12 tablet by ity o f XL 25 mg 24 00:00: mouth [place] hr tablet 00 daily. Medical Branch metoprolol 2020-03 Yes [id number] 25mg Take 1 U nivers succinate 1-12 tablet by ity o f XL 25 mg 24 00:00: mouth [place] hr tablet 00 daily. Medical Branch metoprolol 2020-03 Yes [id number] 25mg Take 1 U nivers succinate 1-12 tablet by ity o f XL 25 mg 24 00:00: mouth [place] hr tablet 00 daily. Medical Branch metoprolol 2020-03 Yes [id number] 25mg Take 1 U nivers succinate 1-12 tablet by ity o f XL 25 mg 24 00:00: mouth [place] hr tablet 00 daily. Medical Branch metoprolol 2020-03 Yes [id number] 25mg Take 1 U nivers succinate 1-12 tablet by ity o f XL 25 mg 24 00:00: mouth [place] hr tablet 00 daily. Medical Branch Citalopram Citalopram No 1{table QD Citalopram Hydrobromid Hydrobromid 915 t} Hydrobromi e 20 MG e 20 MG 00:00: de 20 MG 00 Metoprolol Metoprolol No 1{capsu QD Metoprolol Succinate Succinate 9-15 le} Succinate 25 MG 25 MG 00:00: 25 MG 00 Ferrous Yes [id number] 1{tbl} Take 1 U nivers Fumarate 9-10 tablet by ity of 324 mg (106 00:00: mouth 2 [place] as mg iron) 00 (two) Medical Tab times Branch daily. Ferrous Yes [id number] 1{tbl} Take 1 U nivers Fumarate 9-10 tablet by ity of 324 mg (106 00:00: mouth 2 [place] mg iron) 00 (two) Medical Tab times Branch daily. Ferrous Yes [id number] 1{tbl} Take 1 U nivers Fumarate 9-10 tablet by ity of 324 mg (106 00:00: mouth 2 [place] mg iron) 00 (two) Medical Tab times Branch daily. Ferrous Yes [id number] 1{tbl} Take 1 U nivers Fumarate 9-10 tablet by ity of 324 mg (106 00:00: mouth 2 [place] mg iron) 00 (two) Medical Tab times Branch daily. Ferrous Yes [id number] 1{tbl} Take 1 U nivers Fumarate 9-10 tablet by ity of 324 mg (106 00:00: mouth 2 [place] mg iron) 00 (two) Medical Tab times Branch daily. Ferrous Yes [id number] 1{tbl} Take 1 U nivers Fumarate 9-10 tablet by ity of 324 mg (106 00:00: mouth 2 [place] mg iron) 00 (two) Medical Tab times Branch daily. Ferrous Yes [id number] 1{tbl} Take 1 U nivers Fumarate 9-10 tablet by ity of 324 mg (106 00:00: mouth 2 [place] mg iron) 00 (two) Medical Tab times Branch daily. insulin NPH Yes [id number] 8U inject 8 Univers and regular 9-08 Units ity of human 70-30 00:00: under the [place] (NOVOLIN 00 skin 2 Medical 70/30 U-100 (two) Branch INSULIN) times 100 unit/mL daily (70-30) before injection breakfast and dinner. insulin NPH Yes [id number] 8U inject 8 Univers and regular 9-08 Units ity of human 70-30 00:00: under the [place] (NOVOLIN 00 skin 2 Medical 70/30 U-100 (two) Branch INSULIN) times 100 unit/mL daily (70-30) before injection breakfast and dinner. insulin NPH Yes [id number] 8U inject 8 Univers and regular 9-08 Units ity of human 70-30 00:00: under the [place] (NOVOLIN 00 skin 2 Medical 70/30 U-100 (two) Branch INSULIN) times 100 unit/mL daily (70-30) before injection breakfast and dinner. insulin NPH Yes [id number] 8U inject 8 Univers and regular 9-08 Units ity of human 70-30 00:00: under the [place] (NOVOLIN 00 skin 2 Medical 70/30 U-100 (two) Branch INSULIN) times 100 unit/mL daily (70-30) before injection breakfast and dinner. insulin NPH Yes [id number] 8U inject 8 Univers and regular 9-08 Units ity of human 70-30 00:00: under the [place] (NOVOLIN 00 skin 2 Medical 70/30 U-100 (two) Branch INSULIN) times 100 unit/mL daily (70-30) before injection breakfast and dinner. insulin NPH Yes [id number] 8U inject 8 Univers and regular 9-08 Units ity of human 70-30 00:00: under the [place] (NOVOLIN 00 skin 2 Medical 70/30 U-100 (two) Branch INSULIN) times 100 unit/mL daily (70-30) before injection breakfast and dinner. insulin NPH 0 Yes [id number] 8U inject 8 Univers and regular 9-08 Units ity of human 70-30 00:00: under the [place] (NOVOLIN 00 skin 2 Medical 70/30 U-100 (two) Branch INSULIN) times 100 unit/mL daily (70-30) before injection breakfast and dinner. SERTraline 0 Yes [id number] 100mg Take 1 Univers 100 mg 9-06 tablet by ity of tablet 00:00: mouth [place] 00 daily. Medical Branch SERTraline 0 Yes [id number] 100mg Take 1 [facility] 100 mg 9-06 tablet by ity of tablet 00:00: mouth [place] 00 daily. Medical Branch SERTraline 0 Yes [id number] 100mg Take 1 [facility] 100 mg 9-06 tablet by ity of tablet 00:00: mouth [place] 00 daily. Medical Branch SERTraline 0 Yes [id number] 100mg Take 1 Univers 100 mg 9-06 tablet by ity of tablet 00:00: mouth [place] 00 daily. Medical Branch SERTraline 0 Yes [id number] 100mg Take 1 [facility] 100 mg 9-06 tablet by ity of tablet 00:00: mouth [place] 00 daily. Medical Branch SERTraline Yes [id number] 100mg Take 1 Univers 100 mg 9-06 tablet by ity of tablet 00:00: mouth [place] 00 daily. Medical Branch SERTraline 0 Yes [id number] 100mg Take 1 [facility] 100 mg 9-06 tablet by ity of tablet 00:00: mouth [place] 00 daily. Medical Branch albuterol Yes [id number] 2{puff} Inhale 2 Univers 90 9-02 Puffs ity of mcg/actuati 00:00: every 6 [place] as on inhaler 00 (six) Medical hours as Branch needed for Wheezing or Shortness of Breath. albuterol Yes [id number] 2{puff} Inhale 2 Univers 90 9-02 Puffs ity of mcg/actuati 00:00: every 6 [place] as on inhaler 00 (six) Medical hours as Branch needed for Wheezing or Shortness of Breath. albuterol Yes [id number] 2{puff} Inhale 2 Univers 90 9-02 Puffs ity of mcg/actuati 00:00: every 6 [place] as on inhaler 00 (six) Medical hours as Branch needed for Wheezing or Shortness of Breath. albuterol Yes [id number] 2{puff} Inhale 2 Univers 90 9-02 Puffs ity of mcg/actuati 00:00: every 6 [place] as on inhaler 00 (six) Medical hours as Branch needed for Wheezing or Shortness of Breath. albuterol 2020-0 Yes [id number] 2{puff} Inhale 2 Univers 90 9-02 Puffs ity of mcg/actuati 00:00: every 6 [place] as on inhaler 00 (six) Medical hours as Branch needed for Wheezing or Shortness of Breath. albuterol 2020-0 Yes [id number] 2{puff} Inhale 2 Univers 90 9-02 Puffs ity of mcg/actuati 00:00: every 6 [place] as on inhaler 00 (six) Medical hours as Branch needed for Wheezing or Shortness of Breath. albuterol 2020-0 Yes [id number] 2{puff} Inhale 2 Univers 90 9-02 Puffs ity of mcg/actuati 00:00: every 6 [place] as on inhaler 00 (six) Medical hours as Branch needed for Wheezing or Shortness of Breath. gabapentin 2020-0 Yes [id number] 200mg Take 2 Univers 100 mg 7-20 capsules ity of capsule 00:00: by mouth [place] 00 every Medical evening. Branch gabapentin 2020-0 Yes [id number] 200mg Take 2 Univers 100 mg 7-20 capsules ity of capsule 00:00: by mouth [place] 00 every Medical evening. Branch gabapentin 2020-0 Yes [id number] 200mg Take 2 Univers 100 mg 7-20 capsules ity of capsule 00:00: by mouth [place] 00 every Medical evening. Branch gabapentin 2020-0 Yes [id number] 200mg Take 2 Univers 100 mg 7-20 capsules ity of capsule 00:00: by mouth [place] 00 every Medical evening. Branch gabapentin 2020-0 Yes [id number] 200mg Take 2 Univers 100 mg 7-20 capsules ity of capsule 00:00: by mouth [place] 00 every Medical evening. Branch gabapentin 2020-0 Yes [id number] 200mg Take 2 Univers 100 mg 7-20 capsules ity of capsule 00:00: by mouth [place] 00 every Medical evening. Branch gabapentin 2020-0 Yes [id number] 200mg Take 2 Univers 100 mg 7-20 capsules ity of capsule 00:00: by mouth [place] 00 every Medical evening. Branch Methylcellu 2020-0 Yes [id number] 17g Take 17 g Univers lose, with 1-27 by mouth ity o f Sugar, 00:00: daily. [place] (CITRUCEL, 00 Medical SUCROSE,) Branch powder Methylcellu 2021-0 Yes [id number] 17g Take 17 g Univers lose, with 1-27 by mouth ity o f Sugar, 00:00: daily. [place] (CITRUCEL, 00 Medical SUCROSE,) Branch powder Methylcellu 2021-0 Yes [id number] 17g Take 17 g Univers lose, with 1-27 by mouth ity o f Sugar, 00:00: daily. [place] (CITRUCEL, 00 Medical SUCROSE,) Branch powder Methylcellu 2021-0 Yes [id number] 17g Take 17 g Univers lose, with 1-27 by mouth ity o f Sugar, 00:00: daily. [place] (CITRUCEL, 00 Medical SUCROSE,) Branch powder Methylcellu 2021-0 Yes [id number] 17g Take 17 g Univers lose, with 1-27 by mouth ity o f Sugar, 00:00: daily. [place] (CITRUCEL, 00 Medical SUCROSE,) Branch powder Methylcellu 2021-0 Yes [id number] 17g Take 17 g Univers lose, with 1-27 by mouth ity o f Sugar, 00:00: daily. [place] (CITRUCEL, 00 Medical SUCROSE,) Branch powder Methylcellu 2021-0 Yes [id number] 17g Take 17 g Univers lose, with 1-27 by mouth ity o f Sugar, 00:00: daily. [place] (CITRUCEL, 00 Medical SUCROSE,) Branch powder Belsomra Belsomra 2018-0 Yes Pricila 1 tablet Common 7-24 [place] at bedtime Spir it 00:00: as needed - [facility] 00 [facility] BusPIRone BusPIRone 2018-0 Yes Pricila 1 tablet Common HCl HCl 6-10 [place] as needed Spiri t 00:00: for - [facility] 00 anxiety [facility] Trazodone Trazodone 2018-0 Yes Pricila 1/2 to 1 Common HCl HCl 6-10 [place] tablet at Spiri t 00:00: bedtime as - [facility] 00 needed for [facility] Ventolin Ventolin 2018-0 Yes Pricila 2 puffs as Common HFA HFA 3-19 [place] needed for Spir it 00:00: sob/wheezi - [facility] 00 ng [facility] amitriptyli 2017-0 Yes 5mg Take 5 mg [...] nightly. Medi jorge l 03 Center insulin 20170 Yes 35U Inject 35 [facility] [...] 40mg Q.5D Take [address] [facility] 9- [facility] tablet (40 [facility] ([facility]: 00:00 mg total) M edical 40 MG 00 :00 by mouth 2 Center tablet (two) times daily. pantoprazol 2021- No 40mg Q.5D Take [address] [facility] 9-05 08-31 tablet (40 [facility] (PROTONIX) 00:00: 00:00 mg total) M edical 40 MG 00 :00 by mouth 2 Center tablet (two) times daily. pantoprazol 2021- No 40mg Q.5D Take [address] 9- 10-31 tablet (40 [facility] (PROTONIX) 00:00: 00:00 [...] l tablet 00 prior to Center admission. [facility] Yes 240 mL, Memori a oral powder 7-06 PO, l for 16:28: Q10Min, [employer] 00 Give jug ion for Colonoscop y, # 1 ea, 0 Refill(s), Pharmacy: [facility] [address] [place] [address] Yes 240 mL, Memori a oral powder 7-06 PO, l for 16:28: Q10Min, [place] [employer] 00 Give jug ion for Colonoscop y, # 1 ea, 0 Refill(s), Pharmacy: [facility] [address] [place] [address] Yes 240 mL, Memori a oral powder 7-06 PO, l for 16:28: Q10Min, [place] [employer] 00 Give jug ion for Colonoscop y, # 1 ea, 0 Refill(s), Pharmacy: [facility] [address] [place] [address] Yes 240 mL, Memori a oral powder 7-06 PO, l for 16:28: Q10Min, [employer] 00 Give jug ion for Colonoscop y, # 1 ea, 0 Refill(s), Pharmacy: [facility] [address] [place] [address] Yes 240 mL, Memori a oral powder 7-06 PO, l for 16:28: Q10Min, [employer] 00 Give jug ion for Colonoscop y, # 1 ea, 0 Refill(s), Pharmacy: [facility] [address] [place] [address] Yes 240 mL, Memori a oral powder 7-06 PO, l for 16:28: Q10Min, [place] [employer] 00 Give jug ion for Colonoscop y, # 1 ea, 0 Refill(s), Pharmacy: [facility] [address] [place] [address] Yes 240 mL, Memori a oral powder 7-06 PO, l for 16:28: Q10Min, [employer] 00 Give jug ion for Colonoscop y, # 1 ea, 0 Refill(s), Pharmacy: [facility] [address] [place] [address] Yes 240 mL, Memori a oral powder 7-06 PO, l for 16:28: Q10Min, [place] [employer] 00 Give jug ion for Colonoscop y, # 1 ea, 0 Refill(s), Pharmacy: [facility] [address] [place] [address] Yes 240 mL, Memori a oral powder 7-06 PO, l for 16:28: Q10Min, [employer] 00 Give jug ion for Colonoscop y, # 1 ea, 0 Refill(s), Pharmacy: [facility] [address] [place] [address] Yes 240 mL, Memori a oral powder 7-06 PO, l for 16:28: Q10Min, [employer] 00 Give jug ion for Colonoscop y, # 1 ea, 0 Refill(s), Pharmacy: [facility] [address] [place] [address] Yes 240 mL, Memori a oral powder 7-06 PO, l for 16:28: Q10Min, [place] [employer] 00 Give jug ion for Colonoscop y, # 1 ea, 0 Refill(s), Pharmacy: [facility] [address] [place] [address] Yes 240 mL, Memori a oral powder 7-06 PO, l for 16:28: Q10Min, [facility] [employer] 00 Give jug ion for Colonoscop y, # 1 ea, 0 Refill(s), Pharmacy: [facility] [address] Yes 240 mL, Memori a oral powder 7-06 PO, l for 16:28: Q10Min, [facility] [employer] 00 Give jug ion for Colonoscop y, # 1 ea, 0 Refill(s), Pharmacy: [facility] [address] Yes 240 mL, Memori a oral powder 7-06 PO, l for 16:28: Q10Min, [employer] 00 Give jug ion for Colonoscop y, # 1 ea, 0 Refill(s), Pharmacy: [facility] 527 Octreotide Yes See Memoria 0.2 MG/ML 4- Instructio l Injectable 20:01: ns, 200 Herm [...] supply Octreotide Yes See Memoria 0.2 MG/ML 06 Instructio l Injectable 20:01: ns, 200 Herm [...] supply Octreotide Yes See Memoria 0.2 MG/ML 4 Instructio l Injectable 20:01: ns, 200 Herm kun Solution 00 microgram [Sandostati IM left n] gluteal muscle, # 1 box, 0 Refill(s), given to patient, Pt brought her own supply 200 ACTUAT Yes 2 puff, Jim maya Albuterol 4-06 INHALATION l 0.09 15:52: , Q4H, 0 [employer] MG/ACTUAT 00 Refill(s) Dry Powder Inhaler ascorbic Yes 500 mg = 1 Mem oria acid 500 mg 4-06 tab, PO, l oral tablet 15:52: Daily, 0 He rmann 00 Refill(s) Lorazepam Yes 0.5 mg = 1 Me moria 0.5 MG Oral 4-06 tab, PO, l Tablet 15:52: TID, 0 [employer] [Ativan] 00 Refill(s) SandoSTATIN Yes IM, q4wk, M emoria [place] 07-02 0 l 15:52: Refill(s) [facility] 00 Docusate Yes 100 mg = 1 Mem oria Sodium 100 4-06 cap, PO, l MG Oral 15:52: BID, 0 [place] Capsule 00 Refill(s) [Colace] NovoLIN Yes SUB-Q, 0 Memori a 70/30 -06 Refill(s) l 15:52: [employer] 00 Metformin Yes 1,000 mg = Me [...] PO, l Tablet 15:52: BID, # 6 [employer] 00 tab, 0 Refill(s) Ondansetron Yes 4 [...] PO, l oral tablet 15:52: Bedtime, # [employer] 00 30 tab, 1 Refill(s) Omeprazole 2017 [...] maya 07-02 Daily, 0 l 15:52: Refill(s) [employer] magnesium Yes 500 mg = 1 Me moria oxide 500 07-02 tab, PO, l mg oral 15:52: Daily, 0 [place] n tablet 00 Refill(s) Tylenol Yes 500 mg, Memoria 07-02 PO, 0 l 15:52: Refill(s) [employer] 00 200 ACTUAT Yes 2 puff, Jim maya Albuterol 07-02 INHALATION l 0.09 15:52: , Q4H, 0 [employer] MG/ACTUAT 00 Refill(s) Dry Powder Inhaler ascorbic [...] [place] 07-02 0 l 15:52: Refill(s) [employer] 00 Docusate Yes 100 mg = 1 [...] PO, l Tablet 15:52: BID, # 6 [employer] 00 tab, 0 Refill(s) Ondansetron 2017 Yes [...] PO, l oral tablet 15:52: Bedtime, # [employer] 00 30 tab, 1 Refill(s) Omeprazole 2017 [...] tab, PO, l Tablet 15:52: Daily, 0 [employer] [Celexa] 00 Refill(s) aspirin 81 Yes 81 mg = 1 Me moria mg tablet, 4-06 tab, PO, l enteric 15:52: Daily, # [place] n coated 00 90 tab, 3 Refill(s) Vitamin B Yes 1 tab, PO, Me moria Complex 4-06 Daily, 0 l oral tablet 15:52: Refill(s) H [place] 00 Fluticasone Yes INHALATION Memoria propionate 07-02 , BID, 0 l 0.05 15:52: Refill(s) [employer] MG/ACTUAT 00 Dry Powder Inhaler Miralax Yes 17 gm, PO, Jim maya 4- Daily, 0 l 15:52: Refill(s) [employer] 00 magnesium Yes 500 mg = 1 [...] [place] 4-06 0 l 15:52: Refill(s) [employer] 00 Docusate 2017 Yes 100 mg = 1 Mem oria Sodium 100 4-06 cap, PO, l MG Oral 15:52: BID, 0 [employer] Capsule 00 Refill(s) [Colace] NovoLIN 2017 Yes SUB-Q, 0 Memori a 70/30 4-06 Refill(s) l 15:52: [employer] 00 Metformin Yes 1,000 mg = Me [...] PO, l Tablet 15:52: BID, # 6 [employer] 00 tab, 0 Refill(s) Ondansetron 2017 Yes 4 mg = 1 Me moria 4 MG Oral 4-06 tab, PO, l Tablet 15:52: Q8H, 0 [facility] [Zofran] 00 Refill(s) clopidogrel Yes 75 mg = 1 M emoria 75 MG Oral 4-06 tab, PO, l Tablet 15:52: Daily, 0 [employer] [Plavix] 00 Refill(s) amitriptyli 2017 Yes 10 [...] = 1 Me moria 20 MG Oral 07-02 tab, PO, l Tablet 15:52: Daily, 0 [facility] [Lasix] 00 Refill(s) Insulin, Yes SUB-Q, Memoria Aspart, 07-02 TID-Before l Human 100 15:52: Meals, 0 [facility] UNT/ML 00 Refill(s) Injectable Solution [NovoLog] Buspar Yes 15 mg, PO, Memor ia 4 BID, 0 l 15:52: Refill(s) [facility] 00 Citalopram Yes 40 mg = 1 Me moria 40 MG Oral 07-02 tab, PO, l Tablet 15:52: Daily, 0 [...] , BID, 0 l 0.05 15:52: Refill(s) [employer] MG/ACTUAT 00 Dry Powder Inhaler Miralax Yes [...] [place] 4-06 0 l 15:52: Refill(s) [employer] 00 Docusate Yes 100 mg = 1 Mem oria Sodium 100 4-06 cap, PO, l MG Oral 15:52: BID, 0 [employer] Capsule 00 Refill(s) [Colace] NovoLIN Yes SUB-Q, [...] PO, l Tablet 15:52: BID, # 6 [employer] 00 tab, 0 Refill(s) Ondansetron 2017 Yes 4 mg = 1 Me moria 4 MG Oral 4-06 tab, PO, l Tablet 15:52: Q8H, 0 [employer] [Zofran] 00 Refill(s) clopidogrel Yes 75 mg = 1 M emoria 75 MG Oral 4-06 tab, PO, l Tablet 15:52: Daily, 0 [employer] [Plavix] 00 Refill(s) amitriptyli Yes 10 mg = 1 M emoria ne 10 mg 4-06 tab, PO, l oral tablet 15:52: Bedtime, # [facility] [employer] [facility] 00 30 tab, 1 Refill(s) Omeprazole 2017 [...] , BID, 0 l 0.05 15:52: Refill(s) [facility] [employer] MG/ACTUAT 00 Dry Powder Inhaler Miralax Yes 17 gm, PO, Jim maya 4-06 Daily, 0 l 15:52: Refill(s) [facility] [employer] 00 magnesium Yes 500 mg = 1 Me moria oxide 500 4-06 tab, PO, l mg oral 15:52: Daily, 0 [facility] tablet 00 Refill(s) Tylenol Yes 500 mg, Memoria 4-06 PO, 0 l 15:52: Refill(s) [facility] 00 200 ACTUAT Yes 2 puff, Jim maya Albuterol 4-06 INHALATION l 0.09 15:52: , Q4H, 0 [employer] MG/ACTUAT 00 Refill(s) Dry Powder Inhaler ascorbic [...] [place] 06 0 l 15:52: Refill(s) [employer] 00 Docusate Yes 100 mg = 1 Mem oria Sodium 100 4-06 cap, PO, l MG Oral 15:52: BID, 0 [facility] Capsule 00 Refill(s) [Colace] NovoLIN Yes SUB-Q, 0 Memori a 70/30 4-06 Refill(s) l 15:52: [employer] 00 Metformin Yes 1,000 mg = Me [...] PO, l Tablet 15:52: BID, # 6 [facility] [employer] [facility] 00 tab, 0 Refill(s) Ondansetron 0 Yes 4 mg = 1 Me moria 4 MG Oral 4-06 tab, PO, l Tablet 15:52: Q8H, 0 [employer] [Zofran] 00 Refill(s) clopidogrel 2017 Yes 75 [...] tab, PO, l Tablet 15:52: Daily, 0 [facility] [employer] [Lasix] 00 Refill(s) Insulin, 2017 Yes SUB-Q, [...] maya 4- Daily, 0 l 15:52: Refill(s) [facility] [employer] magnesium Yes 500 mg = 1 Me moria oxide 500 - tab, PO, l mg oral 15:52: Daily, 0 [facility] tablet 00 Refill(s) Tylenol Yes 500 mg, Memoria - PO, 0 l 15:52: Refill(s) [facility] [employer] [facility] 00 200 ACTUAT Yes 2 puff, Jim maya Albuterol -06 INHALATION l 0.09 15:52: , Q4H, 0 [facility] [employer] [facility] MG/ACTUAT 00 Refill(s) Dry Powder Inhaler ascorbic Yes 500 mg = 1 Mem oria acid 500 mg -06 tab, PO, l oral tablet 15:52: Daily, 0 [facility] 00 Refill(s) Lorazepam Yes 0.5 mg = 1 Me moria 0.5 MG Oral 07-02 tab, PO, l Tablet 15:52: TID, 0 [facility] [Ativan] 00 Refill(s) SandoSTATIN Yes IM, q4wk, M emoria [place] 07-02 0 l 15:52: Refill(s) [facility] 00 Docusate Yes 100 mg = 1 Mem oria Sodium 100 - cap, PO, l MG Oral 15:52: BID, 0 [facility] Capsule 00 Refill(s) [Colace] NovoLIN Yes SUB-Q, [...] PO, l Tablet 15:52: BID, # 6 [facility] 00 tab, 0 Refill(s) Ondansetron 2017 Yes 4 mg = 1 Me moria 4 MG Oral 4-06 tab, PO, l Tablet 15:52: Q8H, 0 [facility] [Zofran] 00 Refill(s) clopidogrel 2017 Yes 75 mg = 1 M emoria 75 MG Oral 4-06 tab, PO, l Tablet 15:52: Daily, 0 [facility] [Plavix] 00 Refill(s) amitriptyli 2017 Yes 10 mg = 1 M emoria ne 10 mg 4-06 tab, PO, l oral tablet 15:52: Bedtime, # [facility] 00 30 tab, 1 Refill(s) Omeprazole 2017 [...] tab, PO, l Tablet 15:52: Daily, 0 [facility] [Lasix] 00 Refill(s) Insulin, 2017 Yes SUB-Q, Memoria Aspart, 4-06 TID-Before l Human 100 15:52: Meals, 0 [facility] UNT/ML 00 Refill(s) Injectable Solution [NovoLog] Buspar Yes 15 mg, PO, Memor ia 4-06 BID, 0 l 15:52: Refill(s) [facility] 00 Citalopram Yes 40 mg = 1 [...] ermann 00 Fluticasone Yes INHALATION Memoria propionate 4- , BID, 0 l 0.05 15:52: Refill(s) [facility] [employer] [facility] MG/ACTUAT 00 Dry Powder Inhaler Miralax Yes 17 gm, PO, Jim maya 4-06 Daily, 0 l 15:52: Refill(s) [facility] 00 magnesium Yes 500 mg = 1 Me moria oxide 500 4-06 tab, PO, l mg oral 15:52: Daily, 0 [facility] tablet 00 Refill(s) Tylenol Yes 500 mg, Memoria 4-06 PO, 0 l 15:52: Refill(s) [facility] 00 200 ACTUAT Yes 2 puff, Jim maya Albuterol -06 INHALATION l 0.09 15:52: , Q4H, 0 [facility] [employer] [facility] MG/ACTUAT 00 Refill(s) Dry Powder Inhaler ascorbic Yes 500 mg = 1 Mem oria acid 500 mg 4-06 tab, PO, l oral tablet 15:52: Daily, 0 [facility] 00 Refill(s) Lorazepam Yes 0.5 mg = 1 Me moria 0.5 MG Oral 4-06 tab, PO, l Tablet 15:52: TID, 0 [facility] [Ativan] 00 Refill(s) SandoSTATIN 2017 Yes IM, q4wk, M emoria [place] 4-06 0 l 15:52: Refill(s) [facility] 00 Docusate Yes 100 mg = 1 Mem oria Sodium 100 4-06 cap, PO, l MG Oral 15:52: BID, 0 [employer] Capsule 00 Refill(s) [Colace] NovoLIN Yes SUB-Q, [...] tab, PO, l Tablet 15:52: Q8H, 0 [employer] [Zofran] 00 Refill(s) clopidogrel Yes 75 mg = 1 M emoria 75 MG Oral 4-06 tab, PO, l Tablet 15:52: Daily, 0 [facility] [employer] [Plavix] 00 Refill(s) amitriptyli Yes 10 mg = 1 M emoria ne 10 mg 4-06 tab, PO, l oral tablet 15:52: Bedtime, # [facility] 00 30 tab, 1 Refill(s) Omeprazole 2017 [...] tab, PO, l Tablet 15:52: Daily, 0 [facility] [Celexa] 00 Refill(s) aspirin 81 Yes 81 [...] maya 4-06 Daily, 0 l 15:52: Refill(s) [facility] 00 magnesium Yes 500 mg = 1 Me moria oxide 500 4-06 tab, PO, l mg oral 15:52: Daily, 0 [facility] tablet 00 Refill(s) Tylenol Yes 500 mg, Memoria 4-06 PO, 0 l 15:52: Refill(s) [facility] 00 200 ACTUAT Yes 2 puff, Jim maya Albuterol 4-06 INHALATION l 0.09 15:52: , Q4H, 0 [facility] [employer] [facility] MG/ACTUAT 00 Refill(s) Dry Powder Inhaler ascorbic [...] PO, l MG Oral 15:52: BID, 0 [facility] Capsule 00 Refill(s) [Colace] NovoLIN Yes SUB-Q, [...] PO, l Tablet 15:52: BID, # 6 [facility] 00 tab, 0 Refill(s) Ondansetron Yes 4 mg = 1 Me moria 4 MG Oral 4-06 tab, PO, l Tablet 15:52: Q8H, 0 [facility] [employer] [Zofran] 00 Refill(s) clopidogrel Yes 75 mg = 1 M emoria 75 MG Oral 4-06 tab, PO, l Tablet 15:52: Daily, 0 [facility] [Plavix] 00 Refill(s) 200 ACTUAT Yes 2 puff, Jim maya Albuterol 4-06 INHALATION l 0.09 15:52: , Q4H, 0 [facility] MG/ACTUAT 00 Refill(s) Dry Powder Inhaler ascorbic Yes 500 mg = 1 Mem oria acid 500 mg 4-06 tab, PO, l oral tablet 15:52: Daily, 0 [facility] 00 Refill(s) Lorazepam Yes 0.5 mg = 1 Me moria 0.5 MG Oral 4-06 tab, PO, l Tablet 15:52: TID, 0 [facility] [Ativan] 00 Refill(s) SandoSTATIN Yes IM, q4wk, M emoria [place] 06 0 l 15:52: Refill(s) [facility] [employer] 00 Docusate Yes 100 mg = 1 Mem oria Sodium 100 4-06 cap, PO, l MG Oral 15:52: BID, 0 [facility] Capsule 00 Refill(s) [Colace] NovoLIN Yes SUB-Q, 0 Memori a 70/30 4-06 Refill(s) l 15:52: [facility] [employer] [facility] 00 amitriptyli Yes 10 mg = 1 M emoria ne 10 mg 4-06 tab, PO, l oral tablet 15:52: Bedtime, # [facility] 00 30 tab, 1 Refill(s) Metformin Yes 1,000 mg = Me moria [...] tab, PO, l Tablet 15:52: Daily, 0 [facility] [Plavix] 00 Refill(s) amitriptyli 2017 Yes 10 mg = 1 M emoria ne 10 mg 4-06 tab, PO, l oral tablet 15:52: Bedtime, # [facility] [employer] 00 30 tab, 1 Refill(s) Omeprazole 2017 [...] ermann oral 00 Daily, 0 capsule Refill(s) Omeprazole Yes 40 mg = 1 Me moria 40 MG 4-06 cap, PO, l Enteric 15:52: Daily, 0 [facility] Coated 00 Refill(s) Capsule [Prilosec] Furosemide Yes 20 mg = 1 Me [...] tab, PO, l Tablet 15:52: Daily, 0 [employer] [Celexa] 00 Refill(s) aspirin 81 Yes 81 mg = 1 Me moria mg tablet, 4-06 tab, PO, l enteric 15:52: Daily, # [facility] coated 00 90 tab, 3 Refill(s) Vitamin B Yes 1 tab, PO, Me moria Complex 4-06 Daily, 0 l oral tablet 15:52: Refill(s) [facility] 00 Fluticasone Yes INHALATION Memoria propionate - , BID, 0 l 0.05 15:52: Refill(s) [employer] MG/ACTUAT 00 Dry Powder Inhaler Miralax Yes 17 gm, PO, Jim maya 4- Daily, 0 l 15:52: Refill(s) [facility] 00 magnesium Yes 500 mg = 1 Me moria oxide 500 4-06 tab, PO, l mg oral 15:52: Daily, 0 [facility] tablet 00 Refill(s) Tylenol Yes 500 mg, Memoria -06 PO, 0 l 15:52: Refill(s) [facility] 00 Cyclobenzap Yes 5 mg = 1 [...] tab, PO, l Tablet 15:52: Daily, 0 [facility] [Lasix] 00 Refill(s) Insulin, Yes SUB-Q, Memoria Aspart, 06 TID-Before l Human 100 15:52: Meals, 0 [facility] UNT/ML 00 Refill(s) Injectable Solution [NovoLog] Buspar Yes 15 mg, PO, Memor ia 4-06 BID, 0 l 15:52: Refill(s) [facility] [employer] 00 Citalopram Yes 40 mg = 1 Me moria 40 MG Oral 4-06 tab, PO, l Tablet 15:52: Daily, 0 [facility] [Celexa] 00 Refill(s) aspirin 81 Yes 81 [...] maya 4- Daily, 0 l 15:52: Refill(s) [facility] 00 magnesium Yes 500 mg = 1 Me moria oxide 500 - tab, PO, l mg oral 15:52: Daily, 0 [facility] tablet 00 Refill(s) Tylenol Yes 500 mg, Memoria 4-06 PO, 0 l 15:52: Refill(s) [facility] [employer] [facility] 00 200 ACTUAT Yes 2 puff, Jim maya Albuterol 07-02 INHALATION l 0.09 15:52: , Q4H, 0 [facility] MG/ACTUAT 00 Refill(s) Dry Powder Inhaler ascorbic Yes 500 mg = 1 Mem oria acid 500 mg 4-06 tab, PO, l oral tablet 15:52: Daily, 0 [facility] 00 Refill(s) Lorazepam Yes 0.5 mg = 1 Me moria 0.5 MG Oral 4-06 tab, PO, l Tablet 15:52: TID, 0 [facility] [Ativan] 00 Refill(s) SandoSTATIN Yes IM, q4wk, M emoria [place] 06 0 l 15:52: Refill(s) [facility] 00 Docusate Yes 100 mg = 1 Mem oria Sodium 100 4-06 cap, PO, l MG Oral 15:52: BID, 0 [facility] Capsule 00 Refill(s) [Colace] NovoLIN 0 Yes SUB-Q, 0 Memori a 70/30 4-06 [...] PO, l Tablet 15:52: BID, # 6 [facility] 00 tab, 0 Refill(s) Ondansetron 2017 Yes 4 mg = 1 Me moria 4 MG Oral 4-06 tab, PO, l Tablet 15:52: Q8H, 0 [facility] [Zofran] 00 Refill(s) clopidogrel 2017 Yes 75 mg = 1 M emoria 75 MG Oral 4-06 tab, PO, l Tablet 15:52: Daily, 0 [facility] [Plavix] 00 Refill(s) amitriptyli Yes 10 mg [...] tab, PO, l Tablet 15:52: Daily, 0 [facility] [Lasix] 00 Refill(s) Insulin, 2017 Yes SUB-Q, Memoria Aspart, - TID-Before l [...] ermann 00 Fluticasone Yes INHALATION Memoria propionate - , BID, 0 l 0.05 15:52: Refill(s) [facility] MG/ACTUAT 00 Dry Powder Inhaler Miralax Yes 17 gm, PO, Jim maya - Daily, 0 l 15:52: Refill(s) [facility] 00 magnesium Yes 500 mg = 1 Me moria oxide 500 - tab, PO, l mg oral 15:52: Daily, 0 [facility] tablet 00 Refill(s) Tylenol Yes 500 mg, Memoria 4-06 PO, 0 l 15:52: Refill(s) [facility] [employer] [facility] 00 200 ACTUAT Yes 2 puff, Jim maya Albuterol -06 INHALATION l 0.09 15:52: , Q4H, 0 [facility] [employer] [facility] MG/ACTUAT 00 Refill(s) Dry Powder Inhaler ascorbic Yes 500 mg = 1 Mem oria acid 500 mg 4-06 tab, PO, l oral tablet 15:52: Daily, 0 [facility] 00 Refill(s) Lorazepam 2017 Yes 0.5 mg = 1 Me moria 0.5 MG Oral 4-06 tab, PO, l Tablet 15:52: TID, 0 [facility] [employer] [facility] [Ativan] 00 Refill(s) SandoSTATIN 2017 Yes IM, q4wk, M emoria [place] 4-06 0 l 15:52: Refill(s) [facility] 00 Docusate Yes 100 mg = 1 Mem oria Sodium 100 4-06 cap, PO, l MG Oral 15:52: BID, 0 [facility] [facility] Capsule 00 Refill(s) [Colace] NovoLIN Yes SUB-Q, [...] PO, l Tablet 15:52: BID, # 6 [facility] 00 tab, 0 Refill(s) Ondansetron Yes 4 mg = 1 Me moria 4 MG Oral 4-06 tab, PO, l Tablet 15:52: Q8H, 0 [facility] [Zofran] 00 Refill(s) clopidogrel Yes 75 mg = 1 M emoria 75 MG Oral 4-06 tab, PO, l Tablet 15:52: Daily, 0 [facility] [employer] [facility] [Plavix] 00 Refill(s) amitriptyli Yes 10 mg = 1 M emoria ne 10 mg 4-06 tab, PO, l oral tablet 15:52: Bedtime, # [facility] [employer] [facility] 00 30 tab, 1 Refill(s) Omeprazole Yes [...] tab, PO, l Tablet 15:52: Daily, 0 [facility] [employer] [facility] [Celexa] 00 Refill(s) aspirin 81 Yes 81 mg = 1 Me moria mg tablet, -06 tab, PO, l enteric 15:52: Daily, # [facility] coated 00 90 tab, 3 Refill(s) Vitamin B Yes 1 tab, PO, Me moria Complex 4-06 Daily, 0 l oral tablet 15:52: Refill(s) [facility] 00 Fluticasone Yes INHALATION Memoria propionate 07-02 , BID, 0 l 0.05 15:52: Refill(s) [facility] MG/ACTUAT 00 Dry Powder Inhaler Miralax Yes 17 gm, PO, Jim maya 4-06 Daily, 0 l 15:52: Refill(s) [facility] 00 magnesium Yes 500 mg = 1 Me moria oxide 500 4-06 tab, PO, l mg oral 15:52: Daily, 0 [facility] tablet 00 Refill(s) Tylenol Yes 500 mg, Memoria 4-06 PO, 0 l 15:52: Refill(s) [facility] [employer] [facility] 00 200 ACTUAT Yes 2 puff, Jim [...] tab, PO, l Tablet 15:52: TID, 0 [facility] [Ativan] 00 Refill(s) SandoSTATIN Yes IM, q4wk, M emoria [place] 06 0 l 15:52: Refill(s) [facility] 00 Docusate Yes 100 mg = 1 Mem oria Sodium 100 4-06 cap, PO, l MG Oral 15:52: BID, 0 [facility] Capsule 00 Refill(s) [Colace] NovoLIN Yes SUB-Q, 0 Memori a 70/30 4-06 Refill(s) l 15:52: [facility] 00 Metformin Yes 1,000 mg = Me [...] PO, l Tablet 15:52: BID, # 6 [facility] 00 tab, 0 Refill(s) Ondansetron Yes 4 mg = 1 Me moria 4 MG Oral 4-06 tab, PO, l Tablet 15:52: Q8H, 0 [facility] [Zofran] 00 Refill(s) clopidogrel Yes 75 mg = 1 M emoria 75 MG Oral 4-06 tab, PO, l Tablet 15:52: Daily, 0 [facility] [employer] [facility] [Plavix] 00 Refill(s) amitriptyli 2017 Yes 10 mg = 1 M emoria ne 10 mg 4-06 tab, PO, l oral tablet 15:52: Bedtime, # [facility] 00 30 tab, 1 Refill(s) Omeprazole 2017 [...] Memoria 07-02 PO, 0 l 15:52: Refill(s) [facility] 00 200 ACTUAT Yes 2 puff, Jim maya Albuterol 07-02 INHALATION l 0.09 15:52: , Q4H, 0 [facility] [employer] [facility] MG/ACTUAT 00 Refill(s) Dry Powder Inhaler ascorbic [...] [place] 07-02 0 l 15:52: Refill(s) [facility] 00 Docusate Yes 100 mg = 1 Mem oria Sodium 100 07-02 cap, PO, l MG Oral 15:52: BID, 0 [facility] [employer] [facility] Capsule 00 Refill(s) [Colace] NovoLIN Yes SUB-Q, 0 Memori a 70/30 06 Refill(s) l 15:52: [facility] 00 Metformin Yes 1,000 mg = Me [...] PO, l oral tablet 15:52: Bedtime, # [facility] 00 30 tab, 1 Refill(s) Omeprazole 2017 [...] ia 4-06 BID, 0 l 15:52: Refill(s) Citalopram Yes 40 mg = 1 Me moria 40 MG Oral 4-06 tab, PO, l Tablet 15:52: Daily, 0 [employer] [Celexa] 00 Refill(s) aspirin 81 2017 Yes 81 mg = 1 Me moria mg tablet, 4-06 tab, PO, l enteric 15:52: Daily, # [facility] coated 00 90 tab, 3 Refill(s) Vitamin B Yes 1 tab, PO, Me moria Complex 4-06 Daily, 0 l oral tablet 15:52: Refill(s) H erm Fluticasone Yes INHALATION Memoria propionate 07-02 , BID, 0 l 0.05 15:52: Refill(s) [facility] [employer] [facility] MG/ACTUAT 00 Dry Powder Inhaler Miralax Yes 17 gm, PO, Jim maya 4-06 Daily, 0 l 15:52: Refill(s) magnesium Yes 500 mg = 1 Me moria oxide 500 4- tab, PO, l mg oral 15:52: Daily, 0 [facility] tablet 00 Refill(s) Tylenol Yes 500 mg, Memoria 4-06 PO, 0 l 15:52: Refill(s) [facility] 00 200 ACTUAT Yes 2 puff, Jim maya Albuterol -06 INHALATION l 0.09 15:52: , Q4H, 0 [facility] MG/ACTUAT Refill(s) Dry Powder Inhaler ascorbic Yes 500 mg = 1 Mem oria acid 500 mg 4-06 tab, PO, l oral tablet 15:52: Daily, 0 [facility] 00 Refill(s) Lorazepam Yes 0.5 mg = 1 Me moria 0.5 MG Oral 4-06 tab, PO, l Tablet 15:52: TID, 0 [facility] [employer] [facility] [Ativan] 00 Refill(s) SandoSTATIN Yes IM, q4wk, M emoria [place] 06 0 l 15:52: Refill(s) [facility] 00 Docusate 2017-0 Yes 100 mg = 1 Mem oria Sodium 100 4-06 cap, PO, l MG Oral 15:52: BID, 0 [facility] Capsule 00 Refill(s) [Colace] NovoLIN 2017-0 Yes SUB-Q, 0 Memori a 70/30 4-06 Refill(s) l 15:52: [facility] 00 Metformin 20170 Yes 1,000 mg = Me moria hydrochlori [...] PO, l Tablet 15:52: BID, # 6 [facility] 00 tab, 0 Refill(s) Ondansetron 2017 Yes 4 mg = 1 Me moria 4 MG Oral 4-06 tab, PO, l Tablet 15:52: Q8H, 0 [facility] [Zofran] 00 Refill(s) clopidogrel 2017 Yes 75 mg = 1 M emoria 75 MG Oral 4-06 tab, PO, l Tablet 15:52: Daily, 0 [facility] [employer] [facility] [Plavix] 00 Refill(s) amitriptyli 2017 Yes 10 mg = 1 M emoria ne 10 mg 4-06 tab, PO, l oral tablet 15:52: Bedtime, # [facility] 00 30 tab, 1 Refill(s) Omeprazole 2017 [...] tab, PO, l Tablet 15:52: Daily, 0 [facility] [employer] [facility] [Lasix] 00 Refill(s) Insulin, 2017 Yes SUB-Q, Memoria Aspart, 07-02 TID-Before l Human 100 15:52: Meals, 0 [facility] UNT/ML 00 Refill(s) Injectable Solution [NovoLog] Buspar Yes 15 mg, PO, Memor ia 4- BID, 0 l 15:52: Refill(s) [facility] 00 Citalopram Yes 40 mg = 1 Me moria 40 MG Oral 07-02 tab, PO, l Tablet 15:52: Daily, 0 [facility] [Celexa] 00 Refill(s) aspirin 81 Yes 81 mg = 1 Me moria mg tablet, - tab, PO, l enteric 15:52: Daily, # [facility] coated 00 90 tab, 3 Refill(s) Vitamin B Yes 1 tab, PO, Me moria Complex 4- Daily, 0 l oral tablet 15:52: Refill(s) [facility] 00 Fluticasone Yes INHALATION Memoria propionate 07-02 , BID, 0 l 0.05 15:52: Refill(s) [facility] [employer] [facility] MG/ACTUAT 00 Dry Powder Inhaler Miralax Yes 17 gm, PO, Jim maya 07-02 Daily, 0 l 15:52: Refill(s) [facility] 00 magnesium Yes 500 mg = 1 Me moria oxide 500 -06 tab, PO, l mg oral 15:52: Daily, 0 [facility] tablet 00 Refill(s) Tylenol Yes 500 mg, Memoria -06 PO, 0 l 15:52: Refill(s) [facility] [facility] 00 Citalopram Citalopram Yes Pricila 1 tablet [facility] Hydrobromid Hydrobromid [facility] Vitamin D Vitamin D Yes Pricila 1 tablet Common [facility] Metformin Metformin Yes Pricila 1 tablet Common HCl HCl [facility] Vitamin C Vitamin C Yes Pricila as Comm on [facility] Aspirin Aspirin Yes Pricila 1 tablet Comm on Adult Low Adult Low [facility] Strength St[facility] - [facility] Gabapentin Gabapentin Yes Pricila 2 capsules Common [facility] Vitamin B Vitamin B Yes Pricila as Comm on Complex Complex [facility] Aspirin Aspirin No 1{table QD Aspirin [...] 300 MG 300 MG NovoLIN NovoLIN No BID NovoLIN 70/30 70/30 70/30 FlexPen FlexPen FlexPen (70-30) 100 (70-30) 100 (70-30) UNIT/ML UNIT/ML 100 UNIT/ML Vitamin C Vitamin C No Vitamin C 500 MG 500 MG 500 MG Fish Oil Fish Oil No Fish Oil Zinc 50 MG Zinc 50 MG No 1{table QD Zinc 50 MG t} Magnesium Magnesium No 1{table BID Magnesium Oxide 400 Oxide 400 t_as_ne Oxide 400 MG MG eded} MG DULoxetine DULoxetine No 1{capsu QD DULoxetine HCl 60 MG HCl 60 MG le} HCl 60 MG Ventolin Ventolin No Ventolin HFA 108 (90 HFA 108 (90 HFA 108 Base) Base) (90 Base) MCG/ACT MCG/ACT MCG/ACT Pregabalin Pregabalin No 1{capsu Pregabalin 50 MG 50 MG le} 50 MG Vitamin B Vitamin B No Vitamin B Complex - Complex - Complex - Ferrous Ferrous No 1{table QD Ferrous Sulfate 325 Sulfate 325 t} Sulfate (65 Fe) MG (65 Fe) MG 325 (65 Fe) MG Gabapentin Gabapentin No Gabapentin 100 MG 100 MG 100 MG Losartan Losartan No 1{table BID Losartan Potassium Potassium t} Potassium 25 MG 25 MG 25 MG Pantoprazol Pantoprazol No 1{table QD Pantoprazo e Sodium 40 e Sodium 40 t} le Sodium MG MG 40 MG Magnesium Magnesium No 1{table QD [...] Gabapentin 300 MG 300 MG 300 MG amLODIPine amLODIPine No 1{table QD amLODIPine Besylate 10 Besylate 10 t} Besylate MG MG 10 MG Buprenorphi Buprenorphi No 1{patch Buprenorph ne 5 MCG/HR ne 5 MCG/HR _to_ski ine 5 n} MCG/HR Citalopram Citalopram No Citalopram Hydrobromid Hydrobromid Hydrobromi e 20 MG e 20 MG de 20 MG Omeprazole Omeprazole No QD Omeprazole 40 MG 40 MG 40 MG NovoLIN NovoLIN No NovoLIN 70/30 70/30 70/30 FlexPen FlexPen FlexPen (70-30) 100 (70-30) 100 (70-30) UNIT/ML UNIT/ML 100 UNIT/ML Ventolin Ventolin No Ventolin HFA 108 (90 HFA 108 (90 HFA 108 Base) Base) (90 Base) MCG/ACT MCG/ACT MCG/ACT Linzess 145 Linzess 145 No QD Linzess mcg mcg 145 mcg Metoprolol Metoprolol No Metoprolol Succinate Succinate Succinate ER 50 MG ER 50 MG ER 50 MG Metoprolol Metoprolol No 1{capsu QD Metoprolol Succinate Succinate le} Succinate 50 MG 50 MG 50 MG Metoprolol Metoprolol No 1{capsu QD Metoprolol [...] (PPSV23) 2022-04-30 Completed [facility] - 14:13:00 [facility] Pneumovax (PPSV23) Pneumovax (PPSV23) 2022-04-30 Completed [facility] - 14:13:00 [facility] FLUZONE HIGH DOSE FLUZONE HIGH DOSE 2021-12-30 Completed [facility] - OVER 65 OVER 65 14:13:00 [facility] FLUZONE HIGH DOSE FLUZONE HIGH DOSE 2021-12-30 Completed [facility] - OVER 65 OVER 65 14:13:00 [facility] FLUZONE HIGH DOSE FLUZONE HIGH DOSE 2021-12-30 Completed [facility] - OVER 65 OVER 65 14:13:00 [facility] FLUZONE HIGH DOSE FLUZONE HIGH DOSE 2021-12-30 Completed [facility] - OVER 65 OVER 65 14:13:00 [facility] FLUZONE HIGH DOSE FLUZONE HIGH DOSE 2021-12-30 Completed [facility] - OVER 65 OVER 65 14:13:00 [facility] FLUZONE HIGH DOSE FLUZONE HIGH DOSE 2021-12-30 Completed [facility] - OVER 65 OVER 65 14:13:00 [facility] FLUZONE HIGH DOSE FLUZONE HIGH DOSE 2021-12-30 Completed [facility] - OVER 65 OVER 65 14:13:00 [facility] FLUZONE HIGH DOSE FLUZONE HIGH DOSE 2021-12-30 Completed [facility] - OVER 65 OVER 65 14:13:00 [facility] FLUZONE HIGH DOSE FLUZONE HIGH DOSE 2021-12-30 Completed [facility] - OVER 65 OVER 65 14:13:00 [facility] FLUZONE HIGH DOSE FLUZONE HIGH DOSE 2021-12-30 Completed [facility] - OVER 65 OVER 65 14:13:00 [facility] FLUZONE HIGH DOSE FLUZONE HIGH DOSE 2021-12-30 Completed [facility] - OVER 65 OVER 65 14:13:00 [facility] FLUZONE HIGH DOSE FLUZONE HIGH DOSE 2021-12-30 Completed [facility] - OVER 65 OVER 65 14:13:00 [facility] FLUZONE HIGH DOSE FLUZONE HIGH DOSE 2021-12-30 Completed [facility] - OVER 65 OVER 65 14:13:00 [facility] FLUZONE HIGH DOSE FLUZONE HIGH DOSE 2021-12-30 Completed [facility] - OVER 65 OVER 65 14:13:00 [facility] FLUZONE HIGH DOSE FLUZONE HIGH DOSE 2021-12-30 Completed [facility] - OVER 65 OVER 65 14:13:00 [facility] FLUZONE HIGH DOSE FLUZONE HIGH DOSE 2021-12-30 Completed [facility] - OVER 65 OVER 65 14:13:00 [facility] FLUZONE HIGH DOSE FLUZONE HIGH DOSE 2021-12-30 Completed [facility] - OVER 65 OVER 65 14:13:00 [facility] FLUZONE HIGH DOSE FLUZONE HIGH DOSE 2021-12-30 Completed [facility] - OVER 65 OVER 65 14:13:00 [facility] FLUZONE HIGH DOSE FLUZONE HIGH DOSE 2021-12-30 Completed [facility] - OVER 65 OVER 65 14:13:00 [facility] FLUZONE HIGH DOSE FLUZONE HIGH DOSE 2021-12-30 Completed [facility] - OVER 65 OVER 65 14:13:00 [facility] FLUZONE HIGH DOSE FLUZONE HIGH DOSE 2021-12-30 Completed [facility] - OVER 65 OVER 65 14:13:00 [facility] FLUZONE HIGH DOSE FLUZONE HIGH DOSE 2021-12-30 Completed [facility] - OVER 65 OVER 65 14:13:00 [facility] FLUZONE HIGH DOSE FLUZONE HIGH DOSE 2021-12-30 Completed [facility] - OVER 65 OVER 65 14:13:00 [facility] FLUZONE HIGH DOSE FLUZONE HIGH DOSE 2021-12-30 Completed [facility] - OVER 65 OVER 65 14:13:00 [facility] FLUZONE HIGH DOSE FLUZONE HIGH DOSE 2021-12-30 Completed [facility] - OVER 65 OVER 65 14:13:00 [facility] FLUZONE HIGH DOSE FLUZONE HIGH DOSE 2021-12-30 Completed [facility] - OVER 65 OVER 65 14:13:00 [facility] Shingrix Shingrix 2021-01-26 Completed [facility] - 09:39:00 [facility] Shingrix Shingrix 2021-01-26 Completed [facility] - 09:39:00 [facility] Shingrix Shingrix 2021-01-26 Completed [facility] - 09:39:00 [facility] Shingrix Shingrix 2021-01-26 Completed [facility] - 09:39:00 [facility] Shingrix Shingrix 2021-01-26 Completed [facility] - 09:39:00 [facility] Shingrix Shingrix 2021-01-26 Completed [facility] - 09:39:00 [facility] Shingrix Shingrix 2021-01-26 Completed [facility] - 09:39:00 [facility] Shingrix Shingrix 2021-01-26 Completed [facility] - 09:39:00 [facility] Shingrix Shingrix 2021-01-26 Completed [facility] - 09:39:00 [facility] Shingrix Shingrix 2021-01-26 Completed [facility] - 09:39:00 [facility] Shingrix Shingrix 2021-01-26 Completed [facility] - 09:39:00 [facility] Shingrix Shingrix 2021-01-26 Completed [facility] - 09:39:00 [facility] Shingrix Shingrix 2021-01-26 Completed [facility] - 09:39:00 [facility] Shingrix Shingrix 2021-01-26 Completed [facility] - 09:39:00 [facility] Shingrix Shingrix 2021-01-26 Completed [facility] - 09:39:00 [facility] Shingrix Shingrix 2021-01-26 Completed [facility] - 09:39:00 [facility] Shingrix Shingrix 2021-01-26 Completed [facility] - 09:39:00 [facility] Shingrix Shingrix 2021-01-26 Completed [facility] - 09:39:00 [facility] Shingrix Shingrix 2021-01-26 Completed [facility] - 09:39:00 [facility] Shingrix Shingrix 2021-01-26 Completed [facility] - 09:39:00 [facility] Shingrix Shingrix 2021-01-26 Completed [facility] - 09:39:00 [facility] Shingrix Shingrix 2021-01-26 Completed [facility] - 09:39:00 [facility] Shingrix Shingrix 2021-01-26 Completed [facility] - 09:39:00 [facility] Shingrix Shingrix 2021-01-26 Completed [facility] - 09:39:00 [facility] Shingrix Shingrix 2021-01-26 Completed [facility] - 09:39:00 [facility] Shingrix Shingrix 2021-01-26 Completed [facility] - 09:39:00 [facility] Shingrix Shingrix 2021-01-26 Completed [facility] - 09:39:00 [facility] Shingrix Shingrix 2021-01-26 Completed [facility] - 09:39:00 [facility] Shingrix Shingrix 2021-01-26 Completed [facility] - 09:39:00 [facility] Shingrix Shingrix 2021-01-26 Completed [facility] - 09:39:00 [facility] Shingrix Shingrix 2021-01-26 Completed [facility] - 09:39:00 [facility] Shingrix Shingrix 2021-01-26 Completed [facility] - 09:39:00 [facility] Shingrix Shingrix 2021-01-26 Completed [facility] - 09:39:00 [facility] Shingrix Shingrix 2021-01-26 Completed [facility] - 09:39:00 [facility] Shingrix Shingrix 2021-01-26 Completed [facility] - 09:39:00 [facility] Shingrix Shingrix 2021-01-26 Completed [facility] - 09:39:00 [facility] Shingrix Shingrix 2021-01-26 Completed [facility] - 09:39:00 [facility] Shingrix Shingrix 2021-01-26 Completed [facility] - 09:39:00 [facility] Shingrix Shingrix 2021-01-26 Completed [facility] - 09:39:00 [facility] Shingrix Shingrix 2021-01-26 Completed [facility] - 09:39:00 [facility] Shingrix Shingrix 2021-01-26 Completed [facility] - 09:39:00 [facility] Shingrix Shingrix 2021-01-26 Completed [facility] - 09:39:00 [facility] Shingrix Shingrix 2021-01-26 Completed [facility] - 09:39:00 [facility] Shingrix Shingrix 2021-01-26 Completed [facility] - 09:39:00 [facility] Shingrix Shingrix 2021-01-26 Completed [facility] - 09:39:00 [facility] Shingrix Shingrix 2021-01-26 Completed [facility] - 09:39:00 [facility] Shingrix Shingrix 2021-01-26 Completed [facility] - 09:39:00 [facility] Shingrix Shingrix 2021-01-26 Completed [facility] - 09:39:00 [facility] Shingrix Shingrix 2021-01-26 Completed [facility] - 09:39:00 [facility] Shingrix Shingrix 2021-01-26 Completed [facility] - 09:39:00 [facility] Shingrix Shingrix 2021-01-26 Completed [facility] - 09:39:00 [facility] Shingrix Shingrix 2021-01-26 Completed [facility] - 09:39:00 [facility] Shingrix Shingrix 2021-01-26 Completed [facility] - 09:39:00 [facility] Shingrix Shingrix 2021-01-26 Completed [facility] - 09:39:00 [facility] Shingrix Shingrix 2021-01-26 Completed [facility] - 09:39:00 [facility] Shingrix Shingrix 2021-01-26 Completed [facility] - 09:39:00 [facility] Shingrix Shingrix 2021-01-26 Completed [facility] - 09:39:00 [facility] Shingrix Shingrix 2021-01-26 Completed [facility] - 09:39:00 [facility] Shingrix Shingrix 2021-01-26 Completed [facility] - 09:39:00 [facility] Shingrix Shingrix 2021-01-26 Completed [facility] - 09:39:00 [facility] Shingrix Shingrix 2021-01-26 Completed [facility] - 09:39:00 [facility] Shingrix Shingrix 2021-01-26 Completed [facility] - 09:39:00 [facility] Shingrix Shingrix 2021-01-26 Completed [facility] - 09:39:00 [facility] Shingrix Shingrix 2021-01-26 Completed [facility] - 09:39:00 [facility] Shingrix Shingrix 2021-01-26 Completed [facility] - 09:39:00 [facility] Shingrix Shingrix 2021-01-26 Completed [facility] - 09:39:00 [facility] Fluzone Fluzone 2020-12-26 Completed [facility] - 09:38:00 [facility] Fluzone Fluzone 2020-12-26 Completed [facility] - 09:38:00 [facility] Fluzone Fluzone 2020-12-26 Completed [facility] - 09:38:00 [facility] Fluzone Fluzone 2020-12-26 Completed [facility] - 09:38:00 [facility] Fluzone Fluzone 2020-12-26 Completed [facility] - 09:38:00 [facility] Fluzone Fluzone 2020-12-26 Completed [facility] - 09:38:00 [facility] Fluzone Fluzone 2020-12-26 Completed [facility] - 09:38:00 [facility] Fluzone Fluzone 2020-12-26 Completed [facility] - 09:38:00 [facility] Fluzone Fluzone 2020-12-26 Completed [facility] - 09:38:00 [facility] Fluzone Fluzone 2020-12-26 Completed [facility] - 09:38:00 [facility] Fluzone Fluzone 2020-12-26 Completed [facility] - 09:38:00 [facility] Fluzone Fluzone 2020-12-26 Completed [facility] - 09:38:00 [facility] Fluzone Fluzone 2020-12-26 Completed [facility] - 09:38:00 [facility] Fluzone Fluzone 2020-12-26 Completed [facility] - 09:38:00 [facility] Fluzone Fluzone 2020-12-26 Completed [facility] - 09:38:00 [facility] Fluzone Fluzone 2020-12-26 Completed [facility] - 09:38:00 [facility] Fluzone Fluzone 2020-12-26 Completed [facility] - 09:38:00 [facility] Fluzone Fluzone 2020-12-26 Completed [facility] - 09:38:00 [facility] Fluzone Fluzone 2020-12-26 Completed [facility] - 09:38:00 [facility] Fluzone Fluzone 2020-12-26 Completed [facility] - 09:38:00 [facility] Fluzone Fluzone 2020-12-26 Completed [facility] - 09:38:00 [facility] Fluzone Fluzone 2020-12-26 Completed [facility] - 09:38:00 [facility] Fluzone Fluzone 2020-12-26 Completed [facility] - 09:38:00 [facility] Fluzone Fluzone 2020-12-26 Completed [facility] - 09:38:00 [facility] Fluzone Fluzone 2020-12-26 Completed [facility] - 09:38:00 [facility] Fluzone Fluzone 2020-12-26 Completed [facility] - 09:38:00 [facility] Fluzone Fluzone 2020-12-26 Completed [facility] - 09:38:00 [facility] Fluzone Fluzone 2020-12-26 Completed [facility] - 09:38:00 [facility] Fluzone Fluzone 2020-12-26 Completed [facility] - 09:38:00 [facility] Fluzone Fluzone 2020-12-26 Completed [facility] - 09:38:00 [facility] Fluzone Fluzone 2020-12-26 Completed [facility] - 09:38:00 [facility] Fluzone Fluzone 2020-12-26 Completed [facility] - 09:38:00 [facility] Fluzone Fluzone 2020-12-26 Completed [facility] - 09:38:00 [facility] Fluzone Fluzone 2020-12-26 Completed [facility] - 09:38:00 [facility] Fluzone Fluzone 2020-12-26 Completed [facility] - 09:38:00 [facility] Fluzone Fluzone 2020-12-26 Completed [facility] - 09:38:00 [facility] Fluzone Fluzone 2020-12-26 Completed [facility] - 09:38:00 [facility] Fluzone Fluzone 2020-12-26 Completed [facility] - 09:38:00 [facility] Fluzone Fluzone 2020-12-26 Completed [facility] - 09:38:00 [facility] Fluzone Fluzone 2020-12-26 Completed [facility] - 09:38:00 [facility] Fluzone Fluzone 2020-12-26 Completed [facility] - 09:38:00 [facility] Fluzone Fluzone 2020-12-26 Completed [facility] - 09:38:00 [facility] Fluzone Fluzone 2020-12-26 Completed [facility] - 09:38:00 [facility] Fluzone Fluzone 2020-12-26 Completed [facility] - 09:38:00 [facility] Fluzone Fluzone 2020-12-26 Completed [facility] - 09:38:00 [facility] Fluzone Fluzone 2020-12-26 Completed [facility] - 09:38:00 [facility] Fluzone Fluzone 2020-12-26 Completed [facility] - 09:38:00 [facility] Fluzone Fluzone 2020-12-26 Completed [facility] - 09:38:00 [facility] Fluzone Fluzone 2020-12-26 Completed [facility] - 09:38:00 [facility] Fluzone Fluzone 2020-12-26 Completed [facility] - 09:38:00 [facility] Fluzone Fluzone 2020-12-26 Completed [facility] - 09:38:00 [facility] Fluzone Fluzone 2020-12-26 Completed [facility] - 09:38:00 [facility] Fluzone Fluzone 2020-12-26 Completed [facility] - 09:38:00 [facility] Fluzone Fluzone 2020-12-26 Completed [facility] - 09:38:00 [facility] Fluzone Fluzone 2020-12-26 Completed [facility] - 09:38:00 [facility] Fluzone Fluzone 2020-12-26 Completed [facility] - 09:38:00 [facility] Fluzone Fluzone 2020-12-26 Completed [facility] - 09:38:00 [facility] Fluzone Fluzone 2020-12-26 Completed [facility] - 09:38:00 [facility] Fluzone Fluzone 2020-12-26 Completed [facility] - 09:38:00 [facility] Fluzone Fluzone 2020-12-26 Completed [facility] - 09:38:00 [facility] Fluzone Fluzone 2020-12-26 Completed [facility] - 09:38:00 [facility] Fluzone Fluzone 2020-12-26 Completed [facility] - 09:38:00 [facility] Fluzone Fluzone 2020-12-26 Completed [facility] - 09:38:00 [facility] Fluzone Fluzone 2020-12-26 Completed [facility] - 09:38:00 [facility] Fluzone Fluzone 2020-12-26 Completed [facility] - 09:38:00 [facility] Fluzone Fluzone 2020-12-26 Completed [facility] - 09:38:00 [facility] SARS-COV-2 COVID-19 2020-11-15 Completed [facility] VACCINE 00[facility]00:00 [facility] SARS-COV-2 COVID-19 2020-11-15 Completed [facility] VACCINE 00:00:00 [facility] SARS-COV-2 COVID-19 2020-11-15 Completed [facility] MODERNA 12+ YRS 00:00:00 [facility] SARS-COV-2 COVID-19 2020-11-15 Completed [facility] MODERNA 12+ YRS 00:00:00 [facility] SARS-COV-2 COVID-19 2020-11-15 Completed [facility] MODERNA 12+ YRS 00:00:00 [facility] SARS-COV-2 COVID-19 2020-11-15 Completed [facility] MODERNA 12+ YRS 00:00:00 [facility] SARS-COV-2 COVID-19 2020-11-15 Completed [facility] MODERNA 12+ YRS 00:00:00 [place] [facility] SARS-COV-2 COVID-19 2020-06-03 Completed [facility] VACCINE 00:00:00 [facility] SARS-COV-2 COVID-19 2020-06-03 Completed [facility] VACCINE 00:00:00 [facility] SARS-COV-2 COVID-19 2020-06-03 Completed [facility] MODERNA 12+ YRS 00:00:00 [place] [facility] SARS-COV-2 COVID-19 2020-06-03 Completed [facility] MODERNA 12+ YRS 00:00:00 [place] [facility] SARS-COV-2 COVID-19 2020-06-03 Completed [facility] MODERNA 12+ YRS 00:00:00 [place] [facility] SARS-COV-2 COVID-19 2020-06-03 Completed [facility] MODERNA 12+ YRS 00:00:00 [place] [facility] SARS-COV-2 COVID-19 2020-06-03 Completed [facility] MODERNA 12+ YRS 00:00:00 [place] [facility] SARS-COV-2 COVID-19 2020-05-06 Completed [facility] MODERNA VACCINE 00:00:00 [facility] SARS-COV-2 COVID-19 2020-05-06 Completed [facility] MODERNA VACCINE 00:00:00 [facility] SARS-COV-2 COVID-19 2020-05-06 Completed [facility] MODERNA 12+ YRS 00:00:00 [place] [facility] SARS-COV-2 COVID-19 2020-05-06 Completed [facility] MODERNA 12+ YRS 00:00:00 [place] [facility] SARS-COV-2 COVID-19 2020-05-06 Completed [facility] MODERNA 12+ YRS 00:00:00 [place] [facility] SARS-COV-2 COVID-19 2020-05-06 Completed [facility] MODERNA 12+ YRS 00:00:00 [place] [facility] SARS-COV-2 COVID-19 2020-05-06 Completed [facility] MODERNA 12+ YRS 00:00:00 [facility] ical VACCINE Branch Prevnar 13 (PCV13) Prevnar 13 (PCV13) 2020-03-28 Completed [facility] - 15:01:00 [facility] Prevnar 13 (PCV13) Prevnar 13 (PCV13) 2020-03-28 Completed [facility] - 15:01:00 [facility] Prevnar 13 (PCV13) Prevnar 13 (PCV13) 2020-03-28 Completed [facility] - 15:01:00 [facility] Prevnar 13 (PCV13) Prevnar 13 (PCV13) 2020-03-28 Completed [facility] - 15:01:00 [facility] Prevnar 13 (PCV13) Prevnar 13 (PCV13) 2020-03-28 Completed [facility] - 15:01:00 [facility] Prevnar 13 (PCV13) Prevnar 13 (PCV13) 2020-03-28 Completed [facility] - 15:01:00 [facility] Prevnar 13 (PCV13) Prevnar 13 (PCV13) 2020-03-28 Completed [facility] - 15:01:00 [facility] Prevnar 13 (PCV13) Prevnar 13 (PCV13) 2020-03-28 Completed [facility] - 15:01:00 [facility] Prevnar 13 (PCV13) Prevnar 13 (PCV13) 2020-03-28 Completed [facility] - 15:01:00 [facility] Prevnar 13 (PCV13) Prevnar 13 (PCV13) 2020-03-28 Completed [facility] - 15:01:00 [facility] Prevnar 13 (PCV13) Prevnar 13 (PCV13) 2020-03-28 Completed [facility] - 15:01:00 [facility] Prevnar 13 (PCV13) Prevnar 13 (PCV13) 2020-03-28 Completed [facility] - 15:01:00 [facility] Prevnar 13 (PCV13) Prevnar 13 (PCV13) 2020-03-28 Completed [facility] - 15:01:00 [facility] Prevnar 13 (PCV13) Prevnar 13 (PCV13) 2020-03-28 Completed [facility] - 15:01:00 [facility] Prevnar 13 (PCV13) Prevnar 13 (PCV13) 2020-03-28 Completed [facility] - 15:01:00 [facility] Prevnar 13 (PCV13) Prevnar 13 (PCV13) 2020-03-28 Completed [facility] - 15:01:00 [facility] Prevnar 13 (PCV13) Prevnar 13 (PCV13) 2020-03-28 Completed [facility] - 15:01:00 [facility] Prevnar 13 (PCV13) Prevnar 13 (PCV13) 2020-03-28 Completed [facility] - 15:01:00 [facility] Prevnar 13 (PCV13) Prevnar 13 (PCV13) 2020-03-28 Completed [facility] - 15:01:00 [facility] Prevnar 13 (PCV13) Prevnar 13 (PCV13) 2020-03-28 Completed [facility] - 15:01:00 [facility] Prevnar 13 (PCV13) Prevnar 13 (PCV13) 2020-03-28 Completed [facility] - 15:01:00 [facility] Prevnar 13 (PCV13) Prevnar 13 (PCV13) 2020-03-28 Completed [facility] - 15:01:00 [facility] Prevnar 13 (PCV13) Prevnar 13 (PCV13) 2020-03-28 Completed [facility] - 15:01:00 [facility] Prevnar 13 (PCV13) Prevnar 13 (PCV13) 2020-03-28 Completed [facility] - 15:01:00 [facility] Prevnar 13 (PCV13) Prevnar 13 (PCV13) 2020-03-28 Completed [facility] - 15:01:00 [facility] Prevnar 13 (PCV13) Prevnar 13 (PCV13) 2020-03-28 Completed [facility] - 15:01:00 [facility] Prevnar 13 (PCV13) Prevnar 13 (PCV13) 2020-03-28 Completed [facility] - 15:01:00 [facility] Prevnar 13 (PCV13) Prevnar 13 (PCV13) 2020-03-28 Completed [facility] - 15:01:00 [facility] Prevnar 13 (PCV13) Prevnar 13 (PCV13) 2020-03-28 Completed [facility] - 15:01:00 [facility] Prevnar 13 (PCV13) Prevnar 13 (PCV13) 2020-03-28 Completed [facility] - 15:01:00 [facility] Prevnar 13 (PCV13) Prevnar 13 (PCV13) 2020-03-28 Completed [facility] - 15:01:00 [facility] Prevnar 13 (PCV13) Prevnar 13 (PCV13) 2020-03-28 Completed [facility] - 15:01:00 [facility] Prevnar 13 (PCV13) Prevnar 13 (PCV13) 2020-03-28 Completed [facility] - 15:01:00 [facility] Prevnar 13 (PCV13) Prevnar 13 (PCV13) 2020-03-28 Completed [facility] - 15:01:00 [facility] Prevnar 13 (PCV13) Prevnar 13 (PCV13) 2020-03-28 Completed [facility] - 15:01:00 [facility] Prevnar 13 (PCV13) Prevnar 13 (PCV13) 2020-03-28 Completed [facility] - 15:01:00 [facility] Prevnar 13 (PCV13) Prevnar 13 (PCV13) 2020-03-28 Completed [facility] - 15:01:00 [facility] Prevnar 13 (PCV13) Prevnar 13 (PCV13) 2020-03-28 Completed [facility] - 15:01:00 [facility] Prevnar 13 (PCV13) Prevnar 13 (PCV13) 2020-03-28 Completed [facility] - 15:01:00 [facility] Prevnar 13 (PCV13) Prevnar 13 (PCV13) 2020-03-28 Completed [facility] - 15:01:00 [facility] Prevnar 13 (PCV13) Prevnar 13 (PCV13) 2020-03-28 Completed [facility] - 15:01:00 [facility] Prevnar 13 (PCV13) Prevnar 13 (PCV13) 2020-03-28 Completed [facility] - 15:01:00 [facility] Prevnar 13 (PCV13) Prevnar 13 (PCV13) 2020-03-28 Completed [facility] - 15:01:00 [facility] Prevnar 13 (PCV13) Prevnar 13 (PCV13) 2020-03-28 Completed [facility] - 15:01:00 [facility] Prevnar 13 (PCV13) Prevnar 13 (PCV13) 2020-03-28 Completed [facility] - 15:01:00 [facility] Prevnar 13 (PCV13) Prevnar 13 (PCV13) 2020-03-28 Completed [facility] - 15:01:00 [facility] Prevnar 13 (PCV13) Prevnar 13 (PCV13) 2020-03-28 Completed [facility] - 15:01:00 [facility] Prevnar 13 (PCV13) Prevnar 13 (PCV13) 2020-03-28 Completed [facility] - 15:01:00 [facility] Prevnar 13 (PCV13) Prevnar 13 (PCV13) 2020-03-28 Completed [facility] - 15:01:00 [facility] Prevnar 13 (PCV13) Prevnar 13 (PCV13) 2020-03-28 Completed [facility] - 15:01:00 [facility] Prevnar 13 (PCV13) Prevnar 13 (PCV13) 2020-03-28 Completed [facility] - 15:01:00 [facility] Prevnar 13 (PCV13) Prevnar 13 (PCV13) 2020-03-28 Completed [facility] - 15:01:00 [facility] Prevnar 13 (PCV13) Prevnar 13 (PCV13) 2020-03-28 Completed [facility] - 15:01:00 [facility] Prevnar 13 (PCV13) Prevnar 13 (PCV13) 2020-03-28 Completed [facility] - 15:01:00 [facility] Prevnar 13 (PCV13) Prevnar 13 (PCV13) 2020-03-28 Completed [facility] - 15:01:00 [facility] Prevnar 13 (PCV13) Prevnar 13 (PCV13) 2020-03-28 Completed [facility] - 15:01:00 [facility] Prevnar 13 (PCV13) Prevnar 13 (PCV13) 2020-03-28 Completed [facility] - 15:01:00 [facility] Prevnar 13 (PCV13) Prevnar 13 (PCV13) 2020-03-28 Completed [facility] - 15:01:00 [facility] Prevnar 13 (PCV13) Prevnar 13 (PCV13) 2020-03-28 Completed [facility] - 15:01:00 [facility] Prevnar 13 (PCV13) Prevnar 13 (PCV13) 2020-03-28 Completed [facility] - 15:01:00 [facility] Prevnar 13 (PCV13) Prevnar 13 (PCV13) 2020-03-28 Completed [facility] - 15:01:00 [facility] Prevnar 13 (PCV13) Prevnar 13 (PCV13) 2020-03-28 Completed [facility] - 15:01:00 [facility] Prevnar 13 (PCV13) Prevnar 13 (PCV13) 2020-03-28 Completed [facility] - 15:01:00 [facility] Prevnar 13 (PCV13) Prevnar 13 (PCV13) 2020-03-28 Completed [facility] - 15:01:00 [facility] Prevnar 13 (PCV13) Prevnar 13 (PCV13) 2020-03-28 Completed [facility] - 15:01:00 [facility] Prevnar 13 (PCV13) Prevnar 13 (PCV13) 2020-03-28 Completed [facility] - 15:01:00 [facility] Prevnar 13 (PCV13) Prevnar 13 (PCV13) 2020-03-28 Completed [facility] - 15:01:00 [facility] Influenza High Dose 2020-01-11 Completed [facility] [place] 00:00:00 [facility] Influenza High Dose 2020-01-11 Completed [facility] 00:00:00 [facility] Influenza High Dose 2020-01-11 Completed [facility] 00:00:00 [facility] Influenza High Dose 2020-01-11 Completed [facility] 00:00:00 [facility] Influenza High Dose 2020-01-11 Completed [facility] 00:00:00 [facility] Influenza High Dose 2020-01-11 Completed [facility] [place] 00:00:00 [facility] Influenza High Dose 2020-01-11 Completed [facility] [place] 00:00:00 [facility] Influenza High Dose 2019-01-20 Completed Unive rsity of 00:00:00 [facility] Pneumococcal 2019-01-20 Completed University o f Polysaccharide, 00:00:00 [place] [facility] PPSV23 (PNEUMOVAX) Branch Influenza High Dose 2019-01-20 Completed Unive rsity of 00:00:00 [facility] Pneumococcal 2019-01-20 Completed University o f Polysaccharide, 00:00:00 [place] [facility] PPSV23 (PNEUMOVAX) Branch Influenza High Dose 2019-01-20 Completed Unive rsity of 00:00:00 [facility] Pneumococcal 2019-01-20 Completed University o f Polysaccharide, 00:00:00 [place] [facility] PPSV23 (PNEUMOVAX) Branch Influenza High Dose 2019-01-20 Completed Unive rsity of 00:00:00 [facility] Pneumococcal 2019-01-20 Completed University o f Polysaccharide, 00:00:00 [place] [facility] PPSV23 (PNEUMOVAX) Branch Influenza High Dose 2019-01-20 Completed Unive rsity of 00:00:00 [facility] Pneumococcal 2019-01-20 Completed University o f Polysaccharide, 00:00:00 [place] [facility] PPSV23 (PNEUMOVAX) Branch Influenza High Dose 2019-01-20 Completed Unive rsity of 00:00:00 [facility] Pneumococcal 2019-01-20 Completed University o f Polysaccharide, 00:00:00 [place] [facility] PPSV23 (PNEUMOVAX) Branch Influenza High Dose 2019-01-20 Completed Unive rsity of 00:00:00 [facility] Pneumococcal 2019-01-20 Completed University o f Polysaccharide, [...] Time Observation Value Comments Source Systolic blood 2022-10-04 01:00:00 141 mm[Hg] Univer sity of pressure [facility] Diastolic blood 2022-10-04 01:00:00 60 mm[Hg] Unive rsity of pressure [facility] Heart rate 2022-10-04 01:00:00 88 /min [facility] Respiratory rate 2022-10-04 01:00:00 17 /min Univ ersity of [facility] Oxygen saturation in 2022-10-04 01:00:00 92 /min University of Arterial blood by [facility] Pulse oximetry Branch Body temperature 2022-10-03 22:46:00 37.28 Tamara Univ ersity [facility] Body height 2022-10-03 22:46:00 157.5 cm Universi ty of [facility] Body weight 2022-10-03 22:46:00 63.504 kg Universi ty of [facility] BMI 2022-10-03 22:46:00 25.61 kg/m2 [facility] Systolic blood 2022-07-31 03:01:00 122 mm[Hg] Univer sity of pressure [facility] Diastolic blood 2022-07-31 03:01:00 44 mm[Hg] Unive rsity of pressure [facility] Heart rate 2022-07-31 03:01:00 73 /min [facility] Respiratory rate 2022-07-31 03:01:00 17 /min Univ ersity of [facility] Oxygen saturation in 2022-07-31 03:01:00 92 /min University of Arterial blood by [facility] Pulse oximetry Branch Body temperature 2022-07-30 23:34:00 37.44 Tamara [facility] ersity of [facility] Body height 2022-07-30 23:34:00 152.4 cm [facility] Body weight 2022-07-30 23:34:00 64.411 kg Universi ty of [facility] BMI 2022-07-30 23:34:00 27.73 kg/m2 Universi ty of [facility] height 2022-04-30 14:00:00 63.00 [in_i] Common S pirit - [facility] weight 2022-04-30 14:00:00 139 [lb_av] Common S psychiatricit [facility] temperature 2022-04-30 14:00:00 97.3 [degF] Common S pirit - [facility] bmi 2022-04-30 14:00:00 24.62 kg/m2 Common S [facility] oximetry 2022-04-30 14:00:00 95 % [facility] respiratory rate 2022-04-30 14:00:00 16 /min Comm on [facility] blood pressure 2022-04-30 14:00:00 132 mm[Hg] Common [facility] - systolic [facility] blood pressure 2022-04-30 14:00:00 76 mm[Hg] Common [facility] - diastolic [facility] height 2022-01-16 11:30:00 63.00 [in_i] Common [facility] weight 2022-01-16 11:30:00 134 [lb_av] [facility] bmi 2022-01-16 11:30:00 23.73 kg/m2 Common [facility] blood pressure 2022-01-16 11:30:00 115 mm[Hg] Common [facility] - systolic [facility] blood pressure 2022-01-16 11:30:00 65 mm[Hg] Common [facility] - diastolic [facility] height 2021-12-30 13:50:00 63.00 [in_i] [facility] weight 2021-12-30 13:50:00 135 [lb_av] Common [facility] temperature 2021-12-30 13:50:00 98.4 [degF] Common S [facility] bmi 2021-12-30 13:50:00 23.91 kg/m2 [facility] oximetry 2021-12-30 13:50:00 93 % Common [facility] respiratory rate 2021-12-30 13:50:00 16 /min Comm on [facility] blood pressure 2021-12-30 13:50:00 136 mm[Hg] Common [facility] - systolic [facility] blood pressure 2021-12-30 13:50:00 60 mm[Hg] Common [facility] diastolic [facility] height 2021-12-17 15:20:00 63.00 [in_i] Common [facility] weight 2021-12-17 15:20:00 137.6 [lb_av] [facility] bmi 2021-12-17 15:20:00 24.37 kg/m2 Common S [facility] height 2021-11-10 16:20:00 63.00 [in_i] Common S [facility] weight 2021-11-10 16:20:00 137.6 [lb_av] [facility] bmi 2021-11-10 16:20:00 24.37 kg/m2 [facility] height 2021-10-08 09:30:00 63.00 [in_i] [facility] weight 2021-10-08 09:30:00 137.6 [lb_av] [facility] bmi 2021-10-08 09:30:00 24.37 kg/m2 [facility] height 2021-09-24 10:20:00 63.00 [in_i] [facility] weight 2021-09-24 10:20:00 137.6 [lb_av] [facility] temperature 2021-09-24 10:20:00 97.4 [degF] [facility] bmi 2021-09-24 10:20:00 24.37 kg/m2 [facility] oximetry 2021-09-24 10:20:00 97 % [facility] respiratory rate 2021-09-24 10:20:00 17 /min Comm on [facility] blood pressure 2021-09-24 10:20:00 132 mm[Hg] Common [facility] systolic [facility] blood pressure 2021-09-24 10:20:00 70 mm[Hg] [facility] - diastolic [facility] height 2021-08-20 13:50:00 63.00 [in_i] Common S [facility] weight 2021-08-20 13:50:00 143.3 [lb_av] Common [facility] temperature 2021-08-20 13:50:00 98.1 [degF] Common S pirit [facility] bmi 2021-08-20 13:50:00 25.38 kg/m2 [facility] 2021-08-20 13:50:00 97 % [facility] rate 2021-08-20 13:50:00 17 /min Comm on [facility] blood pressure 2021-08-20 13:50:00 138 mm[Hg] Common [facility] - systolic [facility] blood pressure 2021-08-20 13:50:00 61 mm[Hg] Common [facility] - diastolic [facility] height 2021-08-20 14:00:00 63.00 [in_i] Common [facility] weight 2021-08-20 14:00:00 143.3 [lb_av] [facility] temperature 2021-08-20 14:00:00 98.1 [degF] Common [facility] bmi 2021-08-20 14:00:00 25.38 kg/m2 Common S pirit [facility] oximetry 2021-08-20 14:00:00 97 % [facility] 2021-08-20 14:00:00 17 /min Comm on [facility] blood pressure 2021-08-20 14:00:00 138 mm[Hg] Common [facility] - systolic [facility] blood pressure 2021-08-20 14:00:00 61 mm[Hg] Common [facility] - diastolic [facility] Systolic blood 2021-08-04 05:00:00 140 mm[Hg] Fer johnson [facility] Diastolic blood 2021-08-04 05:00:00 47 mm[Hg] Unive rsity of pressure [facility] Heart rate 2021-08-04 05:00:00 72 /min [facility] Respiratory rate 2021-08-04 05:00:00 15 /min [facility] Oxygen saturation in 2021-08-04 05:00:00 97 /min [facility] Arterial blood by [facility] Pulse oximetry Branch Body temperature 2021-08-04 03:12:00 37 Tamara [facility] Body height 2021-08-04 03:12:00 157.5 cm [facility] Body weight 2021-08-04 03:12:00 64.411 kg [facility] BMI 2021-08-04 03:12:00 25.97 kg/m2 [facility] height 2021-07-30 08:40:00 63.00 [in_i] [facility] weight 2021-07-30 08:40:00 145 [lb_av] [facility] temperature 2021-07-30 08:40:00 97.5 [degF] [facility] bmi 2021-07-30 08:40:00 25.68 kg/m2 [facility] blood pressure 2021-07-30 08:40:00 132 mm[Hg] [facility] - systolic [facility] blood pressure 2021-07-30 08:40:00 76 mm[Hg] [facility] - diastolic [facility] height 2021-05-28 13:00:00 63.00 [in_i] [facility] weight 2021-05-28 13:00:00 148 [lb_av] [facility] bmi 2021-05-28 13:00:00 26.21 kg/m2 [facility] height 2021-04-11 11:00:00 63.00 [in_i] [facility] weight 2021-04-11 11:00:00 148 [lb_av] [facility] temperature 2021-04-11 11:00:00 98 [degF] [facility] bmi 2021-04-11 11:00:00 26.21 kg/m2 [facility] height 2021-03-14 10:00:00 63.00 [in_i] [facility] weight 2021-03-14 10:00:00 148.1 [lb_av] [facility] temperature 2021-03-14 10:00:00 97.3 [degF] [facility] bmi 2021-03-14 10:00:00 26.23 kg/m2 [facility] oximetry 2021-03-14 10:00:00 97 % [facility] respiratory rate 2021-03-14 10:00:00 16 /min Comm on [facility] blood pressure 2021-03-14 10:00:00 135 mm[Hg] Common [facility] - systolic [facility] blood pressure 2021-03-14 10:00:00 62 mm[Hg] [facility] diastolic [facility] Systolic blood 2021-03-11 22:37:00 113 mm[Hg] Univer sity of pressure [facility] Diastolic blood 2021-03-11 22:37:00 47 mm[Hg] Unive rsity of pressure [facility] Heart rate 2021-03-11 22:37:00 82 /min [facility] Body height 2021-03-11 22:37:00 160 cm [facility] Body weight 2021-03-11 22:37:00 65.772 kg [facility] BMI 2021-03-11 22:37:00 25.69 kg/m2 [facility] height 2020-12-11 14:40:00 63.00 [in_i] [facility] weight 2020-12-11 14:40:00 141.2 [lb_av] [facility] temperature 2020-12-11 14:40:00 97.4 [degF] [facility] bmi 2020-12-11 14:40:00 25.01 kg/m2 [facility] oximetry 2020-12-11 14:40:00 96 % [facility] respiratory rate 2020-12-11 14:40:00 16 /min Comm on [facility] blood pressure 2020-12-11 14:40:00 132 mm[Hg] Common [facility] - systolic [facility] blood pressure 2020-12-11 14:40:00 61 mm[Hg] [facility] - diastolic [facility] Systolic blood 2022-01-26 11:00:00 90 mm[Hg] [facility] Diastolic blood 2022-01-26 11:00:00 50 mm[Hg] [facility] Heart rate 2022-01-26 11:00:00 82 /min [facility] Body temperature 2022-01-26 11:00:00 36.44 Tamara [facility] Respiratory rate 2022-01-26 11:00:00 18 /min [facility] Oxygen saturation in 2022-01-26 11:00:00 94 /min [facility] Arterial blood by Medical Ce nter Pulse oximetry Weight 2016-10-01 15:38:00 [facility] [place] BMI Calculated 2016-10-01 15:38:00 Rosaori al Nader Height 2016-10-01 15:38:00 160.02 cm [facility] Nader Respitory Rate 2016-10-01 15:38:00 Penny al Nader Heart Rate 2016-10-01 15:38:00 Liliya Nader Systolic (mm Hg) 2016-10-01 15:38:00 Jim Doe Diastolic (mm Hg) 2016-10-01 15:38:00 [facility] Height 2016-07-02 15:24:00 160.02 cm [facility] Nader Respitory Rate 2016-07-02 15:24:00 Rosaori al Nader Heart Rate 2016-07-02 15:24:00 [facility] BMI Calculated 2016-07-02 15:24:00 Penny Garcia Weight 2016-07-02 15:24:00 Liliya Doe Systolic (mm Hg) 2016-07-02 15:24:00 Jim Doe Diastolic (mm Hg) 2016-07-02 15:24:00 Rosa Doe Procedures Procedure Date / Time Performing Clinician Source Performed CREATINE KINASE 2022-10-03 23:59:00 Kirit Contreras Stephany [facility] MAGNESIUM 2022-10-03 23:59:00 Kirit Contreras Stephany [facility] COMP. METABOLIC PANEL 2022-10-03 23:59:00 Kirit Contreras Stephany [facility] ([id number]) [facility] CBC WITH DIFF 2022-10-03 23:59:00 Diane, K [facility] AUTHORIZATION FOR RELEASE 2022-08-28 05:01:00 Doctor Unassigned, [facility] URINALYSIS 2022-07-31 01:36:00 [facility] XR CHEST 1 VW 2022-07-31 00:03:29 [facility] COMP. METABOLIC PANEL 2022-07-30 23:57:00 Dawson Beckford [facility] ([id number]) [facility] SEDIMENTATION RATE 2022-07-30 23:57:[address] [facility] CBC WITH DIFF 2022-07-30 23:57:00 Chun Dawson [facility] RAPID INFLUENZA A/B 2022-07-30 23:57:00 Dawson [facility] COVID-19 (ID NOW RAPID 2022-07-30 23:57:00 Dawson Beckford [facility] TESTING) Medical [place] COLONOSCOPY 2022-02-16 09:30:00 Pearl Brooks [facility] PREPARE RBC 2022-01-26 23:54:00 [facility] ANTIBODY IDENTIFICATION 2022-01-26 16:44[facility] POCT-GLUCOSE METER 2022-01-26 10:35:00 Asuncion, [facility] POCT-GLUCOSE METER 2022-01-26 09:28:00 Asuncion, [facility] REPORT OF PROCEDURE - 2022-01-26 09:[facility] ENTEROSCOPY, WITH 2022-01-26 08:15:00 [facility] HEMORRHAGE CONTROL [facility] CBC (HEMOGRAM ONLY) 2022-01-26 04:29:00 Asuncion [facility] BASIC METABOLIC PANEL 2022-01-26 04:29:00 Asuncion, [facility] MAGNESIUM 2022-01-26 04:29:00 Asuncion, [facility] POCT-GLUCOSE METER 2022-01-26 04:17:00 Asuncion, [facility] POCT-GLUCOSE METER 2022-01-25 22:12:00 Asuncion, [facility] ECG 12-LEAD 2022-01-25 21:31:02 Unknown, Hl7 [facility] ECG 12-LEAD 2022-01-25 21:30:43 Gricel Little [facility] ECG 12-LEAD 2022-01-25 21:30:43 Unknown, Hl7 [facility] ECG 12-LEAD 2022-01-25 21:30:14 Unknown, Hl7 [facility] XR CHEST 1 VIEW PORTABLE 2022-01-25 17:37:00 Asuncion, [facility] / BEDSIDE Center POCT-GLUCOSE METER 2022-01-25 16:39:00 Asuncion, [facility] SARS-COV2/RT-PCR ([facility] & 2022-01-25 12:33:00 OnyiAlfonso quinonez [facility] REF LABS) [facility] POCT-GLUCOSE METER 2022-01-25 12:00:00 Asuncion, [facility] TRANSFUSE LEUKO-REDUCED 2022-01-25 11:00:00 [facility] RED BLOOD CELLS Center HEMOGLOBIN A1C 2022-01-25 09:26:00 Asuncion lita [facility] POCT-GLUCOSE METER 2022-01-25 05:42:00 Ayaan Christian [facility] BLOOD BANK EXTRA PINK 2022-01-25 05:41:00 [facility] W/PLT COUNT & AUTO 2022-01-25 03:17:00 [facility] DIFFERENTIAL Center COMPREHENSIVE METABOLIC 2022-01-25 03:17:00 [facility] PANEL Center IRON, TIBC, % SAT. 2022-01-25 03:17:00 [facility] (WITHOUT FERRITIN) [place] FERRITIN 2022-01-25 03:17:00 [facility] PT/APTT 2022-01-25 03:17:00 [facility] TYPE AND SCREEN, 2022-01-25 03:17:00 [facility] AUTOMATED Center CBC W/PLT COUNT & AUTO 2022-01-25 03:17:00 [facility] EKG-SCANNED 2022-01-25 00:00:00 Provider, Default [facility] Scanning [place] PERMANENT LAB REPORT - 2022-01-16 00:00:00 Provider, Default [facility] SCAN Scanning Center EKG-SCANNED 2022-01-16 00:00:00 Provider, Default [facility] ENTEROSCOPY 2022-01-13 11:01:00 Darling Moran [facility] POCT-GLUCOSE METER 2022-01-13 09:58:00 [facility] POCT-GLUCOSE METER 2022-01-13 06:34:00 [facility] POCT-GLUCOSE METER 2022-01-12 21:20:00 [facility] POCT-GLUCOSE METER 2022-01-12 15:24:00 [facility] ABORH, MANUAL 2022-01-12 12:05:00 Jo Romero [facility] POCT-GLUCOSE METER 2022-01-12 11:28:00 [facility] TYPE AND SCREEN, 2022-01-12 11:00:00 Maryuri Gar[facility] POCT-GLUCOSE METER 2022-01-12 06:34:00 [facility] CT ABDOMEN PELVIS WO 2021-08-04 03:59:53 Morales Fitch [facility] LIPASE 2021-08-04 03:39:00 [facility]ales [facility] COMP. METABOLIC PANEL 2021-08-04 03:39:00 Morales Fitch [facility] ([id number]) [facility] CBC WITH DIFF 2021-08-04 03:39:00 [facility]ales [facility] URINALYSIS 2021-08-04 03:39:00 [facility]ales [facility] NOTICE OF PRIVACY 2021-08-04 02:24:14 Doctor Unassigned, [facility] PRACTICES [place] [facility] CONSENT/REFUSAL FOR 2021-08-04 02:22:02 Doctor Unassigned, [facility] DIAGNOSIS AND TREATMENT [place] [facility] [place] Colonoscopy [facility] Endoscopy of GI tract [facility] Plan of Care Planned Activity Planned Date [...] RISK Medical C enter SCREENING] Future Scheduled 2021 INFLUENZA VACCINE (#1) [facility] 00:[facility]:00 [code = INFLUENZA Medical Ce nter VACCINE (#1)] Future Scheduled 2021 INFLUENZA VACCINE (#1) [facility] 00:00:00 [code = INFLUENZA Medical Ce nter VACCINE (#1)] Future Scheduled 2021 INFLUENZA VACCINE (#1) [facility] 00:00:00 [code = INFLUENZA Medical Ce nter VACCINE (#1)] Future Scheduled 2021 INFLUENZA VACCINE (#1) [facility] 00:00:00 [code = INFLUENZA Medical Ce nter VACCINE (#1)] Future Scheduled 2021-03-29 [place] RISK [...] SCREENING] Future Scheduled 2021-03-17 COVID-19 VACCINE (4 - [facility]00 [facility] series) [code = COVID-19 VACCINE (4 - [facility] for [facility] series)] Future Scheduled 2021-03-17 COVID-19 VACCINE (4 - [facility] 00[facility]00:00 [facility] series) [code = COVID-19 VACCINE (4 - [facility]oster for [facility] series)] Future Scheduled 2021-03-17 COVID-19 VACCINE (4 - [facility] 00[facility]00:00 [facility] series) [code = COVID-19 VACCINE (4 - Booster for [facility] series)] Future Scheduled 2021-03-17 COVID-19 VACCINE (4 - [facility] 00:00:00 [facility] series) [code = COVID-19 VACCINE (4 - Booster for [facility] series)] Future Scheduled 2021-03-17 COVID-19 VACCINE (4 - [facility] 00:00:00 [facility] series) [code = COVID-19 VACCINE (4 - Booster for [facility] series)] Future Scheduled 2021-03-17 COVID-19 VACCINE (4 - [facility] 00:00:00 [facility] series) [code = COVID-19 VACCINE (4 - Booster for [facility] series)] Future Scheduled 2021-01-24 DTAP/TDAP/TD VACCINES [facility] 00:00:00 (2 - Td or Tdap) [code Medic al Center = DTAP/TDAP/TD VACCINES (2 - Td or Tdap)] Future Scheduled 2021-01-24 DTAP/TDAP/TD VACCINES [facility] 00:00:00 (2 - Td or Tdap) [code Medic al Center = DTAP/TDAP/TD VACCINES (2 - Td or Tdap)] Future Scheduled 2021-01-24 DTAP/TDAP/TD VACCINES [facility] 00:00:00 (2 - Td or Tdap) [code Medic al Center = DTAP/TDAP/TD VACCINES (2 - Td or Tdap)] Future Scheduled 2021-01-10 COVID-19 VACCINE (4 - [facility] 00[facility]:00 [facility] series) [code = COVID-19 VACCINE (4 - Booster for [facility] series)] Future Scheduled 2020-01-21 PNEUMOCOCCAL 65+ YRS ([address] [facility] 00:00:00 - PCV) [code = Medical Cente r PNEUMOCOCCAL 65+ YRS (2 - PCV)] Future Scheduled 2020-01-21 PNEUMOCOCCAL 65+ YRS ([address] [facility] 00:00:00 - PCV) [code = Medical Cente r PNEUMOCOCCAL 65+ YRS (2 - PCV)] Future Scheduled 2020-01-21 PNEUMOCOCCAL 65+ YRS ([address] [facility] 00:00:00 - PCV) [code = Medical Cente r PNEUMOCOCCAL 65+ YRS (2 - PCV)] Future Scheduled 2020-01-21 PNEUMOCOCCAL 65+ YRS ([address] [facility] 00:00:00 - PCV) [code = Medical Cente r PNEUMOCOCCAL 65+ YRS (2 - PCV)] Future Scheduled 2017-12-10 Screening for malignant [facility] 00:00:00 neoplasm of colon Medical Ce nter (procedure) [code = 426585091] Future Scheduled 2017-12-10 Screening for malignant [facility] 00:00:00 neoplasm of colon Medical Ce nter (procedure) [code = 276207405] Future Scheduled 2017-12-10 Screening for malignant [facility] 00:00:00 neoplasm of colon Medical Ce nter (procedure) [code = 180953094] Future Scheduled 2017-12-10 Screening for malignant [facility] 00:00:00 neoplasm of colon Medical Ce nter (procedure) [code = 326755253] Future Scheduled 2017-12-10 Screening for malignant [facility] 00:00:00 neoplasm of colon Medical Ce nter (procedure) [code = 237546837] Future Scheduled 2017-12-10 Screening for malignant [facility] 00:00:00 neoplasm of colon Medical Ce nter (procedure) [code = 109472443] Future Scheduled 2017-12-10 Screening for malignant [facility] 00:00:00 neoplasm of colon Medical Ce nter (procedure) [code = 374455214] Future Scheduled 2017-12-10 Screening for malignant [facility] 00:00:00 neoplasm of colon Medical Ce nter (procedure) [code = 999488093] Future Scheduled 2017-12-10 Screening for malignant [facility] 00:00:00 neoplasm of colon Medical Ce nter (procedure) [code = 790353067] Future Scheduled 2017-12-10 Screening for malignant [facility] 00:00:00 neoplasm of colon Medical Ce nter (procedure) [code = 059939580] Future Scheduled 2017-12-10 Screening for malignant [facility] 00:00:00 neoplasm of colon Medical Ce nter (procedure) [code = 346132701] Future Scheduled 2017-12-10 Screening for malignant [facility] 00:00:00 neoplasm of colon Medical Ce nter (procedure) [code = 446439386] Future Scheduled 2017-12-10 Screening for malignant [facility] 00:00:00 neoplasm of colon Medical Ce nter (procedure) [code = 989922814] Future Scheduled 2017-12-10 Screening for malignant [facility] 00:00:00 neoplasm of colon Medical Ce nter (procedure) [code = 853110543] Future Scheduled 2017-06-[address] 00:[facility]:00 measurement (procedure) [facility] [code = 74095927] Future Scheduled 2017-06-[address] [facility] 00:00:00 measurement (procedure) [facility] [code = 44262787] Future Scheduled 2017-06-[address] [facility] 00:00:00 measurement (procedure) [facility] [code = 21053405] Future Scheduled 2017-06-[address] [facility] 00:00:00 measurement (procedure) [facility] [code = 18712562] Future Scheduled 2017-06-[address] [facility] 00:00:00 measurement (procedure) [facility] [code = 16417309] Future Scheduled 2017-06-[address] [facility] 00:00:00 measurement (procedure) [facility] [code = 65213526] Future Scheduled 2017-06-[address] [facility] 00:00:00 measurement (procedure) [facility] [code = 80349693] Future Scheduled 2012-10-[address] [facility] 00:00:00 WELLNESS (YEAR 2 or Medical Center FIRST YEAR if no IPPE) [code = MEDICARE ANNUAL WELLNESS (YEAR 2 or FIRST YEAR if no IPPE)] Future Scheduled 1996 SHINGLES VACCINES ([address] [facility] 00:00:00 2) [code = SHINGLES Medical Center VACCINES (1 of 2)] Future Scheduled 1996 SHINGLES VACCINES ([address] [facility] 00:00:00 2) [code = SHINGLES Medical Center VACCINES (1 of 2)] Future Scheduled 1996 SHINGLES VACCINES ([address] [facility] 00:00:00 2) [code = SHINGLES Medical Center VACCINES (1 of 2)] Future Scheduled 1996 SHINGLES VACCINES ([address] [facility] 00:00:00 2) [code = SHINGLES Medical Center VACCINES (1 of 2)] Future Scheduled 1996 SHINGLES VACCINES ([address] [facility] 00:00:00 2) [code = SHINGLES Medical Center VACCINES (1 of 2)] Future Scheduled 1996 SHINGLES VACCINES ([address] [facility] 00:00:00 2) [code = SHINGLES Medical Center VACCINES (1 of 2)] Future Scheduled 1996 SHINGLES VACCINES ([address] [facility] 00:00:00 2) [code = SHINGLES Medical Center VACCINES (1 of 2)] Future Scheduled 1965 DTAP/TDAP/TD [facility]ACCINES [facility] 00:00:00 (1 - Tdap) [code = Medical C enter DTAP/TDAP/TD VACCINES (1 - Tdap)] Future Scheduled 1965 DTAP/TDAP/TD [facility]ACCINES [facility] 00:00:00 (1 - Tdap) [code = Medical C enter DTAP/TDAP/TD VACCINES (1 - Tdap)] Future Scheduled 1965 DTAP/TDAP/TD [facility]ACCINES [facility] 00:00:00 (1 - Tdap) [code = Medical C enter DTAP/TDAP/TD VACCINES (1 - Tdap)] Future Scheduled 1965 DTAP/TDAP/TD [facility]ACCINES [facility] 00:00:00 (1 - Tdap) [code = Medical C enter DTAP/TDAP/TD VACCINES (1 - Tdap)] Future Scheduled 1964 HEPATITIS C [facility]CRE[facility]ING [facility] [code = HEPATITIS C Medical Center SCREENING] Future Scheduled 1964 HEPATITIS C [facility]ING [facility] [code = HEPATITIS C Medical Center SCREENING] Future Scheduled 1964 HEPATITIS C [facility]ING [facility] 00:00[facility]00 [code = HEPATITIS C Medical Center SCREENING] Future Scheduled 1964 HEPATITIS C [facility]ING [facility]:00[facility] [code = HEPATITIS C Medical Center SCREENING] Future Scheduled 1964 HEPATITIS C [facility]ING [facility] 00:00[facility]00 [code = HEPATITIS C Medical Center SCREENING] Future Scheduled 1964 HEPATITIS C [facility]ING [facility] 00:00[facility]00 [code = HEPATITIS C Medical Center SCREENING] Future Scheduled 1964 HEPATITIS C [facility]ING [facility] [code = HEPATITIS C Medical Center SCREENING] Future Scheduled 1956 DIABETIC EYE EXAM [code [facility] 00:00:00 = DIABETIC EYE EXAM] Medical Center Future Scheduled [address] [facility] 00:[facility] examination Medical Center (regime/therapy) [code = 663847310] Future Scheduled 1956 Urine screening for [facility] 00:00:00 protein (procedure) Medical Center [code = 338805338] Future Scheduled 1956 DIABETIC EYE EXAM [code [facility] 00:00:00 = DIABETIC EYE EXAM] Medical Center Future Scheduled [address] [facility] 00:00:00 examination Medical Center (regime/therapy) [code = 449268563] Future Scheduled 1956 Urine screening for [facility] 00:00:00 protein (procedure) Medical Center [code = 833208374] Future Scheduled 1956 DIABETIC EYE EXAM [code [facility] 00:00:00 = DIABETIC EYE EXAM] Medical Center Future Scheduled [address] [facility] 00:00:00 examination Medical Center (regime/therapy) [code = 707836801] Future Scheduled 1956 Urine screening for [facility] 00:00:00 protein (procedure) Medical Center [code = 470367483] Future Scheduled 1956 DIABETIC EYE EXAM [code [facility] 00:00:00 = DIABETIC EYE EXAM] Medical Center Future Scheduled [address] [facility] 00:00:00 examination Medical Center (regime/therapy) [code = 042617797] Future Scheduled 1956 Urine screening for [facility] 00:00:00 protein (procedure) Medical Center [code = 709147992] Future Scheduled 1956 DIABETIC EYE EXAM [code [facility] 00:00:00 = DIABETIC EYE EXAM] Medical Center Future Scheduled [address] [facility] 00:00:00 examination Medical Center (regime/therapy) [code = 007104208] Future Scheduled 1956 Urine screening for [facility] 00:00:00 protein (procedure) Medical Center [code = 756366427] Future Scheduled 1956 DIABETIC EYE EXAM [code [facility] 00:00:00 = DIABETIC EYE EXAM] Medical Center Future Scheduled [address] [facility] 00:00:00 examination Medical Center (regime/therapy) [code = 368608004] Future Scheduled 1956 Urine screening for [facility] 00:00:00 protein (procedure) Medical Center [code = 521996311] Future Scheduled 1956 DIABETIC EYE EXAM [code [facility] 00:00:00 = DIABETIC EYE EXAM] Medical Center Future Scheduled [address] [facility] 00:00:00 examination Medical Center (regime/therapy) [code = 190394252] Future Scheduled 1956 Urine screening for [facility] 00:00:00 protein (procedure) Medical Center [code = 695147139] Future Scheduled 1946 CT Colonography (combo) [facility] 00:00:00 [code = CT Colonography [facility] (combo)] Future Scheduled 1946 Screening for malignant [facility] 00:00:00 neoplasm of colon Medical Ce nter (procedure) [code = 271396029] Future Scheduled 1946 DXA SCAN [code = DXA [facility] 00:00:00 SCAN] Medical Center Future Scheduled 1946 Screening for malignant [facility] 00:00:00 neoplasm of colon Medical Ce nter (procedure) [code = 248099409] Future Scheduled 1946 Sigmoidoscopy [code = [facility] 00:00:00 Sigmoidoscopy] [facility] Future Scheduled 1946 CT Colonography (combo) [facility] 00:00:00 [code = CT Colonography [facility] (combo)] Future Scheduled 1946 Screening for malignant [facility] 00:00:00 neoplasm of colon Medical Ce nter (procedure) [code = 084190677] Future Scheduled 1946 DXA SCAN [code = DXA [facility] 00:00:00 SCAN] [facility] Future Scheduled 1946 Screening for malignant [facility] 00:00:00 neoplasm of colon Medical Ce nter (procedure) [code = 571787424] Future Scheduled 1946 Sigmoidoscopy [code = [facility] 00:00:00 Sigmoidoscopy] [facility] Future Scheduled 1946 CT Colonography (combo) [facility] 00:00:00 [code = CT Colonography [facility] (combo)] Future Scheduled 1946 Screening for malignant [facility] 00:00:00 neoplasm of colon Medical Ce nter (procedure) [code = 465323910] Future Scheduled 1946 DXA SCAN [code = DXA [facility] 00:00:00 SCAN] [facility] Future Scheduled 1946 Screening for malignant [facility] 00:00:00 neoplasm of colon Medical Ce nter (procedure) [code = 500530068] Future Scheduled 1946 Sigmoidoscopy [code = [facility] 00:00:00 Sigmoidoscopy] [facility] Future Scheduled 1946 CT Colonography (combo) [facility] 00:00:00 [code = CT Colonography [facility] (combo)] Future Scheduled 1946 Screening for malignant [facility] 00:00:00 neoplasm of colon Medical Ce nter (procedure) [code = 355252229] Future Scheduled 1946 DXA SCAN [code = DXA [facility] 00:00:00 SCAN] [facility] Future Scheduled 1946 Screening for malignant [facility] 00:00:00 neoplasm of colon Medical Ce nter (procedure) [code = 658054546] Future Scheduled 1946 Sigmoidoscopy [code = [facility] 00:00:00 Sigmoidoscopy] [facility] Future Scheduled 1946 CT Colonography (combo) [facility] 00:00:00 [code = CT Colonography [facility] (combo)] Future Scheduled 1946 Screening for malignant [facility] 00:00:00 neoplasm of colon Medical Ce nter (procedure) [code = 328786615] Future Scheduled 1946 DXA SCAN [code = DXA [facility] 00:00:00 SCAN] [facility] Future Scheduled 1946 Screening for malignant [facility] 00:00:00 neoplasm of colon Medical Ce nter (procedure) [code = 042767630] Future Scheduled 1946 Sigmoidoscopy [code = [facility] 00:00:00 Sigmoidoscopy] [facility] Future Scheduled 1946 CT Colonography (combo) [facility] 00:00:00 [code = CT Colonography [facility] (combo)] Future Scheduled 1946 Screening for malignant [facility] 00:00:00 neoplasm of colon Medical Ce nter (procedure) [code = 097890824] Future Scheduled 1946 DXA SCAN [code = DXA [facility] 00:00:00 SCAN] [facility] Future Scheduled 1946 Screening for malignant [facility] 00:00:00 neoplasm of colon Medical Ce nter (procedure) [code = 607484883] Future Scheduled 1946 Sigmoidoscopy [code = [facility] 00:00:00 Sigmoidoscopy] [facility] Future Scheduled 1946 CT Colonography (combo) [facility] 00:00:00 [code = CT Colonography [facility] (combo)] Future Scheduled 1946 Screening for malignant [facility] 00:00:00 neoplasm of colon Medical Ce nter (procedure) [code = 373683135] Future Scheduled 1946 DXA SCAN [code = DXA [facility] Test 00:00:00 SCAN] Medical Center Future Scheduled 1946 [facility] neoplasm of colon Medical Ce nter (procedure) [code = 607703553] Future Scheduled 1946 Sigmoidoscopy [code = [facility] 00:00:00 Sigmoidoscopy] Medical Cente r Encounters Start End Encounter Admission Attending Care Care Encounter Source Date/Time Date/Time Type Type Clinicians Facility Department ID 2022-08-12 Outpatient Thomson, STLMLC STLMLC [id number] Common 10:03:00 Susana 85619 [facility] 2022-08-05 Outpatient Thomson, STLMLC STLMLC [id number] Common 10:39:00 Susana 69805 [facility] 2022-04-29 Outpatient Thomson, STLMLC STLMLC [id number] Common 13:24:00 Susana 54885 [facility] 2022-02-04 Outpatient Thomson, STLMLC STLMLC [id number] Common 10:17:01 Susana 88242 [facility] 2022-01-22 Outpatient CHRISTOS BROOKS, [facility] Surgery [id number] SLE 12:55:06 PEARL 2022-01-16 Outpatient Thomson, STLMLC STLMLC [id number] Common 13:25:00 Susana 56484 [facility] 2021-10-06 Outpatient Thomson, STLMLC STLMLC [id number] Common 16:18:00 Susana 94706 [facility] 2021-08-18 Outpatient Thomson, STLMLC STLMLC [id number] Common 09:23:08 Susana [facility] 2021-06-09 Outpatient Thomson, STLMLC STLMLC [id number] Common 10:56:01 Susana [facility] 2021-05-28 Outpatient Thomson, STLMLC STLMLC [id number] Common 08:20:00 Susana [facility] 2021-05-22 Outpatient Thomson, STLMLC STLMLC [id number] Common 15:37:00 Susana [facility] 2021-04-23 Outpatient Thomson, STLMLC STLMLC [id number] Common 14:32:51 Susana [facility] 2021-04-23 Outpatient Thomson, STLMLC STLMLC [id number] Common 14:27:21 Susana [facility] 2021-04-23 Outpatient Thomson, STLMLC STLMLC [id number] Common 14:26:14 Susana 21338 [facility] 2021-04-23 Outpatient Thomson, STLMLC STLMLC [id number] Common 14:26:02 Susana 36448 [facility] 2021-04-23 Outpatient Thomson, STLMLC STLMLC [id number] Common 14:25:31 Susana 54298 [facility] 2021-04-23 Outpatient Thomson, STLMLC STLMLC [id number] Common 14:24:42 Susana 03564 [facility] 2021-04-23 Outpatient Thomson, STLMLC STLMLC [id number] Common 14:24:14 Susana 89336 [facility] 2021-04-23 Outpatient Thomson, STLMLC STLMLC [id number] Common 14:22:04 Susana 47589 [facility] 2021-04-23 Outpatient STLMLC STLMLC [id number] Common 14:04:07 06541 [facility] 2021-04-23 Outpatient STLMLC STLMLC [id number] Common 13:57:01 10448 [facility] 2021-04-23 Outpatient STLMLC STLMLC [id number] Common 13:54:56 [id number] [facility] 2021-04-23 Outpatient STLMLC STLMLC [id number] Common 13:49:08 22753 [facility] 2021-04-23 [facility]patient [facility] [id number] Common 12:36:47 [id number] [facility] 2021-04-23 Outpatient [facility] [id number] Common 12:20:24 [id number] [facility] 2022-10-22 2022-10-22 Outpatient R ANA, [facility] [id number] Univers 10:15:00 10:15:00 ABIOLA ity of [facility] 2022-10-07 2022-10-07 Care Ana 2.16.840. 2.16.840.1. CLAC [id number] [facility] 13:37:00 14:07:00 Coordinwinnie Wells [id number] Medical on Non [id number] Billable 13397 2022-10-03 2022-10-03 Emergency X Kirit CONTRERAS [facility] ERT [id number] Univers 17:48:00 20:58:00 ity [facility] 2022-10-03 2022-10-03 Emergency Kirit Contreras [facility] [id number] Univers 17:48:00 20:58:00 Stephany MILLER 350.1.13.10 i ty of [place] 4.2.7.2.686 TexLucile [facility] [phone] [facility] [address] 2022-08-28 2022-08-28 Orders Doctor THOMAS [id number] Univers 00:00:00 00:00:00 Only Unassigned, JULIUS 350.1.13.10 ity of [place] [facility] 4.2.7.2.686 Manuel [id number] [facility] [address] 2022-08-04 2022-08-04 Care Andrez 2.16.840. 2.16.840.1. CLAC [id number] [facility] 11:00:00 11:30:00 OnMarkmand Carole [id number]. EEY Medical [id number] 2022-08-04 2022-08-04 Telephone [facility] [id number] Univers 00:00:00 00:00:00 Librado MILLER 350.1.13.10 ity [facility] 4.2.7.2.686 [facility] [id number] [place] dical [facility] 059 [facility] 2022-07-30 2022-07-30 Emergency X DAWSON BECKFORD [facility] ERT 1 [id number] Univers 18:30:00 22:29:00 DAWSON BECKFORD [facility] 2022-07-30 2022-07-30 Emergency [facility] [id number] Univers 18:30:00 22:29:00 Dawson ANGELA 350.1.13.10 i ty [facility] 4.2.7.2.686 [facility] CHATOM [phone] [place] 825104 [place] 2022-04-30 2022-04-30 OFFICE STLMLC STLMLC [id number] Co mmon 00:00:00 00:00:00 VISIT [facility] PT - CHI LEVEL 4 [facility] 2022-04-14 2022-04-14 (TEL) STLMLC STLMLC [id number] Co mmon 00:00:00 00:00:00 [facility] 2022-03-16 2022-03-16 (WEB) STLMLC STLMLC [id number] Co mmon 00:00:00 00:00:00 [facility] 2022-03-12 2022-03-12 (TEL) STLMLC STLMLC [id number] Co mmon 00:00:00 00:00:00 [facility] 2022-03-10 2022-03-10 Outpatient R JAN [facility] [id number] Univers 11:00:00 11:00:00 LIDIA farley [facility] 2022-03-04 2022-03-04 (TEL) STLMLC STLMLC [id number] Co mmon 00:00:00 00:00:00 [facility] 2022-03-04 2022-03-04 (TEL) STLMLC STLMLC [id number] Co mmon 00:00:00 00:00:00 [facility] 2022-02-23 2022-02-23 (TEL) STLMLC STLMLC [id number] Co mmon 00:00:00 00:00:00 [facility] 2022-02-21 2022-02-21 Inpatient [facility], SLE Surgery [id number] SLE 07:00:00 11:00:00 DARLING 2022-02-21 2022-02-21 [facility], [facility] [id number] 07:00:00 11:00:00 [facility] 2022-02-12 2022-02-12 (TEL) STLMLC STLMLC [id number] Co mmon 00:00:00 00:00:00 [facility] 2022-02-11 2022-02-11 (TEL) STLMLC STLMLC [id number] Co mmon 00:00:00 00:00:00 [facility] 2022-02-04 2022-02-04 (TEL) STLMLC STLMLC [id number] Co mmon 00:00:00 00:00:00 [facility] 2022-02-03 2022-02-03 (TEL) STLMLC STLMLC [id number] Co mmon 00:00:00 00:00:00 [facility] 2022-02-02 2022-02-02 (TEL) STLMLC STLMLC [id number] Co mmon 00:00:00 00:00:00 [facility] 2022-01-29 2022-01-29 (TEL) STLMLC STLMLC [id number] Co mmon 00:00:00 00:00:00 [facility] 2022-01-29 2022-01-29 (TEL) STLMLC STLMLC [id number] Co mmon 00:00:00 00:00:00 [facility] 2022-01-26 2022-01-26 Anesthesia Anabel, [facility] [id number] 08:25:00 09:27:00 Event Gricel Bailey [facility] 2022-01-26 2022-01-26 Surgery Suki, [facility] [id number] 07:50:00 08:50:00 [facility] 2022-01-25 2022-01-26 Inpatient ER ASUNCION, [facility] Gastro [id number] SLE 02:05:00 02:40:00 [facility] 2022-01-25 2022-01-26 Hospital ER Carol Heredia [facility] [id number] 02:05:00 02:40:00 Encounter AlirezaAyaan mortensen [facility] 2022-01-26 2022-01-26 (WEB) [facility] STLC [id number] Co mmon 00:00:00 00:00:00 [facility] 2022-01-16 2022-01-25 Inpatient UR [facility] Medicine [id number] SLE 13:08:00 01:30:00 5 2022-01-25 2022-01-25 Orders [facility] [id number] 00:00:00 00:00:00 [facility] 2022-01-25 2022-01-25 Travel [facility] [id number] [facility] 00:00:00 00:00:00 [facility] 2022-01-20 2022-01-20 (TEL) STLC STLC [id number] Co mmon 00:00:00 00:00:00 [facility] 2022-01-19 2022-01-19 (TEL) STLC STLC [id number] Co mmon 00:00:00 00:00:00 [facility] 2022-01-16 2022-01-16 (EST. STLMLC STLMLC [id number] Co mmon 00:00:00 00:00:00 VIDEO) EST Spi rit VIRTUAL - [facility]IDEO [facility] 2022-01-14 2022-01-14 (WEB) STLMLC STLMLC [id number] Co mmon 00:00:00 00:00:00 [facility] 2022-01-11 2022-01-13 Hospital RudyDanuta, [facility] [id number] 21:56:00 15:30:00 Encounter Litzy [address] [place] [address] 2022-01-13 2022-01-13 Surgery Dean, [facility] [id number] 10:00:00 10:46:00 Darling Mun[facility] 2022-01-11 2022-01-11 Emergency ER [facility] Emergency [id number] [facility] 21:50:00 21:55:00 2022-01-11 2022-01-11 Emergency [facility] [id number] 21:50:00 21:55:00 [facility] 2022-01-06 2022-01-06 (TEL) STLMLC STLMLC [id number] Co mmon 00:00:00 00:00:00 [facility] 2021-12-30 2021-12-30 OFFICE STLMLC STLMLC [id number] Co mmon 00:00:00 00:00:00 VISIT Spirit ESTAB PT - CHI LEVEL 4 [facility] 2021-12-17 2021-12-17 OFFICE STLMLC STLMLC [id number] Co mmon 00:00:00 00:00:00 VISIT EST Spir it PT LEVEL 3 - CH[facility] 2021-12-17 2021-12-17 (TEL) STLMLC STLMLC [id number] Co mmon 00:00:00 00:00:00 [facility] 2021-12-12 2021-12-12 (TEL) STLMLC STLMLC [id number] Co mmon 00:00:00 00:00:00 [facility] 2021 2021 Outpatient Iyanoye_S DMG DMG [id number] [facility] 00:00:00 00:00:00 0506 [facility] 2021 2021 Outpatient Iyanoye_S DMG G [id number] [facility] 00:00:00 00:00:00 0901 [facility] l Group 2021 2021 Outpatient Iyanoye_S DMG [facility] [id number] -2021 Devoted 00:00:00 00:00:00 1223 Medica l Group 2021 2021 Outpatient Iyanoye_S [facility] [id number] -[id number] [facility]oted 00:00:00 00:00:00 0105 Med[facility] l Group 2021 2021 (TEL) STLMLC STLMLC [id number] Co mmon 00:00:00 00:00:00 [facility] 2021-11-25 2021-11-25 (TEL) STLMLC STLMLC [id number] Co mmon 00:00:00 00:00:00 [facility] 2021-11-18 2021-11-18 (TEL) STLMLC STLMLC [id number] Co mmon 00:00:00 00:00:00 [facility] 2021-11-12 2021-11-12 (TEL) STLMLC STLMLC [id number] Co mmon 00:00:00 00:00:00 [facility] 2021-11-10 2021-11-10 OFFICE STLMLC STLMLC [id number] Co mmon 00:00:00 00:00:00 VISIT EST Spir it PT LEVEL 3 [facility] 2021-11-10 2021-11-10 (TEL) STLMLC STLMLC [id number] Co mmon 00:00:00 00:00:00 [facility] 2021-10-28 2021-10-28 (TEL) STLMLC STLMLC [id number] Co mmon 00:00:00 00:00:00 [facility] 2021-10-10 2021-10-10 Outpatient [facility] [id number] [facility] 03:13:00 03:13:00 0715 Medica l Group 2021-10-09 2021-10-09 (WEB) STLMLC STLMLC [id number] Co mmon 00:00:00 00:00:00 [facility] 2021-10-08 2021-10-08 OL DIG E/M STLMLC STLMLC [id number] Common 00:00:00 00:00:00 [facility]20 Spir it [facility] 2021-10-08 2021-10-08 (TEL) STLMLC STLMLC [id number] Co mmon 00:00:00 00:00:00 [facility] 2021-10-08 2021-10-08 (WEB) STLMLC STLMLC [id number] Co mmon 00:00:00 00:00:00 [facility] 2021-10-07 2021-10-07 (TEL) STLMLC STLMLC [id number] Co mmon 00:00:00 00:00:00 [facility] 2021-10-02 2021-10-02 (WEB) STLMLC STLMLC [id number] Co mmon 00:00:00 00:00:00 [facility] 2021-10-02 2021-10-02 (WEB) STLMLC STLMLC [id number] Co mmon 00:00:00 00:00:00 [facility] 2021-09-30 2021-09-30 (WEB) STLMLC STLMLC [id number] Co mmon 00:00:00 00:00:00 [facility] 2021-09-26 2021-09-26 (WEB) STLMLC STLMLC [id number] Co mmon 00:00:00 00:00:00 [facility] 2021-09-24 2021-09-24 OFFICE STLMLC STLMLC [id number] Co mmon 00:00:00 00:00:00 VISIT [facility] 4 [facility] 2021-09-17 2021-09-17 (TEL) STLMLC STLMLC [id number] Co mmon 00:00:00 00:00:00 [facility] 2021-08-27 2021-08-27 (TEL) STLMLC STLMLC [id number] Co mmon 00:00:00 00:00:00 Spirit - [facility] 2021-08-21 2021-08-21 (TEL) STLMLC STLMLC [id number] Co mmon 00:00:00 00:00:00 Spirit - [facility] 2021-08-20 2021-08-20 OFFICE STLMLC STLMLC [id number] Co mmon 00:00:00 00:00:00 VISIT Spirit ESTAB PT - CHI LEVEL 4 [facility] 2021-08-20 2021-08-20 SUB ANNUAL STLMLC STLMLC [id number] Common 00:00:00 00:00:00 MCR [facility] WELLNESS - CHI VISIT [facility] 2021-08-11 2021-08-11 (TEL) STLMLC STLMLC [id number] Co mmon 00:00:00 00:00:00 [facility] 2021-08-03 2021-08-04 Emergency X [facility] ERT [id number] Univers 21:58:00 01:05:00 PABLOO ity of [facility] 2021-08-03 2021-08-04 Emergency [facility] [id number] Univers 21:58:00 01:05:00 Morales [facility] [id number] ity [facility] 4.2.7.2.686 [facility] [id number] [place] [address] [place] 2021-07-30 2021-07-30 (TEL) STLMLC STLMLC [id number] Co mmon 00:00:00 00:00:00 Spirit [facility] [facility] 2021-07-30 2021-07-30 OFFICE STLMLC STLMLC [id number] Co mmon 00:00:00 00:00:00 VISIT EST Spir it PT LEVEL 3 - [facility] 2021-07-30 2021-07-30 (TEL) STLMLC STLMLC [id number] Co mmon 00:00:00 00:00:00 Spirit - [facility] 2021-05-28 2021-05-28 OL DIG E/M STLMLC STLMLC [id number] Common 00:00:00 00:00:00 [facility]-20 Spir it MIN [facility] 2021-05-27 2021-05-27 (TEL) STLMLC STLMLC [id number] Co mmon 00:00:00 00:00:00 [facility] 2021-05-09 2021-05-09 (TEL) STLMLC STLMLC [id number] Co mmon 00:00:00 00:00:00 [facility] 2021-05-08 2021-05-08 (TEL) STLMLC STLMLC [id number] Co mmon 00:00:00 00:00:00 [facility] 2021-04-23 2021-04-23 (TEL) STLMLC STLMLC [id number] Co mmon 00:00:00 00:00:00 [facility] 2021-04-11 2021-04-11 OFFICE STLMLC STLMLC [id number] Co mmon 00:00:00 00:00:00 VISIT EST Spir it PT LEVEL 3 [facility] 2021-04-11 2021-04-11 (TEL) STLMLC STLMLC [id number] Co mmon 00:00:00 00:00:00 [facility] 2021-04-09 2021-04-09 (TEL) STLMLC STLMLC [id number] Co mmon 00:00:00 00:00:00 [facility] 2021-04-07 2021-04-07 (TEL) STLMLC STLMLC [id number] Co mmon 00:00:00 00:00:00 [facility] 2021-03-14 2021-03-14 OFFICE STLMLC STLMLC [id number] Co mmon 00:00:00 00:00:00 VISIT Spirit ESTAB PT - [facility] LEVEL 4 [facility] 2021-03-14 2021-03-14 (TEL) STLMLC STLMLC [id number] Co mmon 00:00:00 00:00:00 [facility] 2021-03-11 2021-03-11 Outpatient R JAN [facility] [id number] Univers 15:15:00 17:38:47 LIDIA farley [facility] 2021-03-11 2021-03-11 Office GOLDIE Nazario 1.2.840.114 [id number] Univers 15:15:00 17:38:47 Visit Lidia Y KANDI 350.1.13.[address] [facility] [place] [phone] [facility] [address] [place] 2021-03-11 2021-03-11 Outpatient R JAN [facility] [id number] Univers 15:15:00 17:38:[address] [facility] 2021-03-08 2021-03-08 Sales Lead Generator Leola, Adc Lab Main [facility] 1.2.8 40.114 [id number] Univers 07:57:26 08:12:26 Visit Chance Paul 350.1.13.10 it[place] of [place] [phone] [address] 2021-03-08 2021-03-08 Outpatient R ROSSI [facility] [id number] Univers 08:00:00 08:00:00 CHANCE [facility] 2021-03-08 2021-03-08 Outpatient R ROSSI [facility] [id number] Univers 08:00:00 08:00:00 CHANCE to [facility] 2021-03-08 2021-03-08 Orders Doctor GUZMAN 1.2.840.114 [id number] Univers 00:00:00 00:00:00 Only Unassigned, JULIUS 350.1.13.10 ity of [place] [facility] 4.2.7.2.686 Manuel as [phone] [facility] [address] 2021-02-28 2021-02-28 Outpatient R [facility] [id number] Univers 07:55:14 23:59:[address] [facility] 2021-02-28 2021-02-28 [facility] 1.2.840.114 [id number] Univers 07:55:14 23:59:00 Encounter Librado [place] 350.1.13.10 ity [facility] 4.2.7.2.686 [facility] [phone] [address] 2021-02-28 2021-02-28 Outpatient R JOSE ALBERTO, [facility] [id number] Univers 07:55:14 23:59:00 QIANGDIAN ity o f [facility] 2021-02-28 2021-02-28 [facility] 1.2.840.114 [id number] Univers 07:54:41 07:54:41 Encounter Librado [place] 350.1.13.10 ity of [facility] 4.2.7.2.686 [facility] [id number] [address] 2021-02-28 2021-02-28 [facility] 1.2.840.114 [id number] Univers 07:54:07 07:54:07 Encounter Librado [place] 350.1.13.10 ity of [facility] 4.2.7.2.686 [facility] [phone] [address] 2021-02-07 2021-02-07 Outpatient R JOSE ALBERTO, [facility] [id number] Univers 09:20:00 09:31:58 QIAAMELIA ity o f [facility] 2021-02-07 2021-02-07 Outpatient R JOSE ALBERTO, [facility] [id number] Univers 09:20:00 09:31:58 QIANGDINA ity o f [facility] 2021-02-07 2021-02-07 Outpatient R JOSE ALBERTO, [facility] [id number] Univers 09:20:00 09:31:58 QIANGDIAN ity o f [facility] 2021-02-07 2021-02-07 Outpatient R JOSE ALBERTO, [facility] [id number] Univers 09:20:00 09:31:58 QIANGDIAN ity o f [facility] 2021-02-07 2021-02-07 Office [facility] 1.2.840.114 [id number] Univers 09:01:02 09:31:58 Visit Jamesngjun [place] 350.1.13.10 it[place] of [place] [phone] [place] 059 [facility] 2021-02-01 2021-02-01 Outpatient DMG DMG [id number] Devoted 11:01:00 11:01:00 1106 [facility] 2021-01-16 2021-01-16 Outpatient R [facility] [id number] Univers 14:30:00 14:30:00 ity of [facility] 2020-12-12 2020-12-12 Orders Doctor THOMAS 1.2.840.114 [id number] Univers 00:00:00 00:00:00 Only Unassigned, JULIUS 350.1.13.10 ity of [place] [facility] 4.2.7.2.686 Manuel as [phone] [address] 2020-12-11 2020-12-11 [facility] [id number] Co mmon 00:00:00 00:00:00 VISIT Spirit ESTAB PT - CHI LEVEL 4 [facility] 2020-12-06 2020-12-06 Patient [facility] 1.2.840.114 [id number] Univers 00:00:00 00:00:00 Secure Msg Wondiful A [facility] 350.1.13.10 ity of [place] 4.2.7.2.686 Manuel as Luis Enrique?Blea [phone] [address] Medical Office [facility] 2020-12-06 2020-12-06 Telephone [facility] 1.2.840.114 [id number] Univers 00:00:00 00:00:00 Wondiful A [facility] 350.1.13.10 ity of [place] 4.2.7.2.686 Manuel as Luis Enrique?Blea [phone] [address] Office [facility] 2020-12-04 2020-12-04 Case [facility] 1.2.840.114 [id number] Univers 00:00:00 00:00:00 Management Wondiful A Health 350.1.13.10 ity of [place] 4.2.7.2.686 Manuel as Luis Enrique?Blea [phone] [place] rahman [address] [place] Medical Office [facility] 2020-11-28 2020-11-28 Sales Lead Generator Lab, Ang - Db [facility] 1.2.840.1 [id number] Univers 16:02:35 16:17:35 Visit Chela Knowles [facility] 350.1.13.1 0 ity of [place] 4.2.7.2.686 Manuel as Luis Enrique?Blea [phone] [place] rahman [address] [place] Medical Office [facility] 2020-11-28 2020-11-28 Outpatient [facility] [id number] Univers 15:15:00 16:02:[address] [facility] 2020-11-28 2020-11-28 Outpatient R ELENI [facility] [id number] Univers 15:15:00 16:02:[address] [facility] 2020-11-28 2020-11-28 Office [facility] 1.2.840.114 [id number] Univers 14:51:53 16:02:20 Visit Chela A Health 350.1.13.10 ity of [place] 4.2.7.2.686 Manuel as Luis Enrique?Blea [phone] [place] nat [place] [address] [place] Medical Office [facility] 2020-11-28 2020-11-28 Outpatient R ELENI [facility] [id number] Univers 15:15:00 15:15:[address] [facility] 2020-11-15 2020-11-15 Outpatient Belia CHURCHILL [facility] [id number] Univers 14:00:00 14:00:00 [facility] 2020-11-15 2020-11-15 Outpatient Belia CHURCHILL [facility] [id number] Univers 14:00:00 13:37:47 [facility] 2020-11-15 2020-11-15 Outpatient Belia CHURCHILL [facility] [id number] Univers 14:00:00 13:37:47 [facility] 2020-10-14 2020-10-14 Damion Redding [facility] 1.2.840.114 [id number] Univers 00:00:00 00:00:00 Sam [facility] 350.1.13.10 it y of [place] 4.2.7.2.686 Manuel as Professio [id number] [address] Office Building One 2020-10-08 2020-10-08 Outpatient R KAVON [facility] [id number] Univers 14:20:00 15:23:11 JEN yousuf [facility] 2020-10-08 2020-10-08 Outpatient R KAVON [facility] [id number] Univers 14:20:00 15:23:11 JEN lorraine [facility] 2020-10-08 2020-10-08 Outpatient R KAVON [facility] [id number] Univers 14:20:00 14:20:[address] [facility] [facility] 2020-10-08 2020-10-08 Urgent Provider, [facility] 1.2.840.114 [id number] Univers 13:57:06 14:17:06 Care Jen Talbert [facility] 350.1.13.10 ity of [place] 4.2.7.2.686 Manuel as Professio [phone] [address] Office [facility] One 2020-09-12 2020-09-12 Orders Doctor THOMAS 1.2.840.114 [id number] Univers 00:00:00 00:00:00 Only Unassigned, JULIUS 350.1.13.10 ity of [place] [facility] 4.2.7.2.686 Manuel as [phone] [address] 2020-09-04 2020-09-04 Telephone Eleni [facility] 1.2.840.114 [id number] Univers 00:00:00 00:00:00 Wondiful [facility] 350.1.13.10 ity of [place] 4.2.7.2.686 Manuel as Professio [phone] [address] Office Building One 2020-08-05 2020-08-05 Outpatient R JOSE ALBERTO [facility] [id number] Univers 09:40:00 09:40:[address] [facility] 2020-08-05 2020-08-05 Office Jose Alberto, [facility] 1.2.840.114 [id number] Univers 09:15:43 09:35:40 Visit Geovanydian [place] 350.1.13.10 it[place] of [place] [phone] [place] [id number] [facility] 2020-07-25 2020-07-25 Outpatient R JOSE ALBERTO, [facility] [id number] Univers 08:31:20 23:59:[address] [facility] 2020-07-25 2020-07-25 Outpatient R JOSE ALBERTO, [facility] [id number] Univers 08:31:20 23:59:[address] [facility] 2020-07-25 2020-07-25 Outpatient R JOSE ALBERTO, [facility] [id number] Univers 09:00:00 09:00:[address] [facility] 2020-07-10 2020-07-10 Telephone GOLDIE Nguyen 1.2.840.114 [id number] Univers 00:00:00 00:00:00 [facility] 350.1.13.[address] [facility] [place].2.7.2.[place] [phone] [facility] [address] [place] 2020-06-28 2020-06-28 Orders Doctor THOMAS 1.2.840.114 [id number] Univers 00:00:00 00:00:00 Only Unassigned, JULIUS 350.1.13.10 ity of [place] [facility] 4.2.7.2.686 Manuel as [phone] [facility] [address] 2020-06-25 2020-06-25 Outpatient TANA ISAACS [facility] [id number] Univers 09:45:00 09:45:00 ity of [facility] 2020-06-25 2020-06-25 Outpatient TANA ISAACS [facility] [id number] Univers 09:45:00 09:45:00 ity of [facility] 2020-06-25 2020-06-25 Outpatient TANA ISAACS [facility] [id number] Univers 09:45:00 09:45:00 ity of [facility] Branch 2020-06-25 2020-06-25 Office Tana Velez [facility] 1.2.840.114 [id number] Univers 09:18:55 09:33:55 Visit [facility] 350.1.13.10 it [place] of [place] [phone] [address] Office Building 2020-06-11 2020-06-11 Outpatient Belia APARICIO [facility] [id number] Univers 13:30:00 14:34:44 KEISHA to [facility] 2020-06-11 2020-06-11 Outpatient Belia APARICIO [facility] [id number] Univers 13:30:00 14:34:44 KEISHA to [facility] 2020-06-11 2020-06-11 Office Markus [facility] 1.2.498.041 [id number] Univers 12:55:34 14:34:44 Visit Keisha [place] 350.1.13.10 i ty of [place]2.7.2.686 [place] [facility] [phone] [place] [address] Branch Building 2020-06-11 2020-06-11 Outpatient Belia APARICIO [facility] [id number] Univers 13:30:00 13:30:00 KEISHA to [facility] 2020-06-03 2020-06-03 Outpatient Belia JIMÉNEZ [facility] [id number] Univers 08:50:00 08:50:00 INDIGO yousuf [facility] 2020-06-03 2020-06-03 Outpatient Belia JIMÉNEZ [facility] [id number] Univers 08:50:00 08:31:51 INDIGO lorraine [facility] 2020-06-03 2020-06-03 Outpatient Belia JIMÉNEZ [facility] [id number] Univers 08:50:00 08:31:51 INDIGO lorraine [facility] 2020-05-31 2020-05-31 Outpatient Belia NAZARIO [facility] [id number] Univers 09:00:00 09:00:00 LIDIA farley [facility] 2020-05-31 2020-05-31 Outpatient R JAN [facility] [id number] Univers 09:00:00 09:00:00 LIDIA farley [facility] 2020-05-31 2020-05-31 Outpatient Belia NAZARIO [facility] [id number] Univers 09:00:00 09:00:00 LIDIA farley [facility] 2020-05-30 2020-05-30 Sales Lead Generator Lab, Galilea Fam Pob I [facility] 1.. 840.114 [id number] Univers 10:38:21 10:58:21 Visit Chela Knowles [facility] 350.1.13.1 0 ity of [place] 4.2.7.2.686 Manuel as Professio [phone] [place] dic[address] 2020-05-30 2020-05-30 Outpatient R ELENI [facility] [id number] Univers 10:00:00 10:36:[address] [facility] 2020-05-30 2020-05-30 Outpatient R ELENI [facility] [id number] Univers 10:00:00 10:36:[address] [facility] 2020-05-30 2020-05-30 Office [facility] 1.2.840.114 [id number] Univers 09:28:48 10:36:57 Visit Wondiful [facility] 350.1.13.10 ity of [place] 4.2.7.2.686 Manuel as Professio [phone] [address] 2020-05-30 2020-05-30 Outpatient [facility] [id number] Univers 10:00:00 10:00:[address] [facility] 2020-05-06 2020-05-06 Outpatient R JOSE ALBERTO [facility] [id number] Univers 09:00:00 09:00:[address] [facility] 2020-05-01 2020-05-01 Telephone Sd [facility] 1.2.567.932 [id number] Univers 00:00:00 00:00:00 Simi [facility] 350.1.13.10 it y of [place] 4.2.7.2.686 Manuel as Professio [phone] [place] dical nal [address] [place] Office [facility] One 2020-04-24 2020-04-24 Sales Lead Generator [facility] 1.2.840.114 [id number] Univers 11:05:23 11:20:23 Visit Jose Nguyen HEALTH 350.1.13.10 ity of CL[place] [phone] [facility] [address] [place] 2020-04-24 2020-04-24 Outpatient R WENDY [facility] [id number] Univers 09:30:00 10:57:46 [facility] 2020-04-24 2020-04-24 Outpatient R WENDY [facility] [id number] Univers 09:30:00 10:57:46 [facility] 2020-04-24 2020-04-24 [facility] 1.2.840.114 [id number] Univers 09:17:48 10:57:46 Visit Jose Zhu [facility] 350.1.13.10 i ty of CLINICS 4[place].2.[place] [phone] [place] 6564[address] [place] 2020-04-24 2020-04-24 Outpatient R NGUYEN [facility] [id number] Univers 09:30:00 09:30:00 [facility] 2020-04-24 2020-04-24 Telephone [facility] 1.2.693.324 [id number] Univers 00:00:00 00:00:00 Simi [facility] 350.1.13.10 it y of [place] 4.2.7.2.686 Manuel as Professio [phone] [place] dical nal 044 [facility] One 2020-04-24 2020-04-24 Telephone [facility] 1.2.444.761 [id number] Univers 00:00:00 00:00:00 [facility] 350.1.13.10 it y of [place] 4.2.7.2.686 Manuel as Professio [phone] [place] dical [facility] [address] [place] Office Building One 2020-04-22 2020-04-22 Orders Doctor THOMAS 1.2.840.114 [id number] Univers 00:00:00 00:00:00 Only Unassigned, JULIUS 350.1.13.10 ity of [place] [facility] 4.2.7.2.686 Manuel as [phone] [facility] [address] [place] 2020-04-18 2020-04-18 Sales Lead Generator [facility] 1.2.840.114 [id number] Univers 09:49:19 09:58:35 Visit Morena Gray HEALTH 350.1.13.10 ity of [place] 4[place]2.[place].2.[place] [phone] [facility] [address] [place] 2020-04-18 2020-04-18 Outpatient Belia GRAY [facility] [id number] Univers 09:45:00 09:58:35 MORENA lorraine [facility] 2020-04-18 2020-04-18 Outpatient Belia GRAY [facility] [id number] Univers 09:45:00 09:58:35 MORENA itlorraine [facility] 2020-04-18 2020-04-18 Office Isaac [facility] 1.2.790.311 [id number] Univers 08:45:47 09:38:59 Visit Morena HEALTH 350.1.13.10 i ty of [place] 4[place].2.[place] [phone] [facility] [address] [place] 2020-04-18 2020-04-18 Outpatient Belia GRAY [facility] [id number] Univers 09:00:00 09:00:00 MORENA itlorraine [facility] 2020-04-11 2020-04-11 Outpatient Belia BEAVER [facility] [id number] Univers 13:30:00 16:02:08 SIMI abdirizaklorraine [facility] 2020-04-11 2020-04-11 Outpatient Belia BEAVER [facility] [id number] Univers 13:30:00 16:02:08 SIMI yousuf [facility] 2020-04-11 2020-04-11 Outpatient Belia BEAVER [facility] [id number] Univers 13:30:00 16:02:08 SIMI to [facility] 2020-04-11 2020-04-11 Office [facility] 1.2.840.114 [id number] Univers 12:57:38 16:02:08 Visit Simi Health 350.1.13.10 it y of [place] 4.2.7.2.686 Manuel as Professio [phone] [address] Office [facility] One 2020-04-11 2020-04-11 Out[address] [facility] [id number] Univers 13:30:00 13:30:00 SIMI to [facility] 2020-04-03 2020-04-03 [place] [facility] 1.2.838.219 [id number] Univers 00:00:00 00:00:00 [facility] 350.1.13.10 it y of [place] 4.2.7.2.686 Manuel as Professio [phone] [address] Office [facility] One 2020-03-27 2020-03-27 [place] [facility] 1.2.556.778 [id number] 00:00:00 00:00:00 [facility] 350.1.13.10 [place] 4.2.7.2.686 Professio [phone] [place] [address] Office [facility] One 2020-03-27 2020-03-27 [place] [facility] 1.2.095.780 [id number] Univers 00:00:00 00:00:00 [facility] 350.1.13.10 it y of [place] 4.2.7.2.686 Manuel as Professio [phone] [address] Office Building One 2020-03-26 2020-03-26 [place] [facility] 1.2.389.157 [id number] 00:00:00 00:00:00 [facility] 350.1.13.10 [place] 4.2.7.2.686 Professio [phone] [place] [address] Office Building One 2020-03-26 2020-03-26 [place] [facility] 1.2.469.749 [id number] Univers 00:00:00 00:00:00 [facility] 350.1.13.10 it y of [place] 4.2.7.2.686 Manuel as Professio [phone] [address] 2020-03-25 2020-03-25 [facility] 1.2.840.114 [id number] 00:00:00 00:00:00 [facility] 350.1.13.10 [place] 4.2.7.2.686 Professio [phone] [address] 2020-03-25 2020-03-25 [facility] 1.2.840.114 [id number] [facility] 00:00:00 00:00:00 Sam Health 350.1.13.10 it y of [place] 4.2.7.2.686 Manuel as Professio [phone] [address] 2020-03-01 2020-03-01 Orders Doctor THOMAS 1.2.840.114 [id number] 00:00:00 00:00:00 Only Unassigned, JULIUS 350.1.13.10 [place] [facility] 4.2.7.2.686 [id number] [facility] 2020-03-01 2020-03-01 Orders Doctor THOMAS 1.2.840.114 [id number] [facility] 00:00:00 00:00:00 Only Unassigned, JULIUS 350.1.13.10 ity of [place] [facility] 4.2.7.2.686 Manuel as [phone] [address] 2020-02-29 2020-02-29 Patient Doctor [facility] 1.2.840.114 [id number] 00:00:00 00:00:00 Secure Msg Unassigned, Health 350.1.13.10 [place] 4.2.7.2.686 Professio [phone] [place] [address] Office [facility] 2020-02-29 2020-02-29 Patient Doctor [facility] 1.2.840.114 [id number] Univers 00:00:00 00:00:00 Secure Msg Unassigned, Health 350.1.13.10 ity of [place] 4.2.7.2.686 Manuel as Professio [phone] [facility] [address] Office [facility] 2020-02-26 2020-02-26 Telephone [facility] 1.2.635.136 [id number] 00:00:00 00:00:00 Simi [facility] 350.1.13.10 [place] 4.2.7.2.686 Professio [phone] [place] [address] Office [facility] 2020-02-26 2020-02-26 [facility] 1.2.280.311 [id number] [facility] 00:00:00 00:00:00 [facility]i [facility] 350.1.13.10 it y of [place] 4.2.7.2.686 Manuel as Professio [phone] [address] Office [facility] 2020-02-01 2020-02-01 [place] [facility] 1.2.840.114 [id number] 00:00:00 00:00:00 Sam [facility] 350.1.13.10 [place] 4.2.7.2.686 Professio [phone] [place] [address] Office [facility] 2020-02-01 2020-02-01 [facility] 1.2.840.114 [id number] [facility] 00:00:00 00:00:00 Sam [facility] 350.1.13.10 it y of [place] 4.2.7.2.686 Manuel as Professio [phone] [address] Office [facility] 2020-01-31 2020-01-31 Orders Doctor GUZMAN 1.2.840.114 [id number] 00:00:00 00:00:00 Only Unassigned, JULIUS 350.1.13.10 [place] [facility] 4.2.7.2.686 [id number] 009 2020-01-31 2020-01-31 Orders Doctor GUZMAN 1.2.840.114 [id number] [facility] 00:00:00 00:00:00 Only Unassigned, JULIUS 350.1.13.10 ity of [facility] 4.2.7.2.686 Manuel as [phone] [address] 2020-01-23 2020-01-23 Orders Doctor GUZMAN 1.2.840.114 [id number] 00:00:00 00:00:00 Only Unassigned, JULIUS 350.1.13.10 [facility] 4.2.7.2.686 [id number] 2020-01-23 2020-01-23 Orders Doctor THOMAS 1.2.840.114 [id number] [facility] 00:00:00 00:00:00 Only Unassigned, JULIUS 350.1.13.10 [facility]y of [place] [facility] 4.2.7.2.686 Manuel as [phone] [address] 2020-01-09 2020-01-09 Telephone [facility] 1.2.840.114 [id number] 00:00:00 00:00:00 [facility] 350.1.13.10 [place] 4.2.7.2.686 Professio [phone] [place] [address] Office Building [facility] 2020-01-09 2020-01-09 Telephone [facility] 1.2.840.114 [id number] Univers 00:00:00 00:00:00 [facility] 350.1.13.10 it y of [place] 4.2.7.2.686 Manuel as Professio [phone] [address] Office Building [facility] 2020-01-08 2020-01-08 Outpatient R [facility] [id number] Univers 16:40:00 16:40:00 ity of [facility] 2020-01-08 2020-01-08 Urgent Provider, [facility] 1.2.632.220 [id number] 16:10:58 16:30:58 [facility] 350.1.13.10 [facility] [place] 4.2.7.2.686 Professio [phone] [place] [address] Office Building [facility] 2020-01-08 2020-01-08 Urgent Provider, [facility] 1.2.840.114 [id number] Univers 16:10:58 16:30:58 Care Anecristino, [facility] 350.1.13.10 ity of [place] 4.2.7.2.686 Manuel as Professio [phone] [address] Office Building One 2019-11-29 2019-11-29 Orders Doctor THOMAS 1.2.840.114 [id number] 00:00:00 00:00:00 Only Unassigned, JULIUS 350.1.13.10 [facility] 4.2.7.2.686 [phone] 009 2019-11-29 2019-11-29 Orders Doctor THOMAS 1.2.840.114 [id number] Univers 00:00:00 00:00:00 Only Unassigned, JULIUS 350.1.13.10 ity of [place] [facility] 4.2.7.2.686 Manuel as [phone] [address] 2019-11-17 2019-11-18 Office [facility] 1.2.840.114 [id number] 08:28:10 17:49:23 Visit Lidia Miller 350.1.13.10 [place] 4.2.7.2.686 Professio [phone] [address] 2019-11-17 2019-11-18 Office [facility] 1.2.840.114 [id number] [facility] 08:28:10 17:49:23 Visit Lidia Miller 350.1.13.10 ity of [place] [phone] [place] dical [address] 2019-11-17 2019-11-17 Outpatient [facility] [id number] Univers 08:45:00 08:45:00 LIDIA to o f [facility] 2019-11-13 2019-11-13 Outpatient [facility] [id number] Univers 09:00:00 09:00:00 SENDIL itlorraine of [facility] 2019-11-13 2019-11-13 Orders Doctor GUZMAN 1.2.840.114 [id number] Univers 00:00:00 00:00:00 Only Unassigned, JULIUS 350.1.13.10 ity of [place] [facility] 4.2.7.2.686 Manuel as [phone] [address] 2019-11-01 2019-11-01 [facility] 1.2.840.114 [id number] Univers 00:00:00 00:00:00 Sam Miller 350.1.13.10 i ty [place] [phone] [place] dical nal 044 [facility] 2019-10-27 2019-10-27 Office [facility] 1.2.840.114 [id number] Univers 09:30:53 10:29:54 Visit Lidia Angela 350.1.13.10 ity of [place] [phone] [place] dical nal 205 [facility] 2019-10-27 2019-10-27 [facility] [id number] Univers 10:00:00 10:00:00 LIDIA yousuf chacon f [facility] 2019-10-27 2019-10-27 Telephone [facility] 1.2.071.054 [id number] Univers 00:00:00 00:00:00 Librado Miller 350.1.13.10 ity of [place] [phone] [place] dical nal 059 [facility] 2019-10-27 2019-10-27 Telephone [facility] 1.2.179.087 [id number] Univers 00:00:00 00:00:00 Librado Miller 350.1.13.10 ity of [place].2.[place] [phone] [place] dical nal 059 [facility] 2019-10-21 2019-10-21 [facility] 1.2.840.114 [id number] Univers 00:00:00 00:00:00 Management Chela Miller 350.1.13.10 ity of [place].2.[place] [phone] [place] dical nal 044 [facility] 2019-10-20 2019-10-20 [facility] 1.2.840.114 [id number] Univers 00:00:00 00:00:00 Sam Miller 350.1.13.10 i ty [place].2.[place] [phone] [facility] 044 [facility] 2019-10-17 2019-10-17 Office Jose [facility] 1.2.840.114 [id number] Univers 11:20:37 12:12:34 Visit Librado Miller 350.1.13.10 ity of [place]2.7.2.[place] [phone] [address] 2019-10-17 2019-10-17 Outpatient R [facility] [id number] Univers 11:40:00 11:40:00 LIBRADO to o f [facility] 2019-10-16 2019-10-16 Telephone [facility] [id number] [id number] Univers 00:00:00 00:00:00 Simi Miller 350.1.13.10 i ty of [place]2.7.2.686 [place] [phone] [address] 2019-10-10 2019-10-10 Refill [facility] 1.2.840.114 [id number] Univers 00:00:00 00:00:00 [facility] 350.1.13.10 it y of [place] 4.2.7.2.686 Manuel as Professio [phone] [address] One 2019-09-07 2019-09-07 Telephone [facility] 1.2.709.719 [id number] Univers 00:00:00 00:00:00 Sendil [facility] 350.1.13.10 ity of [place]2.7.2.686 [place] Paula [phone] [address] Office Building 2019-09-01 2019-09-01 Office [facility] 1.2.840.114 [id number] Univers 11:04:23 11:45:55 Visit Oli Beth.Pam Miller 350.1.13.10 ity of [place] 4.2.7.2.[place] [phone] [address] 2019-09-01 2019-09-01 Outpatient [facility] [id number] Univers 11:00:00 11:00:00 OLI ity [facility] 2019-07-21 2019-07-21 Outpatient R VAHID [facility] [id number] Univers 10:30:00 10:30:00 SAM ity [facility] 2019-07-21 2019-07-21 Outpatient R ELENI, [facility] [id number] Univers 09:15:00 09:15:00 WONDIFUL ity o f [facility] 2019-07-21 2019-07-21 Telemedici [facility]idRE[facility] 1.2.840.114 [id number] Univers 07:53:52 08:08:52 ne Visit Sam Miller 350.1.13.10 ity of [place]2.7.2.[place] [phone] [place] dicaz nal [address] [place] [address] 2019-07-10 2019-07-10 [facility] 1.2.840.114 [id number] Univers 00:00:00 00:00:00 [facility] 350.1.13.10 it y of [place] 4.2.7.2.686 Manuel as Professio [phone] [address] 2019-06-09 2019-06-09 [facility] 1.2.840.114 [id number] Univers 00:00:00 00:00:00 [facility] 350.1.13.10 it y of [place] 4.2.7.2.686 Manuel as Professio [phone] [facility] nal [address] [place] [address] 2019-05-12 2019-05-12 [employer], Ad[facility] Vascular Room 1 [facility] 1.2.840.114 [id number] Univers 08:03:52 12:08:17 Visit Oli Jeffrey 350.1.13. 10 ity of [place].2.[place] [phone] [place] dicaz nal 059 [facility] 2019-05-12 2019-05-12 [employer], Adc Vascular Room 1 [facility] 1.2.840.114 [id number] Univers 08:03:22 12:07:58 Visit Oli JeffreyMichaelaTrina Angela 350.1.13. 10 ity of [place].2.[place] [phone] [address] 2019-05-01 2019-05-02 Office [facility] 1.2.840.114 [id number] Univers 16:37:44 13:25:33 Visit [facility] 350.1.13.10 it y of [place] 4.2.7.2.686 Manuel as Professio [phone] [address] 2019-05-02 2019-05-02 Office [facility] 1.2.840.114 [id number] Univers 09:14:48 10:02:07 Visit Librado [place] 350.1.13.10 ity of [place] 4[place]2.7.2.[place] [phone] [address] 2019-05-02 2019-05-02 Telephone [facility] [id number] Univers 00:00:00 00:00:00 [facility] 350.1.13.10 it y of [place] 4.2.7.2.686 Manuel as Professio [phone] [address] 2019-04-30 2019-05-01 Emergency [facility] [id number] Univers 23:28:52 01:43:00 JOSE to [facility] 2019-04-30 2019-05-01 Emergency [facility] [id number] [id number] Univers 23:28:52 01:43:00 Jose Angela 350.1.13.10 i ty of [place]2.7.2.686 [place] [phone] [address] 2019-04-18 2019-04-18 Telephone [facility] 1.2.218.759 [id number] Univers 00:00:00 00:00:00 [facility] 350.1.13.10 it y of [place] 4.2.7.2.686 Manuel as Therese [phone] [place] [address] [address] Office [address] One 2019-03-09 2019-03-09 Outpatient Belia [facility] [id number] Univers 17:12:34 23:59:00 SIIM to of [facility] 2018-12-07 2018-12-07 Outpatient [facility] [id number] Common 08:19:00 08:19:[address] [facility] 2018-12-06 2018-12-06 Outpatient [facility] [id number] Common 10:40:00 10:40:[address] [facility] 2018-11-22 2018-11-22 Outpatient [facility] [id number] Common 09:02:00 09:02:[address] [facility] 2018-11-18 2018-11-18 Outpatient [facility] [id number] Common 09:05:00 09:05:[address] [facility] 2018-11-10 2018-11-10 Outpatient [facility] [id number] Common 16:00:00 16:00:[address] [facility] 2018-10-19 2018-10-19 Outpatient [facility] [id number] Common 14:30:00 14:30:[address] [facility] 2018-06-14 2018-06-14 Outpatient [facility] [id number] Common 08:32:00 08:32:[address] [facility] 2018-06-07 2018-06-07 Outpatient [facility] [id number] Common 13:45:00 13:45:[address] [facility] 2016-10-01 2016-10-02 Outpatient [facility] [id number] Memoria 15:22:00 04:59:00 belia Collazo l RAVEN Doe 2016-10-01 2016-10-02 Outpatient [facility] [id number] Memoria 15:22:00 04:59:00 r Nader 01 l ARVINUT Nader 2016-10-01 2016-10-01 Outpatient Nguyễn [facility] [id number] 10:22:00 23:59:00 Darwin 01 Darrell [facility] 2016-07-02 2016-07-03 Outpatient [facility] [id number] Memoria 15:08:00 04:59:00 [facility] 2016-07-02 2016-07-03 Outpatient [facility] [id number] Memoria 15:08:00 04:59:00 r Nader 00 l [facility] 2016-07-02 2016-07-02 Outpatient Nguyễn [facility] [id number] 10:08:00 23:59:00 Darwin [facility] 2010-10-24 2010-10-24 Orders Doctor THOMAS 1.2.840.114 [id number] 00:00:00 00:00:00 Only Unassigned, JULIUS 350.1.13.10 ity of [place] [facility] 4.2.7.2.686 Manuel as [phone] [address] Results Test Description Test Time Test Comments Results Result Comments Source CREATINE KINASE 2022-10-04 00:29:33 Test Item Value Reference Range Interpretation Comme nts CK (test code = 9294021592) 33-194 L Lab Interpretation (test code = 83213-2) Abnormal [facility] 00:27:13 Test Item Value Reference Range Interpretation Comments MAGNESIUM (test code = 7976280022) 1.7 mg/dL 1.7-2.4 Lab Interpretation (test code = Normal 73883-0) [facility] MET[facility]OLIC PANEL (31645)2022-10-04 00:26:53 Test Item Value Reference Range Interpretation Comments NA (test code = 138 mmol/L 135-145 7592761427) K (test code = 4.4 mmol/L 3.5-5.0 1105439479) CL (test code = 103 mmol/L 98-108 4516185124) CO2 TOTAL (test code = 27 mmol/L 23-31 4741144242) AGAP (test code = 8 2-16 7953338197) BUN (test code = 29 mg/dL 7-23 H 1187661412) GLUCOSE (test code = 167 mg/dL 70-110 H 1185360197) CREATININE (test code = 1.23 mg/dL 0.50-1.04 H 5915394196) TOTAL BILI (test code = 0.4 mg/dL 0.1-1.5 9114213147) CALCIUM (test code = 9.9 mg/dL 8.6-10.6 5007668083) T PROTEIN (test code = 6.0 g/dL 6.3-8.2 L 1149727304) ALBUMIN (test code = 3.6 g/dL 3.5-5.0 5214644910) ALK PHOS (test code = 72 U/L 34-122 5139095523) ALTv (test code = 15 U/L 5-35 1742-6) AST(SGOT) (test code = 17 U/L 13-40 0279136542) eGFR (test code = 42.6 mL/min/1.73m2 3656043289) ELLIOT (test code = ELLIOT) Association of [...] tests). Lab Interpretation Abnormal (test code = 62218-9) [facility] WITH [id number] 00:22:57 Test Item Value Reference Range Interpretation Comments WBC (test code = 11.76 See_Comment H [Automated 6690-2) message] The sy stem which generated this result transmitted reference range : 4.30 - 11.10 10*3/?L. The reference range was not used to interpret this result as normal/abnormal . RBC (test code = 2.95 See_Comment L [Automated 789-8) message] The sy stem which generated this result transmitted reference range : 3.93 - 5.25 10*6/?L. The reference range was not used to interpret this result as normal/abnormal . HGB (test code = 9.0 g/dL 11.6-15.0 L 718-7) HCT (test code = 28.2 % 35.7-45.2 L 4544-3) MCV (test code = 95.6 fL 80.6-95.5 H 787-2) MCH (test code = 30.5 pg 25.9-32.8 785-6) MCHC (test code = 31.9 g/dL 31.6-35.1 786-4) RDW-SD (test code = 52.5 fL 39.0-49.9 H 44436-8) RDW-CV (test code = 15.4 % 12.0-15.5 788-0) PLT (test code = 317 See_Comment [Automated 777-3) message] The sy stem which generated this result transmitted reference range : 166 - 358 10*3/ ?L. The reference r manuela was not used to interpret this result as normal/abnormal . MPV (test code = 11.1 fL 9.5-12.9 00417-9) NRBC/100 WBC (test 0.0 See_Comment [Automat ed code = 9726194583) message] The system which generated this result transmitted reference range : 0.0 - 10.0 /100 WBCs. The refer ence range was not u sed to interpret th is result as normal/abnormal . NRBC x10^3 (test code See_Comment [Auto mated = 7868230983) message] The s ystem which generated this result transmitted reference range : 10*3/?L. The reference range was not used to interpret this result as normal/abnormal . GRAN MAT (NEUT) % 73.5 % (test code = 770-8) IMM GRAN % (test code 0.60 % = 4670509863) LYMPH % (test code = 12.3 % 736-9) MONO % (test code = 9.0 % 5905-5) EOS % (test code = 3.7 % 713-8) BASO % (test code = 0.9 % 706-2) GRAN MAT x10^3(ANC) 8.64 10*3/uL 1.88-7.09 H (test code = 9911130517) IMM GRAN x10^3 (test 0.07 10*3/uL 0.00-0.06 H code = 3215489854) LYMPH x10^3 (test code 1.45 10*3/uL 1.32-3.29 = 731-0) MONO x10^3 (test code 1.06 10*3/uL 0.33-0.92 H = 742-7) EOS x10^3 (test code = 0.43 10*3/uL 0.03-0.39 H 711-2) BASO x10^3 (test code 0.11 10*3/uL 0.01-0.07 H = 704-7) Lab Interpretation Abnormal (test code = 07709-3) [facility] [id number] 01:24:17 Test Item Value Reference Range Interpretation Comments ESR (test code = 50169-6) 8 See_Comment [ Automated message] The system whic h generated this result transmitted ref erence range: 0 - 20 m m/HR. The reference r manuela was not used to interpret this result as normal/abnor mal. Lab Interpretation (test Normal code = 37557-7) [facility]. METABOLIC PANEL (53579)2022-07-31 00:54:01 Test Item Value Reference Range Interpretation Comments NA (test code = 138 mmol/L 135-145 3524310884) K (test code = 4.2 mmol/L 3.5-5.0 7810468963) CL (test code = 103 mmol/L 98-108 0784462091) CO2 TOTAL (test code = 26 mmol/L 23-31 8383036459) AGAP (test code = 9 2-16 1868820364) BUN (test code = 16 mg/dL 7-23 3050647281) GLUCOSE (test code = 123 mg/dL 70-110 H 1387494871) CREATININE (test code = 1.00 mg/dL 0.50-1.04 4692267833) TOTAL BILI (test code = 0.4 mg/dL 0.1-1.5 1180571906) CALCIUM (test code = 9.8 mg/dL 8.6-10.6 9353264718) T PROTEIN (test code = 6.5 g/dL 6.3-8.2 9373732575) ALBUMIN (test code = 4.0 g/dL 3.5-5.0 2634127724) ALK PHOS (test code = 80 U/L 34-122 4709923491) ALTv (test code = 16 U/L 5-35 1742-6) AST(SGOT) (test code = 22 U/L 13-40 7287623426) eGFR (test code = 54.1 mL/min/1.73m2 3997009543) ELLIOT (test code = ELLIOT) Association of [...] tests). Lab Interpretation Abnormal (test code = 02058-3) [facility] WITH [id number] 00:45:39 Test Item Value Reference Range Interpretation Comments WBC (test code = 9.55 See_Comment [Automated 4792-2) message] The sy stem which generated this result transmitted reference range : 4.30 - 11.10 10*3/?L. The reference range was not used to interpret this result as normal/abnormal . RBC (test code = 4.77 See_Comment [Automated 072-8) message] The sy stem which generated this result transmitted reference range : 3.93 - 5.25 10*6/?L. The reference range was not used to interpret this result as normal/abnormal . HGB (test code = 13.9 g/dL 11.6-15.0 718-7) HCT (test code = 42.3 % 35.7-45.2 4544-3) MCV (test code = 88.7 fL 80.6-95.5 787-2) MCH (test code = 29.1 pg 25.9-32.8 785-6) MCHC (test code = 32.9 g/dL 31.6-35.1 786-4) RDW-SD (test code = 42.9 fL 39.0-49.9 50161-6) RDW-CV (test code = 13.1 % 12.0-15.5 788-0) PLT (test code = 318 See_Comment [Automated 296-3) message] The sy stem which generated this result transmitted reference range : 166 - 358 10*3/ ?L. The reference r manuela was not used to interpret this result as normal/abnormal . MPV (test code = 10.7 fL 9.5-12.9 74352-5) NRBC/100 WBC (test 0.0 See_Comment [Automat ed code = 4054152819) message] The system which generated this result transmitted reference range : 0.0 - 10.0 /100 WBCs. The refer ence range was not u sed to interpret th is result as normal/abnormal . NRBC x10^3 (test code See_Comment [Auto mated = 4635558099) message] The s ystem which generated this result transmitted reference range : 10*3/?L. The reference range was not used to interpret this result as normal/abnormal . GRAN MAT (NEUT) % 71.2 % (test code = 770-8) IMM GRAN % (test code 0.40 % = 2815030125) LYMPH % (test code = 13.4 % 736-9) MONO % (test code = 9.4 % 5905-5) EOS % (test code = 4.2 % 713-8) BASO % (test code = 1.4 % 706-2) GRAN MAT x10^3(ANC) 6.80 10*3/uL 1.88-7.09 (test code = 4787854624) IMM GRAN x10^3 (test 0.04 10*3/uL 0.00-0.06 code = 7705695679) LYMPH x10^3 (test code 1.28 10*3/uL 1.32-3.29 L = 731-0) MONO x10^3 (test code 0.90 10*3/uL 0.33-0.92 = 742-7) EOS x10^3 (test code = 0.40 10*3/uL 0.03-0.39 H 711-2) BASO x10^3 (test code 0.13 10*3/uL 0.01-0.07 H = 704-7) Lab Interpretation Abnormal (test code = 89783-8) [facility] [id number] 23:54:00 Test Item Value Reference Range Interpretation Comments Unit ABO (test code = O Pos 1931842) UNIT NUMBER (test code = E708546719376 934-0) Status (test code = 5350672) WORK IN PROGRESS Blood Bank Product (test RED BLOOD CELLS code = 2263) PRODUCT CODE (test code = U8925R08 933-2) CROSSMATCH (test code = COMPATIBLE 2264) [facility] [id number] 23:54:00 Test Item Value Reference Range Interpretation Comments Unit ABO (test code = O Pos 4998427) UNIT NUMBER (test code = P754761524615 934-0) Status (test code = 2019544) WORK IN PROGRESS Blood Bank Product (test RED BLOOD CELLS code = 2263) PRODUCT CODE (test code = S3716B61 933-2) CROSSMATCH (test code = COMPATIBLE 2264) [facility] [id number] 23:54:00 Test Item Value Reference Range Interpretation Comments Unit ABO (test code = O Pos 7014947) UNIT NUMBER (test code = E149336451985 934-0) Status (test code = 4851717) WORK IN PROGRESS Blood Bank Product (test RED BLOOD CELLS code = 2263) PRODUCT CODE (test code = E9509H89 933-2) CROSSMATCH (test code = COMPATIBLE 2264) [facility] [id number] 16:44:00 Test Item Value Reference Range Interpretation Comments ANTIBODY ID Zyiu-UjYqnc-GixC anti-c, ant i-Jkb, (BEAKER) (test nti-c anti-Bg code = 2253) Antibody Consult SIGNED OUT Anti Jkb ca uses RBC (test code = 2479) injury, t ransfuse Jkb negative RBCs.Anti c cau ses RBC injury, transfuse c neg ative RBCs. Anti Bga detected - but this antibody is clinicallty insignificant.E lectr onic Signature: Giorgi Ugarte M.D. [facility] Center[facility]ibody [id number] 16:44:00 Test Item Value Reference Range Interpretation Comments ANTIBODY ID Zwga-NbFlyg-DnkN anti-c, ant i-Jkb, (BEAKER) (test nti-c anti-Bg code = 2253) Antibody Consult SIGNED OUT Anti Jkb ca uses RBC (test code = 2479) injury, t ransfuse Jkb negative RBCs.Anti c cau ses RBC injury, transfuse c neg ative RBCs. Anti Bga detected - but this antibody is clinicallty insignificant.E lectr onic Signature: Giorgi Ugarte M.D. [facility] CenterAntib[facility] [id number] 16:44:00 Test Item Value Reference Range Interpretation Comments ANTIBODY ID Ydiy-TqLqwv-UxbL anti-c, ant i-Jkb, (BEAKER) (test nti-c anti-Bg code = 2253) Antibody Consult SIGNED OUT Anti Jkb ca uses RBC (test code = 2479) injury, t ransfuse Jkb negative RBCs.Anti c cau ses RBC injury, transfuse c neg ative RBCs. Anti Bga detected - but this antibody is clinicallty insignificant.E lectr onic Signature: Giorgi Ugarte M.D. [facility] CenterHEMOGLOBIN [id number] 12:19:10 Test Item Value Reference Range Interpretation Comments HEMOGLOBIN A1C 6.1 % See_Comment H [Automated m essage] ELECTROPHORESIS (AKER) The system which (test code = 3811) generated this result transmitted ref erence range: <=5.6%. The reference range was not used to int erpret this result as normal/abnormal . "The A1c is measured using a NGSP-certified method. HbA1c value equal to or greater than 6.5% as thediagnosis cutoff for diabetes. An HbA1c value of 5.7- 6.4% indicates increased risk for diabetes (prediabetes)."Strawhat Sizer ID - ADMOperator ID - ADMPOC-Glucose [id number] 10:47:05 Test Item Value Reference Range Interpretation Comments POC-Glucose Meter (test 231 mg/dL 70-110 H : TE STED AT [facility] code = 1538) [address] [facility], 770 30: Strawhat Sizer/Techni lyndsay ID = [id number] for Arielle Herzog on Lab Interpretation (test Abnormal code = 95206-9) [facility] Center[facility]-Glucose [id number] 10:47:05 Test Item Value Reference Range Interpretation Comments POC-Glucose Meter (test 231 mg/dL 70-110 H : TE STED AT [facility] code = 1538) [address] [facility], 770 30: Strawhat Sizer/Techni lyndsay ID = [id number] for Arielle Herzog on Lab Interpretation (test Abnormal code = 88428-4) [facility] Center[facility]-Glucose [id number] 10:47:05 Test Item Value Reference Range Interpretation Comments POC-Glucose Meter (test 231 mg/dL 70-110 H : TE STED AT [facility] code = 1538) [address] [facility], 770 30: Strawhat Sizer/Techni lyndsay ID = [id number] for Arielle Herzog on Lab Interpretation (test Abnormal code = 76495-8) [facility]-GLUCOSE [id number] 10:47:05 Test Item Value Reference Range Interpretation Comments POC-GLUCOSE METER 231 mg/dL 70-110 H : TESTED A T [facility] 6720 (BEAKER) (test code = [facility], 1538) [address]: Strawhat Sizer/Techni lyndsay ID = [id number] for Do flynnYvan armstrong POCT-GLUCOSE [id number] 09:39:47 Test Item Value Reference Range Interpretation Comments POC-GLUCOSE METER 211 mg/dL 70-110 H : TESTED A T [facility] 6720 (BEAKER) (test code [facility], = 1538) 89270: Strawhat Sizer/Techni lyndsay ID = [id number] for Derek Soraya blakely [id number] 06:47:20 Test Item Value Reference Range Interpretation Comments MAGNESIUM (BEAKER) (test code = 1.8 mg/dL 1.6-2.6 627) Strawhat Sizer ID - BARBARA MBASIC METABOLIC [id number] 06:47:19 Test Item Value Reference Range Interpretation [...] not appl icable for dialysis patien ts Strawhat Sizer ID - BARBARA [facility] (HEMOGRAM ONLY)2022-01-26 05:00:02 [...] 0-0 (BEAKER) (test code = 413) POCT-GLUCOSE [id number] 04:30:25 Test Item Value Reference Range Interpretation Comments POC-GLUCOSE METER 230 mg/dL 70-110 H : TESTED A T [facility] 6720 (BEAKER) (test code = [facility] [place], 1538) 15188: Strawhat Sizer/Techni lyndsay ID = [id number] for MIS DONALDSON POCT-GLUCOSE [id number] 22:24:40 Test Item Value Reference Range Interpretation Comments POC-GLUCOSE METER 286 mg/dL 70-110 H : TESTED A T [facility] 6720 (BEAKER) (test code = GIRISH Celaya [facility], 1538) 68219: Strawhat Sizer/Techni lyndsay ID = [id number] for MIS DONALDSON RAD, CHEST, 1 VIEW, NON [id number] 18:09:00Reason for exam:->PICC PlacementShould this be performed at the bedside?->Yes [facility] : 1945 Sex: FFINAL REPORT HISTORY: Status post PICC line placement COMPARISON: 12/10/2016 FINDINGS: A left PICC line is present, with its tip in the region of the distal superior vena cava. The lungs are clear. No pleural effusions or pneumothorax. The heart shadow is normal in size. The thoracic aorta is mildly tortuous. Spinal stimulation hardware is present, with the leads projecting at the level of the mid thoracic spine. Signed: [facility] Verified Date/Time: 01/25/2022 18:09:25 POCT-GLUCOSE [id number] 16:50:37 Test Item Value Reference Range Interpretation Comments POC-GLUCOSE METER 151 mg/dL 70-110 H : TESTED A T [facility] 6720 (BIN) (test code = [place], 1538) [address]: Strawhat Sizer/Techni lyndsay ID = [id number] for RIAN LAKHANI SARS-CoV2/RT-PCR ([facility])2022-01-25 15:12:09 Test Item Value Reference Interpretation Comments Range SARS-COV2/RT-PCR Negative Negative The SARS-Co V-2 (test code = target nucleic 29346-1) acids are not detected in thi s [...] revoked sooner. Fact Sheet for Healthcare Providers: https://www.[employer]/Documents/Xp ert%20Xpress%20SAR S%20CoV-2/Fact%20S heets/302-0162%20S ARS-COV-2%20HEALTH CARE%20PROVIDERS%2 0FACT%20SHEET.pdf Fact Sheet for Healthcare Patients: https://www.[employer]/Documents/Xp ert%20Xpress%20SAR S%20CoV-2/Fact%20S heets/302-3801%20S ARS-COV-2%20PATIEN T%20FACT%20SHEET.p df Lab Interpretation Normal (test code = 48662-8) [facility]-25 15:12:09 Test Item Value Reference Interpretation Comments Range SARS-COV2/RT-PCR Negative Negative The SARS-Co V-2 (test code = target nucleic 86396-3) acids are not detected in thi s [...] revoked sooner. Fact Sheet for Healthcare Providers: https://www.[employer]/Documents/Xp ert%20Xpress%20SAR S%20CoV-2/Fact%20S heets/302-3802%20S ARS-COV-2%20HEALTH CARE%20PROVIDERS%2 0FACT%20SHEET.pdf Fact Sheet for Healthcare Patients: https://www.[employer]/Documents/Xp ert%20Xpress%20SAR S%20CoV-2/Fact%20S heets/302-3801%20S ARS-COV-2%20PATIEN T%20FACT%20SHEET.p df Lab Interpretation Normal (test code = 75060-7) [facility])2022-01-25 15:12:09 Test Item Value Reference Interpretation Comments Range SARS-COV2/RT-PCR Negative Negative The SARS-Co V-2 (test code = target nucleic 74358-6) acids are not detected in thi s [...] revoked sooner. Fact Sheet for Healthcare Providers: https://www.[employer]/Documents/Xp ert%20Xpress%20SAR S%20CoV-2/Fact%20S heets/302-3802%20S ARS-COV-2%20HEALTH CARE%20PROVIDERS%2 0FACT%20SHEET.pdf Fact Sheet for Healthcare Patients: https://www.[employer]/Documents/Xp ert%20Xpress%20SAR S%20CoV-2/Fact%20S heets/302-3801%20S ARS-COV-2%20PATIEN T%20FACT%20SHEET.p df Lab Interpretation Normal (test code = 58731-2) [facility])2022-01-25 15:12:09 Test Item Value Reference Range Interpretation Comments SARS-COV2/RT-PCR Negative Negative The SARS-Co V-2 target (test code = nucleic acids a re not 3089636) detected in thi s specimen. Negative result s do not preclude SARS-C oV-2 infection and s hould not be used as the rashaun e basis for patient managem ent decisions. Nega tive results must be combine d with clinical observ ations, patient history , and epidemiological information. A false negativ e result may occur if a spec imen is improperly domi ected, transported or handled. This SARS CoV-2 [...] revoked sooner. Fact Sheet for Healthcare Providers: https://www.[employer]/Documents/Xpert%20Xpress%20SARS%20CoV-2/Fact%20Sheets/849-5792%54MPMA-MHU-0%20 HEALTHCARE%20PROVIDERS%20FACT%20SHEET.pdf Fact Sheet for Healthcare Patients: https://www.[employer]/Documents/Xpert%20Xp ress%20SARS%20CoV-2/Fact%20Sheets/372-3801%37ZZFF-KZQ-0%20PATIENT%20FACT%20SHEET .pdfPOCT-GLUCOSE [id number] 12:11:38 Test Item Value Reference Range Interpretation Comments POC-GLUCOSE METER 270 mg/dL 70-110 H : TESTED A T [facility] 6720 (BEAKER) (test code = [place], 1538) [address]: Strawhat Sizer/Techni lyndsay ID = [id number] for RIAN LAKHANI POCT-GLUCOSE [id number] 05:54:12 Test Item Value Reference Range Interpretation Comments POC-GLUCOSE METER 73 mg/dL 70-110 : TESTED A T [facility] 6720 (BEAKER) (test code = [place], 1538) [address]: Strawhat Sizer/Techni lyndsay ID = [id number] for Kehinde Lisa COMPREHENSIVE METABOLIC [id number] 05:29:07 Test Item Value Reference Range Interpretation [...] not appl icable for dialysis patien ts Strawhat Sizer ID Shayan STACY [id number] 04:42:32 Test Item Value Reference Range Interpretation Comments FERRITIN (BEAKER) (test code = 23.21 ng/mL 5.00-275.00 361) Strawhat Sizer MOLINA PACE, TIBC, % SAT. (WITHOUT FERRITIN)2022-01-25 04:32:43 Test Item Value Reference Range Interpretation Comments IRON (BEAKER) (test code = 547) 19.0 ug/dL 40.0-160.0 L TOTAL IRON BINDING CAPACITY 320 ug/dL 250-450 (BEAKER) (test code = 769) IRON % SATURATION (2) (BEAKER) 6 % 20-55 L (test code = 2590) Strawhat Sizer MOLINA STACY LPT/[id number] 03:53:35 Test Item Value Reference Range Interpretation Comments PROTIME (BEAKER) (test 13.0 seconds 11.9-14.2 code = 759) INR (BEAKER) (test 1.00 See_Comment [Automat ed code = 370) message] [employer] stem which generated this result transmitted reference [...] mechanical heart valves.CBC W/PLT COUNT & AUTO [id number] 03:50:34 Test Item Value Reference Range Interpretation [...] PERCENT (BEAKER) (test code = 2801) POC-Glucose [id number] 08:45:21 Test Item Value Reference Range Interpretation Comments POC-Glucose Meter (test 193 mg/dL 70-110 H : TE STED AT [facility] code = 1538) [address] [place] [address], [address]: Strawhat Sizer/Techni lyndsay ID = [id number] for DEOCOS, SONU NE SATNAM Lab Interpretation (test Abnormal code = 44350-6) [facility]-Glucose [id number] 08:45:21 Test Item Value Reference Range Interpretation Comments POC-Glucose Meter (test 193 mg/dL 70-110 H : TE STED AT [facility] code = 1538) [address] [place] [address], [address]: Strawhat Sizer/Techni lyndsay ID = [id number] for DEOCOS, SONU NE SATNAM Lab Interpretation (test Abnormal code = 43373-6) [facility]-Glucose [id number] 08:45:21 Test Item Value Reference Range Interpretation Comments POC-Glucose Meter (test 193 mg/dL 70-110 H : TE STED AT [facility] code = 1538) [address] [place] [address], [address]: Strawhat Sizer/Techni lyndsay ID = [id number] for DEOCOS, SONU NE SATNAM Lab Interpretation (test Abnormal code = 41639-8) [facility] [id number] 08:45:21 Test Item Value Reference Range Interpretation Comments POC-Glucose Meter (test 193 mg/dL 70-110 H : TE STED AT [facility] code = 1538) [address] [place] [address], [facility] 30: Strawhat Sizer/Techni lyndsay ID = [id number] for DEOCOS, SONU NE SATNAM Lab Interpretation (test Abnormal code = 80913-0) [facility]-GLUCOSE [id number] 08:45:21 Test Item Value Reference Range Interpretation Comments POC-GLUCOSE METER 193 mg/dL 70-110 H : TESTED A T [facility] 6720 (BEAKER) (test code [facility], = 1538) [address]: Strawhat Sizer/Techni lyndsay ID = [id number] for DEOC OS, NICOLA SATNAM POCT-GLUCOSE [id number] 08:45:15 Test Item Value Reference Range Interpretation Comments POC-GLUCOSE METER 165 mg/dL 70-110 H : TESTED A T [facility] 6720 (BEAKER) (test code = [facility]) [address]: Strawhat Sizer/Techni lyndsay ID = [id number] for PE PATRICIA, WALTER POCT-GLUCOSE [id number] 08:45:15 Test Item Value Reference Range Interpretation Comments POC-GLUCOSE METER 142 mg/dL 70-110 H : TESTED A T [facility] 6720 (BEAKER) (test code = [facility]) [address]: Strawhat Sizer/Techni lyndsay ID = [id number] for PE PATRICIA, WALTER POCT-GLUCOSE [id number] 08:45:15 Test Item Value Reference Range Interpretation Comments POC-GLUCOSE METER 136 mg/dL 70-110 H : TESTED A T [facility] 6720 (BEAKER) (test code = [facility]) [address]: Strawhat Sizer/Techni lyndsay ID = [id number] for TH OMPSON, FLORENCE POCT-GLUCOSE [id number] 08:45:14 Test Item Value Reference Range Interpretation Comments POC-GLUCOSE METER 250 mg/dL 70-110 H : TESTED A T [facility] 6720 (BEAKER) (test code = [facility]) [address]: Strawhat Sizer/Techni lyndsay ID = [id number] for TH OMPSON, FLORENCE POCT-GLUCOSE [id number] 08:45:14 Test Item Value Reference Range Interpretation Comments POC-GLUCOSE METER 139 mg/dL 70-110 H : TESTED A T [facility] 6720 (BEAKER) (test code = [facility]) [address]: Strawhat Sizer/Techni lyndsay ID = [id number] for Zully Spearuard2022-08-03 00:00:00resultCOMP. METABOLIC PANEL (37972)2021-08-04 04:03:33 Test Item Value Reference Range Interpretation Comments NA (test code = 131 mmol/L 135-145 L 9025190936) K (test code = 5.3 mmol/L 3.5-5.0 H 4621349780) CL (test code = 97 mmol/L 98-108 L 1860189592) CO2 TOTAL (test code = 23 mmol/L 23-31 0734147320) AGAP (test code = 2-16 8417160992) BUN (test code = 23 mg/dL 7-23 6937154486) GLUCOSE (test code = 418 mg/dL 70-110 H 2322543928) CREATININE (test code = 1.05 mg/dL 0.50-1.04 H 3530927910) TOTAL BILI (test code = 0.4 mg/dL 0.1-1.8 3026872598) CALCIUM (test code = 9.8 mg/dL 8.6-10.6 1581581368) T PROTEIN (test code = 6.5 g/dL 6.3-8.2 3876290061) ALBUMIN (test code = 4.1 g/dL 3.5-5.0 9198752918) ALK PHOS (test code = 82 U/L 34-122 1043251847) ALTv (test code = 14 U/L 5-35 2-6) AST(SGOT) (test code = 17 U/L 13-40 5618317990) eGFR (test code = mL/min/1.73m2 0013699373) ELLIOT (test code = ELLIOT) Association of [...] tests). Lab Interpretation Abnormal (test code = 33351-6) [facility] 04:02:53 Test Item Value Reference Range Interpretation Comments LIPASE (test code = 9174947147) 396 U/L 0-220 H Lab Interpretation (test code = Abnormal 77534-3) [facility] WITH [id number] 03:45:51 Test Item Value Reference Range Interpretation [...] (test code = 50.9 fL 39.0-49.9 H 80522-1) RDW-CV (test code = 15.7 % 12.0-15.5 H 788-0) PLT (test code = See_Comment H [Automated 777-3) message] The system which generated this result transmit bruna reference range : 166 - 358 10*3/ ?L. The reference range was not u sed to interpret th is result as normal/abnormal . MPV (test code = 10.4 fL 9.5-12.9 88382-0) NRBC/100 WBC (test See_Comment [Automat ed code = 8379760837) message] The system which generated this result transmit bruna reference range : 0.0 - 10.0 /100 WBCs. The reference range was not used to interpret this result as normal/abnormal . NRBC x10^3 (test code See_Comment [Auto mated = 5861232825) message] The system which generated this result transmit bruna reference range : 10*3/?L. The reference range was not used to interpret this result as normal/abnormal . GRAN MAT (NEUT) % 80.7 % (test code = 770-8) IMM GRAN % (test code 0.60 % = 0686814770) LYMPH % (test code = 9.4 % 736-9) MONO % (test code = 6.6 % 5905-5) EOS % (test code = 1.8 % 713-8) BASO % (test code = 0.9 % 706-2) GRAN MAT x10^3(ANC) 13.34 10*3/uL 1.88-7.09 H (test code = 7856686663) IMM GRAN x10^3 (test 0.10 10*3/uL 0.00-0.06 H code = 4222582084) LYMPH x10^3 (test code 1.55 10*3/uL 1.32-3.29 = 731-0) MONO x10^3 (test code 1.09 10*3/uL 0.33-0.92 H = 742-7) EOS x10^3 (test code = 0.29 10*3/uL 0.03-0.39 711-2) BASO x10^3 (test code 0.15 10*3/uL 0.01-0.07 H = 704-7) Lab Interpretation Abnormal (test code = 30449-1) [facility] [id number] 08:26:00 Test Item Value Reference Range Interpretation Comments POC-GLUCOSE METER 175 mg/dL 70-110 H TESTED AT [facility] 6720 (BIN) (test code = [place] 1538) [address] [id number] 07:30:00 Test Item Value Reference Range Interpretation Comments MAGNESIUM (BEAKER) 1.8 mg/dL 1.6-2.6 Specimen slightly (test code = 627) hemolyzed [id number] 07:30:00 Test Item Value Reference Range Interpretation Comments PHOSPHORUS (BEAKER) 3.2 mg/dL 2.3-4.7 Specimen slightly (test code = 604) hemolyzed BASIC METABOLIC [id number] 07:30:00 Test Item Value Reference Range Interpretation [...] PATIEN TS. CBC W/PLT COUNT & AUTO [id number] 06:50:00 Test Item Value Reference Range Interpretation [...] PERCENT (BEAKER) (test code = 2801) POCT-GLUCOSE [id number] 21:15:00 Test Item Value Reference Range Interpretation Comments POC-GLUCOSE METER 246 mg/dL 70-110 H TESTED AT [place] [address] ([facility]) ([facility] 1538) [address] POCT-GLUCOSE [id number] 17:16:00 Test Item Value Reference Range Interpretation Comments POC-GLUCOSE METER 323 mg/dL 70-110 H TESTED AT [facility] 6720 ([facility]) (test code = [facility] Belia [facility] 1538) [address] POCT-GLUCOSE [id number] 13:13:00 Test Item Value Reference Range Interpretation Comments POC-GLUCOSE METER 250 mg/dL 70-110 H TESTED AT [facility] 6720 (BEAKER) (test code = [place] [facility] 1538) [address] POCT-GLUCOSE [id number] 08:26:00 Test Item Value Reference Range Interpretation Comments POC-GLUCOSE METER 261 mg/dL 70-110 H TESTED AT [facility] 6720 (BEAKER) (test code = [place] [facility] 1538) [address] CALCIUM, [id number] 06:39:00 Test Item Value Reference Range Interpretation Comments CALCIUM IONIZED (BEAKER) (test 1.08 mmol/L 1.12-1.27 L code = 698) PH, BLOOD (BEAKER) (test code = 7.47 1810) [id number] 05:53:00 Test Item Value Reference Range Interpretation Comments PHOSPHORUS (BEAKER) (test code = 4.1 mg/dL 2.3-4.7 604) [id number] 05:53:00 Test Item Value Reference Range Interpretation Comments MAGNESIUM (BEAKER) (test code = 1.7 mg/dL 1.6-2.6 627) BASIC METABOLIC [id number] 05:53:00 Test Item Value Reference Range Interpretation [...] PATIEN TS. CBC W/PLT COUNT & AUTO [id number] 05:32:00 Test Item Value Reference Range Interpretation [...] (test code = 416) BASOPHILS ABSOLUTE COUNT ([facility]) 0.07 K/ L 0.01-0.08 (test code = 417) IMMATURE GRANULOCYTES-RELATIVE 0 % 0-1 PERCENT ([facility]) (test code = 2801) POCT-GLUCOSE [id number] 22:58:00 Test Item Value Reference Range Interpretation Comments POC-GLUCOSE METER 390 mg/dL 70-110 H Notified R N or ([facility]) (test code = [place] [facility] 1538) test/TESTED AT [address] [address] POCT-GLUCOSE [id number] 21:18:00 Test Item Value Reference Range Interpretation Comments POC-GLUCOSE METER 404 mg/dL 70-110 HH Notified R N MD/TESTED ([facility]) (test code = AT [address] 1538) [facility] [address] POCT-GLUCOSE [id number] 17:45:00 Test Item Value Reference Range Interpretation Comments POC-GLUCOSE METER 217 mg/dL 70-110 H TESTED AT [place] [address] ([facility]) (test code = [facility] 1538) [address] POCT-GLUCOSE [id number] 12:07:00 Test Item Value Reference Range Interpretation Comments POC-GLUCOSE METER 209 mg/dL 70-110 H TESTED AT [place] [address] ([facility]) (test code = [facility] 1538) [address] HEMOGLOBIN [id number] 07:58:00 Test Item Value Reference Range Interpretation Comments HEMOGLOBIN A1C ([facility]) (test code = 5.8 % 4.3-6.1 368) TSH/FREE T4 IF [id number] 05:30:00 Test Item Value Reference Range Interpretation Comments THYROID STIMULATING HORMONE 1.75 uIU/mL 0.35-4.94 ([facility]) (test code = 772) POCT-GLUCOSE [id number] 05:21:00 Test Item Value Reference Range Interpretation Comments POC-GLUCOSE METER 213 mg/dL 70-110 H TESTED AT [place] [address] ([facility]) (test code = [facility] 1538) [address] [id number] 05:11:00 Test Item Value Reference Range Interpretation Comments PHOSPHORUS (BEAKER) (test code = 4.0 mg/dL 2.3-4.7 604) [id number] 05:11:00 Test Item Value Reference Range Interpretation Comments MAGNESIUM (BEAKER) (test code = 1.7 mg/dL 1.6-2.6 627) BASIC METABOLIC [id number] 05:11:00 Test Item Value Reference Range Interpretation [...] NOT APPLICABLE FOR DIALYSIS PATIEN TS. LIPID [id number] 05:11:00 Test Item Value Reference Range Interpretation [...] Very High >=190CBC W/PLT COUNT & AUTO [id number] 04:48:00 Test Item Value Reference Range Interpretation [...] 417) IMMATURE GRANULOCYTES-RELATIVE 0 % 0-1 PERCENT ([facility]) (test code = 2801) CALCIUM, [id number] 04:13:00 Test Item Value Reference Range Interpretation Comments CALCIUM IONIZED (BEAKER) (test 1.15 mmol/L 1.12-1.27 code = 698) PH, BLOOD ([facility]) (test code = 7.47 1810) POCT-GLUCOSE [id number] 21:03:00 Test Item Value Reference Range Interpretation Comments POC-GLUCOSE METER 220 mg/dL 70-110 H TESTED AT [place] [address] ([facility]) (test code = [facility] 1538) [address] IRON, TIBC, % SAT. (WITHOUT FERRITIN)2016-12-13 19:01:00 Test Item Value Reference Range Interpretation Comments IRON (BEAKER) (test code = 547) 23 ug/dL 40-160 L TOTAL IRON BINDING CAPACITY 404 ug/dL 250-450 [facility] (test code = 769) IRON % SATURATION (2) ([facility]) 6 % 20-55 L (test code = 2590) POCT-GLUCOSE [id number] 17:23:00 Test Item Value Reference Range Interpretation Comments POC-GLUCOSE METER 371 mg/dL 70-110 H TESTED AT [place] [address] ([facility]) (test code = [facility] 1538) [address] POCT-GLUCOSE [id number] 05:33:00 Test Item Value Reference Range Interpretation Comments POC-GLUCOSE METER 227 mg/dL 70-110 H TESTED AT [address] ([facility]) (test code [facility] [place] = 1538) [address] POCT-GLUCOSE [id number] 20:59:00 Test Item Value Reference Range Interpretation Comments POC-GLUCOSE METER 266 mg/dL 70-110 H TESTED AT [address] ([facility]) (test code [facility] [place] = 1538) [address] POCT-GLUCOSE [id number] 20:58:00 Test Item Value Reference Range Interpretation Comments POC-GLUCOSE METER 300 mg/dL 70-110 H TESTED AT [address] ([facility]) (test code [facility] [place] = 1538) [address] POCT-GLUCOSE [id number] 20:58:00 Test Item Value Reference Range Interpretation Comments POC-GLUCOSE METER 177 mg/dL 70-110 H TESTED AT [address] ([facility]) (test code [facility] [place] = 1538) [address] HEMORRHAGE IMAGING, [id number] 13:30:00FINAL REPORT PROCEDURE: HEMORRHAGE STUDY with RBCs CPT CODE: 74366 INDICATION: G astrointestinal Bleeding PROTOCOL: 21.5 mCi [...] MDReport Verified Date/Time: 12/12/2016 13:30:53 Reading Location: [address] Reading Room POCT-GLUCOSE [id number] 11:21:00 Test Item Value Reference Range Interpretation Comments POC-GLUCOSE METER 168 mg/dL 70-110 H TESTED AT [address] ([facility]) (test code [facility] [place] = 1538) [address] POCT-GLUCOSE [id number] 11:21:00 Test Item Value Reference Range Interpretation Comments POC-GLUCOSE METER 184 mg/dL 70-110 H TESTED AT [address] ([facility]) (test code [facility] [place] = 1538) [address] BASIC METABOLIC [id number] 05:16:00 Test Item Value Reference Range Interpretation [...] S NOT APPLICABLE FOR DIALYSIS PATIEN TS. [id number] 05:10:00 Test Item Value Reference Range Interpretation Comments MAGNESIUM (BEAKER) (test code = 2.0 mg/dL 1.5-3.0 627) CBC W/PLT COUNT & AUTO [id number] 04:57:00 Test Item Value Reference Range Interpretation [...] L 0.00-0.20 (test code = 417) POCT-GLUCOSE [id number] 17:02:00 Test Item Value Reference Range Interpretation Comments POC-GLUCOSE METER 177 mg/dL 70-110 H TESTED AT [address] ([facility]) (test code [facility] [place] = 1538) [address] POCT-GLUCOSE [id number] 11:34:00 Test Item Value Reference Range Interpretation Comments POC-GLUCOSE METER 207 mg/dL 70-110 H TESTED AT [address] ([facility]) (test code [facility] [place] = 1538) [address] CBC W/PLT COUNT & AUTO [id number] 10:45:00 Test Item Value Reference Range Interpretation [...] code = 2+ moderate 963) BASIC METABOLIC [id number] 09:40:00 Test Item Value Reference Range Interpretation [...] S NOT APPLICABLE FOR DIALYSIS PATIEN TS. [id number] 09:39:00 Test Item Value Reference Range Interpretation Comments PHOSPHORUS (BEAKER) (test code = 3.3 mg/dL 2.5-4.5 604) [id number] 09:34:00 Test Item Value Reference Range Interpretation Comments MAGNESIUM (BEAKER) (test code = 2.1 mg/dL 1.5-3.0 627) POCT-GLUCOSE [id number] 06:01:00 Test Item Value Reference Range Interpretation Comments POC-GLUCOSE METER 171 mg/dL 70-110 H TESTED AT [address] ([facility]) (test code [facility] [place] = 1538) [address] POCT-GLUCOSE [id number] 06:00:00 Test Item Value Reference Range Interpretation Comments POC-GLUCOSE METER 148 mg/dL 70-110 H TESTED AT [address] ([facility]) (test code [facility] [place] = 1538) [address] URINALYSIS W/ [id number] 05:01:00 Test Item Value Reference Range Interpretation [...] = 2795) RAD, CHEST, 1 VIEW, NON [id number] 21:04:00Reason for exam:->coughShould this be performed at [...] disease or interval change. Signed: Sam Sanchez Verified Date/Time: 12/10/2016 21:04:27 Reading Location: [address] Consult Reading Room OCCULT BLOOD, [id number] 20:24:00 Test Item Value Reference Range Interpretation Comments FECAL OCCULT BLOOD (BEAKER) (test Positive Negative A code = 618) CBC W/PLT COUNT & AUTO [id number] 20:10:00 Test Item Value Reference Range Interpretation [...] 487) LARGE PLT(BEAKER) (test code = Present 6) GIANT PLATELETS (BEAKER) (test Present code = 313) ANISOCYTOSIS (BEAKER) (test code 1+ few = 961) HYPOCHROMIA (BEAKER) (test code = 2+ moderate 963) POLYCHROMATOPHILLIC RBCS(BEAKER) 1+ few (test code = 478) [id number] 20:07:00 Test Item Value Reference Range Interpretation [...] is 2.5-3.5 for patients with mechanical heart valves.[id number] 20:07:00 Test Item Value Reference Range Interpretation Comments LIPASE (BEAKER) (test code = 749) 37 U/L 6-51 COMPREHENSIVE METABOLIC [id number] 20:06:00 Test Item Value Reference Range Interpretation [...] NOT APPLICABLE FOR DIALYSIS PATIEN TS. BLOOD [id number] 06:00:00 Test Item Value Reference Range Interpretation Comments CULTURE (BEAKER) (test No growth in 5 days code = 1095) BLOOD [id number] 06:00:00 Test Item Value Reference Range Interpretation Comments CULTURE (BEAKER) (test No growth in 5 days code = 1095) POCT-GLUCOSE [id number] 12:19:00 Test Item Value Reference Range Interpretation Comments POC-GLUCOSE METER 132 mg/dL 70-110 H TESTED AT [place] [address] ([facility]) (test code = [facility] 1538) [id number] POCT-GLUCOSE [id number] 11:19:00 Test Item Value Reference Range Interpretation Comments POC-GLUCOSE METER 222 mg/dL 70-110 H TESTED AT [place] [address] ([facility]) (test code = [facility] [place] [facility] 1538) [id number] POCT-GLUCOSE [id number] 07:21:00 Test Item Value Reference Range Interpretation Comments POC-GLUCOSE METER 309 mg/dL 70-110 H Notified R Jose FELIX/TESTED ([facility]) (test code = AT [facility] [address] [facility] 1538) [facility] 7703 0 CBC W/PLT COUNT & AUTO [id number] 05:52:00 Test Item Value Reference Range Interpretation [...] PERCENT (BEAKER) (test code = 2801) POCT-GLUCOSE [id number] 21:36:00 Test Item Value Reference Range Interpretation Comments POC-GLUCOSE METER 284 mg/dL 70-110 H TESTED AT [facility] 6720 (BEAKER) (test code = [place] 1538) [address] POCT-GLUCOSE [id number] 17:03:00 Test Item Value Reference Range Interpretation Comments POC-GLUCOSE METER 394 mg/dL 70-110 H Notified R Jose MD/TESTED (BEAKER) (test code = AT [address] 1538) [facility] 7703 0 POCT-GLUCOSE [id number] 11:47:00 Test Item Value Reference Range Interpretation Comments POC-GLUCOSE METER 332 mg/dL 70-110 H Notified R N MD/TESTED (BEAKER) (test code = AT [address] 1538) [facility] 7703 0 POCT-GLUCOSE [id number] 07:19:00 Test Item Value Reference Range Interpretation Comments POC-GLUCOSE METER 350 mg/dL 70-110 H Notified R Jose MD/TESTED (BEAKER) (test code = AT [address] 1538) [facility] 7703 0 BASIC METABOLIC [id number] 05:27:00 Test Item Value Reference Range Interpretation [...] PATIEN TS. CBC W/PLT COUNT & AUTO [id number] 05:05:00 Test Item Value Reference Range Interpretation [...] PERCENT (BEAKER) (test code = 2801) POCT-GLUCOSE [id number] 22:29:00 Test Item Value Reference Range Interpretation Comments POC-GLUCOSE METER 256 mg/dL 70-110 H TESTED AT [place] [address] [facility] (test code = GIRISH Celaya [facility] 1538) [address] POCT-GLUCOSE [id number] 18:52:00 Test Item Value Reference Range Interpretation Comments POC-GLUCOSE METER 366 mg/dL 70-110 H Notified R Jose FELIX/TESTED ([facility]) (test code = AT [place] [address]) [facility] 7703 0 POCT-GLUCOSE [id number] 12:02:00 Test Item Value Reference Range Interpretation Comments POC-GLUCOSE METER 399 mg/dL 70-110 H Notified R Jose FELIX/TESTED ([facility]) (test code = AT [place] [address]) [facility] 7703 0 POCT-GLUCOSE [id number] 09:06:00 Test Item Value Reference Range Interpretation Comments POC-GLUCOSE METER 236 mg/dL 70-110 H TESTED AT [place] [address] ([facility]) (test code = GIRISH Celaya [place] 717158) [address] POCT-GLUCOSE [id number] 08:28:00 Test Item Value Reference Range Interpretation Comments POC-GLUCOSE METER 271 mg/dL 70-110 H TESTED AT [place] [address] ([facility]) (test code = GIRISH Celaya [place] 717158) [address] POCT-GLUCOSE [id number] 06:31:00 Test Item Value Reference Range Interpretation Comments POC-GLUCOSE METER 236 mg/dL 70-110 H TESTED AT [place] [address] ([facility]) (test code = GIRISH Celaya [place] [address]) [address] BASIC METABOLIC [id number] 05:14:00 Test Item Value Reference Range Interpretation [...] APPLICABLE FOR DIALYSIS PATIEN TS. HEMOGLOBIN AND [id number] 05:02:00 Test Item Value Reference Range Interpretation Comments HEMOGLOBIN (BEAKER) (test code = 7.9 GM/DL 11.2-15.7 L 410) HEMATOCRIT (BEAKER) (test code = 25.5 % 34.1-44.9 L 411) POCT-GLUCOSE [id number] 22:05:00 Test Item Value Reference Range Interpretation Comments POC-GLUCOSE METER 235 mg/dL 70-110 H TESTED AT [place] [address] ([facility]) [facility] 1538) [address] POCT-GLUCOSE [id number] 21:56:00 Test Item Value Reference Range Interpretation Comments POC-GLUCOSE METER 274 mg/dL 70-110 H TESTED AT [place] [address] ([facility]) (test code = [facility] [place] 1538) [address] HEMOGLOBIN AND [id number] 21:00:00 Test Item Value Reference Range Interpretation Comments HEMOGLOBIN (BEAKER) (test code = 7.9 GM/DL 11.2-15.7 L 410) HEMATOCRIT (BEAKER) (test code = 26.1 % 34.1-44.9 L 411) POCT-GLUCOSE [id number] 17:28:00 Test Item Value Reference Range Interpretation Comments POC-GLUCOSE METER 291 mg/dL 70-110 H TESTED AT [place] [address] ([facility]) (test code = [facility] [place] 1538) [address] VANCOMYCIN LEVEL, [id number] 14:15:00 Test Item Value Reference Range Interpretation Comments VANCOMYCIN TROUGH (BEAKER) (test 18.1 ug/mL 10.0-20.0 code = 522) HEMOGLOBIN AND [id number] 13:53:00 Test Item Value Reference Range Interpretation Comments HEMOGLOBIN (BEAKER) (test code = 8.6 GM/DL 11.2-15.7 L 410) HEMATOCRIT (BEAKER) (test code = 28.0 % 34.1-44.9 L 411) POCT-GLUCOSE [id number] 06:09:00 Test Item Value Reference Range Interpretation Comments POC-GLUCOSE METER 205 mg/dL 70-110 H TESTED AT [facility] 6720 (BEAKER) (test code = [place] 1538) [address] BASIC METABOLIC [id number] 03:51:00 Test Item Value Reference Range Interpretation [...] PATIEN TS. CBC W/PLT COUNT & AUTO [id number] 03:28:00 Test Item Value Reference Range Interpretation [...] PERCENT (BEAKER) (test code = 2801) POCT-GLUCOSE [id number] 00:46:00 Test Item Value Reference Range Interpretation Comments POC-GLUCOSE METER 331 mg/dL 70-110 H TESTED AT [facility] 6720 (BEAKER) (test code = [place] 1538) [address] HEMOGLOBIN AND [id number] 23:35:00 Test Item Value Reference Range Interpretation Comments HEMOGLOBIN (BEAKER) (test code = 8.0 GM/DL 11.2-15.7 L 410) HEMATOCRIT (BEAKER) (test code = 24.9 % 34.1-44.9 L 411) POCT-GLUCOSE [id number] 18:09:00 Test Item Value Reference Range Interpretation Comments POC-GLUCOSE METER 391 mg/dL 70-110 H Notified R Jose FELIX/TESTED (BEAKER) (test code = AT [facility] [address] [facility] 1538) [facility] 7703 0 HEMOGLOBIN AND [id number] 16:39:00 Test Item Value Reference Range Interpretation Comments HEMOGLOBIN (BEAKER) (test code = 6.7 GM/DL 11.2-15.7 L 410) HEMATOCRIT (BEAKER) (test code = 22.4 % 34.1-44.9 L 411) POCT-GLUCOSE [id number] 12:39:00 Test Item Value Reference Range Interpretation Comments POC-GLUCOSE METER 238 mg/dL 70-110 H TESTED AT [facility] 6720 (BEAKER) (test code = GIRISH Celaya [facility] 1538) [address] HEMOGLOBIN AND [id number] 11:15:00 Test Item Value Reference Range Interpretation Comments HEMOGLOBIN (BEAKER) (test code = 7.5 GM/DL 11.2-15.7 L 410) HEMATOCRIT (BEAKER) (test code = 24.9 % 34.1-44.9 L 411) CBC W/PLT COUNT & AUTO [id number] 07:49:00 Test Item Value Reference Range Interpretation [...] PERCENT (BEAKER) (test code = 2801) POCT-GLUCOSE [id number] 06:45:00 Test Item Value Reference Range Interpretation Comments POC-GLUCOSE METER 205 mg/dL 70-110 H TESTED AT [facility] 6720 (BEAKER) (test code = GIRISH Celaya [facility] 1538) [address] LACTIC ACID, VENOUS, WHOLE [id number] 01:37:00 Test Item Value Reference Range Interpretation Comments LACTATE BLOOD VENOUS (2) (BEAKER) 1.9 mmol/L 0.5-2.2 (test code = 2872) Effective 07/31/2015: Units/Reference Range ChangeNew: 0.5-2.2 mmol/L Previous: 5- 20 mg/dLCOMPREHENSIVE METABOLIC [id number] 00:19:00 Test Item Value Reference Range Interpretation [...] S NOT APPLICABLE FOR DIALYSIS PATIEN TS. [id number] 00:17:00 Test Item Value Reference Range Interpretation Comments PHOSPHORUS (BEAKER) (test code = 3.2 mg/dL 2.3-4.7 604) [id number] 00:17:00 Test Item Value Reference Range Interpretation Comments MAGNESIUM (BEAKER) (test code = 2.1 mg/dL 1.6-2.6 627) POCT-GLUCOSE [id number] 00:17:00 Test Item Value Reference Range Interpretation Comments POC-GLUCOSE METER 200 mg/dL 70-110 H TESTED AT [facility] 6720 (BEAKER) (test code = [place] 1538) [address] PROTHROMBIN [id number] 00:07:00 Test Item Value Reference Range Interpretation [...] mechanical heart valves.CBC W/PLT COUNT & AUTO [id number] 00:03:00 Test Item Value Reference Range Interpretation [...] PERCENT (BEAKER) (test code = 2801) POCT-GLUCOSE [id number] 11:41:00 Test Item Value Reference Range Interpretation Comments POC-GLUCOSE METER 259 mg/dL 70-110 H TESTED AT [facility] 6720 (BEAKER) (test code = [place] 1538) [address] [id number] 07:35:00 Test Item Value Reference Range Interpretation Comments PHOSPHORUS (BEAKER) (test code = 3.5 mg/dL 2.3-4.7 604) [id number] 07:35:00 Test Item Value Reference Range Interpretation Comments MAGNESIUM (BEAKER) (test code = 1.6 mg/dL 1.6-2.6 627) BASIC METABOLIC [id number] 07:35:00 Test Item Value Reference Range Interpretation [...] NOT APPLICABLE FOR DIALYSIS PATIEN TS. POCT-GLUCOSE [id number] 07:33:00 Test Item Value Reference Range Interpretation Comments POC-GLUCOSE METER 247 mg/dL 70-110 H TESTED AT [facility] 6720 (AKER) (test code = GIRISH Celaya [place] 1538) [address] CBC W/PLT COUNT & AUTO [id number] 06:53:00 Test Item Value Reference Range Interpretation [...] PERCENT (BEAKER) (test code = 2801) POCT-GLUCOSE [id number] 21:09:00 Test Item Value Reference Range Interpretation Comments POC-GLUCOSE METER 398 mg/dL 70-110 H Patient on insulin ([facility]) (test code = Drip/T ESTED AT [place] [address]) 6720 [facility] [address] POCT-GLUCOSE [id number] 17:42:00 Test Item Value Reference Range Interpretation Comments POC-GLUCOSE METER 341 mg/dL 70-110 H TESTED AT [place] [address] ([facility]) (test code = [facility] Belia [facility] 1538) [address] POCT-GLUCOSE [id number] 12:03:00 Test Item Value Reference Range Interpretation Comments POC-GLUCOSE METER 285 mg/dL 70-110 H TESTED AT [facility] 67 ([facility]) (test code = [facility] 1538) [address] POCT-GLUCOSE [id number] 06:11:00 Test Item Value Reference Range Interpretation Comments POC-GLUCOSE METER 335 mg/dL 70-110 H TESTED AT [facility] 67 ([facility]) (test code = [facility] 1538) [address] [id number] 05:12:00 Test Item Value Reference Range Interpretation Comments PHOSPHORUS (BEAKER) (test code = 4.0 mg/dL 2.3-4.7 604) [id number] 05:12:00 Test Item Value Reference Range Interpretation Comments MAGNESIUM (BEAKER) (test code = 1.5 mg/dL 1.6-2.6 L 627) BASIC METABOLIC [id number] 05:12:00 Test Item Value Reference Range Interpretation [...] PATIEN TS. CBC W/PLT COUNT & AUTO [id number] 04:40:00 Test Item Value Reference Range Interpretation [...] PERCENT (BEAKER) (test code = 2801) POCT-GLUCOSE [id number] 21:37:00 Test Item Value Reference Range Interpretation Comments POC-GLUCOSE METER 271 mg/dL 70-110 H TESTED AT [place] [address] ([facility]) (test code = GIRISH Celaya [facility] 1538) [address] POCT-GLUCOSE [id number] 17:40:00 Test Item Value Reference Range Interpretation Comments POC-GLUCOSE METER 273 mg/dL 70-110 H TESTED AT [place] [address] ([facility]) (test code = GIRISH Celaya [facility] 1538) [address] POCT-GLUCOSE [id number] 12:52:00 Test Item Value Reference Range Interpretation Comments POC-GLUCOSE METER 303 mg/dL 70-110 H TESTED AT [place] [address] ([facility]) (test code = LILACRIST[place] Celaya [facility] 1538) [address] POCT-GLUCOSE [id number] 08:44:00 Test Item Value Reference Range Interpretation Comments POC-GLUCOSE METER 306 mg/dL 70-110 H Notified R Jose FELIX/TESTED (AKER) (test code = AT [facility] 67[address] [place] [address]) [place] [address] [id number] 04:53:00 Test Item Value Reference Range Interpretation Comments PHOSPHORUS (BEAKER) (test code = 4.0 mg/dL 2.3-4.7 604) [id number] 04:53:00 Test Item Value Reference Range Interpretation Comments MAGNESIUM (BEAKER) (test code = 1.7 mg/dL 1.6-2.6 627) BASIC METABOLIC [id number] 04:53:00 Test Item Value Reference Range Interpretation [...] PATIEN TS. CBC W/PLT COUNT & AUTO [id number] 04:38:00 Test Item Value Reference Range Interpretation [...] PERCENT (BEAKER) (test code = 2801) POCT-GLUCOSE [id number] 21:24:00 Test Item Value Reference Range Interpretation Comments POC-GLUCOSE METER 307 mg/dL 70-110 H Notified Belia Adams MD/TESTED (BEAKER) (test code = AT [facility] [address] [place]) [place] [address] POCT-GLUCOSE [id number] 17:52:00 Test Item Value Reference Range Interpretation Comments POC-GLUCOSE METER 224 mg/dL 70-110 H TESTED AT [facility] 6720 (BEAKER) (test code = GIRISH Celaya [facility] 1538) [address] POCT-GLUCOSE [id number] 12:46:00 Test Item Value Reference Range Interpretation Comments POC-GLUCOSE METER 250 mg/dL 70-110 H TESTED AT [facility] 6720 (BEAKER) (test code = GIRISH Celaya [facility] 1538) [address] POCT-GLUCOSE [id number] 08:44:00 Test Item Value Reference Range Interpretation Comments POC-GLUCOSE METER 319 mg/dL 70-110 H Notified R Jose FELIX/TESTED (BEAKER) (test code = AT [facility] 67[address] [facility] 7[address] 0 [id number] 05:35:00 Test Item Value Reference Range Interpretation Comments PHOSPHORUS (BEAKER) (test code = 3.8 mg/dL 2.3-4.7 604) [id number] 05:35:00 Test Item Value Reference Range Interpretation Comments MAGNESIUM (BEAKER) (test code = 1.8 mg/dL 1.6-2.6 627) BASIC METABOLIC [id number] 05:35:00 Test Item Value Reference Range Interpretation [...] PATIEN TS. CBC W/PLT COUNT & AUTO [id number] 04:52:00 Test Item Value Reference Range Interpretation [...] 417) IMMATURE GRANULOCYTES-RELATIVE 0 % 0-1 PERCENT ([facility]) (test code = 2801) POCT-GLUCOSE [id number] 21:33:00 Test Item Value Reference Range Interpretation Comments POC-GLUCOSE METER 195 mg/dL 70-110 H TESTED AT [place] [address] ([facility]) (test code = GIRISH Celaya [facility] 1538) [address] POCT-GLUCOSE [id number] 20:09:00 Test Item Value Reference Range Interpretation Comments POC-GLUCOSE METER 268 mg/dL 70-110 H TESTED AT [place] [address] ([facility]) (test code = GIRISH Celaya [facility] 1538) [address] POCT-GLUCOSE [id number] 17:13:00 Test Item Value Reference Range Interpretation Comments POC-GLUCOSE METER 400 mg/dL 70-110 HH TESTED AT [place] [address] ([facility]) (test code = GIRISH Celaya [facility] 1538) [address] POCT-GLUCOSE [id number] 10:55:00 Test Item Value Reference Range Interpretation Comments POC-GLUCOSE METER 216 mg/dL 70-110 H TESTED AT [place] [address] ([facility]) (test code = GIRISH Celaya [facility] 1538) [address] POCT-GLUCOSE [id number] 07:07:00 Test Item Value Reference Range Interpretation Comments POC-GLUCOSE METER 240 mg/dL 70-110 H TESTED AT [place] [address] ([facility]) (test code = GIRISH Celaya [facility] 1538) [address] POCT-GLUCOSE [id number] 06:13:00 Test Item Value Reference Range Interpretation Comments POC-GLUCOSE METER 249 mg/dL 70-110 H TESTED AT [place] [address] ([facility]) (test code = LILAMN Belia [facility] 1538) [address] [id number] 05:36:00 Test Item Value Reference Range Interpretation Comments [facility]US [facility] (test code = 3.5 mg/dL 2.3-4.7 604) [id number] 05:36:00 Test Item Value Reference Range Interpretation Comments MAGNESIUM ([facility] (test code = 1.7 mg/dL 1.6-2.6 627) BASIC METABOLIC [id number] 05:36:00 Test Item Value Reference Range Interpretation Comments SODIUM ([facility]) 138 meq/L 136-145 (test code = 381) [...] PATIEN TS. CBC W/PLT COUNT & AUTO [id number] 05:19:00 Test Item Value Reference Range Interpretation [...] (BEAKER) (test code = 2801) COMPREHENSIVE METABOLIC [id number] 23:04:00 Test Item Value Reference Range Interpretation [...] NOT APPLICABLE FOR DIALYSIS PATIEN TS. PROTHROMBIN [id number] 22:57:00 Test Item Value Reference Range Interpretation Comments PROTIME (BEAKER) (test code = 14.1 seconds 11.7-14.7 759) INR (BEAKER) (test code = 370) 1.1 <=5.9 RECOMMENDED COUMADIN/WARFARIN INR THERAPY RANGESSTANDARD DOSE: 2.0 - 3.0 Includes: PROPHYLAXIS for venous thrombosis, systemic embolization; TREATMENT for venous thrombosis and/or pulmonary embolus.HIGH RISK: Target INR is 2.5-3.5 for patients with mechanical heart valves.CBC W/PLT COUNT & AUTO [id number] 22:51:00 Test Item Value Reference Range Interpretation [...] COVID 19 Antigen + Flu by Pam Notes Date/Time Note Provider Source 2016-12-11 08:14:00-00:00 YULIET BRITT [facility] CONSULTATION SHIRA SALAZAR FACILITY: [facility] BILLING #: [id number] ROOM: [address] [place] [address] MR #: [id number] : 1945 DATE OF ADMISSION: 12/10/2016 DATE OF CONSULTATION: REQUESTING PHYSICIAN: Latonia Leger MD STREET LIGHT MECHANIC: Yuliet Britt MD GASTROENTEROLOGY CONSULTATION NOTE REASON FOR CONSULTATION: Melena. HISTORY OF PRESENT ILLNESS: This is a 70-year-ol d female with history of GI bleed in the past, who presents to [facility] with chief complaint of black tarry stools and weakness and fatigue. Patient has a complicated GI history, which we are not entirel y clear as [place] Patient states sh e has a history of ischemic colitis requiring colon resection. She also has history of mesenteric ischemia requiring stenting, although it is not clear if any surgery has been done to her small bowel. She also has a history of recurrent GI bleeds from the AVMs. Most recently, patient was admitted to [facility] in the [facility] 2 weeks ago, where she underwent small nehal wel enteroscopy, which was normal. Unfortunately, balloon enteroscopy was n ot done and the rest of the small bowel was not evaluated. Unfortunately, brad chambers went home and continued to have black tarry stools. She also f elt weak and fatigued and prompted her to come to the ER yesterday, where she was found to be anemic. Patient is on Plavix and aspirin given history o f PE, as well as ischemia. She also has generalized abdominal pain, fatigue , weakness, and nausea. PAST MEDICAL HISTORY 1. GI arteriovenous malformations. 2. Asthma. 3. Depression. 4. Diabetes. 5. Gastroesophageal reflux disease. 6. Ischemic colitis. 7. Mesenteric ischemia. 8. CVA. 9. Peripheral artery disease. 10. Pulmonary embolism. 11. TIA. PAST SURGICAL HISTORY 1. Tonsillectomy. 2. Cholecystectomy. ALLERGIES: SEE CHART PATIENT IS ALLERGIC TO A BOUT 15 MEDICATIONS. SOCIAL HISTORY: Patient does not drink or use dr scott. FAMILY HISTORY: Negative for colon cancer or cesar er disease or inflammatory bowel disease. MEDICATIONS: See MAR. REVIEW OF SYSTEMS CARDIOVASCULAR: No chest pain or shortness of br eath or palpitations. PULMONARY: No cough or hemoptysis or wheezing. GENITOURINARY: No hematuria or dysuria or incre ased frequency. NEUROLOGIC: No focal weakness or sensory deficit s or vision changes. REST OF 10-POINT REVIEW OF SYSTEMS: Noncontribut ory. PHYSICAL EXAMINATION VITAL SIGNS: Temperature 98 degrees, heart rate 86, respiratory rate 17, blood pressure 117/53, O2 sat 97%. GENERAL: Patient is awake, alert, appears tired and fatigued. HEENT: Sclerae anicteric, conjunctivae pale, marciano pharynx clear. CARDIOVASCULAR: Regular rhythm without murmur, g allops or rub. LUNGS: Clear to auscultation bilaterally. ABDOMEN: Obese, soft, mild tenderness to palpati on in the lower abdomen. No guarding, rigidity or rebound. Bowel sounds are normal. EXTREMITIES: No cyanosis, clubbing or edema. LABS: White count 14.8, hemoglobin of 7.8, hemat ocrit 24.3, platelets 784,000. INR is 0.9, potassium 4.5, chloride 102 , bicarb 21, BUN 20, creatinine 1.20. IMPRESSIONS 1. GI bleed likely secondary to small bowel AVMs . 2. Anemia secondary to GI bleed. 3. History of mesenteric ischemia. 4. History of ischemic colitis. 5. Chronic antiplatelet use. RECOMMENDATION: Patient ideally requires a small bowel balloon enteroscopy. She has already had her upper GI tract evaluated 2 weeks ago, which was negative. I will go ahead and order a CT angiogr am to localize the source of bleeding and have IR try to intervene on it if i t comes back positive. If this is negative and patient will require transf er to the [facility] for small bowel balloon enteroscopy, where the entir e small bowel can be evaluated. At some point, she also needs a colon oscopy, but right now she is having melena and most likely source is in her s mall bowel. I appreciate the opportunity to participate in t he care of this patient. NBV/cq A A Job#: [id number] Doc#: [id number] FN: [id number] cc: MD Yuliet Mata MD 2016-12-10 23:41:00-00:00 LATONIA LEGER [facility] HISTORY AND PHYSICAL EXAMINATION SHIRA SALAZAR FACILITY: [facility] BILLING #: [id number] ROOM: [address] [place] [address] MR #: [id number] : 1945 DATE OF ADMISSION: 12/10/2016 ADMITTING PHYSICIAN: Latonia Leger MD DATE OF : 1945 REASON FOR ADMISSION: GI bleed. HPI: The patient is a pleasant 71-year-old woman with a history of asthma, GERD, diabetes, depression, neuropathy, ischemic bowel syndrome, who was on Plavix for mesenteric stent, has a history of is chemic colitis status post resection, was admitted [facility] for GI bleed. Had a small bowel enteroscopy on November 26, 2016, whic h was within normal. Patient was transfused blood at that time. This has reso lved. Then she was restarted with aspirin and Plavix. She says she started on black tarry stools again 2 days ago. On admission in the ER, her hemoglobin was found to be 7.8. There was black tarry stools for which s he was admitted. PAST MEDICAL HISTORY: As above. ALLERGIES: Multiple. 1. TO DARVOCET. 2. IODINE. 3. STATIN. 4. CLINDAMYCIN. 5. CODEINE. 6. PENICILLIN. 7. MORPHINE. HOME MEDICATIONS: Reviewed. PAST SURGICAL HISTORY 1. Cholecystectomy. 2. Colon enteroscopy. 3. Last EGD 2 weeks ago. FAMILY HISTORY: Noncontributory. SOCIAL HISTORY: Negative times 3. REVIEW OF SYSTEMS: As per HPI, negative. PHYSICAL EXAMINATION VITALS: Blood pressure 139/69, pulse 80, tempera ture afebrile. HEENT: PERRLA. NECK: Supple, no JVD. ABDOMEN: Soft, nontender, nondistended. EXTREMITIES: No edema. LABORATORY: Hemoglobin 7.8, white blood cell cou nt 14.8, platelets 784,000. Sodium 136, potassium 4.5, BUN 20, creatinine 1. 2. ASSESSMENT AND PLAN 1. Anemia--with lower gastrointestinal bleed. 2. History of repeated arteriovenous malformatio n bleeding--Dr. Hawley with gastrointestinal is consulted. I will go ahead a nd hold any aspirin and Plavix at this time and keep patient n.p.o. for further gastrointestinal workup. We will also transfuse 1 unit of packed red blood cells today. Hemoglobin and hematocrit has dropped from 8.8 f rom last week. 3. Prophylaxis--we will start patient on Protoni x drip as well as sequential compressive device boots. 4. Hypertension. Restart home medications. NSG/dx P P Job#: [id number] Doc#: [id number] FN: [id number] cc: Latonia Leger MD
[2022-10-29] MEDS ORDERED: NA CHLORIDE 0.9% 250 ML ONE (21:38)
[2022-10-29] MEDS ORDERED: NA CHLORIDE 0.9% 500 ML ONE (21:38)
[2022-10-29] MEDS ORDERED: ONDANSETRON 4 MG/2 ML VIAL ONE (21:38)
[2022-10-29] MEDS ORDERED: NA CHLORIDE 0.9% 1,000 ML ONE ×2 (21:38→23:53)
[2022-10-29] MEDS ORDERED: PANTOPRAZOLE 40 MG INJ ONE (21:38)
--- NOTE | 2022-10-29 22:09 | RAD REPORT ---
EXAM DESCRIPTION: RAD - Chest Single View - 10/29/2022 10:02 pm CLINICAL HISTORY: COUGH Chest pain. COMPARISON: Chest Single View dated 07/27/2022; Chest Single View dated 06/03/2022; Chest Single View da bruna 01/24/2022; Chest Single View dated 01/11/2022 FINDINGS: Portable technique limits examination quality. The lungs are grossly clear. The heart is normal in size. No displaced fractures. IMPRESSION: No acute intrathoracic process suspected.
[2022-10-29 22:23] LABS: Lymphocytes % 8.1 % (15.3-44.8); MCV 97.5 fL (80-100); MPV 8.9 fL (7.6-11.3); Protime INR 0.98; RBC Red Blood Cell Count 2.77 M/uL (3.86-4.86)
--- NOTE | 2022-10-29 22:24 | RAD REPORT ---
EXAM DESCRIPTION: CT - Abdomen Pelvis Wo Contrast - 10/29/2022 10:17 pm CLINICAL HISTORY: Abdominal pain. ABD PAIN COMPARISON: Abdomen Pelvis Wo Contrast dated 01/24/2022 TECHNIQUE: CT imaging of the abdomen and pelvis was performed without contrast. Solid organ, bowel a nd vascular assessment is limited due to lack of IV and oral contrast. All CT scans are performed using dose optimization technique as appropriate and may include automated exposure control or mA/KV adjustment according to patient size. FINDINGS: The lower lung wilson are clear. The liver, spleen, pancreas, adrenal glands and right kidney are within normal limits for a limited n on-contrast examination.Left renal atrophy. Laxity of the anterior abdominal wall is present without hernia. A moderate pannus is present. No bowel obstruction, free air, free fluid or abscess. Heavy aortic atherosclerosis. The appendix is not identified as a discrete structure, however, no secondary findings of appendicitis are identified . Moderate multilevel degenerative lumbar spondylosis. IMPRESSION: No acute intra-abdominal or pelvic findings. A limited non-contrast examination was performed as detailed.
--- NOTE | 2022-10-29 22:31 | EDPHYS ---
Physician Documentation [facility] Name: Sia Salazar Age: 76 yrs Sex: Female : 1945 Arrival Date: 10/29/2022 Time: 21:04 Bed 3 Private MD: ED Physician Roderick Luna HPI: 10/29 21:15 This 76 yrs old Female presents to ER via Unassigned with complaints of nelly uppper gi bleed. 21:15 The patient presents with abdominal pain in the upper abdomen. Onset: The nelly symptoms/episode began/occurred 4 day(s) ago. The symptoms do not radiate. Associated signs and symptoms: Pertinent positives: nausea and vomiting. The symptoms are described as crampy, intermittent. Modifying factors: The symptoms are alleviated by. Severity of pain: At its worst the pain was moderate in the emergency department the pain is unchanged. The patient has experienced similar episodes in the past, multiple times. Historical: - Allergies: 21:35 Actos; pf1 21:35 Bactrim; pf1 21:35 Clindamycin; pf1 21:35 Codeine; pf1 21:35 Crestor; pf1 21:35 Darvocet-N 100; pf1 21:35 Erythromycin; pf1 21:35 Glimepiride; pf1 21:35 Glipizide; pf1 21:35 Iodinated Contrast Media - IV Dye; pf1 21:35 Januvia; pf1 21:35 Lipitor; pf1 21:35 metformin; pf1 21:35 Morphine; pf1 21:35 PENICILLINS; pf1 21:35 Sulfa (Sulfonamide Antibiotics); pf1 21:35 Wellbutrin; pf1 - Immunization history:: Adult Immunizations up to date, Adult Immunizations Client reports receiving the 2nd dose of the Covid vaccine. - Family history:: not pertinent. - Social history:: Smoking status: Patient reports the use of cigarette tobacco products, smokes one pack cigarettes per day. Patient/guardian denies using alcohol, street drugs. ROS: 21:18 Constitutional: Negative for fever, chills, and weight loss, Eyes: Negative for injury, nelly pain, redness, and discharge, ENT: Negative for injury, pain, and discharge, Neck: Negative for injury, pain, and swelling, Cardiovascular: Negative for chest pain, palpitations, and edema, Respiratory: Negative for shortness of breath, cough, wheezing, and pleuritic chest pain, Back: Negative for injury and pain, : Negative for injury, bleeding, discharge, and swelling, MS/Extremity: Negative for injury and deformity, Neuro: Negative for headache, weakness, numbness, tingling, and seizure, Psych: Negative for depression, anxiety, suicide ideation, homicidal ideation, and hallucinations, Allergy/Immunology: Negative for hives, rash, and allergies, Endocrine: Negative for neck swelling, polydipsia, polyuria, polyphagia, and marked weight changes. 21:18 Abdomen/GI: Positive for abdominal pain, black/tarry stool. 21:18 Skin: Positive for pallor. Exam: 21:18 Constitutional: This is a well developed, well nourished patient who is awake, alert, nelly and in no acute distress. Head/Face: Normocephalic, atraumatic. Eyes: Pupils equal round and reactive to light, extra-ocular motions intact. Lids and lashes normal. Conjunctiva and sclera are non-icteric and not injected. Cornea within normal limits. Periorbital areas with no swelling, redness, or edema. ENT: Nares patent. No nasal discharge, no septal abnormalities noted. Tympanic membranes are normal and external auditory canals are clear. Oropharynx with no redness, swelling, or masses, exudates, or evidence of obstruction, uvula midline. Mucous membranes moist. Neck: Trachea midline, no thyromegaly or masses palpated, and no cervical lymphadenopathy. Supple, full range of motion without nuchal rigidity, or vertebral point tenderness. No Meningismus. Chest/axilla: Normal chest wall appearance and motion. Nontender with no deformity. No lesions are appreciated. Cardiovascular: Regular rate and rhythm with a normal S1 and S2. No gallops, murmurs, or rubs. Normal PMI, no JVD. No pulse deficits. Respiratory: Lungs have equal breath sounds bilaterally, clear to auscultation and percussion. No rales, rhonchi or wheezes noted. No increased work of breathing, no retractions or nasal flaring. Back: No spinal tenderness. No costovertebral tenderness. Full range of motion. Female : Normal external genitalia. MS/ Extremity: Pulses equal, no cyanosis. Neurovascular intact. Full, normal range of motion. Neuro: Awake and alert, GCS 15, oriented to person, place, time, and situation. Cranial nerves II-XII grossly intact. Motor strength 5/5 in all extremities. Sensory grossly intact. Cerebellar exam normal. Normal gait. Psych: Awake, alert, with orientation to person, place and time. Behavior, mood, and affect are within normal limits. 21:18 Abdomen/GI: Inspection: abdomen appears normal, Bowel sounds: normal, Liver: no appreciated palpable abnormalities, Hernia: not appreciated. 21:20 Abdomen/GI: Rectal exam: black tarry stools. [facility] 23:05 ECG was reviewed by the Attending Physician. [facility] Vital Signs: 21:19 BP 160 / 61; Pulse 76; Resp 18; Temp 98.7; Pulse Ox 97% on R/A; Weight 65.77 kg; Height pf1 5 ft. 2 in. ; Pain 8/10; 23:05 BP 131 / 43; Pulse 84; Resp 16; Pulse Ox 95% on R/A; kd3 23:40 BP 118 / 46; Pulse 72; Resp 19; Pulse Ox 94% on R/A; kd3 0804 00:07 BP 140 / 38; Pulse 78; Resp 19; Pulse Ox 95% on R/A; kd3 03 21:19 Body Mass Index 26.52 (65.77 kg, 157.48 cm) pf1 10/29 21:19 Pain Scale: Adult pf1 MDM: 10/29 21:09 Patient medically screened. [facility] 21:21 Differential diagnosis: diverticulitis, gastritis, gastroesophageal reflux disease, GI nelly Bleed, Mesenteric ischemia or infarction, non-specific abd pain, Peptic Ulcer Disease, Perf. Duodenal Ulcer, Perf. Gastric Ulcer, Ureterolithiasis, urinary tract infection. Data reviewed: vital signs, nurses notes, EMS record, lab test result(s), EKG, radiologic studies, CT scan, plain films. Consideration of Admission/Observation Escalation of care including admission/observation considered. Management of patient was discussed with the following: Hospitalist: at [facility]. I considered the following discharge prescriptions or medication management in the emergency department Medications were administered in the Emergency Department. See MAR. Independent interpretation of the following test(s) in the Emergency Department EKG: See my EKG interpretation above. Test considered but Not performed: Ultrasound no abd usg. Historians other than the Patient: EMS: EMS WELL IMFORMED. Care significantly affected by the following chronic conditions: Diabetes, Hypertension, Obesity, SMALL BOWEL AVM. Counseling: I had a detailed discussion with the patient and/or guardian regarding: the historical points, exam findings, and any diagnostic results supporting the discharge/admit diagnosis, lab results, radiology results, the need to transfer to another facility, for higher level of care, [facility] does not immediately have the required specialist. 21:25 Patient medically screened. [facility] 10/29 21:13 Order name: Basic Metabolic Panel; Complete Time: 23:00 [facility] 10/29 21:13 Order name: CBC with Diff; Complete Time: 22:24 [facility] 10/29 21:13 Order name: LFT's; Complete Time: 23:00 [facility] 10/29 21:13 Order name: Magnesium; Complete Time: 23:00 [facility] 10/29 21:13 Order name: NT PRO-BNP; Complete Time: 23:00 [facility] 10/29 21:13 Order name: PT-INR; Complete Time: 22:28 [facility] 10/29 21:13 Order name: Troponin HS; Complete Time: 23:00 [facility] 10/29 21:13 Order name: Lipase; Complete Time: 23:00 [facility] 10/29 21:13 Order name: Type And Screen [facility] 10/29 21:15 Order name: Lactate w/ 2H reflex if indic.; Complete Time: 23:00 [facility] 10/29 22:58 Order name: Antibody Identification EDND 10/29 21:13 Order name: XRAY Chest (1 view); Complete Time: 22:24 [facility] 10/29 21:15 Order name: CT Abd/Pelvis - Without Contrast; Complete Time: 22:28 [facility] 10/29 21:13 Order name: EKG; Complete Time: 21:13 [facility] 10/29 21:13 Order name: Cardiac monitoring; Complete Time: 22:45 [facility] 10/29 21:13 Order name: EKG - Nurse/Tech; Complete Time: 23:05 [facility] 10/29 21:13 Order name: IV Saline Lock; Complete Time: 22:45 [facility] 10/29 21:13 Order name: Labs collected and sent; Complete Time: 22:45 [facility] 10/29 21:13 Order name: O2 Per Protocol; Complete Time: 22:45 [facility] 10/29 21:13 Order name: O2 Sat Monitoring; Complete Time: 22:45 nelly 10/29 21:13 Order name: IV Saline Lock - Large Bore; Complete Time: 22:45 nelly EC:05 Rate is 75 beats/min. Rhythm is regular. QRS [place] is Normal. ME interval is normal. QRS nelly interval is normal. QT interval is normal. No Q waves. T waves are Normal. No ST changes noted. Clinical impression: NSR w/ Non-specific ST/T Changes and No evidence of ischemia. Interpreted by me. Reviewed by me. Administered Medications: 21:27 CANCELLED (Duplicate Order): Pantoprazole IVP 40 mg IVP once nelly 22:37 Drug: Pantoprazole IV 8 mg/hr Route: IV; Rate: 25 ml/hr; Site: right upper arm; kd3 10/30 00:07 Follow up: IV Status: Infusion continued kd3 10/29 22:38 Drug: NS 0.9% IV 500 ml Route: IV; Rate: bolus; Site: right upper arm; kd3 23:14 Follow up: IV Status: Completed infusion; IV Intake: 500ml kd3 22:38 Drug: NS 0.9% IV 1000 ml Route: IV; Rate: 125 ml/hr; Site: left upper arm; kd3 10/30 00:07 Follow up: IV Status: Infusion continued kd3 10/29 22:38 Drug: Ondansetron IVP 4 mg Route: IVP; Site: left hand; kd3 10/30 00:07 Follow up: Response: No adverse reaction kd3 10/29 22:39 Drug: Pantoprazole IVP 80 mg Route: IVP; Site: right upper arm; kd3 10/30 00:07 Follow up: Response: No adverse reaction kd3 10/29 22:44 Drug: Ativan IVP 1 mg Route: IVP; Site: left hand; kd3 10/30 00:07 Follow up: Response: No adverse reaction kd3 10/29 23:47 Drug: NS 0.9% IV 1000 ml Route: IV; Rate: 1 bolus; Site: right upper arm; kd3 10/30 00:07 Follow up: IV Status: Infusion continued kd3 Disposition Summary: 10/29/22 22:30 Transfer Ordered Transfer Location: [facility] nelly Reason: Higher level of care nelly Condition: Fair nelly Problem: an ongoing problem nelly Symptoms: have worsened nelly Accepting Physician: to [facility](10/30/22 00:08) kd3 Diagnosis - GI Bleed/ Gastrointestinal hemorrhage, unspecified - upper gi, hx AVM nelly - Anemia, unspecified nelly - Weakness nelly - Unspecified kidney failure - acute on chronic nelly - Type 2 diabetes mellitus with hyperglycemia nelly Forms: - Medication Reconciliation Form nelly - SBAR form nelly Signatures: Dispatcher [employer] EDRoderick Ayoub MD MD cha Doucette, Kyli RN RN kd3 Kristel Bailey RN RN pf1 Corrections: (The following items were deleted from the chart) 10/29 21:27 21:13 Pantoprazole IVP 40 mg IVP once ordered. nelly nelly 23:04 22:30 to [facility] nelly nelly 23:05 23:04 to [facility] nelly nelly 10/30 00:08 10/29 23:05 to [facility] nelly kd3
--- NOTE | 2022-10-29 22:31 | ER ---
Nurse's Notes [facility] Name: Sia Salazar Age: 76 yrs Sex: Female : 1945 Arrival Date: 10/29/2022 Time: 21:04 Bed 3 Private MD: Diagnosis: GI Bleed/ Gastrointestinal hemorrhage, unspecified-upper gi, hx AVM;Anemia, unspecified;Weakness;Unspecified kidney failure-acute on chronic;Type 2 diabetes mellitus with hyperglycemia Presentation: 10/29 21:19 Chief complaint: Patient states: RUQ and LLQ pain of 8 with black tarry stools and pf1 nausea, worse today, onset on Wednesday. Per [facility] patient's FSBGL 284. Coronavirus screen: Vaccine status: Patient reports receiving the 2nd dose of the covid vaccine. Moderna Client denies travel out of the [place] in the last 14 days. At this time, the client does not indicate any symptoms associated with coronavirus-19. Ebola Screen: Patient negative for fever greater than or equal to 101.5 degrees Fahrenheit, and additional compatible Ebola Virus Disease symptoms. Initial Sepsis Screen: Does the patient meet any 2 criteria? No. Patient's initial sepsis screen is negative. Does the patient have a suspected source of infection? No. Patient's initial sepsis screen is negative. Risk Assessment: Do you want to hurt yourself or someone else? Patient reports no desire to harm self or others. 21:19 Method Of Arrival: EMS: [facility] pf1 21:19 Acuity: GREGG 3 pf1 23:41 Onset of symptoms was October 29, 2022. kd3 Triage Assessment: 22:46 General: Appears uncomfortable, Behavior is calm, cooperative. Pain:. kd3 Historical: - Allergies: 21:35 Actos; pf1 21:35 Bactrim; pf1 21:35 Clindamycin; pf1 21:35 Codeine; pf1 21:35 Crestor; pf1 21:35 Darvocet-N 100; pf1 21:35 Erythromycin; pf1 21:35 Glimepiride; pf1 21:35 Glipizide; pf1 21:35 Iodinated Contrast Media - IV Dye; pf1 21:35 Januvia; pf1 21:35 Lipitor; pf1 21:35 metformin; pf1 21:35 Morphine; pf1 21:35 PENICILLINS; pf1 21:35 Sulfa (Sulfonamide Antibiotics); pf1 21:35 Wellbutrin; pf1 - Immunization history:: Adult Immunizations up to date, Adult Immunizations Client reports receiving the 2nd dose of the Covid vaccine. - Family history:: not pertinent. - Social history:: Smoking status: Patient reports the use of cigarette tobacco products, smokes one pack cigarettes per day. Patient/guardian denies using alcohol, street drugs. Screenin:46 [facility] ED Fall Risk Assessment (Adult) History of falling in the last 3 months, kd3 including since admission No falls in past 3 months (0 pts) Confusion or Disorientation No (0 pts) Intoxicated or Sedated No (0 pts) Impaired Gait No (0 pts) Mobility Assist Device Used No (0 pt) Altered Elimination No (0 pt) Score/Fall Risk Level 0 - 2 = Low Risk Maintained a safe environment. Abuse screen: Denies threats or abuse. Denies injuries from another. Nutritional screening: No deficits noted. Tuberculosis screening: No symptoms or risk factors identified. Assessment: 22:46 Pain: Complains of pain in abdomen. Neuro: Level of Consciousness is awake, alert, kd3 obeys commands, Oriented to person, place, time, situation. Cardiovascular: Patient's skin is warm and dry. Respiratory: Airway is patent Trachea midline Respiratory effort is even, unlabored, Respiratory pattern is regular, symmetrical. Vital Signs: 21:19 BP 160 / 61; Pulse 76; Resp 18; Temp 98.7; Pulse Ox 97% on R/A; Weight 65.77 kg; Height pf1 5 ft. 2 in. ; Pain 8/10; 23:05 BP 131 / 43; Pulse 84; Resp 16; Pulse Ox 95% on R/A; kd3 23:40 BP 118 / 46; Pulse 72; Resp 19; Pulse Ox 94% on R/A; kd3 10/30 00:07 BP 140 / 38; Pulse 78; Resp 19; Pulse Ox 95% on R/A; kd3 10/29 21:19 Body Mass Index 26.52 (65.77 kg, 157.48 cm) pf1 10/29 21:19 Pain Scale: Adult pf1 ED Course: 10/29 21:09 Patient arrived in ED. nelly 21:10 Roderick Luna MD is Attending Physician. nelly 21:23 Nishi Moe, PITER is Primary Nurse. kd3 21:27 Triage completed. pf1 21:27 Maintain EMS IV. Dressing intact. Good blood return noted. Site clean \T\ dry. Gauge \T\ pf 1 site: 20gauge to Left hand. 22:05 XRAY Chest (1 view) In Process Unspecified. EDMS 22:19 CT Abd/Pelvis - Without Contrast In Process Unspecified. EDMS 22:28 Initiated transfer with Kika at [facility]. rv1 22:46 Inserted saline lock: 20 gauge in right upper arm, using aseptic technique. Blood kd3 collected. 22:47 Patient has correct armband on for positive identification. Provided Education on: kd3 Blood Transfusion. 23:07 Pt accepted to [facility] by Dr. Rosario. rv1 23:40 No provider procedures requiring assistance completed. Patient transferred, IV remains kd3 in place. 23:40 Arm band placed on right wrist. EKG completed in triage. Results shown to MD. kd3 Administered Medications: 21:27 CANCELLED (Duplicate Order): Pantoprazole IVP 40 mg IVP once nelly 22:37 Drug: Pantoprazole IV 8 mg/hr Route: IV; Rate: 25 ml/hr; Site: right upper arm; kd3 10/30 00:07 Follow up: IV Status: Infusion continued kd3 10/29 22:38 Drug: NS 0.9% IV 500 ml Route: IV; Rate: bolus; Site: right upper arm; kd3 23:14 Follow up: IV Status: Completed infusion; IV Intake: 500ml kd3 22:38 Drug: NS 0.9% IV 1000 ml Route: IV; Rate: 125 ml/hr; Site: left upper arm; kd3 10/30 00:07 Follow up: IV Status: Infusion continued kd3 10/29 22:38 Drug: Ondansetron IVP 4 mg Route: IVP; Site: left hand; kd3 10/30 00:07 Follow up: Response: No adverse reaction kd3 10/29 22:39 Drug: Pantoprazole IVP 80 mg Route: IVP; Site: right upper arm; kd3 10/30 00:07 Follow up: Response: No adverse reaction kd3 10/29 22:44 Drug: Ativan IVP 1 mg Route: IVP; Site: left hand; kd3 10/30 00:07 Follow up: Response: No adverse reaction kd3 10/29 23:47 Drug: NS 0.9% IV 1000 ml Route: IV; Rate: 1 bolus; Site: right upper arm; kd3 10/30 00:07 Follow up: IV Status: Infusion continued kd3 Medication: 10/29 23:40 VIS not applicable for this client. kd3 Intake: 23:14 IV: 500ml; Total: 500ml. kd3 Outcome: 22:30 ER care complete, transfer ordered by MD. villegas 23:40 Transferred by ground EMS to [facility]. kd3 23:40 Condition: stable 23:40 Discharge instructions given to patient, Instructed on the need for transfer, Demonstrated understanding of instructions. 10/30 00:08 Patient left the ED. kd3 Signatures: Dispatcher [employer] EDRoderick Ayoub MD MD cha Doucette, Kyli, RN RN kd3 Kristel Bailey RN RN 1 Terrie Chu [facility]
[2022-10-29 22:41] LABS: ALT/SGPT 16 U/L (13-56); AST/SGOT 11 U/L (15-37); Albumin 2.9 g/dL (3.4-5.0); Alkaline Phosphatase 69 U/L (45-117); BUN Blood Urea Nitrogen 27 mg/dL (7-18); Bicarbonate 25 mEq/L (21-32); Bilirubin Direct < 0.1 mg/dL (0-0.2); Bilirubin Total 0.2 mg/dL (0.2-1.0); Glomerular Filtration Rate 34 ml/min (=/>90); Glucose Level 230 mg/dL (74-106); Lipase 114 U/L (13-75); NT PRO-BNP 328 pg/mL (<450); Potassium 4.6 mEq/L (3.5-5.1); Protein, Total 6.3 g/dL (6.4-8.2); Sodium Level 137 mEq/L (136-145)
[2022-10-29 22:42] LABS: Bilirubin Indirect, Calculated ND mg/dL (0.2-0.8)
[2022-10-29] MEDS ORDERED: LORazepam 2 MG/ML VIAL ONE (22:47)
[2022-10-30 00:20] VITALS: TEMP 98.7
[2022-10-30 00:23] VITALS: BP 140/38; O2SAT 95
--- NOTE | 2022-11-02 13:14 | EKG ---
Test Date: 2022-10-29 Test Time: 22:59:48 Deli Cook: NATAHN MEASUREMENT RESULTS: Intervals: Rate: 75 IA: 202 QRSD: 90 QT: 410 QTc: 457 [place]: P: 10 IA: 202 QRS: 0 T: 66 INTERPRETIVE STATEMENTS: Normal sinus rhythm Anteroseptal infarct, age undetermined Abnormal ECG Compared to ECG 07/27/2022 16:45:14 Left-axis deviation no longer present Myocardial infarct finding still present Electronically Signed On 11-02-22 13:10:01 CDT by Beltran Patel
== END 2022-10-30 00:08 | disposition short-term general hospital (02) ==
LOC: ER 21:04
DX: D64.9 Anemia, unspecified (principal); R53.1 Weakness; E11.22 Type 2 diabetes mellitus with diabetic chronic kidney disease; E11.65 Type 2 diabetes mellitus with hyperglycemia; N18.9 Chronic kidney disease, unspecified; N17.9 Acute kidney failure, unspecified; Q27.33 Arteriovenous malformation of digestive system vessel; F17.210 Nicotine dependence, cigarettes, uncomplicated; Z88.0 Allergy status to penicillin; Z88.1 Allergy status to other antibiotic agents; Z88.2 Allergy status to sulfonamides; Z88.3 Allergy status to other anti-infective agents; Z88.5 Allergy status to narcotic agent; Z88.8 Allergy status to other drugs, medicaments and biological substances; Z91.041 Radiographic dye allergy status
CPT/HCPCS: 93005; 85025; 80048; 36415; 86900; 83735; 86850; 85610; 86870; 86901; 80076; 83605; 84484; 83690; 83880; 74176; 71045; 99285; C9113; J2405; J7050; J7040; J7030 ×2

== ENCOUNTER 2022-11-29 20:34 | Emergency (ER) | payer MEDICARE ==
--- OUTSIDE RECORDS SUMMARY | 2022-11-29 21:22 | XMS REPORT | Continuity of Care Document ---
:[address] [facility] t Address [address] [place] [place] [address] Care Team Providers Name Role Phone SHARPLESS Primary Care Physician Unavailable Isra Rondon Attending Clinician Unavailable PEARL BROOKS Attending Clinician Unavailable TAI LARIOS Attending Clinician Unavailable ZULMA SALAZAR Attending Clinician Unavailable ABIOLA PEREZ Attending Clinician Unavailable Ana Wells Attending Clinician Kirit CONTRERAS Attending Clinician Unavailable Kirit Tsang Attending Clinician Doctor Unassigned, [place] Attending Clinician Unavailable Andrez Lam Attending Clinician Jose Alberto FELIX, Librado Attending Clinician DAWSON BECKFORD Attending Clinician Unavailable DAWSON BECKFORD Attending Clinician Unavailable LIDIA NAZARIO Attending Clinician Unavailable Darling Moran MD Attending Clinician DARLING MORAN Attending Clinician Unavailable Gricel Little MD Attending Clinician Suki FELIX, Chinmay Betancourt Attending Clinician Carol Heredia Attending Clinician Ayaan Christian MD Attending Clinician Ariel Roland MD Attending Clinician ARIEL ROLAND Attending Clinician Unavailable Litzy Gerardo MD Attending [...] JEN TALBERT Attending Clinician Unavailable Provider, [facility] Attending Clinician Unavailable Jen Talbert MD Attending Clinician Jose Nguyen MD Attending Clinician TANA VELEZ Attending Clinician Unavailable Tana Velez MD Attending Clinician KEISHA APARICIO Attending Clinician Unavailable Keisha Aparicio MD Attending Clinician INDIGO JIMÉNEZ Attending Clinician Unavailable Lab, Ad[facility] Pob I Attending Clinician Unavailable Simi Lopez Attending Clinician [facility] Attending Clinician Unavailable JOSE NGUYEN Attending Clinician Unavailable Morena Jules Attending Clinician MORENA GRAY Attending Clinician Unavailable SIMI MON Attending Clinician Unavailable OLI JEFFREY Attending Clinician [...] Attending Clinician PEARL BROOKS Admitting Clinician Unavailable RAFAEL ROSARIO Admitting Clinician Unavailable DAWSON BECKFORD Admitting Clinician Unavailable DARLING MORAN Admitting Clinician Unavailable AYAAN CHRISTIAN Admitting Clinician Unavailable Lias Admitting Clinician Unavailable MORALES FITCH Admitting Clinician Unavailable JOSE DUNLAP Admitting Clinician Unavailable SIMI MON Admitting Clinician Unavailable SHENA ORR Admitting Clinician Unavailable LATONIA LEGER Admitting Clinician Unavailable ADRIANA MAGALLANES Admitting Clinician Unavailable WILL TINAJERO Admitting Clinician Unavailable Payers Payer Name Policy Type Policy Number Effective Date Expiration Date S ivy [facility] [id number] 2021 MGD MCR [facility]00 [facility] MED[facility] 00:00:00 ADVANTAGE PLAN [facility] (MEDICARE 00:00:00 REPLACEMENT HMO) WELLCARE VALUE [id number] 2020 00:00:00 [employer] C1 [id number] [facility] Problems Condition Condition Condition Status Onset Resolution [...] 00:00: [place] failure failure 00 Medical Branch Coronary Coronary Disease Active Unive rs artery artery 917 ity of disease disease 00:00: [place] involving involving 00 Medi jorge l [place] Branch coronary coronary artery artery Acute GI Acute GI Disease Active [facility] bleeding bleeding 12-13 [facility] 00:[facility] Medical 00 Center Arterioven Arterioven Disease Active C HI St ous ous 12-13 [facility] malformati malformati 00:00: Me dical on (AVM) on (AVM) 00 Center Diabetes Diabetes Disease Recurre Overview: C HI St mellitus mellitus nce -17 Formattin Luis es 00:00: g of this [...] 10-27 Dora kes anemia anemia 00:00: Medical [address] [place] [address] Upper GI Upper GI Disease Active Unive rs bleed bleed 10-23 ity of 00:00: [address] Branch GI bleed GI bleed Disease Active [facility] 10[facility]23 [facility] 00:[facility]: Medical [address] [place] [address] DSU- DSU- Diagnosis Active 2017-02-10 [facility] oritesfaye HEMATOCHEZ HEMATOCHEZ 10-01 16:16:00 l [place] R19.5, [place] R19.5, 00:00: Blaire tristan FATIGUE FATIGUE 00 R53.83, R53.83, Active 10/01/2016 [facility] Obesity Obesity Disease Active Univers (BMI (BMI 09-02 ity of 30-39.9) 30-39.9) 00:00: [address] SBO (small SBO (small Disease Active [facility] bowel bowel 09-01 ity of obstructio obstructio 00:00: Te tita adams) n) [address] [place] [address] Branch F/U F/U Diagnosis Active 2016-10-01 Mem oria Active 07-02 10:31:00 l 07/02/2016 00:00: Gilbert adams [address] CONSULT CONSULT Diagnosis Active 2016-07-02 Memoria Active 05-06 11:37:00 l 05/06/2016 00:00: [place] adams [address] Depression Depression Disease Active U nivers ity of [facility] [id number] Right-side Problem Co mmon d back Spirit pain, - CHI unspecifie St d back [facility] location, Medical unspecifie Center d chronicity Anxiety Anxiety Problem Common Spirit [facility] Osteoporos Osteoporos Problem C ommon is is Spirit - [facility] Depression Depression Problem C ommon Spirit [facility] COPD - COPD Problem Common Chronic (chronic Spirit obstructiv obstructiv - CHI e e St pulmonary pulmonary Luke s disease disease) [facility] [id number] Ventral Problem Commo n hernia Spirit without - [facility] Stroke Stroke Problem Common Spirit - [facility] [id number] Chronic Problem Commo n blood loss Spirit anemia - [facility] 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 Seasonal Seasonal Problem Commo n allergic allergic Spirit rhinitis reaction - [facility] [id number] Coronary Problem Comm on artery Spirit disease - CHI involving [facility] coronary Medical artery of Center [place] heart with other form of angina pectoris Disorder Circulatio Problem Com mon of n problem Spirit cardiovasc - CHI ular [facility] [id number] Abdominal Problem Comm on pain, Spirit unspecifie - CHI d [facility] [id number] Depression Problem Co mmon screening Spirit [facility] [id number] Uncontroll Problem Co mmon ed type 2 Spirit diabetes - CHI mellitus [facility] hyperglyce [facility]ica [facility] Peripheral Peripheral Problem C ommon neuropathy neuropathy Sp tarun - [facility] [id number] Insomnia, Problem Com mon unspecifie Spirit d type - [facility] [id number] Hammer toe Problem Co mmon of right Spirit foot - [facility] Iron Anemia, Problem Common deficiency iron Spirit anemia deficiency - [facility] [id number] Primary Problem Commo n osteoarthr Spirit itis - CHI involving [facility] [id number] Cardiomyop Problem Com mon athy, Spirit unspecifie - CHI d type [facility] [id number] Decreased Problem Comm on diastolic Spirit blood - CHI pressure [facility] [id number] Pneumonia Problem Com mon due to Spirit infectious - [facility] organism[facility] , unspecifie d part of lung [id number] Arterioven Problem Co mmon ous Spirit malformati - CHI on small bowel [facility] [id number] Tobacco Problem Commo n use Spirit disorder - [facility] [id number] Essential Problem Comm on hypertensi Spirit on - [facility] [id number] Wheezing Problem Commo n Spirit - [facility] [id number] Tremor Problem Common Spirit [facility] Anemia due Anemia due Problem C ommon to blood to blood Spirit loss loss - [facility] Arterioven Arterioven Problem C ommon ous ous Spirit malformati malformati - CHI on on, other [facility] [id number] Depression Problem Com mon , major, Spirit single - CHI episode, [facility] Constipati Constipati Problem C ommon on on, Spirit [facility]specifie - [facility] [id number] Mixed Problem Common hyperlipid Spirit emia - [facility] Dizzy Dizzy Problem Common spells spells Spirit - [facility] Abnormal Gait Problem Common gait disturbanc Spirit e - [facility] Transient TIA Problem Common ischemic (transient Spir it attack ischemic - CHI attack) [facility] [id number] Chronic Problem Commo n kidney Spirit disease, - CHI stage 3 [facility] [id number] Type 2 Problem Commo n 05 diabetes Spirit mellitus - [facility] with [facility] kidney Center disease [id number] History of Problem C ommon [address] allergic Spirit reaction - [facility] [id number] Chronic Problem Commo n pain Spirit syndrome - [facility] Hyperlipid Hyperlipem Problem C ommon aemia ia Spirit - [facility] Type II Diabetes Problem Common diabetes mellitus Spirit mellitus with no - [facility] Anemia Anemia Problem Resolve 2016-10-04 Mem oria (disorder) (disorder) d 00:05:00 l Resolved Nader Problem 10/04/2016 [facility] Congenital Problem Resolve 2016-10-04 Memoria arterioven Congenital d 00:05:00 l ous arterioven Gilbert n malformati ous on malformati (disorder) on (disorder) Resolved Problem 10/04/2016 [facility] Gallbladde Gallbladd Problem Resolve 2016-10-04 Memoria r calculus er d 00:05:00 l (disorder) calculus Herm kun (disorder) Resolved Problem 10/04/2016 [facility] Gout Gout Problem Resolve 2016-10-04 Jim maya (disorder) (disorder) d 00:05:00 l Resolved Nader Problem 10/04/2016 [facility] History of History Problem Resolve 2016-10-04 Memoria - TIA of - TIA d 00:05:00 l (context-d (context-d He rmann ependent ependent category) category) Resolved Problem 10/04/2016 [facility] Asthma Asthma Problem Resolve 2016-10-04 Mem oria (disorder) (disorder) d 00:05:00 l Resolved Nader Problem 10/04/2016 [facility] Arthritis Arthritis Problem Resolve 2016-10-04 Memoria (disorder) (disorder) d 00:05:00 l Resolved Nader Problem 10/04/2016 [facility] Peripheral Periphera Problem Resolve 2016-10-04 Memoria vascular l vascular d 00:05:00 l disease disease Nader (disorder) (disorder) Resolved Problem 10/04/2016 [facility] Polyp of Polyp of Problem Resolve 2016-10-04 Memoria colon colon d 00:05:00 l (disorder) (disorder) He rmann Resolved Problem 10/04/2016 [facility] ENCNTR FOR ENCNTR Diagnosis Active 2016-10-01 Memoria GENERAL FOR 10:31:00 l ADULT GENERAL [place] MEDICAL ADULT EXAM W/ MEDICAL EXAM W/ Active [facility] OTHER OTHER Diagnosis Active 2017-02-10 Mem oria FECAL FECAL 16:16:00 l ABNORMALIT ABNORMALIT He rmann IES IES Active [facility] Allergies, Adverse Reactions, Alerts Allergy Allergy Status [...] [place] 00 Medical Branch BUPROPIO DRUG Active Other-Cmnt Univ ers N HCL INGREDI 7 ity of 00:00: [place] 00 Medical Branch PIOGLITA DRUG Active Unknown-Cmnt Un soni ZONE INGREDI 7 ity of 00:00: [place] 00 Medical Branch TRIMETHO DRUG Active Unknown-Cmnt Un soni PRIM INGREDI 7 ity of 00:00: [place] 00 Medical Branch Atorvast Propensi Active Hives 2017-[address] atin ty to [facility] [...] mide adverse 00:00: Medical Antibiot reaction 00 [facility]) s Sulfamet Propensi Active [facility] St hoxazole [...] mide adverse 00:00: Medical Antibiot reaction 00 [facility]) s Propoxyp Propensi Active Anaphylaxis C HI [...] Containi reaction 00 Center ng s Products GLIMEPIR Allergy Active Hives [facility] DIANE 10-22 [...] N-ACETAM 00:00: [place] INOPHEN 00 Medical Branch PIOGLITA DRUG Active Hives Univers ZONE HCL INGREDI - ity of 00:00: [place] 00 Medical Branch CLINDAMY DRUG Active ITCHING 2017-0 Univers FABIÁN INGREDI - ity of 00:00: [place] 00 Medical Branch ROSUVAST DRUG Active ITCHING 2017- Univers ATIN INGREDI 6-06 ity of CALCIUM 00:00: [place] 00 Medical Branch ERYTHROM DRUG Active Other-Cmnt 2017-0 Univ ers YCIN - ity of 00:00: [place] 00 Medical Branch [...] glimepir Active Memori a diane diane l [place] glipiZID glipiZID Active Memori a E E l [place] iodine iodine Active Memoria l [place] Januvia Januvia Active Memoria l [place] Lipitor Lipitor Active Memoria l [place] metFORMI metFORMI Active Memori a N N l [place] morphine morphine Active Memori a l [place] penicill penicill Active Memori a ins ins l [place] sulfa sulfa Active Memoria drugs drugs l Ander Wellbutr Wellbutr Active Memori a in in l [place] Bactrim Bactrim Active Memoria l [place] Bandaids Bandaids Active Memori a l [place] clindamy clindamy Active Memori a fabián fabián l [place] codeine codeine Active Memoria l [place] Crestor Crestor Active Memoria l [place] Darvocet Darvocet Active Memori a -N 50 -N 50 l [place] clindamy clindamy Active Unknown Commo n fabián fabián [facility] hydroxyz hydroxyz Active Unknown Commo n ine ine [facility] atorvast atorvast Active Unknown Commo n atin atin [facility] metronid metronid Active Unknown Commo n azole azole [facility] erythrom erythrom Active Unknown Commo n ycin ycin [facility] propoxyp propoxyp Active Unknown Commo n hene hene [facility] 5337 Drug Active Unknown Common allergy [facility] glimepir glimepir Active Unknown Commo n diane diane [facility] trimetho trimetho Active Unknown Commo n prim prim [facility] 463 Drug Active Unknown Common allergy [facility] sitaglip sitaglip Active Unknown Commo n tin tin [facility] Codeine Codeine Active Unknown Common [facility] Morphine Morphine Active Unknown Commo n [facility] Penicill Penicill Active Unknown Commo n in in [facility] pioglita pioglita Active Unknown Commo n zone zone [facility] bupropio bupropio Active Unknown Commo n n n [facility] rosuvast rosuvast Active Unknown Commo n atin atin Spirit - [facility] Family History Family Member Diagnosis Comments Start Date Stop Date Source Natural brother Depression [facility] Natural daughter Depression [facility] Natural father Early [facility] Natural mother No Known Problem [facility] Natural sister Depression [facility] Natural son No Known Problem [facility] Social History Social Habit Start Date Stop Date Quantity Comments Source History [facility] o f Alcohol Frequency [facility] [place] edical Branch History [facility] o f Alcohol Std Drinks [place] [facility] History [facility] o f Alcohol Binge [facility] al Branch History of Tobacco Current Smoker Co mmon Spirit - Use [facility] History [facility] Transport Non-Med Medical Center Alcohol intake 2022-02-21 2022-02-[address] [facility] [facility] St Luis es 00:00:00 00:00:00 non-drinker of Medical Ce nter alcohol (finding) History [facility] 2022-01-25 2022-01-[address] [facility] Transport Med 00:00:00 00:00:[address] [facility] 2022-01-25 2022-01-[address] [facility] Housing Unable to 00:00:00 00:00:00 Medical Center Pay History [facility] 2022-01-25 2022-01-[address] [facility] Housing Places 00:00:00 00:00:00 Medical Ce nter Lived History [facility] 2022-01-25 2022-01-[address] [facility] Housing Homeless 00:00:00 00:00:00 Medical Center Last Year Exposure to 2021-07-24 2021-08-[address] [facility] SARS-CoV-2 (event) 00:00:00 22:08:00 [facility] Alcohol Comment 2019-01-06 2019-01-06 1 glass of wine Univ ersity of 00:00:00 00:00:00 every few months [facility] dical Branch Cigarettes smoked 2019-01-06 2019-01-06 Univers ity of current (pack per 00:00:00 00:00:00 [facility]) - Reported Branch Cigarette 2019-01-06 2019-01-06 University of pack-years 00:00:00 00:00:00 [facility] Tobacco use and 2016-12-11 2016-12-11 Smokeless [place] exposure 00:00:00 00:00:00 tobacco non-user [facility] Tobacco Comment 2016-09-02 2016-09-02 quit in 2015 Univers ity of 00:00:00 00:00:00 [facility] Social History 2016-07-02 2016-07-02 [facility] 15:44:33 15:44:33 Sex [birth year] F VANITA [place] 00:00:00 00:00:00 [facility] Smoking Status Start Date Stop Date Source Current Smoker 2022-08-19 00:00:00 Common Spiri t - [facility] Never smoked tobacco [facility] Medications Ordered Filled Start Stop Current Ordering Indication Dosage Frequency Signature Comments Components Source Medication Medication Date Date Medication? Clinician (SIG) Name Name NaCl 0.9% 2022- No 500mL at 999 Univ ers (NS) bolus 10-04 mL/hr, 500 it y of infusion 00:45: 01:55 mL, IV [place] 500 mL 00 :00 Infusion, Medical ONCE, 1 Branch dose, On 10/03/22 at 1945, STAT magnesium No 2g 2 g, IV Univ ers sulfate in 07-31 Piggyback, it y of water 2 02:30: 02:20 Administer Manuel as gram/50 mL 00 :00 over 60 Medica l (4 %) Minutes, Branch infusion 2 ONCE, 1 g dose, On Yojana 07/30/22 at 2130, Routine metoclopram No 10mg 10 mg, Uni vers diane HCl 07-31 Slow IV ity of (REGLAN) 01:45: 01:55 Push, [place] injection 00 :00 ONCE, 1 Medical 10 mg dose, On Branch Yojana 07/30/22 at 2044, EBENEZER diphenhydrA 2022- No 25mg 25 mg, Uni vers MINE 07-31 Slow IV ity of (BENADRYL) 01:45: 01:55 Push, [place] injection 00 :00 ONCE, 1 Medical 25 mg dose, On Branch Yojana 07/30/22 at 2044, STAT ketorolac 2022- No 15mg 15 mg, Unive rs (TORADOL) 5- 05-05 Slow IV ity of injection 01:09: 01:09 Push, ONCE [place] 15 mg 00 :00 NOW, 1 Medical dose, On Branch Yojana 07/30/22 at 2015, Routine NaCl 0.9% 2022- No 1000mL at 999 Uni vers (NS) bolus 07-31 05-05 mL/hr, ity of infusion 00:30: 01:07 1,000 mL, Manuel as 1,000 mL 00 :00 IV Medical Infusion, Branch ONCE, 1 dose, On Yojana 07/30/22 at 1930, EBENEZER Lactulose Lactulose No 15{ml} BID Lactulose 10 GM/15ML 10 GM/15ML -21 10 GM/15ML 00:00: 00 Metoprolol Metoprolol 2021-03 [...] by mouth [facility] MG tablet 18:09: nightly. [address] insulin 2021-03 Yes 35U Inject 35 [facility] S t aspart 2-08 Units [facility] protamine-i 18:09: [facility] nsulin [facility] Center aspart (two) (NOVOLOG times [...] by mouth [facility] MG tablet 18:09: nightly. [address] insulin 2021-03 Yes 35U Inject 35 CHI S t aspart 2-08 Units [facility] protamine-i 18:09: [facility] Medical nsulin [facility] 2 Center aspart (two) (NOVOLOG times [...] 00:00: 00:00 eeded} 00 :00 Benzonatate Benzonatate 2022-0 2022- No 1{capsu Benzonatat 200 MG 200 MG 11-10 le_as_n e 200 MG 00:00: 00:00 eeded} 00 :00 Benzonatate Benzonatate 2022-0 2022- No 1{capsu Benzonatat 200 MG 200 MG 11-10 le_as_n e 200 MG 00:00: 00:00 eeded} 00 :00 Benzonatate Benzonatate 2022-0 2022- No 1{capsu Benzonatat 200 MG 200 MG 11-10 le_as_n e 200 MG 00:00: 00:00 eeded} 00 :00 Benzonatate Benzonatate 2022-0 2022- No 1{capsu Benzonatat 200 MG 200 MG 11-10 le_as_n e 200 MG 00:00: 00:00 eeded} 00 :00 Cefdinir Cefdinir 2022-0 2022- No [...] 2022- No Cefdinir 300 MG 300 MG 10-0820 300 MG 00:00: 00:00 00 :00 Cefdinir Cefdinir 2022-0 2022- No Cefdinir 300 MG 300 MG 10-0820 300 MG 00:00: 00:00 00 :00 Cefdinir Cefdinir 2022-0 2022- No Cefdinir 300 MG 300 MG 7-13 07-20 300 MG 00:00: 00:00 00 :00 predniSONE predniSONE 2021-0 2- No QD predniSONE 20 MG 20 MG 10-08 20 MG 00:00: 00:00 00 :00 predniSONE predniSONE 2021-0 2021- No QD predniSONE 20 MG 20 MG 10-0818 20 MG 00:00: 00:00 00 :00 predniSONE [...] HCl 60 MG 00:00: 00 DULoxetine DULoxetine 0 No 1{capsu QD DULoxetine HCl 60 MG HCl 60 MG 6-01 le} HCl 60 MG 00:00: 00 DULoxetine DULoxetine 0 No [...] HCl 30 MG 00:00: 00 DULoxetine DULoxetine No 1{capsu QD DULoxetine HCl 30 MG [...] Ipratropium No 3{ml_as QID Ipratropiu -Albuterol -Albuterol 114 _needed m-Albutero 0.5-2.5 (3) 0.5-2.5 (3) 00:00: [...] by mouth ity of tablet 16:37: daily. [place] [address] Medical Branch Cholecalcif 2020-03 Yes Take by Uni vers mechelle, 2-14 mouth ity of Vitamin D3, 16:37: [place]. [place] 1,000 unit 13 Medical capsule Branch Magnesium 2020-03 Yes Take by Unive rs Oxide 500 2-14 mouth ity of mg Tab 16:37: daily. [place] [address] Medical Branch insulin 2020-03 Yes Inject as Unive rs regular, 2-14 directed ity of human 16:37: as needed. [place] (NOVOLIN R 13 Medical INJECTION) Branch zinc 2020-03 Yes Take by Univers sulfate 2-14 mouth. ity of (ZINC-15 16:37: [place] ORAL) Medical Branch citalopram 2020-03 Yes 20mg Take 20 mg U nivers 20 mg 2-14 by mouth ity of tablet 16:37: daily. [place] [address] Medical Branch ascorbic 2020-03 Yes 500mg Take 500 Univ ers acid, 2-14 mg by ity of vitamin C, 16:37: mouth [place] 500 mg 13 daily. Medical tablet Branch aspirin 81 2020-03 Yes 81mg Take 81 mg U nivers mg EC 2-14 by mouth ity of tablet 16:37: daily. [place] [address] Medical Branch Cholecalcif 2020-03 Yes Take by Uni vers mechelle, 2-14 mouth ity of Vitamin D3, 16:37: daily. [place] 1,000 unit 13 Medical capsule Branch Magnesium 2020-03 Yes Take by Unive rs Oxide 500 2-14 mouth ity of mg Tab 16:37: daily. [place] [address] Medical Branch insulin 2020-03 Yes Inject as Unive rs regular, 2-14 directed ity of human 16:37: as needed. [place] (NOVOLIN R 13 Medical INJECTION) Branch zinc 2020-03 Yes Take by Univers sulfate 2-14 mouth. ity of (ZINC-15 16:37: [place] ORAL) Medical Branch citalopram 2020-03 Yes 20mg Take 20 mg U nivers 20 mg 2-14 by mouth ity of tablet 16:37: daily. [place] [address] Medical Branch ascorbic 2020-03 Yes 500mg Take 500 Univ ers acid, 2-14 mg by ity of vitamin C, 16:37: mouth [place] 500 mg 13 daily. Medical tablet Branch aspirin 81 2020-03 Yes 81mg Take 81 mg U nivers mg EC 2-14 by mouth ity of tablet 16:37: daily. [place] [address] Medical Branch Cholecalcif 2020-03 Yes Take by Uni vers mechelle, 2-14 mouth ity of Vitamin D3, 16:37: daily. [place] 1,000 unit 13 Medical capsule Branch Magnesium 2020-03 Yes Take by Unive rs Oxide 500 2-14 mouth ity of mg Tab 16:37: daily. [place] [address] Medical Branch insulin 2020-03 Yes Inject as Unive rs regular, 2-14 directed ity of human 16:37: as needed. [place] (NOVOLIN R 13 Medical INJECTION) Branch zinc 2020-03 Yes Take by Univers sulfate 2-14 mouth. ity of (ZINC-15 16:37: [place] ORAL) Medical Branch citalopram 2020-03 Yes 20mg Take 20 mg U nivers 20 mg 2-14 by mouth ity of tablet 16:37: daily. [place] [address] Medical Branch ascorbic 2020-03 Yes 500mg Take 500 Univ ers acid, 2-14 mg by ity of vitamin C, 16:37: mouth [place] 500 mg 13 daily. Medical tablet Branch aspirin 81 2020-03 Yes 81mg Take 81 mg U nivers mg EC 2-14 by mouth ity of tablet 16:37: daily. [place] [address] Medical Branch Cholecalcif 2020-03 Yes Take by Uni vers mechelle, 2-14 mouth ity of Vitamin D3, 16:37: [place]000 [place] 13 Medical capsule Branch Magnesium 2020-03 Yes Take by Unive rs Oxide 500 2-14 mouth ity of mg Tab 16:37: daily. [place] [address] Medical Branch insulin 2020-03 Yes Inject as Unive rs regular, 2-14 directed ity of human 16:37: as needed. [place] (NOVOLIN R 13 Medical INJECTION) Branch zinc 2020-03 Yes Take by [facility] sulfate 2-14 mouth. ity of (ZINC-15 16:37: [place] ORAL) Medical Branch citalopram 2020-03 Yes 20mg Take 20 mg U nivers 20 mg 2-14 by mouth ity of tablet 16:37: daily. [place] [address] Medical Branch ascorbic 2020-03 Yes 500mg Take 500 Univ ers acid, 2-14 mg by ity of vitamin C, 16:37: mouth [place] 500 mg 13 daily. Medical tablet Branch aspirin 81 2020-03 Yes 81mg Take 81 mg U nivers mg EC 2-14 by mouth ity of tablet 16:37: daily. [place] [address] Medical Branch Cholecalcif 2020-03 Yes Take by Uni vers mechelle, 2-14 mouth ity of Vitamin D3, 16:37: daily. [place] 1[place]000 unit 13 Medical capsule Branch Magnesium 2020-03 Yes Take by Unive rs Oxide 500 2-14 mouth ity of mg Tab 16:37: daily. [place] [address] Medical Branch insulin 2020-03 Yes Inject as Unive rs regular, 2-14 directed ity of human 16:37: as needed. [place] (NOVOLIN R 13 Medical INJECTION) Branch zinc 2020-03 Yes Take by [facility] sulfate 2-14 mouth. ity of (ZINC-15 16:37: [place] ORAL) Medical Branch citalopram 2020-03 Yes 20mg Take 20 mg U nivers 20 mg 2-14 by mouth ity of tablet 16:37: daily. [place] [address] Medical Branch ascorbic 2020-03 Yes 500mg Take 500 Univ ers acid, 2-14 mg by ity of vitamin C, 16:37: mouth [place] 500 mg 13 daily. Medical tablet Branch aspirin 81 2020-03 Yes 81mg Take 81 mg U nivers mg EC 2-14 by mouth ity of tablet 16:37: daily. [place] [address] Medical Branch Cholecalcif 2020-03 Yes Take by Uni vers mechelle, 2-14 mouth ity of Vitamin D3, 16:37: daily. [place] 1,000 unit 13 Medical capsule Branch Magnesium 2020-03 Yes Take by Unive rs Oxide 500 2-14 mouth ity of mg Tab 16:37: daily. [place] [address] Medical Branch insulin 2020-03 Yes Inject as Univ ers regular, 2-14 directed ity of human 16:37: as needed. [place] (NOVOLIN R 13 Medical INJECTION) Branch zinc 2020-03 Yes Take by [facility] sulfate 2-14 mouth. ity of (ZINC-15 16:37: [place] ORAL) Medical Branch citalopram 2020-03 Yes 20mg Take 20 mg U nivers 20 mg 2-14 by mouth ity of tablet 16:37: daily. [place] [address] Medical Branch ascorbic 2020-03 Yes 500mg Take 500 Univ ers acid, 2-14 mg by ity of vitamin C, 16:37: mouth [place] 500 mg 13 daily. Medical tablet Branch aspirin 81 2020-03 Yes 81mg Take 81 mg U nivers mg EC 2-14 by mouth ity of tablet 16:37: daily. [place] 13 Medical Branch Cholecalcif 2020-03 Yes Take by Uni vers mechelle, 2-14 mouth ity of Vitamin D3, 16:37: [facility]. [facility] Branch Magnesium 2020-03 Yes Take by Unive rs Oxide 500 2-14 mouth ity of mg Tab 16:37: daily. [place] 13 Medical Branch insulin 2020-03 Yes Inject as Unive rs regular, 2-14 directed ity of human 16:37: as needed. [place] (NOVOLIN R 13 Medical INJECTION) Branch zinc 2020-03 Yes Take by Univers sulfate 2-14 mouth. ity of (ZINC-15 16:37: [place] ORAL) 13 Medical Branch citalopram 2020-03 Yes 20mg Take 20 mg U nivers 20 mg 2-14 by mouth ity of tablet 16:37: daily. [place] 13 Medical Branch metoprolol 2020-03 Yes [id number] 25mg Take 1 Univers succinate 1-12 tablet by ity o f XL 25 mg 24 00:00: mouth [place] hr tablet 00 daily. Medical Branch metoprolol 2020-03 Yes [id number] 25mg Take 1 Univers succinate 1-12 tablet by ity o f XL 25 mg 24 00:00: mouth [place] hr tablet 00 daily. Medical Branch metoprolol 2020-03 Yes [id number] 25mg Take 1 U nivers succinate 1-12 tablet by ity o f XL 25 mg 24 00:00: mouth [place] hr tablet 00 daily. Medical Branch metoprolol 2020-03 Yes [id number] 25mg Take 1 U nivers succinate 1-12 tablet by ity o f XL 25 mg 24 00:00: mouth [place] hr tablet 00 daily. Medical Branch metoprolol 2020-03 Yes [id number] 25mg Take 1 U nivers succinate 1-12 tablet by ity o f XL 25 mg 24 00:00: mouth [place] hr tablet 00 daily. Medical Branch metoprolol 2020-03 Yes [id number] 25mg Take 1 U nivers succinate 1-12 tablet by ity o f XL 25 mg 24 00:00: mouth [place] hr tablet 00 daily. Medical Branch metoprolol 2020-03 Yes [id number] 25mg Take 1 U nivers succinate 1-12 [...] MG 00:00: 25 MG 00 Ferrous Yes [id number] 1{tbl} Take 1 U nivers Fumarate 9-10 tablet by ity of 324 mg (106 00:00: mouth 2 [place] as mg iron) 00 (two) Medical Tab times Branch daily. Ferrous Yes [id number] 1{tbl} Take 1 U nivers Fumarate 9-10 tablet by ity of 324 mg (106 00:00: mouth 2 [place] as mg iron) 00 (two) Medical Tab times Branch daily. Ferrous Yes [id number] 1{tbl} Take 1 U nivers Fumarate 9-10 tablet by ity of 324 mg (106 00:00: mouth 2 [place] as mg iron) 00 (two) Medical Tab times Branch daily. Ferrous Yes [id number] 1{tbl} Take 1 U nivers Fumarate 9-10 tablet by ity of 324 mg (106 00:00: mouth 2 [place] as mg iron) 00 (two) Medical Tab times Branch daily. Ferrous Yes [id number] 1{tbl} Take 1 U nivers Fumarate 9-10 tablet by ity of 324 mg (106 00:00: mouth 2 [place] as mg iron) 00 (two) Medical Tab times Branch daily. Ferrous Yes [id number] 1{tbl} Take 1 U nivers Fumarate 9-10 tablet by ity of 324 mg (106 00:00: mouth 2 [place] as mg iron) 00 (two) Medical Tab times Branch daily. Ferrous Yes [id number] 1{tbl} Take 1 U nivers Fumarate 9-10 tablet by ity of 324 mg (106 00:00: mouth 2 [place] mg iron) 00 (two) Medical Tab times Branch daily. insulin NPH Yes [id number] 8U inject 8 Univers and regular 9-08 Units ity of human 70-30 00:00: under the [place] (NOVOLIN 00 skin 2 Medical 70/30 U-100 (two) Branch INSULIN) times 100 unit/mL daily (70-30) before injection breakfast and dinner. insulin NPH Yes [id number] 8U inject 8 [facility] and regular 9-08 Units ity of human 70-30 00:00: under the [place] (NOVOLIN 00 skin 2 Medical 70/30 U-100 (two) Branch INSULIN) times 100 unit/mL daily (70-30) before injection breakfast and dinner. insulin NPH Yes [id number] 8U inject 8 [facility] and regular 9-08 Units ity of human 70-30 00:00: under the [place] (NOVOLIN 00 skin 2 Medical 70/30 U-100 (two) Branch INSULIN) times 100 unit/mL daily (70-30) before injection breakfast and dinner. insulin NPH Yes [id number] 8U inject 8 [facility] and regular 9-08 Units ity of human 70-30 00:00: under the [place] (NOVOLIN 00 skin 2 Medical 70/30 U-100 (two) Branch INSULIN) times 100 unit/mL daily (70-30) before injection breakfast and dinner. insulin NPH Yes [id number] 8U inject 8 Univers and regular 9-08 Units ity of human 70-30 00:00: under the [place] (NOVOLIN 00 skin 2 Medical 70/30 U-100 (two) Branch INSULIN) times 100 unit/mL daily (70-30) before injection breakfast and dinner. insulin NPH Yes [id number] 8U inject 8 Univers and regular 9-08 Units ity of human 70-30 00:00: under the [place] (NOVOLIN 00 skin 2 Medical 70/30 U-100 (two) Branch INSULIN) times 100 unit/mL daily (70-30) before injection breakfast and dinner. insulin NPH Yes [id number] 8U inject 8 Univers and regular 9-08 Units ity of human 70-30 00:00: under the [place] (NOVOLIN 00 skin 2 Medical 70/30 U-100 (two) Branch INSULIN) times 100 unit/mL daily (70-30) before injection breakfast and dinner. SERTraline Yes [id number] 100mg Take 1 Univers 100 mg 9-06 tablet by ity of tablet 00:00: mouth [place] 00 daily. Medical Branch SERTraline 0 Yes [id number] 100mg Take 1 [facility] 100 mg 9-06 tablet by ity of tablet 00:00: mouth [place] 00 daily. Medical Branch SERTraline 0 Yes [id number] 100mg Take 1 [facility] 100 mg 9-06 tablet by ity of tablet 00:00: mouth [place] 00 daily. Medical Branch SERTraline Yes [id number] 100mg Take 1 [facility] 100 mg 9-06 tablet by ity of tablet 00:00: mouth [place] 00 daily. Medical Branch SERTraline Yes [id number] 100mg Take 1 [facility] 100 mg 9-06 tablet by ity of tablet 00:00: mouth [place] 00 daily. Medical Branch SERTraline Yes [id number] 100mg Take 1 [facility] 100 mg 9-06 tablet by ity of tablet 00:00: mouth [place] 00 daily. Medical Branch SERTraline Yes [id number] 100mg Take 1 [facility] 100 mg 9-06 tablet by ity of tablet 00:00: mouth [place] 00 daily. Medical Branch albuterol Yes [id number] 2{puff} Inhale 2 Univers 90 9-02 Puffs ity of mcg/actuati 00:00: every 6 [place] as on inhaler 00 (six) Medical hours as Branch needed for Wheezing or Shortness of Breath. albuterol Yes [id number] 2{puff} Inhale 2 Univers 90 9-02 Puffs ity of mcg/actuati 00:00: every 6 [place] as on inhaler 00 (six) Medical hours as Branch needed for Wheezing or Shortness of Breath. albuterol Yes [id number] 2{puff} Inhale 2 Univers 90 9-02 Puffs ity of mcg/actuati 00:00: every 6 [place] as on inhaler 00 (six) Medical hours as Branch needed for Wheezing or Shortness of Breath. albuterol 0 Yes [id number] 2{puff} Inhale 2 Univers 90 9-02 Puffs ity of mcg/actuati 00:00: every 6 [place] as on inhaler 00 (six) Medical hours as Branch needed for Wheezing or Shortness of Breath. albuterol 0 Yes [id number] 2{puff} Inhale 2 Univers 90 9-02 Puffs ity of mcg/actuati 00:00: every 6 [place] as on inhaler 00 (six) Medical hours as Branch needed for Wheezing or Shortness of Breath. albuterol 0 Yes [id number] 2{puff} Inhale 2 Univers 90 9-02 Puffs ity of mcg/actuati 00:00: every 6 [place] as on inhaler 00 (six) Medical hours as Branch needed for Wheezing or Shortness of Breath. albuterol 0 Yes [id number] 2{puff} Inhale 2 Univers 90 9-02 Puffs ity of mcg/actuati 00:00: every 6 [place] as on inhaler 00 (six) Medical hours as Branch needed for Wheezing or Shortness of Breath. gabapentin 2020-0 Yes [id number] 200mg Take 2 Univers 100 mg 7-20 capsules ity of capsule 00:00: by mouth [place] 00 every Medical evening. Branch gabapentin 2020-0 Yes [id number] 200mg Take 2 [facility] 100 mg 7-20 capsules ity of capsule 00:00: by mouth [place] 00 every Medical evening. Branch gabapentin 2020-0 Yes [id number] 200mg Take 2 [facility] 100 mg 7-20 capsules ity of capsule 00:00: by mouth [place] 00 every Medical evening. Branch gabapentin 2020-0 Yes [id number] 200mg Take 2 [facility] 100 mg 7-20 capsules ity of capsule 00:00: by mouth [place] 00 every Medical evening. Branch gabapentin 2020-0 Yes [id number] 200mg Take 2 [facility] 100 mg 7-20 capsules ity of capsule 00:00: by mouth [place] 00 every Medical evening. Branch gabapentin 2020-0 Yes [id number] 200mg Take 2 [facility] 100 mg 7-20 capsules ity of capsule 00:00: by mouth [place] 00 every Medical evening. Branch gabapentin 2020-0 Yes [id number] 200mg Take 2 Univers 100 mg 7-20 capsules ity of capsule 00:00: by mouth [place] 00 every Medical evening. Branch Methylcellu 2021-0 Yes [id number] 17g Take 17 g Univers lose, with 1-27 by mouth ity o f Sugar, 00:00: daily. [place] (CITRUCEL, 00 Medical SUCROSE,) Branch powder Methylcellu 2021-0 Yes [id number] 17g Take 17 g Univers lose, with 1-27 by mouth ity o f Sugar, 00:00: daily. [place] (CITRUCEL, 00 Medical SUCROSE,) Branch powder Methylcellu 2021-0 Yes [id number] 17g Take 17 g Univers lose, with 1-27 by mouth ity o f Sugar, 00:00: daily. [place] (CITRUCEL, 00 Medical SUCROSE,) Branch powder Methylcellu 2021-0 Yes [id number] 17g Take 17 g Univers lose, with 1-27 by mouth ity o f Sugar, 00:00: daily. [place] (CITRUCEL, 00 Medical SUCROSE,) Branch powder Methylcellu 2021-0 Yes [id number] 17g Take 17 g Univers lose, with 1-27 by mouth ity o f Sugar, 00:00: daily. [place] (CITRUCEL, 00 Medical SUCROSE,) Branch powder Methylcellu 2021-0 Yes [id number] 17g Take 17 g Univers lose, with 1-27 by mouth ity o f Sugar, 00:00: daily. [place] (CITRUCEL, 00 Medical SUCROSE,) Branch powder Methylcellu 2021-0 Yes [id number] 17g Take 17 g Univers lose, with 1-27 by mouth ity o f Sugar, 00:00: daily. [place] (CITRUCEL, 00 Medical SUCROSE,) Branch powder Belsomra Belsomra 2018-0 Yes Pricila 1 tablet Common 7-24 [place] at bedtime Spir it 00:00: as needed - [facility] 00 [facility] BusPIRone BusPIRone 2018-0 Yes Pricila 1 tablet Common HCl HCl 6-10 [place] as needed Spiri t 00:00: for - [facility] 00 anxiety [facility] Trazodone Trazodone 2018-0 Yes Pricila 1/2 to 1 Common HCl HCl 6-10 [place] tablet at Spiri t 00:00: bedtime as - [facility] 00 needed for [facility] Ventolin Ventolin Yes Pricila 2 puffs as Common HFA HFA 3-19 [place] needed for Spir it 00:00: sob/wheezi - [facility] 00 ng [facility] amitriptyli 2017- Yes 5mg Take [address] [facility] (ELAVIL) 9-20 by mouth [place] 10 MG 15:27: every Medical tablet 03 night as Center needed . busPIRone 2017- Yes 15mg Q.5D Take 15 mg [facility] [...] daily as needed for Muscle spasms. gabapentin Yes 300mg Q.5D Take [address] (NEURONTIN) 9-20 mg by [facility] 600 MG 15:27: mouth 2 Medical tablet 03 (two) Center times daily . simvastatin 2017- Yes 20mg QD Take [address] [facility] (ZOCOR) 20 9-20 by mouth [facility] MG tablet 15:27: nightly. Medi jorge l 03 Center insulin 2017 Yes 35U Inject 35 [facility] aspart 9-20 Units [facility] protamine-i 15:27: subcutaneo Medical nsulin 03 usly 2 Center aspart (two) (NOVOLOG times MIX 70/30) daily with 100 unit/mL breakfast (70-30) and Soln dinner. injection insulin 2017- Yes Inject [facility] aspart 9-20 subcutaneo [facility] (NOVOLOG) 15:27: usly 3 Medica l 100 unit/mL 03 (three) Cente r InPn times daily with meals. guaiFENesin 2017 Yes 200mg Take [address] (ROBITUSSIN 9-20 mg by [facility] ) 100 mg/5 15:27: mouth 3 Medi jorge l mL syrup 03 (three) Center times daily as needed for Cough. LORazepam 2017- Yes anxiety .5mg Take 0.5 [facility] [...] 2 Center tablet (two) times daily. clopidogrel Yes 75mg QD Take [address] [facility] (PLAVIX) 75 9-02 tablet (75 Dora kes mg tablet 00:00: mg total) Med ical 00 by mouth Center daily. pantoprazol Yes 40mg Q.5D Take [address] [facility] e 9-02 tablet (40 [facility] (PROTONIX) 00:00: mg total) Me dical 40 MG 00 by mouth 2 Center tablet (two) times daily. pantoprazol 2016-2- No 40mg Q.5D Take [address] [facility] e 9-02 10-31 tablet (40 [facility] (PROTONIX) 00:00: 00:00 mg total) M edical 40 MG 00 :00 by mouth 2 Center tablet (two) times daily. pantoprazol 2016-2- No 40mg Q.5D Take [address] [facility] e 9-02 10-31 tablet (40 [facility] (PROTONIX) 00:00: 00:00 mg total) M edical 40 MG 00 :00 by mouth 2 Center tablet (two) times daily. pantoprazol 2016-0 202- No 40mg Q.5D Take [address] [facility] 9-02 10-31 tablet (40 [facility] (PROTONIX) 00:00: 00:00 mg total) M edical 40 MG 00 :00 by mouth 2 Center tablet (two) times daily. clopidogrel 2017-0 2022- No 75mg QD [...] 00 :00 by mouth Center daily. metFORMIN 2017 Yes Resume if [facility] (GLUCOPHAGE 8-01 [...] l tablet 00 prior to Center admission. [facility] Yes 240 mL, Memori a oral powder 7-06 PO, l for 16:28: Q10Min, [place] reconstitut 00 Give jug ion for Colonoscop y, # 1 ea, 0 Refill(s), Pharmacy: [facility] [address] [facility] Yes 240 mL, Memori a oral powder 7-06 PO, l for 16:28: Q10Min, [place] [facility] 00 Give jug ion for Colonoscop y, # 1 ea, 0 Refill(s), Pharmacy: [facility] [address] [facility] Yes 240 mL, Memori a oral powder 7-06 PO, l for 16:28: Q10Min, [place] [facility] 00 Give jug ion for Colonoscop y, # 1 ea, 0 Refill(s), Pharmacy: [facility] [address] [place] [address] Yes 240 mL, Memori a oral powder 7-06 PO, l for 16:28: Q10Min, [place] [facility] 00 Give jug ion for Colonoscop y, # 1 ea, 0 Refill(s), Pharmacy: [facility] [address] [place] [address] Yes 240 mL, Memori a oral powder 7-06 PO, l for 16:28: Q10Min, [place] recon[facility]ut 00 Give jug ion for Colonoscop y, # 1 ea, 0 Refill(s), Pharmacy: [facility] [address] [place] [address] Yes 240 mL, Memori a oral powder 7-06 PO, l for 16:28: Q10Min, [place] [facility] 00 Give jug ion for Colonoscop y, # 1 ea, 0 Refill(s), Pharmacy: [facility] [address] [place] [address] Yes 240 mL, Memori a oral powder 7-06 PO, l for 16:28: Q10Min, [place] recon[facility] 00 Give jug ion for Colonoscop y, # 1 ea, 0 Refill(s), Pharmacy: [facility] [address] [place] [address] Yes 240 mL, Memori a oral powder 7-06 PO, l for 16:28: Q10Min, [place] recon[facility]ut 00 Give jug ion for Colonoscop y, # 1 ea, 0 Refill(s), Pharmacy: [facility] [address] [place] [address] Yes 240 mL, Memori a oral powder 7-06 PO, l for 16:28: Q10Min, [place] recon[facility]ut 00 Give jug ion for Colonoscop y, # 1 ea, 0 Refill(s), Pharmacy: [facility] [address] [place] [address] Yes 240 mL, Memori a oral powder 7-06 PO, l for 16:28: Q10Min, [place] recon[facility]ut 00 Give jug ion for Colonoscop y, # 1 ea, 0 Refill(s), Pharmacy: [facility] [address] [place] [address] Yes 240 mL, Memori a oral powder 7-06 PO, l for 16:28: Q10Min, [place] [facility] 00 Give jug ion for Colonoscop y, # 1 ea, 0 Refill(s), Pharmacy: [facility] [address] [place] [address] Yes 240 mL, Memori a oral powder 7-06 PO, l for 16:28: Q10Min, [place] [facility] 00 Give jug ion for Colonoscop y, # 1 ea, 0 Refill(s), Pharmacy: [facility] [address] [place] [address] Yes 240 mL, Memori a oral powder 7-06 PO, l for 16:28: Q10Min, [place] [facility] 00 Give jug ion for Colonoscop y, # 1 ea, 0 Refill(s), Pharmacy: [facility] [address] [place] [address] Yes 240 mL, Memori a oral powder 7-06 PO, l for 16:28: Q10Min, [place] [facility] 00 Give jug ion for Colonoscop y, # 1 ea, 0 Refill(s), Pharmacy: [facility] [address] [place] [address] Yes 240 mL, Memori a oral powder 7-06 PO, l for 16:28: Q10Min, [place] [facility] 00 Give jug ion for Colonoscop y, # 1 ea, 0 Refill(s), Pharmacy: [address] Yes 240 mL, Memori a oral powder 7-06 PO, l for 16:28: Q10Min, [place] [facility] 00 Give jug ion for Colonoscop y, # 1 ea, 0 Refill(s), Pharmacy: [facility] [address] [place] [address] Yes 240 mL, Memori a oral powder 7-06 PO, l for 16:28: Q10Min, [place] [facility] 00 Give jug ion for Colonoscop y, # 1 ea, 0 Refill(s), Pharmacy: [facility] Octreotide Yes See Memoria 0.2 MG/ML 4-06 [...] patient, Pt brought her own supply Octreotide 2017-0 Yes See Memoria 0.2 MG/ML - Instructio l Injectable 20:01: ns, 200 Herm kun Solution 00 microgram [Sandostati IM left n] gluteal muscle, # 1 box, 0 Refill(s), given to patient, Pt brought her own supply Octreotide 2017- Yes See Memoria 0.2 MG/ML - Instructio l Injectable 20:01: ns, 200 [facility] kun Solution 00 microgram [Sandostati IM left n] gluteal muscle, # 1 box, 0 Refill(s), given to patient, Pt brought her own supply Octreotide 2017-0 Yes See Memoria 0.2 MG/ML - Instructio l Injectable 20:01: ns, 200 Herm kun Solution 00 microgram [Sandostati IM left n] gluteal muscle, # 1 box, 0 Refill(s), given to patient, Pt brought her own supply Octreotide 2017- Yes See Memoria 0.2 MG/ML - Instructio l Injectable 20:01: ns, 200 Herm kun Solution 00 microgram [Sandostati IM left n] gluteal muscle, # 1 box, 0 Refill(s), given to patient, Pt brought her own supply Octreotide 2017- Yes See Memoria 0.2 MG/ML 07-02 Instructio l Injectable 20:01: ns, 200 Herm kun Solution 00 microgram [Sandostati IM left n] gluteal muscle, # 1 box, 0 Refill(s), given to patient, Pt brought her own supply Octreotide 2017- Yes See Memoria 0.2 MG/ML 07-02 Instructio l Injectable 20:01: ns, 200 Herm kun Solution 00 microgram [Sandostati IM left n] gluteal muscle, # 1 box, 0 Refill(s), given to patient, Pt brought her own supply Octreotide 2017-0 Yes See Memoria 0.2 MG/ML - Instructio l Injectable 20:01: ns, 200 Herm kun Solution 00 microgram [Sandostati IM left n] gluteal muscle, # 1 box, 0 Refill(s), given to patient, Pt brought her own supply Octreotide 2017-0 Yes See Memoria 0.2 MG/ML -06 Instructio l Injectable 20:01: ns, 200 Herm [...] Pt brought her own supply 200 ACTUAT 2017- Yes 2 puff, Jim maya Albuterol 4-06 INHALATION l 0.09 15:52: , Q4H, 0 [place] MG/ACTUAT 00 Refill(s) Dry Powder Inhaler ascorbic [...] PO, l MG Oral 15:52: BID, 0 [place] Capsule 00 Refill(s) [Colace] NovoLIN Yes SUB-Q, [...] tab, PO, l Tablet 15:52: Daily, 0 [place] [Plavix] 00 Refill(s) amitriptyli Yes 10 mg = 1 M emoria ne 10 mg 4-06 tab, PO, l oral tablet 15:52: Bedtime, # [place] 00 30 tab, 1 Refill(s) Omeprazole 2017 [...] maya 4-06 Daily, 0 l 15:52: Refill(s) [place] 00 magnesium Yes 500 mg = 1 Me moria oxide 500 4-06 tab, PO, l mg oral 15:52: Daily, 0 [place] n tablet 00 Refill(s) Tylenol Yes 500 mg, Memoria 4-06 PO, 0 l 15:52: Refill(s) [place] 00 200 ACTUAT Yes 2 puff, Jim maya Albuterol - INHALATION l 0.09 15:52: , Q4H, 0 [place] MG/ACTUAT 00 Refill(s) Dry Powder Inhaler ascorbic [...] [place]AR [place] 07-02 0 l 15:52: Refill(s) [place] 00 Docusate Yes 100 mg = 1 Mem oria Sodium 100 4-06 cap, PO, l MG Oral 15:52: BID, 0 [place] Capsule 00 Refill(s) [Colace] NovoLIN Yes SUB-Q, 0 Memori a 70/30 06 Refill(s) l 15:52: [place] 00 Metformin Yes 1,000 mg = Me [...] PO, l Tablet 15:52: BID, # 6 [place] 00 tab, 0 Refill(s) Ondansetron 2017 Yes 4 mg = 1 Me moria 4 MG Oral 4-06 tab, PO, l Tablet 15:52: Q8H, 0 [place] [Zofran] 00 Refill(s) clopidogrel 2017 Yes 75 mg = 1 M emoria 75 MG Oral 4-06 tab, PO, l Tablet 15:52: Daily, 0 [place] [Plavix] 00 Refill(s) amitriptyli 2017 Yes 10 mg = 1 M emoria ne 10 mg 4-06 tab, PO, l oral tablet 15:52: Bedtime, # [place] 00 30 tab, 1 Refill(s) Omeprazole Yes [...] tab, PO, l Tablet 15:52: Daily, 0 [place] [Lasix] 00 Refill(s) Insulin, 20170 Yes SUB-Q, Memoria Aspart, 4-06 TID-Before l Human 100 15:52: Meals, 0 Herm kun UNT/ML 00 Refill(s) Injectable Solution [NovoLog] Buspar 2017 Yes 15 mg, PO, Memor ia 4-06 BID, 0 l 15:52: Refill(s) [place] 00 Citalopram Yes 40 mg = 1 Me moria 40 MG Oral 4-06 tab, PO, l Tablet 15:52: Daily, 0 [place] [Celexa] 00 Refill(s) aspirin 81 Yes 81 [...] maya 07-02 Daily, 0 l 15:52: Refill(s) [place] 00 magnesium Yes 500 mg = 1 [...] tab, PO, l Tablet 15:52: TID, 0 [place] [Ativan] 00 Refill(s) SandoSTATIN Yes IM, q4wk, M emoria [place] 07-02 0 l 15:52: Refill(s) [place] 00 Docusate Yes 100 mg = 1 Mem oria Sodium 100 -06 cap, PO, l MG Oral 15:52: BID, 0 [place] Capsule 00 Refill(s) [Colace] NovoLIN Yes SUB-Q, 0 Memori a 70/30 4-06 Refill(s) l 15:52: [place] 00 Metformin 2017 Yes 1,000 mg = Me moria hydrochlori 4-06 1 tab, PO, l de 1000 MG 15:52: BID, 0 [place]isa nn Oral Tablet 00 Refill(s) gabapentin Yes 300 mg = 1 M emoria 300 MG Oral 4-06 cap, PO, l Capsule 15:52: BID, # 90 [place] nn 00 cap, 1 Refill(s) Famotidine 2017 [...] Refill(s) Insulin, 2017 Yes SUB-Q, Memoria Aspart, 4- TID-Before l Human 100 15:52: Meals, 0 Herm kun UNT/ML 00 Refill(s) Injectable Solution [NovoLog] Buspar Yes 15 mg, PO, Memor ia 4- BID, 0 l 15:52: Refill(s) [place] 00 Citalopram Yes 40 mg = 1 [...] , BID, 0 l 0.05 15:52: Refill(s) [place] MG/ACTUAT 00 Dry Powder Inhaler Miralax Yes 17 gm, PO, Jim maya 4- Daily, 0 l 15:52: Refill(s) [place] 00 magnesium Yes 500 mg = 1 Me moria oxide 500 - tab, PO, l mg oral 15:52: Daily, 0 [place] n tablet 00 Refill(s) Tylenol Yes 500 mg, Memoria -06 PO, 0 l 15:52: Refill(s) [place] 00 200 ACTUAT Yes 2 puff, Jim maya Albuterol 07-02 INHALATION l 0.09 15:52: , Q4H, 0 [place] MG/ACTUAT 00 Refill(s) Dry Powder Inhaler ascorbic Yes 500 mg = 1 Mem oria acid 500 mg 4-06 tab, PO, l oral tablet 15:52: Daily, 0 [place] 00 Refill(s) Lorazepam 2017-0 Yes 0.5 mg = 1 Me moria 0.5 MG Oral 4-06 tab, PO, l Tablet 15:52: TID, 0 [place] [Ativan] 00 Refill(s) SandoSTATIN 2017 Yes IM, q4wk, M emoria [place] 4-06 0 l 15:52: Refill(s) [place] 00 Docusate Yes 100 mg = 1 Mem oria Sodium 100 4-06 cap, PO, l MG Oral 15:52: BID, 0 [place] Capsule 00 Refill(s) [Colace] NovoLIN Yes SUB-Q, 0 Memori a 70/30 4-06 Refill(s) l 15:52: [place] 00 Metformin Yes 1,000 mg = Me [...] tab, PO, l Tablet 15:52: Q8H, 0 [place] [Zofran] 00 Refill(s) clopidogrel Yes 75 mg = 1 M emoria 75 MG Oral 4-06 tab, PO, l Tablet 15:52: Daily, 0 [place] [Plavix] 00 Refill(s) amitriptyli Yes 10 mg = 1 M emoria ne 10 mg 4-06 tab, PO, l oral tablet 15:52: Bedtime, # [place] 00 30 tab, 1 Refill(s) Omeprazole Yes [...] tab, PO, l Tablet 15:52: Daily, 0 [place] [Lasix] 00 Refill(s) Insulin, Yes SUB-Q, Memoria [...] ermann 00 Fluticasone Yes INHALATION Memoria propionate 4 , BID, 0 l 0.05 15:52: Refill(s) [place] MG/ACTUAT 00 Dry Powder Inhaler Miralax Yes 17 gm, PO, Jim maya 4-06 Daily, 0 l 15:52: Refill(s) [place] 00 magnesium Yes 500 mg = 1 Me moria oxide 500 4-06 tab, PO, l mg oral 15:52: Daily, 0 [place] n tablet 00 Refill(s) Tylenol Yes 500 mg, Memoria 4-06 PO, 0 l 15:52: Refill(s) [place] 00 200 ACTUAT Yes 2 puff, Jim maya Albuterol 4-06 INHALATION l 0.09 15:52: , Q4H, 0 [place] MG/ACTUAT 00 Refill(s) Dry Powder Inhaler ascorbic Yes 500 mg = 1 Mem oria acid 500 mg 4-06 tab, PO, l oral tablet 15:52: Daily, 0 [place] 00 Refill(s) Lorazepam Yes 0.5 mg = 1 Me moria 0.5 MG Oral 4-06 tab, PO, l Tablet 15:52: TID, 0 [place] [Ativan] 00 Refill(s) SandoSTATIN Yes IM, q4wk, M emoria [place] 406 0 l 15:52: Refill(s) [place] 00 Docusate Yes 100 mg = 1 Mem oria Sodium 100 4-06 cap, PO, l MG Oral 15:52: BID, 0 [place] Capsule 00 Refill(s) [Colace] NovoLIN Yes SUB-Q, [...] PO, l Tablet 15:52: BID, # 6 [place] 00 tab, 0 Refill(s) Ondansetron Yes 4 mg = 1 Me moria 4 MG Oral 4-06 tab, PO, l Tablet 15:52: Q8H, 0 [place] [Zofran] 00 Refill(s) clopidogrel Yes 75 mg = 1 M emoria 75 MG Oral 4-06 tab, PO, l Tablet 15:52: Daily, 0 [place] [Plavix] 00 Refill(s) amitriptyli 2017 Yes 10 mg = 1 M emoria ne 10 mg 4-06 tab, PO, l oral tablet 15:52: Bedtime, # [place] 00 30 tab, 1 Refill(s) Omeprazole 2017 [...] tab, PO, l Tablet 15:52: Daily, 0 [place] [Lasix] 00 Refill(s) Insulin, 2017 Yes SUB-Q, Memoria Aspart, 4-06 TID-Before l Human 100 15:52: Meals, 0 [facility] kun UNT/ML 00 Refill(s) Injectable Solution [NovoLog] Buspar 2017 Yes 15 mg, PO, Memor ia 4-06 BID, 0 l 15:52: Refill(s) [place] 00 Citalopram 2017 Yes 40 mg = 1 Me moria 40 MG Oral 4-06 tab, PO, l Tablet 15:52: Daily, 0 [place] [Celexa] 00 Refill(s) aspirin 81 2017 Yes [...] , BID, 0 l 0.05 15:52: Refill(s) [place] MG/ACTUAT 00 Dry Powder Inhaler Miralax Yes 17 gm, PO, Jim maya 4-06 Daily, 0 l 15:52: Refill(s) [place] 00 magnesium Yes 500 mg = 1 Me moria oxide 500 4-06 tab, PO, l mg oral 15:52: Daily, 0 [place] n tablet 00 Refill(s) Tylenol Yes 500 mg, Memoria 4-06 PO, 0 l 15:52: Refill(s) [place] 00 200 ACTUAT Yes 2 puff, Jim maya Albuterol 06 INHALATION l 0.09 15:52: , Q4H, 0 [place] MG/ACTUAT 00 Refill(s) Dry Powder Inhaler ascorbic [...] PO, l Tablet 15:52: BID, # 6 [place] 00 tab, 0 Refill(s) Ondansetron 2017 Yes 4 mg = 1 Me moria 4 MG Oral 4-06 tab, PO, l Tablet 15:52: Q8H, 0 [place] [Zofran] 00 Refill(s) clopidogrel 2017 Yes 75 [...] Memoria - PO, 0 l 15:52: Refill(s) [place] 00 200 ACTUAT Yes 2 puff, Jim maya Albuterol -06 INHALATION l 0.09 15:52: , Q4H, 0 [place] MG/ACTUAT 00 Refill(s) Dry Powder Inhaler ascorbic Yes 500 mg = 1 Mem oria acid 500 mg - tab, PO, l oral tablet 15:52: Daily, 0 [place] 00 Refill(s) Lorazepam Yes 0.5 mg = 1 Me moria 0.5 MG Oral 4-06 tab, PO, l Tablet 15:52: TID, 0 [place] [Ativan] 00 Refill(s) SandoSTATIN Yes IM, q4wk, M emoria [place] 06 0 l 15:52: Refill(s) [place] 00 Docusate Yes 100 mg = 1 Mem oria Sodium 100 -06 cap, PO, l MG Oral 15:52: BID, 0 [place] Capsule 00 Refill(s) [Colace] NovoLIN 2017 Yes SUB-Q, 0 Memori a 70/30 4-06 Refill(s) l 15:52: [place] 00 Metformin 2017 Yes 1,000 mg = [...] PO, l Tablet 15:52: BID, # 6 [place] 00 tab, 0 Refill(s) Ondansetron 2017 Yes [...] PO, l oral tablet 15:52: Bedtime, # [place] 00 30 tab, 1 Refill(s) Omeprazole 2017 [...] = 1 Me moria 20 MG Oral - tab, PO, l Tablet 15:52: Daily, 0 [place] [Lasix] 00 Refill(s) Insulin, 2017 Yes SUB-Q, Memoria Aspart, 07-02 TID-Before l Human 100 15:52: Meals, 0 [facility] UNT/ML 00 Refill(s) Injectable Solution [NovoLog] Buspar Yes 15 mg, PO, Memor ia 07-02 BID, 0 l 15:52: Refill(s) [place] 00 [...] , BID, 0 l 0.05 15:52: Refill(s) [place] MG/ACTUAT 00 Dry Powder Inhaler Miralax Yes 17 gm, PO, Jim maya 07-02 Daily, 0 l 15:52: Refill(s) [place] 00 magnesium Yes 500 mg = 1 Me moria oxide 500 - tab, PO, l mg oral 15:52: Daily, 0 [place] n tablet 00 Refill(s) Tylenol Yes 500 mg, Memoria - PO, 0 l 15:52: Refill(s) [place] 00 [...] 15:52: TID, 0 [place] [Ativan] 00 Refill(s) 200 ACTUAT Yes 2 puff, Jim maya Albuterol 4-06 INHALATION l 0.09 15:52: , Q4H, 0 [place] MG/ACTUAT 00 Refill(s) Dry Powder Inhaler ascorbic Yes 500 mg = 1 Mem oria acid 500 mg 4-06 tab, PO, l oral tablet 15:52: Daily, 0 [place] 00 Refill(s) Lorazepam Yes 0.5 mg = 1 Me moria 0.5 MG Oral 4-06 tab, PO, l Tablet 15:52: TID, 0 [place] [Ativan] 00 Refill(s) SandoSTATIN Yes IM, q4wk, M emoria [place] 06 0 l 15:52: Refill(s) [place] 00 Docusate Yes 100 mg = 1 Mem oria Sodium 100 4-06 cap, PO, l MG Oral 15:52: BID, 0 [place] Capsule 00 Refill(s) [Colace] NovoLIN Yes SUB-Q, 0 Memori a 70/30 4-06 Refill(s) l 15:52: [place] 00 Metformin Yes 1,000 mg = Me [...] PO, l Tablet 15:52: BID, # 6 [place] 00 tab, 0 Refill(s) Ondansetron Yes 4 mg = 1 Me moria 4 MG Oral 4-06 tab, PO, l Tablet 15:52: Q8H, 0 [place] [Zofran] 00 Refill(s) SandoSTATIN 2017 Yes IM, q4wk, M emoria [place] 4-06 0 l 15:52: Refill(s) [place] 00 clopidogrel Yes 75 mg = 1 M emoria 75 MG Oral 4-06 tab, PO, l Tablet 15:52: Daily, 0 [place] [Plavix] 00 Refill(s) amitriptyli 2017 Yes 10 [...] 15:52: Daily, 0 [place] [Celexa] 00 Refill(s) Docusate Yes 100 mg = 1 Mem oria Sodium 100 4-06 cap, PO, l MG Oral 15:52: BID, 0 [place] Capsule 00 Refill(s) [Colace] aspirin 81 Yes 81 mg = 1 Me moria mg tablet, 4-06 tab, PO, l enteric 15:52: Daily, # [place] n coated 00 90 tab, 3 Refill(s) Vitamin B Yes 1 tab, PO, Me moria Complex 4-06 Daily, 0 l oral tablet 15:52: Refill(s) [place] 00 Fluticasone Yes INHALATION Memoria propionate 4-06 , BID, 0 l 0.05 15:52: Refill(s) [place] MG/ACTUAT 00 Dry Powder Inhaler Miralax Yes 17 gm, PO, Jim maya 4-06 Daily, 0 l 15:52: Refill(s) [place] magnesium Yes 500 mg = 1 Me moria oxide 500 4-06 tab, PO, l mg oral 15:52: Daily, 0 [place] n tablet 00 Refill(s) Tylenol Yes 500 mg, Memoria 4-06 PO, 0 l 15:52: Refill(s) [place] 00 NovoLIN Yes SUB-Q, 0 Memori a 70/30 4-06 Refill(s) l 15:52: [place] 00 Metformin Yes 1,000 mg = Me [...] PO, l Tablet 15:52: BID, # 6 [place] 00 tab, 0 Refill(s) Ondansetron Yes 4 [...] PO, l oral tablet 15:52: Bedtime, # [place] 00 30 tab, 1 Refill(s) Omeprazole Yes [...] 07-02 Daily, 0 l 15:52: Refill(s) [place] magnesium Yes 500 mg = 1 Me moria oxide 500 07-02 tab, PO, l mg oral 15:52: Daily, 0 [place] n tablet 00 Refill(s) Tylenol Yes 500 mg, Memoria 07-02 PO, 0 l 15:52: Refill(s) [place] 00 200 ACTUAT Yes 2 puff, Jim maya Albuterol 07-02 INHALATION l 0.09 15:52: , Q4H, 0 [place] MG/ACTUAT 00 Refill(s) Dry Powder Inhaler ascorbic [...] [place] 07-02 0 l 15:52: Refill(s) [place] 00 Docusate Yes 100 mg = 1 Mem oria Sodium 100 07-02 cap, PO, l MG Oral 15:52: BID, 0 [place] Capsule 00 Refill(s) [Colace] NovoLIN Yes SUB-Q, 0 Memori a 70/30 06 Refill(s) l 15:52: [place] 00 Metformin Yes 1,000 mg = Me [...] tab, PO, l Tablet 15:52: Q8H, 0 [place] [Zofran] 00 Refill(s) clopidogrel 2017 Yes 75 mg = 1 M emoria 75 MG Oral 4-06 tab, PO, l Tablet 15:52: Daily, 0 [place] [Plavix] 00 Refill(s) amitriptyli Yes 10 mg = 1 M emoria ne 10 mg 4-06 tab, PO, l oral tablet 15:52: Bedtime, # [place] 00 30 tab, 1 Refill(s) Omeprazole 2017 [...] tab, PO, l Tablet 15:52: Daily, 0 [place] [Lasix] 00 Refill(s) Insulin, 2017 Yes SUB-Q, Memoria Aspart, 4-06 TID-Before l Human 100 15:52: Meals, 0 [facility] kun UNT/ML 00 Refill(s) Injectable Solution [NovoLog] Buspar Yes 15 mg, PO, Memor ia 4-06 BID, 0 l 15:52: Refill(s) [place] 00 Citalopram Yes 40 mg = 1 Me moria 40 MG Oral 4-06 tab, PO, l Tablet 15:52: Daily, 0 [place] [Celexa] 00 Refill(s) aspirin 81 2017 Yes [...] , BID, 0 l 0.05 15:52: Refill(s) [place] MG/ACTUAT 00 Dry Powder Inhaler Miralax Yes 17 gm, PO, Jim maya 4- Daily, 0 l 15:52: Refill(s) [place] 00 magnesium Yes 500 mg = 1 Me moria oxide 500 - tab, PO, l mg oral 15:52: Daily, 0 [place] n tablet 00 Refill(s) Tylenol Yes 500 mg, Memoria 4-06 PO, 0 l 15:52: Refill(s) [place] 00 200 ACTUAT Yes 2 puff, Jim [...] [place] 4-06 0 l 15:52: Refill(s) [place] 00 Docusate 2017 Yes 100 mg = [...] PO, l Tablet 15:52: BID, # 6 [place] 00 tab, 0 Refill(s) Ondansetron 2017 Yes 4 mg = 1 Me moria 4 MG Oral 4-06 tab, PO, l Tablet 15:52: Q8H, 0 [place] [Zofran] 00 Refill(s) clopidogrel 2017 Yes 75 mg = 1 M emoria 75 MG Oral 4-06 tab, PO, l Tablet 15:52: Daily, 0 [place] [Plavix] 00 Refill(s) amitriptyli 2017 Yes 10 mg = 1 M emoria ne 10 mg 4-06 tab, PO, l oral tablet 15:52: Bedtime, # [place] 00 30 tab, 1 Refill(s) Omeprazole 2017 [...] tab, PO, l Tablet 15:52: Daily, 0 [place] [Celexa] 00 Refill(s) aspirin 81 Yes 81 mg = 1 Me moria mg tablet, 4-06 tab, PO, l enteric 15:52: Daily, # [place] n coated 00 90 tab, 3 Refill(s) Vitamin B Yes 1 tab, PO, Me moria Complex 4-06 Daily, 0 l oral tablet 15:52: Refill(s) [place] 00 Fluticasone Yes INHALATION Memoria propionate 4-06 , BID, 0 l 0.05 15:52: Refill(s) [place] MG/ACTUAT 00 Dry Powder Inhaler Miralax Yes 17 gm, PO, Jim maya 4-06 Daily, 0 l 15:52: Refill(s) [place] 00 magnesium Yes 500 mg = 1 [...] tab, PO, l Tablet 15:52: TID, 0 [place] [Ativan] 00 Refill(s) SandoSTATIN Yes IM, q4wk, M emoria [place] 4-06 0 l 15:52: Refill(s) [place] 00 Docusate Yes 100 mg = 1 Mem oria Sodium 100 4-06 cap, PO, l MG Oral 15:52: BID, 0 [place] Capsule 00 Refill(s) [Colace] NovoLIN Yes SUB-Q, 0 Memori a 70/30 4-06 Refill(s) l 15:52: [place] 00 Metformin Yes 1,000 mg = Me [...] tab, PO, l Tablet 15:52: Q8H, 0 [place] [Zofran] 00 Refill(s) clopidogrel Yes 75 mg [...] ia 4-06 BID, 0 l 15:52: Refill(s) [place] 00 Citalopram Yes 40 mg = 1 Me moria 40 MG Oral 4-06 tab, PO, l Tablet 15:52: Daily, 0 [place] [Celexa] 00 Refill(s) aspirin 81 Yes 81 mg = 1 Me moria mg tablet, 4-06 tab, PO, l enteric 15:52: Daily, # [place] n coated 00 90 tab, 3 Refill(s) Vitamin B Yes 1 tab, PO, Me moria Complex 4-06 Daily, 0 l oral tablet 15:52: Refill(s) [place] 00 Fluticasone Yes INHALATION Memoria propionate 07-02 , BID, 0 l 0.05 15:52: Refill(s) [place] MG/ACTUAT 00 Dry Powder Inhaler Miralax Yes [...] [place] 06 0 l 15:52: Refill(s) [place] 00 Docusate Yes 100 mg = 1 Mem oria Sodium 100 4-06 cap, PO, l MG Oral 15:52: BID, 0 [place] Capsule 00 Refill(s) [Colace] NovoLIN Yes SUB-Q, 0 Memori a 70/30 4-06 Refill(s) l 15:52: [place] 00 Metformin Yes 1,000 mg = Me [...] PO, l oral tablet 15:52: Bedtime, # [place] 00 30 tab, 1 Refill(s) Omeprazole 2017 [...] tab, PO, l Tablet 15:52: Daily, 0 [place] [Lasix] 00 Refill(s) Insulin, 2017 Yes SUB-Q, [...] ermann 00 Fluticasone Yes INHALATION Memoria propionate 406 , BID, 0 l 0.05 15:52: Refill(s) [place] MG/ACTUAT 00 Dry Powder Inhaler Miralax Yes 17 gm, PO, Jim maya 4- Daily, 0 l 15:52: Refill(s) [place] magnesium Yes 500 mg = 1 Me moria oxide 500 - tab, PO, l mg oral 15:52: Daily, 0 [place] n tablet 00 Refill(s) Tylenol Yes 500 mg, Memoria - PO, 0 l 15:52: Refill(s) [place] 00 200 ACTUAT Yes 2 puff, Jim maya Albuterol - INHALATION l 0.09 15:52: , Q4H, 0 [place] MG/ACTUAT 00 Refill(s) Dry Powder Inhaler ascorbic Yes 500 mg = 1 Mem oria acid 500 mg -06 tab, PO, l oral tablet 15:52: Daily, 0 [place] 00 Refill(s) Lorazepam Yes 0.5 mg = 1 Me moria 0.5 MG Oral 06 tab, PO, l Tablet 15:52: TID, 0 [place] [Ativan] 00 Refill(s) SandoSTATIN Yes IM, q4wk, M emoria [place] 07-02 0 l 15:52: Refill(s) [place] 00 Docusate Yes 100 mg = 1 Mem oria Sodium 100 -06 cap, PO, l MG Oral 15:52: BID, 0 [place] Capsule 00 Refill(s) [Colace] NovoLIN Yes SUB-Q, 0 Memori a 70/30 -06 Refill(s) l 15:52: [place] 00 Metformin Yes 1,000 mg = Me [...] tab, PO, l Tablet 15:52: Daily, 0 [place] [Plavix] 00 Refill(s) amitriptyli 2017 Yes 10 [...] tab, PO, l Tablet 15:52: Daily, 0 [place] [Lasix] 00 Refill(s) Insulin, 2017 Yes SUB-Q, [...] maya 4- Daily, 0 l 15:52: Refill(s) [place] 00 magnesium Yes 500 mg = 1 Me moria oxide 500 4-06 tab, PO, l mg oral 15:52: Daily, 0 [place] n tablet 00 Refill(s) Tylenol Yes 500 mg, Memoria -06 PO, 0 l 15:52: Refill(s) [place] 00 200 ACTUAT Yes 2 puff, Jim [...] PO, l MG Oral 15:52: BID, 0 [place] Capsule 00 Refill(s) [Colace] NovoLIN 2017 Yes SUB-Q, 0 Memori a 70/30 4-06 Refill(s) l 15:52: [place] 00 Metformin Yes 1,000 mg = Me [...] tab, PO, l Tablet 15:52: Q8H, 0 [place] [Zofran] 00 Refill(s) clopidogrel Yes 75 mg = 1 M emoria 75 MG Oral 4-06 tab, PO, l Tablet 15:52: Daily, 0 [place] [Plavix] 00 Refill(s) amitriptyli Yes 10 mg = 1 M emoria ne 10 mg 4-06 tab, PO, l oral tablet 15:52: Bedtime, # [place] 00 30 tab, 1 Refill(s) Omeprazole Yes [...] tab, PO, l Tablet 15:52: Daily, 0 [place] [Lasix] 00 Refill(s) Insulin, 2017 Yes SUB-Q, Memoria Aspart, 07-02 TID-Before l Human 100 15:52: Meals, 0 [facility] kun UNT/ML 00 Refill(s) Injectable Solution [NovoLog] Buspar Yes 15 mg, PO, Memor ia 4-06 BID, 0 l 15:52: Refill(s) [place] 00 Citalopram Yes 40 mg = 1 Me moria 40 MG Oral 4-06 tab, PO, l Tablet 15:52: Daily, 0 [place] [Celexa] 00 Refill(s) aspirin 81 Yes 81 [...] maya 4-06 Daily, 0 l 15:52: Refill(s) [place] 00 magnesium Yes 500 mg = 1 Me moria oxide 500 4-06 tab, PO, l mg oral 15:52: Daily, 0 [place] n tablet 00 Refill(s) Tylenol Yes 500 mg, Memoria 4-06 PO, 0 l 15:52: Refill(s) [place] 00 200 ACTUAT Yes 2 puff, Jim maya Albuterol 4-06 INHALATION l 0.09 15:52: , Q4H, 0 [place] MG/ACTUAT 00 Refill(s) Dry Powder Inhaler ascorbic Yes 500 mg = 1 Mem oria acid 500 mg 4-06 tab, PO, l oral tablet 15:52: Daily, 0 [place] 00 Refill(s) Lorazepam Yes 0.5 mg = 1 Me moria 0.5 MG Oral 4-06 tab, PO, l Tablet 15:52: TID, 0 [place] [Ativan] 00 Refill(s) SandoSTATIN Yes IM, q4wk, M emoria [place] 406 0 l 15:52: Refill(s) [place] 00 Docusate Yes 100 mg = 1 Mem oria Sodium 100 4-06 cap, PO, l MG Oral 15:52: BID, 0 [place] Capsule 00 Refill(s) [Colace] NovoLIN Yes SUB-Q, 0 Memori a 70/30 4-06 Refill(s) l 15:52: [place] 00 Metformin Yes 1,000 mg = Me [...] tab, PO, l Tablet 15:52: Q8H, 0 [place] [Zofran] 00 Refill(s) clopidogrel Yes 75 mg = 1 M emoria 75 MG Oral 4-06 tab, PO, l Tablet 15:52: Daily, 0 [place] [Plavix] 00 Refill(s) amitriptyli Yes 10 mg = 1 M emoria ne 10 mg 4-06 tab, PO, l oral tablet 15:52: Bedtime, # [place] 00 30 tab, 1 Refill(s) Omeprazole 2017 [...] Memoria 4-06 PO, 0 l 15:52: Refill(s) [place] 00 200 ACTUAT Yes 2 puff, Jim maya Albuterol 06 INHALATION l 0.09 15:52: , Q4H, 0 [place] MG/ACTUAT 00 Refill(s) Dry Powder Inhaler ascorbic Yes 500 mg = 1 Mem oria acid 500 mg 4-06 tab, PO, l oral tablet 15:52: Daily, 0 [place] 00 Refill(s) Lorazepam Yes 0.5 mg = 1 Me moria 0.5 MG Oral 4-06 tab, PO, l Tablet 15:52: TID, 0 [place] [Ativan] 00 Refill(s) SandoSTATIN Yes IM, q4wk, M emoria [place] 06 0 l 15:52: Refill(s) [place] 00 Docusate Yes 100 mg = 1 Mem oria Sodium 100 4-06 cap, PO, l MG Oral 15:52: BID, 0 [place] Capsule 00 Refill(s) [Colace] NovoLIN Yes SUB-Q, 0 Memori a 70/30 -06 Refill(s) l 15:52: [place] 00 Metformin Yes 1,000 mg = Me [...] tab, PO, l Tablet 15:52: Q8H, 0 [place] [Zofran] 00 Refill(s) clopidogrel 2017 Yes 75 mg = 1 M emoria 75 MG Oral 4-06 tab, PO, l Tablet 15:52: Daily, 0 [place] [Plavix] 00 Refill(s) amitriptyli Yes 10 mg = 1 M emoria ne 10 mg 4-06 tab, PO, l oral tablet 15:52: Bedtime, # [place] 00 30 tab, 1 Refill(s) Omeprazole Yes [...] , BID, 0 l 0.05 15:52: Refill(s) [place] MG/ACTUAT Dry Powder Inhaler Miralax Yes 17 gm, PO, Jim maya 07-02 Daily, 0 l 15:52: Refill(s) magnesium Yes 500 mg = 1 Me moria oxide 500 - tab, PO, l mg oral 15:52: Daily, 0 [place] n tablet 00 Refill(s) Tylenol Yes 500 mg, Memoria -06 PO, 0 l 15:52: Refill(s) [place] 00 Citalopram Citalopram Yes Pricila 1 tablet [facility] Hydrobromid Hydrobromid [facility] Vitamin D Vitamin D Yes Pricila 1 tablet [facility] Metformin Metformin Yes Pricila 1 tablet [facility] HCl HCl [facility] meal [facility] Vitamin C Vitamin C Yes Pricila as Comm on [facility] Aspirin Aspirin Yes Pricila 1 tablet Comm on Adult Low Adult Low [facility] - [facility] Gabapentin Gabapentin Yes Pricila 2 capsules [facility] Vitamin B Vitamin B Yes Pricila as Comm on Complex Complex [facility] directed [facility] Aspirin Aspirin No 1{table QD [...] (PPSV23) 2022-04-30 Completed [facility] - 14:13:00 [facility] Pneumovax (PPSV23) Pneumovax (PPSV23) 2022-04-30 Completed [facility] - 14:13:00 [facility] FLUZONE HIGH DOSE FLUZONE HIGH DOSE 2021-12-30 Completed [facility] - OVER 65 OVER 65 14:13:00 [facility] FLUZONE HIGH DOSE FLUZONE HIGH DOSE 2021-12-30 Completed [facility] - OVER 65 OVER 65 14:13:00 [facility] FLUZONE HIGH DOSE FLUZONE HIGH DOSE 2021-12-30 Completed [facility] - OVER 65 OVER 65 14:13:00 [facility] FLUZONE HIGH DOSE FLUZONE HIGH DOSE 2021-12-30 Completed [facility] - OVER 65 OVER 65 14:13:00 [facility] FLUZONE HIGH DOSE FLUZONE HIGH DOSE 2021-12-30 Completed [facility] - OVER 65 OVER 65 14:13:00 [facility] FLUZONE HIGH DOSE FLUZONE HIGH DOSE 2021-12-30 Completed [facility] - OVER 65 OVER 65 14:13:00 [facility] FLUZONE HIGH DOSE FLUZONE HIGH DOSE 2021-12-30 Completed [facility] - OVER 65 OVER 65 14:13:00 [facility] FLUZONE HIGH DOSE FLUZONE HIGH DOSE 2021-12-30 Completed [facility] - OVER 65 OVER 65 14:13:00 [facility] FLUZONE HIGH DOSE FLUZONE HIGH DOSE 2021-12-30 Completed [facility] - OVER 65 OVER 65 14:13:00 [facility] FLUZONE HIGH DOSE FLUZONE HIGH DOSE 2021-12-30 Completed [facility] - OVER 65 OVER 65 14:13:00 [facility] FLUZONE HIGH DOSE FLUZONE HIGH DOSE 2021-12-30 Completed [facility] - OVER 65 OVER 65 14:13:00 [facility] FLUZONE HIGH DOSE FLUZONE HIGH DOSE 2021-12-30 Completed [facility] - OVER 65 OVER 65 14:13:00 [facility] FLUZONE HIGH DOSE FLUZONE HIGH DOSE 2021-12-30 Completed [facility] - OVER 65 OVER 65 14:13:00 [facility] FLUZONE HIGH DOSE FLUZONE HIGH DOSE 2021-12-30 Completed [facility] - OVER 65 OVER 65 14:13:00 [facility] FLUZONE HIGH DOSE FLUZONE HIGH DOSE 2021-12-30 Completed [facility] - OVER 65 OVER 65 14:13:00 [facility] FLUZONE HIGH DOSE FLUZONE HIGH DOSE 2021-12-30 Completed [facility] - OVER 65 OVER 65 14:13:00 [facility] FLUZONE HIGH DOSE FLUZONE HIGH DOSE 2021-12-30 Completed [facility] - OVER 65 OVER 65 14:13:00 [facility] FLUZONE HIGH DOSE FLUZONE HIGH DOSE 2021-12-30 Completed [facility] - OVER 65 OVER 65 14:13:00 [facility] FLUZONE HIGH DOSE FLUZONE HIGH DOSE 2021-12-30 Completed [facility] - OVER 65 OVER 65 14:13:00 [facility] FLUZONE HIGH DOSE FLUZONE HIGH DOSE 2021-12-30 Completed [facility] - OVER 65 OVER 65 14:13:00 [facility] FLUZONE HIGH DOSE FLUZONE HIGH DOSE 2021-12-30 Completed [facility] - OVER 65 OVER 65 14:13:00 [facility] FLUZONE HIGH DOSE FLUZONE HIGH DOSE 2021-12-30 Completed [facility] - OVER 65 OVER 65 14:13:00 [facility] FLUZONE HIGH DOSE FLUZONE HIGH DOSE 2021-12-30 Completed [facility] - OVER 65 OVER 65 14:13:00 [facility] FLUZONE HIGH DOSE FLUZONE HIGH DOSE 2021-12-30 Completed [facility] - OVER 65 OVER 65 14:13:00 [facility] FLUZONE HIGH DOSE FLUZONE HIGH DOSE 2021-12-30 Completed [facility] - OVER 65 OVER 65 14:13:00 [facility] FLUZONE HIGH DOSE FLUZONE HIGH DOSE 2021-12-30 Completed [facility] - OVER 65 OVER 65 14:13:00 [facility] Shingrix Shingrix 2021-01-26 Completed [facility] - 09:39:00 [facility] Shingrix Shingrix 2021-01-26 Completed [facility] - 09:39:00 [facility] Shingrix Shingrix 2021-01-26 Completed [facility] - 09:39:00 [facility] Shingrix Shingrix 2021-01-26 Completed [facility] - 09:39:00 [facility] Shingrix Shingrix 2021-01-26 Completed [facility] - 09:39:00 [facility] Shingrix Shingrix 2021-01-26 Completed [facility] - 09:39:00 [facility] Shingrix Shingrix 2021-01-26 Completed [facility] - 09:39:00 [facility] Shingrix Shingrix 2021-01-26 Completed [facility] - 09:39:00 [facility] Shingrix Shingrix 2021-01-26 Completed [facility] - 09:39:00 [facility] Shingrix Shingrix 2021-01-26 Completed [facility] - 09:39:00 [facility] Shingrix Shingrix 2021-01-26 Completed [facility] - 09:39:00 [facility] Shingrix Shingrix 2021-01-26 Completed [facility] - 09:39:00 [facility] Shingrix Shingrix 2021-01-26 Completed [facility] - 09:39:00 [facility] Shingrix Shingrix 2021-01-26 Completed [facility] - 09:39:00 [facility] Shingrix Shingrix 2021-01-26 Completed [facility] - 09:39:00 [facility] Shingrix Shingrix 2021-01-26 Completed [facility] - 09:39:00 [facility] Shingrix Shingrix 2021-01-26 Completed [facility] - 09:39:00 [facility] Shingrix Shingrix 2021-01-26 Completed [facility] - 09:39:00 [facility] Shingrix Shingrix 2021-01-26 Completed [facility] - 09:39:00 [facility] Shingrix Shingrix 2021-01-26 Completed [facility] - 09:39:00 [facility] Shingrix Shingrix 2021-01-26 Completed [facility] - 09:39:00 [facility] Shingrix Shingrix 2021-01-26 Completed [facility] - 09:39:00 [facility] Shingrix Shingrix 2021-01-26 Completed [facility] - 09:39:00 [facility] Shingrix Shingrix 2021-01-26 Completed [facility] - 09[facility]39:00 [facility] Shingrix 2021-01-26 Completed [facility] - 09[facility]39:00 [facility] Sh[facility] 2021-01-26 Completed [facility] - 09[facility]39:00 [facility] Sh[facility] 2021-01-26 Completed [facility] - 09[facility]39:00 [facility] Shingrix 2021-01-26 Completed [facility] - 09[facility]39:00 [facility] Sh[facility] 2021-01-26 Completed [facility] - 09[facility]39:00 [facility] Sh[facility] 2021-01-26 Completed [facility] - 09[facility]39:00 [facility] Sh[facility] 2021-01-26 Completed [facility] - 09[facility]39:00 [facility] Sh[facility] 2021-01-26 Completed [facility] - 09:39:00 [facility] Sh[facility] 2021-01-26 Completed [facility] - 09[facility]39:00 [facility] Sh[facility] 2021-01-26 Completed [facility] - 09:39:00 [facility] 2021-01-26 Completed [facility] - 09:39:00 [facility] [facility] Shingrix 2021-01-26 Completed [facility] - 09:39:00 [facility] Shingrix Shingrix 2021-01-26 Completed [facility] - 09:39:00 [facility] Shingrix Shingrix 2021-01-26 Completed [facility] - 09:39:00 [facility] Shingrix Shingrix 2021-01-26 Completed [facility] - 09[facility]39:00 [facility] Shingrix Shingrix 2021-01-26 Completed [facility] - 09[facility]39:00 [facility] Shingrix Shingrix 2021-01-26 Completed [facility] - 09[facility]39:00 [facility] Shingrix Shingrix 2021-01-26 Completed [facility] - 09:39:00 [facility] Shingrix Shingrix 2021-01-26 Completed [facility] - 09[facility]39:00 [facility] Shingrix Shingrix 2021-01-26 Completed [facility] - 09:39:00 [facility] Shingrix Shingrix 2021-01-26 Completed [facility] - 09[facility]39:00 [facility] Shingrix Shingrix 2021-01-26 Completed [facility] - 09[facility]39:00 [facility] Shingrix Shingrix 2021-01-26 Completed [facility] 09[facility]39:00 [facility] Shingrix Shingrix 2021-01-26 Completed [facility] - 09[facility]39:00 [facility] Shingrix Shingrix 2021-01-26 Completed [facility] - 09:39:00 [facility] Shingrix Shingrix 2021-01-26 Completed [facility] - 09:39:00 [facility] Shingrix Shingrix 2021-01-26 Completed [facility] - 09:39:00 [facility] Shingrix Shingrix 2021-01-26 Completed [facility] - 09[facility]39:00 [facility] Shingrix Shingrix 2021-01-26 Completed [facility] 09:39:00 [facility] Shingrix Shingrix 2021-01-26 Completed [facility] 09[facility]39:00 [facility] Shingrix Shingrix 2021-01-26 Completed [facility] - 09:39:00 [facility] Shingrix Shingrix 2021-01-26 Completed [facility] 09[facility]39:00 [facility] Shingrix Shingrix 2021-01-26 Completed [facility] - 09:39:00 [facility] Shingrix Shingrix 2021-01-26 Completed [facility] - 09[facility]39:00 [facility] Shingrix Shingrix 2021-01-26 Completed [facility] - 09:39:00 [facility] Shingrix Shingrix 2021-01-26 Completed [facility] 09[facility]39:00 [facility] Shingrix Shingrix 2021-01-26 Completed [facility] - 09[facility]39:00 [facility] Shingrix Shingrix 2021-01-26 Completed [facility] - 09:39:00 [facility] Shingrix Shingrix 2021-01-26 Completed [facility] 09[facility]39:00 [facility] Shingrix Shingrix 2021-01-26 Completed [facility] - 09:39:00 [facility] Shingrix Shingrix 2021-01-26 Completed [facility] - 09[facility]39:00 [facility] Shingrix Shingrix 2021-01-26 Completed [facility] - 09:39:00 [facility] Fluzone Fluzone 2020-12-26 Completed [facility] - 09:38:00 [facility] Fluzone Fluzone 2020-12-26 Completed [facility] - 09:38:00 [facility] Fluzone Fluzone 2020-12-26 Completed [facility] - 09:38:00 [facility] Fluzone Fluzone 2020-12-26 Completed [facility] - 09:38:00 [facility] Fluzone Fluzone 2020-12-26 Completed [facility] - 09:38:00 [facility] Fluzone Fluzone 2020-12-26 Completed [facility] - 09:38:00 [facility] Fluzone Fluzone 2020-12-26 Completed [facility] 09:38:00 [facility] Fluzone Fluzone 2020-12-26 Completed [facility] 09:38:00 [facility] Fluzone Fluzone 2020-12-26 Completed [facility] 09:38:00 [facility] Fluzone Fluzone 2020-12-26 Completed [facility] 09:38:00 [facility] Fluzone Fluzone 2020-12-26 Completed [facility] 09:38:00 [facility] Fluzone Fluzone 2020-12-26 Completed [facility] - 09:38:00 [facility] Fluzone Fluzone 2020-12-26 Completed [facility] 09:38:00 [facility] Fluzone Fluzone 2020-12-26 Completed [facility] 09:38:00 [facility] Fluzone Fluzone 2020-12-26 Completed [facility] 09:38:00 [facility] Fluzone Fluzone 2020-12-26 Completed [facility] 09:38:00 [facility] Fluzone Fluzone 2020-12-26 Completed [facility] 09:38:00 [facility] Fluzone Fluzone 2020-12-26 Completed [facility] 09:38:00 [facility] Fluzone Fluzone 2020-12-26 Completed [facility] 09:38:00 [facility] Fluzone Fluzone 2020-12-26 Completed [facility] 09:38:00 [facility] Fluzone Fluzone 2020-12-26 Completed [facility] - 09:38:00 [facility] Fluzone Fluzone 2020-12-26 Completed [facility] - 09:38:00 [facility] Fluzone Fluzone 2020-12-26 Completed [facility] - 09:38:00 [facility] Fluzone Fluzone 2020-12-26 Completed [facility] - 09:38:00 [facility] Fluzone Fluzone 2020-12-26 Completed [facility] - 09:38:00 [facility] Fluzone Fluzone 2020-12-26 Completed [facility] - 09:38:00 [facility] Fluzone Fluzone 2020-12-26 Completed [facility] - 09:38:00 [facility] Fluzone Fluzone 2020-12-26 Completed [facility] - 09:38:00 [facility] Fluzone Fluzone 2020-12-26 Completed [facility] - 09:38:00 [facility] Fluzone Fluzone 2020-12-26 Completed [facility] - 09:38:00 [facility] Fluzone Fluzone 2020-12-26 Completed [facility] - 09:38:00 [facility] Fluzone Fluzone 2020-12-26 Completed [facility] - 09:38:00 [facility] Fluzone Fluzone 2020-12-26 Completed [facility] - 09:38:00 [facility] Fluzone Fluzone 2020-12-26 Completed [facility] - 09:38:00 [facility] Fluzone Fluzone 2020-12-26 Completed [facility] - 09:38:00 [facility] Fluzone Fluzone 2020-12-26 Completed [facility] - 09:38:00 [facility] Fluzone Fluzone 2020-12-26 Completed [facility] - 09:38:00 [facility] Fluzone Fluzone 2020-12-26 Completed [facility] - 09:38:00 [facility] Fluzone Fluzone 2020-12-26 Completed [facility] - 09:38:00 [facility] Fluzone Fluzone 2020-12-26 Completed [facility] - 09:38:00 [facility] Fluzone Fluzone 2020-12-26 Completed [facility] - 09:38:00 [facility] Fluzone Fluzone 2020-12-26 Completed [facility] - 09:38:00 [facility] Fluzone Fluzone 2020-12-26 Completed [facility] - 09:38:00 [facility] Fluzone Fluzone 2020-12-26 Completed [facility] - 09:38:00 [facility] Fluzone Fluzone 2020-12-26 Completed [facility] - 09:38:00 [facility] Fluzone Fluzone 2020-12-26 Completed [facility] - 09:38:00 [facility] Fluzone Fluzone 2020-12-26 Completed [facility] - 09:38:00 [facility] Fluzone Fluzone 2020-12-26 Completed [facility] - 09:38:00 [facility] Fluzone Fluzone 2020-12-26 Completed [facility] - 09:38:00 [facility] Fluzone Fluzone 2020-12-26 Completed [facility] - 09:38:00 [facility] Fluzone Fluzone 2020-12-26 Completed [facility] - 09:38:00 [facility] Fluzone Fluzone 2020-12-26 Completed [facility] - 09:38:00 [facility] Fluzone Fluzone 2020-12-26 Completed [facility] - 09:38:00 [facility] Fluzone Fluzone 2020-12-26 Completed [facility] - 09:38:00 [facility] Fluzone Fluzone 2020-12-26 Completed [facility] - 09:38:00 [facility] Fluzone Fluzone 2020-12-26 Completed [facility] - 09:38:00 [facility] Fluzone Fluzone 2020-12-26 Completed [facility] - 09:38:00 [facility] Fluzone Fluzone 2020-12-26 Completed [facility] - 09:38:00 [facility] Fluzone Fluzone 2020-12-26 Completed [facility] - 09:38:00 [facility] Fluzone Fluzone 2020-12-26 Completed [facility] - 09:38:00 [facility] Fluzone Fluzone 2020-12-26 Completed [facility] - 09:38:00 [facility] Fluzone Fluzone 2020-12-26 Completed [facility] - 09:38:00 [facility] Fluzone Fluzone 2020-12-26 Completed [facility] - 09:38:00 [facility] Fluzone Fluzone 2020-12-26 Completed [facility] - 09:38:00 [facility] Fluzone Fluzone 2020-12-26 Completed [facility] - 09:38:00 [facility] Fluzone Fluzone 2020-12-26 Completed [facility] - 09:38:00 [facility] SARS-COV-2 COVID-19 2020-11-15 Completed Unive rsity of MODERNA VACCINE 00:00:00 [facility] SARS-COV-2 COVID-19 2020-11-15 Completed Unive rsity of MODERNA VACCINE 00:00:00 [facility] SARS-COV-2 COVID-19 2020-11-15 Completed Unive rsity of MODERNA 12+ YRS 00:00:00 [facility] VACCINE Branch SARS-COV-2 COVID-19 2020-11-15 Completed Unive rsity of MODERNA 12+ YRS 00:00:00 [facility] VACCINE Branch SARS-COV-2 COVID-19 2020-11-15 Completed Unive rsity of MODERNA 12+ YRS 00:00:00 [facility] VACCINE Branch SARS-COV-2 COVID-19 2020-11-15 Completed Unive rsity of MODERNA 12+ YRS 00:00:00 [facility] VACCINE Branch SARS-COV-2 COVID-19 2020-11-15 Completed Unive [...] rsity of MODERNA 12+ YRS 00:00:00 [facility] VACCINE Branch Prevnar 13 (PCV13) Prevnar 13 (PCV13) 2020-03-28 Completed [facility] - 15:01:00 [facility] Prevnar 13 (PCV13) Prevnar 13 (PCV13) 2020-03-28 Completed [facility] - 15:01:00 [facility] Prevnar 13 (PCV13) Prevnar 13 (PCV13) 2020-03-28 Completed [facility] - 15:01:00 [facility] Prevnar 13 (PCV13) Prevnar 13 (PCV13) 2020-03-28 Completed [facility] - 15:01:00 [facility] Prevnar 13 (PCV13) Prevnar 13 (PCV13) 2020-03-28 Completed [facility] - 15:01:00 [facility] Prevnar 13 (PCV13) Prevnar 13 (PCV13) 2020-03-28 Completed [facility] - 15:01:00 [facility] Prevnar 13 (PCV13) Prevnar 13 (PCV13) 2020-03-28 Completed [facility] - 15:01:00 [facility] Prevnar 13 (PCV13) Prevnar 13 (PCV13) 2020-03-28 Completed [facility] - 15:01:00 [facility] Prevnar 13 (PCV13) Prevnar 13 (PCV13) 2020-03-28 Completed [facility] - 15:01:00 [facility] Prevnar 13 (PCV13) Prevnar 13 (PCV13) 2020-03-28 Completed [facility] - 15:01:00 [facility] Prevnar 13 (PCV13) Prevnar 13 (PCV13) 2020-03-28 Completed [facility] - 15:01:00 [facility] Prevnar 13 (PCV13) Prevnar 13 (PCV13) 2020-03-28 Completed [facility] - 15:01:00 [facility] Prevnar 13 (PCV13) Prevnar 13 (PCV13) 2020-03-28 Completed [facility] - 15:01:00 [facility] Prevnar 13 (PCV13) Prevnar 13 (PCV13) 2020-03-28 Completed [facility] - 15:01:00 [facility] Prevnar 13 (PCV13) Prevnar 13 (PCV13) 2020-03-28 Completed [facility] - 15:01:00 [facility] Prevnar 13 (PCV13) Prevnar 13 (PCV13) 2020-03-28 Completed [facility] - 15:01:00 [facility] Prevnar 13 (PCV13) Prevnar 13 (PCV13) 2020-03-28 Completed [facility] - 15:01:00 [facility] Prevnar 13 (PCV13) Prevnar 13 (PCV13) 2020-03-28 Completed [facility] - 15:01:00 [facility] Prevnar 13 (PCV13) Prevnar 13 (PCV13) 2020-03-28 Completed [facility] - 15:01:00 [facility] Prevnar 13 (PCV13) Prevnar 13 (PCV13) 2020-03-28 Completed [facility] - 15:01:00 [facility] Prevnar 13 (PCV13) Prevnar 13 (PCV13) 2020-03-28 Completed [facility] - 15:01:00 [facility] Prevnar 13 (PCV13) Prevnar 13 (PCV13) 2020-03-28 Completed [facility] - 15:01:00 [facility] Prevnar 13 (PCV13) Prevnar 13 (PCV13) 2020-03-28 Completed [facility] - 15:01:00 [facility] Prevnar 13 (PCV13) Prevnar 13 (PCV13) 2020-03-28 Completed [facility] - 15:01:00 [facility] Prevnar 13 (PCV13) Prevnar 13 (PCV13) 2020-03-28 Completed [facility] - 15:01:00 [facility] Prevnar 13 (PCV13) Prevnar 13 (PCV13) 2020-03-28 Completed [facility] - 15:01:00 [facility] Prevnar 13 (PCV13) Prevnar 13 (PCV13) 2020-03-28 Completed [facility] - 15:01:00 [facility] Prevnar 13 (PCV13) Prevnar 13 (PCV13) 2020-03-28 Completed [facility] - 15:01:00 [facility] Prevnar 13 (PCV13) Prevnar 13 (PCV13) 2020-03-28 Completed [facility] - 15:01:00 [facility] Prevnar 13 (PCV13) Prevnar 13 (PCV13) 2020-03-28 Completed [facility] - 15:01:00 [facility] Prevnar 13 (PCV13) Prevnar 13 (PCV13) 2020-03-28 Completed [facility] - 15:01:00 [facility] Prevnar 13 (PCV13) Prevnar 13 (PCV13) 2020-03-28 Completed [facility] - 15:01:00 [facility] Prevnar 13 (PCV13) Prevnar 13 (PCV13) 2020-03-28 Completed [facility] - 15:01:00 [facility] Prevnar 13 (PCV13) Prevnar 13 (PCV13) 2020-03-28 Completed [facility] - 15:01:00 [facility] Prevnar 13 (PCV13) Prevnar 13 (PCV13) 2020-03-28 Completed [facility] - 15:01:00 [facility] Prevnar 13 (PCV13) Prevnar 13 (PCV13) 2020-03-28 Completed [facility] - 15:01:00 [facility] Prevnar 13 (PCV13) Prevnar 13 (PCV13) 2020-03-28 Completed [facility] - 15:01:00 [facility] Prevnar 13 (PCV13) Prevnar 13 (PCV13) 2020-03-28 Completed [facility] 15:01:00 [facility] Prevnar 13 (PCV13) Prevnar 13 (PCV13) 2020-03-28 Completed [facility] - 15:01:00 [facility] Prevnar 13 (PCV13) Prevnar 13 (PCV13) 2020-03-28 Completed [facility] 15:01:00 [facility] Prevnar 13 (PCV13) Prevnar 13 (PCV13) 2020-03-28 Completed [facility] 15:01:00 [facility] Prevnar 13 (PCV13) Prevnar 13 (PCV13) 2020-03-28 Completed [facility] - 15:01:00 [facility] Prevnar 13 (PCV13) Prevnar 13 (PCV13) 2020-03-28 Completed [facility] - 15:01:00 [facility] Prevnar 13 (PCV13) Prevnar 13 (PCV13) 2020-03-28 Completed [facility] - 15:01:00 [facility] Prevnar 13 (PCV13) Prevnar 13 (PCV13) 2020-03-28 Completed [facility] 15:01:00 [facility] Prevnar 13 (PCV13) Prevnar 13 (PCV13) 2020-03-28 Completed [facility] - 15:01:00 [facility] Prevnar 13 (PCV13) Prevnar 13 (PCV13) 2020-03-28 Completed [facility] 15:01:00 [facility] Prevnar 13 (PCV13) Prevnar 13 (PCV13) 2020-03-28 Completed [facility] - 15:01:00 [facility] Prevnar 13 (PCV13) Prevnar 13 (PCV13) 2020-03-28 Completed [facility] - 15:01:00 [facility] Prevnar 13 (PCV13) Prevnar 13 (PCV13) 2020-03-28 Completed [facility] - 15:01:00 [facility] Prevnar 13 (PCV13) Prevnar 13 (PCV13) 2020-03-28 Completed [facility] - 15:01:00 [facility] Prevnar 13 (PCV13) Prevnar 13 (PCV13) 2020-03-28 Completed [facility] - 15:01:00 [facility] Prevnar 13 (PCV13) Prevnar 13 (PCV13) 2020-03-28 Completed [facility] - 15:01:00 [facility] Prevnar 13 (PCV13) Prevnar 13 (PCV13) 2020-03-28 Completed [facility] - 15:01:00 [facility] Prevnar 13 (PCV13) Prevnar 13 (PCV13) 2020-03-28 Completed [facility] - 15:01:00 [facility] Prevnar 13 (PCV13) Prevnar 13 (PCV13) 2020-03-28 Completed [facility] - 15:01:00 [facility] Prevnar 13 (PCV13) Prevnar 13 (PCV13) 2020-03-28 Completed [facility] - 15:01:00 [facility] Prevnar 13 (PCV13) Prevnar 13 (PCV13) 2020-03-28 Completed [facility] - 15:01:00 [facility] Prevnar 13 (PCV13) Prevnar 13 (PCV13) 2020-03-28 Completed [facility] - 15:01:00 [facility] Prevnar 13 (PCV13) Prevnar 13 (PCV13) 2020-03-28 Completed [facility] - 15:01:00 [facility] Prevnar 13 (PCV13) Prevnar 13 (PCV13) 2020-03-28 Completed [facility] - 15:01:00 [facility] Prevnar 13 (PCV13) Prevnar 13 (PCV13) 2020-03-28 Completed [facility] - 15:01:00 [facility] Prevnar 13 (PCV13) Prevnar 13 (PCV13) 2020-03-28 Completed [facility] - 15:01:00 [facility] Prevnar 13 (PCV13) Prevnar 13 (PCV13) 2020-03-28 Completed [facility] - 15:01:00 [facility] Prevnar 13 (PCV13) Prevnar 13 (PCV13) 2020-03-28 Completed [facility] - 15:01:00 [facility] Prevnar 13 (PCV13) Prevnar 13 (PCV13) 2020-03-28 Completed [facility] - 15:01:00 [facility] Prevnar 13 (PCV13) Prevnar 13 (PCV13) 2020-03-28 Completed [facility] 15:01:00 [facility] Influenza High Dose 2020-01-11 Completed Unive rsity of Quad 00:00:00 [facility] Influenza High Dose 2020-01-11 Completed Unive [facility]ity of Quad 00:00:00 [facility] Influenza High Dose 2020-01-11 Completed [facility]ive [facility] of [facility] 00:00:00 [facility] Influenza High Dose 2020-01-11 Completed [facility]ive [facility] of [facility] 00:00:00 [facility] Influenza High Dose 2020-01-11 Completed Unive [facility] of Quad 00:00:00 [facility] Influenza High Dose 2020-01-11 Completed [facility]ive [facility] of Quad 00:00:00 [facility] Influenza High Dose 2020-01-11 Completed Unive [facility] of Quad 00:00:00 [facility] Influenza High Dose 2019-01-20 Completed Unive rsity of 00:00:00 [facility] Pneumococcal 2019-01-20 Completed University o f Polysaccharide, 00:00:00 [place] [facility] PPSV23 (PNEUMOVAX) [facility] Influenza High Dose 2019-01-20 Completed Unive rsity of 00:00:00 [facility] Pneumococcal 2019-01-20 Completed University o f Polysaccharide, 00:00:00 [place] [facility] PPSV23 (PNEUMOVAX) [facility] Influenza High Dose 2019-01-20 Completed Unive rsity of 00:00:00 [facility] Pneumococcal 2019-01-20 Completed University o f Polysaccharide, 00:00:00 [facility] PPSV23 (PNEUMOVAX) [facility] Influenza High Dose 2019-01-20 Completed Unive rsity of 00:00:00 [facility] Pneumococcal 2019-01-20 Completed University o f Polysaccharide, 00:00:00 [place] [facility] PPSV23 (PNEUMOVAX) [facility] Influenza High Dose 2019-01-20 Completed Unive rsity of 00:00:00 [facility] Pneumococcal 2019-01-20 Completed University o f Polysaccharide, 00:00:00 [place] [facility] PPSV23 (PNEUMOVAX) [facility] Influenza High Dose 2019-01-20 Completed Unive rsity of 00:00:00 [facility] Pneumococcal 2019-01-20 Completed University o f Polysaccharide, 00:00:00 [place] [facility] PPSV23 (PNEUMOVAX) [facility] Influenza High Dose 2019-01-20 Completed Unive rsity of 00:00:00 [facility] Pneumococcal 2019-01-20 Completed University o f Polysaccharide, [...] 2016-12-11 Completed University o f Polysaccharide, 00:00:00 [facility] ical PPSV23 (PNEUMOVAX) Branch Pneumococcal 2016-12-11 Completed [...] 01:00:00 141 mm[Hg] Univer sity of pressure [facility] Diastolic blood 2022-10-04 01:00:00 60 mm[Hg] Unive rsity of [facility] Heart rate 2022-10-04 01:00:00 88 /min [facility] Respiratory rate 2022-10-04 01:00:00 17 /min [facility] Oxygen saturation in 2022-10-04 01:00:00 92 /min [facility] Arterial blood by [facility] Pulse oximetry Branch Body temperature 2022-10-03 22:46:00 37.28 Tamara [facility] Body height 2022-10-03 22:46:00 157.5 cm [facility] Body weight 2022-10-03 22:46:00 63.504 kg [facility] BMI 2022-10-03 22:46:00 25.61 kg/m2 Universi ty [facility] Systolic blood 2022-07-31 03:01:00 122 mm[Hg] Univer sity of pressure [facility] Diastolic blood 2022-07-31 03:01:00 44 mm[Hg] Unive rsity of [facility] Heart rate 2022-07-31 03:01:00 73 /min Universi ty [facility] Respiratory rate 2022-07-31 03:01:00 17 /min [facility] Oxygen saturation in 2022-07-31 03:01:00 92 /min [facility] Arterial blood by [facility] Pulse oximetry Branch Body temperature 2022-07-30 23:34:00 37.44 Tamara [facility] Body height 2022-07-30 23:34:00 152.4 cm [facility] Body weight 2022-07-30 23:34:00 64.411 kg [facility] BMI 2022-07-30 23:34:00 27.73 kg/m2 [facility] height 2022-04-30 14:00:00 63.00 [in_i] [facility] weight 2022-04-30 14:00:00 139 [lb_av] [facility] temperature 2022-04-30 14:00:00 97.3 [degF] [facility] bmi 2022-04-30 14:00:00 24.62 kg/m2 [facility] oximetry 2022-04-30 14:00:00 95 % [facility] respiratory rate 2022-04-30 14:00:00 16 /min [facility] blood pressure 2022-04-30 14:00:00 132 mm[Hg] [facility] - systolic [facility] blood pressure 2022-04-30 14:00:00 76 mm[Hg] Common [facility] - diastolic [facility] height 2022-01-16 11:30:00 63.00 [in_i] [facility] weight 2022-01-16 11:30:00 134 [lb_av] [facility] bmi 2022-01-16 11:30:00 23.73 kg/m2 [facility] blood pressure 2022-01-16 11:30:00 115 mm[Hg] [facility] - systolic [facility] blood pressure 2022-01-16 11:30:00 65 mm[Hg] [facility] - diastolic [facility] height 2021-12-30 13:50:00 63.00 [in_i] [facility] weight 2021-12-30 13:50:00 135 [lb_av] [facility] temperature 2021-12-30 13:50:00 98.4 [degF] [facility] bmi 2021-12-30 13:50:00 23.91 [facility] oximetry 2021-12-30 13:50:00 93 % [facility] respiratory rate 2021-12-30 13:50:00 16 /min [facility] blood pressure 2021-12-30 13:50:00 136 mm[Hg] Common [facility] - systolic [facility] blood pressure 2021-12-30 13:50:00 60 mm[Hg] [facility] - diastolic [facility] height 2021-12-17 15:20:00 63.00 [in_i] [facility] weight 2021-12-17 15:20:00 137.6 [lb_av] [facility] bmi 2021-12-17 15:20:00 24.37 kg/m2 [facility] height 2021-11-10 16:20:00 63.00 [in_i] [facility] weight 2021-11-10 16:20:00 137.6 [lb_av] Common [facility] bmi 2021-11-10 16:20:00 24.37 kg/m2 Common S [facility] height 2021-10-08 09:30:00 63.00 [in_i] Common [facility] weight 2021-10-08 09:30:00 137.6 [lb_av] [facility] bmi 2021-10-08 09:30:00 24.37 kg/m2 Common [facility] height 2021-09-24 10:20:00 63.00 [in_i] [facility] weight 2021-09-24 10:20:00 137.6 [lb_av] [facility] temperature 2021-09-24 10:20:00 97.4 [degF] [facility] 2021-09-24 10:20:00 24.37 kg/m2 [facility] oximetry 2021-09-24 10:20:00 97 % [facility] respiratory rate 2021-09-24 10:20:00 17 /min Comm on [facility] blood pressure 2021-09-24 10:20:00 132 mm[Hg] [facility] systolic [facility] blood pressure 2021-09-24 10:20:00 70 mm[Hg] [facility] diastolic [facility] height 2021-08-20 13:50:00 63.00 [in_i] [facility] weight 2021-08-20 13:50:00 143.3 [lb_av] [facility] temperature 2021-08-20 13:50:00 98.1 [degF] [facility] bmi 2021-08-20 13:50:00 25.38 kg/m2 [facility] oximetry 2021-08-20 13:50:00 97 % [facility] respiratory rate 2021-08-20 13:50:00 17 /min Comm on [facility] blood pressure 2021-08-20 13:50:00 138 mm[Hg] Common [facility] - systolic [facility] blood pressure 2021-08-20 13:50:00 61 mm[Hg] Common [facility] - diastolic [facility] height 2021-08-20 14:00:00 63.00 [in_i] [facility] weight 2021-08-20 14:00:00 143.3 [lb_av] [facility] temperature 2021-08-20 14:00:00 98.1 [degF] [facility] bmi 2021-08-20 14:00:00 25.38 kg/m2 [facility] oximetry 2021-08-20 14:00:00 97 % [facility] respiratory rate 2021-08-20 14:00:00 17 /min Comm on [facility] blood pressure 2021-08-20 14:00:00 138 mm[Hg] Common [facility] - systolic [facility] blood pressure 2021-08-20 14:00:00 61 mm[Hg] Common [facility] - diastolic [facility] Systolic blood 2021-08-04 05:00:00 140 mm[Hg] [facility] Diastolic blood 2021-08-04 05:00:00 47 mm[Hg] [facility] 2021-08-04 05:00:00 72 /min [facility] Respiratory rate 2021-08-04 05:00:00 15 /min [facility] Oxygen saturation in 2021-08-04 05:00:00 97 /min [facility] Arterial blood by [facility] Pulse oximetry Branch Body temperature 2021-08-04 03:12:00 37 [facility] 2021-08-04 03:12:00 157.5 cm [facility] Body weight 2021-08-04 03:12:00 64.411 kg [facility] BMI 2021-08-04 03:12:00 25.97 kg/m2 [facility] height 2021-07-30 08:40:00 63.00 [in_i] Common [facility] weight 2021-07-30 08:40:00 145 [lb_av] [facility] temperature 2021-07-30 08:40:00 97.5 [degF] Common [facility] bmi 2021-07-30 08:40:00 25.68 kg/m2 [facility] blood pressure 2021-07-30 08:40:00 132 mm[Hg] [facility] blood pressure 2021-07-30 08:40:00 76 mm[Hg] [facility] height 2021-05-28 13:00:00 63.00 [in_i] [facility] weight 2021-05-28 13:00:00 148 [lb_av] [facility] bmi 2021-05-28 13:00:00 26.21 kg/m2 [facility] height 2021-04-11 11:00:00 63.00 [in_i] [facility] weight 2021-04-11 11:00:00 148 [lb_av] [facility] temperature 2021-04-11 11:00:00 98 [degF] [facility] bmi 2021-04-11 11:00:00 26.21 kg/m2 [facility] height 2021-03-14 10:00:00 63.00 [in_i] [facility] weight 2021-03-14 10:00:00 148.1 [lb_av] [facility] temperature 2021-03-14 10:00:00 97.3 [degF] [facility] bmi 2021-03-14 10:00:00 26.23 kg/m2 Common [facility] oximetry 2021-03-14 10:00:00 97 % Common [facility] respiratory rate 2021-03-14 10:00:00 16 /min Comm on [facility] blood pressure 2021-03-14 10:00:00 135 mm[Hg] Common [facility] - systolic [facility] blood pressure 2021-03-14 10:00:00 62 mm[Hg] Common [facility] - diastolic [facility] Systolic blood 2021-03-11 22:37:00 113 mm[Hg] [facility] Diastolic blood 2021-03-11 22:37:00 47 mm[Hg] [facility] Heart rate 2021-03-11 22:37:00 82 /min [facility] Body height 2021-03-11 22:37:00 160 cm [facility] Body weight 2021-03-11 22:37:00 65.772 kg [facility] BMI 2021-03-11 22:37:00 25.69 kg/m2 [facility] height 2020-12-11 14:40:00 63.00 [in_i] [facility] weight 2020-12-11 14:40:00 141.2 [lb_av] [facility] temperature 2020-12-11 14:40:00 97.4 [degF] Common [facility] bmi 2020-12-11 14:40:00 25.01 kg/m2 Common [facility] oximetry 2020-12-11 14:40:00 96 % Common [facility] respiratory rate 2020-12-11 14:40:00 16 /min Comm on [facility] blood pressure 2020-12-11 14:40:00 132 mm[Hg] Common [facility] - systolic [facility] blood pressure 2020-12-11 14:40:00 61 mm[Hg] Common [facility] - diastolic [facility] Systolic blood 2022-01-26 11:00:00 90 mm[Hg] [facility] Diastolic blood 2022-01-26 11:00:00 50 mm[Hg] [facility] Heart rate 2022-01-26 11:00:00 82 /min [facility] Body temperature 2022-01-26 11:00:00 36.44 Tamara [facility] Respiratory rate 2022-01-26 11:00:00 18 /min [facility] Oxygen saturation in 2022-01-26 11:00:00 94 /min [facility] Arterial blood by Medical Ce nter Pulse oximetry Weight 2016-10-01 15:38:00 [facility] BMI Calculated 2016-10-01 15:38:00 [facility] Height 2016-10-01 15:38:00 160.02 cm [facility] Respitory Rate 2016-10-01 15:38:00 [facility] [place] Heart Rate 2016-10-01 15:38:00 [facility] Systolic (mm Hg) 2016-10-01 15:38:00 Jim rial [facility] Diastolic (mm Hg) 2016-10-01 15:38:00 [facility] orial [place] Height 2016-07-02 15:24:00 160.02 cm [facility] Respitory Rate 2016-07-02 15:24:00 [facility] [place] Heart Rate 2016-07-02 15:24:00 [facility] BMI Calculated 2016-07-02 15:24:00 [facility] [place] Weight 2016-07-02 15:24:00 [facility] Systolic (mm Hg) 2016-07-02 15:24:00 Jim [facility] [place] Diastolic (mm Hg) 2016-07-02 15:24:00 [facility] orial [facility] Procedures Procedure Date / Time Performing Clinician Source Performed CREATINE KINASE 2022-10-03 23:59:00 Kirit Contreras [facility] MAGNESIUM 2022-10-03 23:59:00 Kirit Contreras [facility] COMP. METABOLIC PANEL 2022-10-03 23:59:00 Kirit Contreras [facility] ([id number]) [facility] CBC WITH DIFF 2022-10-03 23:59:00 Kirit Contreras [facility] AUTHORIZATION FOR RELEASE 2022-08-28 05:01:00 Doctor Unassigned, [facility] [place] [facility] URINALYSIS 2022-07-31 01:36:00 Chun [facility] XR CHEST 1 VW 2022-07-31 00:03:29 Chun [facility] COMP. METABOLIC PANEL 2022-07-30 23:57:00 Dawson Beckford [facility] ([id number]) Medical Branch SEDIMENTATION RATE 2022-07-30 23:57:00 Chun Dawson [facility] CBC WITH DIFF 2022-07-30 23:57:00 Chun [facility] RAPID INFLUENZA A/B 2022-07-30 23:57:00 Dawson Beckford [facility] COVID-19 (ID NOW RAPID 2022-07-30 23:57:00 [facility] TESTING) Medical Branch COLONOSCOPY 2022-02-16 09:30:00 [facility] PREPARE RBC 2022-01-26 23:54:00 [facility] ANTIBODY IDENTIFICATION 2022-01-26 16:44[facility]00 [facility] POCT-GLUCOSE METER 2022-01-26 10:35:00 Asuncion [facility] POCT-GLUCOSE METER 2022-01-26 09:28:00 Asuncion [facility] REPORT OF PROCEDURE - 2022-01-26 09:13:[facility] ENTEROSCOPY, WITH 2022-01-26 08:15[facility] CBC (HEMOGRAM ONLY) 2022-01-26 04:29:00 Ariel Roland [facility] BASIC METABOLIC PANEL 2022-01-26 04:29:00 Asuncion lita Grier [facility] MAGNESIUM 2022-01-26 04:29:00 Asuncion, [facility] POCT-GLUCOSE METER 2022-01-26 04:17:00 Asuncion, [facility] POCT-GLUCOSE METER 2022-01-25 22:12:00 Asuncion, [facility] ECG 12-LEAD 2022-01-25 21:31:02 Unknown, Hl7 Doctor [facility] ECG 12-LEAD 2022-01-25 21:30:43 Anabel Chriscristino Bailey [facility] ECG 12-LEAD 2022-01-25 21:30:43 Unknown, Hl7 [facility] ECG 12-LEAD 2022-01-25 21:30:14 Unknown, 7 [facility] XR CHEST 1 VIEW PORTABLE 2022-01-25 17:37:00 Asuncion, [facility]EDSIDE Center POCT-GLUCOSE METER 2022-01-25 16:39:00 Asuncion, [facility] SARS-COV2/RT-PCR ([facility] & 2022-01-25 12:33:00 Alfonso Rousseau [facility] REF LABS) [facility] POCT-GLUCOSE METER 2022-01-25 12:00:00 Asuncion, [facility] TRANSFUSE LEUKO-REDUCED 2022-01-25 11:00:00 Suyapa Barclay [facility] RED BLOOD CELLS Center HEMOGLOBIN A1C 2022-01-25 09:26:00 Asuncion, [facility] POCT-GLUCOSE METER 2022-01-25 05:42:00 Ayaan Christian [facility] BLOOD BANK EXTRA PINK 2022-01-25 05:41:00 Jo Romero [facility] CBC W/PLT COUNT & AUTO 2022-01-25 03:17:00 Suyapa Barclay [facility] DIFFERENTIAL Center COMPREHENSIVE METABOLIC 2022-01-25 03:17:00 Nimri, [facility] PANEL Center IRON, TIBC, % SAT. 2022-01-25 03:17:00 [facility] (WITHOUT FERRITIN) [place] FERRITIN 2022-01-25 03:17:00 [facility] PT/APTT 2022-01-25 03:17:00 [facility] TYPE AND SCREEN, 2022-01-25 03:17:00 [facility], [facility] AUTOMATED [place] CBC W/PLT COUNT & AUTO 2022-01-25 03:17:00 [facility] DIFFERENTIAL [place] EKG-SCANNED 2022-01-25 00:00:00 Provider, Default [facility] PERMANENT LAB REPORT - 2022-01-16 00:00:00 Provider, Default [facility] SCAN Scanning Center EKG-SCANNED 2022-01-16 00:00:00 Provider, Default [facility] ENTEROSCOPY 2022-01-13 11:01:00 Darling Moran [facility] POCT-GLUCOSE METER 2022-01-13 09:58:00 [facility] POCT-GLUCOSE METER 2022-01-13 06:34:00 [facility] POCT-GLUCOSE METER 2022-01-12 21:20:00 [facility] POCT-GLUCOSE METER 2022-01-12 15:24:00 [facility] ABORH, MANUAL 2022-01-12 12:05:00 Jo Romero [facility] POCT-GLUCOSE METER 2022-01-12 11:28:00 [facility] TYPE AND SCREEN, 2022-01-12 11:00:00 Maryuri Garay [facility] POCT-GLUCOSE METER 2022-01-12 06:34:00 [facility] CT ABDOMEN PELVIS WO 2021-08-04 03:59:53 Morales Fitch [facility] LIPASE 2021-08-04 03:39:00 Morales Fitch [facility] COMP. METABOLIC PANEL 2021-08-04 03:39:00 Morales Fitch [facility] ([id number]) [facility] CBC WITH DIFF 2021-08-04 03:39:00 Morales Fitch [facility] URINALYSIS 2021-08-04 03:39:00 Morales Fitch [facility] NOTICE OF PRIVACY 2021-08-04 02:24:14 Doctor Unassigned, [facility] PRACTICES [place] [facility] CONSENT/REFUSAL FOR 2021-08-04 02:22:02 Doctor Unassigned, [facility] DIAGNOSIS AND TREATMENT [place] [facility] Colonoscopy [facility] Endoscopy of GI tract [facility] Plan of Care Planned Activity Planned [...] colon Medical Ce nter (procedure) [code = 904220865] Future Scheduled 2017-12-10 Screening for malignant [facility] Test 00:00:00 neoplasm of colon Medical Ce nter (procedure) [code = 010907169] Future Scheduled 2017-12-10 Screening for malignant [facility] Test 00:00:00 neoplasm of colon Medical Ce nter (procedure) [code = 071425182] Future Scheduled 2017-12-10 Screening for malignant [facility] Test 00:00:00 neoplasm of colon Medical Ce [facility]ter (procedure) [code = 878875945] Future Scheduled 2017-12-10 Screening for malignant [facility] Test 00:00:00 neoplasm of colon Medical Ce nter (procedure) [code = 401811955] Future Scheduled 2017-12-10 Screening for malignant [facility] Test 00:00:00 neoplasm of colon Medical Ce [facility]ter (procedure) [code = 519102557] Future Scheduled 2017-12-10 Screening for malignant [facility] Test 00:00:00 neoplasm of colon Medical Ce nter (procedure) [code = 743368270] Future Scheduled 2017-12-10 Screening for malignant [facility] Test 00:00:00 neoplasm of colon Medical Ce nter (procedure) [code = 892860327] Future Scheduled 2017-12-10 Screening for malignant [facility] Test 00:00:00 neoplasm of colon Medical Ce [facility]ter (procedure) [code = 975511928] Future Scheduled 2017-12-10 Screening for malignant [facility] Test 00:00:00 neoplasm of colon Medical Ce nter (procedure) [code = 516217222] Future Scheduled 2017-12-10 Screening for malignant [facility] Test 00:00:00 neoplasm of colon Medical Ce [facility]ter (procedure) [code = 339481032] Future Scheduled 2017-12-10 Screening for malignant [facility] Test 00:00:00 neoplasm of colon Medical Ce [facility]ter (procedure) [code = 388227680] Future Scheduled 2017-12-10 Screening for malignant [facility] Test 00:00:00 neoplasm of colon Medical Ce [facility]ter (procedure) [code = 715956805] Future Scheduled 2017-12-10 Screening for malignant [facility] Test 00:00:00 neoplasm of colon Medical Ce [facility]ter (procedure) [code = 523269934] Future Scheduled 2017-06-[address] [facility]00 [facility] (procedure[facility] [code = 83947632] Future Scheduled 2017-06-[address] [facility] 00:00:00 measurement (procedure) [facility] [code = 89543542] Future Scheduled 2017-06-[address] [facility] 00:00:00 measurement (procedure) [facility] [code = 14280796] Future Scheduled 2017-06-[address] [facility] 00:00:00 measurement (procedure) [facility] [code = 63964285] Future Scheduled 2017-06-[address] [facility] 00:00:00 measurement (procedure) [facility] [code = 93129940] Future Scheduled 2017-06-[address] [facility] 00:00:00 measurement (procedure) [facility] [code = 99956977] Future Scheduled 2017-06-[address] [facility] 00:00:00 measurement (procedure) [facility] [code = 14697025] Future Scheduled 2012-10-[address] [...] 00:00:00 examination Medical Center (regime/therapy) [code = 089781112] Future Scheduled 1956 Urine screening for [facility] 00:00:00 protein (procedure) Medical Center [code = 410167169] Future Scheduled 1956 DIABETIC EYE EXAM [code [facility] 00:00:00 = DIABETIC EYE EXAM] Medical Center Future Scheduled [address] [facility] 00[facility] examination Medical Center (regime/therapy) [code = 712176170] Future Scheduled 1956 Urine screening for [facility] 00:00:00 protein (procedure) Medical Center [code = 928209253] Future Scheduled 1956 DIABETIC EYE EXAM [code [facility] 00:00:00 = DIABETIC EYE EXAM] Medical Center Future Scheduled [address] [facility] 00:00:00 examination Medical Center (regime/therapy) [code = 224632427] Future Scheduled 1956 Urine screening for [facility] 00:00:00 protein (procedure) Medical Center [code = 235760054] Future Scheduled 1956 DIABETIC EYE EXAM [code [facility] 00:00:00 = DIABETIC EYE EXAM] Medical Center Future Scheduled [address] [facility] 00:00:00 examination Medical Center (regime/therapy) [code = 137885762] Future Scheduled 1956 Urine screening for [facility] 00:00:00 protein (procedure) Medical Center [code = 346074908] Future Scheduled 1956 DIABETIC EYE EXAM [code [facility] 00:00:00 = DIABETIC EYE EXAM] Medical Center Future Scheduled [address] [facility] 00:00:00 examination Medical Center (regime/therapy) [code = 157780849] Future Scheduled 1956 Urine screening for [facility] 00:00:00 protein (procedure) Medical Center [code = 123028113] Future Scheduled 1956 DIABETIC EYE EXAM [code [facility] 00:00:00 = DIABETIC EYE EXAM] Medical Center Future Scheduled [address] [facility] 00:00:00 examination Medical Center (regime/therapy) [code = 544607068] Future Scheduled 1956 Urine screening for [facility] 00:00:00 protein (procedure) Medical Center [code = 013146409] Future Scheduled 1956 DIABETIC EYE EXAM [code [facility] 00:00:00 = DIABETIC EYE EXAM] Medical Center Future Scheduled [address] 00:00:00 examination Medical Center (regime/therapy) [code = 805811959] Future Scheduled 1956 Urine screening for [facility] 00:00:00 protein (procedure) Medical Center [code = 428831415] Future Scheduled 1946 CT Colonography (combo) [facility] 00:00:00 [code = CT Colonography [facility] (combo)] Future Scheduled 1946 Screening for malignant [facility] 00:00:00 neoplasm of colon Medical Ce nter (procedure) [code = 440097710] Future Scheduled 1946 DXA SCAN [code = DXA [facility] 00:00:00 SCAN] [facility] Future Scheduled 1946 Screening for malignant [facility] 00:00:00 neoplasm of colon Medical Ce nter (procedure) [code = 695484318] Future Scheduled 1946 Sigmoidoscopy [code = [facility] (combo[facility] 00:00:00 [code = CT Colonography [facility] (combo)] Future Scheduled 1946 Screening for malignant [facility] 00:00:00 neoplasm of colon Medical Ce nter (procedure) [code = 421512819] Future Scheduled 1946 DXA SCAN [code = DXA [facility] 00:00:00 SCAN] Medical Center Future Scheduled 1946 Screening for malignant [facility] 00:00:00 neoplasm of colon Medical Ce nter (procedure) [code = 731317646] Future Scheduled 1946 Sigmoidoscopy [code = [facility] S[facility]oscopy] [facility] Future Scheduled 1946 CT Colonography (combo) [facility] 00:00:00 [code = CT Colonography Medi [facility] (combo)] Future Scheduled 1946 Screening for malignant [facility] 00:00:00 neoplasm of colon Medical Ce nter (procedure) [code = 960376508] Future Scheduled 1946 DXA SCAN [code = DXA [facility] 00:00:00 SCAN] [facility] Future Scheduled 1946 Screening for malignant [facility] 00:00:00 neoplasm of colon Medical Ce nter (procedure) [code = 232913932] Future Scheduled 1946 Sigmoidoscopy [code = [facility] Sigmoidoscopy] [facility] Future Scheduled 1946 CT Colonography (combo) [facility] 00:00:00 [code = CT Colonography [facility] (combo)] Future Scheduled 1946 Screening for malignant [facility] 00:00:00 neoplasm of colon Medical Ce nter (procedure) [code = 134901423] Future Scheduled 1946 DXA SCAN [code = DXA [facility] 00:00:00 SCAN] [facility] Future Scheduled 1946 Screening for malignant [facility] 00:00:00 neoplasm of colon Medical Ce nter (procedure) [code = 308222090] Future Scheduled 1946 Sigmoidoscopy [code = [facility] Sigmoidoscopy] [facility] Future Scheduled 1946 CT Colonography (combo) [facility] 00:00:00 [code = CT Colonography Medi [facility] (combo)] Future Scheduled 1946 Screening for malignant [facility] 00:00:00 neoplasm of colon Medical Ce nter (procedure) [code = 255823205] Future Scheduled 1946 DXA SCAN [code = DXA [facility] 00:00:00 SCAN] [facility] Future Scheduled 1946 Screening for malignant [facility] 00:00:00 neoplasm of colon Medical Ce nter (procedure) [code = 910039753] Future Scheduled 1946 Sigmoidoscopy [code = [facility] 00:[facility]:00 Sigmoidoscopy] [facility] Future Scheduled 1946 CT Colonography (combo) [facility] 00:00:00 [code = CT Colonography [facility] (combo)] Future Scheduled 1946 Screening for malignant [facility] 00:00:00 neoplasm of colon Medical Ce nter (procedure) [code = 568459521] Future Scheduled 1946 DXA SCAN [code = DXA [facility] 00:00:00 SCAN] [facility] Future Scheduled 1946 Screening for malignant [facility] 00:00:00 neoplasm of colon Medical Ce nter (procedure) [code = 145257861] Future Scheduled 1946 Sigmoidoscopy [code = [facility] 00:[facility]:00 Sigmoidoscopy] [facility] Future Scheduled 1946 CT Colonography (combo) [facility] 00:00:00 [code = CT Colonography [facility] (combo)] Future Scheduled 1946 Screening for malignant [facility] 00:00:00 neoplasm of colon Medical Ce nter (procedure) [code = 551935434] Future Scheduled 1946 DXA SCAN [code = DXA [facility] 00:00:00 SCAN] [facility] Future Scheduled 1946 Screening for malignant [facility] 00:00:00 neoplasm of colon Medical Ce nter (procedure) [code = 476075687] Future Scheduled 1946 Sigmoidoscopy [code = [facility] Sigmoidoscopy] [facility] Encounters Start End Encounter Admission Attending Care Care Encounter Source Date/Time Date/Time Type Type Clinicians Facility Department ID 2022-08-12 Outpatient Ronodn, [facility] [id number] Common 10:03:00 [facility] [address] [facility] 2022-08-05 Outpatient Rondon, STLMLC ST[facility] [id number] Common 10:39:00 Isra [address] [facility] 2022-04-29 Outpatient Rondon, STLMLC ST[facility] [id number] Common 13:24:00 Isra [address] [facility] 2022-02-04 Outpatient Rondon, STLMLC STLMLC [id number] Common 10:17:01 Isra [address] [facility] 2022-01-22 Outpatient CHRISTOS BROOKS, [facility] [id number] 12:55:06 PEARL 2022-01-16 Outpatient Rondon, STLMLC STLMLC [id number] Common 13:25:00 Isra [facility] 2021-10-06 Outpatient Rondon, STLMLC STLMLC [id number] Common 16:18:00 Isra [facility] 2021-08-18 Outpatient Rondon, STLMLC STLMLC [id number] Common 09:23:08 Isra [facility] 2021-06-09 Outpatient Rondon, STLMLC STLMLC [id number] Common 10:56:01 Isra [facility] 2021-05-28 Outpatient Rondon, STLMLC STLMLC [id number] Common 08:20:00 Isra [facility] 2021-05-22 Outpatient Rondon, STLMLC STLMLC [id number] Common 15:37:00 Isra [facility] 2021-04-23 Outpatient Rondon, STLMLC STLMLC [id number] Common 14:32:51 Isra [facility] 2021-04-23 Outpatient Rondon, STLMLC STLMLC [id number] Common 14:27:21 Isra [facility] 2021-04-23 Outpatient Rondon, STLMLC STLMLC [id number] Common 14:26:14 Isra [facility] 2021-04-23 Outpatient Rondon, STLMLC STLMLC [id number] Common 14:26:02 Isra 13428 [facility] 2021-04-23 Outpatient Rondon, STLMLC STLMLC [id number] Common 14:25:31 Isra 57953 [facility] 2021-04-23 Outpatient Rondon, STLMLC STLMLC [id number] Common 14:24:42 Isra 45475 [facility] 2021-04-23 Outpatient Rondon, STLMLC STLMLC [id number] Common 14:24:14 Isra 53809 [facility] 2021-04-23 Outpatient Rondon, STLMLC STLMLC [id number] Common 14:22:04 Isra 89485 [facility] 2021-04-23 Outpatient STLMLC STLMLC [id number] Common 14:04:07 [id number] [facility] 2021-04-23 Outpatient STLMLC STLMLC [id number] Common 13:57:01 19856 [facility] 2021-04-23 Outpatient STLMLC STLMLC [id number] Common 13:54:56 37054 [facility] 2021-04-23 Outpatient STLMLC STLMLC [id number] Common 13:49:08 [id number] [facility] 2021-04-23 Outpatient STLMLC STLMLC [id number] Common 12:36:47 [id number] [facility] 2021-04-23 Outpatient STLMLC STLMLC [id number] Common 12:20:24 [id number] [facility] 2022-10-30 2022-11-01 Inpatient ER JOSE ANTONIO LARIOS Gastro [id number] [facility]H 01:30:00 14:40:00 TITILROSALIND 2022-10-22 2022-10-22 Outpatient Belia PEREZ [facility] [id number] Univers 10:15:00 10:15:00 ABIOLA to [facility] 2022-10-07 2022-10-07 Care Ana 2.16.840. 2.16.840.1. CLAC [id number] Devoted 13:37:00 14:07:00 Ovi Wells [id number]. [id number] CG8 Medical on Non [id number] Billable [id number] 2022-10-03 2022-10-03 Emergency X DIANE, K [facility] ERT [id number] Univers 17:48:00 20:58:00 ity of [facility] 2022-10-03 2022-10-03 Emergency Diane, [facility] 1.2.840.114 [id number] Univers 17:48:00 20:58:00 Stephany MILLER 350.1.13.10 i ty [facility] [place] [id number] [facility] [address] 2022-08-28 2022-08-28 Orders Doctor THOMAS 1.2.840.114 [id number] Univers 00:00:00 00:00:00 Only Unassigned, JULIUS 350.1.13.10 ity of [place] [facility] 4.2.7.2.686 Manuel as [id number] [facility] [address] 2022-08-04 2022-08-04 Care Andrez 2.16.840. 2.16.840.1. [facility] [id number] Devoted 11:00:00 11:30:00 OnSirisha Lam [id number]. 663740.4.6. [facility] [id number] 2022-08-04 2022-08-04 Telephone [facility] [id number] [id number] Univers 00:00:00 00:00:00 Librado MILLER 350.1.13.10 ity [facility] 4.2.7.2.[place] [id number] [place] dical [facility] [address] [facility] 2022-07-30 2022-07-30 Emergency X DAWSON BECKFORD [facility] ERT 1 [id number] Univers 18:30:00 22:29:00 DAWSON BECKFORD itlorraine [facility] 2022-07-30 2022-07-30 [facility] [id number] Univers 18:30:00 22:29:00 Dawson MILLER 350.1.13.10 i ty yousif YARELIS 4.2.7.2.686 [facility] [id number] [facility] [address] 2022-04-30 2022-04-30 OFFICE STLMLC STLMLC [id number] Co mmon 00:00:00 00:00:00 VISIT [facility] LEVEL 4 [facility] 2022-04-14 2022-04-14 (TEL) STLMLC STLMLC [id number] Co mmon 00:00:00 00:00:00 [facility] 2022-03-16 2022-03-16 (WEB) STLMLC STLMLC [id number] Co mmon 00:00:00 00:00:00 [facility] 2022-03-12 2022-03-12 (TEL) STLMLC STLMLC [id number] Co mmon 00:00:00 00:00:00 [facility] 2022-03-10 2022-03-10 Outpatient R JAN [facility] [id number] Univers 11:00:00 11:00:00 LIDIA alegria [facility] 2022-03-04 2022-03-04 (TEL) STLMLC STLMLC [id number] Co mmon 00:00:00 00:00:00 [facility] 2022-03-04 2022-03-04 (TEL) STLMLC STLMLC [id number] Co mmon 00:00:00 00:00:00 [facility] 2022-02-23 2022-02-23 (TEL) STLMLC STLMLC [id number] Co mmon 00:00:00 00:00:00 [facility] 2022-02-21 2022-02-21 [facility] [id number] 07:00:00 11:00:00 Celso Muniz [facility] 2022-02-21 2022-02-21 Inpatient DEAN, [facility] [id number] SLE 07:00:00 11:00:00 DARLING 2022-02-12 2022-02-12 (TEL) STLMLC STLMLC [id number] Co mmon 00:00:00 00:00:00 [facility] 2022-02-11 2022-02-11 (TEL) STLMLC STLMLC [id number] Co mmon 00:00:00 00:00:00 [facility] 2022-02-04 2022-02-04 (TEL) STLMLC STLMLC [id number] Co mmon 00:00:00 00:00:00 [facility] 2022-02-03 2022-02-03 (TEL) STLMLC STLMLC [id number] Co mmon 00:00:00 00:00:00 [facility] 2022-02-02 2022-02-02 (TEL) STLMLC STLMLC [id number] Co mmon 00:00:00 00:00:00 [facility] 2022-01-29 2022-01-29 (TEL) STLMLC STLMLC [id number] Co mmon 00:00:00 00:00:00 [facility] 2022-01-29 2022-01-29 (TEL) STLMLC STLMLC [id number] Co mmon 00:00:00 00:00:00 [facility] 2022-01-26 2022-01-26 Anesthesia Anabel, [facility] [id number] 08:25:00 09:27:00 [facility] 2022-01-26 2022-01-26 Surgery Suki, [facility] [id number] [facility] 07:50:00 08:50:00 [facility] 2022-01-25 2022-01-26 [facility] Carol Heredia [facility] [id number] 02:05:00 02:40:00 Encounter Ayaan Christiansif, [facility] 2022-01-25 2022-01-26 Inpatient ER ASUNCION, SLE Gastro [id number] [facility] 02:05:00 02:40:00 [facility] 2022-01-26 2022-01-26 (WEB) STLMLC STLMLC [id number] Co mmon 00:00:00 00:00:00 [facility] 2022-01-16 2022-01-[address] [facility] [id number] [facility] 13:08:00 01:30:00 5 2022-01-25 2022-01-25 Orders [facility] [id number] 00:00:00 00:00:00 [facility] 2022-01-25 2022-01-25 Travel [facility] [id number] [facility] 00:[facility]00 00:00:00 [facility] 2022-01-20 2022-01-20 (TEL) STLMLC STLMLC [id number] Co mmon 00:00:00 00:00:00 [facility] 2022-01-19 2022-01-19 (TEL) STLMLC STLMLC [id number] Co mmon 00:00:00 00:00:00 [facility] 2022-01-16 2022-01-16 (EST. STLMLC STLMLC [id number] Co mmon 00:00:00 00:00:00 VIDEO) EST Spi rit VIRTUAL - [facility] VIDEO [facility] 2022-01-14 2022-01-14 (WEB) STLMLC STLMLC [id number] Co mmon 00:00:00 00:00:00 [facility] 2022-01-11 2022-01-13 Hospital UR Rudy-Danuta, [facility] [id number] 21:56:00 15:30:00 Encounter Litzy [address] [place] [address] 2022-01-13 2022-01-13 Surgery Dean, [facility] [id number] 10:00:00 10:46:00 Darling [facility] 2022-01-11 2022-01-11 Emergency [facility] [id number] 21:50:00 21:55:00 [facility] 2022-01-11 2022-01-11 Emergency ER SLE Emergency [id number] SLE 21:50:00 21:55:00 2022-01-06 2022-01-06 (TEL) STLMLC STLMLC [id number] Co mmon 00:00:00 00:00:00 [facility] 2021-12-30 2021-12-30 OFFICE STLMLC STLMLC [id number] Co mmon 00:00:00 00:00:00 VISIT Spirit ESTAB PT - CHI LEVEL 4 [facility] 2021-12-17 2021-12-17 OFFICE STLMLC STLMLC [id number] Co mmon 00:00:00 00:00:00 VISIT EST Spir it PT LEVEL 3 - [facility] 2021-12-17 2021-12-17 (TEL) STLMLC STLMLC [id number] Co mmon 00:00:00 00:00:00 [facility] 2021-12-12 2021-12-12 (TEL) STLMLC STLMLC [id number] Co mmon 00:00:00 00:00:00 [facility] 2021 2021 [facility]patient [id number] -2022 [facility] 00:00:00 00:00:00 0506 [facility] 2021 2021 [id number]21 [facility] 00:00:00 00:00:00 0901 [facility] 2021 2021 [facility] [id number] -2021 [facility] 00:00:00 00:00:00 1223 [facility] 2021 2021 [facility] [id number] -2022 Devoted 00:00:00 00:00:00 0105 [facility] 2021 2021 (TEL) STLMLC STLMLC [id number] Co mmon 00:00:00 00:00:00 [facility] 2021-11-25 2021-11-25 (TEL) STLMLC STLMLC [id number] Co mmon 00:00:00 00:00:00 [facility] 2021-11-18 2021-11-18 (TEL) STLMLC STLMLC [id number] Co mmon 00:00:00 00:00:00 [facility] 2021-11-12 2021-11-12 (TEL) STLMLC STLMLC [id number] Co mmon 00:00:00 00:00:00 [facility] 2021-11-10 2021-11-10 OFFICE STLMLC STLMLC [id number] Co mmon 00:00:00 00:00:00 VISIT EST Spir it PT LEVEL 3 [facility] 2021-11-10 2021-11-10 (TEL) STLMLC STLMLC [id number] Co mmon 00:00:00 00:00:00 [facility] 2021-10-28 2021-10-28 (TEL) STLMLC STLMLC [id number] Co mmon 00:00:00 00:00:00 [facility] 2021-10-10 2021-10-10 Outpatient DMG DMG [id number] [facility] 03:13:00 03:13:00 0715 [facility] l [facility] 2021-10-09 2021-10-09 (WEB) STLMLC STLMLC [id number] Co mmon 00:00:00 00:00:00 [facility] 2021-10-08 2021-10-08 OL DIG E/M STLMLC STLMLC [id number] Common 00:00:00 00:00:00 SVC 11-20 Spir it MIN [facility] 2021-10-08 2021-10-08 (TEL) STLMLC STLMLC [id number] Co mmon 00:00:00 00:00:00 [facility] 2021-10-08 2021-10-08 (WEB) STLMLC STLMLC [id number] Co mmon 00:00:00 00:00:00 [facility] 2021-10-07 2021-10-07 (TEL) STLMLC STLMLC [id number] Co mmon 00:00:00 00:00:00 [facility] 2021-10-02 2021-10-02 (WEB) STLMLC STLMLC [id number] Co mmon 00:00:00 00:00:00 [facility] 2021-10-02 2021-10-02 (WEB) STLMLC STLMLC [id number] Co mmon 00:00:00 00:00:00 [facility] 2021-09-30 2021-09-30 (WEB) STLMLC STLMLC [id number] Co mmon 00:00:00 00:00:00 [facility] 2021-09-26 2021-09-26 (WEB) STLMLC STLMLC [id number] Co mmon 00:00:00 00:00:00 [facility] 2021-09-24 2021-09-24 OFFICE STLMLC STLMLC [id number] Co mmon 00:00:00 00:00:00 VISIT [facility] PT - [facility]I [address] 2021-09-17 2021-09-17 (TEL) STLMLC STLMLC [id number] Co mmon 00:00:00 00:00:00 [facility] 2021-08-27 2021-08-27 (TEL) STLMLC STLMLC [id number] Co mmon 00:00:00 00:00:00 [facility] 2021-08-21 2021-08-21 (TEL) STLMLC STLMLC [id number] Co mmon 00:00:00 00:00:00 [facility] 2021-08-20 2021-08-20 OFFICE STLMLC STLMLC [id number] Co mmon 00:00:00 00:00:00 VISIT [facility] PT - CHI LEVEL 4 [facility] 2021-08-20 2021-08-20 SUB ANNUAL STLMLC STLMLC [id number] Common 00:00:00 00:00:00 MCR [facility] WELLNESS - [facility] VISIT [facility] 2021-08-11 2021-08-11 (TEL) STLMLC STLMLC [id number] Co mmon 00:00:00 00:00:00 [facility] 2021-08-03 2021-08-04 Emergency X [facility], [facility] ERT [id number] Univers 21:58:00 01:05:00 FOLUSHO ity [facility] 2021-08-03 2021-08-04 Emergency [facility] 1.2.840.114 [id number] Univers 21:58:00 01:05:00 Morales Alegria DELPHOS 350.1.13.10 ity [facility] 4.2.7.2.686 [facility] [id number] [place] [address] [address] 2021-07-30 2021-07-30 (TEL) STLMLC STLMLC [id number] Co mmon 00:00:00 00:00:00 [facility] 2021-07-30 2021-07-30 OFFICE STLMLC STLMLC [id number] Co mmon 00:00:00 00:00:00 VISIT EST Spir it PT LEVEL 3 - [facility] 2021-07-30 2021-07-30 (TEL) STLMLC STLMLC [id number] Co mmon 00:00:00 00:00:00 [facility] 2021-05-28 2021-05-28 OL DIG E/M STLMLC STLMLC [id number] Common 00:00:00 00:00:00 SVC 11-20 Spir it MIN [facility] 2021-05-27 2021-05-27 (TEL) STLMLC STLMLC [id number] Co mmon 00:00:00 00:00:00 [facility] 2021-05-09 2021-05-09 (TEL) STLMLC STLMLC [id number] Co mmon 00:00:00 00:00:00 [facility] 2021-05-08 2021-05-08 (TEL) STLMLC STLMLC [id number] Co mmon 00:00:00 00:00:00 [facility] 2021-04-23 2021-04-23 (TEL) STLMLC STLMLC [id number] Co mmon 00:00:00 00:00:00 [facility] 2021-04-11 2021-04-11 OFFICE STLMLC STLMLC [id number] Co mmon 00:00:00 00:00:00 VISIT EST Spir it PT LEVEL 3 - [facility] 2021-04-11 2021-04-11 (TEL) STLMLC STLMLC [id number] Co mmon 00:00:00 00:00:00 [facility] 2021-04-09 2021-04-09 (TEL) STLMLC STLMLC [id number] Co mmon 00:00:00 00:00:00 [facility] 2021-04-07 2021-04-07 (TEL) STLMLC STLMLC [id number] Co mmon 00:00:00 00:00:00 [facility] 2021-03-14 2021-03-14 OFFICE STLMLC STLMLC [id number] Co mmon 00:00:00 00:00:00 VISIT Spirit ESTAB PT - CHI LEVEL 4 [facility] 2021-03-14 2021-03-14 (TEL) STLMLC STLMLC [id number] Co mmon 00:00:00 00:00:00 [facility] 2021-03-11 2021-03-11 Outpatient R JAN [facility] [id number] Univers 15:15:00 17:38:47 LIDIA alegria [facility] 2021-03-11 2021-03-11 Office GOLDIE Nazario 1.2.840.114 [id number] [facility] 15:15:00 17:38:47 Visit Lidia CHAU 350.1.13.10 ity of [facility] 4.2.7.2.686 [place] [id number] [address] 2021-03-112021-03-11 Outpatient R JAN, [facility] [id number] Univers 15:15:00 17:38:47 LIDIA chacon [facility] 2021-03-08 2021-03-08 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, [facility] 1.2.8 40.114 [id number] Univers 07:57:26 08:12:26 Visit Chance Paul 350.1.13.10 ity [facility] 4.2.7.2.[place] [facility] [id number] [place] dic[address] 2021-03-08 2021-03-08 [facility] [id number] Univers 08:00:00 08:00:00 CHANCE yousuf [facility] 2021-03-08 2021-03-08 [facility] [id number] Univers 08:00:00 08:00:00 CHANCE yousuf [facility] 2021-03-08 2021-03-08 Orders Doctor THOMAS 1.2.840.114 [id number] Univers 00:00:00 00:00:00 Only Unassigned, JULIUS 350.1.13.10 ity of [place] [facility] 4.2.7.2.686 Manuel as [id number] [facility] [address] 2021-02-28 2021-02-28 Outpatient R [facility] [id number] Univers 07:55:14 23:59:00 LIBRADO chacon [facility] 2021-02-28 2021-02-28 [facility] 1.2.840.114 [id number] Univers 07:55:14 23:59:00 Encounter Librado MILLER 350.1.13.10 ity of [place].2.[place] [id number] [facility] [address] 2021-02-28 2021-02-28 Outpatient R [facility] [id number] Univers 07:55:14 23:59:00 LIBRADO chacon [facility] 2021-02-28 2021-02-28 [facility] 1.2.840.114 [id number] Univers 07:54:41 07:54:41 Encounter Librado MILLER 350.1.13.10 [facility] 4.2.7.2.686 [facility] [id number] [address] 2021-02-28 2021-02-28 [facility] 1.2.840.114 [id number] Univers 07:54:07 07:54:07 Encounter Librado MILLER 350.1.13.10 [facility] 4.2.7.2.686 [facility] [id number] [address] 2021-02-07 2021-02-07 Outpatient R JOSE ALBERTO, [facility] [id number] Univers 09:20:00 09:31:58 LIBRADO to o [facility] 2021-02-07 2021-02-07 Outpatient R JOSE ALBERTO, [facility] [id number] Univers 09:20:00 09:31:58 LIBRADO to o [facility] 2021-02-07 2021-02-07 Outpatient R JOSE ALBERTO, [facility] [id number] Univers 09:20:00 09:31:58 LIBRADO to o [facility] 2021-02-07 2021-02-07 Outpatient R JOSE ALBERTO, [facility] [id number] Univers 09:20:00 09:31:58 LIBRADO chacon [facility] 2021-02-07 2021-02-07 Office [facility] 1.2.840.114 [id number] Univers 09:01:02 09:31:58 Visit Librado MILLER 350.1.13.10 ity [facility] 4.2.7.2.686 [facility] PROFESSIO [id number] [place] dical NAL [address] [facility] 2021-02-01 2021-02-01 Outpatient DMG BELLA [id number] Devoted 11:01:00 11:01:00 1106 [facility]ica l [facility] 2021-01-16 2021-01-16 Outpatient R [facility] [id number] Univers 14:30:00 14:30:00 ity of [facility] 2020-12-12 2020-12-12 Orders Doctor GUZMAN 1.2.840.114 [id number] Univers 00:00:00 00:00:00 Only Unassigned, JULIUS 350.1.13.10 ity of [place] [facility] 4.2.7.2.686 Manuel as [phone] [address] 2020-12-11 2020-12-11 OFFICE [facility] [id number] Co mmon 00:00:00 00:00:00 VISIT Isidoro BUSTILLOS PT - CHI LEVEL 4 [facility] 2020-12-06 2020-12-06 [facility] 1.2.840.114 [id number] Univers 00:00:00 00:00:00 Secure Msg Wondiful [facility] 350.1.13.10 ity of [place] 4.2.7.2.686 Manuel as Luis Enrique?Blea [phone] [address] Medical Office [facility] 2020-12-06 2020-12-06 Telephone Eleni [facility] 1.2.840.114 [id number] Univers 00:00:00 00:00:00 [facility] 350.1.13.10 ity of [place] 4.2.7.2.686 Manuel as Luis Enrique?Blea [phone] [address] Medical Office [facility] 2020-12-04 2020-12-04 Case [facility] 1.2.840.114 [id number] Univers 00:00:00 00:00:00 Management W[facility]iful [facility] 350.1.13.10 ity of [place] 4.2.7.2.686 Manuel as Luis Enrique?Blea [phone] [address] Medical Office [facility] 2020-11-28 2020-11-28 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 Lab, Ang - Db [facility] 1.2.840.1 14 [id number] Univers 16:02:35 16:17:35 Visit Chela Knowles [facility] 350.1.13.1 0 ity of [place] 4.2.7.2.686 Manuel as Luis Enrique?Blea [phone] [facility] [address] Medical Office [facility] 2020-11-28 2020-11-28 Outpatient R ELENI [facility] [id number] Univers 15:15:00 16:02:20 WONDIFUL ity o f [facility] 2020-11-28 2020-11-28 Outpatient Belia KNOWLES [facility] [id number] Univers 15:15:00 16:02:20 WONDIFUL ity o f [facility] 2020-11-28 2020-11-28 [facility] 1.2.840.114 [id number] Univers 14:51:53 16:02:20 [facility] 350.1.13.10 ity yousif [place] 4.2.7.2.686 Manuel as Luis Enrique?Blea [phone] [place] dicmarielena riveraey [address] [place] [address] Medical Office Building 2020-11-28 2020-11-28 Outpatient R ELENI [facility] [id number] Univers 15:15:00 15:15:00 WONDIFUL ity o [facility] 2020-11-15 2020-11-15 Outpatient Belia CHURCHILL [facility] [id number] Univers 14:00:00 14:00:00 [facility] 2020-11-15 2020-11-15 Outpatient Belia CHURCHILL [facility] [id number] Univers 14:00:00 13:37:47 [facility] 2020-11-15 2020-11-15 Outpatient Belia CHURCHILL [facility] [id number] Univers 14:00:00 13:37:47 [facility] 2020-10-14 2020-10-14 [facility] 1.2.840.114 [id number] Univers 00:00:00 00:00:00 [facility] 350.1.13.10 it y of [place] 4.2.7.2.686 Manuel as Professio [phone] [place] nat [facility] [address] [place] [address] Office Building One 2020-10-08 2020-10-08 Outpatient Belia TALBERT [facility] [id number] Univers 14:20:00 15:23:11 [facility] 2020-10-08 2020-10-08 Outpatient Belia TALBERT [facility] [id number] Univers 14:20:00 15:23:11 JEN to [facility] 2020-10-08 2020-10-08 Outpatient R KAVON [facility] [id number] Univers 14:20:00 14:20:00 JEN to [facility] 2020-10-08 2020-10-08 Urgent Provider, [facility] 1.2.840.114 [id number] Univers 13:57:06 14:17:06 Care Jen Talbert [facility] 350.1.13.10 ity of [place] 4.2.7.2.686 Manuel as Professio [phone] [address] Office [facility] 2020-09-12 2020-09-12 Orders Doctor THOMAS 1.2.840.114 [id number] Univers 00:00:00 00:00:00 Only Unassigned, JULIUS 350.1.13.10 ity of [place] [facility] 4.2.7.2.686 Manuel as [phone] [address] 2020-09-04 2020-09-04 Telephone Eleni [facility] 1.2.840.114 [id number] Univers 00:00:00 00:00:00 Wondiful [facility] 350.1.13.10 ity of [place] 4.2.7.2.686 Manuel as Professio [phone] [address] Office [facility] 2020-08-05 2020-08-05 Outpatient R JOSE ALBERTO [facility] [id number] Univers 09:40:00 09:40:00 LIBRADO revelesy o f [facility] 2020-08-05 2020-08-05 [facility] 1.2.840.114 [id number] Univers 09:15:43 09:35:40 Visit Librado [place] 350.1.13.10 ity [place]7.2.[place] Profess[place] [phone] [facility] 059 [facility] 2020-07-25 2020-07-25 Outpatient R JOSE ALBERTO [facility] [id number] Univers 08:31:20 23:59:00 LIBRADO revelesy o f [facility] 2020-07-25 2020-07-25 Outpatient R JOSE ALBERTO [facility] [id number] Univers 08:31:20 23:59:00 LIBRADO to o f [facility] 2020-07-25 2020-07-25 Outpatient R JOSE ALBERTO [facility] [id number] Univers 09:00:00 09:00:00 LIBRADO to o f [facility] 2020-07-10 2020-07-10 Telephone GOLDIE Nguyen 1.2.840.114 [id number] Univers 00:00:00 00:00:00 Y HEALTH 350.1.13.10 i ty [place] [phone] [place] [id number] [place] 2020-06-28 2020-06-28 Orders Doctor THOMAS 1.2.840.114 [id number] Univers 00:00:00 00:00:00 Only Unassigned, JULIUS [id number] ity of [place] [facility] 4.2.7.2.686 Manuel as [phone] [facility] [address] 2020-06-25 2020-06-25 Outpatient R TANA VELEZ [facility] [id number] Univers 09:45:00 09:45:00 ity [facility] 2020-06-25 2020-06-25 Outpatient R TANA VELEZ [facility] [id number] Univers 09:45:00 09:45:00 ity [facility] 2020-06-25 2020-06-25 Outpatient R TANA VELEZ [facility] [id number] Univers 09:45:00 09:45:00 [facility] [facility] [place] 2020-06-25 2020-06-25 Office Tana Velez [facility] 1.2.840.114 [id number] Univers 09:18:55 09:33:55 Visit Health 350.1.13.10 it [place] [phone] [address] Office Building 2020-06-11 2020-06-11 Outpatient R MARKUS [facility] [id number] Univers 13:30:00 14:34:44 KEISHA ity [facility] 2020-06-11 2020-06-11 Outpatient R MARKUS [facility] [id number] Univers 13:30:00 14:34:44 KEISHA to [facility] 2020-06-11 2020-06-11 Office Markus [facility] 1.2.279.862 [id number] Univers 12:55:34 14:34:44 Visit Keisha Larry 350.1.13.10 i ty [facility] 4.2.7.2.686 Zayda lopez Professio [phone] [place] [address] 2020-06-11 2020-06-11 Outpatient R MARKUS [facility] [id number] Univers 13:30:00 13:30:00 KEISHA to [facility] 2020-06-03 2020-06-03 Outpatient R JESSY [facility] [id number] Univers 08:50:00 08:50:00 INDIGO lorraine [facility] 2020-06-03 2020-06-03 Outpatient R JESSY, [facility] [id number] Univers 08:50:00 08:31:51 [facility] 2020-06-03 2020-06-03 Outpatient R JESSY, [facility] [id number] Univers 08:50:00 08:31:51 [facility] 2020-05-31 2020-05-31 [facility] [id number] Univers 09:00:00 09:00:00 LIDIA chacon [facility] 2020-05-31 2020-05-31 Outpatient R JAN [facility] [id number] Univers 09:00:00 09:00:00 LIDIAMICKEY chacon [facility] 2020-05-31 2020-05-31 Outpatient Belia NAZARIO [facility] [id number] Univers 09:00:00 09:00:00 LIDIA chacon [facility] 2020-05-30 2020-05-30 J2Ee 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 Lab, Adc Fam Pob I [facility] 1.2. 840.114 [id number] Univers 10:38:21 10:58:21 Visit Eleni, Wondiful A Health 350.1.13.1 0 ity of [place] 4.2.7.2.686 Manuel as Professio [phone] [address] One 2020-05-30 2020-05-30 Outpatient R ELENI [facility] [id number] Univers 10:00:00 10:36:57 WONDIFUL ity o f [facility] 2020-05-30 2020-05-30 Outpatient R ELENI [facility] [id number] Univers 10:00:00 10:36:57 WONDIFUL ity o f [facility] 2020-05-30 2020-05-30 [facility] 1.2.840.114 [id number] Univers 09:28:48 10:36:57 Visit Wondiful A Health 350.1.13.10 ity of [place] 4.2.7.2.686 Manuel as Professio [phone] [address] One 2020-05-30 2020-05-30 Outpatient R ELENI [facility] [id number] Univers 10:00:00 10:00:00 WONDIFUL ity o [facility] 2020-05-06 2020-05-06 Outpatient R JOSE ALBERTO [facility] [id number] Univers 09:00:00 09:00:00 QIANGJUN ity o [facility] 2020-05-01 2020-05-01 Telephone [facility] 1.2.662.215 [id number] Univers 00:00:00 00:00:00 Simi Health 350.1.13.10 it y of [place] 4.2.7.2.686 Manuel as Professio [phone] [address] One 2020-04-24 2020-04-24 J2Ee 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 [facility] 1.2.840.114 [id number] Univers 11:05:23 11:20:23 Visit Jose Nguyen HEALTH 350.1.13.10 ity of [place] [phone] [address] 2020-04-24 2020-04-24 Outpatient R WENDY [facility] [id number] Univers 09:30:00 10:57:46 JOSE to [facility] 2020-04-24 2020-04-24 Outpatient R WENDY [facility] [id number] Univers 09:30:00 10:57:46 JOSE to [facility] 2020-04-24 2020-04-24 Office HILTON Nguyen 1.2.840.114 [id number] Univers 09:17:48 10:57:46 Visit Jose Zhu [facility] 350.1.13.10 i ty of [facility] [place].2.7.2.[place] [phone] [facility] [address] 2020-04-24 2020-04-24 Outpatient Belia NGUYEN [facility] [id number] [facility] 09:30:00 09:30:00 JOSE to [facility] 2020-04-24 2020-04-24 Telephone [facility] 1.2.777.523 [id number] Univers 00:00:00 00:00:00 Simi Health 350.1.13.10 it y of [place] 4.2.7.2.686 Manuel as Professio [phone] [address] 2020-04-24 2020-04-24 Telephone [facility] 1.2.725.760 [id number] Univers 00:00:00 00:00:00 Simi Health 350.1.13.10 it y of [place] 4.2.7.2.686 Manuel as Professio [phone] [address] 2020-04-22 2020-04-22 Orders Doctor THOMAS 1.2.840.114 [id number] Univers 00:00:00 00:00:00 Only Unassigned, JULIUS 350.1.13.10 ity of [place] [facility] 4.2.7.2.686 Manuel as [phone] [facility] [address] 2020-04-18 2020-04-18 J2Ee 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 [facility] 1.2.840.114 [id number] Univers 09:49:19 09:58:35 Visit Morena Gray HEALTH 350.1.13.10 ity of [place] [phone] [facility] [address] 2020-04-18 2020-04-18 Outpatient Belia GRAY [facility] [id number] Univers 09:45:00 09:58:35 MORENA itlorraine [facility] 2020-04-18 2020-04-18 Outpatient Belia GRAY [facility] [id number] Univers 09:45:00 09:58:35 MORENA itlorraine [facility] 2020-04-18 2020-04-18 Office Isaac [facility] 1.2.503.588 [id number] Univers 08:45:47 09:38:59 Visit Morena Zhu HEALTH 350.1.13.10 i ty of [place] [phone] [facility] [address] 2020-04-18 2020-04-18 Outpatient Belia GRAY [facility] [id number] Univers 09:00:00 09:00:00 [facility] 2020-[facility]-11 2020-04-11 Outpatient Belia MON [facility] [id number] Univers 13:30:00 16:02:08 SIMI ity [facility] 2020-04-11 2020-04-11 Outpatient Belia MON [facility] [id number] Univers 13:30:00 16:02:08 SIMI ity [facility] 2020-04-11 2020-04-11 Outpatient Belia MON [facility] [id number] Univers 13:30:00 16:02:08 SIMI ity [facility] 2020-04-11 2020-04-11 Office [facility] 1.2.840.114 [id number] Univers 12:57:38 16:02:08 Visit Simi Health 350.1.13.10 it y of [place] 4.2.7.2.686 Manuel as Professio [phone] [address] Office Building One 2020-04-11 2020-04-11 Outpatient [facility] [id number] Univers 13:30:00 13:30:00 SIMI ity of [facility] 2020-04-03 2020-04-03 Telephone [facility] 1.2.675.391 [id number] Univers 00:00:00 00:00:00 Simi Health 350.1.13.10 it y of [place] 4.2.7.2.686 Manuel as Professio [phone] [address] Office Building One 2020-03-27 2020-03-27 [place] [facility] 1.2.523.289 [id number] 00:00:00 00:00:00 Simi Health 350.1.13.10 [place] 4.2.7.2.686 Professio [phone] [place] [address] Office Building One 2020-03-27 2020-03-27 [place] [facility] 1.2.885.192 [id number] Univers 00:00:00 00:00:00 Simi Health 350.1.13.10 it y of [place] 4.2.7.2.686 Manuel as Professio [phone] [address] Office Building One 2020-03-26 2020-03-26 [place] [facility] 1.2.115.653 [id number] 00:00:00 00:00:00 Simi Health 350.1.13.10 [place] 4.2.7.2.686 Professio [phone] [place] [address] Office Building One 2020-03-26 2020-03-26 [place] [facility] 1.2.791.829 [id number] Univers 00:00:00 00:00:00 Simi Health 350.1.13.10 it y of [place] 4.2.7.2.686 Manuel as Professio [phone] [address] Office Building One 2020-03-25 2020-03-25 Telephone [facility] 1.2.840.114 [id number] 00:00:00 00:00:00 Sam Health 350.1.13.10 [place] 4.2.7.2.686 Professio [phone] [place] [address] Office Building One 2020-03-25 2020-03-25 Telephone Vahid [facility] 1.2.840.114 [id number] Univers 00:00:00 00:00:00 Sam Health 350.1.13.10 it y of [place] 4.2.7.2.686 Manuel as Professio [phone] [address] Office [facility] 2020-03-01 2020-03-01 Orders Doctor THOMAS 1.2.840.114 [id number] 00:00:00 00:00:00 Only Unassigned, JULIUS 350.1.13.10 [place] [facility] 4.2.7.2.686 [phone] 009 2020-03-01 2020-03-01 Orders Doctor THOMAS 1.2.840.114 [id number] [facility] 00:00:00 00:00:00 Only Unassigned, JULIUS 350.1.13.10 ity of [place] [facility] 4.2.7.2.686 Manuel as [phone] [address] 2020-02-29 2020-02-29 Patient Doctor [facility] 1.2.840.114 [id number] 00:00:00 00:00:00 Secure Msg Unassigned, Health 350.1.13.10 [place] 4.2.7.2.686 Professio [phone] [place] [address] Office Building One 2020-02-29 2020-02-29 Patient Doctor [facility] 1.2.840.114 [id number] Univers 00:00:00 00:00:00 Secure Msg Unassigned, Health 350.1.13.10 ity of [place] 4.2.7.2.686 Manuel as Professio [phone] [address] Office [facility] One 2020-02-26 2020-02-26 Telephone Sd [facility] 1.2.677.258 [id number] 00:00:00 00:00:00 Simi Health 350.1.13.10 [place] 4.2.7.2.686 Professio [phone] [place] [address] Office Building One 2020-02-26 2020-02-26 Telephone [facility] 1.2.893.623 [id number] Univers 00:00:00 00:00:00 Simi Health 350.1.13.10 it y of [place] 4.2.7.2.686 Manuel as Professio [phone] [address] 2020-02-01 2020-02-01 Telephone [facility] 1.2.840.114 [id number] 00:00:00 00:00:00 Sam Health 350.1.13.10 [place] 4.2.7.2.686 Professio [phone] [place] [address] Office [facility] 2020-02-01 2020-02-01 Telephone [facility] 1.2.840.114 [id number] [facility] 00:00:00 00:00:00 Sam Health 350.1.13.10 it y of [place] 4.2.7.2.686 Manuel as Professio [phone] [address] 2020-01-31 2020-01-31 Orders Doctor GUZMAN 1.2.840.114 [id number] 00:00:00 00:00:00 Only Unassigned, JULIUS 350.1.13.10 [place] [facility] 4.2.7.2.686 [id number] 2020-01-31 2020-01-31 Orders Doctor THOMAS Contreras.2.840.114 [id number] Univers 00:00:00 00:00:00 Only Unassigned, JULIUS 350.1.13.10 ity of [place] [facility] 4.2.7.2.686 Manuel as [phone] [address] 2020-01-23 2020-01-23 Orders Doctor GUZMAN 1.2.840.114 [id number] 00:00:00 00:00:00 Only Unassigned, JULIUS 350.1.13.10 [place] [facility] 4.2.7.2.686 [phone] 2020-01-23 2020-01-23 Orders Doctor THOMAS Contreras.2.840.114 [id number] Univers 00:00:00 00:00:00 Only Unassigned, JULIUS 350.1.13.10 ity of [place] [facility] 4.2.7.2.686 Manuel as [phone] [address] 2020-01-09 2020-01-09 [facility] 1.2.840.114 [id number] 00:00:00 00:00:00 Sam Health 350.1.13.10 [place] 4.2.7.2.686 Professio [phone] [place] [address] Office Building [facility] 2020-01-09 2020-01-09 Telephone [facility] 1.2.840.114 [id number] [facility] 00:00:00 00:00:00 Sam Health 350.1.13.10 it y of [place] 4.2.7.2.686 Manuel as Professio [phone] [address] Office Building [facility] 2020-01-08 2020-01-08 Outpatient R [facility] [id number] Univers 16:40:00 16:40:00 ity of [facility] 2020-01-08 2020-01-08 Urgent Provider, [facility] 1.2.288.641 [id number] 16:10:58 16:30:58 Care [facility] 350.1.13.10 Care [place] 4.2.7.2.686 Professio [phone] [place] [address] Office Building [facility] 2020-01-08 2020-01-08 Urgent Provider, [facility] 1.2.840.114 [id number] [facility] 16:10:58 16:30:58 Care Anecristino, [facility] 350.1.13.10 ity of [place] 4.2.7.2.686 Manuel as Professio [phone] [address] Office Building [facility] 2019-11-29 2019-11-29 Orders Doctor THOMAS 1.2.840.114 [id number] 00:00:00 00:00:00 Only Unassigned, JULIUS 350.1.13.10 [place] [facility] 4.2.7.2.686 [phone] [facility] 2019-11-29 2019-11-29 Orders Doctor THOMAS 1.2.840.114 [id number] Univers 00:00:00 00:00:00 Only Unassigned, JULIUS 350.1.13.10 ity of [place] [facility] 4.2.7.2.686 Manuel as [phone] [address] 2019-11-17 2019-11-18 Office [facility] 1.2.840.114 [id number] 08:28:10 17:49:23 Visit Lidia Miller 350.1.13.10 [place] 4.2.7.2.686 Professio [phone] [address] 2019-11-17 2019-11-18 Office [facility] 1.2.840.114 [id number] Univers 08:28:10 17:49:23 Visit Lidia Miller 350.1.13.10 ity of [place].7.2.[place] [phone] [place] d[place] [address] 2019-11-17 2019-11-17 [facility] [id number] Univers 08:45:00 08:45:00 LIDIA to o f [facility] 2019-11-13 2019-11-13 [facility] [id number] Univers 09:00:00 09:00:00 SENDIL ity of [facility] 2019-11-13 2019-11-13 Orders Doctor THOMAS 1.2.840.114 [id number] Univers 00:00:00 00:00:00 Only Unassigned, JULIUS 350.1.13.10 ity of [place] [facility] 4.2.7.2.686 Manuel as [phone] [address] 2019-11-01 2019-11-01 Telephone [facility] 1.2.840.114 [id number] Univers 00:00:00 00:00:00 Sam Miller 350.1.13.10 i ty of [place].2.7.2.[place] Profess[place] [phone] [place] dical [facility] 044 [facility] 2019-10-27 2019-10-27 Office [facility] 1.2.840.114 [id number] Univers 09:30:53 10:29:54 Visit Lidia Miller 350.1.13.10 ity of [place].2.7.2.[place] Profess[place] [phone] [place] dical nal 205 [facility] 2019-10-27 2019-10-27 Outpatient R JAN, [facility] [id number] Univers 10:00:00 10:00:00 LIDIA alegria [facility] 2019-10-27 2019-10-27 Telephone [facility] 1.2.223.908 [id number] Univers 00:00:00 00:00:00 Librado Miller 350.1.13.10 ity of [place].2.7.2.[place] [phone] [place] [address]489 [facility] 2019-10-27 2019-10-27 [facility] 1.2.168.945 [id number] Univers 00:00:00 00:00:00 Librado Miller 350.1.13.10 ity of [place].2.7.2.[place] [phone] [facility] nal 9 [facility] 2019-10-21 2019-10-21 [facility] 1.2.840.114 [id number] Univers 00:00:00 00:00:00 Management Chela Miller 350.1.13.10 ity of [place] 4.2.7.2.[place] [phone] [address] 2019-10-20 2019-10-20 [place] [facility] 1.2.840.114 [id number] Univers 00:00:00 00:00:00 Sam Miller 350.1.13.10 i ty of [place] 4.2.7.2.[place] Profess[place] [phone] [facility] nal 044 [facility] 2019-10-17 2019-10-17 Office [facility] 1.2.840.114 [id number] Univers 11:20:37 12:12:34 Visit Librado Miller 350.1.13.10 ity of [place] 4.2.7.2.686 [place] [phone] [facility] nal 059 [facility] 2019-10-17 2019-10-17 Outpatient [facility] [id number] Univers 11:40:00 11:40:00 LIBRADO chacon f [facility] 2019-10-16 2019-10-16 Telephone [facility] 1.2.063.537 [id number] Univers 00:00:00 00:00:00 Simi Miller 350.1.13.10 i ty of [place].2.[place] Profess[place] [phone] [place] dic[address] 2019-10-10 2019-10-10 Refill [facility] 1.2.840.114 [id number] Univers 00:00:00 00:00:00 [facility] 350.1.13.10 it y of [place] 4.2.7.2.686 Manuel as Professio [phone] [address] Office [facility] 2019-09-07 2019-09-07 Telephone [facility] 1.2.264.207 [id number] Univers 00:00:00 00:00:00 Sendil [facility] 350.1.13.10 ity of [place]2.7.2.686 [place] [phone] [address] Office [facility] 2019-09-01 2019-09-01 [facility] 1.2.840.114 [id number] Univers 11:04:23 11:45:55 Visit Sendday Davison Larry 350.1.13.10 ity of [place] 4.2.7.2.686 [place] Profess[place] [phone] [address] 2019-09-01 2019-09-01 Outpatient R RACHELE [facility] [id number] Univers 11:00:00 11:00:00 SENDDAY to [facility] 2019-07-21 2019-07-21 Outpatient R VAHID [facility] [id number] Univers 10:30:00 10:30:00 SAM to [facility] 2019-07-21 2019-07-21 Outpatient R ELENI [facility] [id number] Univers 09:15:00 09:15:00 WONDIPOWER to o f [facility] 2019-07-21 2019-07-21 Telemedici Vahid [facility] 1.2.840.114 [id number] [facility] 07:53:52 08:08:52 id Visit Sam Miller 350.1.13.10 ity of [place].2.7.2.[place] Profess[place] [phone] [place] dicaz nal [address] [place] [address] 2019-07-10 2019-07-10 [facility] 1.2.840.114 [id number] Univers 00:00:00 00:00:00 [facility] 350.1.13.10 it y of [place] 4.2.7.2.686 Manuel as Professio [phone] [facility] nal [address] [place] [address] 2019-06-09 2019-06-09 [facility] 1.2.840.114 [id number] Univers 00:00:00 00:00:00 [facility] 350.1.13.10 it y of [place] 4.2.7.2.686 Manuel as Professio [phone] [facility] nal [address] [place] [address] 2019-05-12 2019-05-12 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, [facility] Vascular Room 1 - [facility] 1.2.840.114 [id number] [facility] 08:03:52 12:08:17 Visit Oli Jeffrey 350.1.13. 10 ity of [place].2.[place] [phone] [address] 2019-05-12 2019-05-12 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, [facility] Room 1 - [facility] 1.2.840.114 [id number] [facility] 08:03:22 12:07:58 Visit Oli Jeffrey 350.1.13. 10 ity of [place] 4.2.7.2.[place] [phone] [place] dicaz nal [address] [place] [address] 2019-05-01 2019-05-02 Office [facility] 1.2.840.114 [id number] Univers 16:37:44 13:25:33 Visit [facility]i [facility] 350.1.13.10 it y of [place] 4.2.7.2.686 Manuel as Professio [phone] [facility] [address] Office [facility] 2019-05-02 2019-05-02 Office [facility] 1.2.840.114 [id number] Univers 09:14:48 10:02:07 Visit Librado Larry 350.1.13.10 ity of [place] 4.2.7.2.[place] [phone] [facility] 059 [facility] 2019-05-02 2019-05-02 Telephone [facility] 1.2.082.784 [id number] Univers 00:00:00 00:00:00 [facility] 350.1.13.10 it y of [place] 4.2.7.2.686 Manuel as Professio [phone] [facility] 044 [facility] 2019-04-30 2019-05-01 Emergency X SINGER [facility] ERT [id number] Univers 23:28:52 01:43:00 JOSE abdirizaklorraine [facility] 2019-04-30 2019-05-01 [facility] 1.2.137.843 [id number] Univers 23:28:52 01:43:00 Jose Larry 350.1.13.10 i ty of [place] 4.2.7.2.686 [place] [phone] [facility] [address] [place] 2019-04-18 2019-04-18 Telephone [facility] 1.2.115.309 [id number] Univers 00:00:00 00:00:00 [facility] 350.1.13.10 it y of [place] 4.2.7.2.686 Manuel as Professio [phone] [address] Office [facility] 2019-03-09 2019-03-09 Outpatient R SD [facility] [id number] Univers 17:12:34 23:59:00 SIMIMOIZ to [facility] 2018-12-07 2018-12-07 Outpatient [facility] [id number] Common 08:19:00 08:19:00 [facility] 2018-12-06 2018-12-06 [facility] [id number] Common 10:40:00 10:40:[address] [facility] 2018-11-22 2018-11-22 Outpatient [facility] [id number] Common 09:02:00 09:02:[address] [facility] 2018-11-18 2018-11-18 Outpatient [facility] [id number] Common 09:05:00 09:05:[address] [facility] 2018-11-10 2018-11-10 Outpatient [facility] [id number] Common 16:00:00 16:00:[address] [facility] 2018-10-19 2018-10-19 Outpatient [facility] [id number] Common 14:30:00 14:30:[address] [facility] 2018-06-14 2018-06-14 Outpatient [facility] [id number] Common 08:32:00 08:32:[address] [facility] 2018-06-07 2018-06-07 Outpatient [facility] [id number] Common 13:45:00 13:45:[address] [facility] 2016-10-01 2016-10-02 [facility] [id number] Memoria 15:22:00 04:59:00 belia Doe 2016-10-01 2016-10-02 [facility] 4626 [id number] Memoria 15:22:00 04:59:00 belia Doe 2016-10-01 2016-10-01 Outpatient Nguyễn [facility] [id number] 10:22:00 23:59:00 Darwin Zay Ramírez varun 2016-07-02 2016-07-03 [facility] [id number] [id number] Memoria 15:08:00 04:59:00 belia Doe 2016-07-02 2016-07-03 [facility] 4626 [id number] Kimani 15:08:00 04:59:00 r Nader 00 l EDDC Nader 2016-07-02 2016-07-02 Outpatient Nguyễn [facility] [id number] 10:08:00 23:59:00 Darwin 00 Darrell varun 2010-10-24 2010-10-24 Orders Doctor THOMAS 1.2.840.114 [id number] 00:00:00 00:00:00 Only Unassigned, JULIUS [id number] [facility] [place] [facility] [id number] Manuel as [phone] Medi jorge l 009 Branch Results Test Description Test Time Test Comments Results Result Comments Source BASIC METABOLIC PANEL 2022-11-01 05:55:20 Test Item Value Reference Range Interpretation Comme nts SODIUM (BEAKER) (test 138 meq/L 136-145 code = 381) POTASSIUM (BEAKER) 4.0 meq/L 3.5-5.1 Specimen slightly hemolyzed (test code = 379) CHLORIDE (BEAKER) (test 105 meq/L 98-107 code = 382) CO2 (BEAKER) (test code 25 meq/L 22-29 = 355) BLOOD UREA NITROGEN 9 mg/dL 7-21 (BEAKER) (test code = 354) CREATININE (BEAKER) 1.01 mg/dL 0.57-1.25 Specimen slightly hemolyzed (test code = 358) GLUCOSE RANDOM (BEAKER) 177 mg/dL 70-105 H (test code = 652) CALCIUM (BEAKER) (test 9.3 mg/dL 8.4-10.2 code = 697) EGFR (BEAKER) (test 58 mL/min/1.73 sq In terpretation of eGFR values code = 1092) m Stage Descripti on Result G1 Normal or high >=90 G2 Mildly decreased 60-89 G3a Mildly to moderately 45-5 9 G3b Moderately to severely 30- 44 G4 Severly decreased 15-29 G5 Kidney failure <15Repo rted eGFR is based on the CK D-EPI 2020 equation that d oes not use a race coefficien tEstimated GFR is not as accurate as Creatinine Clearance in pr edicting glomerular filt ration rate. Estimated GFR i s not applicable for dialysis brad juares Repairer Cylinder Heads ID - ADMINCBC W/PLT COUNT & AUTO [id number] 05:35:53 Test Item Value Reference Range Interpretation Comments WHITE BLOOD CELL COUNT (BEAKER) 8.9 K/ L 3.5-10.5 (test code = 775) RED BLOOD CELL COUNT (BEAKER) 2.65 M/ L 3.93-5.22 L (test code = 761) HEMOGLOBIN (BEAKER) (test code = 8.0 GM/DL 11.2-15.7 L 410) HEMATOCRIT (BEAKER) (test code = 26.6 % 34.1-44.9 L 411) MEAN CORPUSCULAR VOLUME (BEAKER) 100 fL 79-95 H (test code = 753) MEAN CORPUSCULAR HEMOGLOBIN 30.2 pg 25.6-32.2 (BEAKER) (test code = 751) MEAN CORPUSCULAR HEMOGLOBIN CONC 30.1 GM/DL 32.2-35.5 L (BEAKER) (test code = 752) RED CELL DISTRIBUTION WIDTH 16.4 % 11.7-14.4 H (BEAKER) (test code = 412) PLATELET COUNT (BEAKER) (test 285 K/CU MM 150-450 code = 756) MEAN PLATELET VOLUME (BEAKER) 10.7 fL 9.4-12.3 (test code = 754) NUCLEATED RED BLOOD CELLS 0 /100 WBC 0-0 (BEAKER) (test code = 413) NEUTROPHILS RELATIVE PERCENT 80 % (BEAKER) (test code = 429) LYMPHOCYTES RELATIVE PERCENT 9 % (BEAKER) (test code = 430) MONOCYTES RELATIVE PERCENT 7 % (BEAKER) (test code = 431) EOSINOPHILS RELATIVE PERCENT 3 % (BEAKER) (test code = 432) BASOPHILS RELATIVE PERCENT 1 % (BEAKER) (test code = 437) NEUTROPHILS ABSOLUTE COUNT 7.12 K/ L 1.56-6.13 H (BEAKER) (test code = 670) LYMPHOCYTES ABSOLUTE COUNT 0.80 K/ L 1.18-3.74 L (BEAKER) (test code = 414) MONOCYTES ABSOLUTE COUNT (BEAKER) 0.64 K/ L 0.24-0.36 H (test code = 415) EOSINOPHILS ABSOLUTE COUNT 0.24 K/ L 0.04-0.36 (BEAKER) (test code = 416) BASOPHILS ABSOLUTE COUNT (BEAKER) 0.05 K/ L 0.01-0.08 (test code = 417) IMMATURE GRANULOCYTES-RELATIVE 0.30 % 0.00-1.00 PERCENT (BEAKER) (test code = 2801) [id number] 06:25:52 Test Item Value Reference Range Interpretation Comments HAPTOGLOBIN (BEAKER) (test code = 155 mg/dL 14-258 366) Repairer Cylinder Heads ID - [id number] 06:12:21 Test Item Value Reference Range Interpretation Comments FERRITIN (BEAKER) (test code = 313.45 ng/mL 5.00-275.00 H 361) Repairer Cylinder Heads ID - ADMINVITAMIN [id number] 06:12:20 Test Item Value Reference Range Interpretation Comments VITAMIN B12 (BEAKER) (test code = 353 pg/mL 213-816 774) Repairer Cylinder Heads ID - ADMINBASIC METABOLIC [id number] 05:54:50 Test Item Value Reference Range Interpretation Comments SODIUM (BEAKER) 135 meq/L 136-145 L (test code = 381) POTASSIUM 4.2 meq/L 3.5-5.1 (BEAKER) (test code = 379) CHLORIDE (BEAKER) 105 meq/L 98-107 (test code = 382) CO2 (BEAKER) 25 meq/L 22-29 (test code = 355) BLOOD UREA 12 mg/dL 7-21 NITROGEN (BEAKER) (test code = 354) CREATININE 1.04 mg/dL 0.57-1.25 (BEAKER) (test code = 358) GLUCOSE RANDOM 167 mg/dL 70-105 H (BEAKER) (test code = 652) CALCIUM (BEAKER) 9.0 mg/dL 8.4-10.2 (test code = 697) EGFR (BEAKER) 56 Interpretatio n of eGFR (test code = mL/min/1.73 values Stage De scription 1092) sq m Result G1 Norm al or high >=90 G2 Mildly decreased 60-89 G3a Mildl y to moderately 45-5 9 G3b Moderately to s everely 30-44 G4 Severl y decreased 15-29 G5 Kidne y failure <15Reported eGF R is based on the CKD-EPI 1 equation that d oes not use a race coefficientEsti mated GFR is not as accur ate as Creatinine Denisse aleksandar in predicting glom erular filtration rate . Estimated GFR is not appl icable for dialysis patien ts Repairer Cylinder Heads ID - ADMINIRON, TIBC, % SAT. (WITHOUT FERRITIN)2022-10-31 05:44:47 Test Item Value Reference Range Interpretation Comments IRON (BEAKER) (test code = 547) 32.0 ug/dL 40.0-160.0 L TOTAL IRON BINDING CAPACITY 203 ug/dL 250-450 L (BEAKER) (test code = 769) IRON % SATURATION (2) (BEAKER) 16 % 20-55 L (test code = 2590) Repairer Cylinder Heads ID - ADMINCBC W/PLT COUNT & AUTO [id number] 05:29:23 Test Item Value Reference Range Interpretation Comments WHITE BLOOD CELL COUNT (BEAKER) 7.6 K/ L 3.5-10.5 (test code = 775) RED BLOOD CELL COUNT (BEAKER) 2.49 M/ L 3.93-5.22 L (test code = 761) HEMOGLOBIN (BEAKER) (test code = 7.4 GM/DL 11.2-15.7 L 410) HEMATOCRIT (BEAKER) (test code = 25.4 % 34.1-44.9 L 411) MEAN CORPUSCULAR VOLUME (BEAKER) 102 fL 79-95 H (test code = 753) MEAN CORPUSCULAR HEMOGLOBIN 29.7 pg 25.6-32.2 (BEAKER) (test code = 751) MEAN CORPUSCULAR HEMOGLOBIN CONC 29.1 GM/DL 32.2-35.5 L (BEAKER) (test code = 752) RED CELL DISTRIBUTION WIDTH 16.9 % 11.7-14.4 H (BEAKER) (test code = 412) PLATELET COUNT (BEAKER) (test 269 K/CU MM 150-450 code = 756) MEAN PLATELET VOLUME (BEAKER) 10.7 fL 9.4-12.3 (test code = 754) NUCLEATED RED BLOOD CELLS 0 /100 WBC 0-0 (BEAKER) (test code = 413) NEUTROPHILS RELATIVE PERCENT 76 % (BEAKER) (test code = 429) LYMPHOCYTES RELATIVE PERCENT 11 % (BEAKER) (test code = 430) MONOCYTES RELATIVE PERCENT 9 % (BEAKER) (test code = 431) EOSINOPHILS RELATIVE PERCENT 3 % (BEAKER) (test code = 432) BASOPHILS RELATIVE PERCENT 1 % (BEAKER) (test code = 437) NEUTROPHILS ABSOLUTE COUNT 5.82 K/ L 1.56-6.13 (BEAKER) (test code = 670) LYMPHOCYTES ABSOLUTE COUNT 0.80 K/ L 1.18-3.74 L (BEAKER) (test code = 414) MONOCYTES ABSOLUTE COUNT (BEAKER) 0.66 K/ L 0.24-0.36 H (test code = 415) EOSINOPHILS ABSOLUTE COUNT 0.25 K/ L 0.04-0.36 (BEAKER) (test code = 416) BASOPHILS ABSOLUTE COUNT (BEAKER) 0.06 K/ L 0.01-0.08 (test code = 417) IMMATURE GRANULOCYTES-RELATIVE 0.50 % 0.00-1.00 PERCENT (BEAKER) (test code = 2801) RETICULOCYTE [id number] 05:29:16 Test Item Value Reference Range Interpretation Comments RETICULOCYTE COUNT PCT (BEAKER) (test 14.2 % 0.5-1.7 H code = 575) Repairer Cylinder Heads ID - [id number] AND [id number] 13:15:34 Test Item Value Reference Range Interpretation Comments HEMOGLOBIN (BEAKER) (test code = 8.5 GM/DL 11.2-15.7 L 410) HEMATOCRIT (BEAKER) (test code = 28.5 % 34.1-44.9 L 411) Repairer Cylinder Heads ID - 6000BLOOD GAS, [id number] 04:04:48 Test Item Value Reference Range Interpretation Comments PH VENOUS (BEAKER) (test code = 7.32 7.32-7.42 701) PCO2 VENOUS (BEAKER) (test code = 49 mm Hg 41-51 755) PO2 VENOUS (BEAKER) (test code = 172 mm Hg 25-40 H 702) O2 SATURATION VENOUS (BEAKER) 99.0 % 40.0-70.0 H (test code = 703) HCO3 VENOUS (BEAKER) (test code = 24 mmol/L 21-29 705) BASE EXCESS VENOUS (BEAKER) (test -1.9 mmol/L -2.0-3.0 code = 704) PATIENT TEMPERATURE (BEAKER) 36.8 (test code = 1818) FIO2 (BEAKER) (test code = 1819) 21.0 [id number] 03:07:05 Test Item Value Reference Range Interpretation Comments PHOSPHORUS (BEAKER) (test code = 3.5 mg/dL 2.3-4.7 604) Repairer Cylinder Heads ID - MARCOCOMPREHENSIVE METABOLIC [id number] 03:07:04 Test Item Value Reference Range Interpretation Comments TOTAL PROTEIN 5.2 gm/dL 6.0-8.3 L (BEAKER) (test code = 770) ALBUMIN (BEAKER) 3.2 g/dL 3.5-5.0 L (test code = 1145) ALKALINE 53 U/L 40-150 PHOSPHATASE (BEAKER) (test code = 346) BILIRUBIN TOTAL 0.3 mg/dL 0.2-1.2 (BEAKER) (test code = 377) SODIUM (BEAKER) 140 meq/L 136-145 (test code = 381) POTASSIUM (BEAKER) 4.4 meq/L 3.5-5.1 (test code = 379) CHLORIDE (BEAKER) 111 meq/L 98-107 H (test code = 382) CO2 (BEAKER) (test 20 meq/L 22-29 L code = 355) BLOOD UREA 23 mg/dL 7-21 H NITROGEN (BEAKER) (test code = 354) CREATININE 1.37 mg/dL 0.57-1.25 H (BEAKER) (test code = 358) GLUCOSE RANDOM 136 mg/dL 70-105 H (BEAKER) (test code = 652) CALCIUM (BEAKER) 8.7 mg/dL 8.4-10.2 (test code = 697) AST (SGOT) 15 U/L 5-34 (BEAKER) (test code = 353) ALT (SGPT) 9 U/L 6-55 (BEAKER) (test code = 347) EGFR (BEAKER) 40 Interpretatio n of eGFR (test code = 1092) mL/min/1.[address] age Description sq m Result G1 Valeria l or high >=90 G2 Mildly decreased 60-89 G3a Mildl y to moderately 45-5 9 G3b Moderately to s everely 30-44 G4 Sever ly decreased 15-29 G5 Kidney failure <15Repo rted eGFR is based on the CKD-EPI 2020 equation t hat does not use a race coefficientEsti mated GFR is not as accur ate as Creatinine Denisse huertas in predicting glom erular filtration rate . Estimated GFR is not appl icable for dialysis patien ts Repairer Cylinder Heads ID - [id number] 03:07:04 Test Item Value Reference Range Interpretation Comments MAGNESIUM (BEAKER) (test code = 1.8 mg/dL 1.6-2.6 627) Repairer Cylinder Heads ID - CAPOOPT/[id number] 03:01:45 Test Item Value Reference Range Interpretation Comments PROTIME (BEAKER) (test 13.4 seconds 11.9-14.2 code = 759) INR (BEAKER) (test 1.04 See_Comment [Automat ed code = 370) message] The sy stem which generated this result transmitted reference range : <=5.90. The reference range was not used to interpret this result as normal/abnormal . PARTIAL THROMBOPLASTIN 24.7 seconds 22.5-36.0 TIME (BEAKER) (test code = 760) RECOMMENDED COUMADIN/WARFARIN INR THERAPY RANGESSTANDARD DOSE: 2.0 - 3.0 Includes: PROPHYLAXIS for venous thrombosis, systemic embolization; TREATMENT for venous thrombosis and/or pulmonary embolus.HIGH RISK: Target INR is 2.5-3.5 for patients with mechanical heart valves.CBC W/PLT COUNT & AUTO [id number] 02:45:43 Test Item Value Reference Range Interpretation Comments WHITE BLOOD CELL COUNT (BEAKER) 10.5 K/ L 3.5-10.5 (test code = 775) RED BLOOD CELL COUNT (BEAKER) 2.61 M/ L 3.93-5.22 L (test code = 761) HEMOGLOBIN (BEAKER) (test code = 8.0 GM/DL 11.2-15.7 L 410) HEMATOCRIT (BEAKER) (test code = 26.7 % 34.1-44.9 L 411) MEAN CORPUSCULAR VOLUME (BEAKER) 102 fL 79-95 H (test code = 753) MEAN CORPUSCULAR HEMOGLOBIN 30.7 pg 25.6-32.2 (BEAKER) (test code = 751) MEAN CORPUSCULAR HEMOGLOBIN CONC 30.0 GM/DL 32.2-35.5 L (BEAKER) (test code = 752) RED CELL DISTRIBUTION WIDTH 17.2 % 11.7-14.4 H (BEAKER) (test code = 412) PLATELET COUNT (BEAKER) (test 294 K/CU MM 150-450 code = 756) MEAN PLATELET VOLUME (BEAKER) 10.6 fL 9.4-12.3 (test code = 754) NUCLEATED RED BLOOD CELLS 0 /100 WBC 0-0 (BEAKER) (test code = 413) NEUTROPHILS RELATIVE PERCENT 74 % (BEAKER) (test code = 429) LYMPHOCYTES RELATIVE PERCENT 14 % (BEAKER) (test code = 430) MONOCYTES RELATIVE PERCENT 7 % (BEAKER) (test code = 431) EOSINOPHILS RELATIVE PERCENT 3 % (BEAKER) (test code = 432) BASOPHILS RELATIVE PERCENT 1 % (BEAKER) (test code = 437) NEUTROPHILS ABSOLUTE COUNT 7.78 K/ L 1.56-6.13 H (BEAKER) (test code = 670) LYMPHOCYTES ABSOLUTE COUNT 1.45 K/ L 1.18-3.74 (BEAKER) (test code = 414) MONOCYTES ABSOLUTE COUNT (BEAKER) 0.71 K/ L 0.24-0.36 H (test code = 415) EOSINOPHILS ABSOLUTE COUNT 0.36 K/ L 0.04-0.36 (BEAKER) (test code = 416) BASOPHILS ABSOLUTE COUNT (BEAKER) 0.09 K/ L 0.01-0.08 H (test code = 417) IMMATURE GRANULOCYTES-RELATIVE 0.70 % 0.00-1.00 PERCENT (BEAKER) (test code = 2801) CREATINE [id number] 00:29:33 Test Item Value Reference Range Interpretation Comments CK (test code = 7007332518) 33-194 L Lab Interpretation (test code = Abnormal 95972-0) [facility] Test Item Value Reference Range Interpretation Comments MAGNESIUM (test code = 1133614075) 1.7 mg/dL 1.7-2.4 Lab Interpretation (test code = Normal 89244-4) [facility]. METABOLIC PANEL ([id number])2022-10-04 00:26:53 Test Item Value Reference Range Interpretation Comments NA (test code = 138 mmol/L 135-145 7761068256) K (test code = 4.4 mmol/L 3.5-5.0 9950380040) CL (test code = 103 mmol/L 98-108 4117522098) CO2 TOTAL (test code = 27 mmol/L 23-31 5442979569) AGAP (test code = 8 2-16 4602062155) BUN (test code = 29 mg/dL 7-23 H 0513814719) GLUCOSE (test code = 167 mg/dL 70-110 H 2971100832) CREATININE (test code = 1.23 mg/dL 0.50-1.04 H 3858487594) TOTAL BILI (test code = 0.4 mg/dL 0.1-1.1 9474015703) CALCIUM (test code = 9.9 mg/dL 8.6-10.6 7084450875) T PROTEIN (test code = 6.0 g/dL 6.3-8.2 L 2277091127) ALBUMIN (test code = 3.6 g/dL 3.5-5.0 1194851191) ALK PHOS (test code = 72 U/L 34-122 2382676085) ALTv (test code = 15 U/L 5-35 2-6) AST(SGOT) (test code = 17 U/L 13-40 2684777557) eGFR (test code = 42.6 mL/min/1.73m2 2391491451) ELLIOT (test code = ELLIOT) Association of [...] tests). Lab Interpretation Abnormal (test code = 40445-0) [facility] WITH [id number] 00:22:57 Test Item Value Reference Range Interpretation [...] (test code = 52.5 fL 39.0-49.9 H 73494-5) RDW-CV (test code = 15.4 % 12.0-15.5 788-0) PLT (test code = 317 See_Comment [Automated 777-3) message] The sy stem which generated this result transmitted reference range : 166 - 358 10*3/ ?L. The reference r manuela was not used to interpret this result as normal/abnormal . MPV (test code = 11.1 fL 9.5-12.9 26172-7) NRBC/100 WBC (test 0.0 See_Comment [Automat ed code = 0231275812) message] The system which generated this result transmitted reference range : 0.0 - 10.0 /100 WBCs. The refer ence range was not u sed to interpret th is result as normal/abnormal . NRBC x10^3 (test code See_Comment [Auto mated = 9556656001) message] The s ystem which generated this result transmitted reference range : 10*3/?L. The reference range was not used to interpret this result as normal/abnormal . GRAN MAT (NEUT) % 73.5 % (test code = 770-8) IMM GRAN % (test code 0.60 % = 0891034992) LYMPH % (test code = 12.3 % 736-9) MONO % (test code = 9.0 % 5905-5) EOS % (test code = 3.7 % 713-8) BASO % (test code = 0.9 % 706-2) GRAN MAT x10^3(ANC) 8.64 10*3/uL 1.88-7.09 H (test code = 9549644884) IMM GRAN x10^3 (test 0.07 10*3/uL 0.00-0.06 H code = 3317918631) LYMPH x10^3 (test code 1.45 10*3/uL 1.32-3.29 = 731-0) MONO x10^3 (test code 1.06 10*3/uL 0.33-0.92 H = 742-7) EOS x10^3 (test code = 0.43 10*3/uL 0.03-0.39 H 711-2) BASO x10^3 (test code 0.11 10*3/uL 0.01-0.07 H = 704-7) Lab Interpretation Abnormal (test code = 97868-0) [facility] [id number] 01:24:17 Test Item Value Reference Range Interpretation Comments ESR (test code = 83700-1) 8 See_Comment [ Automated message] The system whic h generated this result transmitted ref erence range: 0 - 20 m m/HR. The reference r manuela was not used to interpret this result as normal/abnor mal. Lab Interpretation (test Normal code = 35580-9) [facility] METABOLIC PANEL (32645)2022-07-31 00:54:01 Test Item Value Reference Range Interpretation Comments NA (test code = 138 mmol/L 135-145 9668977978) K (test code = 4.2 mmol/L 3.5-5.0 0541733101) CL (test code = 103 mmol/L 98-108 3271801834) CO2 TOTAL (test code = 26 mmol/L 23-31 1339994296) AGAP (test code = 9 2-16 9793888960) BUN (test code = 16 mg/dL 7-23 1652243826) GLUCOSE (test code = 123 mg/dL 70-110 H 0984010087) CREATININE (test code = 1.00 mg/dL 0.50-1.04 3835061714) TOTAL BILI (test code = 0.4 mg/dL 0.1-1.8 2429742708) CALCIUM (test code = 9.8 mg/dL 8.6-10.6 5790009928) T PROTEIN (test code = 6.5 g/dL 6.3-8.2 2336460698) ALBUMIN (test code = 4.0 g/dL 3.5-5.0 4673921089) ALK PHOS (test code = 80 U/L 34-122 6074527987) ALTv (test code = 16 U/L 5-35 1742-6) AST(SGOT) (test code = 22 U/L 13-40 6044283420) eGFR (test code = 54.1 mL/min/1.73m2 1707292822) ELLIOT (test code = ELLIOT) Association of [...] tests). Lab Interpretation Abnormal (test code = 62697-2) [facility] WITH [id number] 00:45:39 Test Item Value Reference Range Interpretation Comments WBC (test code = 9.55 See_Comment [Automated 2541-2) message] The sy stem which generated this result transmitted reference range : 4.30 - 11.10 10*3/?L. The reference range was not used to interpret this result as normal/abnormal . RBC (test code = 4.77 See_Comment [Automated 237-8) message] The sy stem which generated this [...] RDW-SD (test code = 42.9 fL 39.0-49.9 48371-3) RDW-CV (test code = 13.1 % 12.0-15.5 788-0) PLT (test code = 318 See_Comment [Automated 517-3) message] The sy stem which generated this result transmitted reference range : 166 - 358 10*3/ ?L. The reference r manuela was not used to interpret this result as normal/abnormal . MPV (test code = 10.7 fL 9.5-12.9 76597-0) NRBC/100 WBC (test 0.0 See_Comment [Automat ed code = 0052720531) message] The system which generated this result transmitted reference range : 0.0 - 10.0 /100 WBCs. The refer ence range was not u sed to interpret th is result as normal/abnormal . NRBC x10^3 (test code See_Comment [Auto mated = 1896612424) message] The s ystem which generated this result transmitted reference range : 10*3/?L. The reference range was not used to interpret this result as normal/abnormal . GRAN MAT (NEUT) % 71.2 % (test code = 770-8) IMM GRAN % (test code 0.40 % = 6144038528) LYMPH % (test code = 13.4 % 736-9) MONO % (test code = 9.4 % 5905-5) EOS % (test code = 4.2 % 713-8) BASO % (test code = 1.4 % 706-2) GRAN MAT x10^3(ANC) 6.80 10*3/uL 1.88-7.09 (test code = 4387327701) IMM GRAN x10^3 (test 0.04 10*3/uL 0.00-0.06 code = 6634387278) LYMPH x10^3 (test code 1.28 10*3/uL 1.32-3.29 L = 731-0) MONO x10^3 (test code 0.90 10*3/uL 0.33-0.92 = 742-7) EOS x10^3 (test code = 0.40 10*3/uL 0.03-0.39 H 711-2) BASO x10^3 (test code 0.13 10*3/uL 0.01-0.07 H = 704-7) Lab Interpretation Abnormal (test code = 12141-1) [facility] [id number] 23:54:00 Test Item Value Reference Range Interpretation Comments Unit ABO (test code = O Pos 7895128) UNIT NUMBER (test code = [id number] 934-0) Status (test code = 7782571) WORK IN PROGRESS Blood Bank Product (test RED BLOOD CELLS code = 2263) PRODUCT CODE (test code = E5086Q91 933-2) CROSSMATCH (test code = COMPATIBLE 2264) [facility] [id number] 23:54:00 Test Item Value Reference Range Interpretation Comments Unit ABO (test code = O Pos 6993935) UNIT NUMBER (test code = [id number] 934-0) Status (test code = 3041124) WORK IN PROGRESS Blood Bank Product (test RED BLOOD CELLS code = 2263) PRODUCT CODE (test code = U0346B64 933-2) CROSSMATCH (test code = COMPATIBLE 2264) [facility] [id number] 23:54:00 Test Item Value Reference Range Interpretation Comments Unit ABO (test code = O Pos 0811886) UNIT NUMBER (test code = I739201065305 934-0) Status (test code = 5134312) WORK IN PROGRESS Blood Bank Product (test RED BLOOD CELLS code = 2263) PRODUCT CODE (test code = L8781Z57 933-2) CROSSMATCH (test code = COMPATIBLE 2264) [facility] [id number] 16:44:00 Test Item Value Reference Range Interpretation Comments ANTIBODY ID Lpcr-EwOuck-CkjS anti-c, ant i-Jkb, (BEAKER) (test nti-c anti-Bg code = 2253) Antibody Consult SIGNED OUT Anti Jkb ca uses RBC (test code = 2479) injury, t ransfuse Jkb negative RBCs.Anti c cau ses RBC injury, transfuse c neg ative RBCs. Anti Bga detected - but this antibody is clinicallty insignificant.E lectr onic Signature: Giorgi Ugarte M.D. [facility] CenterAntibody qfgmiwofedtzbo9501-29-82 16:44:00 Test Item Value Reference Range Interpretation Comments ANTIBODY ID Msmi-KhNlmd-XwoT anti-c, ant i-Jkb, (BEAKER) (test nti-c anti-Bg code = 2253) Antibody Consult SIGNED OUT Anti Jkb ca uses RBC (test code = 2479) injury, t ransfuse Jkb negative RBCs.Anti c cau ses RBC injury, transfuse c neg ative RBCs. Anti Bga detected - but this antibody is clinicallty insignificant.E lectr onic Signature: Giorgi Ugarte M.D. [facility] CenterAntibody [id number] 16:44:00 Test Item Value Reference Range Interpretation Comments ANTIBODY ID Mrsv-PdQvhl-WjpF anti-c, ant i-Jkb, (BEAKER) (test nti-c anti-Bg code = 2253) Antibody Consult SIGNED OUT Anti Jkb ca uses RBC (test code = 2479) injury, t ransfuse Jkb negative RBCs.Anti c cau ses RBC injury, transfuse c neg ative RBCs. Anti Bga detected - but this antibody is clinicallty insignificant.E lectr onic Signature: Giorgi Ugarte M.D. [facility] CenterHEMOGLOBIN [id number] 12:19:10 Test Item Value Reference Range Interpretation [...] 5.7- 6.4% indicates increased risk for diabetes (prediabetes)."Repairer Cylinder Heads ID - ADMOperator ID - ADMPOC-Glucose hsoai8320-14-05 10:47:05 Test Item Value Reference Range Interpretation Comments POC-Glucose Meter (test 231 mg/dL 70-110 H : TE STED AT [facility] code = 1538) [address] [facility] [place], 770 30: Repairer Cylinder Heads/Techni lyndsay ID = [id number] for Arielle Herzog on Lab Interpretation (test Abnormal code = 72604-1) [facility] Center[facility]Glucose [id number] 10:47:05 Test Item Value Reference Range Interpretation Comments POC-Glucose Meter (test 231 mg/dL 70-110 H : TE STED AT [facility] code = 1538) [address] [facility] [place], 770 30: Repairer Cylinder Heads/Techni lyndsay ID = [id number] for Arielle Herzog on Lab Interpretation (test Abnormal code = 88934-3) [facility] Center[facility]Glucose [id number] 10:47:05 Test Item Value Reference Range Interpretation Comments POC-Glucose Meter (test 231 mg/dL 70-110 H : TE STED AT [facility] code = 1538) [address] [facility] [place], 770 30: Repairer Cylinder Heads/Techni lyndsay ID = [id number] for Arielle Herzog on Lab Interpretation (test Abnormal code = 29823-1) [facility]-GLUCOSE [id number] 10:47:05 Test Item Value Reference Range Interpretation Comments POC-GLUCOSE METER 231 mg/dL 70-110 H : TESTED A T [facility] 6720 (BEAKER) (test code = [facility], 1538) [address]: Repairer Cylinder Heads/Techni lyndsay ID = [id number] for Do clarke Yvan POCT-GLUCOSE [id number] 09:39:47 Test Item Value Reference Range Interpretation Comments POC-GLUCOSE METER 211 mg/dL 70-110 H : TESTED A T [facility] 6720 (BEAKER) (test code [facility] [place], = 1538) 36800: Repairer Cylinder Heads/Techni lyndsay ID = [id number] for Derek Soraya blakely [id number] 06:47:20 Test Item Value Reference Range Interpretation Comments MAGNESIUM (BEAKER) (test code = 1.8 mg/dL 1.6-2.6 627) Repairer Cylinder Heads ID - BARBARA [facility]ASIC METABOLIC [id number] 06:47:19 Test Item Value Reference Range Interpretation [...] not appl icable for dialysis patien ts Repairer Cylinder Heads ID - BARBARA [facility] (HEMOGRAM ONLY)2022-01-26 05:00:02 [...] 0-0 (BEAKER) (test code = 413) POCT-GLUCOSE [id number] 04:30:25 Test Item Value Reference Range Interpretation Comments POC-GLUCOSE METER 230 mg/dL 70-110 H : TESTED A T [facility] 6720 (BEAKER) (test code = [facility] [place], 1538) 31715: Repairer Cylinder Heads/Techni lyndsay ID = [id number] for MIS DONALDSON POCT-GLUCOSE [id number] 22:24:40 Test Item Value Reference Range Interpretation Comments POC-GLUCOSE METER 286 mg/dL 70-110 H : TESTED A T [facility] 6720 (BEAKER) (test code = [facility], 1538) 26129: Repairer Cylinder Heads/Techni lyndsay ID = [id number] for MIS DONALDSON RAD, CHEST, 1 VIEW, NON [id number] 18:09:00Reason for exam:->PICC PlacementShould this be performed at the bedside?->Yes [facility] 1945 Sex: FFINAL REPORT [...] of the mid thoracic spine. Signed: Bhanu Donovan Verified Date/Time: 01/25/2022 18:09:25 POCT-GLUCOSE [id number] 16:50:37 Test Item Value Reference Range Interpretation Comments POC-GLUCOSE METER 151 mg/dL 70-110 H : TESTED A T [facility] 6720 (BIN) (test code = GIRISH [place]LE [place], 1538) 35192: Repairer Cylinder Heads/Techni lyndsay ID = [id number] for RIAN LAKHANI SARS-CoV2/RT-PCR ([facility])2022-01-25 15:12:09 Test Item Value Reference Interpretation Comments Range SARS-COV2/RT-PCR Negative Negative The SARS-Co V-2 (test code = target nucleic 18368-8) acids are not detected in thi s [...] revoked sooner. Fact Sheet for Healthcare Providers: https://www.[employer]/Documents/Xp ert%20Xpress%20SAR S%20CoV-2/Fact%20S heets/302-2239%20S ARS-COV-2%20HEALTH CARE%20PROVIDERS%2 0FACT%20SHEET.pdf Fact Sheet for Healthcare Patients: https://www.[employer]/Documents/Xp ert%20Xpress%20SAR S%20CoV-2/Fact%20S heets/302-3801%20S ARS-COV-2%20PATIEN T%20FACT%20SHEET.p df Lab Interpretation Normal (test code = 22382-1) [facility])2022-01-25 15:12:09 Test Item Value Reference Interpretation Comments Range SARS-COV2/RT-PCR Negative Negative The SARS-Co V-2 (test code = target nucleic 16694-4) acids are not detected in thi s [...] revoked sooner. Fact Sheet for Healthcare Providers: https://www.ERCOM/Documents/Xp ert%20Xpress%20SAR S%20CoV-2/Fact%20S heets/302-3802%20S ARS-COV-2%20HEALTH CARE%20PROVIDERS%2 0FACT%20SHEET.pdf Fact Sheet for Healthcare Patients: https://www.ERCOM/Documents/Xp ert%20Xpress%20SAR S%20CoV-2/Fact%20S heets/302-3801%20S ARS-COV-2%20PATIEN T%20FACT%20SHEET.p df Lab Interpretation Normal (test code = 13119-6) [facility])2022-01-25 15:12:09 Test Item Value Reference Interpretation Comments Range SARS-COV2/RT-PCR Negative Negative The SARS-Co V-2 (test code = target nucleic 20155-2) acids are not detected in thi s [...] revoked sooner. Fact Sheet for Healthcare Providers: https://www.ERCOM/Documents/Xp ert%20Xpress%20SAR S%20CoV-2/Fact%20S heets/302-3802%20S ARS-COV-2%20HEALTH CARE%20PROVIDERS%2 0FACT%20SHEET.pdf Fact Sheet for Healthcare Patients: https://www.ERCOM/Documents/Xp ert%20Xpress%20SAR S%20CoV-2/Fact%20S heets/302-3801%20S ARS-COV-2%20PATIEN T%20FACT%20SHEET.p df Lab Interpretation Normal (test code = 89462-4) [facility] ([facility])2022-01-25 15:12:09 Test Item Value Reference Range Interpretation Comments SARS-COV2/RT-PCR Negative Negative The SARS-Co V-2 target (test code = nucleic acids a re not 6627042) detected in thi s specimen. Negative result [...] revoked sooner. Fact Sheet for Healthcare Providers: https://www.PressL[employer].co m/Documents/Xpert%20Xpress%20SARS%20CoV-2/Fact%20Sheets/487-3802%04GNDE-CJL-3%20 HEALTHCARE%20PROVIDERS%20FACT%20SHEET.pdf Fact Sheet for Healthcare Patients: https://www.AboutMyStar/Documents/Xpert%20Xp ress%20SARS%20CoV-2/Fact%20Sheets/3023801%17YUTE-NPU-2%20PATIENT%20FACT%20SHEET .pdfPOCT-GLUCOSE [id number] 12:11:38 Test Item Value Reference Range Interpretation Comments POC-GLUCOSE METER 270 mg/dL 70-110 H : TESTED A T [facility] 6720 (BEAKER) (test code = GIRISH Celaya [place], 1538) [address]: Repairer Cylinder Heads/Techni lyndsay ID = [id number] for RIAN LAKHANI POCT-GLUCOSE [id number] 05:54:12 Test Item Value Reference Range Interpretation Comments POC-GLUCOSE METER 73 mg/dL 70-110 : TESTED A T [facility] 6720 (BEAKER) (test code = GIRISH Cel[place], 1538) 537[address]: Repairer Cylinder Heads/Techni lyndsay ID = [id number] for Kehinde Lisa COMPREHENSIVE METABOLIC [id number] 05:29:07 Test Item Value Reference Range Interpretation [...] not appl icable for dialysis patien ts Repairer Cylinder Heads ID - TAWANNA STACY [id number] 04:42:32 Test Item Value Reference Range Interpretation Comments FERRITIN (BEAKER) (test code = 23.21 ng/mL 5.00-275.00 361) Repairer Cylinder Heads MOLINA PACE, TIBC, % SAT. (WITHOUT FERRITIN)2022-01-25 04:32:43 Test Item Value Reference Range Interpretation Comments IRON (BEAKER) (test code = 547) 19.0 ug/dL 40.0-160.0 L TOTAL IRON BINDING CAPACITY 320 ug/dL 250-450 (BEAKER) (test code = 769) IRON % SATURATION (2) (BEAKER) 6 % 20-55 L (test code = 2590) Repairer Cyl[employer] Heads MOLINA STACY LPT/[id number] 03:53:35 Test Item Value Reference Range Interpretation Comments PROTIME (BEAKER) (test 13.0 seconds 11.9-14.2 code = 759) INR (BEAKER) (test 1.00 See_Comment [Automat ed code = 370) message] The [employer] stem which generated this result transmitted reference [...] mechanical heart valves.CBC W/PLT COUNT & AUTO [id number] 03:50:34 Test Item Value Reference Range Interpretation [...] PERCENT (BEAKER) (test code = 2801) POC-Glucose [id number] 08:45:21 Test Item Value Reference Range Interpretation Comments POC-Glucose Meter (test 193 mg/dL 70-110 H : TE STED AT [facility] code = 1538) [address] [place] [address], 770 30: Repairer Cylinder Heads/Techni lyndsay ID = [id number] for DEOCOS, SONU NE SATNAM Lab Interpretation (test Abnormal code = 20105-8) [facility] [id number] 08:45:21 Test Item Value Reference Range Interpretation Comments POC-Glucose Meter (test 193 mg/dL 70-110 H : TE STED AT [facility] code = 1538) [address] [place] [address], 770 30: Repairer Cylinder Heads/Techni lyndsay ID = [id number] for DEOCOS, SONU NE SATNAM Lab Interpretation (test Abnormal code = 86456-3) [facility] [id number] 08:45:21 Test Item Value Reference Range Interpretation Comments POC-Glucose Meter (test 193 mg/dL 70-110 H : TE STED AT [facility] code = 1538) [address] [place] [address], 770 30: Repairer Cylinder Heads/Techni lyndsay ID = [id number] for DEOCOS, SONU NE SATNAM Lab Interpretation (test Abnormal code = 23642-1) [facility] [id number] 08:45:21 Test Item Value Reference Range Interpretation Comments POC-Glucose Meter (test 193 mg/dL 70-110 H : TE STED AT [facility] code = 1538) [address] [place] [address], 770 30: Repairer Cylinder Heads/Techni lyndsay ID = [id number] for DEOCOS, SONU NE SATNAM Lab Interpretation (test Abnormal code = 77574-8) [facility] [id number] 08:45:21 Test Item Value Reference Range Interpretation Comments POC-GLUCOSE METER 193 mg/dL 70-110 H : TESTED A T [facility] 6720 (BEAKER) (test code [facility], = 1538) [address]: Repairer Cylinder Heads/Techni lyndsay ID = [id number] for DEOC OS, NICOLA SATNAM POCT-GLUCOSE [id number] 08:45:15 Test Item Value Reference Range Interpretation Comments POC-GLUCOSE METER 165 mg/dL 70-110 H : TESTED A T [facility] 6720 (BEAKER) (test code = [facility]) [address]: Repairer Cylinder Heads/Techni lyndsay ID = [id number] for PE PATRICIA, WALTER POCT-GLUCOSE [id number] 08:45:15 Test Item Value Reference Range Interpretation Comments POC-GLUCOSE METER 142 mg/dL 70-110 H : TESTED A T [facility] 6720 (BEAKER) (test code = [facility], [facility]) 14880: Repairer Cylinder Heads/Techni lyndsay ID = [id number] for PE PATRICIA, WALTER POCT-GLUCOSE [id number] 08:45:15 Test Item Value Reference Range Interpretation Comments POC-GLUCOSE METER 136 mg/dL 70-110 H : TESTED A T [facility] 6720 (BEAKER) (test code = [facility], [facility]) 27106: Repairer Cylinder Heads/Techni lyndsay ID = [id number] for TH OMPSON, FLORENCE POCT-GLUCOSE [id number] 08:45:14 Test Item Value Reference Range Interpretation Comments POC-GLUCOSE METER 250 mg/dL 70-110 H : TESTED A T [facility] 6720 (BEAKER) (test code = [facility], [facility]) 31086: Repairer Cylinder Heads/Techni lyndsay ID = [id number] for TH OMPSON, FLORENCE POCT-GLUCOSE [id number] 08:45:14 Test Item Value Reference Range Interpretation Comments POC-GLUCOSE METER 139 mg/dL 70-110 H : TESTED A T [facility] 6720 (BEAKER) (test code = [facility], [facility]) 82300: Repairer Cylinder Heads/Techni lyndsay ID = [id number] for Zully Spear [id number] 00:00:00resultCOMP. METABOLIC PANEL (37098)2021-08-04 04:03:33 Test Item Value Reference Range Interpretation Comments NA (test code = 131 mmol/L 135-145 L 1446810272) K (test code = 5.3 mmol/L 3.5-5.0 H 7756110793) CL (test code = 97 mmol/L 98-108 L 3690535112) CO2 TOTAL (test code = 23 mmol/L 23-31 1299839225) AGAP (test code = 2-16 3076618687) BUN (test code = 23 mg/dL 7-23 8114261300) GLUCOSE (test code = 418 mg/dL 70-110 H 9941641380) CREATININE (test code = 1.05 mg/dL 0.50-1.04 H 6504414779) TOTAL BILI (test code = 0.4 mg/dL 0.1-1.3 5606428493) CALCIUM (test code = 9.8 mg/dL 8.6-10.6 8653900918) T PROTEIN (test code = 6.5 g/dL 6.3-8.2 7626142771) ALBUMIN (test code = 4.1 g/dL 3.5-5.0 2314933589) ALK PHOS (test code = 82 U/L 34-122 9840457677) ALTv (test code = 14 U/L 5-35 2-6) AST(SGOT) (test code = 17 U/L 13-40 7277334292) eGFR (test code = mL/min/1.73m2 7391029015) ELLIOT (test code = ELLIOT) Association of [...] tests). Lab Interpretation Abnormal (test code = 45958-0) [facility]:02[facility]53 Test Item Value Reference Range Interpretation Comments LIPASE (test code = 7063906409) 396 U/L 0-220 H Lab Interpretation (test code = Abnormal 32148-5) [facility] WITH [id number] 03:45:51 Test Item Value Reference Range Interpretation [...] (test code = 50.9 fL 39.0-49.9 H 35181-0) RDW-CV (test code = 15.7 % 12.0-15.5 H 788-0) PLT (test code = See_Comment H [Automated 777-3) message] The system which generated this result transmit bruna reference range : 166 - 358 10*3/ ?L. The reference range was not u sed to interpret th is result as normal/abnormal . MPV (test code = 10.4 fL 9.5-12.9 58982-5) NRBC/100 WBC (test See_Comment [Automat ed code = 2669987910) message] The system which generated this result transmit bruna reference range : 0.0 - 10.0 /100 WBCs. The reference range was not used to interpret this result as normal/abnormal . NRBC x10^3 (test code See_Comment [Auto mated = 8738238568) message] The system which generated this result transmit bruna reference range : 10*3/?L. The reference range was not used to interpret this result as normal/abnormal . GRAN MAT (NEUT) % 80.7 % (test code = 770-8) IMM GRAN % (test code 0.60 % = 2605180337) LYMPH % (test code = 9.4 % 736-9) MONO % (test code = 6.6 % 5905-5) EOS % (test code = 1.8 % 713-8) BASO % (test code = 0.9 % 706-2) GRAN MAT x10^3(ANC) 13.34 10*3/uL 1.88-7.09 H (test code = 3996464337) IMM GRAN x10^3 (test 0.10 10*3/uL 0.00-0.06 H code = 8619804251) LYMPH x10^3 (test code 1.55 10*3/uL 1.32-3.29 = 731-0) MONO x10^3 (test code 1.09 10*3/uL 0.33-0.92 H = 742-7) EOS x10^3 (test code = 0.29 10*3/uL 0.03-0.39 711-2) BASO x10^3 (test code 0.15 10*3/uL 0.01-0.07 H = 704-7) Lab Interpretation Abnormal (test code = 11704-2) [facility] [id number] 08:26:00 Test Item Value Reference Range Interpretation Comments POC-GLUCOSE METER 175 mg/dL 70-110 H TESTED AT [facility] 6720 (BIN) (test code = GIRISH VALLE [place] 1538) [address] [id number] 07:30:00 Test Item Value Reference Range Interpretation Comments MAGNESIUM (BEAKER) 1.8 mg/dL 1.6-2.6 Specimen slightly (test code = 627) hemolyzed [id number] 07:30:00 Test Item Value Reference Range Interpretation Comments PHOSPHORUS (BEAKER) 3.2 mg/dL 2.3-4.7 Specimen slightly (test code = 604) hemolyzed BASIC METABOLIC [id number] 07:30:00 Test Item Value Reference Range Interpretation [...] PATIEN TS. CBC W/PLT COUNT & AUTO [id number] 06:50:00 Test Item Value Reference Range Interpretation [...] PERCENT (BEAKER) (test code = 2801) POCT-GLUCOSE [id number] 21:15:00 Test Item Value Reference Range Interpretation Comments POC-GLUCOSE METER 246 mg/dL 70-110 H TESTED AT [facility] 6720 [facility] ([facility] 1538) [address] POCT-GLUCOSE [id number] 17:16:00 Test Item Value Reference Range Interpretation Comments POC-GLUCOSE METER 323 mg/dL 70-110 H TESTED AT [facility] 6720 [facility] (test code = GIRISH Celaya [facility] 1538) [address] POCT-GLUCOSE [id number] 13:13:00 Test Item Value Reference Range Interpretation Comments POC-GLUCOSE METER 250 mg/dL 70-110 H TESTED AT [facility] 6720 (BEAKER) (test code = GIRISH Celaya [facility] 1538) [address] POCT-GLUCOSE [id number] 08:26:00 Test Item Value Reference Range Interpretation Comments POC-GLUCOSE METER 261 mg/dL 70-110 H TESTED AT [facility] 6720 (BEAKER) (test code = [facility] 1538) [address] CALCIUM, [id number] 06:39:00 Test Item Value Reference Range Interpretation Comments CALCIUM IONIZED (BEAKER) (test 1.08 mmol/L 1.12-1.27 L code = 698) PH, BLOOD (BEAKER) (test code = 7.47 1810) [id number] 05:53:00 Test Item Value Reference Range Interpretation Comments PHOSPHORUS (BEAKER) (test code = 4.1 mg/dL 2.3-4.7 604) [id number] 05:53:00 Test Item Value Reference Range Interpretation Comments MAGNESIUM (BEAKER) (test code = 1.7 mg/dL 1.6-2.6 627) BASIC METABOLIC [id number] 05:53:00 Test Item Value Reference Range Interpretation [...] PATIEN TS. CBC W/PLT COUNT & AUTO [id number] 05:32:00 Test Item Value Reference Range Interpretation [...] EOSINOPHILS ABSOLUTE COUNT 0.35 K/ L 0.04-0.36 ([facility]) (test code = 416) BASOPHILS ABSOLUTE COUNT ([facility]) 0.07 K/ L 0.01-0.08 (test code = 417) IMMATURE GRANULOCYTES-RELATIVE 0 % 0-1 PERCENT ([facility]) (test code = 2801) POCT-GLUCOSE [id number] 22:58:00 Test Item Value Reference Range Interpretation Comments POC-GLUCOSE METER 390 mg/dL 70-110 H Notified R N or ([facility]) (test code = [facility] 1538) test/TESTED AT [address] [address] POCT-GLUCOSE [id number] 21:18:00 Test Item Value Reference Range Interpretation Comments POC-GLUCOSE METER 404 mg/dL 70-110 HH Notified R N MD/TESTED ([facility]) (test code = AT [address] 1538) [facility] 7703 0 POCT-GLUCOSE [id number] 17:45:00 Test Item Value Reference Range Interpretation Comments POC-GLUCOSE METER 217 mg/dL 70-110 H TESTED AT [place] [address] ([facility]) (test code = [facility] Belia [facility] 1538) [address] POCT-GLUCOSE [id number] 12:07:00 Test Item Value Reference Range Interpretation Comments POC-GLUCOSE METER 209 mg/dL 70-110 H TESTED AT [place] [address] ([facility]) (test code = LILAMA Belia [facility] 1538) [address] HEMOGLOBIN [id number] 07:58:00 Test Item Value Reference Range Interpretation Comments HEMOGLOBIN A1C ([facility]) (test code = 5.8 % 4.3-6.1 368) TSH/FREE T4 IF [id number] 05:30:00 Test Item Value Reference Range Interpretation Comments THYROID STIMULATING HORMONE 1.75 uIU/mL 0.35-4.94 ([facility]) (test code = 772) POCT-GLUCOSE [id number] 05:21:00 Test Item Value Reference Range Interpretation Comments POC-GLUCOSE METER 213 mg/dL 70-110 H TESTED AT [place] [address] ([facility]) (test code = GIRISH Celaya [facility] 1538) [address] [id number] 05:11:00 Test Item Value Reference Range Interpretation Comments PHOSPHORUS (BEAKER) (test code = 4.0 mg/dL 2.3-4.7 604) [id number] 05:11:00 Test Item Value Reference Range Interpretation Comments MAGNESIUM (BEAKER) (test code = 1.7 mg/dL 1.6-2.6 627) BASIC METABOLIC [id number] 05:11:00 Test Item Value Reference Range Interpretation [...] NOT APPLICABLE FOR DIALYSIS PATIEN TS. LIPID [id number] 05:11:00 Test Item Value Reference Range Interpretation [...] Very High >=190CBC W/PLT COUNT & AUTO [id number] 04:48:00 Test Item Value Reference Range Interpretation [...] 417) IMMATURE GRANULOCYTES-RELATIVE 0 % 0-1 PERCENT ([facility]) (test code = 2801) CALCIUM, [id number] 04:13:00 Test Item Value Reference Range Interpretation Comments CALCIUM IONIZED ([facility]) (test 1.15 mmol/L 1.12-1.27 code = 698) PH, BLOOD ([facility]) (test code = 7.47 1810) POCT-GLUCOSE [id number] 21:03:00 Test Item Value Reference Range Interpretation Comments POC-GLUCOSE METER 220 mg/dL 70-110 H TESTED AT [facility] 67 ([facility]) (test code = [facility] 1538) [address] IRON, TIBC, % SAT. (WITHOUT FERRITIN)2016-12-13 19:01:00 Test Item Value Reference Range Interpretation Comments IRON (BEAKER) (test code = 547) 23 ug/dL 40-160 L TOTAL IRON BINDING CAPACITY 404 ug/dL 250-450 ([facility]) (test code = 769) IRON % SATURATION (2) ([facility]) 6 % 20-55 L (test code = 2590) POCT-GLUCOSE [id number] 17:23:00 Test Item Value Reference Range Interpretation Comments POC-GLUCOSE METER 371 mg/dL 70-110 H TESTED AT [place] [address] ([facility]) (test code = [facility] 1538) [address] POCT-GLUCOSE [id number] 05:33:00 Test Item Value Reference Range Interpretation Comments POC-GLUCOSE METER 227 mg/dL 70-110 H TESTED AT [address] ([facility]) (test code [facility] [place] = 1538) [address] POCT-GLUCOSE [id number] 20:59:00 Test Item Value Reference Range Interpretation Comments POC-GLUCOSE METER 266 mg/dL 70-110 H TESTED AT [address] ([facility]) (test code [facility] [address] [facility] [place] = 1538) [address] POCT-GLUCOSE [id number] 20:58:00 Test Item Value Reference Range Interpretation Comments POC-GLUCOSE METER 300 mg/dL 70-110 H TESTED AT [address] ([facility]) (test code [facility] [address] [facility] [place] = 1538) [address] POCT-GLUCOSE [id number] 20:58:00 Test Item Value Reference Range Interpretation Comments POC-GLUCOSE METER 177 mg/dL 70-110 H TESTED AT [address] ([facility]) (test code [facility] [address] [facility] [place] = 1538) [address] HEMORRHAGE IMAGING, [id number] 13:30:00FINAL REPORT PROCEDURE: HEMORRHAGE STUDY with RBCs CPT CODE: 80582 INDICATION: G astrointestinal Bleeding PROTOCOL: 21.5 mCi [...] MDReport Verified Date/Time: 12/12/2016 13:30:53 Reading Location: [address] Reading Room POCT-GLUCOSE [id number] 11:21:00 Test Item Value Reference Range Interpretation Comments POC-GLUCOSE METER 168 mg/dL 70-110 H TESTED AT [address] ([facility]) (test code [address] [facility] [place] = 1538) [address] POCT-GLUCOSE [id number] 11:21:00 Test Item Value Reference Range Interpretation Comments POC-GLUCOSE METER 184 mg/dL 70-110 H TESTED AT [address] ([facility]) (test code [address] [facility] [place] = 1538) [address] BASIC METABOLIC [id number] 05:16:00 Test Item Value Reference Range Interpretation [...] S NOT APPLICABLE FOR DIALYSIS PATIEN TS. [id number] 05:10:00 Test Item Value Reference Range Interpretation Comments MAGNESIUM (BEAKER) (test code = 2.0 mg/dL 1.5-3.0 627) CBC W/PLT COUNT & AUTO [id number] 04:57:00 Test Item Value Reference Range Interpretation [...] L 0.00-0.20 (test code = 417) POCT-GLUCOSE [id number] 17:02:00 Test Item Value Reference Range Interpretation Comments POC-GLUCOSE METER 177 mg/dL 70-110 H TESTED AT [address] ([facility]) (test code [facility] [place] = 1538) [address] POCT-GLUCOSE [id number] 11:34:00 Test Item Value Reference Range Interpretation Comments POC-GLUCOSE METER 207 mg/dL 70-110 H TESTED AT [address] ([facility]) (test code [facility] [place] = 1538) [address] CBC W/PLT COUNT & AUTO [id number] 10:45:00 Test Item Value Reference Range Interpretation [...] code = 2+ moderate 963) BASIC METABOLIC [id number] 09:40:00 Test Item Value Reference Range Interpretation [...] S NOT APPLICABLE FOR DIALYSIS PATIEN TS. [id number] 09:39:00 Test Item Value Reference Range Interpretation Comments PHOSPHORUS (BEAKER) (test code = 3.3 mg/dL 2.5-4.5 604) [id number] 09:34:00 Test Item Value Reference Range Interpretation Comments MAGNESIUM (BEAKER) (test code = 2.1 mg/dL 1.5-3.0 627) POCT-GLUCOSE [id number] 06:01:00 Test Item Value Reference Range Interpretation Comments POC-GLUCOSE METER 171 mg/dL 70-110 H TESTED AT [address] [facility] (test code [facility] [place] = 1538) [address] POCT-GLUCOSE [id number] 06:00:00 Test Item Value Reference Range Interpretation Comments POC-GLUCOSE METER 148 mg/dL 70-110 H TESTED AT [address] (BEAKER) (test code [facility] [place] = 1538) [address] URINALYSIS W/ [id number] 05:01:00 Test Item Value Reference Range Interpretation [...] = 2795) RAD, CHEST, 1 VIEW, NON [id number] 21:04:00Reason for exam:->coughShould this be performed at [...] Sanchez Verified Date/Time: 12/10/2016 21:04:27 Reading Location: [address] Consult Reading Room OCCULT BLOOD, [id number] 20:24:00 Test Item Value Reference Range Interpretation Comments FECAL OCCULT BLOOD (BEAKER) (test Positive Negative A code = 618) CBC W/PLT COUNT & AUTO [id number] 20:10:00 Test Item Value Reference Range Interpretation [...] RBCS(BEAKER) 1+ few (test code = 478) [id number] 20:07:00 Test Item Value Reference Range Interpretation [...] is 2.5-3.5 for patients with mechanical heart valves.[id number] 20:07:00 Test Item Value Reference Range Interpretation Comments LIPASE (BEAKER) (test code = 749) 37 U/L 6-51 COMPREHENSIVE METABOLIC [id number] 20:06:00 Test Item Value Reference Range Interpretation [...] NOT APPLICABLE FOR DIALYSIS PATIEN TS. BLOOD [id number] 06:00:00 Test Item Value Reference Range Interpretation Comments CULTURE (BEAKER) (test No growth in 5 days code = 1095) BLOOD [id number] 06:00:00 Test Item Value Reference Range Interpretation Comments CULTURE (BEAKER) (test No growth in 5 days code = 1095) POCT-GLUCOSE [id number] 12:19:00 Test Item Value Reference Range Interpretation Comments POC-GLUCOSE METER 132 mg/dL 70-110 H TESTED AT [place] [address] ([facility]) (test code = [facility] 1538) [address] POCT-GLUCOSE [id number] 11:19:00 Test Item Value Reference Range Interpretation Comments POC-GLUCOSE METER 222 mg/dL 70-110 H TESTED AT [place] [address] ([facility]) (test code = [facility] 1538) [id number] POCT-GLUCOSE [id number] 07:21:00 Test Item Value Reference Range Interpretation Comments POC-GLUCOSE METER 309 mg/dL 70-110 H Notified R Jose FELIX/TESTED ([facility]) (test code = AT [address] 1538) [facility] 7703 0 CBC W/PLT COUNT & AUTO [id number] 05:52:00 Test Item Value Reference Range Interpretation [...] PERCENT (BEAKER) (test code = 2801) POCT-GLUCOSE [id number] 21:36:00 Test Item Value Reference Range Interpretation Comments POC-GLUCOSE METER 284 mg/dL 70-110 H TESTED AT [facility] 6720 (BEAKER) (test code = [facility] [place] 1538) [id number] POCT-GLUCOSE [id number] 17:03:00 Test Item Value Reference Range Interpretation Comments POC-GLUCOSE METER 394 mg/dL 70-110 H Notified R N MD/TESTED (BEAKER) (test code = AT [address] 1538) [facility] 7703 0 POCT-GLUCOSE [id number] 11:47:00 Test Item Value Reference Range Interpretation Comments POC-GLUCOSE METER 332 mg/dL 70-110 H Notified R N MD/TESTED (BEAKER) (test code = AT [address] 1538) [facility] 7703 0 POCT-GLUCOSE [id number] 07:19:00 Test Item Value Reference Range Interpretation Comments POC-GLUCOSE METER 350 mg/dL 70-110 H Notified R N MD/TESTED (BEAKER) (test code = AT [place] [id number]) [facility] 7703 0 BASIC METABOLIC [id number] 05:27:00 Test Item Value Reference Range Interpretation [...] PATIEN TS. CBC W/PLT COUNT & AUTO [id number] 05:05:00 Test Item Value Reference Range Interpretation [...] PERCENT (BEAKER) (test code = 2801) POCT-GLUCOSE [id number] 22:29:00 Test Item Value Reference Range Interpretation Comments POC-GLUCOSE METER 256 mg/dL 70-110 H TESTED AT [place] [address] ([facility]) (test code = GIRISH Celaya [facility] 1538) [address] POCT-GLUCOSE [id number] 18:52:00 Test Item Value Reference Range Interpretation Comments POC-GLUCOSE METER 366 mg/dL 70-110 H Notified R Jose FELIX/TESTED ([facility]) (test code = AT [place] [address]) [facility] 7703 0 POCT-GLUCOSE [id number] 12:02:00 Test Item Value Reference Range Interpretation Comments POC-GLUCOSE METER 399 mg/dL 70-110 H Notified R Jose FELIX/TESTED ([facility]) (test code = AT [place] [address]) [facility] 7703 0 POCT-GLUCOSE [id number] 09:06:00 Test Item Value Reference Range Interpretation Comments POC-GLUCOSE METER 236 mg/dL 70-110 H TESTED AT [place] [address] ([facility]) (test code = GIR[place]aya [facility] 1538) [address] POCT-GLUCOSE [id number] 08:28:00 Test Item Value Reference Range Interpretation Comments POC-GLUCOSE METER 271 mg/dL 70-110 H TESTED AT [place] [address] ([facility]) (test code = [place]IR[place]aya [facility] 1538) [address] POCT-GLUCOSE [id number] 06:31:00 Test Item Value Reference Range Interpretation Comments POC-GLUCOSE METER 236 mg/dL 70-110 H TESTED AT [place] [address] ([facility]) (test code = [place] [address]18) [address] BASIC METABOLIC [id number] 05:14:00 Test Item Value Reference Range Interpretation [...] 358) GLUCOSE RANDOM 257 mg/dL 70-105 H ([facility]) (test code = 652) CALCIUM (BEAKER) 8.9 mg/dL 8.4-10.2 (test code = 697) EGFR (BEAKER) (test 60 mL/min/1.73 ESTIMA BRUNA GFR IS code = 1092) sq m NOT ACCURATE CREATININE CLEARANCE IN PREDICTING GLOMERULAR FILTRATION RATE . ESTIMATED GFR I S NOT APPLICABLE FOR DIALYSIS PATIEN TS. HEMOGLOBIN AND [id number] 05:02:00 Test Item Value Reference Range Interpretation Comments HEMOGLOBIN (BEAKER) (test code = 7.9 GM/DL 11.2-15.7 L 410) HEMATOCRIT (BEAKER) (test code = 25.5 % 34.1-44.9 L 411) POCT-GLUCOSE [id number] 22:05:00 Test Item Value Reference Range Interpretation Comments POC-GLUCOSE METER 235 mg/dL 70-110 H TESTED AT [place] [address] ([facility]) (test code = [facility] 1538) [address] POCT-GLUCOSE [id number] 21:56:00 Test Item Value Reference Range Interpretation Comments POC-GLUCOSE METER 274 mg/dL 70-110 H TESTED AT [place] [address] ([facility]) (test code = [facility] 1538) [address] HEMOGLOBIN AND [id number] 21:00:00 Test Item Value Reference Range Interpretation Comments HEMOGLOBIN (BEAKER) (test code = 7.9 GM/DL 11.2-15.7 L 410) [facility] (test code = 26.1 % 34.1-44.9 L 411) POCT-GLUCOSE [id number] 17:28:00 Test Item Value Reference Range Interpretation Comments POC-GLUCOSE METER 291 mg/dL 70-110 H TESTED AT [place] [address] ([facility]) (test code = [facility] 1538) [address] VANCOMYCIN LEVEL, [id number] 14:15:00 Test Item Value Reference Range Interpretation Comments VANCOMYCIN TROUGH ([facility]) (test 18.1 ug/mL 10.0-20.0 code = 522) HEMOGLOBIN AND [id number] 13:53:00 Test Item Value Reference Range Interpretation Comments HEMOGLOBIN (BEAKER) (test code = 8.6 GM/DL 11.2-15.7 L 410) HEMATOCRIT (BEAKER) (test code = 28.0 % 34.1-44.9 L 411) POCT-GLUCOSE [id number] 06:09:00 Test Item Value Reference Range Interpretation Comments POC-GLUCOSE METER 205 mg/dL 70-110 H TESTED AT [facility] 6720 (BEAKER) (test code = [place] 1538) [address] BASIC METABOLIC [id number] 03:51:00 Test Item Value Reference Range Interpretation [...] PATIEN TS. CBC W/PLT COUNT & AUTO [id number] 03:28:00 Test Item Value Reference Range Interpretation [...] PERCENT (BEAKER) (test code = 2801) POCT-GLUCOSE [id number] 00:46:00 Test Item Value Reference Range Interpretation Comments POC-GLUCOSE METER 331 mg/dL 70-110 H TESTED AT [facility] 6720 (BEAKER) (test code = [place] 1538) [address] HEMOGLOBIN AND [id number] 23:35:00 Test Item Value Reference Range Interpretation Comments HEMOGLOBIN (BEAKER) (test code = 8.0 GM/DL 11.2-15.7 L 410) HEMATOCRIT (BEAKER) (test code = 24.9 % 34.1-44.9 L 411) POCT-GLUCOSE [id number] 18:09:00 Test Item Value Reference Range Interpretation Comments POC-GLUCOSE METER 391 mg/dL 70-110 H Notified Belia Adams MD/TESTED (BEAKER) (test code = AT [facility] 6720 [facility] 1538) [facility] 7703 0 HEMOGLOBIN AND [id number] 16:39:00 Test Item Value Reference Range Interpretation Comments HEMOGLOBIN (BEAKER) (test code = 6.7 GM/DL 11.2-15.7 L 410) HEMATOCRIT (BEAKER) (test code = 22.4 % 34.1-44.9 L 411) POCT-GLUCOSE [id number] 12:39:00 Test Item Value Reference Range Interpretation Comments POC-GLUCOSE METER 238 mg/dL 70-110 H TESTED AT [facility] 6720 (BEAKER) (test code = [place] [facility] 1538) [address] HEMOGLOBIN AND [id number] 11:15:00 Test Item Value Reference Range Interpretation Comments HEMOGLOBIN (BEAKER) (test code = 7.5 GM/DL 11.2-15.7 L 410) HEMATOCRIT (BEAKER) (test code = 24.9 % 34.1-44.9 L 411) CBC W/PLT COUNT & AUTO [id number] 07:49:00 Test Item Value Reference Range Interpretation [...] PERCENT (BEAKER) (test code = 2801) POCT-GLUCOSE [id number] 06:45:00 Test Item Value Reference Range Interpretation Comments POC-GLUCOSE METER 205 mg/dL 70-110 H TESTED AT [facility] 6720 (BEAKER) (test code = G[place] [facility] 1538) [address] LACTIC ACID, VENOUS, WHOLE [id number] 01:37:00 Test Item Value Reference Range Interpretation Comments LACTATE BLOOD VENOUS (2) (BEAKER) 1.9 mmol/L 0.5-2.2 (test code = 2872) Effective 07/31/2015: Units/Reference Range ChangeNew: 0.5-2.2 mmol/L Previous: 5- 20 mg/dLCOMPREHENSIVE METABOLIC [id number] 00:19:00 Test Item Value Reference Range Interpretation [...] S NOT APPLICABLE FOR DIALYSIS PATIEN TS. [id number] 00:17:00 Test Item Value Reference Range Interpretation Comments PHOSPHORUS (BEAKER) (test code = 3.2 mg/dL 2.3-4.7 604) [id number] 00:17:00 Test Item Value Reference Range Interpretation Comments MAGNESIUM (BEAKER) (test code = 2.1 mg/dL 1.6-2.6 627) POCT-GLUCOSE [id number] 00:17:00 Test Item Value Reference Range Interpretation Comments POC-GLUCOSE METER 200 mg/dL 70-110 H TESTED AT [facility] 6720 (BEAKER) (test code = [place] 4768) [address] PROTHROMBIN [id number] 00:07:00 Test Item Value Reference Range Interpretation [...] mechanical heart valves.CBC W/PLT COUNT & AUTO [id number] 00:03:00 Test Item Value Reference Range Interpretation [...] PERCENT (BEAKER) (test code = 2801) POCT-GLUCOSE [id number] 11:41:00 Test Item Value Reference Range Interpretation Comments POC-GLUCOSE METER 259 mg/dL 70-110 H TESTED AT [facility] 6720 (BEAKER) (test code = [place] 1538) [address] [id number] 07:35:00 Test Item Value Reference Range Interpretation Comments PHOSPHORUS (BEAKER) (test code = 3.5 mg/dL 2.3-4.7 604) [id number] 07:35:00 Test Item Value Reference Range Interpretation Comments MAGNESIUM (BEAKER) (test code = 1.6 mg/dL 1.6-2.6 627) BASIC METABOLIC [id number] 07:35:00 Test Item Value Reference Range Interpretation [...] NOT APPLICABLE FOR DIALYSIS PATIEN TS. POCT-GLUCOSE [id number] 07:33:00 Test Item Value Reference Range Interpretation Comments POC-GLUCOSE METER 247 mg/dL 70-110 H TESTED AT [facility] 6720 (AKER) (test code = [place] 1538) [address] CBC W/PLT COUNT & AUTO [id number] 06:53:00 Test Item Value Reference Range Interpretation [...] PERCENT (BEAKER) (test code = 2801) POCT-GLUCOSE [id number] 21:09:00 Test Item Value Reference Range Interpretation Comments POC-GLUCOSE METER 398 mg/dL 70-110 H Patient on insulin ([facility]) (test code = Drip/T ESTED AT [place] [address]) 6720 [facility] [address] POCT-GLUCOSE [id number] 17:42:00 Test Item Value Reference Range Interpretation Comments POC-GLUCOSE METER 341 mg/dL 70-110 H TESTED AT [place] [address] ([facility]) (test code = [facility] 1538) [address] POCT-GLUCOSE [id number] 12:03:00 Test Item Value Reference Range Interpretation Comments POC-GLUCOSE METER 285 mg/dL 70-110 H TESTED AT [place] [address] ([facility]) (test code = [facility] 1538) [address] POCT-GLUCOSE [id number] 06:11:00 Test Item Value Reference Range Interpretation Comments POC-GLUCOSE METER 335 mg/dL 70-110 H TESTED AT [place] [address] ([facility]) (test code = [facility] 1538) [address] [id number] 05:12:00 Test Item Value Reference Range Interpretation Comments PHOSPHORUS (BEAKER) (test code = 4.0 mg/dL 2.3-4.7 604) [id number] 05:12:00 Test Item Value Reference Range Interpretation Comments MAGNESIUM (BEAKER) (test code = 1.5 mg/dL 1.6-2.6 L 627) BASIC METABOLIC [id number] 05:12:00 Test Item Value Reference Range Interpretation [...] PATIEN TS. CBC W/PLT COUNT & AUTO [id number] 04:40:00 Test Item Value Reference Range Interpretation [...] PERCENT (BEAKER) (test code = 2801) POCT-GLUCOSE [id number] 21:37:00 Test Item Value Reference Range Interpretation Comments POC-GLUCOSE METER 271 mg/dL 70-110 H TESTED AT [place] [address] (BEAKER) (test code = GIR[place] Celaya [facility] 1538) [address] POCT-GLUCOSE [id number] 17:40:00 Test Item Value Reference Range Interpretation Comments POC-GLUCOSE METER 273 mg/dL 70-110 H TESTED AT [place] [address] (BEAKER) (test code = GIR[place]aya [facility] 1538) [address] POCT-GLUCOSE [id number] 12:52:00 Test Item Value Reference Range Interpretation Comments POC-GLUCOSE METER 303 mg/dL 70-110 H TESTED AT [place] [address] (BEAKER) (test code = GIR[place] [facility] 1538) [address] POCT-GLUCOSE [id number] 08:44:00 Test Item Value Reference Range Interpretation Comments POC-GLUCOSE METER 306 mg/dL 70-110 H Notified R N MD/TESTED (BEAKER) (test code = AT [facility] 67[address] [place] 1538) [place] [address] [id number] 04:53:00 Test Item Value Reference Range Interpretation Comments PHOSPHORUS (BEAKER) (test code = 4.0 mg/dL 2.3-4.7 604) [id number] 04:53:00 Test Item Value Reference Range Interpretation Comments MAGNESIUM (BEAKER) (test code = 1.7 mg/dL 1.6-2.6 627) BASIC METABOLIC [id number] 04:53:00 Test Item Value Reference Range Interpretation [...] PATIEN TS. CBC W/PLT COUNT & AUTO [id number] 04:38:00 Test Item Value Reference Range Interpretation [...] PERCENT (BEAKER) (test code = 2801) POCT-GLUCOSE [id number] 21:24:00 Test Item Value Reference Range Interpretation Comments POC-GLUCOSE METER 307 mg/dL 70-110 H Notified Belia Adams MD/TESTED (BEAKER) (test code = AT [facility] [address] [place] [address]) [place] [address] POCT-GLUCOSE [id number] 17:52:00 Test Item Value Reference Range Interpretation Comments POC-GLUCOSE METER 224 mg/dL 70-110 H TESTED AT [facility] 6720 (BEAKER) (test code = [place] [facility] 1538) [address] POCT-GLUCOSE [id number] 12:46:00 Test Item Value Reference Range Interpretation Comments POC-GLUCOSE METER 250 mg/dL 70-110 H TESTED AT [facility] 6720 (BEAKER) (test code = [place]IR[place] [facility] 1538) [address] POCT-GLUCOSE [id number] 08:44:00 Test Item Value Reference Range Interpretation Comments POC-GLUCOSE METER 319 mg/dL 70-110 H Notified R Jose FELIX/TESTED (BEAKER) (test code = AT [facility] 6720 [facility] 1538) [facility] 7703 0 [id number] 05:35:00 Test Item Value Reference Range Interpretation Comments PHOSPHORUS (BEAKER) (test code = 3.8 mg/dL 2.3-4.7 604) [id number] 05:35:00 Test Item Value Reference Range Interpretation Comments MAGNESIUM (BEAKER) (test code = 1.8 mg/dL 1.6-2.6 627) BASIC METABOLIC [id number] 05:35:00 Test Item Value Reference Range Interpretation [...] PATIEN TS. CBC W/PLT COUNT & AUTO [id number] 04:52:00 Test Item Value Reference Range Interpretation [...] 417) IMMATURE GRANULOCYTES-RELATIVE 0 % 0-1 PERCENT ([facility]) (test code = 2801) POCT-GLUCOSE [id number] 21:33:00 Test Item Value Reference Range Interpretation Comments POC-GLUCOSE METER 195 mg/dL 70-110 H TESTED AT [place] [address] ([facility]) (test code = [place] 1538) [address] POCT-GLUCOSE [id number] 20:09:00 Test Item Value Reference Range Interpretation Comments POC-GLUCOSE METER 268 mg/dL 70-110 H TESTED AT [place] [address] ([facility]) (test code = [place] 1538) [address] POCT-GLUCOSE [id number] 17:13:00 Test Item Value Reference Range Interpretation Comments POC-GLUCOSE METER 400 mg/dL 70-110 HH TESTED AT [place] [address] ([facility]) (test code = [place] 1538) [address] POCT-GLUCOSE [id number] 10:55:00 Test Item Value Reference Range Interpretation Comments POC-GLUCOSE METER 216 mg/dL 70-110 H TESTED AT [place] [address] ([facility]) (test code = [place] 1538) [address] POCT-GLUCOSE [id number] 07:07:00 Test Item Value Reference Range Interpretation Comments POC-GLUCOSE METER 240 mg/dL 70-110 H TESTED AT [place] [address] ([facility]) (test code = [place] 1538) [address] POCT-GLUCOSE [id number] 06:13:00 Test Item Value Reference Range Interpretation Comments POC-GLUCOSE METER 249 mg/dL 70-110 H TESTED AT [place] [address] ([facility]) (test code = [place] 1538) [address] [id number] 05:36:00 Test Item Value Reference Range Interpretation Comments [facility]US [facility] (test code = 3.5 mg/dL 2.3-4.7 604) [id number] 05:36:00 Test Item Value Reference Range Interpretation Comments MAGNESIUM ([facility] (test code = 1.7 mg/dL 1.6-2.6 627) BASIC METABOLIC [id number] 05:36:00 Test Item Value Reference Range Interpretation [...] PATIEN TS. CBC W/PLT COUNT & AUTO [id number] 05:19:00 Test Item Value Reference Range Interpretation [...] (BEAKER) (test code = 2801) COMPREHENSIVE METABOLIC [id number] 23:04:00 Test Item Value Reference Range Interpretation [...] NOT APPLICABLE FOR DIALYSIS PATIEN TS. PROTHROMBIN [id number] 22:57:00 Test Item Value Reference Range Interpretation Comments PROTIME (BEAKER) (test code = 14.1 seconds 11.7-14.7 759) INR (BEAKER) (test code = 370) 1.1 <=5.9 RECOMMENDED COUMADIN/WARFARIN INR THERAPY RANGESSTANDARD DOSE: 2.0 - 3.0 Includes: PROPHYLAXIS for venous thrombosis, systemic embolization; TREATMENT for venous thrombosis and/or pulmonary embolus.HIGH RISK: Target INR is 2.5-3.5 for patients with mechanical heart valves.CBC W/PLT COUNT & AUTO [id number] 22:51:00 Test Item Value Reference Range Interpretation [...] Note Provider Source 2016-12-11 08:14:00-00:00 YULIET BRITT [facility] CONSULTATION SHIRA SALAZAR FACILITY: [facility] BILLING #: [id number] ROOM: [address] [place] [address] MR #: [id number] : 1945 DATE OF ADMISSION: 12/10/2016 DATE OF CONSULTATION: REQUESTING PHYSICIAN: Latonia Leger MD PHONE CIRCUIT OPERATOR: Yuliet Britt MD GASTROENTEROLOGY CONSULTATION NOTE REASON FOR CONSULTATION: Melena. HISTORY OF PRESENT ILLNESS: This is a 70-year-ol d female with history of GI bleed in the past, who presents to [facility] with chief complaint of black tarry stools [...] recently, patient was admitted to [facility] in the [facility] 2 weeks ago, where she underwent [...] wheezing. GENITOURINARY: No hematuria or dysuria or increa sed frequency. NEUROLOGIC: No focal weakness or sensory [...] patient will require transf er to the [facility] for small bowel balloon enteroscopy, where the entir e small bowel can be evaluated. At some point, she also needs a colon oscopy, but right now she is having melena and most likely source is in her s mall bowel. I appreciate the opportunity to participate in t he care of this patient. NBV/cq A A Job#: [id number] Doc#: [id number] FN: [id number] cc: MD Yuliet Mata MD 2016-12-10 23:41:00-00:00 LATONIA LEGER [facility] HISTORY AND PHYSICAL EXAMINATION SHIRA SALAZAR FACILITY: [facility] BILLING #: [id number] ROOM: [address] [place] [address] MR #: [id number] : 1945 DATE OF ADMISSION: 12/10/2016 ADMITTING PHYSICIAN: Latonia Leger MD DATE OF : 1945 REASON FOR ADMISSION: GI bleed. HPI: The patient is a pleasant 71-year-old woman with a history of asthma, GERD, diabetes, depression, neuropathy, ischemic bowel syndrome, who was on Plavix for mesenteric stent, has a history of is chemic colitis status post resection, was admitted [facility] for GI bleed. Had a small [...] Restart home medications. NSG/dx P P Job#: [id number] Doc#: [id number] FN: [id number] cc: Latonia Leger MD
--- NOTE | 2022-11-29 21:30 | RAD REPORT ---
EXAM DESCRIPTION: RAD - Chest Single View - 11/29/2022 9:12 pm CLINICAL HISTORY: COUGH COMPARISON: Chest Single View dated 10/29/2022; Chest Single View dated 07/27/2022; Chest Single View da bruna 06/03/2022; Chest Single View dated 01/24/2022 FINDINGS: Lines: None. Lungs: No evidence of edema or pneumonia. Pleural: No significant pleural effusions or pneumothorax. Cardiac: The heart size is within normal limits. Mediastinum: Within normal limits. Bones: No acute fractures. Other: None IMPRESSION: No acute cardiopulmonary disease.
[2022-11-29] MEDS ORDERED: PANTOPRAZOLE 40 MG INJ ONE ×2 (21:32→21:34)
[2022-11-29] MEDS ORDERED: NA CHLORIDE 0.9% 500 ML ONE (21:33)
[2022-11-29] MEDS ORDERED: NA CHLORIDE 0.9% 1,000 ML ONE (21:33)
[2022-11-29] MEDS ORDERED: NA CHLORIDE 0.9% 250 ML ONE (21:33)
--- NOTE | 2022-11-29 21:37 | EDPHYS ---
Physician Documentation [facility] Name: Sia Salazar Age: 77 yrs Sex: Female : 1945 Arrival Date: 11/29/2022 Time: 20:34 Bed 20 Private MD: ED Physician Roderick Luna HPI: 11/29 21:25 This 77 yrs old Female presents to ER via EMS with complaints of black nelly stools, sob. 21:25 The patient has shortness of breath at rest, with light activity. Onset: The nelly symptoms/episode began/occurred today. Duration: The symptoms are continuous, and are steadily getting worse. The patient's shortness of breath is aggravated by nothing, is alleviated by nothing. The patient presents with abdominal pain in the upper abdomen, in the lower abdomen. Onset: The symptoms/episode began/occurred today. The patient presents to the emergency department with rectal bleeding, a small amount. Abdominal pain: located in the right upper quadrant, left upper quadrant, right lower quadrant and left lower quadrant. Modifying factors: The symptoms are alleviated by nothing, the symptoms are aggravated by nothing. Associated signs and symptoms: Pertinent positives: non-productive cough. Severity of symptoms: At their worst the symptoms were mild moderate in the emergency department the symptoms are unchanged. Associated signs and symptoms: Pertinent positives: shortness of breath. Associated signs and symptoms: Pertinent positives: blood in stools, shortness of breath. Modifying factors: The symptoms are alleviated by nothing, the symptoms are aggravated by nothing. Historical: - Allergies: 21:09 Wellbutrin; sg5 21:09 Sulfa (Sulfonamide Antibiotics); sg5 21:09 Actos; sg5 21:09 Clindamycin; sg5 21:09 Bactrim; sg5 21:09 Crestor; sg5 21:09 Codeine; sg5 21:09 Erythromycin; sg5 21:09 Darvocet-N 100; sg5 21:09 Glipizide; sg5 21:09 Iodinated Contrast Media - IV Dye; sg5 21:09 Januvia; sg5 21:09 Lipitor; sg5 21:09 metformin; sg5 21:09 Morphine; sg5 21:09 Glimepiride; sg5 21:09 PENICILLINS; sg5 22:31 Metronidazole; sg5 - Home Meds: 21:03 metoprolol succinate oral 250 mg 1 tab daily [Active]; omeprazole 40 mg Oral sg5 capsule,delayed release (e.c.) 1 cap daily [Active]; Novolin R FlexPen 100 unit/mL (3 mL) subcutaneous Insulin Pen 12 units 2 times per day [Active]; magnesium oxide 400 mg (241.3 mg magnesium) Oral tablet 1 tab 2 times per day [Active]; ferrous sulfate 325 mg (65 mg iron) Oral tablet 1 tab daily [Active]; duloxetine 60 mg Oral capsule,delayed release (e.c.) 1 cap daily [Active]; - PMHx: 21:09 angiodysplasia; bowel AVMs; bronchospastic airway disease; celiac artery stenosis; sg5 Cerebrovascular disease; chronic mesenteric ischemia; chronic pulmonary embolism; Depression; Diabetes - IDDM; COPD; GERD; ibs; ischemic bowel disease; peripheral artery disease; SBO; - PSHx: 21:09 Cholecystectomy; Coronary artery bypass graft; Tonsillectomy; sg5 - Immunization history:: Adult Immunizations up to date, Flu vaccine is not up to date. - Social history:: Smoking status: Patient denies any tobacco usage or history of. - Family history:: not pertinent. ROS: 21:25 Constitutional: Negative for fever, chills, and weight loss, Eyes: Negative for injury, nelly pain, redness, and discharge, ENT: Negative for injury, pain, and discharge, Neck: Negative for injury, pain, and swelling, Cardiovascular: Negative for chest pain, palpitations, and edema, Back: Negative for injury and pain, : Negative for injury, bleeding, discharge, and swelling, MS/Extremity: Negative for injury and deformity, Skin: Negative for injury, rash, and discoloration, Neuro: Negative for headache, weakness, numbness, tingling, and seizure, Psych: Negative for depression, anxiety, suicide ideation, homicidal ideation, and hallucinations, Allergy/Immunology: Negative for hives, rash, and allergies, Endocrine: Negative for neck swelling, polydipsia, polyuria, polyphagia, and marked weight changes, Hematologic/Lymphatic: Negative for swollen nodes, abnormal bleeding, and unusual bruising. 21:25 Respiratory: Positive for cough, shortness of breath. 21:25 Abdomen/GI: Positive for abdominal pain, abdominal cramps. Exam: 21:25 Constitutional: This is a well developed, well nourished patient who is awake, alert, nelly and in no acute distress. Head/Face: Normocephalic, atraumatic. Eyes: Pupils equal round and reactive to light, extra-ocular motions intact. Lids and lashes normal. Conjunctiva and sclera are non-icteric and not injected. Cornea within normal limits. Periorbital areas with no swelling, redness, or edema. ENT: Nares patent. No nasal discharge, no septal abnormalities noted. Tympanic membranes are normal and external auditory canals are clear. Oropharynx with no redness, swelling, or masses, exudates, or evidence of obstruction, uvula midline. Mucous membranes moist. Neck: Trachea midline, no thyromegaly or masses palpated, and no cervical lymphadenopathy. Supple, full range of motion without nuchal rigidity, or vertebral point tenderness. No Meningismus. Chest/axilla: Normal chest wall appearance and motion. Nontender with no deformity. No lesions are appreciated. Cardiovascular: Regular rate and rhythm with a normal S1 and S2. No gallops, murmurs, or rubs. Normal PMI, no JVD. No pulse deficits. Respiratory: Lungs have equal breath sounds bilaterally, clear to auscultation and percussion. No rales, rhonchi or wheezes noted. No increased work of breathing, no retractions or nasal flaring. Back: No spinal tenderness. No costovertebral tenderness. Full range of motion. Female : Normal external genitalia. Skin: Warm, dry with normal turgor. Normal color with no rashes, no lesions, and no evidence of cellulitis. MS/ Extremity: Pulses equal, no cyanosis. Neurovascular intact. Full, normal range of motion. Neuro: Awake and alert, GCS 15, oriented to person, place, time, and situation. Cranial nerves II-XII grossly intact. Motor strength 5/5 in all extremities. Sensory grossly intact. Cerebellar exam normal. Normal gait. Psych: Awake, alert, with orientation to person, place and time. Behavior, mood, and affect are within normal limits. 21:25 Abdomen/GI: Inspection: distension, Bowel sounds: active, all quadrants, Palpation: mild abdominal tenderness, in all quadrants, Liver: no appreciated palpable abnormalities, Hernia: not appreciated. Vital Signs: 20:58 BP 180 / 45; Pulse 73; Resp 18; Temp 98.6(O); Pulse Ox 98% on 2 lpm NC; Weight 79.38 sg5 kg; Height 5 ft. 6 in. ; Pain 5/10; 22:30 BP 178 / 76; Pulse 92; Resp 18; Pulse Ox 95% on 2 lpm NC; sg5 23:30 BP 176 / 86; Pulse 89; Resp 18; Temp 98.6(O); Pulse Ox 96% on 2 lpm NC; Pain 4/10; sg5 20:58 Body Mass Index 28.25 (79.38 kg, 167.64 cm) sg5 20:58 Pain Scale: Adult sg5 23:30 Pain Scale: Adult sg5 MDM: 20:51 Patient medically screened. [facility] 21:31 Differential diagnosis: Anemia CHF exacerbation, gastritis, hemorrhoids, varices, nelly pneumonia, Pneumothorax reactive airway disease, bowel obstruction, diverticulitis, gastritis, Irritable bowel syndrome, non-specific abd pain, pancreatitis, Peptic Ulcer Disease, urinary tract infection. Antibiotic administration: levofloxacin and flagyl. Immunization status: Pneumococcal vaccine: within last 5 years. Influenza vaccine: within last 5 years. Data reviewed: vital signs, nurses notes, lab test result(s), EKG, radiologic studies, CT scan, plain films. Consideration of Admission/Observation Escalation of care including admission/observation considered. I considered the following discharge prescriptions or medication management in the emergency department Medications were administered in the Emergency Department. See MAR. Independent interpretation of the following test(s) in the Emergency Department EKG: See my EKG interpretation above. Test considered but Not performed: Ultrasound no abd usg. Historians other than the Patient: Family Member: daughter. Care significantly affected by the following chronic conditions: Diabetes, Chronic Obstructive Pulmonary Disease, Obesity, Chronic Kidney Disease, avm's. Counseling: I had a detailed discussion with the patient and/or guardian regarding the historical points, exam findings, and any diagnostic results supporting the discharge/admit diagnosis, lab results, radiology results, the need to transfer to another facility, for higher level of care, [facility] does not immediately have the required specialist. 11/29 20:53 Order name: Basic Metabolic Panel; Complete Time: 22:31 [facility] 11/29 20:53 Order name: CBC with Diff; Complete Time: 22:23 [facility] 11/29 20:53 Order name: LFT's; Complete Time: 22:31 [facility] 11/29 20:53 Order name: Magnesium; Complete Time: 22:31 [facility] 11/29 20:53 Order name: NT PRO-BNP; Complete Time: 22:31 [facility] 11/29 20:53 Order name: PT-INR; Complete Time: 22:52 [facility] 11/29 20:53 Order name: Troponin HS; Complete Time: 22:31 [facility] 11/29 20:53 Order name: Lipase; Complete Time: 22:31 [facility] 11/29 21:06 Order name: Blood Culture Adult (2) [facility] 11/29 21:06 Order name: Lactate w/ 2H reflex if indic.; Complete Time: 22:31 [facility] 11/29 21:06 Order name: SARS RAPID; Complete Time: 22:52 [facility] 11/29 21:06 Order name: Flu [facility] 11/29 20:53 Order name: XRAY Chest (1 view); Complete Time: 21:38 [facility] 11/29 21:11 Order name: CT Chest Abdomen Pelvis W/O Contrast; Complete Time: 22:21 [facility] 11/29 20:53 Order name: EKG; Complete Time: 20:54 [facility] 11/29 20:53 Order name: Cardiac monitoring; Complete Time: 21:18 [facility] 11/29 20:53 Order name: EKG - Nurse/Tech [facility] 11/29 20:53 Order name: IV Saline Lock; Complete Time: 21:18 [facility] 11/29 20:53 Order name: Labs collected and sent; Complete Time: 21:56 [facility] 11/29 20:53 Order name: O2 Per Protocol; Complete Time: 21:56 [facility] 11/29 20:53 Order name: O2 Sat Monitoring [facility] 11/29 21:11 Order name: IV Saline Lock - Large Bore; Complete Time: 21:56 me1 Administered Medications: 21:09 CANCELLED (Duplicate Order): Piperacillin-Tazobactam IVPB 3.375 grams IVPB once over 60 me1 mins; (mix in NS 100 mL) 21:52 Drug: NS 0.9% IV 500 ml Route: IV; Rate: bolus; Site: left antecubital; sg5 23:49 Follow up: IV Status: Completed infusion sg5 22:19 Drug: Pantoprazole IV 8 mg/hr Route: IV; Rate: 25 ml/hr; Site: left antecubital; sg5 22:26 Not Given (allergic reaction): metroNIDAZOLE IVPB 500 mg 100 ml IVPB at 200 ml/hr once nelly over 30 mins 22:28 Drug: Pantoprazole IVP 40 mg Route: IVP; Site: left antecubital; sg5 22:28 Drug: Pantoprazole IVP 40 mg Route: IVP; Site: left antecubital; sg5 22:28 Drug: diphenhydrAMINE IVP 25 mg Route: IVP; Site: right wrist; sg5 22:28 Drug: Famotidine IVP 20 mg Route: IVP; Site: right wrist; sg5 22:29 Drug: NS 0.9% IV 1000 ml Route: IV; Rate: 125 ml/hr; Site: right wrist; sg5 23:25 Drug: levofloxacin IVPB 500 mg Volume: 100 ml; Route: IVPB; Infused Over: 60 mins; sg5 Site: right wrist; 23:59 Drug: cloNIDine PO 0.1 mg Route: PO; sg5 Disposition Summary: 11/29/22 21:36 Transfer Ordered Transfer Location: [facility] nelly Reason: Higher level of care nelly Condition: Fair nelly Problem: new nelly Symptoms: have improved nelly Accepting Physician: [facility](11/30/22 00:35) sg5 Diagnosis - Abdominal pain, Generalized nelly - GI Bleed/ Gastrointestinal hemorrhage, unspecified - upper nelly - Dyspnea nelly - Elevated white blood cell count nelly - Tobacco abuse counseling nelly - Tobacco use nelly Forms: - Medication Reconciliation Form nelly - SBAR form nelly Signatures: Dispatcher [employer] EDMS Roderick Luna MD MD cha Galvan, Stephanie, RN RN sg5 Hilary Oneill, RN RN me1 Corrections: (The following items were deleted from the chart) 21:09 21:06 Piperacillin-Tazobactam IVPB 3.375 grams IVPB once over 60 mins; (mix in NS 100 me1 mL) ordered. me1 21:19 20:54 Abdomen Pelvis W Con+CT.RAD.BRZ ordered. EDMS EDMS 21:19 21:06 Chest For PE Angio+CT.RAD.BRZ ordered. EDNM EDMS 22:32 21:36 [facility] nelly nelly 11/30 00:35 11/29 22:32 [facility] nelly sg5 11/30 00:35 00:35 [facility] sg5 sg5
--- NOTE | 2022-11-29 21:37 | ER ---
Nurse's Notes [facility] Name: Sia Salazar Age: 77 yrs Sex: Female : 1945 Arrival Date: 11/29/2022 Time: 20:34 Bed 20 Private MD: Diagnosis: Abdominal pain, Generalized;GI Bleed/ Gastrointestinal hemorrhage, unspecified-upper;Dyspnea;Elevated white blood cell count;Tobacco abuse counseling;Tobacco use Presentation: 11/29 20:58 Chief complaint: EMS states: Patient developed lower abdomen pain, cough, and low sg5 oxygenation. RA 91%. Coronavirus screen: Vaccine status: Patient reports receiving the 2nd dose of the covid vaccine. Ebola Screen: No symptoms or risks identified at this time. Initial Sepsis Screen: Does the patient meet any 2 criteria? No. Patient's initial sepsis screen is negative. Does the patient have a suspected source of infection? No. Patient's initial sepsis screen is negative. Risk Assessment: Do you want to hurt yourself or someone else? Patient reports no desire to harm self or others. Onset of symptoms was November 29, 2022. 20:58 Method Of Arrival: EMS: [facility] sg5 20:58 Acuity: GREGG 3 sg5 Triage Assessment: 21:03 General: Appears in no apparent distress. comfortable, Behavior is calm, cooperative, sg5 appropriate for age. Pain: Complains of pain in lower abdomen. Historical: - Allergies: 21:09 Wellbutrin; sg5 21:09 Sulfa (Sulfonamide Antibiotics); sg5 21:09 Actos; sg5 21:09 Clindamycin; sg5 21:09 Bactrim; sg5 21:09 Crestor; sg5 21:09 Codeine; sg5 21:09 Erythromycin; sg5 21:09 Darvocet-N 100; sg5 21:09 Glipizide; sg5 21:09 Iodinated Contrast Media - IV Dye; sg5 21:09 Januvia; sg5 21:09 Lipitor; sg5 21:09 metformin; sg5 21:09 Morphine; sg5 21:09 Glimepiride; sg5 21:09 PENICILLINS; sg5 22:31 Metronidazole; sg5 - Home Meds: 21:03 metoprolol succinate oral 250 mg 1 tab daily [Active]; omeprazole 40 mg Oral sg5 capsule,delayed release (e.c.) 1 cap daily [Active]; Novolin R FlexPen 100 unit/mL (3 mL) subcutaneous Insulin Pen 12 units 2 times per day [Active]; magnesium oxide 400 mg (241.3 mg magnesium) Oral tablet 1 tab 2 times per day [Active]; ferrous sulfate 325 mg (65 mg iron) Oral tablet 1 tab daily [Active]; duloxetine 60 mg Oral capsule,delayed release (e.c.) 1 cap daily [Active]; - PMHx: 21:09 angiodysplasia; bowel AVMs; bronchospastic airway disease; celiac artery stenosis; sg5 Cerebrovascular disease; chronic mesenteric ischemia; chronic pulmonary embolism; Depression; Diabetes - IDDM; COPD; GERD; ibs; ischemic bowel disease; peripheral artery disease; SBO; - PSHx: 21:09 Cholecystectomy; Coronary artery bypass graft; Tonsillectomy; sg5 - Immunization history:: Adult Immunizations up to date, Flu vaccine is not up to date. - Social history:: Smoking status: Patient denies any tobacco usage or history of. - Family history:: not pertinent. Screenin/04 00:34 [facility] ED Fall Risk Assessment (Adult) History of falling in the last 3 months, sg5 including since admission No falls in past 3 months (0 pts). Abuse screen: Denies threats or abuse. Nutritional screening: No deficits noted. Tuberculosis screening: No symptoms or risk factors identified. Assessment: 11/29 21:06 General: Appears in no apparent distress. distressed, comfortable, Behavior is calm, sg5 cooperative, appropriate for age. Pain: Complains of pain in lower abdomen. Neuro: Level of Consciousness is awake, alert, obeys commands, Oriented to person, place, time, situation, Appropriate for age. Cardiovascular: Capillary refill < 3 seconds Patient's skin is warm and dry. hypertensive. Respiratory: Airway is patent Trachea midline Respiratory effort is even, unlabored, Respiratory pattern is regular, symmetrical, Ventilator assessment: low oxygenation 91 RA. EMS reports 89 RA. GI: Abdomen is round non-distended, Reports lower abdominal pain. : No signs and/or symptoms were reported regarding the genitourinary system. EENT: No signs and/or symptoms were reported regarding the EENT system. Derm: No signs and/or symptoms reported regarding the dermatologic system. Musculoskeletal: No signs and/or symptoms reported regarding the musculoskeletal system. Vital Signs: 20:58 BP 180 / 45; Pulse 73; Resp 18; Temp 98.6(O); Pulse Ox 98% on 2 lpm NC; Weight 79.38 sg5 kg; Height 5 ft. 6 in. ; Pain 5/10; 22:30 BP 178 / 76; Pulse 92; Resp 18; Pulse Ox 95% on 2 lpm NC; sg5 23:30 BP 176 / 86; Pulse 89; Resp 18; Temp 98.6(O); Pulse Ox 96% on 2 lpm NC; Pain 4/10; sg5 20:58 Body Mass Index 28.25 (79.38 kg, 167.64 cm) sg5 20:58 Pain Scale: Adult sg5 23:30 Pain Scale: Adult sg5 ED Course: 20:50 Patient arrived in ED. kl 20:51 Roderick Luna MD is Attending Physician. nelly 20:58 Celsa Montgomery RN is Primary Nurse. sg5 21:03 Triage completed. sg5 21:03 Arm band placed on right wrist. sg5 21:06 Maintain EMS IV. Dressing intact. Good blood return noted. Site clean \T\ dry. Gauge \T\ sg 5 site: 20 g left hand. 21:14 XRAY Chest (1 view) In Process Unspecified. EDMS 21:41 Dr. Luna call [facility] to start transfer. sp 21:41 First set of blood cultures drawn by me. sm8 21:53 Inserted saline lock: 22 gauge in left antecubital area, using aseptic technique. Blood sg5 collected. Maintain EMS IV. discontinued. 21:54 Inserted saline lock: 22 gauge wrist, using aseptic technique. sm8 21:56 SARS RAPID Sent. sm8 21:56 Flu Sent. sm8 21:56 Lactate w/ 2H reflex if indic. Sent. sm8 21:56 Blood Culture Adult (2) Sent. sm8 22:01 CT Chest Abdomen Pelvis W/O Contrast In Process Unspecified. EDMS 22:[address] Belia Rai accepted pt to [facility] for Transfer. sp 23:16 [id number] Pascual Schneider Admin approval to [facility]. sp 11/30 00:34 Patient has correct armband on for positive identification. Bed in low position. Call sg5 light in reach. Side rails up X2. Adult w/ patient. Valuables Left with patient. Provided Education on: need for transfer. 00:34 No provider procedures requiring assistance completed. Patient transferred, IV remains sg5 in place. Administered Medications: 11/29 21:09 CANCELLED (Duplicate Order): Piperacillin-Tazobactam IVPB 3.375 grams IVPB once over 60 me1 mins; (mix in NS 100 mL) 21:52 Drug: NS 0.9% IV 500 ml Route: IV; Rate: bolus; Site: left antecubital; sg5 23:49 Follow up: IV Status: Completed infusion sg5 22:19 Drug: Pantoprazole IV 8 mg/hr Route: IV; Rate: 25 ml/hr; Site: left antecubital; sg5 22:26 Not Given (allergic reaction): metroNIDAZOLE IVPB 500 mg 100 ml IVPB at 200 ml/hr once nelly over 30 mins 22:28 Drug: Pantoprazole IVP 40 mg Route: IVP; Site: left antecubital; sg5 22:28 Drug: Pantoprazole IVP 40 mg Route: IVP; Site: left antecubital; sg5 22:28 Drug: diphenhydrAMINE IVP 25 mg Route: IVP; Site: right wrist; sg5 22:28 Drug: Famotidine IVP 20 mg Route: IVP; Site: right wrist; sg5 22:29 Drug: NS 0.9% IV 1000 ml Route: IV; Rate: 125 ml/hr; Site: right wrist; sg5 23:25 Drug: levofloxacin IVPB 500 mg Volume: 100 ml; Route: IVPB; Infused Over: 60 mins; sg5 Site: right wrist; 23:59 Drug: cloNIDine PO 0.1 mg Route: PO; sg5 Medication: 11/30 00:35 VIS not applicable for this client. sg5 Outcome: 11/29 21:36 ER care complete, transfer ordered by . nelly 11/30 00:34 Transferred by ground EMS to [facility]. sg5 Condition: good Instructed on the need for transfer. 00:35 Patient left the ED. sg5 Signatures: Dispatcher [employer] Sonia Ruiz RN RN kl Anderson, Corey, MD MD cha Pinkerton, Shawna sp Galvan, Stephanie, RN RN sg5 Ariela Ware sm8 Hilary Oneill RN me1
[2022-11-29] MEDS ORDERED: NA CHLORIDE 0.9% 0 ML ONE (22:10)
[2022-11-29] MEDS ORDERED: Levofloxacin500mg IV 500 MG/100 ML BAG IV ONE (22:10)
[2022-11-29] MEDS ORDERED: METRONIDAZOLE 500mg IVPB 500 MG/100 ML BAG IV ONE (22:10)
--- NOTE | 2022-11-29 22:16 | RAD REPORT ---
EXAM DESCRIPTION: CTChest Abd Pelvis Wo Con - 11/29/2022 10:01 pm CLINICAL HISTORY: Abdominal distention;Cough;Dyspnea COMPARISON: Abdomen Pelvis Wo Contrast dated 10/29/2022; Abdomen Pelvis Wo Contrast dated 01/25/20 22 TECHNIQUE: CT of the chest, abdomen, and pelvis was performed. All CT scans are performed using dose optimization technique as appropriate and may include automated exposure control or mA/KV adjustment according to patient size. FINDINGS: Thorax: Chest Wall: No abnormal mass Lungs: Mild paraseptal and centrilobular emphysema. No acute process in the lungs. 6 mm subpleural no dule in the right lower lobe on image 29, series 201 is probably benign. Pleura: No effusions or pneumothorax. Gabriella/Mediastinum: No lymphadenopathy. Mild circumferential thickened distal esophagus. Aorta/Pulmonary Arteries: Aortic atherosclerosis. Heart: Normal size. Coronary artery calcifications. Abdomen/Pelvis: Liver: Low-density lesion in the inferior aspect of the right hepatic lobe measuring 16 millimeters i s noted. This is unchanged from prior. The lesion is indeterminate. It is unchanged since 01/24/2022 and likely benign . Biliary: No biliary ductal dilatation. Stomach: No significant focal abnormality. Duodenum: No significant focal abnormality. Pancreas: No significant abnormality. Spleen: No significant abnormality. Adrenal: No suspicious lesions. Kidney/ureter: No hydronephrosis. No renal calculi. Atrophic left kidney. Retroperitoneum: No retroperitoneal adenopathy. Vascular: Atherosclerosis with severe calcifications of the abdominal aorta above the renal arteries. The abdominal aorta at this levels probably occluded. A bypass graft is present. Heavily calcified c eliac trunk and SMA. Bowel: Mild wall thickening of the colon at the level of the splenic flexure.. Peritoneum: No ascites or free air. Large ventral hernia containing bowel. Bladder: Grossly unremarkable. Reproductive: No adnexal masses. Bones: No acute fracture. Spinal stimulator. Other: n/a IMPRESSION: 1. Colonic wall thickening and mild mesenteric edema at the splenic flexure likely repre senting colitis, probably ischemic colitis given the patient's advanced atherosclerosis and known his tory. 2. No acute findings in the chest.
[2022-11-29 22:20] LABS: Absolute Lymphocytes (CBC) 0.9 K/uL (0.7-4.9); Hematocrit 32.7 % (36.0-45.0); Lymphocytes % 6.6 % (15.3-44.8); MCV 91.1 fL (80-100); MPV 9.2 fL (7.6-11.3); Platelets 278 thou/uL (152-406)
[2022-11-29 22:26] LABS: ALT/SGPT 21 U/L (13-56); AST/SGOT 16 U/L (15-37); Albumin 3.2 g/dL (3.4-5.0); Alkaline Phosphatase 77 U/L (45-117); BUN Blood Urea Nitrogen 17 mg/dL (7-18); Bicarbonate 28 mEq/L (21-32); Bilirubin Total 0.2 mg/dL (0.2-1.0); Glomerular Filtration Rate 44 ml/min (=/>90); Glucose Level 156 mg/dL (74-106); Lipase 75 U/L (13-75); Magnesium 2.2 mg/dL (1.6-2.4); NT PRO-BNP 1080 pg/mL (<450); Potassium 4.1 mEq/L (3.5-5.1); Protein, Total 6.6 g/dL (6.4-8.2); Sodium Level 139 mEq/L (136-145); Troponin High Sensitivity 14.7 pg/mL (<58.9)
[2022-11-29 22:29] LABS: Bilirubin Direct < 0.1 mg/dL (0-0.2); Bilirubin Indirect, Calculated ND mg/dL (0.2-0.8)
[2022-11-29] MEDS ORDERED: DIPHENHYDRAMINE 50 MG/ML VIAL ONE (22:33)
[2022-11-29] MEDS ORDERED: FAMOTIDINE 20 MG/2 ML VIAL IV ONE (22:33)
[2022-11-29 22:37] LABS: Protime INR 0.97
[2022-11-29 22:45] LABS: SARS-CoV-2 Antigen Rapid Res Negative (Negative)
[2022-11-30] MEDS ORDERED: cloNIDine HCL 0.1 MG TAB ONE (00:01)
[2022-11-30 01:50] VITALS: TEMP 98.6
[2022-11-30 01:53] VITALS: BP 176/86; O2SAT 96
== END 2022-11-30 00:35 | disposition short-term general hospital (02) ==
LOC: ER 20:34
DX: K92.2 Gastrointestinal hemorrhage, unspecified (principal); R10.84 Generalized abdominal pain; D72.829 Elevated white blood cell count, unspecified; Z20.822 Contact with and (suspected) exposure to COVID-19; Z71.6 Tobacco abuse counseling; Z72.0 Tobacco use; Z95.1 Presence of aortocoronary bypass graft; E11.9 Type 2 diabetes mellitus without complications; Z79.4 Long term (current) use of insulin; J44.9 Chronic obstructive pulmonary disease, unspecified; Z88.0 Allergy status to penicillin; Z88.1 Allergy status to other antibiotic agents; Z88.2 Allergy status to sulfonamides; Z88.3 Allergy status to other anti-infective agents; Z88.5 Allergy status to narcotic agent; Z88.8 Allergy status to other drugs, medicaments and biological substances; Z91.041 Radiographic dye allergy status
CPT/HCPCS: 87040 ×2; 85025; 80048; 36415; 83735; 85610; 80076; 83605; 84484; 83690; 83880; 87804 ×2; 71250; 74176; 71045; 99285; 87811; J1200; C9113 ×2; J7050; J7040; J7030

== ENCOUNTER → 2023-03-18 | Emergency (ER) | payer MEDICARE ==
[~2023-03-18] MED LIST: NA CHLORIDE 0.9% 1,000 ML ONE; NS 0.9% VIAL 20 ML ONE; PANTOPRAZOLE 40 MG INJ ONE; PANTOPRAZOLE INJ 80 MG in NA CHLORIDE 0.9% 250 ML IV ONE
[2023-03-18 11:29] LABS: Absolute Lymphocytes (CBC) 0.7 K/uL (0.7-4.9); Hematocrit 23.2 % (36.0-45.0); Lymphocytes % 5.9 % (15.3-44.8); MCV 92.4 fL (80-100); Platelets 331 thou/uL (152-406); RBC Red Blood Cell Count 2.51 M/uL (3.86-4.86)
[2023-03-18 11:40] LABS: Albumin 2.8 g/dL (3.4-5.0); Bilirubin Total 0.4 mg/dL (0.2-1.0); Potassium 3.8 mEq/L (3.5-5.1); Protein, Total 6.5 g/dL (6.4-8.2)
--- NOTE | 2023-03-18 11:48 | RAD REPORT ---
EXAM DESCRIPTION: CT - Abdomen Pelvis Wo Contrast - 03/18/2023 11:23 am CLINICAL HISTORY: Abdominal pain COMPARISON: October 2022 TECHNIQUE: Computed axial tomography of the abdomen and pelvis was obtained. IV and oral contrast we re not requested. All CT scans are performed using dose optimization technique as appropriate and may include automated exposure control or mA/KV adjustment according to patient size. FINDINGS: The evaluation of solid organs, vessels and bowel is limited secondary to the lack of con trast administration. The liver, spleen, pancreas, adrenals and right kidney appear grossly normal. Small left kidney The appendix is normal. There is no evidence of diverticulitis. Calcified plaque is present within the proximal abdominal aorta which results in a near complete occl usion of the lumen. Inferior to this an aorto left femoral stent and aorto right iliac stent has been placed Diastases rectus abdominis muscles 15 centimeters with laxity of the anterior abdominal wall again de monstrated No adnexal mass. 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 This is u nchanged from prior exam Moderate amount stool within the colon
[2023-03-18 11:58] LABS: Protime INR 1.01
--- NOTE | 2023-03-18 13:02 | ER ---
Nurse's Notes [facility] Name: Sia Salazar Age: 77 yrs Sex: Female : 1945 Arrival Date: 03/18/2023 Time: 10:48 Bed 14 Private MD: Diagnosis: Anemia, unspecified;GI Bleed/ Gastrointestinal hemorrhage, unspecified Presentation: 03/18 11:02 Chief complaint: EMS states: Called to patient's home for black tarry stools. Pt had a cm10 stent placed in her bowels 2 weeks ago and has been constipated since. Pt reports using suppository X3 yesterday and having black tarry stools after. Pt reports having a history of GI Bleed. Coronavirus screen: Vaccine status: Patient reports receiving the 2nd dose of the covid vaccine. Client denies travel out of the [place] in the last 14 days. Ebola Screen: Patient denies travel to an Ebola-affected area in the 21 days before illness onset. No symptoms or risks identified at this time. Initial Sepsis Screen: Does the patient meet any 2 criteria? No. Patient's initial sepsis screen is negative. Does the patient have a suspected source of infection? No. Patient's initial sepsis screen is negative. Risk Assessment: Do you want to hurt yourself or someone else? Patient reports no desire to harm self or others. Onset of symptoms was March 18, 2023. 11:02 Method Of Arrival: EMS: [facility] cm10 11:02 Acuity: GREGG 3 cm10 Triage Assessment: 11:05 General: Appears in no apparent distress. comfortable, Behavior is calm, cooperative. cm10 Pain: Complains of pain in abdomen. Neuro: No deficits noted. Level of Consciousness is awake, alert, obeys commands, Oriented to person, place, time, situation. Cardiovascular: No deficits noted. Patient's skin is warm and dry. Respiratory: No deficits noted. Airway is patent Respiratory effort is even, unlabored, Respiratory pattern is regular, symmetrical. GI: No deficits noted. Abdomen is flat, Abd is soft and non tender X 4 quads. Reports constipation, bloody stool. : No deficits noted. No signs and/or symptoms were reported regarding the genitourinary system. Derm: No deficits noted. No signs and/or symptoms reported regarding the dermatologic system. Skin is intact, Skin is pink, warm \T\ dry. Musculoskeletal: No deficits noted. No signs and/or symptoms reported regarding the musculoskeletal system. Range of motion: intact in all extremities. Historical: - Allergies: 11:01 Actos; cm10 11:01 Bactrim; cm10 11:01 Clindamycin; cm10 11:01 Codeine; cm10 11:01 Crestor; cm10 11:01 Darvocet-N 100; cm10 11:01 Erythromycin; cm10 11:01 Glimepiride; cm10 11:01 Glipizide; cm10 11:01 Iodinated Contrast Media - IV Dye; cm10 11:01 Januvia; cm10 11:01 Lipitor; cm10 11:01 metformin; cm10 11:01 metronidazole; cm10 11:01 Morphine; cm10 11:01 PENICILLINS; cm10 11:01 Sulfa (Sulfonamide Antibiotics); cm10 11:01 Wellbutrin; cm10 - PMHx: 11:01 angiodysplasia; bowel AVMs; bronchospastic airway disease; celiac artery stenosis; cm10 Cerebrovascular disease; chronic mesenteric ischemia; chronic pulmonary embolism; COPD; Depression; Diabetes - IDDM; GERD; ibs; ischemic bowel disease; peripheral artery disease; SBO; - PSHx: 11:01 Cholecystectomy; Coronary artery bypass graft; Tonsillectomy; cm10 - Immunization history:: Adult Immunizations up to date. - Social history:: Smoking status: Patient reports the use of cigarette tobacco products, smokes one pack cigarettes per day. Screenin:20 [facility] ED Fall Risk Assessment (Adult) History of falling in the last 3 months, cm10 including since admission No falls in past 3 months (0 pts) Confusion or Disorientation No (0 pts) Intoxicated or Sedated No (0 pts) Impaired Gait Yes (1 pt) Mobility Assist Device Used Yes (1 pt) Altered Elimination No (0 pt) Score/Fall Risk Level 0 - 2 = Low Risk Oriented to surroundings, Maintained a safe environment, Hourly rounding (assess needs \T\ fall precautionary measures) done. Abuse screen: Denies threats or abuse. Denies injuries from another. Nutritional screening: No deficits noted. Tuberculosis screening: No symptoms or risk factors identified. Assessment: 14:20 Reassessment: No changes from previously documented assessment. Patient and/or family cm10 updated on plan of care and expected duration. Pain level reassessed. Patient is alert, oriented x 3, equal unlabored respirations, skin warm/dry/pink. Vital Signs: 11:02 BP 155 / 43; Pulse 88; Resp 16; Temp 98.5; Pulse Ox 98% ; Weight 63.5 kg; Height 5 ft. cm10 2 in. ; Pain 2/10; 12:40 BP 133 / 41; Pulse 76; Resp 16; Pulse Ox 94% on R/A; cm10 13:00 BP 122 / 86; Pulse 78; Resp 16; Pulse Ox 96% on R/A; cm10 14:00 BP 157 / 45; Pulse 80; Resp 16; Pulse Ox 94% on R/A; cm10 14:15 BP 161 / 48; Pulse 82; Resp 16; Pulse Ox 94% on R/A; cm10 11:02 Body Mass Index 25.61 (63.50 kg, 157.48 cm) cm10 11:02 Pain Scale: Adult cm10 ED Course: 10:52 Patient arrived in ED. cm10 10:53 Gadiel Rowland MD is Attending Physician. ec2 11:01 Sandra Moya RN is Primary Nurse. cm10 11:03 Inserted saline lock: 22 gauge in right forearm, using aseptic technique. Blood bp collected. 11:05 Triage completed. cm10 11:07 Arm band placed on Patient placed in an exam room, on a stretcher, on pulse oximetry. cm10 11:25 Abdomen In Process Unspecified. EDMS 13:02 Zelalem Dumont MD is Hospitalizing Provider. ec2 13:12 T\T\S collected, blood band applied to patient. cm10 13:12 Patient has correct armband on for positive identification. Placed in gown. Bed in low cm10 position. Call light in reach. Side rails up X2. Provided Education on: Blood Transfusion, Blood transfusion consent signed and placed in patient's chart. Dr. Rowland explained the need for blood transfusion. . 14:20 Report given to PITER Mckeon at [facility]. cm10 15:05 No provider procedures requiring assistance completed. Patient transferred, IV remains cm10 in place. Administered Medications: 11:39 Drug: NS 0.9% IV 1000 ml IV at 1 bolus Per protocol; 1000 mL bolus Route: IV; Rate: 1 cm10 bolus; Site: right forearm; 15:06 Follow up: Response: No adverse reaction; IV Status: Completed infusion; IV Intake: cm10 1000ml 11:40 Drug: Pantoprazole IVP 80 mg IVP once Route: IVP; Site: right forearm; cm10 12:45 Follow up: Response: No adverse reaction cm10 11:40 Drug: Pantoprazole IV 8 mg/hr IV at 25 ml/hr continuous; (Standard dilution is 80 mg in cm10 250 mL NS) Route: IV; Rate: 25 ml/hr; Site: right forearm; 15:06 Follow up: Response: No adverse reaction; IV Status: Infusion continued upon transfer cm10 Medication: 15:05 VIS not applicable for this client. cm10 Intake: 15:06 IV: 1000ml; Total: 1000ml. cm10 Outcome: 13:02 Decision to Hospitalize by Provider. ec2 13:19 ER care complete, transfer ordered by . ec2 15:04 Transferred by ground EMS [facility] to [facility], Transfer cm10 form completed. X-rays sent w/ patient. 15:04 Condition: stable 15:04 Instructed on the need for transfer, 15:06 Patient left the ED. cm10 Signatures: Dispatcher [employer] Jean-Claude Klein, RN RN Sandra Stark RN RN cm10 Gadiel Rowland MD MD ec2
--- NOTE | 2023-03-18 13:03 | EDPHYS ---
Physician Documentation [facility] Name: Sia Salazar Age: 77 yrs Sex: Female : 1945 Arrival Date: 03/18/2023 Time: 10:48 Bed 14 Private MD: ED Physician Gadiel Rowland HPI: 03/18 11:53 This 77 yrs old Female presents to ER via EMS with complaints of Black/Tarry ec2 Stools. 11:53 Patient arrives today for evaluation of melanic stools. 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 Patient reports no significant abdominal pain, no nausea or vomiting. Reports that she is on aspirin otherwise no blood thinners. . Historical: - Allergies: 11:01 Actos; cm10 11:01 Bactrim; cm10 11:01 Clindamycin; cm10 11:01 Codeine; cm10 11:01 Crestor; cm10 11:01 Darvocet-N 100; cm10 11:01 Erythromycin; cm10 11:01 Glimepiride; cm10 11:01 Glipizide; cm10 11:01 Iodinated Contrast Media - IV Dye; cm10 11:01 Januvia; cm10 11:01 Lipitor; cm10 11:01 metformin; cm10 11:01 metronidazole; cm10 11:01 Morphine; cm10 11:01 PENICILLINS; cm10 11:01 Sulfa (Sulfonamide Antibiotics); cm10 11:01 Wellbutrin; cm10 - PMHx: 11:01 angiodysplasia; bowel AVMs; bronchospastic airway disease; celiac artery stenosis; cm10 Cerebrovascular disease; chronic mesenteric ischemia; chronic pulmonary embolism; COPD; Depression; Diabetes - IDDM; GERD; ibs; ischemic bowel disease; peripheral artery disease; SBO; - PSHx: 11:01 Cholecystectomy; Coronary artery bypass graft; Tonsillectomy; cm10 - Immunization history:: Adult Immunizations up to date. - Social history:: Smoking status: Patient reports the use of cigarette tobacco products, smokes one pack cigarettes per day. ROS: 11:53 Constitutional: as per hpi ec2 Exam: 11:53 Constitutional: GEN: NAD Head: atraumatic Eyes: EOMI Ears: External ears are ec2 normal. CV: regular rate LUNGS: no respiratory distress ABD: non-distended, soft, nontender, no guarding, not rigid SKIN: no evidence of rashes MSK: no evidence of trauma NEURO: moves all extremities equally Vital Signs: 11:02 BP 155 / 43; Pulse 88; Resp 16; Temp 98.5; Pulse Ox 98% ; Weight 63.5 kg; Height 5 ft. cm10 2 in. ; Pain 2/10; 12:40 BP 133 / 41; Pulse 76; Resp 16; Pulse Ox 94% on R/A; cm10 13:00 BP 122 / 86; Pulse 78; Resp 16; Pulse Ox 96% on R/A; cm10 14:00 BP 157 / 45; Pulse 80; Resp 16; Pulse Ox 94% on R/A; cm10 14:15 BP 161 / 48; Pulse 82; Resp 16; Pulse Ox 94% on R/A; cm10 11:02 Body Mass Index 25.61 (63.50 kg, 157.48 cm) cm10 11:02 Pain Scale: Adult cm10 MDM: 10:54 Patient medically screened. ec2 11:53 Data reviewed: vital signs. ED course: Patient arrives today due to concern for melenic ec2 stools. Examination remarkable for reassuring abdominal examination. Will obtain lab work, CT imaging and reassess the patient. Currently considering processes such as GI bleed, anemia, intra-abdominal infection.. 11:55 ED course: EKG independently reviewed and interpreted by me, shows normal sinus rhythm, ec2 rate of 83, no acute ST segment elevations, intervals otherwise nonconcerning, PACs noted.. 12:38 ED course: CBC shows anemia with a hemoglobin of 7.7. Metabolic profile shows ec2 appropriate electrolytes, renal dysfunction with a creatinine of 1.44 and GFR 38. LFTs within appropriate ranges. Coags are unremarkable. CT abdomen pelvis shows no acute changes. . 12:43 ED course: Rectal exam performed under nurse supervision, Tamica, I did see melanic ec2 stools.. 12:44 ED course: When compared to external records, patient with hemoglobin drop from 10 to ec2 7. Will order blood transfusion.. 13:01 ED course: I discussed the case with the GI doctor on-call, will admit for anemia, GI ec2 bleed. Discussed case with hospitalist, pending admission.. 13:15 ED course: Patient did have a recent celiac artery stent as well as an SMA to hepatic ec2 bypass at [facility], will transfer given this information.. 13:28 ED course: On review of external records, patient had vascular surgery procedure with ec2 stenting of the celiac trunk as well as bypass of the SMA to hepatic artery. Performed by Dr. Cheng, vascular surgery.. 13:58 ED course: I discussed the case with the hospitalist at [facility] who agrees ec2 to accept the patient for admission. Patient and her daughter plan of care.. 03/18 11:00 Order name: CBC with Diff; Complete Time: 12:38 ec2 03/18 11:00 Order name: CMP; Complete Time: 12:38 ec2 03/18 11:00 Order name: PT-INR; Complete Time: 12:38 ec2 03/18 11:00 Order name: Ptt, Activated; Complete Time: 12:38 ec2 03/18 12:44 Order name: Type And Screen ec2 03/18 14:34 Order name: Antibody Identification EDMS 03/18 11:18 Order name: Abdomen ; Complete Time: 12:38 EDMS 03/18 11:00 Order name: EKG - Nurse/Tech; Complete Time: 11:54 ec2 03/18 11:24 Order name: Labs - recollect needed: Please recollect green and blue tops; Complete em1 Time: 11:39 03/18 12:44 Order name: Consent for Blood Transfusion; Complete Time: 13:12 ec2 Administered Medications: 11:39 Drug: NS 0.9% IV 1000 ml IV at 1 bolus Per protocol; 1000 mL bolus Route: IV; Rate: 1 cm10 bolus; Site: right forearm; 15:06 Follow up: Response: No adverse reaction; IV Status: Completed infusion; IV Intake: cm10 1000ml 11:40 Drug: Pantoprazole IVP 80 mg IVP once Route: IVP; Site: right forearm; cm10 12:45 Follow up: Response: No adverse reaction cm10 11:40 Drug: Pantoprazole IV 8 mg/hr IV at 25 ml/hr continuous; (Standard dilution is 80 mg in cm10 250 mL NS) Route: IV; Rate: 25 ml/hr; Site: right forearm; 15:06 Follow up: Response: No adverse reaction; IV Status: Infusion continued upon transfer cm10 Disposition Summary: 03/18/23 13:19 Transfer Ordered Notes: Transfer Location: [facility] ec2 Reason: Higher level of care ec2 Condition: Stable(03/18/23 13:19) ec2 Problem: an acute exacerbation(03/18/23 13:19) ec2 Symptoms: are unchanged(03/18/23 13:19) ec2 Accepting Physician: transferring doc(03/18/23 15:06) cm10 Diagnosis - Anemia, unspecified(03/18/23 13:19) ec2 - GI Bleed/ Gastrointestinal hemorrhage, unspecified(03/18/23 13:19) ec2 Forms: - Medication Reconciliation Form ec2 - SBAR form ec2 Critical care time excluding procedures: 13:40 Critical care time: Bedside Care: 30 minutes. Total time: 30 minutes ec2 Signatures: Dispatcher [employer] Lew Dan em1 Sandra Moya RN RN cm10 Gadiel Rowland MD MD ec2 Corrections: (The following items were deleted from the chart) 11:18 11:01 Abdomen Angio+CT.RAD.BRZ ordered. [facility] 11:55 11:53 Patient arrives today for evaluation of melanic stools. 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 Patient reports no significant abdominal pain, no nausea or vomiting. Reports that she is on aspirin otherwise no blood thinners.. ec2 13:18 13:02 Inpatient Admission ec2 ec2 13:18 13:02 Zelalem Dumont ec2 ec2 13:18 13:02 Telemetry/MedSurg (Inpatient) ec2 ec2 13:18 13:02 Stable ec2 ec2 13:18 13:02 an acute exacerbation ec2 ec2 13:18 13:02 are unchanged ec2 ec2 13:18 13:02 Standard ec2 ec2 13:18 13:02 ec2 ec2 13:18 13:02 GI Bleed/ Gastrointestinal hemorrhage, unspecified ec2 ec2 13:18 13:02 Anemia, unspecified ec2 ec2 : 12:45 PACKED RBC LEUKORED+[id number].LAB.BRZ ordered. EDMS EDMS 12:48 ABO/RH typing ordered. EDMS EDMS 12:48 Antibody Screen ordered. EDMS EDMS : 12:44 IV Saline Lock ordered. ec2 cm10 15: 13:19 transferring doc ec2 cm10
[2023-03-18 16:10] VITALS: TEMP 98.5
[2023-03-18 16:20] VITALS: O2SAT 94
[2023-03-18 16:25] VITALS: BP 161/48
--- NOTE | 2023-03-19 15:09 | EKG ---
Test Date: 2023-03-18 Test Time: 11:50:33 [employer] Leaf Printer: JAYCEE MEASUREMENT RESULTS: Intervals: Rate: 83 FL: 204 QRSD: 88 QT: 412 QTc: 484 [place]: P: 14 FL: 204 QRS: -44 T: 65 INTERPRETIVE STATEMENTS: Sinus rhythm with premature atrial complexes Left axis deviation Anteroseptal infarct, age undetermined Abnormal ECG Compared to ECG 10/29/2022 22:59:48 Atrial premature complex(es) now present Left-axis deviation now present Myocardial infarct finding still present Electronically Signed On 03-19-23 15:07:38 DEPARTMENT MANAGER by Beltran Patel
== END ==
LOC: ER 10:48
DX: D64.9 Anemia, unspecified (principal); E11.9 Type 2 diabetes mellitus without complications; J44.9 Chronic obstructive pulmonary disease, unspecified; F32.A Depression, unspecified; F17.210 Nicotine dependence, cigarettes, uncomplicated; Z95.1 Presence of aortocoronary bypass graft; Z88.0 Allergy status to penicillin; Z88.1 Allergy status to other antibiotic agents; Z88.2 Allergy status to sulfonamides; Z88.3 Allergy status to other anti-infective agents; Z88.5 Allergy status to narcotic agent; Z88.8 Allergy status to other drugs, medicaments and biological substances; Z91.041 Radiographic dye allergy status; Z86.711 Personal history of pulmonary embolism
CPT/HCPCS: 96365; 93005; 85025; 36415; 86900; 86850; 85610; 86870; 86901; 85730; 80053; 74176; 99285; 96366; A4216; C9113 ×2; J7050; J7030

== ENCOUNTER 2023-06-25 01:36 | Inpatient (IN) | payer MEDICARE ==
[2023-06-25 02:20] LABS: Arterial Blood Carboxyhemoglob 4.5 % (0-1.5); Blood Gas Oxyhemoglobin 85.8 % (94-97); Blood O2 Saturation 91.9 % (92-98.5)
[2023-06-25 02:22] LABS: Blood Gas THB 8.7 g/dl (12-18)
[2023-06-25] MEDS ORDERED: IPRATROPIUM BROM 0.5MG/2.5ML ONE (02:32)
[2023-06-25] MEDS ORDERED: ALBUTEROL 2.5 MG/3 ML NEB SOL ONE (02:32)
[2023-06-25] MEDS ORDERED: METHYLPREDNISOLONE 125 MG INJ ONE (02:32)
[2023-06-25 02:48] LABS: Absolute Eosinophils 0.2 K/uL (0-0.5); Absolute Lymphocytes (CBC) 0.9 K/uL (0.7-4.9); Absolute Monocytes 0.9 K/uL (0.1-1.3); Absolute Neutrophil 8.7 K/uL (1.8-8.0); Basophils % 0.3 % (0-1.3); Eosinophils % 1.8 % (0-4.4); Hematocrit 26.9 % (36.0-45.0); Hemoglobin 8.3 g/dL (12.0-15.0); Lymphocytes % 8.5 % (15.3-44.8); MCH 27.9 pg (27.0-35.0); MCHC 30.8 g/dL (32.0-36.0); MCV 90.7 fL (80-100); MPV 9.6 fL (7.6-11.3); Monocytes % 8.1 % (3.3-12.3); Neutrophils % 81.3 % (41.7-73.7); Platelets 300 thou/uL (152-406); RBC Red Blood Cell Count 2.97 M/uL (3.86-4.86)
[2023-06-25 02:56] LABS: PT Prothrombin Time 11.8 SECONDS (9.5-12.5); PTT, Activated Partial Thromb 24.5 SECONDS (24.3-36.9); Protime INR 1.07
[2023-06-25 03:12] LABS: ALT/SGPT 19 U/L (13-56); AST/SGOT 21 U/L (15-37); Albumin 2.6 g/dL (3.4-5.0); Albumin/Globulin Ratio 0.9 (1.1-1.8); Alkaline Phosphatase 75 U/L (45-117); Anion Gap 7.6 mEq/L (5.0-15.0); BUN Blood Urea Nitrogen 18 mg/dL (7-18); Bicarbonate 28 mEq/L (21-32); Bilirubin Total 0.3 mg/dL (0.2-1.0); Creatine Phosphokinase 39 U/L (26-192); Glomerular Filtration Rate 50 ml/min (=/>90); Glucose Level 199 mg/dL (74-106); Lipase 40 U/L (13-75); NT PRO-BNP 16627 pg/mL (<450); Potassium 3.6 mEq/L (3.5-5.1); Protein, Total 5.6 g/dL (6.4-8.2); Sodium Level 138 mEq/L (136-145)
[2023-06-25 03:22] LABS: Bilirubin Direct < 0.1 mg/dL (0-0.2)
[2023-06-25 03:23] LABS: Bilirubin Indirect, Calculated ND mg/dL (0.2-0.8)
[2023-06-25 03:24] LABS: Troponin High Sensitivity 104.8 pg/mL (<58.9)
[2023-06-25 03:46] LABS: SARS-CoV-2 Antigen CONTROL BLUE LINE VIS/BG OK; SARS-CoV-2 Antigen Rapid Res Negative (Negative)
--- NOTE | 2023-06-25 05:19 | EDPHYS ---
Physician Documentation [facility] Name: Sia Salazar Age: 77 yrs Sex: Female : 1945 Arrival Date: 06/25/2023 Time: 01:36 Bed 8 Private MD: ED Physician Harjeet Nye HPI: 06/24 01:45 This 77 yrs old Female presents to ER via EMS with complaints of Shortness Of sp4 Breath. 06:40 This is a very pleasant 77-year-old female with history of diabetes mellitus type 2, sp4 GERD, PAD, COPD and nicotine dependence also dizziness and vertigo who presents with EMS with acute onset of dyspnea shortness of breath and cough. Patient denied chest pain. Patient reportedly has multiple allergies.. Historical: - Allergies: 01:39 Actos; rv 01:39 Bactrim; rv 01:39 Clindamycin; rv 01:39 Codeine; rv 01:39 Crestor; rv 01:39 Darvocet-N 100; rv 01:39 Erythromycin; rv 01:39 Glimepiride; rv 01:39 Glipizide; rv 01:39 Iodinated Contrast Media - IV Dye; rv 01:39 Januvia; rv 01:39 Lipitor; rv 01:39 metformin; rv 01:39 metronidazole; rv 01:39 Morphine; rv 01:39 PENICILLINS; rv 01:39 Sulfa (Sulfonamide Antibiotics); rv 01:39 Wellbutrin; rv - PMHx: 01:39 angiodysplasia; bowel AVMs; SBO; COPD; GERD; Diabetes - IDDM; Depression; chronic rv mesenteric ischemia; chronic pulmonary embolism; Cerebrovascular disease; celiac artery stenosis; bronchospastic airway disease; ibs; ischemic bowel disease; peripheral artery disease; - PSHx: 01:39 Cholecystectomy; Coronary artery bypass graft; Tonsillectomy; rv - Immunization history:: Adult Immunizations up to date. - Social history:: Smoking status: Patient denies any tobacco usage or history of. - Family history:: not pertinent. ROS: 06:40 Constitutional: Negative for fever, chills, and weight loss, positive dyspnea positive sp4 cough positive generalized weakness 06:40 All other systems are negative, Exam: 05:13 ECG was reviewed by the Attending Physician. EKG reveals sinus rhythm with rate of 93. sp4 EKG time 004 8 06:40 Constitutional: This is a well developed, well nourished patient who is awake, alert, sp4 and in mild to moderate respiratory distress Head/Face: Normocephalic, atraumatic. Eyes: Pupils equal round and reactive to light, extra-ocular motions intact. Lids and lashes normal. Conjunctiva and sclera are not injected. Cornea within normal limits. Periorbital areas with no swelling, redness, or edema. ENT: Nares patent. No nasal discharge, no septal abnormalities noted. Tympanic membranes are normal and external auditory canals are clear. Oropharynx with no redness, swelling, or masses, exudates, or evidence of obstruction, uvula midline. Mucous membranes moist. Neck: Trachea midline, no thyromegaly or masses palpated, and no cervical lymphadenopathy. Supple, full range of motion without nuchal rigidity, or vertebral point tenderness. Chest/axilla: Normal chest wall appearance and motion. Nontender with no deformity. No lesions are appreciated. Cardiovascular: Regular rate and rhythm with a normal S1 and S2. No gallops, murmurs, or rubs. Normal PMI, no JVD. No pulse deficits. Respiratory: Lungs have equal breath sounds bilaterally, bilateral wheezes to auscultation also dyspnea and tachypnea Abdomen/GI: Soft, with normal bowel sounds. No distension or tympany. No guarding or rebound. No evidence of tenderness throughout. Back: No spinal tenderness. No costovertebral tenderness. Skin: Warm, dry with normal turgor. Normal color with no rashes, no lesions, and no evidence of cellulitis. MS/ Extremity: Pulses equal, no cyanosis. Neurovascular intact. Full, normal range of motion. Neuro: Awake and alert, GCS 15, oriented to person, place, time, and situation. Cranial nerves II-XII grossly intact. Motor strength 5/5 in all extremities. Sensory grossly intact. Psych: Awake, alert, with orientation to person, place and time. Behavior, mood, and affect are within normal limits Vital Signs: 01:37 BP 167 / 54; Pulse 94; Resp 20; Temp 99; Pulse Ox 100% on Nebulizer Mask; rv 01:37 Weight 58.97 kg; Height 5 ft. 2 in. ; rv 02:30 BP 153 / 70; Pulse 84; Resp 22; Pulse Ox 94% on R/A; yb 03:23 BP 169 / 49; Pulse 90; Resp 20 S; Pulse Ox 100% on 7 lpm Nebulizer Mask; ha1 01:37 Body Mass Index 23.78 (58.97 kg, 157.48 cm) rv [place] Coma Score: 05:13 Eye Response: spontaneous(4). Motor Response: obeys commands(6). Verbal Response: sp4 oriented(5). Total: 15. MDM: 01:46 Patient medically screened. sp4 05:22 ED course: EXAM DESCRIPTION: Abdomen Pelvis W Contrast CLINICAL HISTORY: ABD PAIN sp4 COMPARISON: None Available TECHNIQUE: Contiguous axial images of the abdomen and pelvis were obtained after the administration of intravenous contrast followed by reconstruction images.This exam was performed according to our departmental dose-optimization program, which includes automated exposure control, adjustment of the mA and/or kV according to patient size and/or use of iterative reconstruction technique. FINDINGS: Small mesenteric lymph nodes at the pericecal level is a nonspecific finding. There is no pelvic mass visualized. The liver, spleen, pancreas and kidneys are within normal limits. There is no hydronephrosis or renal stones. The gallbladder is unremarkable by CT criteria. Adrenal glands are within normal limits. Aorta is of normal caliber and tapering. There is no free fluid in the abdomen or pelvis. There is no bowel obstruction. There is no stranding of the mesenteric fat to suggest an inflammatory response. The appendix is within normal limits. There is no pericecal inflammation. IMPRESSION: No acute intra-abdominal abnormality.. 06:42 Differential diagnosis: Anemia Anxiety Reaction asthma, Bronchitis CHF exacerbation, sp4 Chronic Obstructive Pulmonary Disease Myocardial Infarction. Antibiotic administration: Not indicated. Data reviewed: vital signs, nurses notes, EMS record, old medical records, lab test result(s), EKG, radiologic studies, plain films. 06/24 01:45 Order name: BMP; Complete Time: 05:11 4 06/24 01:45 Order name: Blood Culture Adult (2) sp4 06/24 01:45 Order name: CBC with Diff; Complete Time: 05:11 sp4 06/24 01:45 Order name: CPK; Complete Time: 05:11 sp4 06/24 01:45 Order name: Hepatic Function; Complete Time: 05:11 4 06/24 01:45 Order name: Lipase; Complete Time: 05:11 06/24 01:45 Order name: Magnesium; Complete Time: 05:11 06/24 01:45 Order name: NT PRO-BNP; Complete Time: 05:11 06/24 01:45 Order name: PT-INR; Complete Time: 05:11 06/24 01:45 Order name: Ptt, Activated; Complete Time: 05:11 06/24 01:45 Order name: Troponin HS; Complete Time: 05:11 06/24 01:45 Order name: ABG; Complete Time: 05:11 06/24 02:59 Order name: SARS RAPID; Complete Time: 05:11 06/24 02:59 Order name: Influenza Screen (a \T\ B); Complete Time: 05:11 06/24 05:33 Order name: NT PRO-BNP EDMS 06/24 05:33 Order name: Thyroid Stimulating Hormone EDMS 06/24 05:33 Order name: Urinalysis w/ reflexes EDMS 06/24 05:33 Order name: CBC with Automated Diff EDMS 06/24 05:33 Order name: CBC with Automated Diff EDMS 06/24 05:33 Order name: CBC with Automated Diff EDMS 06/24 05:33 Order name: CBC with Automated Diff EDMS 06/24 05:33 Order name: Comprehensive Metabolic Panel EDMS 06/24 05:33 Order name: Comprehensive Metabolic Panel EDMS 06/24 05:33 Order name: Comprehensive Metabolic Panel EDMS 06/24 05:33 Order name: Comprehensive Metabolic Panel EDMS 06/24 05:33 Order name: Magnesium EDMS 06/24 05:33 Order name: Magnesium EDMS 06/24 05:33 Order name: Magnesium EDMS 06/24 05:33 Order name: Magnesium EDMS 06/24 05:33 Order name: Troponin High Sensitivity EDMS 06/24 05:33 Order name: Troponin High Sensitivity; Complete Time: 06:43 EDMS 06/24 05:33 Order name: Troponin High Sensitivity EDMS 06/24 07:55 Order name: Glucose, Ancillary Testing EDMS 06/24 11:14 Order name: Type and Screen EDMS 06/24 11:17 Order name: Sendout Antibody ID EDMS 06/24 11:33 Order name: Glucose, Ancillary Testing EDMS 06/24 04:43 Order name: Chest Single View XRAY rv 06/24 12:27 Order name: RAD EDIN 06/24 01:45 Order name: EKG; Complete Time: 01:46 sp4 06/24 05:33 Order name: CONS Physician Consult EDIN 06/24 01:45 Order name: Cardiac monitoring; Complete Time: 02:38 sp4 06/24 01:45 Order name: EKG - Nurse/Tech; Complete Time: 02:38 sp4 06/24 01:45 Order name: IV Saline Lock; Complete Time: 02:38 sp4 06/24 01:45 Order name: Labs collected and sent; Complete Time: 02:38 sp4 06/24 01:45 Order name: O2 Per Protocol; Complete Time: 02:38 sp4 06/24 01:45 Order name: O2 Sat Monitoring; Complete Time: 02:38 EC:13 Rate is 93 beats/min. Rhythm is regular, Sinus Rhythm with PACs. QRS [place] is Normal. PA sp4 interval is normal. QRS interval is normal. QT interval is normal. No Q waves. T waves are Normal. No ST changes noted. Clinical impression: No evidence of ischemia. Interpreted by me. Reviewed by me. Administered Medications: 02:37 Drug: Albuterol Inhalation 2.5 mg Inhalation every 20 minutes x3 Route: Inhalation; rv 02:38 Drug: Ipratropium Inhalation Aerosol 0.5 mg Inhalation once; Every 20 min for a total rv of 3 treatments x3 Route: Inhalation; 02:38 Drug: MethylPrednisoLONE IVP 125 mg IVP once Route: IVP; Site: right upper arm; rv 05:51 Follow up: Response: No adverse reaction; Marked relief of symptoms rv 03:16 Drug: Ipratropium Inhalation Aerosol 0.5 mg Inhalation once; Every 20 min for a total rv of 3 treatments x3 Route: Inhalation; 03:17 Drug: Albuterol Inhalation 2.5 mg Inhalation every 20 minutes x3 Route: Inhalation; rv 05:51 Follow up: Response: No adverse reaction; Marked relief of symptoms rv 03:17 Drug: Albuterol Inhalation 2.5 mg Inhalation every 20 minutes x3 Route: Inhalation; rv 03:17 Drug: Ipratropium Inhalation Aerosol 0.5 mg Inhalation once; Every 20 min for a total rv of 3 treatments x3 Route: Inhalation; 05:51 Follow up: Response: No adverse reaction; Marked relief of symptoms rv 05:45 Drug: Furosemide IVP 40 mg IVP once; give over 2 minutes Route: IVP; Site: right upper yb arm; 05:51 Follow up: Response: Medication administered at discharge. rv Disposition Summary: 06/25/23 05:18 Hospitalization Ordered Notes: Hospitalization Status: Inpatient Admission sp4 Provider: Armani Church sp4 Condition: Stable sp4 Problem: new sp4 Symptoms: have improved sp4 Bed/Room Type: Standard sp4 Location: Intensive Care Unit(06/25/23 12:32) ja1 Room Assignment: 3-(06/25/23 13:40) eb Diagnosis - Acute diastolic (congestive) heart failure sp4 - Subsequent non-ST elevation (NSTEMI) myocardial infarction sp4 - COPD with acute exacerbation, new onset diastolic heart failure with elevated sp4 troponin Forms: - Medication Reconciliation Form sp4 - SBAR form sp4 - Leadership Thank You Letter sp4 Signatures: Dispatcher [employer] EDTj Cisneros RN RN ja1 Elsa Guerrero Ronaldo RN RN rv Terrie Chu1 Harjeet Nye MD MD sp4 Cora Marte RN RN yb Corrections: (The following items were deleted from the chart) 05:36 05:18 Telemetry/MedSurg (Inpatient) sp4 rv1 05:36 05:18 sp4 rv1 12:32 05:36 [facility] ER HOLD rv1 ja1 12:32 05:36 ERHOLD- rv1 ja1 13:40 12:32 1- ja1 eb
--- NOTE | 2023-06-25 05:19 | ER ---
Nurse's Notes [facility] Name: Sia Salazar Age: 77 yrs Sex: Female : 1945 Arrival Date: 06/25/2023 Time: 01:36 Bed 8 Private MD: Diagnosis: Acute diastolic (congestive) heart failure;Subsequent non-ST elevation (NSTEMI) myocardial infarction;COPD with acute exacerbation, new onset diastolic heart failure with elevated troponin Presentation: 06/24 01:37 Chief complaint: EMS states: sudden onset of SOB. with hx of COPD. oxygen sat at 92-93% rv on room air. denies pain. expressed anxiety. administered albuterol and Atrovent via nebulizer. Coronavirus screen: Client presents with at least one sign or symptom that may indicate coronavirus-19. Standard/surgical mask placed on the client. Provider contacted for isolation considerations. Ebola Screen: No symptoms or risks identified at this time. Initial Sepsis Screen: Does the patient meet any 2 criteria? No. Patient's initial sepsis screen is negative. Does the patient have a suspected source of infection? No. Patient's initial sepsis screen is negative. Risk Assessment: Do you want to hurt yourself or someone else? Patient reports no desire to harm self or others. Onset of symptoms was June 25, 2023. 01:37 Method Of Arrival: EMS: [facility] rv 01:37 Acuity: GREGG 2 rv Triage Assessment: 01:39 General: Appears uncomfortable, Behavior is anxious. Pain: Denies pain. Neuro: Level of rv Consciousness is awake, alert, obeys commands, Oriented to person, place, time, situation. Cardiovascular: Capillary refill < 3 seconds Patient's skin is warm and dry. Respiratory: Airway is patent Respiratory effort is even, Breath sounds are clear bilaterally. GI: No signs and/or symptoms were reported involving the gastrointestinal system. : No signs and/or symptoms were reported regarding the genitourinary system. Derm: Skin is intact. Historical: - Allergies: 01:39 Actos; rv 01:39 Bactrim; rv 01:39 Clindamycin; rv 01:39 Codeine; rv 01:39 Crestor; rv 01:39 Darvocet-N 100; rv 01:39 Erythromycin; rv 01:39 Glimepiride; rv 01:39 Glipizide; rv 01:39 Iodinated Contrast Media - IV Dye; rv 01:39 Januvia; rv 01:39 Lipitor; rv 01:39 metformin; rv 01:39 metronidazole; rv 01:39 Morphine; rv 01:39 PENICILLINS; rv 01:39 Sulfa (Sulfonamide Antibiotics); rv 01:39 Wellbutrin; rv - PMHx: 01:39 angiodysplasia; bowel AVMs; SBO; COPD; GERD; Diabetes - IDDM; Depression; chronic rv mesenteric ischemia; chronic pulmonary embolism; Cerebrovascular disease; celiac artery stenosis; bronchospastic airway disease; ibs; ischemic bowel disease; peripheral artery disease; - PSHx: 01:39 Cholecystectomy; Coronary artery bypass graft; Tonsillectomy; rv - Immunization history:: Adult Immunizations up to date. - Social history:: Smoking status: Patient denies any tobacco usage or history of. - Family history:: not pertinent. Screenin:41 [facility] ED Fall Risk Assessment (Adult) History of falling in the last 3 months, rv including since admission No falls in past 3 months (0 pts) Altered Elimination Score/Fall Risk Level 0 - 2 = Low Risk Oriented to surroundings, Maintained a safe environment, Educated pt \T\ family on fall prevention, incl call for assistance when getting out of bed, Assessed \T\ reinforced patient's understanding of fall precautions. Abuse screen: Denies threats or abuse. Denies injuries from another. Nutritional screening: No deficits noted. Tuberculosis screening: No symptoms or risk factors identified. Assessment: 02:30 Reassessment: Patient and/or family updated on plan of care and expected duration. Pain ha1 level reassessed. Patient is alert, oriented x 3, equal unlabored respirations, skin warm/dry/pink. 03:20 Reassessment: Patient and/or family updated on plan of care and expected duration. Pain ha1 level reassessed. Patient is alert, oriented x 3, equal unlabored respirations, skin warm/dry/pink. Patient states feeling better. Patient states symptoms have improved. 05:46 Reassessment: Hospitalist at bedside. yb Vital Signs: 01:37 BP 167 / 54; Pulse 94; Resp 20; Temp 99; Pulse Ox 100% on Nebulizer Mask; rv 01:37 Weight 58.97 kg; Height 5 ft. 2 in. ; rv 02:30 BP 153 / 70; Pulse 84; Resp 22; Pulse Ox 94% on R/A; yb 03:23 BP 169 / 49; Pulse 90; Resp 20 S; Pulse Ox 100% on 7 lpm Nebulizer Mask; ha1 01:37 Body Mass Index 23.78 (58.97 kg, 157.48 cm) rv [place] Coma Score: 05:13 Eye Response: spontaneous(4). Motor Response: obeys commands(6). Verbal Response: sp4 oriented(5). Total: 15. ED Course: 01:36 Patient arrived in ED. rv 01:39 Triage completed. rv 01:39 Arm band placed on right wrist. rv 01:41 Patient has correct armband on for positive identification. Client placed on continuous rv cardiac and pulse oximetry monitoring. NIBP monitoring applied. clinical research monitor on. 01:41 No provider procedures requiring assistance completed. rv 01:45 Harjeet Nye MD is Attending Physician. sp4 02:00 First set of blood cultures drawn by me. rv 02:25 Inserted saline lock: 20 gauge in right upper arm, using aseptic technique. Blood rv collected. 02:25 Second set of blood cultures drawn by me. rv 02:38 BMP Sent. rv 02:38 Blood Culture Adult (2) Sent. rv 02:38 CBC with Diff Sent. rv 02:38 CPK Sent. rv 02:38 Hepatic Function Sent. rv 02:38 Lipase Sent. rv 02:38 Magnesium Sent. rv 02:38 NT PRO-BNP Sent. rv 02:38 PT-INR Sent. rv 02:38 Ptt, Activated Sent. rv 02:38 Troponin HS Sent. rv 05:18 Armani Church is Hospitalizing Provider. sp4 05:50 Patient admitted, IV remains in place. rv 08:25 Jean-Claude Red, RN is Primary Nurse. bp Administered Medications: 02:37 Drug: Albuterol Inhalation 2.5 mg Inhalation every 20 minutes x3 Route: Inhalation; rv 02:38 Drug: Ipratropium Inhalation Aerosol 0.5 mg Inhalation once; Every 20 min for a total rv of 3 treatments x3 Route: Inhalation; 02:38 Drug: MethylPrednisoLONE IVP 125 mg IVP once Route: IVP; Site: right upper arm; rv 05:51 Follow up: Response: No adverse reaction; Marked relief of symptoms rv 03:16 Drug: Ipratropium Inhalation Aerosol 0.5 mg Inhalation once; Every 20 min for a total rv of 3 treatments x3 Route: Inhalation; 03:17 Drug: Albuterol Inhalation 2.5 mg Inhalation every 20 minutes x3 Route: Inhalation; rv 05:51 Follow up: Response: No adverse reaction; Marked relief of symptoms rv 03:17 Drug: Albuterol Inhalation 2.5 mg Inhalation every 20 minutes x3 Route: Inhalation; rv 03:17 Drug: Ipratropium Inhalation Aerosol 0.5 mg Inhalation once; Every 20 min for a total rv of 3 treatments x3 Route: Inhalation; 05:51 Follow up: Response: No adverse reaction; Marked relief of symptoms rv 05:45 Drug: Furosemide IVP 40 mg IVP once; give over 2 minutes Route: IVP; Site: right upper yb arm; 05:51 Follow up: Response: Medication administered at discharge. rv Medication: 01:41 VIS not applicable for this client. rv Outcome: 05:18 Decision to Hospitalize by Provider. sp4 05:50 Admitted to ER Hold. Please see [facility] for further documentation. rv 05:50 Condition: good 05:50 Instructed on the need for admit, 14:02 Patient left the ED. bp Signatures: Jean-Claude Red RN RN bp Neto Wood RN RN rv Joceline Garnica RN RN Harjeet Montejo MD MD sp4 Cora Marte RN RN yb
[2023-06-25] MEDS ORDERED: FUROSEMIDE 40 MG/4 ML VIAL ONE ×2 (05:29→10:07)
[2023-06-25 06:02] VITALS: BMI 23.8
--- NOTE | 2023-06-25 06:06 | P.HP ---
Certification for Inpatient Patient admitted to: Inpatient With expected LOS: >2 Midnights <Jeanine Crawford - Last Filed: 06/25/23 13:09> Patient History Date of Service: 06/25/23 Reason for admission: new onset CHF, COPD exacerbation with hypoxia History of Present Illness: Ms Salazar is a 77-year-old female with a past medical history of angiodysplasia of bowel syndrome, COPD, GERD, insulin-dependent diabetes, cerebrovascular disease, and peripheral artery disease. She sees Dr. Royal for the angiodysplasia with chronic anemia. Until a few months ago she got frequent blood transfusions but then was started on octreotide injections. She has no history of CHF, but presented to the emergency room last evening with significant dyspnea, which she assumed was an exacerbation of COPD. On ABG a ssessment in the ED, her blood gases showed a pH of 7.4, pCO2 44.2, pO2 63.9, bicarb 26.7, methemoglobin 2.1, hemoglobin 8.7. On laboratory evaluation her white count is 10.7, H&H 8.3 and 26.9, with platelet count of 300. Her chemistries are unremarkable except for a creatinine of 1.4, GFR 50, and a glucose of 190. Of note her BNP is 16,627. Albumin 2.6, and a troponin of 104.8. She denies chest pain, her EKG showed sinus rhythm with PACs, and her CXR shows bilateral haziness. She was given 40 mg of Lasix IV push in the emergency department. On my evaluation she was a bit somnolent with O2 at 3 L via nasal cannula. We will repeat the ABG on room air, have ordered 2 units PRBCs to hold, as we will have to hold octreotide for now as it may have induced the current congestive heart failure. We will admit her for further investigation and treatment. Home medications list reviewed: Yes - Past Medical/Surgical History Has patient received pneumonia vaccine in the past: No Diabetic: Yes -: SBO -: AVM -: angiodysplasia -: ischemic bowel disease -: celiac artherial stenosis -: IBS -: IDDM -: COPD -: PAD -: Chronic mesenteric ischemia -: GERD -: Esophageal pulmonary emboli -: Abdominal/Stomach surgery -: tonsillectomy -: cholecystectomy Psychosocial/ Personal History: Lives with her Daughter in one story home. Has a w/c, walker, cane. Does not have home O2. - Family History Family History: Reviewed- Non-Contributory - Social History Smoking Status: Current every day smoker Smoking therapy provided: No Patient receptive to therapy: No Alcohol use: No CD- Drugs: No Caffeine use: No Place of Residence: Home <Jeanine Crawford - Last Filed: 06/25/23 13:09> Date of Service: 06/25/23 <linda lopez - Last Filed: 06/25/23 17:28> Allergies atorvastatin [From Lipitor] Allergy (Verified 01/04/22 23:16) Unknown codeine Allergy (Verified 01/04/22 23:16) Unknown glimepiride Allergy (Verified 01/04/22 23:16) Unknown glipizide Allergy (Verified 01/04/22 23:16) Unknown Iodinated Contrast Media [Iodinated Contrast Media - Oral and] Allergy (Verified 01/04/22 23:16) Unknown Penicillins Allergy (Verified 01/04/22 23:16) Unknown pioglitazone [From Actos] Allergy (Verified 01/04/22 23:16) Unknown rosuvastatin [From Crestor] Allergy (Verified 01/04/22 23:16) Unknown sitagliptin [From Januvia] Allergy (Verified 01/04/22 23:16) Unknown Sulfa (Sulfonamide Antibiotics) Allergy (Verified 01/04/22 23:16) Unknown sulfamethoxazole [From Bactrim] Allergy (Verified 01/04/22 23:16) Unknown trimethoprim [From Bactrim] Allergy (Verified 01/04/22 23:16) Unknown Clindamycin Allergy (Uncoded 12/12/21 08:04) Unknown Darvocet-N Allergy (Uncoded 12/12/21 08:04) Unknown eryt Allergy (Uncoded 12/12/21 08:04) Unknown metformin Allergy (Uncoded 12/12/21 08:04) Unknown morphine Allergy (Uncoded 12/12/21 08:04) Unknown Wellbutr Allergy (Uncoded 12/12/21 08:04) Unknown Home Medications: Duloxetine [Cymbalta *] 60 mg PO DAILY 01/05/22 Insulin 70/30 NPH/Reg Human [Novolin 70/30*] 12 unit SQ BID 01/05/22 Ferrous Sulfate 325 mg PO DAILY 06/03/22 Magnesium Oxide 400 mg PO DAILY 06/03/22 Omeprazole [Prilosec] 40 mg PO DAILY 06/03/22 Folic Acid 1 mg PO DAILY #30 tab 06/04/22 Metoprolol Succinate [Toprol Xl*] 50 mg PO [id number] #30 tab 06/04/22 Pantoprazole [Protonix Tab*] 40 mg PO DAILY #30 tab 06/04/22 Review of Systems 10-point ROS is otherwise unremarkable General: Weakness, Malaise Respiratory: Cough, Shortness of Breath, SOB with Excertion, As per HPI Cardiovascular: Other (denies) Gastrointestinal: As per HPI Neurological: Weakness <Jeanine Crawford - Last Filed: 06/25/23 13:09> Physical Examination - Physical Exam General: Oriented x3, Cooperative, Other (lethargic, pt on 3L O2 in ED. Will get RA ABG to assess hypoxia/hypercapnea) HEENT: Atraumatic, Normocephalic Neck: Supple Respiratory: Diminished, Crackles/rales Cardiovascular: Normal pulses, Irregular heart rate/rhythm Capillary refill: <2 Seconds Gastrointestinal: Soft and benign Musculoskeletal: No clubbing, Other (arthritis) Integumentary: Other (ecchymosis and hemangiomas) Neurological: Normal speech Lymphatics: No axilla or inguinal lymphadenopathy Urinary: Other (pure wick) External genitalia: Deferred Rectal: Deferred - Studies Laboratory Data (last 24 hrs) 06/25/23 06/25/23 06/25/23 02:25 02:25 02:25 WBC 10.70 Hgb 8.3 L Hct 26.9 L Plt Count 300 PT 11.8 INR 1.07 APTT 24.5 Sodium 138 Potassium 3.6 BUN 18 Creatinine 1.14 H Glucose 199 H Magnesium 2.0 Total Bilirubin 0.3 AST 21 ALT 19 Alkaline Phosphatase 75 Lipase 40 Microbiology Data (last 24 hrs): 06/25/23 03:10 Nasopharnyx Influenza Type A Antigen Screen - Final 06/25/23 03:10 Nasopharnyx Influenza Type B Antigen Screen - Final <Jeanine Crawford Abisai - Last Filed: 06/25/23 13:09> - Studies Laboratory Data (last 24 hrs) 06/25/23 06/25/23 06/25/23 02:25 02:25 02:25 WBC 10.70 Hgb 8.3 L Hct 26.9 L Plt Count 300 PT 11.8 INR 1.07 APTT 24.5 Sodium 138 Potassium 3.6 BUN 18 Creatinine 1.14 H Glucose 199 H Magnesium 2.0 Total Bilirubin 0.3 AST 21 ALT 19 Alkaline Phosphatase 75 Lipase 40 Microbiology Data (last 24 hrs): 06/25/23 03:10 Nasopharnyx Influenza Type A Antigen Screen - Final 06/25/23 03:10 Nasopharnyx Influenza Type B Antigen Screen - Final <linda lopez - Last Filed: 06/25/23 17:28> Assessment and Plan - Plan Congestive heart failure: Echo (last ECHO 2020 at [facility] EF 65%) Lasix 40mg IV q 8h Cardiology consult Angiodysplagia of bowel with chronic anemia: Dr. Royal consult Hold octreotide for now T&S, 2u PRBC to hold, give one when available and reassess COPD exacerbation: ABG on RA to assess need for O2 at home Nebs q4h will consider steroids with consultation Consult Dr. Lino Anemia: T&S, 2u PRBC to hold, give one when available and reassess Protonix 40mg IV q 12h Hypoabuminemia: Blood transfusion monitor and reassess Code status: DNR - Advance Directives Does patient have a Living Will: No Does patient have a Durable POA for Healthcare: No <Jeanine Crawford Abisai - Last Filed: 06/25/23 13:09> - Plan Patient seen and examined. Plan of care discussed with Ms. Crawford. Acute on chronic diastolic heart failure History of GI bleed due to AVM Patient follows with Dr. Royal and she is on daily octreotide injections. Patient with dyspnea, and symptomatic. IV Lasix Bronchodilators for COPD exacerbation. Patient noted to have blood autoantibody. Continue to monitor H&H and transfuse if hemoglobin drops below 8. IV Protonix Pulmonary and cardiology input appreciated. <linda lopez - Last Filed: 06/25/23 17:28>
[2023-06-25 06:08] LABS: Arterial Blood Carboxyhemoglob 3.2 % (0-1.5); Blood Gas Oxyhemoglobin 82.3 % (94-97); Blood Gas THB 8.7 g/dl (12-18); Blood O2 Saturation 86.8 % (92-98.5)
[2023-06-25] MEDS ORDERED: SODIUM CHLORIDE 0.9% 10ML INJ IV PRN (07:18)
[2023-06-25 07:22] LABS: Thyroid Stimulating Hormone 0.708 uIU/mL (0.358-3.740)
[2023-06-25] MEDS: INSULIN REGULAR (HUMAN) 100 UNIT/ML SQ SCH (07:30)
[2023-06-25] MEDS: INFLUENZA VACCINE (for 6+ mo) 0.5 ML DOSE IMVAC ONE (08:00)
[2023-06-25] MEDS: PNEUMOCOCCAL VACCINE 0.5 ML IMVAC ONE (08:00)
[2023-06-25] MEDS: POTASSIUM 25 MEQ EFFERV TAB PO ONE (08:00)
[2023-06-25] MEDS ORDERED: INSULIN REGULAR (HUMAN) 100 UNIT/ML ONE ×3 (08:07→20:40)
[2023-06-25] MEDS ORDERED: POTASSIUM 25 MEQ EFFERV TAB ONE (08:07)
[2023-06-25] MEDS: PANTOPRAZOLE 40 MG INJ IVP SCH (09:00)
[2023-06-25] MEDS: ASPIRIN EC 81 MG TAB PO SCH (09:00)
[2023-06-25] MEDS: FUROSEMIDE 40 MG/4 ML VIAL IV SCH ×2 (09:00→20:25)
[2023-06-25] MEDS ORDERED: PANTOPRAZOLE 40 MG INJ ONE (10:07)
[2023-06-25] MEDS ORDERED: ASPIRIN 81 MG CHEWABLE TABLET ONE (10:07)
[2023-06-25] MEDS ORDERED: INFLUENZA VACCINE (for 6+ mo) 0.5 ML DOSE IMVAC ONE (10:08)
[2023-06-25] MEDS ORDERED: PNEUMOCOCCAL VACCINE 0.5 ML IMVAC ONE (10:08)
--- NOTE | 2023-06-25 11:28 | P.CNS ---
Date of Consult: 06/25/23 Reason for Consult: Shortness of breath Chief Complaint: Shortness of breath History of Present Illness: Patient is 77 years of age with a worsening dyspnea she has been short of breath for 6 months became acutely worse according to the his brother who is present at the bedside patient was admitted with mild hyper hypoxemia Allergies atorvastatin [From Lipitor] Allergy (Verified 01/04/22 23:16) Unknown codeine Allergy (Verified 01/04/22 23:16) Unknown glimepiride Allergy (Verified 01/04/22 23:16) Unknown glipizide Allergy (Verified 01/04/22 23:16) Unknown Iodinated Contrast Media [Iodinated Contrast Media - Oral and] Allergy (Verified 01/04/22 23:16) Unknown Penicillins Allergy (Verified 01/04/22 23:16) Unknown pioglitazone [From Actos] Allergy (Verified 01/04/22 23:16) Unknown rosuvastatin [From Crestor] Allergy (Verified 01/04/22 23:16) Unknown sitagliptin [From Januvia] Allergy (Verified 01/04/22 23:16) Unknown Sulfa (Sulfonamide Antibiotics) Allergy (Verified 01/04/22 23:16) Unknown sulfamethoxazole [From Bactrim] Allergy (Verified 01/04/22 23:16) Unknown trimethoprim [From Bactrim] Allergy (Verified 01/04/22 23:16) Unknown Clindamycin Allergy (Uncoded 12/12/21 08:04) Unknown Darvocet-N Allergy (Uncoded 12/12/21 08:04) Unknown eryt Allergy (Uncoded 12/12/21 08:04) Unknown metformin Allergy (Uncoded 12/12/21 08:04) Unknown morphine Allergy (Uncoded 12/12/21 08:04) Unknown Wellbutr Allergy (Uncoded 12/12/21 08:04) Unknown Home Medications: Duloxetine [Cymbalta *] 60 mg PO DAILY 01/05/22 Insulin 70/30 NPH/Reg Human [Novolin 70/30*] 12 unit SQ BID 01/05/22 Ferrous Sulfate 325 mg PO DAILY 06/03/22 Magnesium Oxide 400 mg PO DAILY 06/03/22 Omeprazole [Prilosec] 40 mg PO DAILY 06/03/22 Folic Acid 1 mg PO DAILY #30 tab 06/04/22 Metoprolol Succinate [Toprol Xl*] 50 mg PO [id number] #30 tab 06/04/22 Pantoprazole [Protonix Tab*] 40 mg PO DAILY #30 tab 06/04/22 - Past Medical/Surgical History Diabetic: Yes -: SBO -: AVM -: angiodysplasia -: ischemic bowel disease -: celiac artherial stenosis -: IBS -: IDDM -: COPD -: PAD -: Chronic mesenteric ischemia -: GERD -: Esophageal pulmonary emboli -: Abdominal/Stomach surgery -: tonsillectomy -: cholecystectomy Psychosocial/ Personal History: Lives with her Daughter in one story home. Has a w/c, walker, cane. Does not have home O2. - Social History Smoking Status: Current every day smoker Alcohol use: No CD- Drugs: No Caffeine use: No Place of Residence: Home Review of Systems 10-point ROS is otherwise unremarkable General: Weakness Respiratory: Shortness of Breath Cardiovascular: Edema Physical Examination Temp Pulse Resp BP Pulse Ox 81 16 128/47 L 95 06/25/23 07:59 06/25/23 07:59 06/25/23 07:59 06/25/23 07:59 General: Alert, In no apparent distress, Oriented x3 Neck: Supple Respiratory: Clear to auscultation bilaterally Cardiovascular: No edema, Regular rate/rhythm, Normal S1 S2 Gastrointestinal: Normal bowel sounds, Soft and benign Laboratory Data (last 24 hrs) 06/25/23 06/25/23 06/25/23 02:25 02:25 02:25 WBC 10.70 Hgb 8.3 L Hct 26.9 L Plt Count 300 PT 11.8 INR 1.07 APTT 24.5 Sodium 138 Potassium 3.6 BUN 18 Creatinine 1.14 H Glucose 199 H Magnesium 2.0 Total Bilirubin 0.3 AST 21 ALT 19 Alkaline Phosphatase 75 Lipase 40 - Problems (1) Congestive heart failure Current Visit: Yes Status: Acute Plan: Patient is 77 years of age with extensive medical history and AV malformations admitted with progressive dyspnea patient's BNP is over 16,000 history of documented CHF x-ray reviewed mild bilateral pleural effusions no previous echo done reduced dose of Lasix patient is hypoxic on room air CHF may have been precipitated or aggravated by octreotide Qualifiers: Heart failure type: unspecified (2) COPD (chronic obstructive pulmonary disease) Current Visit: No Status: Acute Plan: Patient has a history of COPD former smoker have added nebulized Brovana
[2023-06-25] MEDS: METHYLPREDNISOLONE 40 MG INJ IV SCH (11:39)
--- NOTE | 2023-06-25 11:50 | EKG ---
Test Date: 2023-06-25 Test Time: 00:48:31 Rn Procedure: RV MEASUREMENT RESULTS: Intervals: Rate: 93 DE: 176 QRSD: 92 QT: 392 QTc: 487 [place]: P: 80 DE: 176 QRS: -28 T: 83 INTERPRETIVE STATEMENTS: Sinus rhythm with premature atrial complexes Anteroseptal infarct, age undetermined Abnormal ECG Compared to ECG 04/03/2023 00:06:34 Atrial premature complex(es) now present Sinus arrhythmia no longer present First degree AV block no longer present Myocardial infarct finding still present Electronically Signed On 06-25-23 11:48:32 CDT by Beltran Patel
[2023-06-25] MEDS: ARFORMOTEROL TARTRATE 15 MCG/2 ML VIAL.NEB NEB SCH (11:55)
--- NOTE | 2023-06-25 12:03 | ECHO ---
HEIGHT: 5 ft 2 in WEIGHT: 130 lb 0 oz DATE OF STUDY: 06/25/[address]: Jeanine Crawford DISPLAY CARD WRITER-BC 2-DIMENSIONAL: YES M.MODE: YES DOPPLER: YES COLOR FLOW: YES TDS: PORTABLE: YES DEFINITY: BUBBLE STUDY: DIAGNOSIS: NEW ONSET CONGESTIVE HEART FAILURE CARDIAC HISTORY: CATHERIZATION: NO SURGERY: NO PROSTHETIC VALVE: NO PACEMAKER: NO MEASUREMENTS (cm) DIASTOLIC (NORMALS) SYSTOLIC (NORMALS) IVSd 1.1 (0.6-1.2) LA Diam 3.4 (1.9-4.0) LVEF 50% LVIDd 4.3 (3.5-5.7) LVIDs 3.7 (2.0-3.5) %FS LVPWd 1.2 (0.6-1.2) Ao Diam 2.7 (2.0-3.7) 2 DIMENSIONAL ASSESSMENT: RIGHT ATRIUM: NORMAL LEFT ATRIUM: NORMAL RIGHT VENTRICLE: NORMAL LEFT VENTRICLE: NORMAL TRICUSPID VALVE: MILD TRICUSPID REGURGITATION MITRAL VALVE: MODERATE MITRAL REGURGITATION PULMONIC VALVE: NORMAL AORTIC VALVE: NORMAL PERICARDIAL EFFUSION: NONE AORTIC ROOT: NORMAL LEFT VENTRICULAR WALL MOTION: NORMAL DOPPLER/COLOR FLOW: SEE BELOW COMMENTS: 1. LOW NORMAL LEFT VENTRICULAR EJECTION FRACTION 50% 2. MILD TO MODERATE MITRAL REGURGITATION 3. MILD TRICUSPID REGURGITATION TECHNOLOGIST: CORIN CHERY
--- NOTE | 2023-06-25 12:27 | RAD REPORT ---
EXAM DESCRIPTION: XR Chest, 1 View CLINICAL HISTORY: The patient is 77 years old and is Female; SOB TECHNIQUE: Single view of the chest. COMPARISON: July 18, 2021. FINDINGS: Lungs: Bibasilar subsegmental atelectasis or infiltrates. Small pleural effusions. No pulmonary vascular congestion. Pleural space: No pneumothorax. Heart: Cardiomegaly. Mediastinum: Unremarkable. Bones/joints: No acute fracture visualized. Tubes, lines and devices: Midthoracic spinal stimulator device. Upper abdomen: No free air in the visualized upper abdomen. IMPRESSION: Bibasilar subsegmental atelectasis or infiltrates. Small pleural effusions. Electronically signed by: Celsa Neely MD 06/25/2023 06:48 AM CDT Due to temporary technical issues with the PACS/Fluency reporting system, reports are being signed by the in house radiologists without review as a courtesy to insure prompt reporting. The interpreting radiologist is fully responsible for the content of the report.
--- NOTE | 2023-06-25 12:54 | CON ---
Date of Consultation: 06/25/2023 Reason For Consultation: CHF. History Of Present Illness: A 77-year-old female, history of diabetes, COPD, peripheral vascular dis ease, acid reflux, presented with shortness of breath, lower extremity edema and orthopnea. Denies h aving any chest pain. No nausea, vomiting, diarrhea, or diaphoresis. Past Medical History: As outlined above in the HPI. Medications: Refer to reconciliation sheet for detailed list. Allergies: ATORVASTATIN, CODEINE, GLIMEPIRIDE AND GLIPIZIDE, IODINE, PENICILLIN, PIOGLITAZONE, METFO RMIN. Family History: No mention of coronary artery disease or cancer. Social History: She does not smoke or drink. Does not use any drugs. Review of Systems: All systems reviewed, they are negative except mentioned in HPI. Physical Examination: Vital Signs: Reviewed. Head and Neck: Pupils are equal, reactive to light. Intact eye movements. No JVD. No cervical lym phadenopathy. Neck is supple. Thyroid is not enlarged. Lungs: Crackles at both lung bases half the way up bilaterally. No accessory muscle use or muscle r etraction. Heart: Irregular. No extra sounds. Abdomen: Soft, nontender. Bowel sounds positive. No organomegaly. No mass or hernia. No rigidity or rebound. Extremities: Edema bilateral. No clubbing, cyanosis. Intact pulses. Skin: No rash. Neurologic: Alert, awake, oriented x3. No acute focal deficits appreciated. Investigations: BUN 18, creatinine 1.14. Troponin 104 x2. NT-proBNP is 16,627 and hemoglobin is 8. 3. Assessment/recommendation: 1.Acute congestive heart failure. No chest pain. Obtain an echo. Continue IV Lasix 40 mg q.12 pastora rs. Carefully monitor BUN, creatinine, electrolytes. Further plan and recommendation per the echo r esults. 2.Elevated troponin. No chest pain. This is probably demand, however, ischemia workup is warranted as well. She will need to have a stress test in an attempt to give her aspirin 81 mg. 3.Diabetes. Check sugars 3 times a day. Cover with regular insulin per sliding scale. SR/MODL Voice ID: [id number] Report ID: [id number]
[2023-06-25] MEDS ORDERED: ALPRAZOLAM 0.5 MG TABLET ONE (18:30)
[2023-06-25] MEDS: ALPRAZOLAM 0.5 MG TABLET PO ONE (18:31)
[2023-06-25] MEDS ORDERED: FUROSEMIDE 20 MG/ 2ML VIAL ONE (20:20)
[2023-06-25] MEDS ORDERED: ARFORMOTEROL TARTRATE 15 MCG/2 ML VIAL.NEB ONE (21:13)
[2023-06-26 06:38] LABS: Absolute Basophils 0.1 K/uL (0-0.5); Absolute Eosinophils 0.1 K/uL (0-0.5); Absolute Lymphocytes (CBC) 1.1 K/uL (0.7-4.9); Absolute Monocytes 0.8 K/uL (0.1-1.3); Absolute Neutrophil 8.2 K/uL (1.8-8.0); Basophils % 0.9 % (0-1.3); Eosinophils % 1.4 % (0-4.4); Hemoglobin 8.4 g/dL (12.0-15.0); Lymphocytes % 10.7 % (15.3-44.8); MCHC 31.2 g/dL (32.0-36.0); MCV 89.5 fL (80-100); MPV 8.9 fL (7.6-11.3); Monocytes % 7.9 % (3.3-12.3); Neutrophils % 79.1 % (41.7-73.7); Platelets 281 thou/uL (152-406); RBC Red Blood Cell Count 3.01 M/uL (3.86-4.86); Red Cell Distribution Width 15.9 % (12.1-15.2)
[2023-06-26 07:03] LABS: Albumin 2.5 g/dL (3.4-5.0); Albumin/Globulin Ratio 0.9 (1.1-1.8); Anion Gap 8.4 mEq/L (5.0-15.0); Bilirubin Total 0.4 mg/dL (0.2-1.0); Globulin 2.9 g/dL (2.3-3.5); Magnesium 1.9 mg/dL (1.6-2.4); Potassium 3.4 mEq/L (3.5-5.1); Protein, Total 5.4 g/dL (6.4-8.2)
[2023-06-26] MEDS: POTASSIUM 25 MEQ EFFERV TAB PO ONE ×2 (08:11→16:52)
--- NOTE | 2023-06-26 08:13 | P.PN ---
Subjective Date of Service: 06/26/23 Chief Complaint: new onset CHF, COPD exacerbation with hypoxia Subjective: No C/O voiced, Improving <Jeanine Crawford - Last Filed: 06/26/23 08:07> Date of Service: 06/26/23 <Eulalia Henson C - Last Filed: 06/26/23 16:30> Review of Systems 10-point ROS is otherwise unremarkable Respiratory: Shortness of Breath, SOB with Excertion, As per HPI Cardiovascular: Edema, As per HPI Gastrointestinal: As per HPI <Jeanine Crawford - Last Filed: 06/26/23 08:07> Physical Examination - Vital Signs Temperature: 97.4 F Blood Pressure: 158/70 Pulse: 101 Respirations: 17 Pulse Ox (%): 95 - Physical Exam General: Alert, In no apparent distress, Oriented x3 HEENT: Atraumatic, Normocephalic Neck: Supple, No LAD Respiratory: Clear to auscultation bilaterally, Normal air movement Cardiovascular: No edema, Normal pulses, Regular rate/rhythm Capillary refill: <2 Seconds Gastrointestinal: Soft and benign Musculoskeletal: No clubbing Integumentary: No rashes Lymphatics: No axilla or inguinal lymphadenopathy External genitalia: Deferred Rectal: Deferred - Studies Microbiology Data (last 24 hrs): 06/25/23 03:10 Nasopharnyx Influenza Type A Antigen Screen - Final 06/25/23 03:10 Nasopharnyx Influenza Type B Antigen Screen - Final <Jeanine Crawford - Last Filed: 06/26/23 08:07> Assessment And Plan - Plan Congestive heart failure: Echo (last ECHO 2020 at [facility] EF 65%) Lasix 40mg IV q 8h, changed to q12h elevated troponin has trended down Cardiology consult, recommended echo and re-eval Angiodysplagia of bowel with chronic anemia: Dr. Royal consult Hold octreotide for now T&S, 2u PRBC to hold, pt with significant antibodies as she has been transfused so much. COPD exacerbation: ABG on RA to assess need for O2 at home pO2 54% - qualifies for home O2 Nebs and inhaled agents per Dr. Lino Consult Dr. Lino Anemia: T&S Protonix 40mg IV q 12h continue home med po iron Hypoabuminemia: Blood transfusion monitor and reassess Code status: DNR Discharge Plan: Home Plan to discharge in: 24 Hours <Jeanine Crawford - Last Filed: 06/26/23 08:07> - Plan Pt seen and examined. I agree with the note by the BED RUBBER. Pt is feeling better. She is diuresing well with lasix. Hgb is 8.4. Troponin is 70. Pt denies any chest pain. Will trend troponin. Will monitor H/H. Will continue home meds for other chronic medical problems. <Eulalia Henson - Last Filed: 06/26/23 16:30>
[2023-06-26] MEDS ORDERED: GLUCAGON 1 MG/VIAL IM PRN (08:31)
[2023-06-26] MEDS ORDERED: D50W 25 GM/50 ML SYRINGE IV PRN (08:31)
[2023-06-26] MEDS ORDERED: PANTOPRAZOLE 40MG TABLET PO SCH (09:00)
[2023-06-26] MEDS ORDERED: FERROUS SULFATE 325 MG TAB PO SCH (09:00)
--- NOTE | 2023-06-26 10:02 | PN ---
Date of Progress Note: 06/26/2023 Subjective: Seen at bedside, breathing is much better, but she is in atrial fibrillation. Review of Systems: No chest pain. Has shortness of breath on exertion and she is anxious. Does not have any nausea, vo miting, diarrhea. No dysuria, polyuria, or urinary urgency. All other systems reviewed, they were n egative. Objective: Vital signs: Reviewed. Head and Neck: Pupils are equal, reactive to light. Intact eye movements. No cervical lymphadenopa thy. Neck: Supple. Thyroid is not enlarged. Lungs: Decreased breathing sounds bilaterally with faint crackles in bases. No accessory muscle use or muscle retraction. Heart: Irregularly irregular. No extra sounds. Abdomen: Soft, nontender. Bowel sounds positive. No organomegaly. No masses or hernia. No rigidi ty or rebound. Extremities: Trace edema. No clubbing, cyanosis. Intact pulses. Skin: No rash or nodules. Neurologic: Alert, awake, and oriented x3. No acute focal deficits appreciated. Lymph Nodes: No cervical lymphadenopathy. Investigations: BUN 22, creatinine is 1.27. Assessment/recommendations: 1.Acute congestive heart failure exacerbation. Ejection fraction is normal. At this point, she see ms to be getting euvolemic. Recommend to switch Lasix to oral 40 mg twice a day. Monitor BUN, creat inine, electrolytes. 2.Irregularly irregular heart rhythm, likely atrial fibrillation, recommend to perform 12-lead EKG i f confirms and we will start on rhythm controlling medicines. 3.Elevated troponin, likely demand. However, we will do ischemia workup on her once her condition i s stable. SR/MODL Voice ID: [id number] Report ID: [id number]
--- NOTE | 2023-06-26 11:15 | P.PN ---
Subjective Date of Service: 06/26/23 Chief Complaint: new onset CHF, COPD exacerbation with hypoxia Subjective: Improving (Patient is improving doing a little better) Review of Systems 10-point ROS is otherwise unremarkable General: Weakness Respiratory: Shortness of Breath Physical Examination - Vital Signs Temperature: 97.4 F Blood Pressure: 158/70 Pulse: 101 Respirations: 17 Pulse Ox (%): 95 - Physical Exam General: Alert, Oriented x3 Respiratory: Clear to auscultation bilaterally Cardiovascular: No edema, Regular rate/rhythm, Normal S1 S2 Assessment And Plan - Current Problems (Diagnosis) (1) Congestive heart failure Current Visit: Yes Status: Acute Plan: Probably underlying CHF will await an echocardiogram reduced dose of Lasix renal function is worse add spironolactone DC PPIs IV Qualifiers: Heart failure type: unspecified (2) COPD (chronic obstructive pulmonary disease) Current Visit: No Status: Acute Plan: Patient has a history of COPD former smoker have added nebulized Brovana no change avoid steroid Qualifiers: Emphysema type: unspecified
[2023-06-26] MEDS: DULOXETINE 20 MG CAP PO SCH (12:19)
[2023-06-26] MEDS: FOLIC ACID 1 MG TABLET PO SCH (12:19)
[2023-06-26] MEDS: FERROUS SULFATE 325 MG TAB PO SCH (12:19)
[2023-06-26] MEDS: LORAZEPAM 0.5 MG TABLET PO SCH (12:20)
[2023-06-26] MEDS: SPIRONOLACTONE 25 MG TABLET PO SCH (12:20)
[2023-06-26] MEDS: INSULIN 70/30 100 UNITS/ML SQ SCH (12:45)
[2023-06-26] MEDS: NICOTINE 21 MG/PAT TD SCH (12:51)
[2023-06-26] MEDS: NICOTINE 21 MG/PAT TD ONE (13:02)
[2023-06-26] MEDS ORDERED: FUROSEMIDE 40 MG TABLET PO SCH (17:00)
[2023-06-26] MEDS: DULERA 100/5 (MOMETASONE/FORMOTEROL) INHALER IH SCH (20:07)
[2023-06-26] MEDS: GABAPENTIN 300 MG CAP PO ONE (22:19)
[2023-06-27] MEDS: METOPROLOL XL 25 MG TAB PO SCH ×2 (06:00→12:19)
[2023-06-27 07:29] LABS: Albumin 2.6 g/dL (3.4-5.0); Albumin/Globulin Ratio 0.8 (1.1-1.8); Anion Gap 8.8 mEq/L (5.0-15.0); Bilirubin Total 0.4 mg/dL (0.2-1.0); Globulin 3.1 g/dL (2.3-3.5); Magnesium 1.9 mg/dL (1.6-2.4); Potassium 3.8 mEq/L (3.5-5.1); Protein, Total 5.7 g/dL (6.4-8.2)
[2023-06-27 07:46] LABS: Absolute Basophils 0.1 K/uL (0-0.5); Absolute Eosinophils 0.1 K/uL (0-0.5); Absolute Lymphocytes (CBC) 0.8 K/uL (0.7-4.9); Absolute Monocytes 0.6 K/uL (0.1-1.3); Absolute Neutrophil 4.5 K/uL (1.8-8.0); Basophils % 1.4 % (0-1.3); Eosinophils % 2.4 % (0-4.4); Hemoglobin 9.1 g/dL (12.0-15.0); Lymphocytes % 12.8 % (15.3-44.8); MCH 27.9 pg (27.0-35.0); MCHC 31.4 g/dL (32.0-36.0); MPV 9.5 fL (7.6-11.3); Monocytes % 9.9 % (3.3-12.3); Neutrophils % 73.5 % (41.7-73.7); Nucleated Red Blood Cells % 0.3 % (0-0); Platelets 263 thou/uL (152-406); RBC Red Blood Cell Count 3.26 M/uL (3.86-4.86); Red Cell Distribution Width 15.8 % (12.1-15.2)
[2023-06-27] MEDS: FUROSEMIDE 40 MG TABLET PO SCH (09:47)
--- NOTE | 2023-06-27 09:50 | P.PN ---
Subjective Date of Service: 06/27/23 Chief Complaint: new onset CHF, COPD exacerbation with hypoxia Subjective: Improving (And is doing much better shortness of breath has improved) Review of Systems Unremarkable Physical Examination - Vital Signs Temperature: 96.3 F Blood Pressure: 163/70 Pulse: 100 Respirations: 17 Pulse Ox (%): 98 - Physical Exam General: Alert, Oriented x3 Respiratory: Clear to auscultation bilaterally Cardiovascular: No edema, Regular rate/rhythm Assessment And Plan - Current Problems (Diagnosis) (1) Congestive heart failure Current Visit: Yes Status: Acute Plan: Patient's condition has improved combination of CHF and COPD with inhaled bronchodilators Lasix spironolactone 2D echocardiogram ambulate patient for home O2 cardiogram shows mildly impaired ejection fraction has some arrhythmias also add a low-dose beta-gia Qualifiers: Heart failure type: unspecified (2) COPD (chronic obstructive pulmonary disease) Current Visit: No Status: Acute Plan: Patient has a history of COPD former smoker changed to inhaler Qualifiers: Emphysema type: unspecified
--- NOTE | 2023-06-27 10:55 | RAD REPORT ---
EXAM DESCRIPTION: RAD - Chest Single View - 06/27/2023 10:33 am CLINICAL HISTORY: History of heart failure COMPARISON: Chest Single View dated 06/25/2023; Chest Single View dated 04/02/2023; Chest Single View d ated 11/29/2022; Chest Single View dated 10/29/2022 FINDINGS: Lines: None. Lungs: No evidence of edema or pneumonia. Haziness at the lung bases favored to be due to underpenetr ation rather than pleural effusions . Pleural: No significant pleural effusions or pneumothorax. Cardiac: The heart size is within normal limits. Mediastinum: Within normal limits. Bones: No acute fractures. Spinal stimulator. Other: None IMPRESSION: No acute cardiopulmonary disease.
[2023-06-27] MEDS: METOPROLOL TAR 25 MG TAB ONE (11:25)
--- NOTE | 2023-06-27 15:21 | P.PN ---
Subjective Date of Service: 06/27/23 Chief Complaint: new onset CHF, COPD exacerbation with hypoxia Subjective: Tolerating diet, Improving, Doing well <Jeanine Crawford - Last Filed: 06/27/23 15:17> Date of Service: 06/27/23 <Eulalia Henson - Last Filed: 06/27/23 17:50> Review of Systems 10-point ROS is otherwise unremarkable General: As per HPI Respiratory: As per HPI Cardiovascular: As per HPI <Jeanine Crawford - Last Filed: 06/27/23 15:17> Physical Examination - Vital Signs Temperature: 97.3 F Blood Pressure: 150/65 Pulse: 97 Respirations: 16 Pulse Ox (%): 99 - Physical Exam General: Alert, In no apparent distress, Oriented x3 HEENT: Atraumatic, Normocephalic Neck: Supple, 2+ carotid pulse no bruit, JVD not distended Respiratory: Clear to auscultation bilaterally, Normal air movement Cardiovascular: No edema, Normal S1 S2, Irregular heart rate/rhythm Capillary refill: <2 Seconds Gastrointestinal: Soft and benign Musculoskeletal: No clubbing, No swelling Integumentary: No rashes Neurological: Normal speech, Normal tone Lymphatics: No axilla or inguinal lymphadenopathy External genitalia: Deferred Rectal: Deferred <Jeanine Crawford - Last Filed: 06/27/23 15:17> Assessment And Plan - Plan Congestive heart failure: Echo (last ECHO 2020 at [facility] EF 65%), HFpEF per ECHO this admission Lasix 40mg IV q 8h, changed to q12h, decreased to daily today 06/26 elevated troponin has trended down Cardiology on board Angiodysplagia of bowel with chronic anemia: Dr. Royal consult Hold octreotide for now T&S, 2u PRBC to hold, pt with significant antibodies as she has been transfused so much. COPD exacerbation: ABG on RA to assess need for O2 at home pO2 54% - qualifies for home O2 Nebs and inhaled agents per Dr. Lino Consult Dr. Lino Anemia: T&S Protonix 40mg IV q 12h continue home med po iron Hypoabuminemia: Blood transfusion monitor and reassess awaiting home O2 for discharge Code status: DNR Discharge Plan: Home Plan to discharge in: 24 Hours - Code Status/Comfort Care Code Status Assessed: Yes Code Status: Do Not Attempt Resuscitat <Jeanine Crawford - Last Filed: 06/27/23 15:17> - Plan Pt seen and examined. I agree with the note by the CALENDERING SUPERVISOR. Pt is feeling better. She will need home oxygen eval. Currently on 2L BNC. continue lasix 40mg po daily <Eulalia Henson - Last Filed: 06/27/23 17:50>
--- NOTE | 2023-06-27 15:29 | P.DS ---
Admission Date: 06/25/23 Discharge Date: 06/27/23 Reason for Admission: new onset CHF, COPD exacerbation with hypoxia Consultations: Dr. Jorge Lino Brief History of Present Illness: Ms Salazar is a 77-year-old female with a past medical history of angiodysplasia of bowel syndrome, COPD, GERD, insulin-dependent diabetes, cerebrovascular disease, and peripheral artery disease. She sees Dr. Royal for the angiodysplasia with chronic anemia. Until a few months ago she got frequent blood transfusions but then was started on octreotide injections. She has no history of CHF, but presented to the emergency room last evening with significant dyspnea, which she assumed was an exacerbation of COPD. On ABG assessment in the ED, her blood gases showed a pH of 7.4, pCO2 44.2, pO2 63.9, bicarb 26.7, methemoglobin 2.1, hemoglobin 8.7. On laboratory evaluation her white count is 10.7, H&H 8.3 and 26.9, with platelet count of 300. Her chemistries are unremarkable except for a creatinine of 1.4, GFR 50, and a glucose of 190. Of note her BNP is 16,627. Albumin 2.6, and a troponin of 104.8. She denies chest pain, her EKG showed sinus rhythm with PACs, and her CXR shows bilateral haziness. She was given 40 mg of Lasix IV push in the emergency department. On my evaluation she was a bit somnolent with O2 at 3 L via nasal cannula. We will repeat the ABG on room air, have ordered 2 units PRBCs to hold, as we will have to hold octreotide for now as it may have induced the current congestive heart failure. We will admit her for further investigation and treatment. Hospital Course: Ms. Salazar has diuresed well over the course of the hospitalization. She is feeling much better, breathing easier, edema has resolved, waiting on home O2 for discharge to home. She will need to follow-up with Dr. Patel regarding new onset congestive heart failure. She will also need to follow-up with Dr. Royal regarding octreotide. Home O2 <Jeanine Crawford - Last Filed: 06/27/23 15:21> Admission Date: 06/25/23 Discharge Date: 06/28/23 Hospital Course: Ms. Salazar was admitted with shortness of breath, she has a history of COPD, was noted to be in CHF exacerbation, she was evaluated by cardiology, and pulmonary. She was treated with diuretics, bronchodilators, started on a low- dose beta-gia. Patient tolerating diet, stable for discharge to home with follow-up appointment with primary care physician, follow-up with cardiology, pulmonary after discharge. Plan to initiate home oxygen prior to discharge. PROBLEM: Shortness of breath secondary to congestive heart failure Congestive heart failure improved with diuretic Mildly impaired ejection fraction COPD plan to initiate home O2 Acute kidney injury likely secondary to prerenal congestive heart failure Elevated troponin Follow-up with cardiology after discharge Follow-up with pulmonary after discharge Continue home medicines as previously prescribed GOAL: Clear understanding of disease process INSTRUCTIONS: Physician Discharge Instructions: -Follow-up with PCP in 1 to 2 weeks -Please call if any questions regarding hospital stay -Please call nursing station at [phone] if any nursing or medication questions -Return to the emergency room if symptoms worsen Diet: ADA, low sodium Activity: Fall precautions <Pam Ritchie - Last Filed: 06/28/23 07:47> Disposition: ROUTINE DISCHARGE Discharge Condition: GOOD Vital Signs/Physical Exam: Temp Pulse Resp BP Pulse Ox 97.3 F 97 H 16 150/65 H 99 06/27/23 15:20 06/27/23 15:20 06/27/23 15:20 06/27/23 15:20 06/27/23 15:20 Laboratory Data at Discharge: WBC 6.20 thou/uL (4.3-10.9) 06/27/23 06:50 Hgb 9.1 g/dL (12.0-15.0) L D 06/27/23 06:50 Hct 29.0 % (36.0-45.0) L 06/27/23 06:50 Plt Count 263 thou/uL (152-406) 06/27/23 06:50 PT 11.8 SECONDS (9.5-12.5) 06/25/23 02:25 INR 1.07 06/25/23 02:25 APTT 24.5 SECONDS (24.3-36.9) 06/25/23 02:25 Sodium 138 mEq/L (136-145) 06/27/23 06:50 Potassium 3.8 mEq/L (3.5-5.1) 06/27/23 06:50 BUN 18 mg/dL (7-18) 06/27/23 06:50 Creatinine 1.19 mg/dL (0.55-1.02) H 06/27/23 06:50 Glucose 143 mg/dL (74-106) H 06/27/23 06:50 Magnesium 1.9 mg/dL (1.6-2.4) 06/27/23 06:50 Total Bilirubin 0.4 mg/dL (0.2-1.0) 06/27/23 06:50 AST 13 U/L (15-37) L 06/27/23 06:50 ALT 15 U/L (13-56) 06/27/23 06:50 Alkaline Phosphatase 73 U/L (45-117) 06/27/23 06:50 Lipase 40 U/L (13-75) 06/25/23 02:25 <Crawford,Jeanine Abisai - Last Filed: 06/27/23 15:21> Vital Signs/Physical Exam: Temp Pulse Resp BP Pulse Ox 97.9 F 83 14 136/44 L 98 06/28/23 04:00 06/28/23 04:00 06/28/23 04:00 06/28/23 04:00 06/28/23 04:00 Laboratory Data at Discharge: WBC 8.20 thou/uL (4.3-10.9) 06/28/23 05:18 Hgb 9.7 g/dL (12.0-15.0) L 06/28/23 05:18 Hct 31.6 % (36.0-45.0) L 06/28/23 05:18 Plt Count 341 thou/uL (152-406) D 06/28/23 05:18 PT 11.8 SECONDS (9.5-12.5) 06/25/23 02:25 INR 1.07 06/25/23 02:25 APTT 24.5 SECONDS (24.3-36.9) 06/25/23 02:25 Sodium 135 mEq/L (136-145) L 06/28/23 05:18 Potassium 3.6 mEq/L (3.5-5.1) 06/28/23 05:18 BUN 21 mg/dL (7-18) H 06/28/23 05:18 Creatinine 1.33 mg/dL (0.55-1.02) H 06/28/23 05:18 Glucose 224 mg/dL (74-106) H 06/28/23 05:18 Magnesium 2.0 mg/dL (1.6-2.4) 06/28/23 05:18 Total Bilirubin 0.4 mg/dL (0.2-1.0) 06/28/23 05:18 AST 14 U/L (15-37) L 06/28/23 05:18 ALT 15 U/L (13-56) 06/28/23 05:18 Alkaline Phosphatase 75 U/L (45-117) 06/28/23 05:18 Lipase 40 U/L (13-75) 06/25/23 02:25 <Pam Ritchie - Last Filed: 06/28/23 07:47> Diet: Low sodium Activity: Ad darrel <YvetteJeaninelorraine Barone - Last Filed: 06/27/23 15:21> <Pam Ritchie - Last Filed: 06/28/23 07:47> Home Medications: Duloxetine [Cymbalta *] 60 mg PO DAILY 01/05/22 Insulin 70/30 NPH/Reg Human [Novolin 70/30*] 12 unit SQ BID 01/05/22 Ferrous Sulfate 325 mg PO DAILY 06/03/22 Magnesium Oxide 400 mg PO DAILY 06/03/22 Omeprazole [Prilosec] 40 mg PO DAILY 06/03/22 Folic Acid 1 mg PO DAILY #30 tab 06/04/22 Metoprolol Succinate [Toprol Xl*] 50 mg PO [id number] #30 tab 06/04/22 Pantoprazole [Protonix Tab*] 40 mg PO DAILY #30 tab 06/04/22 Followup: Isra Rondon DO [Primary Care Provider] - Beltran Patel MD [ACTIVE - CAN ADMIT] - Matthew Lino MD [ACTIVE - CAN ADMIT] - Valery Vela MD [ACTIVE - CAN ADMIT] -
[2023-06-27] MEDS ORDERED: GABAPENTIN 300 MG CAP PO ONE (21:17)
[2023-06-28 05:55] LABS: Albumin 2.8 g/dL (3.4-5.0); Albumin/Globulin Ratio 0.9 (1.1-1.8); Anion Gap 6.6 mEq/L (5.0-15.0); Bilirubin Total 0.4 mg/dL (0.2-1.0); Globulin 3.2 g/dL (2.3-3.5); Potassium 3.6 mEq/L (3.5-5.1)
[2023-06-28 06:16] LABS: Absolute Basophils 0.1 K/uL (0-0.5); Absolute Eosinophils 0.2 K/uL (0-0.5); Absolute Lymphocytes (CBC) 0.8 K/uL (0.7-4.9); Absolute Monocytes 0.7 K/uL (0.1-1.3); Absolute Neutrophil 6.4 K/uL (1.8-8.0); Basophils % 1.3 % (0-1.3); Eosinophils % 2.4 % (0-4.4); Hematocrit 31.6 % (36.0-45.0); Hemoglobin 9.7 g/dL (12.0-15.0); Lymphocytes % 9.7 % (15.3-44.8); MCH 27.5 pg (27.0-35.0); MCHC 30.8 g/dL (32.0-36.0); MCV 89.4 fL (80-100); MPV 9.5 fL (7.6-11.3); Monocytes % 8.9 % (3.3-12.3); Neutrophils % 77.7 % (41.7-73.7); Platelets 341 thou/uL (152-406); RBC Red Blood Cell Count 3.54 M/uL (3.86-4.86); Red Cell Distribution Width 15.6 % (12.1-15.2)
--- NOTE | 2023-06-28 07:12 | RAD REPORT ---
EXAM DESCRIPTION: RAD - Chest Single View - 06/28/2023 4:24 am CLINICAL HISTORY: History of heart failure COMPARISON: Chest Single View dated 06/27/2023; Chest Single View dated 06/25/2023; Chest Single View dated 04/02/2023; Chest Single View dated 11/29/2022 FINDINGS: Lines: None. Lungs: No evidence of edema or pneumonia. Pleural: No significant pleural effusions or pneumothorax. Cardiac: The heart size is within normal limits. Mediastinum: Within normal limits. Bones: No acute fractures. Spinal stimulator. Other: None IMPRESSION: No acute cardiopulmonary disease.
--- NOTE | 2023-06-28 07:51 | P.DS ---
Admission Date: 06/25/23 Discharge Date: 06/28/23 Disposition: ROUTINE DISCHARGE Discharge Condition: GOOD Reason for Admission: new onset CHF, COPD exacerbation with hypoxia Brief History of Present Illness: Ms Salazar is a 77-year-old female with a past medical history of angiodysplasia of bowel syndrome, COPD, GERD, insulin-dependent diabetes, cerebrovascular disease, and peripheral artery disease. She sees Dr. Royal for the ang iodysplasia with chronic anemia. Until a few months ago she got frequent blood transfusions but then was started on octreotide injections. She has no history of CHF, but presented to the emergency room last evening with significant dyspnea, which she assumed was an exacerbation of COPD. On ABG assessment in the ED, her blood gases showed a pH of 7.4, pCO2 44.2, pO2 63.9, bicarb 26.7, methemoglobin 2.1, hemoglobin 8.7. On laboratory evaluation her white count is 10.7, H&H 8.3 and 26.9, with platelet count of 300. Her chemistries are unremarkable except for a creatinine of 1.4, GFR 50, and a glucose of 190. Of note her BNP is 16,627. Albumin 2.6, and a troponin of 104.8. She denies chest pain, her EKG showed sinus rhythm with PACs, and her CXR shows bilateral haziness. She was given 40 mg of Lasix IV push in the emergency department. On my evaluation she was a bit somnolent with O2 at 3 L via nasal cannula. We will repeat the ABG on room air, have ordered 2 units PRBCs to hold, as we will have to hold octreotide for now as it may have induced the current congestive heart failure. We will admit her for further investigation and treatment. - Physical Exam General: Alert, In no apparent distress, Oriented x3 HEENT: Atraumatic, Normocephalic Neck: Supple, 2+ carotid pulse no bruit, JVD not distended Respiratory: Clear to auscultation bilaterally, Normal air movement Cardiovascular: No edema, Normal S1 S2, Irregular heart rate/rhythm Capillary refill: <2 Seconds Gastrointestinal: Soft and benign Musculoskeletal: No clubbing, No swelling Integumentary: No rashes Neurological: Normal speech, Normal tone Lymphatics: No axilla or inguinal lymphadenopathy Hospital Course: Ms. Salazar with an extensive past medical history. Past medical history past medical history of angiodysplasia of bowel syndrome, COPD, GERD, insulin- dependent diabetes, cerebrovascular disease, and peripheral artery disease. She sees Dr. Royal for the angiodysplasia with chronic anemia. Until a few months ago she got frequent blood transfusions but then was started on octreotide injections. Ms. Salazar was admitted with shortness of breath, she has a history of COPD, was noted to be in CHF exacerbation, she was evaluated by cardiology, and pulmonary. She was treated with diuretics, bronchodilators, started on a low- dose beta-gia. Patient tolerating diet, stable for discharge to home with follow-up appointment with primary care physician, follow-up with cardiology, pulmonary after discharge. Plan to initiate home oxygen prior to discharge. PROBLEM: Shortness of breath secondary to congestive heart failure Congestive heart failure improved with diuretic Mildly impaired ejection fraction COPD plan to initiate home O2 Acute kidney injury likely secondary to prerenal congestive heart failure Elevated troponin New prescription spironolactone 25 mg daily Follow-up with cardiology after discharge Follow-up with pulmonary after discharge Follow-up with Dr. Royal oncology after discharge Continue home medicines as previously prescribed GOAL: Clear understanding of disease process INSTRUCTIONS: Physician Discharge Instructions: -Follow-up with PCP in 1 to 2 weeks -Please call if any questions regarding hospital stay -Please call nursing station at [phone] if any nursing or medication questions -Return to the emergency room if symptoms worsen Diet: ADA, low sodium Activity: Fall precautions Vital Signs/Physical Exam: Temp Pulse Resp BP Pulse Ox 97.9 F 83 14 136/44 L 98 06/28/23 04:00 06/28/23 04:00 06/28/23 04:00 06/28/23 04:00 06/28/23 04:00 Laboratory Data at Discharge: WBC 8.20 thou/uL (4.3-10.9) 06/28/23 05:18 Hgb 9.7 g/dL (12.0-15.0) L 06/28/23 05:18 Hct 31.6 % (36.0-45.0) L 06/28/23 05:18 Plt Count 341 thou/uL (152-406) D 06/28/23 05:18 PT 11.8 SECONDS (9.5-12.5) 06/25/23 02:25 INR 1.07 06/25/23 02:25 APTT 24.5 SECONDS (24.3-36.9) 06/25/23 02:25 Sodium 135 mEq/L (136-145) L 06/28/23 05:18 Potassium 3.6 mEq/L (3.5-5.1) 06/28/23 05:18 BUN 21 mg/dL (7-18) H 06/28/23 05:18 Creatinine 1.33 mg/dL (0.55-1.02) H 06/28/23 05:18 Glucose 224 mg/dL (74-106) H 06/28/23 05:18 Magnesium 2.0 mg/dL (1.6-2.4) 06/28/23 05:18 Total Bilirubin 0.4 mg/dL (0.2-1.0) 06/28/23 05:18 AST 14 U/L (15-37) L 06/28/23 05:18 ALT 15 U/L (13-56) 06/28/23 05:18 Alkaline Phosphatase 75 U/L (45-117) 06/28/23 05:18 Lipase 40 U/L (13-75) 06/25/23 02:25 Home Medications: Duloxetine [Cymbalta *] 60 mg PO DAILY 01/05/22 Insulin 70/30 NPH/Reg Human [Novolin 70/30*] 12 unit SQ BID 01/05/22 Ferrous Sulfate 325 mg PO DAILY 06/03/22 Magnesium Oxide 400 mg PO DAILY 06/03/22 Omeprazole [Prilosec] 40 mg PO DAILY 06/03/22 Folic Acid 1 mg PO DAILY #30 tab 06/04/22 Metoprolol Succinate [Toprol Xl*] 50 mg PO [id number] #30 tab 06/04/22 Pantoprazole [Protonix Tab*] 40 mg PO DAILY #30 tab 06/04/22 Duloxetine [Cymbalta *] 60 mg PO DAILY cap 06/28/23 Ferrous Sulfate [Ferrous Sulfate*] 325 mg PO DAILY tab 06/28/23 Spironolactone [Aldactone*] 25 mg PO DAILY 15 Days #15 tab 06/28/23 New Medications: Spironolactone [Aldactone*] 25 mg PO DAILY 15 Days #15 tab Physician Discharge Instructions: Ms. Salazar with an extensive past medical history. Past medical history past medical history of angiodysplasia of bowel syndrome, COPD, GERD, insulin- dependent diabetes, cerebrovascular disease, and peripheral artery disease. She sees Dr. Royal for the angiodysplasia with chronic anemia. Until a few months ago she got frequent blood transfusions but then was started on octreotide injections. Ms. Salazar was admitted with shortness of breath, she has a history of COPD, was noted to be in CHF exacerbation, she was evaluated by cardiology, and pulmonary. She was treated with diuretics, bronchodilators, started on a low-dose beta-gia. Patient tolerating diet, stable for discharge to home with follow-up appointment with primary care physician, follow-up with cardiology, pulmonary, Dr. Royal oncology after discharge. Plan to initiate home oxygen prior to discharge. PROBLEM: Shortness of breath secondary to acute congestive heart failure Congestive heart failure improved with diuretic Mildly impaired ejection fraction COPD plan to initiate home O2 Acute kidney injury likely secondary to prerenal congestive heart failure Elevated troponin Follow-up with cardiology after discharge Follow-up with pulmonary after discharge Continue home medicines as previously prescribed GOAL: Clear understanding of disease process INSTRUCTIONS: Physician Discharge Instructions: -Follow-up with PCP in 1 to 2 weeks -Please call if any questions regarding hospital stay -Please call nursing station at [phone] if any nursing or medication questions -Return to the emergency room if symptoms worsen Diet: ADA, low sodium Activity: Fall precautions Diet: Low sodium Activity: Ad darrel Followup: Matthew Lino MD [ACTIVE - CAN ADMIT] - Valery Vela MD [ACTIVE - CAN ADMIT] - Isra Rondon DO [Primary Care Provider] - Beltran Patel MD [ACTIVE - CAN ADMIT] -
[2023-06-28] MEDS: POTASSIUM CL SA 10 MEQ TAB PO ONE (08:16)
[2023-06-28 12:58] VITALS: TEMP 97.3
[2023-06-28] MEDS ORDERED: D10W 125 ML IV PRN (13:04)
--- NOTE | 2023-06-28 13:45 | EKG ---
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
[2023-06-28 16:41] VITALS: BP 138/68
[2023-06-28 17:53] VITALS: O2SAT 97
--- NOTE | 2023-06-28 18:33 | PN ---
Date of Progress Note: 06/28/2023 Subjective: Seen by bedside. Clinically doing well. No orthopnea. Review of Systems: No chest pain, shortness of breath, orthopnea, cough. No nausea, vomiting, diarrhea. All other syst ems reviewed are negative. Physical Examination: Vital signs: Reviewed. Head and Neck: Pupils are equal, reactive to light. Intact eye movements. No JVD. No cervical lym phadenopathy. Neck: Supple. Thyroid is not enlarged. Lungs: Clear to auscultation bilaterally. No rhonchi, rales, or crackles. No accessory muscle use. Heart: Regular. No extra sounds. Abdomen: Soft, nontender. Bowel sounds positive. No organomegaly. No masses or hernia. No rigidi ty or rebound. Extremities: No clubbing, cyanosis. No edema. Neurologic: Alert, awake, oriented x3. No acute focal deficits appreciated. Lymph nodes: No cervical lymphadenopathy. Investigations: Labs reviewed. Assessment/recommendation: 1.Acute on chronic diastolic heart failure exacerbation. She appears to be doing much better. Swit ch her to oral Lasix at 20 mg daily and she also is on Aldactone. She can be released with following low-salt diet. Follow up with me in the office within a week post discharge. 2.Mild to moderate mitral valve regurgitation. We will monitor with echo periodically. 3.Hypertension. Blood pressure is controlled. Continue current therapy. SR/MODL Voice ID: [id number] Report ID: [id number]
[2023-06-29] MEDS ORDERED: SPIRONOLACTONE 25 MG TABLET PO SCH (09:00)
== END 2023-06-28 17:34 | disposition home health service (06) | DRG 291 ==
LOC: ER 01:36 → ERHOLD 05:24 → 3RD-ICU 13:51 → 2ND 06-26 02:38
PROVIDERS: ADMIT Internal Medicine; ATTEND Hospitalist
PROC: 4A033R1 Measurement of Arterial Saturation, Peripheral, Percutaneous Approach (ICD-10-PCS; principal; 2023-06-25)
DX: I11.0 Hypertensive heart disease with heart failure (principal); I50.31 Acute diastolic (congestive) heart failure; J44.1 Chronic obstructive pulmonary disease with (acute) exacerbation; N17.9 Acute kidney failure, unspecified; I24.89 Other forms of acute ischemic heart disease; E11.51 Type 2 diabetes mellitus with diabetic peripheral angiopathy without gangrene; E88.09 Other disorders of plasma-protein metabolism, not elsewhere classified; I48.91 Unspecified atrial fibrillation; D64.9 Anemia, unspecified; I34.0 Nonrheumatic mitral (valve) insufficiency; K55.20 Angiodysplasia of colon without hemorrhage; K21.9 Gastro-esophageal reflux disease without esophagitis; F17.200 Nicotine dependence, unspecified, uncomplicated; R79.89 Other specified abnormal findings of blood chemistry; Z66 Do not resuscitate; Z23 Encounter for immunization; Z88.5 Allergy status to narcotic agent; Z88.8 Allergy status to other drugs, medicaments and biological substances; Z88.0 Allergy status to penicillin; Z88.2 Allergy status to sulfonamides; Z95.1 Presence of aortocoronary bypass graft; Z79.4 Long term (current) use of insulin; Z90.49 Acquired absence of other specified parts of digestive tract; Z11.52 Encounter for screening for COVID-19; Z86.711 Personal history of pulmonary embolism; Z79.899 Other long term (current) drug therapy
CPT/HCPCS: 36415; 36600; 71045; 80048; 80053; 80076; 82550; 82805; 82947; 83690; 83735; 83880; 84132; 84443; 84484; 85025; 85610; 85730; 86850; 86870; 86900; 86901; 86920; 86922; 87040; 87804; 87811; 90471; 90732; 93005; 93306; 94760; 96365; 96374; 96375; 99285; C9113; J1815; J1940; J2930; J3535; J7605; J7613; J7644; Q0138; Q2035

== ENCOUNTER 2023-11-10 18:10 | Inpatient (IN) | payer MEDICARE ==
--- NOTE | 2023-11-10 20:01 | RAD REPORT ---
EXAM DESCRIPTION: Kylie Single View11/10/2023 6:57 pm CLINICAL HISTORY: Cough COMPARISON: June 2023 FINDINGS: The lungs appear clear of acute infiltrate. The heart is normal size. Neurostimulator dev ice in place IMPRESSION: No acute abnormalities displayed
[2023-11-10 20:07] LABS: Absolute Eosinophils 0.3 K/uL (0-0.5); Absolute Lymphocytes (CBC) 1.1 K/uL (0.7-4.9); Absolute Monocytes 0.6 K/uL (0.1-1.3); Absolute Neutrophil 5.8 K/uL (1.8-8.0); Basophils % 0.4 % (0-1.3); Eosinophils % 4.2 % (0-4.4); Lymphocytes % 14.3 % (15.3-44.8); MCH 30.6 pg (27.0-35.0); MCV 95.6 fL (80-100); MPV 8.6 fL (7.6-11.3); Monocytes % 8.1 % (3.3-12.3); Nucleated Red Blood Cells % 0.1 % (0-0); Platelets 364 thou/uL (152-406); RBC Red Blood Cell Count 2.62 M/uL (3.86-4.86); Red Cell Distribution Width 16.3 % (12.1-15.2)
[2023-11-10] MEDS ORDERED: PANTOPRAZOLE 40 MG INJ ONE (20:09)
[2023-11-10] MEDS ORDERED: THIAMINE 200 MG/2 ML INJ ONE (20:10)
[2023-11-10 20:12] LABS: PT Prothrombin Time 11.3 SECONDS (9.4-12.5); Protime INR 1.01
[2023-11-10] MEDS ORDERED: MULTIVITAMINS 10 ML VIAL (INJ) IV ONE (20:13)
[2023-11-10] MEDS ORDERED: FOLIC ACID 5 MG/ML VIAL ONE (20:13)
[2023-11-10] MEDS ORDERED: NA CHLORIDE 0.9% 500 ML ONE (20:14)
[2023-11-10] MEDS ORDERED: NA CHLORIDE 0.9% 1,000 ML ONE (20:15)
[2023-11-10] MEDS ORDERED: NA CHLORIDE 0.9% 50 ML ONE (20:15)
[2023-11-10 20:30] LABS: ALT/SGPT 18 U/L (13-56); AST/SGOT 14 U/L (15-37); Albumin 3.1 g/dL (3.4-5.0); Alkaline Phosphatase 64 U/L (45-117); Anion Gap 11.1 mEq/L (5.0-15.0); BUN Blood Urea Nitrogen 35 mg/dL (7-18); Bicarbonate 26 mEq/L (21-32); Bilirubin Total 0.2 mg/dL (0.2-1.0); Globulin 3.1 g/dL (2.3-3.5); Glomerular Filtration Rate 30 ml/min (=/>90); Glucose Level 97 mg/dL (74-106); Lipase 54 U/L (13-75); Magnesium 2.7 mg/dL (1.6-2.4); NT PRO-BNP 307 pg/mL (<450); Potassium 4.1 mEq/L (3.5-5.1); Protein, Total 6.2 g/dL (6.4-8.2); Sodium Level 138 mEq/L (136-145); Troponin High Sensitivity 7.9 pg/mL (<58.9)
[2023-11-10 20:32] LABS: Bilirubin Direct < 0.2 mg/dL (0-0.2)
--- NOTE | 2023-11-10 20:54 | RAD REPORT ---
EXAM DESCRIPTION: CTSpine Lumbar Wo Con11/10/2023 8:29 pm CLINICAL HISTORY: Numbness COMPARISON: None TECHNIQUE: Computed axial tomography lumbar spine was obtained with coronal and sagittal reconstruct ion. All CT scans are performed using dose optimization technique as appropriate and may include automated exposure control or mA/KV adjustment according to patient size. FINDINGS: Postsurgical changes involve the lumbar spine. A neurostimulator device enters spinal canal. Moderate scoliosis involves the spine. Slight posterior subluxation of L1 on L2. Mild posterior subluxation of L2 on L3. Mild lateral sublux ation of L2 on L3. Disc bulge, osteophytes and facet hypertrophy L3-4 results in moderate to marked narrowing of the rig ht neural foramina Osteophytes, facet hypertrophy disc bulge at L4-5 resulting marked narrowing of the left neural garett amadou and moderate narrowing the right neural foramina Mild to moderate spondylosis involves the remainder of the lumbar spine. No high-grade central stenosis seen. No fracture or dislocation noted Calcification abdominal aorta just below superior mesenteric artery results in a severe stenosis Calcification proximal SMA results in a severe stenosis or occlusion IMPRESSION: Postsurgical changes lumbar spine. Spondylosis L3-4 results in moderate to marked right foraminal stenosis Spondylosis L4-5 results in marked left foraminal stenosis Calcification abdominal aorta just below superior mesenteric artery results in a severe stenosis Calcification proximal SMA results in a severe stenosis or occlusion
--- NOTE | 2023-11-10 22:41 | ER ---
Nurse's Notes [facility] Name: Sia Salazar Age: 77 yrs Sex: Female : 1945 Arrival Date: 11/10/2023 Time: 18:10 Bed 19 Private MD: Diagnosis: Acute symptomatic anemia, acute on chronic anemia, history of angiodysplasia, positive for human blood antigens Presentation: 11/09 18:25 Chief complaint: Patient states: Pt states unable to move alyssa legs/hips and has pain to dd2 alyssa legs. Pt states this has been going on for months and worsened last night. Coronavirus screen: At this time, the client does not indicate any symptoms associated with coronavirus-19. Ebola Screen: No symptoms or risks identified at this time. Initial Sepsis Screen: Does the patient meet any 2 criteria? No. Patient's initial sepsis screen is negative. Does the patient have a suspected source of infection? No. Patient's initial sepsis screen is negative. Risk Assessment: Do you want to hurt yourself or someone else? Patient reports no desire to harm self or others. Onset of symptoms is unknown. 18:25 Method Of Arrival: Wheelchair dd2 18:25 Acuity: GREGG 3 dd2 Triage Assessment: 18:29 General: Appears in no apparent distress. General: Appears Behavior is calm, dd2 cooperative. Pain: Complains of pain in right leg and left leg, Rt/Lt hip. Historical: - Allergies: 18:29 Actos; dd2 18:29 Bactrim; dd2 18:29 Clindamycin; dd2 18:29 Codeine; dd2 18:29 Crestor; dd2 18:29 Darvocet-N 100; dd2 18:29 Erythromycin; dd2 18:29 Glimepiride; dd2 18:29 Glipizide; dd2 18:29 Iodinated Contrast Media - IV Dye; dd2 18:29 Januvia; dd2 18:29 Lipitor; dd2 18:29 metformin; dd2 18:29 metronidazole; dd2 18:29 Morphine; dd2 18:29 PENICILLINS; dd2 18:29 Wellbutrin; dd2 18:29 Sulfa (Sulfonamide Antibiotics); dd2 - PMHx: 18:29 angiodysplasia; bowel AVMs; bronchospastic airway disease; celiac artery stenosis; dd2 Cerebrovascular disease; chronic mesenteric ischemia; chronic pulmonary embolism; constipation (SBO); COPD; Depression; Diabetes - IDDM; GERD; ibs; ischemic bowel disease; peripheral artery disease; SBO; - PSHx: 18:29 Cholecystectomy; Coronary artery bypass graft; Tonsillectomy; dd2 - Immunization history:: Adult Immunizations unknown. - Infectious Disease History:: Denies. - Social history:: Smoking status: Patient reports the use of cigarette tobacco products, smokes one-half pack cigarettes per day. - Family history:: not pertinent. Screenin:39 [facility] ED Fall Risk Assessment (Adult) History of falling in the last 3 months, al5 including since admission No falls in past 3 months (0 pts) Confusion or Disorientation No (0 pts) Intoxicated or Sedated No (0 pts) Impaired Gait No (0 pts) Mobility Assist Device Used No (0 pt) Altered Elimination No (0 pt) Score/Fall Risk Level 0 - 2 = Low Risk Oriented to surroundings, Maintained a safe environment, Hourly rounding (assess needs \T\ fall precautionary measures) done. Abuse screen: Denies threats or abuse. Denies injuries from another. Nutritional screening: No deficits noted. Tuberculosis screening: No symptoms or risk factors identified. Assessment: 19:20 General: Appears in no apparent distress. Behavior is calm, cooperative. Pain: al5 Complains of pain in left leg and right leg and lumbar area. 19:20 Neuro: Level of Consciousness is awake, alert, obeys commands, Oriented to person, al5 place, time, situation. Cardiovascular: Patient's skin is warm and dry. Respiratory: Airway is patent Respiratory effort is even, unlabored, Respiratory pattern is regular, symmetrical. GI: No signs and/or symptoms were reported involving the gastrointestinal system. : No signs and/or symptoms were reported regarding the genitourinary system. EENT: No signs and/or symptoms were reported regarding the EENT system. Derm: Skin is intact, Skin is pink, warm \T\ dry. normal. Musculoskeletal: Reports pain in left leg and right leg and lumbar area. 21:40 Reassessment: Patient appears in no apparent distress at this time. No changes from al5 previously documented assessment. Patient and/or family updated on plan of care and expected duration. Pain level reassessed. Patient is alert, oriented x 3, equal unlabored respirations, skin warm/dry/pink. 22:50 Reassessment: Patient appears in no apparent distress at this time. No changes from al5 previously documented assessment. Patient and/or family updated on plan of care and expected duration. Pain level reassessed. Patient is alert, oriented x 3, equal unlabored respirations, skin warm/dry/pink. 11/10 00:45 Reassessment: patient admitted to [facility], see vitals and assessments in [facility]. al5 Vital Signs: 11/09 18:25 BP 105 / 47; Pulse 84; Resp 16; Temp 97; Pulse Ox 98% ; Weight 61.23 kg; Height 5 ft. 2 dd2 in. ; 19:00 BP 117 / 40; Pulse 76; Resp 16; Pulse Ox 96% on R/A; al5 19:30 BP 134 / 42; Pulse 75; Resp 16; Pulse Ox 98% on R/A; al5 20:00 BP 119 / 42; Pulse 70; Resp 16; Pulse Ox 95% on R/A; al5 20:30 BP 109 / 41; Pulse 70; Resp 16; Pulse Ox 96% on R/A; al5 21:00 BP 119 / 37; Pulse 73; Resp 16; Pulse Ox 96% on R/A; al5 21:30 BP 109 / 35; Pulse 66; Resp 16; Pulse Ox 96% on R/A; al5 22:00 BP 127 / 35; Pulse 72; Resp 16; Pulse Ox 95% on R/A; al5 23:00 BP 130 / 42; Pulse 72; Resp 16; Pulse Ox 98% on R/A; al5 11/10 00:00 BP 132 / 38; Pulse 66; Resp 16; Pulse Ox 95% on R/A; al5 11/09 18:25 Body Mass Index 24.69 (61.23 kg, 157.48 cm) dd2 [place] Coma Score: 11/09 18:51 Eye Response: spontaneous(4). Motor Response: obeys commands(6). Verbal Response: nelly oriented(5). Total: 15. ED Course: 18:14 Patient arrived in ED. ra3 18:29 Triage completed. dd2 18:29 Arm band placed on right wrist. Patient placed in an exam room, on a stretcher, on dd2 pulse oximetry, Patient notified of wait time. 18:34 Roderick Luna MD is Attending Physician. nelly 18:59 XRAY Chest (1 view) In Process Unspecified. EDMS 19:46 Morena Griffiths, RN is Primary Nurse. al5 19:46 Patient has correct armband on for positive identification. Bed in low position. Call al5 light in reach. Side rails up X 1. Provided Education on: processes and procedures. 19:47 Missed attempt(s): 22 gauge in right antecubital area. Bleeding controlled, band aid al5 applied, catheter tip intact. 19:47 No provider procedures requiring assistance completed. Missed attempt(s): 22 gauge in al5 right forearm. Bleeding controlled, band aid applied, catheter tip intact. 19:50 Inserted Missed attempt(s): 22 gauge in left forearm. vc1 20:01 Inserted saline lock: 22 gauge in left forearm, using aseptic technique. Blood vc1 collected. 20:10 Attending Physician role handed off by Roderick Luna MD sp4 20:10 Harjeet Nye MD is Attending Physician. sp4 20:31 CT Lumbar Spine Wo Con In Process Unspecified. EDMS 22:39 Eulalia Henson MD is Hospitalizing Provider. sp4 23:25 Door closed. Noise minimized. Lights dimmed. Warm blanket given. kmf 23:25 applied pt PureWick. kmf 11/10 00:51 Patient admitted, IV remains in place. al5 Administered Medications: 11/09 21:01 Drug: foLIC Acid IVPB 1 mg IVPB once Route: IVPB; Site: left forearm; al5 11/10 00:48 Follow up: Response: No adverse reaction; IV Status: Completed infusion; IV Intake: [id number] 11/09 21:01 Not Given (Patient Refused): fentanyl (pf)50 mcg IVP once al5 21:01 Not Given (Patient Refused): ondansetron 4 mg IVP once; over 2 minutes al5 21:02 Drug: Thiamine IV 100 mg IV at bolus once Route: IV; Rate: bolus; Site: left forearm; al5 11/10 00:48 Follow up: Response: No adverse reaction; IV Status: Completed infusion; IV Intake: [id number] 11/09 21:11 Drug: NS 0.9% IV 500 ml IV at bolus once Route: IV; Rate: bolus; Site: left forearm; al5 11/10 00:46 Follow up: Response: No adverse reaction; IV Status: Completed infusion; IV Intake: al5 500ml 11/09 21:12 Drug: Pantoprazole IVP 40 mg IVP once Route: IVP; Site: left forearm; al5 11/10 00:46 Follow up: Response: No adverse reaction al5 11/09 21:12 Drug: Banana Bag - (Multivitamin IV 1 amp, NS 0.9% IV 1000 ml, Thiamine IV 100 mg, al5 foLIC Acid IVPB 1 mg) IV at 125 ml/hr once Route: IV; Rate: 125 ml/hr; Site: left forearm; 11/10 00:46 Follow up: Response: No adverse reaction; Other al5 Medication: 11/09 19:48 VIS not applicable for this client. al5 Intake: 11/10 00:46 IV: 500ml; Total: 500ml. al5 00:48 IV: 50ml; Total: 550ml. al5 00:48 IV: 50ml; Total: 600ml. al5 Outcome: 11/09 22:40 Decision to Hospitalize by Provider. sp4 11/10 00:52 Admitted to ER Hold. Please see [facility] for further documentation. al5 Condition: good Instructed on the need for admit, 05:56 Patient left the ED. al5 Signatures: Dispatcher [employer] EDMS Roderick Luna MD MD cha Calcote, Vanessa, RN RN vc1 Harjeet Nye MD MD sp4 Ghazal Mohamud Ruby ra3 Morena Griffiths RN RN al5 VI CABRAL RN RN dd2
--- NOTE | 2023-11-10 22:41 | EDPHYS ---
Physician Documentation [facility] Name: Sia Salazar Age: 77 yrs Sex: Female : 1945 Arrival Date: 11/10/2023 Time: 18:10 Bed 19 Private MD: ED Physician Harjeet Nye HPI: 11/09 18:51 This 77 yrs old Female presents to ER via Wheelchair with complaints of Can't nelly walk - unable to move leg/hips. 18:51 The patient's problem is reported as weakness, in the right lower extremity, in the nelly left lower extremity. Onset: The symptoms/episode began/occurred 2 day(s) ago. Duration: The episodes are intermittent. Context: Possible contributing factors include: gi bleed, back problems. The symptoms are alleviated by nothing. The symptoms are aggravated by standing, walking. Severity of symptoms: At their worst the symptoms were moderate in the emergency department the symptoms are unchanged. Patient's baseline: Neuro: alert and fully oriented. The patient has experienced similar episodes in the past, multiple times. 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 Devries for angiodysplasia with chronic anemia. Patient was also positive for human blood antibodies. Patient in the past has had octreotide injections, no history of CHF. Patient presents with worsening generalized weakness with difficulty ambulation. Patient care from Dr. Luna earlier this evening.. Historical: - Allergies: 18:29 Actos; dd2 18:29 Bactrim; dd2 18:29 Clindamycin; dd2 18:29 Codeine; dd2 18:29 Crestor; dd2 18:29 Darvocet-N 100; dd2 18:29 Erythromycin; dd2 18:29 Glimepiride; dd2 18:29 Glipizide; dd2 18:29 Iodinated Contrast Media - IV Dye; dd2 18:29 Januvia; dd2 18:29 Lipitor; dd2 18:29 metformin; dd2 18:29 metronidazole; dd2 18:29 Morphine; dd2 18:29 PENICILLINS; dd2 18:29 Wellbutrin; dd2 18:29 Sulfa (Sulfonamide Antibiotics); dd2 - PMHx: 18:29 angiodysplasia; bowel AVMs; bronchospastic airway disease; celiac artery stenosis; dd2 Cerebrovascular disease; chronic mesenteric ischemia; chronic pulmonary embolism; constipation (SBO); COPD; Depression; Diabetes - IDDM; GERD; ibs; ischemic bowel disease; peripheral artery disease; SBO; - PSHx: 18:29 Cholecystectomy; Coronary artery bypass graft; Tonsillectomy; dd2 - Immunization history:: Adult Immunizations unknown. - Infectious Disease History:: Denies. - Social history:: Smoking status: Patient reports the use of cigarette tobacco products, smokes one-half pack cigarettes per day. - Family history:: not pertinent. ROS: 18:51 Constitutional: Negative for fever, chills, and weight loss, Eyes: Negative for injury, nelly pain, redness, and discharge, ENT: Negative for injury, pain, and discharge, Neck: Negative for injury, pain, and swelling, Cardiovascular: Negative for chest pain, palpitations, and edema, Respiratory: Negative for shortness of breath, cough, wheezing, and pleuritic chest pain, Abdomen/GI: Negative for abdominal pain, nausea, vomiting, diarrhea, and constipation, : Negative for injury, bleeding, discharge, and swelling, Skin: Negative for injury, rash, and discoloration, Neuro: Negative for headache, weakness, numbness, tingling, and seizure, Psych: Negative for depression, anxiety, suicide ideation, homicidal ideation, and hallucinations, Allergy/Immunology: Negative for hives, rash, and allergies, Endocrine: Negative for neck swelling, polydipsia, polyuria, polyphagia, and marked weight changes, Hematologic/Lymphatic: Negative for swollen nodes, abnormal bleeding, and unusual bruising, 18:51 Back: Positive for decreased range of motion, of the lumbar area, Exam: 18:51 Constitutional: This is a well developed, well nourished patient who is awake, alert, nelly and in no acute distress. Head/Face: Normocephalic, atraumatic. Eyes: Pupils equal round and reactive to light, extra-ocular motions intact. Lids and lashes normal. Conjunctiva and sclera are non-icteric and not injected. Cornea within normal limits. Periorbital areas with no swelling, redness, or edema. ENT: Nares patent. No nasal discharge, no septal abnormalities noted. Tympanic membranes are normal and external auditory canals are clear. Oropharynx with no redness, swelling, or masses, exudates, or evidence of obstruction, uvula midline. Mucous membranes moist. Neck: Trachea midline, no thyromegaly or masses palpated, and no cervical lymphadenopathy. Supple, full range of motion without nuchal rigidity, or vertebral point tenderness. No Meningismus. Chest/axilla: Normal chest wall appearance and motion. Nontender with no deformity. No lesions are appreciated. Cardiovascular: Regular rate and rhythm with a normal S1 and S2. No gallops, murmurs, or rubs. Normal PMI, no JVD. No pulse deficits. Respiratory: Lungs have equal breath sounds bilaterally, clear to auscultation and percussion. No rales, rhonchi or wheezes noted. No increased work of breathing, no retractions or nasal flaring. Abdomen/GI: Soft, non-tender, with normal bowel sounds. No distension or tympany. No guarding or rebound. No evidence of tenderness throughout. Back: No spinal tenderness. No costovertebral tenderness. Full range of motion. Female : Normal external genitalia. Skin: Warm, dry with normal turgor. Normal color with no rashes, no lesions, and no evidence of cellulitis. Psych: Awake, alert, with orientation to person, place and time. Behavior, mood, and affect are within normal limits. 18:51 Back: pain, that is mild, that is moderate, ROM is painful, normal spinal alignment noted, CVA tenderness, is absent, muscle spasm, is not present, 18:51 Musculoskeletal/extremity: ROM: limited active range of motion due to pain, limited passive range of motion due to pain, Circulation is intact in all extremities. the right leg and left leg decreased sensation, Compartment Syndrome exam of affected extremity: is normal. Weight bearing: is unable to bear weight, DVT Exam: No signs of deep vein thrombosis. no pain, no swelling, no tenderness, negative Homans' sign noted on exam, no appreciated bluish discoloration, no erythema, 18:57 Radiologist reports: see report nelly 11/10 04:56 ECG was reviewed by the Attending Physician. EKG at 0 119 normal sinus rhythm rate 67, sp4 Vital Signs: 11/09 18:25 BP 105 / 47; Pulse 84; Resp 16; Temp 97; Pulse Ox 98% ; Weight 61.23 kg; Height 5 ft. 2 dd2 in. ; 19:00 BP 117 / 40; Pulse 76; Resp 16; Pulse Ox 96% on R/A; al5 19:30 BP 134 / 42; Pulse 75; Resp 16; Pulse Ox 98% on R/A; al5 20:00 BP 119 / 42; Pulse 70; Resp 16; Pulse Ox 95% on R/A; al5 20:30 BP 109 / 41; Pulse 70; Resp 16; Pulse Ox 96% on R/A; al5 21:00 BP 119 / 37; Pulse 73; Resp 16; Pulse Ox 96% on R/A; al5 21:30 BP 109 / 35; Pulse 66; Resp 16; Pulse Ox 96% on R/A; al5 22:00 BP 127 / 35; Pulse 72; Resp 16; Pulse Ox 95% on R/A; al5 23:00 BP 130 / 42; Pulse 72; Resp 16; Pulse Ox 98% on R/A; al5 11/10 00:00 BP 132 / 38; Pulse 66; Resp 16; Pulse Ox 95% on R/A; al5 11/09 18:25 Body Mass Index 24.69 (61.23 kg, 157.48 cm) dd2 Newton Coma Score: 11/09 18:51 Eye Response: spontaneous(4). Motor Response: obeys commands(6). Verbal Response: nelly oriented(5). Total: 15. MDM: 18:35 Patient medically screened. nelly 18:55 Differential diagnosis: CVA. Data reviewed: vital signs, nurses notes, lab test nelly result(s), EKG, radiologic studies, CT scan, plain films. Consideration of Admission/Observation Escalation of care including admission/observation considered. I considered the following discharge prescriptions or medication management in the emergency department Medications were administered in the Emergency Department. See MAR. Independent interpretation of the following test(s) in the Emergency Department EKG: See my EKG interpretation above. Test considered but Not performed: MRI: no mri lumbar. Historians other than the Patient: Daughter/Son: daughter well informed. Care significantly affected by the following chronic conditions: celiac stenosis, gi avm's. 18:56 TNKase (Tenecteplase) Screening: Not Applicable. nelly 22:30 ED course: EXAM DESCRIPTION: CTSpine Lumbar Wo Con11/10/2023 8:29 pm CLINICAL HISTORY: sp4 Numbness COMPARISON: None TECHNIQUE: Computed axial tomography lumbar spine was obtained with coronal and sagittal reconstruction. All CT scans are performed using dose optimization technique as appropriate and may include automated exposure control or mA/KV adjustment according to patient size. FINDINGS: Postsurgical changes involve the lumbar spine. A neurostimulator device enters spinal canal. Moderate scoliosis involves the spine. Slight posterior subluxation of L1 on L2. Mild posterior subluxation of L2 on L3. Mild lateral subluxation of L2 on L3. Disc bulge, osteophytes and facet hypertrophy L3-4 results in moderate to marked narrowing of the right neural foramina Osteophytes, facet hypertrophy disc bulge at L4-5 resulting marked narrowing of the left neural foramina and moderate narrowing the right neural foramina Mild to moderate spondylosis involves the remainder of the lumbar spine. No high-grade central stenosis seen. No fracture or dislocation noted Calcification abdominal aorta just below superior mesenteric artery results in a severe stenosis Calcification proximal SMA results in a severe stenosis or occlusion IMPRESSION: Postsurgical changes lumbar spine. Spondylosis L3-4 results in moderate to marked right foraminal stenosis Spondylosis L4-5 results in marked left foraminal stenosis Calcification abdominal aorta just below superior mesenteric artery results in a severe stenosis Calcification proximal SMA results in a severe stenosis or occlusion. 22:44 ED course: Rectal exam is revealing no signs of active bleeding, no melena no bright sp4 red blood no dark red blood. At this time secondary to generalized weakness patient warrants admission for transfusion of 2 units of blood. Blood may take some time because patient is positive for human blood antibodies. At this time we will request admitting services to admit patient for observation for transfusion of 2 units of blood. 2 units of blood were ordered in the emergency room.. 11/09 18:49 Order name: Type And Screen [facility] 11/09 22:41 Interpretation: ANTIBODY SCREEN POSITIVE. sp4 11/09 18:49 Order name: Basic Metabolic Panel; Complete Time: 20:43 [facility] 11/09 18:49 Order name: CBC with Diff; Complete Time: 20:11 [facility] 11/09 18:49 Order name: LFT's; Complete Time: 20:43 [facility] 11/09 18:49 Order name: Magnesium; Complete Time: 20:43 [facility] 11/09 18:49 Order name: NT PRO-BNP; Complete Time: 20:43 [facility] 11/09 18:49 Order name: PT-INR; Complete Time: 20:21 [facility] 11/09 18:49 Order name: Troponin HS; Complete Time: 20:43 [facility] 11/09 18:49 Order name: Lipase; Complete Time: 20:43 [facility] 11/09 18:49 Order name: Urinalysis w/ reflexes [facility] 11/09 19:06 Order name: Packed RBC Leukored [facility] 11/09 20:21 Order name: Ferritin; Complete Time: 01:19 [facility] 11/09 20:21 Order name: TIBC; Complete Time: 01:19 [facility] 11/09 20:21 Order name: B12; Complete Time: 01: [facility] 11/09 21:07 Order name: Antibody Identification [facility] 11/09 22:35 Order name: PRBC sp4 11/09 22:37 Order name: ABO/RH typing [facility] 11/09 22:37 Order name: Antibody Screen [facility] 11/10 05:12 Order name: CBC with Automated Diff [facility] 11/10 05:19 Order name: Retic Count [facility] 11/10 05:31 Order name: Comprehensive Metabolic Panel [facility] 11/10 05:31 Order name: Magnesium [facility] 11/10 05:53 Order name: Transferrin Sat/Iron Binding [facility] 11/10 05:53 Order name: Ferritin [facility] 11/10 05:53 Order name: Vitamin B12 Level [facility] 11/09 18:49 Order name: XRAY Chest (1 view); Complete Time: 20:10 [facility] 11/09 18:49 Order name: CT Lumbar Spine Wo Con; Complete Time: 22:06 [facility] 11/09 23:11 Order name: CONS Physician Consult [facility] 11/09 18:49 Order name: Cardiac monitoring; Complete Time: 21:03 [facility] 11/09 18:49 Order name: EKG - Nurse/Tech; Complete Time: 01:23 [facility] 11/09 18:49 Order name: IV Saline Lock; Complete Time: 20:28 [facility] 11/09 18:49 Order name: Labs collected and sent; Complete Time: 20:28 [facility] 11/09 18:49 Order name: O2 Per Protocol; Complete Time: 20:28 [facility] 11/09 18:49 Order name: O2 Sat Monitoring; Complete Time: 20:28 [facility] EC/15 04:56 Rate is 67 beats/min. Rhythm is regular, Normal Sinus Rhythm. QRS [place] is Normal. MD sp4 interval is prolonged. QRS interval is normal. QT interval is normal. No Q waves. T waves are Normal. No ST changes noted. Clinical impression: No evidence of ischemia. Interpreted by me. Reviewed by me. Administered Medications: 11/09 21:01 Drug: foLIC Acid IVPB 1 mg IVPB once Route: IVPB; Site: left forearm; al5 11/10 00:48 Follow up: Response: No adverse reaction; IV Status: Completed infusion; IV Intake: [id number] 11/09 21:01 Not Given (Patient Refused): fentanyl (pf)50 mcg IVP once al5 21:01 Not Given (Patient Refused): ondansetron 4 mg IVP once; over 2 minutes 21:02 Drug: Thiamine IV 100 mg IV at bolus once Route: IV; Rate: bolus; Site: left forearm; al5 11/10 00:48 Follow up: Response: No adverse reaction; IV Status: Completed infusion; IV Intake: [id number] 11/09 21:11 Drug: NS 0.9% IV 500 ml IV at bolus once Route: IV; Rate: bolus; Site: left forearm; al5 11/10 00:46 Follow up: Response: No adverse reaction; IV Status: Completed infusion; IV Intake: al5 500ml 11/09 21:12 Drug: Pantoprazole IVP 40 mg IVP once Route: IVP; Site: left forearm; al5 11/10 00:46 Follow up: Response: No adverse reaction al5 11/09 21:12 Drug: Banana Bag - (Multivitamin IV 1 amp, NS 0.9% IV 1000 ml, Thiamine IV 100 mg, al5 foLIC Acid IVPB 1 mg) IV at 125 ml/hr once Route: IV; Rate: 125 ml/hr; Site: left forearm; 11/10 00:46 Follow up: Response: No adverse reaction; Other al5 Disposition Summary: 11/10/23 22:40 Hospitalization Ordered Notes: Hospitalization Status: Observation sp4 Provider: Eulalia Henson sp4 Condition: Stable sp4 Problem: new sp4 Symptoms: have improved sp4 Bed/Room Type: Standard sp4 Location: Telemetry/MedSurg (Inpatient)(11/11/23 03:22) clint Room Assignment: 411(11/11/23 03:22) Diagnosis - Acute symptomatic anemia, acute on chronic anemia, history of angiodysplasia, sp4 positive for human blood antigens Discharge Instructions: - Discharge Summary Sheet nelly - Anemia nelly - Acute Back Pain, Adult nelly - Chronic Back Pain nelly - Musculoskeletal Pain nelly - Paresthesia nelly - Paresthesia, [id number]-Ehcn nelly Forms: - Medication Reconciliation Form sp4 - SBAR form sp4 - Leadership Thank You Letter sp4 Prescriptions: - Folic Acid 1 mg Oral Tablet - take 1 tablet ORAL route once daily; 30 tablet; Refills: 0, Product Selection nelly Permitted Signatures: Dispatcher [employer] Sonia Ruiz RN RN kl Anderson, Corey, MD MD cha Calcote, Vanessa, RN RN vc1 Harjeet Nye MD MD sp4 Mornea Griffiths RN RN al5 VI CABRAL RN RN dd2 Corrections: (The following items were deleted from the chart) 11/09 18:50 18:50 BASIC METABOLIC PANEL+C.LAB.BRZ ordered. EDMS EDMS 18:50 18:50 CBC+H.LAB.BRZ ordered. EDMS EDMS 18:50 18:50 HEPATIC FUNCTION+C.LAB.BRZ ordered. EDMS EDMS 18:50 18:50 MAGNESIUM+C.LAB.BRZ ordered. EDMS EDMS 18:50 18:50 PROBNP+C.LAB.BRZ ordered. EDMS EDMS 18:50 18:50 PROTIME (+INR)+COAG.LAB.BRZ ordered. EDMS EDMS 18:50 18:50 Troponin High Sensitivity+C.LAB.BRZ ordered. EDMS EDMS 18:50 18:50 LIPASE+C.LAB.BRZ ordered. EDMS EDMS 18:50 18:50 Urinalysis+U.LAB.BRZ ordered. EDMS EDMS 18:50 18:50 TYPE AND SCREEN+BB.LAB.BRZ ordered. EDMS EDMS 18:50 18:50 Chest Single View+RAD.RAD.BRZ ordered. EDMS EDMS 18:50 18:50 Spine Lumbar Wo Con+CT.RAD.BRZ ordered. EDMS EDMS 20:21 20:21 FERRITIN+C.LAB.BRZ ordered. EDMS EDMS 20:21 20:21 FERRITIN+C.LAB.BRZ ordered. EDMS EDMS 20:21 20:21 TRANSFERRIN SAT/IRON BINDING+C.LAB.BRZ ordered. EDMS EDMS 20:21 20:21 VITAMIN B12+C.LAB.BRZ ordered. EDMS EDMS 22:55 22:40 Telemetry/MedSurg (observation) sp4 vc1 22:55 22:40 sp4 vc1 11/10 03:22 11/09 22:55 [facility] ER HOLD vc1 kl 11/10 03:22 11/09 [facility] [facility]
[2023-11-10 23:01] LABS: Ferritin 30.9 ng/mL (8-388)
[2023-11-10] MEDS ORDERED: CYCLOBENZAPRINE 10 MG TAB PO PRN (23:17)
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
[2023-11-10 23:52] VITALS: BMI 24.7
[2023-11-10] MEDS ORDERED: IPRATROPIUM BROM 0.5MG/2.5ML ONE (23:57)
[2023-11-10] MEDS ORDERED: ALBUTEROL 2.5 MG/3 ML NEB SOL ONE (23:57)
[2023-11-11] MEDS: IPRATROPIUM BROM 0.5MG/2.5ML NEB PRN
[2023-11-11] MEDS: ALBUTEROL 2.5 MG/3 ML NEB SOL NEB PRN
[2023-11-11] MEDS ORDERED: SENOSIDES 8.6 MG TAB PO PRN (03:07)
[2023-11-11] MEDS ORDERED: ACETAMINOPHEN 500 MG TAB PO PRN (03:07)
[2023-11-11 05:11] LABS: Absolute Eosinophils 0.3 K/uL (0-0.5); Absolute Monocytes 0.4 K/uL (0.1-1.3); Absolute Neutrophil 3.1 K/uL (1.8-8.0); Basophils % 0.7 % (0-1.3); Eosinophils % 5.6 % (0-4.4); Hematocrit 22.6 % (36.0-45.0); Hemoglobin 7.1 g/dL (12.0-15.0); Lymphocytes % 19.9 % (15.3-44.8); MCH 30.3 pg (27.0-35.0); MCHC 31.5 g/dL (32.0-36.0); MCV 96.2 fL (80-100); MPV 8.9 fL (7.6-11.3); Monocytes % 9.2 % (3.3-12.3); Neutrophils % 64.6 % (41.7-73.7); Platelets 266 thou/uL (152-406); RBC Red Blood Cell Count 2.36 M/uL (3.86-4.86); Red Cell Distribution Width 16.2 % (12.1-15.2)
[2023-11-11 05:15] LABS: Percent Reticulocyte Count 11.66 % (0.4-2.05); RBC Red Blood Cell Count 2.3 M/uL (3.86-4.86)
[2023-11-11 05:31] LABS: ALT/SGPT < 14 U/L (13-56); AST/SGOT < 10 U/L (15-37); Albumin 2.7 g/dL (3.4-5.0); Albumin/Globulin Ratio 1.1 (1.1-1.8); Alkaline Phosphatase 52 U/L (45-117); Anion Gap 7.7 mEq/L (5.0-15.0); BUN Blood Urea Nitrogen 29 mg/dL (7-18); Bicarbonate 25 mEq/L (21-32); Bilirubin Total 0.2 mg/dL (0.2-1.0); Globulin 2.4 g/dL (2.3-3.5); Glomerular Filtration Rate 37 ml/min (=/>90); Glucose Level 91 mg/dL (74-106); Magnesium 2.2 mg/dL (1.6-2.4); Potassium 3.7 mEq/L (3.5-5.1); Protein, Total 5.1 g/dL (6.4-8.2); Sodium Level 140 mEq/L (136-145)
[2023-11-11 05:53] LABS: Ferritin 26.6 ng/mL (8-388)
[2023-11-11 06:10] LABS: Specific Gravity 1.011 (1.005-1.030); Sqamous Epithelial <5 /HPF (None Seen); Urine Bacteria None Seen /HPF (<20); Urine Bilirubin NEGATIVE (Negative); Urine Blood Negative (Negative); Urine Clarity Clear (Clear); Urine Color Yellow (Yellow); Urine Culture Reflex Order NOT NEEDED; Urine Glucose NEGATIVE (Negative); Urine Ketones NEGATIVE (Negative); Urine Microscopic Reflex YN ORDER UMIC; Urine Nitrite NEGATIVE (Negative); Urine Protein NEGATIVE (Negative); Urine RBC <5 /HPF (None Seen); Urine Urobilinogen Normal (Normal); Urine WBC <5 /HPF (<5)
[2023-11-11] MEDS: OCTREOTIDE 500 MCG in NA CHLORIDE 0.9% 500 ML IV SCH ×2 (06:33→18:41)
[2023-11-11] MEDS: METHYLPREDNISOLONE 125 MG INJ IV SCH (06:33)
[2023-11-11] MEDS: METOPROLOL TAR 25 MG TAB PO SCH (06:33)
[2023-11-11] MEDS: INSULIN REGULAR (HUMAN) 100 UNIT/ML SQ SCH (07:30)
[2023-11-11] MEDS: PANTOPRAZOLE 40MG TABLET PO SCH (08:31)
[2023-11-11] MEDS: BISACODYL E.C. 5 MG TAB PO SCH (08:31)
[2023-11-11] MEDS: NICOTINE 14 MG/PAT TD SCH (08:31)
[2023-11-11] MEDS: LOSARTAN POTASSIUM 50 MG TABLET PO SCH (08:32)
[2023-11-11] MEDS: POTASSIUM 25 MEQ EFFERV TAB PO ONE (08:32)
[2023-11-11] MEDS: SPIRONOLACTONE 25 MG TABLET PO SCH (08:50)
[2023-11-11] MEDS: POTASSIUM CL SA 10 MEQ TAB PO ONE (10:45)
[2023-11-11] MEDS: NA CHLORIDE 0.9% 500 ML ONE ×2 (14:32→18:08)
[2023-11-11] MEDS ORDERED: SODIUM CHLORIDE 0.9% 10ML INJ IV PRN (15:03)
--- NOTE | 2023-11-11 15:10 | P.PN ---
Subjective Date of Service: 11/11/23 Chief Complaint: symptomatic anemia Pt is resting comfortably in bed. Hgb is 7.1. Pt is waiting for blood transfusion. She requested for PT after blood transfusion No other complaints. Review of Systems General: Weakness Eyes: Unremarkable ENT: Unremarkable Respiratory: Unremarkable Cardiovascular: Unremarkable Gastrointestinal: Unremarkable Genitourinary: Unremarkable Musculoskeletal: Unremarkable Integumentary: Unremarkable Neurological: Unremarkable Lymphatics: Unremarkable Physical Examination - Vital Signs Temperature: 97.2 F Blood Pressure: 137/56 Pulse: 70 Respirations: 18 Pulse Ox (%): 92 - Physical Exam General: Alert, In no apparent distress, Oriented x3 HEENT: Atraumatic, Normocephalic, PERRLA Neck: Supple, 2+ carotid pulse no bruit, JVD not distended Respiratory: Clear to auscultation bilaterally, Normal air movement Cardiovascular: No edema, Normal pulses, Regular rate/rhythm, Normal S1 S2 Capillary refill: <2 Seconds Gastrointestinal: Normal bowel sounds, Soft and benign, Non-distended Musculoskeletal: No clubbing, No swelling, No contractures Integumentary: No rashes, No breakdown, No significant lesion Neurological: Normal gait, Normal speech, Normal strength at 5/5 x4 extr Lymphatics: No axilla or inguinal lymphadenopathy - Studies Laboratory Data (last 24 hrs) 11/10/23 11/10/23 11/10/23 19:54 19:54 19:54 WBC 8.00 Hgb 8.0 L Hct 25.0 L Plt Count 364 PT 11.3 INR 1.01 Sodium 138 Potassium 4.1 BUN 35 H Creatinine 1.72 H Glucose 97 Magnesium 2.7 H Total Bilirubin 0.2 AST 14 L ALT 18 Alkaline Phosphatase 64 Lipase 54 Assessment And Plan - Plan Acute blood loss anemia; Pt reports having dark tarry stool. Hgb is 7.1. Will transfuse 1 unit of blood. Will f/u with GI in clinic tomorrow for EGD. Continue protonix 40mg iv BID. Pt has hx of AVM. continue octreotide. GIANCARLO; Cr is 1.46 <- 1.72. Will continue ivf, avoid nephrotoxins and monitor renal function. Chronic back pain: CT lumbar spine reviewed. Will continue prn pain med. Will consult PT. DM II: Continue accuchek, SSI and ADA diet. Continue home meds for other chronic medical problems. DVT ppx: SCD Code: full Dispo: Will likely dc pt today after blood transfusion
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
[2023-11-11] MEDS: PANTOPRAZOLE 40 MG INJ IVP SCH (20:53)
[2023-11-11 23:06] VITALS: O2SAT 94
[2023-11-12] MEDS: ALPRAZOLAM 0.25 MG TABLET PO PRN (01:20)
[2023-11-12 04:10] VITALS: TEMP 97
[2023-11-12 06:18] LABS: Absolute Basophils 0.1 K/uL (0-0.5); Absolute Lymphocytes (CBC) 0.7 K/uL (0.7-4.9); Absolute Monocytes 0.4 K/uL (0.1-1.3); Absolute Neutrophil 8.5 K/uL (1.8-8.0); Basophils % 0.6 % (0-1.3); Eosinophils % 0.1 % (0-4.4); Hematocrit 32.4 % (36.0-45.0); Hemoglobin 10.7 g/dL (12.0-15.0); Lymphocytes % 7.5 % (15.3-44.8); MCH 30.7 pg (27.0-35.0); MCHC 32.9 g/dL (32.0-36.0); MCV 93.2 fL (80-100); MPV 9.1 fL (7.6-11.3); Monocytes % 3.9 % (3.3-12.3); Neutrophils % 87.9 % (41.7-73.7); Platelets 255 thou/uL (152-406); RBC Red Blood Cell Count 3.48 M/uL (3.86-4.86); Red Cell Distribution Width 18.5 % (12.1-15.2)
[2023-11-12 06:28] LABS: Anion Gap 6.5 mEq/L (5.0-15.0); Bilirubin Total 0.7 mg/dL (0.2-1.0); Magnesium 2.1 mg/dL (1.6-2.4); Potassium 4.5 mEq/L (3.5-5.1)
[2023-11-12 08:07] VITALS: BP 155/47
[2023-11-12 10:02] LABS: Anisocytosis 1+; Blood Morphology Comment NOTED (NOT SEEN); Platelet Estimate ADEQ; White Blood Cell Scan OK (OK)
--- NOTE | 2023-11-16 18:05 | EKG ---
Test Date: 2023-11-11 Test Time: 01:19:53 Experimental Box Tester: [facility] MEASUREMENT RESULTS: Intervals: Rate: 67 MS: 244 QRSD: 92 QT: 402 QTc: 424 [place]: P: 29 MS: 244 QRS: -27 T: 91 INTERPRETIVE STATEMENTS: Sinus rhythm with 1st degree AV block Septal infarct, age undetermined Abnormal ECG Compared to ECG 07/09/2023 20:34:16 Left-axis deviation no longer present Myocardial infarct finding still present Electronically Signed On 11-16-23 17:53:20 CDT by Baljinder Harrison
== END 2023-11-12 08:45 | disposition home or self-care (01) | DRG 391 ==
LOC: ER 18:10 → ERHOLD 23:07 → 4TH 11-11 05:45
PROVIDERS: ADMIT Hospitalist; ATTEND Hospitalist
PROC: 30233N1 Transfusion of Nonautologous Red Blood Cells into Peripheral Vein, Percutaneous Approach (ICD-10-PCS; principal; 2023-11-11)
DX: K31.819 Angiodysplasia of stomach and duodenum without bleeding (principal); J96.01 Acute respiratory failure with hypoxia; D62 Acute posthemorrhagic anemia; N17.9 Acute kidney failure, unspecified; J44.1 Chronic obstructive pulmonary disease with (acute) exacerbation; G89.29 Other chronic pain; M54.9 Dorsalgia, unspecified; K21.9 Gastro-esophageal reflux disease without esophagitis; E11.51 Type 2 diabetes mellitus with diabetic peripheral angiopathy without gangrene; M47.816 Spondylosis without myelopathy or radiculopathy, lumbar region; F17.210 Nicotine dependence, cigarettes, uncomplicated; Z88.0 Allergy status to penicillin; Z88.5 Allergy status to narcotic agent; Z88.2 Allergy status to sulfonamides; Z79.4 Long term (current) use of insulin; Z88.1 Allergy status to other antibiotic agents; Z95.1 Presence of aortocoronary bypass graft; Z88.8 Allergy status to other drugs, medicaments and biological substances; Z90.49 Acquired absence of other specified parts of digestive tract; Z86.73 Personal history of transient ischemic attack (TIA), and cerebral infarction without residual deficits; Z79.82 Long term (current) use of aspirin; Z79.899 Other long term (current) drug therapy
CPT/HCPCS: 36415; 71045; 72131; 80048; 80053; 80076; 81001; 82607; 82728; 82947; 83010; 83540; 83690; 83735; 83880; 84100; 84466; 84484; 85025; 85044; 85610; 86850; 86870; 86900; 86901; 86920; 86922; 93005; 94640; 96365; 96366; 96375; 99285; J2354; J2470; J2919; J3411; J7030; J7040; J7613; J7644; P9016

== ENCOUNTER 2024-02-28 13:16 | Emergency (ER) | payer MEDICARE ==
[2024-02-28 14:39] LABS: Absolute Basophils 0.1 K/uL (0-0.5); Absolute Eosinophils 0.1 K/uL (0-0.5); Absolute Lymphocytes (CBC) 0.2 K/uL (0.7-4.9); Absolute Monocytes 0.5 K/uL (0.1-1.3); Absolute Neutrophil 19.2 K/uL (1.8-8.0); Basophils % 0.4 % (0-1.3); Eosinophils % 0.6 % (0-4.4); Hematocrit 27.6 % (36.0-45.0); Hemoglobin 8.5 g/dL (12.0-15.0); Lymphocytes % 0.9 % (15.3-44.8); MCH 29.1 pg (27.0-35.0); MCHC 30.7 g/dL (32.0-36.0); MCV 94.8 fL (80-100); Monocytes % 2.6 % (3.3-12.3); Neutrophils % 95.5 % (41.7-73.7); Nucleated Red Blood Cells % 0.1 % (0-0); Platelets 345 thou/uL (152-406); RBC Red Blood Cell Count 2.91 M/uL (3.86-4.86); Red Cell Distribution Width 17.9 % (12.1-15.2)
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
[2024-02-28 14:56] LABS: AST/SGOT 20 U/L (15-37); Albumin 2.9 g/dL (3.4-5.0); Albumin/Globulin Ratio 0.8 (1.1-1.8); Alkaline Phosphatase 73 U/L (45-117); Anion Gap 11.3 mEq/L (5.0-15.0); BUN Blood Urea Nitrogen 65 mg/dL (7-18); Bicarbonate 20 mEq/L (21-32); Bilirubin Total 0.3 mg/dL (0.2-1.0); Globulin 3.7 g/dL (2.3-3.5); Glomerular Filtration Rate 25 ml/min (=/>90); Glucose Level 208 mg/dL (74-106); Magnesium 1.8 mg/dL (1.6-2.4); NT PRO-BNP 571 pg/mL (<450); Potassium 5.3 mEq/L (3.5-5.1); Protein, Total 6.6 g/dL (6.4-8.2); Sodium Level 134 mEq/L (136-145); Troponin High Sensitivity 7.5 pg/mL (<58.9)
[2024-02-28 14:57] LABS: ALT/SGPT < 14 U/L (13-56); Bilirubin Direct < 0.2 mg/dL (0-0.2); Bilirubin Indirect, Calculated 0.1 mg/dL (0.2-0.8)
--- NOTE | 2024-02-28 15:41 | RAD REPORT ---
EXAMINATION: ONE VIEW CHEST XR CLINICAL INDICATION: Female, 78 years old.,ams TECHNIQUE: Frontal chest projection is submitted. Examination is limited by patient positioning and t echnique. COMPARISON: 11/10/2023 FINDINGS: The lungs are mildly hypoinflated. Blunting of the left costophrenic angle may relate to early airspa ce opacity/pleural effusion, or atelectasis. No pneumothorax. The heart is normal in size. Mediastinal contours are unremarkable. Spinal stimulator electrodes in place. IMPRESSION: Trace left effusion and/or atelectasis or early airspace disease.
--- NOTE | 2024-02-28 15:55 | EDPHYS ---
Physician Documentation [facility] Name: Sia Salazar Age: 78 yrs Sex: Female : 1945 Arrival Date: 02/28/2024 Time: 13:16 Bed 18 Private MD: ED Physician Gadiel Rowland HPI: 02/27 17:08 This 78 yrs old Female presents to ER via Wheelchair with complaints of Altered Mental ms3 Status. 17:08 Makayla Hampton is a 78-year-old female with a past medical history of diabetes and ms3 hypertension. She presented to the Emergency Department with an acute onset of uncontrolled kicking, mumbling, and slumping over while returning from a vascular surgeon's office visit in [place]. These symptoms started approximately one hour ago. She has not experienced any vomiting. Her family member, her younger brother, reports that she is normally coherent, able to talk, and walk with a walker. However, today she demonstrated reduced responsiveness and abnormal movements. It is noted that she has had recent issues with her blood sugar management, including a reading over 600 one night. . Historical: - Allergies: 13:46 Actos; cm10 13:46 Bactrim; cm10 13:46 Clindamycin; cm10 13:46 Codeine; cm10 13:46 Crestor; cm10 13:46 Darvocet-N 100; cm10 13:46 Erythromycin; cm10 13:46 Glimepiride; cm10 13:46 Glipizide; cm10 13:46 Iodinated Contrast Media - IV Dye; cm10 13:46 Januvia; cm10 13:46 Lipitor; cm10 13:46 metformin; cm10 13:46 metronidazole; cm10 13:46 Morphine; cm10 13:46 PENICILLINS; cm10 13:46 Sulfa (Sulfonamide Antibiotics); cm10 13:46 Wellbutrin; cm10 - Home Meds: 22:22 citalopram 40 mg tablet once [Active]; pantoprazole 40 mg oral tablet, delayed release rg5 (enteric coated) once [Active]; aspirin 81 mg Oral capsule once [Active]; pregabalin 50 mg Oral capsule 3 times per day [Active]; metoprolol succinate 25 mg oral Tablet, Extended Release 24 hr once [Active]; losartan potassium (bulk) 100 % miscellaneous powder daily [Active]; Novolin 70/30 [place] Sub-Q daily [Active]; octreotide,microspheres intramuscular once [Active]; Senna Lax 8.6 mg oral tablet 2 times per day [Active]; Stool Softener 50 mg oral capsule [Active]; magnesium oxide 400 mg (241.3 mg magnesium) Oral tablet 2 times per day [Active]; tizanidine 2 mg oral capsule once [Active]; ferrous sulfate 325 mg (65 mg iron) Oral tablet once [Active]; spironolactone 25 mg Oral tablet [Active]; Xarelto 2.5 mg oral tablet 2 times per day [Active]; Nifedipine ER Oral 30 mg daily [Active]; - PMHx: 13:46 angiodysplasia; bowel AVMs; bronchospastic airway disease; celiac artery stenosis; cm10 Cerebrovascular disease; chronic mesenteric ischemia; chronic pulmonary embolism; constipation (SBO); COPD; Depression; Diabetes - IDDM; GERD; ibs; ischemic bowel disease; peripheral artery disease; SBO; - PSHx: 13:46 Cholecystectomy; Coronary artery bypass graft; Tonsillectomy; cm10 - Immunization history:: Adult Immunizations up to date. - Infectious Disease History:: Denies. - Social history:: Smoking status: unknown. ROS: 17:08 Constitutional: Negative for fever, and chills. Cardiovascular: Negative for chest ms3 pain, and palpitations. Respiratory: Negative for shortness of breath, cough, wheezing, and pleuritic chest pain, Abdomen/GI: Negative for abdominal pain, nausea, vomiting, diarrhea, and constipation, 17:08 Neuro: Positive for altered mental status, Exam: 14:03 ECG was reviewed by the Attending Physician. ms3 17:08 Skin: Bilateral groin incisions without induration, drainage. Mild TTP. ms3 17:08 Head/Face: Normocephalic, atraumatic. Neck: Trachea midline, no cervical ms3 lymphadenopathy. Supple, full range of motion without nuchal rigidity, or vertebral point tenderness. No Meningismus. Chest/axilla: Normal chest wall appearance and motion. Nontender with no deformity. 17:08 Neuro: Mentation: responsive to voice able to follow commands, Motor: moves all fours, Sensation: no obvious gross deficits, Gait: unable to assess, Vital Signs: 13:44 BP 148 / 33; Pulse 89; Resp 16; Temp 99.3(O); Pulse Ox 92% on R/A; cm10 14:00 BP 152 / 34; Pulse 87; Resp 16; Pulse Ox 96% on R/A; cm10 16:00 BP 116 / 36; Pulse 84; Resp 16; Pulse Ox 97% on R/A; cm10 16:30 BP 97 / 32; Pulse 87; Resp 17; Pulse Ox 97% ; MAP 52 mmHg; cm10 17:04 BP 95 / 36; Pulse 89; Resp 17; Pulse Ox 94% on R/A; MAP 53 mmHg; cm10 17:16 BP 97 / 25; Pulse 87; Resp 17; Pulse Ox 96% on R/A; MAP 47 mmHg; cm10 17:34 BP 91 / 37; Pulse 95; Resp 17; Pulse Ox 97% on R/A; MAP 53 mmHg; cm10 18:30 BP 114 / 61; Pulse 77; Resp 14; Pulse Ox 99% ; cm10 18:31 Weight 58.97 kg; cm10 19:17 BP 119 / 34; Pulse 82; Resp 18; Pulse Ox 98% on R/A; rg5 20:30 BP 118 / 31; Pulse 73; Resp 18; Pulse Ox 98% on R/A; rg5 21:20 BP 110 / 32; Pulse 73; Resp 18; Pulse Ox 96% on R/A; rg5 22:00 BP 106 / 33; Pulse 73; Resp 18; Pulse Ox 97% on R/A; rg5 23:15 BP 118 / 32; Pulse 69; Resp 18; Temp 98.5(O); Pulse Ox 96% on R/A; rg5 12/03 00:00 BP 99 / 33; Pulse 70; Resp 17; Temp 98.3(O); Pulse Ox 95% on R/A; rg5 Newton Coma Score: 12 14:03 Eye Response: to voice(3). Motor Response: localizes pain(5). Verbal Response: ms3 confused(4). Total: 12. 17:08 Eye Response: spontaneous(4). Motor Response: obeys commands(6). Verbal Response: ms3 oriented(5). Total: 15. MDM: 13:31 Medical Screening Exam initiated ms3 17:06 ED course: Patient evaluated by Dr Kramer, Hospitalist, and she recommends transfer as ms3 she is concerned patient has a post op infection as patient has tenderness in bilateral groins. Incisions without erythema or drainage.. 17:12 Differential Diagnosis: electrolyte abnormality, hypoglycemia, intracranial bleed, ms3 overdose. Data reviewed: vital signs, nurses notes, lab test result(s), EKG, radiologic studies, and as a result, I will transfer. Management of patient was discussed with the following: Hospitalist: Dr Kramer. I considered the following discharge prescriptions or medication management in the emergency department Medications were administered in the Emergency Department. See MAR. Independent interpretation of the following test(s) in the Emergency Department EKG: See my EKG interpretation above. Historians other than the Patient: Family Member: Patient's brother. Counseling: I had a detailed discussion with the patient and/or guardian regarding the historical points, exam findings, and any diagnostic results supporting the discharge/admit diagnosis, lab results, radiology results, the need to transfer to another facility, Hospitalist would like patient transferred as she recently had femoral bypass surgery at [facility]. 18:31 ED course: Patient meets septic shock criteria at this time. A. Possible PNA B. WBC ms3 >12k, HR>90. C. SBP <90 mm Hg. Shock criteria 2 SBP <90 mm Hg. Patient weight 59 kg. Will give 1770 ml NS. . 18:37 ED course: Sepsis re-evaluation complete at this time. BP responded to fluids. ms3 19:35 ED course: Patient signed out pending transfer. In brief patient with severe sepsis ec2 receiving antibiotics without pressor requirement.. 19:48 ED course: discussed w/ ICU doc at [facility], did not feel this required ICU admission, w/ ec2 normal lactate and improving BP after crystalloid administration. 20:36 ED course: I discussed case with truck car and bus cleaner who recommended hospitalist admission. I ec2 discussed case with hospitalist who agrees except the patient for admission.. 02/27 13:31 Order name: Basic Metabolic Panel; Complete Time: 14:59 ms3 02/27 13:31 Order name: CBC with Diff; Complete Time: 16:04 ms3 02/27 13:31 Order name: LFT's; Complete Time: 14:59 ms3 02/27 13:31 Order name: Magnesium; Complete Time: 14:59 ms3 12/02 13:31 Order name: NT PRO-BNP; Complete Time: 14:59 ms3 02 13:31 Order name: Troponin HS; Complete Time: 14:59 ms3 02 13:40 Order name: Glucose, Ancillary Testing; Complete Time: 14:04 EDMS 02 15:34 Order name: Blood Culture Adult (2) ms3 12/02 15:34 Order name: Lactate w/ 2H reflex if indic.; Complete Time: 17:49 ms3 02 15:34 Order name: Protime (+inr); Complete Time: 17:49 ms3 02 15:34 Order name: Ptt, Activated; Complete Time: 17:49 ms3 02 15:56 Order name: CBC Smear Scan; Complete Time: 16:04 EDMS 02 13:31 Order name: XRAY Chest (1 view); Complete Time: 15:46 ms3 02/27 13:31 Order name: CT Head Brain wo Cont; Complete Time: 14:59 ms3 02/27 13:31 Order name: Cardiac monitoring; Complete Time: 13:56 ms3 02 13:31 Order name: EKG - Nurse/Tech; Complete Time: 13:56 ms3 02 13:31 Order name: IV Saline Lock; Complete Time: 15:07 ms3 02 13:31 Order name: Labs collected and sent; Complete Time: 15:07 ms3 02 13:31 Order name: O2 Per Protocol; Complete Time: 13:56 ms3 02 13:31 Order name: O2 Sat Monitoring; Complete Time: 13:56 ms3 02 15:34 Order name: IV Saline Lock - Large Bore; Complete Time: 16:46 ms3 02 15:34 Order name: Vital Signs; Complete Time: 16:46 ms3 EC:03 Rate is 92 beats/min. Rhythm is regular. Left axis deviation noted. [place] interval is ms3 normal. QRS interval is normal. Clinical impression: NSR w/ Non-specific ST/T Changes. Interpreted by me. Reviewed by me. Administered Medications: 17:19 Drug: NS 0.9% IV 500 ml IV at bolus once; to be given as a bolus over 30 minutes Route: cm10 IV; Rate: bolus; Site: right upper arm; 18:17 Follow up: Response: No adverse reaction; IV Status: Completed infusion; IV Intake: cm10 500ml 17:20 Drug: levofloxacin IVPB 750 mg 150 ml IVPB once over 90 mins Volume: 150 ml; Route: cm10 IVPB; Infused Over: 90 mins; Site: right upper arm; 18:43 Follow up: Response: No adverse reaction; IV Status: Completed infusion; IV Intake: cm10 150ml 18:17 Drug: NS 0.9% IV 1000 ml IV at 1 bolus Per protocol; to be given as a bolus over 60 cm10 minutes Route: IV; Rate: 1 bolus; Site: right upper arm; 18:34 Follow up: Response: No adverse reaction; IV Status: Completed infusion; IV Intake: cm10 1000ml 18:33 CANCELLED (Physician Discretion): ns 0.9% 250 ml IV at bolus once; to be given as a ms3 bolus over 30 minutes 18:34 Drug: NS 0.9% IV 270 ml IV at bolus once; to be given as a bolus over 30 minutes Route: cm10 IV; Rate: bolus; Site: right banner arm; 18:50 Follow up: Response: No adverse reaction; IV Status: Completed infusion; IV Intake: cm10 270ml 20:15 Drug: NS 0.9% IV 1000 ml IV at 125 ml/hr continuous Route: IV; Rate: 125 ml/hr; Site: [facility]; 02/28 00:00 Follow up: IV Status: Infusion continued upon transfer [facility] 02/27 21:07 Drug: Acetaminophen PO 1000 mg PO once Route: PO; rg5 22:07 Follow up: Response: No adverse reaction 5 23:59 Not Given (BP STABLE): norepinephrine0.1 mcg/kg/min IV at calculated rate See rg5 Administration Instructions; (Standard concentration 4 mg / 250 mL D5W); Recommended max rate 3 mcg/kg/min; Titrate 0.05 mcg/kg/min as often as every 5 minutes to achieve goal (see titration policy); Goal parameter MAP greater than 65 mmHg. Disposition: 19:31 Critical Care:. ms3 Disposition Summary: 02/28/24 17:14 Transfer Ordered Notes: Transfer Location: [facility] ms3 Reason: Higher level of care ms3 Condition: Stable(02/28/24 17:14) ms3 Problem: new(02/28/24 17:14) ms3 Symptoms: are unchanged(02/28/24 17:14) ms3 Accepting Physician: (02/29/24 00:05) rg5 Diagnosis - Altered mental status, unspecified(02/28/24 17:14) ms3 - Other pneumonia, unspecified organism(02/28/24 17:14) ms3 - Anemia, unspecified ms3 Forms: - Medication Reconciliation Form ms3 - SBAR form ms3 Critical care time excluding procedures: 19:31 Critical care time: Bedside Care: 35 minutes, Consultation: 5 minutes, Family ms3 Intervention: 10 minutes. Total time: 50 minutes Signatures: Dispatcher [employer] EDMS Juan Neal, DO ms3 Sandra Moya, RN RN cm10 Gadiel Rowland MD MD ec2 Luis Fernando Hilario, PITER RN rg5 Corrections: (The following items were deleted from the chart) 13:31 13:31 BASIC METABOLIC PANEL+C.LAB.BRZ ordered. EDMS EDMS 13:31 13:31 CBC+H.LAB.BRZ ordered. EDMS EDMS 13:31 13:31 HEPATIC FUNCTION+C.LAB.BRZ ordered. EDMS EDMS 13:31 13:31 MAGNESIUM+C.LAB.BRZ ordered. EDMS EDMS 13:31 13:31 PROBNP+C.LAB.BRZ ordered. EDMS EDMS 13:31 13:31 Troponin High Sensitivity+C.LAB.BRZ ordered. EDMS EDMS 13:32 13:32 Chest Single View+RAD.RAD.BRZ ordered. EDMS EDMS 13:32 13:32 Head Brain Wo Cont+CT.RAD.BRZ ordered. EDMS EDMS 15:34 15:34 BLOOD CULTURE*+BA.LAB.BRZ ordered. EDMS EDMS 15:34 15:34 LACTATE+C.LAB.BRZ ordered. EDMS EDMS 15:34 15:34 PROTIME (+INR)+COAG.LAB.BRZ ordered. EDMS EDMS 15:34 15:34 PTT, ACTIVATED+COAG.LAB.BRZ ordered. EDMS EDMS 16:03 15:54 [employer] ms3 ms3 17:03 15:34 Accucheck ordered. ms3 cm10 17:11 17:08 Constitutional: This is a well developed, well nourished patient who is awake, ms3 alert, and in no acute distress. Head/Face: Normocephalic, atraumatic. Chest/axilla: Normal chest wall appearance and motion. Nontender with no deformity. Cardiovascular: Regular rate and rhythm with a normal S1 and S2. No gallops, murmurs, or rubs. Normal PMI, no JVD. No pulse deficits. Respiratory: Lungs have equal breath sounds bilaterally, clear to auscultation and percussion. No rales, rhonchi or wheezes noted. No increased work of breathing, no retractions or nasal flaring. Abdomen/GI: Soft, non-tender, with normal bowel sounds. No distension or tympany. No guarding or rebound. No evidence of tenderness throughout. ms3 17:13 15:54 Inpatient Admission ms3 ms3 17:13 15:54 Telemetry/MedSurg (Inpatient) ms3 ms3 17:13 15:54 Stable ms3 ms3 17:13 15:54 new ms3 ms3 17:13 15:54 are unchanged ms3 ms3 17:13 15:54 Standard ms3 ms3 17:13 15:54 ms3 ms3 17:13 15:54 Other pneumonia, unspecified organism ms3 ms3 17:13 15:54 Altered mental status, unspecified ms3 ms3 17:13 15:54 Essential (primary) hypertension ms3 ms3 17:13 16:03 [place]ramer, [place]-Ran ms3 ms3 18:32 18:31 NS 0.9% IV 250 ml IV at bolus once; to be given as a bolus over 30 minutes ms3 ordered. ms3 18:33 18:31 NS 0.9% IV 250 ml IV at bolus once; to be given as a bolus over 30 minutes ms3 ordered. ms3 18:33 18:32 NS 0.9% IV 250 ml IV at bolus once; to be given as a bolus over 30 minutes ms3 ordered. ms3 20:38 20:36 ED course: I discussed case with truck car and bus cleaner at [place] who agrees accept the ec2 patient for admission.. ec2 02/28 00:05 12 17:14 Dr joseph rg5
--- NOTE | 2024-02-28 15:55 | ER ---
Nurse's Notes [facility] Name: Sia Salazar Age: 78 yrs Sex: Female : 1945 Arrival Date: 02/28/2024 Time: 13:16 Bed 18 Private MD: Diagnosis: Altered mental status, unspecified;Other pneumonia, unspecified organism;Anemia, unspecified Presentation: 02/27 13:44 Chief complaint: PT'S BROTHER STATE THAT THEY WERE DRIVING HOME AND PT SLUMPED FORWARD cm10 AND STARTED SHAKING UNCONTROLLABLY. PT ABLE TO STATE NAME AND NO OTHER DETAILS. PT RESPONDS TO PAINFUL STIMULI. ONSET OF SYMPTOMS 1HR FRUIT THINNER. Coronavirus screen: Client denies travel out of the [place] in the last 14 days. Ebola Screen: Patient denies travel to an Ebola-affected area in the 21 days before illness onset. No symptoms or risks identified at this time. Initial Sepsis Screen: Does the patient meet any 2 criteria? Altered Mental Status. Does the patient have a suspected source of infection? No. Patient's initial sepsis screen is negative. Risk Assessment: Do you want to hurt yourself or someone else? Patient reports no desire to harm self or others. Onset of symptoms was February 28, 2024. 13:44 Method Of Arrival: Wheelchair cm10 13:44 Acuity: GREGG 2 cm10 Triage Assessment: 13:45 General: Appears in no apparent distress. Behavior is LETHARGIC. Pain: Denies pain. cm10 Neuro: No deficits noted. Level of Consciousness is lethargic, Oriented to person, place. Cardiovascular: No deficits noted. Patient's skin is warm and dry. Respiratory: No deficits noted. Airway is patent Respiratory effort is even, unlabored, Respiratory pattern is regular, symmetrical. Derm: No deficits noted. Skin is pale. Historical: - Allergies: 13:46 Actos; cm10 13:46 Bactrim; cm10 13:46 Clindamycin; cm10 13:46 Codeine; cm10 13:46 Crestor; cm10 13:46 Darvocet-N 100; cm10 13:46 Erythromycin; cm10 13:46 Glimepiride; cm10 13:46 Glipizide; cm10 13:46 Iodinated Contrast Media - IV Dye; cm10 13:46 Januvia; cm10 13:46 Lipitor; cm10 13:46 metformin; cm10 13:46 metronidazole; cm10 13:46 Morphine; cm10 13:46 PENICILLINS; cm10 13:46 Sulfa (Sulfonamide Antibiotics); cm10 13:46 Wellbutrin; cm10 - Home Meds: 22:22 citalopram 40 mg tablet once [Active]; pantoprazole 40 mg oral tablet, delayed release rg5 (enteric coated) once [Active]; aspirin 81 mg Oral capsule once [Active]; pregabalin 50 mg Oral capsule 3 times per day [Active]; metoprolol succinate 25 mg oral Tablet, Extended Release 24 hr once [Active]; losartan potassium (bulk) 100 % miscellaneous powder daily [Active]; Novolin 70/30 [place] Sub-Q daily [Active]; octreotide,microspheres intramuscular once [Active]; Senna Lax 8.6 mg oral tablet 2 times per day [Active]; Stool Softener 50 mg oral capsule [Active]; magnesium oxide 400 mg (241.3 mg magnesium) Oral tablet 2 times per day [Active]; tizanidine 2 mg oral capsule once [Active]; ferrous sulfate 325 mg (65 mg iron) Oral tablet once [Active]; spironolactone 25 mg Oral tablet [Active]; Xarelto 2.5 mg oral tablet 2 times per day [Active]; Nifedipine ER Oral 30 mg daily [Active]; - PMHx: 13:46 angiodysplasia; bowel AVMs; bronchospastic airway disease; celiac artery stenosis; cm10 Cerebrovascular disease; chronic mesenteric ischemia; chronic pulmonary embolism; constipation (SBO); COPD; Depression; Diabetes - IDDM; GERD; ibs; ischemic bowel disease; peripheral artery disease; SBO; - PSHx: 13:46 Cholecystectomy; Coronary artery bypass graft; Tonsillectomy; cm10 - Immunization history:: Adult Immunizations up to date. - Infectious Disease History:: Denies. - Social history:: Smoking status: unknown. Screenin:00 [facility] ED Fall Risk Assessment (Adult) History of falling in the last 3 months, cm10 including since admission No falls in past 3 months (0 pts) Confusion or Disorientation Yes (5 pts) Intoxicated or Sedated No (0 pts) Impaired Gait Yes (1 pt) Mobility Assist Device Used Yes (1 pt) Altered Elimination No (0 pt) Score/Fall Risk Level 3 or more points = High Risk Oriented to surroundings, Maintained a safe environment, Hourly rounding (assess needs \T\ fall precautionary measures) done. 17:00 Abuse screen: Denies threats or abuse. Denies injuries from another. Nutritional cm10 screening: No deficits noted. Tuberculosis screening: No symptoms or risk factors identified. Assessment: 15:00 Reassessment: Patient appears in no apparent distress at this time. No changes from cm10 previously documented assessment. Patient and/or family updated on plan of care and expected duration. Pain level reassessed. 16:00 Reassessment: Patient appears in no apparent distress at this time. No changes from cm10 previously documented assessment. Patient and/or family updated on plan of care and expected duration. Pain level reassessed. 17:15 Reassessment: PROVIDER MADE AWARE OF PATIENT'S BP. PT CONTINUES TO AWAKEN WHEN cm10 REPOSITIONED OR SPOKEN TO. 19:05 Reassessment: No changes from previously documented assessment. Patient and/or family rg5 updated on plan of care and expected duration. Pain level reassessed. Patient is alert, oriented x 3, equal unlabored respirations, skin warm/dry/pink. 20:00 Reassessment: No changes from previously documented assessment. Patient and/or family rg5 updated on plan of care and expected duration. Pain level reassessed. Patient is alert, oriented x 3, equal unlabored respirations, skin warm/dry/pink. 21:00 Reassessment: No changes from previously documented assessment. Patient and/or family rg5 updated on plan of care and expected duration. Pain level reassessed. Patient is alert, oriented x 3, equal unlabored respirations, skin warm/dry/pink. 22:00 Reassessment: No changes from previously documented assessment. Patient and/or family rg5 updated on plan of care and expected duration. Pain level reassessed. Patient is alert, oriented x 3, equal unlabored respirations, skin warm/dry/pink. 23:18 Reassessment: No changes from previously documented assessment. Patient and/or family rg5 updated on plan of care and expected duration. Pain level reassessed. Patient is alert, oriented x 3, equal unlabored respirations, skin warm/dry/pink. 02/28 00:02 Reassessment: No changes from previously documented assessment. Patient and/or family rg5 updated on plan of care and expected duration. Pain level reassessed. Patient is alert, oriented x 3, equal unlabored respirations, skin warm/dry/pink. Vital Signs: 02/27 13:44 BP 148 / 33; Pulse 89; Resp 16; Temp 99.3(O); Pulse Ox 92% on R/A; cm10 14:00 BP 152 / 34; Pulse 87; Resp 16; Pulse Ox 96% on R/A; cm10 16:00 BP 116 / 36; Pulse 84; Resp 16; Pulse Ox 97% on R/A; cm10 16:30 BP 97 / 32; Pulse 87; Resp 17; Pulse Ox 97% ; MAP 52 mmHg; cm10 17:04 BP 95 / 36; Pulse 89; Resp 17; Pulse Ox 94% on R/A; MAP 53 mmHg; cm10 17:16 BP 97 / 25; Pulse 87; Resp 17; Pulse Ox 96% on R/A; MAP 47 mmHg; cm10 17:34 BP 91 / 37; Pulse 95; Resp 17; Pulse Ox 97% on R/A; MAP 53 mmHg; cm10 18:30 BP 114 / 61; Pulse 77; Resp 14; Pulse Ox 99% ; cm10 18:31 Weight 58.97 kg; cm10 19:17 BP 119 / 34; Pulse 82; Resp 18; Pulse Ox 98% on R/A; rg5 20:30 BP 118 / 31; Pulse 73; Resp 18; Pulse Ox 98% on R/A; rg5 21:20 BP 110 / 32; Pulse 73; Resp 18; Pulse Ox 96% on R/A; rg5 22:00 BP 106 / 33; Pulse 73; Resp 18; Pulse Ox 97% on R/A; rg5 23:15 BP 118 / 32; Pulse 69; Resp 18; Temp 98.5(O); Pulse Ox 96% on R/A; rg5 02/28 00:00 BP 99 / 33; Pulse 70; Resp 17; Temp 98.3(O); Pulse Ox 95% on R/A; rg5 Newton Coma Score: 02/27 14:03 Eye Response: to voice(3). Motor Response: localizes pain(5). Verbal Response: ms3 confused(4). Total: 12. 17:08 Eye Response: spontaneous(4). Motor Response: obeys commands(6). Verbal Response: ms3 oriented(5). Total: 15. ED Course: 13:20 Patient arrived in ED. ec2 13:23 Juan Neal DO is Attending Physician. ms3 13:42 CT Head Brain wo Cont In Process Unspecified. EDMS 13:44 Sandra Moya, RN is Primary Nurse. cm10 13:46 Triage completed. cm10 13:47 Arm band placed on right wrist. Patient placed in an exam room, in a wheelchair, on cm10 billing assistant, on pulse oximetry. 13:55 Missed attempt(s): 22 gauge in left in right hand. wrist. forearm. Bleeding controlled, cm10 band aid applied, catheter tip intact. 14:17 XRAY Chest (1 view) In Process Unspecified. EDMS 14:34 Missed attempt(s): 22 gauge in right antecubital area. Bleeding controlled, band aid iw applied, catheter tip intact. 14:59 Accessed peripheral vein via ultrasound, utilizing dynamic ultrasound technique Good cm10 blood return. Flushes easily. 18G RIGHT CEPHALIC. 8CM. 15:53 Armani Church is Hospitalizing Provider. ms3 16:03 Estella Kramer is Hospitalizing Provider. ms3 17:00 Patient has correct armband on for positive identification. Placed in gown. Bed in low cm10 position. Call light in reach. Side rails up X2. Provided Education on: ER PROCESS AND PROCEDURES.. Client placed on continuous cardiac and pulse oximetry monitoring. NIBP monitoring applied. employment recruiter on. 17:00 Lactate w/ 2H reflex if indic. Sent. cm10 17:00 Protime (+inr) Sent. cm10 17:00 Ptt, Activated Sent. cm10 17:[address] [facility]. bc6 19:09 Report given to PITER SHAW. cm10 19:12 Luis Fernando Hilario, PITER is Primary Nurse. rg5 19:35 Attending Physician role handed off by Juan Neal DO ec2 19:35 Gadiel Rowland MD is Attending Physician. ec2 23:19 No provider procedures requiring assistance completed. rg5 02/28 00:02 Patient transferred, IV remains in place. intact, No redness/swelling at site. rg5 Administered Medications: 02/27 17:19 Drug: NS 0.9% IV 500 ml IV at bolus once; to be given as a bolus over 30 minutes Route: cm10 IV; Rate: bolus; Site: right upper arm; 18:17 Follow up: Response: No adverse reaction; IV Status: Completed infusion; IV Intake: cm10 500ml 17:20 Drug: levofloxacin IVPB 750 mg 150 ml IVPB once over 90 mins Volume: 150 ml; Route: cm10 IVPB; Infused Over: 90 mins; Site: right upper arm; 18:43 Follow up: Response: No adverse reaction; IV Status: Completed infusion; IV Intake: cm10 150ml 18:17 Drug: NS 0.9% IV 1000 ml IV at 1 bolus Per protocol; to be given as a bolus over 60 cm10 minutes Route: IV; Rate: 1 bolus; Site: right upper arm; 18:34 Follow up: Response: No adverse reaction; IV Status: Completed infusion; IV Intake: cm10 1000ml 18:33 CANCELLED (Physician Discretion): ns 0.9% 250 ml IV at bolus once; to be given as a ms3 bolus over 30 minutes 18:34 Drug: NS 0.9% IV 270 ml IV at bolus once; to be given as a bolus over 30 minutes Route: cm10 IV; Rate: bolus; Site: right upper arm; 18:50 Follow up: Response: No adverse reaction; IV Status: Completed infusion; IV Intake: cm10 270ml 20:15 Drug: NS 0.9% IV 1000 ml IV at 125 ml/hr continuous Route: IV; Rate: 125 ml/hr; Site: [address]; 02/28 00:00 Follow up: IV Status: Infusion continued upon transfer [facility] 02/27 21:07 Drug: Acetaminophen PO 1000 mg PO once Route: PO; rg5 22:07 Follow up: Response: No adverse reaction rg5 23:59 Not Given (BP STABLE): norepinephrine0.1 mcg/kg/min IV at calculated rate See rg5 Administration Instructions; (Standard concentration 4 mg / 250 mL D5W); Recommended max rate 3 mcg/kg/min; Titrate 0.05 mcg/kg/min as often as every 5 minutes to achieve goal (see titration policy); Goal parameter MAP greater than 65 mmHg. Medication: 19:12 VIS not applicable for this client. rg5 Intake: 18:17 IV: 500ml; Total: 500ml. cm10 18:34 IV: 1000ml; Total: 1500ml. cm10 18:43 IV: 150ml; Total: 1650ml. cm10 18:50 IV: 270ml; Total: 1920ml. cm10 Outcome: 15:54 Decision to Hospitalize by Provider. ms3 17:14 ER care complete, transfer ordered by . ms3 02/28 00:02 Transferred to [facility], [facility], [facility] Condition: stable Discharge instructions given to EMS, 00:05 Patient left the ED. rg5 Addendum: 03/05/2024 07:35 Addendum: Culture Results: Positive blood culture. faxed positive culture reports to e b the [facility] transfer center/ genevieve Murray on she could not find the fax number. Pricilla from the transfer center will send the fax to the floor. Signatures: Dispatcher [employer] Rebekah Oakes, RN RN Elsa Stephens Marcus, DO DO ms3 Queenie Gastelum bc6 Sandra Moya RN RN cm10 Gadiel Rowland MD MD ec2 Luis Fernando Hilario, RN RN rg5
[2024-02-28 15:56] LABS: Anisocytosis 1+; Blood Morphology Comment NOTED (NOT SEEN); Platelet Estimate ADEQ; Platelets Clumped FEW; Polychromasia SLIGHT; White Blood Cell Scan OK (OK)
--- NOTE | 2024-02-28 16:44 | P.HP ---
Patient History Date of Service: 02/28/24 Allergies atorvastatin [From Lipitor] Allergy (Verified 01/04/22 23:16) Unknown codeine Allergy (Verified 01/04/22 23:16) Unknown glimepiride Allergy (Verified 01/04/22 23:16) Unknown glipizide Allergy (Verified 01/04/22 23:16) Unknown Iodinated Contrast Media [Iodinated Contrast Media - Oral and] Allergy (Verified 01/04/22 23:16) Unknown Penicillins Allergy (Verified 01/04/22 23:16) Unknown pioglitazone [From Actos] Allergy (Verified 01/04/22 23:16) Unknown rosuvastatin [From Crestor] Allergy (Verified 01/04/22 23:16) Unknown sitagliptin [From Januvia] Allergy (Verified 01/04/22 23:16) Unknown Sulfa (Sulfonamide Antibiotics) Allergy (Verified 01/04/22 23:16) Unknown sulfamethoxazole [From Bactrim] Allergy (Verified 01/04/22 23:16) Unknown trimethoprim [From Bactrim] Allergy (Verified 01/04/22 23:16) Unknown Clindamycin Allergy (Uncoded 12/12/21 08:04) Unknown Darvocet-N Allergy (Uncoded 12/12/21 08:04) Unknown eryt Allergy (Uncoded 12/12/21 08:04) Unknown metformin Allergy (Uncoded 12/12/21 08:04) Unknown morphine Allergy (Uncoded 12/12/21 08:04) Unknown Wellbutr Allergy (Uncoded 12/12/21 08:04) Unknown Home Medications: Insulin 70/30 NPH/Reg Human [Novolin 70/30*] 12 unit SQ BID 01/05/22 Magnesium Oxide 400 mg PO BID 06/03/22 Aspirin 81 mg PO DAILY 11/11/23 Citalopram Hydrobromide [Citalopram HBr] 40 mg PO DAILY 11/11/23 Cyclobenzaprine HCl [Flexeril] 5 mg PO BEDTIME PRN PRN 11/11/23 Docusate Sodium [Stool Softener] 200 mg PO DAILY 11/11/23 Ferrous Sulfate [Ferrous Sulfate*] 325 mg PO BEDTIME 11/11/23 Insulin Regular, Human [Novolin R] See Rx Instructions .ROUTE .COMPLEX 11/11/23 Losartan Potassium 100 mg PO DAILY 11/11/23 Metoprolol Succinate [Toprol Xl*] 25 mg PO [id number] 11/11/23 Octreotide [Sandostatin] 100 mcg IJ BID 11/11/23 Pantoprazole [Protonix Tab*] 40 mg PO DAILY 11/11/23 Pregabalin 50 mg PO TID 11/11/23 Sennosides/Docusate Sodium [Senna-S Tablet] 2 tab PO DAILY 11/11/23 Spironolactone [Aldactone*] 25 mg PO BEDTIME 11/11/23 Tizanidine [Zanaflex] 2 mg PO BEDTIME 11/11/23 - Past Medical/Surgical History Diabetic: Yes -: SBO -: AVM -: angiodysplasia -: ischemic bowel disease -: celiac artherial stenosis -: IBS -: IDDM -: COPD -: PAD -: Chronic mesenteric ischemia -: GERD -: Esophageal pulmonary emboli -: Abdominal/Stomach surgery -: tonsillectomy -: cholecystectomy Psychosocial/ Personal History: Lives with her Daughter in one story home. Has a w/c, walker, cane. Does not have home O2. - Social History Alcohol use: No CD- Drugs: No Caffeine use: No Physical Examination - Studies Laboratory Data (last 24 hrs) 02/28/24 02/28/24 14:29 14:29 WBC 20.10 H Hgb 8.5 L Hct 27.6 L Plt Count 345 Sodium 134 L Potassium 5.3 H BUN 65 H Creatinine 2.03 H Glucose 208 H Magnesium 1.8 Total Bilirubin 0.3 AST 20 ALT < 14 Alkaline Phosphatase 73 Assessment and Plan - Advance Directives Does patient have a Living Will: No Does patient have a Durable POA for Healthcare: No
[2024-02-28] MEDS ORDERED: Levofloxacin 750mg IV 750 MG/150 ML BAG IV ONE (17:04)
[2024-02-28] MEDS ORDERED: NA CHLORIDE 0.9% 500 ML ONE (17:04)
[2024-02-28 17:29] LABS: PT Prothrombin Time 14.4 SECONDS (9.4-12.5); PTT, Activated Partial Thromb 26.5 SECONDS (24.3-36.9); Protime INR 1.3
--- NOTE | 2024-02-28 17:45 | P.CNS ---
Date of Consult: 02/28/24 I was called to evaluate the patient for admission. 78 years old female patient who recently had bypass surgery for the both lower extremity 1 week ago in [facility], [facility] who presented to emergency room for altered mental status. Patient seems to have severe sepsis, no definite source of infection but suspected postoperative wound infection of right thigh. I would recommend transfer to [facility] for higher level of care, patient will need surgical exploration of operation site to control infection. It was discussed with ED doc.
[2024-02-28] MEDS ORDERED: NA CHLORIDE 0.9% 1,000 ML ONE ×3 (18:04→23:07)
[2024-02-28] MEDS ORDERED: NA CHLORIDE 0.9% 250 ML ONE (18:28)
[2024-02-28] MEDS ORDERED: ACETAMINOPHEN 500 MG TAB ONE (20:56)
[2024-02-29 03:44] VITALS: BP 99/33; TEMP 98.3; O2SAT 95
== END 2024-02-29 00:05 | disposition short-term general hospital (02) ==
LOC: ER 13:16
DX: R41.82 Altered mental status, unspecified (principal); J18.8 Other pneumonia, unspecified organism; D64.9 Anemia, unspecified; E11.9 Type 2 diabetes mellitus without complications; J44.9 Chronic obstructive pulmonary disease, unspecified; F32.A Depression, unspecified; I10 Essential (primary) hypertension; Z95.1 Presence of aortocoronary bypass graft; Z79.01 Long term (current) use of anticoagulants; Z79.82 Long term (current) use of aspirin
CPT/HCPCS: 96365; 96361; 87040 ×2; 85025; 80048; 36415; 83735; 87205 ×2; 85610; 82947; 80076; 83605; 85730; 87077 ×2; 87186 ×2; 84484; 83880; 70450; 71045; 99285; J7050; J7040; J7030 ×3

== ENCOUNTER 2024-03-21 11:43 | Emergency (ER) | payer MEDICARE ==
--- NOTE | 2024-03-21 12:47 | RAD REPORT ---
Procedure: Chest Single View HISTORY: Cough COMPARISON: February 28, 2024 FINDINGS: The lungs appear clear of acute infiltrate. No significant pleural effusion noted. The heart is mildly enlarged. Neuro stimulator device in place. Scoliosis. . IMPRESSION: No acute abnormality is displayed.
[2024-03-21 14:15] LABS: SARS-CoV-2 Antigen CONTROL BLUE LINE VIS/BG OK; SARS-CoV-2 Antigen Rapid Res Negative (Negative)
[2024-03-21] MEDS ORDERED: ACETAMINOPHEN 500 MG TAB ONE (15:18)
[2024-03-21 15:51] LABS: Absolute Basophils 0.1 K/uL (0-0.5); Absolute Eosinophils 0.1 K/uL (0-0.5); Absolute Lymphocytes (CBC) 0.9 K/uL (0.7-4.9); Absolute Monocytes 0.7 K/uL (0.1-1.3); Absolute Neutrophil 8.2 K/uL (1.8-8.0); Basophils % 0.8 % (0-1.3); Eosinophils % 0.8 % (0-4.4); Hematocrit 29.1 % (36.0-45.0); Hemoglobin 9.6 g/dL (12.0-15.0); Lymphocytes % 9.2 % (15.3-44.8); MCH 29.2 pg (27.0-35.0); MCV 88.5 fL (80-100); MPV 8.9 fL (7.6-11.3); Monocytes % 7.3 % (3.3-12.3); Neutrophils % 81.9 % (41.7-73.7); Platelets 220 thou/uL (152-406); RBC Red Blood Cell Count 3.29 M/uL (3.86-4.86); Red Cell Distribution Width 15.9 % (12.1-15.2)
[2024-03-21 16:04] LABS: Anion Gap 6.9 mEq/L (5.0-15.0); Potassium 3.9 mEq/L (3.5-5.1); Troponin High Sensitivity 11.7 pg/mL (<58.9)
[2024-03-21] MEDS ORDERED: NA CHLORIDE 0.9% 250 ML ONE (16:33)
[2024-03-21] MEDS ORDERED: NA CHLORIDE 0.9% 1,000 ML ONE (17:00)
[2024-03-21 17:14] LABS: Sqamous Epithelial None Seen /HPF (None Seen); Urine Bacteria None Seen /HPF (<20); Urine Culture Reflex Order NOT NEEDED; Urine Micro Reflex YN NO BILL MICROSCOPIC; Urine RBC <5 /HPF (None Seen); Urine WBC <5 /HPF (<5); Urine WBC Clump Rare /HPF (None Seen)
[2024-03-21 17:16] LABS: Urine Color Yellow (Yellow)
[2024-03-21 17:17] LABS: Specific Gravity 1.013 (1.005-1.030); Urine Bilirubin Negative (Negative); Urine Blood Negative (Negative); Urine Clarity Clear (Clear); Urine Glucose Negative (Negative); Urine Ketones Negative (Negative); Urine Nitrite Negative (Negative); Urine Protein 1+ (Negative); Urine Urobilinogen Normal (Normal); Urine pH 5.5 (5.0-7.0)
--- NOTE | 2024-03-21 18:19 | ER ---
Nurse's Notes [facility] Name: Sia Salazar Age: 78 yrs Sex: Female : 1945 Arrival Date: 03/21/2024 Time: 11:43 Bed 15 Private MD: Diagnosis: Weakness;Viral infection, unspecified Presentation: 03/21 11:53 Chief complaint: Fever, chills, and cough x 2-3 days, generalized weakness and hb shakiness today. Coronavirus screen: Client presents with at least one sign or symptom that may indicate coronavirus-19. Provider contacted for isolation considerations. Ebola Screen: No symptoms or risks identified at this time. Initial Sepsis Screen: Does the patient meet any 2 criteria? No. Patient's initial sepsis screen is negative. Does the patient have a suspected source of infection? No. Patient's initial sepsis screen is negative. Risk Assessment: Do you want to hurt yourself or someone else? Patient reports no desire to harm self or others. Onset of symptoms was March 19, 2024. 11:53 Method Of Arrival: Ambulatory hb 11:53 Acuity: GREGG 3 hb Historical: - Allergies: 11:56 Actos; hb 11:56 Bactrim; hb 11:56 Clindamycin; hb 11:56 Codeine; hb 11:56 Crestor; hb 11:56 Darvocet-N 100; hb 11:56 Erythromycin; hb 11:56 Glimepiride; hb 11:56 Glipizide; hb 11:56 Iodinated Contrast Media - IV Dye; hb 11:56 Januvia; hb 11:56 Lipitor; hb 11:56 metformin; hb 11:56 metronidazole; hb 11:56 Morphine; hb 11:56 PENICILLINS; hb 11:56 Sulfa (Sulfonamide Antibiotics); hb 11:56 Wellbutrin; hb - Immunization history:: Adult Immunizations up to date. - Infectious Disease History:: Denies. - Social history:: Smoking status: unknown. Screenin:09 [facility] ED Fall Risk Assessment (Adult) History of falling in the last 3 months, kc6 including since admission Yes- single mechanical fall (1 pt) Confusion or Disorientation No (0 pts) Intoxicated or Sedated No (0 pts) Impaired Gait No (0 pts) Mobility Assist Device Used No (0 pt) Altered Elimination No (0 pt) Score/Fall Risk Level 0 - 2 = Low Risk Oriented to surroundings, Maintained a safe environment, Educated pt \T\ family on fall prevention, incl call for assistance when getting out of bed. Abuse screen: Denies threats or abuse. Denies injuries from another. Nutritional screening: No deficits noted. Tuberculosis screening: No symptoms or risk factors identified. Assessment: 16:09 General: Appears in no apparent distress. comfortable, well groomed, well developed, kc6 Behavior is calm, cooperative, appropriate for age, drowsy. Pain: Denies pain. Neuro: Level of Consciousness is awake, alert, obeys commands, Oriented to person, place, time, situation, Appropriate for age Reports dizziness, a syncopal episode weakness. Cardiovascular: Reports lightheadedness, Capillary refill < 3 seconds. Respiratory: Airway is patent Trachea midline Respiratory effort is even, unlabored, Respiratory pattern is regular, symmetrical. GI: No signs and/or symptoms were reported involving the gastrointestinal system. : No signs and/or symptoms were reported regarding the genitourinary system. EENT: No signs and/or symptoms were reported regarding the EENT system. Derm: No signs and/or symptoms reported regarding the dermatologic system. Skin is intact, is healthy with good turgor, Skin is dry, Skin is pale, Skin temperature is warm. Musculoskeletal: No signs and/or symptoms reported regarding the musculoskeletal system. Circulation, motion, and sensation intact. Range of motion: intact in all extremities. 17:09 Reassessment: Patient appears in no apparent distress at this time. No changes from [facility] previously documented assessment. Patient and/or family updated on plan of care and expected duration. Pain level reassessed. Patient is alert, oriented x 3, equal unlabored respirations, skin warm/dry/pink. 18:09 Reassessment: Patient appears in no apparent distress at this time. No changes from [facility] previously documented assessment. Patient and/or family updated on plan of care and expected duration. Pain level reassessed. Patient is alert, oriented x 3, equal unlabored respirations, skin warm/dry/pink. 18:30 Reassessment: pt ambulated around the nurses station x1 with wheelchair, witnessed by abril FELIX. pt denies any complaints at this time. Vital Signs: 11:53 BP 116 / 62; Pulse 109; Resp 18; Temp 99(TE); Pulse Ox 93% on R/A; Weight 58.97 kg; hb Height 5 ft. 2 in. ; Pain 3/10; 16:37 BP 125 / 39; Pulse 76; Resp 16 S; Pulse Ox 93% on R/A; kc6 16:42 BP 122 / 55; Pulse 69; ec2 11:53 Body Mass Index 23.78 (58.97 kg, 157.48 cm) hb 11:53 Pain Scale: Adult hb ED Course: 11:47 Patient arrived in ED. al6 11:48 Gadiel Rowland MD is Attending Physician. ec2 11:56 Triage completed. hb 11:56 Arm band placed on. hb 12:39 XRAY Chest (1 view) In Process Unspecified. EDMS 14:07 EKG done, COVID swab sent to lab. Flu and/or RSV swab sent to lab. tm3 15:21 Tammie George, PITER is Primary Nurse. kc6 16:09 Patient has correct armband on for positive identification. Placed in gown. Bed in low kc6 position. Call light in reach. Side rails up X2. Adult w/ patient. air sampling and monitoring on. Pulse ox on. NIBP on. Door closed. Noise minimized. Lights dimmed. Warm blanket given. Pillow given. 16:09 Inserted saline lock: 22 gauge in right antecubital area, using aseptic technique. kc6 Blood collected. Flushed with 10 mL NS. 18:35 No provider procedures requiring assistance completed. IV discontinued, intact, kc6 bleeding controlled, No redness/swelling at site. Pressure dressing applied. Administered Medications: 15:45 Drug: Acetaminophen PO 1000 mg PO once Route: PO; kc6 16:37 Follow up: Response: No adverse reaction kc6 16:37 Drug: NS 0.9% IV 250 ml IV at bolus once; to be given as a bolus over 30 minutes Route: kc6 IV; Rate: bolus; Site: right antecubital; 18:30 Follow up: Response: No adverse reaction; IV Status: Completed infusion; IV Intake: kc6 250ml 17:05 Drug: NS 0.9% IV 1000 ml IV at 1000 ml once; to be given as a bolus over 60 minutes kc6 Route: IV; Rate: 1000 ml; Site: right antecubital; 18:30 Follow up: Response: No adverse reaction; IV Status: Completed infusion; IV Intake: kc6 1000ml Medication: 18:35 VIS not applicable for this client. kc6 Intake: 18:30 IV: 1000ml; Total: 1000ml. kc6 18:30 IV: 250ml; Total: 1250ml. kc6 Outcome: 18:19 Discharge ordered by . ec2 18:35 Discharged to home via wheelchair, with family, kc6 18:35 Condition: good 18:35 Discharge instructions given to patient, family, Instructed on discharge instructions, follow up and referral plans. Demonstrated understanding of instructions, follow-up care, 18:37 Patient left the ED. kc6 Signatures: Dispatcher [employer] EDNestor Walters tm3 Gricel Rueda RN RN Tammie Dove RN RN kc6 Gadiel Rowland MD MD ec2 Rere Newberry6 Corrections: (The following items were deleted from the chart) 11:57 11:53 Acuity: GREGG 2 hb hb
--- NOTE | 2024-03-21 18:19 | EDPHYS ---
Physician Documentation [facility] Name: Sia Salazar Age: 78 yrs Sex: Female : 1945 Arrival Date: 03/21/2024 Time: 11:43 Bed 15 Private MD: ED Physician Gadiel Rowland HPI: 03/21 15:05 This 78 yrs old Female presents to ER via Ambulatory with complaints of ec2 Fever, General Weakness. 15:05 Patient arrives today for evaluation of subjective fevers and chills as well as ec2 generalized weakness. Occasional cough. No vomiting, no diarrhea, no shortness of breath, no abdominal pain, no urinary complaints.. Historical: - Allergies: 11:56 Actos; hb 11:56 Bactrim; hb 11:56 Clindamycin; hb 11:56 Codeine; hb 11:56 Crestor; hb 11:56 Darvocet-N 100; hb 11:56 Erythromycin; hb 11:56 Glimepiride; hb 11:56 Glipizide; hb 11:56 Iodinated Contrast Media - IV Dye; hb 11:56 Januvia; hb 11:56 Lipitor; hb 11:56 metformin; hb 11:56 metronidazole; hb 11:56 Morphine; hb 11:56 PENICILLINS; hb 11:56 Sulfa (Sulfonamide Antibiotics); hb 11:56 Wellbutrin; hb - Immunization history:: Adult Immunizations up to date. - Infectious Disease History:: Denies. - Social history:: Smoking status: unknown. ROS: 15:05 Constitutional: as per hpi ec2 Exam: 15:05 Constitutional: GEN: NAD Head: atraumatic Eyes: EOMI Ears: External ears are ec2 normal. CV: tachycardia LUNGS: no respiratory distress, no wheezes or rales or rhonchi ABD: non-distended SKIN: no evidence of rashes MSK: no evidence of trauma Vital Signs: 11:53 BP 116 / 62; Pulse 109; Resp 18; Temp 99(TE); Pulse Ox 93% on R/A; Weight 58.97 kg; hb Height 5 ft. 2 in. ; Pain 3/10; 16:37 BP 125 / 39; Pulse 76; Resp 16 S; Pulse Ox 93% on R/A; kc6 16:42 BP 122 / 55; Pulse 69; ec2 11:53 Body Mass Index 23.78 (58.97 kg, 157.48 cm) hb 11:53 Pain Scale: Adult hb MDM: 11:59 Medical Screening Exam initiated ec2 14:14 ED course: EKG independently reviewed and interpreted by me, shows normal sinus rhythm, ec2 rate of 92, no acute ST segment ovation send intervals are nonactionable, first-degree AV block noted.. 15:05 Data reviewed: vital signs, nurses notes. ED course: Patient arrives today for ec2 evaluation of generalized weakness and fevers. Examination is revealing for slight tachycardia otherwise reassuring pulmonary examination. Will obtain lab work. Viral swabs negative, chest x-ray negative.. 16:26 ED course: CBC shows slight anemia, patient with history of AVM, usually is anemic, ec2 renal dysfunction noted with a creatinine of 1.83 and GFR of 28. Chest x-ray shows no acute intrathoracic process.. 17:40 ED course: On reassessment patient with no acute distress, states that she feels ec2 better, patient does have hypotensive blood pressures, I discussed possible admission to the hospital and patient did not want to be admitted to the hospital. I instructed her that we should trial ambulation and see how she feels and if she feels asymptomatic we can try to safely discharge her.. 18:18 ED course: Patient ambulatory without issue. Will discharge home. Return precautions ec2 given.. 03/21 12:03 Order name: Basic Metabolic Panel; Complete Time: 16:25 ec2 03/21 12:03 Order name: CBC with Diff; Complete Time: 16:25 ec2 03/21 12:03 Order name: Troponin HS; Complete Time: 16:25 ec2 03/21 12:03 Order name: Influenza Screen (a \T\ B); Complete Time: 14:53 ec2 03/21 12:03 Order name: SARS RAPID; Complete Time: 14:53 ec2 03/21 12:03 Order name: UAM; Complete Time: 17:28 ec2 03/21 12:03 Order name: XRAY Chest (1 view); Complete Time: 12:54 ec2 03/21 12:03 Order name: Cardiac monitoring; Complete Time: 16:08 ec2 03/21 12:03 Order name: EKG - Nurse/Tech; Complete Time: 16:08 ec2 03/21 12:03 Order name: IV Saline Lock; Complete Time: 16:09 ec2 03/21 12:03 Order name: Labs collected and sent; Complete Time: 16:09 ec2 03/21 12:03 Order name: O2 Per Protocol; Complete Time: 15:24 ec2 03/21 12:03 Order name: O2 Sat Monitoring; Complete Time: 15:24 ec2 03/21 16:38 Order name: Misc. Order: urine please; Complete Time: 17:05 ec2 Administered Medications: 15:45 Drug: Acetaminophen PO 1000 mg PO once Route: PO; kc6 16:37 Follow up: Response: No adverse reaction kc6 16:37 Drug: NS 0.9% IV 250 ml IV at bolus once; to be given as a bolus over 30 minutes Route: kc6 IV; Rate: bolus; Site: right antecubital; 18:30 Follow up: Response: No adverse reaction; IV Status: Completed infusion; IV Intake: kc6 250ml 17:05 Drug: NS 0.9% IV 1000 ml IV at 1000 ml once; to be given as a bolus over 60 minutes kc6 Route: IV; Rate: 1000 ml; Site: right antecubital; 18:30 Follow up: Response: No adverse reaction; IV Status: Completed infusion; IV Intake: kc6 1000ml Disposition Summary: 03/21/24 18:19 Discharge Ordered Notes: Location: Home ec2 Condition: Stable ec2 Diagnosis - Weakness ec2 - Viral infection, unspecified ec2 Followup: ec2 - With: Private Physician - When: - Reason: Re-evaluation by your physician Discharge Instructions: - Discharge Summary Sheet ec2 - Viral Illness, Adult ec2 Forms: - Medication Reconciliation Form ec2 - Antibiotic Education ec2 - Prescription Opioid Use ec2 - Patient Portal Instructions ec2 - Leadership Thank You Letter ec2 Signatures: Dispatcher [employer] Gricel Borrego RN RN Tammie George RN RN kc6 Gadiel Rowland MD MD ec2 Corrections: (The following items were deleted from the chart) 12:03 12:03 BASIC METABOLIC PANEL+C.LAB.BRZ ordered. EDMS EDMS 12:03 12:03 CBC+H.LAB.BRZ ordered. EDMS EDMS 12:03 12:03 Troponin High Sensitivity+C.LAB.BRZ ordered. EDMS EDMS 12: 12:03 Influenza Screen (A \T\ B)+BA.LAB.BRZ ordered. EDMS EDMS 12: 12:03 SARS-COV-2 Antigen Rapid+I.LAB.BRZ ordered. EDMS EDMS 12: 12:03 Urinalysis W/Microscopic+U.LAB.BRZ ordered. EDMS EDMS 12:03 12:03 Chest Single View+RAD.RAD.BRZ ordered. EDMS EDMS
[2024-03-21 18:44] VITALS: TEMP 99; O2SAT 93
[2024-03-21 18:46] VITALS: BP 122/55
--- NOTE | 2024-03-27 11:24 | EKG ---
Test Date: 2024-03-21 Test Time: 14:04:59 Radio Communication Coordinator: CIERA MEASUREMENT RESULTS: Intervals: Rate: 92 ND: 222 QRSD: 86 QT: 386 QTc: 477 Wilcox: P: 7 ND: 222 QRS: -58 T: 64 INTERPRETIVE STATEMENTS: Sinus rhythm with 1st degree AV block with premature atrial complexes Left axis deviation Anteroseptal infarct, age undetermined Abnormal ECG Compared to ECG 02/28/2024 13:31:22 Atrial premature complex(es) now present First degree AV block now present Myocardial infarct finding still present Electronically Signed On 03-27-24 11:17:56 BLIND INSTALLER by Baljinder Harrison
== END 2024-03-21 18:37 | disposition home or self-care (01) ==
LOC: ER 11:43
DX: R53.1 Weakness (principal); B34.9 Viral infection, unspecified; Z79.899 Other long term (current) drug therapy; Z88.0 Allergy status to penicillin; Z88.1 Allergy status to other antibiotic agents; Z88.2 Allergy status to sulfonamides; Z88.5 Allergy status to narcotic agent; Z88.8 Allergy status to other drugs, medicaments and biological substances
CPT/HCPCS: 96361; 93005; 85025; 81001; 80048; 36415; 84484; 87804 ×2; 71045; 96360; 99285; 87811; J7050; J7030

== ENCOUNTER 2024-03-27 15:13 | Inpatient (IN) | payer MEDICARE, OTHER ==
[2024-03-27 17:24] LABS: Absolute Basophils 0.1 K/uL (0-0.5); Absolute Lymphocytes (CBC) 0.4 K/uL (0.7-4.9); Absolute Monocytes 0.8 K/uL (0.1-1.3); Absolute Neutrophil 12.5 K/uL (1.8-8.0); Basophils % 0.8 % (0-1.3); Eosinophils % 0.1 % (0-4.4); Hematocrit 31.9 % (36.0-45.0); Hemoglobin 10.4 g/dL (12.0-15.0); Lymphocytes % 2.9 % (15.3-44.8); MCH 27.7 pg (27.0-35.0); MCHC 32.4 g/dL (32.0-36.0); MCV 85.6 fL (80-100); MPV 9.4 fL (7.6-11.3); Monocytes % 5.6 % (3.3-12.3); Neutrophils % 90.6 % (41.7-73.7); Platelets 272 thou/uL (152-406); RBC Red Blood Cell Count 3.73 M/uL (3.86-4.86); Red Cell Distribution Width 16.2 % (12.1-15.2)
[2024-03-27] MEDS ORDERED: ACETAMINOPHEN 325 MG TABLET ONE (17:29)
[2024-03-27] MEDS ORDERED: NA CHLORIDE 0.9% 500 ML ONE (17:30)
[2024-03-27] MEDS ORDERED: NA CHLORIDE 0.9% 1,000 ML ONE (17:30)
[2024-03-27 17:39] LABS: SARS-CoV-2 Antigen CONTROL BLUE LINE VIS/BG OK; SARS-CoV-2 Antigen Rapid Res Negative (Negative)
[2024-03-27 17:45] LABS: Albumin 2.6 g/dL (3.4-5.0); Albumin/Globulin Ratio 0.6 (1.1-1.8); Anion Gap 13.4 mEq/L (5.0-15.0); Bilirubin Total 0.6 mg/dL (0.2-1.0); Globulin 4.7 g/dL (2.3-3.5); Protein, Total 7.3 g/dL (6.4-8.2)
[2024-03-27 17:46] LABS: Potassium 4.4 mEq/L (3.5-5.1)
[2024-03-27] MEDS ORDERED: DIPHENHYDRAMINE 25 MG TAB/CAP ONE (19:11)
[2024-03-27 19:25] LABS: Sqamous Epithelial None Seen /HPF (None Seen); Urine Bacteria None Seen /HPF (<20); Urine Culture Reflex Order NOT NEEDED; Urine Microscopic Reflex YN ORDER UMIC; Urine Mucus Slight /HPF (None Seen); Urine RBC <5 /HPF (None Seen); Urine WBC <5 /HPF (<5); Urine WBC Clump Rare /HPF (None Seen); Urine Yeast (Budding) Trace /HPF (None Seen)
[2024-03-27 19:26] LABS: Urine Color Yellow (Yellow)
[2024-03-27 19:27] LABS: Specific Gravity 1.018 (1.005-1.030); Urine Bilirubin Negative (Negative); Urine Blood Negative (Negative); Urine Clarity Clear (Clear); Urine Glucose Negative (Negative); Urine Ketones Negative (Negative); Urine Nitrite Negative (Negative); Urine Protein 1+ (Negative); Urine Urobilinogen Normal (Normal); Urine pH 5.5 (5.0-7.0)
--- NOTE | 2024-03-27 20:17 | EDPHYS ---
Physician Documentation [facility] Name: Sia Salazar Age: 78 yrs Sex: Female : 1945 Arrival Date: 03/27/2024 Time: 15:13 Bed 13 Private MD: ED Physician Tiffany Starr HPI: 03/27 18:13 This 78 yrs old Female presents to ER via EMS with complaints of General gb1 Weakness, Diarrhea. 18:13 78-year-old female here with generally weakness and diarrhea that has been dark/black gb1 in nature. Patient has history of constipation with AVMs in her intestines. She has history of chronic mesenteric ischemia as well as well as ischemic bowel disease. She is having fever and chills and is overall feels generally weak. She denies any nausea or vomiting. Patient's appetite has been decreased per her daughter and she is just not been acting herself. Patient was seen here on the weekend and discharged home with routine outpatient follow-up for the same complaints. She is currently on octreotide. Patient is also diabetic.. Historical: - Allergies: 15:40 Actos; rs5 15:40 Bactrim; rs5 15:40 Clindamycin; rs5 15:40 Codeine; rs5 15:40 Crestor; rs5 15:40 Darvocet-N 100; rs5 15:40 Erythromycin; rs5 15:40 Glimepiride; rs5 15:40 Glipizide; rs5 15:40 Iodinated Contrast Media - IV Dye; rs5 15:40 Januvia; rs5 15:40 Lipitor; rs5 15:40 metformin; rs5 15:40 metronidazole; rs5 15:40 Morphine; rs5 15:40 PENICILLINS; rs5 15:40 Sulfa (Sulfonamide Antibiotics); rs5 15:40 Wellbutrin; rs5 - PMHx: 15:40 constipation (SBO); ischemic bowel disease; chronic mesenteric ischemia; SBO; rs5 bronchospastic airway disease; celiac artery stenosis; peripheral artery disease; Diabetes - IDDM; Depression; COPD; chronic pulmonary embolism; GERD; bowel AVMs; angiodysplasia; Cerebrovascular disease; ibs; - PSHx: 15:40 Cholecystectomy; Tonsillectomy; Coronary artery bypass graft; rs5 - Immunization history:: Adult Immunizations up to date. - Infectious Disease History:: Denies. - Social history:: Smoking status: Patient denies any tobacco usage or history of. Exam: 18:13 Constitutional: This is a well developed, well nourished patient who is awake, alert, gb1 and in no acute distress, patient appears pale and lethargic.. Head/Face: Normocephalic, atraumatic. Eyes: Pupils equal round and reactive to light, extra-ocular motions intact. Lids and lashes normal. Conjunctiva and sclera are non-icteric and not injected. Cornea within normal limits. Periorbital areas with no swelling, redness, or edema. ENT: Nares patent. No nasal discharge, no septal abnormalities noted. Tympanic membranes are normal and external auditory canals are clear. Oropharynx with no redness, swelling, or masses, exudates, or evidence of obstruction, uvula midline. Mucous membranes moist. Neck: Trachea midline, no thyromegaly or masses palpated, and no cervical lymphadenopathy. Supple, full range of motion without nuchal rigidity, or vertebral point tenderness. No Meningismus. Chest/axilla: Normal chest wall appearance and motion. Nontender with no deformity. No lesions are appreciated. Cardiovascular: Regular rate and rhythm with a normal S1 and S2. No gallops, murmurs, or rubs. Normal PMI, no JVD. No pulse deficits. Respiratory: Lungs have equal breath sounds bilaterally, clear to auscultation and percussion. No rales, rhonchi or wheezes noted. No increased work of breathing, no retractions or nasal flaring. Abdomen/GI: Soft, non-tender, with normal bowel sounds. No distension or tympany. No guarding or rebound. No evidence of tenderness throughout. Back: No spinal tenderness. No costovertebral tenderness. Full range of motion. Skin: Warm, dry with normal turgor. Normal color with no rashes, no lesions, and no evidence of cellulitis. MS/ Extremity: Pulses equal, no cyanosis. Neurovascular intact. Full, normal range of motion. Vital Signs: 15:39 BP 155 / 88; Pulse 77; Resp 18; Temp 101.7(O); Pulse Ox 98% on R/A; rs5 16:55 BP 117 / 70; Pulse 84; Resp 17; Pulse Ox 97% on R/A; rs5 17:25 Weight 52.16 kg; rs5 17:53 BP 121 / 73; Pulse 80; Resp 16; Temp 99(O); Pulse Ox 98% on R/A; rs5 18:09 BP 125 / 77; Pulse 80; Resp 17; Pulse Ox 98% on R/A; rs5 MDM: 15:40 Medical Screening Exam initiated gb1 20:05 Data reviewed: vital signs, nurses notes, lab test result(s). ED course: 78-year-old gb1 female with history of AVMs and here with melena stools and diarrhea with a fever, initial concern for acute GI bleed secondary to AVM. I discussed with patient needed CT angiogram of the abdomen pelvis she had a outbreak of urticaria and difficulty breathing with the last CT scan with IV contrast 20 years ago. Patient adamantly refused CT abdomen pelvis angiogram today even with Benadryl and steroids on board. I suspect she has a colitis likely infectious versus acute diverticulitis. I doubt ischemic bowel as she clinically does not appear that sick. Patient's daughter is not here to discuss with have shared decision making. Patient is not been eating and drinking well has a creatinine of 2.12 which is slightly elevated from her baseline. I like I consider this likely prerenal she has not been eating or drinking well since has not been feeling well. I will plan to admit her to the observation unit under Dr. Lino's service. . 03/27 16:39 Order name: CBC with Diff; Complete Time: 18:05 [facility] 03/27 16:39 Order name: CMP; Complete Time: 18:05 [facility] 03/27 16:39 Order name: Lipase; Complete Time: 18:05 03/27 16:39 Order name: Urinalysis w/ reflexes; Complete Time: 19:35 gb03/27 16:40 Order name: SARS RAPID; Complete Time: 18:05 03/27 16:40 Order name: Flu; Complete Time: 18:05 03/27 16:40 Order name: Blood Culture Adult (2) gb1 03/27 16:40 Order name: Lactate w/ 2H reflex if indic.; Complete Time: 18:05 [facility] 03/27 20:52 Order name: CBC with Automated Diff EDMS 03/27 20:52 Order name: CBC with Automated Diff EDMS 03/27 20:52 Order name: Comprehensive Metabolic Panel EDMS 03/27 20:52 Order name: Comprehensive Metabolic Panel EDMS 03/27 20:52 Order name: C.difficile GDH Ag EDMS 03/28 09:15 Order name: CBC Smear Scan EDMS 03/28 11:29 Order name: Gram Stain--Aerobic Bottle EDMS 03/28 11:30 Order name: Gram Stain--Aerobic Bottle EDMS 03/27 16:39 Order name: IV Saline Lock; Complete Time: 17:48 gb1 03/27 16:39 Order name: Labs collected and sent; Complete Time: 17:48 gb1 Administered Medications: 17:00 Drug: Acetaminophen PO 650 mg PO once Route: PO; rs5 18:01 Follow up: Response: No adverse reaction; Temperature is decreased rs5 17:33 Drug: NS 0.9% IV (30 ml/kg) 30 ml/kg IV at bolus once; Sepsis Protocol; to be given as rs5 a bolus over 90 minutes Route: IV; Rate: bolus; Site: left antecubital; 17:50 Follow up: Response: No adverse reaction rs5 19:00 Follow up: Response: No adverse reaction; IV Status: Completed infusion; IV Intake: jl7 1564.8ml 19:26 Drug: diphenhydrAMINE PO 25 mg PO once Route: PO; br2 20:30 Follow up: Response: No adverse reaction br2 22:29 Drug: Rocephin IV 2 grams IV at bolus once; Given slow IV push per pharmarcy br2 instructions Route: IV; Rate: bolus; Site: left hand; 23:30 Follow up: Response: No adverse reaction; IV Status: Completed infusion; IV Intake: [id number] Disposition Summary: 03/27/24 20:17 Hospitalization Ordered Notes: Hospitalization Status: Observation gb1 Provider: Matthew Lino Condition: Stable gb1 Problem: chronic gb1 Symptoms: have worsened gb1 Bed/Room Type: Standard gb1 Location: Telemetry/MedSurg (observation)(03/28/24 12:02) bc6 Room Assignment: [facility](03/28/24 12:02) 6 Diagnosis - Infectious gastroenteritis and colitis, unspecified gb1 - Abnormal results of kidney function studies gb1 Forms: - Medication Reconciliation Form gb1 - SBAR form gb1 - Leadership Thank You Letter gb1 Signatures: Dispatcher [employer] EDMS Yadi Weiss RN RN vc1 Stephen Dean, RN RN rs5 Queenie Gastelum bc6 Tiffany Starr MD MD gb1 Megan Jones RN RN br2 Brent Zambrano RN jl7 Corrections: (The following items were deleted from the chart) 16:40 16:40 BLOOD CULTURE*+BA.LAB.BRZ ordered. EDMS EDMS 16:40 16:40 LACTATE+C.LAB.BRZ ordered. EDMS EDMS 18:10 18:10 Abdomen Angio+CT.RAD.BRZ ordered. EDMS EDMS 22:08 20:17 Telemetry/MedSurg (observation) 1 vc1 22:08 20:17 gb1 vc1 03/28 12:02 03/27 22:08 [facility] ER HOLD vc1 6 03/28 12:02 03/27 22:08 ERHOLD- vc1 6
--- NOTE | 2024-03-27 20:17 | ER ---
Nurse's Notes [facility] Name: Sia Salazar Age: 78 yrs Sex: Female : 1945 Arrival Date: 03/27/2024 Time: 15:13 Bed 13 Private MD: Diagnosis: Infectious gastroenteritis and colitis, unspecified;Abnormal results of kidney function studies Presentation: 03/27 15:39 Chief complaint: EMS states: Shivers, generalized weakness, and tarry diarrhea x3 days. rs5 Coronavirus screen: At this time, the client does not indicate any symptoms associated with coronavirus-19. Ebola Screen: No symptoms or risks identified at this time. Initial Sepsis Screen: Does the patient meet any 2 criteria? No. Patient's initial sepsis screen is negative. Does the patient have a suspected source of infection? No. Patient's initial sepsis screen is negative. Risk Assessment: Do you want to hurt yourself or someone else? Patient reports no desire to harm self or others. Onset of symptoms was March 27, 2024. 15:39 Method Of Arrival: EMS: [facility] rs5 15:39 Acuity: GREGG 3 rs5 Historical: - Allergies: 15:40 Actos; rs5 15:40 Bactrim; rs5 15:40 Clindamycin; rs5 15:40 Codeine; rs5 15:40 Crestor; rs5 15:40 Darvocet-N 100; rs5 15:40 Erythromycin; rs5 15:40 Glimepiride; rs5 15:40 Glipizide; rs5 15:40 Iodinated Contrast Media - IV Dye; rs5 15:40 Januvia; rs5 15:40 Lipitor; rs5 15:40 metformin; rs5 15:40 metronidazole; rs5 15:40 Morphine; rs5 15:40 PENICILLINS; rs5 15:40 Sulfa (Sulfonamide Antibiotics); rs5 15:40 Wellbutrin; rs5 - PMHx: 15:40 constipation (SBO); ischemic bowel disease; chronic mesenteric ischemia; SBO; rs5 bronchospastic airway disease; celiac artery stenosis; peripheral artery disease; Diabetes - IDDM; Depression; COPD; chronic pulmonary embolism; GERD; bowel AVMs; angiodysplasia; Cerebrovascular disease; ibs; - PSHx: 15:40 Cholecystectomy; Tonsillectomy; Coronary artery bypass graft; rs5 - Immunization history:: Adult Immunizations up to date. - Infectious Disease History:: Denies. - Social history:: Smoking status: Patient denies any tobacco usage or history of. Screenin:44 [facility] ED Fall Risk Assessment (Adult) History of falling in the last 3 months, rs5 including since admission No falls in past 3 months (0 pts) Confusion or Disorientation No (0 pts) Intoxicated or Sedated No (0 pts) Impaired Gait Yes (1 pt) Mobility Assist Device Used Yes (1 pt) Altered Elimination No (0 pt) Score/Fall Risk Level 0 - 2 = Low Risk Oriented to surroundings, Maintained a safe environment. Abuse screen: Denies threats or abuse. Nutritional screening: No deficits noted. Tuberculosis screening: No symptoms or risk factors identified. Assessment: 15:44 General: Appears in no apparent distress. uncomfortable, Behavior is calm, cooperative. rs5 Pain: Complains of pain in generalized Pain currently is 3 out of 10 on a pain scale. Quality of pain is described as aching. Neuro: Level of Consciousness is awake, alert, obeys commands, Oriented to person, place, time, situation. Cardiovascular: Patient's skin is warm and dry. Respiratory: Airway is patent Respiratory effort is even, unlabored, Respiratory pattern is regular, symmetrical. GI: Abdomen is round non-distended, Abd is soft and non tender X 4 quads. Reports nausea, tarry diarrhea. : No signs and/or symptoms were reported regarding the genitourinary system. EENT: No signs and/or symptoms were reported regarding the EENT system. Derm: Skin is intact, Skin is pink, warm \T\ dry. Musculoskeletal: Range of motion: intact in all extremities. 16:05 Reassessment: awaiting orders from provider, provider notified there are no current rs5 orders. 16:40 Reassessment: Patient and/or family updated on plan of care and expected duration. Pain rs5 level reassessed. Patient is alert, oriented x 3, equal unlabored respirations, skin warm/dry/pink. 17:53 Reassessment: Patient and/or family updated on plan of care and expected duration. Pain rs5 level reassessed. Patient is alert, oriented x 3, equal unlabored respirations, skin warm/dry/pink. 18:37 Reassessment: Patient and/or family updated on plan of care and expected duration. Pain rs5 level reassessed. Patient is alert, oriented x 3, equal unlabored respirations, skin warm/dry/pink. 18:40 Reassessment: provider notified of latest vitals. rs5 19:49 Reassessment: Patient and/or family updated on plan of care and expected duration. Pain br2 level reassessed. PT IV INFILTRATED. PT IS ALSO REFUSING IV CONTRACT DUE TO REACTIONS SHE HAD LAST TIME TAKEN....SOB, THROAT CLOSING AND HIVES... 23:00 Reassessment: No changes from previously documented assessment. Patient and/or family br2 updated on plan of care and expected duration. Pain level reassessed. Patient is alert, oriented x 3, equal unlabored respirations, skin warm/dry/pink. Patient states feeling better. 03/28 02:30 Reassessment: No changes from previously documented assessment. Patient and/or family br2 updated on plan of care and expected duration. Pain level reassessed. Patient is alert, oriented x 3, equal unlabored respirations, skin warm/dry/pink. Patient denies pain at this time. Patient states symptoms have improved. 05:00 Reassessment: No changes from previously documented assessment. Patient is alert, br2 oriented x 3, equal unlabored respirations, skin warm/dry/pink. Patient states feeling better. Patient states symptoms have improved. Vital Signs: 03/27 15:39 BP 155 / 88; Pulse 77; Resp 18; Temp 101.7(O); Pulse Ox 98% on R/A; rs5 16:55 BP 117 / 70; Pulse 84; Resp 17; Pulse Ox 97% on R/A; rs5 17:25 Weight 52.16 kg; rs5 17:53 BP 121 / 73; Pulse 80; Resp 16; Temp 99(O); Pulse Ox 98% on R/A; rs5 18:09 BP 125 / 77; Pulse 80; Resp 17; Pulse Ox 98% on R/A; rs5 ED Course: 15:38 Patient arrived in ED. rs5 15:40 Triage completed. rs5 15:40 Tiffany Starr MD is Attending Physician. gb1 15:44 Patient has correct armband on for positive identification. Placed in gown. Bed in low rs5 position. Call light in reach. Side rails up X2. 15:44 No provider procedures requiring assistance completed. rs5 16:11 Stephen Dean, RN is Primary Nurse. rs5 16:55 Missed attempt(s): 22 gauge in right forearm. Bleeding controlled, band aid applied, rs5 catheter tip intact. 17:01 Missed attempt(s): 22 gauge in left forearm. Bleeding controlled, band aid applied, rs5 catheter tip intact. 17:22 Inserted saline lock: 22 gauge in left antecubital area, using aseptic technique. rs5 Flushed with 10 mL NS. 19:17 Urinalysis w/ reflexes Sent. rv1 19:48 Report received from PITER DEMARCO. br2 20:16 Matthew Lino MD is Hospitalizing Provider. gb1 22:29 IV discontinued, INFILTRATION. br2 22:30 Inserted saline lock: 24 gauge in left hand, using aseptic technique. Flushed with 10 br2 mL NS. 22:30 Missed attempt(s): 22 gauge in right hand. br2 03/28 00:44 Primary Nurse role handed off by Stephen Dean, PITER br2 00:44 Megan Jones, PITER is Primary Nurse. br2 13:32 IV discontinued, intact, bleeding controlled, No redness/swelling at site. Pressure ty dressing applied, IV no longer taking fluid or pulling. Inserted saline lock: 22 gauge in left wrist, using aseptic technique. Blood collected. Flushed with 10 mL NS. 13:44 Provided Education on: need for admit. tm6 Administered Medications: 03/27 17:00 Drug: Acetaminophen PO 650 mg PO once Route: PO; rs5 18:01 Follow up: Response: No adverse reaction; Temperature is decreased rs5 17:33 Drug: NS 0.9% IV (30 ml/kg) 30 ml/kg IV at bolus once; Sepsis Protocol; to be given as rs5 a bolus over 90 minutes Route: IV; Rate: bolus; Site: left antecubital; 17:50 Follow up: Response: No adverse reaction rs5 19:00 Follow up: Response: No adverse reaction; IV Status: Completed infusion; IV Intake: jl7 1564.8ml 19:26 Drug: diphenhydrAMINE PO 25 mg PO once Route: PO; br2 20:30 Follow up: Response: No adverse reaction br2 22:29 Drug: Rocephin IV 2 grams IV at bolus once; Given slow IV push per [employer] br2 instructions Route: IV; Rate: bolus; Site: left hand; 23:30 Follow up: Response: No adverse reaction; IV Status: Completed infusion; IV Intake: [id number] Medication: 16:14 VIS not applicable for this client. rs5 Intake: 19:00 IV: 1565ml; Total: 1565ml. jl7 23:30 IV: 10ml; Total: 1575ml. br2 Outcome: 20:17 Decision to Hospitalize by Provider. gb1 22:00 Admitted to ER Hold. [facility] see [facility] for further documentation. jl7 22:00 Condition: stable 22:00 Instructed on the need for admit, Demonstrated understanding of instructions, 03/28 13:45 Patient left the ED. tm6 Signatures: Brent Zambrano RN RN jl7 Zelda Moya Rebecca rv1 Stephen Dean RN RN rs5 Tiffany Starr MD MD gb1 Evelin Noel RN RN tm6 Brown Sinha Belinda, RN RN br2 Corrections: (The following items were deleted from the chart) 03/27 15:44 15:39 BP 155 / 88; Pulse 77bpm; Resp 18bpm; Pulse Ox 98% RA; Temp 99.9F Oral; rs5 rs5 17:53 17:48 Inserted saline lock: 22 gauge in left antecubital area, using aseptic technique. rs5 Flushed with 10 mL NS zm 19:13 17:53 BP 121 / 73; Pulse 80bpm; Resp 16bpm; Pulse Ox 98% RA; rs5 rs5 19:14 18:37 BP 125 / 77; Pulse 80bpm; Resp 17bpm; Pulse Ox 98% RA; rs5 rs5
[2024-03-27] MEDS ORDERED: LOPERAMIDE HCL 2 MG CAPSULE PO PRN (20:51)
--- NOTE | 2024-03-27 20:55 | P.HP ---
Certification for Inpatient Patient admitted to: Inpatient With expected LOS: >2 Midnights Practitioner: I am a practitioner with admitting privileges, knowledge of patient current condition, hospital course, and medical plan of care. Services: Services provided to patient in accordance with Admission requirements found in Title 42 Section 412.3 of the Code of Federal Regulations Patient History Date of Service: 03/27/24 Reason for admission: Diarrhea altered mental status History of Present Illness: Patient is 78 years of age currently admitted has extensive intra-abdominal history with ischemic bowel disease celiac artery stenosis patient is known unresponsive to obtain any information apparently she was having some dark melanic stools recently to confirm data obtained from review of emergency room notes and discussing with the emergency room doctor Allergies atorvastatin [From Lipitor] Allergy (Verified 01/04/22 23:16) Unknown codeine Allergy (Verified 01/04/22 23:16) Unknown glimepiride Allergy (Verified 01/04/22 23:16) Unknown glipizide Allergy (Verified 01/04/22 23:16) Unknown Iodinated Contrast Media [Iodinated Contrast Media - Oral and] Allergy (Verified 01/04/22 23:16) Unknown Penicillins Allergy (Verified 01/04/22 23:16) Unknown pioglitazone [From Actos] Allergy (Verified 01/04/22 23:16) Unknown rosuvastatin [From Crestor] Allergy (Verified 01/04/22 23:16) Unknown sitagliptin [From Januvia] Allergy (Verified 01/04/22 23:16) Unknown Sulfa (Sulfonamide Antibiotics) Allergy (Verified 01/04/22 23:16) Unknown sulfamethoxazole [From Bactrim] Allergy (Verified 01/04/22 23:16) Unknown trimethoprim [From Bactrim] Allergy (Verified 01/04/22 23:16) Unknown Clindamycin Allergy (Uncoded 12/12/21 08:04) Unknown Darvocet-N Allergy (Uncoded 12/12/21 08:04) Unknown eryt Allergy (Uncoded 12/12/21 08:04) Unknown metformin Allergy (Uncoded 12/12/21 08:04) Unknown morphine Allergy (Uncoded 12/12/21 08:04) Unknown Wellbutr Allergy (Uncoded 12/12/21 08:04) Unknown Home Medications: Insulin 70/30 NPH/Reg Human [Novolin 70/30*] 12 unit SQ BID 01/05/22 Magnesium Oxide 400 mg PO BID 06/03/22 Aspirin 81 mg PO DAILY 11/11/23 Citalopram Hydrobromide [Citalopram HBr] 40 mg PO DAILY 11/11/23 Cyclobenzaprine HCl [Flexeril] 5 mg PO BEDTIME PRN PRN 11/11/23 Docusate Sodium [Stool Softener] 200 mg PO DAILY 11/11/23 Ferrous Sulfate [Ferrous Sulfate*] 325 mg PO BEDTIME 11/11/23 Insulin Regular, Human [Novolin R] See Rx Instructions .ROUTE .COMPLEX 11/11/23 Losartan Potassium 100 mg PO DAILY 11/11/23 Metoprolol Succinate [Toprol Xl*] 25 mg PO [id number] 11/11/23 Octreotide [Sandostatin] 100 mcg IJ BID 11/11/23 Pantoprazole [Protonix Tab*] 40 mg PO DAILY 11/11/23 Pregabalin 50 mg PO TID 11/11/23 Sennosides/Docusate Sodium [Senna-S Tablet] 2 tab PO DAILY 11/11/23 Spironolactone [Aldactone*] 25 mg PO BEDTIME 11/11/23 Tizanidine [Zanaflex] 2 mg PO BEDTIME 11/11/23 - Past Medical/Surgical History Diabetic: Yes -: SBO -: AVM -: angiodysplasia on octrotide -: ischemic bowel disease -: celiac artherial stenosis -: IBS -: IDDM -: COPD -: PAD -: Chronic mesenteric ischemia -: GERD -: Esophageal pulmonary emboli -: Abdominal/Stomach surgery -: tonsillectomy -: cholecystectomy Psychosocial/ Personal History: Lives with her Daughter in one story home. Has a w/c, walker, cane. Does not have home O2. - Social History Alcohol use: No CD- Drugs: No Caffeine use: No Review of Systems is unable to be obtained Physical Examination - Vital Signs Temperature: 101.7 F Blood Pressure: 155/88 Pulse: 77 Respirations: 14 Pulse Ox (%): 98 - Physical Exam General: Unresponsive Respiratory: Clear to auscultation bilaterally Cardiovascular: No edema, Regular rate/rhythm, Normal S1 S2 Gastrointestinal: Normal bowel sounds, Soft and benign, Non-distended Musculoskeletal: No clubbing, No swelling Integumentary: No rashes, No breakdown - Studies Laboratory Data (last 24 hrs) 03/27/24 03/27/24 17:12 17:12 WBC 13.80 H Hgb 10.4 L Hct 31.9 L Plt Count 272 Sodium 130 L Potassium 4.4 BUN 48 H Creatinine 2.17 H Glucose 235 H Total Bilirubin 0.6 AST 64 H ALT 31 Alkaline Phosphatase 215 H Lipase 97 H Microbiology Data (last 24 hrs): 03/27/24 17:16 Nasopharnyx Influenza Type A Antigen Screen - Final 03/27/24 17:16 Nasopharnyx Influenza Type B Antigen Screen - Final Assessment and Plan - Problems (Diagnosis) (1) Diarrhea Current Visit: Yes Status: Acute Plan: Patient is 78 years of age admitted with altered mental status unable to obtain any information patient is unresponsive extensive intra-abdominal history with ischemic bowel disease celiac artery stenosis patient has acute on chronic renal failure also has some fever elevated white count chest x-ray is clear abdomen is nondistended will check for C. 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
[2024-03-27] MEDS: D5 0.9 NS 1,000 ML IV SCH (21:00)
[2024-03-27] MEDS ORDERED: CEFTRIAXONE 2000 MG/VIAL ONE (21:55)
[2024-03-28] MEDS ORDERED: D5W 1,000 ML IV ONE (01:01)
[2024-03-28 06:08] LABS: Absolute Basophils 0.1 K/uL (0-0.5); Absolute Lymphocytes (CBC) 0.3 K/uL (0.7-4.9); Absolute Monocytes 0.9 K/uL (0.1-1.3); Absolute Neutrophil 10.8 K/uL (1.8-8.0); Basophils % 0.4 % (0-1.3); Hematocrit 24.6 % (36.0-45.0); Lymphocytes % 2.7 % (15.3-44.8); MCH 28.1 pg (27.0-35.0); MCHC 32.8 g/dL (32.0-36.0); MCV 85.8 fL (80-100); Monocytes % 7.6 % (3.3-12.3); Neutrophils % 89.3 % (41.7-73.7); Platelets 211 thou/uL (152-406); RBC Red Blood Cell Count 2.86 M/uL (3.86-4.86); Red Cell Distribution Width 15.6 % (12.1-15.2)
[2024-03-28 06:19] LABS: Albumin 2.1 g/dL (3.4-5.0); Albumin/Globulin Ratio 0.6 (1.1-1.8); Anion Gap 12.5 mEq/L (5.0-15.0); Bilirubin Total 0.4 mg/dL (0.2-1.0); Globulin 3.7 g/dL (2.3-3.5); Potassium 3.5 mEq/L (3.5-5.1); Protein, Total 5.8 g/dL (6.4-8.2)
--- NOTE | 2024-03-28 06:48 | P.PN ---
Date of Service: 03/28/24 Subjective: reports 1 large bowel movement at home. none since arrival to ER yesterday black stools - she reports chronic / intermittent since she has AVMs 1 week of not feeling well / chills / rigors denies any pulmonary/urinary / skin issues/infection symptoms reports decreased appetite and having some generalized abdominal pain still feeling "run down", weak ROS: 10 point ROS as noted above, otherwise negative Physical Exam: GEN: Alert, fatigued appearing CV: Regular rate and rhythm, no edema Pulm: Nonlabored respirations on room air, clear bilaterally ABD: soft, nontender, nondistended Integumentary: No rashes, surgical incision sites well-healed Neuro: Normal speech, normal affect Problem List: Gram negative Bacteremia Hx Pseudomonas Bacteremia Fever, Diarrhea GIANCARLO on CKD3 Hypertension NIDDM2 with neuropathy COPD, chronic Urinary Retention hx PAD s/p recent R Axillary Bifemoral bypass (02/10/24) Hx recurrent GI Bleed secondary to AVM; on octreotide Hx chronic mesenteric ischemia s/p SMA bypass Hx celiac artery stenosis s/p stent (2015, 2022) Gram negative Bacteremia Hx Pseudomonas Bacteremia Fever, Diarrhea on admission, presents with generalized weakness, fevers, chills, diarrhea (dark/black) for several days. Family states she hasn't been acting herself lately. Recently seen in ED 03/21 for similar symptoms. Previously transferred to [facility] (02/27) for higher level of care given her severe sepsis with no source Blood cultures previously grew Pseudomonas in 2/4 bottles at the time (02/27) She required [address] [facility]. She declined push enteroscopy recommended by GI due to her improvement at the time. No source was found but suspected bacteremia could have been gut translocation. She completed 1 week of oral Levaquin per ID recs. family report a 2-3 delay in obtaining antibiotic after discharge. CT abdomen @[facility] (03/02): axillary bifemoral bypass. Small amount of fluid surrounds the bypass graft in right abdominal wall. Noticeably distended bladder. Trace R pleural effusion. Blood cx (03/27): GNR in 2/4 bottles continue empiric levaquin (03/28-) Blood cx (02/27): previously grew Pseudomonas Aeruginosa with intermediate resistance to cipro 101.7 fever overnight, +leukocytosis ID consulted diet as tolerated unclear source, will check CT GIANCARLO on CKD3 continue to monitor renal function continue d5w @100ml/hr Baseline Cr ~1.4-1.5 Hypertension NIDDM2 with neuropathy COPD, chronic Urinary Retention confirm home meds, restart as appropriate hx PAD s/p recent R Axillary Bifemoral bypass (02/10/24) Has upcoming f/u with Dr. Cheng on 04/03/24 Hx recurrent GI Bleed secondary to AVM; on octreotide Hx chronic mesenteric ischemia s/p SMA bypass Hx celiac artery stenosis s/p stent (2015, 2022) confirm home meds, restart as appropriate Code: Full Dispo: Home Pending cultures, ID recs, diarrhea improves, afebrile > 24 hours Time Spent Managing Pts Care (In Minutes): 55
[2024-03-28] MEDS: Levofloxacin 750mg IV 750 MG/150 ML BAG IV SCH (07:00)
[2024-03-28] MEDS ORDERED: Levofloxacin 750mg IV 750 MG/150 ML BAG IV ONE (07:58)
[2024-03-28 09:15] LABS: Anisocytosis SLIGHT; Blood Morphology Comment NOTED (NOT SEEN); Hypochromasia 1+; Platelet Estimate ADEQ; Toxic Granulation NOTED; White Blood Cell Scan OK (OK)
[2024-03-28] MEDS ORDERED: D5 0.9 NS 1,000 ML IV ONE (12:20)
[2024-03-28 14:04] LABS: Hematocrit 24.8 % (36.0-45.0); Hemoglobin 7.9 g/dL (12.0-15.0)
[2024-03-28] MEDS ORDERED: GLUCAGON 1 MG/VIAL IM PRN (16:24)
[2024-03-28] MEDS ORDERED: D10W 125 ML IV PRN (16:24)
[2024-03-28] MEDS: CITALOPRAM 10 MG TABLET PO SCH (16:46)
[2024-03-28] MEDS: D5 0.9 NS 1,000 ML IV SCH (16:52)
[2024-03-28] MEDS: INSULIN REGULAR (HUMAN) 100 UNIT/ML SQ SCH (17:37)
[2024-03-28] MEDS: ACETAMINOPHEN 325 MG TABLET PO PRN (18:49)
--- NOTE | 2024-03-28 18:56 | CON ---
History Of Present Illness: This is a 78-year-old female I was consulted for bacteremia secondary to gram-negative rods. Currently, on Levaquin because of multiple allergies. Patient has extensive [facility] medical history of intra-abdominal ischemic bowel disease with celiac artery stenosis. The patien t is not a good historian. Most of the history was obtained through medical records and staff. The patient denies any headache, nausea, vomiting, chest pain. Having some abdominal discomfort in the l ower abdomen area. Past Medical History: Small bowel obstruction; diabetes mellitus; AVM; angiodysplasia, on ; ischemic bowel disease; celiac artery stenosis; insulin-dependent diabetes mellitus; COPD; peripher al arterial disease: Chronic mesenteric ischemia; gastroesophageal reflux disease; history of abdomin al and stomach surgery; tonsillectomy; cholecystectomy. As per HPI. Social History: Ex-smoker. Nondrinker. Family History: Noncontributory. Medications: Levaquin. See MARs for other medications. Allergies: LIPITOR, CODEINE, GLIMEPIRIDE, GLIPIZIDE, IODINATED CONTRAST MEDIA, PENICILLIN, CRESTOR, ACTOS, JANUVIA, SULFA DRUGS, CLINDAMYCIN, DARVOCET, METFORMIN, MORPHINE, WELLBUTRIN. Review of Systems: A 10-point review was performed. Physical Examination: General: This is a 78-year-old female, lying in bed in the ER, not in any acute cardiopulmonary dist ress. Vital Signs: Temperature 101.7, pulse 77, respirations 14, blood pressure 155/88. HEENT: Unremarkable. Neck: Supple: Basal crackles. Heart: S1, S2. Regular. Abdomen: Soft. Bowel sounds present. Tenderness in the lower abdomen, lower quadrant. Extremities: No edema. Laboratory Data: Shows WBC 12.10, hemoglobin 8, platelets are 211. Chemistry shows BUN of 44, creat inine 1.9, down from 2.17. Albumin level is 2.1. Assessment And Plan: Bacteremia secondary to gram-negative kiera, sensitivity and specificity pending. The patient is on Levaquin secondary to multiple antibiotic allergies including penicillin, sulfa d rugs, clindamycin. Continue antibiotic for 10 to 14 days. Fever, leukocytosis. History of small nehal wel obstruction and ischemic disease. Consider getting CT abdomen and pelvis. Continue current lesvia tment for a total of 14 days. We will follow the patient closely. Thank you Dr. Dumont for consult. NF/MODL Voice ID: [id number] Report ID: [id number]
[2024-03-28] MEDS: FERROUS SULFATE 325 MG TAB PO SCH (20:28)
[2024-03-28] MEDS: OCTREOTIDE ACETATE 100 MCG/ML SQ SCH (20:28)
[2024-03-28] MEDS: MAGNES/ALUMIN/SIMET 30ML UCUP PO PRN (22:10)
[2024-03-29] MEDS: TRAZODONE 50 MG TABLET PO PRN (02:46)
[2024-03-29 05:22] LABS: Absolute Eosinophils 0.1 K/uL (0-0.5); Absolute Lymphocytes (CBC) 0.4 K/uL (0.7-4.9); Absolute Monocytes 0.8 K/uL (0.1-1.3); Basophils % 0.3 % (0-1.3); Hematocrit 24.1 % (36.0-45.0); Lymphocytes % 4.7 % (15.3-44.8); MCH 27.9 pg (27.0-35.0); MCHC 33.1 g/dL (32.0-36.0); MCV 84.2 fL (80-100); MPV 9.4 fL (7.6-11.3); Monocytes % 9.7 % (3.3-12.3); Neutrophils % 84.3 % (41.7-73.7); Platelets 183 thou/uL (152-406); RBC Red Blood Cell Count 2.86 M/uL (3.86-4.86); Red Cell Distribution Width 16.4 % (12.1-15.2)
[2024-03-29 06:10] LABS: Magnesium 1.8 mg/dL (1.6-2.4)
--- NOTE | 2024-03-29 07:55 | RAD REPORT ---
EXAM: CT CHEST, ABDOMEN AND PELVIS WITHOUT CONTRAST CLINICAL INDICATION: fever/bacteremia unknown origin TECHNIQUE: CT chest, abdomen and pelvis was performed without contrast, as per department protocol. A xial, sagittal and coronal reconstructions were obtained. One or more of the following dose reduction techniques were used: Automated exposure control, adjustment of the mA and/or kV according to patient size, and/or iterative reconstruction. Unless otherwise specified, incidental findings do not require dedicated imaging follow-up. Examination is limited by the lack of intravenous contrast material. COMPARISON: 01/12/2024, 11/29/2022 FINDINGS: LUNGS: No evidence of airspace or interstitial process. No nodules. Mild COPD. PLEURA: No pleural effusion. No pneumothorax. MEDIASTINUM AND LYMPH NODES: No mediastinal mass or fluid collection. Normal size mediastinal, hilar, and axillary lymph nodes. OSSEOUS STRUCTURES AND CHEST WALL: Intact. LIVER: Normal in size and contour. No focal lesion or biliary dilatation. PANCREAS: No mass, ductal dilation, or analy-pancreatic fluid. SPLEEN: Normal size. No focal lesion. ADRENALS: Normal; no mass. KIDNEYS: Normal appearance of the right kidney. Moderate atrophy left kidney. No hydronephrosis. URINARY BLADDER: Normal contour. GASTROINTESTINAL TRACT: No bowel obstruction, free air, significant free fluid or abscess. Large ve ntral hernia again noted containing bowel loops without obstruction. APPENDIX: Appendix not visualized, but no inflammatory changes in region of appendix. LYMPH NODES: No lymphadenopathy. MUSCULOSKELETAL: There is significant thoracolumbar dextroscoliosis and degenerative changes present. OTHER: Right-sided bypass graft is seen from the right axillary artery to the right femoral artery. F emoral-femoral graft is also present. There is mild/moderate fluid surrounding both grafts. IMPRESSION: Right-sided bypass graft from the right axillary artery to the right femoral artery is noted. Femoral -femoral bypass graft is also in place. There is mild fluid seen surrounding both grafts. Mild COPD.
[2024-03-29] MEDS ORDERED: HOME MED 1 EA UNK (Citalopram Hydrobromide [Citalopram Hbr] 40 MG Tablet) PO SCH (09:00)
[2024-03-29] MEDS: ONDANSETRON 4 MG/2 ML VIAL IV PRN (09:06)
--- NOTE | 2024-03-29 10:40 | P.PN ---
Date of Service: 03/29/24 Subjective: feeling slightly better overall continues with some abdominal soreness. Doesn't feel worse still feels pretty weak/rundown 101.7 fever yesterday evening ROS: 10 point ROS as noted above, otherwise negative Physical Exam: GEN: Alert, fatigued appearing CV: Regular rate and rhythm, no edema Pulm: Nonlabored respirations on room air, clear bilaterally ABD: soft, nontender, nondistended Integumentary: No rashes, diffuse mild abdominal tenderness, surgical incision sites well-healed Neuro: Normal speech, normal affect Problem List: Gram negative Bacteremia Hx Pseudomonas Bacteremia Fever, Diarrhea Melena, hx iron deficiency anemia Hx recurrent GI Bleed secondary to AVM; on octreotide GIANCARLO on CKD3 Hypertension NIDDM2 with neuropathy COPD, chronic Urinary Retention hx PAD s/p recent R Axillary Bifemoral bypass (02/10/24) Hx chronic mesenteric ischemia s/p SMA bypass Hx celiac artery stenosis s/p stent (2015, 2022) Gram negative Bacteremia Hx Pseudomonas Bacteremia Fever, Diarrhea on admission, presents with generalized weakness, fevers, chills, diarrhea (dark/black) for several days. Family states she hasn't been acting herself lately. Recently seen in ED 03/21 for similar symptoms. Previously transferred to [facility] (02/27) for higher level of care given her severe sepsis with no source Blood cultures previously grew Pseudomonas in 2/4 bottles at the time (02/27) She required [address] [facility]. She declined push enteroscopy recommended by GI due to her improvement at the time. No source was found but suspected bacteremia could have been gut translocation. She completed 1 week of oral Levaquin per ID recs. family report a 2-3 delay in obtaining antibiotic after discharge. CT abdomen (03/28): Right-sided bypass graft from the right axillary right femoral artery is noted. Femoral-femoral bypass graft is also in place. There is mild fluid seen surrounding both grafts. Mild COPD. prior CT abdomen @[facility] (03/02): axillary bifemoral bypass. Small amount of f luid surrounds the bypass graft in right abdominal wall. Noticeably distended bladder. Trace R pleural effusion. Blood cx (03/27): GNR in 2/4 bottles continue empiric levaquin (03/28-) Blood cx (02/27): previously grew Pseudomonas Aeruginosa with intermediate resistance to cipro 101.7 fever overnight, +leukocytosis ID consulted - recommending 2 weeks abx course Melena, hx iron deficiency anemia Hx recurrent GI Bleed secondary to AVM; on octreotide Dr. Yun, GI consulted diet as tolerated continue oral iron; started 03/28 continue home octreotide Daily labs. Monitor H&H. no BM since prior to admission, will dc isolation precaution, dc c.diff collection GIANCARLO on CKD3 continue to monitor renal function continue d5w @50ml/hr Baseline Cr ~1.4-1.5 improving Hypertension NIDDM2 with neuropathy COPD, chronic Urinary Retention confirm home meds, restart as appropriate hx PAD s/p recent R Axillary Bifemoral bypass (02/10/24) Has upcoming f/u with Dr. Cheng on 04/03/24 Hx chronic mesenteric ischemia s/p SMA bypass Hx celiac artery stenosis s/p stent (2015, 2022) confirm home meds, restart as appropriate Code: Full Dispo: Home, ~3 days, may need IV Abx Pending cultures, ID recs, GI recs, afebrile > 24 hours Time Spent Managing Pts Care (In Minutes): 55
[2024-03-29] MEDS ORDERED: D50W 25 GM/50 ML SYRINGE IV PRN (16:18)
[2024-03-29] MEDS: INSULIN 70/30 100 UNITS/ML SQ SCH (16:40)
[2024-03-30 07:09] LABS: Absolute Basophils 0.1 K/uL (0-0.5); Absolute Eosinophils 0.1 K/uL (0-0.5); Absolute Lymphocytes (CBC) 0.4 K/uL (0.7-4.9); Absolute Monocytes 0.7 K/uL (0.1-1.3); Basophils % 0.7 % (0-1.3); Eosinophils % 1.5 % (0-4.4); Hematocrit 26.4 % (36.0-45.0); Hemoglobin 8.5 g/dL (12.0-15.0); Lymphocytes % 4.2 % (15.3-44.8); MCH 27.4 pg (27.0-35.0); MCHC 32.1 g/dL (32.0-36.0); MCV 85.4 fL (80-100); MPV 9.9 fL (7.6-11.3); Neutrophils % 85.6 % (41.7-73.7); Platelets 207 thou/uL (152-406); RBC Red Blood Cell Count 3.09 M/uL (3.86-4.86); Red Cell Distribution Width 16.6 % (12.1-15.2)
[2024-03-30 07:15] LABS: Albumin/Globulin Ratio 0.6 (1.1-1.8); Anion Gap 8.3 mEq/L (5.0-15.0); Bilirubin Total 0.3 mg/dL (0.2-1.0); Globulin 3.6 g/dL (2.3-3.5); Magnesium 1.8 mg/dL (1.6-2.4); Potassium 4.3 mEq/L (3.5-5.1); Protein, Total 5.6 g/dL (6.4-8.2)
--- NOTE | 2024-03-30 08:37 | P.PN ---
Subjective Date of Service: 03/30/24 Chief Complaint: Melena, GIB, GI tract AVMS on Octreotide chronically, diarrhea Subjective: New changes (She denies diarrhea since admission. Sepsis improved with normal WBC now (13.8 to 9.3), slightly up since yesterday (admission with Levaquin and Ceftriaxone, now only Levaquin). She feels weak today and is only on clear liquids.) Review of Systems 10-point ROS is otherwise unremarkable General: Weakness, Malaise Physical Examination - Vital Signs Temperature: 99.8 F Blood Pressure: 143/71 Pulse: 86 Respirations: 17 Pulse Ox (%): 92 - Physical Exam General: Alert, In no apparent distress (but weak ), Oriented x3, Cooperative HEENT: Atraumatic, Normocephalic, PERRLA, EOMI Neck: Supple Cardiovascular: Normal pulses Gastrointestinal: Soft and benign, No rebound, No guarding Neurological: Normal speech, Normal strength at 5/5 x4 extr - Studies Microbiology Data (last 24 hrs): 03/27/24 17:12 Blood - Blood Blood Culture Gram Stain - Final 03/27/24 17:37 Blood - Blood Blood Culture Gram Stain - Final Assessment And Plan - Current Problems (Diagnosis) (1) Arteriovenous malformation (AVM) Current Visit: Yes Status: Acute (2) Diarrhea Current Visit: Yes Status: Acute Comment: Resolved Qualifiers: Diarrhea type: unspecified type Qualified Code(s): R19.7 - Diarrhea, unspecified (3) Abdominal pain Onset Date: 10/21/16 Current Visit: No Status: Acute Comment: None reported now. (4) Anemia Onset Date: 10/21/16 Current Visit: No Status: Acute (5) COPD (chronic obstructive pulmonary disease) Current Visit: No Status: Acute Qualifiers: Emphysema type: unspecified (6) Congestive heart failure Current Visit: No Status: Acute Qualifiers: Heart failure type: unspecified (7) GI bleed Onset Date: 10/21/16 Current Visit: No Status: Acute (8) Melena Current Visit: No Status: Acute Comment: None with restart of her long-term Sandostatin for colonic AVMs (possibly in small bowel as well). (9) Weakness Onset Date: 06/18/17 Current Visit: No Status: Acute - Plan REC: 1) advance diet to GI soft 2) Add back Ceftriaxone 2 g 3) PT if able
--- NOTE | 2024-03-30 09:55 | P.PN ---
Date of Service: 03/30/24 Subjective: feeling slightly better overall today no events overnight. Doesn't feel anything is getting worse afebrile, tmax 99.8 overnight ambulated around the floor with PT today no BM in several days per patient ROS: 10 point ROS as noted above, otherwise negative Physical Exam: GEN: Alert, fatigued appearing CV: Regular rate and rhythm, no edema Pulm: Nonlabored respirations on room air, clear bilaterally ABD: soft, nontender, nondistended Integumentary: No rashes, diffuse mild abdominal tenderness, surgical incision sites well-healed Neuro: Normal speech, normal affect Problem List: Pseudomonas Bacteremia; recurrent Fever, Diarrhea; improved Melena, Resolved hx iron deficiency anemia 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 Family states she hasn't been acting herself lately. Recently seen in ED 03/21 for similar symptoms. Previously transferred to [facility] (02/27) for higher level of care given her severe sepsis with no source Blood cultures (02/27) Pseudomonas in 2/4 bottles at the time No source was found but suspected bacteremia could have been gut translocation. She completed 1 week of oral Levaquin per ID recs after discharge. Family report a 2-3 delay in obtaining antibiotic after discharge. CT abdomen (03/28): Right-sided bypass graft from the right axillary right femoral artery is noted. Femoral-femoral bypass graft is also in place. There is mild fluid seen surrounding both grafts. Mild COPD. Blood cx (03/27): Pseudomonas Aeruginosa with intermediate resistance to zosyn Blood cx (02/27): previously grew Pseudomonas Aeruginosa with intermediate resistance to cipro continue IV levaquin (03/28-) improving ID is following - recommending 2 weeks total abx course will discuss, may need IV for full course, since did PO last month Melena, Resolved hx iron deficiency anemia Hx recurrent GI Bleed secondary to AVM; on octreotide She required 1 blood transfusion at [facility]. She declined push enteroscopy recommended by GI due to her improvement at the time. Reports some melena prior to admission. no BM since prior to admission Dr. Yun, GI consulted continue home oral iron; restarted 03/28 continue home octreotide Daily labs. Monitor H&H. Advanced to soft foods 03/30 PT consult GIANCARLO on CKD3, resolved continue to monitor renal function Baseline Cr ~1.4-1.5 dc IVF (03/30) Improved / stable. Constipation reports no BM in last few days States she typically takes multiple laxatives, stool softeners at home Start colace BID will consider adding laxative if no relief Hypertension NIDDM2 with neuropathy COPD, chronic Urinary Retention confirm home meds, restart as appropriate hx PAD s/p recent R Axillary Bifemoral bypass (02/10/24) Has upcoming f/u with Dr. Cheng on 04/03/24 Hx chronic mesenteric ischemia s/p SMA bypass Hx celiac artery stenosis s/p stent (2015, 2022) confirm home meds, restart as appropriate Code: Full Dispo: Home with HH, ~2-3 days, likely needs IV Abx setup Pending ID recs, afebrile > 24 hours Patient considering SNF if needs IV antibiotics Time Spent Managing Pts Care (In Minutes): 55
[2024-03-30] MEDS: CEFTRIAXONE 2,000 MG in NA CHLORIDE 0.9% 100 ML IV SCH (10:10)
[2024-03-30] MEDS: DOCUSATE NA 100 MG CAP PO SCH (11:27)
--- NOTE | 2024-03-30 15:50 | PN ---
Subjective: Patient lying in bed. No new acute event. Chart reviewed. Feels better today. Objective: Vital Signs: Temperature 98, pulse 70, respirations 18, blood pressure 153/61. Lungs: Basal crackles. Heart: S1, S2. Regular. Abdomen: Soft, nontender. Bowel sounds present. Extremities: No edema. Laboratory Data: Shows WBC 9.3, hemoglobin 8.5, platelets 207. Chemistry shows BUN of 14, creatinin e 1.19. The patient currently on Levaquin and ceftriaxone. Micro data shows blood cultures positive for Pseudomonas aeruginosa. Assessment And Plan: Pseudomonas aeruginosa bacteremia. We will recommend to discontinue Rocephin a nd start patient on cefepime. Continue Levaquin, total of 14 days. History of gastrointestinal blee d and anemia of chronic disease, diabetes mellitus, chronic obstructive pulmonary disease. Continue current antibiotic. Monitor signs of infection with WBC and fever trends. NF/MODL Voice ID: [id number] Report ID: [id number]
[2024-03-30] MEDS: NICOTINE 14 MG/PAT TD SCH (16:43)
[2024-03-30] MEDS: LIDOCAINE 4% PATCH TOP SCH (21:04)
[2024-03-31 05:20] LABS: Absolute Eosinophils 0.1 K/uL (0-0.5); Absolute Lymphocytes (CBC) 0.6 K/uL (0.7-4.9); Absolute Monocytes 0.9 K/uL (0.1-1.3); Basophils % 0.2 % (0-1.3); Eosinophils % 1.4 % (0-4.4); Hematocrit 26.8 % (36.0-45.0); Hemoglobin 8.7 g/dL (12.0-15.0); Lymphocytes % 5.9 % (15.3-44.8); MCH 27.3 pg (27.0-35.0); MCHC 32.4 g/dL (32.0-36.0); MCV 84.3 fL (80-100); MPV 9.3 fL (7.6-11.3); Monocytes % 9.4 % (3.3-12.3); Neutrophils % 83.1 % (41.7-73.7); Nucleated Red Blood Cells % 0.1 % (0-0); Platelets 270 thou/uL (152-406); RBC Red Blood Cell Count 3.18 M/uL (3.86-4.86); Red Cell Distribution Width 16.7 % (12.1-15.2)
[2024-03-31 05:33] LABS: Anion Gap 8.4 mEq/L (5.0-15.0); Magnesium 1.7 mg/dL (1.6-2.4); Potassium 4.4 mEq/L (3.5-5.1)
[2024-03-31] MEDS: CEFEPIME 1 GM in NA CHLORIDE 0.9% 100 ML IV SCH (08:43)
[2024-03-31] MEDS: Mupirocin NASAL 2 APPL/1 GM TUBE NAS SCH (08:44)
--- NOTE | 2024-03-31 09:40 | P.PN ---
Date of Service: 03/31/24 Subjective: abdomen doesn't feel as sore. 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 Family states she hasn't been acting herself lately. Recently seen in ED 03/21 for similar symptoms. Previously transferred to [facility] (02/27) for higher level of care given her severe sepsis with no source No source was found but suspected bacteremia could have been gut translocation. She completed 1 week of oral Levaquin per ID recs after discharge. Family report a 2-3 delay in obtaining antibiotic after discharge. CT abdomen (03/28): Right-sided bypass graft from the right axillary right femoral artery is noted. Femoral-femoral bypass graft is also in place. There is mild fluid seen surrounding both grafts. Mild COPD. Blood cx (03/27): Pseudomonas Aeruginosa with intermediate resistance to zosyn Blood cx (02/27): previously grew Pseudomonas Aeruginosa with intermediate resistance to cipro continue both IV levaquin and IV cefepime (03/28-) for double coverage ID recommending 2 weeks of IV antibiotics. IV cefepime 1/3 added per ID recs. 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 She declined push enteroscopy recommended by GI due to her improvement at the time. Reports some melena prior to admission. no BM since prior to admission Dr. Yun, GI consulted continue home oral iron; restarted 03/28 continue home octreotide Daily labs. Monitor H&H. continue PT GIANCARLO on CKD3, resolved continue to monitor renal function Baseline Cr ~1.4-1.5 Improved / stable. Constipation reports no BM in last few days States she typically takes multiple laxatives, stool softeners at home continue colace BID will consider adding laxative if no relief. No BM yet, but reports increased flatus. Abdomen not as sore today. Hypertension NIDDM2 with neuropathy COPD, chronic Urinary Retention confirm home meds, restart as appropriate hx PAD s/p recent R Axillary Bifemoral bypass (02/10/24) Has upcoming f/u with Dr. Cheng on 04/03/24 Hx chronic mesenteric ischemia s/p SMA bypass Hx celiac artery stenosis s/p stent (2015, 2022) confirm home meds, restart as appropriate Code: Full Dispo: SNF - pending approval; anticipate will be here over the weekend Pending SNF auth, IV abx setup, PICC line Time Spent Managing Pts Care (In Minutes): 55
[2024-03-31] MEDS: CEFEPIME 1 GM in NA CHLORIDE 0.9% 50 ML IV SCH (11:03)
--- NOTE | 2024-03-31 12:29 | RAD REPORT ---
EXAMINATION: ONE VIEW CHEST XR CLINICAL INDICATION: Female, 78 years old.,verify PICC line placement TECHNIQUE: Frontal chest projection is submitted. Examination is limited by patient positioning and t echnique. COMPARISON: 03/21/2024 FINDINGS: Right arm PICC in place with catheter tip at the superior cavoatrial junction. The lungs are mildly h ypoinflated and clear. No pneumothorax or sizable effusion. The heart is normal in size. Mediastinal contours are unremarkable. IMPRESSION: Satisfactory right arm PICC positioning. No acute intrathoracic abnormalities.
[2024-03-31] MEDS: LOSARTAN POTASSIUM 50 MG TABLET PO SCH (17:08)
--- NOTE | 2024-03-31 17:38 | P.PN ---
Subjective Date of Service: 03/31/24 Chief Complaint: Melena, GIB, GI tract AVMS on Octreotide chronically, diarrhea Subjective: Improving (Feels much better today with additional antibiotic and is to be discharge soon. No further melena.) Review of Systems 10-point ROS is otherwise unremarkable General: Weakness (Improved.) Physical Examination - Vital Signs Temperature: 98.9 F Blood Pressure: 182/75 Pulse: 79 Respirations: 15 Pulse Ox (%): 92 - Physical Exam General: Alert, In no apparent distress, Oriented x3, Cooperative HEENT: Atraumatic, Normocephalic, PERRLA, EOMI Neck: Supple Cardiovascular: Normal pulses Gastrointestinal: Soft and benign, No tenderness, No rebound, No guarding Neurological: Normal speech, Normal strength at 5/5 x4 extr Assessment And Plan - Current Problems (Diagnosis) (1) Arteriovenous malformation (AVM) Current Visit: Yes Status: Acute (2) Diarrhea Current Visit: Yes Status: Acute Comment: Resolved Qualifiers: Diarrhea type: unspecified type Qualified Code(s): R19.7 - Diarrhea, unspecified (3) Abdominal pain Onset Date: 10/21/16 Current Visit: No Status: Acute Comment: None reported now. (4) Anemia Onset Date: 10/21/16 Current Visit: No Status: Acute (5) COPD (chronic obstructive pulmonary disease) Current Visit: No Status: Acute Qualifiers: Emphysema type: unspecified (6) Congestive heart failure Current Visit: No Status: Acute Qualifiers: Heart failure type: unspecified (7) GI bleed Onset Date: 10/21/16 Current Visit: No Status: Acute (8) Melena Current Visit: No Status: Acute Comment: None with restart of her long-term Sandostatin for colonic AVMs (possibly in small bowel as well). (9) Weakness Onset Date: 06/18/17 Current Visit: No Status: Acute - Plan REC: 1) continue IV antiibiotics 2) discharge on short course of po antibiotics 3) PT
[2024-03-31] MEDS: OCTREOTIDE ACETATE 100 MCG/ML SQ SCH (20:28)
[2024-03-31] MEDS: METOPROLOL XL 25 MG TAB PO SCH (20:28)
[2024-03-31] MEDS: PREGABALIN 50 MG CAP PO SCH (20:29)
[2024-03-31] MEDS: CEFEPIME 2 GM in NA CHLORIDE 0.9% 100 ML IV SCH (20:36)
[2024-04-01 07:22] LABS: Absolute Basophils 0.1 K/uL (0-0.5); Absolute Eosinophils 0.2 K/uL (0-0.5); Absolute Lymphocytes (CBC) 0.9 K/uL (0.7-4.9); Absolute Monocytes 0.9 K/uL (0.1-1.3); Absolute Neutrophil 8.1 K/uL (1.8-8.0); Basophils % 1.1 % (0-1.3); Eosinophils % 2.3 % (0-4.4); Hematocrit 26.7 % (36.0-45.0); Hemoglobin 8.7 g/dL (12.0-15.0); Lymphocytes % 8.4 % (15.3-44.8); MCH 27.5 pg (27.0-35.0); MCHC 32.6 g/dL (32.0-36.0); MCV 84.1 fL (80-100); MPV 9.3 fL (7.6-11.3); Monocytes % 9.3 % (3.3-12.3); Neutrophils % 78.9 % (41.7-73.7); Platelets 329 thou/uL (152-406); RBC Red Blood Cell Count 3.17 M/uL (3.86-4.86); Red Cell Distribution Width 16.8 % (12.1-15.2)
[2024-04-01 07:27] LABS: Anion Gap 8.3 mEq/L (5.0-15.0); Magnesium 1.8 mg/dL (1.6-2.4); Potassium 4.3 mEq/L (3.5-5.1)
--- NOTE | 2024-04-01 07:40 | P.PN ---
Date of Service: 04/01/24 Subjective: Feeling better overall Breathing comfortably on room air Denies any new / worsening problems Pending SNF auth afebrile ROS: 10 point ROS as noted above, otherwise negative Physical Exam: GEN: Alert, NAD CV: Regular rate and rhythm, no edema Pulm: Nonlabored respirations on room air, clear bilaterally ABD: soft, nontender, nondistended Integumentary: No rashes, surgical incision sites well-healed Neuro: Normal speech, normal affect PICC line in place Problem List: Pseudomonas Bacteremia; recurrent Fever, Diarrhea; improved Melena, Resolved hx iron deficiency anemia 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 Family states she hasn't been acting herself lately. Recently seen in ED 03/21 for similar symptoms. Previously transferred to [facility] (02/27) for higher level of care given her severe sepsis with no source No source was found but suspected bacteremia could have been gut translocation. She completed 1 week of oral Levaquin per ID recs after discharge. Family report a 2-3 delay in obtaining antibiotic after discharge. CT abdomen (03/28): Right-sided bypass graft from the right axillary right femoral artery is noted. Femoral-femoral bypass graft is also in place. There is mild fluid seen surrounding both grafts. Mild COPD. Blood cx (03/27): Pseudomonas Aeruginosa with intermediate resistance to zosyn Blood cx (02/27): previously grew Pseudomonas Aeruginosa with intermediate resistance to cipro continue both IV levaquin and IV cefepime (03/28-04/10) for double coverage ID recommending 2 weeks of IV antibiotics. IV cefepime 1/3 added per ID recs. 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. She declined push enteroscopy recommended by GI due to her improvement at the time. Reports some melena prior to admission. no BM since prior to admission Dr. Yun, GI consulted continue home oral iron; restarted 03/28 continue home octreotide Daily labs. Monitor H&H. continue PT GIANCARLO on CKD3, resolved continue to monitor renal function Baseline Cr ~1.4-1.5 Improved / stable. Constipation reports no BM in last few days States she typically takes multiple laxatives, stool softeners at home continue colace BID will consider adding laxative if no relief. No BM yet, but reports increased flatus. Abdomen not as sore today. Hypertension NIDDM2 with neuropathy COPD, chronic Urinary Retention confirm home meds, restart as appropriate hx PAD s/p recent R Axillary Bifemoral bypass (02/10/24) Has upcoming f/u with Dr. Cheng on 04/03/24 Hx chronic mesenteric ischemia s/p SMA bypass Hx celiac artery stenosis s/p stent (2015, 2022) confirm home meds, restart as appropriate Code: Full Dispo: SNF - pending approval; anticipate dc ~/Wed Pending SNF auth, IV abx setup Time Spent Managing Pts Care (In Minutes): 55
[2024-04-01] MEDS: ASPIRIN 81 MG CHEWABLE TABLET PO SCH (08:38)
[2024-04-01] MEDS: PANTOPRAZOLE 40MG TABLET PO SCH (08:38)
--- NOTE | 2024-04-02 08:21 | P.PN ---
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 Family states she hasn't been acting herself lately. Recently seen in ED 03/21 for similar symptoms. Previously transferred to [facility] (02/27) for higher level of care given her severe sepsis with no source No source was found but suspected bacteremia could have been gut translocation. She completed 1 week of oral Levaquin per ID recs after discharge. Family report a 2-3 delay in obtaining antibiotic after discharge. CT abdomen (03/28): Right-sided bypass graft from the right axillary right femoral artery is noted. Femoral-femoral bypass graft is also in place. There is mild fluid seen surrounding both grafts. Mild COPD. Blood cx (03/27): Pseudomonas Aeruginosa with intermediate resistance to zosyn Blood cx (02/27): previously grew Pseudomonas Aeruginosa with intermediate resistance to cipro continue both IV levaquin and IV cefepime (03/28-04/10) for double coverage ID recommending 2 weeks of IV antibiotics. IV cefepime 1/3 added per ID recs. 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 She declined push enteroscopy recommended by GI due to her improvement at the time. Reports some melena prior to admission. no BM since prior to admission Dr. Yun, GI consulted continue home oral iron; restarted 03/28 continue home octreotide Daily labs. Monitor H&H. continue PT GIANCARLO on CKD3, resolved continue to monitor renal function Baseline Cr ~1.4-1.5 Improved / stable. Constipation reports no BM in last few days States she typically takes multiple laxatives, stool softeners at home continue colace BID senna x1 ordered 04/02 No BM yet, but abdominal discomfort resolved. +flatus Hypertension NIDDM2 with neuropathy COPD, chronic Urinary Retention confirm home meds, restart as appropriate hx PAD s/p recent R Axillary Bifemoral bypass (02/10/24) Has upcoming f/u with Dr. Cheng on 04/03/24 Hx chronic mesenteric ischemia s/p SMA bypass Hx celiac artery stenosis s/p stent (2015, 2022) confirm home meds, restart as appropriate Code: Full Dispo: SNF - pending approval; anticipate dc ~/Wed Pending SNF auth, IV abx setup Time Spent Managing Pts Care (In Minutes): 40
[2024-04-02] MEDS ORDERED: SENOSIDES 8.6 MG TAB PO PRN (08:29)
[2024-04-03 05:38] LABS: Absolute Eosinophils 0.1 K/uL (0-0.5); Absolute Monocytes 0.3 K/uL (0.1-1.3); Absolute Neutrophil 3.1 K/uL (1.8-8.0); Eosinophils % 2.1 % (0-4.4); Hemoglobin 10.4 g/dL (12.0-15.0); Lymphocytes % 21.9 % (15.3-44.8); MCH 28.2 pg (27.0-35.0); MCHC 33.4 g/dL (32.0-36.0); MCV 84.4 fL (80-100); Monocytes % 6.2 % (3.3-12.3); Neutrophils % 68.8 % (41.7-73.7); Nucleated Red Blood Cells % 0.1 % (0-0); Platelets 242 thou/uL (152-406); RBC Red Blood Cell Count 3.68 M/uL (3.86-4.86); Red Cell Distribution Width 16.6 % (12.1-15.2)
[2024-04-03 05:48] LABS: Anion Gap 8.5 mEq/L (5.0-15.0); Magnesium 1.8 mg/dL (1.6-2.4); Potassium 3.5 mEq/L (3.5-5.1)
[2024-04-03 06:17] VITALS: BMI 21.2
--- NOTE | 2024-04-03 09:19 | P.PN ---
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 Family states she hasn't been acting herself lately. Recently seen in ED 03/21 for similar symptoms. Previously transferred to [facility] (02/27) for higher level of care given her severe sepsis with no source No source was found but suspected bacteremia could have been gut translocation. She completed 1 week of oral Levaquin per ID recs after discharge. Family report a 2-3 delay in obtaining antibiotic after discharge. CT abdomen (03/28): Right-sided bypass graft from the right axillary right femoral artery is noted. Femoral-femoral bypass graft is also in place. There is mild fluid seen surrounding both grafts. Mild COPD. Blood cx (03/27): Pseudomonas Aeruginosa with intermediate resistance to zosyn Blood cx (02/27): previously grew Pseudomonas Aeruginosa with intermediate resistance to cipro continue both IV Levaquin and IV Cefepime (03/28-04/10) for double coverage ID recommending 2 weeks of IV antibiotics. IV cefepime 1/3 added per ID recs. 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. At [facility] - she declined push enteroscopy recommended by GI due to her improvement at the time. Reports some melena prior to admission. and one small dark black stool 04/02, hgb stable Dr. Yun, GI consulted continue home oral iron; restarted 03/28 continue home octreotide continue PT GIANCARLO on CKD3, resolved continue to monitor renal function Baseline Cr ~1.4-1.5 Improved / stable. Constipation States she typically takes multiple laxatives, stool softeners at home continue colace BID Had BM last night 04/02 Hypertension NIDDM2 with neuropathy COPD, chronic Urinary Retention confirm home meds hx PAD s/p recent R Axillary Bifemoral bypass (02/10/24) Had upcoming f/u with Dr. Cheng on 04/03/24. Will need to reschedule f/u Hx chronic mesenteric ischemia s/p SMA bypass Hx celiac artery stenosis s/p stent (2015, 2022) confirm home meds, restart as appropriate Code: Full Dispo: SNF - pending approval Pending SNF auth, IV abx setup Time Spent Managing Pts Care (In Minutes): 40
[2024-04-03 22:22] VITALS: O2SAT 95
[2024-04-04 06:00] LABS: Anion Gap 8.2 mEq/L (5.0-15.0); Magnesium 1.9 mg/dL (1.6-2.4); Potassium 4.2 mEq/L (3.5-5.1)
--- NOTE | 2024-04-04 12:55 | P.PN ---
Date of Service: 04/04/24 Patient walking around in the hallway not in any acute cardiopulmonary distress denies any headache nausea vomiting chest pain abdominal pain constipation diarrhea or any problems with the antibiotic Temp Pulse Resp BP Pulse Ox 98.2 F 63 16 140/68 95 04/04/24 08:00 04/04/24 08:00 04/04/24 08:00 04/04/24 08:00 04/04/24 08:00 HEENT: Within normal limits Neck: Supple, no JVD Heart: S1-S2 regular Abdomen: Soft, bowel sound present Extremity: No edema Acetaminophen (Acetaminophen 325 Mg Tablet) 650 mg PO Q6H PRN PRN Reason: TEMP > 100' F Last Admin: 04/01/24 20:23 Dose: 650 mg Al Hydrox/Mg Hydrox/Simethicone (Magnes/Alumin/Simet 30ml Ucup) 30 ml PO Q6H PRN PRN Reason: INDIGESTION Last Admin: 03/28/24 22:10 Dose: 30 ml Aspirin (Aspirin 81 Mg Chewable Tablet) 81 mg PO DAILY [facility] Last Admin: 04/04/24 08:12 Dose: 81 mg Citalopram Hydrobromide (Citalopram 10 Mg Tablet) 40 mg PO DAILY [facility] Last Admin: 04/04/24 08:13 Dose: 40 mg Docusate Sodium (Docusate Na 100 Mg Cap) 100 mg PO BID [facility] Last Admin: 04/04/24 08:14 Dose: 100 mg Ferrous Sulfate (Ferrous Sulfate 325 Mg Tab) 325 mg PO BEDTIME [facility] Last Admin: 04/03/24 20:41 Dose: 325 mg Glucagon (Glucagon 1 Mg/Vial) 1 mg IM 1X PRN PRN Reason: HYPOGLYCEMIA Levofloxacin/Dextrose (Levaquin 750 Mg/150 Ml Ivpb (Premix)) 750 mg in 150 mls @ 100 mls/hr IV Q48H [facility]; Protocol Last Admin: 04/03/24 08:19 Dose: 150 mls Dextrose (Dextrose 10% Water Iv Soln.) 125 mls @ 0 mls/hr IV PRN PRN; Protocol PRN Reason: HYPOGLYCEMIA Cefepime HCl 2 gm/ Sodium (Chloride) 100 mls @ 200 mls/hr IV Q12HR [facility]; Protocol Last Admin: 04/04/24 08:14 Dose: 100 mls Insulin Human Isoph/Insulin Regular (Insulin 70/30 100 Units/Ml) 10 unit SQ BIDAC [facility] Last Admin: 04/04/24 08:15 Dose: 10 unit Insulin Human Regular (Insulin Regular (Human) 100 Unit/Ml) 0 unit SQ [facility]; Protocol Last Admin: 04/04/24 11:30 Dose: Not Given Lidocaine (Lidocaine 4% Patch) 1 patch TOP DAILY [facility] Last Admin: 04/04/24 08:14 Dose: 1 patch Loperamide HCl (Loperamide Hcl 2 Mg Capsule) 2 mg PO Q4H PRN PRN Reason: DIARRHEA Losartan Potassium (Losartan Potassium 50 Mg Tablet) 100 mg PO DAILY [facility] Last Admin: 04/04/24 08:13 Dose: 100 mg Metoprolol Succinate (Metoprolol Xl 25 Mg Tab) 25 mg PO BEDTIME [facility] Last Admin: 04/03/24 20:41 Dose: 25 mg Mupirocin (Mupirocin Nasal 2 Appl/1 Gm Tube) 1 appl IGOR BID [facility] Stop: 04/04/24 21:01 Last Admin: 04/04/24 08:13 Dose: 2 appl Nicotine (Nicotine 14 Mg/Pat) 14 mg TD DAILY [facility] Last Admin: 04/04/24 08:13 Dose: 14 mg Octreotide Acetate (Octreotide Acetate 100 Mcg/Ml) 100 mcg SQ BID [facility] Last Admin: 04/04/24 09:00 Dose: Not Given Ondansetron HCl (Ondansetron 4 Mg/2 Ml Vial) 4 mg IV Q8H PRN PRN Reason: NAUSEA / VOMITING Last Admin: 03/30/24 05:05 Dose: 4 mg Pantoprazole Sodium (Pantoprazole 40mg Tablet) 40 mg PO DAILY [facility]; Protocol Last Admin: 04/04/24 08:13 Dose: 40 mg Pregabalin (Pregabalin 50 Mg Cap) 50 mg PO BID [facility] Last Admin: 04/04/24 08:13 Dose: 50 mg Senna (Senosides 8.6 Mg Tab) 17.2 mg PO DAILY PRN PRN Reason: CONSTIPATION - 1ST LINE Trazodone HCl (Trazodone 50 Mg Tablet) 50 mg PO BEDTIME PRN PRN PRN Reason: INSOMNIA Last Admin: 04/03/24 20:54 Dose: 50 mg Laboratory Last Values WBC 13.80 thou/uL (4.3-10.9) H 03/27/24 17:12 RBC 3.73 M/uL (3.86-4.86) L 03/27/24 17:12 Hgb 10.4 g/dL (12.0-15.0) L 03/27/24 17:12 Hct 31.9 % (36.0-45.0) L 03/27/24 17:12 MCV 85.6 fL (80-100) 03/27/24 17:12 MCH 27.7 pg (27.0-35.0) 03/27/24 17:12 MCHC 32.4 g/dL (32.0-36.0) 03/27/24 17:12 RDW 16.2 % (12.1-15.2) H 03/27/24 17:12 Plt Count 272 thou/uL (152-406) 03/27/24 17:12 MPV 9.4 fL (7.6-11.3) 03/27/24 17:12 Neutrophils % 90.6 % (41.7-73.7) H 03/27/24 17:12 Lymphocytes % 2.9 % (15.3-44.8) L 03/27/24 17:12 Monocytes % 5.6 % (3.3-12.3) 03/27/24 17:12 Eosinophils % 0.1 % (0-4.4) 03/27/24 17:12 Basophils % 0.8 % (0-1.3) 03/27/24 17:12 Absolute Neutrophils 12.5 K/uL (1.8-8.0) H 03/27/24 17:12 Absolute Lymphocytes 0.4 K/uL (0.7-4.9) L 03/27/24 17:12 Absolute Monocytes 0.8 K/uL (0.1-1.3) 03/27/24 17:12 Absolute Eosinophils 0.0 K/uL (0-0.5) 03/27/24 17:12 Absolute Basophils 0.1 K/uL (0-0.5) 03/27/24 17:12 Sodium 130 mEq/L (136-145) L 03/27/24 17:12 Potassium 4.4 mEq/L (3.5-5.1) 03/27/24 17:12 Chloride 99 mEq/L (98-107) 03/27/24 17:12 Carbon Dioxide 22 mEq/L (21-32) 03/27/24 17:12 Anion Gap 13.4 mEq/L (5.0-15.0) 03/27/24 17:12 BUN 48 mg/dL (7-18) H 03/27/24 17:12 Creatinine 2.17 mg/dL (0.55-1.02) H 03/27/24 17:12 Est GFR (CKD-EPI) 23 ml/min (=/>90) L 03/27/24 17:12 Glucose 235 mg/dL (74-106) H 03/27/24 17:12 Lactic Acid 1.1 mmol/L (0.4-2.0) 03/27/24 17:12 Calcium 9.5 mg/dL (8.5-10.1) 03/27/24 17:12 Total Bilirubin 0.6 mg/dL (0.2-1.0) 03/27/24 17:12 AST 64 U/L (15-37) H 03/27/24 17:12 ALT 31 U/L (13-56) 03/27/24 17:12 Alkaline Phosphatase 215 U/L (45-117) H 03/27/24 17:12 Serum Total Protein 7.3 g/dL (6.4-8.2) 03/27/24 17:12 Albumin 2.6 g/dL (3.4-5.0) L 03/27/24 17:12 Globulin 4.7 g/dL (2.3-3.5) H 03/27/24 17:12 Albumin/Globulin Ratio 0.6 (1.1-1.8) L 03/27/24 17:12 Lipase 97 U/L (13-75) H 03/27/24 17:12 Urine Color Yellow (Yellow) 03/27/24 19:14 Urine Clarity Clear (Clear) 03/27/24 19:14 Urine pH 5.5 (5.0-7.0) 03/27/24 19:14 Ur Specific [place] 1.018 (1.005-1.030) 03/27/24 19:14 Glucose (UA)(Auto) Negative (Negative) 03/27/24 19:14 Urine Ketones Negative (Negative) 03/27/24 19:14 Urine Blood Negative (Negative) 03/27/24 19:14 Urine Nitrite Negative (Negative) 03/27/24 19:14 Urine Bilirubin Negative (Negative) 03/27/24 19:14 Urine Urobilinogen Normal (Normal) 03/27/24 19:14 Ur Leukocyte Esterase Negative [place]/uL (Negative) 03/27/24 19:14 Urine RBC <5 /HPF (None Seen) 03/27/24 19:14 Urine WBC <5 /HPF (<5) 03/27/24 19:14 Urine WBC Clumps Rare /HPF (None Seen) 03/27/24 19:14 Ur Squamous Epith Cells None seen /HPF (None Seen) 03/27/24 19:14 U Non-Squamous Epi Cells <5 /HPF (None Seen) 03/27/24 19:14 Urine Bacteria None seen /HPF (<20) 03/27/24 19:14 Hyaline Casts 0-5 /LPF (None Seen) 03/27/24 19:14 Urine Mucus Slight /HPF (None Seen) 03/27/24 19:14 Urine Yeast (Budding) Trace /HPF (None Seen) H 03/27/24 19:14 Urine Culture Reflexed Not needed 03/27/24 19:14 Urine Total Protein 1+ (Negative) H 03/27/24 19:14 SARS-CoV-2 Ag (Rapid) Negative (Negative) 03/27/24 17:16 Assessment and plan: Bacteremia secondary to Pseudomonas aeruginosa currently being covered by cefepime and Levaquin Patient is improving Moderate protein calorie malnourishment Renal insufficiency Leukocytosis Anemia of chronic disease Monitor signs of infection with WBC and fever trends
--- NOTE | 2024-04-04 18:36 | P.PN ---
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 No issues overnight. No fever for several days. No reported melena or bright red blood per rectum. Patient is tolerating diet and ambulated with PT. Physical Examination - Vital Signs Temperature: 98.6 F Blood Pressure: 142/57 Pulse: 61 Respirations: 16 Pulse Ox (%): 95 Assessment And Plan - Plan Physical Exam: GEN: Alert, NAD CV: Regular rate and rhythm, no edema Pulm: Clear to auscultation bilaterally, adequate breath sounds bilaterally ABD: soft, nontender, nondistended Neuro: Normal speech, normal affect PICC line in place-right arm. 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 Status post 1 week course of of oral Levaquin after discharge from [facility]. Family report a 2-3 delay in obtaining antibiotic after discharge. CT abdomen (03/28): Right-sided bypass graft from the right axillary right femoral artery is noted. Femoral-femoral bypass graft is also in place. There is mild fluid seen surrounding both grafts. Graft wound healed, no tenderness. Blood cx (03/27): Pseudomonas Aeruginosa with intermediate resistance to zosyn Blood cx (02/27): previously grew Pseudomonas Aeruginosa with intermediate resistance to cipro Continue IV Levaquin and IV Cefepime (03/28-04/10) for double coverage ID Dr. Kc input appreciated. Dr. Kc recommending 2 weeks of IV antibiotics. PICC line placed 1/3 for 2 weeks of IV antibiotics. Patient slated to complete IV antibiotics in the custodial. last day of antibiotics: 04/10. continue PT. 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 At [facility] - she declined push enteroscopy recommended by GI due to her improvement at the time. Reports some melena prior to admission. and one small dark black stool /5, hgb stable Dr. Yun, GI evaluated patient. continue home oral iron. continue home octreotide GIANCARLO on CKD3, resolved continue to monitor renal function Baseline Cr 1.4-1.5 Stable Constipation continue colace BID and Senokot Resume oral magnesium. Hypertension NIDDM2 with neuropathy Urinary Retention Continue home medication COPD, chronic Stable Bronchodilators as needed hx PAD s/p recent R Axillary Bifemoral bypass (02/10/24) Had upcoming f/u with Dr. Cheng on 04/03/24. Patient to follow-up after antibiotic completion Hx chronic mesenteric ischemia s/p SMA bypass Hx celiac artery stenosis s/p stent (2015, 2022) Hyperlipidemia GI Dr. Yun's input appreciated Continue aspirin. Resume evolocumab on discharge Code: Full Dispo: SNF - pending approval Time Spent Managing Pts Care (In Minutes): 37
[2024-04-05 12:45] VITALS: BP 146/57; TEMP 97.5
--- NOTE | 2024-04-05 12:58 | PN ---
Subjective: Patient lying in bed. No new acute event. Chart reviewed. Objective: Vital signs: Reviewed. Lungs: Basal crackles. Heart: S1, S2. Regular. Abdomen: Soft, nontender. Bowel sounds present. Extremities: No edema. Laboratory Data: Reviewed. No new labs for today. Assessment And Plan: Bacteremia secondary to Pseudomonas aeruginosa. Continue double coverage. The patient continued to improve. Moderate protein-calorie malnourishment, renal insufficiency, leukocy tosis, anemia of chronic disease. Continue to monitor signs of infection with WBC and fever trends. NF/MODL Voice ID: [id number] Report ID: [id number]
--- NOTE | 2024-04-05 14:10 | P.DS ---
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 Unclear exact source, possibly secondary to gut translocation. She was recently transferred to [facility] on 02/27 for severe sepsis with no clear source. Blood cultures at the time also grew Pseudomonas Aeruginosa to which she completed 1 week of oral Levaquin. Family reported a 2-3 day delay in obtaining antibiotics. She did report some melena prior to admission however hasn't has a bowel movement since prior to admission. Hemoglobin remained stable throughout hospitalization. She was restarted on her home octreotide and received oral iron while hospitalized. ID was consulted and recommended patient complete 2 weeks of IV antibiotics, also recommended adding IV cefepime for double coverage given recurrent bacteremia. PICC line was placed 1/3 for prolonged IV antibiotics. Patient was feeling better, afebrile without leukocytosis for several days, strength improving, and deemed stable for discharge to SNF. Patient is to complete 2 weeks of IV cefepime and IV levaquin. (End date: ~04/10/24) Vital Signs/Physical Exam: Temp Pulse Resp BP Pulse Ox 97.5 F 59 16 146/57 H 96 04/05/24 12:00 04/05/24 12:00 04/05/24 12:00 04/05/24 12:04/05/24 12:00 General: Alert, In no apparent distress, Oriented x3 HEENT: Mucous membr. moist/pink Neck: Supple, JVD not distended Respiratory: Clear to auscultation bilaterally, Normal air movement Cardiovascular: No edema, Regular rate/rhythm, Normal S1 S2 Gastrointestinal: Normal bowel sounds, Soft and benign, Non-distended, No tenderness Musculoskeletal: No swelling Integumentary: No rashes, No cyanosis Neurological: Normal strength at 5/5 x4 extr Laboratory Data at Discharge: WBC 4.60 thou/uL (4.3-10.9) 04/03/24 05:19 Hgb 10.4 g/dL (12.0-15.0) L 04/03/24 05:19 Hct 31.0 % (36.0-45.0) L 04/03/24 05:19 Plt Count 242 thou/uL (152-406) 04/03/24 05:19 Sodium 135 mEq/L (136-145) L D 04/04/24 04:40 Potassium 4.2 mEq/L (3.5-5.1) D 04/04/24 04:40 BUN 20 mg/dL (7-18) H 04/04/24 04:40 Creatinine 1.39 mg/dL (0.55-1.02) H 04/04/24 04:40 Glucose 107 mg/dL (74-106) H 04/04/24 04:40 Magnesium 1.9 mg/dL (1.6-2.4) 04/04/24 04:40 Total Bilirubin 0.3 mg/dL (0.2-1.0) 03/30/24 06:10 AST 17 U/L (15-37) 03/30/24 06:10 ALT 15 U/L (13-56) 03/30/24 06:10 Alkaline Phosphatase 122 U/L (45-117) H 03/30/24 06:10 Lipase 97 U/L (13-75) H 03/27/24 17:12 Home Medications: Aspirin Chewable [Aspirin Chewable*] 81 mg PO DAILY 03/29/24 Citalopram Hydrobromide [Citalopram HBr] 40 mg PO DAILY 03/29/24 Evolocumab [Repatha Syringe] 140 mg pe SQ Q14D 03/29/24 Ferrous Sulfate [Ferrous Sulfate*] 325 mg PO BEDTIME 03/29/24 Losartan Potassium [Cozaar] 100 mg PO DAILY 03/29/24 Magnesium Oxide [Mag 0X*] 400 mg PO BID 03/29/24 Metoprolol Succinate [Toprol Xl*] 25 mg PO BEDTIME 03/29/24 Octreotide [Sandostatin*] 100 mcg SQ BID 03/29/24 Pantoprazole [Protonix Tab*] 40 mg PO DAILY 03/29/24 Pregabalin [Lyrica*] 50 mg PO BID 03/29/24 Spironolact/Hydrochlorothiazid [Spironolactone-Hctz -25 Tab] 1 tab PO DAILY 03/29/24 Tizanidine HCl [Zanaflex] 1 mg PO BEDTIME PRN PRN 03/29/24 Acetaminophen [Tylenol*] 650 mg PO Q6H PRN tab 04/05/24 Docusate [Colace Cap*] 100 mg PO BID cap 04/05/24 Insulin 70/30 NPH/Reg Human [Novolin 7030*] 10 unit SQ BIDAC ml 04/05/24 Lidocaine 4% Patch [Lidoderm 5% Patch*] 1 patch TOP DAILY #0 pat 04/05/24 Nicotine [Nicoderm*] 14 mg TD DAILY 04/05/24 Senosides [Senokot*] 17.2 mg PO DAILY PRN tab 04/05/24 Physician Discharge Instructions: Physician discharge instructions: Patient presents with generalized weakness, fevers, chills, diarrhea for several days secondary to Pseudomonas Aeruginosa bacteremia. Unclear exact source, possibly secondary to gut translocation. She was recently transferred to [facility] on 02/27 for severe sepsis with no clear source. Blood cultures at the time also grew Pseudomonas Aeruginosa to which she completed 1 week of oral Levaquin. Family reported a 2-3 day delay in obtaining antibiotics. She did report some melena prior to admission however hasn't has a bowel movement since prior to admission. Hemoglobin remained stable throughout hospitalization. She was restarted on her home octreotide and received oral iron while hospitalized. ID was consulted and recommended patient complete 2 weeks of IV antibiotics, also recommended adding IV cefepime for double coverage given recurrent bacteremia. PICC line was placed 1/3 for prolonged IV antibiotics. Patient was feeling better, afebrile without leukocytosis for several days, strength improving, and deemed stable for discharge to SNF. Patient is to complete 2 weeks of IV cefepime and IV levaquin. (End date: ~04/10/24) Medications: IV Cefepime (End date: ~04/10/24) IV Levaquin (End date: ~04/10/24) Follow up: PCP 3-5 days Please call to schedule /confirm appointments Diet: ADA Activity: Fall precautions Followup: Julia Mcgregor MD [Primary Care Provider] - 1-2 Weeks Time spent managing pt's care (in minutes): 38
== END 2024-04-05 16:07 | DRG 871 ==
LOC: ER 15:13 → ERHOLD 20:48 → 2ND 03-28 12:05
PROVIDERS: ADMIT Internal Medicine Sleep Medicine; ATTEND Internal Medicine
PROC: 02HV33Z Insertion of Infusion Device into Superior Vena Cava, Percutaneous Approach (ICD-10-PCS; principal; 2024-03-31)
DX: A41.52 Sepsis due to Pseudomonas (principal); K55.21 Angiodysplasia of colon with hemorrhage; A09 Infectious gastroenteritis and colitis, unspecified; N17.9 Acute kidney failure, unspecified; Z16.29 Resistance to other single specified antibiotic; I13.0 Hypertensive heart and chronic kidney disease with heart failure and stage 1 through stage 4 chronic kidney disease, or unspecified chronic kidney disease; E44.0 Moderate protein-calorie malnutrition; K92.1 Melena; I50.9 Heart failure, unspecified; N18.30 Chronic kidney disease, stage 3 unspecified; E11.22 Type 2 diabetes mellitus with diabetic chronic kidney disease; E11.40 Type 2 diabetes mellitus with diabetic neuropathy, unspecified; E11.51 Type 2 diabetes mellitus with diabetic peripheral angiopathy without gangrene; D63.1 Anemia in chronic kidney disease; K21.9 Gastro-esophageal reflux disease without esophagitis; K59.00 Constipation, unspecified; J44.9 Chronic obstructive pulmonary disease, unspecified; B96.5 Pseudomonas (aeruginosa) (mallei) (pseudomallei) as the cause of diseases classified elsewhere; R33.9 Retention of urine, unspecified; Z11.52 Encounter for screening for COVID-19; Z88.1 Allergy status to other antibiotic agents; Z88.5 Allergy status to narcotic agent; Z88.8 Allergy status to other drugs, medicaments and biological substances; Z91.041 Radiographic dye allergy status; Z90.49 Acquired absence of other specified parts of digestive tract; Z95.1 Presence of aortocoronary bypass graft; Z79.4 Long term (current) use of insulin; Z79.82 Long term (current) use of aspirin; Z79.899 Other long term (current) drug therapy; Z68.21 Body mass index [BMI] 21.0-21.9, adult
CPT/HCPCS: 36415; 71045; 71250; 74176; 80048; 80053; 81001; 82947; 83605; 83690; 83735; 85014; 85018; 85025; 87040; 87077; 87186; 87205; 87804; 87811; 97116; 97161; 97530; 99285; J0692; J0696; J1815; J2003; J2354; J2405; J7030; J7040; J7042

== ENCOUNTER 2024-04-11 13:00 | Emergency (ER) | payer MEDICARE, OTHER ==
--- NOTE | 2024-04-11 15:03 | RAD REPORT ---
Procedure: Chest Single View HISTORY: Black tarry stool COMPARISON: February 2024 FINDINGS: The lungs appear clear of acute infiltrate. No significant pleural effusion noted. The heart is normal size.. Neuro stimulator device overlies the spine IMPRESSION: No acute abnormality is displayed.
[2024-04-11 15:52] LABS: Absolute Basophils 0.1 K/uL (0-0.5); Absolute Eosinophils 0.1 K/uL (0-0.5); Absolute Lymphocytes (CBC) 0.8 K/uL (0.7-4.9); Absolute Monocytes 0.6 K/uL (0.1-1.3); Absolute Neutrophil 3.8 K/uL (1.8-8.0); Eosinophils % 2.6 % (0-4.4); Hematocrit 22.7 % (36.0-45.0); Hemoglobin 7.2 g/dL (12.0-15.0); Lymphocytes % 14.9 % (15.3-44.8); MCH 26.2 pg (27.0-35.0); MCHC 31.6 g/dL (32.0-36.0); MCV 83.1 fL (80-100); MPV 8.8 fL (7.6-11.3); Neutrophils % 69.5 % (41.7-73.7); Nucleated Red Blood Cells % 0.1 % (0-0); Platelets 352 thou/uL (152-406); RBC Red Blood Cell Count 2.74 M/uL (3.86-4.86); Red Cell Distribution Width 17.5 % (12.1-15.2)
[2024-04-11 15:56] LABS: PT Prothrombin Time 12.3 SECONDS (9.4-12.5); Protime INR 1.17
[2024-04-11 16:12] LABS: AST/SGOT 11 U/L (15-37); Albumin 2.5 g/dL (3.4-5.0); Albumin/Globulin Ratio 0.6 (1.1-1.8); Alkaline Phosphatase 80 U/L (45-117); Anion Gap 7.6 mEq/L (5.0-15.0); BUN Blood Urea Nitrogen 40 mg/dL (7-18); Bicarbonate 27 mEq/L (21-32); Bilirubin Total 0.3 mg/dL (0.2-1.0); Glomerular Filtration Rate 28 ml/min (=/>90); Glucose Level 284 mg/dL (74-106); Magnesium 2.3 mg/dL (1.6-2.4); NT PRO-BNP 1346 pg/mL (<450); Potassium 4.6 mEq/L (3.5-5.1); Protein, Total 6.5 g/dL (6.4-8.2); Sodium Level 128 mEq/L (136-145); Troponin High Sensitivity 12.7 pg/mL (<58.9)
[2024-04-11 16:16] LABS: ALT/SGPT < 14 U/L (13-56); Bilirubin Direct < 0.2 mg/dL (0-0.2); Bilirubin Indirect, Calculated 0.1 mg/dL (0.2-0.8)
--- NOTE | 2024-04-11 16:22 | RAD REPORT ---
EXAMINATION: CT ABDOMEN AND PELVIS WITHOUT CONTRAST CLINICAL INDICATION: Abdominal pain. Black tarry stools TECHNIQUE: CT abdomen and pelvis was performed, as per department protocol. IV contrast and oral was not administered.Axial, sagittal and coronal reconstructions were obtained. One or more of the following dose reduction techniques were used: Automated exposure control, adjustment of the mA and/o r kV according to the patient size, and/or iterative reconstruction. Unless otherwise specified, incidental findings do not require dedicated imaging follow-up. [id number]. COMPARISON: December 2023. FINDINGS: The lack of intravenous and oral contrast limits evaluation of solid organs, vessels and bowel. Severe atherosclerosis with vascular grafts. 5.6 cm low-density mass has developed within the spleen. Additional smaller low ending towards the pe riphery. The liver, pancreas, adrenals and right kidney grossly normal. Small left kidney unchanged. Marked diastases of the rectus abdominis muscles with laxity of the anterior abdominal wall. No evidence of diverticulitis. Rectosigmoid colon mildly distended with stool. Neuro stimulator device in place. Post surgical changes are spine IMPRESSION: Development of a 5.6 cm low-density mass within the spleen. 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 Additional smaller splenic infarct is present.
--- NOTE | 2024-04-11 16:40 | EDPHYS ---
Physician Documentation [facility] Name: Sia Salazar Age: 78 yrs Sex: Female : 1945 Arrival Date: 04/11/2024 Time: 13:00 Bed 24 Private MD: ED Physician Roderick Luna HPI: 04/11 13:25 This 78 yrs old Female presents to ER via Wheelchair with complaints of Black/Tarry cp Stools. 13:25 Onset: The symptoms/episode began/occurred 3 day(s) ago. cp 13:25 Associated signs and symptoms: Pertinent positives: abdominal pain, general weakness, cp Pertinent negatives: chest pain, constipation, diarrhea, fever, headache, vomiting. 13:25 Patient reports taking aspirin daily. cp Historical: - Allergies: 13:17 Actos; cm10 13:17 Bactrim; cm10 13:17 Clindamycin; cm10 13:17 Codeine; cm10 13:17 Crestor; cm10 13:17 Darvocet-N 100; cm10 13:17 Erythromycin; cm10 13:17 Glimepiride; cm10 13:17 Glipizide; cm10 13:17 Iodinated Contrast Media - IV Dye; cm10 13:17 Januvia; cm10 13:17 Lipitor; cm10 13:17 metformin; cm10 13:17 metronidazole; cm10 13:17 Morphine; cm10 13:17 PENICILLINS; cm10 13:17 Sulfa (Sulfonamide Antibiotics); cm10 13:17 Wellbutrin; cm10 - Home Meds: 13:17 aspirin 81 mg Oral capsule once [Active]; citalopram 40 mg tablet once [Active]; cm10 duloxetine 60 mg Oral capsule 1 cap daily [Active]; ferrous sulfate 325 mg (65 mg iron) Oral tablet once [Active]; magnesium oxide 400 mg (241.3 mg magnesium) Oral tablet 2 times per day [Active]; docusate sodium 100 mg oral tablet 2 times per day [Active]; Novolin 70/30 [place] Sub-Q 10 unit two times per day before meals [Active]; losartan 100 mg oral tablet 1 tab daily [Active]; pregabalin 50 mg Oral capsule 1 cap 2 times per day [Active]; metoprolol tartrate 25 mg oral tablet 1 tab daily [Active]; octreotide acetate 100 mcg/mL (1 mL) injection Syringe 2 times per day [Active]; omeprazole 20 mg oral capsule,delayed release (e.c.) daily [Active]; Senna Lax 8.6 mg Oral tablet 2 times per day [Active]; spironolacton-hydrochlorothiaz 25-25 mg oral tablet 1 tab daily [Active]; tizanidine 1 mg oral capsule 1 cap once daily at bedtime [Active]; - PMHx: 13:17 angiodysplasia; bowel AVMs; bronchospastic airway disease; chronic pulmonary embolism; cm10 celiac artery stenosis; Cerebrovascular disease; chronic mesenteric ischemia; constipation (SBO); COPD; Diabetes - IDDM; Depression; GERD; ischemic bowel disease; peripheral artery disease; ibs; SBO; - PSHx: 13:17 Cholecystectomy; Coronary artery bypass graft; Tonsillectomy; cm10 - Immunization history:: Adult Immunizations. - Infectious Disease History:: Denies. - Social history:: Smoking status: Patient denies any tobacco usage or history of. ROS: 13:30 Constitutional: Negative for body aches, chills, fever, poor PO intake, cp 13:30 Abdomen/GI: Positive for abdominal pain, black/tarry stool, Negative for vomiting, cp diarrhea, constipation, 13:30 Eyes: Negative for injury, pain, redness, and discharge, cp 13:30 ENT: Negative for drainage from ear(s), ear pain, sore throat, difficulty swallowing, difficulty handling secretions, 13:30 Cardiovascular: Negative for chest pain, edema, palpitations, 13:30 Respiratory: Negative for cough, shortness of breath, wheezing, 13:30 Neuro: Positive for weakness, Negative for altered mental status, headache, syncope, cp near syncope, 13:30 All other systems are negative, Exam: 13:35 Constitutional: The patient appears in no acute distress, alert, awake, cp non-diaphoretic, non-toxic, well developed, well nourished, uncomfortable, 13:35 Head/Face: Normocephalic, atraumatic. cp 13:35 Eyes: Periorbital structures: appear normal, Conjunctiva: normal, no exudate, no injection, Sclera: no appreciated abnormality, Lids and lashes: appear normal, bilaterally, 13:35 ENT: External ear(s): are unremarkable, Nose: is normal, Mouth: Lips: moist, Oral mucosa: moist, Posterior pharynx: Airway: no evidence of obstruction, patent, 13:35 Neck: ROM/movement: is normal, is supple, without pain, no range of motions limitations, 13:35 Chest/axilla: Inspection: normal, 13:35 Cardiovascular: Rate: normal, Rhythm: regular, Edema: is not appreciated, JVD: is not appreciated, 13:35 Respiratory: the patient does not display signs of respiratory distress, Respirations: normal, no use of accessory muscles, no retractions, labored breathing, is not present, Breath sounds: are clear throughout, no decreased breath sounds, no stridor, no wheezing, 13:35 Abdomen/GI: Inspection: abdomen appears normal, Bowel sounds: active, all quadrants, Palpation: soft, in all quadrants, mild abdominal tenderness, in the right lower quadrant and left lower quadrant, Rectal exam: Stool: black, 13:35 Back: pain, is absent, ROM is normal, 13:35 Neuro: Orientation: to person, place \T\ time. Mentation: is normal, Motor: moves all fours, no focal deficits, 16:30 ECG was reviewed by the Attending Physician. cp Vital Signs: 13:16 BP 126 / 47; Pulse 77; Resp 15; Temp 98.5(O); Pulse Ox 98% on R/A; Weight 59.42 kg; cm10 Height 5 ft. 2 in. ; Pain 3/10; 15:00 BP 117 / 96; Pulse 72; Resp 16; Pulse Ox 100% on R/A; jb4 16:00 BP 146 / 36; Pulse 71; Resp 16; Pulse Ox 98% on R/A; jb4 17:30 BP 128 / 40; Pulse 58; Resp 16; Pulse Ox 97% on R/A; jb4 19:39 BP 126 / 36; Pulse 72; Resp 16; Pulse Ox 96% on R/A; jb4 13:16 Body Mass Index 23.96 (59.42 kg, 157.48 cm) cm10 13:16 Pain Scale: Adult cm10 MDM: 13:28 Medical Screening Exam initiated nelly 14:00 Differential diagnosis: anemia, gastrointestinal hemorrhage, diverticulitis, iron cp deficiency, upper GI bleed. 16:45 Data reviewed: vital signs, nurses notes, lab test result(s), EKG, radiologic studies, cp CT scan, plain films, I have discussed the patient's presentation/case with the attending Emergency Department Physician; and as a result, I will transfer patient. 16:45 I considered the following discharge prescriptions or medication management in the emergency department Medications were administered in the Emergency Department. See MAR. Independent interpretation of the following test(s) in the Emergency Department EKG: See my EKG interpretation above. Counseling: I had a detailed discussion with the patient and/or guardian regarding the historical points, exam findings, and any diagnostic results supporting the discharge/admit diagnosis, lab results, radiology results, the need to transfer to another facility, for higher level of care. 17:27 ED course: consult with GI at [facility], DR Flanagan, who will consult. 04/11 13:23 Order name: Basic Metabolic Panel; Complete Time: 16:29 04/11 16:29 Interpretation: Normal except: NA 128; GLUC 284; BUN 40; CRE 1.83; GFR 28. 04/11 13:23 Order name: CBC with Diff; Complete Time: 16:29 04/11 16:30 Interpretation: Normal except: RBC 2.74; HGB 7.2; HCT 22.7; MCH 26.2; MCHC 31.6; RDW cp 17.5; LYM% 14.9; BASO% 2.0. 04/11 13:23 Order name: LFT's; Complete Time: 16:29 04/11 13:23 Order name: Magnesium; Complete Time: 16:29 04/11 13:23 Order name: NT PRO-BNP; Complete Time: 16:29 04/11 13:23 Order name: PT-INR; Complete Time: 16:29 04/11 13:23 Order name: Troponin HS; Complete Time: 16:29 04/11 13:23 Order name: Ptt, Activated; Complete Time: 16:29 04/11 13:23 Order name: Type And Screen 04/11 18:11 Order name: Antibody Identification [facility] 04/11 13:23 Order name: XRAY Chest (1 view); Complete Time: 15:18 04/11 15:39 Order name: Abdomen ; Complete Time: 16:29 [facility] 04/11 13:23 Order name: EKG; Complete Time: 13:23 cp 04/11 13:23 Order name: Cardiac monitoring; Complete Time: 15:43 cp 04/11 13:23 Order name: EKG - Nurse/Tech; Complete Time: 16:57 cp 04/11 13:23 Order name: IV Saline Lock; Complete Time: 15:43 cp 04/11 13:23 Order name: Labs collected and sent; Complete Time: 15:43 cp 04/11 13:23 Order name: O2 Per Protocol; Complete Time: 14:59 cp 04/11 13:23 Order name: O2 Sat Monitoring; Complete Time: 14:59 cp 04/11 18:07 Order name: Labs - recollect needed: collect 2 large red tops and 2 large purple tops; bd Complete Time: 18:36 EC:30 Rate is 69 beats/min. Rhythm is regular. IL interval is prolonged at 230 msec. QRS cp interval is normal. QT interval is normal. T waves are Inverted in lead aVR. Interpreted by me. Reviewed by me. Administered Medications: 17:47 Drug: Pantoprazole IVP 40 mg IVP once Route: IVP; Site: left antecubital; [facility] 20:55 Follow up: Response: No adverse reaction [facility] 17:47 Drug: Pantoprazole IV 8 mg/hr IV at 25 ml/hr continuous; (Standard dilution is 80 mg in jb4 250 mL NS) Route: IV; Rate: 25 ml/hr; Site: left antecubital; 20:55 Follow up: Response: No adverse reaction; IV Status: Infusion continued upon transfer jb4 Disposition: 04/12 19:00 Chart complete. cp Disposition Summary: 04/11/24 16:39 Transfer Ordered Notes: Transfer Location: [facility] cp Reason: Higher level of care cp Condition: Stable cp Problem: new cp Symptoms: are unchanged cp Accepting Physician: DR Rodriguez(04/11/24 20:57) jb4 Diagnosis - Anemia in other chronic diseases classified elsewhere cp - GI Bleed/ Gastrointestinal hemorrhage, unspecified cp - Weakness cp Forms: - Medication Reconciliation Form cp - SBAR form cp Critical care time excluding procedures: 19:00 Critical care time: Bedside Care: 5 minutes, Consultation: 25 minutes, Family cp Intervention: 5 minutes. Total time: 35 minutes Addendum: 04/13/2024 09:36 Co-signature as Attending Physician, Roderick Luna MD I agree with the assessment and c james plan of care. Signatures: Dispatcher [employer] EDMS Pennie Deluna Corey, MD MD cha Page, Corey, PA PA cp Mike Ospina, RN RN jb4 Sandra Moya RN RN cm10 Corrections: (The following items were deleted from the chart) 04/11 13:27 13:17 Home Meds: losartan potassium (bulk) 100 % miscellaneous powder daily; cm10 cm10 15:39 14:54 Abdomen Pelvis W/Wo Con+CT.RAD.BRZ ordered. EDMS EDMS 16:47 16:47 BB Add On+BB.LAB.BRZ ordered. EDMS EDMS 18:17 16:39 doctor cp cp 20:55 16:39 Blood Transfusion Consent ordered. cp jb4 20:57 18:17 DR Rodriguez cp jb4 04/12 18:52 04/11 13:25 Associated signs and symptoms: Pertinent positives: abdominal pain, cp Pertinent negatives: constipation, diarrhea, fever, vomiting, cp
--- NOTE | 2024-04-11 16:40 | ER ---
Nurse's Notes [facility] Name: Sia Salazar Age: 78 yrs Sex: Female : 1945 Arrival Date: 04/11/2024 Time: 13:00 Bed 24 Private MD: Diagnosis: Anemia in other chronic diseases classified elsewhere;GI Bleed/ Gastrointestinal hemorrhage, unspecified;Weakness Presentation: 04/11 13:16 Chief complaint: Patient states: Black tarry stools onset 3 days ago. Pt reports cm10 abdominal pain. Denies nausea and vomiting. Coronavirus screen: Client denies travel out of the [place] in the last 14 days. Ebola Screen: Patient denies travel to an Ebola-affected area in the 21 days before illness onset. Initial Sepsis Screen: Does the patient meet any 2 criteria? No. Patient's initial sepsis screen is negative. Does the patient have a suspected source of infection? No. Patient's initial sepsis screen is negative. Risk Assessment: Do you want to hurt yourself or someone else? Patient reports no desire to harm self or others. Onset of symptoms was April 08, 2024. 13:16 Method Of Arrival: Wheelchair cm10 13:16 Acuity: GREGG 3 cm10 Triage Assessment: 13:27 General: Appears in no apparent distress. uncomfortable, Behavior is calm, cooperative. cm10 Neuro: No deficits noted. Level of Consciousness is awake, alert, obeys commands, Oriented to person, place, time, situation, Appropriate for age. Respiratory: No deficits noted. Airway is patent Respiratory effort is even, unlabored, Respiratory pattern is regular, symmetrical. Historical: - Allergies: 13:17 Actos; cm10 13:17 Bactrim; cm10 13:17 Clindamycin; cm10 13:17 Codeine; cm10 13:17 Crestor; cm10 13:17 Darvocet-N 100; cm10 13:17 Erythromycin; cm10 13:17 Glimepiride; cm10 13:17 Glipizide; cm10 13:17 Iodinated Contrast Media - IV Dye; cm10 13:17 Januvia; cm10 13:17 Lipitor; cm10 13:17 metformin; cm10 13:17 metronidazole; cm10 13:17 Morphine; cm10 13:17 PENICILLINS; cm10 13:17 Sulfa (Sulfonamide Antibiotics); cm10 13:17 Wellbutrin; cm10 - Home Meds: 13:17 aspirin 81 mg Oral capsule once [Active]; citalopram 40 mg tablet once [Active]; cm10 duloxetine 60 mg Oral capsule 1 cap daily [Active]; ferrous sulfate 325 mg (65 mg iron) Oral tablet once [Active]; magnesium oxide 400 mg (241.3 mg magnesium) Oral tablet 2 times per day [Active]; docusate sodium 100 mg oral tablet 2 times per day [Active]; Novolin 70/30 [place] Sub-Q 10 unit two times per day before meals [Active]; losartan 100 mg oral tablet 1 tab daily [Active]; pregabalin 50 mg Oral capsule 1 cap 2 times per day [Active]; metoprolol tartrate 25 mg oral tablet 1 tab daily [Active]; octreotide acetate 100 mcg/mL (1 mL) injection Syringe 2 times per day [Active]; omeprazole 20 mg oral capsule,delayed release (e.c.) daily [Active]; Senna Lax 8.6 mg Oral tablet 2 times per day [Active]; spironolacton-hydrochlorothiaz 25-25 mg oral tablet 1 tab daily [Active]; tizanidine 1 mg oral capsule 1 cap once daily at bedtime [Active]; - PMHx: 13:17 angiodysplasia; bowel AVMs; bronchospastic airway disease; chronic pulmonary embolism; cm10 celiac artery stenosis; Cerebrovascular disease; chronic mesenteric ischemia; constipation (SBO); COPD; Diabetes - IDDM; Depression; GERD; ischemic bowel disease; peripheral artery disease; ibs; SBO; - PSHx: 13:17 Cholecystectomy; Coronary artery bypass graft; Tonsillectomy; cm10 - Immunization history:: Adult Immunizations. - Infectious Disease History:: Denies. - Social history:: Smoking status: Patient denies any tobacco usage or history of. Screenin:56 [facility] ED Fall Risk Assessment (Adult) History of falling in the last 3 months, jb4 including since admission No falls in past 3 months (0 pts) Confusion or Disorientation No (0 pts) Intoxicated or Sedated No (0 pts) Impaired Gait No (0 pts) Mobility Assist Device Used No (0 pt) Altered Elimination No (0 pt) Score/Fall Risk Level 0 - 2 = Low Risk Oriented to surroundings, Maintained a safe environment. Abuse screen: Denies threats or abuse. Nutritional screening: No deficits noted. Tuberculosis screening: No symptoms or risk factors identified. Assessment: 15:00 General: Appears in no apparent distress. comfortable, Behavior is calm, cooperative, jb4 appropriate for age. Pain: Denies pain. Neuro: Level of Consciousness is awake, alert, obeys commands, Oriented to person, place, time, situation. Cardiovascular: Patient's skin is warm and dry. Respiratory: Airway is patent Respiratory effort is even, unlabored, Respiratory pattern is regular, symmetrical. Derm: Skin is intact, Skin is pink, warm \T\ dry. 15:00 GI: Reports bloody stool. jb4 16:00 Reassessment: Patient appears in no apparent distress at this time. Patient and/or jb4 family updated on plan of care and expected duration. Pain level reassessed. Patient is alert, oriented x 3, equal unlabored respirations, skin warm/dry/pink. 17:00 Reassessment: Patient appears in no apparent distress at this time. Patient and/or jb4 family updated on plan of care and expected duration. Pain level reassessed. Patient is alert, oriented x 3, equal unlabored respirations, skin warm/dry/pink. 18:37 Reassessment: Patient appears in no apparent distress at this time. Patient and/or jb4 family updated on plan of care and expected duration. Pain level reassessed. Patient is alert, oriented x 3, equal unlabored respirations, skin warm/dry/pink. 19:39 Reassessment: Patient appears in no apparent distress at this time. Patient and/or jb4 family updated on plan of care and expected duration. Pain level reassessed. Patient is alert, oriented x 3, equal unlabored respirations, skin warm/dry/pink. Vital Signs: 13:16 BP 126 / 47; Pulse 77; Resp 15; Temp 98.5(O); Pulse Ox 98% on R/A; Weight 59.42 kg; cm10 Height 5 ft. 2 in. ; Pain 3/10; 15:00 BP 117 / 96; Pulse 72; Resp 16; Pulse Ox 100% on R/A; jb4 16:00 BP 146 / 36; Pulse 71; Resp 16; Pulse Ox 98% on R/A; jb4 17:30 BP 128 / 40; Pulse 58; Resp 16; Pulse Ox 97% on R/A; jb4 19:39 BP 126 / 36; Pulse 72; Resp 16; Pulse Ox 96% on R/A; jb4 13:16 Body Mass Index 23.96 (59.42 kg, 157.48 cm) cm10 13:16 Pain Scale: Adult cm10 ED Course: 13:05 Patient arrived in ED. mr 13:17 Triage completed. cm10 13:18 Roderick Boswell PA is PHCP. cp 13:18 Roderick Luna MD is Attending Physician. cp 13:27 Arm band placed on right wrist. Patient placed in waiting room. cm10 14:41 XRAY Chest (1 view) In Process Unspecified. EDMS 15:34 Inserted saline lock: 18 gauge in left antecubital area, using aseptic technique. Blood jl7 collected. 15:43 Type And Screen Sent. jl7 15:43 Ptt, Activated Sent. jl7 15:43 Basic Metabolic Panel Sent. jl7 15:43 CBC with Diff Sent. jl7 15:43 LFT's Sent. jl7 15:43 Magnesium Sent. jl7 15:43 NT PRO-BNP Sent. jl7 15:43 Troponin HS Sent. jl7 15:43 PT-INR Sent. jl7 16:03 Abdomen In Process Unspecified. EDMS 17:[address] [facility]. bd 18:20 Inserted saline lock: 24 gauge in right wrist, using aseptic technique. Flushed with 10 cm10 mL NS Missed attempt(s): 18 gauge in right antecubital area. 22 gauge in left hand. Bleeding controlled, band aid applied, catheter tip intact. 20:56 Patient has correct armband on for positive identification. Bed in low position. Call jb light in reach. Side rails up X 1. Provided Education on: need for transfer.. 20:56 No provider procedures requiring assistance completed. Patient transferred, IV remains jb4 in place. Administered Medications: 17:47 Drug: Pantoprazole IVP 40 mg IVP once Route: IVP; Site: left antecubital; jb 20:55 Follow up: Response: No adverse reaction [facility] 17:47 Drug: Pantoprazole IV 8 mg/hr IV at 25 ml/hr continuous; (Standard dilution is 80 mg in jb4 250 mL NS) Route: IV; Rate: 25 ml/hr; Site: left antecubital; 20:55 Follow up: Response: No adverse reaction; IV Status: Infusion continued upon transfer jb4 Outcome: 16:39 ER care complete, transfer ordered by MD. sandoval 20:56 Transferred by ground EMS to other acute care facility: [facility].. jb4 20:56 Condition: stable 20:56 Discharge instructions given to patient, family, Instructed on the need for transfer, Demonstrated understanding of instructions, follow-up care, 20:57 Patient left the ED. jb4 Signatures: Dispatcher [employer] EDMS Pennie Deluna, Reyna, Reg Reg mr Roderick Boswell, KINGS PA Mike Jara RN RN jb4 Brent Zambrano RN RN jl7 Sandra Moya RN RN cm10 Corrections: (The following items were deleted from the chart) 13:27 13:17 Home Meds: losartan potassium (bulk) 100 % miscellaneous powder daily; cm10 cm10 21:02 20:56 Discharged to home ambulatory, [facility] jb
[2024-04-11] MEDS ORDERED: PANTOPRAZOLE 40 MG INJ ONE (17:30)
[2024-04-11] MEDS ORDERED: NA CHLORIDE 0.9% 250 ML ONE (17:31)
--- NOTE | 2024-04-13 11:55 | EKG ---
Test Date: 2024-04-11 Test Time: 16:24:35 [employer] Architect: ARNULFO MEASUREMENT RESULTS: Intervals: Rate: 69 HI: 230 QRSD: 88 QT: 446 QTc: 477 [place]: P: -14 HI: 230 QRS: -35 T: 57 INTERPRETIVE STATEMENTS: Sinus rhythm with 1st degree AV block Left axis deviation Anteroseptal infarct, age undetermined Abnormal ECG Compared to ECG 03/21/2024 14:04:59 Atrial premature complex(es) no longer present Myocardial infarct finding still present Electronically Signed On 04-13-24 11:55:11 NEWSPAPER PRESS OPERATOR APPRENTICE by Baljinder Harrison
[2024-04-14 01:42] VITALS: BP 126/36; TEMP 98.5; O2SAT 96
== END 2024-04-11 20:57 | disposition short-term general hospital (02) ==
LOC: ER 13:00
DX: D64.9 Anemia, unspecified (principal); R53.1 Weakness; E11.9 Type 2 diabetes mellitus without complications; Z79.4 Long term (current) use of insulin; Z79.82 Long term (current) use of aspirin; Z95.1 Presence of aortocoronary bypass graft
CPT/HCPCS: 96365; 93005; 85025; 80048; 36415; 86900; 83735; 86850; 85610; 86870; 86901; 80076; 85730; 84484; 83880; 74176; 71045; 99285; 96366; J2470; J7050

== ENCOUNTER 2024-05-02 13:17 | Emergency (ER) | payer MEDICARE, OTHER ==
[2024-05-02 14:08] LABS: Absolute Basophils 0.1 K/uL (0-0.5); Absolute Lymphocytes (CBC) 0.5 K/uL (0.7-4.9); Absolute Monocytes 0.6 K/uL (0.1-1.3); Absolute Neutrophil 10.3 K/uL (1.8-8.0); Basophils % 0.6 % (0-1.3); Eosinophils % 0.1 % (0-4.4); Hematocrit 31.6 % (36.0-45.0); Hemoglobin 10.1 g/dL (12.0-15.0); MCH 26.2 pg (27.0-35.0); MCHC 32.1 g/dL (32.0-36.0); MCV 81.7 fL (80-100); MPV 9.1 fL (7.6-11.3); Monocytes % 5.6 % (3.3-12.3); Neutrophils % 89.7 % (41.7-73.7); Nucleated Red Blood Cells % 0.1 % (0-0); Platelets 252 thou/uL (152-406); RBC Red Blood Cell Count 3.87 M/uL (3.86-4.86); Red Cell Distribution Width 16.6 % (12.1-15.2)
[2024-05-02 14:17] LABS: PT Prothrombin Time 13.3 SECONDS (9.4-12.5); PTT, Activated Partial Thromb 19.5 SECONDS (24.3-36.9); Protime INR 1.27
--- NOTE | 2024-05-02 14:18 | RAD REPORT ---
EXAMINATION: CT ABDOMEN AND PELVIS WITHOUT CONTRAST CLINICAL INDICATION: Female, 78 years old.ABD PAIN TECHNIQUE: CT abdomen and pelvis was performed, without IV contrast, as per department protocol. Axia l, sagittal and coronal reconstructions were obtained. One or more of the following dose reduction techniques were used: Automated exposure control, adjustment of the mA and/or kV according to the pat ient size, and/or iterative reconstruction. Unless otherwise specified, incidental findings do not require dedicated imaging follow-up. [id number]. IV CONTRAST: Not administered. COMPARISON: 04/11/2024 FINDINGS: The lack of intravenous contrast limits the sensitivity of this exam for evaluation of solid visceral organs, vascular structures, and retroperitoneum. LOWER CHEST: No acute process identified.No significant pericardial effusion. UPPER GI: No significant abnormality. LIVER: No significant focal abnormality. GALLBLADDER/BILE DUCTS: No biliary ductal dilatation.? PANCREAS: Atrophy, but otherwise unremarkable. SPLEEN: Low-density splenic lesion has decreased in size and now measures 3.4 cm compared with 025, previously 5.6 cm ADRENALS: No adrenal masses. KIDNEYS AND URETERS: No hydronephrosis.Atrophic left kidney. Left upper pole renal cyst. ABDOMINAL AORTA AND OTHER VESSELS: Severe atherosclerotic changes. No aortic aneurysm. Possible aorti c occlusion or high-grade stenosis secondary to bulky calcified intraluminal plaque. This is a chronic finding. PERITONEUM: No abnormal free fluid. No free air. LYMPH NODES: No pathologic lymphadenopathy. ABDOMINAL WALL: Ventral hernia containing bowel. Partially imaged right axillofemoral bypass. Femoral -femoral bypass also present.. SMALL BOWEL/COLON: Moderate stool in the rectum.Nonvisualized appendix but no secondary signs of acut e appendicitis. Mild diverticulosis without diverticulitis. No bowel obstruction. URINARY BLADDER: Underdistended but grossly unremarkable. REPRODUCTIVE ORGANS: No pathologic process. MUSCULOSKELETAL: Multilevel degenerative changes in the spine. No acute fracture. Spinal stimulator ADDITIONAL FINDINGS: None. IMPRESSION: 1. Moderate rectal stool but no bowel obstruction identified. 2. Numerous incidental findings as noted above. Of note, the previously identified splenic lesion has decreased in size since 04/11/2024 may reflect sequela of subacute splenic infarct or trauma.
[2024-05-02 14:27] LABS: ALT/SGPT 41 U/L (13-56); AST/SGOT 75 U/L (15-37); Albumin 2.4 g/dL (3.4-5.0); Albumin/Globulin Ratio 0.6 (1.1-1.8); Alkaline Phosphatase 133 U/L (45-117); BUN Blood Urea Nitrogen 30 mg/dL (7-18); Bicarbonate 24 mEq/L (21-32); Bilirubin Total 0.5 mg/dL (0.2-1.0); Globulin 4.1 g/dL (2.3-3.5); Glomerular Filtration Rate 31 ml/min (=/>90); Glucose Level 212 mg/dL (74-106); Lipase 112 U/L (13-75); Magnesium 1.8 mg/dL (1.6-2.4); Protein, Total 6.5 g/dL (6.4-8.2); Sodium Level 132 mEq/L (136-145); Troponin High Sensitivity 15.4 pg/mL (<58.9)
[2024-05-02 14:29] LABS: Bilirubin Direct < 0.2 mg/dL (0-0.2); Bilirubin Indirect, Calculated 0.3 mg/dL (0.2-0.8)
[2024-05-02 16:46] LABS: Sqamous Epithelial <5 /HPF (None Seen); Urine Bacteria None Seen /HPF (<20); Urine Bilirubin NEGATIVE (Negative); Urine Blood Negative (Negative); Urine Clarity Clear (Clear); Urine Color Yellow (Yellow); Urine Culture Reflex Order NOT NEEDED; Urine Glucose NEGATIVE (Negative); Urine Ketones TRACE (Negative); Urine Microscopic Reflex YN ORDER UMIC; Urine Nitrite NEGATIVE (Negative); Urine Protein 1+ (Negative); Urine RBC <5 /HPF (None Seen); Urine Urobilinogen Normal (Normal); Urine WBC <5 /HPF (<5); Urine pH 5.5 (5.0-7.0)
--- NOTE | 2024-05-02 17:17 | ER ---
Nurse's Notes [facility] Name: Sia Salazar Age: 78 yrs Sex: Female : 1945 Arrival Date: 05/02/2024 Time: 13:17 Bed 8 Private MD: Diagnosis: Constipation;Weakness Presentation: 05/02 13:32 Chief complaint: EMS states: Called EMS for abdominal pain and constipation, last ph Wednesday. Coronavirus screen: Vaccine status: Patient reports being unvaccinated. Ebola Screen: No symptoms or risks identified at this time. Risk Assessment: Do you want to hurt yourself or someone else? Patient reports no desire to harm self or others. Onset of symptoms was May 02, 2024. 13:32 Method Of Arrival: EMS: [facility] 13:32 Acuity: GREGG 3 ph 13:32 Initial Sepsis Screen: Does the patient meet any 2 criteria? No. Patient's initial bp sepsis screen is negative. Does the patient have a suspected source of infection? No. Patient's initial sepsis screen is negative. Triage Assessment: 14:09 General: Appears in no apparent distress. Behavior is calm, cooperative, appropriate bp for age, anxious. Pain: Denies pain. EENT: No deficits noted. Neuro: No deficits noted. Cardiovascular: Rhythm is sinus rhythm. Respiratory: No deficits noted. GI: Reports nausea. : No signs and/or symptoms were reported regarding the genitourinary system. Derm: No deficits noted. Musculoskeletal: No deficits noted. Historical: - Allergies: 14:09 Actos; bp 14:09 Bactrim; bp 14:09 Clindamycin; bp 14:09 Codeine; bp 14:09 Crestor; bp 14:09 Darvocet-N 100; bp 14:09 Erythromycin; bp 14:09 Glipizide; bp 14:09 Glimepiride; bp 14:09 Iodinated Contrast Media - IV Dye; bp 14:09 Januvia; bp 14:09 Lipitor; bp 14:09 metformin; bp 14:09 metronidazole; bp 14:09 Morphine; bp 14:09 PENICILLINS; bp 14:09 Sulfa (Sulfonamide Antibiotics); bp 14:09 Wellbutrin; bp - PMHx: 14:09 angiodysplasia; bowel AVMs; Cerebrovascular disease; Depression; celiac artery bp stenosis; chronic mesenteric ischemia; peripheral artery disease; ischemic bowel disease; SBO; GERD; bronchospastic airway disease; Diabetes - IDDM; chronic pulmonary embolism; constipation (SBO); COPD; ibs; - PSHx: 14:09 Tonsillectomy; Cholecystectomy; Coronary artery bypass graft; bp - Immunization history:: Adult Immunizations up to date. - Infectious Disease History:: Denies. - Social history:: Smoking status: Patient reports the use of cigarette tobacco products, unknown amount. Screenin:33 [facility] ED Fall Risk Assessment (Adult) History of falling in the last 3 months, ph including since admission No falls in past 3 months (0 pts) Confusion or Disorientation No (0 pts) Intoxicated or Sedated No (0 pts) Impaired Gait No (0 pts) Mobility Assist Device Used No (0 pt) Altered Elimination No (0 pt) Score/Fall Risk Level 0 - 2 = Low Risk Oriented to surroundings, Maintained a safe environment, Hourly rounding (assess needs \T\ fall precautionary measures) done. Abuse screen: Denies threats or abuse. Denies injuries from another. Nutritional screening: No deficits noted. Tuberculosis screening: No symptoms or risk factors identified. Assessment: 14:28 General: SEE TRIAGE ASSESSMENT. ph 16:00 Reassessment: No changes from previously documented assessment. Patient is alert, bp oriented x 3, equal unlabored respirations, skin warm/dry/pink. 17:30 Reassessment: DC ON HOLD FOR IVF COMPLETION. bp Vital Signs: 13:32 BP 130 / 47; Pulse 85; Resp 12; Temp 98; Pulse Ox 92% on R/A; bp 14:28 BP 130 / 47; Pulse 82; Resp 18; Pulse Ox 93% on R/A; ph 16:03 BP 116 / 47; Pulse 83; Resp 14; Pulse Ox 97% ; bp 17:49 BP 153 / 55; Pulse 78; Resp 15; Pulse Ox 98% ; bp 19:12 BP 145 / 90; Pulse 90; Resp 19; Temp 98; Pulse Ox 94% ; Pain 3/10; bm8 19:12 Pain Scale: Adult bm8 [place] Coma Score: 19:12 Eye Response: spontaneous(4). Motor Response: obeys commands(6). Verbal Response: bm8 oriented(5). Total: 15. ED Course: 13:18 Patient arrived in ED. bd 13:18 Beatris Freeman FNP-C [facility]. kb 13:18 Juan Neal DO is Attending Physician. kb 13:29 Jean-Claude Red, RN is Primary Nurse. bp 13:33 Triage completed. ph 13:33 Arm band placed on Patient placed in an exam room. ph 13:55 Abdomen In Process Unspecified. EDMS 14:00 Maintain EMS IV. Dressing intact. Good blood return noted. Site clean \T\ dry. Gauge \T\ bp site: 22 LUE. 14:29 Patient has correct armband on for positive identification. Placed in gown. Bed in low ph position. Call light in reach. Side rails up X2. Pulse ox on. NIBP on. Door closed. Noise minimized. Warm blanket given. Pillow given. 19:12 Provided Education on: post er care. bm8 19:12 No provider procedures requiring assistance completed. IV discontinued, intact, bm8 bleeding controlled, No redness/swelling at site. Pressure dressing applied. Administered Medications: 17:30 Drug: NS 0.9% IV 500 ml 500 ml IV at 1 bolus once; to be given as a bolus over 30 bp minutes Volume: 500 ml; Route: IV; Rate: 1 bolus; Site: left upper arm; 19:12 Follow up: Response: No adverse reaction; IV Status: Completed infusion; IV Intake: bm8 500ml Medication: 14:29 VIS not applicable for this client. ph Intake: 19:12 IV: 500ml; Total: 500ml. bm8 Outcome: 17:16 Discharge ordered by . kb 19:12 Discharged to home via wheelchair, with family, bm8 19:12 Condition: stable 19:12 Discharge instructions given to patient, family, Instructed on discharge instructions, follow up and referral plans. no drinking with medication, no driving heavy equipment, medication usage, safety practices, Demonstrated understanding of instructions, follow-up care, medications, 19:14 Patient left the ED. bm8 Signatures: Dispatcher [employer] EDMS Beatris Freeman FNP-C FNP-Pennie Lira Patricia, RN RN ph Jean-Claude Red, RN RN Derek Painter, RN RN bm8
--- NOTE | 2024-05-02 17:17 | EDPHYS ---
Physician Documentation [facility] Name: Sia Salazar Age: 78 yrs Sex: Female : 1945 Arrival Date: 05/02/2024 Time: 13:17 Bed 8 Private MD: ED Physician Juan Neal HPI: 05/02 13:27 This 78 yrs old Female presents to ER via Unassigned with complaints of weakness, kb constipation. 13:27 Pt is a 78 year old female who presents for weakness and constipation for 3 days. kb States she feels like she normally does when her blood counts are low, but she hasn't had any bleeding. Reports she normally has to get transfusions every 4-6 weeks and the last one was about 4 weeks ago. Reports AVM is the cause of her GI bleeding and there is no cure for it so it is something that she lives with. GI doc is at [facility]. . Historical: - Allergies: 14:09 Actos; bp 14:09 Bactrim; bp 14:09 Clindamycin; bp 14:09 Codeine; bp 14:09 Crestor; bp 14:09 Darvocet-N 100; bp 14:09 Erythromycin; bp 14:09 Glipizide; bp 14:09 Glimepiride; bp 14:09 Iodinated Contrast Media - IV Dye; bp 14:09 Januvia; bp 14:09 Lipitor; bp 14:09 metformin; bp 14:09 metronidazole; bp 14:09 Morphine; bp 14:09 PENICILLINS; bp 14:09 Sulfa (Sulfonamide Antibiotics); bp 14:09 Wellbutrin; bp - PMHx: 14:09 angiodysplasia; bowel AVMs; Cerebrovascular disease; Depression; celiac artery bp stenosis; chronic mesenteric ischemia; peripheral artery disease; ischemic bowel disease; SBO; GERD; bronchospastic airway disease; Diabetes - IDDM; chronic pulmonary embolism; constipation (SBO); COPD; ibs; - PSHx: 14:09 Tonsillectomy; Cholecystectomy; Coronary artery bypass graft; bp - Immunization history:: Adult Immunizations up to date. - Infectious Disease History:: Denies. - Social history:: Smoking status: Patient reports the use of cigarette tobacco products, unknown amount. ROS: 13:27 Constitutional: As per HPI kb Exam: 13:27 Constitutional: This is a well developed, well nourished patient who is awake, alert, kb and in no acute distress. Head/Face: Normocephalic, atraumatic. ENT: Moist Mucous membranes Cardiovascular: Regular rate Respiratory: Respirations even and unlabored. No increased work of breathing. Talking in full sentences Skin: Warm, dry with normal turgor. Normal color. MS/ Extremity: Pulses equal, no cyanosis. Neurovascular intact. Full, normal range of motion. Neuro: Awake and alert, GCS 15, oriented to person, place, time, and situation. 13:27 Abdomen/GI: Inspection: abdomen appears normal, Bowel sounds: normal, Palpation: soft, in all quadrants, mild abdominal tenderness, in the right upper quadrant and right lower quadrant, 14:10 ECG was reviewed by the Attending Physician. Vital Signs: 13:32 BP 130 / 47; Pulse 85; Resp 12; Temp 98; Pulse Ox 92% on R/A; bp 14:28 BP 130 / 47; Pulse 82; Resp 18; Pulse Ox 93% on R/A; ph 16:03 BP 116 / 47; Pulse 83; Resp 14; Pulse Ox 97% ; bp 17:49 BP 153 / 55; Pulse 78; Resp 15; Pulse Ox 98% ; bp 19:12 BP 145 / 90; Pulse 90; Resp 19; Temp 98; Pulse Ox 94% ; Pain 3/10; bm8 19:12 Pain Scale: Adult bm8 Ransom Coma Score: 19:12 Eye Response: spontaneous(4). Motor Response: obeys commands(6). Verbal Response: bm8 oriented(5). Total: 15. MDM: 13:18 Medical Screening Exam initiated kb 13:30 Data reviewed: vital signs, nurses notes. kb 17:14 Differential diagnosis: bowel obstruction, non-specific abd pain, constipation, anemia. kb Consideration of Admission/Observation Escalation of care including admission/observation considered. admission considered but no bowel obstruction or acute findings on CT, vss, H\T\H at baseline. Historians other than the Patient: EMS: [facility]. Counseling: I had a detailed discussion with the patient and/or guardian regarding the historical points, exam findings, and any diagnostic results supporting the discharge/admit diagnosis, lab results, radiology results, the need for outpatient follow up, a family practitioner, to return to the emergency department if symptoms worsen or persist or if there are any questions or concerns that arise at home. 05/02 13:22 Order name: CBC with Diff; Complete Time: 17:36 kb 05/02 13:22 Order name: Hepatic Function; Complete Time: 14:32 kb 05/02 13:22 Order name: Magnesium; Complete Time: 14:32 kb 05/02 13:22 Order name: Protime (+inr); Complete Time: 14:32 kb 05/02 13:22 Order name: Ptt, Activated; Complete Time: 14:32 kb 05/02 13:22 Order name: Troponin High Sensitivity; Complete Time: 14:32 kb 05/02 13:22 Order name: Urinalysis w/ reflexes; Complete Time: 16:46 kb 05/02 13:22 Order name: CMP; Complete Time: 14:32 kb 05/02 13:22 Order name: Lipase; Complete Time: 14:32 kb 05/02 13:22 Order name: Type And Screen kb 05/02 16:04 Order name: Antibody Identification EDMS 05/02 17:34 Order name: CBC Smear Scan; Complete Time: 17:36 EDMS 05/02 13:48 Order name: Abdomen ; Complete Time: 14:22 EDMS 05/02 13:22 Order name: Cardiac monitoring; Complete Time: 13:56 kb 05/02 13:22 Order name: EKG - Nurse/Tech; Complete Time: 14:08 kb 05/02 13:22 Order name: IV Saline Lock; Complete Time: 13:56 kb 05/02 13:22 Order name: Labs collected and sent; Complete Time: 13:56 kb 05/02 13:22 Order name: NPO; Complete Time: 13:56 kb 05/02 13:22 Order name: O2 Per Protocol; Complete Time: 13:56 kb 05/02 13:22 Order name: O2 Sat Monitoring; Complete Time: 13:56 kb 05/02 16:06 Order name: Misc. Order: please obtain urine specimen; Complete Time: 16:30 kb EC:10 Rate is 87 beats/min. Rhythm is regular. QRS Hasty is Normal. ME interval is normal at kb 200 msec. QRS interval is normal at 90 msec. QT interval is normal at 490 msec. Administered Medications: 17:30 Drug: NS 0.9% IV 500 ml 500 ml IV at 1 bolus once; to be given as a bolus over 30 bp minutes Volume: 500 ml; Route: IV; Rate: 1 bolus; Site: left upper arm; 19:12 Follow up: Response: No adverse reaction; IV Status: Completed infusion; IV Intake: bm8 500ml Disposition: 14:16 I was immediately available on-site in the Emergency Department for consultation in the ms3 care of the patient. Disposition Summary: 05/02/24 17:16 Discharge Ordered Notes: Location: Home kb Condition: Stable kb Diagnosis - Constipation kb - Weakness kb Followup: kb - With: Emergency Department - When: As needed - Reason: Worsening of condition Followup: kb - With: Private Physician - When: 2 - 3 days - Reason: Recheck today's complaints, Continuance of care, Re-evaluation by your physician Discharge Instructions: - Discharge Summary Sheet kb - Constipation, Adult, [id number] kb - Weakness, [id number] kb Forms: - Medication Reconciliation Form kb - Antibiotic Education kb - Prescription Opioid Use kb - Patient Portal Instructions kb - Leadership Thank You Letter kb - SBAR form bd Signatures: Dispatcher [employer] EDMS Beatris Freeman, MANAGER FACILITY-C MANAGER FACILITY-Ckb Jean-Claude Red, RN RN Juan Hankins DO DO ms3 Derek Gonzales RN bm8 Corrections: (The following items were deleted from the chart) 13:22 13:22 CBC+H.LAB.BRZ ordered. EDMS EDMS 13:22 13:22 HEPATIC FUNCTION+C.LAB.BRZ ordered. EDMS EDMS 13:22 13:22 MAGNESIUM+C.LAB.BRZ ordered. EDMS EDMS 13:22 13:22 PROTIME (+INR)+COAG.LAB.BRZ ordered. EDMS EDMS 13:22 13:22 PTT, ACTIVATED+COAG.LAB.BRZ ordered. EDMS EDMS 13:22 13:22 Troponin High Sensitivity+C.LAB.BRZ ordered. EDMS EDMS 13:22 13:22 Urinalysis+U.LAB.BRZ ordered. EDMS EDMS 13:22 13:22 COMPREHENSIVE METABOLIC PANEL+C.LAB.BRZ ordered. EDMS EDMS 13:22 13:22 LIPASE+C.LAB.BRZ ordered. EDMS EDMS 13:22 13:22 TYPE AND SCREEN+BB.LAB.BRZ ordered. EDMS EDMS 13: Abdomen Pelvis W Con+CT.RAD.BRZ ordered. EDMS EDMS
[2024-05-02 17:35] LABS: White Blood Cell Scan OK (OK)
[2024-05-02 17:36] LABS: Blood Morphology Comment NOT SEEN (NOT SEEN); Platelet Estimate ADEQ
[2024-05-02] MEDS ORDERED: NA CHLORIDE 0.9% 500 ML ONE (17:42)
[2024-05-02 19:47] VITALS: TEMP 98
[2024-05-02 19:52] VITALS: BP 145/90; O2SAT 94
--- NOTE | 2024-05-03 11:30 | EKG ---
Test Date: 2024-05-02 Test Time: 14:04:45 Manager Business Information: BP MEASUREMENT RESULTS: Intervals: Rate: 87 AZ: 200 QRSD: 90 QT: 408 QTc: 490 Hughson: P: 33 AZ: 200 QRS: 20 T: 36 INTERPRETIVE STATEMENTS: Normal sinus rhythm Anterolateral infarct, age undetermined Abnormal ECG Compared to ECG 04/11/2024 16:24:35 First degree AV block no longer present Left-axis deviation no longer present Myocardial infarct finding still present Electronically Signed On 05-03-24 11:28:10 MACHINE [employer] by Baljinder Harrison
== END 2024-05-02 19:14 | disposition home or self-care (01) ==
LOC: ER 13:17
DX: K59.00 Constipation, unspecified (principal); R53.1 Weakness; E11.9 Type 2 diabetes mellitus without complications; J44.9 Chronic obstructive pulmonary disease, unspecified; Z95.1 Presence of aortocoronary bypass graft
CPT/HCPCS: 93005; 85025; 81001; 36415; 86900; 83735; 86850; 85610; 86870; 86901; 80076; 85730; 84484; 83690; 80053; 74176; J7040

== ENCOUNTER 2024-05-03 20:13 | Emergency (ER) | payer OTHER ==
[2024-05-03] MEDS ORDERED: ONDANSETRON 4 MG/2 ML VIAL ONE (20:57)
[2024-05-03] MEDS ORDERED: FAMOTIDINE 20 MG/2 ML VIAL IV ONE (20:57)
[2024-05-03 21:46] LABS: Absolute Basophils 0.1 K/uL (0-0.5); Absolute Lymphocytes (CBC) 0.9 K/uL (0.7-4.9); Absolute Monocytes 0.9 K/uL (0.1-1.3); Basophils % 0.4 % (0-1.3); Hematocrit 35.6 % (36.0-45.0); Hemoglobin 11.2 g/dL (12.0-15.0); Lymphocytes % 4.9 % (15.3-44.8); MCH 26.6 pg (27.0-35.0); MCHC 31.6 g/dL (32.0-36.0); MPV 11.5 fL (7.6-11.3); Monocytes % 5.2 % (3.3-12.3); Neutrophils % 89.5 % (41.7-73.7); Platelets 206 thou/uL (152-406); RBC Red Blood Cell Count 4.23 M/uL (3.86-4.86); Red Cell Distribution Width 16.3 % (12.1-15.2)
[2024-05-03 21:59] LABS: Albumin 2.6 g/dL (3.4-5.0); Albumin/Globulin Ratio 0.6 (1.1-1.8); Anion Gap 26.7 mEq/L (5.0-15.0); Globulin 4.7 g/dL (2.3-3.5); Potassium 4.7 mEq/L (3.5-5.1); Protein, Total 7.3 g/dL (6.4-8.2)
[2024-05-03 22:19] LABS: Band Neutrophils 15 % (0-1); Blood Morphology Comment NOT SEEN (NOT SEEN); Differential Total Cells Count 100; Lymphocytes 5 % (15-42); Monocytes 2 % (0-10); Platelet Estimate ADEQ; Segmented Neutrophils 78 % (40-80)
--- NOTE | 2024-05-03 22:28 | RAD REPORT ---
EXAMINATION: CT Abdomen Pelvis Wo Contrast CLINICAL INDICATION: Female, 78 years old. vomiting/diarrhea;Abd pain TECHNIQUE: CT abdomen and pelvis was performed, without IV contrast, as per department protocol. Axia l, sagittal and coronal reconstructions were obtained. One or more of the following dose reduction techniques were used: Automated exposure control, adjustment of the mA and kV according to the patien t size, and iterative reconstruction. Unless otherwise specified, incidental findings do not require dedicated imaging follow-up. COMPARISON: 05/02/2024 FINDINGS: The lack of intravenous contrast limits the sensitivity of this exam for evaluation of solid visceral organs, vascular structures, and retroperitoneum. LOWER CHEST: The visualized lung bases are clear. LIVER: Normal in size and contour. No focal lesion. BILIARY SYSTEM: No suspicious abnormalities. SPLEEN: Normal size. No focal lesion. PANCREAS: No mass, ductal dilation, or analy-pancreatic fluid. ADRENALS: Normal; no mass. KIDNEYS AND URETERS: Atrophic changes of the left kidney again seen.. No hydronephrosis. URINARY BLADDER: Normal contour. GASTROINTESTINAL TRACT: Short segments of mildly to moderately distended central abdominal small gill l, with no abrupt transition point. Some of the segments extending within the ventral hernia cavity mentioned below. Sequelae of small bowel anastomosis again seen in the pelvis. No evidence of bowel o bstruction, significant free fluid, free air or abscess. APPENDIX: Normal appendix. LYMPH NODES: No lymphadenopathy. MUSCULOSKELETAL: No acute or suspicious osseous abnormality. ADDITIONAL FINDINGS: Wide neck midline ventral hernia containing loops of small and large bowel, onel sly stable. Dense atherosclerotic calcifications of the abdominal aorta most pronounced just below the SMA level. Axillary-femoral and femoral-femoral bypass grafts in place, not well assessed given n oncontrast technique. Sequelae of hysterectomy. IMPRESSION: Short segments of central abdominal small bowel distention with no focal transition point, findings m ay relate to mild ileus or ongoing enteritis. No other acute or concerning abnormalities in the abdomen or pelvis, with evaluation limited by lack of IV contrast. Other stable incidental findings as above.
--- NOTE | 2024-05-03 22:37 | ER ---
Nurse's Notes [facility] Name: Sia Salazar Age: 78 yrs Sex: Female : 1945 Arrival Date: 05/03/2024 Time: 20:13 Bed 3 Private MD: Diagnosis: Abdominal pain, unspecified;Ileus, unspecified;Mesenteric Ischemia Presentation: 05/03 20:35 Chief complaint: EMS states: LUQ and LLQ pain, N/V, and diarrhea. Coronavirus screen: ay Client denies travel out of the [place] in the last 14 days. Ebola Screen: No symptoms or risks identified at this time. 20:35 Method Of Arrival: EMS: [facility] ay 20:35 Initial Sepsis Screen: Does the patient meet any 2 criteria? No. Patient's initial ay sepsis screen is negative. Does the patient have a suspected source of infection? No. Patient's initial sepsis screen is negative. Risk Assessment: Do you want to hurt yourself or someone else? Patient reports no desire to harm self or others. Note BIBA with a c/o LLQ and LUQ pain with nausea and vomiting. Pt also report of diarrhea. HX COPD and DM. Onset of symptoms was May 03, 2024. 20:35 Acuity: GREGG 3 ay Triage Assessment: 20:35 General: Appears in no apparent distress. uncomfortable, Behavior is cooperative, ay restless. Pain: Complains of pain in left upper quadrant and left lower quadrant Pain currently is 10 out of 10 on a pain scale. EENT: No signs and/or symptoms were reported regarding the EENT system. Neuro: Level of Consciousness is awake, alert, obeys commands, Oriented to person, place, time, situation, Speech is normal. Cardiovascular: Denies chest pain, shortness of breath, Capillary refill < 3 seconds. Respiratory: Airway is patent Respiratory effort is even, unlabored, Respiratory pattern is regular, symmetrical. GI: Bowel sounds present X 4 quads. Abd is soft Abdomen is tender to palpation X 4 quads. Reports diarrhea, nausea, vomiting. : No signs and/or symptoms were reported regarding the genitourinary system. Derm: No signs and/or symptoms reported regarding the dermatologic system. Historical: - Allergies: 21:54 Actos; ay 21:54 Bactrim; ay 21:54 Clindamycin; ay 21:54 Codeine; ay 21:54 Crestor; ay 21:54 Darvocet-N 100; ay 21:54 Erythromycin; ay 21:54 Glimepiride; ay 21:54 Glipizide; ay 21:54 Iodinated Contrast Media - IV Dye; ay 21:54 Januvia; ay 21:54 Lipitor; ay 21:54 metformin; ay 21:54 metronidazole; ay 21:54 Morphine; ay 21:54 PENICILLINS; ay 21:54 Sulfa (Sulfonamide Antibiotics); ay 21:54 Wellbutrin; ay - Home Meds: 21:54 aspirin 81 mg Oral capsule once [Active]; citalopram 40 mg tablet once [Active]; ay docusate sodium 100 mg Oral tablet 2 times per day [Active]; duloxetine 60 mg Oral capsule 1 cap daily [Active]; ferrous sulfate 325 mg (65 mg iron) Oral tablet once [Active]; losartan 100 mg Oral tablet 1 tab daily [Active]; losartan potassium (bulk) 100 % miscellaneous powder daily [Active]; magnesium oxide 400 mg (241.3 mg magnesium) Oral tablet 2 times per day [Active]; metoprolol succinate 25 mg Oral Tablet once [Active]; metoprolol succinate oral 250 mg 1 tab daily [Active]; metoprolol tartrate 25 mg Oral tablet 1 tab daily [Active]; Nifedipine ER Oral 30 mg daily [Active]; Novolin 70/30 [place] Sub-Q 10 unit two times per day before meals [Active]; Novolin R FlexPen 100 unit/mL (3 mL) subcutaneous Insulin Pen 12 units 2 times per day [Active]; octreotide acetate 100 mcg/mL (1 mL) injection Syringe 2 times per day [Active]; octreotide intramuscular once [Active]; octreotide intramuscular once [Active]; octreotide intramuscular once [Active]; octreotide intramuscular once [Active]; octreotide intramuscular once [Active]; octreotide intramuscular once [Active]; omeprazole 20 mg Oral capsule daily [Active]; pantoprazole 40 mg Oral tablet once [Active]; pregabalin 50 mg Oral capsule 1 cap 2 times per day [Active]; Senna Lax 8.6 mg Oral tablet 2 times per day [Active]; spironolactone 25 mg Oral tablet [Active]; spironolacton-hydrochlorothiaz 25-25 mg Oral tablet 1 tab daily [Active]; Stool Softener 50 mg Oral capsule [Active]; tizanidine 1 mg Oral capsule 1 cap once daily at bedtime [Active]; Xarelto 2.5 mg Oral tablet 2 times per day [Active]; octreotide intramuscular once [Active]; octreotide intramuscular [Active]; - PMHx: 21:54 angiodysplasia; bowel AVMs; bronchospastic airway disease; celiac artery stenosis; ay Cerebrovascular disease; chronic mesenteric ischemia; chronic pulmonary embolism; constipation (SBO); COPD; Depression; Diabetes - IDDM; GERD; ibs; ischemic bowel disease; peripheral artery disease; SBO; - PSHx: 21:54 Cholecystectomy; Coronary artery bypass graft; Tonsillectomy; ay - Immunization history:: Adult Immunizations up to date. - Infectious Disease History:: Denies. - Family history:: not pertinent. - Social history:: Smoking status: Patient reports the use of cigarette tobacco products, smokes one-half pack cigarettes per day. - Hospitalizations: : No recent hospitalization is reported. Screenin:35 [facility] ED Fall Risk Assessment (Adult) History of falling in the last 3 months, ay including since admission No falls in past 3 months (0 pts) Confusion or Disorientation No (0 pts) Intoxicated or Sedated No (0 pts) Impaired Gait No (0 pts) Mobility Assist Device Used No (0 pt) Altered Elimination No (0 pt) Score/Fall Risk Level 0 - 2 = Low Risk Oriented to surroundings, Maintained a safe environment, Educated pt \T\ family on fall prevention, incl call for assistance when getting out of bed. Abuse screen: Denies threats or abuse. Nutritional screening: No deficits noted. Tuberculosis screening: No symptoms or risk factors identified. Assessment: 22:06 General: See Triage Assessment. ay 23:39 General: Appears in no apparent distress. uncomfortable, ill, Behavior is cooperative. al5 Pain: Complains of pain in left lower quadrant and left upper quadrant Pain currently is 10 out of 10 on a pain scale. Neuro: Level of Consciousness is awake, alert, obeys commands, Oriented to person, place, time, situation, Gait is unsteady. Cardiovascular: Capillary refill < 3 seconds Patient's skin is warm and dry. Respiratory: Airway is patent Respiratory effort is even, unlabored, Respiratory pattern is regular, symmetrical. GI: Abdomen is round non-distended, Reports lower abdominal pain, upper abdominal pain, diarrhea, nausea, vomiting. : No signs and/or symptoms were reported regarding the genitourinary system. EENT: No signs and/or symptoms were reported regarding the EENT system. Derm: Skin is intact, Skin is pink, warm \T\ dry. normal. Musculoskeletal: No signs and/or symptoms reported regarding the musculoskeletal system. 05/04 01:13 Reassessment: Patient appears in no apparent distress at this time. No changes from al5 previously documented assessment. Patient and/or family updated on plan of care and expected duration. Pain level reassessed. Patient is alert, oriented x 3, equal unlabored respirations, skin warm/dry/pink. gave nurse to nurse report to piter camargo at [facility]. 02:07 Reassessment: Patient appears in no apparent distress at this time. No changes from al5 previously documented assessment. Patient and/or family updated on plan of care and expected duration. Pain level reassessed. Patient is alert, oriented x 3, equal unlabored respirations, skin warm/dry/pink. Vital Signs: 05/03 20:35 BP 120 / 52; Pulse 94; Resp 20; Temp 97.6; Pulse Ox 96% ; ay 22:09 BP 91 / 60; Pulse 83; Resp 20; Pulse Ox 100% on R/A; ay 22:55 BP 97 / 55; Pulse 78; Resp 19; Pulse Ox 100% on R/A; ay 23:30 BP 99 / 67; Pulse 75; Resp 18; Pulse Ox 100% on R/A; al5 23:45 BP 86 / 59; Pulse 89; Resp 20; Pulse Ox 95% on R/A; al5 23:58 Weight 54.43 kg; Height 5 ft. 2 in. ; al5 05/04 00:00 BP 86 / 48; Pulse 73; Resp 20; Pulse Ox 98% on R/A; al5 00:16 BP 86 / 50; Pulse 73; Resp 19; Pulse Ox 97% on R/A; al5 00:30 BP 87 / 52; Pulse 72; Resp 21; Pulse Ox 75% on R/A; al5 00:45 BP 94 / 56; Pulse 78; Resp 23; Pulse Ox 98% on R/A; al5 01:00 BP 81 / 44; Pulse 70; Resp 25; Pulse Ox 95% on R/A; al5 01:05 BP 89 / 75; Pulse 72; Resp 21; Pulse Ox 94% on R/A; al5 01:10 BP 89 / 55; Pulse 70; Resp 23; Pulse Ox 95% on R/A; al5 01:15 BP 84 / 54; Pulse 70; Resp 23; Pulse Ox 95% on R/A; al5 01:20 BP 101 / 50; Pulse 70; Resp 22; Pulse Ox 95% on 4 lpm NC; al5 01:25 BP 92 / 53; Pulse 68; Resp 21; Pulse Ox 98% on 4 lpm NC; al5 01:30 BP 91 / 53; Pulse 70; Resp 21; Pulse Ox 97% on 4 lpm NC; al5 01:40 BP 82 / 45; Pulse 69; Resp 20; Pulse Ox 98% on R/A; al5 01:46 BP 102 / 54; Pulse 70; Resp 19; Pulse Ox 98% on 4 lpm NC; al5 01:50 BP 126 / 65; Pulse 71; Resp 19; Pulse Ox 95% on 4 lpm NC; al5 01:55 BP 93 / 51; Pulse 67; Resp 21; Pulse Ox 94% on 4 lpm NC; al5 02:00 BP 109 / 67; Pulse 69; Resp 20; Pulse Ox 96% on 4 lpm NC; al5 02:26 BP 111 / 51; rn 02:32 BP 112 / 84; Pulse 73; Resp 21; Pulse Ox 100% on 4 lpm NC; al5 05/03 23:58 Body Mass Index 21.95 (54.43 kg, 157.48 cm) ks5 ED Course: 05/03 20:16 Patient arrived in ED. kb 20:16 Lai Dumont MD is Private Physician. kb 20:17 Lai Dumont MD is Attending Physician. kb 20:35 No provider procedures requiring assistance completed. Inserted saline lock: 22 gauge ay in left hand, using aseptic technique. 20:35 Arm band placed on left wrist. ay 20:35 Patient has correct armband on for positive identification. Bed in low position. Call ay light in reach. Side rails up X2. ekg monitor tech on. Pulse ox on. NIBP on. 20:53 Macario Figueroa, PITER is Primary Nurse. ay 21:28 CBC with Diff Sent. ay 21:28 CMP Sent. ay 21:28 Lipase Sent. ay 21:52 Abdomen In Process Unspecified. EDMS 21:54 Triage completed. ay 22:36 Carl George MD is Hospitalizing Provider. rn 05/04 01:30 Assisted provider with central line placement. Set up central line tray. Triple lumen al5 line placed in right femoral. Line placed by Lai Dumont MD Placement verified by CXR, Dressed with Tegaderm, Blood was collected. Patient tolerated well. Before procedure, did Practitioner(s) obtain informed consent? Yes. Patient \T\ family education about procedure, CLABSI prevention and S/S of infection? Yes. Time-out/Briefing performed prior to start of procedure? Yes. Was handwashing/sanitizing done immediately prior to procedure? Yes. Was patient positioned to in a way to prevent air embolism? Yes. Was procedure site sterilized? Yes, with chlorhexidine. Was the site allowed to dry? Yes. Was local anesthetic and/or sedation utilized? Yes. During the procedure, did the Practitioner(s) maintain a sterile field? Yes. Were unused ports clamped during insertion? Yes. Was a 2nd qualified MD obtained after 3 unsuccessful insertion attempts? No. Was blood aspirated from each lumen? Yes. 02:07 Provided Education on: need for transfer. al5 02:33 Patient transferred, IV remains in place. al5 Administered Medications: 05/03 21:03 Drug: Famotidine IVP 20 mg IVP once; dilute with 10 mL 0.9% NaCl; give over 2 minutes ay Route: IVP; Site: left hand; 21:28 Follow up: Response: No adverse reaction ay 21:03 Drug: Ondansetron IVP 4 mg IVP once; over 2 minutes Route: IVP; Site: left hand; ay 21:28 Follow up: Response: No adverse reaction ay 23:10 Drug: Rocephin IV 1 grams IV at calculated rate once; Given slow IV push per pharmacy [id number] instructions Route: IV; Rate: calculated rate; Site: left wrist; 05/04 00:13 Follow up: Response: No adverse reaction; IV Status: Completed infusion al5 05/03 23:10 Drug: NS 0.9% IV 500 ml 500 ml IV at 1 bolus once; to be given as a bolus over 30 jb4 minutes Volume: 500 ml; Route: IV; Rate: 1 bolus; Site: left wrist; 05/04 00:14 Follow up: Response: No adverse reaction; IV Status: Completed infusion; IV Intake: al5 500ml 05/03 23:11 Drug: NS 0.9% IV 500 ml 500 ml IV at 1 bolus once; to be given as a bolus over 30 jb4 minutes Volume: 500 ml; Route: IV; Rate: 1 bolus; Site: left wrist; 05/04 00:14 Follow up: Response: No adverse reaction; IV Status: Completed infusion; IV Intake: al5 500ml 00:13 Drug: NS 0.9% IV (30 ml/kg) 30 ml/kg IV at bolus once; Sepsis Protocol; to be given as al5 a bolus over 90 min Route: IV; Rate: bolus; Site: left wrist; 00:55 Follow up: Response: No adverse reaction; IV Status: Completed infusion; IV Intake: al5 1632.9ml 01:08 Drug: Norepinephrine IV 0.1 mcg/kg/min IV at calculated rate Per protocol; (Standard al5 concentration 4 mg / 250 mL D5W); Recommended max rate 3 mcg/kg/min; Titrate 0.05 mcg/kg/min as often as every 5 minutes to achieve goal (see titration policy); Goal parameter MAP greater than 65 mmHg. Route: IV; Rate: calculated rate; Site: left forearm; 02:01 Follow up: Response: No adverse reaction; Rate change 10 mcg/min al5 02:33 Follow up: Response: No adverse reaction; IV Status: Infusion continued upon transfer al5 01:09 Drug: MethylPrednisoLONE IVP 125 mg IVP once Route: IVP; Site: left forearm; al5 01:41 Follow up: Response: No adverse reaction al5 02:01 Drug: fentaNYL (PF) IVP 25 mcg IVP once Route: IVP; Site: right femoral; al5 02:33 Follow up: Response: No adverse reaction; Pain is decreased al5 Medication: 00:14 VIS not applicable for this client. al5 Intake: 00:14 IV: 500ml; Total: 500ml. al5 00:14 IV: 500ml; Total: 1000ml. al5 00:55 IV: 1633ml; Total: 2633ml. al5 Outcome: 05/03 22:37 Decision to Hospitalize by Provider. rn 05/04 00:38 ER care complete, transfer ordered by . rn 02:33 Transferred by ground EMS EMS. Note: [facility] al5 02:33 Condition: stable 02:33 Instructed on the need for transfer, 02:34 Patient left the ED. al5 Signatures: Dispatcher [employer] EDMS Beatris Freeman, SHIP PILOT DISPATCHER-C SHIP PILOT DISPATCHER-Ckb Lai Dumont MD MD rn Bryson, James RN RN jbMorena Appiah RN RN al5 Macario Figueroa RN PITER ay Corrections: (The following items were deleted from the chart) 00:36 05/03 23:41 BP 99 / 67; Pulse 75bpm; Resp 18bpm; Pulse Ox 100% RA; al5 al5 05/04 01:13 01:13 Reassessment: gave nurse to nurse report to piter camargo at [place] [id number] 02:11 01:55 BP 109 / 67; Pulse 69bpm; Resp 20bpm; Pulse Ox 96% 4 lpm Nasal Cannula; al5 al5
--- NOTE | 2024-05-03 22:37 | EDPHYS ---
Physician Documentation [facility] Name: Sia Salazar Age: 78 yrs Sex: Female : 1945 Arrival Date: 05/03/2024 Time: 20:13 Bed 3 Private MD: ED Physician Lai Dumont HPI: 05/03 21:21 This 78 yrs old Female presents to ER via Unassigned with complaints of abdominal pain. rn 21:21 The patient presents with abdominal pain in the lower abdomen. Onset: The rn symptoms/episode began/occurred yesterday. The symptoms do not radiate. Associated signs and symptoms: Pertinent positives: nausea and vomiting, diarrhea, Pertinent negatives: fever, shortness of breath, vomiting blood. Modifying factors: The symptoms are alleviated by nothing, the symptoms are aggravated by touching the area. Severity of pain: At its worst the pain was moderate in the emergency department the pain is unchanged. The patient has not experienced similar symptoms in the past. Patient reports seen here yesterday, no diagnosis, sent home felt better but returns with worsening symptoms. Reports vomiting and diarrhea. Diarrhea is worse than vomiting. No fever but reports chills. No blood in emesis or stool. Patient reports baseline anemia and sometimes requires blood transfusions but denies blood in stool today or yesterday. Hemoglobin yesterday was slightly low but not requiring blood transfusion. Patient reports lower abdominal pain mainly on the left side.. Historical: - Allergies: 21:54 Actos; ay 21:54 Bactrim; ay 21:54 Clindamycin; ay 21:54 Codeine; ay 21:54 Crestor; ay 21:54 Darvocet-N 100; ay 21:54 Erythromycin; ay 21:54 Glimepiride; ay 21:54 Glipizide; ay 21:54 Iodinated Contrast Media - IV Dye; ay 21:54 Januvia; ay 21:54 Lipitor; ay 21:54 metformin; ay 21:54 metronidazole; ay 21:54 Morphine; ay 21:54 PENICILLINS; ay 21:54 Sulfa (Sulfonamide Antibiotics); ay 21:54 Wellbutrin; ay - Home Meds: 21:54 aspirin 81 mg Oral capsule once [Active]; citalopram 40 mg tablet once [Active]; ay docusate sodium 100 mg Oral tablet 2 times per day [Active]; duloxetine 60 mg Oral capsule 1 cap daily [Active]; ferrous sulfate 325 mg (65 mg iron) Oral tablet once [Active]; losartan 100 mg Oral tablet 1 tab daily [Active]; losartan potassium (bulk) 100 % miscellaneous powder daily [Active]; magnesium oxide 400 mg (241.3 mg magnesium) Oral tablet 2 times per day [Active]; metoprolol succinate 25 mg Oral Tablet once [Active]; metoprolol succinate oral 250 mg 1 tab daily [Active]; metoprolol tartrate 25 mg Oral tablet 1 tab daily [Active]; Nifedipine ER Oral 30 mg daily [Active]; Novolin 70/30 [place] Sub-Q 10 unit two times per day before meals [Active]; Novolin R FlexPen 100 unit/mL (3 mL) subcutaneous Insulin Pen 12 units 2 times per day [Active]; octreotide acetate 100 mcg/mL (1 mL) injection Syringe 2 times per day [Active]; octreotide intramuscular once [Active]; octreotide intramuscular once [Active]; octreotide intramuscular once [Active]; octreotide intramuscular once [Active]; octreotide intramuscular once [Active]; octreotide intramuscular once [Active]; omeprazole 20 mg Oral capsule daily [Active]; pantoprazole 40 mg Oral tablet once [Active]; pregabalin 50 mg Oral capsule 1 cap 2 times per day [Active]; Senna Lax 8.6 mg Oral tablet 2 times per day [Active]; spironolactone 25 mg Oral tablet [Active]; spironolacton-hydrochlorothiaz 25-25 mg Oral tablet 1 tab daily [Active]; Stool Softener 50 mg Oral capsule [Active]; tizanidine 1 mg Oral capsule 1 cap once daily at bedtime [Active]; Xarelto 2.5 mg Oral tablet 2 times per day [Active]; octreotide intramuscular once [Active]; octreotide intramuscular [Active]; - PMHx: 21:54 angiodysplasia; bowel AVMs; bronchospastic airway disease; celiac artery stenosis; ay Cerebrovascular disease; chronic mesenteric ischemia; chronic pulmonary embolism; constipation (SBO); COPD; Depression; Diabetes - IDDM; GERD; ibs; ischemic bowel disease; peripheral artery disease; SBO; - PSHx: 21:54 Cholecystectomy; Coronary artery bypass graft; Tonsillectomy; ay - Immunization history:: Adult Immunizations up to date. - Infectious Disease History:: Denies. - Family history:: not pertinent. - Social history:: Smoking status: Patient reports the use of cigarette tobacco products, smokes one-half pack cigarettes per day. - Hospitalizations: : No recent hospitalization is reported. ROS: 21:21 Constitutional: Negative for fever,and weight loss, Cardiovascular: Negative for chest rn pain, palpitations, and edema, Respiratory: Negative for shortness of breath, cough, wheezing, and pleuritic chest pain, Abdomen/GI: Positive for abdominal pain with vomiting and diarrhea : Negative for injury, bleeding, discharge, and swelling, MS/Extremity: Negative for injury and deformity, Skin: Negative for injury, rash, and discoloration, Neuro: Positive for generalized weakness and malaise Exam: 21:21 Constitutional: This is a well developed, well nourished patient who is awake, alert, rn grabbing abdomen, appears uncomfortable Head/Face: Normocephalic, atraumatic. Eyes: Pale conjunctiva ENT: Dry mucous membranes Cardiovascular: Regular rate and rhythm. No pulse deficits. Respiratory: No increased work of breathing, no retractions or nasal flaring. Abdomen/GI: Soft, mild tenderness left lower quadrant and mid abdomen. No peritoneal signs, no masses MS/ Extremity: Pulses equal, no cyanosis. Neuro: Awake and alert, GCS 15 23:20 ECG was reviewed by the Attending Physician. rn Vital Signs: 20:35 BP 120 / 52; Pulse 94; Resp 20; Temp 97.6; Pulse Ox 96% ; ay 22:09 BP 91 / 60; Pulse 83; Resp 20; Pulse Ox 100% on R/A; ay 22:55 BP 97 / 55; Pulse 78; Resp 19; Pulse Ox 100% on R/A; ay 23:30 BP 99 / 67; Pulse 75; Resp 18; Pulse Ox 100% on R/A; al5 23:45 BP 86 / 59; Pulse 89; Resp 20; Pulse Ox 95% on R/A; al5 23:58 Weight 54.43 kg; Height 5 ft. 2 in. ; al5 02/06 00:00 BP 86 / 48; Pulse 73; Resp 20; Pulse Ox 98% on R/A; al5 00:16 BP 86 / 50; Pulse 73; Resp 19; Pulse Ox 97% on R/A; al5 00:30 BP 87 / 52; Pulse 72; Resp 21; Pulse Ox 75% on R/A; al5 00:45 BP 94 / 56; Pulse 78; Resp 23; Pulse Ox 98% on R/A; al5 01:00 BP 81 / 44; Pulse 70; Resp 25; Pulse Ox 95% on R/A; al5 01:05 BP 89 / 75; Pulse 72; Resp 21; Pulse Ox 94% on R/A; al5 01:10 BP 89 / 55; Pulse 70; Resp 23; Pulse Ox 95% on R/A; al5 01:15 BP 84 / 54; Pulse 70; Resp 23; Pulse Ox 95% on R/A; al5 01:20 BP 101 / 50; Pulse 70; Resp 22; Pulse Ox 95% on 4 lpm NC; al5 01:25 BP 92 / 53; Pulse 68; Resp 21; Pulse Ox 98% on 4 lpm NC; al5 01:30 BP 91 / 53; Pulse 70; Resp 21; Pulse Ox 97% on 4 lpm NC; al5 01:40 BP 82 / 45; Pulse 69; Resp 20; Pulse Ox 98% on R/A; al5 01:46 BP 102 / 54; Pulse 70; Resp 19; Pulse Ox 98% on 4 lpm NC; al5 01:50 BP 126 / 65; Pulse 71; Resp 19; Pulse Ox 95% on 4 lpm NC; al5 01:55 BP 93 / 51; Pulse 67; Resp 21; Pulse Ox 94% on 4 lpm NC; al5 02:00 BP 109 / 67; Pulse 69; Resp 20; Pulse Ox 96% on 4 lpm NC; al5 02:26 BP 111 / 51; rn 02:32 BP 112 / 84; Pulse 73; Resp 21; Pulse Ox 100% on 4 lpm NC; al5 05/03 23:58 Body Mass Index 21.95 (54.43 kg, 157.48 cm) al5 Procedures: 01:23 Central Line: the site was prepped with Betadine, in sterile fashion, a triple lumen rn catheter was inserted, in the right femoral vein, in 1 attempts. placement was verified, by blood return, the site was dressed with Tegaderm, using sterile technique, the patient tolerated the procedure, well, Placed using ultrasound. MDM: 05/03 20:16 Medical Screening Exam initiated kb 22:36 Differential diagnosis: bowel obstruction, diverticulitis, gastritis, gastroesophageal rn reflux disease, non-specific abd pain, pancreatitis, Peptic Ulcer Disease, Perf. Duodenal Ulcer, Perf. Gastric Ulcer. Data reviewed: vital signs, nurses notes, lab test result(s), radiologic studies, CT scan, and as a result, I will admit patient. Consideration of Admission/Observation Patient was admitted/placed on observation. Escalation of care including admission/observation considered. Counseling: I had a detailed discussion with the patient and/or guardian regarding the historical points, exam findings, and any diagnostic results supporting the discharge/admit diagnosis, lab results, radiology results, the need for further work-up and treatment in the hospital. Response to treatment: the patient's symptoms have mildly improved after treatment, and as a result, I will admit patient. 23:53 ED course: Lactate 14.5, ordered full 30 cc /kg bolus, first liter being given now, rn sepsis reevaluation complete. Antibiotics administered after blood culture and lactic acid sent.. 05/04 00:08 ED course: Patient with chronic mesenteric ischemia, she is presenting like acute on international specialist mesenteric ischemia at this time. She has elevated lactic acidosis, pain out of proportion to exam and CT findings and now blood pressure in the 90s. Started full 30/kg bolus. Initiated transfer for higher level of care, ICU at capacity here, and may need interventional radiology.. 00:41 ED course: Attempted transfer to multiple [facility] ED facilities after [facility]' did not rn answer transfer call, declined because they did not have specialties needed. Will attempt to other facilities. 00:50 ED course: [facility] called back, they do have a placement for him, I did doc-to-doc and has rn been accepted to [facility].. 01:23 ED course: I personally spent 75 minutes engaged in work directly related to the rn individual patient's care. This does not include any time spent performing procedures. The patient has been deemed critically ill because of acute decompensation, initially had thought of admitting here, had to switch and transfer the patient for critical illness including mesenteric ischemia, resuscitation for shock as well as initiation of pressor as well as organization of transfer to multiple hospitals until 1 finally excepted. 01:23 ED course: Central line placed, Levophed started, blood pressure is improving currently rn 90/54. Sepsis reevaluation complete. 04:31 ED course: Repeat lactic acid up to 19. Unable to get another lactic acid given patient rn was transferred prior to second lactic acid resulting.. 05/03 20:22 Order name: CBC with Diff; Complete Time: 22:32 rn /05 20:22 Order name: CMP; Complete Time: 22:09 rn 05 20:22 Order name: Lipase; Complete Time: 22:09 rn 05/03 21:50 Order name: Manual Differential; Complete Time: 22:32 EDMS 05/03 22:10 Order name: Lactate w/ 2H reflex if indic.; Complete Time: 23:53 rn 05/03 22:10 Order name: Blood Culture Adult (2) rn 05/03 22:10 Order name: Protime (+inr); Complete Time: 23:53 rn 05/03 22:10 Order name: Ptt, Activated; Complete Time: 23:53 rn 05/03 23:24 Order name: Glucose, Ancillary Testing; Complete Time: 23:53 EDMS 05/03 23:46 Order name: CBC with Automated Diff EDMS 05/03 23:46 Order name: Comprehensive Metabolic Panel EDMS 05/04 01:52 Order name: Ghost Lactate-NO COLLECT Timer; Complete Time: 02:36 EDMS 05/03 21:27 Order name: Abdomen ; Complete Time: 22:32 EDMS 05/03 22:10 Order name: EKG; Complete Time: 22:11 rn 05/03 20:22 Order name: IV Saline Lock; Complete Time: 21:28 rn 05/03 20:22 Order name: Labs collected and sent; Complete Time: 21:28 rn 05 22:10 Order name: Accucheck; Complete Time: 23:33 rn 05 22:10 Order name: Cardiac monitoring; Complete Time: 23:33 rn 05 22:10 Order name: EKG - Nurse/Tech; Complete Time: 23:33 rn 05/03 22:10 Order name: IV Saline Lock - Large Bore; Complete Time: 23:10 rn 05 22:10 Order name: O2 Per Protocol; Complete Time: 23:10 rn 05 22:10 Order name: O2 Sat Monitoring; Complete Time: 23:10 rn 05/03 22:10 Order name: Vital Signs; Complete Time: 23:10 rn EC/05 23:20 Rate is 79 beats/min. Rhythm is regular. Left axis deviation noted. QRS is positive in rn lead I and negative in lead aVF. NV interval is normal. QRS interval is normal. No Q waves. T waves are Normal. No ST changes noted. Clinical impression: NSR w/ Non-specific ST/T Changes. Interpreted by me. Reviewed by me. Administered Medications: 21:03 Drug: Famotidine IVP 20 mg IVP once; dilute with 10 mL 0.9% NaCl; give over 2 minutes ay Route: IVP; Site: left hand; 21:28 Follow up: Response: No adverse reaction ay 21:03 Drug: Ondansetron IVP 4 mg IVP once; over 2 minutes Route: IVP; Site: left hand; ay :28 Follow up: Response: No adverse reaction ay 23:10 Drug: Rocephin IV 1 grams IV at calculated rate once; Given slow IV push per pharmacy [id number] instructions Route: IV; Rate: calculated rate; Site: left wrist; 05/04 00:13 Follow up: Response: No adverse reaction; IV Status: Completed infusion al5 05/03 23:10 Drug: NS 0.9% IV 500 ml 500 ml IV at 1 bolus once; to be given as a bolus over 30 jb4 minutes Volume: 500 ml; Route: IV; Rate: 1 bolus; Site: left wrist; 05/04 00:14 Follow up: Response: No adverse reaction; IV Status: Completed infusion; IV Intake: al5 500ml 05/03 23:11 Drug: NS 0.9% IV 500 ml 500 ml IV at 1 bolus once; to be given as a bolus over 30 jb4 minutes Volume: 500 ml; Route: IV; Rate: 1 bolus; Site: left wrist; 05/04 00:14 Follow up: Response: No adverse reaction; IV Status: Completed infusion; IV Intake: al5 500ml 00:13 Drug: NS 0.9% IV (30 ml/kg) 30 ml/kg IV at bolus once; Sepsis Protocol; to be given as al5 a bolus over 90 min Route: IV; Rate: bolus; Site: left wrist; 00:55 Follow up: Response: No adverse reaction; IV Status: Completed infusion; IV Intake: al5 1632.9ml 01:08 Drug: Norepinephrine IV 0.1 mcg/kg/min IV at calculated rate Per protocol; (Standard al5 concentration 4 mg / 250 mL D5W); Recommended max rate 3 mcg/kg/min; Titrate 0.05 mcg/kg/min as often as every 5 minutes to achieve goal (see titration policy); Goal parameter MAP greater than 65 mmHg. Route: IV; Rate: calculated rate; Site: left forearm; 02:01 Follow up: Response: No adverse reaction; Rate change 10 mcg/min al5 02:33 Follow up: Response: No adverse reaction; IV Status: Infusion continued upon transfer al5 01:09 Drug: MethylPrednisoLONE IVP 125 mg IVP once Route: IVP; Site: left forearm; al5 01:41 Follow up: Response: No adverse reaction al5 02:01 Drug: fentaNYL (PF) IVP 25 mcg IVP once Route: IVP; Site: right femoral; al5 02:33 Follow up: Response: No adverse reaction; Pain is decreased al5 Disposition Summary: 05/04/24 00:38 Transfer Ordered Notes: Transfer Location: [facility] ED System rn Reason: Higher level of care rn Condition: Serious(05/04/24 00:38) rn Problem: new(05/04/24 00:38) rn Symptoms: are unchanged(05/04/24 00:38) rn Accepting Physician: (05/04/24 02:34) al5 Diagnosis - Abdominal pain, unspecified rn - Ileus, unspecified rn - Mesenteric Ischemia rn Forms: - Medication Reconciliation Form rn - SBAR 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 Total time: 75 rn minutes Signatures: Dispatcher [employer] EDMS Beatris Freeman, FINE ARTS MODEL-C FINE ARTS MODEL-CkLai Gu MD MD rn Bryson, James, RN RN [id number] Terrie Chu rv1 Morena Griffiths RN RN al5 Macario Figueroa RN RN ay Corrections: (The following items were deleted from the chart) 05/03 20:23 20:23 CBC+H.LAB.BRZ ordered. EDMS EDMS 20:23 20:23 COMPREHENSIVE METABOLIC PANEL+C.LAB.BRZ ordered. EDMS EDMS 20:23 20:23 LIPASE+C.LAB.BRZ ordered. EDMS EDMS 20:23 20:23 Urinalysis+U.LAB.BRZ ordered. EDMS EDMS 21:27 20:23 Abdomen Pelvis W Con+CT.RAD.BRZ ordered. EDMS EDMS 22:44 22:37 Telemetry/MedSurg (Inpatient) rn rv1 22:44 22:37 rn rv1 05/04 00:37 02 22:37 Inpatient Admission rn rn 05/04 00:37 05/03 22:37 Carl George rn rn 05/04 00:37 05/03 22:37 Stable rn rn 05/04 00:37 05/03 22:37 new rn rn 05/04 00:37 05/03 22:37 have improved rn rn 05/04 00:37 05 22:37 Standard rn rn 05/04 00:37 05 22:37 Infectious gastroenteritis and colitis, unspecified rn rn 05/04 00:37 05/03 22:37 Vomiting, unspecified rn rn 05/04 00:37 05/03 22:37 Diarrhea, unspecified rn rn 05/04 00:37 05 22:37 Acidosis rn rn 05/04 00:37 05 22:44 BR ER HOLD rv1 rn 05/04 00:37 05 22:44 ERHOLD- rv1 rn 05/04 02:34 00:38 rn al5
[2024-05-03] MEDS ORDERED: CEFTRIAXONE 1000 MG/VIAL ONE (23:01)
[2024-05-03] MEDS ORDERED: NA CHLORIDE 0.9% 1,000 ML ONE (23:01)
[2024-05-03 23:38] LABS: PT Prothrombin Time 16.1 SECONDS (9.4-12.5); PTT, Activated Partial Thromb 34.8 SECONDS (24.3-36.9); Protime INR 1.54
[2024-05-03] MEDS ORDERED: NA CHLORIDE 0.9% 1,000 ML IV SCH (23:45)
[2024-05-04] MEDS ORDERED: NA CHLORIDE 0.9% 1,000 ML ONE (00:06)
[2024-05-04] MEDS ORDERED: NOREPINEPHRINE BITARTRATE/D5W 4 MG/250 ML BAG IV ONE (00:57)
[2024-05-04] MEDS ORDERED: METHYLPREDNISOLONE 125 MG INJ ONE (00:57)
[2024-05-04] MEDS ORDERED: METRONIDAZOLE 500mg IVPB 500 MG/100 ML BAG IV SCH (01:00)
[2024-05-04] MEDS ORDERED: FENTANYL CITR 100 MCG/2 ML ONE (01:58)
[2024-05-04 02:41] VITALS: TEMP 97.6
[2024-05-04 03:07] VITALS: BP 112/84; O2SAT 100
--- NOTE | 2024-05-04 11:26 | EKG ---
Test Date: 2024-05-03 Test Time: 23:17:58 Skirt Clipper: LUCERO MEASUREMENT RESULTS: Intervals: Rate: 79 OR: 152 QRSD: 118 QT: 460 QTc: 527 [place]: P: 82 OR: 152 QRS: -50 T: 98 INTERPRETIVE STATEMENTS: Normal sinus rhythm Left axis deviation Anteroseptal infarct, age undetermined Prolonged QT Abnormal ECG Compared to ECG 05/02/2024 14:04:45 Left-axis deviation now present Prolonged QT interval now present Myocardial infarct finding still present Electronically Signed On 05-04-24 11:24:19 EGG TESTER by Baljinder Harrison
== END 2024-05-04 02:34 | disposition short-term general hospital (02) ==
LOC: ER 20:13 → ERHOLD 23:41 → UNDOADMIN 23:41 → ER 05-04 02:34
DX: K56.7 Ileus, unspecified (principal); K55.059 Acute (reversible) ischemia of intestine, part and extent unspecified; R11.2 Nausea with vomiting, unspecified; E11.9 Type 2 diabetes mellitus without complications; J44.9 Chronic obstructive pulmonary disease, unspecified; F17.210 Nicotine dependence, cigarettes, uncomplicated; Z79.01 Long term (current) use of anticoagulants; Z79.82 Long term (current) use of aspirin; Z79.4 Long term (current) use of insulin; Z95.1 Presence of aortocoronary bypass graft
CPT/HCPCS: 93005; 87040 ×2; 85025; 36415; 87205 ×2; 85610; 82947; 83605 ×2; 85730; 87077 ×2; 87186 ×2; 83690; 80053; 74176; 99285; 36556; J2919; J2405; J7030 ×2; J0696; J3010